=== PATIENT | female | born 1950 | race Two or more races ===

== ENCOUNTER 2021-02-28 17:39 | Inpatient (IN) | payer MEDICARE, OTHER ==
[~2021-02-28] VITALS: Ht 160 cm; Wt 70.3 kg
--- NOTE | 2021-02-28 17:50 | NUR ---
RT NOTE: PATIENT RECEIVED IN ER WITH PORTEX #[address] PATIENT PLACED ON MECHANICAL VENT. VENT SETTINGS: AC 18, VT 500, FI02 40%, +5 PEEP. VENT ALARMS SET AND AUDIBLE. AMBU BAG AT [facility].
[2021-02-28] MEDS ORDERED: *INS REG3 IJ (18:15)
[2021-02-28] MEDS ORDERED: ACET325T53 GT (18:15)
[2021-02-28] MEDS ORDERED: PANT40TA49 GT (18:15)
[2021-02-28] MEDS ORDERED: IPRA0.2S49 IH (18:15)
[2021-02-28] MEDS ORDERED: EPOE4000 IJ (18:15)
[2021-02-28] MEDS ORDERED: CHLO118L4 MM (18:15)
[2021-02-28] MEDS ORDERED: MICA100V3 IV (18:15)
[2021-02-28] MEDS ORDERED: LATA2.5D15 OP (18:15)
[2021-02-28] MEDS ORDERED: SEVE800T8 GT (18:15)
[2021-02-28] MEDS ORDERED: CEFT2.5V IV (18:15)
[2021-02-28] MEDS ORDERED: TOBR300A5 IH (18:15)
[2021-02-28] MEDS ORDERED: METR500T GT (18:15)
[2021-02-28] MEDS ORDERED: DORZ10DR10 OP (18:15)
[2021-02-28] MEDS ORDERED: ALBU1.257 IH (18:15)
[2021-02-28] MEDS ORDERED: METO-295 PO (18:15)
--- NOTE | 2021-02-28 18:16 | NUR ---
[id number] FRM DIALYSIS FOR NOTED HIGH BLOOD PRESSURE. UNABLE TO FINISH DIALYSIS. PT EYES CLOSED NON VERBAL. ON VENT O2 SAT 100%. PLACED ON RAW STOCK DRIER TENDER, SR. PT SEEN & EVAL'D BY DR. THAO. WILL CONT TO MONITOR.
[2021-02-28] MEDS ORDERED: CEFEPIME 1 GM in IV D5W 50 ML IV ONE (18:30)
[2021-02-28] MEDS ORDERED: VANCOMYCIN 1 GM in IV D5W 250 ML IV ONE (18:30)
[2021-02-28 19:21] LABS: CALCIUM, SERUM 9.6 mg/dL (8.5-10.1); CARBON DIOXIDE 28 mmol/L (21-32); CHLORIDE 99 mmol/L (98-107); CREATININE 1.8 mg/dL (0.6-1.3); GLUCOSE 145 mg/dL (74-106); POTASSIUM 3.5 mmol/L (3.5-5.1); SODIUM SERUM 139 mmol/L (136-145); UREA NITROGEN, BLOOD 35 mg/dL (7-18)
[2021-02-28 19:27] LABS: ALANINE AMINOTRANSFERASE 11 U/L (12-78); ALBUMIN 2.3 g/dL (3.4-5.0); ALKALINE PHOSPHATASE 263 U/L (46-116); ASPARTATE AMINOTRANSFERASE 17 U/L (15-37); BILIRUBIN,DIRECT 0.2 mg/dL (0.0-0.2); BILIRUBIN,TOTAL 0.6 mg/dL (0.2-1.0); TOTAL PROTEIN, SERUM 7.9 g/dL (6.4-8.2)
[2021-02-28 19:46] LABS: BASOPHILS % (AUTO) 0.1 % (0.0-2.0); EOSINOPHILS % (AUTO) 0.2 % (0.0-6.0); HEMATOCRIT 26 % (33-45); HEMOGLOBIN 8.2 g/dL (11.5-14.8); LYMPHOCYTES # (AUTO) 0.4 /CMM (0.8-4.8); LYMPHOCYTES % (AUTO) 1.6 % (20.0-44.0); MEAN CORPUSCULAR HGB CONC 32 g/dl (31.0-36.0); MEAN CORPUSCULAR VOLUME 91 fL (82-100); MONOCYTES # (AUTO) 0.2 /CMM (0.1-1.30); NEUTROPHILS # (AUTO) 23.5 /CMM (1.8-8.9); NEUTROPHILS % (AUTO) 97.1 % (43.0-81.0); PLATELET COUNT (AUTO) 383 /CMM (150-450); RED BLOOD CELL COUNT(AUTO) 2.88 MIL/uL (4.0-5.2); WHITE BLOOD COUNT (AUTO) 24.2 K/uL (4.3-11.0)
--- NOTE | 2021-02-28 19:48 | NUR ---
DR MARTINEZ PAGED PER DR THAO
[2021-02-28 20:10] LABS: BAND % (MANUAL) 4 % (0.0-5.0); LYMPHOCYTES % (MANUAL) 2 % (16-48); MONOCYTES % (MANUAL) 1 % (0-11.0); NEUTROPHILS % (MANUAL) 93 (42-76)
[2021-02-28] MEDS ORDERED: ACETAMINOPHEN 650 MG/20.3 ML UDC ONE (20:18)
[2021-02-28] MEDS ORDERED: ACETAMINOPHEN SUSP 80 MG/0.8 ML BOTTLE GT ONE (20:30)
[2021-02-28] MEDS ORDERED: IV NS 0.9% 1,000 ML BAG IV ONE (20:30)
--- NOTE | 2021-02-28 20:36 | NUR ---
MEDICATED FOR FEVER PER ERMD ORDER, PT RESHMA WELL. PT STABLE, RR EVEN & UNLABORED. ON TELE, SR. WILL CONT TO MONITOR.
[2021-02-28 21:54] LABS: BILIRUBIN,URINE NEGATIVE (NEGATIVE); COLOR,URINE YELLOW (YELLOW); LEUKOCYTE ESTERASE ,URINE MODERATE (NEGATIVE); NITRITE, URINE NEGATIVE (NEGATIVE); PROTEIN,URINE >=300 mg/dl (NEGATIVE); UGLUCOSE NEGATIVE (NEGATIVE); UROBILINOGEN,URINE 0.2 EU/dL (0.2)
[2021-02-28 21:59] LABS: BACTERIA,URINE 4+ /HPF (None Seen); SQUAMOUS EPITHELIAL CELL,UR 0-2 /HPF (None Seen); WBC,URINE 21-50 /HPF (0-3)
--- NOTE | 2021-02-28 22:08 | NUR ---
CALLED FLOOR TO GIVEN REPORT, RN NOT AVAILABLE.
--- NOTE | 2021-02-28 22:16 | NUR ---
REPORT GIVEN TO NIMA REDDY FOR OTIS.
[2021-02-28] MEDS ORDERED: EPOETIN ALFA (4000 UNIT) 4,000 UNIT/ML VIAL IJ SCH (23:00)
[2021-02-28] MEDS ORDERED: TEMAZEPAM 15 MG CAPSULE GT PRN (23:30)
[2021-02-28] MEDS ORDERED: ONDANSETRON HCL/PF 4 MG/2 ML VIAL IVP PRN (23:30)
[2021-03-01] VITALS: BP 143/46
[2021-03-01] MEDS ORDERED: ALBUTEROL HALF STRENGTH 1.25 MG/3 ML VIAL.NEB IH SCH
[2021-03-01] MEDS ORDERED: IPRATROPIUM NEB FS 0.5 MG/2.5 ML AMPUL.NEB IH SCH
--- NOTE | 2021-03-01 03:11 | NUR ---
RN notes Admitted a 71 yr old female from ER via stretcher with BP of 143/46, RR 26, HR 85 and an elevated temperature of 100.8. Tylenol was given at ER. On vent, tolerating well. No distress noted. Breathing even and unlabored. Obtunded. No physical manifestation of pain or discomfort. Skin assessment done. Noted with large sacrum pressure sore. Bed bath given. Kept clean and dry. Will endorse to next shift for continuity of care
[2021-03-01 04:00] VITALS: BP 145/28
[2021-03-01] MEDS: NEPRO 1,000 ML BOTTLE GT PRN (05:05)
[2021-03-01 06:43] LABS: BASOPHILS # (AUTO) 0.1 /CMM (0.0-0.2); BASOPHILS % (AUTO) 0.3 % (0.0-2.0); EOSINOPHILS % (AUTO) 0.3 % (0.0-6.0); HEMATOCRIT 22 % (33-45); HEMOGLOBIN 7.1 g/dL (11.5-14.8); LYMPHOCYTES # (AUTO) 1.5 /CMM (0.8-4.8); LYMPHOCYTES % (AUTO) 5.2 % (20.0-44.0); MEAN CORPUSCULAR HGB CONC 32 g/dl (31.0-36.0); MEAN CORPUSCULAR VOLUME 89 fL (82-100); MONOCYTES # (AUTO) 1.6 /CMM (0.1-1.30); MONOCYTES % (AUTO) 5.6 % (2.0-12.0); NEUTROPHILS # (AUTO) 25.5 /CMM (1.8-8.9); NEUTROPHILS % (AUTO) 88.6 % (43.0-81.0); PLATELET COUNT (AUTO) 337 /CMM (150-450); WHITE BLOOD COUNT (AUTO) 28.8 K/uL (4.3-11.0)
[2021-03-01 07:28] LABS: CALCIUM, SERUM 9.2 mg/dL (8.5-10.1); CARBON DIOXIDE 28 mmol/L (21-32); CHLORIDE 100 mmol/L (98-107); CREATININE 2.2 mg/dL (0.6-1.3); GLUCOSE 139 mg/dL (74-106); MAGNESIUM 2.3 mg/dL (1.8-2.4); PHOSPHORUS 1.9 mg/dL (2.5-4.9); POTASSIUM 3.2 mmol/L (3.5-5.1); SODIUM SERUM 134 mmol/L (136-145); UREA NITROGEN, BLOOD 39 mg/dL (7-18)
[2021-03-01 07:29] LABS: CHOLESTEROL 87 mg/dL (<200); HDL CHOLESTEROL 25 mg/dL (40-60); LDL 32 mg/dL (0-99); THYROID STIMULATING HORMONE 1.112 uIU/mL (0.358-3.74); TRIGLYCERIDES 278 mg/dL (30-150)
[2021-03-01] MEDS ORDERED: PANTOPRAZOLE 40 MG TABLET.DR PO SCH (07:30)
[2021-03-01] MEDS: IPRATROPIUM NEB FS 0.5 MG/2.5 ML AMPUL.NEB NEB SCH ×3 (07:51→19:59)
[2021-03-01] MEDS: ALBUTEROL FS 2.5 MG/3 ML VIAL.NEB NEB SCH ×3 (07:52→19:59)
[2021-03-01 08:00] VITALS: BP 144/33
[2021-03-01] MEDS ORDERED: POTASSIUM CHLORIDE 20 MEQ TAB.PRT.SR PO ONE (08:00)
[2021-03-01 08:52] LABS: IRON, SERUM 15 ug/dl (50-175); TOTAL IRON BINDING CAPACITY 92 ug/dl (250-450)
[2021-03-01] MEDS ORDERED: CEFEPIME 1 GM in IV D5W 50 ML IV SCH ×2 (09:00→18:00)
[2021-03-01] MEDS: HEPARIN SODIUM, PORCINE 5000 UNITS/1 ML VIAL SQ SCH ×2 (09:00→21:41)
[2021-03-01] MEDS: METOCLOPRAMIDE HCL 10 MG TABLET PO SCH ×3 (09:40→17:40)
[2021-03-01] MEDS: SEVELAMER CARBONATE 800 MG POWD.PACK GT SCH ×3 (09:40→17:39)
[2021-03-01] MEDS: CHLORHEXIDINE GLUCONATE 15 ML UDC MM SCH ×2 (09:40→17:38)
[2021-03-01] MEDS: DORZOLAMIDE OPTH 2% 10 ML BOTTLE OP SCH ×2 (09:41→17:39)
[2021-03-01] MEDS ORDERED: POTASSIUM CHLORIDE 20 MEQ POWDER PACKET GT ONE (10:00)
--- NOTE | 2021-03-01 10:20 | NUR ---
RN NOTE HELD HEPARIN HGB 7.1
[2021-03-01 12:00] VITALS: BP 161/44
[2021-03-01] MEDS ORDERED: HYDR100T27 PO (12:20)
[2021-03-01] MEDS ORDERED: ISOS20TA8 PO (12:20)
[2021-03-01] MEDS ORDERED: AMLO-213 PO (12:20)
[2021-03-01] MEDS ORDERED: MINO2.5T PO (12:20)
[2021-03-01] MEDS ORDERED: CARV25TA2 PO (12:20)
[2021-03-01] MEDS ORDERED: CLON0.2T PO (12:20)
[2021-03-01 16:00] VITALS: BP 164/40
[2021-03-01] MEDS ORDERED: NEUTRA PHOS 1 POWD.PACKET GT ONE (16:00)
--- NOTE | 2021-03-01 16:34 | NUR ---
RN NOTE CONTACTED MD TO RECONCILE MEDICATIONS. NO BP MEDS ON MAR
--- NOTE | 2021-03-01 17:46 | NUR ---
RT END OF THE SHIFT REPORT, PT. 71 Y OLD FEMALE TRACH PORTEX # 7 ON VENT WITH NOTED SETTINGS, ALARMS ARE SET AND FUNCTIONAL, EQUAL CHEST RISE NOTED, VENT PLUGGED INTO RED OUTLET, AMBU BAG REMAIN AT THE BEDSIDE. B/S DIMINISHED BILATERALLY TX'S GIVEN INLINE RESHMA. WELL NO ADVERSE REACTION NOTED. FAMILY MEMBER AT THE BEDSIDE. SUCTIONED FOR MINIMAL AMOUNT OF SECRETIONS, NO DISTRESS NOTED T/O DAY HME CHANGED, STEAM PIPE FITTER DONE, PT. RESHMA. VENT SETTINGS WITH NO CHANGES. REPORT WILL BE PASS TO SUPERVISOR RECORDS CHANGE. Addendum: 03/01/21 at 1749 by TYSON REA RT Amended: Links added.
[2021-03-01] MEDS: AMLODIPINE BESYLATE 10 MG TABLET PO SCH (18:52)
[2021-03-01] MEDS: hydrALAZINE HCL 50 MG TABLET PO SCH (18:53)
[2021-03-01] MEDS ORDERED: MINOXIDIL (2.5MG) 2.5 MG TABLET PO PRN (19:00)
[2021-03-01 20:00] VITALS: BP_SYST 151; BP_DIAS 56; BP_DIAS 72
[2021-03-01] MEDS ORDERED: VANCOMYCIN HCL 0.75 GM in IV D5W 250 ML IV SCH (20:00)
[2021-03-01] MEDS ORDERED: MEROPENEM 500 MG in IV NS 0.9% 50 ML IV ONE (21:00)
[2021-03-01] MEDS: CARVEDILOL 12.5 MG TABLET PO SCH (21:39)
--- NOTE | 2021-03-01 21:40 | NUR ---
RN NOTES, PATIENT ENDORSED TO JOSÉ LUIS IN STABLE CONDITION FOR CONTINUATION OF CARE.
[2021-03-01] MEDS: LATANOPROST EYE DROP 0.005% 2.5 ML BOTTLE OP SCH (21:41)
--- NOTE | 2021-03-01 21:45 | NUR ---
RN NOTE RECEIVED PT IN BED, PT OPENS HER EYES TO TOUCH, ON VENT VIA TRACH SATING 100%, PT HAS G TUBE FEEDING NEPRO AT 40 ML/HR CHECKED FOR REPLACEMENT, SAFETY MEASURES IN PLACE.
[2021-03-01] MEDS ORDERED: MEROPENEM 500 MG VIAL IV ONE (22:16)
--- NOTE | 2021-03-01 23:02 | NUR ---
rn note received lab for blood cx gram negative kulwinder, informed dr scott, no new order at this time.
[2021-03-02] VITALS (8 sets, daily range): BP systolic 125–173; BP diastolic 31–62
[2021-03-02] MEDS: IPRATROPIUM NEB FS 0.5 MG/2.5 ML AMPUL.NEB NEB SCH ×4 (01:58→20:15)
[2021-03-02] MEDS: ALBUTEROL FS 2.5 MG/3 ML VIAL.NEB NEB SCH ×4 (01:58→20:15)
[2021-03-02 06:32] LABS: BASOPHILS # (AUTO) 0.1 /CMM (0.0-0.2); BASOPHILS % (AUTO) 0.4 % (0.0-2.0); EOSINOPHILS % (AUTO) 0.7 % (0.0-6.0); HEMATOCRIT 22 % (33-45); LYMPHOCYTES # (AUTO) 1.5 /CMM (0.8-4.8); LYMPHOCYTES % (AUTO) 10.7 % (20.0-44.0); MEAN CORPUSCULAR HGB CONC 32 g/dl (31.0-36.0); MEAN CORPUSCULAR VOLUME 89 fL (82-100); MONOCYTES # (AUTO) 1.3 /CMM (0.1-1.30); MONOCYTES % (AUTO) 8.9 % (2.0-12.0); NEUTROPHILS # (AUTO) 11.5 /CMM (1.8-8.9); NEUTROPHILS % (AUTO) 79.3 % (43.0-81.0); PLATELET COUNT (AUTO) 350 /CMM (150-450); RED BLOOD CELL COUNT(AUTO) 2.47 MIL/uL (4.0-5.2); WHITE BLOOD COUNT (AUTO) 14.5 K/uL (4.3-11.0)
[2021-03-02 06:47] LABS: CALCIUM, SERUM 9.2 mg/dL (8.5-10.1); CARBON DIOXIDE 27 mmol/L (21-32); CHLORIDE 103 mmol/L (98-107); CREATININE 2.7 mg/dL (0.6-1.3); GLUCOSE 92 mg/dL (74-106); MAGNESIUM 2.5 mg/dL (1.8-2.4); POTASSIUM 4.1 mmol/L (3.5-5.1); SODIUM SERUM 140 mmol/L (136-145); UREA NITROGEN, BLOOD 50 mg/dL (7-18)
--- NOTE | 2021-03-02 06:49 | NUR ---
RN NOTE RECEIVED LAB RESULT HGB 7.0, INFORMED DR VANCE NO NEW ORDER.
--- NOTE | 2021-03-02 07:18 | NUR ---
RN REPORT GIVEN TO ONCOMING SHIFT FOR OTIS.
[2021-03-02] MEDS: PANTOPRAZOLE 40 MG/PACK PACK GT SCH (08:20)
[2021-03-02] MEDS: CHLORHEXIDINE GLUCONATE 15 ML UDC MM SCH ×2 (08:20→16:32)
[2021-03-02] MEDS: CARVEDILOL 12.5 MG TABLET PO SCH ×2 (08:21→20:14)
[2021-03-02] MEDS: SEVELAMER CARBONATE 800 MG POWD.PACK GT SCH ×3 (08:21→17:31)
[2021-03-02] MEDS: hydrALAZINE HCL 50 MG TABLET PO SCH ×3 (08:21→17:29)
[2021-03-02] MEDS: ISOSORBIDE DINITRATE (20MG) 20 MG TABLET PO SCH ×3 (08:21→17:29)
[2021-03-02] MEDS: METOCLOPRAMIDE HCL 10 MG TABLET PO SCH ×3 (08:21→17:32)
[2021-03-02] MEDS: DORZOLAMIDE OPTH 2% 10 ML BOTTLE OP SCH ×2 (08:23→16:33)
[2021-03-02] MEDS: HEPARIN SODIUM, PORCINE 5000 UNITS/1 ML VIAL SQ SCH ×2 (08:27→20:38)
--- NOTE | 2021-03-02 09:19 | NUR ---
RN OPENING NOTE RECEIVED REPORT FROM PM NURSE.PATIENT IN BED.AWAKE.NON VERBAL.TRACH TO VENT DEPENDANT.BREATHING EVEN AND NORMAL.NO SOB NO DISTRESS NOTED.TOLERATING SETTINGS WELL.IV LINE ON XIOMARA PICCLINE IS INTACT AND PATENT.ON GTF NEPRO@40ML/HR.BED IS LOW AND IN LOCKED POSITION.CALL LIGHT IN REACH.BED ALARM IS ON.SEX3.WILL CONTINUE TO MONITOR.
[2021-03-02 09:50] LABS: BAND % (MANUAL) 2 % (0.0-5.0); LYMPHOCYTES % (MANUAL) 9 % (16-48); MONOCYTES % (MANUAL) 7 % (0-11.0); MYELOCYTES % 1 % (0-0); NEUTROPHILS % (MANUAL) 81 (42-76)
[2021-03-02] MEDS: PROSOURCE / PROSTAT (PYXIS) 30 ML UDC GT SCH ×2 (12:48→16:32)
--- NOTE | 2021-03-02 13:00 | NUR ---
EN NOTE BLADER SCAN DONE.170ML.WILL CONTINUE TO MONITOR.
--- NOTE | 2021-03-02 16:00 | NUR ---
RN NOTE MADE AWARE ABOUT PATIENT HGB AND PLATELET COUNT .OK TO GIVE HEPARIN.WILL CONTINUE TO MONITOR.
[2021-03-02] MEDS: CLONIDINE HCL 0.1 MG TABLET PO PRN (16:32)
[2021-03-02] MEDS: NEPRO 1,000 ML BOTTLE GT PRN (17:15)
[2021-03-02] MEDS: AMLODIPINE BESYLATE 10 MG TABLET PO SCH (17:31)
--- NOTE | 2021-03-02 18:37 | NUR ---
RN CLOSING NOTE PATIENT IN BED.AWAKE.NON VERBAL.TRACH TO VENT DEPENDANT.BREATHING EVEN AND NORMAL.NO SOB NO DISTRESS NOTED.TOLERATING SETTINGS WELL.IV LINE ON XIOMARA PICCLINE IS INTACT AND PATENT.ON GTF NEPRO@40ML/HR.BED IS LOW AND IN LOCKED POSITION.CALL LIGHT IN REACH.BED ALARM IS ON.SRX3.FAMILY AT BEDSIDE.BP WAS HIGH.PRN BP MEDS GIVEN .BP 161/56.PROGRESSING EXPECTED.WOUND CULTURE COLLECTED FOR SACRAL WOUND.WILL ENDORSE TO PM NURSE FOR OTIS.
--- NOTE | 2021-03-02 19:20 | NUR ---
RN OPENING NOTE RECEIVED PATIENT IN BED RESTING ALERT ORIENTED XO NONVERBAL ON MECHANICAL VENT TRACH PORTEX #7 AC 18 TV 500 FIO2:40% PEEP 5 O2:100% IV SITE IS ON LEFT UPPER ARM PICC LINE INTACT PATENT ON G-TUBE FEEDING ON NEPRO 40CC/HR CHECKED PLACEMENT IN PLACE NO RESIDUAL NOTED, HEAD OF THE BED ELEVATED,SAFETY MEASURE IMPALEMENT BED IN LOW POSITION AND LOCKED CONTINUE TO MONITOR.
--- NOTE | 2021-03-02 20:00 | NUR ---
RN NOTE BLADDER SCAN DONE 0ML URINE IN BLADDER CONTINUE TO MONITOR.
--- NOTE | 2021-03-02 20:30 | NUR ---
RN NOTE LAB CALLED WITH REPORT PATIENT BLOOD CULTURE IS GRAM NEGATIVE BASILICUS NOTIFIED RILEY WALDEN WITH NO NEW ORDER CONTINUE TO MONITOR
[2021-03-02] MEDS: HYDROCODONE/APAP 5/325MG TABLET GT PRN (20:45)
[2021-03-02] MEDS ORDERED: MEROPENEM 500 MG in IV NS 0.9% 50 ML IV SCH (21:00)
[2021-03-02] MEDS: LATANOPROST EYE DROP 0.005% 2.5 ML BOTTLE OP SCH (21:25)
--- NOTE | 2021-03-02 23:11 | NUR ---
RN NOTE GAVE REPORT TO YOLANDE FOR CONTINUATION OF CARE.
--- NOTE | 2021-03-02 23:25 | NUR ---
RN NOTES, RECEIVED PATIENT FROM SALINA RN FOR CONTINUATION OF CARE, PATIENT ASLEEP AROUSABLE TO TACTILE STIMULI, ON MECHANICAL VENTILATOR WITH NO DISTRESS, WILL CONTINUE TO MONITOR CLOSELY.
[2021-03-03] VITALS (10 sets, daily range): BP systolic 102–168; BP diastolic 33–82
[2021-03-03] MEDS: CLONIDINE HCL 0.1 MG TABLET PO PRN
[2021-03-03] MEDS: IPRATROPIUM NEB FS 0.5 MG/2.5 ML AMPUL.NEB NEB SCH ×4 (02:16→20:05)
[2021-03-03] MEDS: ALBUTEROL FS 2.5 MG/3 ML VIAL.NEB NEB SCH ×4 (02:16→20:05)
[2021-03-03 06:43] LABS: CALCIUM, SERUM 9.4 mg/dL (8.5-10.1); CARBON DIOXIDE 28 mmol/L (21-32); CHLORIDE 103 mmol/L (98-107); CREATININE 3.2 mg/dL (0.6-1.3); GLUCOSE 129 mg/dL (74-106); POTASSIUM 4.7 mmol/L (3.5-5.1); SODIUM SERUM 142 mmol/L (136-145); UREA NITROGEN, BLOOD 63 mg/dL (7-18)
--- NOTE | 2021-03-03 06:45 | NUR ---
RN CLOSING NOTE, PATIENT ON MECHANICAL VENTILATOR, NONVERBAL ASLEEP, AROUSABLE TO TACTILE STIMULI, NO SIGNS OF RESP DISTRESS OR SOB, NSR IN TELE MONITOR THROUGHOUT THE NIGHT, NO SIGNIFICANT CHANGE IN CONDITION DURING THE NIGHT, ON Q8HR BLADDER SCAN WITH ORDER TO STRAIGHT CATH IF MORE THAN 300ML, SO FAR A SMALL AMOUNT OF URINE NOTED IN THE LAST CHECK, ALL SAFETY PRECAUTIONS IN PLACE, HOB ELEVATED AT ALL TIMES, WILL ENDORSE CONTINUITY OF CARE TO ONCOMING NURSE.
--- NOTE | 2021-03-03 08:00 | NUR ---
PATIENT OBSERVED IN BED, AWAKE, RESPONSIVE TO TOUCH, UNABLE TO VERBALIZE NEEDS, NEEDS ANTICIPATED, HOB ELEVATED FOR ASPIRATION PRECAUTION ON GT FEEDING PATENT UPON AUSCULTATION, LEFT UPPER ARM PICC LINE PATENT, ON HEMO DIALYSIS, ON TRACHEOSTOMY WITH MECHANICAL VENTILATOR, BREATHING EVEN AND UNLABORED, WILL CONTINUE TO MONITOR RESIDENT, BED LOW,CALL LIGHT WITHIN REACH, SAFETY MEASURES OBSERVED.
[2021-03-03] MEDS: SEVELAMER CARBONATE 800 MG POWD.PACK GT SCH ×3 (08:58→17:29)
[2021-03-03] MEDS: METOCLOPRAMIDE HCL 10 MG TABLET PO SCH ×3 (08:58→17:29)
[2021-03-03] MEDS: HEPARIN SODIUM, PORCINE 5000 UNITS/1 ML VIAL SQ SCH ×2 (09:00→21:00)
[2021-03-03] MEDS: PANTOPRAZOLE 40 MG/PACK PACK GT SCH (09:03)
[2021-03-03] MEDS: CHLORHEXIDINE GLUCONATE 15 ML UDC MM SCH ×2 (09:04→17:29)
[2021-03-03] MEDS: CARVEDILOL 12.5 MG TABLET PO SCH ×2 (09:05→20:58)
[2021-03-03] MEDS: hydrALAZINE HCL 50 MG TABLET PO SCH ×3 (09:06→17:30)
[2021-03-03] MEDS: ISOSORBIDE DINITRATE (20MG) 20 MG TABLET PO SCH ×3 (09:06→17:30)
[2021-03-03] MEDS: PROSOURCE / PROSTAT (PYXIS) 30 ML UDC GT SCH ×3 (09:08→17:29)
[2021-03-03] MEDS: DORZOLAMIDE OPTH 2% 10 ML BOTTLE OP SCH ×2 (09:20→17:40)
--- NOTE | 2021-03-03 09:38 | NUR ---
SUMI RN NOTE DR FABIAN NOTIFIED THAT YESTERDAY HG 7.0 ORDERED TO TRANSFUSE 1 UNIT PRBC ALSO ORDERED HOLD HEPARIN AT THIS TIME, WOUND CARE NURSE AT BEDSIDE NEW ORDER GIVEN ,HD NURSE AT BEDSIDE WILL START HD ORDERED WILL CONT TO MONITOR
--- NOTE | 2021-03-03 09:42 | NUR ---
WOUND CARE CONSULT: PT PRESENTS WITH SACRAL STAGE 4 ULCER AND MULTIPLE AREAS OF DISCOLORATION TO EXTREMITIES WELL RASHES TO ABDOMINAL/GROIN FOLDS, BUTTOCKS AND PERINEUM, PRESENT ON ADMISSION. DR CAREN MARTINEZ NOTIFIED OF SURGICAL CONSULT FOR SACRAL WOUND. RECOMMENDATIONS MADE FOR SKIN PROTECTION AND WOUND CARE. DISCUSSED WITH NURSING STAFF. FIRST STEP LOW AIRLOSS MATTRESS IS ON ORDER. MD IN AGREEMENT WITH PLAN OF CARE.
--- NOTE | 2021-03-03 10:00 | NUR ---
REFORESTATION WORKER NOTE UNABLE TO DO BLADDER SCAN ,PATIENT HAS HD AT THIS TIME
[2021-03-03] MEDS: DAKINS QUARTER STRENGTH (0.125%) 480 ML BOTTLE TOP SCH (10:57)
--- NOTE | 2021-03-03 11:50 | NUR ---
INTEGRATED LOGISTICS PROGRAMS DIRECTOR NOTE HD COMPLETED 1L OF FLUIDS REMOVED BP 120/78
--- NOTE | 2021-03-03 13:00 | NUR ---
POSTDOCTORAL RESEARCH ASSOCIATE NOTE US LT ARM DOING NOW PER MD ORDER NOTED PICC LINE IS NOT WORKING WELL OK TO REINSERT NEW LINE
[2021-03-03] MEDS: ACETAMINOPHEN 325 MG TABLET MC PRN (13:12)
--- NOTE | 2021-03-03 14:12 | NUR ---
RESTAURANT OPERATIONS MANAGER NOTE ASSESS BLOOD TRASNFUSION REACTION TEMP OF 102.8, HR OF 101 STOP INFUSION PER PROTOCOL, DR. BEACH, CAREN MADE AWARE, OK TO STOP INFUSION, ORDERED BLOOD TRANSFUSION REACTION WORK UP STAT, ORDER NOTED AND CARRIED OUT, PATIENT EVEN AND UNLABORED REACTION, NOT IN DISTRESS. WILL CONTINUE TO MONITOR, LEFT UPPER ARM ULTRASOUND DONE, MD AWARE WAITING FOR FURTHER ORDERS.
[2021-03-03] MEDS ORDERED: EPOETIN ALFA (10,000 UNIT) 10,000 UNIT/ML VIAL IV ONE (14:30)
[2021-03-03] MEDS ORDERED: EPOETIN ALFA (4000 UNIT) 4,000 UNIT/ML VIAL IJ SCH (15:00)
--- NOTE | 2021-03-03 15:21 | NUR ---
PER DR. BEACH HOLD DISCHARGE DUE TO FEVER DURING BLOOD TRANSFUSION AND WITH PRELIMINARY REPORT DVT LEFT UPPER ARM
[2021-03-03] MEDS ORDERED: GENTAMICIN 120 MG in IV D5W 100 ML IV ONE (16:00)
--- NOTE | 2021-03-03 16:45 | NUR ---
telephone installer note called to dr Fan notifyed that patient has tremors upper enormities order Ativan 1 mg ivp order carried out
--- NOTE | 2021-03-03 16:48 | NUR ---
CAREER RESOURCE SPECIALIST NOTE ATIVAN GIVEN ORDERED, BP OF 125/59, HR OF 89, 02 SAT OF 98, RESPIRATION OF 21, BREATHING EVEN AND UNLABORED, WILL CONTINUE TO MONITOR.
[2021-03-03] MEDS ORDERED: LORAZEPAM INJ 2 MG/ML VIAL IV ONE (17:00)
[2021-03-03] MEDS: AMLODIPINE BESYLATE 10 MG TABLET PO SCH (17:30)
--- NOTE | 2021-03-03 17:30 | NUR ---
telemedicine physician note mid line inserted on rt upper arm and old picc line on lt side removed ,dry dressing applied no bleeding noted
[2021-03-03] MEDS: CLOTRIMAZOLE 1% 15 GM TUBE TP SCH (17:40)
--- NOTE | 2021-03-03 18:29 | NUR ---
JACKHAMMER OPERATOR NOTE BLADDER SCAN OF 48CC DONE ORDERED.
[2021-03-03] MEDS ORDERED: ACETAMINOPHEN 325 MG TABLET MC PRN (18:30)
--- NOTE | 2021-03-03 18:30 | NUR ---
HIGH SPEED PRINTER OPERATOR NOTE Savanna LLANES. AT BEDSIDE, CHANGE ACETAMINOPHEN ORDER TO 625MG Q4H FOR MILD PAIN AND FEVER, ORDERS NOTED AND CARRIED OUT, ORDERED HOLD DISCHARGE AT THIS TIME.
--- NOTE | 2021-03-03 18:53 | NUR ---
FRUIT HARVESTER MACHINE OPERATOR NOTE PATIENT OBSERVED ON BED, AWAKE AND RESPONSIVE TO TOUCH, ON TELE MONITOR SR HR OF 89, TEMP OF 100.8, RESPIRATION OF 19, 02 SAT OF 98%, COOLING MEASURE DONE, CLARIFYING ACETAMINOPHEN ORDER PER PHARMACY RECOMMENDATION FOR FEVER WITH MD AWAITING ORDER. EVEN AND UNLABORED RESPIRATION, HOLD GT FEEDING FOR RESIDUAL, GT FEEDING PATENT, SAFETY MEASURES OBSERVED, CALL LIGHT WITHIN REACH , WILL CONTINUE TO MONITOR RESIDENT, WILL ENDORSE TO NEXT SHIFT,
--- NOTE | 2021-03-03 19:16 | NUR ---
WELDER FITTER APPRENTICE NOTE DVT ON LEFT UPPER ARM, NO BP TAKING ON LEFT ARM, PICC LINE NOT PATENT, MIDLINE INSERTED ON RIGHT UPPER ARM PATENT AND INFUSING WELL, WILL ENDORSE TO NEXT SHIFT.
[2021-03-03] MEDS ORDERED: ACETAMINOPHEN 650 MG/20.3 ML UDC GT PRN (19:30)
[2021-03-03] MEDS ORDERED: IBUPROFEN 400 MG TABLET GT PRN (19:30)
--- NOTE | 2021-03-03 20:00 | NUR ---
OLIVE PACKER NOTE PT IN BED OBTUNDED. NO FEVER NOTED. ON TELE SR. TOLERATING VENT/TRACH SETTINGS. NO DISTRESS OR DISCOMFORT NOTED. NO S/S OF PAIN NOTED. NEPRO GTF INFUSING AT 40 ML/HR, 0 ML RESIDUAL NOTED. KEPT HER DRY AND CLEAN. SIDE RAILS UP X 3 AND CALL LIGHT WITHIN REACH. WILL CONTINUE TO MONITOR HER.
[2021-03-03] MEDS: CEFEPIME 1 GM in IV D5W 50 ML IV SCH (20:25)
[2021-03-03] MEDS: LATANOPROST EYE DROP 0.005% 2.5 ML BOTTLE OP SCH (21:13)
--- NOTE | 2021-03-03 23:00 | NUR ---
REFRIGERATION LEAD NOTE BLADDER SCAN DONE 83 ML ONLY.
--- NOTE | 2021-03-03 23:35 | NUR ---
CHICKEN HANGER NOTE PT ENDORSE TO NURSE ORDONEZ FOR CONTINUE TO CARE FOR THE PT.
[2021-03-04] VITALS: BP 114/27
[2021-03-04] MEDS: ALBUTEROL FS 2.5 MG/3 ML VIAL.NEB NEB SCH ×4 (01:56→19:09)
[2021-03-04] MEDS: IPRATROPIUM NEB FS 0.5 MG/2.5 ML AMPUL.NEB NEB SCH ×4 (01:56→19:09)
[2021-03-04 04:00] VITALS: BP 124/30
--- NOTE | 2021-03-04 04:00 | NUR ---
bladder scan done no residual noted.
[2021-03-04] MEDS: NEPRO 1,000 ML BOTTLE GT PRN (05:58)
[2021-03-04] MEDS ORDERED: VANCOMYCIN POST DIALYSIS 500MG IV PRN (06:00)
[2021-03-04] MEDS ORDERED: GENTAMICIN 80 MG in IV D5W 50 ML IV PRN (06:00)
[2021-03-04 06:26] LABS: BASOPHILS # (AUTO) 0.1 /CMM (0.0-0.2); BASOPHILS % (AUTO) 0.3 % (0.0-2.0); EOSINOPHILS % (AUTO) 0.5 % (0.0-6.0); HEMATOCRIT 24 % (33-45); HEMOGLOBIN 7.5 g/dL (11.5-14.8); LYMPHOCYTES # (AUTO) 1.5 /CMM (0.8-4.8); MEAN CORPUSCULAR HGB CONC 31 g/dl (31.0-36.0); MEAN CORPUSCULAR VOLUME 91 fL (82-100); MONOCYTES # (AUTO) 1.4 /CMM (0.1-1.30); MONOCYTES % (AUTO) 5.6 % (2.0-12.0); NEUTROPHILS # (AUTO) 22.3 /CMM (1.8-8.9); NEUTROPHILS % (AUTO) 87.6 % (43.0-81.0); PLATELET COUNT (AUTO) 388 /CMM (150-450); RED BLOOD CELL COUNT(AUTO) 2.63 MIL/uL (4.0-5.2); WHITE BLOOD COUNT (AUTO) 25.5 K/uL (4.3-11.0)
[2021-03-04 07:01] LABS: CALCIUM, SERUM 9.3 mg/dL (8.5-10.1); CARBON DIOXIDE 26 mmol/L (21-32); CHLORIDE 101 mmol/L (98-107); CREATININE 2.5 mg/dL (0.6-1.3); GLUCOSE 150 mg/dL (74-106); MAGNESIUM 2.5 mg/dL (1.8-2.4); PHOSPHORUS 2.6 mg/dL (2.5-4.9); POTASSIUM 3.8 mmol/L (3.5-5.1); SODIUM SERUM 138 mmol/L (136-145); UREA NITROGEN, BLOOD 46 mg/dL (7-18)
--- NOTE | 2021-03-04 07:19 | NUR ---
report given to oncoming shift for tico.
--- NOTE | 2021-03-04 07:25 | NUR ---
RN OPENING NOTES RECEIVED PT IN BED. OBTUNDED. RESPONSIVE TO TOUCH. TOLERATING VENT SETTINGS WELL. NO SOB OR ANY S/S OF RESPIRATORY DISTRESS. HOB ELEVATED. GT CHECKED BY AUSCULTATION. TOLERATING FEEDING WELL. NASEEM MIDLINE INTACT AND PATENT. SAFETY MEASURES OBSERVED. CALL LIGHT WITHIN REACH. BED LOCKED AND IN LOWEST POSITION WITH SIDE RAILS UP X3. WILL CONTINUE TO MONITOR.
[2021-03-04 08:00] VITALS: BP 141/39
[2021-03-04] MEDS: CHLORHEXIDINE GLUCONATE 15 ML UDC MM SCH ×2 (08:47→17:05)
[2021-03-04] MEDS: SEVELAMER CARBONATE 800 MG POWD.PACK GT SCH ×3 (08:47→17:51)
[2021-03-04] MEDS: PANTOPRAZOLE 40 MG/PACK PACK GT SCH (08:47)
[2021-03-04] MEDS: METOCLOPRAMIDE HCL 10 MG TABLET PO SCH ×3 (08:47→17:51)
[2021-03-04] MEDS: DORZOLAMIDE OPTH 2% 10 ML BOTTLE OP SCH ×2 (08:49→17:05)
[2021-03-04] MEDS: PROSOURCE / PROSTAT (PYXIS) 30 ML UDC GT SCH ×3 (08:49→17:05)
[2021-03-04] MEDS: CLOTRIMAZOLE 1% 15 GM TUBE TP SCH ×2 (08:49→17:05)
[2021-03-04] MEDS: DAKINS QUARTER STRENGTH (0.125%) 480 ML BOTTLE TOP SCH (08:49)
[2021-03-04] MEDS: ISOSORBIDE DINITRATE (20MG) 20 MG TABLET PO SCH ×3 (09:00→17:00)
[2021-03-04] MEDS: HEPARIN SODIUM, PORCINE 5000 UNITS/1 ML VIAL SQ SCH ×2 (09:00→21:00)
[2021-03-04] MEDS: CARVEDILOL 12.5 MG TABLET PO SCH ×2 (11:25→21:00)
[2021-03-04] MEDS: hydrALAZINE HCL 50 MG TABLET PO SCH ×3 (11:26→17:00)
[2021-03-04 12:00] VITALS: BP 153/53
--- NOTE | 2021-03-04 12:00 | NUR ---
RN NOTES BLADDER SCAN DONE, 0ML NOTED.
[2021-03-04] MEDS: FLUCONAZOLE (100 MG) 100 MG TABLET PO SCH (12:33)
[2021-03-04 16:00] VITALS: BP 155/52
[2021-03-04] MEDS ORDERED: LIDOCAINE 1%-EPI 1:100,000 20 ML VIAL TP ONE (16:00)
--- NOTE | 2021-03-04 16:00 | NUR ---
RN NOTES PT STARTED HD. VS STABLE
--- NOTE | 2021-03-04 16:10 | NUR ---
RN NOTES OBTAINED CONSENT FOR HD CATH REMOVAL FROM THE DAUGHTER. CONSENT PLACED IN THE CHART.
--- NOTE | 2021-03-04 17:00 | NUR ---
RN NOTES HYDRALAZINE AND ISORDIL ON HOLD. PT ON HD. BP 124/75.
[2021-03-04] MEDS: AMLODIPINE BESYLATE 10 MG TABLET PO SCH (17:53)
--- NOTE | 2021-03-04 18:00 | NUR ---
RN NOTES HD DONE. VS STABLE. BP OF 129/77.
--- NOTE | 2021-03-04 19:40 | NUR ---
RECEIVED PT IN BED OBTUNDED, OPENS EYES TO TOUCH. PT IS ON VENT VIA TRACH WITH FIO2 35%.. SATING 98%.PT IS ON TUBE FEEDING NEPRO AT 40 ML/HR, CHECKED FOR REPLACEMENT AND NO RESIDUAL NOTED. SAFETY MEASURES IN PLACE. WILL CONTINUE WITH PLAN OF CARE.
--- NOTE | 2021-03-04 19:45 | NUR ---
RN CLOSING NOTES NO SIGNIFICANT CHANGES THROUGHOUT THE SHIFT. TOLERATING VENT SETTINGS WELL. NO SOB OR ANY DISTRESS. ALL DUE MEDS GIVEN. NEEDS ATTENDED. SAFETY MEASURES STILL IN PLACE. WILL ENDORSE TO NIGHT RN FOR OTIS.
[2021-03-04] MEDS: ACETAMINOPHEN 325 MG TABLET MC PRN (19:58)
[2021-03-04 20:00] VITALS: BP 155/64
[2021-03-04] MEDS: CEFEPIME 1 GM in IV D5W 50 ML IV SCH (20:10)
[2021-03-04] MEDS: LATANOPROST EYE DROP 0.005% 2.5 ML BOTTLE OP SCH (21:01)
--- NOTE | 2021-03-04 21:02 | NUR ---
HEPARIN NOT ADMINISTERED, PTs PERMACATH WILL BE REMOVED D/T PERSISTENT SEPSIS. DR ANABELL MUKHERJEE IS AWARE, PER DR MUKHERJEE IS OK TO HOLD HEPARIN.
--- NOTE | 2021-03-04 23:00 | NUR ---
bladder scan done 60 ml residual noted.
[2021-03-05] VITALS: BP 114/58
[2021-03-05] MEDS: ALBUTEROL FS 2.5 MG/3 ML VIAL.NEB NEB SCH ×4 (01:47→19:58)
[2021-03-05] MEDS: IPRATROPIUM NEB FS 0.5 MG/2.5 ML AMPUL.NEB NEB SCH ×4 (01:47→19:59)
[2021-03-05 04:00] VITALS: BP 116/54
--- NOTE | 2021-03-05 04:30 | NUR ---
bladder scan done, approximately 320 ml residual noted, straight cath performed.
[2021-03-05] MEDS: NEPRO 1,000 ML BOTTLE GT PRN (05:46)
[2021-03-05 06:45] LABS: BASOPHILS # (AUTO) 0.1 /CMM (0.0-0.2); BASOPHILS % (AUTO) 0.3 % (0.0-2.0); EOSINOPHILS % (AUTO) 0.2 % (0.0-6.0); HEMATOCRIT 24 % (33-45); HEMOGLOBIN 7.5 g/dL (11.5-14.8); LYMPHOCYTES % (AUTO) 5.7 % (20.0-44.0); MEAN CORPUSCULAR HGB CONC 31 g/dl (31.0-36.0); MEAN CORPUSCULAR VOLUME 91 fL (82-100); MONOCYTES # (AUTO) 1.9 /CMM (0.1-1.30); MONOCYTES % (AUTO) 5.3 % (2.0-12.0); NEUTROPHILS # (AUTO) 31.4 /CMM (1.8-8.9); NEUTROPHILS % (AUTO) 88.5 % (43.0-81.0); PLATELET COUNT (AUTO) 425 /CMM (150-450); RED BLOOD CELL COUNT(AUTO) 2.61 MIL/uL (4.0-5.2)
[2021-03-05 06:54] LABS: ALANINE AMINOTRANSFERASE 8 U/L (12-78); ALBUMIN 2.1 g/dL (3.4-5.0); ALKALINE PHOSPHATASE 183 U/L (46-116); ASPARTATE AMINOTRANSFERASE 14 U/L (15-37); BILIRUBIN,TOTAL 0.5 mg/dL (0.2-1.0); CARBON DIOXIDE 30 mmol/L (21-32); CHLORIDE 105 mmol/L (98-107); CREATININE 2.2 mg/dL (0.6-1.3); GLUCOSE 141 mg/dL (74-106); MAGNESIUM 2.3 mg/dL (1.8-2.4); PHOSPHORUS 2.2 mg/dL (2.5-4.9); POTASSIUM 3.4 mmol/L (3.5-5.1); SODIUM SERUM 144 mmol/L (136-145); TOTAL PROTEIN, SERUM 7.3 g/dL (6.4-8.2); UREA NITROGEN, BLOOD 34 mg/dL (7-18)
[2021-03-05 07:10] LABS: GENTAMICIN,RANDOM 2.3 ug/ml (4.0-8.0)
--- NOTE | 2021-03-05 07:20 | NUR ---
report given to oncoming shift for tico.
[2021-03-05 07:38] LABS: WHITE BLOOD COUNT (AUTO) 35.5 K/uL (4.3-11.0)
--- NOTE | 2021-03-05 08:42 | NUR ---
was notified re; wbc of 35.5 waiting for returning call back
[2021-03-05 08:59] LABS: LYMPHOCYTES % (MANUAL) 5 % (16-48); MONOCYTES % (MANUAL) 5 % (0-11.0); NEUTROPHILS % (MANUAL) 90 (42-76)
[2021-03-05] MEDS ORDERED: LIDOCAINE 1%-EPI 1:100,000 20 ML VIAL TP ONE (09:00)
[2021-03-05] MEDS: DAKINS QUARTER STRENGTH (0.125%) 480 ML BOTTLE TOP SCH (09:00)
[2021-03-05] MEDS: CHLORHEXIDINE GLUCONATE 15 ML UDC MM SCH ×2 (09:29→16:06)
[2021-03-05] MEDS: FLUCONAZOLE (100 MG) 100 MG TABLET PO SCH (09:30)
[2021-03-05] MEDS: CARVEDILOL 12.5 MG TABLET PO SCH ×2 (09:30→21:13)
[2021-03-05] MEDS: hydrALAZINE HCL 50 MG TABLET PO SCH ×3 (09:31→16:09)
[2021-03-05] MEDS: PANTOPRAZOLE 40 MG/PACK PACK GT SCH (09:31)
[2021-03-05] MEDS: ISOSORBIDE DINITRATE (20MG) 20 MG TABLET PO SCH ×3 (09:32→16:09)
[2021-03-05] MEDS: METOCLOPRAMIDE HCL 10 MG TABLET PO SCH ×3 (09:32→18:19)
[2021-03-05] MEDS: SEVELAMER CARBONATE 800 MG POWD.PACK GT SCH ×3 (09:33→18:18)
[2021-03-05] MEDS: CLOTRIMAZOLE 1% 15 GM TUBE TP SCH ×2 (09:34→16:34)
[2021-03-05] MEDS: Z GUARD REMEDY 2 OZ OINT TP PRN (09:35)
[2021-03-05] MEDS: DORZOLAMIDE OPTH 2% 10 ML BOTTLE OP SCH ×2 (09:36→16:34)
[2021-03-05] MEDS: HEPARIN SODIUM, PORCINE 5000 UNITS/1 ML VIAL SQ SCH ×2 (09:45→21:00)
[2021-03-05 11:37] VITALS: BP 150/37
[2021-03-05 12:07] VITALS: BP 130/40
[2021-03-05 16:00] VITALS: BP 166/71
[2021-03-05] MEDS: HYDROCODONE/APAP 5/325MG TABLET GT PRN (16:07)
[2021-03-05] MEDS: EPOETIN ALFA (4000 UNIT) 4,000 UNIT/ML VIAL IJ SCH (16:08)
[2021-03-05] MEDS: AMLODIPINE BESYLATE 10 MG TABLET PO SCH (18:20)
--- NOTE | 2021-03-05 19:30 | NUR ---
CERTIFIED ORTHOTIST PRACTICE MANAGER NOTE RECEIVED PATIENT IN BED. OBTUNDED, OPENS EYES. ON MECHANICAL VENT, SETTINGS: PORTEX#7, AC148, TV 500 FIO2 35% PEEP5. RESPIRATIONS ARE EVEN AND UNLABORED. NO S/S SOB NOTED. NO S/S PAIN AT THIS TIME. EXTERNAL TELE MONITOR READS SINUS RHYTHM HR 69. IN NO APPARENT DISTRESS. IV ACCESS IN XIOMARA MIDLINE AND RIGHT FOOT IV INTACT PATENT AND SALINE LOCKED. GTUBE IS PRESENT, RESIDUAL 650ML. NO FEEDING AT THIS TIME. BED IS LOW AND LOCKED, HOB ELEVATED IN SEMI FOWLERS, SIDE RIALS UP X2, CALL LIGHT WITHIN REACH. DAUGHTER AT BEDSIDE. WILL CONTINUE TO MONITOR THROUGHOUT SHIFT.
[2021-03-05 20:00] VITALS: BP 167/60
--- NOTE | 2021-03-05 20:00 | NUR ---
SEARCH MANAGER NOTE BLADDER SCAN SHOWS 0 ML.
[2021-03-05] MEDS: CEFEPIME 1 GM in IV D5W 50 ML IV SCH (21:10)
[2021-03-05] MEDS: ACETAMINOPHEN 325 MG TABLET MC PRN (21:13)
[2021-03-05] MEDS: LATANOPROST EYE DROP 0.005% 2.5 ML BOTTLE OP SCH (21:13)
--- NOTE | 2021-03-05 21:14 | NUR ---
DIRECTOR OF DONOR RELATIONS NOTE DID NOT ADMINISTER HEPARIN 5000 UNITS D/T PATIENT LOW H/H 7.5/24
--- NOTE | 2021-03-05 23:09 | NUR ---
LOCKSTITCH SLEEVE SETTER NOTE INFORMED BACK SHOE WORKER ANABELL MUKHERJEE DNP THAT PATIENT RESIDUAL IS 650ML. FEEDING HAS ALREADY BEEN HELD THROUGHOUT DAY SHIFT FOR EPISODES OF EMESIS. PATIENT IS ALSO ON REGLAN 5MG TID. TELEPHONE ORDER FOR CONNECT GTUBE TO LOW INTERMITTENT SUCTION. ORDER READ BACK NOTED AND CARRIED OUT.
[2021-03-06] VITALS: BP 156/57
[2021-03-06] MEDS: ALBUTEROL FS 2.5 MG/3 ML VIAL.NEB NEB SCH ×4 (02:06→19:55)
[2021-03-06] MEDS: IPRATROPIUM NEB FS 0.5 MG/2.5 ML AMPUL.NEB NEB SCH ×4 (02:06→19:55)
[2021-03-06 04:00] VITALS: BP 123/78
--- NOTE | 2021-03-06 04:00 | NUR ---
PHYSICIAN RELATIONS SPECIALIST NOTE BLADDER SCANNER 64ML.
[2021-03-06 05:59] LABS: BASOPHILS # (AUTO) 0.1 /CMM (0.0-0.2); BASOPHILS % (AUTO) 0.5 % (0.0-2.0); EOSINOPHILS % (AUTO) 0.6 % (0.0-6.0); HEMATOCRIT 24 % (33-45); HEMOGLOBIN 7.5 g/dL (11.5-14.8); LYMPHOCYTES # (AUTO) 1.6 /CMM (0.8-4.8); LYMPHOCYTES % (AUTO) 10.2 % (20.0-44.0); MEAN CORPUSCULAR HGB CONC 31 g/dl (31.0-36.0); MEAN CORPUSCULAR VOLUME 91 fL (82-100); MONOCYTES # (AUTO) 0.9 /CMM (0.1-1.30); MONOCYTES % (AUTO) 5.4 % (2.0-12.0); NEUTROPHILS # (AUTO) 13.2 /CMM (1.8-8.9); NEUTROPHILS % (AUTO) 83.3 % (43.0-81.0); PLATELET COUNT (AUTO) 428 /CMM (150-450); RED BLOOD CELL COUNT(AUTO) 2.66 MIL/uL (4.0-5.2); WHITE BLOOD COUNT (AUTO) 15.9 K/uL (4.3-11.0)
[2021-03-06 06:18] LABS: ALANINE AMINOTRANSFERASE 9 U/L (12-78); ALBUMIN 2.1 g/dL (3.4-5.0); ALKALINE PHOSPHATASE 167 U/L (46-116); ASPARTATE AMINOTRANSFERASE 15 U/L (15-37); BILIRUBIN,TOTAL 0.5 mg/dL (0.2-1.0); CALCIUM, SERUM 9.1 mg/dL (8.5-10.1); CARBON DIOXIDE 28 mmol/L (21-32); CHLORIDE 106 mmol/L (98-107); CREATININE 2.8 mg/dL (0.6-1.3); GLUCOSE 85 mg/dL (74-106); MAGNESIUM 2.5 mg/dL (1.8-2.4); PHOSPHORUS 3.4 mg/dL (2.5-4.9); POTASSIUM 3.5 mmol/L (3.5-5.1); SODIUM SERUM 147 mmol/L (136-145); TOTAL PROTEIN, SERUM 7.1 g/dL (6.4-8.2); UREA NITROGEN, BLOOD 41 mg/dL (7-18)
[2021-03-06 06:30] LABS: GENTAMICIN,RANDOM 2.2 ug/ml (4.0-8.0)
--- NOTE | 2021-03-06 06:36 | NUR ---
INTELLIGENT SYSTEMS ENGINEER NOTE PATIENT RESTING IN BED. OBTUNDED, OPENS EYES. REMAINS ON MECHANICAL VENT, NO CHANGES IN SETTINGS. NO RESP DISTRESS. NO S/S PAIN. TELE MONITOR READS SINUS RHYTHM. NO DISTRESS. IV ACCESS IN XIOMARA MIDLINE. GTUBE CONNECTED TO LOW INTERMITTENT SUCTION, OUTPUT 850ML, YELLOW GASTRIC FLUIDS UNTIL REACHED 800ML, NOW DARK GREEN GASTRIC FLUIDS. BED REMAINS LOW AND LOCKED, HOB ELEVATED IN SEMI FOWLERS, SIDE RIALS UP X2, CALL LIGHT WITHIN REACH.WILL ENDORSE TO ONCOMING SHIFT.
--- NOTE | 2021-03-06 07:15 | NUR ---
RN OPENING NOTE PATIENT RESTING IN BED IN SEMI-FOWLERS. PATIENT IS OBTUNDED AND OPENS EYES. PATIENT ON MECHANICAL VENT, WITH PROPER SETTINGS IN PLACE ORDERED. NO RESP DISTRESS, NO S/S PAIN NOTED. IV ACCESS IN XIOMARA MIDLINE INTACT AND PATENT. G-TUBE CONNECTED TO LOW INTERMITTENT SUCTION WITH 850 ML NOTED FROM DEPARTMENT STORE MANAGER. SAFETY PRECAUTIONS IMPLEMENTED, SIDE RAILS UP X2, BED LOCKED IN LOWEST POSITION, CALL LIGHT WITHIN REACH. WILL CONTINUE TO MONITOR AND PROVIDE CARE THROUGHOUT SHIFT.
[2021-03-06 08:00] VITALS: BP 165/72
[2021-03-06] MEDS: DAKINS QUARTER STRENGTH (0.125%) 480 ML BOTTLE TOP SCH (09:00)
[2021-03-06] MEDS: CLOTRIMAZOLE 1% 15 GM TUBE TP SCH ×2 (09:00→17:34)
[2021-03-06] MEDS: DORZOLAMIDE OPTH 2% 10 ML BOTTLE OP SCH ×2 (09:00→17:34)
[2021-03-06] MEDS: SEVELAMER CARBONATE 800 MG POWD.PACK GT SCH ×3 (10:02→17:33)
[2021-03-06] MEDS: PANTOPRAZOLE 40 MG/PACK PACK GT SCH (10:03)
[2021-03-06] MEDS: METOCLOPRAMIDE HCL 10 MG TABLET PO SCH ×3 (10:03→17:34)
[2021-03-06] MEDS: CHLORHEXIDINE GLUCONATE 15 ML UDC MM SCH ×2 (10:03→17:33)
[2021-03-06] MEDS: hydrALAZINE HCL 50 MG TABLET PO SCH ×3 (10:04→17:34)
[2021-03-06] MEDS: FLUCONAZOLE (100 MG) 100 MG TABLET PO SCH (10:05)
[2021-03-06] MEDS: CARVEDILOL 12.5 MG TABLET PO SCH (10:05)
[2021-03-06] MEDS: LINEZOLID 600 MG TABLET PO SCH ×2 (10:06→20:12)
[2021-03-06] MEDS: ISOSORBIDE DINITRATE (20MG) 20 MG TABLET PO SCH ×3 (10:06→17:33)
[2021-03-06] MEDS: HEPARIN SODIUM, PORCINE 5000 UNITS/1 ML VIAL SQ SCH ×2 (10:07→20:14)
[2021-03-06 12:00] VITALS: BP 133/59
--- NOTE | 2021-03-06 13:34 | NUR ---
Bladder scan performed = 139 mL
[2021-03-06 16:00] VITALS: BP 173/70
[2021-03-06] MEDS: AMLODIPINE BESYLATE 10 MG TABLET PO SCH (17:33)
[2021-03-06] MEDS: NEPRO 1,000 ML BOTTLE GT PRN (19:29)
--- NOTE | 2021-03-06 19:30 | NUR ---
RN NOTE RECEIVED PATIENT IN BED, OBTUNDED, IN NO S/SX OF ACUTE DISTRESS AT THIS TIME. ON TRACH TO MECHANICAL VENT WITH SETTINGS PRESCRIBED, SATURATION AT 97%, SR ON THE MONITOR, HR IS 70. NOTED IV SITE AT R FOOT 20G, AND NASEEM MIDLINE, ALL HUBS PATENT AND FLUSHING WELL, O S/S OF INFECTION OR INFILTRATION. NOTED GTUBE INTACT MINIMAL RESIDUAL NOTED, WITH TUBE FEEDING OF NEPRO AT 20 ML HR/HR. SAFETY MEASURES IMPLEMENTED. PATIENT BED ALARM IS ON. HEAD OF BED ELEVATED. BED IS LOCKED, IN LOWEST POSITION AND SIDE RAILS UP. CALL LIGHT WITHIN REACH OF THE PATIENT. WILL CONTINUE TO MONITOR AND REASSESS FOR ANY CHANGES.
--- NOTE | 2021-03-06 19:35 | NUR ---
RN CLOSING NOTE PATIENT IN BED IN SEMI-FOWLERS. PATIENT IS OBTUNDED AND OPENS EYES. PATIENT ON MECHANICAL VENT, WITH PROPER SETTINGS IN PLACE ORDERED. NO RESP DISTRESS, NO S/S PAIN NOTED. IV ACCESS IN XIOMARA MIDLINE INTACT AND PATENT. G-TUBE FEEDING RESTARTED AT 10 ML/HR PER MD ORDER. VERBAL ORDERS TO INCREASE FEEDING RATE BY 10 ML/HR EVERY 2 HRS TOLERATED. FEEDING INCREASED TO 2O ML/HR. SAFETY PRECAUTIONS IMPLEMENTED, SIDE RAILS UP X2, BED LOCKED IN LOWEST POSITION, CALL LIGHT WITHIN REACH. WILL ENDORSE CARE TO UPCOMING SHIFT.
[2021-03-06 20:00] VITALS: BP 161/64
--- NOTE | 2021-03-06 20:00 | NUR ---
RN NOTE BLADDER SCAN PERFORMED, RESULTED 22 ML.
[2021-03-06] MEDS: CEFEPIME 1 GM in IV D5W 50 ML IV SCH (20:11)
--- NOTE | 2021-03-06 21:00 | NUR ---
RN NOTE GTUBE RESIDUAL WAS CHECKED, TOTAL OF 50 ML WAS OBTAINED. TUBE FEEDING INCREASED TO 30 ML/HR.
[2021-03-06] MEDS: LABETALOL HCL (100MG) 100 MG TABLET PO SCH (21:11)
[2021-03-06] MEDS: LATANOPROST EYE DROP 0.005% 2.5 ML BOTTLE OP SCH (21:11)
--- NOTE | 2021-03-06 23:00 | NUR ---
RN NOTE GTUBE RESIDUAL WAS CHECKED, NO RESIDUAL WAS NOTED. TUBE FEEDING INCREASED TO 40 ML/HR. MOTOR VEHICLES SUPERVISOR AWARE.
[2021-03-07] VITALS: BP 153/58
[2021-03-07 04:00] VITALS: BP 175/62
--- NOTE | 2021-03-07 04:00 | NUR ---
RN NOTE BLADDER SCAN PERFORMED, RESULTED 125 ML.
[2021-03-07] MEDS: ALBUTEROL FS 2.5 MG/3 ML VIAL.NEB NEB SCH ×4 (04:16→19:40)
[2021-03-07] MEDS: IPRATROPIUM NEB FS 0.5 MG/2.5 ML AMPUL.NEB NEB SCH ×4 (04:17→19:40)
[2021-03-07] MEDS: CLONIDINE HCL 0.1 MG TABLET PO PRN (04:27)
[2021-03-07 06:44] LABS: BASOPHILS # (AUTO) 0.1 /CMM (0.0-0.2); BASOPHILS % (AUTO) 0.5 % (0.0-2.0); EOSINOPHILS % (AUTO) 0.5 % (0.0-6.0); HEMATOCRIT 25 % (33-45); LYMPHOCYTES # (AUTO) 1.4 /CMM (0.8-4.8); MEAN CORPUSCULAR HGB CONC 32 g/dl (31.0-36.0); MEAN CORPUSCULAR VOLUME 91 fL (82-100); MONOCYTES # (AUTO) 0.7 /CMM (0.1-1.30); NEUTROPHILS # (AUTO) 11.4 /CMM (1.8-8.9); PLATELET COUNT (AUTO) 450 /CMM (150-450); RED BLOOD CELL COUNT(AUTO) 2.79 MIL/uL (4.0-5.2); WHITE BLOOD COUNT (AUTO) 13.6 K/uL (4.3-11.0)
[2021-03-07 06:48] LABS: CALCIUM, SERUM 9.3 mg/dL (8.5-10.1); CARBON DIOXIDE 28 mmol/L (21-32); CHLORIDE 105 mmol/L (98-107); CREATININE 3.4 mg/dL (0.6-1.3); GLUCOSE 106 mg/dL (74-106); POTASSIUM 4.2 mmol/L (3.5-5.1); SODIUM SERUM 145 mmol/L (136-145); UREA NITROGEN, BLOOD 48 mg/dL (7-18)
[2021-03-07 08:00] VITALS: BP 172/67
--- NOTE | 2021-03-07 08:00 | NUR ---
RN OPENING NOTE RECEIVED PATIENT IN BED, OBTUNDED, NON VERBAL, ABLE TO RESPONDS PHYSICAL STIMULI. SKIN IS WARM TO TOUCH KEEP CLEAN/DRY, INTACT MIS LINE, ALSO INTACT G TUBE OSTOMY. PATIENT IN VENTILATOR, RESPIRATORY EVEN AND UNLABORED, NO DISTRESS OBSERVED. KEPT ELEVATED HOB FOR ENSURE AIRWAY AND ASPIRATION PRECAUTION, ALSO LOWEST BED POSITION FOE SAFETY. CALL LIGHT WITHIN REACH, WILL CONTINUE TO MONITOR.
[2021-03-07] MEDS: PANTOPRAZOLE 40 MG/PACK PACK GT SCH (08:39)
[2021-03-07] MEDS: CHLORHEXIDINE GLUCONATE 15 ML UDC MM SCH ×2 (08:39→17:21)
[2021-03-07] MEDS: hydrALAZINE HCL 50 MG TABLET PO SCH ×3 (08:40→17:21)
[2021-03-07] MEDS: LABETALOL HCL (100MG) 100 MG TABLET PO SCH ×2 (08:42→20:16)
[2021-03-07] MEDS: FLUCONAZOLE (100 MG) 100 MG TABLET PO SCH (08:42)
[2021-03-07] MEDS: SEVELAMER CARBONATE 800 MG POWD.PACK GT SCH ×3 (08:43→17:21)
[2021-03-07] MEDS: METOCLOPRAMIDE HCL 10 MG TABLET PO SCH ×3 (08:43→17:22)
[2021-03-07] MEDS: LINEZOLID 600 MG TABLET PO SCH ×2 (08:43→20:16)
[2021-03-07] MEDS: ISOSORBIDE DINITRATE (20MG) 20 MG TABLET PO SCH ×3 (08:43→17:22)
[2021-03-07] MEDS: HEPARIN SODIUM, PORCINE 5000 UNITS/1 ML VIAL SQ SCH ×2 (09:00→20:19)
[2021-03-07] MEDS: CLOTRIMAZOLE 1% 15 GM TUBE TP SCH ×2 (09:05→17:26)
[2021-03-07] MEDS: DORZOLAMIDE OPTH 2% 10 ML BOTTLE OP SCH ×2 (09:11→17:24)
--- NOTE | 2021-03-07 09:12 | NUR ---
PATIENT HBG LEVEL IS 8 IN THIS MORNING, MD AWARE AND HOLD HEPARIN.
[2021-03-07 12:00] VITALS: BP 161/65
[2021-03-07] MEDS: DAKINS QUARTER STRENGTH (0.125%) 480 ML BOTTLE TOP SCH (14:49)
[2021-03-07] MEDS: EPOETIN ALFA (4000 UNIT) 4,000 UNIT/ML VIAL IJ SCH (15:15)
[2021-03-07 16:00] VITALS: BP 161/62
[2021-03-07] MEDS: AMLODIPINE BESYLATE 10 MG TABLET PO SCH (17:30)
--- NOTE | 2021-03-07 18:28 | NUR ---
RN CLOSING NOTE PATIENT RESTING IN BED, DTR AT BED SIDE. DOES NO APPEARS DISTRESS OR DISCOMFORT. SKIN IS WARM TOUCH, KEEP CLEAN/DRY. PATIENT IN VENTILATOR, RESPIRATORY EVEN AND UNLABORED. KEPT ELEVATED HOB FOR ENSURE AIRWAY AND ASPIRATION PRECAUTION, ALSO LOWEST BED POSITION FOR SAFETY. CALL LIGHT WITHIN REACH, WILL ENDORSE COMPRESSION MOLDING MACHINE OPERATOR.
--- NOTE | 2021-03-07 19:15 | NUR ---
RN NOTE RECEIVED PATIENT IN BED, OBTUNDED, IN NO S/SX OF ACUTE DISTRESS AT THIS TIME. ON TRACH TO MECHANICAL VENT WITH SETTINGS PRESCRIBED, SATURATION AT 96%, SR ON THE MONITOR, HR IS 96. NOTED IV SITE AT R FOOT 20G, AND NASEEM MIDLINE, ALL HUBS PATENT AND FLUSHING WELL, NO S/S OF INFECTION OR INFILTRATION. NOTED GTUBE INTACT >100 RESIDUAL NOTED, WITH TUBE FEEDING OF NEPRO AT 40 ML HR/HR, STOPPED FOR NOW, WILL CONTINUE TO MONITOR RESIDUAL. SAFETY MEASURES IMPLEMENTED. PATIENT BED ALARM IS ON. HEAD OF BED ELEVATED. BED IS LOCKED, IN LOWEST POSITION AND SIDE RAILS UP. CALL LIGHT WITHIN REACH OF THE PATIENT. WILL CONTINUE TO MONITOR AND REASSESS FOR ANY CHANGES. Addendum: 03/07/21 at 2231 by RIO GOMEZ RN BLADDER SCAN PERFORMED, RESULTED 125 ML.
[2021-03-07 20:00] VITALS: BP 155/60
[2021-03-07] MEDS: CEFEPIME 1 GM in IV D5W 50 ML IV SCH (20:15)
--- NOTE | 2021-03-07 21:30 | NUR ---
RN NOTE RESIDUAL RECHECKED, <50 ML OUTPUT WAS NOTED. TUBE FEEDING OF NEPRO RESTARTED AT 20 ML/HR. WILL CONTINUE TO MONITOR.
[2021-03-07] MEDS: LATANOPROST EYE DROP 0.005% 2.5 ML BOTTLE OP SCH (22:08)
[2021-03-08] VITALS: BP 155/55
[2021-03-08] MEDS: ALBUTEROL FS 2.5 MG/3 ML VIAL.NEB NEB SCH ×4 (01:34→19:43)
[2021-03-08] MEDS: IPRATROPIUM NEB FS 0.5 MG/2.5 ML AMPUL.NEB NEB SCH ×4 (01:34→19:43)
[2021-03-08 04:00] VITALS: BP 156/59
--- NOTE | 2021-03-08 04:00 | NUR ---
RN NOTE BLADDER SCAN PERFORMED, RESULTED 139 ML.
[2021-03-08 06:16] LABS: BASOPHILS # (AUTO) 0.1 /CMM (0.0-0.2); BASOPHILS % (AUTO) 0.7 % (0.0-2.0); EOSINOPHILS % (AUTO) 0.7 % (0.0-6.0); HEMATOCRIT 23 % (33-45); HEMOGLOBIN 7.4 g/dL (11.5-14.8); LYMPHOCYTES # (AUTO) 1.4 /CMM (0.8-4.8); LYMPHOCYTES % (AUTO) 11.6 % (20.0-44.0); MEAN CORPUSCULAR HGB CONC 32 g/dl (31.0-36.0); MEAN CORPUSCULAR VOLUME 91 fL (82-100); MONOCYTES # (AUTO) 0.7 /CMM (0.1-1.30); MONOCYTES % (AUTO) 5.7 % (2.0-12.0); NEUTROPHILS # (AUTO) 9.8 /CMM (1.8-8.9); NEUTROPHILS % (AUTO) 81.3 % (43.0-81.0); PLATELET COUNT (AUTO) 453 /CMM (150-450); RED BLOOD CELL COUNT(AUTO) 2.56 MIL/uL (4.0-5.2)
[2021-03-08 06:40] LABS: BILIRUBIN,URINE NEGATIVE (NEGATIVE); COLOR,URINE YELLOW (YELLOW); LEUKOCYTE ESTERASE ,URINE TRACE (NEGATIVE); NITRITE, URINE NEGATIVE (NEGATIVE); PROTEIN,URINE >=300 mg/dl (NEGATIVE); UGLUCOSE NEGATIVE (NEGATIVE); UROBILINOGEN,URINE 0.2 EU/dL (0.2)
[2021-03-08 06:47] LABS: ALANINE AMINOTRANSFERASE 9 U/L (12-78); ALBUMIN 2.2 g/dL (3.4-5.0); ALKALINE PHOSPHATASE 136 U/L (46-116); ASPARTATE AMINOTRANSFERASE 14 U/L (15-37); BILIRUBIN,TOTAL 0.5 mg/dL (0.2-1.0); CALCIUM, SERUM 8.9 mg/dL (8.5-10.1); CARBON DIOXIDE 27 mmol/L (21-32); CHLORIDE 107 mmol/L (98-107); CREATININE 3.9 mg/dL (0.6-1.3); GLUCOSE 129 mg/dL (74-106); MAGNESIUM 2.6 mg/dL (1.8-2.4); PHOSPHORUS 3.9 mg/dL (2.5-4.9); POTASSIUM 4.1 mmol/L (3.5-5.1); SODIUM SERUM 146 mmol/L (136-145); TOTAL PROTEIN, SERUM 7.4 g/dL (6.4-8.2); UREA NITROGEN, BLOOD 56 mg/dL (7-18)
[2021-03-08 06:58] LABS: BACTERIA,URINE Few /HPF (None Seen); RBC,URINE NONE SEEN /HPF (0-2); SQUAMOUS EPITHELIAL CELL,UR Few /HPF (None Seen); YEAST,URINE Few /HPF (None Seen)
--- NOTE | 2021-03-08 07:35 | NUR ---
SUPERVISOR MACHINING NOTE RECEIVED PATIENT IN BED. OBTUNDED, OPENS EYES. ON [facility] VENT PORTEX #7 WITH SETTINGS AC 18 TV 500 FI02 35 PEEP 5. TELE READING SHOWS SR 70'S. IV ACCESS ON G TUBE NEPRO RUNNING AT 40 ML/HR. IV ACCESS ON NASEEM MIDLINE AND R FOOT #20 G, INTACT. SAFETY MEASURES MAINTAINED. BED IN LOWEST POSITION, BRAKES LOCKED. SIDE RAILS UP X2. CALL LIGHT WITHIN REACH. WILL CONTINUE PLAN OF CARE.
[2021-03-08 08:00] VITALS: BP 169/60
[2021-03-08] MEDS: hydrALAZINE HCL 50 MG TABLET PO SCH ×3 (08:56→17:01)
[2021-03-08] MEDS: LABETALOL HCL (100MG) 100 MG TABLET PO SCH ×2 (08:56→20:48)
[2021-03-08] MEDS: LINEZOLID 600 MG TABLET PO SCH ×2 (08:57→20:48)
[2021-03-08] MEDS: FLUCONAZOLE (100 MG) 100 MG TABLET PO SCH (08:57)
[2021-03-08] MEDS: METOCLOPRAMIDE HCL 10 MG TABLET PO SCH ×3 (08:57→17:00)
[2021-03-08] MEDS: PANTOPRAZOLE 40 MG/PACK PACK GT SCH (08:57)
[2021-03-08] MEDS: CHLORHEXIDINE GLUCONATE 15 ML UDC MM SCH ×2 (08:57→17:02)
[2021-03-08] MEDS: ISOSORBIDE DINITRATE (20MG) 20 MG TABLET PO SCH ×3 (08:57→17:00)
[2021-03-08] MEDS: DORZOLAMIDE OPTH 2% 10 ML BOTTLE OP SCH ×2 (08:57→17:01)
[2021-03-08] MEDS: SEVELAMER CARBONATE 800 MG POWD.PACK GT SCH ×3 (08:57→17:01)
[2021-03-08] MEDS: HEPARIN SODIUM, PORCINE 5000 UNITS/1 ML VIAL SQ SCH (08:58)
[2021-03-08] MEDS: CLOTRIMAZOLE 1% 15 GM TUBE TP SCH ×2 (09:06→17:06)
[2021-03-08] MEDS: DAKINS QUARTER STRENGTH (0.125%) 480 ML BOTTLE TOP SCH (09:06)
--- NOTE | 2021-03-08 09:20 | NUR ---
RN NOTE G TUBE RESIDUAL 90 ML. HELD FEEDING. WILL CONTINUE TO MONITOR THROUGHOUT THE SHIFT.
[2021-03-08 12:00] VITALS: BP 148/53
[2021-03-08] MEDS: ACETAMINOPHEN 325 MG TABLET MC PRN (12:30)
--- NOTE | 2021-03-08 12:30 | NUR ---
RN NOTE TEMP 100.2 F, ACETAMINOPHEN 650 MG VIA G TUBE GIVEN.
--- NOTE | 2021-03-08 12:50 | NUR ---
SPECIALTY DEVELOPMENT CONSULTANT NOTE G TUBE RESIDUAL 20 ML. RESTARTED FEEDING.
--- NOTE | 2021-03-08 12:59 | NUR ---
RN NOTE BLADDER SCAN 135 ML
--- NOTE | 2021-03-08 13:30 | NUR ---
RN NOTE TEMP 98.4 F WILL CONTINUE TO MONITOR
[2021-03-08] MEDS: NEPRO 1,000 ML BOTTLE GT PRN (14:21)
[2021-03-08 16:00] VITALS: BP 150/70
[2021-03-08] MEDS: AMLODIPINE BESYLATE 10 MG TABLET PO SCH (17:01)
--- NOTE | 2021-03-08 18:00 | NUR ---
USER EXPERIENCE LEAD CLOSING NOTE PATIENT IN BED. OBTUNDED, OPENS EYES. ON [facility] VENT PORTEX #7 WITH SAME SETTINGS AC 18 TV 500 FI02 35 PEEP 5. TELE READING SHOWS SR 80'S. ON G TUBE FEEDING, NEPRO RUNNING AT 40 ML/HR, 15 ML RESIDUAL. IV ACCESS ON NASEEM MIDLINE AND R FOOT #20 G, INTACT AND PATENT. ALL DUE MEDS GIVEN ORDERED. WOUND TREATMENT ORDERED. SUCTIONED NEEDED. DTR AT THE BEDSIDE. SAFETY MEASURES MAINTAINED. BED IN LOWEST POSITION, BRAKES LOCKED. SIDE RAILS UP X2. CALL LIGHT WITHIN REACH. WILL ENDORSE CONTINUITY OF CARE TO ONCOMING SHIFT.
[2021-03-08 20:00] VITALS: BP 138/53
[2021-03-08] MEDS: CEFEPIME 1 GM in IV D5W 50 ML IV SCH (20:00)
--- NOTE | 2021-03-08 20:00 | NUR ---
RN NOTE BLADDER SCAN 53 ML.
--- NOTE | 2021-03-08 20:00 | NUR ---
CLAY HOUSE WORKER OPENING NOTE RECEIVED PT IN BED. OBTUNDED, OPENS EYES. PT NOTED ON MECHANICAL VENT PORTEX #7 WITH SETTINGS AC 18 TV 500 FI02 35 PEEP 5. TELE READING SHOWS SR 80'S. NOTED ON GTUBE FEEDING, NEPRO RUNNING AT 40 ML/HR, NO RESIDUAL. IV ACCESS NOTED IN NASEEM MIDLINE AND RIGHT FOOT #20, INTACT AND PATENT. DTR AT THE BEDSIDE. SAFETY MEASURES MAINTAINED. BED IN LOWEST LOCKED POSITION, HOB ELEVATED, SIDE RAILS UP X2..CALL LIGHT WITHIN REACH. WILL CONTINUE WITH PLAN OF CARE.
[2021-03-08] MEDS: LATANOPROST EYE DROP 0.005% 2.5 ML BOTTLE OP SCH (23:54)
[2021-03-09] VITALS: BP 121/43
[2021-03-09] MEDS: IPRATROPIUM NEB FS 0.5 MG/2.5 ML AMPUL.NEB NEB SCH ×4 (01:59→19:56)
[2021-03-09] MEDS: ALBUTEROL FS 2.5 MG/3 ML VIAL.NEB NEB SCH ×4 (01:59→19:56)
[2021-03-09 04:00] VITALS: BP 113/56
--- NOTE | 2021-03-09 04:00 | NUR ---
RN NOTE BLADDER SCAN 127 ML. Addendum: 03/09/21 at 0621 by BRET RIVERA RN RN NOTE BLADDER SCAN PERFORMED, RESULTED 427 ML. STRAIGHT CATH PERFORMED PER ORDER. PT TOLERATED WELL.
[2021-03-09 05:54] LABS: BASOPHILS # (AUTO) 0.1 /CMM (0.0-0.2); BASOPHILS % (AUTO) 0.6 % (0.0-2.0); EOSINOPHILS % (AUTO) 1.4 % (0.0-6.0); HEMATOCRIT 25 % (33-45); LYMPHOCYTES # (AUTO) 1.3 /CMM (0.8-4.8); LYMPHOCYTES % (AUTO) 10.6 % (20.0-44.0); MEAN CORPUSCULAR HGB CONC 32 g/dl (31.0-36.0); MEAN CORPUSCULAR VOLUME 92 fL (82-100); MONOCYTES # (AUTO) 0.8 /CMM (0.1-1.30); MONOCYTES % (AUTO) 6.4 % (2.0-12.0); PLATELET COUNT (AUTO) 470 /CMM (150-450); RED BLOOD CELL COUNT(AUTO) 2.75 MIL/uL (4.0-5.2); WHITE BLOOD COUNT (AUTO) 12.4 K/uL (4.3-11.0)
[2021-03-09 06:34] LABS: ALANINE AMINOTRANSFERASE 7 U/L (12-78); ALBUMIN 2.3 g/dL (3.4-5.0); ALKALINE PHOSPHATASE 135 U/L (46-116); ASPARTATE AMINOTRANSFERASE 10 U/L (15-37); BILIRUBIN,TOTAL 0.5 mg/dL (0.2-1.0); CARBON DIOXIDE 26 mmol/L (21-32); CHLORIDE 106 mmol/L (98-107); CREATININE 4.2 mg/dL (0.6-1.3); GLUCOSE 134 mg/dL (74-106); MAGNESIUM 2.8 mg/dL (1.8-2.4); PHOSPHORUS 4.4 mg/dL (2.5-4.9); POTASSIUM 4.2 mmol/L (3.5-5.1); SODIUM SERUM 145 mmol/L (136-145); TOTAL PROTEIN, SERUM 7.8 g/dL (6.4-8.2); UREA NITROGEN, BLOOD 65 mg/dL (7-18)
--- NOTE | 2021-03-09 06:55 | NUR ---
DRILLER AND BROACHER CLOSING NOTE PT IS IN BED, OBTUNDED, AND OPENS EYES. PT ON MECHANICAL VENT PORTEX #7 WITH SETTINGS AC 18 TV 500 FI02 35 PEEP 5. TELE READING SHOWS SR 80'S. NOTED ON GTUBE FEEDING, NEPRO RUNNING AT 40 ML/HR. IV ACCESS IS INTACT, PATENT, AND FLUSHING WELL. ALL NEEDS HAVE BEEN MET. WOUND CARE ADMINISTERED PER ORDER. PT REPOSITIONED Q2H AND PRN. SAFETY MEASURES MAINTAINED AT ALL TIMES. BED IN LOWEST LOCKED POSITION, HOB ELEVATED, SIDE RAILS UP X2. CALL LIGHT WITHIN REACH. WILL ENDORSE TO ONCOMING NURSE FOR OTIS.
--- NOTE | 2021-03-09 08:12 | NUR ---
RN OPENING NOTES 113 PT IS IN BED SLEEPING, OBTUNDED, OPENS EYES TO VOICE SOUND AND EASILY AROUSED, ON MECHANICAL VENT PORTEX #7 WITH SETTINGS AC 18 TV 500 FI02 35 PEEP, 5. TELE READING FLUCTUATING BETWEEN SR 80 - 84 , G-TUBE FEEDING INTACT IN PLACE, NEPRO RUNNING AT 40 ML/HR. IV ACCESS INTACT, PATENT, FLUSHING WELL, SAFETY MEASURES INPLACE, BED IN LOWEST LOCKED POSITION, HOB ELEVATED, SIDE RAILS UP X2. CALL LIGHT WITHIN REACH. CONTINUE TO MONITOR AND READ BLADDER SCAN AT ORDERED TIMES, APPROPRIATE MEASURES CARRIED OUT IN A TIMELY MANNER.
[2021-03-09] MEDS: SEVELAMER CARBONATE 800 MG POWD.PACK GT SCH ×3 (08:41→17:28)
[2021-03-09] MEDS: PANTOPRAZOLE 40 MG/PACK PACK GT SCH (08:43)
[2021-03-09] MEDS: LABETALOL HCL (100MG) 100 MG TABLET PO SCH ×2 (08:43→20:04)
[2021-03-09] MEDS: METOCLOPRAMIDE HCL 10 MG TABLET PO SCH ×3 (08:44→17:31)
[2021-03-09] MEDS: ISOSORBIDE DINITRATE (20MG) 20 MG TABLET PO SCH ×3 (08:45→17:30)
[2021-03-09] MEDS: CHLORHEXIDINE GLUCONATE 15 ML UDC MM SCH ×2 (08:59→17:32)
[2021-03-09] MEDS: DAKINS QUARTER STRENGTH (0.125%) 480 ML BOTTLE TOP SCH (08:59)
[2021-03-09] MEDS: Z GUARD REMEDY 2 OZ OINT TP PRN (09:00)
[2021-03-09] MEDS: DORZOLAMIDE OPTH 2% 10 ML BOTTLE OP SCH ×2 (09:00→17:49)
[2021-03-09 09:03] VITALS: BP 145/79
[2021-03-09] MEDS: CLOTRIMAZOLE 1% 15 GM TUBE TP SCH ×2 (10:06→17:47)
[2021-03-09] MEDS: FLUCONAZOLE (100 MG) 100 MG TABLET PO SCH (10:41)
[2021-03-09] MEDS: LINEZOLID 600 MG TABLET PO SCH ×2 (10:42→20:04)
[2021-03-09] MEDS: hydrALAZINE HCL 50 MG TABLET PO SCH ×3 (10:43→17:29)
[2021-03-09 12:26] VITALS: BP 143/82
--- NOTE | 2021-03-09 14:51 | NUR ---
RN Mid Day Notes PATIENT BLADDER SCANNED TO MONITOR AMOUNT, 100ML NOTED ORDER TO STRAIGHT CATH IF 300ML OR MORE , BM X1 NOTED IN BRIEF WITH URINE OUTPUT NOTED, ON MECHANICAL VENT PORTEX #7 WITH SETTINGS AC 18 TV 500 FI02 35 PEEP, 5. TELE READING FLUCTUATING BETWEEN SR 82- 84 , G-TUBE FEEDING INTACT IN PLACE, NEPRO RUNNING AT 40 ML/HR. IV ACCESS INTACT, PATENT, FLUSHING WELL, SAFETY MEASURES INPLACE, BED IN LOWEST LOCKED POSITION, HOB ELEVATED, SIDE RAILS UP X2. CALL LIGHT WITHIN REACH. CONTINUE TO MONITOR AND FAMILY MEMBER DAUGHTER IS AT BED SIDE OVERSEEING CARE WELL.
[2021-03-09] MEDS: ACETAMINOPHEN 325 MG TABLET MC PRN (16:03)
[2021-03-09 16:06] VITALS: BP 148/60
[2021-03-09] MEDS: AMLODIPINE BESYLATE 10 MG TABLET PO SCH (17:31)
--- NOTE | 2021-03-09 18:13 | NUR ---
RN NOTES PATIENT G-TUBE IN PLACE,, NO SOB NOTED , TOLERATED WOUND CARE AND GEN CARE WELL, IV SITE INTACT AND PATENT FLUSHING WELL, SITE SHOWS NO S/S OF ANY IRRITATION NOR INFLAMMATION, TRACH IS INTACT AND FAMILY MEMBER DAUGHTER IS VISITING PATIENT AT THIS TIME, ALL MD ORDERS CARRIED OUT PT TOLERATED ALL MEDICATIONS WELL, FACIAL GRIMACE NOTED APPEARS TO BE IN PAIN AT TIMES , TEMPERATURE AXILLARY 98.8 AT THIS TIME, CONTINUING TO MONITOR TEMP NO SIGNIFICANT CHANGES OTHER THAN BASE LINE IS SHOWING TRENDING DOWN TO A MORE NORMAL LEVEL - WILL CONTINUE TO MONITOR, TYLENOL GIVEN PER PRN EFFECTIVE ,
[2021-03-09 20:00] VITALS: BP 128/51
[2021-03-09] MEDS: CEFEPIME 1 GM in IV D5W 50 ML IV SCH (20:00)
[2021-03-09] MEDS: HEPARIN SODIUM, PORCINE 5000 UNITS/1 ML VIAL SQ SCH (20:05)
--- NOTE | 2021-03-09 20:30 | NUR ---
BLADDER SCAN RENDERED, 14ML RESULTED.
[2021-03-09] MEDS: LATANOPROST EYE DROP 0.005% 2.5 ML BOTTLE OP SCH (22:27)
[2021-03-10] VITALS: BP 130/52
--- NOTE | 2021-03-10 01:29 | NUR ---
RN NOTE PT IN BED. OBTUNDED, OPENS EYES. ON MECHANICAL VENT TOLERATING SETTINGS WELL. NO SIGNS OF DISTRESS. TELE READING SHOWS SR 80'S. NOTED ON GTUBE FEEDING, NEPRO RUNNING AT 40 ML/HR, 15 ML RESIDUAL. IV ACCESS NOTED IN NASEEM MIDLINE AND RIGHT FOOT #20, INTACT AND PATENT. DTR AT THE BEDSIDE. SAFETY MEASURES MAINTAINED. BED IN LOWEST LOCKED POSITION, HOB ELEVATED, SIDE RAILS UP X2. CALL LIGHT WITHIN REACH. PATIENT COMFORTABLY RESTING IN BED. Addendum: 03/10/21 at 0131 by KASSANDRA JACKSON RN OPENING NOTE 1939
[2021-03-10] MEDS: ALBUTEROL FS 2.5 MG/3 ML VIAL.NEB NEB SCH ×4 (02:23→20:21)
[2021-03-10] MEDS: IPRATROPIUM NEB FS 0.5 MG/2.5 ML AMPUL.NEB NEB SCH ×4 (02:23→20:21)
[2021-03-10] MEDS: NEPRO 1,000 ML BOTTLE GT PRN (03:05)
[2021-03-10 04:00] VITALS: BP 126/50
--- NOTE | 2021-03-10 04:20 | NUR ---
BLADDER SCAN RENDERED, 109 RESULTED.
[2021-03-10 06:30] LABS: BASOPHILS # (AUTO) 0.1 /CMM (0.0-0.2); BASOPHILS % (AUTO) 0.5 % (0.0-2.0); EOSINOPHILS % (AUTO) 1.1 % (0.0-6.0); HEMATOCRIT 24 % (33-45); HEMOGLOBIN 7.5 g/dL (11.5-14.8); LYMPHOCYTES # (AUTO) 1.2 /CMM (0.8-4.8); LYMPHOCYTES % (AUTO) 8.4 % (20.0-44.0); MEAN CORPUSCULAR HGB CONC 31 g/dl (31.0-36.0); MEAN CORPUSCULAR VOLUME 93 fL (82-100); MONOCYTES # (AUTO) 0.7 /CMM (0.1-1.30); NEUTROPHILS # (AUTO) 11.8 /CMM (1.8-8.9); PLATELET COUNT (AUTO) 439 /CMM (150-450); RED BLOOD CELL COUNT(AUTO) 2.59 MIL/uL (4.0-5.2); WHITE BLOOD COUNT (AUTO) 13.8 K/uL (4.3-11.0)
--- NOTE | 2021-03-10 06:38 | NUR ---
RN NOTE PT IN BED. OBTUNDED. ON MECHANICAL VENT TOLERATING SETTINGS WELL. NO SIGNS OF DISTRESS. TELE READING SHOWS SR 80'S. GTUBE FEEDING, NEPRO RUNNING AT 40 ML/HR, 10 RESIDUAL NOTED. IV ACCESS NOTED IN NASEEM MIDLINE AND RIGHT FOOT #20, INTACT AND PATENT. SAFETY MEASURES MAINTAINED. ALL DUE MEDS GIVEN ORDERED. TURNED AND REPOSITIONED. BED IN LOWEST LOCKED POSITION, HOB ELEVATED, SIDE RAILS UP X2. CALL LIGHT WITHIN REACH. WILL ENDORSE TO AM SHIFT.
[2021-03-10 07:07] LABS: ALANINE AMINOTRANSFERASE 8 U/L (12-78); ALBUMIN 2.1 g/dL (3.4-5.0); ALKALINE PHOSPHATASE 121 U/L (46-116); ASPARTATE AMINOTRANSFERASE 12 U/L (15-37); BILIRUBIN,TOTAL 0.5 mg/dL (0.2-1.0); CALCIUM, SERUM 8.9 mg/dL (8.5-10.1); CARBON DIOXIDE 25 mmol/L (21-32); CHLORIDE 106 mmol/L (98-107); CREATININE 4.7 mg/dL (0.6-1.3); GLUCOSE 153 mg/dL (74-106); MAGNESIUM 2.8 mg/dL (1.8-2.4); PHOSPHORUS 4.5 mg/dL (2.5-4.9); POTASSIUM 4.3 mmol/L (3.5-5.1); SODIUM SERUM 146 mmol/L (136-145); TOTAL PROTEIN, SERUM 7.5 g/dL (6.4-8.2); UREA NITROGEN, BLOOD 73 mg/dL (7-18)
[2021-03-10 08:00] VITALS: BP 143/61
[2021-03-10] MEDS: SEVELAMER CARBONATE 800 MG POWD.PACK GT SCH ×3 (08:18→16:53)
[2021-03-10] MEDS: METOCLOPRAMIDE HCL 10 MG TABLET PO SCH ×3 (08:19→17:28)
[2021-03-10] MEDS: CLOTRIMAZOLE 1% 15 GM TUBE TP SCH ×2 (09:12→16:57)
[2021-03-10] MEDS: DORZOLAMIDE OPTH 2% 10 ML BOTTLE OP SCH ×2 (09:13→16:52)
[2021-03-10] MEDS: CHLORHEXIDINE GLUCONATE 15 ML UDC MM SCH ×2 (09:15→16:51)
[2021-03-10] MEDS: HEPARIN SODIUM, PORCINE 5000 UNITS/1 ML VIAL SQ SCH ×2 (09:15→20:31)
[2021-03-10] MEDS: DAKINS QUARTER STRENGTH (0.125%) 480 ML BOTTLE TOP SCH (09:15)
[2021-03-10] MEDS: Z GUARD REMEDY 2 OZ OINT TP PRN (09:16)
[2021-03-10] MEDS: hydrALAZINE HCL 50 MG TABLET PO SCH ×3 (09:17→16:52)
[2021-03-10] MEDS: FLUCONAZOLE (100 MG) 100 MG TABLET PO SCH (09:17)
[2021-03-10] MEDS: ISOSORBIDE DINITRATE (20MG) 20 MG TABLET PO SCH ×3 (09:17→16:52)
[2021-03-10] MEDS: PANTOPRAZOLE 40 MG/PACK PACK GT SCH (09:18)
[2021-03-10] MEDS: LINEZOLID 600 MG TABLET PO SCH ×2 (09:18→20:28)
[2021-03-10] MEDS: LABETALOL HCL (100MG) 100 MG TABLET PO SCH ×2 (09:18→20:29)
[2021-03-10 12:00] VITALS: BP 132/60
--- NOTE | 2021-03-10 13:08 | NUR ---
Bladder scan shows 0 ml. Curly Olson RN
[2021-03-10 16:00] VITALS: BP 152/62
[2021-03-10] MEDS: EPOETIN ALFA (4000 UNIT) 4,000 UNIT/ML VIAL IJ SCH (16:04)
[2021-03-10] MEDS: AMLODIPINE BESYLATE 10 MG TABLET PO SCH (17:28)
--- NOTE | 2021-03-10 18:56 | NUR ---
Bladder scan shows 312 ml. Straight catheter performed. Curly Olson RN
--- NOTE | 2021-03-10 19:45 | NUR ---
TELE/RN OPENING NOTE RECEIVED PATIENT RESTING IN BED. NON-VERBAL AT BASELINE. NO S/SX OF PAIN NOTED AT THIS TIME. CONTINUES ON MECHANICAL VENT WITH PATIENT TOLERATING SETTINGS WELL. IV ACCESS TO RIGHT UPPER ARM MIDLINE AND RIGHT FOOT #20G INTACT, PATENT AND SALINE FLUSHED. CONTINUES ON NEPRO @ 40ML/HR. NO S/SX OF RESIDUAL NOTED AT THIS TIME. FAMILY AT BEDSIDE. CALL LIGHT WITHIN REACH. FREQUENT SAFETY CHECKS MADE. ASPIRATION, FALL AND SAFETY PRECAUTIONS MAINTAINED. WILL CONTINUE TO MONITOR.
[2021-03-10 20:00] VITALS: BP 163/64
--- NOTE | 2021-03-10 20:15 | NUR ---
TELE/RN NOTE BLADDER SCAN AT 1999 SHOWED 157CC OF URINE. NO ABDOMINAL DISTENTION NOTED. WILL CONTINUE TO MONITOR.
[2021-03-10] MEDS: CEFEPIME 1 GM in IV D5W 50 ML IV SCH (20:28)
--- NOTE | 2021-03-10 21:00 | NUR ---
TELE/RN NOTE PATIENT NOTED WITH HIGH BP OF 163/64. ADMINISTERED ROUTINE BP MEDS WITH BP RECHECK 152/61. WILL CONTINUE TO MONITOR.
[2021-03-10] MEDS: LATANOPROST EYE DROP 0.005% 2.5 ML BOTTLE OP SCH (22:57)
[2021-03-11] VITALS: BP 147/60
[2021-03-11] MEDS: ALBUTEROL FS 2.5 MG/3 ML VIAL.NEB NEB SCH ×4 (01:41→19:54)
[2021-03-11] MEDS: IPRATROPIUM NEB FS 0.5 MG/2.5 ML AMPUL.NEB NEB SCH ×4 (01:41→19:54)
--- NOTE | 2021-03-11 03:02 | NUR ---
Bladder scan shows 90 ml. Curly Olson RN Addendum: 03/11/21 at 1744 by [facility] NIMA1 RN incorrect time Addendum: 03/11/21 at 1744 by [facility] RN1 RN [id number]
[2021-03-11 04:00] VITALS: BP 153/58
--- NOTE | 2021-03-11 04:30 | NUR ---
TELE/RN NOTE PATIENT BLADDER SCAN 557. STRAIGHT CATH PERFORMED WITH 500CC CLEAR YELLOW URINE. PATIENT TOLERATED WELL. WILL CONTINUE TO MONITOR.
[2021-03-11] MEDS: NEPRO 1,000 ML BOTTLE GT PRN (06:12)
--- NOTE | 2021-03-11 06:40 | NUR ---
TELE/RN CLOSING NOTE PATIENT CURRENTLY RESTING IN BED. NON-VERBAL AT BASELINE. NO S/SX OF PAIN NOTED AT THIS TIME. CONTINUES ON MECHANICAL VENT WITH PATIENT TOLERATING SETTINGS WELL. IV ACCESS TO RIGHT UPPER ARM MIDLINE AND RIGHT FOOT #20G INTACT, PATENT AND SALINE FLUSHED. CONTINUES ON NEPRO @ 40ML/HR. NO S/SX OF RESIDUAL NOTED AT THIS TIME. DRESSING TO SACRAL WOUND CHANGED THIS SHIFT. CALL LIGHT WITHIN REACH. FREQUENT SAFETY CHECKS MADE. ASPIRATION, FALL AND SAFETY PRECAUTIONS MAINTAINED. WILL ENDORSE PLAN OF CARE TO ONCOMING SHIFT.
[2021-03-11 08:00] VITALS: BP 163/61
[2021-03-11] MEDS: SEVELAMER CARBONATE 800 MG POWD.PACK GT SCH ×3 (09:04→17:47)
[2021-03-11] MEDS: CHLORHEXIDINE GLUCONATE 15 ML UDC MM SCH ×2 (09:04→17:45)
[2021-03-11] MEDS: PANTOPRAZOLE 40 MG/PACK PACK GT SCH (09:04)
[2021-03-11] MEDS: METOCLOPRAMIDE HCL 10 MG TABLET PO SCH ×3 (09:04→17:48)
[2021-03-11] MEDS: DORZOLAMIDE OPTH 2% 10 ML BOTTLE OP SCH ×2 (09:05→17:45)
[2021-03-11] MEDS: hydrALAZINE HCL 50 MG TABLET PO SCH ×3 (09:06→17:46)
[2021-03-11] MEDS: FLUCONAZOLE (100 MG) 100 MG TABLET PO SCH (09:06)
[2021-03-11] MEDS: LABETALOL HCL (100MG) 100 MG TABLET PO SCH ×2 (09:07→20:21)
[2021-03-11] MEDS: LINEZOLID 600 MG TABLET PO SCH ×2 (09:07→20:21)
[2021-03-11] MEDS: ISOSORBIDE DINITRATE (20MG) 20 MG TABLET PO SCH ×3 (09:07→17:46)
[2021-03-11] MEDS: HEPARIN SODIUM, PORCINE 5000 UNITS/1 ML VIAL SQ SCH ×2 (09:08→20:23)
[2021-03-11] MEDS: CLOTRIMAZOLE 1% 15 GM TUBE TP SCH ×2 (09:18→17:46)
[2021-03-11] MEDS: DAKINS QUARTER STRENGTH (0.125%) 480 ML BOTTLE TOP SCH (09:18)
--- NOTE | 2021-03-11 09:56 | NUR ---
SPOKE WITH FAMILY REGARDING HEMODIALYSIS LINE PLACEMENT; REFUSED AT THIS TIME. MARLENI PRINCE RN
--- NOTE | 2021-03-11 09:58 | NUR ---
SPOKE WITH DAYA REGARDING REFUSAL OF LINE PLACEMENT. HE WILL SPEAK WITH ORDERING PHYSICIAN, DOCTOR MICHELLE. MARLENI PRINCE RN
[2021-03-11 12:00] VITALS: BP 151/59
--- NOTE | 2021-03-11 13:43 | NUR ---
Bladder scan shows 0 ml. Curly Olson RN
[2021-03-11 16:00] VITALS: BP 151/55
[2021-03-11] MEDS: AMLODIPINE BESYLATE 10 MG TABLET PO SCH (17:48)
--- NOTE | 2021-03-11 18:46 | NUR ---
Patient bladder scan shows 176ml. Curly Olson RN
--- NOTE | 2021-03-11 19:00 | NUR ---
RN NOTE RECEIVED PATIENT IN BED, OBTUNDED, IN NO S/SX OF ACUTE DISTRESS AT THIS TIME. ON TRACH TO MECHANICAL VENT WITH SETTINGS PRESCRIBED, SATURATION AT 100%, SR ON THE MONITOR, HR IS 92. NOTED IV SITE AT R FOOT 20G, AND NASEEM MIDLINE, ALL HUBS PATENT AND FLUSHING WELL, NO S/S OF INFECTION OR INFILTRATION. NOTED GTUBE INTACT POSITIVE PLACEMENT NOTED, NO RESIDUAL, WITH TUBE FEEDING OF NEPRO AT 40 ML/HR. SAFETY MEASURES IMPLEMENTED. PATIENT BED ALARM IS ON. HEAD OF BED ELEVATED. BED IS LOCKED, IN LOWEST POSITION AND SIDE RAILS UP. CALL LIGHT WITHIN REACH OF THE PATIENT. WILL CONTINUE TO MONITOR AND REASSESS FOR ANY CHANGES.
[2021-03-11] MEDS: ACETAMINOPHEN 325 MG TABLET MC PRN (19:24)
[2021-03-11 20:00] VITALS: BP 146/59
--- NOTE | 2021-03-11 20:00 | NUR ---
RN NOTE BLADDER SCAN DONE ORDERED, RESULTED 308. STRAIGHT CATHETERIZATION DONE, NOTED 310 ML OF CLEAR, YELLOW OUTPUT.
[2021-03-11] MEDS: CEFEPIME 1 GM in IV D5W 50 ML IV SCH (20:20)
--- NOTE | 2021-03-11 21:15 | NUR ---
RN NOTE SEIZURE EPISODE NOTED <10 SECONDS AT 2100, AND >30 SECONDS AT 2115. PER DAUGHTER, PATIENT HAS NO HISTORY OF SEIZURES. NOTED THAT PATIENT HAD SEIZURE EPISODES SINCE YESTERDAY, DR WALDEN AWARE AND REFERRED PATIENT TO DR LESLIE FOR NEURO CONSULT. DR MORTON WAS NOTIFIED, ORDERS RECEIVED TO START PATIENT ON KEPPRA 500 MG Q12H IV. ROLLING CHAIR PUSHER MADE AWARE.
[2021-03-11] MEDS: LATANOPROST EYE DROP 0.005% 2.5 ML BOTTLE OP SCH (21:42)
[2021-03-11] MEDS ORDERED: LEVETIRACETAM (500MG) 500 MG/5 ML VIAL IV ONE (21:46)
[2021-03-11] MEDS ORDERED: LEVETIRACETAM (500MG) 500 MG in IV NS 0.9% 100 ML IV SCH (22:00)
[2021-03-12] VITALS: BP 148/55
[2021-03-12] MEDS: IPRATROPIUM NEB FS 0.5 MG/2.5 ML AMPUL.NEB NEB SCH ×4 (01:41→19:54)
[2021-03-12] MEDS: ALBUTEROL FS 2.5 MG/3 ML VIAL.NEB NEB SCH ×4 (01:41→19:54)
[2021-03-12 04:00] VITALS: BP 149/58
[2021-03-12 06:50] LABS: BASOPHILS # (AUTO) 0.1 /CMM (0.0-0.2); BASOPHILS % (AUTO) 0.8 % (0.0-2.0); EOSINOPHILS % (AUTO) 1.7 % (0.0-6.0); HEMATOCRIT 24 % (33-45); HEMOGLOBIN 7.7 g/dL (11.5-14.8); LYMPHOCYTES # (AUTO) 1.3 /CMM (0.8-4.8); LYMPHOCYTES % (AUTO) 9.2 % (20.0-44.0); MEAN CORPUSCULAR HGB CONC 31 g/dl (31.0-36.0); MEAN CORPUSCULAR VOLUME 94 fL (82-100); MONOCYTES # (AUTO) 0.8 /CMM (0.1-1.30); MONOCYTES % (AUTO) 5.8 % (2.0-12.0); NEUTROPHILS # (AUTO) 11.8 /CMM (1.8-8.9); NEUTROPHILS % (AUTO) 82.5 % (43.0-81.0); PLATELET COUNT (AUTO) 432 /CMM (150-450); RED BLOOD CELL COUNT(AUTO) 2.61 MIL/uL (4.0-5.2); WHITE BLOOD COUNT (AUTO) 14.3 K/uL (4.3-11.0)
[2021-03-12 07:37] LABS: CALCIUM, SERUM 9.2 mg/dL (8.5-10.1); CARBON DIOXIDE 25 mmol/L (21-32); CHLORIDE 107 mmol/L (98-107); CREATININE 5.3 mg/dL (0.6-1.3); GLUCOSE 120 mg/dL (74-106); POTASSIUM 4.6 mmol/L (3.5-5.1); SODIUM SERUM 147 mmol/L (136-145)
[2021-03-12 07:45] LABS: UREA NITROGEN, BLOOD 90 mg/dL (7-18)
--- NOTE | 2021-03-12 07:48 | NUR ---
RN OPENING NOTE RECEIVED PATIENT IN BED, AWAKE AND ABLE TO RESPONDS PHYSICAL STIMULI. SKIN IS WARM TO TOUCH KEEP CLEAN/DRY, INTACT MIDLINE SITE, PATIENT IN GTUBE AND RUNNING NEPRO AT 40 ML. RESPIRATORY EVEN AND UNLABORED WITH VENTILATOR, NO DISTRESS OBSERVED. KEPT ELEVATED HOB FOR ENSURE AIRWAY AND ASPIRATION PRECAUTION, ALSO LOWEST BED POSITION FOE SAFETY. CALL LIGHT WITHIN REACH, WILL CONTINUE TO MONITOR.
[2021-03-12 08:00] VITALS: BP 151/62
[2021-03-12] MEDS: CHLORHEXIDINE GLUCONATE 15 ML UDC MM SCH ×2 (08:18→17:16)
[2021-03-12] MEDS: SEVELAMER CARBONATE 800 MG POWD.PACK GT SCH ×3 (08:18→17:17)
[2021-03-12] MEDS: FLUCONAZOLE (100 MG) 100 MG TABLET PO SCH (08:19)
[2021-03-12] MEDS: LINEZOLID 600 MG TABLET PO SCH ×2 (08:19→20:28)
[2021-03-12] MEDS: hydrALAZINE HCL 50 MG TABLET PO SCH ×3 (08:19→17:17)
[2021-03-12] MEDS: METOCLOPRAMIDE HCL 10 MG TABLET PO SCH ×3 (08:20→17:16)
[2021-03-12] MEDS: PANTOPRAZOLE 40 MG/PACK PACK GT SCH (08:20)
[2021-03-12] MEDS: LABETALOL HCL (100MG) 100 MG TABLET PO SCH ×2 (08:20→20:28)
[2021-03-12] MEDS: ISOSORBIDE DINITRATE (20MG) 20 MG TABLET PO SCH ×3 (08:20→17:17)
[2021-03-12] MEDS: DAKINS QUARTER STRENGTH (0.125%) 480 ML BOTTLE TOP SCH (08:28)
[2021-03-12] MEDS: DORZOLAMIDE OPTH 2% 10 ML BOTTLE OP SCH ×2 (08:28→17:26)
[2021-03-12] MEDS: CLOTRIMAZOLE 1% 15 GM TUBE TP SCH ×2 (08:28→17:26)
[2021-03-12] MEDS: HEPARIN SODIUM, PORCINE 5000 UNITS/1 ML VIAL SQ SCH ×2 (08:33→20:44)
--- NOTE | 2021-03-12 08:38 | NUR ---
PATIENT HGB LEVEL 7.7 THIS MORNING, SAID OK TO GIVE IT HEPARIN AND ADMINISTERED. WILL CONTINUE TO MONITOR HGB LEVEL.
[2021-03-12] MEDS ORDERED: LEVETIRACETAM (500MG) 500 MG in IV NS 0.9% 100 ML IV SCH (10:00)
--- NOTE | 2021-03-12 10:20 | NUR ---
Bladder scan is done and residual 156ml.
[2021-03-12] MEDS: EPOETIN ALFA (4000 UNIT) 4,000 UNIT/ML VIAL IJ SCH (14:39)
--- NOTE | 2021-03-12 15:56 | NUR ---
Obtained sign of consent by DTR for debridement of sacral ulcer.
[2021-03-12 16:00] VITALS: BP 137/56
[2021-03-12] MEDS: AMLODIPINE BESYLATE 10 MG TABLET PO SCH (17:17)
[2021-03-12] MEDS: NEPRO 1,000 ML BOTTLE GT PRN (18:04)
--- NOTE | 2021-03-12 18:21 | NUR ---
RN CLOSING NOTE PATIENT RESTING IN BED, DOES NO APPEARS DISTRESS OR DISCOMFORT. SKIN IS WARM TOUCH, KEEP CLEAN/DRY, INTACT MIDLINE SITE. RESPIRATORY EVEN AND UNLABORED WITH VENTILATOR, O2SAT 100 %. PATIENT DONE EEG AND RECEIVED DILANTIN 1000MG FOR SEIZURE. KEPT ELEVATED HOB FOR ENSURE AIRWAY AND ASPIRATION PRECAUTION, ALSO LOWEST BED POSITION FOR SAFETY. DTR AT BED SIDE, CALL LIGHT WITHIN REACH, WILL ENDORSE SHOVEL OILER.
[2021-03-12] MEDS ORDERED: phenytoin SODIUM IV 1,000 MG in IV NS 0.9% 100 ML IV ONE (18:30)
--- NOTE | 2021-03-12 19:30 | NUR ---
RN NOTE RECEIVED PATIENT IN BED, DAUGHTER AT BEDSIDE, OBTUNDED, IN NO S/SX OF ACUTE DISTRESS AT THIS TIME. ON TRACH TO MECHANICAL VENT WITH SETTINGS PRESCRIBED, SATURATION AT 100%, SR ON THE MONITOR, HR IS 75. NOTED IV SITE AT R FOOT 20G, AND NASEEM MIDLINE, ALL HUBS PATENT AND FLUSHING WELL, NO S/S OF INFECTION OR INFILTRATION. NOTED GTUBE INTACT POSITIVE PLACEMENT NOTED, NO RESIDUAL, WITH TUBE FEEDING OF NEPRO AT 40 ML/HR. BLADDER SCAN DONE, RESULTED 315 ML/HR. STRAIGHT DONE ASEPTICALLY, NOTED 250 ML OF CLOUDY, YELLOW OUTPUT. SAFETY MEASURES IMPLEMENTED. PATIENT BED ALARM IS ON. HEAD OF BED ELEVATED. BED IS LOCKED, IN LOWEST POSITION AND SIDE RAILS UP. CALL LIGHT WITHIN REACH OF THE PATIENT. WILL CONTINUE TO MONITOR AND REASSESS FOR ANY CHANGES.
[2021-03-12] MEDS: CEFEPIME 1 GM in IV D5W 50 ML IV SCH (19:47)
[2021-03-12 20:00] VITALS: BP 126/57
--- NOTE | 2021-03-12 20:00 | NUR ---
RN NOTE BLADDDER SCAN RESULTED, 304 ML. STRAIGHT CATH DONE ASEPTICALLY, NOTED TOTAL 250 ML OF CLOUDY, YELLOW OUTPUT.
[2021-03-12] MEDS: LATANOPROST EYE DROP 0.005% 2.5 ML BOTTLE OP SCH (22:02)
[2021-03-13] VITALS: BP 109/42
[2021-03-13] MEDS: IPRATROPIUM NEB FS 0.5 MG/2.5 ML AMPUL.NEB NEB SCH ×4 (01:56→19:40)
[2021-03-13] MEDS: ALBUTEROL FS 2.5 MG/3 ML VIAL.NEB NEB SCH ×4 (01:56→19:40)
[2021-03-13 04:00] VITALS: BP 118/50
--- NOTE | 2021-03-13 07:30 | NUR ---
RN OPENING NOTE RECEIVED OBTUNDED PATIENT IN BED SEMIFOWLER'S, IN NO S/S OF ACUTE DISTRESS OR SOB AT THIS TIME. ON TRACH MECHANICAL VENT WITH SETTINGS PRESCRIBED, PORTEX 7, AC 18, TV 500, FIO2 35%, PEEP 5, SPO2 100%, SR HR 70s ON TELEBOX. IV SITE AT R FOOT 20G, AND NASEEM MIDLINE BOTH PATENT AND FLUSHING WELL, NO S/S OF INFECTION OR INFILTRATION. G-TUBE AUSCULTATED FOR POSITIVE PLACEMENT WITH NO RESIDUALS, TUBE FEEDING OF NEPRO AT 40 ML/HR, FLUSHED AND PATENT.PER ORDER, BLADDER SCAN FOR 1200, STRAIGHT CATH FOR URINE RETENTION GREATER THAN 300cc. ALL SAFETY MEASURES IMPLEMENTED. PATIENT BED ALARM IS ON. HEAD OF BED ELEVATED. BED IS LOCKED AND IN LOWEST POSITION AND SIDE RAILS UPx2. CALL LIGHT WITHIN REACH OF THE PATIENT. WILL CONTINUE TO MONITOR
[2021-03-13 08:00] VITALS: BP 118/50
[2021-03-13] MEDS: CHLORHEXIDINE GLUCONATE 15 ML UDC MM SCH ×2 (09:29→17:36)
[2021-03-13] MEDS: LABETALOL HCL (100MG) 100 MG TABLET PO SCH ×2 (09:30→20:54)
[2021-03-13] MEDS: SEVELAMER CARBONATE 800 MG POWD.PACK GT SCH ×3 (09:31→17:36)
[2021-03-13] MEDS: FLUCONAZOLE (100 MG) 100 MG TABLET PO SCH (09:31)
[2021-03-13] MEDS: ISOSORBIDE DINITRATE (20MG) 20 MG TABLET PO SCH ×3 (09:31→17:00)
[2021-03-13] MEDS: PANTOPRAZOLE 40 MG/PACK PACK GT SCH (09:32)
[2021-03-13] MEDS: hydrALAZINE HCL 50 MG TABLET PO SCH ×3 (09:32→17:00)
--- NOTE | 2021-03-13 09:32 | NUR ---
WOUND CARE CONSULT: PT SEEN FOR SKIN TEARS TO RT UPPER ARM AND RT FOREARM. PT NOTED TO HAVE FRAGILE SKIN WITH AREAS OF DISCOLORATION. RECOMMENDATIONS MADE FOR SKIN PROTECTION AND WOUND CARE. DISCUSSED WITH NURSING STAFF. PT FOLLOWED BY SURGICAL TEAM FOR SACRAL WOUND. MD IN AGREEMENT WITH PLAN OF CARE. PT IS ON FIRST STEP LOW AIRLOSS MATTRESS. Addendum: 03/13/21 at 0934 by BYRON LAZO WNDNU Amended: Links added.
[2021-03-13] MEDS: METOCLOPRAMIDE HCL 10 MG TABLET PO SCH ×3 (09:33→17:34)
[2021-03-13] MEDS: LINEZOLID 600 MG TABLET PO SCH ×2 (09:33→20:54)
[2021-03-13] MEDS: CLOTRIMAZOLE 1% 15 GM TUBE TP SCH ×2 (09:34→17:59)
[2021-03-13] MEDS: DAKINS QUARTER STRENGTH (0.125%) 480 ML BOTTLE TOP SCH (09:34)
[2021-03-13] MEDS: DORZOLAMIDE OPTH 2% 10 ML BOTTLE OP SCH ×2 (09:36→17:59)
[2021-03-13] MEDS: HEPARIN SODIUM, PORCINE 5000 UNITS/1 ML VIAL SQ SCH ×2 (09:39→21:22)
[2021-03-13 10:31] LABS: BASOPHILS # (AUTO) 0.1 /CMM (0.0-0.2); BASOPHILS % (AUTO) 0.7 % (0.0-2.0); EOSINOPHILS % (AUTO) 2.2 % (0.0-6.0); HEMATOCRIT 23 % (33-45); HEMOGLOBIN 7.2 g/dL (11.5-14.8); LYMPHOCYTES # (AUTO) 1.4 /CMM (0.8-4.8); LYMPHOCYTES % (AUTO) 11.2 % (20.0-44.0); MEAN CORPUSCULAR HGB CONC 31 g/dl (31.0-36.0); MEAN CORPUSCULAR VOLUME 96 fL (82-100); MONOCYTES # (AUTO) 0.8 /CMM (0.1-1.30); NEUTROPHILS # (AUTO) 10.2 /CMM (1.8-8.9); NEUTROPHILS % (AUTO) 79.9 % (43.0-81.0); PLATELET COUNT (AUTO) 411 /CMM (150-450); RED BLOOD CELL COUNT(AUTO) 2.42 MIL/uL (4.0-5.2); WHITE BLOOD COUNT (AUTO) 12.8 K/uL (4.3-11.0)
[2021-03-13 10:43] LABS: CARBON DIOXIDE 23 mmol/L (21-32); CHLORIDE 107 mmol/L (98-107); CREATININE 5.7 mg/dL (0.6-1.3); GLUCOSE 141 mg/dL (74-106); POTASSIUM 4.8 mmol/L (3.5-5.1); SODIUM SERUM 148 mmol/L (136-145)
[2021-03-13 10:45] LABS: UREA NITROGEN, BLOOD 97 mg/dL (7-18)
--- NOTE | 2021-03-13 11:00 | NUR ---
RN NOTE JOVITA VANCE, INFORMED OF PT BUN 97
[2021-03-13] MEDS: LORAZEPAM INJ 2 MG/ML VIAL IV PRN (11:06)
--- NOTE | 2021-03-13 11:10 | NUR ---
RN NOTE PER DR JAY, ADMIN 1MG ATIVAN
[2021-03-13 12:00] VITALS: BP 115/46
--- NOTE | 2021-03-13 13:37 | NUR ---
RN NOTE PER JOVITA VANCE, HOLD HYDRALIZINE 100MG AND ISOSORBIDE 20MG FOR PT BP OF 115/46
--- NOTE | 2021-03-13 15:00 | NUR ---
RN NOTE PT HANDOFF REPORT GIVEN TO NIMA GLASER. PT IN STABLE CONDITION, ON SAME VENT SETTING, SPO2 100%. ALL PT SAFETY PRECAUTIONS IN PLACE.
[2021-03-13 16:00] VITALS: BP 112/29
[2021-03-13] MEDS ORDERED: PHENYTOIN SODIUM IV 100 MG/2ML VIAL IV SCH (17:00)
[2021-03-13] MEDS: PHENYTOIN SODIUM IV 100 MG/2ML VIAL IV SCH (17:36)
--- NOTE | 2021-03-13 17:52 | NUR ---
TELE/RN NOTES DR. JAY ORDER VIMPAT 200MG IV X1 NOW AND VIMPAT 100MG EVERY 12 HOUR AT 2100 AND 0900. NOTED AND CARRIED OUT.
[2021-03-13] MEDS: AMLODIPINE BESYLATE 10 MG TABLET PO SCH (17:59)
[2021-03-13] MEDS ORDERED: LACOSAMIDE 200 MG in IV NS 0.9% 100 ML IV ONE (18:00)
--- NOTE | 2021-03-13 19:00 | NUR ---
RN NOTE RECEIVED PATIENT IN BED, DAUGHTER AT BEDSIDE, OBTUNDED, IN NO S/SX OF ACUTE DISTRESS AT THIS TIME. ON TRACH TO MECHANICAL VENT WITH SETTINGS PRESCRIBED, SATURATION AT 100%, SR ON THE MONITOR, HR IS 74. NOTED IV SITE AT R FOOT 20G, AND NASEEM MIDLINE, ALL HUBS PATENT AND FLUSHING WELL, NO S/S OF INFECTION OR INFILTRATION. NOTED GTUBE INTACT POSITIVE PLACEMENT NOTED, NO RESIDUAL, WITH TUBE FEEDING OF NEPRO AT 40 ML/HR. BLADDER SCAN DONE, RESULTED 64 ML. SAFETY MEASURES IMPLEMENTED. PATIENT BED ALARM IS ON. HEAD OF BED ELEVATED. BED IS LOCKED, IN LOWEST POSITION AND SIDE RAILS UP. CALL LIGHT WITHIN REACH OF THE PATIENT. WILL CONTINUE TO MONITOR AND REASSESS FOR ANY CHANGES.
--- NOTE | 2021-03-13 19:28 | NUR ---
RN CLOSING NOTE PATIENT IS IN BED,OBTUNDED. PATIENT IS VENTILATOR DEPENDENT AT THE PRESCRIBED SETTING. PATIENT IN NO APPARENT RESPIRATORY DISTRESS NOTED. NO SIGN AND SYMPTOM OF PAIN NOTED AT THIS TIME. SEEN AND EXAMINED BY MD WITH ORDERS MADE AND CARRIED OUT. ALL DUE MEDICATIONS WAS GIVEN. KEPT PATIENT CLEAN AND DRY AT ALL TIMES. DEBRIDEMENT WAS DONE TODAY BY INDIRA VISUAL BASIC PROGRAMMER. SAFETY PRECAUTIONS WAS IN PLACED BED IN LOWEST POSITION. SIDE RAILS UP X2. CALL LIGHT WITHIN REACH. WILL ENDORSE TO AIRDOX FITTER RN FOR OTIS.
[2021-03-13] MEDS: CEFEPIME 1 GM in IV D5W 50 ML IV SCH (19:38)
[2021-03-13 20:00] VITALS: BP 122/51
[2021-03-13] MEDS ORDERED: LACOSAMIDE 200 MG in IV NS 0.9% 100 ML IV SCH (21:00)
[2021-03-13] MEDS: LACOSAMIDE 100 MG in IV NS 0.9% 50 ML IV SCH (21:22)
[2021-03-13] MEDS: LATANOPROST EYE DROP 0.005% 2.5 ML BOTTLE OP SCH (21:26)
[2021-03-13] MEDS: NEPRO 1,000 ML BOTTLE GT PRN (23:29)
[2021-03-14] VITALS: BP 116/50
[2021-03-14] MEDS: PHENYTOIN SODIUM IV 100 MG/2ML VIAL IV SCH ×3 (01:01→17:58)
[2021-03-14] MEDS: IPRATROPIUM NEB FS 0.5 MG/2.5 ML AMPUL.NEB NEB SCH ×4 (01:46→19:36)
[2021-03-14] MEDS: ALBUTEROL FS 2.5 MG/3 ML VIAL.NEB NEB SCH ×4 (01:46→19:36)
[2021-03-14 04:00] VITALS: BP 121/73
[2021-03-14 06:07] LABS: BASOPHILS # (AUTO) 0.1 /CMM (0.0-0.2); BASOPHILS % (AUTO) 0.8 % (0.0-2.0); EOSINOPHILS % (AUTO) 2.7 % (0.0-6.0); HEMATOCRIT 22 % (33-45); LYMPHOCYTES # (AUTO) 1.6 /CMM (0.8-4.8); LYMPHOCYTES % (AUTO) 13.7 % (20.0-44.0); MEAN CORPUSCULAR HGB CONC 31 g/dl (31.0-36.0); MEAN CORPUSCULAR VOLUME 95 fL (82-100); MONOCYTES # (AUTO) 0.8 /CMM (0.1-1.30); MONOCYTES % (AUTO) 6.9 % (2.0-12.0); NEUTROPHILS % (AUTO) 75.9 % (43.0-81.0); PLATELET COUNT (AUTO) 385 /CMM (150-450); WHITE BLOOD COUNT (AUTO) 11.8 K/uL (4.3-11.0)
[2021-03-14 06:51] LABS: CARBON DIOXIDE 24 mmol/L (21-32); CHLORIDE 107 mmol/L (98-107); CREATININE 5.8 mg/dL (0.6-1.3); GLUCOSE 101 mg/dL (74-106); SODIUM SERUM 146 mmol/L (136-145)
[2021-03-14 07:04] LABS: UREA NITROGEN, BLOOD 99 mg/dL (7-18)
[2021-03-14 07:08] LABS: HEMOGLOBIN 6.8 g/dL (11.5-14.8)
--- NOTE | 2021-03-14 07:15 | NUR ---
RN OPENING NOTE PATIENT RECEIVED IN BED RESTING IN HIGH FOWLERS POSITION. PATIENT OBTUNDED AND VENTILATOR DEPENDENT AT PRESCRIBED SETTINGS. NO APPARENT RESPIRATORY DISTRESS NOTED. NO SIGN AND SYMPTOM OF PAIN NOTED. G-TUBE FEEDING RUNNING NEPRO AT 40 ML/HR. SAFETY PRECAUTIONS IMPLEMENTED, SIDE RAILS UP X2, BED LOCKED IN LOWEST POSITION, CALL LIGHT WITHIN REACH. WILL CONTINUE TO MONITOR AND PROVIDE CARE THROUGHOUT SHIFT.
[2021-03-14 08:00] VITALS: BP 135/56
[2021-03-14] MEDS: hydrALAZINE HCL 50 MG TABLET PO SCH ×3 (08:44→17:00)
[2021-03-14] MEDS: METOCLOPRAMIDE HCL 10 MG TABLET PO SCH ×3 (08:44→18:02)
[2021-03-14] MEDS: ISOSORBIDE DINITRATE (20MG) 20 MG TABLET PO SCH ×3 (08:45→17:00)
[2021-03-14] MEDS: LINEZOLID 600 MG TABLET PO SCH ×2 (08:45→21:55)
[2021-03-14] MEDS: PANTOPRAZOLE 40 MG/PACK PACK GT SCH (08:46)
[2021-03-14] MEDS: FLUCONAZOLE (100 MG) 100 MG TABLET PO SCH (08:46)
[2021-03-14] MEDS: LABETALOL HCL (100MG) 100 MG TABLET PO SCH ×2 (08:47→21:00)
[2021-03-14] MEDS: CHLORHEXIDINE GLUCONATE 15 ML UDC MM SCH ×2 (08:47→18:00)
[2021-03-14] MEDS: SEVELAMER CARBONATE 800 MG POWD.PACK GT SCH ×3 (08:47→18:03)
[2021-03-14] MEDS: DORZOLAMIDE OPTH 2% 10 ML BOTTLE OP SCH ×2 (08:50→17:00)
[2021-03-14] MEDS: LACOSAMIDE 100 MG in IV NS 0.9% 50 ML IV SCH ×2 (08:57→21:23)
[2021-03-14] MEDS: HEPARIN SODIUM, PORCINE 5000 UNITS/1 ML VIAL SQ SCH ×2 (09:00→21:00)
[2021-03-14] MEDS ORDERED: LACOSAMIDE 100 MG in IV NS 0.9% 50 ML IV SCH (09:00)
[2021-03-14 09:39] LABS: EOSINOPHILS % (MANUAL) 3 % (0-4); LYMPHOCYTES % (MANUAL) 19 % (16-48); MONOCYTES % (MANUAL) 5 % (0-11.0); NEUTROPHILS % (MANUAL) 73 (42-76)
[2021-03-14] MEDS: DAKINS QUARTER STRENGTH (0.125%) 480 ML BOTTLE TOP SCH (09:52)
[2021-03-14] MEDS: CLOTRIMAZOLE 1% 15 GM TUBE TP SCH ×2 (09:52→17:00)
[2021-03-14 12:00] VITALS: BP 117/48
--- NOTE | 2021-03-14 13:24 | NUR ---
bladder scan = 120 ml
--- NOTE | 2021-03-14 13:42 | NUR ---
dr. frost at bedside talking to daughter,discussing tx/care,still refusing Hd ,family deciding about care.dr. bacon explained about comfort care if refused HD.PER FAMILY THEY ARE GOING TO DISCUSSED IT.
--- NOTE | 2021-03-14 13:44 | NUR ---
PER DR. MARTNIEZ HOLD BLOOD TRANSFUSION UNTIL THEY DECIDE GOAL OF CARE.
--- NOTE | 2021-03-14 13:45 | NUR ---
RAJIV WALDEN NP MADE AWARE.
[2021-03-14] MEDS: EPOETIN ALFA (4000 UNIT) 4,000 UNIT/ML VIAL IJ SCH (15:18)
[2021-03-14 16:00] VITALS: BP 124/53
[2021-03-14] MEDS: AMLODIPINE BESYLATE 10 MG TABLET PO SCH (18:00)
--- NOTE | 2021-03-14 18:54 | NUR ---
RN OPENING NOTE PATIENT IN BED RESTING IN r FOWLERS POSITION. PATIENT OBTUNDED AND VENTILATOR DEPENDENT AT PRESCRIBED SETTINGS. NO APPARENT RESPIRATORY DISTRESS NOTED. NO SIGN AND SYMPTOM OF PAIN NOTED. G-TUBE FEEDING RUNNING NEPRO AT 40 ML/HR. RESIDUAL OF 10 ML NOTED. PRBC HELD DUE TO MICHELLE ORDERS. WILL CONTINUE TO ENCOURAGE FAMILY TO ADDRESS GOALS. SAFETY PRECAUTIONS IMPLEMENTED, SIDE RAILS UP X2, BED LOCKED IN LOWEST POSITION, CALL LIGHT WITHIN REACH. WILL ENDORSE CARE TO UPCOMING SHIFT.
--- NOTE | 2021-03-14 19:30 | NUR ---
RN NOTE RECEIVED PATIENT IN BED IN SEMI-FOWLERS POSITION. DAUGHTER AT BEDSIDE. PATIENT OBTUNDED AND VENTILATOR DEPENDENT TOLERATING PRESCRIBED SETTINGS. NO RESPIRATORY DISTRESS NOTED. NO SIGN AND SYMPTOM OF PAIN NOTED. G-TUBE NEPRO FEEDING RUNNING AT 40 ML/HR. WILL CONTINUE TO ENCOURAGE FAMILY TO ADDRESS GOALS. SAFETY PRECAUTIONS IMPLEMENTED, SIDE RAILS UP X2, BED LOCKED IN LOWEST POSITION, CALL LIGHT WITHIN REACH.WILL CONT TO MONITOR PT.
[2021-03-14 20:00] VITALS: BP 116/51
[2021-03-14] MEDS: CEFEPIME 1 GM in IV D5W 50 ML IV SCH (20:00)
--- NOTE | 2021-03-14 20:05 | NUR ---
RN NOTE BLADDER SCAN COMPLETED 336 ML. WILL CATH PT PER MD ORDER
[2021-03-14] MEDS: LATANOPROST EYE DROP 0.005% 2.5 ML BOTTLE OP SCH (22:22)
[2021-03-15] VITALS (10 sets, daily range): BP systolic 117–154; BP diastolic 45–66
[2021-03-15] MEDS: PHENYTOIN SODIUM IV 100 MG/2ML VIAL IV SCH ×3 (00:11→18:30)
[2021-03-15] MEDS: ALBUTEROL FS 2.5 MG/3 ML VIAL.NEB NEB SCH ×4 (01:30→19:32)
[2021-03-15] MEDS: IPRATROPIUM NEB FS 0.5 MG/2.5 ML AMPUL.NEB NEB SCH ×4 (01:30→19:32)
--- NOTE | 2021-03-15 04:05 | NUR ---
RN NOTE BLADDER SCAN COMPLETED 82ML.
--- NOTE | 2021-03-15 04:21 | NUR ---
RN NOTE STARNILTON CATH PT 240ML OF YELLOW URINE.
[2021-03-15] MEDS: NEPRO 1,000 ML BOTTLE GT PRN (05:00)
[2021-03-15 06:26] LABS: BASOPHILS # (AUTO) 0.1 /CMM (0.0-0.2); BASOPHILS % (AUTO) 1.1 % (0.0-2.0); EOSINOPHILS % (AUTO) 3.1 % (0.0-6.0); HEMATOCRIT 22 % (33-45); LYMPHOCYTES # (AUTO) 1.5 /CMM (0.8-4.8); LYMPHOCYTES % (AUTO) 11.2 % (20.0-44.0); MEAN CORPUSCULAR HGB CONC 31 g/dl (31.0-36.0); MEAN CORPUSCULAR VOLUME 95 fL (82-100); MONOCYTES # (AUTO) 0.7 /CMM (0.1-1.30); MONOCYTES % (AUTO) 5.6 % (2.0-12.0); NEUTROPHILS # (AUTO) 10.2 /CMM (1.8-8.9); PLATELET COUNT (AUTO) 359 /CMM (150-450); RED BLOOD CELL COUNT(AUTO) 2.32 MIL/uL (4.0-5.2); WHITE BLOOD COUNT (AUTO) 12.9 K/uL (4.3-11.0)
[2021-03-15 06:47] LABS: CALCIUM, SERUM 8.9 mg/dL (8.5-10.1); CARBON DIOXIDE 23 mmol/L (21-32); CHLORIDE 106 mmol/L (98-107); CREATININE 6.1 mg/dL (0.6-1.3); GLUCOSE 107 mg/dL (74-106); POTASSIUM 5.4 mmol/L (3.5-5.1); SODIUM SERUM 146 mmol/L (136-145)
[2021-03-15 06:53] LABS: HEMOGLOBIN 6.7 g/dL (11.5-14.8)
--- NOTE | 2021-03-15 07:20 | NUR ---
RN OPENING NOTE PATIENT RECEIVED IN BED RESTING IN SEMI-FOWLERS POSITION. PATIENT OBTUNDED AND VENTILATOR DEPENDENT AT PRESCRIBED SETTINGS. NO APPARENT RESPIRATORY DISTRESS NOTED. NO SIGN AND SYMPTOM OF PAIN NOTED. RIGHT UPPER MIDLINE AND RIGHT FOOT #20 G INTACT AND PATENT. SAFETY PRECAUTIONS IMPLEMENTED, SIDE RAILS UP X2, BED LOCKED IN LOWEST POSITION, CALL LIGHT WITHIN REACH. WILL CONTINUE TO MONITOR AND PROVIDE CARE THROUGHOUT SHIFT.
[2021-03-15 07:28] LABS: UREA NITROGEN, BLOOD 109 mg/dL (7-18)
--- NOTE | 2021-03-15 07:30 | NUR ---
RN NOTE PT REMAINED STABLE DURING SHIFT. ENDORSED PT TO AM RN FOR CONT. OF CARE
[2021-03-15 08:12] LABS: EOSINOPHILS % (MANUAL) 2 % (0-4); LYMPHOCYTES % (MANUAL) 14 % (16-48); MONOCYTES % (MANUAL) 8 % (0-11.0); NEUTROPHILS % (MANUAL) 76 (42-76)
[2021-03-15] MEDS: HEPARIN SODIUM, PORCINE 5000 UNITS/1 ML VIAL SQ SCH ×2 (09:00→21:22)
[2021-03-15] MEDS: SEVELAMER CARBONATE 800 MG POWD.PACK GT SCH ×3 (09:09→21:04)
[2021-03-15] MEDS: PANTOPRAZOLE 40 MG/PACK PACK GT SCH (09:10)
[2021-03-15] MEDS: METOCLOPRAMIDE HCL 10 MG TABLET PO SCH ×3 (09:10→21:19)
[2021-03-15] MEDS: CHLORHEXIDINE GLUCONATE 15 ML UDC MM SCH ×3 (09:16→21:03)
[2021-03-15] MEDS: LACOSAMIDE 100 MG in IV NS 0.9% 50 ML IV SCH ×2 (09:16→21:01)
[2021-03-15] MEDS: DORZOLAMIDE OPTH 2% 10 ML BOTTLE OP SCH ×2 (09:17→17:00)
[2021-03-15] MEDS: hydrALAZINE HCL 50 MG TABLET PO SCH ×3 (09:18→21:03)
[2021-03-15] MEDS: FLUCONAZOLE (100 MG) 100 MG TABLET PO SCH (09:18)
[2021-03-15] MEDS: ISOSORBIDE DINITRATE (20MG) 20 MG TABLET PO SCH ×3 (09:18→21:17)
[2021-03-15] MEDS: DAKINS QUARTER STRENGTH (0.125%) 480 ML BOTTLE TOP SCH (09:19)
[2021-03-15] MEDS: CLOTRIMAZOLE 1% 15 GM TUBE TP SCH ×2 (09:19→17:00)
[2021-03-15] MEDS: LINEZOLID 600 MG TABLET PO SCH ×2 (09:19→21:19)
[2021-03-15] MEDS: LABETALOL HCL (100MG) 100 MG TABLET PO SCH ×2 (09:19→21:00)
--- NOTE | 2021-03-15 14:07 | NUR ---
bladder scan = 100 mL
--- NOTE | 2021-03-15 18:57 | NUR ---
RN OPENING NOTE PATIENT IN BED RESTING IN SEMI-FOWLERS POSITION. PATIENT OBTUNDED AND VENTILATOR DEPENDENT AT PRESCRIBED SETTINGS. NO APPARENT RESPIRATORY DISTRESS NOTED. NO SIGN AND SYMPTOM OF PAIN NOTED. RIGHT UPPER MIDLINE AND RIGHT FOOT #20 G INTACT AND PATENT. FAMILY AGREED WITH HEMODIALYSIS CATHETER INSERTION AND SIGNED CONSENT. RIGHT IJ DIALYSIS CATHETER 13 F INSERTED BY SPACE AND MISSILE DEFENSE OPERATIONS. DIALYSIS CURRENTLY ONGOING. PATIENT RECEIVED 1 UNIT PRBC AND TOLERATED WELL. SAFETY PRECAUTIONS IMPLEMENTED, SIDE RAILS UP X2, BED LOCKED IN LOWEST POSITION, CALL LIGHT WITHIN REACH. WILL ENDORSE CARE TO UPCOMING SHIFT.
[2021-03-15] MEDS: LATANOPROST EYE DROP 0.005% 2.5 ML BOTTLE OP SCH (21:22)
[2021-03-15] MEDS: CEFEPIME 1 GM in IV D5W 50 ML IV SCH (22:37)
[2021-03-16] VITALS: BP 145/56
[2021-03-16] MEDS: ALBUTEROL FS 2.5 MG/3 ML VIAL.NEB NEB SCH ×4 (01:01→20:03)
[2021-03-16] MEDS: IPRATROPIUM NEB FS 0.5 MG/2.5 ML AMPUL.NEB NEB SCH ×4 (01:01→20:03)
[2021-03-16] MEDS: PHENYTOIN SODIUM IV 100 MG/2ML VIAL IV SCH ×3 (01:09→18:00)
[2021-03-16] MEDS: AMLODIPINE BESYLATE 10 MG TABLET PO SCH ×3 (01:09→17:52)
[2021-03-16 04:00] VITALS: BP 123/48
[2021-03-16] MEDS: NEPRO 1,000 ML BOTTLE GT PRN (05:46)
[2021-03-16 06:50] LABS: BASOPHILS # (AUTO) 0.1 /CMM (0.0-0.2); EOSINOPHILS % (AUTO) 3.1 % (0.0-6.0); HEMATOCRIT 28 % (33-45); LYMPHOCYTES # (AUTO) 1.3 /CMM (0.8-4.8); LYMPHOCYTES % (AUTO) 11.1 % (20.0-44.0); MEAN CORPUSCULAR HGB CONC 32 g/dl (31.0-36.0); MEAN CORPUSCULAR VOLUME 92 fL (82-100); MONOCYTES # (AUTO) 0.8 /CMM (0.1-1.30); MONOCYTES % (AUTO) 6.9 % (2.0-12.0); NEUTROPHILS % (AUTO) 77.9 % (43.0-81.0); PLATELET COUNT (AUTO) 343 /CMM (150-450); RED BLOOD CELL COUNT(AUTO) 3.07 MIL/uL (4.0-5.2); WHITE BLOOD COUNT (AUTO) 11.5 K/uL (4.3-11.0)
--- NOTE | 2021-03-16 07:30 | NUR ---
ULTRASONIC TESTER AM NOTE PATIENT IN BED, RESTING IN SEMI-FOWLERS POSITION. OBTUNDED, WITH PORTEX 7 TO MECHANICAL VENT WITH SETTINGS ORDERED AC 18 TV 500 FIO2 35% PEEP 5, BREATHING EVEN AND UNLABORED. SINUS RHYTHM HR 73 ON MONITOR. NO SIGN AND SYMPTOM OF PAIN NOTED. RIGHT UPPER MIDLINE AND RIGHT FOOT #20 G INTACT AND PATENT. RIGHT IJ HD CATH PLACED ON 03/15, CD[facility], FOR DIALYSIS TODAY. SEE NURSING FLOWSHEET FOR SKIN ISSUES. GTF NEPRO ONGOING, CHECKED FOR PLACEMENT, O RESIDUAL. SAFETY PRECAUTIONS IMPLEMENTED, SIDE RAILS UP X2, BED LOCKED IN LOWEST POSITION, CALL LIGHT WITHIN REACH.
[2021-03-16 07:32] LABS: CALCIUM, SERUM 8.8 mg/dL (8.5-10.1); CARBON DIOXIDE 26 mmol/L (21-32); CHLORIDE 102 mmol/L (98-107); CREATININE 3.9 mg/dL (0.6-1.3); GLUCOSE 112 mg/dL (74-106); SODIUM SERUM 141 mmol/L (136-145); UREA NITROGEN, BLOOD 65 mg/dL (7-18)
[2021-03-16 08:00] VITALS: BP 149/68
[2021-03-16] MEDS: SEVELAMER CARBONATE 800 MG POWD.PACK GT SCH ×3 (08:27→17:44)
[2021-03-16] MEDS: METOCLOPRAMIDE HCL 10 MG TABLET PO SCH ×3 (08:28→17:47)
[2021-03-16] MEDS: FLUCONAZOLE (100 MG) 100 MG TABLET PO SCH (08:29)
[2021-03-16] MEDS: ISOSORBIDE DINITRATE (20MG) 20 MG TABLET PO SCH ×3 (08:29→17:47)
[2021-03-16] MEDS: LINEZOLID 600 MG TABLET PO SCH ×2 (08:29→21:12)
[2021-03-16] MEDS: PANTOPRAZOLE 40 MG/PACK PACK GT SCH (08:29)
[2021-03-16] MEDS: LABETALOL HCL (100MG) 100 MG TABLET PO SCH ×2 (08:29→21:12)
[2021-03-16] MEDS: hydrALAZINE HCL 50 MG TABLET PO SCH ×4 (08:30→17:46)
[2021-03-16] MEDS: HEPARIN SODIUM, PORCINE 5000 UNITS/1 ML VIAL SQ SCH (08:33)
[2021-03-16] MEDS ORDERED: KEY,NONCONTROL,TO KEEP IN PYXI 1 EA MC ONE (08:39)
[2021-03-16] MEDS: LACOSAMIDE 100 MG in IV NS 0.9% 50 ML IV SCH (08:52)
[2021-03-16] MEDS: DORZOLAMIDE OPTH 2% 10 ML BOTTLE OP SCH ×2 (09:02→18:00)
[2021-03-16] MEDS: CLOTRIMAZOLE 1% 15 GM TUBE TP SCH ×2 (09:26→18:01)
[2021-03-16] MEDS: DAKINS QUARTER STRENGTH (0.125%) 480 ML BOTTLE TOP SCH (09:27)
--- NOTE | 2021-03-16 09:30 | NUR ---
RN NOTES DUE MEDS GIVEN BLADDER SCAN = O ML
--- NOTE | 2021-03-16 10:30 | NUR ---
RN NOTES' PER DR. RAJIV WALDEN IS OKAY TO INSERT PROCTOR CATHETER, GARY DAUGHTER IS AWARE, BUT PER DR. Pj MARTINEZ NO PROCTOR CATHETER AT THIS TIME.
[2021-03-16 12:00] VITALS: BP 129/54
[2021-03-16 16:00] VITALS: BP 149/56
[2021-03-16] MEDS: CHLORHEXIDINE GLUCONATE 15 ML UDC MM SCH (17:47)
--- NOTE | 2021-03-16 19:00 | NUR ---
RN NOTE RECEIVED PATIENT IN BED RESTING OBTUNDED ON MECHANICAL VENT TRACH PORTEX #7 AC 500 FIO2:35% PEEP 5 O2:100% ON G-TUBE FEEDING NEPRO 40 CC/HR CHECKED PLACEMENT IN PLACE NO RESIDUAL NOTED,IV SITE IS ON RIGHT UPPER ARM MID LINE AND RIGHT FOOT RIGHT I J FOR HD INTACT PATENT INCONTINENT TO BOWEL/BLADDER HEAD OF THE BED ELEVATED SAFETY MEASURE IMPLEMENT CONTINUE TO MONITOR.
[2021-03-16 20:00] VITALS: BP 133/49
--- NOTE | 2021-03-16 20:10 | NUR ---
RN NOTE BLADDER SCAN DONE URINE ABOUT 220 CC IN BLADDER CONTINUE TO MONITOR.
[2021-03-16] MEDS: CEFEPIME 1 GM in IV D5W 50 ML IV SCH (20:11)
--- NOTE | 2021-03-16 20:17 | NUR ---
RT pt received on current vent settings. trached, portex 7. small white secretions suctioned via trach. vent plugged in to red outlet. spare trach at bedside. ambu bag at [facility]. no sob, no resp distress. will continue to monitor
[2021-03-16] MEDS ORDERED: LACOSAMIDE 50 MG TABLET GT SCH (21:00)
[2021-03-16] MEDS: LACOSAMIDE 50 MG TABLET GT SCH (21:11)
--- NOTE | 2021-03-16 21:55 | NUR ---
RN OPENING NOTES RECEIVED PT FROM NIMA DOWNING. FAMILY AT BEDSIDE. PT IS OBTUNDED, TRACH TO VENT TOLERATING SETTINGS. NO RESP DISTRESS NOTED. PORTEX7 AC 18 TV 500 FIO2 35% PEEP 5. PT ON TELE MONITOR, PRESENTS WITH NSR HR OF 68. IV LINES FLUSHED, ASEPTICALLY. NASEEM MIDLINE AND RIGHT FOOR #20. PT HAS HD CATH PRESENT RIJ. PT HAS GTUBE, AUSCULTATED, RESIDUAL 0, FLUSHED. GT FEEDING RUNNING @40CC/HR ORDERED. SAFETY MEASURES IN PLACE HOB ELEVATED SIDE RAILS UP X2 BED LOCKED IN LOWEST POSITION WITH BED ALARM ON. CALL LIGHT WITHIN REACH.
--- NOTE | 2021-03-16 22:00 | NUR ---
RN NOTE REPORT GIVEN TO JUAN PABLO HERRING FOR CONTINUATION OF CARE.
[2021-03-16] MEDS: LATANOPROST EYE DROP 0.005% 2.5 ML BOTTLE OP SCH (22:08)
[2021-03-16] MEDS: ACETAMINOPHEN 325 MG TABLET MC PRN (22:10)
[2021-03-17] VITALS: BP 134/52
[2021-03-17] MEDS: PHENYTOIN SODIUM IV 100 MG/2ML VIAL IV SCH ×3 (00:12→17:24)
--- NOTE | 2021-03-17 01:07 | NUR ---
RN NOTE @0010 PHENYTOIN LEVEL IS 27.1 ELEVATED, NOTED DOSE CHANGED FROM 100MG TO 150MG. PER DR JAY. NOTIFIED MICROWAVE ENGINEER AND NURS GEOMETRY TUTOR, JEANNE TO ADMINISTER ORDERED. WILL CONT TO MONITOR.
[2021-03-17] MEDS: IPRATROPIUM NEB FS 0.5 MG/2.5 ML AMPUL.NEB NEB SCH ×4 (01:54→19:31)
[2021-03-17] MEDS: ALBUTEROL FS 2.5 MG/3 ML VIAL.NEB NEB SCH ×4 (01:54→19:31)
[2021-03-17 04:00] VITALS: BP 145/56
--- NOTE | 2021-03-17 04:30 | NUR ---
RN NOTE BLADDER SCAN READS RESULT: 154ML NO STRAIGHT CATH AT THIS TIME
--- NOTE | 2021-03-17 06:45 | NUR ---
RN CLOSING NOTE NO SIGNIFICANT CHANGES IN PT CONDITION. PT HAD X2BM, GEN CARE ORAL CARE WOUND CARE ALL DONE. PT STILL ON SAME VENT SETTINGS. TOLERATING WELL. NO SOB OR RESP DISTRESS NOTED. NO S/S OF PAIN NOTED. ALL NEEDS ATTENDED. SAFETY MEASURES IN PLACE HOB ELEVATED SIDE RAILS UP X2 BED LOCKED IN LOWEST POSITION WITH BED ALARM ON. CALL LIGHT WITHIN REACH. WILL ENDORSE TO DAY SHIFT FOR CONTINUATION OF CARE.
[2021-03-17 08:00] VITALS: BP 172/91
--- NOTE | 2021-03-17 08:02 | NUR ---
SPIKE MACHINE HEATER OPENING NOTE PATIENT IS IN BED RESTING, PATIENT IS IN NO ACUTE DISTRESS. PATIENT IS ON TELE MONITOR READING SR 71.PATIENT IS ON TACHE AND VENT TOLERATING WELL. PATIENT HAS A G-TUBE. SAFETY PRECAUTIONS ARE ON, BED IS LOCKED IN THE LOWEST POSITION, SIDE RAILS ARE UP, CALL LIGHT WITHIN REACH, WILL CONTINUE TO MONITOR CLOSELY THROUGHOUT THE SHIFT.
[2021-03-17] MEDS: CHLORHEXIDINE GLUCONATE 15 ML UDC MM SCH ×2 (08:41→17:13)
[2021-03-17] MEDS: PANTOPRAZOLE 40 MG/PACK PACK GT SCH (08:41)
[2021-03-17] MEDS: SEVELAMER CARBONATE 800 MG POWD.PACK GT SCH ×3 (08:42→17:13)
[2021-03-17] MEDS: FLUCONAZOLE (100 MG) 100 MG TABLET PO SCH (08:43)
[2021-03-17] MEDS: ISOSORBIDE DINITRATE (20MG) 20 MG TABLET PO SCH ×3 (08:43→17:14)
[2021-03-17] MEDS: LABETALOL HCL (100MG) 100 MG TABLET PO SCH ×2 (08:43→20:51)
[2021-03-17] MEDS: hydrALAZINE HCL 50 MG TABLET PO SCH ×3 (08:43→17:13)
[2021-03-17] MEDS: LINEZOLID 600 MG TABLET PO SCH ×2 (08:44→20:52)
[2021-03-17] MEDS: METOCLOPRAMIDE HCL 10 MG TABLET PO SCH ×3 (08:44→17:13)
[2021-03-17] MEDS: LACOSAMIDE 50 MG TABLET GT SCH ×2 (08:45→20:53)
[2021-03-17] MEDS: CLOTRIMAZOLE 1% 15 GM TUBE TP SCH ×2 (09:15→18:42)
[2021-03-17] MEDS: DORZOLAMIDE OPTH 2% 10 ML BOTTLE OP SCH ×2 (09:15→18:41)
[2021-03-17] MEDS: DAKINS QUARTER STRENGTH (0.125%) 480 ML BOTTLE TOP SCH (09:15)
[2021-03-17 12:00] VITALS: BP 138/53
[2021-03-17] MEDS ORDERED: GENTAMICIN 120 MG in IV D5W 100 ML IV ONE (12:00)
--- NOTE | 2021-03-17 12:02 | NUR ---
SYSTEMS AUDITOR NOTE PATIENT HAD A BLADDER SCAN PERFORMED, URINE OUTPUT IS 0ML AT THE MOMENT, WILL REPEAT BLADDER SCAN EVERY 8HRS, IF OUTPUT MORE THEN 300CC PERFORM STRAIGHT CATHETERIZATION.
[2021-03-17] MEDS: NEPRO 1,000 ML BOTTLE GT PRN (13:30)
[2021-03-17] MEDS ORDERED: EPOETIN ALFA (4000 UNIT) 4,000 UNIT/ML VIAL SQ SCH (14:43)
--- NOTE | 2021-03-17 15:10 | NUR ---
LIFE TEACHER NOTE PATIENTS FAMILY REQUESTED ANOTHER BLADDER SCAN, 126CC WAS FOUND IN THE BLADDER, NO ON AND OUT CATHETER NEEDED AT THIS TIME.
[2021-03-17] MEDS: EPOETIN ALFA (4000 UNIT) 4,000 UNIT/ML VIAL SQ SCH (15:23)
[2021-03-17 16:00] VITALS: BP 143/56
[2021-03-17] MEDS ORDERED: PHENOBARBITAL SODIUM 1,000 MG in IV NS 0.9% 100 ML IV ONE (16:30)
[2021-03-17] MEDS: AMLODIPINE BESYLATE 10 MG TABLET PO SCH (17:14)
[2021-03-17] MEDS: PHENOBARBITAL 30 MG TABLET PO SCH (17:14)
--- NOTE | 2021-03-17 18:21 | NUR ---
RT END OF THE SHIFT REPORT, PT. 71 Y OLD FEMALE TRACH PORTEX # 7 ON VENT WITH NOTED SETTINGS, ALARMS ARE SET AND FUNCTIONAL, EQUAL CHEST RISE NOTED, VENT PLUGGED INTO RED OUTLET, AMBU BAG REMAIN AT THE BEDSIDE. B/S RALES BILATERALLY TX'S GIVEN INLINE RESHMA. WELL NO ADVERSE REACTION NOTED. FAMILY MEMBER AT THE BEDSIDE. SUCTIONED FOR MINIMAL AMOUNT OF YELLOW THICK SECRETIONS, NO DISTRESS NOTED T/O DAY HME CHANGED, LOBBY PORTER DONE, PT. RESHMA. VENT SETTINGS WITH NO CHANGES. REPORT WILL BE PASS TO BOILER CLEANER. Addendum: 03/17/21 at 1822 by TYSON REA RT Amended: Links added.
--- NOTE | 2021-03-17 18:47 | NUR ---
MITTEN SEWER CLOSING NOTE PATIENT IS IN BED RESTING, PATIENT IS IN NO ACUTE DISTRESS. PATIENT IS ON TELE MONITOR READING SR 70s. PATIENT IS ON TACHE AND VENT TOLERATING WELL. PATIENT HAS A G-TUBE FEEING, TOLERATING WELL. SAFETY PRECAUTIONS ARE ON, BED IS LOCKED IN THE LOWEST POSITION, SIDE RAILS ARE UP, CALL LIGHT WITHIN REACH, ENDORSE PATIENT TO PHYSICAL EDUCATION INSTRUCTOR NURSE FOR OTIS.
--- NOTE | 2021-03-17 19:20 | NUR ---
RN NOTE RECEIVED PATIENT IN BED RESTING OBTUNDED ON MECHANICAL VENT O2:100% ON G-TUBE FEEDING NEPRO 40CC/HR CHECKED PLACEMENT,IN PLACE NO RESIDUAL NOTED,IV SITE IS ON RIGHT FOOT AND RIGHT UPPER ARM MID LINE AND RIGHT IJ PERMCATH FOR HD INTACT PATENT,HEAD OF BED ELEVATED,SAFETY MEASURE IMPLEMENT,BED IN LOW POSITON AND LOCKED CONTINUE TO MONITOR.
[2021-03-17 20:00] VITALS: BP 139/57
--- NOTE | 2021-03-17 20:15 | NUR ---
RN NOTE BLADDER SCAN DONE MD ORDERED SHOWED 410 CC URINE IN BLADDER,DONE STRAIGHT CATHETER IN AND OUT AND COLLECTED 415 CC URINE,CONTINUE TO MONITOR
[2021-03-17] MEDS: LATANOPROST EYE DROP 0.005% 2.5 ML BOTTLE OP SCH (22:06)
[2021-03-18] VITALS: BP 123/49
[2021-03-18] MEDS: PHENYTOIN SODIUM IV 100 MG/2ML VIAL IV SCH ×3 (00:55→16:55)
[2021-03-18] MEDS: ALBUTEROL FS 2.5 MG/3 ML VIAL.NEB NEB SCH ×4 (01:41→19:46)
[2021-03-18] MEDS: IPRATROPIUM NEB FS 0.5 MG/2.5 ML AMPUL.NEB NEB SCH ×4 (01:41→19:46)
[2021-03-18 04:00] VITALS: BP 131/50
--- NOTE | 2021-03-18 04:10 | NUR ---
RN NOTE BLADDER SCAN DONE AT 04:00 AM URINE 0 ML SHOWED IN BLADDER NO STRAIGHT CATHETER REQUIRED CONTINUE TO MONITOR
[2021-03-18] MEDS ORDERED: GENTAMICIN 80 MG in IV D5W 50 ML IV PRN (06:00)
--- NOTE | 2021-03-18 06:27 | NUR ---
RN NOTE PATIENT REMAINS ON OBTUNDED ON MECHANICAL VENT NO SOB NO ACUTE DISTRESS NOTED,ALL DUE MEDS GIVEN MD ORDERED,ENDORSE NEXT COMING SHIFT FOR CONTINUATION OF CARE.
[2021-03-18 06:35] LABS: BASOPHILS # (AUTO) 0.1 /CMM (0.0-0.2); EOSINOPHILS % (AUTO) 3.3 % (0.0-6.0); HEMATOCRIT 26 % (33-45); HEMOGLOBIN 8.3 g/dL (11.5-14.8); LYMPHOCYTES # (AUTO) 1.6 /CMM (0.8-4.8); LYMPHOCYTES % (AUTO) 12.9 % (20.0-44.0); MEAN CORPUSCULAR HGB CONC 32 g/dl (31.0-36.0); MEAN CORPUSCULAR VOLUME 95 fL (82-100); MONOCYTES % (AUTO) 8.3 % (2.0-12.0); NEUTROPHILS # (AUTO) 9.1 /CMM (1.8-8.9); NEUTROPHILS % (AUTO) 74.5 % (43.0-81.0); PLATELET COUNT (AUTO) 329 /CMM (150-450); RED BLOOD CELL COUNT(AUTO) 2.78 MIL/uL (4.0-5.2); WHITE BLOOD COUNT (AUTO) 12.2 K/uL (4.3-11.0)
[2021-03-18 07:16] LABS: CALCIUM, SERUM 9.4 mg/dL (8.5-10.1); CARBON DIOXIDE 25 mmol/L (21-32); CHLORIDE 102 mmol/L (98-107); CREATININE 3.4 mg/dL (0.6-1.3); GLUCOSE 99 mg/dL (74-106); MAGNESIUM 2.7 mg/dL (1.8-2.4); PHOSPHORUS 3.7 mg/dL (2.5-4.9); POTASSIUM 4.1 mmol/L (3.5-5.1); SODIUM SERUM 142 mmol/L (136-145); UREA NITROGEN, BLOOD 57 mg/dL (7-18)
--- NOTE | 2021-03-18 07:30 | NUR ---
ELECTRICAL SIGN SERVICER OPENING NOTES RECEIVED PT IN BED ASLEEP IN NO ACUTE SIGNS OF DISTRESS. HOB ELEVATED. PT IS OBTUNDED WITH TRACH CONNECTED TO MECH VENT AT PRESCRIBED SETTINGS, TOLERATING SETTINGS WELL WITH NO SOB NOTED. ON TELE MONITOR WITH CURRENT READING OF NSR WITH HR ON THE 70'S, NO CARDIAC DISTRESS OBSERVED AT THIS TIME. ON NPO WITH G-TUBE FEED OF NEPHRO @ 40ML/HR, TOLERATING WELL. ASPIRATION PRECAUTIONS MAINTAINED. RIJ HD CATH IN PLACE. PIV ACCESS ON RIGHT FOOT G#20 AND MIDLINE ON NASEEM BOTH INTACT AND PATENT. SAFETY MEASURES IN PLACE: CALL LIGHT WITHIN REACH. BED LOCKED AND IN LOWEST POSITION WITH SIDE RAILS UP X3. WILL CONTINUE TO MONITOR.
[2021-03-18 08:00] VITALS: BP 135/52
[2021-03-18] MEDS: CHLORHEXIDINE GLUCONATE 15 ML UDC MM SCH ×2 (08:45→16:55)
[2021-03-18] MEDS: FLUCONAZOLE (100 MG) 100 MG TABLET PO SCH (08:45)
[2021-03-18] MEDS: SEVELAMER CARBONATE 800 MG POWD.PACK GT SCH ×3 (08:45→17:33)
[2021-03-18] MEDS: LACOSAMIDE 50 MG TABLET GT SCH ×2 (08:46→20:38)
[2021-03-18] MEDS: PANTOPRAZOLE 40 MG/PACK PACK GT SCH (08:46)
[2021-03-18] MEDS: LINEZOLID 600 MG TABLET PO SCH ×2 (08:47→20:39)
[2021-03-18] MEDS: METOCLOPRAMIDE HCL 10 MG TABLET PO SCH ×3 (08:47→17:34)
[2021-03-18] MEDS: PHENOBARBITAL 30 MG TABLET PO SCH ×2 (08:49→16:54)
[2021-03-18] MEDS: DORZOLAMIDE OPTH 2% 10 ML BOTTLE OP SCH ×2 (08:53→17:35)
[2021-03-18] MEDS: hydrALAZINE HCL 50 MG TABLET PO SCH ×3 (08:54→16:55)
[2021-03-18] MEDS: ISOSORBIDE DINITRATE (20MG) 20 MG TABLET PO SCH ×3 (08:54→16:56)
[2021-03-18] MEDS: LABETALOL HCL (100MG) 100 MG TABLET PO SCH ×2 (08:55→20:40)
[2021-03-18] MEDS: DAKINS QUARTER STRENGTH (0.125%) 480 ML BOTTLE TOP SCH (08:56)
[2021-03-18] MEDS: CLOTRIMAZOLE 1% 15 GM TUBE TP SCH ×2 (08:56→17:31)
[2021-03-18 12:00] VITALS: BP 129/55
[2021-03-18] MEDS ORDERED: NS 0.9% IV ONE (12:00)
[2021-03-18] MEDS ORDERED: COLISTIMETHATE SODIUM IV ONE (12:00)
--- NOTE | 2021-03-18 12:45 | NUR ---
RN NOTE BLADDER SCAN PERFORMED AT 1200, TOTAL OF 94 ML URINE SEEN. NO STRAIGHT CATH DONE.
[2021-03-18 16:00] VITALS: BP 148/53
--- NOTE | 2021-03-18 16:58 | NUR ---
RN NOTE EEG ROUTINE COMPLETED BY WIPER BLENDER
[2021-03-18] MEDS: AMLODIPINE BESYLATE 10 MG TABLET PO SCH (17:33)
--- NOTE | 2021-03-18 17:41 | NUR ---
RN NOTES PT. STARTED ON HEMODIALYSIS VIA RIGHT IJ HD CATHETER BY HD RN MELANI ALL BP MEDS HELD PER HD NURSE.
--- NOTE | 2021-03-18 18:34 | NUR ---
GLUELINE WORKER CLOSING NOTES PT IN BED LYING AT MODERATE HIGH BACKREST POSITION. OBTUNDED. DAUGHTER AT BEDSIDE. ON TRACH CONNECTED TO [facility], INCH VENT AT PRESCRIBED SETTINGS, TOLERATING SETTINGS WELL WITH NO SOB NOTED DURING SHIFT. PT ON ONGOING HEMODIALYSIS VIA RIJ HD CATH AT THIS TIME. PIV ACCESS ON RIGHT FOOT G#20 AND MIDLINE ON NASEEM BOTH INTACT, PATENT AND FLUSHES WELL. ON EXTERNAL CHILD SUPPORT OFFICER WITH CURRENT READING OF NSR WITH HR ON THE 70'S, NO CARDIAC DISTRESS NOTED. ON NPO WITH G-TUBE FEED OF NEPHRO @ 40ML/HR, TOLERATING WELL. ASPIRATION PRECAUTIONS MAINTAINED. PT TURNED AND REPOSITIONED Q 2HRS AND PRN. SAFETY MEASURES IN PLACE: CALL LIGHT WITHIN REACH. BED LOCKED AND IN LOWEST POSITION WITH SIDE RAILS UP X3. WILL ENDORSE OTIS TO ALUM OPERATOR NURSE
[2021-03-18 20:00] VITALS: BP 142/54
--- NOTE | 2021-03-18 20:00 | NUR ---
RN NOTE RECEIVED PT IN BED, OBTUNDED ON VENT VIA TRACH WITH FIO2 35% SATING 97%. PT OON TELE MONITOR SHOWING SR WITH HR IN 70s.WILL CONTINUE WITH PLAN OF CARE.
[2021-03-18] MEDS: NEPRO 1,000 ML BOTTLE GT PRN (20:43)
--- NOTE | 2021-03-18 20:45 | NUR ---
PT HAS URINE RESIDUAL OF 319, REMOVED 200 ML.
[2021-03-18] MEDS: LATANOPROST EYE DROP 0.005% 2.5 ML BOTTLE OP SCH (21:06)
[2021-03-19] VITALS: BP 146/60
[2021-03-19] MEDS ORDERED: COLISTIMETHATE SODIUM IV SCH
[2021-03-19] MEDS ORDERED: NS 0.9% IV SCH
[2021-03-19] MEDS: PHENYTOIN SODIUM IV 100 MG/2ML VIAL IV SCH ×3 (01:21→17:21)
[2021-03-19] MEDS: IPRATROPIUM NEB FS 0.5 MG/2.5 ML AMPUL.NEB NEB SCH ×4 (02:21→20:14)
[2021-03-19] MEDS: ALBUTEROL FS 2.5 MG/3 ML VIAL.NEB NEB SCH ×4 (02:21→20:14)
[2021-03-19 04:00] VITALS: BP 152/66
--- NOTE | 2021-03-19 04:00 | NUR ---
bladder scan done 48 ml residual noted.
[2021-03-19] MEDS: ACETAMINOPHEN 325 MG TABLET MC PRN ×2 (04:04→21:16)
--- NOTE | 2021-03-19 05:30 | NUR ---
PT TEMP AT 0400 WAS 100.8, TYLNOL 650 MG GIVEN , COOLING MEASURE PROVIDED, TEMP DROPPED TO 98.5.
--- NOTE | 2021-03-19 07:15 | NUR ---
REPORT GIVEN TO ONCOMING SHIFT FOR OTIS.
--- NOTE | 2021-03-19 07:20 | NUR ---
RN NOTE PATIENT OBSERVED IN BED OBTUNDED, HOB ELEVATED OF ASPIRATION PRECAUTION, AFEBRILE, ON TRACHEOSTOMY WITH MECHANICAL VENTILATOR , 98% O2SAT TOLERATING WELL, EVEN AND UNLABORED RESPIRATION, SR ON TELE MONITOR WITH HR OF 97 AT THIS TIME, ON GT FEEDING TOLERATING WELL WITH 10 CC OF RESIDUAL, PATENT UPON ASSESSMENT, SAFETY MEASURES OBSERVED, CALL LIGHT WITHIN REACH, BED WHEELS LOCK,WILL CONTINUE TO MONITOR RESIDENT
[2021-03-19 07:42] LABS: CALCIUM, SERUM 9.1 mg/dL (8.5-10.1); CARBON DIOXIDE 27 mmol/L (21-32); CHLORIDE 102 mmol/L (98-107); CREATININE 2.6 mg/dL (0.6-1.3); GLUCOSE 82 mg/dL (74-106); MAGNESIUM 2.3 mg/dL (1.8-2.4); PHOSPHORUS 2.3 mg/dL (2.5-4.9); POTASSIUM 4.1 mmol/L (3.5-5.1); SODIUM SERUM 140 mmol/L (136-145); UREA NITROGEN, BLOOD 39 mg/dL (7-18)
[2021-03-19 07:45] LABS: BASOPHILS # (AUTO) 0.1 /CMM (0.0-0.2); EOSINOPHILS % (AUTO) 2.9 % (0.0-6.0); HEMATOCRIT 25 % (33-45); HEMOGLOBIN 8.1 g/dL (11.5-14.8); LYMPHOCYTES # (AUTO) 1.9 /CMM (0.8-4.8); MEAN CORPUSCULAR HGB CONC 32 g/dl (31.0-36.0); MEAN CORPUSCULAR VOLUME 94 fL (82-100); MONOCYTES # (AUTO) 1.1 /CMM (0.1-1.30); MONOCYTES % (AUTO) 9.5 % (2.0-12.0); NEUTROPHILS # (AUTO) 8.2 /CMM (1.8-8.9); NEUTROPHILS % (AUTO) 70.6 % (43.0-81.0); PLATELET COUNT (AUTO) 339 /CMM (150-450); RED BLOOD CELL COUNT(AUTO) 2.69 MIL/uL (4.0-5.2); WHITE BLOOD COUNT (AUTO) 11.6 K/uL (4.3-11.0)
--- NOTE | 2021-03-19 07:49 | NUR ---
RT Pt received trached on mechanical ventilation with noted settings. Vent is plugged into red outlet, BVM, and spare trach (same size) by bedside. No SOB or respiratory distress noted Addendum: 03/19/21 at 1801 by CAITIE JOHNSON RT Amended: Links added.
[2021-03-19 08:00] VITALS: BP 145/66
[2021-03-19] MEDS: CHLORHEXIDINE GLUCONATE 15 ML UDC MM SCH ×2 (08:13→17:13)
[2021-03-19] MEDS: LABETALOL HCL (100MG) 100 MG TABLET PO SCH ×2 (08:14→21:17)
[2021-03-19] MEDS: SEVELAMER CARBONATE 800 MG POWD.PACK GT SCH ×3 (08:15→17:13)
[2021-03-19] MEDS: FLUCONAZOLE (100 MG) 100 MG TABLET PO SCH (08:15)
[2021-03-19] MEDS: hydrALAZINE HCL 50 MG TABLET PO SCH ×3 (08:15→17:15)
[2021-03-19] MEDS: LACOSAMIDE 50 MG TABLET GT SCH ×2 (08:16→21:16)
[2021-03-19] MEDS: PHENOBARBITAL 30 MG TABLET PO SCH ×2 (08:16→17:15)
[2021-03-19] MEDS: METOCLOPRAMIDE HCL 10 MG TABLET PO SCH ×3 (08:16→17:16)
[2021-03-19] MEDS: LINEZOLID 600 MG TABLET PO SCH ×2 (08:17→21:16)
[2021-03-19] MEDS: ISOSORBIDE DINITRATE (20MG) 20 MG TABLET PO SCH ×3 (08:17→17:16)
[2021-03-19] MEDS: PANTOPRAZOLE 40 MG/PACK PACK GT SCH (08:17)
[2021-03-19] MEDS: CLOTRIMAZOLE 1% 15 GM TUBE TP SCH ×2 (08:30→17:29)
[2021-03-19] MEDS: DAKINS QUARTER STRENGTH (0.125%) 480 ML BOTTLE TOP SCH (08:31)
[2021-03-19] MEDS: DORZOLAMIDE OPTH 2% 10 ML BOTTLE OP SCH ×2 (08:34→17:39)
--- NOTE | 2021-03-19 10:20 | NUR ---
RN NOTE SEEN BY [employer]SON [employer]RBINA ENTRY LEVEL BUSINESS ANALYST AT BEDSIDE, MADE AWARE REGARDING ORDER TO COLLECT U/A SPECIMEN, BLADDER SCAN OF 48 CC BUT UNABLE TO COLLECT. WILL CONTINUE TO MONITOR RESIDENT URINE AMOUNT THRU BLADDER SCAN PER ENTRY LEVEL BUSINESS ANALYST.
--- NOTE | 2021-03-19 10:42 | NUR ---
RN NOTE INFORMED DAUGHTER "JOHANA" REGARDING HD CATH PLACEMENT, PATIENT UNABLE TO GIVE CONSENT, DAUGHTER GAVE CONSENT VIA PHONE WITNESS BY TWO RN,
[2021-03-19] MEDS: PROSOURCE / PROSTAT (PYXIS) 30 ML UDC GT SCH ×2 (11:00→16:17)
[2021-03-19] MEDS ORDERED: LIDOCAINE HCL/MPF 1% 30 ML VIAL IJ ONE (11:26)
[2021-03-19] MEDS ORDERED: IOHEXOL 50 ML IV ONE (11:26)
[2021-03-19] MEDS ORDERED: HEPARIN SODIUM, PORCINE 1,000 UNIT/ML VIAL ONE (11:26)
[2021-03-19 12:00] VITALS: BP 138/52
--- NOTE | 2021-03-19 13:20 | NUR ---
RN NOTE PATIENT TRANSPORTED TO OR FOR PERMA HD CATH PLACEMENT, PATIENT VTS WNL, NOT IN DISTRESS, PRE-OP CHECK LIST DONE AND COMPLETED, AWAITING PATIENT TO RETURN
--- NOTE | 2021-03-19 13:20 | NUR ---
RN NOTE HOLD MEDICATION ORDERED, FOR PERMA CATH PLACEMENT, WILL CONTINUE TO MONITOR RESIDENT
--- NOTE | 2021-03-19 14:20 | NUR ---
RN NOTE PATIENT TRANSPORTED BACK FROM OR TO PATIENT ROOM, PACU NURSE AT BEDSIDE, PACU NURSE WILL CONTINUE TO MONITOR PATIENT AT THIS TIME. AWAITING REPORT/ENDORSEMENT.
--- NOTE | 2021-03-19 15:01 | NUR ---
RN NOTE RECEIVED REPORT FROM RECOVERY NURSE, PER OR MD ORDER OK TO RESUME GT FEEDING AND MEDICATION, PATIENT VTS WITHIN NORMAL LIMIT, BREATHING EVEN AND UNLABORED, WILL CONTINUE TO MONITOR RESIDENT.
[2021-03-19] MEDS: EPOETIN ALFA (4000 UNIT) 4,000 UNIT/ML VIAL SQ SCH (15:28)
[2021-03-19 16:00] VITALS: BP 127/74
[2021-03-19] MEDS: AMLODIPINE BESYLATE 10 MG TABLET PO SCH (17:16)
[2021-03-19] MEDS: Z GUARD REMEDY 2 OZ OINT TP PRN (17:30)
--- NOTE | 2021-03-19 18:49 | NUR ---
MAINFRAME ARCHITECT NOTE PATIENT OBSERVED IN BED, OBTUNDED, ON TRACHEOSTOMY WITH MECHANICAL VENTILATION, BREATHING EVEN AND UNLABORED, NO BOWEL DISTENTION NOTED, AFEBRILE THROUGHOUT THE SHIFT, ON GT FEEDING TOLERATING WELL WITH 0 RESIDUAL, S/P HD CATH PLACEMENT, NO S/S OF BLEEDING AT THIS TIME. WOUND TREATMENT DONE ORDERED, DUE MEDICATION GIVEN, UNABLE TO COLLECT SPECIMEN OF UA, WILL ENDORSE TO NEXT SHIFT, BED WHEELS LOCK, CALL LIGHT WITHIN REACH, SAFETY MEASURES OBSERVED Addendum: 03/19/21 at 1859 by JOSE DANIEL DONAHUE RN ON TELE MONITOR SR HR OF 71.
[2021-03-19 20:00] VITALS: BP 141/48
--- NOTE | 2021-03-19 20:00 | NUR ---
MONOMER RECOVERY SUPERVISOR NOTE RECEIVED PATIENT IN BED. PATIENT OBTUNDED. ON MECHANICAL VENT: PORTEX 7, AC 18 TV 500 PEEP 5. NO RESP DISTRESS AT THIS TIME. NO S/S PAIN AT THIS TIME. EXTERNAL TELE MONITOR READS SINUS RHYTHM. IN NO APPARENT DISTRESS. IV ACCESS IN NASEEM MIDLINE PATENT AND SALINE LOCKED. GTUBE IS PRESENT NO RESIDUAL RUNNING NEPRO@40ML/HR. DAUGHTER AT BEDSIDE. BED IS LOW AND LOCKED HOB ELEVATED IN SEMI FOWLERS, SIDE RAILS UP X2, CALL LIGHT WITHIN REACH. WILL CONTINUE TO MONITOR THROUGHOUT SHIFT.
--- NOTE | 2021-03-19 20:21 | NUR ---
RN NOTE BLADDER SCAN SHOWED 24ML.
[2021-03-19] MEDS: NS 0.9% IV SCH (20:24)
[2021-03-19] MEDS: COLISTIMETHATE SODIUM IV SCH (20:24)
[2021-03-19] MEDS: LATANOPROST EYE DROP 0.005% 2.5 ML BOTTLE OP SCH (21:16)
[2021-03-20] VITALS: BP 114/41
[2021-03-20] MEDS: PHENYTOIN SODIUM IV 100 MG/2ML VIAL IV SCH ×3 (00:07→16:37)
[2021-03-20] MEDS: ALBUTEROL FS 2.5 MG/3 ML VIAL.NEB NEB SCH ×4 (01:57→19:25)
[2021-03-20] MEDS: IPRATROPIUM NEB FS 0.5 MG/2.5 ML AMPUL.NEB NEB SCH ×4 (01:57→19:25)
[2021-03-20 04:00] VITALS: BP 117/43
--- NOTE | 2021-03-20 04:00 | NUR ---
RN NOTE BLADDER SCANNER SHOWED 0ML.
--- NOTE | 2021-03-20 06:16 | NUR ---
DARKROOM WORKER NOTE PATIENT RESTING IN BED. OBTUNDED. ON MECHANICAL VENT: NO CHANGES. NO RESP DISTRESS . NO S/S PAIN. TELE MONITOR READS SINUS RHYTHM. NO DISTRESS. IV IN NASEEM MIDLINE. GTUBE RUNNING NEPRO@40ML/HR. BED IS LOW AND LOCKED HOB ELEVATED IN SEMI FOWLERS, SIDE RAILS UP X2, CALL LIGHT WITHIN REACH. WILL ENDORSE TO ONCOMING SHIFT.
[2021-03-20 07:24] LABS: BASOPHILS # (AUTO) 0.1 /CMM (0.0-0.2); BASOPHILS % (AUTO) 0.9 % (0.0-2.0); EOSINOPHILS % (AUTO) 3.3 % (0.0-6.0); HEMATOCRIT 23 % (33-45); HEMOGLOBIN 7.2 g/dL (11.5-14.8); LYMPHOCYTES # (AUTO) 2.1 /CMM (0.8-4.8); LYMPHOCYTES % (AUTO) 16.7 % (20.0-44.0); MEAN CORPUSCULAR HGB CONC 32 g/dl (31.0-36.0); MEAN CORPUSCULAR VOLUME 98 fL (82-100); MONOCYTES # (AUTO) 1.3 /CMM (0.1-1.30); NEUTROPHILS # (AUTO) 8.7 /CMM (1.8-8.9); NEUTROPHILS % (AUTO) 69.1 % (43.0-81.0); PLATELET COUNT (AUTO) 314 /CMM (150-450); RED BLOOD CELL COUNT(AUTO) 2.33 MIL/uL (4.0-5.2); WHITE BLOOD COUNT (AUTO) 12.6 K/uL (4.3-11.0)
[2021-03-20 07:52] LABS: CALCIUM, SERUM 9.1 mg/dL (8.5-10.1); CARBON DIOXIDE 27 mmol/L (21-32); CHLORIDE 100 mmol/L (98-107); CREATININE 3.1 mg/dL (0.6-1.3); GLUCOSE 97 mg/dL (74-106); MAGNESIUM 2.4 mg/dL (1.8-2.4); PHOSPHORUS 3.3 mg/dL (2.5-4.9); POTASSIUM 4.3 mmol/L (3.5-5.1); SODIUM SERUM 139 mmol/L (136-145); UREA NITROGEN, BLOOD 53 mg/dL (7-18)
--- NOTE | 2021-03-20 07:55 | NUR ---
RN NOTE PATIENT IS IN BED WITH HOB AT SEMI FOWLERS POSITION. PATIENT IS ON TRACH/VENT WITH NO SIGNS OF LABORED BREATHING. PATIENT IS OBTUNDED. GTUBE IS IN PLACE. NASEEM MIDLINE IS PATENT AND INTACT. RFOOT IV ACCESS IS PATENT AND INTACT. BED IS LOCKED IN THE LOWEST POSITION, 3 GUARD RAILS RAISED, CALL BETANCUR WITHIN REACH AND ALL HOSPITAL SAFETY PRECAUTIONS ARE BEING FOLLOWED. WILL CONTINUE TO MONITOR THROUGHOUT SHIFT.
[2021-03-20 08:00] VITALS: BP 133/43
[2021-03-20] MEDS: CHLORHEXIDINE GLUCONATE 15 ML UDC MM SCH ×2 (08:15→16:39)
[2021-03-20] MEDS: LINEZOLID 600 MG TABLET PO SCH ×2 (08:16→21:27)
[2021-03-20] MEDS: METOCLOPRAMIDE HCL 10 MG TABLET PO SCH ×3 (08:16→17:06)
[2021-03-20] MEDS: LACOSAMIDE 50 MG TABLET GT SCH ×2 (08:16→21:28)
[2021-03-20] MEDS: PHENOBARBITAL 30 MG TABLET PO SCH ×2 (08:17→16:38)
[2021-03-20] MEDS: PANTOPRAZOLE 40 MG/PACK PACK GT SCH (08:17)
[2021-03-20] MEDS: SEVELAMER CARBONATE 800 MG POWD.PACK GT SCH ×3 (08:17→17:06)
[2021-03-20] MEDS: DORZOLAMIDE OPTH 2% 10 ML BOTTLE OP SCH ×2 (08:18→16:39)
[2021-03-20] MEDS: ISOSORBIDE DINITRATE (20MG) 20 MG TABLET PO SCH ×4 (08:25→16:38)
[2021-03-20] MEDS: hydrALAZINE HCL 50 MG TABLET PO SCH ×4 (08:27→16:39)
[2021-03-20] MEDS: LABETALOL HCL (100MG) 100 MG TABLET PO SCH ×2 (08:27→21:28)
[2021-03-20] MEDS: PROSOURCE / PROSTAT (PYXIS) 30 ML UDC GT SCH ×2 (09:50→16:40)
[2021-03-20] MEDS: CLOTRIMAZOLE 1% 15 GM TUBE TP SCH ×2 (09:50→16:39)
[2021-03-20] MEDS: DAKINS QUARTER STRENGTH (0.125%) 480 ML BOTTLE TOP SCH (09:50)
[2021-03-20] MEDS: NEPRO 1,000 ML BOTTLE GT PRN (10:46)
[2021-03-20 12:00] VITALS: BP 106/65
--- NOTE | 2021-03-20 12:34 | NUR ---
RN NOTE 22 CC NOTED VIA BLADDER SCAN.
[2021-03-20] MEDS ORDERED: SODI473S8 TOP (12:42)
[2021-03-20] MEDS ORDERED: COLI150V12 IV (12:42)
[2021-03-20] MEDS ORDERED: PHEN30TA40 PO (12:42)
[2021-03-20] MEDS ORDERED: Linezolid PO (12:42)
[2021-03-20] MEDS ORDERED: Nepro GT (12:42)
[2021-03-20] MEDS ORDERED: PHEN50VI4 IV (12:42)
[2021-03-20] MEDS ORDERED: LABE100T15 PO (12:42)
[2021-03-20] MEDS ORDERED: Prosource GT (12:42)
[2021-03-20] MEDS: ALBUMIN 25% 25 GM in PREMIX 1 EA IV PRN (13:47)
--- NOTE | 2021-03-20 13:48 | NUR ---
RN NOTE SPOKE WITH DAUGHTER IN REGARDS TO PNEUMO VACCINE. DAUGHTER REFUSED FOR PATIENT.
[2021-03-20] MEDS: LORAZEPAM INJ 2 MG/ML VIAL IV PRN (15:37)
[2021-03-20 16:00] VITALS: BP 111/58
[2021-03-20] MEDS ORDERED: NS 0.9% IV ONE (16:30)
[2021-03-20] MEDS ORDERED: PHENOBARBITAL SODIUM IV ONE (16:30)
[2021-03-20] MEDS: AMLODIPINE BESYLATE 10 MG TABLET PO SCH (17:07)
--- NOTE | 2021-03-20 19:12 | NUR ---
RN NOTE PATIENT IS IN BED WITH HOB AT SEMI FOWLERS POSITION. PATIENT IS ON TRACH/VENT WITH NO SIGNS OF LABORED BREATHING. PATIENT IS OBTUNDED. GTUBE IS IN PLACE. NASEEM MIDLINE IS PATENT AND INTACT. RFOOT IV ACCESS IS PATENT AND INTACT. BED IS LOCKED IN THE LOWEST POSITION, 3 GUARD RAILS RAISED, CALL BETANCUR WITHIN REACH AND ALL HOSPITAL SAFETY PRECAUTIONS ARE BEING FOLLOWED. ALL DUE MEDS GIVEN AND PATIENT REMAINED STABLE THROUGHOUT SHIFT. WILL ENDORSE TO DEAF INTERPRETER RN.
--- NOTE | 2021-03-20 19:40 | NUR ---
RN NOTE PATIENT IN BED, OBTUNDED. [facility] TOLERATING SETTINGS WELL. NO SIGNS OF RESPIRATORY DISTRESS. NO SIGNS OF PAIN. ON G-TUBE, NEPRO @ 40ML/HR RUNNING. NO RESIDUAL NOTED. HEAD OF BED ELEVATED. IV ACCESS NASEEM MIDLINE AND RIGHT FOOT #20 PATENT AND INTACT. DAUGHTER AT BEDSIDE. BED LOCKED AND IN LOWEST POSITION. CALL LIGHT WITHIN REACH. ALL NEEDS ANTICIPATED.
[2021-03-20] MEDS: NS 0.9% IV SCH (19:43)
[2021-03-20] MEDS: COLISTIMETHATE SODIUM IV SCH (19:43)
[2021-03-20 20:00] VITALS: BP 124/52
--- NOTE | 2021-03-20 20:14 | NUR ---
RT Pt with portex 7 cuffed trach recvd on vent settings of AC rate 18, VT 500, FiO2 35%, peep +5. pt recvd tx and tolerated well. Pt responsive when trach and mouth suctioned PRN. no respiratory distress or SOB noted at this time. Pt's daughter at bedside. Spare trach and ambu bag at bedside. Vent plugged into red outlet.
--- NOTE | 2021-03-20 20:46 | NUR ---
51 CC URINE NOTED VIA BLADDER SCAN.
[2021-03-20] MEDS: LATANOPROST EYE DROP 0.005% 2.5 ML BOTTLE OP SCH (21:40)
[2021-03-21] VITALS (12 sets, daily range): BP systolic 99–138; BP diastolic 39–57
[2021-03-21] MEDS: PHENYTOIN SODIUM IV 100 MG/2ML VIAL IV SCH ×3 (00:29→16:20)
[2021-03-21] MEDS: ALBUTEROL FS 2.5 MG/3 ML VIAL.NEB NEB SCH ×4 (01:41→19:20)
[2021-03-21] MEDS: IPRATROPIUM NEB FS 0.5 MG/2.5 ML AMPUL.NEB NEB SCH ×4 (01:41→19:20)
--- NOTE | 2021-03-21 04:24 | NUR ---
BLADDER SCAN DONE, 0 ML RESIDUAL NOTED.
--- NOTE | 2021-03-21 06:52 | NUR ---
RN NOTE PATIENT OBTUNDED IN BED. ON [facility] VENT TOLERATING SETTINGS WELL. NO SIGNS OF RESPIRATORY DISTRESS. NO SIGNS OF PAIN. ON G-TUBE, NEPRO @ 40ML/HR RUNNING. NO RESIDUAL NOTED. HEAD OF BED ELEVATED. IV ACCESS NASEEM MIDLINE AND RIGHT FOOT #20 PATENT AND INTACT. ALL DUE MEDS GIVEN ORDERED. TURNED AND REPOSITIONED. TOLERATED BED BATH. BED LOCKED AND IN LOWEST POSITION. CALL LIGHT WITHIN REACH. WILL ENDORSE TO AM SHIFT.
[2021-03-21 07:13] LABS: BASOPHILS # (AUTO) 0.1 /CMM (0.0-0.2); BASOPHILS % (AUTO) 0.9 % (0.0-2.0); EOSINOPHILS % (AUTO) 3.7 % (0.0-6.0); HEMATOCRIT 21 % (33-45); LYMPHOCYTES # (AUTO) 1.8 /CMM (0.8-4.8); LYMPHOCYTES % (AUTO) 15.9 % (20.0-44.0); MEAN CORPUSCULAR HGB CONC 32 g/dl (31.0-36.0); MEAN CORPUSCULAR VOLUME 97 fL (82-100); MONOCYTES # (AUTO) 1.3 /CMM (0.1-1.30); MONOCYTES % (AUTO) 11.4 % (2.0-12.0); NEUTROPHILS # (AUTO) 7.7 /CMM (1.8-8.9); NEUTROPHILS % (AUTO) 68.1 % (43.0-81.0); PLATELET COUNT (AUTO) 289 /CMM (150-450); RED BLOOD CELL COUNT(AUTO) 2.16 MIL/uL (4.0-5.2); WHITE BLOOD COUNT (AUTO) 11.4 K/uL (4.3-11.0)
[2021-03-21 07:17] LABS: HEMOGLOBIN 6.7 g/dL (11.5-14.8)
[2021-03-21 07:40] LABS: CALCIUM, SERUM 9.1 mg/dL (8.5-10.1); CARBON DIOXIDE 27 mmol/L (21-32); CHLORIDE 99 mmol/L (98-107); CREATININE 2.5 mg/dL (0.6-1.3); GLUCOSE 88 mg/dL (74-106); MAGNESIUM 2.2 mg/dL (1.8-2.4); PHOSPHORUS 2.9 mg/dL (2.5-4.9); SODIUM SERUM 136 mmol/L (136-145); UREA NITROGEN, BLOOD 48 mg/dL (7-18)
--- NOTE | 2021-03-21 07:45 | NUR ---
RN NOTE PATIENT IS IN BED WITH HOB AT SEMI FOWLERS POSITION. PATIENT IS ON TRACH/VENT WITH NO SIGNS OF LABORED BREATHING. PATIENT IS OBTUNDED. GT NEPRO IS IN PLACE AND HAS NO RESIDUAL. NASEEM MIDLINE IS PATENT AND INTACT, RFOOT#20 IS PATENT AND INTACT. BED IS LOCKED IN THE LOWEST POSITION, 3 GUARD RAILS RAISED, CALL BETANCUR WITHIN REACH, AND ALL HOSPITAL SAFETY PRECAUTIONS ARE BEING FOLLOWED. WILL CONTINUE TO MONITOR THROUGHOUT SHIFT.
[2021-03-21 07:52] LABS: BAND % (MANUAL) 1 % (0.0-5.0); EOSINOPHILS % (MANUAL) 1 % (0-4); LYMPHOCYTES % (MANUAL) 22 % (16-48); MONOCYTES % (MANUAL) 11 % (0-11.0); NEUTROPHILS % (MANUAL) 65 (42-76)
[2021-03-21] MEDS: CHLORHEXIDINE GLUCONATE 15 ML UDC MM SCH ×2 (08:17→16:19)
[2021-03-21] MEDS: hydrALAZINE HCL 50 MG TABLET PO SCH ×3 (08:18→16:20)
[2021-03-21] MEDS: PHENOBARBITAL 30 MG TABLET PO SCH ×2 (08:18→16:21)
[2021-03-21] MEDS: PANTOPRAZOLE 40 MG/PACK PACK GT SCH (08:18)
[2021-03-21] MEDS: LACOSAMIDE 50 MG TABLET GT SCH ×2 (08:18→20:43)
[2021-03-21] MEDS: LABETALOL HCL (100MG) 100 MG TABLET PO SCH ×2 (08:19→21:00)
[2021-03-21] MEDS: SEVELAMER CARBONATE 800 MG POWD.PACK GT SCH ×3 (08:19→17:41)
[2021-03-21] MEDS: METOCLOPRAMIDE HCL 10 MG TABLET PO SCH ×3 (08:19→17:40)
[2021-03-21] MEDS: ISOSORBIDE DINITRATE (20MG) 20 MG TABLET PO SCH ×3 (08:19→16:20)
[2021-03-21] MEDS: LINEZOLID 600 MG TABLET PO SCH ×2 (08:22→20:44)
[2021-03-21] MEDS: DAKINS QUARTER STRENGTH (0.125%) 480 ML BOTTLE TOP SCH (08:23)
[2021-03-21] MEDS: PROSOURCE / PROSTAT (PYXIS) 30 ML UDC GT SCH ×2 (08:23→16:22)
[2021-03-21] MEDS: DORZOLAMIDE OPTH 2% 10 ML BOTTLE OP SCH ×2 (08:23→17:41)
[2021-03-21] MEDS: CLOTRIMAZOLE 1% 15 GM TUBE TP SCH ×2 (08:23→17:41)
--- NOTE | 2021-03-21 13:40 | NUR ---
rn note 133 cc noted on bladder scan
[2021-03-21] MEDS: EPOETIN ALFA (4000 UNIT) 4,000 UNIT/ML VIAL SQ SCH (14:36)
[2021-03-21] MEDS: NEPRO 1,000 ML BOTTLE GT PRN (14:44)
[2021-03-21] MEDS: ACETAMINOPHEN 325 MG TABLET MC PRN ×2 (16:21→20:46)
--- NOTE | 2021-03-21 17:00 | NUR ---
RN NOTE PATIENT'S TEMPERATURE TAKEN 99.3 ADMINISTERED TYLENOL AND CHECKED TEMP AGAIN 99.1. HOLDING BLOOD TRANSFUSION UNTIL TEMPERATURE IS LOWER. FARM PRODUCTS SHIPPER AWARE.
[2021-03-21] MEDS: AMLODIPINE BESYLATE 10 MG TABLET PO SCH (17:41)
--- NOTE | 2021-03-21 18:46 | NUR ---
RN NOTE PATIENT IS IN BED WITH HOB AT SEMI FOWLERS POSITION. PATIENT IS ON TRACH/VENT WITH NO SIGNS OF LABORED BREATHING. PATIENT IS OBTUNDED. GT NEPRO IS IN PLACE AND HAS NO RESIDUAL. NASEEM MIDLINE IS PATENT AND INTACT WITH PRBC TRANSFUSING, RFOOT#20 IS PATENT AND INTACT. BED IS LOCKED IN THE LOWEST POSITION, 3 GUARD RAILS RAISED, CALL BETANCUR WITHIN REACH, AND ALL HOSPITAL SAFETY PRECAUTIONS ARE BEING FOLLOWED. ALL DUE MEDS GIVEN AND PATIENT REMAINED STABLE THROUGHOUT SHIFT. WILL ENDORSE TO POLICE LIEUTENANT PATROL RN.
--- NOTE | 2021-03-21 19:30 | NUR ---
RN NOTE RECEIVED PATIENT IS IN BED WITH HOB AT SEMI FOWLERS POSITION. DAUGHTER AT BEDSIDE. PATIENT ON TRACH/VENT WITH NO SIGNS OF RESPIRATORY DISTRESS. TOLERATING CURRENT VENT SETTINGS. PATIENT IS OBTUNDED. GT NEPRO IS IN PLACE AND HAS NO RESIDUAL. NASEEM MIDLINE IS PATENT AND INTACT WITH INFUSING PRBC AT THIS TIME. IV TO RT FOOT#20 IS PATENT AND INTACT. BED LOCKED AND IN THE LOWEST POSITION, SIDE RAILS UP X 2 CALL LIGHT WITHIN REACH, SAFETY PRECAUTIONS IN PLACE. WILL CONT. TO MONITOR PT.
--- NOTE | 2021-03-21 20:35 | NUR ---
RN NOTE BLADDER SCAN COMPLETED 315 ML WILL CATH PT. PER MD ORDER. I&O CATH COMPLETED REMOVED 200 ML OF YELLOW URINE.
[2021-03-21] MEDS: NS 0.9% IV SCH ×2 (20:44→21:00)
[2021-03-21] MEDS: COLISTIMETHATE SODIUM IV SCH ×2 (20:44→21:00)
--- NOTE | 2021-03-21 22:30 | NUR ---
RN NOTE SPOKE TO DAUGHTER REQUESTED 2200 BP MEDICATION TO BE HELD PER CURRENT B/P READING.
[2021-03-21] MEDS: LATANOPROST EYE DROP 0.005% 2.5 ML BOTTLE OP SCH (22:42)
--- NOTE | 2021-03-21 23:15 | NUR ---
RN NOTE RECHECKED TEMP. 99.4 AT THIS TIME.
[2021-03-22] VITALS: BP 124/44
[2021-03-22] MEDS: PHENYTOIN SODIUM IV 100 MG/2ML VIAL IV SCH ×3 (01:28→17:00)
[2021-03-22] MEDS: ALBUTEROL FS 2.5 MG/3 ML VIAL.NEB NEB SCH ×4 (02:02→19:40)
[2021-03-22] MEDS: IPRATROPIUM NEB FS 0.5 MG/2.5 ML AMPUL.NEB NEB SCH ×4 (02:02→19:40)
--- NOTE | 2021-03-22 03:45 | NUR ---
RN NOTE BLADDER SCAN COMPLETED 83 ML OF URINE.
[2021-03-22 04:00] VITALS: BP 132/40
[2021-03-22 06:39] LABS: BASOPHILS # (AUTO) 0.2 /CMM (0.0-0.2); BASOPHILS % (AUTO) 0.9 % (0.0-2.0); EOSINOPHILS % (AUTO) 3.6 % (0.0-6.0); HEMATOCRIT 23 % (33-45); HEMOGLOBIN 7.2 g/dL (11.5-14.8); LYMPHOCYTES # (AUTO) 2.2 /CMM (0.8-4.8); LYMPHOCYTES % (AUTO) 13.6 % (20.0-44.0); MEAN CORPUSCULAR HGB CONC 32 g/dl (31.0-36.0); MEAN CORPUSCULAR VOLUME 96 fL (82-100); MONOCYTES # (AUTO) 1.9 /CMM (0.1-1.30); MONOCYTES % (AUTO) 11.8 % (2.0-12.0); NEUTROPHILS # (AUTO) 11.4 /CMM (1.8-8.9); NEUTROPHILS % (AUTO) 70.1 % (43.0-81.0); PLATELET COUNT (AUTO) 299 /CMM (150-450); RED BLOOD CELL COUNT(AUTO) 2.34 MIL/uL (4.0-5.2); WHITE BLOOD COUNT (AUTO) 16.3 K/uL (4.3-11.0)
[2021-03-22 07:38] LABS: CALCIUM, SERUM 9.4 mg/dL (8.5-10.1); CARBON DIOXIDE 27 mmol/L (21-32); CHLORIDE 97 mmol/L (98-107); CREATININE 2.8 mg/dL (0.6-1.3); GLUCOSE 73 mg/dL (74-106); MAGNESIUM 2.4 mg/dL (1.8-2.4); PHOSPHORUS 3.1 mg/dL (2.5-4.9); POTASSIUM 4.4 mmol/L (3.5-5.1); SODIUM SERUM 134 mmol/L (136-145); UREA NITROGEN, BLOOD 64 mg/dL (7-18)
[2021-03-22 08:00] VITALS: BP 128/58
--- NOTE | 2021-03-22 08:00 | NUR ---
RN OPENING NOTES PT IN BED WITH TRACH TO VENT SETTING ORDERED. OBTUNDED. PT HAS G TUBE FEEDING ORDERED, NO RESIDUAL NOTED. KEEP HOB ELEVATED AT ALL TIMES. PT ON TELE MONITOR SR 70. RT UA MIDLINE INTACT AND FLUSHED WELL. HEMODIALYSIS CATHETER IN PLACE, TURN AND REPOSITION EVERY 2 HOURS. KEEP CLEAN AND DRY. CALL LIGHT WITHIN REACH. BED LOCKED AND LOWEST POSITION. WILL CONTINUE TO MONITOR
[2021-03-22] MEDS: METOCLOPRAMIDE HCL 10 MG TABLET PO SCH ×3 (08:57→17:47)
[2021-03-22] MEDS: LACOSAMIDE 50 MG TABLET GT SCH ×2 (08:57→20:31)
[2021-03-22] MEDS: LABETALOL HCL (100MG) 100 MG TABLET PO SCH ×2 (08:58→20:32)
[2021-03-22] MEDS: LINEZOLID 600 MG TABLET PO SCH ×2 (08:59→20:32)
[2021-03-22] MEDS: CHLORHEXIDINE GLUCONATE 15 ML UDC MM SCH ×2 (08:59→17:00)
[2021-03-22] MEDS: hydrALAZINE HCL 50 MG TABLET PO SCH ×3 (09:00→17:00)
[2021-03-22] MEDS: ISOSORBIDE DINITRATE (20MG) 20 MG TABLET PO SCH ×3 (09:00→17:00)
[2021-03-22] MEDS: PROSOURCE / PROSTAT (PYXIS) 30 ML UDC GT SCH ×2 (09:00→16:58)
[2021-03-22] MEDS: PANTOPRAZOLE 40 MG/PACK PACK GT SCH (09:03)
[2021-03-22] MEDS: SEVELAMER CARBONATE 800 MG POWD.PACK GT SCH ×3 (09:03→17:49)
[2021-03-22] MEDS: PHENOBARBITAL 30 MG TABLET PO SCH ×2 (09:16→17:47)
[2021-03-22] MEDS: DAKINS QUARTER STRENGTH (0.125%) 480 ML BOTTLE TOP SCH (09:21)
[2021-03-22] MEDS: CLOTRIMAZOLE 1% 15 GM TUBE TP SCH ×2 (09:22→17:05)
[2021-03-22] MEDS: DORZOLAMIDE OPTH 2% 10 ML BOTTLE OP SCH ×2 (09:24→17:03)
--- NOTE | 2021-03-22 10:41 | NUR ---
RN OPENING NOTES PT IN BED WITH TRACH TO VENT SETTING ORDERED. OBTUNDED. PT HAS G TUBE FEEDING ORDERED, NO RESIDUAL NOTED. KEEP HOB ELEVATED AT ALL TIMES. PT ON TELE MONITOR SR 70. OXYGEN SAT IS 94 ON 2L NC. UA MIDLINE INTACT AND FLUSHED WELL. HEMODIALYSIS CATHETER IN PLACE, TURN AND REPOSITION EVERY 2 HOURS. KEEP CLEAN AND DRY. CALL LIGHT WITHIN REACH. BED LOCKED AND LOWEST POSITION. WILL CONTINUE TO MONITOR. Addendum: 03/22/21 at 1127 by CLOVER JOLLY RN CORRECTION PATIENT WITH TRACH TO VENT SETTING ORDERED SATURATION 100% AT THIS TIME
[2021-03-22] MEDS: ACETAMINOPHEN 325 MG TABLET MC PRN (11:45)
--- NOTE | 2021-03-22 11:59 | NUR ---
BIOPROCESSING MANUFACTURING TECHNICIAN NOTE T 100.1 TYLENOL AND COOLING MEASURE PROVIDED, WILL F\U ,ON BLADDER SCANNER 13 ML OF URINE
[2021-03-22 12:00] VITALS: BP 127/42
--- NOTE | 2021-03-22 12:00 | NUR ---
NITRO MAN NOTE CARSON HERRING MENTAL MEASUREMENTS TEACHER AT BEDSIDE AWARE THAT HG TODAY 7.2 PATIENT C\O THAT BOTH FEET SLIGHTLY SWOLLEN , ALSO AWARE THAT T 100.1 TYLENOL GIVEN WILL CONT TO MONITOR
[2021-03-22 16:00] VITALS: BP 127/55
[2021-03-22] MEDS: AMLODIPINE BESYLATE 10 MG TABLET PO SCH (17:31)
--- NOTE | 2021-03-22 18:34 | NUR ---
HAT MARKER NOTE ALL NEEDS ATTENDED , WITH TRACH TO VENT SETTING ORDERED , KEEP CLEAN DRY , WILL CONT TO MONITOR CLOSELY
[2021-03-22 20:00] VITALS: BP 127/48
--- NOTE | 2021-03-22 20:00 | NUR ---
RN NOTE PT RECEIVED IN BED OBTUNDED ON VENT VIA TRACH SATING 100%.ON TELE MONITOR SHOWING SR IN 70s.DAUGHTER AT BED SIDE.
--- NOTE | 2021-03-22 20:30 | NUR ---
BLADDER SCAN DONE NOTED 84 ML RESIDUAL.
[2021-03-22] MEDS: METRONIDAZOLE 500 MG TABLET PO SCH (20:32)
[2021-03-22] MEDS: LATANOPROST EYE DROP 0.005% 2.5 ML BOTTLE OP SCH (22:06)
[2021-03-23] VITALS (10 sets, daily range): BP systolic 94–127; BP diastolic 39–49
[2021-03-23] MEDS: PHENYTOIN SODIUM IV 100 MG/2ML VIAL IV SCH ×3 (01:07→16:24)
[2021-03-23] MEDS: ALBUTEROL FS 2.5 MG/3 ML VIAL.NEB NEB SCH ×4 (01:10→21:20)
[2021-03-23] MEDS: IPRATROPIUM NEB FS 0.5 MG/2.5 ML AMPUL.NEB NEB SCH ×4 (01:10→21:20)
[2021-03-23] MEDS: NEPRO 1,000 ML BOTTLE GT PRN (03:56)
--- NOTE | 2021-03-23 04:00 | NUR ---
BLADDER SCAN DONE NOTED 134 ML RESIDUAL.
[2021-03-23] MEDS: METRONIDAZOLE 500 MG TABLET PO SCH ×3 (04:24→21:46)
[2021-03-23 05:59] LABS: BASOPHILS # (AUTO) 0.1 /CMM (0.0-0.2); BASOPHILS % (AUTO) 0.7 % (0.0-2.0); EOSINOPHILS % (AUTO) 3.4 % (0.0-6.0); HEMATOCRIT 21 % (33-45); LYMPHOCYTES # (AUTO) 1.5 /CMM (0.8-4.8); LYMPHOCYTES % (AUTO) 9.1 % (20.0-44.0); MEAN CORPUSCULAR HGB CONC 32 g/dl (31.0-36.0); MEAN CORPUSCULAR VOLUME 97 fL (82-100); MONOCYTES % (AUTO) 12.6 % (2.0-12.0); NEUTROPHILS % (AUTO) 74.2 % (43.0-81.0); PLATELET COUNT (AUTO) 282 /CMM (150-450); RED BLOOD CELL COUNT(AUTO) 2.14 MIL/uL (4.0-5.2); WHITE BLOOD COUNT (AUTO) 16.2 K/uL (4.3-11.0)
[2021-03-23 06:33] LABS: CALCIUM, SERUM 9.7 mg/dL (8.5-10.1); CARBON DIOXIDE 22 mmol/L (21-32); CHLORIDE 96 mmol/L (98-107); CREATININE 3.2 mg/dL (0.6-1.3); GLUCOSE 76 mg/dL (74-106); MAGNESIUM 2.4 mg/dL (1.8-2.4); PHOSPHORUS 3.2 mg/dL (2.5-4.9); POTASSIUM 4.3 mmol/L (3.5-5.1); SODIUM SERUM 131 mmol/L (136-145); UREA NITROGEN, BLOOD 71 mg/dL (7-18)
--- NOTE | 2021-03-23 07:21 | NUR ---
RN NOTE REPORT GIVEN TO ONCOMING SHIFT FOR OTIS.
[2021-03-23 07:29] LABS: HEMOGLOBIN 6.7 g/dL (11.5-14.8)
--- NOTE | 2021-03-23 07:40 | NUR ---
RN NOTE PATIENT IS IN BED WITH HOB AT SEMI FOWLERS POSITION. PATIENT IS ON TRACH VENT WITH NO SIGNS OF LABORED BREATHING. PATIENT IS OBTUNDED. GTUBE IS IN PLACE. NASEEM MIDLINE IS PATENT AND INTACT. RFOOT 20g IS PATENT AND INTACT. BED IS LOCKED IN THE LOWEST POSITION, 3 GUARD RAILS RAISED, CALL BETANCUR WITHIN REACH, AND ALL HOSPITAL SAFETY PRECAUTIONS ARE BEING FOLLOWED. WILL CONTINUE TO MONITOR THROUGHOUT SHIFT.
--- NOTE | 2021-03-23 08:00 | NUR ---
RN NOTE NOTIFIED JOVITA BLACKMON OF PATIENT'S 6.7 HGB
[2021-03-23] MEDS: LACOSAMIDE 50 MG TABLET GT SCH ×2 (08:28→21:46)
[2021-03-23] MEDS: METOCLOPRAMIDE HCL 10 MG TABLET PO SCH ×3 (08:28→17:01)
[2021-03-23] MEDS: LINEZOLID 600 MG TABLET PO SCH ×2 (08:28→21:46)
[2021-03-23] MEDS: hydrALAZINE HCL 50 MG TABLET PO SCH ×3 (08:28→16:24)
[2021-03-23] MEDS: LABETALOL HCL (100MG) 100 MG TABLET PO SCH ×2 (08:29→21:00)
[2021-03-23] MEDS: ISOSORBIDE DINITRATE (20MG) 20 MG TABLET PO SCH ×3 (08:29→16:25)
[2021-03-23] MEDS: SEVELAMER CARBONATE 800 MG POWD.PACK GT SCH ×3 (08:29→17:01)
[2021-03-23] MEDS: PANTOPRAZOLE 40 MG/PACK PACK GT SCH (08:29)
[2021-03-23] MEDS: PHENOBARBITAL 30 MG TABLET PO SCH ×2 (08:29→16:23)
[2021-03-23] MEDS: CHLORHEXIDINE GLUCONATE 15 ML UDC MM SCH ×2 (08:29→16:24)
[2021-03-23] MEDS: PROSOURCE / PROSTAT (PYXIS) 30 ML UDC GT SCH ×2 (08:31→16:24)
[2021-03-23] MEDS: DAKINS QUARTER STRENGTH (0.125%) 480 ML BOTTLE TOP SCH (08:57)
[2021-03-23] MEDS: CLOTRIMAZOLE 1% 15 GM TUBE TP SCH ×2 (08:57→16:25)
[2021-03-23] MEDS: DORZOLAMIDE OPTH 2% 10 ML BOTTLE OP SCH ×2 (08:57→16:25)
[2021-03-23 09:53] LABS: LYMPHOCYTES % (MANUAL) 6 % (16-48); METAMYELOCYTES % 4 % (0-0); MONOCYTES % (MANUAL) 6 % (0-11.0); NEUTROPHILS % (MANUAL) 81 (42-76)
[2021-03-23 09:54] LABS: BAND % (MANUAL) 3 % (0.0-5.0)
--- NOTE | 2021-03-23 12:00 | NUR ---
RN NOTE BLADDER SCAN NOTED 0 CC OF URINE.
--- NOTE | 2021-03-23 16:00 | NUR ---
RN NOTE 1 UNIT PRBC BEING TRANSFUSED WITH DIALYSIS. FRONTEND ENGINEER AWARE.
[2021-03-23] MEDS: AMLODIPINE BESYLATE 10 MG TABLET PO SCH (17:01)
--- NOTE | 2021-03-23 18:00 | NUR ---
RN NOTE DAUGHTER IS REQUESTING TO HOLD BP MEDS FOR SYSTOLIC <125. WILL ENDORSE TO COMMUNICATION AND OUTREACH MANAGER RN.
--- NOTE | 2021-03-23 18:30 | NUR ---
RN NOTE PATIENT PRODUCED EMESIS WHEN CHANGING/TURNING. PATIENT SUCTIONED AND HAS NO SIGNS OF DISTRESS. CURRENTLY SATURATING 100%. 0 RESIDUAL NOTED FROM GTUBE. FEEDING LOWERED FROM 40 CC/HOUR TO 30 CC/HOUR. WILL ENDORSE TO BAGGAGE HANDLING SUPERVISOR RN.
--- NOTE | 2021-03-23 18:37 | NUR ---
RN NOTE PATIENT IS IN BED WITH HOB AT SEMI FOWLERS POSITION. PATIENT IS ON TRACH VENT WITH NO SIGNS OF LABORED BREATHING. PATIENT IS OBTUNDED. GTUBE IS IN PLACE. NASEEM MIDLINE IS PATENT AND INTACT. RFOOT 20g IS PATENT AND INTACT. BED IS LOCKED IN THE LOWEST POSITION, 3 GUARD RAILS RAISED, CALL BETANCUR WITHIN REACH, AND ALL HOSPITAL SAFETY PRECAUTIONS ARE BEING FOLLOWED. ALL DUE MEDS GIVEN AND PATIENT REMAINED STABLE THROUGHOUT SHIFT. WILL ENDORSE TO CERTIFIED NURSES AIDE RN.
[2021-03-23] MEDS: COLISTIMETHATE SODIUM IV SCH (20:19)
[2021-03-23] MEDS: NS 0.9% IV SCH (20:19)
[2021-03-23] MEDS: LATANOPROST EYE DROP 0.005% 2.5 ML BOTTLE OP SCH (21:47)
[2021-03-24] VITALS: BP 111/37
[2021-03-24] MEDS: PHENYTOIN SODIUM IV 100 MG/2ML VIAL IV SCH ×3 (01:16→17:13)
[2021-03-24] MEDS: ALBUTEROL FS 2.5 MG/3 ML VIAL.NEB NEB SCH ×4 (01:27→19:20)
[2021-03-24] MEDS: IPRATROPIUM NEB FS 0.5 MG/2.5 ML AMPUL.NEB NEB SCH ×4 (01:27→19:20)
[2021-03-24 04:00] VITALS: BP 95/32
[2021-03-24] MEDS: METRONIDAZOLE 500 MG TABLET PO SCH ×3 (05:17→20:48)
[2021-03-24] MEDS: ACETAMINOPHEN 325 MG TABLET MC PRN (05:17)
[2021-03-24] MEDS: NEPRO 1,000 ML BOTTLE GT PRN (05:21)
[2021-03-24 06:58] LABS: BASOPHILS # (AUTO) 0.1 /CMM (0.0-0.2); BASOPHILS % (AUTO) 0.5 % (0.0-2.0); EOSINOPHILS % (AUTO) 3.5 % (0.0-6.0); HEMATOCRIT 28 % (33-45); HEMOGLOBIN 8.9 g/dL (11.5-14.8); LYMPHOCYTES # (AUTO) 1.4 /CMM (0.8-4.8); LYMPHOCYTES % (AUTO) 11.3 % (20.0-44.0); MEAN CORPUSCULAR HGB CONC 32 g/dl (31.0-36.0); MEAN CORPUSCULAR VOLUME 96 fL (82-100); MONOCYTES # (AUTO) 1.7 /CMM (0.1-1.30); MONOCYTES % (AUTO) 13.9 % (2.0-12.0); NEUTROPHILS # (AUTO) 8.5 /CMM (1.8-8.9); NEUTROPHILS % (AUTO) 70.8 % (43.0-81.0); PLATELET COUNT (AUTO) 317 /CMM (150-450); RED BLOOD CELL COUNT(AUTO) 2.91 MIL/uL (4.0-5.2)
[2021-03-24 07:36] LABS: CALCIUM, SERUM 10.2 mg/dL (8.5-10.1); CARBON DIOXIDE 20 mmol/L (21-32); CHLORIDE 99 mmol/L (98-107); CREATININE 2.7 mg/dL (0.6-1.3); GLUCOSE 128 mg/dL (74-106); MAGNESIUM 2.6 mg/dL (1.8-2.4); PHOSPHORUS 2.9 mg/dL (2.5-4.9); POTASSIUM 3.9 mmol/L (3.5-5.1); SODIUM SERUM 136 mmol/L (136-145); UREA NITROGEN, BLOOD 56 mg/dL (7-18)
[2021-03-24 08:00] VITALS: BP 113/50
[2021-03-24] MEDS: METOCLOPRAMIDE HCL 10 MG TABLET PO SCH ×3 (08:37→17:05)
[2021-03-24] MEDS: PROSOURCE / PROSTAT (PYXIS) 30 ML UDC GT SCH ×2 (08:37→17:10)
[2021-03-24] MEDS: CHLORHEXIDINE GLUCONATE 15 ML UDC MM SCH ×2 (08:37→17:05)
[2021-03-24] MEDS: LACOSAMIDE 50 MG TABLET GT SCH ×2 (08:38→20:48)
[2021-03-24] MEDS: PHENOBARBITAL 30 MG TABLET PO SCH ×2 (08:38→17:05)
[2021-03-24] MEDS: hydrALAZINE HCL 50 MG TABLET PO SCH ×3 (08:38→17:00)
[2021-03-24] MEDS: LINEZOLID 600 MG TABLET PO SCH ×2 (08:38→20:48)
[2021-03-24] MEDS: PANTOPRAZOLE 40 MG/PACK PACK GT SCH (08:38)
[2021-03-24] MEDS: SEVELAMER CARBONATE 800 MG POWD.PACK GT SCH ×3 (08:38→17:05)
[2021-03-24] MEDS: ISOSORBIDE DINITRATE (20MG) 20 MG TABLET PO SCH ×3 (08:39→17:00)
[2021-03-24] MEDS: LABETALOL HCL (100MG) 100 MG TABLET PO SCH ×2 (08:39→20:48)
[2021-03-24] MEDS: DORZOLAMIDE OPTH 2% 10 ML BOTTLE OP SCH ×2 (08:39→17:10)
[2021-03-24] MEDS: CLOTRIMAZOLE 1% 15 GM TUBE TP SCH ×2 (08:40→17:11)
[2021-03-24] MEDS: DAKINS QUARTER STRENGTH (0.125%) 480 ML BOTTLE TOP SCH (08:40)
--- NOTE | 2021-03-24 08:57 | NUR ---
RN NOTE BP MEDS HELD PER DAUGHTERS REQUEST OF HOLDING BP MEDS WHEN SYSTOLIC <125. CURRENT BP IS 113/50. EXPLAINED TO DAUGHTER THE IMPORTANCE OF MEDICATION ADHERENCE.
--- NOTE | 2021-03-24 10:07 | NUR ---
RN NOTE NOTIFIED DR. BEACH ABOUT PATIENT REGURGITATING FEEDING.
[2021-03-24 12:00] VITALS: BP 107/45
--- NOTE | 2021-03-24 12:18 | NUR ---
RN NOTE BLADDER SCAN NOTED 23 CC.
[2021-03-24] MEDS: EPOETIN ALFA (4000 UNIT) 4,000 UNIT/ML VIAL SQ SCH (15:11)
[2021-03-24 16:00] VITALS: BP 125/56
--- NOTE | 2021-03-24 17:30 | NUR ---
RN NOTE ALL BP MEDS HELD PER DAUGHTER'S REQUEST. EXPLAINED THE IMPORTANCE OF MEDICATION ADHERENCE AND POTENTIAL SIDE EFFECT. DAUGHTER STILL REFUSED.
[2021-03-24] MEDS: AMLODIPINE BESYLATE 10 MG TABLET PO SCH (18:00)
--- NOTE | 2021-03-24 18:37 | NUR ---
RN NOTE PATIENT IS IN BED WITH HOB AT SEMI FOWLERS POSITION. PATIENT IS ON TRACH VENT WITH NO SIGNS OF LABORED BREATHING. PATIENT IS OBTUNDED. GTUBE IS IN PLACE. NASEEM MIDLINE IS PATENT AND INTACT. RFOOT 20g IS PATENT AND INTACT. BED IS LOCKED IN THE LOWEST POSITION, 3 GUARD RAILS RAISED, CALL BETANCUR WITHIN REACH, AND ALL HOSPITAL SAFETY PRECAUTIONS ARE BEING FOLLOWED. ALL DUE MEDS GIVEN EXCEPT BP MEDS PER DAUGHTER'S REQUEST AND PATIENT REMAINED STABLE THROUGHOUT SHIFT. WILL ENDORSE TO ADVERTISING VICE PRESIDENT RN.
--- NOTE | 2021-03-24 19:30 | NUR ---
RN NOTE RECEIVED PATINET IN BED RESTING OBTUNDED EYE CLOSED ON MECHANICAL VENT ON SETTING PORTEX #7 AC 18 TV 500 FIO2:35% PEEP 5 O2:100%,IV SITE IS ON LEFT UPPER ARM MIDLINE AND LEFT FOOT INTACT PATENT,ON G-TUBE FEEDING NEPRO 1.8 30CC/HR CHECKED PLACEMENT IN PLACE NO RESIDUAL NOTED,INCONTINENT TO BOWEL/BLADDER,SAFETY MEASURE IMPALEMENT,HEAD OF THE BED ELEVATED,BED IN LOW POSITION AND LOCKED,CONTINUE TO MONITOR.
[2021-03-24] MEDS: COLISTIMETHATE SODIUM IV SCH (19:51)
[2021-03-24] MEDS: NS 0.9% IV SCH (19:51)
[2021-03-24 20:00] VITALS: BP 139/51
--- NOTE | 2021-03-24 20:10 | NUR ---
RN NOTE BLADDER SCAN DONE URINE IN BLADDER IS 45 CC,CONTINUE TO MONITOR
[2021-03-24] MEDS: LATANOPROST EYE DROP 0.005% 2.5 ML BOTTLE OP SCH (21:15)
[2021-03-25] VITALS: BP 112/47
[2021-03-25] MEDS: ALBUTEROL FS 2.5 MG/3 ML VIAL.NEB NEB SCH ×4 (01:18→19:19)
[2021-03-25] MEDS: IPRATROPIUM NEB FS 0.5 MG/2.5 ML AMPUL.NEB NEB SCH ×4 (01:18→19:19)
[2021-03-25] MEDS: PHENYTOIN SODIUM IV 100 MG/2ML VIAL IV SCH ×3 (01:25→16:06)
[2021-03-25 04:00] VITALS: BP 116/43
--- NOTE | 2021-03-25 04:00 | NUR ---
RN NOTE BLADDER SCAN SHOWS O URINE IN BLADDER CONTINUE TO MONITOR.
[2021-03-25] MEDS: METRONIDAZOLE 500 MG TABLET PO SCH ×3 (05:02→20:31)
--- NOTE | 2021-03-25 07:16 | NUR ---
RN NOTE PATIENT REMAINS ON OBTUNDED NO SOB NOT ACUTE DISTRESS NOTED ALL DUE MEDS GIVEN MD ORDERED KEPT CLEAN AND DRY ALL THE TIME,ALL NEEDS MET.ENDORSE NEXT COMING SHIFT FOR CONTINUATION OF CARE.
[2021-03-25 08:00] VITALS: BP 135/42
--- NOTE | 2021-03-25 08:34 | NUR ---
RN NOTE HOLDING BP MEDS PER DAUGHTER'S REQUEST FOR BP 135/42
[2021-03-25] MEDS: METOCLOPRAMIDE HCL 10 MG TABLET PO SCH ×3 (08:41→17:01)
[2021-03-25] MEDS: PHENOBARBITAL 30 MG TABLET PO SCH ×2 (08:41→16:06)
[2021-03-25] MEDS: PANTOPRAZOLE 40 MG/PACK PACK GT SCH (08:41)
[2021-03-25] MEDS: ACETAMINOPHEN 325 MG TABLET MC PRN ×2 (08:41→20:57)
[2021-03-25] MEDS: SEVELAMER CARBONATE 800 MG POWD.PACK GT SCH ×3 (08:41→17:01)
[2021-03-25] MEDS: CLOTRIMAZOLE 1% 15 GM TUBE TP SCH ×2 (08:42→16:06)
[2021-03-25] MEDS: DAKINS QUARTER STRENGTH (0.125%) 480 ML BOTTLE TOP SCH (08:42)
[2021-03-25] MEDS: CHLORHEXIDINE GLUCONATE 15 ML UDC MM SCH ×2 (08:42→16:05)
[2021-03-25] MEDS: LINEZOLID 600 MG TABLET PO SCH ×2 (08:42→20:32)
[2021-03-25] MEDS: LACOSAMIDE 50 MG TABLET GT SCH ×2 (08:42→20:30)
[2021-03-25] MEDS: PROSOURCE / PROSTAT (PYXIS) 30 ML UDC GT SCH ×2 (08:43→16:05)
[2021-03-25] MEDS: DORZOLAMIDE OPTH 2% 10 ML BOTTLE OP SCH ×2 (08:43→16:06)
[2021-03-25] MEDS: hydrALAZINE HCL 50 MG TABLET PO SCH ×3 (08:43→16:06)
[2021-03-25] MEDS: LABETALOL HCL (100MG) 100 MG TABLET PO SCH ×2 (08:43→20:31)
[2021-03-25] MEDS: ISOSORBIDE DINITRATE (20MG) 20 MG TABLET PO SCH ×3 (08:43→16:06)
--- NOTE | 2021-03-25 09:43 | NUR ---
RN NOTE ADMINISTERED TYLENOL FOR TEMPERATURE OF 100.9 WILL CONTINUE TO MONITOR.
[2021-03-25 12:00] VITALS: BP 122/40
[2021-03-25] MEDS ORDERED: SILVER NITRATE APPLICATOR 1 EA BOX TP ONE (12:00)
--- NOTE | 2021-03-25 12:39 | NUR ---
RN NOTE 0 CC OF URINE NOTED ON BLADDER SCAN.
[2021-03-25 16:00] VITALS: BP 138/55
[2021-03-25] MEDS: ALBUMIN 25% 25 GM in PREMIX 1 EA IV PRN (16:35)
[2021-03-25] MEDS: AMLODIPINE BESYLATE 10 MG TABLET PO SCH (17:01)
--- NOTE | 2021-03-25 17:02 | NUR ---
RN NOTE HOLDING BP MEDS FOR BP 138/55 PER DAUGHTER'S REQUEST. EDUCATED DAUGHTER ON IMPORTANCE OF MEDICATION ADHERENCE AND POTENTIAL SIDE EFFECTS. DAUGHTER STILL REFUSED.
--- NOTE | 2021-03-25 19:08 | NUR ---
RN NOTE PATIENT IS IN BED WITH HOB AT SEMI FOWLERS POSITION. PATIENT IS ON TRACH VENT WITH NO SIGNS OF LABORED BREATHING. PATIENT IS OBTUNDED. GTUBE IS IN PLACE. NASEEM MIDLINE IS PATENT AND INTACT. RFOOT 20g IS PATENT AND INTACT. BED IS LOCKED IN THE LOWEST POSITION, 3 GUARD RAILS RAISED, CALL BETANCUR WITHIN REACH, AND ALL HOSPITAL SAFETY PRECAUTIONS ARE BEING FOLLOWED. ALL DUE MEDS GIVEN EXCEPT BP MEDS DUE TO DAUGHTERS REQUEST AND PATIENT REMAINED STABLE THROUGHOUT SHIFT. WILL ENDORSE TO LONG FILLER CIGAR ROLLER MACHINE RN.
[2021-03-25 20:00] VITALS: BP 147/64
--- NOTE | 2021-03-25 20:00 | NUR ---
RN NOTE RECEIVED PT IN BED, OBTUNDED ON VENT VIA TRACH WITH FIO2 35% SATING 100%. PT ON TELE MONITOR SHOWING SR WITH HR IN 80s.WILL CONTINUE WITH PLAN OF CARE.
[2021-03-25] MEDS: NS 0.9% IV SCH (20:05)
[2021-03-25] MEDS: COLISTIMETHATE SODIUM IV SCH (20:05)
--- NOTE | 2021-03-25 20:30 | NUR ---
bladder scan done showing 134 residual.
[2021-03-25] MEDS: LATANOPROST EYE DROP 0.005% 2.5 ML BOTTLE OP SCH (22:33)
[2021-03-25] MEDS: NEPRO 1,000 ML BOTTLE GT PRN (22:38)
[2021-03-26] VITALS: BP 128/50
[2021-03-26] MEDS: PHENYTOIN SODIUM IV 100 MG/2ML VIAL IV SCH ×3 (01:09→16:50)
[2021-03-26] MEDS: ALBUTEROL FS 2.5 MG/3 ML VIAL.NEB NEB SCH ×4 (01:58→19:48)
[2021-03-26] MEDS: IPRATROPIUM NEB FS 0.5 MG/2.5 ML AMPUL.NEB NEB SCH ×4 (01:58→19:48)
[2021-03-26 04:00] VITALS: BP 145/55
--- NOTE | 2021-03-26 04:00 | NUR ---
bladder scan done 12 ml residual noted.
[2021-03-26] MEDS: METRONIDAZOLE 500 MG TABLET PO SCH ×3 (04:21→20:42)
[2021-03-26] MEDS: ACETAMINOPHEN 325 MG TABLET MC PRN ×3 (04:21→20:48)
--- NOTE | 2021-03-26 05:00 | NUR ---
pt had temp 102.1 tylenol 650 mg given, cooling measure provided temp dropped to 99.6.
[2021-03-26 06:31] LABS: BASOPHILS # (AUTO) 0.1 K/uL (0.0-0.2); BASOPHILS % (AUTO) 0.7 % (0.0-2.0); EOSINOPHILS % (AUTO) 3.4 % (0.0-6.0); HEMATOCRIT 24 % (33-45); HEMOGLOBIN 7.6 g/dL (11.5-14.8); LYMPHOCYTES # (AUTO) 1.7 K/uL (0.8-4.8); LYMPHOCYTES % (AUTO) 13.5 % (20.0-44.0); MEAN CORPUSCULAR HGB CONC 33 g/dl (31.0-36.0); MEAN CORPUSCULAR VOLUME 96 fL (82-100); MONOCYTES # (AUTO) 1.4 K/uL (0.1-1.30); NEUTROPHILS # (AUTO) 9.2 K/uL (1.8-8.9); NEUTROPHILS % (AUTO) 71.4 % (43.0-81.0); PLATELET COUNT (AUTO) 328 K/uL (150-450); RED BLOOD CELL COUNT(AUTO) 2.45 MIL/uL (4.0-5.2); WHITE BLOOD COUNT (AUTO) 12.8 K/uL (4.3-11.0)
--- NOTE | 2021-03-26 07:10 | NUR ---
report given to oncoming shift for tico.
[2021-03-26 07:12] LABS: CARBON DIOXIDE 25 mmol/L (21-32); CHLORIDE 105 mmol/L (98-107); CREATININE 2.1 mg/dL (0.6-1.3); GLUCOSE 113 mg/dL (74-106); MAGNESIUM 2.4 mg/dL (1.8-2.4); PHOSPHORUS 1.6 mg/dL (2.5-4.9); POTASSIUM 3.5 mmol/L (3.5-5.1); SODIUM SERUM 144 mmol/L (136-145); UREA NITROGEN, BLOOD 44 mg/dL (7-18)
--- NOTE | 2021-03-26 07:30 | NUR ---
RN OPENING NOTE OBTUNDED VENT/TRACH PT ON VENT SETTINGS PER MD ORDER: TRACH P 7, AC 18, TV 500, FIO2 35%, PEEP 5, TOLERATING WELL, BREATHING EVEN AND UNLABORED, NO SOB OR RESP DISTRESS NOTED, SPO2 100%. PT IS OBTUNDED, SR ON TELEBOX IN 70s. PT CURRENTLY RUNNING NEPRO 1.8 @ 30ML/HR, TOLERATING WELL, NO RESIDUALS NOTED, AUSCULTATED FOR POSITIVE PLACEMENT, PATENT AND INTACT. PT SACRAL WOUND NOTED, COVERED IN CLEAN/DRY DRSG. PT HAS NASEEM MIDLINE SL, RT FOOT #20 SL, BOTH FLUSHED, PATENT AND INTACT. RT CHEST PERMACATH NOTED WELL. PT DUE BLADDER SCAN Q8H, WILL SCAN AT 1200. PT TEMP DOWN FROM 102.1 F TO 98.4 F. ALL PT SAFETY PRECAUTIONS IN PLACE, WILL CONT TO MONITOR
[2021-03-26 08:00] VITALS: BP 119/50
[2021-03-26] MEDS: SEVELAMER CARBONATE 800 MG POWD.PACK GT SCH ×3 (08:36→17:39)
[2021-03-26] MEDS: METOCLOPRAMIDE HCL 10 MG TABLET PO SCH ×3 (08:38→17:39)
[2021-03-26] MEDS: CHLORHEXIDINE GLUCONATE 15 ML UDC MM SCH ×2 (08:38→16:50)
[2021-03-26] MEDS: PANTOPRAZOLE 40 MG/PACK PACK GT SCH (08:38)
[2021-03-26] MEDS: PROSOURCE / PROSTAT (PYXIS) 30 ML UDC GT SCH ×2 (08:38→16:50)
[2021-03-26] MEDS: LACOSAMIDE 50 MG TABLET GT SCH ×2 (08:38→20:41)
[2021-03-26] MEDS: LABETALOL HCL (100MG) 100 MG TABLET PO SCH ×2 (08:39→20:43)
[2021-03-26] MEDS: LINEZOLID 600 MG TABLET PO SCH ×2 (08:39→20:43)
[2021-03-26] MEDS: PHENOBARBITAL 30 MG TABLET PO SCH ×2 (08:39→16:50)
[2021-03-26] MEDS: DORZOLAMIDE OPTH 2% 10 ML BOTTLE OP SCH ×2 (08:40→16:52)
[2021-03-26] MEDS: DAKINS QUARTER STRENGTH (0.125%) 480 ML BOTTLE TOP SCH (08:40)
[2021-03-26] MEDS: CLOTRIMAZOLE 1% 15 GM TUBE TP SCH ×2 (08:40→17:40)
[2021-03-26] MEDS: hydrALAZINE HCL 50 MG TABLET PO SCH ×3 (09:00→16:51)
[2021-03-26] MEDS: ISOSORBIDE DINITRATE (20MG) 20 MG TABLET PO SCH ×3 (09:00→16:51)
--- NOTE | 2021-03-26 09:45 | NUR ---
RN NOTE ISOSORBIDE AND HYDRALIZINE HELD FORF LOW DBP
[2021-03-26] MEDS ORDERED: K PHOS NEUTRAL 250 MG TABLET PO ONE (10:00)
[2021-03-26 12:00] VITALS: BP 106/51
--- NOTE | 2021-03-26 13:00 | NUR ---
RN NOTE BLADDER SCAN DENOTES 64 ML
[2021-03-26 16:00] VITALS: BP 164/65
[2021-03-26] MEDS: EPOETIN ALFA (4000 UNIT) 4,000 UNIT/ML VIAL SQ SCH (16:35)
[2021-03-26] MEDS: AMLODIPINE BESYLATE 10 MG TABLET PO SCH (17:39)
--- NOTE | 2021-03-26 19:00 | NUR ---
RN CLOSING NOTE NO CHANGES TO PT DURING SHIFT. SAME VENT SETTINGS PER MD ORDER. PT'S DAUGHTER BEDSIDE. PT'S GTF OF NEPRO 1.8 INCREASED AT 1800 TO GOAL RATE 40 ML/HR. BLADDER SCAN Q8H ENDORSED. ALL PT SAFETY PRECAUTIONS IN PLACE. OTIS ENDORSED TO BOOK MENDER RN
[2021-03-26 20:00] VITALS: BP 143/52
[2021-03-26] MEDS: COLISTIMETHATE SODIUM IV SCH (20:41)
[2021-03-26] MEDS: NS 0.9% IV SCH (20:41)
[2021-03-26] MEDS: LATANOPROST EYE DROP 0.005% 2.5 ML BOTTLE OP SCH (20:44)
[2021-03-26] MEDS: FLUCONAZOLE (100 MG) 100 MG TABLET PO SCH (20:47)
[2021-03-27] VITALS: BP 146/70
[2021-03-27] MEDS: IPRATROPIUM NEB FS 0.5 MG/2.5 ML AMPUL.NEB NEB SCH ×4 (01:45→20:16)
[2021-03-27] MEDS: ALBUTEROL FS 2.5 MG/3 ML VIAL.NEB NEB SCH ×4 (01:45→20:16)
[2021-03-27] MEDS: PHENYTOIN SODIUM IV 100 MG/2ML VIAL IV SCH ×3 (02:08→18:08)
--- NOTE | 2021-03-27 02:46 | NUR ---
RN notes Received patient laying in bed with eyes closed comfortably resting. Daughter was at bedside. On vent, settings well tolerated. No distress noted. Breathing even and unlabored. No physical manifestation of pain or discomfort. Bladder scan with 0 volume result at 1999. Noted with more than 500ml residual. Feeding held. Head of bed elevated. Informed MD with no new order. kept clean and dry. Will endorse to next shift for continuity of care.
[2021-03-27 04:00] VITALS: BP 151/60
[2021-03-27] MEDS: METRONIDAZOLE 500 MG TABLET PO SCH ×3 (05:02→20:47)
[2021-03-27 06:45] LABS: CALCIUM, SERUM 10.1 mg/dL (8.5-10.1); CARBON DIOXIDE 25 mmol/L (21-32); CHLORIDE 103 mmol/L (98-107); CREATININE 2.6 mg/dL (0.6-1.3); GLUCOSE 97 mg/dL (74-106); PHOSPHORUS 2.5 mg/dL (2.5-4.9); POTASSIUM 3.6 mmol/L (3.5-5.1); SODIUM SERUM 143 mmol/L (136-145); UREA NITROGEN, BLOOD 54 mg/dL (7-18)
--- NOTE | 2021-03-27 07:30 | NUR ---
RN OPENING NOTE OBTUNDED VENT/TRACH PT ON VENT SETTINGS PER MD ORDER: TRACH P 7, AC 18, TV 500, FIO2 35%, PEEP 5, TOLERATING WELL, BREATHING EVEN AND UNLABORED, NO SOB OR RESP DISTRESS NOTED, SPO2 100%. PT IS SR ON TELEBOX IN 70s. PT NEPRO CURRENTLY ON HOLD FOR EXCESS RESIDUALS, AUSCULTATED FOR POSITIVE PLACEMENT, PATENT AND INTACT. PT SACRAL WOUND NOTED, COVERED IN CLEAN/DRY DRSG. PT HAS NASEEM MIDLINE SL, RT FOOT #20 SL, BOTH FLUSHED, PATENT AND INTACT. RT CHEST PERMACATH NOTED WELL. PT DUE BLADDER SCAN Q8H, WILL SCAN AT 1200. ALL PT SAFETY PRECAUTIONS IN PLACE, WILL CONT TO MONITOR
[2021-03-27 08:00] VITALS: BP 137/33
--- NOTE | 2021-03-27 08:56 | NUR ---
RN NOTE OTIS ENDORSED TO RN YVONNE. ENDORSED TO CHECK GT RESIDUALS PRIOR TO RESUMING GT FEED. ALL PT SAFETY PRECAUTIONS IN PLACE
[2021-03-27] MEDS: PROSOURCE / PROSTAT (PYXIS) 30 ML UDC GT SCH ×2 (09:00→17:00)
[2021-03-27] MEDS: DAKINS QUARTER STRENGTH (0.125%) 480 ML BOTTLE TOP SCH (09:00)
[2021-03-27] MEDS: CLOTRIMAZOLE 1% 15 GM TUBE TP SCH ×2 (09:00→17:00)
[2021-03-27] MEDS: DORZOLAMIDE OPTH 2% 10 ML BOTTLE OP SCH ×2 (09:00→18:02)
[2021-03-27] MEDS: LACOSAMIDE 50 MG TABLET GT SCH ×2 (10:11→20:48)
[2021-03-27] MEDS: PHENOBARBITAL 30 MG TABLET PO SCH ×2 (10:11→18:00)
[2021-03-27] MEDS: LINEZOLID 600 MG TABLET PO SCH ×2 (10:12→20:47)
[2021-03-27] MEDS: METOCLOPRAMIDE HCL 10 MG TABLET PO SCH ×3 (10:12→18:07)
[2021-03-27] MEDS: FLUCONAZOLE (100 MG) 100 MG TABLET PO SCH (10:12)
[2021-03-27] MEDS: PANTOPRAZOLE 40 MG/PACK PACK GT SCH (10:12)
[2021-03-27] MEDS: ISOSORBIDE DINITRATE (20MG) 20 MG TABLET PO SCH ×3 (10:12→18:06)
[2021-03-27] MEDS: CHLORHEXIDINE GLUCONATE 15 ML UDC MM SCH ×2 (10:13→18:00)
[2021-03-27] MEDS: LABETALOL HCL (100MG) 100 MG TABLET PO SCH ×2 (10:15→20:45)
[2021-03-27] MEDS: hydrALAZINE HCL 50 MG TABLET PO SCH ×3 (10:15→18:07)
[2021-03-27 12:00] VITALS: BP 128/45
--- NOTE | 2021-03-27 16:53 | NUR ---
1000am. care taken over, residuals checked, still 250cc, tube feed HELD 12noon, bladder scanned, only 25cc 1500 HD initiated will check residual again when completed HD, and will go from there.
[2021-03-27] MEDS: AMLODIPINE BESYLATE 10 MG TABLET PO SCH (18:01)
[2021-03-27 18:30] VITALS: BP 127/52
--- NOTE | 2021-03-27 18:53 | NUR ---
completed HD, no output per HD nurse 1730 residual checked again, 15cc, tube feeding resumed at 40cc per hour
[2021-03-27 20:00] VITALS: BP 145/50
[2021-03-27] MEDS: NS 0.9% IV SCH (20:12)
[2021-03-27] MEDS: COLISTIMETHATE SODIUM IV SCH (20:12)
[2021-03-27] MEDS: LATANOPROST EYE DROP 0.005% 2.5 ML BOTTLE OP SCH (21:12)
[2021-03-27] MEDS: ACETAMINOPHEN 325 MG TABLET MC PRN (22:59)
[2021-03-28] VITALS: BP_SYST 133; BP_DIAS 50; BP_DIAS 52
[2021-03-28] MEDS: PHENYTOIN SODIUM IV 100 MG/2ML VIAL IV SCH ×3 (00:35→17:22)
[2021-03-28] MEDS: ALBUTEROL FS 2.5 MG/3 ML VIAL.NEB NEB SCH ×4 (01:39→20:21)
[2021-03-28] MEDS: IPRATROPIUM NEB FS 0.5 MG/2.5 ML AMPUL.NEB NEB SCH ×4 (01:39→20:21)
--- NOTE | 2021-03-28 03:41 | NUR ---
RN notes Patient in bed with daughter at bedside. Obtunted, no eye tracking noted. No distress noted. On vent tolerating well. Breathing even and unlabored. Treatment done for sacral pressure sore x 2. No physical manifestation of pain or discomfort. Noted with elevated temp at 21:00 100.7. Tylenol given 650mg. Temperature went down to 99.7 after 1 hour. 0 volume in the bladder scan noted at 20:00 and 04:00. Kept clean and dry. Will endorse to next shift for continuity of care.
[2021-03-28 04:00] VITALS: BP 127/59
[2021-03-28] MEDS: METRONIDAZOLE 500 MG TABLET PO SCH ×3 (04:37→21:22)
--- NOTE | 2021-03-28 07:25 | NUR ---
RN OPENING NOTES PATIENT RECEIVED IN BED RESTING IN SEMI-FOWLERS POSITION. PATIENT ON MECHANICAL VENT WITH APPROPRIATE SETTINGS. NO S/S OF PAIN SUCH FACIAL GRIMACING, MOANING OR GUARDING. R UPPER ARM MIDLINE AND RIGHT FOOT IV ACCESS INTACT AND PATENT. SAFETY PRECAUTIONS IMPLEMENTED, BED LOCKED IN LOW POSITION, SIDE RAILS UP X2, CALL LIGHT WITHIN REACH. WILL CONTINUE TO MONITOR AND PROVIDE CARE THROUGHOUT SHIFT.
[2021-03-28 08:00] VITALS: BP 130/46
[2021-03-28] MEDS: METOCLOPRAMIDE HCL 10 MG TABLET PO SCH ×3 (08:59→17:11)
[2021-03-28] MEDS: LINEZOLID 600 MG TABLET PO SCH ×2 (09:00→21:22)
[2021-03-28] MEDS: PANTOPRAZOLE 40 MG/PACK PACK GT SCH (09:00)
[2021-03-28] MEDS: CLOTRIMAZOLE 1% 15 GM TUBE TP SCH ×2 (09:00→17:13)
[2021-03-28] MEDS: DAKINS QUARTER STRENGTH (0.125%) 480 ML BOTTLE TOP SCH (09:00)
[2021-03-28] MEDS: PHENOBARBITAL 30 MG TABLET PO SCH ×2 (09:01→17:11)
[2021-03-28] MEDS: LACOSAMIDE 50 MG TABLET GT SCH ×2 (09:11→21:22)
[2021-03-28] MEDS: CHLORHEXIDINE GLUCONATE 15 ML UDC MM SCH ×2 (09:11→17:13)
[2021-03-28] MEDS: FLUCONAZOLE (100 MG) 100 MG TABLET PO SCH (09:11)
[2021-03-28] MEDS: ISOSORBIDE DINITRATE (20MG) 20 MG TABLET PO SCH ×3 (09:13→17:12)
[2021-03-28] MEDS: LABETALOL HCL (100MG) 100 MG TABLET PO SCH ×2 (09:13→21:00)
[2021-03-28] MEDS: DORZOLAMIDE OPTH 2% 10 ML BOTTLE OP SCH ×2 (09:20→17:28)
[2021-03-28] MEDS: PROSOURCE / PROSTAT (PYXIS) 30 ML UDC GT SCH ×2 (09:20→17:26)
[2021-03-28] MEDS: hydrALAZINE HCL 50 MG TABLET PO SCH ×3 (09:21→17:13)
[2021-03-28 10:09] LABS: BASOPHILS % (AUTO) 0.8 % (0.0-2.0); EOSINOPHILS % (AUTO) 5.6 % (0.0-6.0); HEMATOCRIT 23 % (33-45); HEMOGLOBIN 7.3 g/dL (11.5-14.8); LYMPHOCYTES % (AUTO) 15.2 % (20.0-44.0); MEAN CORPUSCULAR HGB CONC 31 g/dl (31.0-36.0); MEAN CORPUSCULAR VOLUME 98 fL (82-100); MONOCYTES % (AUTO) 8.7 % (2.0-12.0); NEUTROPHILS % (AUTO) 69.7 % (43.0-81.0); PLATELET COUNT (AUTO) 383 K/uL (150-450); RED BLOOD CELL COUNT(AUTO) 2.39 MIL/uL (4.0-5.2); WHITE BLOOD COUNT (AUTO) 12.4 K/uL (4.3-11.0)
[2021-03-28 10:10] LABS: BASOPHILS # (AUTO) 0.1 K/uL (0.0-0.2); LYMPHOCYTES # (AUTO) 1.9 K/uL (0.8-4.8); MONOCYTES # (AUTO) 1.1 K/uL (0.1-1.30); NEUTROPHILS # (AUTO) 8.6 K/uL (1.8-8.9)
[2021-03-28 10:21] LABS: CALCIUM, SERUM 9.9 mg/dL (8.5-10.1); CARBON DIOXIDE 26 mmol/L (21-32); CHLORIDE 108 mmol/L (98-107); GLUCOSE 100 mg/dL (74-106); SODIUM SERUM 145 mmol/L (136-145); UREA NITROGEN, BLOOD 37 mg/dL (7-18)
[2021-03-28 12:00] VITALS: BP 109/52
[2021-03-28] MEDS: ACETAMINOPHEN 325 MG TABLET MC PRN (13:15)
[2021-03-28] MEDS: EPOETIN ALFA (4000 UNIT) 4,000 UNIT/ML VIAL SQ SCH (15:37)
[2021-03-28 16:00] VITALS: BP 147/42
[2021-03-28] MEDS: AMLODIPINE BESYLATE 10 MG TABLET PO SCH (17:11)
--- NOTE | 2021-03-28 18:38 | NUR ---
90 ml of residual noted. feeding stopped for about 1 hour. patient then had big BM. rechecked residual and showed 40 ml. feeding restarted at 40 ml/hr. bladder scan = 162 mL
--- NOTE | 2021-03-28 18:47 | NUR ---
RN CLOSING NOTES PATIENT IN BED RESTING IN SEMI-FOWLERS POSITION. PATIENT ON MECHANICAL VENT WITH APPROPRIATE SETTINGS. NO S/S OF PAIN SUCH FACIAL GRIMACING, MOANING OR GUARDING. R UPPER ARM MIDLINE AND RIGHT FOOT IV ACCESS INTACT AND PATENT. SAFETY PRECAUTIONS IMPLEMENTED, BED LOCKED IN LOW POSITION, SIDE RAILS UP X2, CALL LIGHT WITHIN REACH. WILL ENDORSE CARE TO UPCOMING SHIFT.
[2021-03-28 20:00] VITALS: BP 127/48
[2021-03-28] MEDS: NS 0.9% IV SCH (20:30)
[2021-03-28] MEDS: COLISTIMETHATE SODIUM IV SCH (20:30)
--- NOTE | 2021-03-28 21:04 | NUR ---
MASTER AUTOMOTIVE TECHNICIAN OPENING NOTE PATIENT IN BED A/OX1. ON O2 VIA PORTEX; TOLERATING WELL WITH NO SOB. EXTERNAL VP SOFTWARE READS NSR AT 74. NO S/SX OF PAIN OR DISCOMFORT. GT PEG PATENT; NEPHRO @ 40ML/HR. NASEEM MIDLINE #18G S/L; PATENT AND INTACT. HD PERMACATH TO RCW; DRESSING KEPT C/D/I. DAUGHTER AT BEDSIDE. SAFETY MEASURES IN PLACE: BED IN LOWEST LOCKED POSITION, SIDE RAILS UPX2, CALL LIGHT WITHIN EASY REACH. PATIENT IN STABLE CONDITION WILL CONTINUE PLAN OF CARE.
[2021-03-28] MEDS: LATANOPROST EYE DROP 0.005% 2.5 ML BOTTLE OP SCH (22:17)
[2021-03-29] VITALS: BP 112/50
[2021-03-29] MEDS: ACETAMINOPHEN 325 MG TABLET MC PRN ×2 (00:16→20:51)
[2021-03-29] MEDS: PHENYTOIN SODIUM IV 100 MG/2ML VIAL IV SCH ×3 (00:18→16:18)
--- NOTE | 2021-03-29 00:30 | NUR ---
TILE LAYER HELPER NOTE - TEMP PATIENT NOTED WITH TEMP OF 99.2. ADMINISTERED TYLENOL ORDERED AT 0016 . CHARGE NURSE AWARE. NOTIFIED GAYANNE DAUGHTER. WILL CONTINUE TO REASSESS TEMPERATURE.
[2021-03-29] MEDS: ALBUTEROL FS 2.5 MG/3 ML VIAL.NEB NEB SCH ×4 (02:10→20:07)
[2021-03-29] MEDS: IPRATROPIUM NEB FS 0.5 MG/2.5 ML AMPUL.NEB NEB SCH ×4 (02:10→20:07)
[2021-03-29 04:00] VITALS: BP 151/63
[2021-03-29] MEDS: METRONIDAZOLE 500 MG TABLET PO SCH ×3 (05:24→20:50)
--- NOTE | 2021-03-29 06:59 | NUR ---
FINE UNHAIRER CLOSING NOTE PATIENT IN BED A/OX1. ON O2 VIA PORTEX; TOLERATING WELL WITH NO SOB. EXTERNAL BUFFET MANAGER READS NSR AT 74. NO S/SX OF PAIN OR DISCOMFORT. GT PEG PATENT; NEPHRO @ 40ML/HR. NASEEM MIDLINE #18G S/L; PATENT AND INTACT. HD PERMACATH TO RCW; DRESSING KEPT C/D/I. AFEBRILE. SAFETY MEASURES IN PLACE: BED IN LOWEST LOCKED POSITION, SIDE RAILS UPX2, CALL LIGHT WITHIN EASY REACH. PATIENT IN STABLE CONDITION WILL ENDORSE PLAN OF CARE TO MORNING RN.
[2021-03-29 08:00] VITALS: BP 142/53
[2021-03-29] MEDS: LABETALOL HCL (100MG) 100 MG TABLET PO SCH ×2 (09:20→21:00)
[2021-03-29] MEDS: hydrALAZINE HCL 50 MG TABLET PO SCH ×3 (09:20→16:19)
[2021-03-29] MEDS: PHENOBARBITAL 30 MG TABLET PO SCH ×2 (09:21→16:19)
[2021-03-29] MEDS: PANTOPRAZOLE 40 MG/PACK PACK GT SCH (09:21)
[2021-03-29] MEDS: FLUCONAZOLE (100 MG) 100 MG TABLET PO SCH (09:21)
[2021-03-29] MEDS: LACOSAMIDE 50 MG TABLET GT SCH ×2 (09:21→20:50)
[2021-03-29] MEDS: ISOSORBIDE DINITRATE (20MG) 20 MG TABLET PO SCH ×3 (09:21→16:18)
[2021-03-29] MEDS: LINEZOLID 600 MG TABLET PO SCH ×2 (09:22→20:50)
[2021-03-29] MEDS: CLOTRIMAZOLE 1% 15 GM TUBE TP SCH ×2 (09:22→17:10)
[2021-03-29] MEDS: CHLORHEXIDINE GLUCONATE 15 ML UDC MM SCH ×2 (09:23→16:18)
[2021-03-29] MEDS: METOCLOPRAMIDE HCL 10 MG TABLET PO SCH ×3 (09:23→17:10)
[2021-03-29] MEDS: DAKINS QUARTER STRENGTH (0.125%) 480 ML BOTTLE TOP SCH (09:24)
[2021-03-29] MEDS: DORZOLAMIDE OPTH 2% 10 ML BOTTLE OP SCH ×2 (09:24→16:20)
[2021-03-29] MEDS: PROSOURCE / PROSTAT (PYXIS) 30 ML UDC GT SCH ×2 (09:52→16:18)
[2021-03-29 12:11] VITALS: BP 139/46
--- NOTE | 2021-03-29 12:16 | NUR ---
obtuned, arousable on voices, on tactile stimuli. Opened eyes quickly, and closed them right away 1210 bladder scanned, 68cc, together 2rn checked at least 3 times, same amount of urine found in bladder
[2021-03-29 16:00] VITALS: BP 135/51
--- NOTE | 2021-03-29 16:00 | NUR ---
RN NOTE RECEIVED REPORT FROM NIMA PINEDA
[2021-03-29] MEDS: AMLODIPINE BESYLATE 10 MG TABLET PO SCH (17:10)
--- NOTE | 2021-03-29 17:50 | NUR ---
RT END OF THE SHIFT REPORT, PT. 71 Y OLD FEMALE TRACH PORTEX # 7 ON VENT WITH NOTED SETTINGS, ALARMS ARE SET AND FUNCTIONAL, EQUAL CHEST RISE NOTED, VENT PLUGGED INTO RED OUTLET, AMBU BAG REMAIN AT THE BEDSIDE. B/S RALES BILATERALLY TX'S GIVEN INLINE RESHMA. WELL NO ADVERSE REACTION NOTED. FAMILY MEMBER AT THE BEDSIDE. SUCTIONED FOR MINIMAL AMOUNT OF YELLOW THICK SECRETIONS, NO DISTRESS NOTED T/O DAY HME CHANGED, BIOLOGY SPECIALIST DONE, PT. RESHMA. VENT SETTINGS WITH NO CHANGES. REPORT WILL BE PASS TO CHEMICAL PROCESSING LABORER. Addendum: 03/29/21 at 1750 by TYSON REA RT Amended: Links added.
--- NOTE | 2021-03-29 18:29 | NUR ---
RN CLOSING NOTE PATIENT IN BED. NON VERBAL. [facility] VENT [place] #7 WITH SETTINGS AC 18 TV 500 FI02 35 PEEP 5%. NO SOB NOTED. NO S/S OF RESPIRATORY DISTRESS, SATURATING AT 100%. TELE READING SHOWS SR 71. IV ACCESS ON R FOOT #20 G, NASEEM MIDLINE #18, INTACT AND PATENT. RCW PERMA CATH C/D/I. GTF NEPRO RUNNING AT 40 ML/HR, 10 CC RESIDUAL, TOLERATING FEEDING WELL. ROUTINE MEDS WERE GIVEN ORDERED. DAUGHTER AT THE BEDSIDE. SAFETY MEASURES MAINTAINED. BED IN LOWEST POSITION, BRAKES LOCKED. SIDE RAILS UP X 2. CALL LIGHT WITHIN REACH. WILL ENDORSE CONTINUITY OF CARE TO ONCOMING SHIFT.
--- NOTE | 2021-03-29 19:35 | NUR ---
RN OPENING NOTE RECD PATIENT IN BED. NON VERBAL. TRACH TO [facility] VENT PORTEX #7 WITH SETTINGS AC 18 TV 500 FI02 35 PEEP 5%. NO SOB NOTED. NO S/S OF RESPIRATORY DISTRESS, SATURATING AT 100%. TELE READING SHOWS SR 71. IV ACCESS ON R FOOT #20 G, NASEEM MIDLINE #18, INTACT AND PATENT. FLUSHED ASEPTICALLY. RCW HD PERMA CATH C/D/I. GTF NEPRO RUNNING AT 40 ML/HR, 40 CC RESIDUAL, WILL PAUSE FEEDING FOR NOW. SAFETY MEASURES IN PLACE. HOB ELEVATED. BED IN LOWEST POSITION, BRAKES LOCKED. SIDE RAILS UP X 2. CONT TO MONITOR THROUGHOUT SHIFT.
[2021-03-29 20:00] VITALS: BP 124/46
[2021-03-29] MEDS: NS 0.9% IV SCH (20:50)
[2021-03-29] MEDS: COLISTIMETHATE SODIUM IV SCH (20:50)
--- NOTE | 2021-03-29 20:52 | NUR ---
RN NOTE- ABX PT HAS ABX ORDERED, COLISTIMETHATE SODIUM DUE @1999, CALLED [facility] SPOKE WITH MARLENE REGARDING ADMINISTRATION. PER ORDER OK TO CONT Q24H. IF PT HAS DIALYSIS THAT NIGHT, ENSURE ADMINISTRATION IS DONE STATUS POST DIALYSIS. NOTIFIED JOVITA PAREKH. SAYS CONTINUE ORDER.
--- NOTE | 2021-03-29 20:57 | NUR ---
RN NOTE TEMP PT TEMP IS 100.1 ADMINISTERING TYLENOL WITH ICE PACKS AND COOLING MEASURES APPLIED. WILL CONT TO MONITOR.
--- NOTE | 2021-03-29 21:30 | NUR ---
RN NOTE BLADDER SCAN READS AT 240ML AT THIS TIME. NO NEED FOR STRAIGHT CATH WILL CONT TO MONITOR
[2021-03-29] MEDS: LATANOPROST EYE DROP 0.005% 2.5 ML BOTTLE OP SCH (22:05)
--- NOTE | 2021-03-29 23:00 | NUR ---
RN NOTE RECEIVED PT FROM JUAN PABLO FOR OTIS.
--- NOTE | 2021-03-29 23:00 | NUR ---
REPORT GIVEN TO NIMA ORDONEZ FOR CONTINUATION OF CARE
[2021-03-30] VITALS: BP 118/45
[2021-03-30] MEDS: PHENYTOIN SODIUM IV 100 MG/2ML VIAL IV SCH ×3 (01:21→17:35)
[2021-03-30] MEDS: ALBUTEROL FS 2.5 MG/3 ML VIAL.NEB NEB SCH ×4 (01:50→20:35)
[2021-03-30] MEDS: IPRATROPIUM NEB FS 0.5 MG/2.5 ML AMPUL.NEB NEB SCH ×4 (01:50→20:35)
[2021-03-30 04:00] VITALS: BP 124/46
--- NOTE | 2021-03-30 04:00 | NUR ---
BLADDER SCAN DONE 310 RESIDUAL NOTED. REMOVED 100 ML.
[2021-03-30] MEDS: METRONIDAZOLE 500 MG TABLET PO SCH (04:38)
--- NOTE | 2021-03-30 07:22 | NUR ---
RN NOTE REPORT GIVEN TO ONCOMING SHIFT FOR OTIS.
--- NOTE | 2021-03-30 07:30 | NUR ---
EMPLOYEE RELATION MANAGER AM NOTE PATIENT IN BED, RESTING IN SEMI-FOWLERS POSITION. OBTUNDED, WITH PORTEX 7 CUFFED TO MECHANICAL VENT WITH SETTINGS ORDERED AC 18 TV 500 FIO2 35% PEEP 5, BREATHING EVEN AND UNLABORED. SINUS RHYTHM HR 67 ON MONITOR. NO SIGN AND SYMPTOM OF PAIN NOTED. RIGHT UPPER MIDLINE G20 AND RIGHT FOOT #20 G INTACT AND PATENT. BOTH SITES CLEAR. RIGHT CW PERMACATH WITH [employer] DRESSINGS. FOR DIALYSIS TODAY?. SEE NURSING FLOWSHEET FOR SKIN ISSUES. GTF NEPRO ONGOING, AT 40 ML/HR, CHECKED FOR PLACEMENT, O RESIDUAL. SAFETY PRECAUTIONS IMPLEMENTED, SIDE RAILS UP X2, BED LOCKED IN LOWEST POSITION, CALL LIGHT WITHIN REACH.
[2021-03-30 08:00] VITALS: BP 102/54
[2021-03-30] MEDS: CHLORHEXIDINE GLUCONATE 15 ML UDC MM SCH ×2 (08:42→17:29)
[2021-03-30] MEDS: METOCLOPRAMIDE HCL 10 MG TABLET PO SCH ×3 (08:43→17:27)
[2021-03-30] MEDS: PANTOPRAZOLE 40 MG/PACK PACK GT SCH (08:46)
[2021-03-30] MEDS: PROSOURCE / PROSTAT (PYXIS) 30 ML UDC GT SCH ×2 (08:46→17:27)
[2021-03-30] MEDS: LACOSAMIDE 50 MG TABLET GT SCH ×2 (08:46→21:24)
[2021-03-30] MEDS: PHENOBARBITAL 30 MG TABLET PO SCH ×2 (08:48→17:27)
[2021-03-30] MEDS: LINEZOLID 600 MG TABLET PO SCH (08:48)
[2021-03-30] MEDS: FLUCONAZOLE (100 MG) 100 MG TABLET PO SCH (08:48)
[2021-03-30] MEDS: DAKINS QUARTER STRENGTH (0.125%) 480 ML BOTTLE TOP SCH (08:49)
[2021-03-30] MEDS: DORZOLAMIDE OPTH 2% 10 ML BOTTLE OP SCH ×2 (08:51→17:34)
[2021-03-30] MEDS: CLOTRIMAZOLE 1% 15 GM TUBE TP SCH ×2 (08:55→17:28)
[2021-03-30] MEDS: ISOSORBIDE DINITRATE (20MG) 20 MG TABLET PO SCH ×3 (09:00→17:00)
[2021-03-30] MEDS: LABETALOL HCL (100MG) 100 MG TABLET PO SCH ×2 (09:00→21:24)
[2021-03-30] MEDS: hydrALAZINE HCL 50 MG TABLET PO SCH ×3 (09:00→17:00)
--- NOTE | 2021-03-30 09:30 | NUR ---
RN NOTES DUE MEDS GIVEN EXCEPT BP MEDS.
[2021-03-30 12:00] VITALS: BP 118/47
--- NOTE | 2021-03-30 12:00 | NUR ---
RN NOTES BLADDER SCAN = 1O9 ML
[2021-03-30 16:00] VITALS: BP 129/47
[2021-03-30] MEDS: AMLODIPINE BESYLATE 10 MG TABLET PO SCH (17:28)
--- NOTE | 2021-03-30 19:30 | NUR ---
RN OPENING NOTE RECD PATIENT IN BED. NON VERBAL. TRACH TO [facility] VENT PORTEX #7 WITH SETTINGS AC 18 TV 500 FI02 35 PEEP 5%. TOLERATING WELL. NO SOB NOTED. NO S/S OF RESPIRATORY DISTRESS, SATURATING AT 98%. TELE READING SHOWS SR 71. IV ACCESS ON R FOOT #20 G, NASEEM MIDLINE #18, INTACT AND PATENT. FLUSHED ASEPTICALLY. RCW HD PERMA CATH C/D/I. GTF NEPRO RUNNING AT 40 ML/HR, 0 CC RESIDUAL, SAFETY MEASURES IN PLACE. HOB ELEVATED. BED IN LOWEST POSITION, BRAKES LOCKED. SIDE RAILS UP X 2. CONT TO MONITOR THROUGHOUT SHIFT.
--- NOTE | 2021-03-30 19:46 | NUR ---
RN NOTES ALL NEEDS MET AT THIS TIME. PM CARE AND PRESCRIBED WOUND TREATMENT DONE EARLIER. TURNED AND REPOSITIONED Q 2 HOURS. HOB ELEVATED. RESTING COMFORTABLY. NO SIGNIFICANT CHANGE IN CONDITION. WILL ENDORSE TO NEXT SHIFT FOR OTIS. FOR DISCHARGE JESSI AT 1900
[2021-03-30 20:00] VITALS: BP 135/59
[2021-03-30] MEDS: LATANOPROST EYE DROP 0.005% 2.5 ML BOTTLE OP SCH (21:24)
--- NOTE | 2021-03-30 21:30 | NUR ---
RN NOTE ON BLADDER SCANNER, NOTED 120ML OF URINE. NO STRAIGHT CATH NEEDED AT THIS TIME
[2021-03-31] VITALS: BP 133/52
[2021-03-31] MEDS: PHENYTOIN SODIUM IV 100 MG/2ML VIAL IV SCH ×3 (00:57→17:48)
[2021-03-31] MEDS: ALBUTEROL FS 2.5 MG/3 ML VIAL.NEB NEB SCH ×3 (02:02→13:16)
[2021-03-31] MEDS: IPRATROPIUM NEB FS 0.5 MG/2.5 ML AMPUL.NEB NEB SCH ×3 (02:02→13:16)
[2021-03-31 04:00] VITALS: BP 136/50
[2021-03-31] MEDS: NEPRO 1,000 ML BOTTLE GT PRN (04:19)
--- NOTE | 2021-03-31 05:20 | NUR ---
RN NOTE BLADDER SCAN PRESENTS WITH 65ML
[2021-03-31] MEDS: ACETAMINOPHEN 325 MG TABLET MC PRN (05:22)
--- NOTE | 2021-03-31 05:40 | NUR ---
RN NOTE TEMP NOTED TO BE 100.0 CONSIDERING PT TEMP ELEVATED OFTEN, ADMIN OF TYLENOL PRN ORDERED IN ADDITION TO COOLING MEASURES WILL CONT TO MONITOR.
--- NOTE | 2021-03-31 07:15 | NUR ---
RN NOTE NO SIGNIFICANT CHANGES TO PT CONDITION, PT REMAINS IN BED NO DISTRESS ON SAME VENT SETTINGS TOLERATING WELL. HR ON TELE PRESENTS 73 WITH NSR. GT FEEDING RUNNING AT 40ML/HR ORDERED. ALL DUE MEDS GIVEN. BED BATH DONE. WOUND CARE DONE. SAFETY MEASURES IN PLACE. HOB ELEVATED. BED LOCKED IN LOWEST POSITION WITH BED ALARM ON. ALL LIGHT WITHIN REACH. WILL CONT TO MONITOR
--- NOTE | 2021-03-31 07:30 | NUR ---
RN OPENING NOTE OBTUNDED VENT/TRACH PT ON VENT SETTINGS PER MD ORDER: TRACH SH 7, AC 18, TV 500, FIO2 35%, PEEP 5, TOLERATING WELL, BREATHING EVEN AND UNLABORED, NO SOB OR RESP DISTRESS NOTED, SPO2 99%. PT IS SR ON TELEBOX IN 60s. PT NEPRO RUNNING @ 40 ML/HR, NO RESIDUALS NOTED, AUSCULTATED FOR POSITIVE PLACEMENT, PATENT AND INTACT. PT SACRAL WOUND NOTED, COVERED IN CLEAN/DRY DRSG. PT HAS NASEEM MIDLINE SL, RT FOOT #20 SL, BOTH FLUSHED, PATENT AND INTACT. RT CHEST PERMACATH NOTED WELL. PT DUE BLADDER SCAN Q8H, WILL SCAN AT 1200. ALL PT SAFETY PRECAUTIONS IN PLACE, WILL CONT TO MONITOR
[2021-03-31 08:00] VITALS: BP 143/55
[2021-03-31] MEDS: LACOSAMIDE 50 MG TABLET GT SCH (08:46)
[2021-03-31] MEDS: PHENOBARBITAL 30 MG TABLET PO SCH ×2 (08:46→17:49)
[2021-03-31] MEDS: ISOSORBIDE DINITRATE (20MG) 20 MG TABLET PO SCH ×3 (08:47→17:00)
[2021-03-31] MEDS: METOCLOPRAMIDE HCL 10 MG TABLET PO SCH ×3 (08:47→17:52)
[2021-03-31] MEDS: CHLORHEXIDINE GLUCONATE 15 ML UDC MM SCH ×2 (08:48→17:50)
[2021-03-31] MEDS: LABETALOL HCL (100MG) 100 MG TABLET PO SCH (08:48)
[2021-03-31] MEDS: PANTOPRAZOLE 40 MG/PACK PACK GT SCH (08:48)
[2021-03-31] MEDS: CLOTRIMAZOLE 1% 15 GM TUBE TP SCH ×2 (08:49→17:52)
[2021-03-31] MEDS: DAKINS QUARTER STRENGTH (0.125%) 480 ML BOTTLE TOP SCH (08:49)
[2021-03-31] MEDS: DORZOLAMIDE OPTH 2% 10 ML BOTTLE OP SCH ×2 (08:50→17:50)
[2021-03-31] MEDS: PROSOURCE / PROSTAT (PYXIS) 30 ML UDC GT SCH ×2 (08:52→17:51)
[2021-03-31] MEDS: hydrALAZINE HCL 50 MG TABLET PO SCH ×3 (09:00→17:00)
[2021-03-31 12:00] VITALS: BP 103/39
--- NOTE | 2021-03-31 13:00 | NUR ---
RN NOTE PT BLADDER SCAN 75ML
[2021-03-31 16:00] VITALS: BP 126/61
[2021-03-31 17:00] VITALS: BP 108/48
[2021-03-31] MEDS: EPOETIN ALFA (4000 UNIT) 4,000 UNIT/ML VIAL SQ SCH (17:49)
[2021-03-31] MEDS: AMLODIPINE BESYLATE 10 MG TABLET PO SCH (17:52)
--- NOTE | 2021-03-31 19:15 | NUR ---
RN CLOSING NOTE NO CHANGES TO PT DURING SHIFT. PT ON SAME VENT SETTINGS PER MD ORDER, NO SOB OR RESP DISTRESS NOTED, BREATHING EVEN AND UNLABORED. ALL PT SAFETY PRECAUTIONS IN PLACE. PT SON AND DAUGHTER BEDSIDE. PT READY FOR DISCHARGE TO SNF, AWAITING AMBULANCE PICKUP. OTIS ENDORSED TO RN
--- NOTE | 2021-03-31 19:30 | NUR ---
OVERHEAD CRANE INSPECTOR OPENING NOTES PATIENT IN BED WITH FAMILY AT BEDSIDE, NON-VERBAL. TRACH TO [facility] VENT PORTEX #7 WITH SETTINGS AC 18 TV 500 FI02 35 PEEP 5%. NO S/S OF RESPIRATORY DISTRESS OR SOB NOTED, SATURATING AT 100%. NASEEM MIDLINE #18, INTACT AND PATENT. GT RUNNING NEPRO @ 40 ML/HR. SAFETY MEASURES IN PLACE. HOB ELEVATED. BED IN LOWEST POSITION, BRAKES LOCKED. SIDE RAILS UP X 2. PATIENT AWAITING DISCHARGE, WILL CONTINUE TO MONITOR
--- NOTE | 2021-03-31 19:45 | NUR ---
SCREEN REPAIRER CRUSHERCAREER RESOURCE TECHNICIAN NOTES PATIENT PICKED UP IN STABLE CONDITION FOR TRANSPORT, REPORT GIVEN TO EMT'S. FAMILY AT BEDSIDE. PATIENT SUCTIONED BEFORE DISCHARGE BY RT, GT FEEDING DISCONNECTED AND LOCKED. NASEEM MIDLINE INTACT AND PATENT. DISCHARGE PAPERS GIVEN TO EMT'S
== END 2021-03-31 19:45 | DRG 981 ==
LOC: ER 17:41 → TELE1 21:48
PROVIDERS: ADMIT Nurse Practitioner Acute Care; ATTEND Internal Medicine
PROC: 5A1955Z Respiratory Ventilation, Greater than 96 Consecutive Hours (ICD-10-PCS; principal; 2021-02-28)
PROC: 5A1D70Z Performance of Urinary Filtration, Intermittent, Less than 6 Hours Per Day (ICD-10-PCS; 2021-03-03)
PROC: 30233N1 Transfusion of Nonautologous Red Blood Cells into Peripheral Vein, Percutaneous Approach (ICD-10-PCS; 2021-03-03)
PROC: 05H533Z Insertion of Infusion Device into Right Subclavian Vein, Percutaneous Approach (ICD-10-PCS; 2021-03-03)
PROC: B546ZZA Ultrasonography of Right Subclavian Vein, Guidance (ICD-10-PCS; 2021-03-03)
PROC: 05PYX3Z Removal of Infusion Device from Upper Vein, External Approach (ICD-10-PCS; 2021-03-05)
PROC: 0KBP0ZZ Excision of Left Hip Muscle, Open Approach (ICD-10-PCS; 2021-03-13)
PROC: 0KBN0ZZ Excision of Right Hip Muscle, Open Approach (ICD-10-PCS; 2021-03-13)
PROC: 05HM33Z Insertion of Infusion Device into Right Internal Jugular Vein, Percutaneous Approach (ICD-10-PCS; 2021-03-15)
PROC: B543ZZA Ultrasonography of Right Jugular Veins, Guidance (ICD-10-PCS; 2021-03-15)
PROC: 0JH63XZ Insertion of Tunneled Vascular Access Device into Chest Subcutaneous Tissue and Fascia, Percutaneous Approach (ICD-10-PCS; 2021-03-19)
PROC: 02HV33Z Insertion of Infusion Device into Superior Vena Cava, Percutaneous Approach (ICD-10-PCS; 2021-03-19)
PROC: B548ZZA Ultrasonography of Superior Vena Cava, Guidance (ICD-10-PCS; 2021-03-19)
DX: T80.211A Bloodstream infection due to central venous catheter, initial encounter (principal); L89.154 Pressure ulcer of sacral region, stage 4; N18.6 End stage renal disease; G93.41 Metabolic encephalopathy; R65.20 Severe sepsis without septic shock; I50.31 Acute diastolic (congestive) heart failure; J15.6 Pneumonia due to other Gram-negative bacteria; A41.52 Sepsis due to Pseudomonas; N39.0 Urinary tract infection, site not specified; I13.11 Hypertensive heart and chronic kidney disease without heart failure, with stage 5 chronic kidney disease, or end stage renal disease; D68.59 Other primary thrombophilia; Z99.11 Dependence on respirator [ventilator] status; E44.0 Moderate protein-calorie malnutrition; I13.2 Hypertensive heart and chronic kidney disease with heart failure and with stage 5 chronic kidney disease, or end stage renal disease; I16.1 Hypertensive emergency; B37.89 Other sites of candidiasis; Z16.21 Resistance to vancomycin; E11.22 Type 2 diabetes mellitus with diabetic chronic kidney disease; Z99.2 Dependence on renal dialysis; D63.8 Anemia in other chronic diseases classified elsewhere; E11.43 Type 2 diabetes mellitus with diabetic autonomic (poly)neuropathy; I16.0 Hypertensive urgency; K21.9 Gastro-esophageal reflux disease without esophagitis; Z93.0 Tracheostomy status; Z93.1 Gastrostomy status; H40.9 Unspecified glaucoma; G40.901 Epilepsy, unspecified, not intractable, with status epilepticus; R13.10 Dysphagia, unspecified; Z86.73 Personal history of transient ischemic attack (TIA), and cerebral infarction without residual deficits; Z20.822 Contact with and (suspected) exposure to COVID-19; E88.09 Other disorders of plasma-protein metabolism, not elsewhere classified; M62.50 Muscle wasting and atrophy, not elsewhere classified, unspecified site; K31.84 Gastroparesis; Z68.27 Body mass index [BMI] 27.0-27.9, adult; B95.2 Enterococcus as the cause of diseases classified elsewhere; I05.0 Rheumatic mitral stenosis
CPT/HCPCS: 31720; 36415; 70450-TC; 71045-TC; 74018; 80048-TC; 80053-TC; 80061-TC; 80076-TC; 80170-TC; 80185-TC; 80202-TC; 81001; 83540-TC; 83605-TC; 83735-TC; 84100-TC; 84443-TC; 84484-TC; 85025-TC; 85730-TC; 86706; 86850-TC; 87040-TC; 87070-TC; 87081-TC; 87086-TC; 87186-TC; 87340; 90935-TC; 93307-TC; 93971-TC; 94002-TC; 94003-TC; 94760-TC; 94762-TC; 94799-TC; 95819-TC; 99082-TC; A4216; A4217; A4623; A6253; A6403; A7526; C1750; C1757; C1769; C1894; C9803; G0378; J0690; J0692; J0770; J0885; J1165; J1580; J1644; J1953; J2060; J2185; J2405; J2560; J2704; J3370; J3490; J7030; J7040; J7050; J7060; J8597; P9016; P9047; Q9967

== ENCOUNTER 2021-08-07 19:16 | Inpatient (IN) | payer MEDICARE, OTHER ==
[~2021-08-07] VITALS: Ht 160 cm; Wt 65.3 kg
[~2021-08-07 19:16] MED LIST: *INS REG3 IJ; ACET325T53 GT; ALBU1.257 IH; AMLO-213 PO; CARV25TA2 PO; CHLO118L4 MM; CLON0.2T PO; COLI150V12 IV; DORZ10DR10 OP; EPOE4000 IJ; HYDR100T27 PO; IPRA0.2S49 IH; ISOS20TA8 PO; LABE100T15 PO; LATA2.5D15 OP; Linezolid PO; METO-295 PO; MINO2.5T PO; Nepro GT; PANT40TA49 GT; PHEN30TA40 PO; PHEN50VI4 IV; Prosource GT; SEVE800T8 GT; SODI473S8 TOP
--- NOTE | 2021-08-07 20:00 | NUR ---
PT BIBRA C/O AB NORMAL LABS S/P MISSING DIALYSIS TODAY. PER EMS, PT MISSED DIALYSIS TODAY D/T BEING D/C FROM THE HOSPITAL AND MISSING HER APPT. PT AAOX0 BREATHING EVENLY AND UNLABORED. VENT SETTINGS 14RATE TV 500 FIO2 30% +5 PEEP. UPON ASSESSMENT, PT HAS RT PERMA CATH, VENT TRACH, PROCTOR CATH, AND RECTAL TUBE. PT ATTACHED TO MONITOR AND POX. PT GIVEN BLANKET AND CALL LIGHT WITHIN REACH.
--- NOTE | 2021-08-07 20:15 | NUR ---
RT pt placed on mechanical vent with settings from facility. settings: AC 14 500 30% +5. trach, portex 7. vent plugged in to red outlet. moderate thick secretions suctioned via trach. ambu bag at bedside. spare trach at bedside. no sob, no resp distress. will continue to monitor
--- NOTE | 2021-08-07 20:38 | NUR ---
BLOOD OBTAINED AND SENT TO LAB
[2021-08-07 20:58] LABS: BASOPHILS # (AUTO) 0.1 K/uL (0.0-0.2); BASOPHILS % (AUTO) 0.2 % (0.0-2.0); EOSINOPHILS % (AUTO) 0.6 % (0.0-6.0); LYMPHOCYTES # (AUTO) 1.6 K/uL (0.8-4.8); LYMPHOCYTES % (AUTO) 6.5 % (20.0-44.0); MEAN CORPUSCULAR HGB CONC 33 g/dl (31.0-36.0); MEAN CORPUSCULAR VOLUME 94 fL (82-100); MONOCYTES # (AUTO) 2.2 K/uL (0.1-1.30); MONOCYTES % (AUTO) 8.8 % (2.0-12.0); NEUTROPHILS # (AUTO) 21.3 K/uL (1.8-8.9); NEUTROPHILS % (AUTO) 83.9 % (43.0-81.0); PLATELET COUNT (AUTO) 430 K/uL (150-450); RED BLOOD CELL COUNT(AUTO) 2.16 MIL/uL (4.0-5.2); WHITE BLOOD COUNT (AUTO) 25.4 K/uL (4.3-11.0)
[2021-08-07 20:59] LABS: HEMATOCRIT 20 % (33-45); HEMOGLOBIN 6.7 g/dL (11.5-14.8)
--- NOTE | 2021-08-07 21:23 | NUR ---
MOVESHEET SUBMITTED AND NURSING SUP ASKED FOR BED
[2021-08-07 21:32] LABS: CALCIUM, SERUM 10.5 mg/dL (8.5-10.1); CARBON DIOXIDE 29 mmol/L (21-32); CHLORIDE 88 mmol/L (98-107); CREATININE 2.5 mg/dL (0.6-1.3); GLUCOSE 152 mg/dL (74-106); POTASSIUM 3.3 mmol/L (3.5-5.1); SODIUM SERUM 129 mmol/L (136-145); UREA NITROGEN, BLOOD 64 mg/dL (7-18)
--- NOTE | 2021-08-07 21:43 | NUR ---
CALLED [facility] PAGED RASHEED
[2021-08-07 22:07] LABS: EOSINOPHILS % (MANUAL) 1 % (0-4); LYMPHOCYTES % (MANUAL) 7 % (16-48); MONOCYTES % (MANUAL) 6 % (0-11.0); NEUTROPHILS % (MANUAL) 86 (42-76)
--- NOTE | 2021-08-07 22:13 | NUR ---
COVID SWAB SENT TO LAB
--- NOTE | 2021-08-07 22:16 | NUR ---
called son x 2 but no answer. trying to obtain consent for blood transfusion.
--- NOTE | 2021-08-07 22:58 | NUR ---
SPOKE TO DAUGHTERARSALAN WITH NIMA BARRAZA FOR VERBAL BLOOD CONSENT.
--- NOTE | 2021-08-07 22:59 | NUR ---
DAUGHTER ON PHONE CALL, SECOND RN FOR VERBAL BLOOD CONSENT.
[2021-08-07] MEDS ORDERED: ONDANSETRON HCL/PF 4 MG/2 ML VIAL IVP PRN (23:00)
[2021-08-07] MEDS ORDERED: ZOLPIDEM TARTRATE 5 MG TABLET PO PRN (23:00)
[2021-08-07] MEDS ORDERED: ACETAMINOPHEN 325 MG TABLET PO PRN (23:00)
[2021-08-07] MEDS ORDERED: MAG HYDROX/AL HYDROX/SIMETH 30 ML UDC PO PRN (23:00)
[2021-08-07] MEDS ORDERED: MAGNESIUM HYDROXIDE 30 ML UDC PO PRN (23:00)
[2021-08-07] MEDS ORDERED: MINOXIDIL (2.5MG) 2.5 MG TABLET PO PRN (23:30)
[2021-08-07] MEDS ORDERED: PHENYTOIN SODIUM IV 100 MG/2ML VIAL IV SCH (23:30)
[2021-08-08] MEDS ORDERED: IPRATROPIUM NEB FS 0.5 MG/2.5 ML AMPUL.NEB IH SCH
--- NOTE | 2021-08-08 00:13 | NUR ---
RT no neb tx given, pending pcr
--- NOTE | 2021-08-08 01:10 | NUR ---
TEMP 101.7 AUXILLARY MD AWARE. VERBAL ORDER OF 650MG TYLENNOL, NOTED AND CARRIED OUT.
--- NOTE | 2021-08-08 01:10 | NUR ---
STARTED BLOOD TRANSFUSION WITH SECOND RN, RONNA FOR VERIFICATION. INITIAL V/S 79HR 153/58 BP, 100% SP02, 14 RR. TEMP 101.7. PUMP SET TO 75ML/HR
--- NOTE | 2021-08-08 01:25 | NUR ---
15 MINUTE V/S 47HR, 14RR, 100% SPO2, 142/49, TEMP 101.3. INCREASED TO 100MLS/HR
[2021-08-08] MEDS ORDERED: ACETAMINOPHEN 325 MG TABLET MC ONE (01:30)
--- NOTE | 2021-08-08 01:53 | NUR ---
RECIEVED BED 119-1
--- NOTE | 2021-08-08 01:55 | NUR ---
30 MIN V/S CHECK: 71HR, 100%, 14RR, 123/49, 101.1 TEMP. INCREASED TO 120MLS/HR
--- NOTE | 2021-08-08 02:15 | NUR ---
GAVE REPORT TO NIMA PATE FOR OTIS
--- NOTE | 2021-08-08 02:25 | NUR ---
PT TRANSPORTED WITH RT VIS ACLS PROTOCOL
[2021-08-08 02:30] VITALS: BP 116/65
--- NOTE | 2021-08-08 02:30 | NUR ---
RN ADMITTING NOTE RECEIVED PATIENT FROM ER VIA GURNEY ACCOMPANIED BY 2 ER STAFF AND TRANSFERRED TO BED VIA 2 PERSON ASSIST. PT IS NON OBTUNDED, IN NO SIGN OF ACUTE DISTRESS, SATURATION AT 100% ON TRACH CONNECTED TO MECHANICAL VENTILATOR WITH PRESCRIBED SETTINGS:AC 14, TV 500, FIO2 30%, PEEP 5. COMPREHENSIVE PHYSICAL ASSESSMENT AND PATIENT CARE DONE. WOUNDS NOTED AT SACRUM, R ELBOW, AND R BIG TOE, REDNESS AT PERINEUM, PERIANAL AREA AND B HEELS, AND ECCHYMOSIS AT R ARM, WOUND CONSULT REQUESTED. NOTED IV LINE AT L HAND 20G, AND R HAND 22G, PATENT AND FLUSHING WELL, NO S/S OF INFECTION OR INFILTRATION NOTED WITH ONGOING BLOOD TRANSFUSION OF 1 UNIT PRBC STARTED FROM ER, NO TRANSFUSION REACTIONS NOTED, PER MODESTA HERRING PATIENT HAS TEMP OF 101.7 DEGREES CELSIUS PRIOR TO PRBC INFUSION, MD WAS AWARE AND HAS ORDERED TYLENOL 650 MG VIA GT. PROCTOR CATHETER CONNECTED TO URINE BAG IN PLACE, DRAINING TO A CLEAR, YELLOW OUTPUT, MINIMAL AMOUNT NOTED. RECTAL TUBE IN PLACE, DRAINING TO A SOFT, DARK BROWN OUTPUT. SAFETY MEASURES AND ISOLATION PRECAUTION IN PLACE, CALL LIGHT WITHIN REACH OF PATIENT, BED ON LOWEST POSITION, SIDE RAILS UP. WILL CONTINUE MONITOR AND ASSESS THROUGHOUT THE SHIFT. WILL CARRY OUT MD ORDERS ACCORDINGLY. OIL SPOT WASHER MADE AWARE.
--- NOTE | 2021-08-08 02:46 | NUR ---
RT pt transferred to floor with no complications. vent plugged in to red outlet. hob 30 degrees. ambu bag at bedside. spare trach at bedside. will continue to monitor.
[2021-08-08] MEDS ORDERED: CLONIDINE HCL 0.1 MG TABLET PO PRN (03:00)
[2021-08-08 04:00] VITALS: BP 147/61
[2021-08-08] MEDS: NEPRO 1,000 ML BOTTLE GT PRN (04:00)
[2021-08-08] MEDS ORDERED: AMLODIPINE BESYLATE 10 MG TABLET PO ONE (06:00)
--- NOTE | 2021-08-08 07:32 | NUR ---
RN NOTE TELEPHONE CALL TO PHARMACY REGARDING DILANTIN SCHEDULED FOR 2329 GIVEN AT 0352 PATIENT WAS TRANSFERRED TO UNIT LATE. SPOKE WITH TAL, STATED THEY WILL ADJUST THE TIME THE MEDICATION SHOULD BE GIVEN Q8H. Addendum: 08/08/21 at 0735 by RIO GOMEZ RN LU HERRING WAS ADVISED.
[2021-08-08] MEDS: IPRATROPIUM NEB FS 0.5 MG/2.5 ML AMPUL.NEB IH SCH ×3 (07:46→18:00)
[2021-08-08 08:00] VITALS: BP 161/52
--- NOTE | 2021-08-08 08:00 | NUR ---
RN Note: Pt received asleep, non verbal, open eyes to tactile stimuli. On vent-trac, settings tolerating well. No breathing distress noted. No s/s of pain & discomfort noted. Aspiration precautions observed. G-tube feeding running, tolerating well with no residual noted. Flexi-seal intact. F/C intact, with oliguric. Right chest wall HD cath I/D/C. IV site I/D/C, saline lock. Safety measures observed. Continue to monitor.
[2021-08-08] MEDS: SEVELAMER CARBONATE 800 MG TABLET PO SCH ×3 (08:35→17:41)
[2021-08-08] MEDS: CHLORHEXIDINE GLUCONATE 15 ML UDC MM SCH ×2 (08:35→17:55)
[2021-08-08] MEDS: LABETALOL HCL (100MG) 100 MG TABLET PO SCH ×2 (08:36→21:13)
[2021-08-08] MEDS: hydrALAZINE HCL 50 MG TABLET PO SCH ×3 (08:36→17:00)
[2021-08-08] MEDS: PANTOPRAZOLE 40 MG TABLET.DR PO SCH (08:37)
[2021-08-08] MEDS: CARVEDILOL 12.5 MG TABLET PO SCH ×2 (08:37→21:13)
[2021-08-08] MEDS: METOCLOPRAMIDE HCL 10 MG TABLET PO SCH ×3 (08:37→17:42)
[2021-08-08] MEDS: PHENOBARBITAL 30 MG TABLET PO SCH ×2 (08:37→17:42)
[2021-08-08] MEDS: ISOSORBIDE DINITRATE (20MG) 20 MG TABLET PO SCH ×3 (08:44→17:00)
[2021-08-08] MEDS: DAKINS QUARTER STRENGTH (0.125%) 480 ML BOTTLE TOP SCH (08:44)
[2021-08-08] MEDS: PROSOURCE / PROSTAT (PYXIS) 30 ML UDC GT SCH ×2 (08:45→17:55)
[2021-08-08] MEDS: DORZOLAMIDE OPTH 2% 10 ML BOTTLE OP SCH ×2 (08:46→17:42)
[2021-08-08] MEDS ORDERED: COLISTIMETHATE SODIUM 150 MG CBA VIAL IV SCH ×2 (09:00)
[2021-08-08] MEDS ORDERED: LINEZOLID 600 MG PO SCH (09:00)
[2021-08-08 09:56] LABS: BASOPHILS # (AUTO) 0.1 K/uL (0.0-0.2); BASOPHILS % (AUTO) 0.3 % (0.0-2.0); EOSINOPHILS % (AUTO) 0.4 % (0.0-6.0); HEMATOCRIT 23 % (33-45); HEMOGLOBIN 7.6 g/dL (11.5-14.8); LYMPHOCYTES # (AUTO) 1.4 K/uL (0.8-4.8); LYMPHOCYTES % (AUTO) 6.7 % (20.0-44.0); MEAN CORPUSCULAR HGB CONC 34 g/dl (31.0-36.0); MEAN CORPUSCULAR VOLUME 93 fL (82-100); MONOCYTES # (AUTO) 1.8 K/uL (0.1-1.30); MONOCYTES % (AUTO) 9.1 % (2.0-12.0); NEUTROPHILS % (AUTO) 83.5 % (43.0-81.0); PLATELET COUNT (AUTO) 348 K/uL (150-450); RED BLOOD CELL COUNT(AUTO) 2.44 MIL/uL (4.0-5.2); WHITE BLOOD COUNT (AUTO) 20.3 K/uL (4.3-11.0)
[2021-08-08] MEDS ORDERED: EPOETIN ALFA (4000 UNIT) 4,000 UNIT/ML VIAL IJ SCH (10:00)
[2021-08-08 10:34] LABS: CHOLESTEROL 96 mg/dL (<200); HDL CHOLESTEROL 21 mg/dL (40-60); LDL 28 mg/dL (0-99); TRIGLYCERIDES 146 mg/dL (30-150)
[2021-08-08 10:39] LABS: CALCIUM, SERUM 9.7 mg/dL (8.5-10.1); CARBON DIOXIDE 26 mmol/L (21-32); CHLORIDE 90 mmol/L (98-107); CREATININE 2.8 mg/dL (0.6-1.3); GLUCOSE 157 mg/dL (74-106); MAGNESIUM 2.8 mg/dL (1.8-2.4); PHOSPHORUS 2.2 mg/dL (2.5-4.9); POTASSIUM 3.1 mmol/L (3.5-5.1); SODIUM SERUM 128 mmol/L (136-145); UREA NITROGEN, BLOOD 69 mg/dL (7-18)
[2021-08-08 12:00] VITALS: BP 116/52
[2021-08-08] MEDS: PHENYTOIN SODIUM IV 100 MG/2ML VIAL IV SCH ×2 (13:21→21:14)
[2021-08-08] MEDS: EPOETIN ALFA-EPBX 4,000 UNIT/ML VIAL IV SCH (14:30)
[2021-08-08] MEDS: ACETAMINOPHEN 325 MG TABLET PO PRN (14:54)
[2021-08-08] MEDS ORDERED: EPOETIN ALFA (10,000 UNIT) 10,000 UNIT/ML VIAL IV ONE (15:00)
[2021-08-08] MEDS ORDERED: MEROPENEM 1 G in IV NS 0.9% 100 ML IV SCH (15:30)
[2021-08-08 16:00] VITALS: BP 122/53
[2021-08-08] MEDS ORDERED: EPOETIN ALFA-EPBX 2,000 UNIT/ML VIAL IV ONE (16:00)
[2021-08-08] MEDS ORDERED: VANCOMYCIN 1 GM in IV D5W 250 ML IV ONE (16:00)
[2021-08-08] MEDS ORDERED: VANCOMYCIN 500 MG in IV D5W 100 ML IV PRN (16:00)
[2021-08-08] MEDS: MEROPENEM 500 MG in IV NS 0.9% 50 ML IV SCH (16:28)
[2021-08-08] MEDS: AMLODIPINE BESYLATE 10 MG TABLET PO SCH (17:48)
--- NOTE | 2021-08-08 17:57 | NUR ---
RN Note: HTN medications not given for 1699, due to ongoing hemodialysis. BP 105/42.
--- NOTE | 2021-08-08 18:24 | NUR ---
RN Note: Rectal replaced with new rectal tube & bag.
--- NOTE | 2021-08-08 19:30 | NUR ---
RN OPENING NOTES: RECEIVED PT A/OX0 IN BED IN NO S/SX OF ACUTE DISTRESS AT THIS TIME. NO SOB NOTED. PATIENT'S BREATHING IS EVEN AND UNLABORED. PATIENT ON MECHANICAL VENT; SETTINGS PRESCRIBED; PT TOLERATED WELL. AMBU BAG AT BED SIDE ALARMS SET PER PROTOCOL AND AUDIBLE. VENT PLUGGED IN TO RED OUTLET. PT HAS G TUBE FLUSHING AND PATENT; SITE CLEAN DRY AND INTACT; NO RESIDUAL NOTED; CONNECTED TO GTUBE FEEDING OF NEPRO @40CC/HR;TOLERATES WELL. NOTED IV SITE ON L HAND # 20 AND R HAND #20; BOTH PATENT, INTACT AND FLUSHING WELL; NO S/S OF INFECTION OR INFILTRATION. PT ALSO HAS R SUBC. PEMACATH SECURED AND INTACT NO SIGNS OF INFECTION. PROCTOR CATH IN PLACE,NO URINE OUTPUT NOTED AT THE TIME OF RECEIVED. WITH FLEXISEAL SECURED AND INTACT DRAINING 50CC OF OUTPUT AT THE TIME OF RECEIVED. SAFETY MEASURES HAVE BEEN PROVIDED AND IMPLEMENTED. PATIENT BED ALARM IS ON. HEAD OF BED ELEVATED. BED IS LOCKED, IN LOWEST POSITION AND SIDE RAILS UP. CALL LIGHT WITHIN REACH OF THE PATIENT. APPLICABLE ISOLATION PRECAUTIONS IN PLACE. WILL CONTINUE TO MONITOR AND REASSESS FOR ANY CHANGES AND WILL CARRY OUT ANY ONGOING AND ACTIVE MD ORDER.
[2021-08-08 20:00] VITALS: BP 125/63
--- NOTE | 2021-08-08 20:08 | NUR ---
RECEIVED PT TRACH PORTEX 7 ON VENT WITH THE SETTINGS OF AC 14, VT 500,FIO2 30%. PEEP 5. PT IS AWAKE AND OBTUNDED .NO RESP DISTRESS NOTED AT THIS TIME.. PT TOLERATING VENT SETTINGS. VENT ALARMS SET AND AUDIBLE. AMBU BAG AT BEDSIDE. WILL CONTINUE TO MONITOR T/O SHIFT.
--- NOTE | 2021-08-08 20:08 | NUR ---
BREATHING TX NOT GIVEN DUE TO PENDING PCR COVID TEST RESULT. NIMA HUFF NOTIFIED. NO RESPIRATORY DISTRESS NOTED AT THIS TIME. SPO2 100%
[2021-08-08] MEDS: LATANOPROST EYE DROP 0.005% 2.5 ML BOTTLE OP SCH (21:33)
--- NOTE | 2021-08-08 22:45 | NUR ---
RN NOTES FAMILY CALLED (ART-[phone]) PROVIDED GENERAL UPDATES ; BASIC TX AND V/S. ADVISED TO CALL IN THE AM IF NEED SPECIFIC INFO FROM , FAMILY ACKNOWLEDGED. ADVISED THAT RN WILL GIVE A CALL IF THERE'S ANY SIGNIFICANT UPDATES OR CHANGES TO PT. ART ACKNOWLEDGED.
[2021-08-09] VITALS: BP 128/58
[2021-08-09] MEDS: ACETAMINOPHEN 325 MG TABLET PO PRN ×2 (00:14→16:53)
--- NOTE | 2021-08-09 00:15 | NUR ---
RN NOTES NOTED PT'S TEMP IS AT 100.1@0000; PRN MEDICATION GIVEN AND COOLING MEASURES RENDERED. ELEVATOR ERECTOR HELPER MADE AWARE. WILL CONTINUE TO MONITOR AND ASSESS THROUGHOUT THE SHIFT. Addendum: 08/09/21 at 0155 by CHAKA CRUZ RN @0130- PT'S TEMP AT 99.1. WILL CONTINUE COOLING MEASURES AND MONITOR FOR ANY CHANGES.
[2021-08-09 04:00] VITALS: BP 124/50
--- NOTE | 2021-08-09 04:00 | NUR ---
RN NOTES PATIENT REMAINED TO BE IN NO SIGNS OF ACUTE RESPIRATORY DISTRESS , VITAL SIGNS STABLE AT THIS TIME. REGULAR TURNING AND REPOSITIONING DONE Q2H AND SUCTIONING RENDERED.. AM PATIENT CARE DONE AND WOUND CARE. WILL CONTINUE TO MONITOR AND REASSESS FOR ANY CHANGES THROUGHOUT THE SHIFT.
[2021-08-09] MEDS: PHENYTOIN SODIUM IV 100 MG/2ML VIAL IV SCH ×3 (05:35→20:27)
--- NOTE | 2021-08-09 06:56 | NUR ---
RN CLOSING NOTE: PATIENT REMAINS IN ROOM IN NO SIGNS OF RESPIRATORY DISTRESS, PATIENT STILL ON MECH VENT; SETTINGS PRESCRIBED;;TOLERATING WELL SATURATING @ >95% SP02. SAFETY MEASURES IMPLEMENTED, BED IN LOWEST POSITION, LOCKED, SIDE RAILS UP, CALL LIGHT WITHIN REACH. ALL NEEDS AND ORDERS ADDRESSED DURING THE SHIFT. IV ACCESS MAINTAINED INTACT, SECURED AND FLUSHING WELL. ALL DUE MEDS GIVEN ORDERED & SCHEDULED ; PATIENT TOLERATED WELL. PATIENT KEPT CLEAN AND COMFORTABLE WITHIN THE SHIFT. PATIENT ENDORSED TO INCOMING SHIFT RN WITH STABLE VITAL SIGN AND FOR CONTINUITY OF CARE.
[2021-08-09] MEDS: IPRATROPIUM NEB FS 0.5 MG/2.5 ML AMPUL.NEB IH SCH ×4 (07:07→18:00)
[2021-08-09 07:22] LABS: BASOPHILS % (AUTO) 0.2 % (0.0-2.0); EOSINOPHILS % (AUTO) 0.5 % (0.0-6.0); HEMATOCRIT 24 % (33-45); HEMOGLOBIN 7.8 g/dL (11.5-14.8); LYMPHOCYTES # (AUTO) 1.3 K/uL (0.8-4.8); LYMPHOCYTES % (AUTO) 5.9 % (20.0-44.0); MEAN CORPUSCULAR HGB CONC 33 g/dl (31.0-36.0); MEAN CORPUSCULAR VOLUME 95 fL (82-100); MONOCYTES # (AUTO) 1.7 K/uL (0.1-1.30); MONOCYTES % (AUTO) 7.9 % (2.0-12.0); NEUTROPHILS # (AUTO) 18.3 K/uL (1.8-8.9); NEUTROPHILS % (AUTO) 85.5 % (43.0-81.0); PLATELET COUNT (AUTO) 363 K/uL (150-450); RED BLOOD CELL COUNT(AUTO) 2.49 MIL/uL (4.0-5.2); WHITE BLOOD COUNT (AUTO) 21.4 K/uL (4.3-11.0)
[2021-08-09 08:00] VITALS: BP 126/55
--- NOTE | 2021-08-09 08:00 | NUR ---
ZIPPER SETTER LOCKSTITCH NOTES PATIENT RECEIVED IN ROOM, WITH NO SIGNS OF RESPIRATORY DISTRESS, PATIENT STILL ON MECH VENT; SETTINGS PRESCRIBED; TOLERATING WELL SATURATING @ >96 % SP02. g-TUBE IN PLACE RUNNING 30 CC/HR NEPHRO. IV ACCESS MAINTAINED INTACT, SECURED AND FLUSHING WELL. PROCTOR ALSO PATENT AND IN PLACE WITH ANNA COLOR URINE, SAFETY MEASURES IMPLEMENTED, BED IN LOWEST POSITION AND LOCKED, SIDE RAILS UP, CALL LIGHT WITHIN REACH. WILL CONTINUE TO MONITOR
[2021-08-09 08:09] LABS: CALCIUM, SERUM 8.8 mg/dL (8.5-10.1); CARBON DIOXIDE 25 mmol/L (21-32); CHLORIDE 107 mmol/L (98-107); CREATININE 0.7 mg/dL (0.6-1.3); GLUCOSE 190 mg/dL (74-106); MAGNESIUM 1.9 mg/dL (1.8-2.4); PHOSPHORUS 2.7 mg/dL (2.5-4.9); POTASSIUM 3.4 mmol/L (3.5-5.1); SODIUM SERUM 140 mmol/L (136-145); UREA NITROGEN, BLOOD 15 mg/dL (7-18)
[2021-08-09 08:13] LABS: VANCOMYCIN,RANDOM 0 ug/ml (18-26)
[2021-08-09] MEDS: SEVELAMER CARBONATE 800 MG TABLET PO SCH ×3 (08:34→17:55)
[2021-08-09] MEDS: LABETALOL HCL (100MG) 100 MG TABLET PO SCH ×2 (08:35→20:27)
[2021-08-09] MEDS: ISOSORBIDE DINITRATE (20MG) 20 MG TABLET PO SCH ×3 (08:35→16:54)
[2021-08-09] MEDS: CARVEDILOL 12.5 MG TABLET PO SCH ×2 (08:36→20:28)
[2021-08-09] MEDS: PANTOPRAZOLE 40 MG TABLET.DR PO SCH (08:36)
[2021-08-09] MEDS: hydrALAZINE HCL 50 MG TABLET PO SCH ×2 (08:36→12:42)
[2021-08-09] MEDS: PHENOBARBITAL 30 MG TABLET PO SCH ×2 (08:37→16:54)
[2021-08-09] MEDS: CHLORHEXIDINE GLUCONATE 15 ML UDC MM SCH ×2 (08:38→16:54)
[2021-08-09] MEDS: METOCLOPRAMIDE HCL 10 MG TABLET PO SCH ×3 (08:50→17:55)
[2021-08-09] MEDS: PROSOURCE / PROSTAT (PYXIS) 30 ML UDC GT SCH ×2 (09:00→16:54)
[2021-08-09] MEDS: DORZOLAMIDE OPTH 2% 10 ML BOTTLE OP SCH ×2 (09:16→16:55)
[2021-08-09] MEDS: DAKINS QUARTER STRENGTH (0.125%) 480 ML BOTTLE TOP SCH (09:17)
[2021-08-09] MEDS: LATANOPROST EYE DROP 0.005% 2.5 ML BOTTLE OP SCH (09:17)
[2021-08-09] MEDS ORDERED: POTASSIUM CHLORIDE 20 MEQ TAB.PRT.SR PO SCH (09:30)
--- NOTE | 2021-08-09 10:34 | NUR ---
RN NOTES ROUND MADE, VITAL SIGNS STABLE, PT IS COMFORTABLE IN BED NO SIGNS OF DISTRESS AT THIS TIME, SPOKE WITH DAUGHTER AND INFORMED ABOUT PATIENT STATUS , WILL CONTINUE TO MONITOR
[2021-08-09] MEDS: NEPRO 1,000 ML BOTTLE GT PRN (11:59)
[2021-08-09 12:00] VITALS: BP 91/52
--- NOTE | 2021-08-09 12:00 | NUR ---
INSPECTOR RAW QUARTZ NOTES RIGHT HAND IV HL IS INTACT AND FLUSHING WELL WITH 3 ML OF NS, SPOKE WITH PHARMACY ABOUT DILANTIN DOSE 150 MG IV AND STATED IS SAFE TO GIVE DILANTIN, BP 111/45
--- NOTE | 2021-08-09 12:59 | NUR ---
SIMULATION EDUCATOR NOTES FLUSH AGAIN WELL HL ON THE RIGHT HAND AND GIVEN DILANTIN 150 MG OVER 3 MIN WILL MONITOR
--- NOTE | 2021-08-09 13:20 | NUR ---
LABORER SHAFT SINKING NOTES RIGHT HAND HL CHECKED AND FLUSHED AGAIN, NOTED HL IS LEAKING TRIED TO INSERT NEW IV LINE BUT PATIENT IS HARD STICK, PER PARMJIT NOWAK RN MUSIC MINISTER IS OK TO INSERT MIDLINE
--- NOTE | 2021-08-09 15:01 | NUR ---
CHURCH WORKER NOTES LEFT UPPER MIDLINE INSERTED WILL CONTINUE TO MONITOR
--- NOTE | 2021-08-09 15:25 | NUR ---
SMASHER NOTES ROUND MADE, MULTIPLE BRUISES NOTED ON LEFT ARM, GENTLE CARE PROVIDED, WOUND CONSULT PLACED
--- NOTE | 2021-08-09 15:33 | NUR ---
LONG TERM CARE PHLEBOTOMIST NOTES RECHECK BLOOD PRESSURE 125/55
[2021-08-09 16:00] VITALS: BP 129/55
--- NOTE | 2021-08-09 16:24 | NUR ---
rn tele note spoke with Bert gaines rn manpower development advisor notified that wbc 21.4 and also notified that earlier bp 91/52 stated that will adjust bp Meds also reported that bp [id number] ok to give isosorbide via g tube , notified that family wants to speak with him stated that spoke with son today , will cont to monitor
[2021-08-09] MEDS: MEROPENEM 500 MG in IV NS 0.9% 50 ML IV SCH (16:29)
[2021-08-09 17:16] LABS: BAND % (MANUAL) 1 % (0.0-5.0); LYMPHOCYTES % (MANUAL) 6 % (16-48); MONOCYTES % (MANUAL) 7 % (0-11.0); NEUTROPHILS % (MANUAL) 86 (42-76)
[2021-08-09] MEDS: AMLODIPINE BESYLATE 10 MG TABLET PO SCH (18:00)
--- NOTE | 2021-08-09 18:20 | NUR ---
manager telecom note patient has t 99.9 cooling measure given
--- NOTE | 2021-08-09 18:34 | NUR ---
RN CLOSING NOTE: PATIENT IS IN BED WITH NO SIGNS OF RESPIRATORY DISTRESS, REMAIN ON MECH VENT WITH SETTINGS PRESCRIBED, TOLERATING WELL SATURATING 100%. XIOMARA MIDLINE IN PLACE AND FLUSHING WELL, GENTLE CARE PROVIDED TO MULTIPLE BRUISING ON BOTH ARMS, ALL DUE MEDS GIVEN ORDERED & SCHEDULED, AMLODIPINE HOLD AT THIS TIME BECAUSE BP 99/34, RECTAL TUBE ALSO IN PLACE AND FLUSHING WELL, G TUBE RUNNING WELL WITH NO RESIDUAL NOTICED, TRACH INTER CANULA CHANGED, SUCTION DONE, ORAL CARE PERFORMED. PATIENT KEPT CLEAN AND COMFORTABLE WITHIN THE SHIFT. SAFETY MEASURES IMPLEMENTED, BED IN LOWEST POSITION, LOCKED, SIDE RAILS UP, CALL LIGHT WITHIN REACH. WILL ENDORSE TO INCOMING SHIFT RN
--- NOTE | 2021-08-09 19:49 | NUR ---
RN NOTE PATIENT OBTUNDED IN BED, OPENS EYES. ON TRACH TO VENT, TOLERATING SETTINGS WELL. NO S/S OF ACUTE RESPIRATORY DISTRESS. PATIENT COMFORTABLE, NO S/S OF DISCOMFORT. NOTED WITH FLEXISEAL AND PROCTOR CATH, PATENT AND DRAINING VIA GRAVITY. G-TUBE RUNNING NEPRO @40CC/HR, NO RESIDUAL NOTED. LEFT UPPER ARM MIDLINE PATENT AND INTACT. RIGHT SUB PERMACATH NOTED, DRESSING DRY AND INTACT. BED LOCKED AND IN LOWEST POSITION. CALL LIGHT WITHIN REACH. ALL NEEDS ANTICIPATED.
[2021-08-09 20:00] VITALS: BP 126/50
[2021-08-10] VITALS: BP 130/54
[2021-08-10 04:00] VITALS: BP 117/48
[2021-08-10] MEDS: PHENYTOIN SODIUM IV 100 MG/2ML VIAL IV SCH ×3 (04:37→20:30)
[2021-08-10] MEDS: IPRATROPIUM NEB FS 0.5 MG/2.5 ML AMPUL.NEB IH SCH ×4 (06:00→17:04)
[2021-08-10 06:46] LABS: BASOPHILS % (AUTO) 0.2 % (0.0-2.0); HEMATOCRIT 21 % (33-45); HEMOGLOBIN 7.1 g/dL (11.5-14.8); LYMPHOCYTES # (AUTO) 1.3 K/uL (0.8-4.8); LYMPHOCYTES % (AUTO) 8.1 % (20.0-44.0); MEAN CORPUSCULAR HGB CONC 33 g/dl (31.0-36.0); MEAN CORPUSCULAR VOLUME 94 fL (82-100); MONOCYTES # (AUTO) 1.3 K/uL (0.1-1.30); MONOCYTES % (AUTO) 8.4 % (2.0-12.0); NEUTROPHILS # (AUTO) 13.1 K/uL (1.8-8.9); NEUTROPHILS % (AUTO) 82.3 % (43.0-81.0); PLATELET COUNT (AUTO) 356 K/uL (150-450); RED BLOOD CELL COUNT(AUTO) 2.25 MIL/uL (4.0-5.2); WHITE BLOOD COUNT (AUTO) 15.9 K/uL (4.3-11.0)
--- NOTE | 2021-08-10 07:03 | NUR ---
RN NOTE PATIENT OBTUNDED IN BED, OPENS EYES. ON TRACH TO VENT, TOLERATING SETTINGS WELL. NO S/S OF ACUTE RESPIRATORY DISTRESS. FLEXISEAL OUTPUT 300CC AND PROCTOR CATH OUTPUT 200CC DARK ANNA URINE. G-TUBE RUNNING NEPRO @40CC/HR, NO RESIDUAL NOTED. LEFT UPPER ARM MIDLINE PATENT AND INTACT. RIGHT SUB PERMACATH NOTED, DRESSING DRY AND INTACT. BED LOCKED AND IN LOWEST POSITION. CALL LIGHT WITHIN REACH. TURNED AND REPOSITIONED Q2H. WILL ENDORSE TO AM SHIFT.
[2021-08-10 07:10] LABS: CALCIUM, SERUM 10.1 mg/dL (8.5-10.1); CARBON DIOXIDE 24 mmol/L (21-32); CHLORIDE 93 mmol/L (98-107); CREATININE 2.2 mg/dL (0.6-1.3); GLUCOSE 178 mg/dL (74-106); MAGNESIUM 2.6 mg/dL (1.8-2.4); POTASSIUM 3.2 mmol/L (3.5-5.1); SODIUM SERUM 131 mmol/L (136-145); UREA NITROGEN, BLOOD 56 mg/dL (7-18)
[2021-08-10 08:00] VITALS: BP 106/42
[2021-08-10] MEDS: METOCLOPRAMIDE HCL 10 MG TABLET PO SCH ×3 (08:00→17:41)
[2021-08-10] MEDS: SEVELAMER CARBONATE 800 MG TABLET PO SCH ×3 (08:00→17:41)
[2021-08-10] MEDS: CARVEDILOL 12.5 MG TABLET PO SCH ×2 (09:00→20:31)
[2021-08-10] MEDS: ISOSORBIDE DINITRATE (20MG) 20 MG TABLET PO SCH ×3 (09:00→17:41)
[2021-08-10] MEDS: LABETALOL HCL (100MG) 100 MG TABLET PO SCH ×2 (09:00→20:30)
--- NOTE | 2021-08-10 09:23 | NUR ---
WOUND CARE CONSULT: REVIEWED CHART, NURSING DOCUMENTATION AND PHOTOS WHICH INDICATE DRY WOUND TO RT GREAT TOE, LARGE STAGE 4 SACRAL ULCER AND WOUNDS TO RT ELBOW AND LEFT KNEE, PRESENT ON ADMISSION. DR CAREN MARTINEZ AND DR STEWART NOTIFIED OF SURGICAL AND DPM CONSULTS. RECOMMENDATIONS MADE FOR SKIN PROTECTION AND WOUND CARE. DISCUSSED WITH NURSING STAFF. PT IS ON [place] ISOFLEX LOW AIRLOSS BED. MD IN AGREEMENT WITH PLAN OF CARE.
[2021-08-10] MEDS ORDERED: NEUTRA PHOS 1 POWD.PACKET PO ONE (10:30)
[2021-08-10] MEDS: CHLORHEXIDINE GLUCONATE 15 ML UDC MM SCH ×2 (10:58→17:47)
[2021-08-10] MEDS: PHENOBARBITAL 30 MG TABLET PO SCH ×2 (11:02→17:41)
[2021-08-10] MEDS: PROSOURCE / PROSTAT (PYXIS) 30 ML UDC GT SCH ×2 (11:02→17:00)
[2021-08-10] MEDS: PANTOPRAZOLE 40 MG TABLET.DR PO SCH (11:02)
[2021-08-10] MEDS: DAKINS QUARTER STRENGTH (0.125%) 480 ML BOTTLE TOP SCH (11:03)
[2021-08-10] MEDS: DORZOLAMIDE OPTH 2% 10 ML BOTTLE OP SCH ×2 (11:03→17:52)
[2021-08-10] MEDS: POTASSIUM CL. PREMIX PERIPHER. 50 ML IV SCH ×3 (11:21→14:47)
--- NOTE | 2021-08-10 11:28 | NUR ---
RT HHN tx not given due to pending PCR. No SOB or respiratory distress noted.
[2021-08-10 12:00] VITALS: BP 106/35
[2021-08-10 16:00] VITALS: BP 133/49
[2021-08-10] MEDS: MEROPENEM 500 MG in IV NS 0.9% 50 ML IV SCH (17:40)
[2021-08-10] MEDS: AMLODIPINE BESYLATE 10 MG TABLET PO SCH (17:41)
--- NOTE | 2021-08-10 19:37 | NUR ---
CHANGE OF SHIFT REPORT PT RESTING COMFORTABLY IN BED WITH EYES CLOSED. NO S/S OR C/O PAIN OR DISTRESS NOTED. SIDE RAILS UPX2, CALL LIGHT LEFT WITHIN REACH. PT KEPT CLEAN, DRY AND COMFORTABLE. NO SIGNIFICANT CHANGES SINCE PREVIOUS SHIFT. WILL GIVE REPORT TO FREDDIE HERRING.
[2021-08-10 20:00] VITALS: BP 126/59
--- NOTE | 2021-08-10 20:07 | NUR ---
RN NOTE PATIENT OBTUNDED IN BED, OPENS EYES. ON TRACH TO VENT, TOLERATING SETTINGS WELL. NO S/S OF ACUTE RESPIRATORY DISTRESS. FLEXISEAL AND PROCTOR CATH INTACT, DRAINING VIA GRAVITY. G-TUBE RUNNING NEPRO @40CC/HR, NO RESIDUAL NOTED. LEFT UPPER ARM MIDLINE PATENT AND INTACT. RIGHT SUB PERMACATH NOTED, DRESSING DRY AND INTACT. TURNED AND REPOSITIONED. BED LOCKED AND IN LOWEST POSITION. CALL LIGHT WITHIN REACH.
[2021-08-10] MEDS: ACETAMINOPHEN 325 MG TABLET PO PRN (20:30)
[2021-08-10] MEDS: LATANOPROST EYE DROP 0.005% 2.5 ML BOTTLE OP SCH (22:29)
[2021-08-11] VITALS: BP 122/55
--- NOTE | 2021-08-11 02:01 | NUR ---
RT' HHN TREATMENT WAS NOT GIVEN DUE TO PENDING PCR RESULT. WI
--- NOTE | 2021-08-11 02:03 | NUR ---
RT HHN TREATMENT WAS NOT GIVEN DUE TP PENDING PCR RESULT. Addendum: 08/11/21 at 0204 by RASHMI ZELAYA RT Amended: Links added.
[2021-08-11] MEDS: NEPRO 1,000 ML BOTTLE GT PRN (03:41)
[2021-08-11 04:00] VITALS: BP 117/53
[2021-08-11] MEDS: PHENYTOIN SODIUM IV 100 MG/2ML VIAL IV SCH ×3 (04:39→22:02)
[2021-08-11] MEDS: IPRATROPIUM NEB FS 0.5 MG/2.5 ML AMPUL.NEB IH SCH ×4 (06:00→20:54)
--- NOTE | 2021-08-11 07:02 | NUR ---
RN NOTE PATIENT OBTUNDED IN BED, OPENS EYES. ON TRACH TO VENT, TOLERATING SETTINGS WELL. NO S/S OF ACUTE RESPIRATORY DISTRESS. FLEXISEAL 200CC OUTPUT AND PROCTOR CATH 25CC. G-TUBE RUNNING NEPRO @40CC/HR, NO RESIDUAL NOTED. LEFT UPPER ARM MIDLINE PATENT AND INTACT. RIGHT SUB PERMACATH NOTED, DRESSING DRY AND INTACT. TURNED AND REPOSITIONED. TOLERATED BED BATH WELL. BED LOCKED AND IN LOWEST POSITION. CALL LIGHT WITHIN REACH. WILL ENDORSE TO AM SHIFT.
[2021-08-11 07:23] LABS: CALCIUM, SERUM 10.4 mg/dL (8.5-10.1); CARBON DIOXIDE 22 mmol/L (21-32); CHLORIDE 97 mmol/L (98-107); CREATININE 1.6 mg/dL (0.6-1.3); GLUCOSE 155 mg/dL (74-106); MAGNESIUM 2.6 mg/dL (1.8-2.4); PHOSPHORUS 2.7 mg/dL (2.5-4.9); POTASSIUM 4.9 mmol/L (3.5-5.1); SODIUM SERUM 131 mmol/L (136-145); UREA NITROGEN, BLOOD 44 mg/dL (7-18)
--- NOTE | 2021-08-11 07:45 | NUR ---
RN OPENING NOTES Patient seen comfortably lying in bed, no apparent distress noted, respirations even and unlabored, no SOB, no grimacing. Call light left within reach, safety precautions in place, brakes locked, side rails up X 2, will monitor closely for any changes.
[2021-08-11 08:00] VITALS: BP 119/50
[2021-08-11] MEDS: PHENOBARBITAL 30 MG TABLET PO SCH ×2 (09:38→17:23)
[2021-08-11] MEDS: SEVELAMER CARBONATE 800 MG TABLET PO SCH ×3 (09:38→17:23)
[2021-08-11] MEDS: CHLORHEXIDINE GLUCONATE 15 ML UDC MM SCH ×2 (09:38→17:23)
[2021-08-11] MEDS: PANTOPRAZOLE 40 MG TABLET.DR PO SCH (09:38)
[2021-08-11] MEDS: METOCLOPRAMIDE HCL 10 MG TABLET PO SCH ×3 (09:38→17:23)
[2021-08-11] MEDS: ISOSORBIDE DINITRATE (20MG) 20 MG TABLET PO SCH ×3 (09:39→17:00)
[2021-08-11] MEDS: CARVEDILOL 12.5 MG TABLET PO SCH ×2 (09:39→22:01)
[2021-08-11] MEDS: LABETALOL HCL (100MG) 100 MG TABLET PO SCH ×2 (09:39→22:01)
[2021-08-11] MEDS: DAKINS QUARTER STRENGTH (0.125%) 480 ML BOTTLE TOP SCH (09:50)
[2021-08-11] MEDS: DORZOLAMIDE OPTH 2% 10 ML BOTTLE OP SCH ×2 (09:50→19:12)
[2021-08-11] MEDS: PROSOURCE / PROSTAT (PYXIS) 30 ML UDC GT SCH ×2 (09:51→17:23)
[2021-08-11 11:35] LABS: BASOPHILS % (AUTO) 0.2 % (0.0-2.0); EOSINOPHILS % (AUTO) 1.2 % (0.0-6.0); HEMATOCRIT 22 % (33-45); HEMOGLOBIN 7.3 g/dL (11.5-14.8); LYMPHOCYTES # (AUTO) 1.2 K/uL (0.8-4.8); LYMPHOCYTES % (AUTO) 7.3 % (20.0-44.0); MEAN CORPUSCULAR HGB CONC 33 g/dl (31.0-36.0); MEAN CORPUSCULAR VOLUME 96 fL (82-100); MONOCYTES # (AUTO) 1.4 K/uL (0.1-1.30); MONOCYTES % (AUTO) 8.9 % (2.0-12.0); NEUTROPHILS # (AUTO) 13.2 K/uL (1.8-8.9); NEUTROPHILS % (AUTO) 82.4 % (43.0-81.0); PLATELET COUNT (AUTO) 399 K/uL (150-450); RED BLOOD CELL COUNT(AUTO) 2.32 MIL/uL (4.0-5.2); WHITE BLOOD COUNT (AUTO) 16.1 K/uL (4.3-11.0)
[2021-08-11 12:00] VITALS: BP 116/54
[2021-08-11 14:54] LABS: LYMPHOCYTES % (MANUAL) 4 % (16-48); MONOCYTES % (MANUAL) 4 % (0-11.0); NEUTROPHILS % (MANUAL) 92 (42-76)
[2021-08-11 16:00] VITALS: BP 107/47
[2021-08-11] MEDS: EPOETIN ALFA-EPBX 4,000 UNIT/ML VIAL IV SCH (16:16)
[2021-08-11] MEDS: MEROPENEM 500 MG in IV NS 0.9% 50 ML IV SCH (17:23)
[2021-08-11] MEDS: AMLODIPINE BESYLATE 10 MG TABLET PO SCH (18:00)
--- NOTE | 2021-08-11 18:36 | NUR ---
RN CLOSING NOTES Patient in bed, responsive to verbal and tactile stimuli, no apparent distress noted, no SOB, respirations even and unlabored, no grimacing. Due medications given via gtube per MD order, tolerating well. Aspiration and seizure precautions observed, frequent visual checks rendered, frequent repositioning done, all needs anticipated, kept clean and dry, call light left within reach, safety precautions in place, brakes locked, side rails up X 2, will endorse to next shift for continuity of care.
--- NOTE | 2021-08-11 19:30 | NUR ---
RN NOTE RECEIVED PT IN BED. WITH DAUGHTER AT BEDSIDE. PT WITH TRACH CONNECTED TO VENT, TOLERATING SETTINGS WITH O2SAT AT 100%. NO S/SX OF DISTRESS. GT PATENT AND IN PLACA, ON GT FEEDING OF NEPRO AT 40ML/HR. NO RESIDUALS NOTED. HOB ELEVATED. ON TELE MONITORING SHOWS SR WITH HR 70S. NO SIGNS OF PAIN NOTED. FLEXISEAL IN PLACE, WITH PROCTOR IN PLACE, NO OUTPUT NOTED AT THIS TIME, WILL CONTINUE TO MONITOR.
[2021-08-11 20:00] VITALS: BP 113/34
[2021-08-11] MEDS: LATANOPROST EYE DROP 0.005% 2.5 ML BOTTLE OP SCH (22:52)
[2021-08-12] VITALS (10 sets, daily range): BP systolic 108–139; BP diastolic 30–62
[2021-08-12] MEDS: IPRATROPIUM NEB FS 0.5 MG/2.5 ML AMPUL.NEB IH SCH ×4 (01:10→20:06)
[2021-08-12] MEDS: PHENYTOIN SODIUM IV 100 MG/2ML VIAL IV SCH ×3 (05:42→22:14)
[2021-08-12] MEDS: NEPRO 1,000 ML BOTTLE GT PRN (05:42)
--- NOTE | 2021-08-12 07:15 | NUR ---
RN NOTE PT REMAINS IN BED. NOT IN ANY DISTRESS. TOLERATES VENT SETTINGS. O2 SAT AT 100%. TOLERATES GT FEEDING AT 40ML/HR. KEPT HOB ELEVATED NO RESIDUALS NOTED. MIDLINE REMAIN PATENT AND INTACT, RCHEST HD CATH INTACT. NO URINE OUTPUT. FLEXISEAL WITH BM. PT WILL HAVE THORACENTESIS TODAY AND HD. ENDORSED TO NEXT SHIFT NURSE FOR OTIS,.
[2021-08-12 07:35] LABS: BASOPHILS % (AUTO) 0.3 % (0.0-2.0); EOSINOPHILS % (AUTO) 1.3 % (0.0-6.0); HEMATOCRIT 21 % (33-45); LYMPHOCYTES # (AUTO) 1.6 K/uL (0.8-4.8); LYMPHOCYTES % (AUTO) 9.2 % (20.0-44.0); MEAN CORPUSCULAR HGB CONC 33 g/dl (31.0-36.0); MEAN CORPUSCULAR VOLUME 96 fL (82-100); MONOCYTES # (AUTO) 1.5 K/uL (0.1-1.30); MONOCYTES % (AUTO) 8.5 % (2.0-12.0); NEUTROPHILS # (AUTO) 13.9 K/uL (1.8-8.9); NEUTROPHILS % (AUTO) 80.7 % (43.0-81.0); PLATELET COUNT (AUTO) 421 K/uL (150-450); RED BLOOD CELL COUNT(AUTO) 2.21 MIL/uL (4.0-5.2); WHITE BLOOD COUNT (AUTO) 17.2 K/uL (4.3-11.0)
--- NOTE | 2021-08-12 07:35 | NUR ---
BALLOON MAKER OPENING NOTE RECEIVED PT IN BED OBTUNDED ON MECHANICAL VENTILATOR P#7, AC 14, TB 500, AND PEEP 5 WITH O2 SATURATION OF 100%. PT SHOWING NO S/SX OF ACUTE RESPIRATORY DISTRESS AT THIS TIME. PT IS RECEIVING NEPRO G-TUBE FEEDING AT 40ML/HR. PT HAS A XIOMARA MIDLINE FLUSHED, PATENT WITH DRESSING IN TACT, AND A RIGHT SUBCLAVIAN HD CATHETER. PT HAS A PROCTOR AND RECTAL TUBE. SAFETY MEASURES IN PLACE WITH BED IN LOWEST LOCKED POSITION, CALL LIGHT WITHIN REACH AND CLINICAL ALARMS SET TO THE PRESCRIBED SETTINGS.
[2021-08-12 07:48] LABS: HEMOGLOBIN 6.9 g/dL (11.5-14.8)
--- NOTE | 2021-08-12 07:51 | NUR ---
RN NOTE RECEIVED CRITICAL LAB VALUE, HEMOGLOBIN 6.9. MD NOTIFIED.
[2021-08-12] MEDS: METOCLOPRAMIDE HCL 10 MG TABLET PO SCH ×3 (08:17→17:43)
[2021-08-12] MEDS: SEVELAMER CARBONATE 800 MG TABLET PO SCH ×3 (08:17→17:43)
[2021-08-12] MEDS: DORZOLAMIDE OPTH 2% 10 ML BOTTLE OP SCH ×2 (08:17→17:47)
[2021-08-12] MEDS: CHLORHEXIDINE GLUCONATE 15 ML UDC MM SCH ×2 (08:17→17:43)
[2021-08-12] MEDS: PANTOPRAZOLE 40 MG TABLET.DR PO SCH (08:17)
[2021-08-12] MEDS: LABETALOL HCL (100MG) 100 MG TABLET PO SCH ×3 (08:18→22:16)
[2021-08-12] MEDS: CARVEDILOL 12.5 MG TABLET PO SCH ×3 (08:18→22:17)
[2021-08-12] MEDS: PHENOBARBITAL 30 MG TABLET PO SCH ×2 (08:18→17:43)
[2021-08-12] MEDS: ISOSORBIDE DINITRATE (20MG) 20 MG TABLET PO SCH ×4 (08:19→17:00)
[2021-08-12] MEDS: PROSOURCE / PROSTAT (PYXIS) 30 ML UDC GT SCH ×2 (08:20→17:47)
[2021-08-12] MEDS: DAKINS QUARTER STRENGTH (0.125%) 480 ML BOTTLE TOP SCH (08:20)
[2021-08-12 09:37] LABS: CALCIUM, SERUM 10.5 mg/dL (8.5-10.1); CARBON DIOXIDE 22 mmol/L (21-32); CHLORIDE 94 mmol/L (98-107); CREATININE 2.1 mg/dL (0.6-1.3); GLUCOSE 121 mg/dL (74-106); POTASSIUM 5.1 mmol/L (3.5-5.1); SODIUM SERUM 130 mmol/L (136-145); UREA NITROGEN, BLOOD 68 mg/dL (7-18)
[2021-08-12 11:35] LABS: LYMPHOCYTES % (MANUAL) 11 % (16-48); METAMYELOCYTES % 1 % (0-0); MONOCYTES % (MANUAL) 8 % (0-11.0); NEUTROPHILS % (MANUAL) 80 (42-76)
[2021-08-12] MEDS ORDERED: DEXTROSE 50%-WATER 50 ML DISP.SYRIN IV PRN (14:00)
[2021-08-12] MEDS: BLOOD SUGAR DIAGNOSTIC 1 EACH STRIP IN SCH ×2 (17:43→23:36)
[2021-08-12] MEDS: MEROPENEM 500 MG in IV NS 0.9% 50 ML IV SCH (17:43)
[2021-08-12] MEDS: AMLODIPINE BESYLATE 10 MG TABLET PO SCH (17:44)
--- NOTE | 2021-08-12 19:00 | NUR ---
TAPPER HELPER CLOSING NOTE PT S/P THORACENTESIS, WITH 30ML REMOVED AND SENT TO THE LAB. PT HAS NO EVIDENCE OF BLEEDING OR S/SX OF RESPIRATORY DISTRESS. PT RECEIVED HEMODIALYSIS WITH 1700ML FLUID REMOVED. PT RECEIVE 1 UNIT PRBC DURING DIALYSIS. DAUGHTER AT THE BEDSIDE AND KEPT UP TO DATE WITH PLAN OF CARE. PT TURNED Q2H PER PROTOCOL AND PT KEPT CLEAN AND DRY. SAFETY MEASURES IN PLACE WITH BED IN LOWEST LOCKED POSITION, CALL LIGHT WITHIN REACH AND SIDE RAILS UP X3. WILL ENDORSE TO NEXT SHIFT FOR CONTINUITY OF CARE.
--- NOTE | 2021-08-12 19:30 | NUR ---
RN OPENING NOTE RECEIVED PATIENT IN BED, OBTUNDED. ON MECHANICAL VENT. PORTEX#7, AC 14, TV 500 FIO2 30%, PEEP 5. RESPIRATIONS ARE EVEN AND UNLABORED. NO S/S SOB. NO S/S PAIN. EXTERNAL TELE MONITOR READS SINUS RHYTHM. IN NO APPARENT DISTRESS. IV ACCESS IN XIOMARA MIDLINE SALINE LOCKED. PROCTOR CATHETER IS PRESENT, DRAINING TO GRAVITY. GTUBE PRESENT, NO RESIDUAL, RUNNING NEPRO@40ML/R. FLEXISEAL PRESENT. BED IS LOW AND LOCKED, HOB ELEVATED IN HIGH FOWLERS, SIDE RIALS UP X2. DAUGHTER AT BEDSIDE.
[2021-08-12] MEDS: LATANOPROST EYE DROP 0.005% 2.5 ML BOTTLE OP SCH (22:25)
[2021-08-12] MEDS: INSULIN REGULAR, HUMAN 100 UNIT/ML 3 ML VIAL SQ PRN (23:40)
[2021-08-13] VITALS (7 sets, daily range): BP systolic 122–165; BP diastolic 35–75
[2021-08-13] MEDS: IPRATROPIUM NEB FS 0.5 MG/2.5 ML AMPUL.NEB IH SCH ×4 (01:03→20:03)
[2021-08-13] MEDS: BLOOD SUGAR DIAGNOSTIC 1 EACH STRIP IN SCH ×3 (05:29→17:55)
[2021-08-13] MEDS: PHENYTOIN SODIUM IV 100 MG/2ML VIAL IV SCH ×3 (05:29→21:31)
[2021-08-13] MEDS: INSULIN REGULAR, HUMAN 100 UNIT/ML 3 ML VIAL SQ PRN ×2 (05:38→18:26)
--- NOTE | 2021-08-13 06:25 | NUR ---
RN CLOSING NOTE PATIENT RESTING IN BED, OBTUNDED. REMAINS ON MECHANICAL VENT. NO CHANGES IN SETTINGS. NO RESP DISTRESS. NO S/S PAIN. TELE MONITOR IS SINUS RHYTHM. NO DISTRESS. IV ACCESS IN XIOMARA MIDLINE SALINE LOCKED. PROCTOR CATHETER, DRAINING TO GRAVITY, NO OUTPUT. GTUBE RUNNING NEPRO@40ML/R. FLEXISEAL NO OUTPUT. BED REMAINS LOW AND LOCKED, HOB ELEVATED IN HIGH FOWLERS, SIDE RIALS UP X2. WILL ENDORSE TO ONCOMING SHIFT.
[2021-08-13 07:08] LABS: BASOPHILS % (AUTO) 0.3 % (0.0-2.0); EOSINOPHILS % (AUTO) 1.3 % (0.0-6.0); HEMATOCRIT 27 % (33-45); HEMOGLOBIN 8.8 g/dL (11.5-14.8); LYMPHOCYTES # (AUTO) 1.5 K/uL (0.8-4.8); LYMPHOCYTES % (AUTO) 9.5 % (20.0-44.0); MEAN CORPUSCULAR HGB CONC 33 g/dl (31.0-36.0); MEAN CORPUSCULAR VOLUME 95 fL (82-100); MONOCYTES # (AUTO) 1.4 K/uL (0.1-1.30); MONOCYTES % (AUTO) 9.1 % (2.0-12.0); NEUTROPHILS # (AUTO) 12.4 K/uL (1.8-8.9); NEUTROPHILS % (AUTO) 79.8 % (43.0-81.0); PLATELET COUNT (AUTO) 422 K/uL (150-450); RED BLOOD CELL COUNT(AUTO) 2.81 MIL/uL (4.0-5.2); WHITE BLOOD COUNT (AUTO) 15.6 K/uL (4.3-11.0)
[2021-08-13 07:16] LABS: CARBON DIOXIDE 25 mmol/L (21-32); CHLORIDE 97 mmol/L (98-107); CREATININE 1.6 mg/dL (0.6-1.3); GLUCOSE 126 mg/dL (74-106); POTASSIUM 4.1 mmol/L (3.5-5.1); SODIUM SERUM 132 mmol/L (136-145); UREA NITROGEN, BLOOD 47 mg/dL (7-18)
[2021-08-13] MEDS: PANTOPRAZOLE 40 MG TABLET.DR PO SCH (08:29)
[2021-08-13] MEDS: SEVELAMER CARBONATE 800 MG TABLET PO SCH ×3 (08:31→17:56)
[2021-08-13] MEDS: METOCLOPRAMIDE HCL 10 MG TABLET PO SCH ×3 (08:31→17:55)
[2021-08-13] MEDS: LABETALOL HCL (100MG) 100 MG TABLET PO SCH ×2 (08:32→21:30)
[2021-08-13] MEDS: ISOSORBIDE DINITRATE (20MG) 20 MG TABLET PO SCH ×3 (08:32→16:27)
[2021-08-13] MEDS: PHENOBARBITAL 30 MG TABLET PO SCH ×2 (08:33→16:27)
[2021-08-13] MEDS: CARVEDILOL 12.5 MG TABLET PO SCH ×2 (08:33→21:31)
[2021-08-13] MEDS: CHLORHEXIDINE GLUCONATE 15 ML UDC MM SCH ×2 (08:33→16:27)
[2021-08-13] MEDS: PROSOURCE / PROSTAT (PYXIS) 30 ML UDC GT SCH ×2 (08:40→16:32)
[2021-08-13] MEDS: DORZOLAMIDE OPTH 2% 10 ML BOTTLE OP SCH ×2 (08:41→16:33)
[2021-08-13] MEDS: DAKINS QUARTER STRENGTH (0.125%) 480 ML BOTTLE TOP SCH (08:42)
[2021-08-13] MEDS: ACETAMINOPHEN 325 MG TABLET PO PRN (10:14)
--- NOTE | 2021-08-13 10:24 | NUR ---
RN NOTE PT HAD 99.5 TEMP. GAVE PRN TYLENOL AND APPLIED ICE PACKS TO BOTH AXILLA.
[2021-08-13] MEDS: MEROPENEM 500 MG in IV NS 0.9% 50 ML IV SCH (16:30)
[2021-08-13] MEDS: NEPRO 1,000 ML BOTTLE GT PRN (16:33)
[2021-08-13] MEDS: EPOETIN ALFA-EPBX 4,000 UNIT/ML VIAL IV SCH (16:45)
[2021-08-13] MEDS: AMLODIPINE BESYLATE 10 MG TABLET PO SCH (17:55)
--- NOTE | 2021-08-13 18:51 | NUR ---
RN CLOSING NOTE NO NOTABLE CHANGES DURING SHIFT. PT IS ON A VENT AT PRESCRIBED SETTINGS WITH NO S/SX OF ACUTE RESPIRATORY DISTRESS. PT HAS A XIOMARA MIDLINE SALINE LOCK, FLUSHED, PATENT WITH DRESSING IN TACT. PT HAS NEPRO RUNNING @40ML/HR. FAMILY AT BEDSIDE, AND KEPT UP TO DATE WITH PLAN OF CARE. SAFETY MEASURES IN PLACE WITH BED IN LOWEST LOCKED POSITION, CALL LIGHT WITHIN REACH AND ALL NEEDS ATTENDED AT THIS TIME.
--- NOTE | 2021-08-13 19:35 | NUR ---
RN NOTE PT RECEIVED IN BED. FAMILY AT BEDSIDE. PT IS TRACH/VENT. TOLERATING VENT SETTINGS WELL WITH OXYGEN SATURATION 100%. PT IS OBTUNDED, NON-VERBAL. IV ACCESS NOTED ON LEFT UPPER ARM MIDLINE. LINE FLUSHED, PATENT, AND INTACT WITH NO SIGNS OF INFILTRATION. PROCTOR CATH NOTED. FLEXI SEAL NOTED. G-TUBE RUNNING NEPRO AT 40 ML/HR. NO RESIDUAL NOTED. ALL SAFETY MEASURES IMPLEMENTED. BED ALARM ON. BED LOCKED AND IN LOWEST POSITION. SIDE RAILS UP. WILL CONTINUE TO MONITOR AND ASSESS FOR ANY CHANGES DURING SHIFT.
[2021-08-13] MEDS: LATANOPROST EYE DROP 0.005% 2.5 ML BOTTLE OP SCH (21:32)
--- NOTE | 2021-08-13 22:25 | NUR ---
SCARF AND ANNEAL OPERATORHELP DESK OPERATOR NOTES PATIENT CAME IN AT THIS TIME VIA HOSPITAL BED. WITH TRACH AND VENT PATIENT IS OBTUNDED. NO S/S OF APPARENT DISTRESS. NOT EXHIBITING PAIN VIA FLACC. PATIENT HAS G-TUBE NOTED, RUNNING NEPRO AT 40ML/HR. PROCTOR CATHETER HAS NO NOTED OUTPUT AT THIS TIME, FLEXISEAL NOTED, DRAINING WELL.PATIENT HAS L. UA MIDLINE, NO IV FLUIDS RUNNING AT THIS TIME AND R. SUBCLAVIAN HD CATH NOTED IN PLACE. TELE MONITOR READING NSR AT 73. PATIENT NOTED TO HAVE BILA. ARM WOUNDS/DISCOLORATIONS. V/S FOLLOWS: 129/55, HR-75, RESP- 17 BPM, T- 98.3, AND SATURATION 100%. WILL CONTINUE WITH THE PLAN OF CARE.
[2021-08-14] MEDS: BLOOD SUGAR DIAGNOSTIC 1 EACH STRIP IN SCH ×4 (00:08→17:58)
[2021-08-14] MEDS: INSULIN REGULAR, HUMAN 100 UNIT/ML 3 ML VIAL SQ PRN ×3 (00:08→18:00)
--- NOTE | 2021-08-14 00:09 | NUR ---
ACADEMIC ADMINISTRATOR NOTE BS 122. NO COVERAGE GIVEN.
[2021-08-14] MEDS: IPRATROPIUM NEB FS 0.5 MG/2.5 ML AMPUL.NEB IH SCH ×4 (01:42→19:30)
[2021-08-14 04:07] VITALS: BP 131/65
[2021-08-14] MEDS: PHENYTOIN SODIUM IV 100 MG/2ML VIAL IV SCH ×3 (05:13→21:01)
--- NOTE | 2021-08-14 05:13 | NUR ---
supervisor telephone clerks note Phenytoin IV pushed over 3 minutes.
--- NOTE | 2021-08-14 07:15 | NUR ---
APICULTURE TEACHER OPENING NOTES RECEIVED PT IN BED LYING AT MODERATE HIGH BACK REST POSITION IN NO ACUTE SIGNS OF DISTRESS. PT IS OBTUNDED AND RESPONSIVE TO PAINFUL STIMULI. ON TRACH PORTEX # 7 CONNECTED TO MECHANICAL VENTILATOR AT SETTINGS OF AC TV 500, R 14, FI02 30% AND PEEP 5, SP02 100%. TELE-MONITOR SHOWS NSR WITH HR ON THE 80'S. G-TUBE FEEDING OF NEPRO AT 40ML/HR IN PROGRESS, TOLERATING WELL. ASPIRATION PRECAUTIONS MAINTAINED. XIOMARA MIDLINE INTACT, FLUSHED AND PATENT. RIGHT SUBCLAVIAN HD CATHETER IN PLACE WITH DRESSING C/D/I. PROCTOR IN PLACED WITH NO URINE OUTPUT NOTED AT THIS TIME. RECTAL FLEXI SEAL TUBE IN PLACE WITH BROWNISH WATERY STOOL NOTED. SAFETY MEASURES IN PLACE: BED IN LOWEST LOCKED POSITION, S/R UP X3 AND CALL LIGHT WITHIN REACH. WILL CONTINUE TO MONITOR PT ACCORDINGLY.
--- NOTE | 2021-08-14 07:23 | NUR ---
LEATHER SPLITTER CLOSING PATIENT IN BED. OBTUNDED. NO S/S OF APPARENT DISTRESS -- VENT DEPENDENT. NOT EXHIBITING PAIN VIA FLACC. TELE MONITOR READING NSR. ALL NEEDS ATTENDED. PROCTOR CATHETER HAS NO OUTPUT. FLEXISEAL HAS 100 ML OUTPUT. ALL SCHEDULED MEDICATION ADMINISTERED. NO IV FLUIDS RUNNING AT THIS TIME. SAFETY KEPT IN PLACE THE WHOLE SHIFT. REPORT GIVEN TO JOVAN FOR THE CONTINUITY OF CARE.
[2021-08-14 07:27] LABS: CALCIUM, SERUM 9.9 mg/dL (8.5-10.1); CARBON DIOXIDE 23 mmol/L (21-32); CHLORIDE 95 mmol/L (98-107); CREATININE 2.3 mg/dL (0.6-1.3); GLUCOSE 127 mg/dL (74-106); POTASSIUM 4.8 mmol/L (3.5-5.1); SODIUM SERUM 131 mmol/L (136-145); UREA NITROGEN, BLOOD 73 mg/dL (7-18)
[2021-08-14] MEDS: SEVELAMER CARBONATE 800 MG TABLET PO SCH ×3 (08:44→17:45)
[2021-08-14] MEDS: PANTOPRAZOLE 40 MG TABLET.DR PO SCH (08:44)
[2021-08-14] MEDS: METOCLOPRAMIDE HCL 10 MG TABLET PO SCH ×3 (08:44→17:45)
[2021-08-14] MEDS: PHENOBARBITAL 30 MG TABLET PO SCH ×2 (08:45→17:45)
[2021-08-14] MEDS: CHLORHEXIDINE GLUCONATE 15 ML UDC MM SCH ×2 (08:45→17:45)
[2021-08-14 08:56] VITALS: BP 90/40
[2021-08-14] MEDS: CARVEDILOL 12.5 MG TABLET PO SCH ×2 (09:00→21:00)
[2021-08-14] MEDS: ISOSORBIDE DINITRATE (20MG) 20 MG TABLET PO SCH ×3 (09:00→17:00)
[2021-08-14] MEDS: LABETALOL HCL (100MG) 100 MG TABLET PO SCH ×2 (09:00→21:00)
[2021-08-14] MEDS: DAKINS QUARTER STRENGTH (0.125%) 480 ML BOTTLE TOP SCH (09:34)
[2021-08-14] MEDS: DORZOLAMIDE OPTH 2% 10 ML BOTTLE OP SCH ×2 (09:34→17:56)
[2021-08-14] MEDS: PROSOURCE / PROSTAT (PYXIS) 30 ML UDC GT SCH ×2 (09:44→17:45)
--- NOTE | 2021-08-14 12:00 | NUR ---
RN NOTES PATIENT STARTED ON HEMODIALYSIS BY NIMA SOTO.
[2021-08-14] MEDS: ACETAMINOPHEN 325 MG TABLET PO PRN (12:51)
[2021-08-14] MEDS ORDERED: MISCELLANEOUS MED 1 EA EA XX ONE ×2 (13:00→14:30)
[2021-08-14] MEDS ORDERED: TOBRAMYCIN 120 MG in IV D5W 100 ML IV ONE (14:00)
--- NOTE | 2021-08-14 14:47 | NUR ---
RN NOTES HEMODIALYSIS DONE TODAY BY PIA HD NURSE VIA RCW PERMACATH WITH ZERO OUTPUT REPORTED. PT TOLERATED PROCEDURE. RIGHT CHEST WALL PERMACATH IN PLACE WITH NO ACTIVE BLEEDING NOTED. DRESSING C/D/I. WILL CONTINUE TO MONITOR.
[2021-08-14] MEDS: CEFTAZIDIME/AVIBACTAM 0.94 GM in IV NS 0.9% 100 ML IV SCH (15:11)
[2021-08-14 16:13] VITALS: BP 120/51
[2021-08-14] MEDS: AMPICILLIN /SULBACTAM 3 G in IV NS 0.9% 50 ML IJ SCH ×2 (16:15→17:40)
[2021-08-14] MEDS: AMLODIPINE BESYLATE 10 MG TABLET PO SCH (17:50)
--- NOTE | 2021-08-14 18:34 | NUR ---
ADJUNCT PSYCHOLOGY PROFESSOR CLOSING NOTES PT IN BED AWAKE AT THIS TIME. OBTUNDED, OPEN HER EYES AND RESPONSIVE TO PAIN STIMULI. HOB KEPT ELEVATED AT ALL TIMES. DAUGHTER AT BEDSIDE. PT WITH TRACH PORTEX # 7 CONNECTED TO MECHANICAL VENTILATOR AT SETTINGS OF AC TV 500, R 14, FI02 30% AND PEEP 5, SP02 99-100%, NO ACUTE RESPIRATORY DISTRESS NOTED. TELE-MONITOR SHOWS NSR WITH HR ON THE 70-80'S DURING SHIFT. G-TUBE IN PLACE WITH FEEDING OF NEPRO AT 40ML/HR IN PROGRESS, TOLERATING WELL. ASPIRATION PRECAUTIONS MAINTAINED. XIOMARA MIDLINE INTACT, FLUSHED AND PATENT. RIGHT SUBCLAVIAN HD CATHETER IN PLACE WITH DRESSING C/D/I. PROCTOR IN PLACED WITH 10ML CLEAR YELLOW URINE OUTPUT DURING SHIFT, PROCTOR CARE DONE. RECTAL FLEXI SEAL TUBE IN PLACE WITH BROWNISH SOFT TO WATERY STOOL NOTED. PT TURNED AND REPOSITIONED Q 2HRS AND PRN. KEPT CLEAN, DRY AND COMFORTABLE AT ALL TIMES. SAFETY MEASURES KEPT IN PLACE: BED IN LOWEST LOCKED POSITION, S/R UP X3 AND CALL LIGHT WITHIN REACH. WILL ENDORSED OTIS TO AIRCRAFT PAINTER NURSE.
--- NOTE | 2021-08-14 19:15 | NUR ---
RN NOTES: RECEIVE LYING ON BED, EYES CLOSE, OBTUNDED PATIENT, WHEN I STARTED TO CALL HIS NAME AND GREETED HIM , HE OPEN HIS EYES, DAUGHTER WAS AT BED SIDE, INTRODUCE MYSELF AND ORIENTED THEM TO UNIT AND STAFF, PATIENT IS ON CONTACT-DROPLET ISOLATION AWAITING FOR THE QUANTIFERON TEST RESULT, PATIENT IS VENTILATOR, TRACH PORTEX #7, AC=14 KI=439 PEEP=5 Fi02=30, ON FLEXISEAL, ON PROCTOR CATH- NO OUTPUT YET, ON PEG FEED, NEPHRO AT 40 ML/HR. HE HAS RIGHT SUBCLAVIAN HD CATH, HD DONE TODAY , NO OUTPUT.
[2021-08-14 20:00] VITALS: BP_SYST 123; BP_SYST 129; BP_DIAS 52
--- NOTE | 2021-08-14 20:18 | NUR ---
RN NOTES: -AT 1920; AFTER ENDORSEMENT F/U RIGHT AWAY IN C/S REGARDING ISO-SET UP AND ASK FOR ADDITIONAL GOWN, DROPLET/CONTACT ISOLATION OBSERVED.
--- NOTE | 2021-08-14 21:12 | NUR ---
RN NOTES: PATIENT BP-129/52 NE-69, RN-CN NOTIFIED LABETALOL AND CARVEDILOL NOT GIVEN AT THIS TIME DUE TO LOW DIASTOLIC PRESSURE.
--- NOTE | 2021-08-14 21:26 | NUR ---
RN NOTES: EXPLAINED TO DAUGHTER AT BED SIDE ANTI HYPERTENSIVE MEDS WAS NOT GIVEN DUE TO LOW DIASTOLIC PRESSURE, SHE EXPRESS HER APPRECIATION BECAUSE SHE SAID "LAST TIME HER BP WENT DOWN AND IM SO GLAD YOU NOTIFY ME".
[2021-08-14] MEDS: NEPRO 1,000 ML BOTTLE GT PRN (21:46)
[2021-08-14] MEDS: LATANOPROST EYE DROP 0.005% 2.5 ML BOTTLE OP SCH (22:06)
--- NOTE | 2021-08-14 22:36 | NUR ---
RN NOTES: TURNING AND REPOSITIONING DONE, DAUGHTER JUST LEFT, RT CAME NEBULIZATION RENDERED, AIRBORNE PRECAUTION OBSERVED.
[2021-08-15] VITALS: BP 120/46
[2021-08-15] MEDS: BLOOD SUGAR DIAGNOSTIC 1 EACH STRIP IN SCH ×4 (00:56→17:14)
--- NOTE | 2021-08-15 00:57 | NUR ---
RN NOTES: AT 0000 BLOOD SUGAR CHECKED-121, NO INSULIN PER SCALE, WILL CONTINUE TO MONITOR FOR ANY SIGN OF HYPER/HYPOGLYCEMIA.
[2021-08-15] MEDS: IPRATROPIUM NEB FS 0.5 MG/2.5 ML AMPUL.NEB IH SCH ×4 (02:13→19:41)
[2021-08-15 04:00] VITALS: BP 110/42
--- NOTE | 2021-08-15 04:43 | NUR ---
RN NOTES: TURNING AND REPOSITIONING DONE,SPONGE BATH RENDERED, PEG SITE CLEAN AND DRESSING CHANGE, SACRAL PS DRESSING DONE, OFF LOADED RIGHT AND LEFT HEEL, FLEXISEAL INTACT, HE PASS LIKE SEMI SOFT STOOL, DARK BROWN IN COLOR, TOTAL OUTPUT DRAINED IN [id number], SUCTIONING DONE, REPOSITIONED.
[2021-08-15] MEDS: PHENYTOIN SODIUM IV 100 MG/2ML VIAL IV SCH ×3 (05:11→20:26)
--- NOTE | 2021-08-15 06:26 | NUR ---
RN NOTES: AT 0600 BLOOD SUGAR CHECKED-113, NO INSULIN PER SCALE. REPOSITIONING DONE.
[2021-08-15 06:50] LABS: BASOPHILS % (AUTO) 0.2 % (0.0-2.0); EOSINOPHILS % (AUTO) 1.2 % (0.0-6.0); HEMATOCRIT 28 % (33-45); HEMOGLOBIN 8.3 g/dL (11.5-14.8); LYMPHOCYTES # (AUTO) 1.7 K/uL (0.8-4.8); LYMPHOCYTES % (AUTO) 8.5 % (20.0-44.0); MEAN CORPUSCULAR HGB CONC 30 g/dl (31.0-36.0); MEAN CORPUSCULAR VOLUME 103 fL (82-100); MONOCYTES # (AUTO) 1.8 K/uL (0.1-1.30); MONOCYTES % (AUTO) 9.2 % (2.0-12.0); NEUTROPHILS # (AUTO) 15.9 K/uL (1.8-8.9); NEUTROPHILS % (AUTO) 80.9 % (43.0-81.0); PLATELET COUNT (AUTO) 415 K/uL (150-450); RED BLOOD CELL COUNT(AUTO) 2.66 MIL/uL (4.0-5.2); WHITE BLOOD COUNT (AUTO) 19.7 K/uL (4.3-11.0)
[2021-08-15 06:51] LABS: CALCIUM, SERUM 9.3 mg/dL (8.5-10.1); CARBON DIOXIDE 23 mmol/L (21-32); CHLORIDE 99 mmol/L (98-107); CREATININE 1.8 mg/dL (0.6-1.3); GLUCOSE 121 mg/dL (74-106); MAGNESIUM 2.5 mg/dL (1.8-2.4); PHOSPHORUS 3.2 mg/dL (2.5-4.9); POTASSIUM 4.4 mmol/L (3.5-5.1); SODIUM SERUM 135 mmol/L (136-145); UREA NITROGEN, BLOOD 54 mg/dL (7-18)
--- NOTE | 2021-08-15 07:27 | NUR ---
RN NOTES: REPOSITIONED, ON MECHANICAL VENTILATOR,SPO2-100%, ON PEG TUBE PATENT ON NEPHRO AT 40 ML/HR, NASEEM-ML PATENT, RUC-HD PORT DRY DRESSING, NO DRAINAGE, PROCTOR CATH, VERY SCANTY URINE, FLEXISEAL WORKING, NEEDS ANTICIPATED. ENDORSED FOR CONTINUITY OF CARE.FOR NEPHRO F/U 08/16/21.
[2021-08-15 08:00] VITALS: BP 147/60
--- NOTE | 2021-08-15 08:14 | NUR ---
TELE/RN CASSANDRA NOTES RECEIVED PATIENT IN BED. OBTUNDED. PATIENT ON AIRBORNE PRECAUTION DUE TO POSSIBLE TB. ON MECHANICAL VENTILATOR,SPO2-100%, ON PEG TUBE PATENT ON NEPHRO AT 40 ML/HR, NASEEM-MIDLINE PATENT, RUC-HD PORT DRY DRESSING, NO DRAINAGE, PROCTOR CATH, VERY SCANTY URINE, FLEXISEAL WORKING. SAFETY PRECAUTIONS IN PLACED: BED LOCKED ON LOWEST POSITION, SIDE RAILS UPX3. WILL CONTINUE TO MONITOR PATIENT.
[2021-08-15] MEDS: CHLORHEXIDINE GLUCONATE 15 ML UDC MM SCH ×2 (09:45→17:11)
[2021-08-15] MEDS: PROSOURCE / PROSTAT (PYXIS) 30 ML UDC GT SCH ×2 (09:45→17:13)
[2021-08-15] MEDS: SEVELAMER CARBONATE 800 MG TABLET PO SCH ×3 (09:46→17:11)
[2021-08-15] MEDS: LABETALOL HCL (100MG) 100 MG TABLET PO SCH ×2 (09:46→20:27)
[2021-08-15] MEDS: PANTOPRAZOLE 40 MG TABLET.DR PO SCH (09:46)
[2021-08-15] MEDS: PHENOBARBITAL 30 MG TABLET PO SCH ×2 (09:47→17:13)
[2021-08-15] MEDS: METOCLOPRAMIDE HCL 10 MG TABLET PO SCH ×3 (09:47→17:13)
[2021-08-15] MEDS: ISOSORBIDE DINITRATE (20MG) 20 MG TABLET PO SCH ×3 (09:48→17:00)
[2021-08-15] MEDS: CARVEDILOL 12.5 MG TABLET PO SCH ×2 (09:48→21:00)
[2021-08-15] MEDS: DAKINS QUARTER STRENGTH (0.125%) 480 ML BOTTLE TOP SCH (09:52)
[2021-08-15] MEDS: DORZOLAMIDE OPTH 2% 10 ML BOTTLE OP SCH ×2 (09:55→17:14)
[2021-08-15 11:01] LABS: EOSINOPHILS % (MANUAL) 1 % (0-4); LYMPHOCYTES % (MANUAL) 6 % (16-48); MONOCYTES % (MANUAL) 5 % (0-11.0); NEUTROPHILS % (MANUAL) 88 (42-76)
[2021-08-15 12:00] VITALS: BP 146/57
[2021-08-15] MEDS: INSULIN REGULAR, HUMAN 100 UNIT/ML 3 ML VIAL SQ PRN (13:36)
[2021-08-15] MEDS: EPOETIN ALFA-EPBX 4,000 UNIT/ML VIAL IV SCH (15:00)
[2021-08-15 16:00] VITALS: BP 123/49
[2021-08-15] MEDS: AMLODIPINE BESYLATE 10 MG TABLET PO SCH (17:14)
[2021-08-15] MEDS: AMPICILLIN /SULBACTAM 3 G in IV NS 0.9% 50 ML IJ SCH (17:16)
--- NOTE | 2021-08-15 17:16 | NUR ---
TELE/RN NOTES- WITHHELD BP MEDS WITHHELD ISOSORBIDE 20MG AND AMLODIPINE 20MG PO DUE TO LOW BP OF 120/50, RR-75. WILL CONTINUE TO MONITOR.
--- NOTE | 2021-08-15 19:00 | NUR ---
TELE/RN CLOSING NOTES PATIENT TRANSFERRED TO ROOM 317. PATIENT IN BED. OBTUNDED. PATIENT ON AIRBORNE PRECAUTION DUE TO POSSIBLE TB. ON MECHANICAL VENTILATOR,SPO2-100%, ON PEG TUBE PATENT ON NEPHRO AT 40 ML/HR, NASEEM-MIDLINE PATENT, RUC-HD PORT DRY DRESSING, NO DRAINAGE, PROCTOR CATH, VERY SCANTY URINE, FLEXISEAL WORKING. SAFETY PRECAUTIONS IN PLACED: BED LOCKED IN LOWEST POSITION, SIDE RAILS UPX3. DAUGHTER AT BEDSIDE. WILL ENDORSE TO THE NEXT SHIFT FOR OTIS.
--- NOTE | 2021-08-15 19:40 | NUR ---
TELE/RN OPENING NOTES RECEIVED PATIENT IN BED. OBTUNDED. PATIENT ON AIRBORNE PRECAUTION DUE TO POSSIBLE TB. ON MECHANICAL VENTILATOR,SPO2-100%, TRACH P#7, AC-14, TV- 500 ,FI02-30 ON PEG TUBE PATENT ON NEPHRO AT 40 ML/HR, NASEEM-MIDLINE PATENT, RUC-HD PORT DRY DRESSING, NO DRAINAGE, PROCTOR CATH, VERY SMALL AMOUNT OF URINE URINE, FLEXISEAL WORKING. SAFETY PRECAUTIONS IN PLACED: BED LOCKED ON LOWEST POSITION, SIDE RAILS UPX3. WILL ENDORSED PATIENT ACCORDINGLY.
[2021-08-15 20:00] VITALS: BP 139/54
[2021-08-15] MEDS: ACETAMINOPHEN 325 MG TABLET PO PRN (20:28)
--- NOTE | 2021-08-15 20:30 | NUR ---
RN NOTES PATIENT NOTED WITH ELEVATED TEMP. AT 101.1 F, COOLING MEASURES DONE AND PRN ACETAMINOPHEN GIVEN ORDERED. TEMPERATURE WENT DOWN TO 98F AFTER 2 HRS.WILL CONTINUE TO MONITOR PATIENT
--- NOTE | 2021-08-15 22:00 | NUR ---
RN NOTES PATIENT BP =104/40 IS DECREASE, WITHHOLD CARVEDILOL MEDS AT [facility]. RECHECKED BP AFTER 1 HOUR BP IS 122/54. WILL CONTINUE TO MONITOR PATIENT
[2021-08-15] MEDS: LATANOPROST EYE DROP 0.005% 2.5 ML BOTTLE OP SCH (22:25)
[2021-08-16] VITALS (7 sets, daily range): BP systolic 99–142; BP diastolic 52–65
[2021-08-16] MEDS: BLOOD SUGAR DIAGNOSTIC 1 EACH STRIP IN SCH ×4 (00:15→17:44)
[2021-08-16] MEDS: INSULIN REGULAR, HUMAN 100 UNIT/ML 3 ML VIAL SQ PRN ×4 (00:17→17:51)
[2021-08-16] MEDS: IPRATROPIUM NEB FS 0.5 MG/2.5 ML AMPUL.NEB IH SCH ×4 (02:01→20:46)
[2021-08-16] MEDS: PHENYTOIN SODIUM IV 100 MG/2ML VIAL IV SCH ×3 (04:18→20:34)
[2021-08-16] MEDS: NEPRO 1,000 ML BOTTLE GT PRN (04:25)
--- NOTE | 2021-08-16 06:43 | NUR ---
TELE/RN CLOSING NOTES PATIENT IN BED. OBTUNDED. PATIENT ON AIRBORNE PRECAUTION DUE TO POSSIBLE TB. ON MECHANICAL VENTILATOR,SPO2-100%, TRACH P#7, AC-14, TV- 500 ,FI02-30 ON PEG TUBE PATENT ON NEPHRO AT 40 ML/HR,RESHMA. WELL.PT. WITH NASEEM-MIDLINE PATENT, RUC-HD PORT CLEAN DRY DRESSING IN PLACE, NO BLEEDING ON THE SITE. PT. WITH PROCTOR CATH, DRAINING VERY SMALL AMOUNT OF URINE, FLEXISEAL WORKING. SPONGE BATH DONE AND WOUND DRESSING WAS CHANGED.SUCTIONED SECRETIONS. KEPT PATIENT CLEAN AND DRY AT ALL TIMES. SAFETY PRECAUTIONS IN PLACED: BED LOCKED ON LOWEST POSITION, SIDE RAILS UPX3.WILL ENDORSED PATIENT TO DAY SHIFT NURSE FOR OTIS.
--- NOTE | 2021-08-16 07:30 | NUR ---
RN OPENING TELE NOTES RECEIVED PATIENT IN BED SLEEPING. OPEN HER EYES UPON TACTILE STIMULI. PATIENT ON AIRBORNE PRECAUTION DUE TO POSSIBLE TB. ON TELE MONITORING SR=69 .ON MECHANICAL VENTILATOR,SPO2-100%, TRACH P#7, AC-14, TV- 500 ,FI02-30 ON PEG TUBE PATENT ON NEPHRO AT 40 ML/HR, XIOMARA-MIDLINE PATENT, RUC-HD PORT DRY DRESSING, NO DRAINAGE. PROCTOR CATH, INTACT. FLEXISEAL WORKING. SAFETY PRECAUTIONS IN PLACED: BED LOCKED ON LOWEST POSITION, SIDE RAILS UPX3. WILL CONTINUE TO MONITOR.
[2021-08-16 07:32] LABS: CALCIUM, SERUM 9.4 mg/dL (8.5-10.1); CARBON DIOXIDE 22 mmol/L (21-32); CHLORIDE 99 mmol/L (98-107); CREATININE 2.4 mg/dL (0.6-1.3); GLUCOSE 141 mg/dL (74-106); MAGNESIUM 2.7 mg/dL (1.8-2.4); PHOSPHORUS 4.1 mg/dL (2.5-4.9); POTASSIUM 4.4 mmol/L (3.5-5.1); SODIUM SERUM 137 mmol/L (136-145)
[2021-08-16 07:33] LABS: UREA NITROGEN, BLOOD 82 mg/dL (7-18)
[2021-08-16] MEDS: PANTOPRAZOLE 40 MG TABLET.DR PO SCH (07:39)
[2021-08-16] MEDS: CHLORHEXIDINE GLUCONATE 15 ML UDC MM SCH ×2 (08:19→16:23)
[2021-08-16] MEDS: LABETALOL HCL (100MG) 100 MG TABLET PO SCH ×2 (08:21→20:34)
[2021-08-16] MEDS: SEVELAMER CARBONATE 800 MG TABLET PO SCH ×3 (08:23→17:45)
[2021-08-16] MEDS: METOCLOPRAMIDE HCL 10 MG TABLET PO SCH ×3 (08:23→17:46)
[2021-08-16] MEDS: PHENOBARBITAL 30 MG TABLET PO SCH ×2 (08:24→16:24)
[2021-08-16] MEDS: DAKINS QUARTER STRENGTH (0.125%) 480 ML BOTTLE TOP SCH (08:37)
[2021-08-16] MEDS: DORZOLAMIDE OPTH 2% 10 ML BOTTLE OP SCH ×2 (08:38→16:27)
[2021-08-16] MEDS: PROSOURCE / PROSTAT (PYXIS) 30 ML UDC GT SCH ×2 (08:43→16:26)
[2021-08-16] MEDS: ISOSORBIDE DINITRATE (20MG) 20 MG TABLET PO SCH ×3 (08:43→16:24)
[2021-08-16] MEDS ORDERED: TOBRAMYCIN 80 MG/2 ML VIAL IV SCH (09:00)
[2021-08-16] MEDS: CARVEDILOL 12.5 MG TABLET PO SCH ×2 (09:59→21:00)
[2021-08-16 12:49] LABS: BASOPHILS # (AUTO) 0.1 K/uL (0.0-0.2); BASOPHILS % (AUTO) 0.3 % (0.0-2.0); HEMATOCRIT 24 % (33-45); HEMOGLOBIN 7.7 g/dL (11.5-14.8); LYMPHOCYTES # (AUTO) 1.5 K/uL (0.8-4.8); LYMPHOCYTES % (AUTO) 8.3 % (20.0-44.0); MEAN CORPUSCULAR HGB CONC 32 g/dl (31.0-36.0); MEAN CORPUSCULAR VOLUME 98 fL (82-100); MONOCYTES # (AUTO) 1.4 K/uL (0.1-1.30); MONOCYTES % (AUTO) 7.6 % (2.0-12.0); NEUTROPHILS # (AUTO) 14.7 K/uL (1.8-8.9); NEUTROPHILS % (AUTO) 82.8 % (43.0-81.0); PLATELET COUNT (AUTO) 467 K/uL (150-450); RED BLOOD CELL COUNT(AUTO) 2.48 MIL/uL (4.0-5.2); WHITE BLOOD COUNT (AUTO) 17.7 K/uL (4.3-11.0)
[2021-08-16] MEDS: CEFTAZIDIME/AVIBACTAM 0.94 GM in IV NS 0.9% 100 ML IV SCH (15:21)
[2021-08-16] MEDS: AMPICILLIN /SULBACTAM 3 G in IV NS 0.9% 50 ML IJ SCH (15:48)
--- NOTE | 2021-08-16 16:00 | NUR ---
RN NOTES WOUND CARE DONE ORDERED.
[2021-08-16] MEDS: AMLODIPINE BESYLATE 10 MG TABLET PO SCH (17:46)
--- NOTE | 2021-08-16 18:30 | NUR ---
RN CLOSING TELE NOTES PATIENT IN BED SLEEPING. OPEN HER EYES UPON TACTILE STIMULI AND CALLING HER NAME IN [place] CITIZEN LANGUAGE. PATIENT ON AIRBORNE PRECAUTION DUE TO POSSIBLE TB. ON TELE MONITORING SR=78 .ON MECHANICAL VENTILATOR,SPO2-100%, TRACH P#7, AC-14, TV- 500 ,FI02-30 ON PEG TUBE PATENT ON NEPHRO AT 40 ML/HR, XIOMARA-MIDLINE PATENT, RUC-HD PORT DRY DRESSING, NO DRAINAGE. PROCTOR CATH, INTACT. FLEXISEAL WORKING. DAUGHTER AT HER BED SIDE. ALL DUE MEDS AND TREATMENTS DONE ORDERED. SAFETY PRECAUTIONS IN PLACED: BED LOCKED ON LOWEST POSITION, SIDE RAILS UPX3. WILL ENDORSE ONCOMING SHIFT FOR ANY OTIS.
--- NOTE | 2021-08-16 18:36 | NUR ---
RN NOTES HELD 9AM BP LABETOLOL FOR LOW BLOOD PRESSURE.
--- NOTE | 2021-08-16 19:40 | NUR ---
RN NOTES Received patient on her bed, daughter at bedside, vent dependent, not in distress, SR on tele monitor HR-79, G-tube feeding running @ 40 ml/hr, no residual, F/C draining small amount of urine, pt is an HD patient, Flexiseal in place, siderailsupxx2, will continue to monitor
--- NOTE | 2021-08-16 20:30 | NUR ---
RN NOTES Patient has temp. of 101.2 - Tylenol 650mg po given as ordered, applied cold compress
[2021-08-16] MEDS: ACETAMINOPHEN 325 MG TABLET PO PRN (20:36)
[2021-08-16] MEDS: LATANOPROST EYE DROP 0.005% 2.5 ML BOTTLE OP SCH (21:22)
--- NOTE | 2021-08-16 22:00 | NUR ---
RN NOTES COREG WAS NOT GIVEN BLOOD PRESSURE WENT DOWN TO 104/45,PER PT'S DAUGHTER WHO'S AT BEDSIDE TELL ME NOT TO GIVE THE MEDICINE
--- NOTE | 2021-08-16 22:30 | NUR ---
N NOTES Patient temp went down to 97.8
[2021-08-17] VITALS (8 sets, daily range): BP systolic 110–165; BP diastolic 33–62
[2021-08-17] MEDS: BLOOD SUGAR DIAGNOSTIC 1 EACH STRIP IN SCH ×4 (00:34→18:14)
[2021-08-17] MEDS: IPRATROPIUM NEB FS 0.5 MG/2.5 ML AMPUL.NEB IH SCH ×4 (02:00→19:00)
[2021-08-17] MEDS: PHENYTOIN SODIUM IV 100 MG/2ML VIAL IV SCH ×3 (04:44→20:53)
[2021-08-17] MEDS: NEPRO 1,000 ML BOTTLE GT PRN (04:49)
--- NOTE | 2021-08-17 06:32 | NUR ---
RN NOTES sleeping but arousable, not in distress, G-tube feeding running , no residual noted, m,orning care rendered, siderailsupx,2 pt. needs attended
[2021-08-17 06:35] LABS: BASOPHILS # (AUTO) 0.1 K/uL (0.0-0.2); BASOPHILS % (AUTO) 0.5 % (0.0-2.0); EOSINOPHILS % (AUTO) 1.4 % (0.0-6.0); HEMATOCRIT 23 % (33-45); HEMOGLOBIN 7.8 g/dL (11.5-14.8); LYMPHOCYTES # (AUTO) 1.7 K/uL (0.8-4.8); LYMPHOCYTES % (AUTO) 10.8 % (20.0-44.0); MEAN CORPUSCULAR HGB CONC 33 g/dl (31.0-36.0); MEAN CORPUSCULAR VOLUME 96 fL (82-100); MONOCYTES # (AUTO) 1.4 K/uL (0.1-1.30); MONOCYTES % (AUTO) 8.7 % (2.0-12.0); NEUTROPHILS # (AUTO) 12.7 K/uL (1.8-8.9); NEUTROPHILS % (AUTO) 78.6 % (43.0-81.0); PLATELET COUNT (AUTO) 472 K/uL (150-450); RED BLOOD CELL COUNT(AUTO) 2.43 MIL/uL (4.0-5.2); WHITE BLOOD COUNT (AUTO) 16.2 K/uL (4.3-11.0)
[2021-08-17 07:11] LABS: CALCIUM, SERUM 9.6 mg/dL (8.5-10.1); CARBON DIOXIDE 20 mmol/L (21-32); CHLORIDE 99 mmol/L (98-107); CREATININE 2.4 mg/dL (0.6-1.3); GLUCOSE 130 mg/dL (74-106); MAGNESIUM 2.6 mg/dL (1.8-2.4); PHOSPHORUS 4.3 mg/dL (2.5-4.9); POTASSIUM 4.4 mmol/L (3.5-5.1); SODIUM SERUM 136 mmol/L (136-145)
[2021-08-17 07:17] LABS: UREA NITROGEN, BLOOD 97 mg/dL (7-18)
--- NOTE | 2021-08-17 07:30 | NUR ---
RN OPENING NOTE RECEIVED PATIENT IN BED. OBTUNDED. PATIENT ON AIRBORNE PRECAUTION DUE TO POSSIBLE TB. ON MECHANICAL VENTILATOR, SPO2-100%, TRACH P#7, AC-14, TV- 500 ,FI02-30 ON PEG TUBE PATENT ON NEPHRO AT 40 ML/HR, NASEEM-MIDLINE PATENT, RUC-HD PORT DRY DRESSING, NO DRAINAGE, PROCTOR CATH, VERY SMALL AMOUNT OF URINE, FLEXISEAL WORKING. SAFETY PRECAUTIONS IN PLACE, BED LOCKED IN LOWEST POSITION, SIDE RAILS UPX3, CALL LIGHT AND TABLE IN REACH.
[2021-08-17 07:55] LABS: EOSINOPHILS % (MANUAL) 3 % (0-4); LYMPHOCYTES % (MANUAL) 12 % (16-48); MONOCYTES % (MANUAL) 7 % (0-11.0); MYELOCYTES % 1 % (0-0); NEUTROPHILS % (MANUAL) 77 (42-76)
[2021-08-17] MEDS: LABETALOL HCL (100MG) 100 MG TABLET PO SCH ×2 (09:00→20:54)
[2021-08-17] MEDS: CARVEDILOL 12.5 MG TABLET PO SCH ×2 (09:00→20:54)
[2021-08-17] MEDS: ISOSORBIDE DINITRATE (20MG) 20 MG TABLET PO SCH ×3 (09:00→19:00)
[2021-08-17] MEDS: PANTOPRAZOLE 40 MG TABLET.DR PO SCH (09:24)
[2021-08-17] MEDS: SEVELAMER CARBONATE 800 MG TABLET PO SCH ×3 (09:27→19:48)
[2021-08-17] MEDS: PHENOBARBITAL 30 MG TABLET PO SCH ×2 (09:27→19:48)
[2021-08-17] MEDS: CHLORHEXIDINE GLUCONATE 15 ML UDC MM SCH ×2 (09:27→18:34)
[2021-08-17] MEDS: METOCLOPRAMIDE HCL 10 MG TABLET PO SCH ×3 (09:27→19:48)
[2021-08-17] MEDS: PROSOURCE / PROSTAT (PYXIS) 30 ML UDC GT SCH ×2 (10:07→19:47)
[2021-08-17] MEDS: DAKINS QUARTER STRENGTH (0.125%) 480 ML BOTTLE TOP SCH (10:07)
[2021-08-17] MEDS: DORZOLAMIDE OPTH 2% 10 ML BOTTLE OP SCH ×2 (10:11→18:34)
[2021-08-17] MEDS ORDERED: DOSE PER PHARMACY MICAFUNGIN 1 EA IV SCH (12:00)
[2021-08-17] MEDS: INSULIN REGULAR, HUMAN 100 UNIT/ML 3 ML VIAL SQ PRN (13:00)
[2021-08-17] MEDS: MICAFUNGIN SODIUM 100 MG in IV NS 0.9% 100 ML IV SCH ×2 (14:14→18:33)
--- NOTE | 2021-08-17 18:51 | NUR ---
ELEVATOR TECHNICIAN CLOSING NOTES PT IN BED EYES CLOSED, NO S/S OF RESPIRATORY DISTRESS AT THIS TIME. OPENS HER EYES UPON TACTILE STIMULI AND CALLING HER NAME IN [place]UNG[place]IAN LANGUAGE. PT ON CONTACT PRECAUTIONS DUE TO PNA. ON TELE MONITORING SR=74 .ON MECHANICAL VENTILATOR, SPO2-100%, TRACH P#7, AC-14, TV- 500 ,FI02-30 ON PEG TUBE PATENT ON NEPHRO AT 40 ML/HR, XIOMARA-MIDLINE PATENT, RUC-HD PORT DRY DRESSING, NO DRAINAGE. HD COMPLETED TODAY WITH 2 L OUT. PT TOLERATED WELL, SITE IS INTACT, BP 136/50, P 72. PROCTOR CATH, INTACT. FLEXISEAL WORKING. DAUGHTER AT HER BED SIDE. ALL NEEDS MET AT THIS TIME. SAFETY PRECAUTIONS IN PLACE: BED LOCKED IN LOWEST POSITION, SIDE RAILS UPX3. WILL ENDORSE ONCOMING SHIFT FOR OTIS.
[2021-08-17] MEDS: AMLODIPINE BESYLATE 10 MG TABLET PO SCH (19:00)
--- NOTE | 2021-08-17 19:30 | NUR ---
isodyl and norvasc at 1700 and 1800 non-administered d/t patient currently receiving dialysis. Will receive 2100 blood pressure medications if BP is high at 2000.
[2021-08-17] MEDS: AMPICILLIN /SULBACTAM 3 G in IV NS 0.9% 50 ML IJ SCH (19:43)
--- NOTE | 2021-08-17 20:00 | NUR ---
Patient is alert to light pain, otherwise in bed eyes closed obtunded.On [facility] ventilator. settings checked. Tea colored urine to manuel, flexiseal in place. Reposition q2h, offloading bony prominences. Nepro currently running at 40cc/hr, HOB >40 degrees at all times. XIOMARA midline flushed and patent currently running IV ABX. R subclavian HD cath intact no s/s of bleeding. No signs of distress. Will continue to monitor.
[2021-08-17] MEDS: TOBRAMYCIN 80 MG in IV D5W 50 ML IV PRN (20:47)
[2021-08-17] MEDS: LATANOPROST EYE DROP 0.005% 2.5 ML BOTTLE OP SCH (22:25)
[2021-08-18] VITALS: BP 154/61
[2021-08-18] MEDS: BLOOD SUGAR DIAGNOSTIC 1 EACH STRIP IN SCH ×4 (00:20→17:19)
[2021-08-18] MEDS: INSULIN REGULAR, HUMAN 100 UNIT/ML 3 ML VIAL SQ PRN ×2 (00:22→12:40)
[2021-08-18] MEDS: IPRATROPIUM NEB FS 0.5 MG/2.5 ML AMPUL.NEB IH SCH ×4 (00:30→20:33)
[2021-08-18 04:00] VITALS: BP 134/56
--- NOTE | 2021-08-18 04:40 | NUR ---
Temp of 102.0 noted at 0400 vitals. PRN tylenol given for fever. Will recheck later. Patient already on ABX and blood cx pending. No signs of distress besides patient sweating.
[2021-08-18] MEDS: PHENYTOIN SODIUM IV 100 MG/2ML VIAL IV SCH ×3 (04:44→21:10)
[2021-08-18] MEDS: ACETAMINOPHEN 325 MG TABLET PO PRN (04:44)
[2021-08-18] MEDS: NEPRO 1,000 ML BOTTLE GT PRN (05:31)
--- NOTE | 2021-08-18 05:56 | NUR ---
Rechecked temp 100.1
--- NOTE | 2021-08-18 06:59 | NUR ---
Patient saturating well thought night -on vent. Suctioned PRN thin white sputum. Tolerating IV ABX well. Patient did have fever of 102 that went down to 98.2 after PRN tylenol admin. Otherwise no issues. Kept comfortable. Turn q2h kept clean and dry. offloading bony prominences. Only 7cc tea colored urine to manuel. Patient is HD.
--- NOTE | 2021-08-18 06:59 | NUR ---
temp down to 98.2
[2021-08-18 07:09] LABS: BASOPHILS # (AUTO) 0.1 K/uL (0.0-0.2); BASOPHILS % (AUTO) 0.5 % (0.0-2.0); HEMATOCRIT 24 % (33-45); LYMPHOCYTES # (AUTO) 1.8 K/uL (0.8-4.8); MEAN CORPUSCULAR HGB CONC 33 g/dl (31.0-36.0); MEAN CORPUSCULAR VOLUME 97 fL (82-100); MONOCYTES # (AUTO) 1.3 K/uL (0.1-1.30); MONOCYTES % (AUTO) 8.3 % (2.0-12.0); NEUTROPHILS # (AUTO) 11.9 K/uL (1.8-8.9); NEUTROPHILS % (AUTO) 78.2 % (43.0-81.0); PLATELET COUNT (AUTO) 492 K/uL (150-450); RED BLOOD CELL COUNT(AUTO) 2.52 MIL/uL (4.0-5.2); WHITE BLOOD COUNT (AUTO) 15.3 K/uL (4.3-11.0)
[2021-08-18 07:18] LABS: CALCIUM, SERUM 9.6 mg/dL (8.5-10.1); CARBON DIOXIDE 23 mmol/L (21-32); CHLORIDE 103 mmol/L (98-107); CREATININE 1.9 mg/dL (0.6-1.3); GLUCOSE 155 mg/dL (74-106); MAGNESIUM 2.6 mg/dL (1.8-2.4); PHOSPHORUS 2.7 mg/dL (2.5-4.9); POTASSIUM 3.8 mmol/L (3.5-5.1); SODIUM SERUM 140 mmol/L (136-145); UREA NITROGEN, BLOOD 57 mg/dL (7-18)
--- NOTE | 2021-08-18 07:30 | NUR ---
SCUBA DIVE TRAINING INSTRUCTOR OPENING NOTE RECEIVED PT IN BED WITH EYES CLOSED. NO SOB OR S/S OF RESPIRATORY DISTRESS NOTED. PT OPENS EYES UPON TACTILE STIMULI AND CALLING HER NAME IN [place] LANGUAGE. NO SOB OR S/S OF RESPIRATORY DISTRESS NOTED. PT ON CONTACT PRECAUTIONS DUE TO PNA. PT NOTED ON EXTERNAL MGMT SPECIALIST READING SR. PT NOTED ON MECHANICAL VENTILATOR, SPO2-100%, TRACH P#7, AC-14, TV- 500, FI02-30. PT WITH PEG TUBE NEPRO RUNNING AT 40 ML/HR, INTACT AND PATENT. XIOMARA-MIDLINE INTACT AND PATENT, RUC-HD PORT DRESSING C/D/I. PROCTOR CATH INTACT. FLEXISEAL INTACT. SAFETY PRECAUTIONS MAINTAINED. BED IN LOWEST LOCKED POSITION, HOB ELEVATED, SIDE RAILS UPX3. CALL LIGHT AND TABLE WITHIN REACH. WILL CONTINUE TO MONITOR.
[2021-08-18] MEDS: PANTOPRAZOLE 40 MG TABLET.DR PO SCH (08:20)
[2021-08-18] MEDS: SEVELAMER CARBONATE 800 MG TABLET PO SCH ×3 (08:20→18:18)
[2021-08-18] MEDS: METOCLOPRAMIDE HCL 10 MG TABLET PO SCH ×3 (08:20→18:18)
[2021-08-18] MEDS: CHLORHEXIDINE GLUCONATE 15 ML UDC MM SCH ×2 (08:34→16:06)
[2021-08-18] MEDS: PHENOBARBITAL 30 MG TABLET PO SCH ×2 (08:34→16:06)
[2021-08-18] MEDS: CARVEDILOL 12.5 MG TABLET PO SCH ×2 (08:35→21:00)
[2021-08-18] MEDS: ISOSORBIDE DINITRATE (20MG) 20 MG TABLET PO SCH ×3 (08:35→16:33)
[2021-08-18] MEDS: LABETALOL HCL (100MG) 100 MG TABLET PO SCH ×2 (08:36→21:00)
[2021-08-18] MEDS: PROSOURCE / PROSTAT (PYXIS) 30 ML UDC GT SCH ×2 (08:54→16:04)
[2021-08-18 09:28] VITALS: BP 106/44
[2021-08-18] MEDS: DAKINS QUARTER STRENGTH (0.125%) 480 ML BOTTLE TOP SCH (09:52)
[2021-08-18] MEDS: DORZOLAMIDE OPTH 2% 10 ML BOTTLE OP SCH ×2 (09:53→17:19)
[2021-08-18 12:00] VITALS: BP 113/43
[2021-08-18] MEDS: MICAFUNGIN SODIUM 100 MG in IV NS 0.9% 100 ML IV SCH (12:38)
[2021-08-18] MEDS: EPOETIN ALFA-EPBX 4,000 UNIT/ML VIAL IV SCH (15:05)
[2021-08-18] MEDS: CEFTAZIDIME/AVIBACTAM 0.94 GM in IV NS 0.9% 100 ML IV SCH (15:07)
[2021-08-18 16:00] VITALS: BP 115/52
[2021-08-18] MEDS ORDERED: EPOETIN ALFA-EPBX 10,000 UNIT/ML VIAL IV ONE (16:00)
[2021-08-18] MEDS: AMPICILLIN /SULBACTAM 3 G in IV NS 0.9% 50 ML IJ SCH (16:04)
[2021-08-18] MEDS: AMLODIPINE BESYLATE 10 MG TABLET PO SCH (17:20)
--- NOTE | 2021-08-18 19:00 | NUR ---
MOLDING LINE OPERATOR OPENING NOTE RECEIVED PT IN BED, AWAKE AND RESTING. PT'S DAUGHTER PRESENT. PT IS NONVERBAL, ON VENTILATION PORTEX #7, AC 14, TV 500, FIO2 30%, PEEP 5, EXTERNAL RESEARCH & ANALYTICS MANAGER SR @ 76, NO SOB OR RESPIRATORY DISTRESS NOTED, NO C/O PAIN AT THIS TIME. RESPIRATIONS EVEN AND UNLABORED. IV ACCESS NOTED IN LEFT UPPER ARM MIDLINE AND RIGHT SUBCLAVIAN HD CATH IN PLACE. . NGT IN PLACE, FLEXISEAL, AND PROCTOR CATHETER IN PLACE.FALL AND SAFETY MEASURES IN PLACE AND MAINTAINED AT ALL TIMES. BED ALARM, BED IN LOW AND LOCKED POSITION, HOB ELEVATED TO SEMI FOWLERS POSITION, CALL LIGHT AND TABLE WITHIN REACH. SIDE RAILS UP X2. WILL CONTINUE WITH PLAN OF CARE.
--- NOTE | 2021-08-18 19:00 | NUR ---
HOUSEKEEPER CLEANING COOKING CLOSING NOTE PT IS IN BED WITH EYES CLOSED. PT OPENS EYES UPON TACTILE STIMULI AND CALLING HER NAME IN [place] LANGUAGE. PT NOTED ON EXTERNAL LACEWORKER READING SR. PT NOTED ON MECHANICAL VENTILATOR, SPO2-100%, TRACH P#7, AC-14, TV- 500, FI02-30. NO SOB OR S/S OF RESPIRATORY DISTRESS NOTED. PT ON CONTACT PRECAUTIONS DUE TO PNA. PT WITH PEG TUBE NEPRO RUNNING AT 40 ML/HR, INTACT AND PATENT. XIOMARA-MIDLINE INTACT AND PATENT, RUC-HD PORT DRESSING C/D/I. PROCTOR CATH INTACT. FLEXISEAL INTACT. ALL NEEDS HAVE BEEN MET. SAFETY PRECAUTIONS MAINTAINED AT ALL TIMES. BED IN LOWEST LOCKED POSITION, HOB ELEVATED, SIDE RAILS UPX3. CALL LIGHT AND TABLE WITHIN REACH. WILL ENDORSE TO ONCOMING NURSE FOR OTIS.
[2021-08-18 20:00] VITALS: BP 137/61
--- NOTE | 2021-08-18 21:04 | NUR ---
PT'S FAMILY REFUSED BP MEDICATION
[2021-08-18] MEDS: LATANOPROST EYE DROP 0.005% 2.5 ML BOTTLE OP SCH (22:58)
[2021-08-19] VITALS: BP 136/66
[2021-08-19] MEDS: INSULIN REGULAR, HUMAN 100 UNIT/ML 3 ML VIAL SQ PRN ×2 (00:48→06:34)
[2021-08-19] MEDS: BLOOD SUGAR DIAGNOSTIC 1 EACH STRIP IN SCH ×4 (00:49→17:42)
[2021-08-19] MEDS: IPRATROPIUM NEB FS 0.5 MG/2.5 ML AMPUL.NEB IH SCH ×4 (02:04→19:41)
[2021-08-19 04:00] VITALS: BP 101/29
[2021-08-19 04:32] LABS: BASOPHILS # (AUTO) 0.1 K/uL (0.0-0.2); BASOPHILS % (AUTO) 0.5 % (0.0-2.0); EOSINOPHILS % (AUTO) 1.4 % (0.0-6.0); HEMATOCRIT 21 % (33-45); LYMPHOCYTES # (AUTO) 1.6 K/uL (0.8-4.8); LYMPHOCYTES % (AUTO) 13.6 % (20.0-44.0); MEAN CORPUSCULAR HGB CONC 33 g/dl (31.0-36.0); MEAN CORPUSCULAR VOLUME 96 fL (82-100); MONOCYTES # (AUTO) 0.8 K/uL (0.1-1.30); NEUTROPHILS # (AUTO) 9.2 K/uL (1.8-8.9); NEUTROPHILS % (AUTO) 77.5 % (43.0-81.0); PLATELET COUNT (AUTO) 457 K/uL (150-450); RED BLOOD CELL COUNT(AUTO) 2.21 MIL/uL (4.0-5.2); WHITE BLOOD COUNT (AUTO) 11.9 K/uL (4.3-11.0)
[2021-08-19 04:40] LABS: CALCIUM, SERUM 9.8 mg/dL (8.5-10.1); CARBON DIOXIDE 27 mmol/L (21-32); CHLORIDE 101 mmol/L (98-107); CREATININE 2.2 mg/dL (0.6-1.3); GLUCOSE 159 mg/dL (74-106); MAGNESIUM 2.5 mg/dL (1.8-2.4); PHOSPHORUS 3.1 mg/dL (2.5-4.9); POTASSIUM 3.9 mmol/L (3.5-5.1); SODIUM SERUM 139 mmol/L (136-145); UREA NITROGEN, BLOOD 75 mg/dL (7-18)
[2021-08-19] MEDS: PHENYTOIN SODIUM IV 100 MG/2ML VIAL IV SCH ×3 (05:00→21:22)
--- NOTE | 2021-08-19 05:06 | NUR ---
TYLER HELD AT THIS TIME. PT RECEIVING DIALYSIS AT THE MOMENT. WILL ENDORSE TO AM RN FOR OTIS.
--- NOTE | 2021-08-19 05:14 | NUR ---
CRITICAL LAB VALUE RECEIVED CRITICAL LAB VALUE FOR HGB 7.0 AND HCT 21. LAB VALUE REPORTED BY LIBAN FROM LAB. READ BACK PROVIDED. CAROLYNE, CHARGE NURSE AND DR VILLEGAS MADE AWARE. AWAITING ORDERS. WILL CONTINUE TO MONITOR.
--- NOTE | 2021-08-19 06:30 | NUR ---
CALENDER TENDER CLOSING NOTE PT IS AWAKE IN BED AT THIS TIME, ONGOING DIALYSIS, OUTPUT OF 2L. PT IS ON LAMINATOR HAND READING SR @76. PT REMAINED STABLE THROUGHOUT SHIFT. WILL ENDORSE TO AM RN FOR OTIS.
--- NOTE | 2021-08-19 07:26 | NUR ---
Per endorsement, patient's hemoglobin level is 7.0, patient seen comfortably lying in bed, no apparent distress noted, no s/s of bleeding, no unusual bleeding noted, no hematuria, no blood in stool, no unusual bruising noted, no bleeding gums, hospitalist made aware of the situation and acknowledged, will monitor closely for any changes.
--- NOTE | 2021-08-19 07:30 | NUR ---
Patient has an order for IV ATB (Tobramycin) to be given after hemodialysis session, called pharmacy to follow up and pharmacy said they will deliver, will follow up.
[2021-08-19 08:00] VITALS: BP 105/54
--- NOTE | 2021-08-19 08:00 | NUR ---
Patient's tobramycin trough still pending, called lab to follow up results, and results not ready yet. Addendum: 08/19/21 at 1858 by TADEO GALICIA RN Patient's tobramycin trough results still pending, lab was drawn yesterday at 1415, called lab to follow up results, and results not ready yet.
[2021-08-19] MEDS: PROSOURCE / PROSTAT (PYXIS) 30 ML UDC GT SCH ×2 (08:46→17:14)
[2021-08-19] MEDS: PANTOPRAZOLE 40 MG TABLET.DR PO SCH (08:46)
[2021-08-19] MEDS: PHENOBARBITAL 30 MG TABLET PO SCH ×2 (08:46→17:14)
[2021-08-19] MEDS: SEVELAMER CARBONATE 800 MG TABLET PO SCH ×3 (08:47→17:14)
[2021-08-19] MEDS: NEPRO 1,000 ML BOTTLE GT PRN (08:47)
[2021-08-19] MEDS: METOCLOPRAMIDE HCL 10 MG TABLET PO SCH ×3 (08:47→17:14)
[2021-08-19] MEDS: CHLORHEXIDINE GLUCONATE 15 ML UDC MM SCH ×2 (08:47→17:15)
[2021-08-19] MEDS: LABETALOL HCL (100MG) 100 MG TABLET PO SCH ×2 (09:00→21:23)
[2021-08-19] MEDS: CARVEDILOL 12.5 MG TABLET PO SCH ×2 (09:00→21:22)
[2021-08-19] MEDS: ISOSORBIDE DINITRATE (20MG) 20 MG TABLET PO SCH ×3 (09:00→17:14)
[2021-08-19] MEDS: DAKINS QUARTER STRENGTH (0.125%) 480 ML BOTTLE TOP SCH (09:18)
[2021-08-19] MEDS: DORZOLAMIDE OPTH 2% 10 ML BOTTLE OP SCH ×2 (09:18→17:42)
--- NOTE | 2021-08-19 12:00 | NUR ---
Called pharmacy and labs to follow up Tobramycin dosing and Tobramycin trough results, dosing and trough still pending, will follow up.
[2021-08-19] MEDS: MICAFUNGIN SODIUM 100 MG in IV NS 0.9% 100 ML IV SCH (12:54)
[2021-08-19] MEDS: AMPICILLIN /SULBACTAM 3 G in IV NS 0.9% 50 ML IJ SCH (15:05)
[2021-08-19 16:00] VITALS: BP 160/68
--- NOTE | 2021-08-19 16:00 | NUR ---
Called labs to follow up regarding Tobramycin trough results, and results are still pending, will follow up. Pharmacy made aware.
[2021-08-19] MEDS: Z GUARD REMEDY 2 OZ OINT TP PRN ×2 (16:02→17:13)
[2021-08-19] MEDS: AMLODIPINE BESYLATE 10 MG TABLET PO SCH (17:16)
--- NOTE | 2021-08-19 18:00 | NUR ---
Called laboratory for Tobramycin trough results spoke to Brad and he said he will double check and update the system once results are out, he also added that it was sent out to [facility]. Pharmacy made aware of the situation for Tobramycin dosing, spoke to Jeannine, verbalized understanding. Will endorse situation to next shift nurse.
--- NOTE | 2021-08-19 18:26 | NUR ---
RN CLOSING NOTES Patient in bed, responsive to tactile stimuli, breathing even and unlabored, no SOB, no apparent distress noted, no grimacing, remained afebrile during shift. Due medications given via gtube per MD order, tolerating well. Aspiration and seizure precautions observed, frequent visual checks rendered, frequent repositioning done. S/P hemodialysis this morning, no adverse effects noted, no s/s of bleeding at HD site, dressings dry and intact. All needs anticipated, kept clean and dry, call light left within reach, safety precautions in place, brakes locked, side rails up X 2, will endorse to next shift for continuity of care.
--- NOTE | 2021-08-19 19:00 | NUR ---
QUALITY CONTROL SUPERVISOR OPENING NOTE RECEIVED PT IN BED, AWAKE AND RESTING. PT'S DAUGHTER PRESENT. PT IS NONVERBAL, ON VENTILATION PORTEX #7, AC 14, TV 500, FIO2 30%, PEEP 5, EXTERNAL EMERGENCY ROOM RN SR @ 76, NO SOB OR RESPIRATORY DISTRESS NOTED, NO C/O PAIN AT THIS TIME. RESPIRATIONS EVEN AND UNLABORED. IV ACCESS NOTED IN LEFT UPPER ARM MIDLINE AND RIGHT SUBCLAVIAN HD CATH IN PLACE. . NGT IN PLACE, FLEXISEAL, AND PROCTOR CATHETER IN PLACE.FALL AND SAFETY MEASURES IN PLACE AND MAINTAINED AT ALL TIMES. BED ALARM, BED IN LOW AND LOCKED POSITION, HOB ELEVATED TO SEMI FOWLERS POSITION, CALL LIGHT AND TABLE WITHIN REACH. SIDE RAILS UP X2. WILL CONTINUE WITH PLAN OF CARE. Addendum: 08/19/21 at 2020 by KATHY LANDA RN QUALITY CONTROL SUPERVISOR OPENING NOTE RECEIVED PT IN BED, AWAKE AND RESTING. PT'S DAUGHTER PRESENT. PT IS NONVERBAL, ON VENTILATION PORTEX #7, AC 14, TV 500, FIO2 30%, PEEP 5, EXTERNAL EMERGENCY ROOM RN SR @ 78, NO SOB OR RESPIRATORY DISTRESS NOTED, NO C/O PAIN AT THIS TIME. RESPIRATIONS EVEN AND UNLABORED. IV ACCESS NOTED IN LEFT UPPER ARM MIDLINE AND RIGHT SUBCLAVIAN HD CATH IN PLACE. . PEG TUBE IN PLACE, FLEXISEAL, AND PROCTOR CATHETER IN PLACE. FALL AND SAFETY MEASURES IN PLACE AND MAINTAINED AT ALL TIMES. BED ALARM, BED IN LOW AND LOCKED POSITION, HOB ELEVATED TO SEMI FOWLERS POSITION, CALL LIGHT AND TABLE WITHIN REACH. SIDE RAILS UP X2. WILL CONTINUE WITH PLAN OF CARE.
[2021-08-19 20:00] VITALS: BP 144/55
[2021-08-19 21:06] LABS: OCCULT BLOOD STOOL NEGATIVE (NEGATIVE)
[2021-08-19] MEDS: LATANOPROST EYE DROP 0.005% 2.5 ML BOTTLE OP SCH (22:09)
[2021-08-20] VITALS: BP 124/54
--- NOTE | 2021-08-20 | NUR ---
BS 119. NO INSULIN ADMINISTERED PER SLIDING SCALE.
[2021-08-20] MEDS: BLOOD SUGAR DIAGNOSTIC 1 EACH STRIP IN SCH ×5 (00:56→23:21)
[2021-08-20] MEDS: INSULIN REGULAR, HUMAN 100 UNIT/ML 3 ML VIAL SQ PRN ×3 (00:59→12:02)
[2021-08-20] MEDS: IPRATROPIUM NEB FS 0.5 MG/2.5 ML AMPUL.NEB IH SCH ×4 (01:49→19:56)
[2021-08-20 04:00] VITALS: BP 147/50
[2021-08-20] MEDS: PHENYTOIN SODIUM IV 100 MG/2ML VIAL IV SCH ×3 (05:21→21:29)
[2021-08-20 06:16] LABS: BASOPHILS # (AUTO) 0.1 K/uL (0.0-0.2); BASOPHILS % (AUTO) 0.5 % (0.0-2.0); EOSINOPHILS % (AUTO) 1.3 % (0.0-6.0); HEMATOCRIT 23 % (33-45); HEMOGLOBIN 7.4 g/dL (11.5-14.8); LYMPHOCYTES # (AUTO) 1.8 K/uL (0.8-4.8); LYMPHOCYTES % (AUTO) 11.8 % (20.0-44.0); MEAN CORPUSCULAR HGB CONC 32 g/dl (31.0-36.0); MEAN CORPUSCULAR VOLUME 97 fL (82-100); MONOCYTES # (AUTO) 1.1 K/uL (0.1-1.30); MONOCYTES % (AUTO) 7.5 % (2.0-12.0); NEUTROPHILS # (AUTO) 12.2 K/uL (1.8-8.9); NEUTROPHILS % (AUTO) 78.9 % (43.0-81.0); PLATELET COUNT (AUTO) 476 K/uL (150-450); RED BLOOD CELL COUNT(AUTO) 2.37 MIL/uL (4.0-5.2); WHITE BLOOD COUNT (AUTO) 15.4 K/uL (4.3-11.0)
--- NOTE | 2021-08-20 06:30 | NUR ---
MACHINE SCALLOP CUTTER CLOSING NOTE PT REMAINED STABLE THROUGHOUT SHIFT. SR @ 66. WILL ENDORSE TO AM RN FOR OTIS.
[2021-08-20 07:00] LABS: CALCIUM, SERUM 10.1 mg/dL (8.5-10.1); CARBON DIOXIDE 26 mmol/L (21-32); CHLORIDE 104 mmol/L (98-107); CREATININE 1.8 mg/dL (0.6-1.3); GLUCOSE 129 mg/dL (74-106); MAGNESIUM 2.4 mg/dL (1.8-2.4); PHOSPHORUS 2.9 mg/dL (2.5-4.9); SODIUM SERUM 141 mmol/L (136-145); UREA NITROGEN, BLOOD 57 mg/dL (7-18)
--- NOTE | 2021-08-20 07:20 | NUR ---
RN NOTES Patient in bed, responsive to tactile stimuli, non-verbal, opens eyes. Breathing even and unlabored, no SOB, no apparent distress noted, no grimacing. Currently afebrile. Aspiration and seizure precautions observed. HD site w/ dressings dry and intact. Midline intact and patent. Safety precautions in place: call light within reach, brakes locked, side rails up X 2. Will continue to monitor.
[2021-08-20 08:00] VITALS: BP 148/60
[2021-08-20] MEDS: CHLORHEXIDINE GLUCONATE 15 ML UDC MM SCH ×2 (09:26→16:04)
[2021-08-20] MEDS: ISOSORBIDE DINITRATE (20MG) 20 MG TABLET PO SCH ×3 (09:26→16:10)
[2021-08-20] MEDS: LABETALOL HCL (100MG) 100 MG TABLET PO SCH ×2 (09:27→21:28)
[2021-08-20] MEDS: CARVEDILOL 12.5 MG TABLET PO SCH ×2 (09:28→21:28)
[2021-08-20] MEDS: DORZOLAMIDE OPTH 2% 10 ML BOTTLE OP SCH ×2 (09:30→16:08)
[2021-08-20] MEDS: SEVELAMER CARBONATE 800 MG TABLET PO SCH ×3 (09:53→17:41)
[2021-08-20] MEDS: METOCLOPRAMIDE HCL 10 MG TABLET PO SCH ×3 (09:53→17:34)
[2021-08-20] MEDS: PANTOPRAZOLE 40 MG TABLET.DR PO SCH (09:53)
[2021-08-20] MEDS: PROSOURCE / PROSTAT (PYXIS) 30 ML UDC GT SCH ×2 (09:55→16:04)
[2021-08-20] MEDS: DAKINS QUARTER STRENGTH (0.125%) 480 ML BOTTLE TOP SCH (09:56)
[2021-08-20] MEDS: PHENOBARBITAL 30 MG TABLET PO SCH ×2 (09:59→16:10)
--- NOTE | 2021-08-20 10:45 | NUR ---
RN NOTES SPOKE W/ PATIENT'S DTR AND UPDATED W/ PATIENT'S CURRENT CONDITION/PROGRESS.
--- NOTE | 2021-08-20 11:10 | NUR ---
RN NOTES PATIENT SEEN BY DR PASTOR TODAY.
[2021-08-20 12:00] VITALS: BP 127/60
[2021-08-20] MEDS: MICAFUNGIN SODIUM 100 MG in IV NS 0.9% 100 ML IV SCH (13:15)
[2021-08-20] MEDS: EPOETIN ALFA-EPBX 4,000 UNIT/ML VIAL IV SCH (14:35)
[2021-08-20] MEDS: CEFTAZIDIME/AVIBACTAM 0.94 GM in IV NS 0.9% 100 ML IV SCH (14:55)
--- NOTE | 2021-08-20 15:35 | NUR ---
RN NOTES DTR AT BEDSIDE. PATIENT WAS CLEANED AND REPOSITIONED IN BED. NOT IN ACUTE DISTRESS.
[2021-08-20 16:00] VITALS: BP 139/61
[2021-08-20] MEDS: NEPRO 1,000 ML BOTTLE GT PRN (16:04)
[2021-08-20] MEDS: AMPICILLIN /SULBACTAM 3 G in IV NS 0.9% 50 ML IJ SCH (16:04)
--- NOTE | 2021-08-20 16:44 | NUR ---
RN MS NOTES: Mao GAYLE with MICRO will be updating sensitivity results for AVYCAZ. Pending f/u re: SHELBY colon
[2021-08-20] MEDS: AMLODIPINE BESYLATE 10 MG TABLET PO SCH (17:34)
[2021-08-20] MEDS: ACETAMINOPHEN 325 MG TABLET PO PRN (17:35)
--- NOTE | 2021-08-20 18:40 | NUR ---
RN MS NOTES: STOOL SAMPLE COLLECT PER MD ORDER. STOOL LOOSE/MUSHY IN CONSISTENCY. SENT TO LAB
--- NOTE | 2021-08-20 19:30 | NUR ---
VISCOSE DEPARTMENT WORKER OPENING NOTEs RECEIVED PATIENT AWAKE RESTING IN BED WITH PATIENT'S DTR AT BEDSIDE. PT IS NONVERBAL. PATIENT IS ON A MECHANICAL VENT WITH THE SETTINGS FOLLOWED: AC 14, TV 500, FIO2 30%, PEEP 5 PATIENT'S IN NO RESPIRATORY DISTRESS AT THIS TIME.. PATIENT'S CONNECTED TO A TELE MONITOR SHOWING NO CARDIAC DISTRESS AT THIS TIME. LEFT UPPER ARM MIDLINE NOTED, WHICH IS INTACT, PATENT, AND FLUSHING WELL. RIGHT SUBCLAVIAN HD CATH IN PLACE. PATIENT'S ON A GT FEEDING RUNNING NEPRO AT 40 CC/HR. F/C & FLEXI-SEAL NOTED. PATIENT'S IN NO ACUTE DISTRESS AT THIS TIME. SAFETY MEASURES IN PLACE: BED LOCKED, BED ALARM ON, SIDE RAILS UPX3, AND CALL LIGHT WITHIN REACH OF THE PATIENT. WILL CONTINUE TO MONITOR THE PATIENT.
[2021-08-20 20:11] VITALS: BP 114/58
--- NOTE | 2021-08-20 20:21 | NUR ---
RT NOTE [facility]. Pt shows no signs of resp distress or sob. Trach is patent and secured. Pt sx'd for thick scant amt of clear secretions. Alarms are set and audible. ambu bag and emergency spare trach at bedside. Vent plugged into red outlet. Will continue to monitor closely. Addendum: 08/20/21 at 2021 by HERMELINDO PRUITT RT Amended: Links added.
[2021-08-20] MEDS: LATANOPROST EYE DROP 0.005% 2.5 ML BOTTLE OP SCH (21:29)
[2021-08-21 00:05] VITALS: BP 143/62
[2021-08-21] MEDS: IPRATROPIUM NEB FS 0.5 MG/2.5 ML AMPUL.NEB IH SCH ×4 (01:38→19:31)
[2021-08-21] MEDS: PHENYTOIN SODIUM IV 100 MG/2ML VIAL IV SCH ×3 (04:36→21:05)
[2021-08-21 05:00] VITALS: BP 158/59
[2021-08-21] MEDS: BLOOD SUGAR DIAGNOSTIC 1 EACH STRIP IN SCH ×3 (05:53→17:25)
--- NOTE | 2021-08-21 07:43 | NUR ---
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 PT IS OBTUNDED AND RESPONSIVE TO PAINFUL STIMULI. ON TRACH PORTEX # 7 CONNECTED TO MECHANICAL VENTILATOR AT SETTINGS OF AC TV 500, R 14, FI02 30% AND PEEP 5, SP02 100%. TELE-MONITOR SHOWS NSR WITH HR ON THE 70'S. G-TUBE FEEDING OF NEPRO AT 40ML/HR ONGOING, TOLERATING WELL. ASPIRATION PRECAUTIONS OBSERVED. XIOMARA MIDLINE INTACT, FLUSHED AND PATENT. RIGHT SUBCLAVIAN HD CATHETER IN PLACE WITH DRESSING C/D/I. PROCTOR IN PLACED WITH NO URINE OUTPUT NOTED AT THIS TIME. RECTAL FLEXI SEAL TUBE IN PLACE WITH BROWNISH WATERY STOOL NOTED. SAFETY MEASURES IN PLACE: BED IN LOWEST LOCKED POSITION, S/R UP X3 AND CALL LIGHT WITHIN REACH. ISOLATION PRECAUTIONS OBSERVED AT ALL TIMES. WILL CONTINUE TO MONITOR PT ACCORDINGLY.
[2021-08-21] MEDS: SEVELAMER CARBONATE 800 MG TABLET PO SCH ×3 (07:45→17:03)
[2021-08-21] MEDS: METOCLOPRAMIDE HCL 10 MG TABLET PO SCH ×3 (07:45→17:03)
[2021-08-21] MEDS: PANTOPRAZOLE 40 MG TABLET.DR PO SCH (07:45)
[2021-08-21 07:59] LABS: BASOPHILS # (AUTO) 0.1 K/uL (0.0-0.2); BASOPHILS % (AUTO) 0.6 % (0.0-2.0); EOSINOPHILS % (AUTO) 1.8 % (0.0-6.0); HEMATOCRIT 24 % (33-45); HEMOGLOBIN 7.6 g/dL (11.5-14.8); LYMPHOCYTES # (AUTO) 1.5 K/uL (0.8-4.8); LYMPHOCYTES % (AUTO) 9.3 % (20.0-44.0); MEAN CORPUSCULAR HGB CONC 32 g/dl (31.0-36.0); MEAN CORPUSCULAR VOLUME 97 fL (82-100); MONOCYTES % (AUTO) 6.1 % (2.0-12.0); NEUTROPHILS # (AUTO) 13.2 K/uL (1.8-8.9); NEUTROPHILS % (AUTO) 82.2 % (43.0-81.0); PLATELET COUNT (AUTO) 498 K/uL (150-450); RED BLOOD CELL COUNT(AUTO) 2.44 MIL/uL (4.0-5.2); WHITE BLOOD COUNT (AUTO) 16.1 K/uL (4.3-11.0)
[2021-08-21 08:00] VITALS: BP 165/63
[2021-08-21 08:50] LABS: CALCIUM, SERUM 10.4 mg/dL (8.5-10.1); CARBON DIOXIDE 25 mmol/L (21-32); CHLORIDE 103 mmol/L (98-107); CREATININE 2.4 mg/dL (0.6-1.3); GLUCOSE 145 mg/dL (74-106); MAGNESIUM 2.5 mg/dL (1.8-2.4); PHOSPHORUS 3.5 mg/dL (2.5-4.9); POTASSIUM 4.6 mmol/L (3.5-5.1); SODIUM SERUM 141 mmol/L (136-145); UREA NITROGEN, BLOOD 75 mg/dL (7-18)
[2021-08-21] MEDS: PROSOURCE / PROSTAT (PYXIS) 30 ML UDC GT SCH ×2 (09:21→16:26)
[2021-08-21] MEDS: CHLORHEXIDINE GLUCONATE 15 ML UDC MM SCH ×2 (09:21→16:38)
[2021-08-21] MEDS: PHENOBARBITAL 30 MG TABLET PO SCH ×2 (09:21→16:27)
[2021-08-21] MEDS: ISOSORBIDE DINITRATE (20MG) 20 MG TABLET PO SCH ×3 (09:25→17:03)
[2021-08-21] MEDS: CARVEDILOL 12.5 MG TABLET PO SCH ×2 (09:25→21:03)
[2021-08-21] MEDS: LABETALOL HCL (100MG) 100 MG TABLET PO SCH ×2 (09:25→21:04)
[2021-08-21] MEDS: DAKINS QUARTER STRENGTH (0.125%) 480 ML BOTTLE TOP SCH (09:40)
[2021-08-21] MEDS: DORZOLAMIDE OPTH 2% 10 ML BOTTLE OP SCH ×2 (09:40→17:00)
[2021-08-21 12:00] VITALS: BP 135/35
[2021-08-21] MEDS: INSULIN REGULAR, HUMAN 100 UNIT/ML 3 ML VIAL SQ PRN ×2 (12:10→17:28)
--- NOTE | 2021-08-21 12:10 | NUR ---
RN NOTES PT STARTED ON HEMODIALYSIS BY HD NURSE AGGIE. PT IN STABLE CONDITION.
[2021-08-21] MEDS: MICAFUNGIN SODIUM 100 MG in IV NS 0.9% 100 ML IV SCH (12:41)
--- NOTE | 2021-08-21 14:45 | NUR ---
RN NOTES HEMODIALYSIS FINISHED, WITH 1500ML UF. PER HD NURSE AGGIE, PT ONLY RECEIVED 2.5 HOURS OF TREATMENT TIME BECAUSE THE DIALYZER CLOTTED BECAUSE OF PT'S ELEVATED PLT. POST HD VITALS PER HD NURSE BP 94/34, P 76. NOT IN ACUTE DISTRESS. WILL CONTINUE TO MONITOR.
[2021-08-21 16:00] VITALS: BP 140/58
[2021-08-21] MEDS: AMPICILLIN /SULBACTAM 3 G in IV NS 0.9% 50 ML IJ SCH (16:18)
[2021-08-21] MEDS: AMLODIPINE BESYLATE 10 MG TABLET PO SCH (18:00)
--- NOTE | 2021-08-21 18:48 | NUR ---
COMPOSITION STONE APPLICATOR CLOSING NOTES PT IN BED LYING AT MODERATE HIGH BACK REST POSITION IN NO ACUTE SIGNS OF DISTRESS. PT IS RESPONSIVE TO TACTILE STIMULI, OPENS EYES, NON-VERBAL. ON TRACH PORTEX # 7 CONNECTED TO MECHANICAL VENTILATOR AT SETTINGS OF AC TV 500, R 14, FI02 30% AND PEEP 5, SP02 100%. TELE-MONITOR SHOWS NSR WITH HR ON 68. G-TUBE FEEDING OF NEPRO AT 40ML/HR ONGOING, TOLERATING WELL. ASPIRATION PRECAUTIONS OBSERVED. XIOMARA MIDLINE INTACT, FLUSHED AND PATENT. RIGHT SUBCLAVIAN HD CATHETER IN PLACE WITH DRESSING C/D/I. PROCTOR IN PLACED WITH NO URINE OUTPUT NOTED AT THIS TIME. RECTAL FLEXI SEAL TUBE IN PLACE WITH BROWNISH WATERY STOOL NOTED. SAFETY MEASURES IN PLACE: BED IN LOWEST LOCKED POSITION, S/R UP X3 AND CALL LIGHT WITHIN REACH. ISOLATION PRECAUTIONS OBSERVED AT ALL TIMES. WILL ENDORSE TO NEXT SHIFT.
--- NOTE | 2021-08-21 19:29 | NUR ---
SECURITY DEVELOPER OPENING NOTES RECEIVED PATIENT AWAKE RESTING IN BED WITH DTR AT BEDSIDE. PATIENT OPENS EYES AND IS NON-VERBAL. HAS A TRACH PORTEX # 7 CONNECTED TO MECHANICAL VENTILATOR WITH SETTINGS OF AC= 14, IP=357, FI02=30%, AND PEEP=5. PATIENT'S IN NO RESPIRATORY DISTRESS AT THIS TIME. PATIENT'S CONNECTED TO A TELE MONITOR SHOWING NO CARDIAC DISTRESS AT THIS TIME. ON A G-TUBE FEEDING OF NEPRO AT 40ML/HR ONGOING, TOLERATING WELL. ASPIRATION PRECAUTIONS OBSERVED. XIOMARA MIDLINE INTACT, PATENT, AND FLUSHING WELL. RIGHT SUBCLAVIAN HD CATHETER IN PLACE WITH DRESSING C/D/I. PROCTOR IN PLACE. RECTAL FLEXI SEAL TUBE IN PLACE. PATIENT'S IN NO ACUTE DISTRESS AT THIS TIME. SAFETY MEASURES IN PLACE: BED LOCKED, BED ALARM ON, S/R UP X3 AND CALL LIGHT WITHIN REACH OF THE PATIENT. ASPIRATION PRECAUTIONS OBSERVED. ISOLATION PRECAUTIONS OBSERVED AT ALL TIMES. WILL CONTINUE TO MONITOR THE PATIENT.
[2021-08-21 20:00] VITALS: BP_SYST 146; BP_SYST 153; BP_DIAS 63; BP_DIAS 68
[2021-08-21] MEDS: LATANOPROST EYE DROP 0.005% 2.5 ML BOTTLE OP SCH (21:05)
[2021-08-22] VITALS: BP 146/63
--- NOTE | 2021-08-22 00:19 | NUR ---
MS HERRING NOTES PATIENT'S BLOOD SUGAR AT THIS TIME WAS 94MG/Dl. WILL CONTINUE TO MONITOR THE PATIENT. Addendum: 08/22/21 at 0024 by SHUKRI HUERTA RN CONSTANTIN HERRING NOTES PATIENT'S BLOOD SUGAR AT THIS TIME WAS 94MG/Dl. WILL CONTINUE TO MONITOR THE PATIENT.
[2021-08-22] MEDS: BLOOD SUGAR DIAGNOSTIC 1 EACH STRIP IN SCH ×5 (00:21→23:44)
[2021-08-22] MEDS: ACETAMINOPHEN 325 MG TABLET PO PRN ×2 (00:38→15:57)
[2021-08-22] MEDS: IPRATROPIUM NEB FS 0.5 MG/2.5 ML AMPUL.NEB IH SCH ×4 (01:29→20:10)
[2021-08-22 04:00] VITALS: BP 104/63
[2021-08-22] MEDS: NEPRO 1,000 ML BOTTLE GT PRN (04:17)
[2021-08-22] MEDS: PHENYTOIN SODIUM IV 100 MG/2ML VIAL IV SCH ×3 (05:52→21:40)
--- NOTE | 2021-08-22 06:10 | NUR ---
INSIDE SALES RECRUITER NOTES PATIENT'S BLOOD SUGAR AT THIS TIME IS 105MG/DL. WILL CONTINUE TO MONITOR THE PATIENT.
[2021-08-22 06:51] LABS: BASOPHILS # (AUTO) 0.1 K/uL (0.0-0.2); BASOPHILS % (AUTO) 0.6 % (0.0-2.0); EOSINOPHILS % (AUTO) 1.4 % (0.0-6.0); HEMATOCRIT 23 % (33-45); HEMOGLOBIN 7.6 g/dL (11.5-14.8); LYMPHOCYTES # (AUTO) 1.7 K/uL (0.8-4.8); LYMPHOCYTES % (AUTO) 11.3 % (20.0-44.0); MEAN CORPUSCULAR HGB CONC 32 g/dl (31.0-36.0); MEAN CORPUSCULAR VOLUME 96 fL (82-100); MONOCYTES # (AUTO) 1.2 K/uL (0.1-1.30); NEUTROPHILS # (AUTO) 11.8 K/uL (1.8-8.9); NEUTROPHILS % (AUTO) 78.7 % (43.0-81.0); PLATELET COUNT (AUTO) 505 K/uL (150-450); RED BLOOD CELL COUNT(AUTO) 2.44 MIL/uL (4.0-5.2)
--- NOTE | 2021-08-22 07:20 | NUR ---
MANAGER WORKERS COMPENSATION OPENING NOTES PATIENT WAS SEEN AWAKE RESTING IN BED. PATIENT OPENS EYES AND IS NON-VERBAL. HAS A TRACH PORTEX # 7 CONNECTED TO MECHANICAL VENTILATOR WITH SETTINGS OF AC= 14, MO=295, FI02=30%, AND PEEP=5. PATIENT'S IN NO RESPIRATORY DISTRESS AT THIS TIME. PATIENT'S CONNECTED TO A TELE MONITOR SHOWING NO CARDIAC DISTRESS AT THIS TIME. ON A G-TUBE FEEDING OF NEPRO AT 40ML/HR ONGOING, TOLERATING WELL. ASPIRATION PRECAUTIONS OBSERVED. XIOMARA MIDLINE INTACT, PATENT, AND FLUSHING WELL. RIGHT SUBCLAVIAN HD CATHETER IN PLACE WITH DRESSING C/D/I. PROCTOR IN PLACE. RECTAL FLEXI SEAL TUBE IN PLACE. PATIENT'S IN NO ACUTE DISTRESS AT THIS TIME. SAFETY MEASURES IN PLACE: BED LOCKED, BED ALARM ON, S/R UP X3 AND CALL LIGHT WITHIN REACH OF THE PATIENT. ASPIRATION PRECAUTIONS OBSERVED. ISOLATION PRECAUTIONS OBSERVED AT ALL TIMES. ENDORSED CARE TO THE DAY SHIFT NURSE.
[2021-08-22] MEDS: SEVELAMER CARBONATE 800 MG TABLET PO SCH ×3 (07:39→18:00)
[2021-08-22] MEDS: PANTOPRAZOLE 40 MG TABLET.DR PO SCH (07:39)
[2021-08-22] MEDS: METOCLOPRAMIDE HCL 10 MG TABLET PO SCH ×3 (07:40→18:00)
--- NOTE | 2021-08-22 07:48 | NUR ---
JAPANESE PROFESSOR OPENING NOTES RECEIVED PT IN BED LYING AT MODERATE HIGH BACK REST POSITION IN NO ACUTE SIGNS OF DISTRESS. PT IS ASLEEP AND RESPONSIVE TO TACTILE STIMULI. ON TRACH PORTEX # 7 CONNECTED TO MECHANICAL VENTILATOR AT SETTINGS OF AC 14, TV 500, FI02 30% AND PEEP 5, SP02 100%. TELE-MONITOR SHOWS NSR WITH HR ON THE 70'S. G-TUBE FEEDING OF NEPRO AT 40ML/HR ONGOING, TOLERATING WELL. ASPIRATION PRECAUTIONS OBSERVED. XIOMARA MIDLINE INTACT, FLUSHED AND PATENT. RIGHT SUBCLAVIAN HD CATHETER IN PLACE WITH DRESSING C/D/I. PROCTOR IN PLACED WITH NO URINE OUTPUT NOTED AT THIS TIME. RECTAL FLEXI SEAL TUBE IN PLACE WITH BROWNISH WATERY STOOL NOTED. SAFETY MEASURES IN PLACE: BED IN LOWEST LOCKED POSITION, S/R UP X3 AND CALL LIGHT WITHIN REACH. ISOLATION PRECAUTIONS OBSERVED AT ALL TIMES. WILL CONTINUE TO MONITOR PT ACCORDINGLY.
[2021-08-22 07:55] LABS: CALCIUM, SERUM 10.1 mg/dL (8.5-10.1); CARBON DIOXIDE 26 mmol/L (21-32); CHLORIDE 101 mmol/L (98-107); GLUCOSE 120 mg/dL (74-106); MAGNESIUM 2.6 mg/dL (1.8-2.4); PHOSPHORUS 2.8 mg/dL (2.5-4.9); SODIUM SERUM 140 mmol/L (136-145); UREA NITROGEN, BLOOD 63 mg/dL (7-18)
[2021-08-22 08:00] VITALS: BP 150/59
--- NOTE | 2021-08-22 09:05 | NUR ---
RN NOTES PT STARTED ON HEMODIALYSIS BY HD NURSE TRAMAINE. PRE HD B/P 169/122, P 87. WILL CONTINUE TO MONITOR. Addendum: 08/22/21 at 1036 by PATRICIA WILSON RN WRONG ENTRY/WRONG PT
[2021-08-22] MEDS: PROSOURCE / PROSTAT (PYXIS) 30 ML UDC GT SCH ×2 (09:26→18:01)
[2021-08-22] MEDS: CHLORHEXIDINE GLUCONATE 15 ML UDC MM SCH ×2 (09:27→18:04)
[2021-08-22] MEDS: PHENOBARBITAL 30 MG TABLET PO SCH ×2 (09:28→18:00)
[2021-08-22] MEDS: DORZOLAMIDE OPTH 2% 10 ML BOTTLE OP SCH ×2 (09:28→18:01)
[2021-08-22] MEDS: ISOSORBIDE DINITRATE (20MG) 20 MG TABLET PO SCH ×3 (09:28→18:00)
[2021-08-22] MEDS: LABETALOL HCL (100MG) 100 MG TABLET PO SCH ×2 (09:29→21:40)
[2021-08-22] MEDS: CARVEDILOL 12.5 MG TABLET PO SCH ×2 (09:30→21:39)
[2021-08-22] MEDS: DAKINS QUARTER STRENGTH (0.125%) 480 ML BOTTLE TOP SCH (12:10)
[2021-08-22] MEDS: INSULIN REGULAR, HUMAN 100 UNIT/ML 3 ML VIAL SQ PRN ×3 (12:12→23:44)
[2021-08-22] MEDS: MICAFUNGIN SODIUM 100 MG in IV NS 0.9% 100 ML IV SCH (12:24)
[2021-08-22] MEDS: TOBRAMYCIN 80 MG in IV D5W 50 ML IV PRN (13:20)
[2021-08-22] MEDS: CEFTAZIDIME/AVIBACTAM 0.94 GM in IV NS 0.9% 100 ML IV SCH (15:43)
[2021-08-22] MEDS: EPOETIN ALFA-EPBX 4,000 UNIT/ML VIAL IV SCH (15:43)
[2021-08-22 16:00] VITALS: BP 156/70
[2021-08-22] MEDS: AMPICILLIN /SULBACTAM 3 G in IV NS 0.9% 50 ML IJ SCH (18:01)
[2021-08-22] MEDS: AMLODIPINE BESYLATE 10 MG TABLET PO SCH (18:04)
--- NOTE | 2021-08-22 18:49 | NUR ---
MENTAL HEALTH UNIT LEAD PSYCHOLOGIST CLOSING NOTES PT IN BED LYING AT MODERATE HIGH BACK REST POSITION IN NO ACUTE SIGNS OF DISTRESS. PT IS RESPONSIVE TO TACTILE STIMULI, OPENS EYES, NON-VERBAL. ON TRACH PORTEX # 7 CONNECTED TO MECHANICAL VENTILATOR AT SETTINGS OF AC TV 500, R 14, FI02 30% AND PEEP 5, SP02 100%. TELE-MONITOR SHOWS NSR WITH HR ON 68. G-TUBE FEEDING OF NEPRO AT 40ML/HR ONGOING, TOLERATING WELL. ASPIRATION PRECAUTIONS OBSERVED. XIOMARA MIDLINE INTACT, FLUSHED AND PATENT. RIGHT SUBCLAVIAN HD CATHETER IN PLACE WITH DRESSING C/D/I. PROCTOR IN PLACED WITH NO URINE OUTPUT NOTED AT THIS TIME. RECTAL FLEXI SEAL TUBE IN PLACE WITH BROWNISH WATERY STOOL NOTED. TURNED AND REPOSITIONERD [id number], WOUND TX DONE. SAFETY MEASURES IN PLACE: BED IN LOWEST LOCKED POSITION, S/R UP X3 AND CALL LIGHT WITHIN REACH. ISOLATION PRECAUTIONS OBSERVED AT ALL TIMES. WILL ENDORSE TO NEXT SHIFT.
[2021-08-22 20:00] VITALS: BP 161/83
--- NOTE | 2021-08-22 20:08 | NUR ---
RN NOTES RECEIVED PATIENT IN BED, VENTILATOR DEPENDENT, NO RESPIRATORY DISTRESS, CALM, GT FEEDING, NEPRO AT 40 ML/HR, TOLERATING WELL, RCW HD CATH, LAST HD 08/21/21, XIOMARA MIDLINE HEPLOC, FLEXI-SEAL, LIQUID STOOL, MULTIPLE WOUNDS NOTED, KEPT SAFE, WILL CONTINUE TO MONITOR.
[2021-08-22] MEDS: LATANOPROST EYE DROP 0.005% 2.5 ML BOTTLE OP SCH (21:42)
--- NOTE | 2021-08-23 00:22 | NUR ---
RN NOTE TYLENOL GIVEN FOR TEMP 100.8 WILL RECHECK TEMP AT A LATER TIME
[2021-08-23] MEDS: IPRATROPIUM NEB FS 0.5 MG/2.5 ML AMPUL.NEB IH SCH ×4 (01:26→20:01)
[2021-08-23 01:28] VITALS: BP 142/63
[2021-08-23] MEDS: ACETAMINOPHEN 325 MG TABLET PO PRN ×2 (01:51→21:32)
[2021-08-23] MEDS: PHENYTOIN SODIUM IV 100 MG/2ML VIAL IV SCH ×3 (04:13→21:33)
[2021-08-23] MEDS: NEPRO 1,000 ML BOTTLE GT PRN (04:26)
--- NOTE | 2021-08-23 05:03 | NUR ---
RT PT RECVD ON AC VENT SETTINGS RR 14 VT 500 30% FIO2, PEEP+5 WITH DAUGHTER AT BEDSIDE. TRACH IS PATENT AND SECURED. TX GIVEN AND PT RESHMA WELL. SUCTION DONE Q2 / PRN, PT DAUGHTER REQUESTED WE USE SUCTION CATHETER SHE BROUGHT INSTEAD OF XANDER FOR ORAL SUCTION. DAUGHTER ALSO ADDRESSED REDNESS UNDER TRACH TIE ON RIGHT SIDE. RN MELANIE INFORMED. LLOYD AND TRACH CARE DONE. AMBU BAG AND SPARE TRACH AT BEDSIDE, VENT PLUGGED INTO RED OUTLET WITH ALARMS ON AND AUDIBLE.
[2021-08-23] MEDS: BLOOD SUGAR DIAGNOSTIC 1 EACH STRIP IN SCH ×4 (05:36→23:55)
[2021-08-23] MEDS: INSULIN REGULAR, HUMAN 100 UNIT/ML 3 ML VIAL SQ PRN ×2 (05:37→11:51)
[2021-08-23 06:35] VITALS: BP 123/49
--- NOTE | 2021-08-23 06:39 | NUR ---
RN NOTES ALERT/AWAKE, NON-VERBAL, VENTILATOR DEPENDENT, SPO2 100%, NO DISTRESS, VS STABLE, 0400H TEMP 99.5 GIVEN TYLENOL, AT 0630 TEMP 97.7F, PROCTOR CATHETER, SCANT URINE OUTPUT, LIQUID STOOL DRAINING VIA FLEXI-SEAL, CDIFF NEGATIVE. BG STABLE, AT HS AND 0500, NO INSULIN COVERAGE GIVEN, CONTINUE ANTIBIOTICS, MONITOR FOR FEVER, MONITOR LABS.
--- NOTE | 2021-08-23 07:30 | NUR ---
COIL STRAPPER OPENING NOTE RECEIVED PT IN BED WITH EYES CLOSED. NO SOB OR S/S OF RESPIRATORY DISTRESS NOTED. PT OPENS EYES UPON TACTILE STIMULI AND CALLING HER NAME IN FAROESE LANGUAGE. NO SOB OR S/S OF RESPIRATORY DISTRESS NOTED. PT ON CONTACT PRECAUTIONS DUE TO PSEUDOMONAS OF THE SACRAL WOUND. PT NOTED ON EXTERNAL HEAT TREATMENT TECHNICIAN READING SR HR 82. PT NOTED ON MECHANICAL VENTILATOR, SPO2-100%, TRACH P#7, AC-14, TV- 500, FI02-30. PT WITH PEG TUBE NEPRO RUNNING AT 40 ML/HR, INTACT AND PATENT. XIOMARA-MIDLINE INTACT AND PATENT, RUC-HD PORT DRESSING C/D/I. PROCTOR CATH INTACT AND PATENT. FLEXISEAL INTACT AND PATENT. SAFETY PRECAUTIONS MAINTAINED. BED IN LOWEST LOCKED POSITION, HOB ELEVATED, SIDE RAILS UPX3. CALL LIGHT AND TABLE WITHIN REACH. WILL CONTINUE WITH PLANOF CARE.
[2021-08-23] MEDS: PANTOPRAZOLE 40 MG TABLET.DR PO SCH (08:08)
[2021-08-23] MEDS: PHENOBARBITAL 30 MG TABLET PO SCH ×2 (08:41→16:05)
[2021-08-23] MEDS: SEVELAMER CARBONATE 800 MG TABLET PO SCH ×3 (08:41→17:08)
[2021-08-23] MEDS: METOCLOPRAMIDE HCL 10 MG TABLET PO SCH ×3 (08:42→17:08)
[2021-08-23] MEDS: CARVEDILOL 12.5 MG TABLET PO SCH ×2 (08:43→21:33)
[2021-08-23] MEDS: ISOSORBIDE DINITRATE (20MG) 20 MG TABLET PO SCH ×3 (08:43→16:14)
[2021-08-23] MEDS: LABETALOL HCL (100MG) 100 MG TABLET PO SCH ×2 (08:43→21:32)
[2021-08-23] MEDS: CHLORHEXIDINE GLUCONATE 15 ML UDC MM SCH ×2 (08:45→17:19)
[2021-08-23] MEDS: DAKINS QUARTER STRENGTH (0.125%) 480 ML BOTTLE TOP SCH (08:46)
[2021-08-23] MEDS: PROSOURCE / PROSTAT (PYXIS) 30 ML UDC GT SCH ×2 (08:48→16:05)
[2021-08-23] MEDS: DORZOLAMIDE OPTH 2% 10 ML BOTTLE OP SCH ×2 (08:48→17:19)
[2021-08-23] MEDS: MICAFUNGIN SODIUM 100 MG in IV NS 0.9% 100 ML IV SCH (12:17)
[2021-08-23 12:40] LABS: CALCIUM, SERUM 10.1 mg/dL (8.5-10.1); CARBON DIOXIDE 25 mmol/L (21-32); CHLORIDE 101 mmol/L (98-107); CREATININE 2.5 mg/dL (0.6-1.3); GLUCOSE 138 mg/dL (74-106); SODIUM SERUM 139 mmol/L (136-145)
[2021-08-23 12:42] LABS: UREA NITROGEN, BLOOD 80 mg/dL (7-18)
--- NOTE | 2021-08-23 12:49 | NUR ---
RN NOTE RECEIVED LAB VALUE FOR BUN 80. LAB VALUE REPORTED BY SUJEY. READ BACK PROVIDED. CHARGE NURSE SHANA AND SURVEY OPERATIONS DIRECTOR DARBY MADE AWARE. AWAITING ORDERS. WILL CONTINUE TO MONITOR.
[2021-08-23] MEDS: AMPICILLIN /SULBACTAM 3 G in IV NS 0.9% 50 ML IJ SCH (15:07)
[2021-08-23 16:00] VITALS: BP 147/61
[2021-08-23] MEDS: AMLODIPINE BESYLATE 10 MG TABLET PO SCH (17:08)
--- NOTE | 2021-08-23 18:45 | NUR ---
SHIP PROPELLER FINISHER CLOSING NOTE PT IS IN BED AND OPENS EYES UPON TACTILE STIMULI AND CALLING HER NAME IN SOMALI LANGUAGE. NO SOB OR S/S OF RESPIRATORY DISTRESS NOTED. PT ON CONTACT PRECAUTIONS DUE TO PSEUDOMONAS OF THE SACRAL WOUND. PT NOTED ON EXTERNAL LONGWALL FOREMAN READING SR 82 BPM. PT NOTED ON MECHANICAL VENTILATOR WITH PRESCRIBED SETTINGS: SPO2-100%, TRACH P#7, AC-14, TV-500, FI02-30, PEEP-5. PT NOTED WITH GTUBE, NEPRO RUNNING AT 40 ML/HR, INTACT AND PATENT. IV ACCESS IN XIOMARA MIDLINE, INTACT AND PATENT. RCW HD CATH INTACT, DRESSING C/D/I. PROCTOR CATH IN PLACE. FLEXI-SEAL INTACT AND PATENT. ALL NEEDS HAVE BEEN MET. SAFETY PRECAUTIONS MAINTAINED AT ALL TIMES. BED IN LOWEST LOCKED POSITION, HOB ELEVATED, SIDE RAILS UP X3. CALL LIGHT AND TABLE WITHIN REACH. WILL ENDORSE TO ONCOMING NURSE FOR OTIS.
--- NOTE | 2021-08-23 19:30 | NUR ---
RN OPENING NOTE PATIENT IN BED, EYES CLOSED. PATIENT NON VERBAL. DTR.PATIENT IS CONNECTED TO [facility] VENT, TRACH PRESENT AC 14, TV 500, FI02 30, PEEP 5. TELE MONITOR READS SR 79 BPM. PATIENT HAS A FLEXISEAL AND PROCTOR CATH PRESENT DRAINING VIA GRAVITY. PATIENT ON GT NEPRO AT 40 ML/HR, TOLERATING WELL WITH RESIDUAL OF 10 ML, FLUSHED BACK. PATIENT HAS A XIOMARA MIDLINE 20 G , SL AND RCW HD CATH PRESENT. SAFETY MEASURES IN PLACE: BED LOCKED AND IN LOWEST POSITION, CALL LIGHT WITHIN REACH, SIDE RAILS UP. WILL MONITOR PATIENT CLOSELY, HOB ELEVATED.
[2021-08-23 20:10] LABS: BASOPHILS # (AUTO) 0.1 K/uL (0.0-0.2); BASOPHILS % (AUTO) 0.4 % (0.0-2.0); EOSINOPHILS % (AUTO) 1.5 % (0.0-6.0); HEMATOCRIT 22 % (33-45); LYMPHOCYTES # (AUTO) 1.4 K/uL (0.8-4.8); LYMPHOCYTES % (AUTO) 9.8 % (20.0-44.0); MEAN CORPUSCULAR HGB CONC 32 g/dl (31.0-36.0); MEAN CORPUSCULAR VOLUME 97 fL (82-100); MONOCYTES % (AUTO) 7.1 % (2.0-12.0); NEUTROPHILS # (AUTO) 11.7 K/uL (1.8-8.9); NEUTROPHILS % (AUTO) 81.2 % (43.0-81.0); PLATELET COUNT (AUTO) 517 K/uL (150-450); RED BLOOD CELL COUNT(AUTO) 2.25 MIL/uL (4.0-5.2); WHITE BLOOD COUNT (AUTO) 14.4 K/uL (4.3-11.0)
--- NOTE | 2021-08-23 20:24 | NUR ---
RT NOTE PT RECEIVED TRACHED ON MECHANICAL VENTILATION. CUFF INFLATED. HHN TX GIVEN, NO ADVERSE REACTIONS NOTED. SX DONE, TRACH SECURED AND PATENT. VENT PLUGGED TO RED OUTLET. ALARMS ON AND AUDIBLE. CONT. PULSE OX CONNECTED. NO SOB NOTED AT THIS TIME. WILL CONTINUE TO MONITOR. Addendum: 08/23/21 at 2024 by ALANA WOOD RT Amended: Links added.
[2021-08-23 20:26] VITALS: BP 138/57
--- NOTE | 2021-08-23 20:30 | NUR ---
RN NOTE NOTIFIED BY LAB THAT HGB 7.0 AND HCT 22. COMMUNICATED LAB VALUES TO DR. VILLEGAS, ORDERED 1 UNIT OF PRBC TO BE TRANSFUSED. WILL CONTINUE TO MONITOR PATIENT.
[2021-08-23] MEDS: LATANOPROST EYE DROP 0.005% 2.5 ML BOTTLE OP SCH (21:34)
--- NOTE | 2021-08-23 22:31 | NUR ---
RN NOTE LINE INSTALLATION SUPERVISOR NANCI CALLED AT [phone] TO NOTIFY NURSING THAT THERE IS NO AVAILABLE PERSONNEL AT THIS TIME TO DO TYPE AND SCREEN AND THAT THEY WOULD HAVE TO SEND OUT SPECIMEN TO [facility]. NOTIFIED DR. VILLEGAS OF SITUATION AT THIS TIME, NO NEW ORDERS AND SAID OKAY ON SITUATION. WILL MONITOR PATIENT CLOSELY.
--- NOTE | 2021-08-23 23:56 | NUR ---
RN NOTE BS 94 MG/DL. NO COVERAGE GIVEN. PATIENT ON CONTINUOUS TF.
[2021-08-24] VITALS (9 sets, daily range): BP systolic 122–175; BP diastolic 48–72
[2021-08-24] MEDS: IPRATROPIUM NEB FS 0.5 MG/2.5 ML AMPUL.NEB IH SCH ×4 (01:38→20:43)
[2021-08-24] MEDS: NEPRO 1,000 ML BOTTLE GT PRN (02:04)
[2021-08-24] MEDS: PHENYTOIN SODIUM IV 100 MG/2ML VIAL IV SCH ×3 (05:16→21:31)
[2021-08-24] MEDS: BLOOD SUGAR DIAGNOSTIC 1 EACH STRIP IN SCH ×3 (05:16→18:07)
--- NOTE | 2021-08-24 05:33 | NUR ---
RN NOTE PATIENT'S BS 113 MG/DL, NO COVERAGE GIVEN. WILL MONITOR PATIENT CLOSELY. PATIENT ON CONTINUOUS TUBE FEEDING.
--- NOTE | 2021-08-24 06:55 | NUR ---
RN CLOSING NOTE PATIENT IN BED, EYES CLOSED. PATIENT NON VERBAL, OPENS EYES WITH TOUCH. PATIENT IS CONNECTED TO [facility] VENT, TRACH PRESENT AC 14, TV 500, FI02 30, PEEP 5. TELE MONITOR READS SR 81 BPM. PATIENT HAS A FLEXISEAL AND PROCTOR CATH PRESENT DRAINING VIA GRAVITY. PATIENT ON GT NEPRO AT 40 ML/HR, TOLERATING WELL. PATIENT HAS A XIOMARA MIDLINE 20 G , SL AND RCW HD CATH PRESENT. FEVER MANAGED WITH TYLENOL AND COOLING MEASURES. SAFETY MEASURES IN PLACE: BED LOCKED AND IN LOWEST POSITION, CALL LIGHT WITHIN REACH, SIDE RAILS UP, HOB ELEVATED. ALL NEEDS MET AND ATTENDED. ALL ORDERS CARRIED OUT. WILL ENDORSE TO DAY SHIFT NURSE FOR OTIS.
[2021-08-24 07:28] LABS: BASOPHILS # (AUTO) 0.1 K/uL (0.0-0.2); BASOPHILS % (AUTO) 0.5 % (0.0-2.0); HEMATOCRIT 21 % (33-45); LYMPHOCYTES # (AUTO) 1.4 K/uL (0.8-4.8); LYMPHOCYTES % (AUTO) 8.5 % (20.0-44.0); MEAN CORPUSCULAR HGB CONC 32 g/dl (31.0-36.0); MEAN CORPUSCULAR VOLUME 96 fL (82-100); MONOCYTES # (AUTO) 1.3 K/uL (0.1-1.30); MONOCYTES % (AUTO) 8.1 % (2.0-12.0); NEUTROPHILS # (AUTO) 13.1 K/uL (1.8-8.9); NEUTROPHILS % (AUTO) 80.9 % (43.0-81.0); PLATELET COUNT (AUTO) 534 K/uL (150-450); RED BLOOD CELL COUNT(AUTO) 2.23 MIL/uL (4.0-5.2); WHITE BLOOD COUNT (AUTO) 16.1 K/uL (4.3-11.0)
--- NOTE | 2021-08-24 07:37 | NUR ---
RN OPENING NOTE PATIENT SLEEP IN BED RESTING. AWAKEN TO VERBAL STIMULI. NON-VERBAL. NO S/S OF PAIN NOTED AT THIS TIME. . PATIENT ON VENT, TRACH PRESENT AC 14, TV 500, FIO2 30, PEEP 5. IV ACCESS XIOMARA MIDLINE #20G SL AND RCW HD CATH. PATIENT HAS FLEXISEAL AND PROCTOR CATH. FALL AND SAFETY MEASURES IN PLACE, BED ALARM ON, BED IN LOW AND LOCK POSITION, CALL LIGHT AND TABLE WITHIN EASY REACH, SIDE RAILS UP X2. WILL CONTINUE TO MONITOR.
[2021-08-24 08:08] LABS: CALCIUM, SERUM 10.2 mg/dL (8.5-10.1); CARBON DIOXIDE 25 mmol/L (21-32); CHLORIDE 101 mmol/L (98-107); GLUCOSE 128 mg/dL (74-106); MAGNESIUM 2.7 mg/dL (1.8-2.4); PHOSPHORUS 3.6 mg/dL (2.5-4.9); POTASSIUM 4.4 mmol/L (3.5-5.1); SODIUM SERUM 141 mmol/L (136-145)
[2021-08-24 08:18] LABS: HEMOGLOBIN 6.9 g/dL (11.5-14.8)
[2021-08-24 08:19] LABS: CREATININE 2.9 mg/dL (0.6-1.3)
[2021-08-24 08:21] LABS: UREA NITROGEN, BLOOD 87 mg/dL (7-18)
[2021-08-24 08:46] LABS: IRON, SERUM 30 ug/dl (50-175); TOTAL IRON BINDING CAPACITY 122 ug/dl (250-450)
[2021-08-24] MEDS: PHENOBARBITAL 30 MG TABLET PO SCH ×2 (09:15→18:05)
[2021-08-24] MEDS: ISOSORBIDE DINITRATE (20MG) 20 MG TABLET PO SCH ×3 (09:16→17:00)
[2021-08-24] MEDS: PROSOURCE / PROSTAT (PYXIS) 30 ML UDC GT SCH ×2 (09:17→18:03)
[2021-08-24] MEDS: CARVEDILOL 12.5 MG TABLET PO SCH ×2 (09:17→20:24)
[2021-08-24] MEDS: LABETALOL HCL (100MG) 100 MG TABLET PO SCH ×2 (09:17→20:25)
[2021-08-24] MEDS: CHLORHEXIDINE GLUCONATE 15 ML UDC MM SCH ×2 (09:18→17:00)
[2021-08-24] MEDS: DORZOLAMIDE OPTH 2% 10 ML BOTTLE OP SCH ×2 (09:19→18:04)
[2021-08-24] MEDS: PANTOPRAZOLE 40 MG TABLET.DR PO SCH (09:24)
[2021-08-24] MEDS: SEVELAMER CARBONATE 800 MG TABLET PO SCH ×3 (09:24→18:05)
[2021-08-24] MEDS: DAKINS QUARTER STRENGTH (0.125%) 480 ML BOTTLE TOP SCH (09:24)
[2021-08-24] MEDS: METOCLOPRAMIDE HCL 10 MG TABLET PO SCH ×3 (09:25→18:05)
[2021-08-24] MEDS ORDERED: EPOETIN ALFA-EPBX 10,000 UNIT/ML VIAL IV ONE (15:00)
[2021-08-24] MEDS: CEFTAZIDIME/AVIBACTAM 0.94 GM in IV NS 0.9% 100 ML IV SCH (15:26)
[2021-08-24] MEDS: AMPICILLIN /SULBACTAM 3 G in IV NS 0.9% 50 ML IJ SCH (16:00)
[2021-08-24 16:59] LABS: EOSINOPHILS % (MANUAL) 3 % (0-4); LYMPHOCYTES % (MANUAL) 9 % (16-48); MONOCYTES % (MANUAL) 9 % (0-11.0); NEUTROPHILS % (MANUAL) 79 (42-76)
[2021-08-24] MEDS: AMLODIPINE BESYLATE 10 MG TABLET PO SCH (18:00)
[2021-08-24] MEDS: INSULIN REGULAR, HUMAN 100 UNIT/ML 3 ML VIAL SQ PRN (18:33)
--- NOTE | 2021-08-24 18:48 | NUR ---
RN CLOSING NOTE PATIENT SLEEP IN BED RESTING. AWAKEN TO VERBAL STIMULI. NON-VERBAL. FAMILY IN THE ROOM NO S/S OF PAIN NOTED AT THIS TIME. . PATIENT ON VENT, TRACH PRESENT AC 14, TV 500, FIO2 30, PEEP 5. IV ACCESS XIOMARA MIDLINE #20G SL AND RCW HD CATH. PATIENT HAS FLEXISEAL AND PROCTOR CATH. FALL AND SAFETY MEASURES IN PLACE, BED ALARM ON, BED IN LOW AND LOCK POSITION, CALL LIGHT AND TABLE WITHIN EASY REACH, SIDE RAILS UP X2. WILL ENDORSE TO CENTRAL OFFICE FRAME WIRER.
--- NOTE | 2021-08-24 19:40 | NUR ---
DRAPERY EXAMINER OPENING NOTES: RECEIVED PATIENT SLEEP IN BED COMFORTABLY, BED IN LOW POSITION, CALL LIGHTS WITHIN REACH, NO COMPLAIN OF PAIN AND DISCOMFORT AT THIS TIME, ACCOMPANIED BY FAMILY, PATIENT IS ON TELE MONITORING SR-81, NO COMPLAIN OF PAIN AND DISCOMFORT AT THIS TIME, NO FACIAL GRIMACING WAS OBSERVED, WITH HEMODIALYSIS DONE TODAY, 1800 OUTPUT, PATIENT WITH NASEEM MIDLINE WITH ONGOING BLOOD TRANSFUSION OF 1 PRBC FOR HGB 6.9 ON GT FEEDING OF NEPHRO 1.8 @40CC/HR INFUSING WELL, PATIENT HAS PROCTOR CATH 30CC URINE OUTPUT AND ON FLEXI SEAL, PATIENT KEPT CLEAN AND DRY, ALL NEEDS MET, WILL CONTINUE TO MONITOR.
[2021-08-24] MEDS ORDERED: TOBRAMYCIN 80 MG in IV NS 0.9% 50 ML IV PRN (21:00)
--- NOTE | 2021-08-24 21:45 | NUR ---
SCRAP DEALER NOTES: BLOOD TRANSFUSION DONE AT 2135 V/S ARE FOLLOWS: BP-172/66, P-83, RR-20, O2-100%, TEMP--98.3 NO SOB OR ANY ADVERSE REACTION NOTED.
[2021-08-24] MEDS: LATANOPROST EYE DROP 0.005% 2.5 ML BOTTLE OP SCH (23:41)
[2021-08-25] VITALS: BP 149/55
[2021-08-25] MEDS: ACETAMINOPHEN 325 MG TABLET PO PRN ×2 (00:46→21:53)
--- NOTE | 2021-08-25 00:46 | NUR ---
LEAD OXIDE MILL TENDER NOTES: PATIENT TEMP 100.4 PRN ACETAMINOPHEN 650MG GIVEN FOR FEVER
[2021-08-25] MEDS: IPRATROPIUM NEB FS 0.5 MG/2.5 ML AMPUL.NEB IH SCH ×4 (02:51→20:25)
[2021-08-25 04:00] VITALS: BP 137/56
[2021-08-25] MEDS: PHENYTOIN SODIUM IV 100 MG/2ML VIAL IV SCH ×3 (06:22→21:12)
[2021-08-25] MEDS: NEPRO 1,000 ML BOTTLE GT PRN (06:35)
[2021-08-25] MEDS: BLOOD SUGAR DIAGNOSTIC 1 EACH STRIP IN SCH ×4 (06:37→19:05)
[2021-08-25 07:22] LABS: CALCIUM, SERUM 9.6 mg/dL (8.5-10.1); CARBON DIOXIDE 24 mmol/L (21-32); CHLORIDE 101 mmol/L (98-107); CREATININE 1.8 mg/dL (0.6-1.3); GLUCOSE 145 mg/dL (74-106); MAGNESIUM 2.4 mg/dL (1.8-2.4); PHOSPHORUS 2.7 mg/dL (2.5-4.9); POTASSIUM 3.6 mmol/L (3.5-5.1); SODIUM SERUM 139 mmol/L (136-145); UREA NITROGEN, BLOOD 53 mg/dL (7-18)
[2021-08-25 07:36] LABS: BASOPHILS # (AUTO) 0.1 K/uL (0.0-0.2); BASOPHILS % (AUTO) 0.4 % (0.0-2.0); HEMATOCRIT 25 % (33-45); LYMPHOCYTES # (AUTO) 1.6 K/uL (0.8-4.8); LYMPHOCYTES % (AUTO) 9.7 % (20.0-44.0); MEAN CORPUSCULAR HGB CONC 32 g/dl (31.0-36.0); MEAN CORPUSCULAR VOLUME 94 fL (82-100); MONOCYTES # (AUTO) 1.4 K/uL (0.1-1.30); NEUTROPHILS # (AUTO) 12.6 K/uL (1.8-8.9); NEUTROPHILS % (AUTO) 78.9 % (43.0-81.0); PLATELET COUNT (AUTO) 572 K/uL (150-450); RED BLOOD CELL COUNT(AUTO) 2.67 MIL/uL (4.0-5.2)
--- NOTE | 2021-08-25 07:36 | NUR ---
SUSTAINABILITY DIRECTOR CLOSING NOTES: PATIENT SLEEP IN BED COMFORTABLY, BED IN LOW POSITION. CALL LIGHTS WITHIN REACH, NO COMPLAIN OF PAIN AND DISCOMFORT AT THIS TIME, NO FACIAL GRIMACING, ON GTUBE FEEDING NEPHRO 40ML/HR INFUSING WELL FLUSH 80 CC X2 TO KEEP PATENT AND FLOWING, PATIENT ON FLEXI WITH 400CC OUTPUT ON FOLY CATHETER WITH 300CC URINE OUTPUT, SACRAL DRESSING CH[place] [address] NO ADVERSE REACTION OBSERVED, PATIENT KEPT CLEAN AND DRY, ALL NEEDS MET, ENDORSE TO INCOMING SHIFT.
--- NOTE | 2021-08-25 07:46 | NUR ---
RN OPENING NOTE PATIENT SLEEP IN BED RESTING. AWAKEN TO VERBAL STIMULI. NON-VERBAL. NO S/S OF PAIN NOTED AT THIS TIME. . PATIENT ON VENT, TRACH PRESENT AC 14, TV 500, FIO2 30, PEEP 5. IV ACCESS XIOMARA MIDLINE #20G SL AND RCW HD CATH. PATIENT HAS FLEXISEAL AND PROCTOR CATH. FALL AND SAFETY MEASURES IN PLACE, BED ALARM ON, BED IN LOW AND LOCK POSITION, CALL LIGHT WITHIN EASY REACH, SIDE RAILS UP X2. WILL CONTINUE TO MONITOR.
[2021-08-25 08:00] VITALS: BP 137/55
[2021-08-25] MEDS: PROSOURCE / PROSTAT (PYXIS) 30 ML UDC GT SCH ×2 (08:26→18:03)
[2021-08-25] MEDS: PHENOBARBITAL 30 MG TABLET PO SCH ×2 (08:28→18:05)
[2021-08-25] MEDS: LABETALOL HCL (100MG) 100 MG TABLET PO SCH ×2 (08:28→20:30)
[2021-08-25] MEDS: SEVELAMER CARBONATE 800 MG TABLET PO SCH ×3 (08:28→18:04)
[2021-08-25] MEDS: PANTOPRAZOLE 40 MG TABLET.DR PO SCH (08:28)
[2021-08-25] MEDS: METOCLOPRAMIDE HCL 10 MG TABLET PO SCH ×3 (08:29→18:05)
[2021-08-25] MEDS: CARVEDILOL 12.5 MG TABLET PO SCH ×2 (08:29→20:29)
[2021-08-25] MEDS: DORZOLAMIDE OPTH 2% 10 ML BOTTLE OP SCH ×2 (08:30→18:03)
[2021-08-25] MEDS: ISOSORBIDE DINITRATE (20MG) 20 MG TABLET PO SCH ×3 (08:30→18:04)
[2021-08-25] MEDS: CHLORHEXIDINE GLUCONATE 15 ML UDC MM SCH ×2 (08:31→17:00)
[2021-08-25] MEDS: DAKINS QUARTER STRENGTH (0.125%) 480 ML BOTTLE TOP SCH (08:50)
[2021-08-25 10:33] LABS: LYMPHOCYTES % (MANUAL) 9 % (16-48); MONOCYTES % (MANUAL) 6 % (0-11.0); MYELOCYTES % 3 % (0-0); NEUTROPHILS % (MANUAL) 82 (42-76)
[2021-08-25 12:00] VITALS: BP 141/56
[2021-08-25] MEDS: INSULIN REGULAR, HUMAN 100 UNIT/ML 3 ML VIAL SQ PRN (12:44)
[2021-08-25] MEDS ORDERED: RXTOB XX (13:17)
[2021-08-25] MEDS ORDERED: CEFT2.5V IV (13:17)
[2021-08-25] MEDS ORDERED: AMPI3VIA IJ (13:17)
[2021-08-25] MEDS: EPOETIN ALFA-EPBX 4,000 UNIT/ML VIAL IV SCH (15:07)
[2021-08-25] MEDS: AMPICILLIN /SULBACTAM 3 G in IV NS 0.9% 50 ML IJ SCH (15:22)
[2021-08-25 16:00] VITALS: BP 129/58
--- NOTE | 2021-08-25 16:54 | NUR ---
RN NOTE DISCHARGE TRANSPORTATION CANCELLED. FAMILY FILING APPEALL. CM, CN, AND NOTIFIED. OKAYED FOR PT TO BE HELD FOR THE NIGHT. WILL CONTINUE TO MONITOR.
[2021-08-25] MEDS: AMLODIPINE BESYLATE 10 MG TABLET PO SCH (18:06)
--- NOTE | 2021-08-25 19:00 | NUR ---
RN NOTE PT ASLEEP IN BED RESTING. V/S STABLE. UNAROUSABLE AND OBTUNDED. VENT SETTINGS CHECKED. ON ROLLED GOLD PLATER. NO EDEMA PRESENT. FLEXISEAL PRESENT. F/C PRESENT. HD PLANNED FOR TOMORROW. BEDBOUND. SKIN ISSUES PRESENT. WOUND TX GIVEN. G/T PRESENT. NEPHRO RUNNING AT 40 ML/HR. IV PRESENT ON XIOMARA MIDLINE 20G. LABS AND ORDERS REVIEWED. SAFETY MEASURES IN PLACE. SIDE RAILS RAISED. BED LOWERED. CALL LIGHT WITHIN REACH. WILL CONTINUE TO MONITOR.
--- NOTE | 2021-08-25 19:40 | NUR ---
RN NOTE RECEIVED PATIENT IN BED RESTING OBTUNDED NONVERBAL ON MECHANICAL VENT ON G-TUBE FEEDING NEPHRO 40CC/HR CHECKED PLACEMENT IN PLACE NO RESIDUAL NOTED, ON PROCTOR CATHETER IN PLACE,NO URINE, ON RECTAL TUBE IN PLACE,IV SITE IS ON LEFT UPPER ARM INTACT PATENT,SAFETY MEASURE IMPLEMENT HEAD OF THE BED ELEVATED BED IN LOW POSITION AND LOCKED CONTINUE TO MONITOR.
[2021-08-25 20:00] VITALS: BP_SYST 100; BP_SYST 106; BP_DIAS 46
--- NOTE | 2021-08-25 21:00 | NUR ---
RN NOTE HELD BLOOD PRESSURE MEDICATION COREG AND LABETALOL BP 100/46 CONTINUE TO MONITOR.
[2021-08-25] MEDS: LATANOPROST EYE DROP 0.005% 2.5 ML BOTTLE OP SCH (21:53)
[2021-08-26] VITALS: BP_SYST 124; BP_SYST 128; BP_DIAS 38; BP_DIAS 40
--- NOTE | 2021-08-26 | NUR ---
RN NOTE BLOOD SUGAR IS 93 NOT REQUIRES INSULIN PER SLIDING SCALE.
--- NOTE | 2021-08-26 | NUR ---
DRIVEMATIC MACHINE OPERATOR NOTE BLOOD SUGAR 124. NO COVERAGE NEEDED.
[2021-08-26] MEDS: BLOOD SUGAR DIAGNOSTIC 1 EACH STRIP IN SCH ×4 (00:21→19:06)
[2021-08-26 04:00] VITALS: BP 124/40
[2021-08-26] MEDS: IPRATROPIUM NEB FS 0.5 MG/2.5 ML AMPUL.NEB IH SCH ×4 (04:20→20:01)
[2021-08-26] MEDS: PHENYTOIN SODIUM IV 100 MG/2ML VIAL IV SCH ×3 (04:55→21:33)
--- NOTE | 2021-08-26 06:00 | NUR ---
RN NOTE BLOOD SUGAR IS 124 NOT REQUIRES INSULIN PER SLIDING SCALE CONTINUE TO MONITOR
--- NOTE | 2021-08-26 07:04 | NUR ---
RN NOTE PATIENT REMAINS ON OBTUNDED EYES CLOSED ON MECHANICAL VENT ON G-TUBE FEEDING,NO SOB NOT ACUTE DISTRESS NOTED, RECTAL TUBE IN PLACE, PROCTOR IN PLACE,KEPT CLEAN AND DRY ALL THE TIME,TREATMENT FOR SACRAL WOUND DONE,REPOSITIONED EVERY 2 HOURS HEAD OF THE BED ELEVATED ENDORSE NEXT COMING SHIFT FOR CONTINUATION OF CARE.
[2021-08-26 07:28] LABS: BASOPHILS # (AUTO) 0.1 K/uL (0.0-0.2); BASOPHILS % (AUTO) 0.7 % (0.0-2.0); EOSINOPHILS % (AUTO) 2.5 % (0.0-6.0); HEMATOCRIT 24 % (33-45); HEMOGLOBIN 7.8 g/dL (11.5-14.8); LYMPHOCYTES # (AUTO) 1.8 K/uL (0.8-4.8); LYMPHOCYTES % (AUTO) 11.5 % (20.0-44.0); MEAN CORPUSCULAR HGB CONC 33 g/dl (31.0-36.0); MEAN CORPUSCULAR VOLUME 93 fL (82-100); MONOCYTES # (AUTO) 1.4 K/uL (0.1-1.30); MONOCYTES % (AUTO) 8.8 % (2.0-12.0); NEUTROPHILS # (AUTO) 11.9 K/uL (1.8-8.9); NEUTROPHILS % (AUTO) 76.5 % (43.0-81.0); PLATELET COUNT (AUTO) 571 K/uL (150-450); RED BLOOD CELL COUNT(AUTO) 2.55 MIL/uL (4.0-5.2); WHITE BLOOD COUNT (AUTO) 15.5 K/uL (4.3-11.0)
--- NOTE | 2021-08-26 07:49 | NUR ---
PT IS NONVERBAL, RESPONSIVE TO PAIN OR STIMULI, ON MECH VENT, NO RESPIRATORY DISTRESS NOTED, BREATHING IS EVEN AND NONLABORED, ON PROCTOR CATHETER AND FLEX SEAL. BED SAFETY LOCK ON, SIDE RAIL X2. SAFETY PRECAUTIONS MET.
[2021-08-26 08:00] VITALS: BP 159/70
[2021-08-26 08:15] LABS: CARBON DIOXIDE 23 mmol/L (21-32); CHLORIDE 100 mmol/L (98-107); CREATININE 2.3 mg/dL (0.6-1.3); GLUCOSE 174 mg/dL (74-106); POTASSIUM 4.2 mmol/L (3.5-5.1); SODIUM SERUM 138 mmol/L (136-145); UREA NITROGEN, BLOOD 73 mg/dL (7-18)
[2021-08-26] MEDS: LABETALOL HCL (100MG) 100 MG TABLET PO SCH ×2 (09:00→21:37)
[2021-08-26] MEDS: CHLORHEXIDINE GLUCONATE 15 ML UDC MM SCH ×2 (09:00→17:00)
[2021-08-26] MEDS: CARVEDILOL 12.5 MG TABLET PO SCH ×2 (09:00→21:36)
[2021-08-26] MEDS: PROSOURCE / PROSTAT (PYXIS) 30 ML UDC GT SCH ×2 (09:12→18:07)
[2021-08-26] MEDS: PHENOBARBITAL 30 MG TABLET PO SCH ×2 (09:14→18:07)
[2021-08-26] MEDS: SEVELAMER CARBONATE 800 MG TABLET PO SCH ×3 (09:17→18:21)
[2021-08-26] MEDS: METOCLOPRAMIDE HCL 10 MG TABLET PO SCH ×3 (09:17→18:23)
[2021-08-26] MEDS: PANTOPRAZOLE 40 MG TABLET.DR PO SCH (09:17)
[2021-08-26] MEDS: ISOSORBIDE DINITRATE (20MG) 20 MG TABLET PO SCH ×3 (09:31→18:08)
--- NOTE | 2021-08-26 09:33 | NUR ---
NURSE NOTE PT HAS ONGOING DIALYSIS, WILL CHECK BP AFTER TREATMENT. BP MED HELD AT THIS TIME.
[2021-08-26] MEDS: NEPRO 1,000 ML BOTTLE GT PRN (09:34)
[2021-08-26 09:46] LABS: BAND % (MANUAL) 1 % (0.0-5.0); EOSINOPHILS % (MANUAL) 4 % (0-4); LYMPHOCYTES % (MANUAL) 15 % (16-48); MONOCYTES % (MANUAL) 7 % (0-11.0); NEUTROPHILS % (MANUAL) 73 (42-76)
[2021-08-26] MEDS ORDERED: HEPARIN SODIUM, PORCINE 1000 UNIT/1 ML VIAL IV ONE (10:00)
[2021-08-26] MEDS ORDERED: HEPARIN SODIUM, PORCINE 1000 UNIT/1 ML VIAL IV PRN (10:00)
[2021-08-26] MEDS: DAKINS QUARTER STRENGTH (0.125%) 480 ML BOTTLE TOP SCH ×2 (10:26→18:09)
[2021-08-26] MEDS: DORZOLAMIDE OPTH 2% 10 ML BOTTLE OP SCH ×2 (10:29→18:12)
[2021-08-26 12:00] VITALS: BP_SYST 156; BP_SYST 178; BP_DIAS 60; BP_DIAS 62
[2021-08-26] MEDS: CEFTAZIDIME/AVIBACTAM 0.94 GM in IV NS 0.9% 100 ML IV SCH (15:51)
[2021-08-26 16:00] VITALS: BP_SYST 157; BP_SYST 178; BP_DIAS 62; BP_DIAS 65
[2021-08-26] MEDS: TOBRAMYCIN 80 MG in IV D5W 50 ML IV PRN (16:35)
[2021-08-26] MEDS: AMPICILLIN /SULBACTAM 3 G in IV NS 0.9% 50 ML IJ SCH (18:08)
[2021-08-26] MEDS: AMLODIPINE BESYLATE 10 MG TABLET PO SCH (18:22)
--- NOTE | 2021-08-26 19:12 | NUR ---
RN CLOSING NOTES PT IS NONVERBAL, RESPONSIVE TO PAIN OR STIMULI, ON MECH VENT, NO RESPIRATORY DISTRESS NOTED, BREATHING IS EVEN AND NONLABORED, ON PROCTOR CATHETER AND FLEX SEAL. 2L OF FLUID REMOVED FROM DIALYSIS TREATMENT. NO S/S OF LOW BP. ADMINISTERED ALL MEDS ORDERED. BED SAFETY LOCK ON, SIDE RAIL X2. SAFETY PRECAUTIONS MET. WILL HAND OFF PT TO HEAD STILL OPERATOR FOR CONTINUITY OF CARE.
[2021-08-26 20:00] VITALS: BP 147/60
--- NOTE | 2021-08-26 20:11 | NUR ---
SENIOR COUNSEL COMMERCIAL OPENING PATIENT IN BED. OBTUNDED, AROUSABLE TO PAINFUL STIMULI. NO S/S OF APPARENT DISTRESS, VENT DEPENDENT. NOT EXHIBITING PAIN VIA FLACC. PATIENT'S DAUGHTER IN ROOM WITH PATIENT. TELE READING SR 83. PROCTOR CATHETER AND FLEXISEAL NOTED IN PLACE. NO FLUIDS RUNNING AT THIS TIME. SAFETY IN PLACE. WILL FOLLOW THROUGH CARE PLAN.
[2021-08-26] MEDS: LATANOPROST EYE DROP 0.005% 2.5 ML BOTTLE OP SCH (21:42)
[2021-08-27] VITALS: BP 149/65
[2021-08-27] MEDS: INSULIN REGULAR, HUMAN 100 UNIT/ML 3 ML VIAL SQ PRN ×2 (00:20→06:28)
[2021-08-27] MEDS: BLOOD SUGAR DIAGNOSTIC 1 EACH STRIP IN SCH ×4 (00:20→18:06)
--- NOTE | 2021-08-27 01:02 | NUR ---
CABLE PULLER NOTE PATIENT HAVE LOW GRADE FEVER 100.3. INITIATED COOLING MEASURES.
[2021-08-27] MEDS: IPRATROPIUM NEB FS 0.5 MG/2.5 ML AMPUL.NEB IH SCH ×4 (01:44→20:02)
[2021-08-27] MEDS: ACETAMINOPHEN 325 MG TABLET PO PRN ×2 (03:10→21:23)
--- NOTE | 2021-08-27 03:10 | NUR ---
ASSOCIATE PROFESSOR OF BIBLICAL STUDIES NOTE RE-CHECKED PATIENT'S TEMPERATURE, NOW AT 101.1. COOLING MEASURE DID NOT WORK. TYLENOL ADMINISTERED. WILL CONTINUE TO MONITOR AND CONTINUE WITH COOLING MEASURES.
[2021-08-27 04:00] VITALS: BP 109/49
[2021-08-27] MEDS: PHENYTOIN SODIUM IV 100 MG/2ML VIAL IV SCH ×3 (05:10→21:24)
--- NOTE | 2021-08-27 05:46 | NUR ---
FAMILY LAWYER NOTE PATIENT DIAPHORETIC. SECOND TIME CHANGING HER GOWN AND LINENS. TEMPERATURE WENT DOWN TO 99F. CONTINUING WITH COOLING MEASURES.
--- NOTE | 2021-08-27 06:30 | NUR ---
BEAD TRIMMER NOTE BLOOD SUGAR 124. NO COVERAGE NEEDED.
--- NOTE | 2021-08-27 06:48 | NUR ---
DOCUMENTATION SUPERVISOR CLOSING NOTE PATIENT IN ROOM. OBTUNDED AND EYE OPENING TO DEEP PAIN. DIAPHORETIC. PATIENT NOT EXHIBITING ANY S/S OF APPARENT DISTRESS - VENT DEPENDENT. NOT EXHIBITING PAIN VIA FLACC. FEVER MANAGED WITH MEDICATION AND COOLING MEASURES. TELE MONITOR READING NSR IN THE 62. PROCTOR CATHETER HAS NO OUTPUT BEING PATIENT IS A DIALYSIS PATIENT. NO FLUIDS RUNNING AT THIS TIME. NEPRO RUNNING AT 40 ML/HR, TOLERATING WELL. ALL NEEDS ATTENDED. ALL SCHEDULED MEDICATIONS ADMINISTERED. SAFETY KEPT IN PLACE THE WHOLE SHIFT. WILL ENDORSE TO MORNING SHIFT RN FOR CONTINUITY OF CARE.
[2021-08-27 07:02] LABS: BASOPHILS # (AUTO) 0.1 K/uL (0.0-0.2); BASOPHILS % (AUTO) 0.6 % (0.0-2.0); EOSINOPHILS % (AUTO) 2.3 % (0.0-6.0); HEMATOCRIT 28 % (33-45); HEMOGLOBIN 8.8 g/dL (11.5-14.8); LYMPHOCYTES # (AUTO) 2.2 K/uL (0.8-4.8); LYMPHOCYTES % (AUTO) 14.1 % (20.0-44.0); MEAN CORPUSCULAR HGB CONC 31 g/dl (31.0-36.0); MEAN CORPUSCULAR VOLUME 96 fL (82-100); MONOCYTES # (AUTO) 1.5 K/uL (0.1-1.30); MONOCYTES % (AUTO) 9.6 % (2.0-12.0); NEUTROPHILS # (AUTO) 11.4 K/uL (1.8-8.9); NEUTROPHILS % (AUTO) 73.4 % (43.0-81.0); PLATELET COUNT (AUTO) 655 K/uL (150-450); RED BLOOD CELL COUNT(AUTO) 2.93 MIL/uL (4.0-5.2); WHITE BLOOD COUNT (AUTO) 15.6 K/uL (4.3-11.0)
--- NOTE | 2021-08-27 07:04 | NUR ---
COMPLIANCE MGR NOTE JUST RE-CHECKED PATIENT TEMPERATURE. WENT DOWN TO 97.5 NOW. WILL ENDORSE.
[2021-08-27 07:14] LABS: CARBON DIOXIDE 25 mmol/L (21-32); CHLORIDE 100 mmol/L (98-107); CREATININE 1.9 mg/dL (0.6-1.3); GLUCOSE 134 mg/dL (74-106); POTASSIUM 3.7 mmol/L (3.5-5.1); SODIUM SERUM 138 mmol/L (136-145); UREA NITROGEN, BLOOD 55 mg/dL (7-18)
--- NOTE | 2021-08-27 07:38 | NUR ---
SENIOR C SOFTWARE ENGINEER OPENING NOTE Patient in bed asleep, obtunded; opens eyes to deep pain. With Trach Portex 7 connected to mechanical ventilator with the following settings: AC TV 500, FIO2 35%, PEEP 5; tolerating settings well with no SOB noted, SPO2 at 100%. IV access on XIOMARA midline, intact and patent. G-tube in place running Nepro @40 ml/hr. Rectal tube and manuel catheter in place. On tele monitoring showing SR, HR on the 60's. Safety precautions in place: bed in low, locked position; siderails up x 2; call light within reach. Will continue to monitor.
[2021-08-27 08:00] VITALS: BP 131/37
[2021-08-27] MEDS: PANTOPRAZOLE 40 MG TABLET.DR PO SCH (08:07)
[2021-08-27] MEDS: METOCLOPRAMIDE HCL 10 MG TABLET PO SCH ×3 (08:07→17:08)
[2021-08-27] MEDS: PHENOBARBITAL 30 MG TABLET PO SCH ×2 (08:07→16:31)
[2021-08-27] MEDS: SEVELAMER CARBONATE 800 MG TABLET PO SCH ×3 (08:07→17:08)
[2021-08-27] MEDS: ISOSORBIDE DINITRATE (20MG) 20 MG TABLET PO SCH ×3 (08:09→16:31)
[2021-08-27] MEDS: CARVEDILOL 12.5 MG TABLET PO SCH ×2 (08:10→21:23)
[2021-08-27] MEDS: LABETALOL HCL (100MG) 100 MG TABLET PO SCH ×2 (08:11→21:24)
[2021-08-27] MEDS: CHLORHEXIDINE GLUCONATE 15 ML UDC MM SCH ×2 (08:13→16:32)
[2021-08-27] MEDS: PROSOURCE / PROSTAT (PYXIS) 30 ML UDC GT SCH ×2 (08:45→16:31)
[2021-08-27] MEDS: DORZOLAMIDE OPTH 2% 10 ML BOTTLE OP SCH ×2 (08:51→16:31)
[2021-08-27] MEDS ORDERED: DOSE PER PHARMACY MICAFUNGIN 1 EA XX PRN (10:00)
--- NOTE | 2021-08-27 12:00 | NUR ---
RN NOTE BS is 126, no insulin coverage as per sliding scale.
[2021-08-27 12:04] VITALS: BP 134/60
--- NOTE | 2021-08-27 12:46 | NUR ---
RN NOTE Patient has order for Micofungin Sodium IV but has to get blood culture before starting. Lab attempted drawing blood 2x but no success, tried drawing blood from midline but no blood came out. Dr. Mao was made aware and instructed to hold Micofungin until blood culture is done and to confirm with Dr. Lorenz. Call made to Dr. Lorenz's office and spoke to Dr Arnold, he said to hold Micofungin and ask lab to redraw blood.
[2021-08-27] MEDS: MICAFUNGIN SODIUM 100 MG in IV NS 0.9% 100 ML IV SCH (13:42)
[2021-08-27] MEDS: NEPRO 1,000 ML BOTTLE GT PRN (13:51)
--- NOTE | 2021-08-27 14:00 | NUR ---
RN NOTE Lab was able to redraw blood, Micafungin IV started, as per Dr. Arnold/ Dr. Lorenz order.
[2021-08-27] MEDS: EPOETIN ALFA-EPBX 4,000 UNIT/ML VIAL IV SCH (15:01)
[2021-08-27 16:00] VITALS: BP 125/67
[2021-08-27] MEDS: AMPICILLIN /SULBACTAM 3 G in IV NS 0.9% 50 ML IJ SCH (16:21)
[2021-08-27] MEDS: AMLODIPINE BESYLATE 10 MG TABLET PO SCH (17:08)
--- NOTE | 2021-08-27 18:34 | NUR ---
RN NOTE BS 89, no Insulin coverage per sliding scale.
--- NOTE | 2021-08-27 18:49 | NUR ---
CANTEEN OPERATOR CLOSING NOTE Patient in bed asleep, obtunded; opens eyes to deep pain. With Trach Portex 7 connected to mechanical ventilator with the following settings: AC TV 500, FIO2 35%, PEEP 5; tolerating settings well with no SOB noted, SPO2 at 100%. IV access on XIOMARA midline, intact, patent, and flushes well. G-tube in place running Nepro @40 ml/hr. Rectal tube and manuel catheter in place. On tele monitoring showing SR, HR on the 80's. Safety precautions maintained: bed in low, locked position; siderails up x 2; call light within reach. Will endorse to nightman nurse for OTIS.
--- NOTE | 2021-08-27 19:26 | NUR ---
WELLNESS EDUCATOR OPENING NOTE Patient in bed asleep, obtunded; opens eyes to deep pain. With Trach Portex 7 connected to mechanical ventilator with the following settings: AC TV 500, FIO2 35%, PEEP 5; tolerating settings well with no SOB noted, SPO2 at 100%. IV access on XIOMARA midline, intact, patent, and flushes well. G-tube in place running Nepro @40 ml/hr. Rectal tube and manuel catheter in place. On tele monitoring showing SR, HR on the 80's. Safety precautions maintained: bed in low, locked position; siderails up x 2; call light within reach. Will continue to monitor.
[2021-08-27 20:00] VITALS: BP 130/61
[2021-08-27] MEDS: LATANOPROST EYE DROP 0.005% 2.5 ML BOTTLE OP SCH (21:56)
--- NOTE | 2021-08-27 22:00 | NUR ---
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
[2021-08-28] VITALS: BP 121/59
[2021-08-28] MEDS: BLOOD SUGAR DIAGNOSTIC 1 EACH STRIP IN SCH ×5 (00:08→23:33)
[2021-08-28] MEDS: IPRATROPIUM NEB FS 0.5 MG/2.5 ML AMPUL.NEB IH SCH ×4 (01:55→20:21)
[2021-08-28 04:00] VITALS: BP 138/64
[2021-08-28] MEDS: PHENYTOIN SODIUM IV 100 MG/2ML VIAL IV SCH ×3 (05:12→21:29)
[2021-08-28] MEDS: INSULIN REGULAR, HUMAN 100 UNIT/ML 3 ML VIAL SQ PRN ×3 (05:53→17:19)
--- NOTE | 2021-08-28 06:31 | NUR ---
DISTRIBUTION SUPERINTENDENT closing NOTE Patient in bed asleep, obtunded; opens eyes to deep pain. With Trach Portex 7 connected to mechanical ventilator with the following settings: AC TV 500, FIO2 35%, PEEP 5; tolerating settings well with no SOB noted, SPO2 at 100%. IV access on XIOMARA midline, intact, patent, and flushes well. G-tube in place running Nepro @40 ml/hr. Rectal tube and manuel catheter in place. On tele monitoring showing SR all due meds given and tolerated well. pt does not have fever at this time.. Safety precautions maintained: bed in low, locked position; siderails up x 2; call light within reach. Will endorse care to day shift nurse.
--- NOTE | 2021-08-28 07:30 | NUR ---
MERCHANDISER SEASONAL OPENING NOTES RECEIVED PT IN BED LYING AT MODERATE HIGH BACK REST POSITION IN NO ACUTE SIGNS OF DISTRESS. ON TRACH PORTEX # 7 CONNECTED TO MECHANICAL VENTILATOR AT SETTINGS OF AC 14, TV 500, FI02 30% AND PEEP 5, SP02 100%. TELE-MONITOR SHOWS NSR WITH HR ON THE 70'S. G-TUBE FEEDING OF NEPRO AT 40ML/HR ONGOING, TOLERATING WELL. ASPIRATION PRECAUTIONS OBSERVED. XIOMARA MIDLINE INTACT, FLUSHED AND PATENT. RIGHT SUBCLAVIAN HD CATHETER IN PLACE WITH DRESSING C/D/I. PROCTOR IN PLACED WITH NO URINE OUTPUT NOTED AT THIS TIME. RECTAL FLEXI SEAL TUBE IN PLACE WITH BROWNISH WATERY STOOL NOTED. SAFETY MEASURES IN PLACE: BED IN LOWEST LOCKED POSITION, S/R UP X3 AND CALL LIGHT WITHIN REACH. ISOLATION PRECAUTIONS OBSERVED AT ALL TIMES. WILL CONTINUE TO MONITOR PT ACCORDINGLY.
[2021-08-28] MEDS: ISOSORBIDE DINITRATE (20MG) 20 MG TABLET PO SCH ×3 (09:00→17:18)
[2021-08-28] MEDS: LABETALOL HCL (100MG) 100 MG TABLET PO SCH ×2 (09:00→21:28)
[2021-08-28] MEDS: CARVEDILOL 12.5 MG TABLET PO SCH ×2 (09:00→21:28)
--- NOTE | 2021-08-28 09:10 | NUR ---
RN NOTES ALL B/P MEDS WITHELD, PT OR HEMODIALYSIS TODAY.
[2021-08-28] MEDS: PANTOPRAZOLE 40 MG TABLET.DR PO SCH (09:15)
[2021-08-28] MEDS: SEVELAMER CARBONATE 800 MG TABLET PO SCH ×3 (09:16→17:04)
[2021-08-28] MEDS: PROSOURCE / PROSTAT (PYXIS) 30 ML UDC GT SCH ×2 (09:16→16:56)
[2021-08-28] MEDS: METOCLOPRAMIDE HCL 10 MG TABLET PO SCH ×3 (09:16→17:04)
[2021-08-28] MEDS: PHENOBARBITAL 30 MG TABLET PO SCH ×2 (09:16→16:59)
[2021-08-28] MEDS: CHLORHEXIDINE GLUCONATE 15 ML UDC MM SCH ×2 (09:19→17:00)
[2021-08-28] MEDS: DORZOLAMIDE OPTH 2% 10 ML BOTTLE OP SCH ×2 (09:19→17:00)
[2021-08-28 09:26] LABS: BASOPHILS # (AUTO) 0.1 K/uL (0.0-0.2); BASOPHILS % (AUTO) 0.4 % (0.0-2.0); EOSINOPHILS % (AUTO) 2.4 % (0.0-6.0); HEMATOCRIT 27 % (33-45); HEMOGLOBIN 8.7 g/dL (11.5-14.8); LYMPHOCYTES # (AUTO) 1.5 K/uL (0.8-4.8); LYMPHOCYTES % (AUTO) 9.9 % (20.0-44.0); MEAN CORPUSCULAR HGB CONC 32 g/dl (31.0-36.0); MEAN CORPUSCULAR VOLUME 94 fL (82-100); MONOCYTES # (AUTO) 1.5 K/uL (0.1-1.30); MONOCYTES % (AUTO) 9.3 % (2.0-12.0); NEUTROPHILS # (AUTO) 12.2 K/uL (1.8-8.9); PLATELET COUNT (AUTO) 661 K/uL (150-450); WHITE BLOOD COUNT (AUTO) 15.7 K/uL (4.3-11.0)
[2021-08-28] MEDS: DAKINS QUARTER STRENGTH (0.125%) 480 ML BOTTLE TOP SCH (09:26)
[2021-08-28 09:42] LABS: ALANINE AMINOTRANSFERASE 69 U/L (12-78); ALBUMIN 1.8 g/dL (3.4-5.0); ALKALINE PHOSPHATASE 378 U/L (46-116); ASPARTATE AMINOTRANSFERASE 92 U/L (15-37); BILIRUBIN,TOTAL 0.5 mg/dL (0.2-1.0); CALCIUM, SERUM 9.8 mg/dL (8.5-10.1); CARBON DIOXIDE 26 mmol/L (21-32); CHLORIDE 99 mmol/L (98-107); CREATININE 2.5 mg/dL (0.6-1.3); GLUCOSE 167 mg/dL (74-106); POTASSIUM 3.8 mmol/L (3.5-5.1); SODIUM SERUM 138 mmol/L (136-145); TOTAL PROTEIN, SERUM 8.2 g/dL (6.4-8.2)
[2021-08-28 09:48] LABS: UREA NITROGEN, BLOOD 82 mg/dL (7-18)
[2021-08-28 10:20] LABS: EOSINOPHILS % (MANUAL) 4 % (0-4); LYMPHOCYTES % (MANUAL) 11 % (16-48); METAMYELOCYTES % 1 % (0-0); MONOCYTES % (MANUAL) 9 % (0-11.0); NEUTROPHILS % (MANUAL) 75 (42-76)
--- NOTE | 2021-08-28 11:10 | NUR ---
RN NOTES LEFT THORACENTESIS DONE, ONLY 30 ML OF PLEURAL FLUID REMOVED. SPECIMEN SENT TO LAB FOR PATHOLOGY.
--- NOTE | 2021-08-28 11:15 | NUR ---
RN NOTES PT WAS STARTED ON HEMODIALYSIS BY HD NURSE MARCH. PRE HD B/P 135/55, P 75.
[2021-08-28] MEDS: MICAFUNGIN SODIUM 100 MG in IV NS 0.9% 100 ML IV SCH (11:31)
--- NOTE | 2021-08-28 13:00 | NUR ---
RN NOTES MEDICATIONS NOT ADMINISTERED, PT IS STILL ONGOING WITH HEMODIALYSIS, B/P 106/58, P 68.
--- NOTE | 2021-08-28 14:15 | NUR ---
RN NOTES PT DONE WITH DIALYSIS, UF 1550ML, POST HD BP 130/48, P 69. PT TOLERATED PROCEDURE WELL.
[2021-08-28] MEDS: CEFTAZIDIME/AVIBACTAM 0.94 GM in IV NS 0.9% 100 ML IV SCH (14:55)
[2021-08-28] MEDS: AMPICILLIN /SULBACTAM 3 G in IV NS 0.9% 50 ML IJ SCH (16:59)
[2021-08-28] MEDS: AMLODIPINE BESYLATE 10 MG TABLET PO SCH (17:18)
--- NOTE | 2021-08-28 19:19 | NUR ---
HIGH VOLTAGE ELECTRICIAN OPENING NOTES PT IN BED LYING AT MODERATE HIGH BACK REST POSITION IN NO ACUTE SIGNS OF DISTRESS. PT OBTUNDED, OPEN EYES. ON TRACH PORTEX # 7 CONNECTED TO MECHANICAL VENTILATOR AT SETTINGS OF AC 14, TV 500, FI02 30% AND PEEP 5, SP02 100%. TELE-MONITOR SHOWS NSR WITH HR ON THE 70'S. G-TUBE FEEDING OF NEPRO AT 40ML/HR ONGOING, TOLERATING WELL. ASPIRATION PRECAUTIONS OBSERVED. XIOMARA MIDLINE INTACT, FLUSHED AND PATENT. RIGHT SUBCLAVIAN HD CATHETER IN PLACE WITH DRESSING C/D/I. PROCTOR IN PLACED WITH NO URINE OUTPUT NOTED AT THIS TIME. RECTAL FLEXI SEAL TUBE IN PLACE WITH BROWNISH WATERY STOOL NOTED. TURNED AND REPOSITIONED Q 2HOURS. SAFETY MEASURES IN PLACE: BED IN LOWEST LOCKED POSITION, S/R UP X3 AND CALL LIGHT WITHIN REACH. ISOLATION PRECAUTIONS OBSERVED AT ALL TIMES. WILL ENDORSE TO NEXT SHIFT.
--- NOTE | 2021-08-28 19:25 | NUR ---
SHUTTLER CAR NOTES PT IN BED LYING AT MODERATE HIGH BACK REST POSITION IN NO ACUTE SIGNS OF DISTRESS. PT OBTUNDED, OPEN EYES. ON TRACH PORTEX # 7 CONNECTED TO MECHANICAL VENTILATOR AT SETTINGS OF AC 14, TV 500, FI02 30% AND PEEP 5, SP02 100%. TELE-MONITOR SHOWS NSR WITH HR ON THE 70'S. G-TUBE FEEDING OF NEPRO AT 40ML/HR ONGOING, TOLERATING WELL. ASPIRATION PRECAUTIONS OBSERVED. XIOMARA MIDLINE INTACT, FLUSHED AND PATENT. RIGHT SUBCLAVIAN HD CATHETER IN PLACE WITH DRESSING C/D/I. PROCTOR IN PLACED WITH NO URINE OUTPUT NOTED AT THIS TIME. RECTAL FLEXI SEAL TUBE IN PLACE WITH BROWNISH WATERY STOOL NOTED. SAFETY MEASURES IN PLACE: BED IN LOWEST LOCKED POSITION, S/R UP X3 AND CALL LIGHT WITHIN REACH. ISOLATION PRECAUTIONS OBSERVED AT ALL TIMES. WILL CONTINUE TO MONITOR.
[2021-08-28 20:00] VITALS: BP 149/56
[2021-08-28] MEDS: LATANOPROST EYE DROP 0.005% 2.5 ML BOTTLE OP SCH (21:29)
[2021-08-28] MEDS: NEPRO 1,000 ML BOTTLE GT PRN (23:06)
[2021-08-28] MEDS: ACETAMINOPHEN 325 MG TABLET PO PRN (23:33)
--- NOTE | 2021-08-28 23:43 | NUR ---
DOCUMENT SCANNER NOTES PRN TYLENOL GIVEN FOR LOW GRADE FEVER WILL CONTINUE TO MONITOR.
[2021-08-29] VITALS: BP 143/58
[2021-08-29] MEDS: IPRATROPIUM NEB FS 0.5 MG/2.5 ML AMPUL.NEB IH SCH ×4 (01:44→20:22)
[2021-08-29 04:00] VITALS: BP_SYST 144
[2021-08-29] MEDS: PHENYTOIN SODIUM IV 100 MG/2ML VIAL IV SCH ×3 (04:47→22:02)
[2021-08-29] MEDS: BLOOD SUGAR DIAGNOSTIC 1 EACH STRIP IN SCH ×3 (06:03→18:33)
--- NOTE | 2021-08-29 06:57 | NUR ---
BANK TELLER MACHINE MECHANIC NOTES PT IN BED LYING AT MODERATE HIGH BACK REST POSITION IN NO ACUTE SIGNS OF DISTRESS. PT OBTUNDED, OPEN EYES. ON TRACH PORTEX # 7 CONNECTED TO MECHANICAL VENTILATOR AT SETTINGS OF AC 14, TV 500, FI02 30% AND PEEP 5, SP02 100%. TELE-MONITOR SHOWS NSR WITH HR ON THE 70'S. G-TUBE FEEDING OF NEPRO AT 40ML/HR ONGOING, TOLERATING WELL. ASPIRATION PRECAUTIONS OBSERVED. XIOMARA MIDLINE INTACT, FLUSHED AND PATENT. RIGHT SUBCLAVIAN HD CATHETER IN PLACE WITH DRESSING C/D/I. PROCTOR IN PLACED WITH NO URINE OUTPUT NOTED AT THIS TIME. RECTAL FLEXI SEAL TUBE IN PLACE WITH BROWNISH WATERY STOOL NOTED. SAFETY MEASURES IN PLACE: BED IN LOWEST LOCKED POSITION, S/R UP X3 AND CALL LIGHT WITHIN REACH. ISOLATION PRECAUTIONS OBSERVED AT ALL TIMES. WILL ENDORSE CARE TO DAY SHIFT NURSE.
[2021-08-29 07:02] LABS: BASOPHILS # (AUTO) 0.1 K/uL (0.0-0.2); BASOPHILS % (AUTO) 0.5 % (0.0-2.0); EOSINOPHILS % (AUTO) 2.3 % (0.0-6.0); HEMATOCRIT 26 % (33-45); HEMOGLOBIN 8.3 g/dL (11.5-14.8); LYMPHOCYTES # (AUTO) 1.9 K/uL (0.8-4.8); LYMPHOCYTES % (AUTO) 12.1 % (20.0-44.0); MEAN CORPUSCULAR HGB CONC 32 g/dl (31.0-36.0); MEAN CORPUSCULAR VOLUME 95 fL (82-100); MONOCYTES # (AUTO) 1.4 K/uL (0.1-1.30); MONOCYTES % (AUTO) 9.1 % (2.0-12.0); NEUTROPHILS # (AUTO) 11.7 K/uL (1.8-8.9); PLATELET COUNT (AUTO) 632 K/uL (150-450); RED BLOOD CELL COUNT(AUTO) 2.79 MIL/uL (4.0-5.2); WHITE BLOOD COUNT (AUTO) 15.4 K/uL (4.3-11.0)
[2021-08-29 07:17] LABS: CALCIUM, SERUM 9.4 mg/dL (8.5-10.1); CARBON DIOXIDE 25 mmol/L (21-32); CHLORIDE 101 mmol/L (98-107); CREATININE 1.7 mg/dL (0.6-1.3); GLUCOSE 141 mg/dL (74-106); MAGNESIUM 2.2 mg/dL (1.8-2.4); PHOSPHORUS 2.5 mg/dL (2.5-4.9); POTASSIUM 3.5 mmol/L (3.5-5.1); SODIUM SERUM 139 mmol/L (136-145); UREA NITROGEN, BLOOD 45 mg/dL (7-18)
[2021-08-29 08:00] VITALS: BP 149/60
--- NOTE | 2021-08-29 08:02 | NUR ---
RN OPENING NOTE PATIENT SLEEP IN BED RESTING. AWAKEN TO VERBAL STIMULI. NON-VERBAL. NO S/S OF PAIN NOTED AT THIS TIME. . PATIENT ON VENT, TRACH PRESENT PORTEX 7, AC 14, TV 500, FIO2 30, PEEP 5. IV ACCESS XIOMARA MIDLINE AND RCW HD CATH. PATIENT HAVE EXTERNAL ICT HELP DESK OFFICER WITH CURRENT READING OF S.R. PATIENT HAS FLEXI SEAL AND PROCTOR CATH. FALL AND SAFETY MEASURES IN PLACE, BED ALARM ON, BED IN LOW AND LOCK POSITION, CALL LIGHT WITHIN EASY REACH, SIDE RAILS UP X2. WILL CONTINUE TO MONITOR.
[2021-08-29] MEDS: SEVELAMER CARBONATE 800 MG TABLET PO SCH ×3 (08:42→18:42)
[2021-08-29] MEDS: PANTOPRAZOLE 40 MG TABLET.DR PO SCH (08:42)
[2021-08-29] MEDS: CHLORHEXIDINE GLUCONATE 15 ML UDC MM SCH ×2 (08:43→17:00)
[2021-08-29] MEDS: PROSOURCE / PROSTAT (PYXIS) 30 ML UDC GT SCH ×2 (08:43→18:45)
[2021-08-29] MEDS: DORZOLAMIDE OPTH 2% 10 ML BOTTLE OP SCH ×2 (08:43→18:42)
[2021-08-29] MEDS: PHENOBARBITAL 30 MG TABLET PO SCH ×2 (08:43→18:43)
[2021-08-29] MEDS: METOCLOPRAMIDE HCL 10 MG TABLET PO SCH ×3 (08:44→18:45)
[2021-08-29] MEDS: DAKINS QUARTER STRENGTH (0.125%) 480 ML BOTTLE TOP SCH (08:55)
[2021-08-29] MEDS: LABETALOL HCL (100MG) 100 MG TABLET PO SCH ×2 (08:56→23:19)
[2021-08-29] MEDS: CARVEDILOL 12.5 MG TABLET PO SCH ×2 (08:56→22:03)
[2021-08-29] MEDS: ISOSORBIDE DINITRATE (20MG) 20 MG TABLET PO SCH ×3 (08:56→18:44)
[2021-08-29 12:00] VITALS: BP 146/59
[2021-08-29] MEDS: MICAFUNGIN SODIUM 100 MG in IV NS 0.9% 100 ML IV SCH (13:38)
[2021-08-29] MEDS: TOBRAMYCIN 80 MG in IV D5W 50 ML IV PRN (15:27)
[2021-08-29] MEDS: EPOETIN ALFA-EPBX 4,000 UNIT/ML VIAL IV SCH (15:41)
[2021-08-29] MEDS: NEPRO 1,000 ML BOTTLE GT PRN (15:41)
[2021-08-29 16:00] VITALS: BP 151/73
[2021-08-29] MEDS: AMPICILLIN /SULBACTAM 3 G in IV NS 0.9% 50 ML IJ SCH (16:51)
[2021-08-29] MEDS: AMLODIPINE BESYLATE 10 MG TABLET PO SCH (18:44)
--- NOTE | 2021-08-29 19:30 | NUR ---
RN CLOSING NOTE PATIENT AWAKE IN BED RESTING, FAMILY IN ROOM. NON-VERBAL. NO S/S OF PAIN NOTED AT THIS TIME. PATIENT ON VENT, TRACH PRESENT PORTEX 7, AC 14, TV 500, FIO2 30, PEEP 5. IV ACCESS XIOMARA MIDLINE AND RCW HD CATH. PATIENT HAVE EXTERNAL BUSHER HELPER WITH CURRENT READING OF S.R. HR 81. PATIENT HAS FLEXI SEAL AND PROCTOR CATH. FALL AND SAFETY MEASURES IN PLACE, BED ALARM ON, BED IN LOW AND LOCK POSITION, CALL LIGHT WITHIN EASY REACH, SIDE RAILS UP X2. WILL ENDORSE TO ELECTRIC METER SETTER.
--- NOTE | 2021-08-29 19:45 | NUR ---
NIGHT TIME BABYSITTER OPENING NOTE PATIENT SLEEP IN BED RESTING, FAMILY IN ROOM. PATIENT IS OBTUNDED. AWAKEN TO VERBAL STIMULI. NON-VERBAL. NO S/S OF PAIN NOTED AT THIS TIME. . PATIENT ON VENT, TRACH PRESENT PORTEX 7, AC 14, TV 500, FIO2 30, PEEP 5. IV ACCESS XIOMARA MIDLINE AND RCW HD CATH. PATIENT HAVE EXTERNAL WAREHOUSE ORDER PULLER WITH CURRENT READING OF S.R. @81 BPM PATIENT HAS FLEXI SEAL AND PROCTOR CATH. FALL AND SAFETY MEASURES IN PLACE, BED ALARM ON, BED IN LOW AND LOCK POSITION, CALL LIGHT WITHIN EASY REACH, SIDE RAILS UP X2. WILL CONTINUE TO MONITOR.
[2021-08-29 20:00] VITALS: BP 138/80
--- NOTE | 2021-08-29 22:00 | NUR ---
RN NOTES PATIENT HAS TEMP. OF 100.4- TYLENOL 650MG GT WAS GIVEN , COOLING MEASURE APPLIED
[2021-08-29] MEDS: ACETAMINOPHEN 325 MG TABLET PO PRN (22:02)
[2021-08-29] MEDS: LATANOPROST EYE DROP 0.005% 2.5 ML BOTTLE OP SCH (22:03)
[2021-08-30] VITALS: BP_SYST 126; BP_DIAS 57; BP_DIAS 67
--- NOTE | 2021-08-30 | NUR ---
RN NOTES LATEST TEMP. 98.5
[2021-08-30] MEDS: BLOOD SUGAR DIAGNOSTIC 1 EACH STRIP IN SCH ×5 (00:13→23:32)
[2021-08-30] MEDS: INSULIN REGULAR, HUMAN 100 UNIT/ML 3 ML VIAL SQ PRN ×4 (00:15→23:35)
[2021-08-30] MEDS: IPRATROPIUM NEB FS 0.5 MG/2.5 ML AMPUL.NEB IH SCH ×4 (01:39→20:33)
[2021-08-30 04:00] VITALS: BP 159/69
[2021-08-30] MEDS: PHENYTOIN SODIUM IV 100 MG/2ML VIAL IV SCH ×3 (04:39→21:19)
--- NOTE | 2021-08-30 06:25 | NUR ---
MEDICAL RADIATION THERAPIST CLOSING NOTES PATIENT STILL ASLEEP IN BED RESTING. PATIENT IS OBTUNDED. AWAKEN TO VERBAL STIMULI. NON-VERBAL. STILL NO S/S OF PAIN NOTED AT THIS TIME. . PATIENT ON VENT, TRACH PRESENT PORTEX 7, AC 14, TV 500, FIO2 30, PEEP 5. IV ACCESS XIOMARA MIDLINE AND RCW HD CATH. PATIENT HAVE EXTERNAL TRADING ANALYST WITH CURRENT READING OF S.R. @81 BPM PATIENT HAS FLEXI SEAL AND PROCTOR CATH. FALL AND SAFETY MEASURES IN PLACE, BED ALARM ON, BED IN LOW AND LOCK POSITION, CALL LIGHT WITHIN EASY REACH, SIDE RAILS UP X2. WILL ENDORSE CONTINUITY OF CARE TO DAY SHIFT NURSE.
[2021-08-30 08:00] VITALS: BP 124/52
--- NOTE | 2021-08-30 08:08 | NUR ---
RN OPENING NOTE PATIENT SLEEP IN BED RESTING. AWAKEN TO VERBAL STIMULI. NON-VERBAL. NO S/S OF PAIN NOTED AT THIS TIME. PATIENT ON VENT, TRACH PRESENT PORTEX 7, AC 14, TV 500, FIO2 30, PEEP 5. IV ACCESS XIOMARA MIDLINE AND RCW HD CATH. PATIENT HAVE EXTERNAL BLOCK BOLTER MULE OPERATOR WITH CURRENT READING OF S.R., HR OF 81. PATIENT HAS FLEXI SEAL AND PROCTOR CATH. FALL AND SAFETY MEASURES IN PLACE, BED ALARM ON, BED IN LOW AND LOCK POSITION, CALL LIGHT WITHIN EASY REACH, SIDE RAILS UP X2. WILL CONTINUE TO MONITOR.
[2021-08-30] MEDS: DORZOLAMIDE OPTH 2% 10 ML BOTTLE OP SCH ×2 (08:49→18:31)
[2021-08-30] MEDS: PHENOBARBITAL 30 MG TABLET PO SCH ×2 (08:50→18:32)
[2021-08-30] MEDS: PROSOURCE / PROSTAT (PYXIS) 30 ML UDC GT SCH ×2 (08:50→18:32)
[2021-08-30] MEDS: SEVELAMER CARBONATE 800 MG TABLET PO SCH ×3 (08:50→18:31)
[2021-08-30] MEDS: PANTOPRAZOLE 40 MG TABLET.DR PO SCH (08:50)
[2021-08-30] MEDS: METOCLOPRAMIDE HCL 10 MG TABLET PO SCH ×3 (08:51→18:31)
[2021-08-30] MEDS: ISOSORBIDE DINITRATE (20MG) 20 MG TABLET PO SCH ×3 (08:51→17:00)
[2021-08-30] MEDS: CARVEDILOL 12.5 MG TABLET PO SCH ×2 (08:52→21:18)
[2021-08-30] MEDS: LABETALOL HCL (100MG) 100 MG TABLET PO SCH ×2 (08:53→21:18)
[2021-08-30] MEDS: CHLORHEXIDINE GLUCONATE 15 ML UDC MM SCH ×2 (08:54→17:00)
[2021-08-30] MEDS: DAKINS QUARTER STRENGTH (0.125%) 480 ML BOTTLE TOP SCH (08:55)
[2021-08-30] MEDS: MICAFUNGIN SODIUM 100 MG in IV NS 0.9% 100 ML IV SCH (10:11)
[2021-08-30 12:28] LABS: BASOPHILS # (AUTO) 0.1 K/uL (0.0-0.2); BASOPHILS % (AUTO) 0.6 % (0.0-2.0); EOSINOPHILS % (AUTO) 2.5 % (0.0-6.0); HEMATOCRIT 25 % (33-45); HEMOGLOBIN 7.9 g/dL (11.5-14.8); LYMPHOCYTES # (AUTO) 1.4 K/uL (0.8-4.8); LYMPHOCYTES % (AUTO) 8.7 % (20.0-44.0); MEAN CORPUSCULAR HGB CONC 32 g/dl (31.0-36.0); MEAN CORPUSCULAR VOLUME 95 fL (82-100); MONOCYTES # (AUTO) 1.5 K/uL (0.1-1.30); MONOCYTES % (AUTO) 9.3 % (2.0-12.0); NEUTROPHILS # (AUTO) 12.9 K/uL (1.8-8.9); NEUTROPHILS % (AUTO) 78.9 % (43.0-81.0); PLATELET COUNT (AUTO) 664 K/uL (150-450); RED BLOOD CELL COUNT(AUTO) 2.59 MIL/uL (4.0-5.2); WHITE BLOOD COUNT (AUTO) 16.4 K/uL (4.3-11.0)
[2021-08-30 13:35] LABS: CALCIUM, SERUM 9.8 mg/dL (8.5-10.1); CARBON DIOXIDE 22 mmol/L (21-32); CHLORIDE 97 mmol/L (98-107); CREATININE 2.2 mg/dL (0.6-1.3); GLUCOSE 132 mg/dL (74-106); POTASSIUM 4.1 mmol/L (3.5-5.1); SODIUM SERUM 137 mmol/L (136-145); UREA NITROGEN, BLOOD 65 mg/dL (7-18)
[2021-08-30 13:41] LABS: ALANINE AMINOTRANSFERASE 55 U/L (12-78); ALBUMIN 1.7 g/dL (3.4-5.0); ALKALINE PHOSPHATASE 323 U/L (46-116); ASPARTATE AMINOTRANSFERASE 73 U/L (15-37); BILIRUBIN,TOTAL 0.5 mg/dL (0.2-1.0); TOTAL PROTEIN, SERUM 8.1 g/dL (6.4-8.2)
[2021-08-30] MEDS: ACETAMINOPHEN 325 MG TABLET PO PRN (13:49)
[2021-08-30] MEDS: CEFTAZIDIME/AVIBACTAM 0.94 GM in IV NS 0.9% 100 ML IV SCH (14:42)
[2021-08-30 17:13] LABS: EOSINOPHILS % (MANUAL) 5 % (0-4); LYMPHOCYTES % (MANUAL) 10 % (16-48); MONOCYTES % (MANUAL) 6 % (0-11.0); NEUTROPHILS % (MANUAL) 79 (42-76)
[2021-08-30] MEDS: AMLODIPINE BESYLATE 10 MG TABLET PO SCH (18:00)
[2021-08-30] MEDS: AMPICILLIN /SULBACTAM 3 G in IV NS 0.9% 50 ML IJ SCH (18:32)
--- NOTE | 2021-08-30 18:54 | NUR ---
RN CLOSING NOTE PATIENT SLEEP IN BED RESTING. AWAKEN TO VERBAL STIMULI. NON-VERBAL. NO S/S OF PAIN NOTED AT THIS TIME. PATIENT ON VENT, TRACH PRESENT PORTEX 7, AC 14, TV 500, FIO2 30, PEEP 5. IV ACCESS XIOMARA MIDLINE AND RCW HD CATH. PATIENT HAVE EXTERNAL REGULATOR ASSEMBLER WITH CURRENT READING OF S.R., HR OF 81. PATIENT HAS FLEXI SEAL AND PROCTOR CATH. FALL AND SAFETY MEASURES IN PLACE, BED ALARM ON, BED IN LOW AND LOCK POSITION, CALL LIGHT WITHIN EASY REACH, SIDE RAILS UP X2. WILL GIVE REPORT TO NIGHT NURSE FOR OTIS
--- NOTE | 2021-08-30 19:20 | NUR ---
TAILERCPA OPENING NOTE PATIENT ASLEEP IN BED RESTING, FAMILY IN ROOM. PATIENT IS OBTUNDED. AWAKEN TO VERBAL STIMULI. NON-VERBAL. NO S/S OF PAIN NOTED AT THIS TIME. . PATIENT ON VENT, TRACH PRESENT PORTEX 7, AC 14, TV 500, FIO2 30, PEEP 5. IV ACCESS XIOMARA MIDLINE AND RCW HD CATH. PATIENT HAVE EXTERNAL INSTRUCTIONAL SUPPORT ASSISTANT WITH CURRENT READING OF S.R. @82 BPM PATIENT HAS FLEXI SEAL AND PROCTOR CATH. FALL AND SAFETY MEASURES IN PLACE, BED ALARM ON, BED IN LOW AND LOCK POSITION, CALL LIGHT WITHIN EASY REACH, SIDE RAILS UP X2. WILL CONTINUE TO MONITOR.
[2021-08-30 20:00] VITALS: BP 160/68
[2021-08-30 20:29] VITALS: BP 160/68
[2021-08-30] MEDS: LATANOPROST EYE DROP 0.005% 2.5 ML BOTTLE OP SCH (21:19)
--- NOTE | 2021-08-30 23:30 | NUR ---
upkeep mechanic notes Pt's blood sugar at midnight 108. Held regular insulin per level ordered. . No S/S of hypoglycemia noted. Will continue to monitor.
[2021-08-31] VITALS (8 sets, daily range): BP systolic 112–162; BP diastolic 49–68
[2021-08-31] MEDS: NEPRO 1,000 ML BOTTLE GT PRN (00:13)
[2021-08-31] MEDS: IPRATROPIUM NEB FS 0.5 MG/2.5 ML AMPUL.NEB IH SCH ×4 (03:05→19:59)
[2021-08-31] MEDS: BLOOD SUGAR DIAGNOSTIC 1 EACH STRIP IN SCH ×4 (05:26→23:22)
[2021-08-31] MEDS: PHENYTOIN SODIUM IV 100 MG/2ML VIAL IV SCH ×3 (05:26→21:37)
[2021-08-31] MEDS: INSULIN REGULAR, HUMAN 100 UNIT/ML 3 ML VIAL SQ PRN ×4 (05:27→23:23)
--- NOTE | 2021-08-31 06:46 | NUR ---
EXPRESS MANAGER CLOSING NOTES PATIENT STILL ASLEEP IN BED RESTING. PATIENT IS OBTUNDED. AWAKEN TO VERBAL STIMULI. NON-VERBAL. STILL NO S/S OF PAIN NOTED AT THIS TIME. . PATIENT ON VENT, TRACH PRESENT PORTEX 7, AC 14, TV 500, FIO2 30, PEEP 5. IV ACCESS XIOMARA MIDLINE AND RCW HD CATH. PATIENT HAVE EXTERNAL MOLD REPAIR TECHNICIAN WITH CURRENT READING OF S.R. @77 BPM PATIENT HAS FLEXI SEAL AND PROCTOR CATH. WOUND CARE PROVIDED ORDERED. PATIENT IS CLEAN. FALL AND SAFETY MEASURES IN PLACE, BED ALARM ON, BED IN LOW AND LOCK POSITION, CALL LIGHT WITHIN EASY REACH, SIDE RAILS UP X2. WILL ENDORSE CONTINUITY OF CARE TO DAY SHIFT NURSE.
[2021-08-31 07:18] LABS: BASOPHILS # (AUTO) 0.1 K/uL (0.0-0.2); BASOPHILS % (AUTO) 0.5 % (0.0-2.0); EOSINOPHILS % (AUTO) 2.9 % (0.0-6.0); HEMATOCRIT 25 % (33-45); LYMPHOCYTES # (AUTO) 1.7 K/uL (0.8-4.8); LYMPHOCYTES % (AUTO) 10.5 % (20.0-44.0); MEAN CORPUSCULAR HGB CONC 32 g/dl (31.0-36.0); MEAN CORPUSCULAR VOLUME 95 fL (82-100); MONOCYTES # (AUTO) 1.4 K/uL (0.1-1.30); MONOCYTES % (AUTO) 8.8 % (2.0-12.0); NEUTROPHILS # (AUTO) 12.5 K/uL (1.8-8.9); NEUTROPHILS % (AUTO) 77.3 % (43.0-81.0); PLATELET COUNT (AUTO) 636 K/uL (150-450); RED BLOOD CELL COUNT(AUTO) 2.67 MIL/uL (4.0-5.2); WHITE BLOOD COUNT (AUTO) 16.2 K/uL (4.3-11.0)
[2021-08-31 07:24] LABS: CALCIUM, SERUM 9.5 mg/dL (8.5-10.1); CARBON DIOXIDE 24 mmol/L (21-32); CHLORIDE 98 mmol/L (98-107); CREATININE 2.6 mg/dL (0.6-1.3); GLUCOSE 132 mg/dL (74-106); POTASSIUM 3.8 mmol/L (3.5-5.1); SODIUM SERUM 136 mmol/L (136-145)
[2021-08-31 07:27] LABS: UREA NITROGEN, BLOOD 83 mg/dL (7-18)
[2021-08-31 07:30] LABS: ALANINE AMINOTRANSFERASE 59 U/L (12-78); ALBUMIN 1.7 g/dL (3.4-5.0); ALKALINE PHOSPHATASE 350 U/L (46-116); ASPARTATE AMINOTRANSFERASE 78 U/L (15-37); BILIRUBIN,TOTAL 0.5 mg/dL (0.2-1.0); TOTAL PROTEIN, SERUM 7.9 g/dL (6.4-8.2)
--- NOTE | 2021-08-31 07:41 | NUR ---
MAIL CARRIER TECHNICIAN OPENING NOTES: RECEIVED REPORT AT PATIENT BEDSIDE. PATIENT'S EYES CLOSED, RR EVEN AND UNLABORED. OPENS EYES TO TOUCH ONLY. UNABLE TO COMMUNICATE NEEDS EFFECTIVELY R/T BASELINE MENTATION AND PRE-EXISTING DX. REPOSITIONED, HEELS FLOATED, CLEAN LINENS OBSERVED AND CHANGED JUST PRIOR TO SHIFT CHANGE, DRESSINGS CDI, ORAL CARE PROVIDED. PATIENT IN NAD AND VSS AT THIS TIME.
[2021-08-31] MEDS: DAKINS QUARTER STRENGTH (0.125%) 480 ML BOTTLE TOP SCH (09:12)
[2021-08-31] MEDS: DORZOLAMIDE OPTH 2% 10 ML BOTTLE OP SCH ×2 (09:13→17:54)
[2021-08-31] MEDS: SEVELAMER CARBONATE 800 MG TABLET PO SCH ×3 (09:13→17:55)
[2021-08-31] MEDS: PANTOPRAZOLE 40 MG TABLET.DR PO SCH (09:13)
[2021-08-31] MEDS: CARVEDILOL 12.5 MG TABLET PO SCH ×2 (09:13→21:38)
[2021-08-31] MEDS: PHENOBARBITAL 30 MG TABLET PO SCH ×2 (09:14→17:56)
[2021-08-31] MEDS: ISOSORBIDE DINITRATE (20MG) 20 MG TABLET PO SCH ×3 (09:15→17:55)
[2021-08-31] MEDS: LABETALOL HCL (100MG) 100 MG TABLET PO SCH ×2 (09:15→21:38)
[2021-08-31] MEDS: CHLORHEXIDINE GLUCONATE 15 ML UDC MM SCH ×2 (09:16→17:55)
[2021-08-31] MEDS: METOCLOPRAMIDE HCL 10 MG TABLET PO SCH ×3 (09:21→17:56)
[2021-08-31] MEDS: PROSOURCE / PROSTAT (PYXIS) 30 ML UDC GT SCH ×2 (09:23→17:54)
[2021-08-31] MEDS: MICAFUNGIN SODIUM 100 MG in IV NS 0.9% 100 ML IV SCH (10:41)
[2021-08-31] MEDS: ACETAMINOPHEN 325 MG TABLET PO PRN (12:27)
--- NOTE | 2021-08-31 14:25 | NUR ---
FRUIT TESTER NOTE PATIENT STARTED ON HEMODIALYSIS ORDERED. WILL CONTINUE TO MONITOR PATIENT.
[2021-08-31] MEDS: AMPICILLIN /SULBACTAM 3 G in IV NS 0.9% 50 ML IJ SCH (17:46)
[2021-08-31] MEDS: AMLODIPINE BESYLATE 10 MG TABLET PO SCH (17:59)
[2021-08-31] MEDS ORDERED: MINERAL OIL/PETROLATUM,WHITE 120 GM JAR TP PRN (18:00)
--- NOTE | 2021-08-31 19:18 | NUR ---
SHERIFF DETECTIVE CLOSING NOTES: HD COMPLETED AT APPROXIMATELY 1730. 300ML REMOVED. DAUGHTER AT BEDSIDE. COMPLETE CARE, BED BATH AND FULL LINEN CHANGE PROVIDED. PATIENT IN NAD AND VSS AT THIS TIME.
--- NOTE | 2021-08-31 19:20 | NUR ---
hack saw operator opening notes Received Pt from morning nurse. Pt is resting in bed comfortably accompanied by her daughter. Pt is obtunded and able to open eyes. Pt is on vent trach with O2 sat is 100%. No SOB. No S/S of distress noted. XIOMARA midline is clean and intact. RCW permacath is clean and intact. Gtube feeding is running nephro 40 ml/hr with 0 residual. Pt tolerated well. Herring is intact and draining dark yellow urine. Flexiseal is intact. Tele monitor showed SR HR at 74. Safety precautions is maintained. Bed at low position, brakes locked, side rails upX3, bed alarm is on and call light is within reach. Will continue to monitor.
[2021-08-31] MEDS: LATANOPROST EYE DROP 0.005% 2.5 ML BOTTLE OP SCH (21:48)
--- NOTE | 2021-08-31 23:24 | NUR ---
bank appraiser notes Pt's blood sugar HS 111. No coverage is given per level ordered. Will continue to monitor.
[2021-09-01] VITALS (7 sets, daily range): BP systolic 75–161; BP diastolic 5–72
[2021-09-01] MEDS: ACETAMINOPHEN 325 MG TABLET PO PRN ×2 (00:36→20:48)
--- NOTE | 2021-09-01 00:37 | NUR ---
ferryboat captain notes Pt's having fever 101.8. administered tylenol 650 mg/gtube for fever. cooling measures is applied. Will continue to monitor.
[2021-09-01] MEDS: NEPRO 1,000 ML BOTTLE GT PRN (00:42)
[2021-09-01] MEDS: IPRATROPIUM NEB FS 0.5 MG/2.5 ML AMPUL.NEB IH SCH ×4 (02:01→20:11)
[2021-09-01] MEDS: PHENYTOIN SODIUM IV 100 MG/2ML VIAL IV SCH ×3 (04:20→20:50)
[2021-09-01] MEDS: BLOOD SUGAR DIAGNOSTIC 1 EACH STRIP IN SCH ×4 (05:28→23:59)
[2021-09-01] MEDS: INSULIN REGULAR, HUMAN 100 UNIT/ML 3 ML VIAL SQ PRN ×3 (05:32→17:24)
--- NOTE | 2021-09-01 06:08 | NUR ---
home insurance agent notes Pt's daughter called. Spoke and informed Pt's daughter that Pt's stable. no fever. resting comfortably. O2 sat is 100% on mech. vent. No SOB. No S/S of distress noted. also informed Pt is clean, dry and comfortable. Wound care provided as ordered. Pt's daughter appreciate the info.
--- NOTE | 2021-09-01 06:48 | NUR ---
legal document specialist closing notes Pt is resting in bed comfortably. Pt is obtunded and able to open eyes. Pt is on vent trach with O2 sat is 100%. No SOB. No S/S of distress noted. VS is stable. afebrile. XIOMARA midline is clean and intact. RCW permacath is clean and intact. Gtube feeding is running nephro 40 ml/hr with 0 residual. Pt tolerated well. Herring is intact and draining dark yellow urine 10 ml. Flexiseal is intact and draining 900 ml. Tele monitor showed SR HR at 67. Safety precautions is maintained. Bed at low position, brakes locked, side rails upX3, bed alarm is on and call light is within reach. Will endorse to am nurse for OTIS.
--- NOTE | 2021-09-01 07:31 | NUR ---
CONTENT CREATION MANAGER OPENING NOTES RECEIVED PT IN BED WITH EYES CLOSE IN NO ACUTE SIGN SOF DISTRESS. HOB ELEVATED. PT IS OBTUNDED WITH TRACH PORTEX # 7 CONNECTED TO MECHANICAL VENTILATOR AT SETTINGS OF AC 14, TV 500, FI02 30% AND PEEP 5, SP02 100% AT THIS TIME. TELE-MONITOR SHOWS NSR WITH HR ON THE 70'S. G-TUBE IN PLACE WITH GTF OF NEPRO AT 40ML/HR ONGOING, TOLERATING WELL. ASPIRATION PRECAUTIONS OBSERVED. XIOMARA MIDLINE INTACT, FLUSHED AND PATENT. RIGHT SUBCLAVIAN HD CATHETER IN PLACE WITH DRESSING C/D/I. PROCTOR IN PLACED WITH NO URINE OUTPUT NOTED AT THIS TIME. RECTAL FLEXI SEAL TUBE IN PLACE WITH BROWNISH WATERY STOOL NOTED. SAFETY MEASURES IN PLACE: BED IN LOWEST LOCKED POSITION, S/R UP X3 AND CALL LIGHT WITHIN REACH. CONTACT PRECAUTIONS MAINTAINED. WILL CONTINUE TO MONITOR PT ACCORDINGLY..
[2021-09-01 07:36] LABS: ALANINE AMINOTRANSFERASE 58 U/L (12-78); ALKALINE PHOSPHATASE 378 U/L (46-116); ASPARTATE AMINOTRANSFERASE 79 U/L (15-37); BILIRUBIN,TOTAL 0.5 mg/dL (0.2-1.0); CALCIUM, SERUM 10.4 mg/dL (8.5-10.1); CARBON DIOXIDE 26 mmol/L (21-32); CHLORIDE 96 mmol/L (98-107); CREATININE 1.7 mg/dL (0.6-1.3); GLUCOSE 181 mg/dL (74-106); POTASSIUM 3.8 mmol/L (3.5-5.1); SODIUM SERUM 131 mmol/L (136-145); TOTAL PROTEIN, SERUM 7.9 g/dL (6.4-8.2); UREA NITROGEN, BLOOD 49 mg/dL (7-18)
[2021-09-01 07:40] LABS: BASOPHILS # (AUTO) 0.1 K/uL (0.0-0.2); BASOPHILS % (AUTO) 0.4 % (0.0-2.0); EOSINOPHILS % (AUTO) 1.4 % (0.0-6.0); HEMATOCRIT 26 % (33-45); HEMOGLOBIN 8.3 g/dL (11.5-14.8); LYMPHOCYTES % (AUTO) 9.9 % (20.0-44.0); MEAN CORPUSCULAR HGB CONC 32 g/dl (31.0-36.0); MEAN CORPUSCULAR VOLUME 94 fL (82-100); MONOCYTES % (AUTO) 9.7 % (2.0-12.0); NEUTROPHILS # (AUTO) 15.9 K/uL (1.8-8.9); NEUTROPHILS % (AUTO) 78.6 % (43.0-81.0); PLATELET COUNT (AUTO) 605 K/uL (150-450); RED BLOOD CELL COUNT(AUTO) 2.76 MIL/uL (4.0-5.2); WHITE BLOOD COUNT (AUTO) 20.2 K/uL (4.3-11.0)
[2021-09-01] MEDS: PANTOPRAZOLE 40 MG TABLET.DR PO SCH (07:46)
[2021-09-01 07:59] LABS: ALBUMIN 1.7 g/dL (3.4-5.0)
[2021-09-01] MEDS: TOBRAMYCIN 80 MG in IV D5W 50 ML IV PRN (08:46)
[2021-09-01] MEDS: PROSOURCE / PROSTAT (PYXIS) 30 ML UDC GT SCH ×2 (08:46→17:23)
[2021-09-01] MEDS: CHLORHEXIDINE GLUCONATE 15 ML UDC MM SCH ×2 (08:47→17:23)
[2021-09-01] MEDS: METOCLOPRAMIDE HCL 10 MG TABLET PO SCH ×3 (08:48→17:23)
[2021-09-01] MEDS: CARVEDILOL 12.5 MG TABLET PO SCH ×2 (08:48→20:49)
[2021-09-01] MEDS: SEVELAMER CARBONATE 800 MG TABLET PO SCH ×3 (08:48→17:23)
[2021-09-01] MEDS: ISOSORBIDE DINITRATE (20MG) 20 MG TABLET PO SCH ×3 (08:48→17:00)
[2021-09-01] MEDS: PHENOBARBITAL 30 MG TABLET PO SCH ×2 (08:49→17:23)
[2021-09-01] MEDS: DORZOLAMIDE OPTH 2% 10 ML BOTTLE OP SCH ×2 (08:49→17:32)
[2021-09-01] MEDS: LABETALOL HCL (100MG) 100 MG TABLET PO SCH ×2 (08:49→20:50)
[2021-09-01] MEDS: DAKINS QUARTER STRENGTH (0.125%) 480 ML BOTTLE TOP SCH (08:50)
[2021-09-01 09:16] LABS: BAND % (MANUAL) 1 % (0.0-5.0); EOSINOPHILS % (MANUAL) 1 % (0-4); LYMPHOCYTES % (MANUAL) 8 % (16-48); METAMYELOCYTES % 1 % (0-0); MONOCYTES % (MANUAL) 7 % (0-11.0); NEUTROPHILS % (MANUAL) 82 (42-76)
[2021-09-01] MEDS: MICAFUNGIN SODIUM 100 MG in IV NS 0.9% 100 ML IV SCH (10:57)
--- NOTE | 2021-09-01 14:34 | NUR ---
RN NOTES SPUTUM SPECIMEN COLLECTED BY RT FOR CULTURE. CALLED LAB TO PICK-UP SPECIMEN.
[2021-09-01] MEDS: NS 0.9% IV SCH (14:45)
[2021-09-01] MEDS: DAPTOMYCIN IV SCH (14:45)
[2021-09-01] MEDS: EPOETIN ALFA-EPBX 4,000 UNIT/ML VIAL IV SCH (14:45)
[2021-09-01] MEDS: AMPICILLIN /SULBACTAM 3 G in IV NS 0.9% 50 ML IJ SCH (15:50)
[2021-09-01] MEDS: CEFTAZIDIME/AVIBACTAM 0.94 GM in IV NS 0.9% 100 ML IV SCH (16:30)
[2021-09-01] MEDS: AMLODIPINE BESYLATE 10 MG TABLET PO SCH (17:17)
--- NOTE | 2021-09-01 17:17 | NUR ---
RN NOTES PT 'S BP THIS AFTERNOON WAS 134/51MMHG, PT'S DAUGHTER AT BEDSIDE AND REFUSED BP MEDS TO BE GIVEN STATED THAT IT'S DIASTOLIC WAS LOW. WILL CONTINUE TO MONITOR.
--- NOTE | 2021-09-01 18:41 | NUR ---
BLENDER / COOK CLOSING NOTES PT IN BED LYING AT MODERATE HIGH BACKREST POSITION. HOB ELEVATED. DAUGHTER PRESENT AT BEDSIDE. PT IS OBTUNDED AND OPEN EYES ON AND OFF. PT WITH TRACH PORTEX # 7 CONNECTED TO MECHANICAL VENTILATOR AT SETTINGS OF: AC TV 500, R 14 FI02 30% AND PEEP 5, TOLERATING SETTINGS WELL WITH NO ACUTE RESPIRATORY DISTRESS NOTED DURING THE DAY. STRICT CONTACT PRECAUTIONS MAINTAINED. TELE-MONITOR SHOWS NSR WITH HR ON THE 70'S, NO S/SX OF CARDIAC DISTRESS OBSERVED. G-TUBE IN PLACE WITH GTF OF NEPRO AT 40ML/HR IN PROGRESS, TOLERATING WELL. ASPIRATION PRECAUTIONS OBSERVED. XIOMARA MIDLINE INTACT, FLUSHED AND PATENT. RIGHT SUBCLAVIAN HD CATHETER( PERMACATH) IN PLACE WITH DRESSING C/D/I. PROCTOR IN PLACED WITH NO URINE OUTPUT NOTED. RECTAL FLEXI SEAL TUBE IN PLACE WITH BROWNISH WATERY STOOL NOTED. PT TURNED AND REPOSITIONED Q 2HRS AND PRN. KEPT CLEAN, DRY AND COMFORTABLE AT ALL TIMES. SAFETY MEASURES IN PLACE: BED IN LOWEST LOCKED POSITION, S/R UP X3 AND CALL LIGHT WITHIN REACH. WILL ENDORSE OTIS TO EYELET ROW MARKER NURSE.
--- NOTE | 2021-09-01 19:30 | NUR ---
RN NOTE PT RECEIVED IN BED. DAUGHTER AT BEDSIDE. PT IS TRACH/VENT WITH SETTINGS AT P #7, AC:14, TV: 500, FIO2:30%, AND PEEP 5. TOLERATING VENT SETTINGS WELL WITH OXYGEN SATURATION AT 100%. PT IS OBTUNDED/NON-VERBAL. ON APPLE PEELER OPERATOR SHOWING NSR. FLEXI-SEAL AND PROCTOR CATH NOTED. GT RUNNING NEPRO AT 40 ML/HR. TOLERATING WELL WITH NO RESIDUAL NOTED. IV ACCESS NOTED ON LET UPPER ARM MIDLINE, LINE FLUSHED, PATENT, AND INTACT WITH NO S/SX OF INFILTRATION. RIGHT UPPER CHEST WALL PERMACATH NOTED WELL. DRESSING INTACT. ALL SAFETY MEASURES IMPLEMENTED. BED ALARM ON. BED LOCKED AND IN LOWEST POSITION. SIDE RAILS UP. WILL CONTINUE TO MONITOR AND ASSESS FOR ANY CHANGES DURING SHIFT.
--- NOTE | 2021-09-01 20:50 | NUR ---
RN NOTE PT TEMPERATURE IS 100.0. TYLENOL ADMINISTERED VIA G-TUBE AND COOLING MEASURES PROVIDED. WILL RE-ASSESS.
--- NOTE | 2021-09-01 22:00 | NUR ---
RN NOTE PT TEMPERATURE NOW 99.2. WILL CONTINUE TO MONITOR AND ASSESS FOR ANY CHANGES DURING SHIFT.
[2021-09-01] MEDS: LATANOPROST EYE DROP 0.005% 2.5 ML BOTTLE OP SCH (22:17)
--- NOTE | 2021-09-01 23:50 | NUR ---
RN NOTE SPOKE WITH DR. BHATIA ABOUT MULTIPLE SYSTOLIC BLOOD PRESSURE READINGS IN HIGH 60'S-70'S. DR. BHATIA ORDERED PROAMATINE 10MG RIGHT NOW, FOLLOWED UP BY ONE BAG OF ALBUMIN 25%, THAN 500CC BOLUS OF 0.9% NS, FOLLOWED BY ANOTHER BAG OF ALBUMIN. ALBUMIN LEVEL WAS 1.7. TOTAL OF 2 BAGS OF ALBUMIN AND 500CC BOLUS. ORDER NOTED AND CARRIED OUT. WILL CONTINUE TO MONITOR AND ASSESS FOR ANY CHANGES.
[2021-09-02] MEDS ORDERED: ALBUMIN 25% 25 GM in PREMIX 1 EA IV SCH
[2021-09-02] MEDS: MIDODRINE HCL (5MG) 5 MG TABLET PO PRN (00:02)
[2021-09-02] MEDS ORDERED: ALBUMIN 25% 100 ML IV ONE (00:07)
[2021-09-02] MEDS ORDERED: IV NS 0.9% 500 ML IV ONE ×2 (00:30→01:00)
[2021-09-02] MEDS ORDERED: ALBUMIN 25% 25 GM in PREMIX 1 EA IV ONE (00:30)
[2021-09-02] MEDS: IPRATROPIUM NEB FS 0.5 MG/2.5 ML AMPUL.NEB IH SCH ×4 (02:00→20:27)
[2021-09-02 04:29] VITALS: BP 149/64
[2021-09-02] MEDS: PHENYTOIN SODIUM IV 100 MG/2ML VIAL IV SCH ×3 (06:00→21:54)
[2021-09-02] MEDS: BLOOD SUGAR DIAGNOSTIC 1 EACH STRIP IN SCH ×4 (06:20→23:56)
--- NOTE | 2021-09-02 06:46 | NUR ---
RN NOTE PT IN BED RESTING COMFORTABLY. PT IS TRACH/VENT WITH SETTINGS AT P #7, AC:14, TV: 500, FIO2:30%, AND PEEP 5. TOLERATING VENT SETTINGS WELL WITH OXYGEN SATURATION AT 100%. PT IS OBTUNDED/NON-VERBAL. FLEXI-SEAL OUTPUT WAS 450 ML. PROCTOR OUTPUT WAS 50 ML. GT RUNNING NEPRO AT 40 ML/HR. TOLERATING WELL WITH NO RESIDUAL NOTED. IV ACCESS NOTED ON LET UPPER ARM MIDLINE, LINE FLUSHED, PATENT, AND INTACT WITH NO S/SX OF INFILTRATION. ALL DUE MEDS GIVEN ORDERED. PT KEPT CLEAN AND COMFORTABLE. DRESSING INTACT. ALL SAFETY MEASURES IMPLEMENTED. BED ALARM ON. BED LOCKED AND IN LOWEST POSITION. SIDE RAILS UP. WILL ENDORSE TO MORNING SHIFT RN FOR OTIS.
--- NOTE | 2021-09-02 07:18 | NUR ---
SORT WORKER OPENING NOTES RECEIVED PT IN BED RESTING IN SEMI-FOWLERS POSITION. ON ROOM AIR, TOLERATING WELL, BREATHING EVEN AND UNLABORED. ON TELE MONITORING. IV SL IN RIGHT HAND G#22 INTACT, PATENT AND FLUSHES WELL. PERMACATH ON THE RIGHT CHEST WALL. SAFETY PRECAUTIONS MAINTAINED: BED LOCKED AND IN LOWEST POSITION, SIDE-RAILS UPx2. WILL CONTINUE TO MONITOR.
[2021-09-02] MEDS: PANTOPRAZOLE 40 MG TABLET.DR PO SCH (08:06)
[2021-09-02] MEDS: METOCLOPRAMIDE HCL 10 MG TABLET PO SCH ×3 (08:08→17:31)
[2021-09-02] MEDS: SEVELAMER CARBONATE 800 MG TABLET PO SCH ×3 (08:08→17:32)
[2021-09-02 08:09] LABS: BASOPHILS # (AUTO) 0.1 K/uL (0.0-0.2); BASOPHILS % (AUTO) 0.5 % (0.0-2.0); EOSINOPHILS % (AUTO) 1.7 % (0.0-6.0); HEMATOCRIT 25 % (33-45); HEMOGLOBIN 8.1 g/dL (11.5-14.8); LYMPHOCYTES % (AUTO) 10.8 % (20.0-44.0); MEAN CORPUSCULAR HGB CONC 32 g/dl (31.0-36.0); MEAN CORPUSCULAR VOLUME 94 fL (82-100); MONOCYTES # (AUTO) 1.8 K/uL (0.1-1.30); MONOCYTES % (AUTO) 10.1 % (2.0-12.0); NEUTROPHILS # (AUTO) 13.9 K/uL (1.8-8.9); NEUTROPHILS % (AUTO) 76.9 % (43.0-81.0); PLATELET COUNT (AUTO) 600 K/uL (150-450); RED BLOOD CELL COUNT(AUTO) 2.71 MIL/uL (4.0-5.2); WHITE BLOOD COUNT (AUTO) 18.1 K/uL (4.3-11.0)
[2021-09-02 08:21] LABS: ALANINE AMINOTRANSFERASE 40 U/L (12-78); ALKALINE PHOSPHATASE 298 U/L (46-116); ASPARTATE AMINOTRANSFERASE 36 U/L (15-37); BILIRUBIN,TOTAL 0.5 mg/dL (0.2-1.0); CALCIUM, SERUM 10.3 mg/dL (8.5-10.1); CARBON DIOXIDE 24 mmol/L (21-32); CHLORIDE 97 mmol/L (98-107); CREATININE 2.2 mg/dL (0.6-1.3); GLUCOSE 106 mg/dL (74-106); POTASSIUM 3.7 mmol/L (3.5-5.1); SODIUM SERUM 133 mmol/L (136-145); UREA NITROGEN, BLOOD 69 mg/dL (7-18)
[2021-09-02] MEDS: DORZOLAMIDE OPTH 2% 10 ML BOTTLE OP SCH ×2 (09:24→17:13)
[2021-09-02] MEDS: DAKINS QUARTER STRENGTH (0.125%) 480 ML BOTTLE TOP SCH (09:24)
[2021-09-02] MEDS: PROSOURCE / PROSTAT (PYXIS) 30 ML UDC GT SCH ×2 (09:25→17:03)
[2021-09-02] MEDS: LABETALOL HCL (100MG) 100 MG TABLET PO SCH ×2 (09:25→22:10)
[2021-09-02] MEDS: ISOSORBIDE DINITRATE (20MG) 20 MG TABLET PO SCH ×3 (09:26→17:02)
[2021-09-02] MEDS: CARVEDILOL 12.5 MG TABLET PO SCH ×2 (09:27→22:04)
[2021-09-02] MEDS: CHLORHEXIDINE GLUCONATE 15 ML UDC MM SCH ×2 (09:28→17:01)
[2021-09-02] MEDS: PHENOBARBITAL 30 MG TABLET PO SCH ×2 (09:30→17:01)
[2021-09-02] MEDS: MICAFUNGIN SODIUM 100 MG in IV NS 0.9% 100 ML IV SCH (11:03)
[2021-09-02 11:15] LABS: BAND % (MANUAL) 5 % (0.0-5.0); EOSINOPHILS % (MANUAL) 1 % (0-4); LYMPHOCYTES % (MANUAL) 8 % (16-48); METAMYELOCYTES % 3 % (0-0); MONOCYTES % (MANUAL) 8 % (0-11.0); NEUTROPHILS % (MANUAL) 75 (42-76)
[2021-09-02] MEDS: INSULIN REGULAR, HUMAN 100 UNIT/ML 3 ML VIAL SQ PRN ×2 (11:43→17:16)
--- NOTE | 2021-09-02 13:40 | NUR ---
RN NOTES PATIENT HAD HEMODIALYSIS VIA RIGHT CHEST PERMA CATH TOLERATED THE PROCEDURE WELL WITH 1700ML OUTPUT.
[2021-09-02] MEDS: NEPRO 1,000 ML BOTTLE GT PRN (14:31)
--- NOTE | 2021-09-02 15:36 | NUR ---
APS Report: VOLODYMYR made APS report Intake #Intake ID [id number].
[2021-09-02] MEDS: AMPICILLIN /SULBACTAM 3 G in IV NS 0.9% 50 ML IJ SCH (15:54)
[2021-09-02] MEDS: ACETAMINOPHEN 325 MG TABLET PO PRN ×2 (16:20→23:00)
--- NOTE | 2021-09-02 17:24 | NUR ---
RN NOTES PATIENT HAD HEMODIALYSIS TODAY, PER PHARMACIST RADHA, HOLD TOBRAMYCIN IV FOR NOW POST HD UNTIL RESULTS OF TOBRAMYCIN RANDOM RESULTS COMES OUT. WILL ENDORSE.
[2021-09-02] MEDS: AMLODIPINE BESYLATE 10 MG TABLET PO SCH (17:32)
--- NOTE | 2021-09-02 18:44 | NUR ---
MECHANICAL PROCESS ENGINEER CLOSING NOTES PT IN BED LYING AT MODERATE HIGH BACKREST POSITION. DAUGHTER PRESENT AT BEDSIDE. PT IS OBTUNDED AND OPEN EYES ON AND OFF. PT WITH TRACH PORTEX # 7 CONNECTED TO MECHANICAL VENTILATOR AT SETTINGS OF: AC TV 500, R 14 FI02 30% AND PEEP 5, TOLERATING SETTINGS WELL WITH NO ACUTE RESPIRATORY DISTRESS NOTED DURING THE DAY. STRICT CONTACT PRECAUTIONS MAINTAINED. TELE-MONITOR SHOWS SR WITH HR ON THE 60'S, NO S/SX OF CARDIAC DISTRESS OBSERVED. G-TUBE IN PLACE WITH GTF OF NEPRO AT 40ML/HR TOLERATING WELL. ASPIRATION PRECAUTIONS OBSERVED. XIOMARA MIDLINE INTACT AND PATENT. RIGHT CHEST HD CATHETER( PERMACATH) IN PLACE WITH DRESSING DRY AND INTACT,HEMODIALYSIS DONE TODAY,TOLERATED WELL.. PROCTOR IN PLACED WITH NO URINE OUTPUT NOTED. RECTAL FLEXI SEAL TUBE IN PLACE WITH BROWNISH WATERY STOOL NOTED. WOUND CARE DONE. PT TURNED AND REPOSITIONED Q 2HRS AND PRN. KEPT CLEAN, DRY AND COMFORTABLE AT ALL TIMES. SAFETY MEASURES IN PLACE: BED IN LOWEST LOCKED POSITION, S/R UP X3. WILL ENDORSE TO ELECTRIC LOCOMOTIVE FIRER/FIREMAN NURSE.
[2021-09-02 20:00] VITALS: BP 129/53
--- NOTE | 2021-09-02 20:00 | NUR ---
TOMBSTONE SETTER OPENING NOTES PATIENT IN BED WITH EYES CLOSED, PT IS OBTUNDED/NON-VERBAL, DAUGHTER AT BEDSIDE. PT IS HAS TRACH/VENT WITH SETTINGS AT P #7, AC:14, TV: 500, FIO2:30%, AND PEEP 5. TOLERATING VENT SETTINGS WELL WITH OXYGEN SATURATION AT 100%. PT ON EXTERNAL DITCH REPAIRER READING SINUS RHYTHM, HR: 76. FLEXI-SEAL AND PROCTOR CATH NOTED. GT INTACT AND RUNNING NEPRO AT 40 ML/HR. IV ACCESS NOTED ON LEFT UPPER ARM MIDLINE, INTACT AND FLUSHING WELL. RIGHT UPPER CHEST WALL PERMACATH NOTED WELL. SAFETY MEASURES IN PLACE: BED ALARM ON, BED LOCKED IN LOWEST POSITION, SIDE RAILS UP X 3. WILL CONTINUE TO MONITOR AND ASSESS FOR ANY CHANGES DURING SHIFT.
--- NOTE | 2021-09-02 23:00 | NUR ---
CODING CLERK NOTE PATIENT HAS TEMP OF 100.5. TYLENOL 650 MG GIVEN ORDERED. WILL CONTINUE TO MONITOR PATIENT
[2021-09-02] MEDS: LATANOPROST EYE DROP 0.005% 2.5 ML BOTTLE OP SCH (23:10)
[2021-09-03] VITALS: BP 114/58
[2021-09-03] MEDS: IPRATROPIUM NEB FS 0.5 MG/2.5 ML AMPUL.NEB IH SCH ×5 (01:43→20:11)
[2021-09-03 04:00] VITALS: BP 126/63
[2021-09-03] MEDS: PHENYTOIN SODIUM IV 100 MG/2ML VIAL IV SCH ×3 (05:07→21:10)
[2021-09-03] MEDS: ACETAMINOPHEN 325 MG TABLET PO PRN ×2 (05:07→23:54)
--- NOTE | 2021-09-03 05:10 | NUR ---
ACURA SALES CONSULTANT NOTE PT HAS TEMP OF 99.0. TYLENOL 650 MG GIVEN ORDERED. WILL CONTINUE TO MONITOR PATIENT
[2021-09-03] MEDS: BLOOD SUGAR DIAGNOSTIC 1 EACH STRIP IN SCH ×3 (06:34→17:20)
[2021-09-03] MEDS: INSULIN REGULAR, HUMAN 100 UNIT/ML 3 ML VIAL SQ PRN (06:35)
--- NOTE | 2021-09-03 07:24 | NUR ---
MAGAZINE REPAIRER CLOSING NOTES PATIENT IN BED WITH EYES CLOSED, PT IS OBTUNDED/NON-VERBAL, NO SIGNIFICANT CHANGES THROUGHOUT SHIFT OTHER THAN LOW GRADE FEVER. PT IS HAS TRACH/VENT WITH SETTINGS AT P #7, AC:14, TV: 500, FIO2:30%, AND PEEP 5, TOLERATING VENT SETTINGS WELL WITH OXYGEN SATURATION AT 100%. PT ON EXTERNAL CASH PERSON READING SINUS RHYTHM. FLEXI-SEAL AND PROCTOR CATH INTACT. GT INTACT AND RUNNING NEPRO AT 40 ML/HR. IV ACCESS ON LEFT UPPER ARM MIDLINE, INTACT AND SALINE LOCKED. RIGHT UPPER CHEST WALL PERMACATH NOTED WELL. MEDICATIONS GIVEN ORDERED, PT NEEDS MET THROUGHOUT SHIFT. WOUND CARE ON SACRUM COMPLETED. SAFETY MEASURES IN PLACE: BED ALARM ON, BED LOCKED IN LOWEST POSITION, SIDE RAILS UP X 3. ENDORSED TO DAY SHIFT NURSE FOR CONTINUITY OF CARE
--- NOTE | 2021-09-03 07:37 | NUR ---
AX SURVEY WORKER OPENING NOTES PATIENT IN BED WITH EYES CLOSED, PT IS OBTUNDED/NON-VERBAL. PT IS TRACH/VENT DEPENDANT WITH SETTINGS AT P #7, AC:14, TV: 500, FIO2:30%, AND PEEP 5, TOLERATING VENT SETTINGS WELL WITH OXYGEN SATURATION AT 100%. PT ON EXTERNAL FISCAL SPECIALIST READING SINUS RHYTHM 65 BPM. FLEXI-SEAL AND PROCTOR CATH INTACT. G-TUBE INTACT AND RUNNING NEPRO AT 40 ML/HR. XIOMARA MIDLINE, INTACT AND SALINE LOCKED. RIGHT UPPER CHEST WALL PERMCATH NOTED WELL. SAFETY PRECAUTIONS IN PLACE; BED IN LOW POSITION AND LOCKED, RAILS P X2, CALL LIGHT WITHIN REACH. WILL CONTINUE TO MONITOR PATIENT.
[2021-09-03 08:00] VITALS: BP 108/35
[2021-09-03] MEDS: SEVELAMER CARBONATE 800 MG TABLET PO SCH ×3 (08:36→17:18)
[2021-09-03] MEDS: PHENOBARBITAL 30 MG TABLET PO SCH ×2 (08:36→16:35)
[2021-09-03] MEDS: PANTOPRAZOLE 40 MG TABLET.DR PO SCH (08:36)
[2021-09-03] MEDS: METOCLOPRAMIDE HCL 10 MG TABLET PO SCH ×3 (08:36→17:18)
[2021-09-03] MEDS: PROSOURCE / PROSTAT (PYXIS) 30 ML UDC GT SCH ×2 (08:36→16:40)
[2021-09-03] MEDS: CHLORHEXIDINE GLUCONATE 15 ML UDC MM SCH ×2 (08:36→16:34)
[2021-09-03] MEDS: DORZOLAMIDE OPTH 2% 10 ML BOTTLE OP SCH ×2 (08:38→16:40)
[2021-09-03] MEDS: DAKINS QUARTER STRENGTH (0.125%) 480 ML BOTTLE TOP SCH (08:38)
[2021-09-03] MEDS: ISOSORBIDE DINITRATE (20MG) 20 MG TABLET PO SCH ×3 (08:49→16:35)
[2021-09-03] MEDS: CARVEDILOL 12.5 MG TABLET PO SCH ×2 (08:49→21:11)
[2021-09-03] MEDS: LABETALOL HCL (100MG) 100 MG TABLET PO SCH ×2 (08:50→21:12)
[2021-09-03 10:04] LABS: BASOPHILS # (AUTO) 0.1 K/uL (0.0-0.2); BASOPHILS % (AUTO) 0.4 % (0.0-2.0); EOSINOPHILS % (AUTO) 2.7 % (0.0-6.0); HEMATOCRIT 26 % (33-45); HEMOGLOBIN 8.3 g/dL (11.5-14.8); LYMPHOCYTES # (AUTO) 1.8 K/uL (0.8-4.8); LYMPHOCYTES % (AUTO) 11.1 % (20.0-44.0); MEAN CORPUSCULAR HGB CONC 32 g/dl (31.0-36.0); MEAN CORPUSCULAR VOLUME 94 fL (82-100); MONOCYTES # (AUTO) 1.6 K/uL (0.1-1.30); MONOCYTES % (AUTO) 9.9 % (2.0-12.0); NEUTROPHILS # (AUTO) 12.6 K/uL (1.8-8.9); NEUTROPHILS % (AUTO) 75.9 % (43.0-81.0); PLATELET COUNT (AUTO) 613 K/uL (150-450); RED BLOOD CELL COUNT(AUTO) 2.78 MIL/uL (4.0-5.2); WHITE BLOOD COUNT (AUTO) 16.5 K/uL (4.3-11.0)
[2021-09-03] MEDS: MICAFUNGIN SODIUM 100 MG in IV NS 0.9% 100 ML IV SCH (10:34)
[2021-09-03 10:48] LABS: ALANINE AMINOTRANSFERASE 42 U/L (12-78); ALKALINE PHOSPHATASE 355 U/L (46-116); ASPARTATE AMINOTRANSFERASE 62 U/L (15-37); BILIRUBIN,TOTAL 0.5 mg/dL (0.2-1.0); CALCIUM, SERUM 9.8 mg/dL (8.5-10.1); CARBON DIOXIDE 25 mmol/L (21-32); CHLORIDE 99 mmol/L (98-107); CREATININE 1.8 mg/dL (0.6-1.3); GLUCOSE 142 mg/dL (74-106); POTASSIUM 3.5 mmol/L (3.5-5.1); SODIUM SERUM 137 mmol/L (136-145); TOTAL PROTEIN, SERUM 8.2 g/dL (6.4-8.2); UREA NITROGEN, BLOOD 51 mg/dL (7-18)
[2021-09-03 12:00] VITALS: BP 140/45
[2021-09-03] MEDS: DAPTOMYCIN IV SCH (14:52)
[2021-09-03] MEDS: NS 0.9% IV SCH (14:52)
[2021-09-03] MEDS: EPOETIN ALFA-EPBX 4,000 UNIT/ML VIAL IV SCH (15:29)
[2021-09-03] MEDS: CEFTAZIDIME/AVIBACTAM 0.94 GM in IV NS 0.9% 100 ML IV SCH (15:30)
[2021-09-03 16:00] VITALS: BP 140/58
[2021-09-03] MEDS: AMLODIPINE BESYLATE 10 MG TABLET PO SCH (17:18)
[2021-09-03] MEDS: AMPICILLIN /SULBACTAM 3 G in IV NS 0.9% 50 ML IJ SCH (17:52)
--- NOTE | 2021-09-03 18:37 | NUR ---
DENTAL OFFICE MANAGER CLOSING NOTES PATIENT IN BED WITH EYES CLOSED, PT IS OBTUNDED/NON-VERBAL. PT IS TRACH/VENT DEPENDANT WITH SETTINGS AT P #7, AC:14, TV: 500, FIO2:30%, AND PEEP 5, TOLERATING VENT SETTINGS WELL WITH OXYGEN SATURATION AT 100%. PT ON EXTERNAL CHEF HEAD READING SINUS RHYTHM 70S BPM. FLEXI-SEAL AND PROCTOR CATH INTACT. G-TUBE INTACT AND RUNNING NEPRO AT 40 ML/HR. XIOMARA MIDLINE, INTACT AND SALINE LOCKED. RIGHT UPPER CHEST WALL PERMCATH NOTED WELL. ALL NEEDS ATTENDED DURING THE DAY. SAFETY PRECAUTIONS IN PLACE; BED IN LOW POSITION AND LOCKED, RAILS P X2, CALL LIGHT WITHIN REACH. WILL ENDORSE TO CHEMICAL LABORATORY CHIEF NURSE FOR OTIS.
[2021-09-03 19:58] VITALS: BP 134/56
--- NOTE | 2021-09-03 20:00 | NUR ---
BRAKE MACHINE OPERATOR OPENING NOTES: RECEIVED PATIENT SLEEP IN BED COMFORTABLY, BED IN LOW POSITION, CALL LIGHTS WITHIN REACH, NO COMPLAIN OF PAIN AND DISCOMFORT AT THIS TIME, NO FACIAL GRIMACING WAS OBSERVED, ON G TUBE FEEDING NEPHRO 1.8 @40ML PER HOUR INFUSING WELL, FLUSH WITH 50CC OF WATER Q6HR, ON FLEXISEAL NO LEAKAGE AND CLEAN ON PROCTOR CATHETER WITH 50ML URINE OUTPUT, PATIENT WAS TURN Q2H CURRENTLY ON RIGHT SIDE, WITH XIOMARA MIDLINE SL, WITH RT CHEST WALL PERMACATH, ON SCHEDULE DIALYSIS TOMM AT 0700AM, PATIENT KEPT CLEAN AND DRY, ALL NEEDS MET WILL CONTINUE TO MONITOR,
--- NOTE | 2021-09-03 21:00 | NUR ---
RN NOTES: PATIENT WAS NOTES WITH 100 DEGREE F, TEMP COLD COMPRESS GIVEN, BILATERAL, ARMPIT PROVIDED WILL ICE PACK WILL CONTINUE TO MONITOR.
[2021-09-03] MEDS: NEPRO 1,000 ML BOTTLE GT PRN (22:22)
[2021-09-03] MEDS: LATANOPROST EYE DROP 0.005% 2.5 ML BOTTLE OP SCH (22:26)
[2021-09-04] MEDS: BLOOD SUGAR DIAGNOSTIC 1 EACH STRIP IN SCH ×4 (00:24→17:25)
[2021-09-04] MEDS: IPRATROPIUM NEB FS 0.5 MG/2.5 ML AMPUL.NEB IH SCH ×4 (01:43→20:12)
[2021-09-04 03:58] VITALS: BP 112/46
[2021-09-04] MEDS: PHENYTOIN SODIUM IV 100 MG/2ML VIAL IV SCH ×3 (05:31→20:44)
--- NOTE | 2021-09-04 06:30 | NUR ---
RN NOTES: MIDODRINE 10 MG GIVEN FOR BP 90/51
[2021-09-04] MEDS: MIDODRINE HCL (5MG) 5 MG TABLET PO PRN (06:40)
[2021-09-04 06:51] LABS: CALCIUM, SERUM 9.6 mg/dL (8.5-10.1); CARBON DIOXIDE 26 mmol/L (21-32); CHLORIDE 97 mmol/L (98-107); CREATININE 2.2 mg/dL (0.6-1.3); GLUCOSE 151 mg/dL (74-106); POTASSIUM 3.4 mmol/L (3.5-5.1); SODIUM SERUM 136 mmol/L (136-145); UREA NITROGEN, BLOOD 66 mg/dL (7-18)
[2021-09-04 06:52] LABS: BASOPHILS # (AUTO) 0.1 K/uL (0.0-0.2); BASOPHILS % (AUTO) 0.6 % (0.0-2.0); EOSINOPHILS % (AUTO) 3.1 % (0.0-6.0); HEMATOCRIT 22 % (33-45); HEMOGLOBIN 7.2 g/dL (11.5-14.8); LYMPHOCYTES # (AUTO) 1.8 K/uL (0.8-4.8); LYMPHOCYTES % (AUTO) 10.7 % (20.0-44.0); MEAN CORPUSCULAR HGB CONC 33 g/dl (31.0-36.0); MEAN CORPUSCULAR VOLUME 94 fL (82-100); MONOCYTES # (AUTO) 1.2 K/uL (0.1-1.30); MONOCYTES % (AUTO) 7.5 % (2.0-12.0); NEUTROPHILS % (AUTO) 78.1 % (43.0-81.0); PLATELET COUNT (AUTO) 568 K/uL (150-450); RED BLOOD CELL COUNT(AUTO) 2.33 MIL/uL (4.0-5.2); WHITE BLOOD COUNT (AUTO) 16.7 K/uL (4.3-11.0)
[2021-09-04 06:57] LABS: ALANINE AMINOTRANSFERASE 86 U/L (12-78); ALBUMIN 1.8 g/dL (3.4-5.0); ALKALINE PHOSPHATASE 391 U/L (46-116); ASPARTATE AMINOTRANSFERASE 142 U/L (15-37); BILIRUBIN,TOTAL 0.4 mg/dL (0.2-1.0); TOTAL PROTEIN, SERUM 7.7 g/dL (6.4-8.2)
--- NOTE | 2021-09-04 07:15 | NUR ---
RN NOTES: ALBUMIN IV 100ML GIVEN FOR BP 98/48
[2021-09-04] MEDS: ALBUMIN 25% 25 GM in PREMIX 1 EA IV PRN (07:25)
--- NOTE | 2021-09-04 07:30 | NUR ---
MS TELE CLOSING NOTES: PATIENT WAS PLACED IN BED COMFORTABLY, BED IN LOW POSITION, CALL LIGHTS WITHIN REACH, NO COMPLAIN OF PAIN AND DISCOMFORT AT THIS TIME, ON G TUBE FEEDING NEPHRO 1.8 @40 ML /HR INFUSING WELL, PATIENT WITH FLEXISEAL, ON PROCTOR CATHETER 100CC URINE OUTPUT, WITH ONGOING DIALYSIS VITAL SIGN ARE MONITORED, PATIENT KEPT CLEAN AND DRY, DRESSING CHANGED, ALL NEEDS MET WILL ENDORSE TO INCOMING SHIFT.
--- NOTE | 2021-09-04 07:38 | NUR ---
RN NOTES: [id number]- NO INSULIN GIVEN PATIENT ON HEMODIALYSIS SCHEDULE
[2021-09-04 08:00] VITALS: BP 110/61
--- NOTE | 2021-09-04 08:07 | NUR ---
MATTRESS FINISHER OPENING NOTES RECEIVED Pt ASLEEP IN BED COMFORTABLY, NO SIGNS OF PAIN OR DISTRESS AT THIS TIME. NO FACIAL GRIMACING WAS NOTICED. Pt IS ON FLEXISEAL AND PROCTOR CATHETER, NO LEAKAGE NOTICED. Pt HAS XIOMARA MIDLINE SL, WITH RT CHEST WALL PERMACATH, Pt KEPT CLEAN AND DRY, ALL NEEDS MET AT THIS TIME, SAFETY ,MEASURES ARE IN PLACE; BED IS LOCKED AND IN LOWEST POSITION WITH 2 SIDE RAILS UP. WILL CONTINUE TO MONITOR THROUGHOUT THE SHIFT,
[2021-09-04] MEDS: CHLORHEXIDINE GLUCONATE 15 ML UDC MM SCH ×2 (08:52→17:12)
[2021-09-04] MEDS: PROSOURCE / PROSTAT (PYXIS) 30 ML UDC GT SCH ×2 (08:52→17:12)
[2021-09-04] MEDS: PHENOBARBITAL 30 MG TABLET PO SCH ×2 (08:53→17:12)
[2021-09-04] MEDS: SEVELAMER CARBONATE 800 MG TABLET PO SCH ×3 (08:53→17:17)
[2021-09-04] MEDS: PANTOPRAZOLE 40 MG TABLET.DR PO SCH (08:55)
[2021-09-04] MEDS: METOCLOPRAMIDE HCL 10 MG TABLET PO SCH ×3 (08:55→17:12)
[2021-09-04] MEDS: ISOSORBIDE DINITRATE (20MG) 20 MG TABLET PO SCH ×3 (08:57→17:13)
[2021-09-04] MEDS: LABETALOL HCL (100MG) 100 MG TABLET PO SCH ×2 (08:57→20:45)
[2021-09-04] MEDS: CARVEDILOL 12.5 MG TABLET PO SCH ×2 (08:57→20:46)
--- NOTE | 2021-09-04 08:57 | NUR ---
RN NOTES: MEDICATIONS NOT ADMINISTERING BP MEDS DUE TO Pt'S MORNING BP BEING 110/61 AND HR: 78. Pt CURRENTLY DOING HEMODIALYSIS WELL.
[2021-09-04] MEDS: DORZOLAMIDE OPTH 2% 10 ML BOTTLE OP SCH ×2 (09:00→17:14)
[2021-09-04] MEDS: DAKINS QUARTER STRENGTH (0.125%) 480 ML BOTTLE TOP SCH (09:00)
[2021-09-04] MEDS: INSULIN REGULAR, HUMAN 100 UNIT/ML 3 ML VIAL SQ PRN (09:22)
[2021-09-04] MEDS: TOBRAMYCIN 80 MG in IV D5W 50 ML IV PRN (11:28)
[2021-09-04 12:00] VITALS: BP 175/75
[2021-09-04] MEDS: ACETAMINOPHEN 325 MG TABLET PO PRN ×2 (12:22→20:44)
[2021-09-04] MEDS: AMPICILLIN /SULBACTAM 3 G in IV NS 0.9% 50 ML IJ SCH (15:50)
[2021-09-04 16:00] VITALS: BP 132/59
[2021-09-04] MEDS: AMLODIPINE BESYLATE 10 MG TABLET PO SCH (17:13)
--- NOTE | 2021-09-04 18:44 | NUR ---
LOAN DOCUMENTATION SPECIALIST CLOSING NOTES: Pt IS IN BED, NON-VERBAL AND OBTUNDED. NO SIGNS OF PAIN OR DISCOMFORT NOTICED AT THIS TIME. G TUBE FEEDING IS ON NEPHRO 1.8 AT 40mL/hr AND IS INFUSING WELL. Pt's FLEXISEAL, AND PROCTOR CATHETER AND ARE IN PLACE. Pt HAS A L UM MIDLINE SL THAT IS INTACT AND PATENT. A R CHEST WALL PERMCATH. Pt KEPT CLEAN AND DRY, ALL NEEDS MET AT THIS TIME AND WILL ENDORSE TO ONCOMING SHIFT. Addendum: 09/04/21 at 1854 by MARLEN LEW RN ALL SAFETY MEASURES ARE IN PLACE: BED IS LOCKED AND IN LOWEST POSITION, 2 SIDE RAILS UP CALL LIGHT IS WITHIN REACH. FAMILY MEMBER IS AT BEDSIDE.
--- NOTE | 2021-09-04 19:44 | NUR ---
LEVEL VIAL CURVATURE GAUGER OPENING NOTES: RECEIVED PT IN BED, WITH EYES CLOSED, FAMILY MEMBER AT [facility]. PT IS NONVERBAL AND OBTUNDED. NO SIGNS OF PAIN OR DISCOMFORT NOTICED AT THIS TIME. G TUBE FEEDING IS ON NEPHRO 1.8 AT 40 ML/HR. FLEXISEAL AND PROCTOR CATHETER AND ARE IN PLACE. IV ACCESS IS XIOMARA MIDLINE AND R CHEST WALL PERMACATH. IV IS INTACT, PATENT, AND FLUSHING WELL. SAFETY MEASURES IN PLACE: BED IS LOCKED, LOWEST POSITION, SIDE RAILS UPx2, AND BRAKES ON. CALL LIGHT AND TABLE WITHIN REACH. WILL CONTINUE TO MONITOR. Addendum: 09/05/21 at 0013 by WADE DEL TORO RN TELE MONITOR DETECTS SINUS RHYTHM WITH RATE OF 84.
[2021-09-04 20:00] VITALS: BP 158/66
[2021-09-04] MEDS: LATANOPROST EYE DROP 0.005% 2.5 ML BOTTLE OP SCH (20:47)
--- NOTE | 2021-09-04 23:15 | NUR ---
ADMINISTERED TYLENOL FOR FEVER. ALSO PROVIDED COOLING MEASURES. WILL CONTINUE TO MONITOR.
[2021-09-05] VITALS: BP 108/59
[2021-09-05] MEDS: BLOOD SUGAR DIAGNOSTIC 1 EACH STRIP IN SCH ×4 (00:04→18:45)
[2021-09-05] MEDS: INSULIN REGULAR, HUMAN 100 UNIT/ML 3 ML VIAL SQ PRN (00:09)
[2021-09-05] MEDS: IPRATROPIUM NEB FS 0.5 MG/2.5 ML AMPUL.NEB IH SCH ×4 (01:36→20:13)
[2021-09-05 04:00] VITALS: BP 110/61
[2021-09-05] MEDS: NEPRO 1,000 ML BOTTLE GT PRN (04:36)
[2021-09-05] MEDS: PHENYTOIN SODIUM IV 100 MG/2ML VIAL IV SCH ×3 (04:36→21:23)
--- NOTE | 2021-09-05 06:47 | NUR ---
MACHINE CLOTHING WORKER CLOSING NOTES: PT IN BED, WITH EYES CLOSED. PT IS NONVERBAL AND OBTUNDED. NO SIGNS OF PAIN OR DISCOMFORT NOTICED AT THIS TIME. G TUBE FEEDING IS ON NEPHRO 1.8 AT 40 ML/HR. TELE MONITOR DETECTS SINUS RHYTHM WITH RATE OF 75-85. FLEXISEAL AND PROCTOR CATHETER AND ARE IN PLACE. IV ACCESS IS XIOMARA MIDLINE AND R CHEST WALL PERMACATH. IV IS INTACT, PATENT, AND FLUSHING WELL. ALL NEEDS MET. PT KEPT CLEAN AND DRY. WOUND CARE PROVIDED. SAFETY MEASURES IN PLACE: BED IS LOCKED, LOWEST POSITION, SIDE RAILS UPx2, AND BRAKES ON. CALL LIGHT AND TABLE WITHIN REACH. WILL ENDORSE TO ONCOMING SHIFT FOR OTIS
[2021-09-05 07:07] LABS: BASOPHILS # (AUTO) 0.1 K/uL (0.0-0.2); BASOPHILS % (AUTO) 0.5 % (0.0-2.0); EOSINOPHILS % (AUTO) 2.7 % (0.0-6.0); HEMATOCRIT 25 % (33-45); HEMOGLOBIN 7.9 g/dL (11.5-14.8); LYMPHOCYTES % (AUTO) 10.5 % (20.0-44.0); MEAN CORPUSCULAR HGB CONC 32 g/dl (31.0-36.0); MEAN CORPUSCULAR VOLUME 94 fL (82-100); MONOCYTES # (AUTO) 1.9 K/uL (0.1-1.30); NEUTROPHILS # (AUTO) 14.6 K/uL (1.8-8.9); NEUTROPHILS % (AUTO) 76.3 % (43.0-81.0); PLATELET COUNT (AUTO) 582 K/uL (150-450); RED BLOOD CELL COUNT(AUTO) 2.61 MIL/uL (4.0-5.2); WHITE BLOOD COUNT (AUTO) 19.1 K/uL (4.3-11.0)
[2021-09-05 07:12] LABS: CALCIUM, SERUM 10.1 mg/dL (8.5-10.1); CARBON DIOXIDE 26 mmol/L (21-32); CHLORIDE 98 mmol/L (98-107); CREATININE 1.8 mg/dL (0.6-1.3); GLUCOSE 130 mg/dL (74-106); POTASSIUM 3.4 mmol/L (3.5-5.1); SODIUM SERUM 136 mmol/L (136-145); UREA NITROGEN, BLOOD 56 mg/dL (7-18)
[2021-09-05 07:18] LABS: ALANINE AMINOTRANSFERASE 79 U/L (12-78); ALBUMIN 2.2 g/dL (3.4-5.0); ALKALINE PHOSPHATASE 362 U/L (46-116); ASPARTATE AMINOTRANSFERASE 87 U/L (15-37); BILIRUBIN,TOTAL 0.5 mg/dL (0.2-1.0); TOTAL PROTEIN, SERUM 8.2 g/dL (6.4-8.2)
--- NOTE | 2021-09-05 07:59 | NUR ---
COOK RAILROAD OPENING NOTES: PT IN BED, RESTING. PT IS NONVERBAL, NO SOB, NO RR DISTRESS NOTED, ON TELE MONITOR READING SR HR 70, O2 100%, ON TRACH VENT. G TUBE FEEDING ON NEPHRO AT 40 ML/HR. FLEXISEAL AND PROCTOR CATHETER INTACT, IV ACCESS IN LEFT UPPER ARM MIDLINE AND RIGHT CHEST WALL PERMACATHETER IV IS INTACT. SAFETY PRECCAUTIONS MET, BED IS LOCKED, LOWEST POSITION, SIDE RAILS UPx2, AND BRAKES ON. CALL LIGHT AND TABLE WITHIN REACH.
[2021-09-05 08:25] VITALS: BP 124/37
[2021-09-05] MEDS: ISOSORBIDE DINITRATE (20MG) 20 MG TABLET PO SCH ×3 (09:00→17:47)
[2021-09-05] MEDS: CHLORHEXIDINE GLUCONATE 15 ML UDC MM SCH ×2 (09:17→17:47)
[2021-09-05] MEDS: PROSOURCE / PROSTAT (PYXIS) 30 ML UDC GT SCH ×2 (09:17→17:55)
[2021-09-05] MEDS: LABETALOL HCL (100MG) 100 MG TABLET PO SCH ×2 (09:19→21:23)
[2021-09-05] MEDS: PANTOPRAZOLE 40 MG TABLET.DR PO SCH (09:19)
[2021-09-05] MEDS: PHENOBARBITAL 30 MG TABLET PO SCH ×2 (09:19→17:47)
[2021-09-05] MEDS: SEVELAMER CARBONATE 800 MG TABLET PO SCH ×3 (09:19→18:28)
[2021-09-05] MEDS: METOCLOPRAMIDE HCL 10 MG TABLET PO SCH ×3 (09:20→18:28)
[2021-09-05] MEDS: CARVEDILOL 12.5 MG TABLET PO SCH ×2 (09:21→21:22)
[2021-09-05] MEDS: DAKINS QUARTER STRENGTH (0.125%) 480 ML BOTTLE TOP SCH (09:22)
[2021-09-05] MEDS: LATANOPROST EYE DROP 0.005% 2.5 ML BOTTLE OP SCH ×2 (09:24→22:10)
[2021-09-05] MEDS: DORZOLAMIDE OPTH 2% 10 ML BOTTLE OP SCH ×2 (09:44→17:48)
[2021-09-05] MEDS: ACETAMINOPHEN 325 MG TABLET PO PRN ×2 (10:25→20:05)
[2021-09-05] MEDS ORDERED: POTASSIUM CL. PREMIX PERIPHER. 50 ML IV SCH (10:30)
--- NOTE | 2021-09-05 11:45 | NUR ---
PT IN BED, TEMP 100.4, ADMINISTERED TYLENOL 650 MG PRN VIA G TUBE, PLACED 5 ICE PACK BAGS UNDER ARM, BEHIND NECK, ON CHEST, ON FACE WITH COLD WET CLOTH ON FOREHEAD. PT TEMP LOWERED TO 99.4 AT THIS TIME. WILL MONITOR CLOSELY.
[2021-09-05] MEDS: DAPTOMYCIN IV SCH (14:48)
[2021-09-05] MEDS: NS 0.9% IV SCH (14:48)
[2021-09-05 16:00] VITALS: BP 167/69
[2021-09-05] MEDS: EPOETIN ALFA-EPBX 4,000 UNIT/ML VIAL IV SCH (16:08)
[2021-09-05] MEDS: CEFTAZIDIME/AVIBACTAM 0.94 GM in IV NS 0.9% 100 ML IV SCH (16:15)
[2021-09-05] MEDS: AMPICILLIN /SULBACTAM 3 G in IV NS 0.9% 50 ML IJ SCH (17:48)
[2021-09-05] MEDS: AMLODIPINE BESYLATE 10 MG TABLET PO SCH (18:28)
--- NOTE | 2021-09-05 19:02 | NUR ---
ORACLE APPLICATION CONSULTANT CLOSING NOTES PT IS NONVERBAL , NO SOB, NO RR DISTRESS NOTED, ON TELE MONITOR READING SR HR 67, O2 100%, ON TRACH VENT. G TUBE FEEDING ON NEPHRO AT 40 ML/HR. FLEXI SEAL AND PROCTOR CATHETER INTACT, IV ACCESS IN LEFT UPPER ARM MIDLINE AND RIGHT CHEST WALL PERMACATHETER IV IS INTACT. SAFETY PRECAUTIONS MET, BED IS LOCKED, LOWEST POSITION, SIDE RAILS UPx2, AND BRAKES ON. CALL LIGHT AND TABLE WITHIN REACH. WILL ENDORSE TO NEXT SHIFT FOR CONTINUITY OF CARE.
--- NOTE | 2021-09-05 19:50 | NUR ---
BUSINESS PROPOSAL REP OPENING NOTES PATIENT IN BED WITH EYES CLOSED, PT IS OBTUNDED/NON-VERBAL, DAUGHTER AT BEDSIDE. PT IS HAS TRACH/VENT WITH SETTINGS AT P #7, AC:14, TV: 500, FIO2:30%, AND PEEP 5. TOLERATING VENT SETTINGS WELL WITH OXYGEN SATURATION AT 100%. PT ON EXTERNAL SPECIAL SERVICE REPRESENTATIVE READING SINUS RHYTHM, HR: 80. FLEXI-SEAL AND PROCTOR CATH NOTED AND IN PLACE. GT INTACT AND RUNNING NEPRO AT 40 ML/HR. IV ACCESS NOTED ON LEFT UPPER ARM MIDLINE, INTACT AND FLUSHING WELL. RIGHT UPPER CHEST WALL PERMACATH NOTED WELL. SAFETY MEASURES IN PLACE: BED ALARM ON, BED LOCKED IN LOWEST POSITION, SIDE RAILS UP X 3, HOB ELEVATED. WILL CONTINUE TO MONITOR AND ASSESS FOR ANY CHANGES DURING SHIFT.
[2021-09-05 20:00] VITALS: BP 168/67
--- NOTE | 2021-09-05 20:10 | NUR ---
COLLECTION CLERK NOTE PT NOTED WITH 101.2 FEVER. TYLENOL 650 MG GIVEN VIA GT TUBE. COOL CLOTH PLACED ON FOREHEAD AND ICE PACKS PLACED ON BODY. WILL CONTINUE TO MONITOR PATIENT
[2021-09-06] VITALS (8 sets, daily range): BP systolic 148–163; BP diastolic 58–79
[2021-09-06] MEDS: BLOOD SUGAR DIAGNOSTIC 1 EACH STRIP IN SCH ×4 (00:19→17:53)
[2021-09-06] MEDS: IPRATROPIUM NEB FS 0.5 MG/2.5 ML AMPUL.NEB IH SCH ×4 (01:58→19:21)
[2021-09-06] MEDS: PHENYTOIN SODIUM IV 100 MG/2ML VIAL IV SCH ×3 (05:17→21:54)
[2021-09-06] MEDS: ACETAMINOPHEN 325 MG TABLET PO PRN ×2 (05:57→20:07)
--- NOTE | 2021-09-06 06:00 | NUR ---
PRINTER APPRENTICE NOTES PT NOTED WITH TEMP OF 100.1, TYLENOL 650 MG GIVEN VIA GTUBE. WILL CONTINUE TO MONITOR PATIENT
[2021-09-06] MEDS: INSULIN REGULAR, HUMAN 100 UNIT/ML 3 ML VIAL SQ PRN (06:53)
[2021-09-06 07:01] LABS: CALCIUM, SERUM 9.7 mg/dL (8.5-10.1); CARBON DIOXIDE 27 mmol/L (21-32); CHLORIDE 96 mmol/L (98-107); CREATININE 2.2 mg/dL (0.6-1.3); GLUCOSE 134 mg/dL (74-106); POTASSIUM 3.9 mmol/L (3.5-5.1); SODIUM SERUM 135 mmol/L (136-145); UREA NITROGEN, BLOOD 79 mg/dL (7-18)
[2021-09-06 07:02] LABS: BASOPHILS # (AUTO) 0.1 K/uL (0.0-0.2); BASOPHILS % (AUTO) 0.6 % (0.0-2.0); EOSINOPHILS % (AUTO) 2.5 % (0.0-6.0); HEMATOCRIT 24 % (33-45); HEMOGLOBIN 7.9 g/dL (11.5-14.8); LYMPHOCYTES # (AUTO) 1.9 K/uL (0.8-4.8); LYMPHOCYTES % (AUTO) 10.1 % (20.0-44.0); MEAN CORPUSCULAR HGB CONC 32 g/dl (31.0-36.0); MEAN CORPUSCULAR VOLUME 94 fL (82-100); MONOCYTES # (AUTO) 1.7 K/uL (0.1-1.30); NEUTROPHILS # (AUTO) 14.8 K/uL (1.8-8.9); NEUTROPHILS % (AUTO) 77.8 % (43.0-81.0); PLATELET COUNT (AUTO) 569 K/uL (150-450)
[2021-09-06 07:07] LABS: ALANINE AMINOTRANSFERASE 76 U/L (12-78); ALKALINE PHOSPHATASE 364 U/L (46-116); ASPARTATE AMINOTRANSFERASE 89 U/L (15-37); BILIRUBIN,TOTAL 0.5 mg/dL (0.2-1.0); TOTAL PROTEIN, SERUM 8.1 g/dL (6.4-8.2)
--- NOTE | 2021-09-06 07:30 | NUR ---
WAVE SOLDER OFFBEARER CLOSING NOTES PATIENT IN BED WITH EYES CLOSED, PT IS OBTUNDED/NON-VERBAL. PT IS HAS TRACH/VENT WITH SETTINGS AT P #7, AC:14, TV: 500, FIO2:30%, AND PEEP 5, TOLERATING VENT SETTINGS WELL WITH OXYGEN SATURATION AT 100%. PT ON EXTERNAL COMMERCIAL LEASE ADMINISTRATOR READING SINUS RHYTHM. FLEXI-SEAL AND PROCTOR CATH INTACT. GT INTACT AND RUNNING NEPRO AT 40 ML/HR. IV ACCESS ON LEFT UPPER ARM MIDLINE, INTACT AND SALINE LOCKED. RIGHT UPPER CHEST WALL PERMACATH NOTED WELL. MEDICATIONS GIVEN ORDERED, PT NEEDS MET THROUGHOUT SHIFT. WOUND CARE ON SACRUM COMPLETED. SAFETY MEASURES IN PLACE: BED ALARM ON, BED LOCKED IN LOWEST POSITION, SIDE RAILS UP X 3, HOB ELEVATED. ENDORSED TO DAY SHIFT NURSE FOR CONTINUITY OF CARE
[2021-09-06] MEDS: METOCLOPRAMIDE HCL 10 MG TABLET PO SCH ×3 (08:00→17:52)
[2021-09-06] MEDS: LABETALOL HCL (100MG) 100 MG TABLET PO SCH ×3 (10:14→21:55)
[2021-09-06] MEDS: CHLORHEXIDINE GLUCONATE 15 ML UDC MM SCH ×2 (10:14→17:54)
[2021-09-06] MEDS: ISOSORBIDE DINITRATE (20MG) 20 MG TABLET PO SCH ×3 (10:14→17:52)
[2021-09-06] MEDS: PHENOBARBITAL 30 MG TABLET PO SCH ×2 (10:14→17:53)
[2021-09-06] MEDS: DAKINS QUARTER STRENGTH (0.125%) 480 ML BOTTLE TOP SCH (10:15)
[2021-09-06] MEDS: SEVELAMER CARBONATE 800 MG TABLET PO SCH ×3 (10:20→17:52)
[2021-09-06] MEDS: CARVEDILOL 12.5 MG TABLET PO SCH ×3 (10:20→21:55)
[2021-09-06] MEDS: PANTOPRAZOLE 40 MG TABLET.DR PO SCH (10:20)
[2021-09-06] MEDS: DORZOLAMIDE OPTH 2% 10 ML BOTTLE OP SCH ×2 (10:21→17:54)
[2021-09-06] MEDS: PROSOURCE / PROSTAT (PYXIS) 30 ML UDC GT SCH ×2 (10:21→17:54)
[2021-09-06] MEDS: AMPICILLIN /SULBACTAM 3 G in IV NS 0.9% 50 ML IJ SCH (16:20)
[2021-09-06] MEDS: AMLODIPINE BESYLATE 10 MG TABLET PO SCH (17:53)
--- NOTE | 2021-09-06 20:00 | NUR ---
MANAGER SECURITY OPENING NOTES PATIENT IN BED WITH EYES CLOSED, PT IS OBTUNDED/NON-VERBAL, DAUGHTER AT BEDSIDE. PT IS HAS TRACH/VENT WITH SETTINGS AT P #7, AC:14, TV: 500, FIO2:30%, AND PEEP 5. TOLERATING VENT SETTINGS WELL WITH OXYGEN SATURATION AT 100%. PT ON EXTERNAL YARN SIZER READING SINUS RHYTHM. FLEXI-SEAL AND PROCTOR CATH NOTED AND IN PLACE. GT INTACT AND RUNNING NEPRO AT 40 ML/HR. IV ACCESS NOTED ON LEFT UPPER ARM MIDLINE, INTACT AND FLUSHING WELL. RIGHT UPPER CHEST WALL PERMACATH NOTED WELL. SAFETY MEASURES IN PLACE: BED ALARM ON, BED LOCKED IN LOWEST POSITION, SIDE RAILS UP X 3, HOB ELEVATED. WILL CONTINUE TO MONITOR AND ASSESS FOR ANY CHANGES DURING SHIFT.
--- NOTE | 2021-09-06 20:10 | NUR ---
HORTICULTURE INSTRUCTOR NOTE PATIENT NOTED WITH TEMP OF 99.9. TYLENOL 650 MG GIVEN VIA G TUBE. ICE PACKS AND COOL CLOTHS ALSO PLACED ON BODY. WILL CONTINUE TO MONITOR PATIENT
--- NOTE | 2021-09-06 22:00 | NUR ---
RETAIL CUSTODIAL ASSOCIATE NOTE DID NOT ADMINISTER COREG AND LABETALOL BECAUSE BP WAS 114/47, HR: 71 WHEN I REASSESSED BP. WILL CONTINUE TO MONITOR PATIENT
[2021-09-06] MEDS: LATANOPROST EYE DROP 0.005% 2.5 ML BOTTLE OP SCH (22:45)
[2021-09-07] VITALS: BP 125/53
[2021-09-07] MEDS: BLOOD SUGAR DIAGNOSTIC 1 EACH STRIP IN SCH ×4 (00:30→18:26)
[2021-09-07] MEDS: INSULIN REGULAR, HUMAN 100 UNIT/ML 3 ML VIAL SQ PRN ×2 (00:35→06:56)
[2021-09-07] MEDS: IPRATROPIUM NEB FS 0.5 MG/2.5 ML AMPUL.NEB IH SCH ×5 (01:41→20:19)
[2021-09-07 04:00] VITALS: BP 142/64
[2021-09-07] MEDS: PHENYTOIN SODIUM IV 100 MG/2ML VIAL IV SCH ×3 (05:08→21:17)
--- NOTE | 2021-09-07 07:30 | NUR ---
MILLWRIGHT INSTRUCTOR OPENING NOTES RECEIVED PATIENT IN BED WITH EYES CLOSED, PT IS OBTUNDED/NON-VERBAL. PT HAS TRACH/VENT WITH SETTINGS AT P #7, AC:14, TV: 500, FIO2:30%, AND PEEP 5, TOLERATING VENT SETTINGS WELL WITH OXYGEN SATURATION AT 100%. ON TELEMONITOR CURRENTLY READING SINUS RHYTHM. WITH FLEXI-SEAL AND PROCTOR CATH INTACT. ON NEPRO FEEDING AT 40ML/HR VIA G-TUBE. WITH IV ACCESS ON LEFT UPPER ARM MIDLINE, INTACT AND SALINE LOCKED. WITH RIGHT UPPER CHEST WALL PERMACATH. SAFETY MEASURES IN PLACE: BED ALARM ON, BED LOCKED IN LOWEST POSITION, SIDE RAILS UP X 3, HOB ELEVATED. WILL CONTINUE TO MONITOR.
--- NOTE | 2021-09-07 07:33 | NUR ---
ASSISTANT ATHLETIC TRAINER CLOSING NOTES PATIENT IN BED WITH EYES CLOSED, PT IS OBTUNDED/NON-VERBAL. PT IS HAS TRACH/VENT WITH SETTINGS AT P #7, AC:14, TV: 500, FIO2:30%, AND PEEP 5, TOLERATING VENT SETTINGS WELL WITH OXYGEN SATURATION AT 100%. PT ON EXTERNAL FIELD SERVICE TECHNICIAN POULTRY READING SINUS RHYTHM. FLEXI-SEAL AND PROCTOR CATH INTACT. GT INTACT AND RUNNING NEPRO AT 40 ML/HR. IV ACCESS ON LEFT UPPER ARM MIDLINE, INTACT AND SALINE LOCKED. RIGHT UPPER CHEST WALL PERMACATH NOTED WELL. MEDICATIONS GIVEN ORDERED, PT NEEDS MET THROUGHOUT SHIFT. WOUND CARE COMPLETED. SAFETY MEASURES IN PLACE: BED ALARM ON, BED LOCKED IN LOWEST POSITION, SIDE RAILS UP X 3, HOB ELEVATED. ENDORSED TO DAY SHIFT NURSE FOR CONTINUITY OF CARE
[2021-09-07 07:43] LABS: BASOPHILS # (AUTO) 0.1 K/uL (0.0-0.2); BASOPHILS % (AUTO) 0.5 % (0.0-2.0); HEMATOCRIT 25 % (33-45); HEMOGLOBIN 8.1 g/dL (11.5-14.8); LYMPHOCYTES # (AUTO) 1.8 K/uL (0.8-4.8); LYMPHOCYTES % (AUTO) 9.8 % (20.0-44.0); MEAN CORPUSCULAR HGB CONC 32 g/dl (31.0-36.0); MEAN CORPUSCULAR VOLUME 93 fL (82-100); MONOCYTES # (AUTO) 1.6 K/uL (0.1-1.30); MONOCYTES % (AUTO) 8.9 % (2.0-12.0); NEUTROPHILS # (AUTO) 14.4 K/uL (1.8-8.9); NEUTROPHILS % (AUTO) 77.8 % (43.0-81.0); PLATELET COUNT (AUTO) 558 K/uL (150-450); RED BLOOD CELL COUNT(AUTO) 2.71 MIL/uL (4.0-5.2); WHITE BLOOD COUNT (AUTO) 18.5 K/uL (4.3-11.0)
[2021-09-07 08:07] LABS: ALANINE AMINOTRANSFERASE 94 U/L (12-78); ALBUMIN 1.9 g/dL (3.4-5.0); ALKALINE PHOSPHATASE 413 U/L (46-116); ASPARTATE AMINOTRANSFERASE 117 U/L (15-37); BILIRUBIN,TOTAL 0.5 mg/dL (0.2-1.0); CALCIUM, SERUM 10.3 mg/dL (8.5-10.1); CARBON DIOXIDE 25 mmol/L (21-32); CHLORIDE 96 mmol/L (98-107); CREATININE 2.7 mg/dL (0.6-1.3); GLUCOSE 134 mg/dL (74-106); POTASSIUM 4.1 mmol/L (3.5-5.1); SODIUM SERUM 135 mmol/L (136-145); TOTAL PROTEIN, SERUM 8.2 g/dL (6.4-8.2)
[2021-09-07 08:15] LABS: UREA NITROGEN, BLOOD 106 mg/dL (7-18)
[2021-09-07] MEDS: METOCLOPRAMIDE HCL 10 MG TABLET PO SCH ×3 (08:19→17:49)
[2021-09-07] MEDS: SEVELAMER CARBONATE 800 MG TABLET PO SCH ×3 (08:19→17:48)
[2021-09-07] MEDS: PROSOURCE / PROSTAT (PYXIS) 30 ML UDC GT SCH ×2 (08:19→16:52)
[2021-09-07] MEDS: PANTOPRAZOLE 40 MG TABLET.DR PO SCH (08:19)
[2021-09-07] MEDS: CHLORHEXIDINE GLUCONATE 15 ML UDC MM SCH ×2 (08:30→16:50)
[2021-09-07] MEDS: DORZOLAMIDE OPTH 2% 10 ML BOTTLE OP SCH ×2 (08:31→16:56)
[2021-09-07 08:33] VITALS: BP 150/77
[2021-09-07] MEDS: DAKINS QUARTER STRENGTH (0.125%) 480 ML BOTTLE TOP SCH (08:36)
[2021-09-07] MEDS: ISOSORBIDE DINITRATE (20MG) 20 MG TABLET PO SCH ×3 (09:00→18:47)
[2021-09-07] MEDS: LABETALOL HCL (100MG) 100 MG TABLET PO SCH ×2 (09:00→21:00)
[2021-09-07] MEDS: CARVEDILOL 12.5 MG TABLET PO SCH ×2 (09:00→21:17)
[2021-09-07] MEDS: PHENOBARBITAL 30 MG TABLET PO SCH ×2 (09:00→16:51)
[2021-09-07 09:46] LABS: EOSINOPHILS % (MANUAL) 2 % (0-4); LYMPHOCYTES % (MANUAL) 14 % (16-48); MONOCYTES % (MANUAL) 8 % (0-11.0); NEUTROPHILS % (MANUAL) 76 (42-76)
[2021-09-07] MEDS: ALBUMIN 25% 25 GM in PREMIX 1 EA IV PRN (11:17)
[2021-09-07 12:00] VITALS: BP 137/59
[2021-09-07] MEDS: NEPRO 1,000 ML BOTTLE GT PRN (12:17)
[2021-09-07] MEDS: DAPTOMYCIN IV SCH (15:13)
[2021-09-07] MEDS: NS 0.9% IV SCH (15:13)
[2021-09-07] MEDS: AMPICILLIN /SULBACTAM 3 G in IV NS 0.9% 50 ML IJ SCH (15:48)
[2021-09-07] MEDS: TOBRAMYCIN 80 MG in IV D5W 50 ML IV PRN (16:34)
[2021-09-07] MEDS: CEFTAZIDIME/AVIBACTAM 0.94 GM in IV NS 0.9% 100 ML IV SCH (17:09)
[2021-09-07 17:11] VITALS: BP 125/69
[2021-09-07] MEDS: AMLODIPINE BESYLATE 10 MG TABLET PO SCH (18:00)
--- NOTE | 2021-09-07 18:55 | NUR ---
HALL COORDINATOR CLOSING NOTES PATIENT IN BED WITH EYES CLOSED, PT IS OBTUNDED/NON-VERBAL. PT HAS TRACH/VENT WITH SETTINGS AT P #7, AC:14, TV: 500, FIO2:30%, AND PEEP 5, TOLERATING VENT SETTINGS WELL WITH OXYGEN SATURATION AT 100%. ON TELEMONITOR CURRENTLY READING SINUS RHYTHM. WITH FLEXI-SEAL AND PROCTOR CATH INTACT. ON NEPRO FEEDING AT 40ML/HR VIA G-TUBE. WITH IV ACCESS ON LEFT UPPER ARM MIDLINE, INTACT AND SALINE LOCKED. WITH RIGHT UPPER CHEST WALL PERMACATH. DUE MEDS GIVEN. SAFETY MEASURES IN PLACE: BED ALARM ON, BED LOCKED IN LOWEST POSITION, SIDE RAILS UP X 3, HOB ELEVATED. WILL ENDORSE TO NEXT SHIFT FOR OTIS.
--- NOTE | 2021-09-07 19:20 | NUR ---
FARMWORKER PULLET FARM OPENING NOTES PT IN BED, EYES CLOSED, OBTUNDED, NONVERBAL. PT ON TRACH/VENT AND TOLERATING WELL. IV SITE: XIOMARA MIDLINE INTACT/PATENT/FLUSHES WELL. PERMA-CATH ON R-CHEST WALL INTACT WITH DRESSING C/D/I. ON GTF NEPRO @40ML/HR. WITH F/C AND FLEXI-SEAL IN PLACE AND FUNCTIONING WELL. ON TELE MONITOR READING SR, HR 73. PT'S DAUGHTER AT BEDSIDE. SAFETY MEASURES IN PLACE, BED IN LOWEST LOCKED POSITION, S/R UPX2, CALL LIGHT WITHIN REACH. WILL CONT TO MONITOR.
[2021-09-07 20:00] VITALS: BP 129/54
--- NOTE | 2021-09-07 22:00 | NUR ---
RN NOTE TEMP 100.4. COOLING MEASURES DONE
[2021-09-07] MEDS: LATANOPROST EYE DROP 0.005% 2.5 ML BOTTLE OP SCH (22:01)
[2021-09-08] VITALS: BP 100/44
--- NOTE | 2021-09-08 | NUR ---
RN NOTE TEMP 99.3 AT THIS TIME
[2021-09-08] MEDS: BLOOD SUGAR DIAGNOSTIC 1 EACH STRIP IN SCH ×4 (00:04→18:33)
[2021-09-08] MEDS: IPRATROPIUM NEB FS 0.5 MG/2.5 ML AMPUL.NEB IH SCH ×4 (01:58→20:17)
[2021-09-08 04:00] VITALS: BP 134/49
--- NOTE | 2021-09-08 04:00 | NUR ---
RN NOTE TEMP 98.7
[2021-09-08] MEDS: PHENYTOIN SODIUM IV 100 MG/2ML VIAL IV SCH ×3 (05:07→21:18)
[2021-09-08 06:14] LABS: BASOPHILS # (AUTO) 0.1 K/uL (0.0-0.2); BASOPHILS % (AUTO) 0.4 % (0.0-2.0); EOSINOPHILS % (AUTO) 3.3 % (0.0-6.0); HEMATOCRIT 24 % (33-45); HEMOGLOBIN 7.7 g/dL (11.5-14.8); LYMPHOCYTES % (AUTO) 10.5 % (20.0-44.0); MEAN CORPUSCULAR HGB CONC 33 g/dl (31.0-36.0); MEAN CORPUSCULAR VOLUME 93 fL (82-100); MONOCYTES # (AUTO) 1.9 K/uL (0.1-1.30); MONOCYTES % (AUTO) 9.8 % (2.0-12.0); NEUTROPHILS # (AUTO) 14.6 K/uL (1.8-8.9); PLATELET COUNT (AUTO) 556 K/uL (150-450); RED BLOOD CELL COUNT(AUTO) 2.54 MIL/uL (4.0-5.2); WHITE BLOOD COUNT (AUTO) 19.2 K/uL (4.3-11.0)
--- NOTE | 2021-09-08 07:02 | NUR ---
RELATIONSHIP MANAGEMENT LEAD CLOSING NOTES PT RESTING COMFORTABLY IN BED, OBTUNDED, NONVERBAL. ON TRACH/VENT AND TOLERATING WELL. IV SITE: XIOMARA MIDLINE INTACT/PATENT/FLUSHES WELL. PERMA-CATH ON R-CHEST WALL INTACT WITH DRESSING C/D/I. ONGOING GTF NEPRO @40ML/HR, RESHMA. WELL. F/C IN PLACE, NO URINE. PT ANURIC. FLEXI-SEAL IN PLACE AND DRAINING WELL. TELE MONITOR READING SR, HR 64. NO ACUTE DISTRESS NOTED. SAFETY MEASURES MAINTAINED.
[2021-09-08 07:18] LABS: ALANINE AMINOTRANSFERASE 69 U/L (12-78); ALBUMIN 2.3 g/dL (3.4-5.0); ALKALINE PHOSPHATASE 352 U/L (46-116); ASPARTATE AMINOTRANSFERASE 68 U/L (15-37); BILIRUBIN,TOTAL 0.5 mg/dL (0.2-1.0); CALCIUM, SERUM 10.5 mg/dL (8.5-10.1); CARBON DIOXIDE 25 mmol/L (21-32); CHLORIDE 93 mmol/L (98-107); CREATININE 1.9 mg/dL (0.6-1.3); GLUCOSE 124 mg/dL (74-106); SODIUM SERUM 131 mmol/L (136-145); TOTAL PROTEIN, SERUM 8.4 g/dL (6.4-8.2); UREA NITROGEN, BLOOD 60 mg/dL (7-18)
[2021-09-08 08:16] VITALS: BP 163/63
[2021-09-08] MEDS: PANTOPRAZOLE 40 MG TABLET.DR PO SCH (08:46)
[2021-09-08] MEDS: CHLORHEXIDINE GLUCONATE 15 ML UDC MM SCH ×2 (08:46→16:47)
[2021-09-08] MEDS: CARVEDILOL 12.5 MG TABLET PO SCH ×2 (08:47→21:39)
[2021-09-08] MEDS: METOCLOPRAMIDE HCL 10 MG TABLET PO SCH ×3 (08:47→18:07)
[2021-09-08] MEDS: PHENOBARBITAL 30 MG TABLET PO SCH ×2 (08:47→16:48)
[2021-09-08] MEDS: SEVELAMER CARBONATE 800 MG TABLET PO SCH ×3 (08:47→18:07)
[2021-09-08] MEDS: ISOSORBIDE DINITRATE (20MG) 20 MG TABLET PO SCH ×3 (08:47→16:47)
[2021-09-08] MEDS: LABETALOL HCL (100MG) 100 MG TABLET PO SCH ×2 (08:48→21:40)
[2021-09-08] MEDS: DAKINS QUARTER STRENGTH (0.125%) 480 ML BOTTLE TOP SCH (08:48)
[2021-09-08] MEDS: PROSOURCE / PROSTAT (PYXIS) 30 ML UDC GT SCH ×2 (09:28→17:00)
[2021-09-08] MEDS: DORZOLAMIDE OPTH 2% 10 ML BOTTLE OP SCH ×2 (09:28→17:00)
--- NOTE | 2021-09-08 10:52 | NUR ---
Darek/ [facility]: VOLODYMYR received call from Karo Oswald Rony [phone] regarding neglect report filed by this SW due to wounds present at admission. Pt. comes from [facility] [phone]. Karo requested VOLODYMYR fax SOC [address] [facility] [phone]. VOLODYMYR [facility] SOC [facility] [phone] [facility] FAX [phone]. SW will remain available as needed.
[2021-09-08 12:00] VITALS: BP 104/52
[2021-09-08 12:55] LABS: EOSINOPHILS % (MANUAL) 5 % (0-4); LYMPHOCYTES % (MANUAL) 9 % (16-48); METAMYELOCYTES % 1 % (0-0); MONOCYTES % (MANUAL) 7 % (0-11.0); MYELOCYTES % 2 % (0-0); NEUTROPHILS % (MANUAL) 76 (42-76)
[2021-09-08] MEDS: EPOETIN ALFA-EPBX 4,000 UNIT/ML VIAL IV SCH (15:13)
[2021-09-08 16:00] VITALS: BP 116/48
[2021-09-08] MEDS: AMPICILLIN /SULBACTAM 3 G in IV NS 0.9% 50 ML IJ SCH (17:14)
[2021-09-08] MEDS: AMLODIPINE BESYLATE 10 MG TABLET PO SCH (18:07)
--- NOTE | 2021-09-08 19:45 | NUR ---
NUT BLANKER OPERATOR OPENING NOTES RECEIVED PATIENT SLEEP IN BED COMFORTABLY, AROUSABLE TO VERBAL AND TACTILE STIMULI, BED IN LOW POSITION, CALL LIGHTS WITHIN REACH, NO COMPLAIN OF PAIN AND DISCOMFORT AT THIS TIME, PATIENT ON FLEXISEAL WITH 50CC RETENTION, ON PROCTOR CATHETER WITH 100ML OUTPUT, PATIENT KEPT CLEAN AND DRY, ALL NEDDS MET WILL CONTINUE TO MONITOR.
[2021-09-08 20:00] VITALS: BP 123/49
[2021-09-08] MEDS: ACETAMINOPHEN 325 MG TABLET PO PRN (21:18)
--- NOTE | 2021-09-08 21:38 | NUR ---
RN NOTES: ACETAMINOPHEN 650 MG GIVEN GTUBE FOR TEMP-100.4 WILL CONTINUE TO MONITOR
[2021-09-08] MEDS: NEPRO 1,000 ML BOTTLE GT PRN (22:20)
[2021-09-08] MEDS: LATANOPROST EYE DROP 0.005% 2.5 ML BOTTLE OP SCH (22:43)
[2021-09-09] VITALS: BP 114/58
[2021-09-09] MEDS: BLOOD SUGAR DIAGNOSTIC 1 EACH STRIP IN SCH ×4 (00:12→17:36)
[2021-09-09] MEDS: IPRATROPIUM NEB FS 0.5 MG/2.5 ML AMPUL.NEB IH SCH ×4 (01:18→19:59)
[2021-09-09 04:24] VITALS: BP 140/65
[2021-09-09] MEDS: PHENYTOIN SODIUM IV 100 MG/2ML VIAL IV SCH ×3 (05:06→22:04)
[2021-09-09 05:51] VITALS: BP 140/59
--- NOTE | 2021-09-09 06:58 | NUR ---
RN CLOSING NOTES: PATIENT SLEEP IN BED COMFORTABLY, AROUSABLE TO STIMULI BED IN LOW POSITION CALL LIGHTS WITHIN REACH NO COMPLAIN OF PAIN OR ANY FACIAL GRIMACING WAS OBSERVED,HOB AT 45 DEGREE ON GTUBE FEEDING AT 40 ML PER HOUR INFUSING WELL, ON PROCTOR CATH, ON FLEXISEAL, , STOOL SPECIMEN TAKEN FORWARDED TO LAB. PATIENT ON SCHEDULE HEMODIALYSIS TODAY, PATIENT KEPT CLEAN AND DRY, ALL NEEDS MET ENDORSE TO INCOMING SHIFT.
[2021-09-09 08:00] VITALS: BP 134/50
[2021-09-09] MEDS: METOCLOPRAMIDE HCL 10 MG TABLET PO SCH ×3 (08:09→17:10)
[2021-09-09] MEDS: DAKINS QUARTER STRENGTH (0.125%) 480 ML BOTTLE TOP SCH (08:10)
[2021-09-09] MEDS: LABETALOL HCL (100MG) 100 MG TABLET PO SCH (08:10)
[2021-09-09] MEDS: DORZOLAMIDE OPTH 2% 10 ML BOTTLE OP SCH ×2 (08:10→16:45)
[2021-09-09] MEDS: PANTOPRAZOLE 40 MG TABLET.DR PO SCH (08:11)
[2021-09-09] MEDS: CARVEDILOL 12.5 MG TABLET PO SCH ×2 (08:11→21:00)
[2021-09-09] MEDS: PHENOBARBITAL 30 MG TABLET PO SCH ×2 (08:11→16:44)
[2021-09-09] MEDS: ISOSORBIDE DINITRATE (20MG) 20 MG TABLET PO SCH ×3 (08:12→16:46)
[2021-09-09] MEDS: PROSOURCE / PROSTAT (PYXIS) 30 ML UDC GT SCH ×2 (08:12→16:46)
[2021-09-09] MEDS: CHLORHEXIDINE GLUCONATE 15 ML UDC MM SCH ×2 (08:12→16:44)
[2021-09-09] MEDS: SEVELAMER CARBONATE 800 MG TABLET PO SCH ×3 (08:12→17:10)
[2021-09-09 08:52] LABS: BASOPHILS # (AUTO) 0.1 K/uL (0.0-0.2); BASOPHILS % (AUTO) 0.6 % (0.0-2.0); EOSINOPHILS % (AUTO) 2.5 % (0.0-6.0); HEMATOCRIT 24 % (33-45); HEMOGLOBIN 7.8 g/dL (11.5-14.8); LYMPHOCYTES # (AUTO) 1.7 K/uL (0.8-4.8); LYMPHOCYTES % (AUTO) 8.6 % (20.0-44.0); MEAN CORPUSCULAR HGB CONC 33 g/dl (31.0-36.0); MEAN CORPUSCULAR VOLUME 92 fL (82-100); MONOCYTES # (AUTO) 1.9 K/uL (0.1-1.30); MONOCYTES % (AUTO) 9.4 % (2.0-12.0); NEUTROPHILS # (AUTO) 15.8 K/uL (1.8-8.9); NEUTROPHILS % (AUTO) 78.9 % (43.0-81.0); PLATELET COUNT (AUTO) 507 K/uL (150-450); RED BLOOD CELL COUNT(AUTO) 2.58 MIL/uL (4.0-5.2)
[2021-09-09 09:15] LABS: ALANINE AMINOTRANSFERASE 70 U/L (12-78); ALBUMIN 2.1 g/dL (3.4-5.0); ALKALINE PHOSPHATASE 365 U/L (46-116); ASPARTATE AMINOTRANSFERASE 71 U/L (15-37); BILIRUBIN,TOTAL 0.6 mg/dL (0.2-1.0); CALCIUM, SERUM 10.3 mg/dL (8.5-10.1); CARBON DIOXIDE 26 mmol/L (21-32); CHLORIDE 91 mmol/L (98-107); CREATININE 2.4 mg/dL (0.6-1.3); GLUCOSE 131 mg/dL (74-106); POTASSIUM 4.3 mmol/L (3.5-5.1); SODIUM SERUM 130 mmol/L (136-145); TOTAL PROTEIN, SERUM 8.3 g/dL (6.4-8.2)
[2021-09-09 09:19] LABS: UREA NITROGEN, BLOOD 86 mg/dL (7-18)
--- NOTE | 2021-09-09 09:45 | NUR ---
RN NOTES SPOKE W/ PATIENT'S DTR GARY AND UPDATED W/ PATIENT'S PROGRESS/CONDITION.
--- NOTE | 2021-09-09 10:03 | NUR ---
RN NOTES DIALYSIS NURSE AT BEDSIDE TO DO HD FOR PATIENT.
[2021-09-09 10:31] LABS: BAND % (MANUAL) 1 % (0.0-5.0); EOSINOPHILS % (MANUAL) 1 % (0-4); LYMPHOCYTES % (MANUAL) 9 % (16-48); METAMYELOCYTES % 2 % (0-0); MONOCYTES % (MANUAL) 10 % (0-11.0); NEUTROPHILS % (MANUAL) 77 (42-76)
[2021-09-09] MEDS: INSULIN REGULAR, HUMAN 100 UNIT/ML 3 ML VIAL SQ PRN ×2 (11:10→17:37)
--- NOTE | 2021-09-09 13:58 | NUR ---
RN NOTES RECEIVED CALL FROM [facility], PATIENT POSITIVE FOR C. DIFF. DR. CARLOS MADE AWARE; PER MD, ID RECS ARE OKAY AT THE MOMENT. CHARGE NURSE AWARE. PATIENT CURRENTLY ON CONTACT PRECAUTIONS; STRICT HANDWASHING OBSERVED OF STAFF ASSIGNED.
--- NOTE | 2021-09-09 15:26 | NUR ---
RN NOTES FOLLOWED-UP IV ATB W/ PHARMACY.
[2021-09-09] MEDS: NS 0.9% IV SCH (15:32)
[2021-09-09] MEDS: DAPTOMYCIN IV SCH (15:32)
[2021-09-09 15:51] VITALS: BP 131/50
[2021-09-09] MEDS: CEFTAZIDIME/AVIBACTAM 0.94 GM in IV NS 0.9% 100 ML IV SCH ×2 (16:05→16:51)
[2021-09-09] MEDS: AMPICILLIN /SULBACTAM 3 G in IV NS 0.9% 50 ML IJ SCH (16:15)
[2021-09-09] MEDS: TOBRAMYCIN 80 MG in IV D5W 50 ML IV PRN (16:58)
--- NOTE | 2021-09-09 17:35 | NUR ---
TROLLEY COLLECTOR OPENING NOTE PATIENT RECEIVED AWAKE IN HER BED; PLEASANT DEMEANOR. TELE SR 80. NO S/S OF DISTRESS, BREATHING SYMMETRICAL, NO PAIN REPORTED. SAFETY MEASURES IN PLACE: BED AT LOWEST POSITION, RAILS UP X2; CALL BETANCUR WITHIN REACH. WILL CONTINUE TO MONITOR PATIENT THROUGHOUT SHIFT.
[2021-09-09] MEDS: VANCOMYCIN HCL 125 MG/2.5 ML ORAL.SUSP GT SCH (19:20)
--- NOTE | 2021-09-09 19:20 | NUR ---
RN NOTES BEDSIDE ENDORSEMENT AND REPORT GIVEN TO ELEN VASCULAR TECH RN. PATIENT IN BED RESTING, NOT IN ACUTE DISTRESS, OBTUNDED, OPENS EYES. S/P HD TODAY, 1L OUTPUT. DUE MEDS GIVEN TODAY. REPOSITIONED IN BED FOR COMFORT AND OFFLOADING. SAFETY MEASURES MAINTAINED. DTR AT BEDSIDE AT THIS TIME.
[2021-09-09 20:00] VITALS: BP 116/67
[2021-09-09] MEDS: ACETAMINOPHEN 325 MG TABLET PO PRN (22:04)
--- NOTE | 2021-09-09 22:26 | NUR ---
telecommunications facility examiner note patient's current bp is 116/67 with a pulse of 81. patient is unable to respond. patient's daughter was adamant about withholding her mother's bp meds as her mother has a phx of bp significantly dropping after administration of bp meds. this was discussed with charge nurse, maddison. bp med withheld.
--- NOTE | 2021-09-09 22:30 | NUR ---
MIDDLEWARE DEVELOPER NOTE PATIENT HAD A TEMP OF 100.1F @1999. MEASURES WERE TAKEN SUCH REMOVAL OF BLANKETS, ICE PACKS UNDER EACH ARM, AND TYLENOL PRN PER eMAR WAS ADMINISTERED. CURRENT TEMP IS 98.0F. WILL CONTINUE TO MONITOR PATIENT FOR ANY S/S OF HYPERTHERMIA OR INFECTION.
[2021-09-09] MEDS: LATANOPROST EYE DROP 0.005% 2.5 ML BOTTLE OP SCH (23:18)
[2021-09-10] VITALS: BP 105/48
[2021-09-10] MEDS: VANCOMYCIN HCL 125 MG/2.5 ML ORAL.SUSP GT SCH ×5 (00:18→23:48)
[2021-09-10] MEDS: BLOOD SUGAR DIAGNOSTIC 1 EACH STRIP IN SCH ×5 (00:31→23:48)
[2021-09-10] MEDS: INSULIN REGULAR, HUMAN 100 UNIT/ML 3 ML VIAL SQ PRN ×2 (00:32→06:33)
[2021-09-10] MEDS: IPRATROPIUM NEB FS 0.5 MG/2.5 ML AMPUL.NEB IH SCH ×4 (01:18→19:31)
[2021-09-10 04:00] VITALS: BP 126/52
[2021-09-10] MEDS: PHENYTOIN SODIUM IV 100 MG/2ML VIAL IV SCH ×3 (05:00→21:17)
--- NOTE | 2021-09-10 05:00 | NUR ---
CLINICAL STAFF EDUCATOR NOTES DILANTIN GIVEN ORDERED. @ 0500. RECORDED IN PAPER DEC. COMPUTER DOWNTIME MAINTENANCE ONGOING FROM [phone]
--- NOTE | 2021-09-10 07:02 | NUR ---
BENCH JEWELER CLOSING NOTE PATIENT ASLEEP IN BED. NO COMPLAINTS OF PAIN. NO S/S OF DISTRESS; BREATHING SYMMETRICAL. TELE SR 74. SAFETY MEASURES FOLLOWED: BED AT LOWEST POSITION, RAILS UP X2; CALL BETANCUR WITHIN REACH. WILL ENDORSE TO FOLLOWING SHIFT.
--- NOTE | 2021-09-10 07:37 | NUR ---
DIRECT OF REAL ESTATE OPENING NOTE RECEIVED PT ASLEEP IN BED, ABLE TO OPEN EYES. PT WITH TRACH VENT. NO S/SX OF DISTRESS, NO SOB. IV ACCESS NASEEM MIDLINE PATENT AND INTACT. PT WITH FLEXISEAL, PATENT AND INTACT. G-TUBE PATENT WITH NEPRHO 1.8 @40MLS/HR. SAFETY MEASURES IN PLACE WITH BED LOCKED AT LOW POSITION, SIDE RAILSUP X 2. WILL CONTINUE TO MONITOR PATIENT THROUGHOUT SHIFT.
[2021-09-10 08:00] VITALS: BP 110/48
[2021-09-10] MEDS: CHLORHEXIDINE GLUCONATE 15 ML UDC MM SCH ×2 (08:19→16:19)
[2021-09-10] MEDS: PHENOBARBITAL 30 MG TABLET PO SCH ×2 (08:19→16:19)
[2021-09-10] MEDS: PANTOPRAZOLE 40 MG TABLET.DR PO SCH (08:19)
[2021-09-10] MEDS: METOCLOPRAMIDE HCL 10 MG TABLET PO SCH ×3 (08:19→17:08)
[2021-09-10] MEDS: SEVELAMER CARBONATE 800 MG TABLET PO SCH ×3 (08:19→17:08)
[2021-09-10] MEDS: CARVEDILOL 12.5 MG TABLET PO SCH ×2 (08:20→20:11)
[2021-09-10] MEDS: PROSOURCE / PROSTAT (PYXIS) 30 ML UDC GT SCH ×2 (08:21→16:19)
[2021-09-10] MEDS: DAKINS QUARTER STRENGTH (0.125%) 480 ML BOTTLE TOP SCH (08:22)
[2021-09-10] MEDS: DORZOLAMIDE OPTH 2% 10 ML BOTTLE OP SCH ×2 (08:22→16:22)
[2021-09-10 09:13] LABS: BASOPHILS # (AUTO) 0.1 K/uL (0.0-0.2); BASOPHILS % (AUTO) 0.3 % (0.0-2.0); EOSINOPHILS % (AUTO) 2.2 % (0.0-6.0); HEMATOCRIT 24 % (33-45); HEMOGLOBIN 7.7 g/dL (11.5-14.8); LYMPHOCYTES # (AUTO) 1.6 K/uL (0.8-4.8); LYMPHOCYTES % (AUTO) 7.8 % (20.0-44.0); MEAN CORPUSCULAR HGB CONC 32 g/dl (31.0-36.0); MEAN CORPUSCULAR VOLUME 94 fL (82-100); MONOCYTES # (AUTO) 1.8 K/uL (0.1-1.30); MONOCYTES % (AUTO) 8.9 % (2.0-12.0); NEUTROPHILS # (AUTO) 16.6 K/uL (1.8-8.9); NEUTROPHILS % (AUTO) 80.8 % (43.0-81.0); PLATELET COUNT (AUTO) 498 K/uL (150-450); RED BLOOD CELL COUNT(AUTO) 2.53 MIL/uL (4.0-5.2); WHITE BLOOD COUNT (AUTO) 20.5 K/uL (4.3-11.0)
[2021-09-10 09:23] LABS: CALCIUM, SERUM 9.8 mg/dL (8.5-10.1); CARBON DIOXIDE 25 mmol/L (21-32); CHLORIDE 96 mmol/L (98-107); CREATININE 1.7 mg/dL (0.6-1.3); GLUCOSE 150 mg/dL (74-106); POTASSIUM 3.6 mmol/L (3.5-5.1); SODIUM SERUM 133 mmol/L (136-145); UREA NITROGEN, BLOOD 47 mg/dL (7-18)
[2021-09-10 09:29] LABS: ALANINE AMINOTRANSFERASE 56 U/L (12-78); ALKALINE PHOSPHATASE 354 U/L (46-116); ASPARTATE AMINOTRANSFERASE 55 U/L (15-37); BILIRUBIN,TOTAL 0.5 mg/dL (0.2-1.0); TOTAL PROTEIN, SERUM 8.2 g/dL (6.4-8.2)
[2021-09-10 11:12] LABS: BAND % (MANUAL) 1 % (0.0-5.0); EOSINOPHILS % (MANUAL) 6 % (0-4); LYMPHOCYTES % (MANUAL) 6 % (16-48); MONOCYTES % (MANUAL) 5 % (0-11.0); NEUTROPHILS % (MANUAL) 82 (42-76)
[2021-09-10 12:00] VITALS: BP 130/58
[2021-09-10] MEDS: EPOETIN ALFA-EPBX 4,000 UNIT/ML VIAL IV SCH (14:49)
[2021-09-10] MEDS: AMPICILLIN /SULBACTAM 3 G in IV NS 0.9% 50 ML IJ SCH (15:23)
[2021-09-10 15:59] VITALS: BP 139/62
[2021-09-10] MEDS: ARGININE/GLUTAMINE/CALCIUM BMB 1 EACH POWD.PACK GT SCH (17:00)
--- NOTE | 2021-09-10 18:08 | NUR ---
MARINE MECHANIC NOTES CALLED NUTRITION TO BRING UP NETTA POWDER PACKET @ 1700; STILL NOT AVAILABLE IN UNIT AT THIS TIME.
--- NOTE | 2021-09-10 18:34 | NUR ---
TRANSITIONAL CARE LIAISON CLOSING NOTES PT RESTING COMFORTABLY AT THIS TIME WITH DAUGHTERMAYELIN AT BEDSIDE. NO S/SX OF DISTRESS NOTED. PT KEPT COMFORTABLE AND DRY. ALL MEDS GIVEN ORDERED. ALL NEEDS MET, WOUND TREATMENTS DONE. SAFETY MEASURES MAINTAINED. PT TEMP 99.4 WILL ADMINISTER TYLENOL 650MG AND RECHECK TEMPERATURE AFTER 30 MINS.
[2021-09-10] MEDS: ACETAMINOPHEN 325 MG TABLET PO PRN (18:38)
[2021-09-10 20:00] VITALS: BP 123/49
[2021-09-10] MEDS: LATANOPROST EYE DROP 0.005% 2.5 ML BOTTLE OP SCH (21:29)
--- NOTE | 2021-09-10 23:03 | NUR ---
HELD 2100 Coreg per family request/refusal. B/P 123/49, HR 74.
[2021-09-11] VITALS: BP 139/54
[2021-09-11] MEDS: IPRATROPIUM NEB FS 0.5 MG/2.5 ML AMPUL.NEB IH SCH ×4 (02:06→19:48)
[2021-09-11 04:00] VITALS: BP 143/55
[2021-09-11] MEDS: PHENYTOIN SODIUM IV 100 MG/2ML VIAL IV SCH ×3 (04:59→21:49)
[2021-09-11] MEDS: ACETAMINOPHEN 325 MG TABLET PO PRN ×2 (04:59→20:17)
[2021-09-11] MEDS: NEPRO 1,000 ML BOTTLE GT PRN (05:42)
[2021-09-11] MEDS: VANCOMYCIN HCL 125 MG/2.5 ML ORAL.SUSP GT SCH ×3 (05:42→17:32)
[2021-09-11] MEDS: BLOOD SUGAR DIAGNOSTIC 1 EACH STRIP IN SCH ×3 (06:58→17:11)
--- NOTE | 2021-09-11 07:25 | NUR ---
Patient has been at baseline overnight. Highest temp 99.5. Still having liquid BMs. Very minimal urine output 15cc. Repositioned q2h. Kept clean and dry. No s/s of distress. O2 sats staying 99-100%.
--- NOTE | 2021-09-11 07:28 | NUR ---
RN CASE MANAGER HOSPICE OPENING NOTES RECEIVED PT IN BED, EYES CLOSED, OBTUNDED, NONVERBAL. PT ON TRACH/VENT AND TOLERATING WELL. BREATHING EVENLY AND NONLABORED IV SITE: XIOMARA MIDLINE INTACT/PATENT/FLUSHES WELL. PERMA-CATH ON R-CHEST WALL INTACT WITH DRESSING C/D/I. ON GTF NEPRO @40ML/HR. WITH F/C AND FLEXI-SEAL IN PLACE AND FUNCTIONING WELL. ON TELE MONITOR READING SR, HR 73. SAFETY MEASURES IN PLACE, BED IN LOWEST LOCKED POSITION, S/R UPX2, CALL LIGHT WITHIN REACH. WILL CONT TO MONITOR.
[2021-09-11 07:38] LABS: BASOPHILS # (AUTO) 0.1 K/uL (0.0-0.2); BASOPHILS % (AUTO) 0.7 % (0.0-2.0); EOSINOPHILS % (AUTO) 3.3 % (0.0-6.0); HEMATOCRIT 22 % (33-45); HEMOGLOBIN 7.2 g/dL (11.5-14.8); LYMPHOCYTES # (AUTO) 1.9 K/uL (0.8-4.8); LYMPHOCYTES % (AUTO) 9.5 % (20.0-44.0); MEAN CORPUSCULAR HGB CONC 34 g/dl (31.0-36.0); MEAN CORPUSCULAR VOLUME 92 fL (82-100); MONOCYTES # (AUTO) 1.6 K/uL (0.1-1.30); MONOCYTES % (AUTO) 8.2 % (2.0-12.0); NEUTROPHILS # (AUTO) 15.5 K/uL (1.8-8.9); NEUTROPHILS % (AUTO) 78.3 % (43.0-81.0); PLATELET COUNT (AUTO) 509 K/uL (150-450); RED BLOOD CELL COUNT(AUTO) 2.32 MIL/uL (4.0-5.2); WHITE BLOOD COUNT (AUTO) 19.8 K/uL (4.3-11.0)
[2021-09-11 07:44] LABS: CALCIUM, SERUM 9.9 mg/dL (8.5-10.1); CARBON DIOXIDE 26 mmol/L (21-32); CHLORIDE 95 mmol/L (98-107); CREATININE 2.2 mg/dL (0.6-1.3); GLUCOSE 119 mg/dL (74-106); POTASSIUM 3.8 mmol/L (3.5-5.1); SODIUM SERUM 133 mmol/L (136-145); UREA NITROGEN, BLOOD 66 mg/dL (7-18)
[2021-09-11 07:50] LABS: ALANINE AMINOTRANSFERASE 49 U/L (12-78); ALKALINE PHOSPHATASE 340 U/L (46-116); ASPARTATE AMINOTRANSFERASE 58 U/L (15-37); BILIRUBIN,TOTAL 0.5 mg/dL (0.2-1.0); TOTAL PROTEIN, SERUM 8.2 g/dL (6.4-8.2)
[2021-09-11 08:00] VITALS: BP 160/65
[2021-09-11] MEDS: PROSOURCE / PROSTAT (PYXIS) 30 ML UDC GT SCH ×2 (08:43→17:11)
[2021-09-11] MEDS: ZINC SULFATE 220 MG CAPSULE GT SCH (08:44)
[2021-09-11] MEDS: ASCORBIC ACID 500 MG TABLET GT SCH (08:44)
[2021-09-11] MEDS: CARVEDILOL 12.5 MG TABLET PO SCH ×2 (08:44→20:17)
[2021-09-11] MEDS: CHLORHEXIDINE GLUCONATE 15 ML UDC MM SCH ×2 (08:44→17:11)
[2021-09-11] MEDS: SEVELAMER CARBONATE 800 MG TABLET PO SCH ×3 (08:44→17:11)
[2021-09-11] MEDS: PANTOPRAZOLE 40 MG TABLET.DR PO SCH (08:44)
[2021-09-11] MEDS: METOCLOPRAMIDE HCL 10 MG TABLET PO SCH ×3 (08:44→17:11)
[2021-09-11] MEDS: PHENOBARBITAL 30 MG TABLET PO SCH ×2 (08:44→17:11)
[2021-09-11] MEDS: ARGININE/GLUTAMINE/CALCIUM BMB 1 EACH POWD.PACK GT SCH ×2 (08:45→17:00)
[2021-09-11] MEDS: DAKINS QUARTER STRENGTH (0.125%) 480 ML BOTTLE TOP SCH (08:49)
[2021-09-11] MEDS: DORZOLAMIDE OPTH 2% 10 ML BOTTLE OP SCH ×2 (08:49→17:00)
[2021-09-11 12:00] VITALS: BP 105/45
[2021-09-11] MEDS: INSULIN REGULAR, HUMAN 100 UNIT/ML 3 ML VIAL SQ PRN ×2 (12:17→17:14)
--- NOTE | 2021-09-11 13:22 | NUR ---
RN NOTES PATIENT IS POST DIALYSIS BP 122/50. PATIENT TOLERATED WILL. WILL CONTINUE TO MONITOR
[2021-09-11] MEDS: DAPTOMYCIN IV SCH (14:23)
[2021-09-11] MEDS: NS 0.9% IV SCH (14:23)
[2021-09-11] MEDS ORDERED: EPOETIN ALFA (10,000 UNIT) 10,000 UNIT/ML VIAL IV ONE (15:00)
[2021-09-11] MEDS: AMPICILLIN /SULBACTAM 3 G in IV NS 0.9% 50 ML IJ SCH (15:11)
[2021-09-11] MEDS: CEFTAZIDIME/AVIBACTAM 0.94 GM in IV NS 0.9% 100 ML IV SCH (15:48)
[2021-09-11 16:00] VITALS: BP 139/53
--- NOTE | 2021-09-11 18:26 | NUR ---
HOSE SUSPENDER CUTTER CLOSING NOTES PT IN BED, EYES CLOSED, OBTUNDED, NONVERBAL. PT ON TRACH/VENT AND TOLERATING WELL. BREATHING EVENLY AND NONLABORED IV SITE: XIOMARA MIDLINE INTACT/PATENT/FLUSHES WELL. PERMA-CATH ON R-CHEST WALL INTACT WITH DRESSING C/D/I. ON GTF NEPRO @40ML/HR. WITH F/C AND FLEXI-SEAL IN PLACE AND FUNCTIONING WELL. ON TELE MONITOR READING SR, HR 73. WOUND CARE PERFORMED DURING SHIFT. ALL MEDICATIONS GIVEN ORDERED. SAFETY MEASURES IN PLACE, BED IN LOWEST LOCKED POSITION, S/R UPX2, CALL LIGHT WITHIN REACH. WILL ENDORSE TO ONCOMING SHIFT.
--- NOTE | 2021-09-11 19:20 | NUR ---
CONTINUITY OF CARE Patient in bed, eyes closed, non verbal. On Mechanical vent, no s/s of respiratory distress. NASEEM midline patent and intact. Gtube feeding infusing. Herring cath in place, rectal tube with stool. Skin warm and. Daughter at bedside, participating with care.
[2021-09-11 20:00] VITALS: BP 144/62
[2021-09-11] MEDS: TOBRAMYCIN 80 MG in IV D5W 50 ML IV PRN (20:12)
--- NOTE | 2021-09-11 20:30 | NUR ---
TEMP 100.3 Cooling measure, Tylenol given. Will reassess intervention.
[2021-09-11] MEDS: LATANOPROST EYE DROP 0.005% 2.5 ML BOTTLE OP SCH (21:46)
[2021-09-12] VITALS (7 sets, daily range): BP systolic 101–134; BP diastolic 40–57
[2021-09-12] MEDS: VANCOMYCIN HCL 125 MG/2.5 ML ORAL.SUSP GT SCH ×5 (00:20→23:58)
[2021-09-12] MEDS: BLOOD SUGAR DIAGNOSTIC 1 EACH STRIP IN SCH ×5 (00:23→23:53)
[2021-09-12] MEDS: INSULIN REGULAR, HUMAN 100 UNIT/ML 3 ML VIAL SQ PRN ×2 (00:26→05:48)
--- NOTE | 2021-09-12 00:27 | NUR ---
ACCU CHECK BS 136mg/dl Given insulin regular 2units per sliding scale, co-signed by NIMA Guo.
[2021-09-12] MEDS: IPRATROPIUM NEB FS 0.5 MG/2.5 ML AMPUL.NEB IH SCH ×4 (01:48→20:26)
[2021-09-12] MEDS: PHENYTOIN SODIUM IV 100 MG/2ML VIAL IV SCH ×3 (05:36→20:23)
--- NOTE | 2021-09-12 05:49 | NUR ---
ACCU CHECK BS 145mg/dl Given insulin regular 2units per sliding scale, co-signed by NIMA Burger.
--- NOTE | 2021-09-12 06:18 | NUR ---
END OF SHIFT REPORT Patient is non verbal, opens eye. Trach intact, on Mechanical vent. Sinus rhythm in the Tele monitor HR 82. NASEEM midline intact. On IV/PO abx. Temp improved after cooling measure and Tylenol. Tolerating tube feeding at goal rater. Wound care done, turned and repositioned. Will endorse to oncoming RN.
--- NOTE | 2021-09-12 07:30 | NUR ---
PROPELLER LAYOUT WORKER OPENING NOTES RECEIVED PT IN BED, EYES CLOSED, OBTUNDED, NONVERBAL. PT ON TRACH/VENT AND TOLERATING WELL. BREATHING EVENLY AND NONLABORED WITH IV ACCESS AT XIOMARA MIDLINE INTACT/PATENT/FLUSHES WELL. PERMA-CATH ON R-CHEST WALL INTACT WITH DRESSING C/D/I. ON GT FEEDING NEPRO @40ML/HR. WITH F/C AND FLEXI-SEAL IN PLACE AND FUNCTIONING WELL. ON TELE MONITOR READING SR, HR 77BPM. SAFETY MEASURES IN PLACE, BED IN LOWEST LOCKED POSITION, S/R UPX2, CALL LIGHT WITHIN REACH. WILL CONTINUE TO MONITOR.
[2021-09-12] MEDS: ZINC SULFATE 220 MG CAPSULE GT SCH (08:05)
[2021-09-12] MEDS: SEVELAMER CARBONATE 800 MG TABLET PO SCH ×3 (08:05→17:10)
[2021-09-12] MEDS: PROSOURCE / PROSTAT (PYXIS) 30 ML UDC GT SCH ×2 (08:05→17:10)
[2021-09-12] MEDS: ARGININE/GLUTAMINE/CALCIUM BMB 1 EACH POWD.PACK GT SCH ×2 (08:05→17:10)
[2021-09-12] MEDS: PHENOBARBITAL 30 MG TABLET PO SCH ×2 (08:06→17:10)
[2021-09-12] MEDS: ASCORBIC ACID 500 MG TABLET GT SCH (08:06)
[2021-09-12] MEDS: METOCLOPRAMIDE HCL 10 MG TABLET PO SCH ×3 (08:06→17:10)
[2021-09-12] MEDS: PANTOPRAZOLE 40 MG TABLET.DR PO SCH (08:06)
[2021-09-12] MEDS: CHLORHEXIDINE GLUCONATE 15 ML UDC MM SCH ×2 (08:06→17:10)
[2021-09-12] MEDS: DORZOLAMIDE OPTH 2% 10 ML BOTTLE OP SCH ×2 (08:07→17:54)
[2021-09-12] MEDS: DAKINS QUARTER STRENGTH (0.125%) 480 ML BOTTLE TOP SCH (08:07)
[2021-09-12] MEDS: CARVEDILOL 12.5 MG TABLET PO SCH ×3 (09:00→20:49)
--- NOTE | 2021-09-12 09:30 | NUR ---
DIRECT CARE STAFFER OPENING NOTES RECEIVED PT IN BED, EYES CLOSED, OBTUNDED, NONVERBAL. PT ON TRACH/VENT AND TOLERATING WELL. BREATHING EVENLY AND NONLABORED WITH IV ACCESS AT XIOMARA MIDLINE INTACT AND PATENT. PERMA-CATH ON R-CHEST WALL INTACT WITH DRESSING C/D/I. GT FEEDING NEPRO @40ML/HR. WITH F/C AND FLEXI-SEAL IN PLACE. EXTERNAL ACADEMIC RECORDS SPECIALIST READING SR, HR 88 BPM. SAFETY PRECAUTIONS IN PLACE. BED IN LOWEST LOCKED POSITION, SIDE RAILS UP X2, CALL LIGHT AND TABLE WITHIN REACH. WILL CONTINUE TO MONITOR. Addendum: 09/12/21 at 1947 by MARILY PAPPAS RN TIME 1929 NOT 30
[2021-09-12] MEDS: NEPRO 1,000 ML BOTTLE GT PRN (10:43)
[2021-09-12] MEDS: EPOETIN ALFA-EPBX 4,000 UNIT/ML VIAL IV SCH (15:33)
[2021-09-12] MEDS: AMPICILLIN /SULBACTAM 3 G in IV NS 0.9% 50 ML IJ SCH (15:35)
[2021-09-12 15:39] LABS: BASOPHILS # (AUTO) 0.1 K/uL (0.0-0.2); BASOPHILS % (AUTO) 0.3 % (0.0-2.0); EOSINOPHILS % (AUTO) 2.4 % (0.0-6.0); HEMATOCRIT 25 % (33-45); HEMOGLOBIN 7.9 g/dL (11.5-14.8); LYMPHOCYTES # (AUTO) 2.4 K/uL (0.8-4.8); MEAN CORPUSCULAR HGB CONC 32 g/dl (31.0-36.0); MEAN CORPUSCULAR VOLUME 95 fL (82-100); MONOCYTES # (AUTO) 1.8 K/uL (0.1-1.30); MONOCYTES % (AUTO) 8.3 % (2.0-12.0); NEUTROPHILS # (AUTO) 16.7 K/uL (1.8-8.9); PLATELET COUNT (AUTO) 579 K/uL (150-450); RED BLOOD CELL COUNT(AUTO) 2.61 MIL/uL (4.0-5.2); WHITE BLOOD COUNT (AUTO) 21.4 K/uL (4.3-11.0)
[2021-09-12 15:55] LABS: ALANINE AMINOTRANSFERASE 82 U/L (12-78); ALBUMIN 2.1 g/dL (3.4-5.0); ALKALINE PHOSPHATASE 401 U/L (46-116); ASPARTATE AMINOTRANSFERASE 95 U/L (15-37); BILIRUBIN,TOTAL 0.4 mg/dL (0.2-1.0); CALCIUM, SERUM 10.1 mg/dL (8.5-10.1); CARBON DIOXIDE 28 mmol/L (21-32); CHLORIDE 97 mmol/L (98-107); CREATININE 1.9 mg/dL (0.6-1.3); GLUCOSE 135 mg/dL (74-106); POTASSIUM 3.7 mmol/L (3.5-5.1); SODIUM SERUM 136 mmol/L (136-145); TOTAL PROTEIN, SERUM 8.6 g/dL (6.4-8.2); UREA NITROGEN, BLOOD 63 mg/dL (7-18)
[2021-09-12 18:34] LABS: BAND % (MANUAL) 1 % (0.0-5.0); EOSINOPHILS % (MANUAL) 3 % (0-4); LYMPHOCYTES % (MANUAL) 18 % (16-48); MONOCYTES % (MANUAL) 7 % (0-11.0); NEUTROPHILS % (MANUAL) 71 (42-76)
--- NOTE | 2021-09-12 19:35 | NUR ---
VENEER TAPER CLOSING NOTES PT IN BED, EYES CLOSED, OBTUNDED, NONVERBAL. PT ON TRACH/VENT AND TOLERATING WELL. BREATHING EVENLY AND NONLABORED WITH IV ACCESS AT XIOMARA MIDLINE INTACT/PATENT/FLUSHES WELL. PERMA-CATH ON R-CHEST WALL INTACT WITH DRESSING C/D/I. ON GT FEEDING NEPRO @40ML/HR. WITH F/C AND FLEXI-SEAL IN PLACE AND FUNCTIONING WELL. ON TELE MONITOR READING SR, HR 79BPM. DUE MEDS GIVEN. SAFETY MEASURES IN PLACE, BED IN LOWEST LOCKED POSITION, S/R UPX2, CALL LIGHT WITHIN REACH. WILL ENDORSE TO NEXT SHIFT FOR OTIS.
[2021-09-12] MEDS: ACETAMINOPHEN 325 MG TABLET PO PRN (20:25)
--- NOTE | 2021-09-12 20:25 | NUR ---
RN NOTE TEMP 100.1. ADMINISTERED TYLENOL 650 MG VIA G-TUBE PRN FOR FEVER ORDERED. STARTED COOLING MEASURES. WILL CONTINUE TO MONITOR.
--- NOTE | 2021-09-12 20:50 | NUR ---
RN NOTE BLOOD PRESSURE 123/51 AND HR 86 BPM. COREG 25 MG HELD PER DAUGHTER REQUEST. EXPLAINED RISKS AND BENEFITS BUT STILL REFUSED.
[2021-09-12] MEDS: LATANOPROST EYE DROP 0.005% 2.5 ML BOTTLE OP SCH (21:44)
[2021-09-13] VITALS (7 sets, daily range): BP systolic 107–142; BP diastolic 46–62
[2021-09-13] MEDS: IPRATROPIUM NEB FS 0.5 MG/2.5 ML AMPUL.NEB IH SCH ×4 (02:26→20:09)
[2021-09-13] MEDS: PHENYTOIN SODIUM IV 100 MG/2ML VIAL IV SCH ×3 (04:43→20:55)
[2021-09-13] MEDS: VANCOMYCIN HCL 125 MG/2.5 ML ORAL.SUSP GT SCH ×4 (05:47→23:24)
[2021-09-13] MEDS: BLOOD SUGAR DIAGNOSTIC 1 EACH STRIP IN SCH ×4 (05:59→23:23)
--- NOTE | 2021-09-13 07:29 | NUR ---
COLLECTION TECHNICIAN OPENING NOTES RECEIVED Pt IN BED, WITH EYES CLOSED, OBTUNDED, AND NONVERBAL. Pt ON TRACH/VENT AND TOLERATING WELL. BREATHING IS EVEN AND UNLABORED WITH IV ACCESS AT NASEEM MIDLINE, IT IS INTACT AND PATENT. PERMA-CATH ON R-CHEST WALL INTACT. GT FEEDING NEPRO @40ML/HR. PROCTOR CATH AND AND FLEXI-SEAL NOTICED AND ARE IN PLACE. SAFETY MEASURES ARE IN PLACE, BED IS LOCKED AND IN LOWEST POSITION, SIDE RAILS UP X2, CALL LIGHT AND TABLE WITHIN REACH. WILL CONTINUE TO MONITOR THROUGHOUT THE SHIFT.
[2021-09-13] MEDS ORDERED: EPOETIN ALFA (10,000 UNIT) 10,000 UNIT/ML VIAL IV ONE (08:00)
[2021-09-13 08:03] LABS: BASOPHILS # (AUTO) 0.1 K/uL (0.0-0.2); BASOPHILS % (AUTO) 0.5 % (0.0-2.0); EOSINOPHILS % (AUTO) 2.6 % (0.0-6.0); HEMATOCRIT 24 % (33-45); HEMOGLOBIN 7.7 g/dL (11.5-14.8); LYMPHOCYTES # (AUTO) 2.4 K/uL (0.8-4.8); LYMPHOCYTES % (AUTO) 11.8 % (20.0-44.0); MEAN CORPUSCULAR HGB CONC 32 g/dl (31.0-36.0); MEAN CORPUSCULAR VOLUME 95 fL (82-100); MONOCYTES # (AUTO) 1.8 K/uL (0.1-1.30); MONOCYTES % (AUTO) 8.8 % (2.0-12.0); NEUTROPHILS # (AUTO) 15.4 K/uL (1.8-8.9); NEUTROPHILS % (AUTO) 76.3 % (43.0-81.0); PLATELET COUNT (AUTO) 583 K/uL (150-450); RED BLOOD CELL COUNT(AUTO) 2.55 MIL/uL (4.0-5.2); WHITE BLOOD COUNT (AUTO) 20.2 K/uL (4.3-11.0)
[2021-09-13] MEDS: PANTOPRAZOLE 40 MG TABLET.DR PO SCH (08:05)
[2021-09-13 08:22] LABS: CALCIUM, SERUM 10.5 mg/dL (8.5-10.1); CARBON DIOXIDE 25 mmol/L (21-32); CHLORIDE 96 mmol/L (98-107); CREATININE 2.2 mg/dL (0.6-1.3); GLUCOSE 118 mg/dL (74-106); POTASSIUM 4.1 mmol/L (3.5-5.1); SODIUM SERUM 137 mmol/L (136-145)
[2021-09-13 08:23] LABS: UREA NITROGEN, BLOOD 95 mg/dL (7-18)
[2021-09-13 08:27] LABS: ALANINE AMINOTRANSFERASE 62 U/L (12-78); ALKALINE PHOSPHATASE 356 U/L (46-116); ASPARTATE AMINOTRANSFERASE 61 U/L (15-37); BILIRUBIN,TOTAL 0.4 mg/dL (0.2-1.0); TOTAL PROTEIN, SERUM 8.4 g/dL (6.4-8.2)
[2021-09-13] MEDS: CHLORHEXIDINE GLUCONATE 15 ML UDC MM SCH ×2 (08:43→17:31)
[2021-09-13] MEDS: ASCORBIC ACID 500 MG TABLET GT SCH (08:43)
[2021-09-13] MEDS: SEVELAMER CARBONATE 800 MG TABLET PO SCH ×3 (08:43→17:31)
[2021-09-13] MEDS: ZINC SULFATE 220 MG CAPSULE GT SCH (08:44)
[2021-09-13] MEDS: PHENOBARBITAL 30 MG TABLET PO SCH ×2 (08:44→17:31)
[2021-09-13] MEDS: METOCLOPRAMIDE HCL 10 MG TABLET PO SCH ×3 (08:44→17:31)
[2021-09-13] MEDS: PROSOURCE / PROSTAT (PYXIS) 30 ML UDC GT SCH ×2 (08:48→17:33)
[2021-09-13] MEDS: ARGININE/GLUTAMINE/CALCIUM BMB 1 EACH POWD.PACK GT SCH ×2 (08:48→17:33)
[2021-09-13] MEDS: CARVEDILOL 12.5 MG TABLET PO SCH ×2 (08:51→21:00)
[2021-09-13] MEDS: DORZOLAMIDE OPTH 2% 10 ML BOTTLE OP SCH ×2 (09:17→18:01)
[2021-09-13] MEDS: DAKINS QUARTER STRENGTH (0.125%) 480 ML BOTTLE TOP SCH (09:18)
[2021-09-13] MEDS: INSULIN REGULAR, HUMAN 100 UNIT/ML 3 ML VIAL SQ PRN (11:48)
[2021-09-13] MEDS: NS 0.9% IV SCH (14:05)
[2021-09-13] MEDS: DAPTOMYCIN IV SCH (14:05)
[2021-09-13] MEDS: CEFTAZIDIME/AVIBACTAM 0.94 GM in IV NS 0.9% 100 ML IV SCH (15:16)
[2021-09-13] MEDS: AMPICILLIN /SULBACTAM 3 G in IV NS 0.9% 50 ML IJ SCH (17:31)
--- NOTE | 2021-09-13 19:19 | NUR ---
EQUITY DIRECTOR CLOSING NOTES Pt IN BED, EYES CLOSED, OBTUNDED, NONVERBAL. fAMILY IS AT BEDSIDE. Pt IS ON TRACH/VENT AND TOLERATING WELL. BREATHING EVENLY AND NONLABORED WITH IV ACCESS AT XIOMARA MIDLINE. IT IS INTACT/PATENT/FLUSHES WELL. PERMA-CATH ON R-CHEST WALL INTACT WITH DRESSING. ON GT FEEDING NEPRO @40ML/HR. WITH F/C AND FLEXI-SEAL IN PLACE AND FUNCTIONING WELL. ON TELE MONITOR READING SR, HR 80BPM. DUE MEDS GIVEN. SAFETY MEASURES IN PLACE, BED IN LOWEST LOCKED POSITION, S/R UPX2, CALL LIGHT WITHIN REACH. WILL ENDORSE TO NEXT SHIFT.
--- NOTE | 2021-09-13 20:15 | NUR ---
PAYLOADER MACHINE OPERATOR NOTES RECEIVED ON BED,EYES CLOSED,NON VERBAL,ON TRACH TO VENT AC-14,TV-500,FIO2-30%,PEEP-5,PORTEX #7,SETTINGS TOLERATED WELL.WITH GT FEEDING OF NEPRO AT 40ML/HR RATE,ON FLEXI SEAL FOR LOOSE BM,PROCTOR CATH,NO OUTPUT,ANURIC,ON HEMODIALYSIS MWF.ON SPECIALTY MATTRESS FOR WOUND MANAGEMENT,BILATERAL FOOT ON HEEL PROTECTOR.WITH [facility] MIDLINE FOR MEDS,RIGHT CHEST PERMA CATH FOR HD ACCESS.ISOLATION FOR C-DIFF,DAUGHTER AT BEDSIDE.REPOSITION Q 2 HOURS PER PROTOCOL.WILL CONTINUE TO MONITOR STATUS.
--- NOTE | 2021-09-13 20:31 | NUR ---
BUCK SWAMPER NOTES SR-82 ON TELE MONITOR
[2021-09-13] MEDS: ACETAMINOPHEN 325 MG TABLET PO PRN (21:48)
--- NOTE | 2021-09-13 21:48 | NUR ---
VALET RUNNER NOTES BODY TEMPERATURE OF 100.0.TYLENOL 650MG/GT GIVEN ORDERED
[2021-09-13] MEDS: LATANOPROST EYE DROP 0.005% 2.5 ML BOTTLE OP SCH (22:24)
--- NOTE | 2021-09-13 23:34 | NUR ---
NETWORK MGR NOTES ACCU-CHECK BLOOD SUGAR CHECK 113,NO INSULIN COVERAGE
[2021-09-14] VITALS (9 sets, daily range): BP systolic 87–147; BP diastolic 41–68
[2021-09-14] MEDS: IPRATROPIUM NEB FS 0.5 MG/2.5 ML AMPUL.NEB IH SCH ×5 (01:59→20:12)
[2021-09-14] MEDS: PHENYTOIN SODIUM IV 100 MG/2ML VIAL IV SCH ×3 (05:12→23:05)
[2021-09-14] MEDS: BLOOD SUGAR DIAGNOSTIC 1 EACH STRIP IN SCH ×3 (05:26→18:28)
[2021-09-14] MEDS: INSULIN REGULAR, HUMAN 100 UNIT/ML 3 ML VIAL SQ PRN ×3 (05:27→18:49)
--- NOTE | 2021-09-14 05:30 | NUR ---
SUPERINTENDENT STATIONS NOTES ACCU-CHECK BLOOD SUGAR CHECK 133,COVERED WITH HUMULIN R 2 UNITS PER SLIDING SCALE
[2021-09-14] MEDS: VANCOMYCIN HCL 125 MG/2.5 ML ORAL.SUSP GT SCH ×4 (05:38→23:06)
--- NOTE | 2021-09-14 06:35 | NUR ---
HOME HEALTH CARE SOCIAL WORKER NOTES NO SIGNIFICANT CHANGE IN STATUS,AFEBRILE 98.2,BLOOD PRESSURE 137/68,DAUGHTER AWARE OF PATIENT STATUS,THIS MORNING.WILL ENDORSE TO DAY NURSE FOR OTIS
[2021-09-14 07:04] LABS: BASOPHILS # (AUTO) 0.1 K/uL (0.0-0.2); BASOPHILS % (AUTO) 0.6 % (0.0-2.0); HEMATOCRIT 24 % (33-45); HEMOGLOBIN 7.8 g/dL (11.5-14.8); LYMPHOCYTES # (AUTO) 2.4 K/uL (0.8-4.8); LYMPHOCYTES % (AUTO) 11.5 % (20.0-44.0); MEAN CORPUSCULAR HGB CONC 32 g/dl (31.0-36.0); MEAN CORPUSCULAR VOLUME 96 fL (82-100); MONOCYTES # (AUTO) 1.8 K/uL (0.1-1.30); MONOCYTES % (AUTO) 8.3 % (2.0-12.0); NEUTROPHILS # (AUTO) 16.3 K/uL (1.8-8.9); NEUTROPHILS % (AUTO) 76.6 % (43.0-81.0); PLATELET COUNT (AUTO) 538 K/uL (150-450); RED BLOOD CELL COUNT(AUTO) 2.52 MIL/uL (4.0-5.2); WHITE BLOOD COUNT (AUTO) 21.2 K/uL (4.3-11.0)
[2021-09-14 07:15] LABS: CALCIUM, SERUM 10.1 mg/dL (8.5-10.1); CARBON DIOXIDE 24 mmol/L (21-32); CHLORIDE 96 mmol/L (98-107); CREATININE 2.7 mg/dL (0.6-1.3); GLUCOSE 145 mg/dL (74-106); PHOSPHORUS 4.7 mg/dL (2.5-4.9); POTASSIUM 4.4 mmol/L (3.5-5.1); SODIUM SERUM 136 mmol/L (136-145)
[2021-09-14 08:06] LABS: UREA NITROGEN, BLOOD 139 mg/dL (7-18)
[2021-09-14] MEDS: ARGININE/GLUTAMINE/CALCIUM BMB 1 EACH POWD.PACK GT SCH ×2 (08:29→16:31)
[2021-09-14] MEDS: CHLORHEXIDINE GLUCONATE 15 ML UDC MM SCH ×2 (08:29→16:30)
[2021-09-14] MEDS: PROSOURCE / PROSTAT (PYXIS) 30 ML UDC GT SCH ×2 (08:29→16:30)
[2021-09-14] MEDS: SEVELAMER CARBONATE 800 MG TABLET PO SCH ×3 (08:30→18:11)
[2021-09-14] MEDS: ASCORBIC ACID 500 MG TABLET GT SCH (08:30)
[2021-09-14] MEDS: ZINC SULFATE 220 MG CAPSULE GT SCH (08:30)
[2021-09-14] MEDS: PHENOBARBITAL 30 MG TABLET PO SCH ×2 (08:30→16:30)
[2021-09-14] MEDS: PANTOPRAZOLE 40 MG TABLET.DR PO SCH (08:30)
[2021-09-14] MEDS: DAKINS QUARTER STRENGTH (0.125%) 480 ML BOTTLE TOP SCH (08:32)
[2021-09-14] MEDS: METOCLOPRAMIDE HCL 10 MG TABLET PO SCH ×3 (08:33→18:11)
[2021-09-14] MEDS: DORZOLAMIDE OPTH 2% 10 ML BOTTLE OP SCH ×2 (08:50→16:31)
[2021-09-14] MEDS: CARVEDILOL 12.5 MG TABLET PO SCH ×2 (09:00→23:05)
--- NOTE | 2021-09-14 10:48 | NUR ---
CLAY ROASTER NOTES- BP MEDS COREG NOT GIVEN THIS AM DUE TO BP BEING 129/60
[2021-09-14 13:10] LABS: BAND % (MANUAL) 2 % (0.0-5.0); EOSINOPHILS % (MANUAL) 1 % (0-4); LYMPHOCYTES % (MANUAL) 7 % (16-48); MONOCYTES % (MANUAL) 8 % (0-11.0); MYELOCYTES % 3 % (0-0); NEUTROPHILS % (MANUAL) 79 (42-76)
[2021-09-14] MEDS: AMPICILLIN /SULBACTAM 3 G in IV NS 0.9% 50 ML IJ SCH (16:30)
[2021-09-14] MEDS: ACETAMINOPHEN 325 MG TABLET PO PRN (18:13)
--- NOTE | 2021-09-14 18:56 | NUR ---
SLIMER CLOSING NOTES Pt IN BED, EYES CLOSED, OBTUNDED, NONVERBAL. DAUGHTER IS AT BEDSIDE. Pt IS ON TRACH/VENT AND TOLERATING WELL, BREATHING IS EVEN AND NONLABORED. Pt IS CURRENTLY RECEIVING HEMODIALYSES AND TOLERATING WELL. WITH IV ACCESS AT [facility]. IT IS INTACT/PATENT/FLUSHES WELL. PERMA-CATH ON R-CHEST WALL INTACT WITH DRESSING. ON GT FEEDING NEPRO @40ML/HR. WITH F/C AND FLEXI-SEAL IN PLACE AND FUNCTIONING WELL. ON TELE MONITOR READING SR, HR 80BPM. DUE MEDS GIVEN. SAFETY MEASURES IN PLACE, BED IN LOWEST LOCKED POSITION, S/R UPX2, CALL LIGHT WITHIN REACH. WILL ENDORSE TO NEXT SHIFT.
--- NOTE | 2021-09-14 19:15 | NUR ---
security services specialist opening notes Received Pt from morning nurse. Pt is resting in bed comfortably accompanied by her daughter. Pt is obtunded and able to open eyes. Pt is on vent trach with O2 sat is 100%. No SOB. No S/S of distress noted. XIOMARA midline is clean and intact. RCW permacath is clean and intact. Pt is on HD at this time. Gtube feeding is running nephro 40 ml/hr with 0 residual. Pt tolerated well. Herring is intact and draining yellow urine. Flexiseal is intact. Tele monitor showed SR. Safety precautions is maintained. Bed at low position, brakes locked, side rails upX3, bed alarm is on and call light is within reach. Will continue to monitor.
--- NOTE | 2021-09-14 20:20 | NUR ---
it sales consultant notes Pt is done with dialysis with dialysis nurse NIMA Wells at the bedside. Pt is stable. Output 1 L. BP 98/46 and pulse 72. Pt's daughter at the bed side. Will continue to monitor.
[2021-09-14] MEDS: TOBRAMYCIN 80 MG in IV D5W 50 ML IV PRN (20:46)
[2021-09-14] MEDS: ALBUMIN 25% 25 GM in PREMIX 1 EA IV PRN (21:16)
[2021-09-14] MEDS: LATANOPROST EYE DROP 0.005% 2.5 ML BOTTLE OP SCH (23:08)
[2021-09-15] VITALS: BP 131/64
[2021-09-15] MEDS: BLOOD SUGAR DIAGNOSTIC 1 EACH STRIP IN SCH ×4 (00:07→18:22)
[2021-09-15] MEDS: INSULIN REGULAR, HUMAN 100 UNIT/ML 3 ML VIAL SQ PRN ×4 (00:11→18:23)
[2021-09-15] MEDS: IPRATROPIUM NEB FS 0.5 MG/2.5 ML AMPUL.NEB IH SCH ×4 (02:22→20:45)
[2021-09-15 04:00] VITALS: BP_SYST 132; BP_SYST 137; BP_DIAS 79
[2021-09-15] MEDS: PHENYTOIN SODIUM IV 100 MG/2ML VIAL IV SCH ×3 (04:04→21:28)
[2021-09-15] MEDS: NEPRO 1,000 ML BOTTLE GT PRN (04:10)
[2021-09-15] MEDS: VANCOMYCIN HCL 125 MG/2.5 ML ORAL.SUSP GT SCH ×3 (05:07→17:27)
--- NOTE | 2021-09-15 05:30 | NUR ---
distance education faculty liaison notes Pt's daughter asked to call her back. Called and spoke with Pt's daughter. informed Pt's daughter that Pt is resting in bed comfortably. VS is stable. No SOB. No S/s of distress noted. Pt is clean, dry and comfortable. Wound care provided. Pt's daughter appreciate the info.
--- NOTE | 2021-09-15 06:30 | NUR ---
boiler fitter closing notes Pt is resting in bed comfortably. Pt is obtunded and able to open eyes. Pt is on vent trach with O2 sat is 100%. No SOB. No S/S of distress noted. VS is stable. afebrile. XIOMARA midline is clean and intact. Routine meds were given as ordered. RCW permacath is clean and intact. Gtube feeding is running nephro 40 ml/hr with 0 residual. Pt tolerated well. Herring is intact. Flexiseal is intact. Tele monitor showed SR HR at 65. Wound care provided as ordered. Safety precautions is maintained. Bed at low position, brakes locked, side rails upX3, bed alarm is on and call light is within reach. Will endorse to am nurse for OTIS.
[2021-09-15 07:11] LABS: BASOPHILS # (AUTO) 0.1 K/uL (0.0-0.2); BASOPHILS % (AUTO) 0.3 % (0.0-2.0); EOSINOPHILS % (AUTO) 3.3 % (0.0-6.0); HEMATOCRIT 23 % (33-45); HEMOGLOBIN 7.4 g/dL (11.5-14.8); LYMPHOCYTES # (AUTO) 1.8 K/uL (0.8-4.8); LYMPHOCYTES % (AUTO) 8.9 % (20.0-44.0); MEAN CORPUSCULAR HGB CONC 32 g/dl (31.0-36.0); MEAN CORPUSCULAR VOLUME 96 fL (82-100); MONOCYTES # (AUTO) 1.6 K/uL (0.1-1.30); NEUTROPHILS # (AUTO) 15.9 K/uL (1.8-8.9); NEUTROPHILS % (AUTO) 79.5 % (43.0-81.0); PLATELET COUNT (AUTO) 516 K/uL (150-450); RED BLOOD CELL COUNT(AUTO) 2.42 MIL/uL (4.0-5.2)
--- NOTE | 2021-09-15 07:30 | NUR ---
HEAD OF SALES PROMOTION OPENING NOTE Patient lying in bed, asleep. Patient is non-verbal. On mechanical ventilator, breathing evenly and unlabored with the following settings: Portex 7, AC-14, TV-500, FiO2- 30%, PEEP-5. No s/s of distress noted. IV access on NASEEM midline, intact and patent.Herring catheter in place draining to an tabitha colored urine. Flexiseal in place and intact. Wound dressings dry and intact. On tele monitoring showing SR, HR on the 60's. Safety precautions in place: bed in low, locked position; siderails up x2; call light within reach. Will continue to monitor.
[2021-09-15 07:36] LABS: CALCIUM, SERUM 9.7 mg/dL (8.5-10.1); CARBON DIOXIDE 25 mmol/L (21-32); CHLORIDE 95 mmol/L (98-107); CREATININE 1.6 mg/dL (0.6-1.3); GLUCOSE 93 mg/dL (74-106); POTASSIUM 3.6 mmol/L (3.5-5.1); SODIUM SERUM 135 mmol/L (136-145); UREA NITROGEN, BLOOD 67 mg/dL (7-18)
--- NOTE | 2021-09-15 07:40 | NUR ---
RN NOTE Patient's Temp is 99.7, PRN Tylenol 650 mg given. Ice packs placed. Will continue to monitor patient.
[2021-09-15] MEDS: ACETAMINOPHEN 325 MG TABLET PO PRN ×2 (07:50→19:08)
[2021-09-15 08:00] VITALS: BP 136/49
[2021-09-15] MEDS: METOCLOPRAMIDE HCL 10 MG TABLET PO SCH ×3 (08:39→17:11)
[2021-09-15] MEDS: SEVELAMER CARBONATE 800 MG TABLET PO SCH ×3 (08:39→17:11)
[2021-09-15] MEDS: PANTOPRAZOLE 40 MG TABLET.DR PO SCH (08:39)
[2021-09-15] MEDS: PHENOBARBITAL 30 MG TABLET PO SCH ×2 (08:40→17:11)
[2021-09-15] MEDS: ASCORBIC ACID 500 MG TABLET GT SCH (08:40)
[2021-09-15] MEDS: CHLORHEXIDINE GLUCONATE 15 ML UDC MM SCH ×2 (08:40→17:11)
[2021-09-15] MEDS: ZINC SULFATE 220 MG CAPSULE GT SCH (08:40)
[2021-09-15] MEDS: CARVEDILOL 12.5 MG TABLET PO SCH ×2 (08:41→21:33)
[2021-09-15] MEDS: ARGININE/GLUTAMINE/CALCIUM BMB 1 EACH POWD.PACK GT SCH ×2 (08:43→17:11)
[2021-09-15] MEDS: PROSOURCE / PROSTAT (PYXIS) 30 ML UDC GT SCH ×2 (08:43→17:11)
[2021-09-15] MEDS: DORZOLAMIDE OPTH 2% 10 ML BOTTLE OP SCH ×2 (08:59→17:23)
[2021-09-15] MEDS: DAKINS QUARTER STRENGTH (0.125%) 480 ML BOTTLE TOP SCH (08:59)
--- NOTE | 2021-09-15 09:00 | NUR ---
RN NOTE Patient temp is 98. Will continue to monitor.
[2021-09-15 09:37] LABS: BAND % (MANUAL) 1 % (0.0-5.0); EOSINOPHILS % (MANUAL) 2 % (0-4); LYMPHOCYTES % (MANUAL) 11 % (16-48); METAMYELOCYTES % 2 % (0-0); MONOCYTES % (MANUAL) 1 % (0-11.0); MYELOCYTES % 2 % (0-0); NEUTROPHILS % (MANUAL) 81 (42-76)
[2021-09-15 12:00] VITALS: BP 117/64
[2021-09-15] MEDS: EPOETIN ALFA-EPBX 4,000 UNIT/ML VIAL IV SCH (15:05)
[2021-09-15] MEDS: CEFTAZIDIME/AVIBACTAM 0.94 GM in IV NS 0.9% 100 ML IV SCH (15:19)
[2021-09-15 16:00] VITALS: BP 152/52
[2021-09-15] MEDS ORDERED: VANC125C11 GT (16:24)
[2021-09-15] MEDS ORDERED: ASCO500T21 GT (16:24)
[2021-09-15] MEDS ORDERED: MIDO5TAB4 PO (16:24)
[2021-09-15] MEDS ORDERED: TOBR40VI2 IM/IV (16:24)
[2021-09-15] MEDS ORDERED: AMPI3VIA IJ (16:24)
[2021-09-15] MEDS ORDERED: CEFT2.5V IV (16:24)
[2021-09-15] MEDS: AMPICILLIN /SULBACTAM 3 G in IV NS 0.9% 50 ML IJ SCH (17:10)
--- NOTE | 2021-09-15 18:45 | NUR ---
RN NOTE Report given to Brittani of [place] at [facility].
--- NOTE | 2021-09-15 19:00 | NUR ---
Patient temp is 100.1, PRN Tylenol 650 mg given.
--- NOTE | 2021-09-15 19:50 | NUR ---
TOE LINING CLOSER CLOSING NOTE Patient lying in bed, eyes closed. Patient is non-verbal. On mechanical ventilator, breathing evenly and unlabored with the following settings: Portex 7, AC-14, TV-500, FiO2- 30%, PEEP-5. No s/s of distress noted. IV access on NASEEM midline, intact and patent. Herring catheter in place draining to an tabitha colored urine. Flexiseal in place and intact. Wound care done, as ordered. Due meds given. On tele monitoring showing SR, HR on the 60's. Safety precautions maintained: bed in low, locked position; siderails up x2; call light within reach. Will endorse to night time nanny nurse for OTIS.
--- NOTE | 2021-09-15 19:55 | NUR ---
ACOUSTICAL TILE CARPENTERS SUPERVISOR OPENING NOTES: RECEIVED PATIENT IN BED, NON VERBAL, OPENS EYES. NO S/S OF DISTRESS NOTED. NOT MOANING. DAUGHTER AT THE BEDSIDE AND AWARE OF D/C CANCELLED DUE TO TEMP 101.2. HOB ELEVATED AT ALL TIMES. GT FEEDING NEPRO RESUMED AT 40ML/HOUR, NO RESIDUAL NOTED. GT SITE DRESSING CHANGED. CHARGE NURSE LEONIE AWARE OF D/C CANCELLATION.BED IN LOWEST AND LOCKED POSITION. BED ALARM ON. HEELS OFFLOADED. Addendum: 09/15/21 at 2037 by FLORENTINO FLYNN RN EYES CLOSED.
[2021-09-15 20:00] VITALS: BP 136/49
--- NOTE | 2021-09-15 20:00 | NUR ---
GT FEEDING RESIDUAL CHECKED,NO RESIDUAL.
--- NOTE | 2021-09-15 20:38 | NUR ---
PATIENT ON TELE MONITOR ON SINUS 71. ON VENTILATOR, BREATHING EVEN AND UNLABORED.
--- NOTE | 2021-09-15 21:11 | NUR ---
INFORMED CHEF PASSENGER VESSEL TASIA RE: PATIENT'S TEMP OF 101.2 AND SNF DOES NOT WANT TO ACCEPT THE PATIENT.
--- NOTE | 2021-09-15 22:15 | NUR ---
PATIENT'S DAUGHTER REPORTED THAT RIGHT UPPER ARM MIDLINE TAPE ARE LOOSE, SHE'S SHOWING THE MIDLINE BY LIFTING THE RIGHT ARM. CHECKED THE LINE, MIDLINE'S CATHETER WAS COMPLETELY OUT.
[2021-09-15] MEDS: LATANOPROST EYE DROP 0.005% 2.5 ML BOTTLE OP SCH (23:19)
--- NOTE | 2021-09-15 23:28 | NUR ---
IV INSERTED TO THE RIGHT FOOT G22, WITH GOOD BLOOD RETURN, BY CHARGE NURSE LEONIE.
[2021-09-16] VITALS: BP 111/42
[2021-09-16] MEDS: ACETAMINOPHEN 325 MG TABLET PO PRN ×2 (00:55→21:00)
[2021-09-16] MEDS: VANCOMYCIN HCL 125 MG/2.5 ML ORAL.SUSP GT SCH ×4 (00:55→17:12)
--- NOTE | 2021-09-16 01:17 | NUR ---
GT FEEDING RESIDUAL=10ML ONLY.
[2021-09-16] MEDS: IPRATROPIUM NEB FS 0.5 MG/2.5 ML AMPUL.NEB IH SCH ×4 (02:33→20:07)
[2021-09-16 04:00] VITALS: BP 107/49
[2021-09-16] MEDS: PHENYTOIN SODIUM IV 100 MG/2ML VIAL IV SCH ×3 (05:39→21:01)
[2021-09-16] MEDS: BLOOD SUGAR DIAGNOSTIC 1 EACH STRIP IN SCH ×4 (06:43→17:56)
[2021-09-16 06:55] LABS: BASOPHILS # (AUTO) 0.1 K/uL (0.0-0.2); BASOPHILS % (AUTO) 0.5 % (0.0-2.0); HEMATOCRIT 24 % (33-45); HEMOGLOBIN 7.7 g/dL (11.5-14.8); MEAN CORPUSCULAR HGB CONC 32 g/dl (31.0-36.0); MEAN CORPUSCULAR VOLUME 97 fL (82-100); MONOCYTES # (AUTO) 1.9 K/uL (0.1-1.30); MONOCYTES % (AUTO) 9.2 % (2.0-12.0); NEUTROPHILS # (AUTO) 15.4 K/uL (1.8-8.9); NEUTROPHILS % (AUTO) 76.3 % (43.0-81.0); PLATELET COUNT (AUTO) 502 K/uL (150-450); RED BLOOD CELL COUNT(AUTO) 2.46 MIL/uL (4.0-5.2); WHITE BLOOD COUNT (AUTO) 20.2 K/uL (4.3-11.0)
[2021-09-16 07:11] LABS: CALCIUM, SERUM 10.1 mg/dL (8.5-10.1); CARBON DIOXIDE 23 mmol/L (21-32); CHLORIDE 93 mmol/L (98-107); CREATININE 2.1 mg/dL (0.6-1.3); GLUCOSE 120 mg/dL (74-106); POTASSIUM 3.7 mmol/L (3.5-5.1); SODIUM SERUM 132 mmol/L (136-145)
[2021-09-16 07:17] LABS: UREA NITROGEN, BLOOD 110 mg/dL (7-18)
--- NOTE | 2021-09-16 07:35 | NUR ---
GEOLOGICAL DRAFTER OPENING NOTES: RECEIVED PATIENT ON BED, NON VERBAL, EYES CLOSED, RESPONSIVE TO TACTILE STIMULI. ON MECHANICAL VENTILATOR WITH THE FOLLOWING SETTINGS: PORTEX 7, AC 14, TV 500, FIO2 30%, PEEEP 5. NO S/S OF DISTRESS NOTED. ON TELE MONITOR WITH NSR HR @66. IV ACCESS ON RIGHT FOOT INTACT AND PATENT. WITH G-TUBE INTACT AND PATENT, GT FEEDING NEPRO RUNNING AT 40ML/HOUR. HOB ELEVATED AT ALL TIMES. SAFETY MEASURES IN PLACE, BED IN LOWEST AND LOCKED POSITION. SR UP X2. HEELS OFFLOADED. WILL CONTINUE TO MONITOR.
[2021-09-16] MEDS: METOCLOPRAMIDE HCL 10 MG TABLET PO SCH ×3 (07:46→17:09)
[2021-09-16] MEDS: SEVELAMER CARBONATE 800 MG TABLET PO SCH ×3 (07:46→17:09)
[2021-09-16] MEDS: PANTOPRAZOLE 40 MG TABLET.DR PO SCH (07:46)
[2021-09-16 08:20] VITALS: BP 120/34
[2021-09-16] MEDS: ARGININE/GLUTAMINE/CALCIUM BMB 1 EACH POWD.PACK GT SCH ×2 (08:53→16:22)
[2021-09-16] MEDS: ZINC SULFATE 220 MG CAPSULE GT SCH (08:53)
[2021-09-16] MEDS: ASCORBIC ACID 500 MG TABLET GT SCH (08:53)
[2021-09-16] MEDS: PROSOURCE / PROSTAT (PYXIS) 30 ML UDC GT SCH ×2 (08:53→16:20)
[2021-09-16] MEDS: PHENOBARBITAL 30 MG TABLET PO SCH ×2 (08:53→16:20)
[2021-09-16] MEDS: CARVEDILOL 12.5 MG TABLET PO SCH ×2 (08:55→21:01)
[2021-09-16] MEDS: DORZOLAMIDE OPTH 2% 10 ML BOTTLE OP SCH ×2 (08:59→17:15)
[2021-09-16] MEDS: DAKINS QUARTER STRENGTH (0.125%) 480 ML BOTTLE TOP SCH (08:59)
[2021-09-16] MEDS: CHLORHEXIDINE GLUCONATE 15 ML UDC MM SCH ×2 (09:00→16:20)
[2021-09-16] MEDS: NEPRO 1,000 ML BOTTLE GT PRN (09:10)
[2021-09-16 10:32] LABS: LYMPHOCYTES % (MANUAL) 14 % (16-48); METAMYELOCYTES % 2 % (0-0); MONOCYTES % (MANUAL) 14 % (0-11.0); MYELOCYTES % 2 % (0-0); NEUTROPHILS % (MANUAL) 67 (42-76)
--- NOTE | 2021-09-16 10:50 | NUR ---
RN NOTES HEMODIALYSIS STARTED BY MARCH, HD NURSE, PRE HD B/P 126/51, P 70.
[2021-09-16 12:00] VITALS: BP 109/39
--- NOTE | 2021-09-16 13:50 | NUR ---
RN NOTES HEMODIALYSIS DONE, WITH UF 900ML. POST HD BP 134/47, P 83. HD TOLERATED WELL.
[2021-09-16] MEDS: TOBRAMYCIN 80 MG in IV D5W 50 ML IV PRN (14:05)
[2021-09-16] MEDS: AMPICILLIN /SULBACTAM 3 G in IV NS 0.9% 50 ML IJ SCH (15:52)
--- NOTE | 2021-09-16 15:55 | NUR ---
RN NOTES MIDLINE INSERTED BY PICC NIMA RIOS ON LEFT UPPER ARM. PROCEDURE TOLERATED WELL.
[2021-09-16] MEDS ORDERED: EPOETIN ALFA (10,000 UNIT) 10,000 UNIT/ML VIAL IV ONE (16:30)
[2021-09-16 16:33] VITALS: BP 138/48
--- NOTE | 2021-09-16 18:42 | NUR ---
MARKETING SERVICES VICE PRESIDENT CLOSING NOTES PT LYING ON BED, AT MODERATE HIGH BACKREST POSITION. PT IS OBTUNDED, OPENS EYES ON AND OFF. PT WITH TRACH PORTEX # 7 CONNECTED TO MECHANICAL VENTILATOR WITH SETTINGS OF: AC 14 TV 500, FI02 30%, PEEP 5, TOLERATING SETTINGS WELL WITH NO ACUTE RESPIRATORY DISTRESS NOTED THROUGHOUT THE SHIFT. AFEBRILE THROUGHOUT THE SHIFT. STRICT ISOLATION PRECAUTIONS OBSERVED. TELE-MONITOR SHOWS NSR WITH HR ON THE 70'S. G-TUBE IN PLACE WITH GTF OF NEPRO AT 40ML/HR IN PROGRESS, TOLERATING WELL. ASPIRATION PRECAUTIONS OBSERVED.MIDLINE ON LEFT UPPER ARM PATENT AND INTACT. RIGHT SUBCLAVIAN PERMACATH IN PLACE WITH DRESSING C/D/I. F/C INTACT. RECTAL FLEXI SEAL TUBE IN PLACE WITH BROWNISH WATERY STOOL NOTED. PT TURNED AND REPOSITIONED Q 2HRS AND PRN. KEPT CLEAN, DRY. SAFETY MEASURES IN PLACE: BED IN LOWEST LOCKED POSITION, S/R UP AND CALL LIGHT WITHIN REACH. WILL ENDORSE TO CONTRACTOR GENERAL BUILDING NURSE.
--- NOTE | 2021-09-16 19:10 | NUR ---
DIE MECHANIC OPENING NOTES: RECEIVED PATIENT IN BED, OPEN EYES OCCASIONALY, NON VERBAL. NO S/S OF DISTRESS NOTED. NOT IN PAIN, NO MOANING, APPEARS COMFORTABLE. HOB ELEVATED AT ALL TIMES. BED ALARM ON. BED IN LOWEST AND LOCKED POSITION. DAUGHTER AT THE BEDSIDE. CONTACT ISOLATION MAINTAINED AT ALL TIMES, DAUGHTER REMINDED, VERBALIZED UNDERSTANDING. WITH TRACH TO MECHANICAL VENT, WITH O2 SAT AT 100%. WITH PROCTOR CATH INTACT AND RECTAL TUBE INTACT. TF NEPRO AT 40ML/HOUR RUNNING. WILL CHECK THE RESIDUAL. HAD HD TODAY WITH 900CC OUTPUT PER REPORTS.
[2021-09-16 20:00] VITALS: BP 124/50
--- NOTE | 2021-09-16 20:18 | NUR ---
PATIENT IS ON TELE MONITORING SINUS 83.
[2021-09-16] MEDS: Z GUARD REMEDY 2 OZ OINT TP PRN (20:45)
[2021-09-16] MEDS: LATANOPROST EYE DROP 0.005% 2.5 ML BOTTLE OP SCH (23:25)
[2021-09-17] MEDS: MIDODRINE HCL (5MG) 5 MG TABLET PO PRN (00:05)
[2021-09-17] MEDS: VANCOMYCIN HCL 125 MG/2.5 ML ORAL.SUSP GT SCH ×5 (00:08→23:38)
[2021-09-17 00:53] VITALS: BP 113/50
--- NOTE | 2021-09-17 00:55 | NUR ---
blood sugar [id number]
--- NOTE | 2021-09-17 01:36 | NUR ---
GT SITE DRESSING CHANGED.
[2021-09-17] MEDS: IPRATROPIUM NEB FS 0.5 MG/2.5 ML AMPUL.NEB IH SCH ×4 (02:05→19:44)
[2021-09-17 04:00] VITALS: BP_SYST 119; BP_DIAS 43; BP_DIAS 46
[2021-09-17] MEDS: PHENYTOIN SODIUM IV 100 MG/2ML VIAL IV SCH ×3 (04:57→20:40)
[2021-09-17] MEDS: BLOOD SUGAR DIAGNOSTIC 1 EACH STRIP IN SCH ×5 (06:00→23:39)
--- NOTE | 2021-09-17 06:31 | NUR ---
LAY OUT FORMER CLOSING NOTES: PATIENT IS COMFORTABLE, NO MOANING, NO S/S OF DISTRESS NOTED. BED ALARM ON. BED IN LOWEST AND LOCKED POSITION. HOB ELEVATED AT ALL TIMES. TURNED AND REPOSITIONED Q 2 HOURS. HEELS OFFLOADED. WOUND TREATMENTS DONE. WITH PROCTOR CAHTETER INTACT. WITH RECTAL TUBE INTACT, BROWNISH LIQUIDY COLOR OUTPUT. ON TELE MONITOR SINUS RHYTHM 70 AT THIS TIME. WITH GT FEEDING NEPRO AT 40ML/HOUR RUNNING, NO RESIDUAL NOTED. WITH MECHANICAL VENT WITH O2 SAT OF 100%. BLOOD SUGAR [id number]=900. CONTACT ISOLATION PRECAUTIONS MAINTAINED AT ALL TIMES.
[2021-09-17 06:32] LABS: BASOPHILS # (AUTO) 0.1 K/uL (0.0-0.2); BASOPHILS % (AUTO) 0.4 % (0.0-2.0); EOSINOPHILS % (AUTO) 3.5 % (0.0-6.0); HEMATOCRIT 24 % (33-45); HEMOGLOBIN 7.6 g/dL (11.5-14.8); LYMPHOCYTES # (AUTO) 1.9 K/uL (0.8-4.8); LYMPHOCYTES % (AUTO) 9.1 % (20.0-44.0); MEAN CORPUSCULAR HGB CONC 32 g/dl (31.0-36.0); MEAN CORPUSCULAR VOLUME 96 fL (82-100); MONOCYTES # (AUTO) 2.1 K/uL (0.1-1.30); MONOCYTES % (AUTO) 10.1 % (2.0-12.0); NEUTROPHILS # (AUTO) 16.1 K/uL (1.8-8.9); NEUTROPHILS % (AUTO) 76.9 % (43.0-81.0); PLATELET COUNT (AUTO) 507 K/uL (150-450); RED BLOOD CELL COUNT(AUTO) 2.48 MIL/uL (4.0-5.2); WHITE BLOOD COUNT (AUTO) 20.9 K/uL (4.3-11.0)
[2021-09-17 06:36] LABS: CALCIUM, SERUM 9.5 mg/dL (8.5-10.1); CARBON DIOXIDE 27 mmol/L (21-32); CHLORIDE 95 mmol/L (98-107); CREATININE 1.6 mg/dL (0.6-1.3); GLUCOSE 137 mg/dL (74-106); MAGNESIUM 2.4 mg/dL (1.8-2.4); PHOSPHORUS 2.5 mg/dL (2.5-4.9); POTASSIUM 3.6 mmol/L (3.5-5.1); SODIUM SERUM 135 mmol/L (136-145); UREA NITROGEN, BLOOD 78 mg/dL (7-18)
--- NOTE | 2021-09-17 07:30 | NUR ---
WEATHERIZATION FIELD TECHNICIAN OPENING NOTES: RECEIVED PATIENT ON BED, NON VERBAL, EYES CLOSED, RESPONSIVE TO TACTILE STIMULI. ON MECHANICAL VENTILATOR WITH THE FOLLOWING SETTINGS: PORTEX 7, AC 14, TV 500, FIO2 30%, PEEEP 5. NO S/S OF DISTRESS NOTED. ON TELE MONITOR WITH NSR HR70 .XIOMARA MIDLINE INTACT AND PATENT. WITH G-TUBE INTACT AND PATENT, GT FEEDING NEPRO RUNNING AT 40ML/HOUR. HOB ELEVATED AT ALL TIMES. SAFETY MEASURES IN PLACE, BED IN LOWEST AND LOCKED POSITION. SR UP X2. HEELS OFFLOADED. WILL CONTINUE TO MONITOR.
[2021-09-17 08:00] VITALS: BP 122/49
[2021-09-17] MEDS: CARVEDILOL 12.5 MG TABLET PO SCH ×2 (09:00→20:47)
[2021-09-17] MEDS: PHENOBARBITAL 30 MG TABLET PO SCH ×2 (09:42→16:39)
[2021-09-17] MEDS: METOCLOPRAMIDE HCL 10 MG TABLET PO SCH ×3 (09:43→17:46)
[2021-09-17] MEDS: PROSOURCE / PROSTAT (PYXIS) 30 ML UDC GT SCH ×2 (09:44→16:40)
[2021-09-17] MEDS: ZINC SULFATE 220 MG CAPSULE GT SCH (09:44)
[2021-09-17] MEDS: DAKINS QUARTER STRENGTH (0.125%) 480 ML BOTTLE TOP SCH (09:46)
[2021-09-17] MEDS: CHLORHEXIDINE GLUCONATE 15 ML UDC MM SCH ×2 (09:47→16:40)
[2021-09-17] MEDS: DORZOLAMIDE OPTH 2% 10 ML BOTTLE OP SCH ×2 (09:47→16:41)
[2021-09-17] MEDS: PANTOPRAZOLE 40 MG TABLET.DR PO SCH (09:51)
[2021-09-17] MEDS: ARGININE/GLUTAMINE/CALCIUM BMB 1 EACH POWD.PACK GT SCH ×2 (09:58→16:40)
[2021-09-17] MEDS: ASCORBIC ACID 500 MG TABLET GT SCH (10:00)
[2021-09-17] MEDS: SEVELAMER CARBONATE 800 MG TABLET PO SCH ×3 (10:04→17:46)
[2021-09-17 12:00] VITALS: BP 120/65
[2021-09-17] MEDS: NEPRO 1,000 ML BOTTLE GT PRN (12:54)
[2021-09-17] MEDS: EPOETIN ALFA-EPBX 4,000 UNIT/ML VIAL IV SCH (15:27)
[2021-09-17] MEDS: CEFTAZIDIME/AVIBACTAM 0.94 GM in IV NS 0.9% 100 ML IV SCH (15:27)
[2021-09-17 16:00] VITALS: BP 113/41
[2021-09-17] MEDS: AMPICILLIN /SULBACTAM 3 G in IV NS 0.9% 50 ML IJ SCH (17:10)
--- NOTE | 2021-09-17 18:35 | NUR ---
DRAFTER APPRENTICE CLOSING NOTES: PATIENT ON BED, NON VERBAL, EYES CLOSED, RESPONSIVE TO TACTILE STIMULI. ON MECHANICAL VENTILATOR WITH THE FOLLOWING SETTINGS: PORTEX 7, AC 14, TV 500, FIO2 30%, PEEEP 5. NO S/S OF DISTRESS NOTED. ON TELE MONITOR WITH NSR HR70 .XIOMARA MIDLINE INTACT AND PATENT. WITH G-TUBE INTACT AND PATENT, GT FEEDING NEPRO RUNNING AT 40ML/HOUR. HOB ELEVATED AT ALL TIMES. ALL DUE MEDS AND TREATMENTS GIVEN ORDERED. SAFETY MEASURES IN PLACE, BED IN LOWEST AND LOCKED POSITION. SR UP X2. HEELS OFFLOADED. WILL ENDORSE INCOMING SHIFT FOR OTIS.
[2021-09-17 18:56] LABS: COLOR,URINE RED (YELLOW)
[2021-09-17 18:57] LABS: PH,URINE 7.5 (5.0-8.0); PROTEIN,URINE 4+ mg/dl (NEGATIVE); UGLUCOSE NEGATIVE (NEGATIVE)
[2021-09-17 18:58] LABS: BILIRUBIN,URINE NEGATIVE (NEGATIVE); UROBILINOGEN,URINE 0.2 EU/dL (0.2)
[2021-09-17 18:59] LABS: LEUKOCYTE ESTERASE ,URINE LARGE (NEGATIVE); NITRITE, URINE NEGATIVE (NEGATIVE)
[2021-09-17 19:00] LABS: BACTERIA,URINE 3+ /HPF (None Seen); RBC,URINE 21-50 /HPF (0-2); WBC,URINE 51-80 /HPF (0-3)
[2021-09-17 19:01] LABS: SQUAMOUS EPITHELIAL CELL,UR Few /HPF (None Seen); YEAST,URINE Many /HPF (None Seen)
--- NOTE | 2021-09-17 20:29 | NUR ---
MACHINE BOOKKEEPER OPENING NOTES: PATIENT ON BED, NON VERBAL, EYES CLOSED, RESPONSIVE TO TACTILE STIMULI. ON MECHANICAL VENTILATOR WITH THE FOLLOWING SETTINGS: PORTEX 7, AC 14, TV 500, FIO2 30%, PEEEP 5. NO S/S OF DISTRESS NOTED. ON TELE MONITOR WITH NSR HR70 .XIOMARA MIDLINE INTACT AND PATENT. WITH G-TUBE INTACT AND PATENT, GT FEEDING NEPRO RUNNING AT 40ML/HOUR. HOB ELEVATED AT ALL TIMES. SAFETY MEASURES IN PLACE, BED IN LOWEST AND LOCKED POSITION. SR UP X2. HEELS OFFLOADED. WILL CONTINUE TO MONITOR.
[2021-09-17 20:30] VITALS: BP 128/59
--- NOTE | 2021-09-17 20:49 | NUR ---
FITTER MECHANIC NOTES PT HAS BEEN HAVING EPISODES OF DECREASED BLOOD PRESSURE PER FAMILY DIDN'T WANT THE BLOOD PRESSURE MEDICATION GIVEN DUE THE PT IS SCHEDULED FOR DYALYSIS WELL TOMORROW MORNING. RISK AND BENEFITS EXPLAINED X3 REFUSED X3. WILL CONTINUE TO MONITOR
[2021-09-17] MEDS: LATANOPROST EYE DROP 0.005% 2.5 ML BOTTLE OP SCH (21:03)
[2021-09-17] MEDS: INSULIN REGULAR, HUMAN 100 UNIT/ML 3 ML VIAL SQ PRN (23:49)
[2021-09-18 00:27] VITALS: BP 121/47
[2021-09-18] MEDS: IPRATROPIUM NEB FS 0.5 MG/2.5 ML AMPUL.NEB IH SCH ×4 (02:02→20:02)
[2021-09-18 04:06] VITALS: BP 121/47
[2021-09-18] MEDS: PHENYTOIN SODIUM IV 100 MG/2ML VIAL IV SCH ×3 (04:14→20:39)
[2021-09-18] MEDS: ACETAMINOPHEN 325 MG TABLET PO PRN (04:14)
[2021-09-18] MEDS: BLOOD SUGAR DIAGNOSTIC 1 EACH STRIP IN SCH ×3 (05:36→18:24)
[2021-09-18] MEDS: INSULIN REGULAR, HUMAN 100 UNIT/ML 3 ML VIAL SQ PRN ×3 (05:37→12:41)
[2021-09-18] MEDS: VANCOMYCIN HCL 125 MG/2.5 ML ORAL.SUSP GT SCH ×4 (05:38→23:27)
--- NOTE | 2021-09-18 06:46 | NUR ---
POULTRY SERVICE TECHNICIAN OPENING NOTES: PATIENT ON BED, NON VERBAL, EYES CLOSED, RESPONSIVE TO TACTILE STIMULI. ON MECHANICAL VENTILATOR WITH THE FOLLOWING SETTINGS: PORTEX 7, AC 14, TV 500, FIO2 30%, PEEEP 5. NO S/S OF DISTRESS NOTED. ON TELE MONITOR WITH NSR HR70 .XIOMARA MIDLINE INTACT AND PATENT. WITH G-TUBE INTACT AND PATENT, GT FEEDING NEPRO RUNNING AT 40ML/HOUR. HOB ELEVATED AT ALL TIMES. SAFETY MEASURES IN PLACE, BED IN LOWEST AND LOCKED POSITION. SR UP X2. HEELS OFFLOADED. ALL DUE MEDS GIVEN PRN TYLENOL GIVEN FOR LOW GRADE FEVER.WILL ENDORSE CARE TO DAY SHIFT NURSE.
[2021-09-18 06:54] LABS: BASOPHILS # (AUTO) 0.1 K/uL (0.0-0.2); BASOPHILS % (AUTO) 0.3 % (0.0-2.0); EOSINOPHILS % (AUTO) 2.9 % (0.0-6.0); HEMATOCRIT 24 % (33-45); HEMOGLOBIN 7.6 g/dL (11.5-14.8); LYMPHOCYTES % (AUTO) 11.8 % (20.0-44.0); MEAN CORPUSCULAR HGB CONC 32 g/dl (31.0-36.0); MEAN CORPUSCULAR VOLUME 96 fL (82-100); MONOCYTES # (AUTO) 2.3 K/uL (0.1-1.30); MONOCYTES % (AUTO) 9.1 % (2.0-12.0); NEUTROPHILS # (AUTO) 19.1 K/uL (1.8-8.9); NEUTROPHILS % (AUTO) 75.9 % (43.0-81.0); PLATELET COUNT (AUTO) 582 K/uL (150-450); RED BLOOD CELL COUNT(AUTO) 2.45 MIL/uL (4.0-5.2); WHITE BLOOD COUNT (AUTO) 25.1 K/uL (4.3-11.0)
[2021-09-18 07:01] LABS: CALCIUM, SERUM 10.6 mg/dL (8.5-10.1); CARBON DIOXIDE 25 mmol/L (21-32); CHLORIDE 94 mmol/L (98-107); CREATININE 2.2 mg/dL (0.6-1.3); GLUCOSE 118 mg/dL (74-106); SODIUM SERUM 134 mmol/L (136-145)
[2021-09-18 07:06] LABS: UREA NITROGEN, BLOOD 121 mg/dL (7-18)
--- NOTE | 2021-09-18 07:54 | NUR ---
LINOLEUM INSTALLER OPENING NOTES: Pt IN BED, NON VERBAL, EYES CLOSED, ON MECHANICAL VENTILATOR WITH NO S/S OF DISTRESS NOTED. .XIOMARA MIDLINE INTACT AND PATENT. WITH G-TUBE INTACT AND PATENT, GT FEEDING NEPRO RUNNING AT 40ML/HOUR. HOB ELEVATED AT ALL TIMES. SAFETY MEASURES IN PLACE, BED IS LOCKED AND IN LOWEST POSITION. SR UP X2. HEELS OFFLOADED. SAFETY MEASURES IN PLACE, BED IS LOCKED AND IN LOWEST POSITION, SIDE RAILS UP X 2, BEDSIDE TABLE AND CALL LIGHT WITHIN REACH. WILL CONTINUE TO MONITOR.
[2021-09-18 08:41] LABS: EOSINOPHILS % (MANUAL) 1 % (0-4); LYMPHOCYTES % (MANUAL) 12 % (16-48); MONOCYTES % (MANUAL) 6 % (0-11.0); NEUTROPHILS % (MANUAL) 81 (42-76)
[2021-09-18] MEDS: PANTOPRAZOLE 40 MG TABLET.DR PO SCH (08:47)
[2021-09-18] MEDS: PROSOURCE / PROSTAT (PYXIS) 30 ML UDC GT SCH ×2 (08:47→17:45)
[2021-09-18] MEDS: ARGININE/GLUTAMINE/CALCIUM BMB 1 EACH POWD.PACK GT SCH ×2 (08:47→17:45)
[2021-09-18] MEDS: SEVELAMER CARBONATE 800 MG TABLET PO SCH ×3 (08:47→17:46)
[2021-09-18] MEDS: ASCORBIC ACID 500 MG TABLET GT SCH (08:48)
[2021-09-18] MEDS: PHENOBARBITAL 30 MG TABLET PO SCH ×2 (08:48→17:46)
[2021-09-18] MEDS: ZINC SULFATE 220 MG CAPSULE GT SCH (08:48)
[2021-09-18] MEDS: METOCLOPRAMIDE HCL 10 MG TABLET PO SCH ×3 (08:48→17:45)
[2021-09-18 08:49] VITALS: BP 132/62
[2021-09-18] MEDS: DORZOLAMIDE OPTH 2% 10 ML BOTTLE OP SCH ×2 (08:50→17:46)
[2021-09-18] MEDS: DAKINS QUARTER STRENGTH (0.125%) 480 ML BOTTLE TOP SCH (08:51)
[2021-09-18] MEDS: CARVEDILOL 12.5 MG TABLET PO SCH ×2 (09:00→21:00)
--- NOTE | 2021-09-18 09:05 | NUR ---
RT NOTE PT TRANSFERRED TO CT AND BACK TO 317 WITH NO COMPLICATIONS. RN CASH GUTIERREZ.
[2021-09-18] MEDS: CHLORHEXIDINE GLUCONATE 15 ML UDC MM SCH ×2 (09:22→17:45)
--- NOTE | 2021-09-18 09:23 | NUR ---
MOTION PICTURE COMMENTATOR NOTES- BP MEDS PT BP [id number]/62 AND HR WAS 70. Pt WILL BE HAVING DIALYSIS THIS AM THEREFORE BP MEDS HELD.
[2021-09-18 12:00] VITALS: BP 156/47
[2021-09-18] MEDS: PIPERACILLIN /TAZOBACTAM 2.25 G in IV D5W 50 ML IV SCH ×2 (13:10→21:00)
[2021-09-18 16:07] VITALS: BP 125/55
[2021-09-18] MEDS: TOBRAMYCIN 80 MG in IV D5W 50 ML IV PRN (17:57)
--- NOTE | 2021-09-18 18:42 | NUR ---
SKIVER COUNTER CLOSING NOTES: Pt IN BED, NON VERBAL, EYES CLOSED, ON MECHANICAL VENTILATOR WITH NO S/S OF DISTRESS NOTED.XIOMARA MIDLINE INTACT AND PATENT. WITH G-TUBE INTACT AND PATENT, GT FEEDING NEPRO RUNNING AT 40ML/HOUR. HOB ELEVATED AT ALL TIMES. Pt IS ON TELE MONITOR WITH 79 BPM. SAFETY MEASURES IN PLACE, BED IS LOCKED AND IN LOWEST POSITION. SR UP X2. BEDSIDE TABLE AND CALL LIGHT WITHIN REACH. DAUGHTER IS AT BEDSIDE. WILL ENDORSE TO ONCOMING SHIFT
[2021-09-18] MEDS: NEPRO 1,000 ML BOTTLE GT PRN (19:51)
[2021-09-18 20:00] VITALS: BP 123/45
--- NOTE | 2021-09-18 20:00 | NUR ---
RCEIVED PATIENT IN HER BED DAUGHTER AT THE BEDSIDE MOTHER NOT OPENING HER EYES AND IS NONVERBAL DAUGHTER COMMENTED THAT HER MOM HAS BEEN LIKE THIS FOR 1 YEAR AFTER THE STROKE AND THAT PRIOR SHE WAS WALKING WITH A WALKER AND TAKING SHOWERS MIDLINE PATENT PROCTOR CATH PRESENT NO UA SEEN PATIENT IS A HD PATIENT AND HAD HD TODAY ISOLATION D/T C-DIFF ON A TRACH TIES CHANGES AND THE GAUZE PEG FEEDING GOING AT 40 ML HR
[2021-09-18] MEDS: LATANOPROST EYE DROP 0.005% 2.5 ML BOTTLE OP SCH (22:16)
[2021-09-19] MEDS: BLOOD SUGAR DIAGNOSTIC 1 EACH STRIP IN SCH ×4 (00:08→17:48)
[2021-09-19] MEDS: IPRATROPIUM NEB FS 0.5 MG/2.5 ML AMPUL.NEB IH SCH ×4 (01:34→19:53)
[2021-09-19] MEDS: PHENYTOIN SODIUM IV 100 MG/2ML VIAL IV SCH ×3 (04:42→21:05)
[2021-09-19] MEDS: PIPERACILLIN /TAZOBACTAM 2.25 G in IV D5W 50 ML IV SCH ×3 (04:42→21:04)
--- NOTE | 2021-09-19 05:02 | NUR ---
CLOSING NOTES:NONVERBAL OBTUNDED STG4 ON HER SACRUM MEPLEX 9IN PL[address] FLEXICEL NOTED BROWN LOOSE STOOL PROCTOR NO URINE PATIENT ANURIC LAST HEMDIALYSIS 09/18 ASP PRECAUTIONS THIS 12 HOURS D/T INFUSING FEEDING VIA HER PEG. AFEBRILE COREG HELD AT 2100 D/T DTR'S WISHES
[2021-09-19] MEDS: VANCOMYCIN HCL 125 MG/2.5 ML ORAL.SUSP GT SCH ×3 (05:53→17:26)
--- NOTE | 2021-09-19 07:16 | NUR ---
SEAT MENDER OPENING NOTES: PT IN BED, NON VERBAL, OBTUNDED, EYES CLOSED. RESPONDS TO TACTILE STIMULUS. ON MECHANICAL VENTILATOR W/ SETTINGS TOLERATED, NO S/S OF RESPIRATORY DISTRESS. XIOMARA MIDLINE INTACT AND PATENT. G-TUBE INTACT AND PATENT, FEEDING OF NEPRO RUNNING AT 40ML/HOUR. HOB ELEVATED AT ALL TIMES, ASPIRATION PRECS OBSERVED. PROCTOR CATH IN PLACE, DRAINING YELLOW-COLORED URINE. HEELS OFFLOADED; DRESSING TO WOUND C/D/I, NO BLEEDING NOTED. SAFETY MEASURES IN PLACE: BED LOCKED AND IN LOWEST POSITION, SR UP X2, CALL LIGHT WITHIN REACH. WILL CONTINUE TO MONITOR.
[2021-09-19 07:23] LABS: BASOPHILS # (AUTO) 0.1 K/uL (0.0-0.2); BASOPHILS % (AUTO) 0.6 % (0.0-2.0); EOSINOPHILS % (AUTO) 2.5 % (0.0-6.0); HEMATOCRIT 21 % (33-45); LYMPHOCYTES # (AUTO) 2.1 K/uL (0.8-4.8); LYMPHOCYTES % (AUTO) 9.9 % (20.0-44.0); MEAN CORPUSCULAR HGB CONC 33 g/dl (31.0-36.0); MEAN CORPUSCULAR VOLUME 96 fL (82-100); MONOCYTES % (AUTO) 9.4 % (2.0-12.0); NEUTROPHILS # (AUTO) 16.2 K/uL (1.8-8.9); NEUTROPHILS % (AUTO) 77.6 % (43.0-81.0); PLATELET COUNT (AUTO) 502 K/uL (150-450); RED BLOOD CELL COUNT(AUTO) 2.21 MIL/uL (4.0-5.2); WHITE BLOOD COUNT (AUTO) 20.9 K/uL (4.3-11.0)
--- NOTE | 2021-09-19 07:38 | NUR ---
RN NOTES Serge IQBAL IN PATIENT ROOM W/ RN ASSIGNED. INFORMED MD ABOUT HGB OF 7.0; PER MD, CLARIFY W/ NEPHRO IF OKAY TO GIVE PRBC W/ DIALYSIS OR GIVE SEPARATELY.
[2021-09-19 08:06] LABS: CALCIUM, SERUM 9.4 mg/dL (8.5-10.1); CARBON DIOXIDE 23 mmol/L (21-32); CHLORIDE 94 mmol/L (98-107); CREATININE 1.9 mg/dL (0.6-1.3); GLUCOSE 131 mg/dL (74-106); POTASSIUM 3.7 mmol/L (3.5-5.1); SODIUM SERUM 131 mmol/L (136-145)
[2021-09-19 08:12] LABS: UREA NITROGEN, BLOOD 93 mg/dL (7-18)
[2021-09-19 08:13] VITALS: BP 123/44
[2021-09-19] MEDS: DAKINS QUARTER STRENGTH (0.125%) 480 ML BOTTLE TOP SCH (08:27)
[2021-09-19] MEDS: CHLORHEXIDINE GLUCONATE 15 ML UDC MM SCH ×2 (08:27→16:02)
[2021-09-19] MEDS: DORZOLAMIDE OPTH 2% 10 ML BOTTLE OP SCH ×2 (08:27→16:02)
[2021-09-19] MEDS: CARVEDILOL 12.5 MG TABLET PO SCH ×2 (08:32→21:45)
[2021-09-19] MEDS: PROSOURCE / PROSTAT (PYXIS) 30 ML UDC GT SCH ×2 (08:40→16:03)
[2021-09-19] MEDS: ZINC SULFATE 220 MG CAPSULE GT SCH (08:41)
[2021-09-19] MEDS: PANTOPRAZOLE 40 MG TABLET.DR PO SCH (08:41)
[2021-09-19] MEDS: SEVELAMER CARBONATE 800 MG TABLET PO SCH ×3 (08:41→17:26)
[2021-09-19] MEDS: ASCORBIC ACID 500 MG TABLET GT SCH (08:41)
[2021-09-19] MEDS: METOCLOPRAMIDE HCL 10 MG TABLET PO SCH ×3 (08:41→17:26)
[2021-09-19] MEDS: PHENOBARBITAL 30 MG TABLET PO SCH ×2 (08:41→16:02)
[2021-09-19] MEDS: ARGININE/GLUTAMINE/CALCIUM BMB 1 EACH POWD.PACK GT SCH ×2 (09:17→16:03)
[2021-09-19] MEDS: INSULIN REGULAR, HUMAN 100 UNIT/ML 3 ML VIAL SQ PRN ×2 (11:22→17:49)
--- NOTE | 2021-09-19 11:34 | NUR ---
RN NOTES DTR GARY AT BEDSIDE; INFORMED ABOUT PLAN OF CARE.
[2021-09-19 12:12] VITALS: BP 119/49
[2021-09-19] MEDS: CEFTAZIDIME/AVIBACTAM 0.94 GM in IV NS 0.9% 100 ML IV SCH (15:15)
--- NOTE | 2021-09-19 15:51 | NUR ---
RN NOTES RECEIVED EPOETIN SABINA FROM PHARMACY
[2021-09-19] MEDS: EPOETIN ALFA-EPBX 4,000 UNIT/ML VIAL IV SCH (15:55)
[2021-09-19 16:33] VITALS: BP_SYST 135; BP_SYST 147; BP_DIAS 43; BP_DIAS 64
--- NOTE | 2021-09-19 18:50 | NUR ---
PROTOTYPE MODEL MAKER CLOSING NOTES: PT IN BED, NON VERBAL, OBTUNDED, OPENS EYES TO TACTILE STIMULUS. CONTINUES ON MECHANICAL VENTILATOR W/ SETTINGS TOLERATED, NO S/S OF RESPIRATORY DISTRESS. XIOMARA MIDLINE INTACT AND PATENT. G-TUBE FEEDING OF NEPRO RUNNING AT 40ML/HOUR, FLUSHED DURING SHIFT. HOB ELEVATED AT ALL TIMES AND ASPIRATION PRECS OBSERVED. PROCTOR CATH INTACT, DRAINING YELLOW-COLORED URINE. DRESSING TO WOUND CHANGED TODAY, NOTED TO BE C/D/I, NO BLEEDING/DRAINAGE NOTED. FLEXI-SEAL IN PLACE W/ LIQUID STOOL NOTED. SAFETY MEASURES MAINTAINED: BED LOCKED AND IN LOWEST POSITION, SR UP X2, CALL LIGHT WITHIN REACH. WILL ENDORSE TO MAIL CALLER RN FOR OTIS.
--- NOTE | 2021-09-19 19:31 | NUR ---
MS TELE OPENING NOTES: RECEIVED PATIENT SLEEP IN BED COMFORTABLY, ACCOMPANIED BY FAMILY, BED IN LOW POSITION, CALL LIGHTS WITHIN REACH, NO COMPLAIN OF PAIN AND DISCOMFORT AT THIS TIME, NO FACIAL GRIMACING WAS OBSERVED, PATIENT WITH XIOMARA MIDLINE SL, AND RT PERMACATH, NO BLEEDING WAS OBSERVED, PATIENT ON GTUBE FEEDING NEPHRO AT 40ML PER HOUR INFUSING WELL, ON PROCTOR CATH WITH 50CC URINE OUTPUT, ON FLEXI SEAL, PATENT AND DRY, PATIENT KEPT CLEAN AND DRY, ALL NEEDS MET, WILL CONTINUE TO MONITOR.
[2021-09-19 20:00] VITALS: BP 147/46
[2021-09-19] MEDS: LATANOPROST EYE DROP 0.005% 2.5 ML BOTTLE OP SCH (22:02)
[2021-09-19 23:49] VITALS: BP 137/31
[2021-09-20] MEDS: VANCOMYCIN HCL 125 MG/2.5 ML ORAL.SUSP GT SCH ×4 (00:02→17:55)
--- NOTE | 2021-09-20 00:10 | NUR ---
RN NOTES: BLOOD SUGAR -116; NO INSULIN GIVEN PER SLIDING SCALE
[2021-09-20] MEDS: IPRATROPIUM NEB FS 0.5 MG/2.5 ML AMPUL.NEB IH SCH ×4 (01:57→20:14)
[2021-09-20] MEDS: NEPRO 1,000 ML BOTTLE GT PRN (02:34)
[2021-09-20] MEDS: ACETAMINOPHEN 325 MG TABLET PO PRN ×2 (04:33→16:44)
--- NOTE | 2021-09-20 04:34 | NUR ---
RN NOTES: PRN ACETAMINOPHEN 650MG GIVEN FOR TEMP-100.3 DEGREE, WILL CONTINUE TO MONITOR.
[2021-09-20 04:54] VITALS: BP 141/48
[2021-09-20] MEDS: PIPERACILLIN /TAZOBACTAM 2.25 G in IV D5W 50 ML IV SCH ×3 (05:02→21:03)
[2021-09-20] MEDS: PHENYTOIN SODIUM IV 100 MG/2ML VIAL IV SCH ×3 (05:03→21:03)
[2021-09-20] MEDS: BLOOD SUGAR DIAGNOSTIC 1 EACH STRIP IN SCH ×4 (06:00→18:07)
--- NOTE | 2021-09-20 06:20 | NUR ---
RN NOTES: BS-113 NO INSULIN GIVEN PER SLIDING SCALE
--- NOTE | 2021-09-20 06:39 | NUR ---
RN CLOSING NOTE PATIENT SLEEP IN BED COMFORTABLY, HOB AT 45 DEGREE, NO COMPLAIN OF PAIN AND DISCOMFORT AT THIS TIME, NO FACIAL GRIMACING WAS OBSERVED, NPO ON G TUBE FEEDING OF NEPHRO 40ML/HR INFUSING WELL, PATIENT ON FLEXI SEAL WITH 300CC OUTPUT, , ON PROCTOR CATHETER-100CC OUTPUT, TURNING POSITION Q2H DONE, SACRAL DRESSING CHANGES, DONE, WITH WET TO DRY DRESSING OF DAIKINS SOLUTION, WITH XIOMARA MIDLINE SL, ON TELEMONITORING SR--67, PATIENT KEPT CLEAN AND DRY, ALL NEEDS MET ENDORSE TO INCOMING SHIFT.
--- NOTE | 2021-09-20 07:18 | NUR ---
PHYSICAL PLANT EMPLOYEE OPENING NOTES: RECEIVED PATIENT ON BED. PATIENT IS NON-VERBAL, RESPONSIVE TO PAIN. PATIENT WITH TRACH TO VENT WITH NO SIGNS OF RESPIRATORY DISTRESS. PATIENT DOES NOT HAVE ANY SIGNS OF PAIN OR DISCOMFORT AT THIS TIME. WITH LEFT UPPAR ARM MIDLINE ON SALINE LOCK, PATENT AND INTACT. WITH RIGHT PERMACATH FOR HD ACCESS, WTIH DRESSING DRY AND INTACT. WITH FLEXI SEAL TO BAG, DRAINING WELL. WITH PROCTOR CATHETER TO URINE BAG, WITH LIGHT YELLOW URINE, DRAINING WELL. ON TELE MONITOR, WITH REGULAR SR AT 70-80'S. SAFETY MEASURES ENSURED WITH BED IN LOW AND LOCKED POSITION, SIDERAILS RAISED. CALL LIGHTS WITHIN REACH. WILL CONTINUE TO MONITOR PATIENT.
[2021-09-20] MEDS: PANTOPRAZOLE 40 MG TABLET.DR PO SCH (07:48)
[2021-09-20 08:00] VITALS: BP 145/54
--- NOTE | 2021-09-20 08:00 | NUR ---
HAND TAPPER NOTE SEEN BY DR. IQBAL. WILL CONTINUE TO MONITOR PATIENT.
[2021-09-20] MEDS: SEVELAMER CARBONATE 800 MG TABLET PO SCH ×3 (08:43→17:55)
[2021-09-20] MEDS: METOCLOPRAMIDE HCL 10 MG TABLET PO SCH ×3 (08:44→17:55)
[2021-09-20] MEDS: CARVEDILOL 12.5 MG TABLET PO SCH ×2 (09:49→21:00)
[2021-09-20] MEDS: ARGININE/GLUTAMINE/CALCIUM BMB 1 EACH POWD.PACK GT SCH ×2 (09:49→17:54)
[2021-09-20] MEDS: PROSOURCE / PROSTAT (PYXIS) 30 ML UDC GT SCH ×2 (09:49→17:54)
[2021-09-20] MEDS: DORZOLAMIDE OPTH 2% 10 ML BOTTLE OP SCH ×2 (09:50→18:04)
[2021-09-20] MEDS: ZINC SULFATE 220 MG CAPSULE GT SCH (09:50)
[2021-09-20] MEDS: CHLORHEXIDINE GLUCONATE 15 ML UDC MM SCH ×2 (09:50→16:44)
[2021-09-20] MEDS: ASCORBIC ACID 500 MG TABLET GT SCH (09:50)
[2021-09-20] MEDS: PHENOBARBITAL 30 MG TABLET PO SCH ×2 (09:50→17:54)
[2021-09-20] MEDS: DAKINS QUARTER STRENGTH (0.125%) 480 ML BOTTLE TOP SCH (09:51)
[2021-09-20 12:00] VITALS: BP 115/41
[2021-09-20 16:11] VITALS: BP 113/43
--- NOTE | 2021-09-20 18:54 | NUR ---
MS RN CLOSING NOTE PATIENT ALERT/ ORIENTED X 4. PATIENT ON ROOM AIR, WITH EQUAL AND UNLABORED BREATHING. WITH IV ACCESS ON THE RIGHT HAND G 20, IV ACCESS PATENT AND INTACT. PATIENT ABLE TO VERBALIZE NEEDS. NOT COMPLAINING OF ANY PAIN OR DISCOMFORT AT THIS TIME. PATIENT S/P RIGHT TKA WITH ELASTIC BANDAGE. WITH GOOD CIRCULATION ON THE FOOT. WITH NO MOTOR OR SENSORY DEFICIT NOTED. SAFETY MEASURES ENSURED WITH BED LOCKED, AND AT LOWEST POSITION. SIDE RAILS RAISED. CALL LIGHT WITHIN REACH AT ALL TIMES. WILL ENDORSE PATIETN FOR CONTINUITY OF CARE.
--- NOTE | 2021-09-20 19:33 | NUR ---
PLAN CHECKER OPENING NOTES: RECEIVED PATIENT SLEEP IN BED COMFORTABLY, BED IN LOW POSITION, CALL LIGHTS WITHIN REACH, NO COMPLAIN OF PAIN AND DISCOMFORT AT THIS TIME, ON TELE MONITORING SR-68 NO SYMPTOMS WAS OBSERVED, ON PROCTOR CATHETER, ON FLEXI SEAL CLEAN AND INTACT, NPO, GTUBE FEEDING OF NEPHRO @40ML PER HOUR INFUSING WELL , WITH IV LINE AT XIOMARA MIDLINE SL, WITH RIGHT PERMA CATHETER FOR DIALYSIS, CLEAN AND DRY, PATIENT KEPT CLEAN AND DRY, WILL CONTINUE TO MONITOR.
[2021-09-20 20:00] VITALS: BP 143/50
[2021-09-20 20:54] LABS: BASOPHILS # (AUTO) 0.1 K/uL (0.0-0.2); BASOPHILS % (AUTO) 0.5 % (0.0-2.0); HEMATOCRIT 25 % (33-45); HEMOGLOBIN 7.6 g/dL (11.5-14.8); LYMPHOCYTES # (AUTO) 1.5 K/uL (0.8-4.8); LYMPHOCYTES % (AUTO) 9.1 % (20.0-44.0); MEAN CORPUSCULAR HGB CONC 31 g/dl (31.0-36.0); MEAN CORPUSCULAR VOLUME 99 fL (82-100); MONOCYTES # (AUTO) 1.5 K/uL (0.1-1.30); MONOCYTES % (AUTO) 8.9 % (2.0-12.0); NEUTROPHILS # (AUTO) 12.9 K/uL (1.8-8.9); NEUTROPHILS % (AUTO) 77.5 % (43.0-81.0); PLATELET COUNT (AUTO) 471 K/uL (150-450); RED BLOOD CELL COUNT(AUTO) 2.49 MIL/uL (4.0-5.2); WHITE BLOOD COUNT (AUTO) 16.7 K/uL (4.3-11.0)
[2021-09-20 21:13] LABS: CALCIUM, SERUM 9.7 mg/dL (8.5-10.1); CARBON DIOXIDE 23 mmol/L (21-32); CHLORIDE 94 mmol/L (98-107); CREATININE 2.6 mg/dL (0.6-1.3); GLUCOSE 120 mg/dL (74-106); POTASSIUM 4.9 mmol/L (3.5-5.1); SODIUM SERUM 132 mmol/L (136-145)
[2021-09-20 21:17] LABS: UREA NITROGEN, BLOOD 135 mg/dL (7-18)
--- NOTE | 2021-09-20 21:50 | NUR ---
RN NOTES: RECEIVED A CALL FROM LAB( [facility]) ABOUT PT CRITICAL LAB RESULT FOR BUN-135, PREVIOUS RESULT AT 09/19 WAS 93, PATIENT WAS A ON HEMODIALYSIS SCHEDULE , DR MUKHERJEE WAS MADE AWARE
[2021-09-20 22:13] VITALS: BP 143/50
[2021-09-20] MEDS: LATANOPROST EYE DROP 0.005% 2.5 ML BOTTLE OP SCH (22:15)
--- NOTE | 2021-09-20 22:16 | NUR ---
RN NOTES: BLOOD PRESSURE 143/50 P-74 DAUGHTER REFUSE TO GIVE HER BLOOD PRESSURE MEDICATION. DUE TO SCHEDULE DIALYSIS TOMORROW IN AM IN AM PATIENT HAS HX OF LOW BLOOD PRESSURE DURING DIALYSIS PERIOD.
[2021-09-21] VITALS: BP 111/58
[2021-09-21] MEDS: VANCOMYCIN HCL 125 MG/2.5 ML ORAL.SUSP GT SCH ×4 (00:09→18:40)
--- NOTE | 2021-09-21 00:22 | NUR ---
RN NOTES: 0000 BLOOD SUGAR -12- NO INSULIN GIVEN OUT OF PARAMETERS PER SLIDING SCALE.
[2021-09-21] MEDS: IPRATROPIUM NEB FS 0.5 MG/2.5 ML AMPUL.NEB IH SCH ×4 (01:39→19:48)
[2021-09-21 04:00] VITALS: BP 118/60
[2021-09-21] MEDS: PIPERACILLIN /TAZOBACTAM 2.25 G in IV D5W 50 ML IV SCH ×3 (04:46→21:41)
[2021-09-21] MEDS: BLOOD SUGAR DIAGNOSTIC 1 EACH STRIP IN SCH ×4 (06:00→18:40)
[2021-09-21] MEDS: PHENYTOIN SODIUM IV 100 MG/2ML VIAL IV SCH ×3 (06:28→21:37)
--- NOTE | 2021-09-21 07:02 | NUR ---
RN NOTES: 0600 BLOOD SUGAR-118 NO INSULIN GIVEN PATIENT ON DIALYSIS SCHEDULE
[2021-09-21 07:09] LABS: BASOPHILS # (AUTO) 0.1 K/uL (0.0-0.2); BASOPHILS % (AUTO) 0.4 % (0.0-2.0); HEMATOCRIT 22 % (33-45); HEMOGLOBIN 7.2 g/dL (11.5-14.8); LYMPHOCYTES # (AUTO) 1.9 K/uL (0.8-4.8); LYMPHOCYTES % (AUTO) 10.3 % (20.0-44.0); MEAN CORPUSCULAR HGB CONC 32 g/dl (31.0-36.0); MEAN CORPUSCULAR VOLUME 97 fL (82-100); MONOCYTES # (AUTO) 1.4 K/uL (0.1-1.30); MONOCYTES % (AUTO) 7.6 % (2.0-12.0); NEUTROPHILS # (AUTO) 14.4 K/uL (1.8-8.9); NEUTROPHILS % (AUTO) 77.7 % (43.0-81.0); PLATELET COUNT (AUTO) 499 K/uL (150-450); WHITE BLOOD COUNT (AUTO) 18.5 K/uL (4.3-11.0)
[2021-09-21 07:26] LABS: CALCIUM, SERUM 10.3 mg/dL (8.5-10.1); CARBON DIOXIDE 23 mmol/L (21-32); CHLORIDE 91 mmol/L (98-107); CREATININE 2.7 mg/dL (0.6-1.3); GLUCOSE 120 mg/dL (74-106); POTASSIUM 4.2 mmol/L (3.5-5.1); SODIUM SERUM 131 mmol/L (136-145)
--- NOTE | 2021-09-21 07:28 | NUR ---
SCALE ADJUSTER CLOSING NOTE: PATIENT SLEEP IN BED COMFORTABLY, BED IN LOW POSITON, CALL LIGHTS WITHIN REACH, NO COMPLAIN OF PAIN AND DISCOMFORT AT THIS TIME, NO FACIAL GRIMACING WAS OBSERVED, PATIENT IS NONE VERBAL OBTUNDED, NPO ON G TUBE FEEDING OF NEPHRO AT 40ML PER HOUR INFUSING WELL, ON FLEXISEAL WITH 200 OUTPUT, ON PROCTOR CATHETER, PATENT AND DRAIN, PATIENTS SACRAL WOUND CLEANED, DRESSING CHANGE, KEPT, ON MECH VENT SATURATING WELL, ON TELE MONITORING AT SR-67 NO SYMPTOMS WAS OBSERVED, WITH XIOMARA MIDLINE, RIGHT PERMA CATH CLEAN AO BLEEDING ON THE SITE WAS OBSERVED, PATIENT KEPT CLEAN AND DRY, ALL NEEDS MET, ENDORSE TO INCOMING SHIFT.
[2021-09-21 07:31] LABS: UREA NITROGEN, BLOOD 142 mg/dL (7-18)
--- NOTE | 2021-09-21 07:36 | NUR ---
RN OPENING NOTE PT NONVERBAL. ON VENT TRACH, SETTING CHECKED. FLEXISEAL PRESENT. F/C PRESENT. ON BEDREST. SACRAL WOUND PRESENT AND WOUND CARE ORDERED. G TUBE PRESENT WITH NEPHRO RUNNING AT 40 ML/HR. IV PRESENT ON XIOMARA MIDLINE AND SALINE LOCKED. LABS AND ORDERS REVIEWED. SAFETY MEASURES IN PLACE. SIDE RAILS RAISED. BED LOWERED. CALL LIGHT WITHIN REACH. WILL CONTINUE TO MONITOR.
[2021-09-21 08:00] VITALS: BP 137/55
[2021-09-21] MEDS: CHLORHEXIDINE GLUCONATE 15 ML UDC MM SCH ×2 (08:19→17:00)
[2021-09-21] MEDS: SEVELAMER CARBONATE 800 MG TABLET PO SCH ×3 (08:19→18:40)
[2021-09-21] MEDS: ZINC SULFATE 220 MG CAPSULE GT SCH (08:20)
[2021-09-21] MEDS: PANTOPRAZOLE 40 MG TABLET.DR PO SCH (08:20)
[2021-09-21] MEDS: PHENOBARBITAL 30 MG TABLET PO SCH ×2 (08:20→18:40)
[2021-09-21] MEDS: METOCLOPRAMIDE HCL 10 MG TABLET PO SCH ×3 (08:20→18:40)
[2021-09-21] MEDS: ASCORBIC ACID 500 MG TABLET GT SCH (08:20)
[2021-09-21] MEDS: DAKINS QUARTER STRENGTH (0.125%) 480 ML BOTTLE TOP SCH (08:21)
[2021-09-21] MEDS: CARVEDILOL 12.5 MG TABLET PO SCH ×3 (08:21→21:37)
[2021-09-21] MEDS: PROSOURCE / PROSTAT (PYXIS) 30 ML UDC GT SCH ×2 (08:31→18:40)
[2021-09-21] MEDS: DORZOLAMIDE OPTH 2% 10 ML BOTTLE OP SCH ×2 (09:00→17:00)
[2021-09-21] MEDS: ARGININE/GLUTAMINE/CALCIUM BMB 1 EACH POWD.PACK GT SCH ×2 (09:00→18:39)
[2021-09-21 10:01] LABS: BAND % (MANUAL) 6 % (0.0-5.0); LYMPHOCYTES % (MANUAL) 10 % (16-48); METAMYELOCYTES % 1 % (0-0); MONOCYTES % (MANUAL) 4 % (0-11.0); MYELOCYTES % 1 % (0-0); NEUTROPHILS % (MANUAL) 78 (42-76)
[2021-09-21] MEDS: TOBRAMYCIN 80 MG in IV D5W 50 ML IV PRN (13:46)
[2021-09-21] MEDS ORDERED: EPOETIN ALFA-EPBX 10,000 UNIT/ML VIAL IV ONE (15:00)
[2021-09-21] MEDS: CEFTAZIDIME/AVIBACTAM 0.94 GM in IV NS 0.9% 100 ML IV SCH (15:37)
[2021-09-21 16:12] VITALS: BP 138/58
--- NOTE | 2021-09-21 18:56 | NUR ---
RN CLOSING NOTE PT NONVERBAL. ON VENT TRACH, SETTING CHECKED. FLEXISEAL PRESENT. F/C PRESENT. ON BEDREST. SACRAL WOUND PRESENT AND WOUND CARE ORDERED. G TUBE PRESENT WITH NEPHRO RUNNING AT 40 ML/HR. IV PRESENT ON XIOMARA MIDLINE AND SALINE LOCKED. LABS AND ORDERS REVIEWED. SAFETY MEASURES IN PLACE. SIDE RAILS RAISED. BED LOWERED. CALL LIGHT WITHIN REACH. WILL GIVE REPORT TO NIGHT NURSE FOR OTIS
--- NOTE | 2021-09-21 19:21 | NUR ---
INSTRUMENT CHECKER OPENING NOTES: PATIENT ON BED, NON VERBAL, EYES CLOSED, RESPONSIVE TO TACTILE STIMULI. ON MECHANICAL VENTILATOR WITH THE FOLLOWING SETTINGS: PORTEX 7, AC 14, TV 500, FIO2 30%, PEEEP 5. NO S/S OF DISTRESS NOTED. ON TELE MONITOR WITH NSR .XIOMARA MIDLINE INTACT AND PATENT. WITH G-TUBE INTACT AND PATENT, GT FEEDING NEPRO RUNNING AT 40ML/HOUR. HOB ELEVATED AT ALL TIMES. SAFETY MEASURES IN PLACE, BED IN LOWEST AND LOCKED POSITION. SR UP X2. HEELS OFFLOADED. WILL CONTINUE TO MONITOR. Addendum: 09/21/21 at 1923 by AURY MORSE RN PT WITH PROCTOR CATH AND FLEXISEAL INTACT WITH OUTPUT.
[2021-09-21 20:00] VITALS: BP 132/44
[2021-09-21] MEDS: ACETAMINOPHEN 325 MG TABLET PO PRN (21:38)
[2021-09-21] MEDS: LATANOPROST EYE DROP 0.005% 2.5 ML BOTTLE OP SCH (22:31)
[2021-09-22] VITALS: BP 112/42
[2021-09-22] MEDS: VANCOMYCIN HCL 125 MG/2.5 ML ORAL.SUSP GT SCH ×5 (00:20→23:15)
[2021-09-22] MEDS: BLOOD SUGAR DIAGNOSTIC 1 EACH STRIP IN SCH ×2 (00:20→05:30)
[2021-09-22] MEDS: IPRATROPIUM NEB FS 0.5 MG/2.5 ML AMPUL.NEB IH SCH ×4 (01:42→20:10)
[2021-09-22 04:00] VITALS: BP 106/44
[2021-09-22] MEDS: PIPERACILLIN /TAZOBACTAM 2.25 G in IV D5W 50 ML IV SCH ×3 (04:35→21:01)
[2021-09-22] MEDS: PHENYTOIN SODIUM IV 100 MG/2ML VIAL IV SCH ×3 (04:35→21:01)
[2021-09-22 06:22] LABS: BASOPHILS # (AUTO) 0.1 K/uL (0.0-0.2); BASOPHILS % (AUTO) 0.4 % (0.0-2.0); EOSINOPHILS % (AUTO) 3.2 % (0.0-6.0); HEMATOCRIT 25 % (33-45); HEMOGLOBIN 7.7 g/dL (11.5-14.8); LYMPHOCYTES # (AUTO) 1.5 K/uL (0.8-4.8); LYMPHOCYTES % (AUTO) 10.2 % (20.0-44.0); MEAN CORPUSCULAR HGB CONC 32 g/dl (31.0-36.0); MEAN CORPUSCULAR VOLUME 99 fL (82-100); MONOCYTES # (AUTO) 1.4 K/uL (0.1-1.30); MONOCYTES % (AUTO) 9.1 % (2.0-12.0); NEUTROPHILS # (AUTO) 11.7 K/uL (1.8-8.9); NEUTROPHILS % (AUTO) 77.1 % (43.0-81.0); PLATELET COUNT (AUTO) 453 K/uL (150-450); RED BLOOD CELL COUNT(AUTO) 2.47 MIL/uL (4.0-5.2); WHITE BLOOD COUNT (AUTO) 15.1 K/uL (4.3-11.0)
--- NOTE | 2021-09-22 06:33 | NUR ---
BEADING SAWYER OPENING NOTES: PATIENT ON BED, NON VERBAL, EYES CLOSED, RESPONSIVE TO TACTILE STIMULI. ON MECHANICAL VENTILATOR WITH THE FOLLOWING SETTINGS: PORTEX 7, AC 14, TV 500, FIO2 30%, PEEEP 5. NO S/S OF DISTRESS NOTED. ON TELE MONITOR WITH NSR .XIOMARA MIDLINE INTACT AND PATENT. WITH G-TUBE INTACT AND PATENT, GT FEEDING NEPRO RUNNING AT 40ML/HOUR. HOB ELEVATED AT ALL TIMES. PT WITH F/C NO OUTPUT NOTED PT ON DYALYSIS. PT WITH FLEXISEAL DRAINING STOOL. SAFETY MEASURES IN PLACE, BED IN LOWEST AND LOCKED POSITION. SR UP X2. HEELS OFFLOADED. WILL ENDORSE CARE TO DAY SHIFT NURSE.
[2021-09-22 06:53] LABS: CALCIUM, SERUM 10.1 mg/dL (8.5-10.1); CARBON DIOXIDE 21 mmol/L (21-32); CHLORIDE 95 mmol/L (98-107); CREATININE 1.9 mg/dL (0.6-1.3); GLUCOSE 118 mg/dL (74-106); POTASSIUM 3.9 mmol/L (3.5-5.1); SODIUM SERUM 132 mmol/L (136-145)
[2021-09-22 06:55] LABS: UREA NITROGEN, BLOOD 88 mg/dL (7-18)
[2021-09-22 08:00] VITALS: BP 121/44
[2021-09-22] MEDS: DORZOLAMIDE OPTH 2% 10 ML BOTTLE OP SCH ×2 (08:05→17:00)
[2021-09-22] MEDS: ARGININE/GLUTAMINE/CALCIUM BMB 1 EACH POWD.PACK GT SCH ×2 (08:05→17:42)
[2021-09-22] MEDS: PROSOURCE / PROSTAT (PYXIS) 30 ML UDC GT SCH ×2 (08:05→17:42)
[2021-09-22] MEDS: SEVELAMER CARBONATE 800 MG TABLET PO SCH ×3 (08:05→17:42)
[2021-09-22] MEDS: ASCORBIC ACID 500 MG TABLET GT SCH (08:05)
[2021-09-22] MEDS: PANTOPRAZOLE 40 MG TABLET.DR PO SCH (08:05)
[2021-09-22] MEDS: CHLORHEXIDINE GLUCONATE 15 ML UDC MM SCH ×2 (08:05→17:00)
[2021-09-22] MEDS: METOCLOPRAMIDE HCL 10 MG TABLET PO SCH ×3 (08:05→17:42)
[2021-09-22] MEDS: CARVEDILOL 12.5 MG TABLET PO SCH ×2 (08:05→21:00)
[2021-09-22] MEDS: PHENOBARBITAL 30 MG TABLET PO SCH ×2 (08:05→17:42)
[2021-09-22] MEDS: DAKINS QUARTER STRENGTH (0.125%) 480 ML BOTTLE TOP SCH (08:06)
[2021-09-22] MEDS: ZINC SULFATE 220 MG CAPSULE GT SCH (08:07)
--- NOTE | 2021-09-22 08:33 | NUR ---
WOUND CARE CONSULT: PT SEEN FOR ABDOMINAL FOLD RASH. RECOMMENDATIONS MADE AND DISCUSSED WITH NURSING STAFF. PT IS ON NETCONG ISOFLEX LOW AIRLOSS BED. MD IN AGREEMENT WITH PLAN OF CARE.
[2021-09-22] MEDS: NYSTATIN TOP POWDER 15 GM BOTTLE TP SCH ×2 (09:54→17:59)
[2021-09-22 10:22] LABS: BAND % (MANUAL) 1 % (0.0-5.0); EOSINOPHILS % (MANUAL) 6 % (0-4); LYMPHOCYTES % (MANUAL) 8 % (16-48); METAMYELOCYTES % 1 % (0-0); MONOCYTES % (MANUAL) 7 % (0-11.0); MYELOCYTES % 3 % (0-0); NEUTROPHILS % (MANUAL) 74 (42-76)
[2021-09-22 12:00] VITALS: BP 112/45
[2021-09-22] MEDS: EPOETIN ALFA-EPBX 4,000 UNIT/ML VIAL IV SCH (15:32)
[2021-09-22 16:00] VITALS: BP 121/51
--- NOTE | 2021-09-22 19:41 | NUR ---
CARE PROCESS MANAGER OPENING NOTES PT NONVERBAL. ON VENT TRACH, SETTING CHECKED. FLEXISEAL PRESENT. F/C PRESENT. ON BEDREST. G TUBE PRESENT WITH NEPHRO RUNNING AT 40 ML/HR. IV PRESENT ON XIOMARA MIDLINE AND SALINE LOCKED. SAFETY MEASURES IN PLACE. SIDE RAILS RAISED. BED LOWERED. CALL LIGHT WITHIN REACH. WILL CONTINUE TO MONITOR.
[2021-09-22 20:00] VITALS: BP 118/50
--- NOTE | 2021-09-22 21:02 | NUR ---
MANAGER STORE NOTES FAMILY IS REFUSING BP MEDS DUE TO PREVIOUS LOW BP AND SCHEDULED DIALYSIS TOMORROW RISK AND BENEFITS EXPLAINED X 3 REFUSED X3 WILL CONTINUE TO MONITOR.
[2021-09-22] MEDS: LATANOPROST EYE DROP 0.005% 2.5 ML BOTTLE OP SCH (21:06)
[2021-09-23] VITALS: BP 136/48
[2021-09-23] MEDS: ACETAMINOPHEN 325 MG TABLET PO PRN ×2 (01:54→16:28)
[2021-09-23] MEDS: IPRATROPIUM NEB FS 0.5 MG/2.5 ML AMPUL.NEB IH SCH ×4 (02:14→19:28)
[2021-09-23] MEDS: PHENYTOIN SODIUM IV 100 MG/2ML VIAL IV SCH ×3 (04:39→21:46)
[2021-09-23] MEDS: PIPERACILLIN /TAZOBACTAM 2.25 G in IV D5W 50 ML IV SCH ×3 (04:39→21:47)
[2021-09-23] MEDS: VANCOMYCIN HCL 125 MG/2.5 ML ORAL.SUSP GT SCH ×4 (05:57→23:56)
[2021-09-23 06:31] VITALS: BP 141/55
--- NOTE | 2021-09-23 06:43 | NUR ---
ARMOURED CAR ESCORT CLOSING NOTES PT NONVERBAL. ON VENT TRACH, SETTING CHECKED. FLEXISEAL PRESENT. F/C PRESENT. ON BEDREST. G TUBE PRESENT WITH NEPHRO RUNNING AT 40 ML/HR. IV PRESENT ON XIOMARA MIDLINE AND SALINE LOCKED. SAFETY MEASURES IN PLACE. SIDE RAILS RAISED. BED LOWERED. CALL LIGHT WITHIN REACH. WILL ENDORSE CARE TO DAY SHIFT NURSE.
--- NOTE | 2021-09-23 07:30 | NUR ---
ACOUSTICAL TILE CARPENTERS SUPERVISOR OPENING NOTES RECEIVED PATIENT IN BED WITH CLOSED EYES. OPENS EYES UPON TACTILE STIMULI. PT NONVERBAL. ON VENT TRACH, SETTING CHECKED. FLEXISEAL PRESENT. PROCTOR CATHETER PRESENT. ON BEDREST. G TUBE PRESENT WITH NEPHRO RUNNING AT 40 ML/HR. IV PRESENT ON XIOMARA MIDLINE AND SALINE LOCKED. SAFETY MEASURES IN PLACE. HEAD OF THE BED ELEVATED ALL THE TIMES FOR ASPIRATION PRECAUTION.SIDE RAILS RAISED. BED LOWERED. CALL LIGHT WITHIN REACH. WILL CONTINUE TO MONITOR.
[2021-09-23 08:00] VITALS: BP 146/54
[2021-09-23] MEDS: PANTOPRAZOLE 40 MG TABLET.DR PO SCH (08:00)
[2021-09-23] MEDS: SEVELAMER CARBONATE 800 MG TABLET PO SCH ×3 (08:01→18:14)
[2021-09-23] MEDS: METOCLOPRAMIDE HCL 10 MG TABLET PO SCH ×3 (08:01→17:24)
[2021-09-23] MEDS: ARGININE/GLUTAMINE/CALCIUM BMB 1 EACH POWD.PACK GT SCH ×2 (08:21→17:23)
[2021-09-23] MEDS: CHLORHEXIDINE GLUCONATE 15 ML UDC MM SCH ×2 (08:21→17:23)
[2021-09-23] MEDS: PROSOURCE / PROSTAT (PYXIS) 30 ML UDC GT SCH ×2 (08:21→17:23)
[2021-09-23] MEDS: ASCORBIC ACID 500 MG TABLET GT SCH (08:21)
[2021-09-23] MEDS: DAKINS QUARTER STRENGTH (0.125%) 480 ML BOTTLE TOP SCH (08:22)
[2021-09-23] MEDS: PHENOBARBITAL 30 MG TABLET PO SCH ×2 (08:22→17:24)
[2021-09-23] MEDS: DORZOLAMIDE OPTH 2% 10 ML BOTTLE OP SCH ×2 (08:23→17:23)
[2021-09-23] MEDS: NYSTATIN TOP POWDER 15 GM BOTTLE TP SCH ×2 (08:24→17:25)
[2021-09-23] MEDS: ZINC SULFATE 220 MG CAPSULE GT SCH (08:26)
[2021-09-23] MEDS: CARVEDILOL 12.5 MG TABLET PO SCH ×2 (09:00→21:46)
[2021-09-23 12:00] VITALS: BP 107/47
[2021-09-23] MEDS: CEFTAZIDIME/AVIBACTAM 0.94 GM in IV NS 0.9% 100 ML IV SCH (15:49)
[2021-09-23 16:00] VITALS: BP 113/49
--- NOTE | 2021-09-23 19:26 | NUR ---
ADVISOR TO COMMAND IN COMBAT CLOSING NOTES PATIENT IN BED WITH CLOSED EYES. OPENS EYES UPON TACTILE STIMULI. PT NONVERBAL. ON VENT TRACH, SETTING CHECKED. FLEXISEAL PRESENT. PROCTOR CATHETER PRESENT. ON BEDREST. G TUBE PRESENT WITH NEPHRO RUNNING AT 40 ML/HR. IV PRESENT ON XIOMARA MIDLINE AND SALINE LOCKED.ALL DUE MEDS AND TREATMENTS GIVEN ORDERED. SAFETY MEASURES IN PLACE. HEAD OF THE BED ELEVATED ALL THE TIMES FOR ASPIRATION PRECAUTION.SIDE RAILS RAISED. BED LOWERED. CALL LIGHT WITHIN REACH. WILL ENDORSE INCOMING SHIFT FOR OTIS..
--- NOTE | 2021-09-23 19:30 | NUR ---
SIGNALS COLLECTION TECHNICIAN NOTES SR-76 ON TELE MONITOR,ON BED,NO VERBAL,OPEN EYES,ON TRACH TO VENT,SETTINGS TOLERATED WELL,WITH LEFT UPPER ARM MIDLINE FOR MEDS,NEPRO FEEDING IN PROGRESS AT 40ML/HR RATE,NO RESIDUAL VOLUME NOTED,HOB ELEVATED FOR ASPIRATION PRECAUTION.FLEXISEAL IN PLACE DRAINING LIQUID STOOL,PROCTOR CATH IN PLACE DRAINING YELLOWISH SCANTY URINE OUTPUT,ON DIALYSIS.ISOLATION PRECAUTION FOR C-DIFF POSITIVE.ON SPECIALTY MATTRESS,DRESSING TO RIGHT HAND INTACT AND DRY.SACRAL WOUND DRESSING INTACT AND DRY.WILL CONTINUE TO MONITOR STATUS.DAUGHTER AT BEDSIDE.
[2021-09-23 20:00] VITALS: BP_SYST 148; BP_DIAS 57; BP_DIAS 60
[2021-09-23] MEDS: LATANOPROST EYE DROP 0.005% 2.5 ML BOTTLE OP SCH (22:38)
[2021-09-24] VITALS (8 sets, daily range): BP systolic 100–147; BP diastolic 42–72
--- NOTE | 2021-09-24 01:00 | NUR ---
FLAVORING MACHINE OPERATOR NOTES BODY TEMPERATURE OF 100.8,TYLENOL 650MG GIVEN PER GT FOR INCREASED TEMPERATURE,COOLING MEASURES STARTED.
[2021-09-24] MEDS: IPRATROPIUM NEB FS 0.5 MG/2.5 ML AMPUL.NEB IH SCH ×4 (01:22→20:25)
[2021-09-24] MEDS: ACETAMINOPHEN 325 MG TABLET PO PRN ×3 (01:40→23:05)
[2021-09-24] MEDS: NEPRO 1,000 ML BOTTLE GT PRN (01:46)
[2021-09-24] MEDS: PIPERACILLIN /TAZOBACTAM 2.25 G in IV D5W 50 ML IV SCH ×3 (04:53→22:13)
[2021-09-24] MEDS: PHENYTOIN SODIUM IV 100 MG/2ML VIAL IV SCH ×3 (04:58→22:12)
--- NOTE | 2021-09-24 05:07 | NUR ---
BAG MACHINE OPERATOR NOTES MIDLINE DRESSING CHANGE DONE
[2021-09-24] MEDS: VANCOMYCIN HCL 125 MG/2.5 ML ORAL.SUSP GT SCH ×4 (05:26→23:06)
--- NOTE | 2021-09-24 06:27 | NUR ---
RECYCLABLE MATERIALS DISTRIBUTOR NOTES NO SIGNIFICANT CHANGE IN STATUS.LATEST TEMP 98.6,FOR DISCHARGE PLANNING,AWAITING FOR [id number].
--- NOTE | 2021-09-24 07:30 | NUR ---
SHADE HANGER OPENING NOTES RECEIVED PATIENT IN BED WITH CLOSED EYES. OPENS EYES UPON TACTILE STIMULI. PT NONVERBAL. ON VENT TRACH, SETTING CHECKED. FLEXISEAL PRESENT. PROCTOR CATHETER PRESENT. ON BEDREST. G TUBE PRESENT WITH NEPHRO RUNNING AT 40 ML/HR. IV PRESENT ON XIOMARA MIDLINE AND SALINE LOCKED. SAFETY MEASURES IN PLACE. HEAD OF THE BED ELEVATED ALL THE TIMES FOR ASPIRATION PRECAUTION.SIDE RAILS RAISED. BED LOWERED. CALL LIGHT WITHIN REACH. WILL CONTINUE TO MONITOR
[2021-09-24] MEDS: SEVELAMER CARBONATE 800 MG TABLET PO SCH ×3 (08:14→17:12)
[2021-09-24] MEDS: PANTOPRAZOLE 40 MG TABLET.DR PO SCH (08:14)
[2021-09-24] MEDS: ZINC SULFATE 220 MG CAPSULE GT SCH (08:34)
[2021-09-24] MEDS: ASCORBIC ACID 500 MG TABLET GT SCH (08:34)
[2021-09-24] MEDS: METOCLOPRAMIDE HCL 10 MG TABLET PO SCH ×3 (08:34→17:12)
[2021-09-24] MEDS: DAKINS QUARTER STRENGTH (0.125%) 480 ML BOTTLE TOP SCH (08:35)
[2021-09-24] MEDS: PHENOBARBITAL 30 MG TABLET PO SCH ×2 (08:35→17:12)
[2021-09-24] MEDS: CHLORHEXIDINE GLUCONATE 15 ML UDC MM SCH ×2 (08:35→17:12)
[2021-09-24] MEDS: NYSTATIN TOP POWDER 15 GM BOTTLE TP SCH ×2 (08:36→17:15)
[2021-09-24] MEDS: ARGININE/GLUTAMINE/CALCIUM BMB 1 EACH POWD.PACK GT SCH ×2 (08:37→17:12)
[2021-09-24] MEDS: DORZOLAMIDE OPTH 2% 10 ML BOTTLE OP SCH ×2 (08:37→17:15)
[2021-09-24] MEDS: PROSOURCE / PROSTAT (PYXIS) 30 ML UDC GT SCH ×2 (08:37→17:13)
[2021-09-24] MEDS: CARVEDILOL 12.5 MG TABLET PO SCH ×2 (09:00→21:00)
[2021-09-24] MEDS: MIDODRINE HCL (5MG) 5 MG TABLET PO PRN (17:39)
--- NOTE | 2021-09-24 19:30 | NUR ---
RN CLOSING NOTES PATIENT IN BED WITH CLOSED EYES. OPENS EYES UPON TACTILE STIMULI. PT NONVERBAL. ON VENT TRACH, SETTING CHECKED. FLEXISEAL PRESENT. PROCTOR CATHETER PRESENT. ON BEDREST. G TUBE PRESENT WITH NEPHRO RUNNING AT 40 ML/HR. IV PRESENT ON XIOMARA MIDLINE AND SALINE LOCKED. SAFETY MEASURES IN PLACE. HEAD OF THE BED ELEVATED ALL THE TIMES FOR ASPIRATION PRECAUTION.ALL DUE MEDS AND TREATMENTS GIVEN ORDERED.SIDE RAILS RAISED. BED LOWERED. CALL LIGHT WITHIN REACH. WILL ENDORSE INCOMING SHIFT FOR OTIS.
--- NOTE | 2021-09-24 19:30 | NUR ---
workers' compensation claims supervisor opening notes Received Pt from morning nurse. Pt is resting in bed comfortably accompanied by her daughter. Pt is non verbal and able to open eyes. Pt is on vent trach with O2 sat is 100%. No SOB. No S/S of distress noted. XIOMARA midline is clean and intact. RCW permacath is clean and intact. Gtube feeding is running nephro 40 ml/hr with 0 residual. Pt tolerated well. Herring is intact and draining yellow urine. Flexiseal is intact. Tele monitor showed SR. Safety precautions is maintained. Bed at low position, brakes locked, side rails upX3, bed alarm is on and call light is within reach. Will continue to monitor.
--- NOTE | 2021-09-24 21:00 | NUR ---
RN notes Rechecked Pt's BP. BP 137/52 and pulse 82. Pt's daughter refuses BP meds. Pt's daughter sated " No BP meds tonight because it will drop in the morning!" Explained risks and benefits. Pt kep refusing. Will continue to monitor. Charge nurse is aware and informed.
--- NOTE | 2021-09-24 21:45 | NUR ---
RN notes Pt daughter Charlotte refused BP meds for PT despite explanation risks and benefits. BP 137/52. pulse 82. charge nurse is aware and informed.
[2021-09-24] MEDS: LATANOPROST EYE DROP 0.005% 2.5 ML BOTTLE OP SCH (22:18)
[2021-09-25] VITALS: BP 111/42
[2021-09-25] MEDS: IPRATROPIUM NEB FS 0.5 MG/2.5 ML AMPUL.NEB IH SCH ×4 (01:13→19:22)
[2021-09-25 04:00] VITALS: BP 121/49
[2021-09-25] MEDS: PIPERACILLIN /TAZOBACTAM 2.25 G in IV D5W 50 ML IV SCH ×3 (05:12→21:20)
[2021-09-25] MEDS: PHENYTOIN SODIUM IV 100 MG/2ML VIAL IV SCH ×3 (05:13→20:24)
[2021-09-25] MEDS: VANCOMYCIN HCL 125 MG/2.5 ML ORAL.SUSP GT SCH ×3 (05:14→17:03)
[2021-09-25] MEDS: NEPRO 1,000 ML BOTTLE GT PRN (05:33)
--- NOTE | 2021-09-25 06:40 | NUR ---
last model department supervisor closing notes Pt is resting in bed comfortably. Pt is non verbal and able to open eyes. Pt is on vent trach with O2 sat is 100%. No SOB. No S/S of distress noted. Routine meds were given as ordered. XIOMARA midline is clean and intact. RCW permacath is clean and intact. Gtube feeding is running nephro 40 ml/hr with 0 residual. VS is stable. Afebrile. Herring is intact and draining yellow urine. Flexiseal is intact. Tele monitor showed SR hr at 72. Wound care provided as ordered. Safety precautions is maintained. Bed at low position, brakes locked, side rails upX3, bed alarm is on and call light is within reach. Will endorse to am nurse for OTIS.
--- NOTE | 2021-09-25 07:32 | NUR ---
ENERGY INFRASTRUCTURE ENGINEER OPENING NOTES RECEIVED PT IN BED, EYES CLOSED, OBTUNDED, NONVERBAL. PT ON TRACH/VENT AND TOLERATING WELL. BREATHING EVENLY AND NONLABORED IV SITE: XIOMARA MIDLINE INTACT/PATENT/FLUSHES WELL. PERMA-CATH ON R-CHEST WALL INTACT WITH DRESSING C/D/I. ON GTF NEPRO @40ML/HR. WITH F/C AND FLEXI-SEAL IN PLACE AND FUNCTIONING WELL. ON TELE MONITOR READING SR, HR 73. SAFETY MEASURES IN PLACE, BED IN LOWEST LOCKED POSITION, S/R UPX2, CALL LIGHT WITHIN REACH. WILL CONT TO MONITOR.
[2021-09-25 08:00] VITALS: BP 102/29
[2021-09-25] MEDS: CARVEDILOL 12.5 MG TABLET PO SCH ×2 (08:09→20:24)
[2021-09-25] MEDS: MIDODRINE HCL (5MG) 5 MG TABLET PO PRN (08:44)
[2021-09-25] MEDS: PANTOPRAZOLE 40 MG TABLET.DR PO SCH (08:44)
[2021-09-25] MEDS: PHENOBARBITAL 30 MG TABLET PO SCH ×2 (08:44→17:03)
[2021-09-25] MEDS: SEVELAMER CARBONATE 800 MG TABLET PO SCH ×3 (08:44→17:03)
[2021-09-25] MEDS: ASCORBIC ACID 500 MG TABLET GT SCH (08:44)
[2021-09-25] MEDS: PROSOURCE / PROSTAT (PYXIS) 30 ML UDC GT SCH ×2 (08:44→17:00)
[2021-09-25] MEDS: METOCLOPRAMIDE HCL 10 MG TABLET PO SCH ×3 (08:44→17:03)
[2021-09-25] MEDS: CHLORHEXIDINE GLUCONATE 15 ML UDC MM SCH ×2 (08:44→17:03)
[2021-09-25] MEDS: ARGININE/GLUTAMINE/CALCIUM BMB 1 EACH POWD.PACK GT SCH ×2 (08:45→16:54)
[2021-09-25 08:53] LABS: HEMOGLOBIN 8.3 g/dL (11.5-14.8)
[2021-09-25] MEDS: DAKINS QUARTER STRENGTH (0.125%) 480 ML BOTTLE TOP SCH (08:53)
[2021-09-25] MEDS: NYSTATIN TOP POWDER 15 GM BOTTLE TP SCH ×2 (08:53→17:04)
[2021-09-25] MEDS: DORZOLAMIDE OPTH 2% 10 ML BOTTLE OP SCH ×2 (08:54→17:04)
[2021-09-25 12:00] VITALS: BP 122/43
--- NOTE | 2021-09-25 15:13 | NUR ---
RN NOTE DR MUKHERJEE AT BEDSIDE TO REINSERT MIDLINE, PREVIOUS MIDLINE DISLODGED. UNABLE TO REINSERT, GAVE NEW ORDER FOR PICC LINE, FAMILY GAVE CONSENT. LEFT UPPER ARM PICC LINE PLACE, PATIENT TOLERATED WELL. WILL CONTINUE TO MONITOR
[2021-09-25] MEDS: CEFTAZIDIME/AVIBACTAM 0.94 GM in IV NS 0.9% 100 ML IV SCH (15:35)
[2021-09-25] MEDS: EPOETIN ALFA (4000 UNIT) 4,000 UNIT/ML VIAL IV SCH (15:41)
[2021-09-25 16:00] VITALS: BP 107/41
[2021-09-25] MEDS: TOBRAMYCIN 80 MG in IV D5W 50 ML IV PRN (17:40)
--- NOTE | 2021-09-25 18:20 | NUR ---
ALBACORE FISHING BOAT CREWMAN CLOSING NOTES PT IN BED, EYES CLOSED, OBTUNDED, NONVERBAL. PT ON TRACH/VENT AND TOLERATING WELL. BREATHING EVENLY AND NONLABORED IV SITE: XIOMARA PICC INTACT/PATENT/FLUSHES WELL. PERMA-CATH ON R-CHEST WALL INTACT WITH DRESSING C/D/I. ON GTF NEPRO @40ML/HR. WITH F/C AND FLEXI-SEAL IN PLACE AND FUNCTIONING WELL. ON TELE MONITOR READING SR, HR 73. WOUND CARE PERFORMED DURING SHIFT. ALL MEDICATIONS GIVEN ORDERED. SAFETY MEASURES IN PLACE, BED IN LOWEST LOCKED POSITION, S/R UPX2, CALL LIGHT WITHIN REACH. WILL ENDORSE TO ONCOMING SHIFT.
--- NOTE | 2021-09-25 19:20 | NUR ---
TELE/RN OPENING NOTE RECEIVED PATIENT RESTING IN BED. NON-VERBAL, OPENS EYES. CONTINUES ON MECHANICAL VENT WITH PATIENT TOLERATING SETTINGS WELL. NO S/SX OF RESPIRATORY DISTRESS NOTED. IV ACCESS TO LEFT UPPER ARM PICC LINE INTACT, PATENT AND SALINE LOCKED. CONTINUES ON IV ABX. CONTINUES ON PROCTOR CATHETER DRAINING TO GRAVITY. CONTINUES ON RECTAL TUBE. CONTINUES ON GT FEED NEPRO AT 40ML/HR. NO RESIDUAL NOTED AT THIS TIME. DAUGHTER AT BEDSIDE. CALL LIGHT WITHIN REACH. ASPIRATION, FALL AND SAFETY PRECAUTIONS MAINTAINED. WILL CONTINUE TO MONITOR.
--- NOTE | 2021-09-25 19:22 | NUR ---
rt notes unable to scan meds. tx given.
[2021-09-25 20:00] VITALS: BP 128/45
--- NOTE | 2021-09-25 20:18 | NUR ---
TELE/RN NOTE PATIENT NOTED WITH FEVER OF 102.1. COOLING MEASURES INITIATED AND WILL ADMINISTER TYLENOL PER MD ORDERS. WILL RECHECK TEMP.
[2021-09-25] MEDS: ACETAMINOPHEN 325 MG TABLET PO PRN (20:25)
[2021-09-25] MEDS: LATANOPROST EYE DROP 0.005% 2.5 ML BOTTLE OP SCH (22:15)
[2021-09-26] VITALS: BP 109/36
[2021-09-26] MEDS: VANCOMYCIN HCL 125 MG/2.5 ML ORAL.SUSP GT SCH ×4 (00:40→17:21)
[2021-09-26] MEDS: IPRATROPIUM NEB FS 0.5 MG/2.5 ML AMPUL.NEB IH SCH ×4 (01:20→19:25)
[2021-09-26 04:00] VITALS: BP 106/34
[2021-09-26] MEDS: PHENYTOIN SODIUM IV 100 MG/2ML VIAL IV SCH ×3 (04:36→22:42)
[2021-09-26] MEDS: PIPERACILLIN /TAZOBACTAM 2.25 G in IV D5W 50 ML IV SCH ×3 (04:37→22:43)
[2021-09-26] MEDS: NEPRO 1,000 ML BOTTLE GT PRN (05:20)
--- NOTE | 2021-09-26 06:10 | NUR ---
TELE/RN CLOSING NOTE PATIENT CURRENTLY RESTING IN BED. NON-VERBAL, OPENS EYES. CONTINUES ON MECHANICAL VENT WITH PATIENT TOLERATING SETTINGS WELL. NO S/SX OF RESPIRATORY DISTRESS NOTED. IV ACCESS TO LEFT UPPER ARM PICC LINE INTACT, PATENT AND SALINE LOCKED. CONTINUES ON IV ABX. CONTINUES ON PROCTOR CATHETER DRAINING TO GRAVITY. CONTINUES ON RECTAL TUBE. CONTINUES ON GT FEED NEPRO AT 40ML/HR. NO RESIDUAL NOTED AT THIS TIME. CALL LIGHT WITHIN REACH. ASPIRATION, FALL AND SAFETY PRECAUTIONS MAINTAINED. WILL ENDORSE PLAN OF CARE TO ONCOMING SHIFT.
--- NOTE | 2021-09-26 07:37 | NUR ---
MEDICAL EDUCATION MANAGER OPENING NOTES RECEIVED Pt RESTING IN BED. NON-VERBAL. Pt IS ON MECHANICAL VENT WITH Pt TOLERATING SETTINGS WELL. NO SIGNS AND SYMPTOMS OF RESPIRATORY DISTRESS NOTED AT THIS TIME. IV ACCESS ON LEFT UPPER ARM PICC LINE IS PATENT AND INTACT, SALINE LOCK. Pt HAS A PROCTOR CATHETER, RECTAL TUBE AND CONTINUES ON GT FEEDING, NEPRO AT 40ML/HR. SAFETY MEASURES ARE IN PLACE: CALL LIGHT AND BEDSIDE TABLE ARE WITHIN REACH. ASPIRATION, FALL AND SAFETY PRECAUTIONS MAINTAINED. WILL CONTINUE TO MONITOR THROUGHOUT THE SHIFT.
[2021-09-26 08:00] VITALS: BP 111/42
[2021-09-26] MEDS: PANTOPRAZOLE 40 MG TABLET.DR PO SCH (08:46)
[2021-09-26] MEDS: PROSOURCE / PROSTAT (PYXIS) 30 ML UDC GT SCH ×2 (08:46→17:45)
[2021-09-26] MEDS: CHLORHEXIDINE GLUCONATE 15 ML UDC MM SCH ×2 (08:46→17:18)
[2021-09-26] MEDS: ARGININE/GLUTAMINE/CALCIUM BMB 1 EACH POWD.PACK GT SCH ×2 (08:46→17:18)
[2021-09-26] MEDS: ASCORBIC ACID 500 MG TABLET GT SCH (08:47)
[2021-09-26] MEDS: PHENOBARBITAL 30 MG TABLET PO SCH ×2 (08:47→17:19)
[2021-09-26] MEDS: METOCLOPRAMIDE HCL 10 MG TABLET PO SCH ×3 (08:47→17:19)
[2021-09-26] MEDS: SEVELAMER CARBONATE 800 MG TABLET PO SCH ×3 (08:47→17:19)
[2021-09-26] MEDS: DORZOLAMIDE OPTH 2% 10 ML BOTTLE OP SCH ×2 (08:48→17:20)
[2021-09-26] MEDS: DAKINS QUARTER STRENGTH (0.125%) 480 ML BOTTLE TOP SCH (08:49)
[2021-09-26] MEDS: CARVEDILOL 12.5 MG TABLET PO SCH ×2 (08:50→21:00)
--- NOTE | 2021-09-26 08:50 | NUR ---
RN NOTES- WITH HELP BP MEDS BLOOD PRESSURE MEDICATION NOT GIVEN THIS AM Pt's BP WAS 111/42, HEART RATE WAS 79. WILL CONTINUE TO MONITOR.
[2021-09-26] MEDS: NYSTATIN TOP POWDER 15 GM BOTTLE TP SCH ×2 (09:18→17:19)
[2021-09-26 09:19] LABS: BASOPHILS # (AUTO) 0.1 K/uL (0.0-0.2); BASOPHILS % (AUTO) 0.4 % (0.0-2.0); EOSINOPHILS % (AUTO) 2.5 % (0.0-6.0); HEMATOCRIT 23 % (33-45); HEMOGLOBIN 7.5 g/dL (11.5-14.8); LYMPHOCYTES # (AUTO) 1.9 K/uL (0.8-4.8); MEAN CORPUSCULAR HGB CONC 32 g/dl (31.0-36.0); MEAN CORPUSCULAR VOLUME 99 fL (82-100); MONOCYTES # (AUTO) 1.8 K/uL (0.1-1.30); MONOCYTES % (AUTO) 8.7 % (2.0-12.0); NEUTROPHILS # (AUTO) 16.5 K/uL (1.8-8.9); NEUTROPHILS % (AUTO) 79.4 % (43.0-81.0); PLATELET COUNT (AUTO) 498 K/uL (150-450); RED BLOOD CELL COUNT(AUTO) 2.32 MIL/uL (4.0-5.2); WHITE BLOOD COUNT (AUTO) 20.7 K/uL (4.3-11.0)
[2021-09-26] MEDS: ACETAMINOPHEN 325 MG TABLET PO PRN ×2 (10:28→18:33)
[2021-09-26 13:11] LABS: BAND % (MANUAL) 2 % (0.0-5.0); EOSINOPHILS % (MANUAL) 1 % (0-4); LYMPHOCYTES % (MANUAL) 11 % (16-48); MONOCYTES % (MANUAL) 7 % (0-11.0); NEUTROPHILS % (MANUAL) 79 (42-76)
[2021-09-26 16:00] VITALS: BP 136/56
--- NOTE | 2021-09-26 18:33 | NUR ---
SECTION GANG CLOSING NOTE Pt CURRENTLY RESTING IN BED. NON-VERBAL. DAUGHTER IS AT BEDSIDE. CONTINUES ON MECHANICAL VENT WITH PATIENT TOLERATING SETTINGS WELL. NO S/SX OF RESPIRATORY DISTRESS NOTED. IV ACCESS TO LEFT UPPER ARM PICC LINE. IV ACCESS IS PATENT AND INTACT,SL. CONTINUES ON PROCTOR CATHETER DRAINING TO GRAVITY. NEW RECTAL TUBE INSERTED TODAY INITIAL RECTAL TUBE CAME OUT. CONTINUES ON GT FEEDING NEPRO AT 40ML/HR. SAFETY MEASURES ARE IN PLACE: CALL LIGHT AND BEDSIDE TABLE ARE WITHIN REACH. BED IS LOCKED AND IN LOWEST POSITION. SIDE RAILS UP X3. WILL ENDORSE TO ONCOMING SHIFT.
--- NOTE | 2021-09-26 19:25 | NUR ---
CUFF MAKER OPENING NOTES: RECEIVED PATIENT ON BED, NON VERBAL, EYES CLOSED, RESPONSIVE TO TACTILE STIMULI. DAUGHTER AT BEDSIDE. PATIENT ON MECHANICAL VENTILATOR WITH THE FOLLOWING SETTINGS: PORTEX 7, AC 16, TV 500, FIO2 30%, PEEEP 5. NO S/S OF DISTRESS NOTED. ON TELE MONITOR WITH NSR .XIOMARA MIDLINE INTACT AND PATENT. WITH G-TUBE INTACT AND PATENT, GT FEEDING NEPRO RUNNING AT 40ML/HOUR. HOB ELEVATED AT ALL TIMES. SAFETY MEASURES IN PLACE, BED IN LOWEST AND LOCKED POSITION. SR UP X2. HEELS OFFLOADED. WILL CONTINUE TO MONITOR.
[2021-09-26 20:00] VITALS: BP 125/49
--- NOTE | 2021-09-26 21:00 | NUR ---
CERTIFIED CAREGIVER NOTES PATIENT'S DAUGHTER REFUSED FOR PATIENT TO RECEIVE CARVEDILOL. PATIENT BP 125/49 AND HR 77 EXPLAINED RISKS AND BENEFITS. DAUGHTER STILL REFUSED.
[2021-09-26 22:09] LABS: CALCIUM, SERUM 9.9 mg/dL (8.5-10.1); CARBON DIOXIDE 22 mmol/L (21-32); CHLORIDE 95 mmol/L (98-107); CREATININE 1.8 mg/dL (0.6-1.3); GLUCOSE 96 mg/dL (74-106); POTASSIUM 3.7 mmol/L (3.5-5.1); SODIUM SERUM 136 mmol/L (136-145); UREA NITROGEN, BLOOD 67 mg/dL (7-18)
[2021-09-26 22:20] LABS: ALANINE AMINOTRANSFERASE 36 U/L (12-78); ALBUMIN 1.8 g/dL (3.4-5.0); ALKALINE PHOSPHATASE 373 U/L (46-116); ASPARTATE AMINOTRANSFERASE 37 U/L (15-37); BILIRUBIN,TOTAL 0.4 mg/dL (0.2-1.0); MAGNESIUM 2.7 mg/dL (1.8-2.4); PHOSPHORUS 2.5 mg/dL (2.5-4.9); TOTAL PROTEIN, SERUM 7.6 g/dL (6.4-8.2)
[2021-09-26] MEDS: LATANOPROST EYE DROP 0.005% 2.5 ML BOTTLE OP SCH (23:58)
[2021-09-27] MEDS: VANCOMYCIN HCL 125 MG/2.5 ML ORAL.SUSP GT SCH ×4 (00:39→17:04)
[2021-09-27] MEDS: IPRATROPIUM NEB FS 0.5 MG/2.5 ML AMPUL.NEB IH SCH ×4 (02:11→19:48)
[2021-09-27] MEDS: PIPERACILLIN /TAZOBACTAM 2.25 G in IV D5W 50 ML IV SCH ×3 (05:05→21:33)
[2021-09-27] MEDS: PHENYTOIN SODIUM IV 100 MG/2ML VIAL IV SCH ×3 (05:05→21:34)
--- NOTE | 2021-09-27 07:17 | NUR ---
SOLID WASTE DISPOSAL MANAGER OPENING NOTES: PATIENT STILL ON BED, NON VERBAL, EYES CLOSED, RESPONSIVE TO TACTILE STIMULI. PATIENT ON MECHANICAL VENTILATOR WITH THE FOLLOWING SETTINGS: PORTEX 7, AC 16, TV 500, FIO2 30%, PEEEP 5. NO S/S OF DISTRESS NOTED. ON TELE MONITOR WITH NSR .XIOMARA MIDLINE INTACT AND PATENT. WITH G-TUBE INTACT AND PATENT, GT FEEDING NEPRO RUNNING AT 40ML/HOUR. WOUND CARE DONE. ALL NEEDS MET. HOB ELEVATED AT ALL TIMES. SAFETY MEASURES IN PLACE, BED IN LOWEST AND LOCKED POSITION. SR UP X2. HEELS OFFLOADED. WILL ENDORSE CONTINUITY OF CARE TO DAY SHIFT NURSE. Addendum: 09/27/21 at 0720 by MAYO JOSEPH RN SOLID WASTE DISPOSAL MANAGER CLOSING NOTES
--- NOTE | 2021-09-27 07:27 | NUR ---
SENIOR SOFTWARE TEST ENGINEER OPENING NOTES RECEIVED Pt RESTING IN BED. NON-VERBAL WITH EYES CLOSED. Pt IS ON MECHANICAL VENT WITH Pt TOLERATING SETTINGS WELL. NO SIGNS AND SYMPTOMS OF RESPIRATORY DISTRESS NOTED AT THIS TIME. IV ACCESS ON LEFT UPPER ARM PICC LINE IS PATENT AND INTACT, SALINE LOCK. Pt HAS A PROCTOR CATHETER, RECTAL TUBE AND CONTINUES ON GT FEEDING, NEPRO AT 40ML/HR. SAFETY MEASURES ARE IN PLACE: CALL LIGHT AND BEDSIDE TABLE ARE WITHIN REACH. ASPIRATION, FALL AND SAFETY PRECAUTIONS MAINTAINED. WILL CONTINUE TO MONITOR THROUGHOUT THE SHIFT.
[2021-09-27 08:00] VITALS: BP 115/39
--- NOTE | 2021-09-27 08:07 | NUR ---
INFORMATICA NOTES: BP Pt's BP THIS MORNING WAS 113/29. WHEN RETAKEN IT WAS 115/39. Dr. AND CHARGE NURSE NOTIFIED. WILL CONTINUE TO MONITOR.
[2021-09-27] MEDS: CARVEDILOL 12.5 MG TABLET PO SCH ×2 (09:00→21:00)
[2021-09-27] MEDS: CHLORHEXIDINE GLUCONATE 15 ML UDC MM SCH ×2 (09:02→17:03)
[2021-09-27] MEDS: ARGININE/GLUTAMINE/CALCIUM BMB 1 EACH POWD.PACK GT SCH ×2 (09:02→17:03)
[2021-09-27] MEDS: PROSOURCE / PROSTAT (PYXIS) 30 ML UDC GT SCH ×2 (09:02→17:03)
[2021-09-27] MEDS: PHENOBARBITAL 30 MG TABLET PO SCH ×2 (09:03→17:03)
[2021-09-27] MEDS: METOCLOPRAMIDE HCL 10 MG TABLET PO SCH ×3 (09:03→17:03)
[2021-09-27] MEDS: SEVELAMER CARBONATE 800 MG TABLET PO SCH ×3 (09:03→17:03)
[2021-09-27] MEDS: ASCORBIC ACID 500 MG TABLET GT SCH (09:03)
[2021-09-27] MEDS: PANTOPRAZOLE 40 MG TABLET.DR PO SCH (09:05)
[2021-09-27] MEDS: DAKINS QUARTER STRENGTH (0.125%) 480 ML BOTTLE TOP SCH (09:05)
[2021-09-27] MEDS: DORZOLAMIDE OPTH 2% 10 ML BOTTLE OP SCH ×2 (09:05→17:04)
[2021-09-27] MEDS: NYSTATIN TOP POWDER 15 GM BOTTLE TP SCH ×2 (09:06→17:04)
--- NOTE | 2021-09-27 09:06 | NUR ---
SENIOR COMPLIANCE ANALYST NOTED MORNING BP MEDS NOT GIVEN DUE TO Pt's BLOOD PRESSURE THIS AM.
[2021-09-27] MEDS ORDERED: IV NS 0.9% 250 ML IV ONE (09:30)
[2021-09-27] MEDS: ACETAMINOPHEN 325 MG TABLET PO PRN ×2 (10:31→21:33)
--- NOTE | 2021-09-27 10:35 | NUR ---
CAM SPECIALIST NOTES- FEVER Pt HAD A FEVER OF 101.0, TYLENOL WAS GIVEN. WILL CONTINUE TO MONITOR THROUGHOUT THE SHIFT.
--- NOTE | 2021-09-27 11:59 | NUR ---
MS HERRINGLOCAL DELIVERY TRUCK DRIVER NOTES:BP Pt's BP IS NOW 115/40 AFTER 250mL OF NS BOLUS GIVEN.
[2021-09-27 12:00] VITALS: BP 115/40
[2021-09-27] MEDS: CEFTAZIDIME/AVIBACTAM 0.94 GM in IV NS 0.9% 100 ML IV SCH (15:12)
[2021-09-27 16:19] VITALS: BP 117/43
--- NOTE | 2021-09-27 18:41 | NUR ---
MINERAL ENGINEER CLOSING NOTE Pt CURRENTLY RESTING IN BED. NON-VERBAL. DAUGHTER IS AT BEDSIDE. CONTINUES ON MECHANICAL VENT WITH PATIENT TOLERATING SETTINGS WELL. NO S/SX OF RESPIRATORY DISTRESS NOTED. IV ACCESS TO LEFT UPPER ARM PICC LINE. IV ACCESS IS PATENT AND INTACT,SL. CONTINUES ON PROCTOR CATHETER DRAINING TO GRAVITY. RECTAL TUBE OUTPUT IS 900 mL. CONTINUES ON GT FEEDING NEPRO AT 40ML/HR. SAFETY MEASURES ARE IN PLACE: CALL LIGHT AND BEDSIDE TABLE ARE WITHIN REACH. BED IS LOCKED AND IN LOWEST POSITION. SIDE RAILS UP X3. WILL ENDORSE TO ONCOMING SHIFT.
[2021-09-27 20:00] VITALS: BP_SYST 128; BP_SYST 135; BP_DIAS 51; BP_DIAS 53
[2021-09-27] MEDS: LATANOPROST EYE DROP 0.005% 2.5 ML BOTTLE OP SCH (21:34)
--- NOTE | 2021-09-27 22:05 | NUR ---
episodes of low B/P today and per family request hold 2100 coreg. BP stable 128/52. HR 80.
[2021-09-28] VITALS: BP 138/55
[2021-09-28] MEDS: VANCOMYCIN HCL 125 MG/2.5 ML ORAL.SUSP GT SCH ×5 (00:43→23:43)
[2021-09-28] MEDS: IPRATROPIUM NEB FS 0.5 MG/2.5 ML AMPUL.NEB IH SCH ×4 (01:53→19:42)
[2021-09-28 04:00] VITALS: BP 143/56
[2021-09-28] MEDS: PIPERACILLIN /TAZOBACTAM 2.25 G in IV D5W 50 ML IV SCH ×3 (05:21→12:30)
[2021-09-28] MEDS: PHENYTOIN SODIUM IV 100 MG/2ML VIAL IV SCH ×3 (05:21→21:01)
--- NOTE | 2021-09-28 06:51 | NUR ---
CLOTH BRUSHING AND SUEDING SUPERVISOR CLOSING NOTES Patient is Alert to touch only open eyes and is non-verbal. Had fever of 100.7 early in the night but temp went down to 97.9 and stayed in range (with PRN tylenol given and cooling measures). 600cc output very liquid brown stool to flexi seal. No urine output to manuel cath -pt is anuric. Wound care provided and wound pictures taken in chart. No non-verbal indicators of pain or discomfort. O2 at 100% via mechanical ventilator. G-tube feeding tolerated 5cc residual -scant.
[2021-09-28 07:37] LABS: BASOPHILS # (AUTO) 0.1 K/uL (0.0-0.2); BASOPHILS % (AUTO) 0.5 % (0.0-2.0); EOSINOPHILS % (AUTO) 3.8 % (0.0-6.0); HEMATOCRIT 26 % (33-45); HEMOGLOBIN 8.4 g/dL (11.5-14.8); LYMPHOCYTES # (AUTO) 1.6 K/uL (0.8-4.8); LYMPHOCYTES % (AUTO) 9.6 % (20.0-44.0); MEAN CORPUSCULAR HGB CONC 32 g/dl (31.0-36.0); MEAN CORPUSCULAR VOLUME 101 fL (82-100); MONOCYTES # (AUTO) 1.9 K/uL (0.1-1.30); MONOCYTES % (AUTO) 11.1 % (2.0-12.0); NEUTROPHILS # (AUTO) 12.5 K/uL (1.8-8.9); PLATELET COUNT (AUTO) 457 K/uL (150-450); RED BLOOD CELL COUNT(AUTO) 2.58 MIL/uL (4.0-5.2); WHITE BLOOD COUNT (AUTO) 16.7 K/uL (4.3-11.0)
[2021-09-28 08:00] VITALS: BP 155/54
[2021-09-28 08:27] LABS: ALANINE AMINOTRANSFERASE 55 U/L (12-78); ALBUMIN 1.6 g/dL (3.4-5.0); ALKALINE PHOSPHATASE 403 U/L (46-116); ASPARTATE AMINOTRANSFERASE 63 U/L (15-37); BILIRUBIN,TOTAL 0.4 mg/dL (0.2-1.0); CARBON DIOXIDE 23 mmol/L (21-32); CHLORIDE 91 mmol/L (98-107); CREATININE 2.5 mg/dL (0.6-1.3); GLUCOSE 111 mg/dL (74-106); MAGNESIUM 2.7 mg/dL (1.8-2.4); PHOSPHORUS 4.6 mg/dL (2.5-4.9); SODIUM SERUM 132 mmol/L (136-145); TOTAL PROTEIN, SERUM 7.6 g/dL (6.4-8.2)
[2021-09-28] MEDS: CARVEDILOL 12.5 MG TABLET PO SCH ×2 (09:00→21:00)
[2021-09-28] MEDS: DORZOLAMIDE OPTH 2% 10 ML BOTTLE OP SCH ×2 (09:00→17:16)
[2021-09-28] MEDS: METOCLOPRAMIDE HCL 10 MG TABLET PO SCH ×3 (09:02→17:49)
[2021-09-28] MEDS: PANTOPRAZOLE 40 MG TABLET.DR PO SCH (09:02)
[2021-09-28] MEDS: SEVELAMER CARBONATE 800 MG TABLET PO SCH ×3 (09:02→17:49)
[2021-09-28] MEDS: CHLORHEXIDINE GLUCONATE 15 ML UDC MM SCH ×2 (09:03→16:52)
[2021-09-28] MEDS: PHENOBARBITAL 30 MG TABLET PO SCH ×2 (09:03→16:52)
[2021-09-28] MEDS: ASCORBIC ACID 500 MG TABLET GT SCH (09:03)
[2021-09-28] MEDS: NYSTATIN TOP POWDER 15 GM BOTTLE TP SCH ×2 (09:04→17:16)
[2021-09-28] MEDS: DAKINS QUARTER STRENGTH (0.125%) 480 ML BOTTLE TOP SCH (09:04)
[2021-09-28] MEDS: PROSOURCE / PROSTAT (PYXIS) 30 ML UDC GT SCH ×2 (09:05→16:52)
[2021-09-28] MEDS: ARGININE/GLUTAMINE/CALCIUM BMB 1 EACH POWD.PACK GT SCH ×2 (09:06→16:52)
[2021-09-28 10:41] LABS: UREA NITROGEN, BLOOD 126 mg/dL (7-18)
[2021-09-28 12:30] VITALS: BP 138/54
[2021-09-28 12:50] LABS: OCCULT BLOOD STOOL NEGATIVE (NEGATIVE)
[2021-09-28] MEDS: CLOTRIMAZOLE 1% 15 GM TUBE TP SCH ×2 (13:00→17:00)
[2021-09-28] MEDS: EPOETIN ALFA (4000 UNIT) 4,000 UNIT/ML VIAL IV SCH (14:51)
[2021-09-28 16:00] VITALS: BP 126/47
[2021-09-28] MEDS: ACETAMINOPHEN 325 MG TABLET PO PRN (16:52)
--- NOTE | 2021-09-28 18:50 | NUR ---
RN OPENING NOTE PT NONVERBAL. ON VENT TRACH, SETTING CHECKED. FLEXISEAL PRESENT. F/C PRESENT. ON BEDREST. SACRAL WOUND PRESENT AND WOUND CARE ORDERED. G TUBE PRESENT WITH NEPHRO RUNNING AT 40 ML/HR. IV PRESENT ON XIMOARA MIDLINE AND SALINE LOCKED. LABS AND ORDERS REVIEWED. SAFETY MEASURES IN PLACE. SIDE RAILS RAISED. BED LOWERED. CALL LIGHT WITHIN REACH. WILL CONTINUE TO MONITOR.
--- NOTE | 2021-09-28 19:40 | NUR ---
custodial laborer opening notes Pt is resting in bed comfortably accompanied by her daughter Charlotte. Pt is non verbal and able to open eyes. Pt is on vent trach with O2 sat is 100%. No SOB. No S/S of distress noted. XIOMARA midline is clean and intact. RCW permacath is clean and intact. Gtube feeding is running nephro 40 ml/hr with 0 residual. Pt tolerated well. Herring is intact and draining yellow urine. Flexiseal is intact. Tele monitor showed SR hr at 83. Safety precautions is maintained. Bed at low position, brakes locked, side rails upX3, hob elevated, bed alarm is on and call light is within reach. Will continue to monitor.
[2021-09-28 20:00] VITALS: BP 135/53
--- NOTE | 2021-09-28 21:03 | NUR ---
RN notes Pt's daughter Charlotte at the bedside and refusing BP med coreg. Explained risks and benefits. Pt's daughter keep refusing. Pt daughter stated "It will drop blood pressure later!!" BP 135/53 and pulse 83. Will continue to monitor.
[2021-09-28] MEDS: LATANOPROST EYE DROP 0.005% 2.5 ML BOTTLE OP SCH (21:54)
[2021-09-29] VITALS: BP 145/65
[2021-09-29] MEDS: IPRATROPIUM NEB FS 0.5 MG/2.5 ML AMPUL.NEB IH SCH ×4 (01:41→19:42)
[2021-09-29 04:00] VITALS: BP 145/65
--- NOTE | 2021-09-29 04:00 | NUR ---
RN notes Wound care provided as ordered. Pt tolerated well.
[2021-09-29] MEDS: PHENYTOIN SODIUM IV 100 MG/2ML VIAL IV SCH ×3 (04:04→21:27)
[2021-09-29] MEDS: VANCOMYCIN HCL 125 MG/2.5 ML ORAL.SUSP GT SCH ×3 (05:10→17:41)
--- NOTE | 2021-09-29 06:30 | NUR ---
community education coordinator closing notes Pt is resting in bed comfortably. Pt is non verbal and able to open eyes. Pt is on vent trach with O2 sat is 100%. No SOB. No S/S of distress noted. Routine meds were given as ordered. XIOMARA midline is clean and intact. RCW permacath is clean and intact. Gtube feeding is running nephro 40 ml/hr with 0 residual. VS is stable. Afebrile. Herring is intact. Flexiseal is intact. Tele monitor showed SR hr at 67. Wound care provided as ordered. Safety precautions is maintained. Bed at low position, brakes locked, side rails upX3, bed alarm is on and call light is within reach. Will endorse to am nurse for OTIS
--- NOTE | 2021-09-29 07:40 | NUR ---
health services administrator OPENING NOTES RECEIVED PATIENT IN BED, ASLEEP. PATIENT IN NON-VERBAL ON VENT, TOLERATING VENT SETTINGS WELL AT THIS TIME. NO S/S OF PAIN SUCH FACIAL GRIMACING, MOANING OR GUARDING NOTED. XIOMARA MIDLINE CLEAN AND INTACT. RCW PRESENT. G-TUBE RUNNING NEPHRO AT 40 MLS/HR. PROCTOR CATH IN PLACE. FLEXISEAL DRAINING BROWN STOOL. SAFETY PRECAUTIONS IN PLACE; BED IN LOW POSITION AND LOCKED, RAILS UP X2, CALL LIGHT WITHIN REACH. WILL CONTINUE TO MONITOR PATIENT.
[2021-09-29 08:00] VITALS: BP 146/60
[2021-09-29] MEDS: CARVEDILOL 12.5 MG TABLET PO SCH ×2 (08:49→21:00)
[2021-09-29] MEDS: PHENOBARBITAL 30 MG TABLET PO SCH ×2 (09:13→16:54)
[2021-09-29] MEDS: METOCLOPRAMIDE HCL 10 MG TABLET PO SCH ×3 (09:13→17:40)
[2021-09-29] MEDS: SEVELAMER CARBONATE 800 MG TABLET PO SCH ×3 (09:13→17:40)
[2021-09-29] MEDS: ASCORBIC ACID 500 MG TABLET GT SCH (09:13)
[2021-09-29] MEDS: NYSTATIN TOP POWDER 15 GM BOTTLE TP SCH ×2 (09:14→16:55)
[2021-09-29] MEDS: CHLORHEXIDINE GLUCONATE 15 ML UDC MM SCH ×2 (09:14→16:30)
[2021-09-29] MEDS: PANTOPRAZOLE 40 MG TABLET.DR PO SCH (09:14)
[2021-09-29] MEDS: CLOTRIMAZOLE 1% 15 GM TUBE TP SCH ×2 (09:15→16:55)
[2021-09-29] MEDS: DAKINS QUARTER STRENGTH (0.125%) 480 ML BOTTLE TOP SCH (09:15)
[2021-09-29] MEDS: DORZOLAMIDE OPTH 2% 10 ML BOTTLE OP SCH ×2 (09:15→16:55)
[2021-09-29] MEDS: PROSOURCE / PROSTAT (PYXIS) 30 ML UDC GT SCH ×2 (09:17→16:54)
[2021-09-29] MEDS: ARGININE/GLUTAMINE/CALCIUM BMB 1 EACH POWD.PACK GT SCH ×2 (09:17→16:54)
[2021-09-29 12:00] VITALS: BP 130/46
[2021-09-29] MEDS: CHOLESTYRAMINE/ASPARTAME 4 G/PKT PACKET PO SCH ×2 (13:00→21:27)
--- NOTE | 2021-09-29 13:32 | NUR ---
KEYMODULE ASSEMBLY MACHINE TENDER NOTES DURING CHANGE PATIENT NOTED TO BE ACTIVELY BLEEDING FROM THE ANUS. PATIENT HAS A FLEXISEAL BUT THERE IS NO BLOOD IN THE BAG. CHARGE NURSE NOTIFIED AND MADE AWARE. STAT H&H ORDERED. NO NEW ORDERS.
[2021-09-29] MEDS: TOBRAMYCIN 80 MG in IV D5W 50 ML IV PRN (13:41)
--- NOTE | 2021-09-29 13:50 | NUR ---
ENGRAVING PRESS OPERATOR NOTES MADELAINE FROM OR ON THE FLOOR. WENT TO CHECK THE PATIENT. REMOVED FLEXISEAL. FOUND THE CAUSE OF BLEEDING. SURGICEL 2X3 ORDERED AND APPLIED BY MADELAINE HUSSEIN. GAUZE PACKING DONE AND IN PLACE. AWARE.
[2021-09-29 13:55] LABS: HEMOGLOBIN 7.6 g/dL (11.5-14.8)
[2021-09-29] MEDS ORDERED: CELLULOSE,OXIDIZED 1 PKT EACH MC STA (14:24)
[2021-09-29] MEDS ORDERED: SILVER NITRATE APPLICATOR 1 EA BOX TP STA (14:24)
[2021-09-29] MEDS ORDERED: CELLULOSE,OXIDIZED 1 EACH EACH MC ONE (14:30)
[2021-09-29] MEDS ORDERED: CELLULOSE,OXIDIZED 1 PKT EACH MC ONE (14:30)
[2021-09-29] MEDS: CEFTAZIDIME/AVIBACTAM 0.94 GM in IV NS 0.9% 100 ML IV SCH (15:12)
--- NOTE | 2021-09-29 15:30 | NUR ---
NAIL PROFESSIONAL NOTES HGB CAME BACK AT 7.6 MD NOTIFIED.
[2021-09-29 16:00] VITALS: BP 127/52
--- NOTE | 2021-09-29 18:30 | NUR ---
GEOPHYSICS TEACHER NOTES PATIENT NOTED WITH FEVER 100.3. WILL ADMINISTER PRN TYLENOL.
[2021-09-29] MEDS: ACETAMINOPHEN 325 MG TABLET PO PRN (18:42)
--- NOTE | 2021-09-29 19:00 | NUR ---
PAPER MACHINE TENDER OPENING NOTE RECEIVED PT IN BED, AWAKE AND RESTING. PT'S DAUGHTER PRESENT. PT IS NONVERBAL, ON EXTERNAL CLINICAL APPEALS SPECIALIST , NO SOB OR RESPIRATORY DISTRESS NOTED, NO C/O PAIN AT THIS TIME. RESPIRATIONS EVEN AND UNLABORED. IV ACCESS NOTED IN LEFT UPPER ARM PICCLINE AND RIGHT SUBCLAVIAN HD CATH IN PLACE. . NGT IN PLACE, FALL AND SAFETY MEASURES IN PLACE AND MAINTAINED AT ALL TIMES. BED ALARM, BED IN LOW AND LOCKED POSITION, HOB ELEVATED TO SEMI FOWLERS POSITION, CALL LIGHT AND TABLE WITHIN REACH. SIDE RAILS UP X2. WILL CONTINUE WITH PLAN OF CARE.
--- NOTE | 2021-09-29 19:00 | NUR ---
CARTON STAMPER CLOSING NOTES PATIENT REMAINS IN BED, ASLEEP. PATIENT IN NON-VERBAL ON VENT, TOLERATING VENT SETTINGS WELL DURING SHIFT. NO S/S OF PAIN SUCH FACIAL GRIMACING, MOANING OR GUARDING NOTED. XIOMARA MIDLINE CLEAN AND INTACT. RCW PRESENT. G-TUBE RUNNING NEPHRO AT 40 MLS/HR. PROCTOR CATH IN PLACE WITH 20 CC PRESENT. AT THIS TIME NO MORE BLOOD PRESENT. ALL NEEDS ATTENDED DURING THE DAY. SAFETY PRECAUTIONS IN PLACE; BED IN LOW POSITION AND LOCKED, RAILS UP X2, CALL LIGHT WITHIN REACH. WILL ENDORSE TO DETECTIVE LIEUTENANT NURSE FOR OTIS.
--- NOTE | 2021-09-29 21:39 | NUR ---
PT'S DAUGHTER REFUSED BP MEDICATION. WILL CONTINUE TO MONITOR
[2021-09-29] MEDS: LATANOPROST EYE DROP 0.005% 2.5 ML BOTTLE OP SCH (21:55)
[2021-09-30] VITALS (49 sets, daily range): BP systolic 77–133; BP diastolic 27–81
[2021-09-30] MEDS: VANCOMYCIN HCL 125 MG/2.5 ML ORAL.SUSP GT SCH ×4 (00:30→20:06)
[2021-09-30] MEDS: IPRATROPIUM NEB FS 0.5 MG/2.5 ML AMPUL.NEB IH SCH ×4 (01:28→19:27)
[2021-09-30] MEDS: PHENYTOIN SODIUM IV 100 MG/2ML VIAL IV SCH ×3 (05:54→21:46)
--- NOTE | 2021-09-30 06:30 | NUR ---
COMPUTER TECHNOLOGY TEACHER CLOSING NOTE PT REMAINED STABLE THROUGHOUT SHIFT. WILL ENDORSE TO ONCOMING RN FOR OTIS.
--- NOTE | 2021-09-30 07:09 | NUR ---
PATIENT FINANCIAL SPECIALIST OPENING NOTES RECEIVED PT IN BED, EYES CLOSED, OBTUNDED, NONVERBAL. PT ON TRACH/VENT AND TOLERATING WELL. BREATHING EVENLY AND NONLABORED IV SITE: XIOMARA PICC INTACT/PATENT/FLUSHES WELL. PERMA-CATH ON R-CHEST WALL INTACT WITH DRESSING C/D/I. ON GTF NEPRO @40ML/HR. WITH F/C IN PLACE AND FUNCTIONING WELL. ON TELE MONITOR READING SR, SAFETY MEASURES IN PLACE, BED IN LOWEST LOCKED POSITION, S/R UPX2, CALL LIGHT WITHIN REACH. WILL CONT TO MONITOR.
[2021-09-30 07:39] LABS: BASOPHILS # (AUTO) 0.1 K/uL (0.0-0.2); BASOPHILS % (AUTO) 0.5 % (0.0-2.0); EOSINOPHILS % (AUTO) 2.3 % (0.0-6.0); LYMPHOCYTES # (AUTO) 2.7 K/uL (0.8-4.8); MEAN CORPUSCULAR HGB CONC 32 g/dl (31.0-36.0); MEAN CORPUSCULAR VOLUME 99 fL (82-100); MONOCYTES # (AUTO) 1.9 K/uL (0.1-1.30); MONOCYTES % (AUTO) 9.7 % (2.0-12.0); NEUTROPHILS # (AUTO) 14.1 K/uL (1.8-8.9); NEUTROPHILS % (AUTO) 73.5 % (43.0-81.0); PLATELET COUNT (AUTO) 477 K/uL (150-450); WHITE BLOOD COUNT (AUTO) 19.2 K/uL (4.3-11.0)
[2021-09-30 08:06] LABS: RED BLOOD CELL COUNT(AUTO) 1.95 MIL/uL (4.0-5.2)
--- NOTE | 2021-09-30 08:07 | NUR ---
RN NOTE RECEIVED CALL FROM LAB CRITICAL VALUE HGB 6.2 AND HCT 19, RESULTS RELAYED TO MD WHO GAVE NEW ORDER FOR STAT 1 PRBC TRANSFUSION. FAMILY NOTIFIED EDUCATION PROVIDED. WILL CONTINUE TO MONITOR
--- NOTE | 2021-09-30 08:08 | NUR ---
RN NOTE NO SIGNS OF BLEEDING AT THIS TIME, AWATING TRANSFUSION
[2021-09-30 08:11] LABS: HEMOGLOBIN 6.2 g/dL (11.5-14.8)
[2021-09-30 08:12] LABS: HEMATOCRIT 19 % (33-45)
[2021-09-30] MEDS: PANTOPRAZOLE 40 MG TABLET.DR PO SCH (08:18)
[2021-09-30] MEDS: CHLORHEXIDINE GLUCONATE 15 ML UDC MM SCH ×2 (08:18→17:05)
[2021-09-30] MEDS: ASCORBIC ACID 500 MG TABLET GT SCH (08:18)
[2021-09-30] MEDS: PROSOURCE / PROSTAT (PYXIS) 30 ML UDC GT SCH ×2 (08:18→17:00)
[2021-09-30] MEDS: SEVELAMER CARBONATE 800 MG TABLET PO SCH ×3 (08:18→18:00)
[2021-09-30] MEDS: PHENOBARBITAL 30 MG TABLET PO SCH ×2 (08:18→17:00)
[2021-09-30] MEDS: CARVEDILOL 12.5 MG TABLET PO SCH ×2 (08:18→21:00)
[2021-09-30] MEDS: METOCLOPRAMIDE HCL 10 MG TABLET PO SCH ×3 (08:19→18:00)
[2021-09-30] MEDS: CHOLESTYRAMINE/ASPARTAME 4 G/PKT PACKET PO SCH ×2 (08:19→21:00)
[2021-09-30] MEDS: NYSTATIN TOP POWDER 15 GM BOTTLE TP SCH ×2 (08:35→17:05)
[2021-09-30] MEDS: DORZOLAMIDE OPTH 2% 10 ML BOTTLE OP SCH ×2 (08:36→17:04)
[2021-09-30] MEDS: DAKINS QUARTER STRENGTH (0.125%) 480 ML BOTTLE TOP SCH (08:36)
[2021-09-30] MEDS: CLOTRIMAZOLE 1% 15 GM TUBE TP SCH ×2 (08:36→17:04)
[2021-09-30] MEDS: MIDODRINE HCL (5MG) 5 MG TABLET PO PRN (08:39)
[2021-09-30 08:58] LABS: CALCIUM, SERUM 9.4 mg/dL (8.5-10.1); CARBON DIOXIDE 19 mmol/L (21-32); CHLORIDE 90 mmol/L (98-107); GLUCOSE 108 mg/dL (74-106); POTASSIUM 4.5 mmol/L (3.5-5.1); SODIUM SERUM 127 mmol/L (136-145)
[2021-09-30 08:59] LABS: CREATININE 2.3 mg/dL (0.6-1.3); MAGNESIUM 2.9 mg/dL (1.8-2.4); PHOSPHORUS 4.5 mg/dL (2.5-4.9); UREA NITROGEN, BLOOD 103 mg/dL (7-18)
[2021-09-30] MEDS: ARGININE/GLUTAMINE/CALCIUM BMB 1 EACH POWD.PACK GT SCH ×2 (09:00→17:00)
--- NOTE | 2021-09-30 10:00 | NUR ---
RN NOTE PATIENT NOTED TO BE ACTIVELY BLEEDING FROM RECTUM, NOTIFIED, VITALS BP 121/49, HR 89, O2 SAT 98% ON VENT. MD GAVE NEW ORDER TO TRANSFER TO ICU. TRANSFER VIA ACLS PROTOCOL. ORDERED 1 LITER NS, NM SCAN. SURGISEAL IN PLACE.
[2021-09-30] MEDS ORDERED: IV NS 0.9% 1,000 ML IV ONE (10:30)
[2021-09-30] MEDS ORDERED: CELLULOSE,OXIDIZED 1 PKT EACH MC ONE (11:00)
--- NOTE | 2021-09-30 11:27 | NUR ---
RN NOTE GAVE NEW ORDER FOR HGB AND HCT Q6HRS
--- NOTE | 2021-09-30 11:55 | NUR ---
RN NOTE STARTED TRANSFUSION, VITALS DOCUMENTED. WILL CONTINUE TO MONITOR
--- NOTE | 2021-09-30 13:55 | NUR ---
RN NOTE PATIENT POST TRASNFUSION, TOLERATED WELL. PATIENT TRANSFER BACK FROM PROCEDURE TO ICU, REPORT GIVEN
--- NOTE | 2021-09-30 14:00 | NUR ---
BRIM PLATER RECEIVED PT FROM [employer] [employer] CONNECTED TO VENT. PRBC #1 INFUSED. TOLERATED WELL. WILL TRANSFUSE 2ND UNIT WHEN AVAILABLE. BLEEDING FROM RECTUM NOTED. APPLIED SURGICEL, APPLIED BULKY DRESSING.
--- NOTE | 2021-09-30 14:39 | NUR ---
NM:GI BLEEDING WAS COMPLETED. TECH:RB
[2021-09-30] MEDS ORDERED: DESMOPRESSIN 20 MCG in IV NS 0.9% 50 ML IV ONE (15:00)
[2021-09-30] MEDS ORDERED: EPOETIN ALFA-EPBX 10,000 UNIT/ML VIAL IV ONE (15:30)
--- NOTE | 2021-09-30 16:00 | NUR ---
MAJOR ASSEMBLY INSPECTOR BP LABILE. WILL START PRESSOR IF NEEDED. PRBC NOT AVAILABLE YET.
[2021-09-30] MEDS: EPOETIN ALFA (4000 UNIT) 4,000 UNIT/ML VIAL IV SCH (16:32)
[2021-09-30] MEDS: NOREPINEPHRINE 8 MG in IV NS 0.9% 242 ML IV PRN (16:34)
--- NOTE | 2021-09-30 18:00 | NUR ---
SENIOR RD ENGINEER CALLED BLOOD BANK FOR UPDATE OF PRBC. NOT AVAILABLE YET. PT CONTINUES TO HAVE RECTAL BLEEDING. LEVO INFUSING. UPDATED SUJEY VILLEGAS DNP BY PHONE. GI TO BE CONTACTED.
[2021-09-30] MEDS ORDERED: IV NS 0.9% 500 ML BAG IV ONE (19:00)
[2021-09-30] MEDS ORDERED: PEG 3350/NA SULF,BICARB,CL/KCL 4,000 ML BOTTLE GT ONE (19:00)
--- NOTE | 2021-09-30 19:30 | NUR ---
ICU/RN: RECEIVED PT IN BED, EYES CLOSED, OBTUNDED, NONVERBAL. PT ON TRACH PORTEX #7 VENT SETTING ORDERED AC 14 TV 500 FIO2 30% PEEP 5 TOLERATING WELL. IV SITE: XIOMARA PICC INFUSING NS BOLUS. PERMA-CATH ON R-CHEST WALL INTACT DRESSING CDI. GTUBE CLAMPED. F/C IN PLACE SCANT TEA COLORED URINE DRAINING. TELE READING SR, SAFETY MEASURES IN PLACE, BED IN LOWEST LOCKED POSITION, S/R UPX2, CALL LIGHT WITHIN REACH. WILL CONT TO MONITOR.
--- NOTE | 2021-09-30 22:00 | NUR ---
ICU/RN: DR. MARTINEZ AT BEDSIDE TO EVALUATE PT.
[2021-09-30] MEDS: LATANOPROST EYE DROP 0.005% 2.5 ML BOTTLE OP SCH (22:17)
[2021-09-30 22:56] LABS: EOSINOPHILS % (MANUAL) 3 % (0-4); LYMPHOCYTES % (MANUAL) 17 % (16-48); METAMYELOCYTES % 1 % (0-0); MONOCYTES % (MANUAL) 7 % (0-11.0); MYELOCYTES % 1 % (0-0); NEUTROPHILS % (MANUAL) 71 (42-76)
[2021-10-01] VITALS (95 sets, daily range): BP systolic 80–158; BP diastolic 15–73
--- NOTE | 2021-10-01 00:27 | NUR ---
ICU/RN: PRBC TRANSFUSION COMPLETE. PER LAB NO CLS DIMENSION SPECIFICATION INSPECTOR AVAILABLE TO RELEASE SECOND UNIT UNTIL MORNING. UTILITY TENDER CARDING AND CHARGE ACCOUNT IDENTIFICATION CLERK AWARE.
--- NOTE | 2021-10-01 01:45 | NUR ---
ICU/RN: DIALYSIS NURSE AT BESIDE TO START HD.
[2021-10-01] MEDS: IPRATROPIUM NEB FS 0.5 MG/2.5 ML AMPUL.NEB IH SCH ×4 (01:47→19:33)
--- NOTE | 2021-10-01 03:07 | NUR ---
ICU/RN: HD STOPPED. NO FLUID REMOVED.
[2021-10-01] MEDS: VANCOMYCIN HCL 125 MG/2.5 ML ORAL.SUSP GT SCH ×4 (05:07→17:09)
[2021-10-01] MEDS: PHENYTOIN SODIUM IV 100 MG/2ML VIAL IV SCH ×3 (05:14→21:39)
[2021-10-01 05:16] LABS: BASOPHILS # (AUTO) 0.1 K/uL (0.0-0.2); BASOPHILS % (AUTO) 0.2 % (0.0-2.0); EOSINOPHILS % (AUTO) 0.1 % (0.0-6.0); HEMATOCRIT 23 % (33-45); HEMOGLOBIN 7.7 g/dL (11.5-14.8); LYMPHOCYTES # (AUTO) 1.6 K/uL (0.8-4.8); MEAN CORPUSCULAR HGB CONC 33 g/dl (31.0-36.0); MEAN CORPUSCULAR VOLUME 94 fL (82-100); MONOCYTES # (AUTO) 2.6 K/uL (0.1-1.30); MONOCYTES % (AUTO) 6.4 % (2.0-12.0); NEUTROPHILS # (AUTO) 36.6 K/uL (1.8-8.9); NEUTROPHILS % (AUTO) 89.3 % (43.0-81.0); PLATELET COUNT (AUTO) 461 K/uL (150-450)
[2021-10-01 05:38] LABS: ALANINE AMINOTRANSFERASE 127 U/L (12-78); ALBUMIN 1.5 g/dL (3.4-5.0); ALKALINE PHOSPHATASE 287 U/L (46-116); ASPARTATE AMINOTRANSFERASE 224 U/L (15-37); BILIRUBIN,TOTAL 0.5 mg/dL (0.2-1.0); CALCIUM, SERUM 8.8 mg/dL (8.5-10.1); CARBON DIOXIDE 15 mmol/L (21-32); CHLORIDE 94 mmol/L (98-107); CREATININE 1.9 mg/dL (0.6-1.3); GLUCOSE 203 mg/dL (74-106); MAGNESIUM 2.3 mg/dL (1.8-2.4); PHOSPHORUS 5.4 mg/dL (2.5-4.9); POTASSIUM 4.3 mmol/L (3.5-5.1); SODIUM SERUM 133 mmol/L (136-145); TOTAL PROTEIN, SERUM 6.5 g/dL (6.4-8.2)
[2021-10-01 05:54] LABS: WHITE BLOOD COUNT (AUTO) 40.9 K/uL (4.3-11.0)
--- NOTE | 2021-10-01 05:54 | NUR ---
ICU/RN: PT BOWEL PREP COMPLETE. BED BATH GIVEN AND LINENS CHANGED. PT TOLERATED WELL. WILL CONTINUE TO MONITOR.
[2021-10-01 05:56] LABS: UREA NITROGEN, BLOOD 82 mg/dL (7-18)
--- NOTE | 2021-10-01 06:33 | NUR ---
ICU/RN: MIGUELITO DELGADO MADE AWARE OF PT CRITICAL WBC 40.9. NO NEW ORDERS.
--- NOTE | 2021-10-01 07:40 | NUR ---
ICU/RN PT IS ON THE VENT /TRACH,FIO2-30%,SAT O2-100%.ON LEVOPHED DRIP.WITH RECTAL BLEED .NO ACTIVE BLEEDING AT THIS TIME H/H 7.7/.AFEBRILE. HR -85 BPM SINUS RHYTHM.PT IS OPEN HER EYES ,NOT TACKING, HAS HX OF CVA.BEDBOUND.G-TUBE CLAMPED.PT IS NPO.WAITING FOR COLONOSCOPY TODAY.F/C IN PLACE WITH MINIMAL AMOUNT OF TEA COLOR URINE.PT IS ANURIC ON HD .RIGHT CHEST HD CATH. SACRAL WOUND COVERED WITH DRESSING.SUCTION PROVIDED.REPOSITION FOR COMFORT.LABS REVIEW, AWARE.
[2021-10-01] MEDS: SEVELAMER CARBONATE 800 MG TABLET PO SCH ×3 (08:00→17:09)
[2021-10-01] MEDS: PROSOURCE / PROSTAT (PYXIS) 30 ML UDC GT SCH ×2 (08:07→16:05)
[2021-10-01] MEDS: ARGININE/GLUTAMINE/CALCIUM BMB 1 EACH POWD.PACK GT SCH ×2 (08:07→16:05)
[2021-10-01] MEDS: ASCORBIC ACID 500 MG TABLET GT SCH (08:07)
[2021-10-01] MEDS: CARVEDILOL 12.5 MG TABLET PO SCH ×2 (08:07→21:00)
[2021-10-01] MEDS: CHOLESTYRAMINE/ASPARTAME 4 G/PKT PACKET PO SCH ×2 (08:08→21:39)
[2021-10-01] MEDS: PHENOBARBITAL 30 MG TABLET PO SCH ×2 (08:08→16:04)
[2021-10-01] MEDS: METOCLOPRAMIDE HCL 10 MG/2 ML VIAL IV SCH ×2 (08:13→16:03)
[2021-10-01] MEDS: PANTOPRAZOLE 40 MG VIAL IV SCH (08:13)
[2021-10-01] MEDS: DORZOLAMIDE OPTH 2% 10 ML BOTTLE OP SCH ×2 (08:15→16:05)
[2021-10-01] MEDS: CLOTRIMAZOLE 1% 15 GM TUBE TP SCH ×2 (08:16→16:04)
[2021-10-01] MEDS: DAKINS QUARTER STRENGTH (0.125%) 480 ML BOTTLE TOP SCH (08:16)
[2021-10-01] MEDS: CHLORHEXIDINE GLUCONATE 15 ML UDC MM SCH ×2 (08:17→16:03)
[2021-10-01] MEDS: NYSTATIN TOP POWDER 15 GM BOTTLE TP SCH ×2 (08:17→16:03)
--- NOTE | 2021-10-01 09:05 | NUR ---
ICU/RN PT IS NPO.WAITING FOR COLONOSCOPY.G-TUBE MEDS ON HOLD .IV MEDS ARE GIVEN ORDERED.
[2021-10-01] MEDS: NOREPINEPHRINE 8 MG in IV NS 0.9% 242 ML IV PRN (10:18)
[2021-10-01] MEDS: TOBRAMYCIN 80 MG in IV D5W 50 ML IV PRN (13:08)
--- NOTE | 2021-10-01 13:10 | NUR ---
ICU/RN 1 UNIT PRBC GIVEN ORDERED.NO S/S OF REACTION.AFEBRILE. H/H ORDERED.
[2021-10-01 13:45] LABS: BAND % (MANUAL) 2 % (0.0-5.0); LYMPHOCYTES % (MANUAL) 4 % (16-48); MONOCYTES % (MANUAL) 6 % (0-11.0); NEUTROPHILS % (MANUAL) 88 (42-76)
[2021-10-01] MEDS: MICAFUNGIN SODIUM 100 MG in IV NS 0.9% 100 ML IV SCH (14:31)
[2021-10-01] MEDS ORDERED: DEXTROSE 50%-WATER 50 ML DISP.SYRIN IV PRN (15:00)
[2021-10-01 15:33] LABS: BASOPHILS # (AUTO) 0.2 K/uL (0.0-0.2); BASOPHILS % (AUTO) 0.6 % (0.0-2.0); EOSINOPHILS % (AUTO) 0.6 % (0.0-6.0); HEMATOCRIT 23 % (33-45); HEMOGLOBIN 7.7 g/dL (11.5-14.8); LYMPHOCYTES # (AUTO) 1.7 K/uL (0.8-4.8); MEAN CORPUSCULAR HGB CONC 33 g/dl (31.0-36.0); MEAN CORPUSCULAR VOLUME 90 fL (82-100); MONOCYTES # (AUTO) 2.2 K/uL (0.1-1.30); MONOCYTES % (AUTO) 7.8 % (2.0-12.0); NEUTROPHILS # (AUTO) 23.7 K/uL (1.8-8.9); PLATELET COUNT (AUTO) 343 K/uL (150-450); RED BLOOD CELL COUNT(AUTO) 2.57 MIL/uL (4.0-5.2); WHITE BLOOD COUNT (AUTO) 27.8 K/uL (4.3-11.0)
--- NOTE | 2021-10-01 15:45 | NUR ---
ICU/RN PM CARE PROVIDED. PT HAS YELLOW LIQUID STOOL.NO S/S OF BLEEDING NOTED.WOUND DRESSING DONE ORDERED.DUE MEDS ARE GIVEN.CONTINUE MONITORING
[2021-10-01] MEDS: CEFTAZIDIME/AVIBACTAM 0.94 GM in IV NS 0.9% 100 ML IV SCH (15:49)
[2021-10-01] MEDS: BLOOD SUGAR DIAGNOSTIC 1 EACH STRIP IN SCH (17:09)
[2021-10-01 18:26] LABS: HEMOGLOBIN 7.5 g/dL (11.5-14.8)
--- NOTE | 2021-10-01 18:40 | NUR ---
ICU/MACHINE GUNNER TALK TO DR LYONS AT BEDSIDE.COLONOSCOPY CANCELED.PT HAS NO ACTIVE BLEEDING. STILL ON LEVOPHED DRIP.CONTINUE MONITORING.
--- NOTE | 2021-10-01 19:30 | NUR ---
ICU/RN: RECEIVED PT IN BED, EYES CLOSED, OBTUNDED, NONVERBAL. PT ON TRACH PORTEX #7 VENT SETTING ORDERED AC 14 TV 500 FIO2 30% PEEP 0 TOLERATING WELL. IV SITE: XIOMARA PICC INFUSING NS LEVO @0.04MCG/KG/MIN. PERMA-CATH ON R-CHEST WALL INTACT DRESSING CDI. GTUBE CLAMPED. F/C IN PLACE SCANT TEA COLORED URINE DRAINING. TELE READING SR, SAFETY MEASURES IN PLACE, BED IN LOWEST LOCKED POSITION, S/R UPX2, CALL LIGHT WITHIN REACH. WILL CONT TO MONITOR.
[2021-10-01 20:09] LABS: LYMPHOCYTES % (MANUAL) 8 % (16-48); MONOCYTES % (MANUAL) 5 % (0-11.0); NEUTROPHILS % (MANUAL) 87 (42-76)
--- NOTE | 2021-10-01 21:30 | NUR ---
TELE/RN: DAUGHTER AT BEDSIDE GIVEN UPDATE. Addendum: 10/01/21 at 2157 by DAYA REY RN ICU/RN: NOT TELE
[2021-10-01] MEDS: LATANOPROST EYE DROP 0.005% 2.5 ML BOTTLE OP SCH (21:40)
--- NOTE | 2021-10-01 21:53 | NUR ---
ICU/RN: CRITICAL RESULTS GRAM POSITIVE COCCI IN BLOOD REPORTED TO ELLEN DELGADO. NO NEW ABX ORDERS. OK TO RESUME GTUBE FEEDING SINCE COLONOSCOPY WAS CANCELED.
[2021-10-02] VITALS (70 sets, daily range): BP systolic 91–183; BP diastolic 32–97
[2021-10-02] MEDS: METOCLOPRAMIDE HCL 10 MG/2 ML VIAL IV SCH ×3 (00:11→16:08)
[2021-10-02] MEDS: VANCOMYCIN HCL 125 MG/2.5 ML ORAL.SUSP GT SCH ×4 (00:11→17:13)
[2021-10-02] MEDS: BLOOD SUGAR DIAGNOSTIC 1 EACH STRIP IN SCH ×4 (00:12→17:05)
[2021-10-02] MEDS: NEPRO 1,000 ML BOTTLE GT PRN (00:56)
[2021-10-02] MEDS: ACETAMINOPHEN 325 MG TABLET PO PRN ×3 (00:56→21:35)
[2021-10-02] MEDS: IPRATROPIUM NEB FS 0.5 MG/2.5 ML AMPUL.NEB IH SCH ×4 (01:02→20:08)
[2021-10-02 04:42] LABS: BASOPHILS # (AUTO) 0.1 K/uL (0.0-0.2); BASOPHILS % (AUTO) 0.5 % (0.0-2.0); EOSINOPHILS % (AUTO) 1.4 % (0.0-6.0); HEMATOCRIT 22 % (33-45); HEMOGLOBIN 7.2 g/dL (11.5-14.8); LYMPHOCYTES # (AUTO) 1.6 K/uL (0.8-4.8); LYMPHOCYTES % (AUTO) 6.1 % (20.0-44.0); MEAN CORPUSCULAR HGB CONC 34 g/dl (31.0-36.0); MEAN CORPUSCULAR VOLUME 91 fL (82-100); MONOCYTES # (AUTO) 2.6 K/uL (0.1-1.30); MONOCYTES % (AUTO) 10.1 % (2.0-12.0); NEUTROPHILS # (AUTO) 21.2 K/uL (1.8-8.9); NEUTROPHILS % (AUTO) 81.9 % (43.0-81.0); PLATELET COUNT (AUTO) 344 K/uL (150-450); RED BLOOD CELL COUNT(AUTO) 2.35 MIL/uL (4.0-5.2); WHITE BLOOD COUNT (AUTO) 25.9 K/uL (4.3-11.0)
[2021-10-02 05:11] LABS: CALCIUM, SERUM 8.6 mg/dL (8.5-10.1); CARBON DIOXIDE 20 mmol/L (21-32); CHLORIDE 97 mmol/L (98-107); CREATININE 2.3 mg/dL (0.6-1.3); GLUCOSE 178 mg/dL (74-106); POTASSIUM 4.1 mmol/L (3.5-5.1); SODIUM SERUM 136 mmol/L (136-145)
[2021-10-02] MEDS: PHENYTOIN SODIUM IV 100 MG/2ML VIAL IV SCH ×3 (05:32→21:22)
[2021-10-02 05:38] LABS: UREA NITROGEN, BLOOD 84 mg/dL (7-18)
[2021-10-02] MEDS: INSULIN REGULAR, HUMAN 100 UNIT/ML 3 ML VIAL SQ PRN ×3 (05:49→18:21)
[2021-10-02] MEDS: CHOLESTYRAMINE/ASPARTAME 4 G/PKT PACKET PO SCH ×2 (08:31→21:11)
[2021-10-02] MEDS: CHLORHEXIDINE GLUCONATE 15 ML UDC MM SCH ×2 (08:31→17:05)
[2021-10-02] MEDS: PANTOPRAZOLE 40 MG VIAL IV SCH (08:31)
[2021-10-02] MEDS: ASCORBIC ACID 500 MG TABLET GT SCH (08:31)
[2021-10-02] MEDS: PHENOBARBITAL 30 MG TABLET PO SCH ×2 (08:31→17:14)
[2021-10-02] MEDS: ARGININE/GLUTAMINE/CALCIUM BMB 1 EACH POWD.PACK GT SCH ×2 (08:32→17:05)
[2021-10-02] MEDS: PROSOURCE / PROSTAT (PYXIS) 30 ML UDC GT SCH ×2 (08:32→17:05)
[2021-10-02] MEDS: DORZOLAMIDE OPTH 2% 10 ML BOTTLE OP SCH ×2 (08:33→14:24)
[2021-10-02] MEDS: NYSTATIN TOP POWDER 15 GM BOTTLE TP SCH ×2 (08:35→17:05)
[2021-10-02] MEDS: DAKINS QUARTER STRENGTH (0.125%) 480 ML BOTTLE TOP SCH (08:37)
[2021-10-02] MEDS: CLOTRIMAZOLE 1% 15 GM TUBE TP SCH ×2 (08:38→14:26)
[2021-10-02] MEDS: CARVEDILOL 12.5 MG TABLET PO SCH ×2 (08:38→21:34)
[2021-10-02] MEDS ORDERED: DAPTOMYCIN 500 MG in IV NS 0.9% 50 ML IV SCH (09:00)
[2021-10-02] MEDS: ALBUMIN 25% 25 GM in PREMIX 1 EA IV PRN (09:05)
[2021-10-02] MEDS: SEVELAMER CARBONATE 800 MG POWD.PACK GT SCH ×3 (09:06→17:13)
[2021-10-02] MEDS: NOREPINEPHRINE 8 MG in IV NS 0.9% 242 ML IV PRN (10:17)
[2021-10-02 13:55] LABS: BAND % (MANUAL) 1 % (0.0-5.0); EOSINOPHILS % (MANUAL) 2 % (0-4); LYMPHOCYTES % (MANUAL) 7 % (16-48); MONOCYTES % (MANUAL) 11 % (0-11.0); NEUTROPHILS % (MANUAL) 79 (42-76)
[2021-10-02] MEDS: MICAFUNGIN SODIUM 100 MG in IV NS 0.9% 100 ML IV SCH (14:23)
[2021-10-02] MEDS: MIDODRINE HCL (5MG) 5 MG TABLET PO PRN (14:25)
[2021-10-02] MEDS: EPOETIN ALFA (4000 UNIT) 4,000 UNIT/ML VIAL IV SCH (16:09)
--- NOTE | 2021-10-02 18:00 | NUR ---
ICU/RN PM CARE PROVIDED.WOUND DRESSING DONE ORDERED.PT HAS MULTIPLY LIQUID BM .DUE MEDS ARE GIVEN ORDERED.SUCTION PROVIDED.REPOSITION FOR COMFORT.
[2021-10-02 18:40] LABS: HEMOGLOBIN 6.8 g/dL (11.5-14.8)
--- NOTE | 2021-10-02 18:45 | NUR ---
ICU/RN H/H-6.8. NO ACTIVE BLEEDING .MD NOTIFIED.2 UNITS PRBC ORDERED.
[2021-10-02] MEDS ORDERED: VASOPRESSIN INJ 20 UNIT/ML VIAL ONE ×2 (19:57→20:09)
--- NOTE | 2021-10-02 20:00 | NUR ---
ICU/RN: RECEIVED PT IN BED, EYES CLOSED, OBTUNDED, NONVERBAL. PT ON TRACH PORTEX #7 VENT SETTING ORDERED AC 14 TV 500 FIO2 30% PEEP 0 TOLERATING WELL. IV SITE: XIOMARA PICC INTACT AND PATENT . PERMA-CATH ON R-CHEST WALL INTACT DRESSING, GTUBE NEPHRO 1.8 AT 40CC/HR F/C IN PLACE SCANT TEA COLORED URINE DRAINING. TELE READING SR, SAFETY MEASURES IN PLACE, BED IN LOWEST LOCKED POSITION, S/R UPX2, CALL LIGHT WITHIN REACH. DAUGHTER AT BEDSIDE MADE AWARE OF BLOOD TRANSFUSION ORDER OF 2 NITS PRBC V/S STABLE AFEBRILE.WILL CONT TO MONITOR.
--- NOTE | 2021-10-02 21:00 | NUR ---
DENTURES LAB TECHNICIAN NOTES DUE MEDS GIVEN ORDERED WITH ASE NOTED , TEMP CHECK 100.6 COOLING MEASURES APPLIED , TYLENOL 650MG GIVEN ORDERED WILL CONTINUE TO MONITOR PTS.
[2021-10-02] MEDS: TOBRAMYCIN 80 MG in IV D5W 50 ML IV PRN (21:05)
--- NOTE | 2021-10-02 21:30 | NUR ---
regulatory attorney notes spoke to marsha from [facility] re 2 units prbc ordered , she said she can issue 1 unit 0nly ,shes leaving at 10pm so nobody can issue the 2nd unit of prbc , elastic attacher zigzag sonia genao made aware . 2nd unit of prbc will be given [facility] elaine will endorse to rn day shift .
--- NOTE | 2021-10-02 21:59 | NUR ---
COMMUNITY OUTREACH ADVOCATE NOTES IST UNIT OF PRBC STARTED WITH NO ASE NOTED . CHECKED WITH RN RIO , TEMP AT THIS TIME IS 99.5 WILL CONTINUE TO MONITOR PTS.
[2021-10-02] MEDS: LATANOPROST EYE DROP 0.005% 2.5 ML BOTTLE OP SCH (22:27)
--- NOTE | 2021-10-02 22:32 | NUR ---
LAB AIDE. CHA PULLED OUT UNDER THIS PT NAME. NOT GIVEN.{ ACTUALLY FOR PT ROOM 251 NEED. }
[2021-10-03] VITALS (23 sets, daily range): BP systolic 90–132; BP diastolic 34–71
[2021-10-03] MEDS: VANCOMYCIN HCL 125 MG/2.5 ML ORAL.SUSP GT SCH ×4 (00:27→17:12)
[2021-10-03] MEDS: METOCLOPRAMIDE HCL 10 MG/2 ML VIAL IV SCH ×3 (00:27→15:01)
--- NOTE | 2021-10-03 00:40 | NUR ---
agricultural science professor notes ist unit prbc completed at 0040hrs , no ase noted.
[2021-10-03] MEDS: INSULIN REGULAR, HUMAN 100 UNIT/ML 3 ML VIAL SQ PRN ×4 (01:09→17:32)
[2021-10-03] MEDS: BLOOD SUGAR DIAGNOSTIC 1 EACH STRIP IN SCH ×4 (01:10→17:13)
--- NOTE | 2021-10-03 01:12 | NUR ---
agricultural science professor notes Blood sugar at 12 mn is 178 =3 units of regular insulin given per sliding scale ,pts on gt feeding.
[2021-10-03] MEDS: IPRATROPIUM NEB FS 0.5 MG/2.5 ML AMPUL.NEB IH SCH ×4 (01:44→20:42)
[2021-10-03] MEDS: PHENYTOIN SODIUM IV 100 MG/2ML VIAL IV SCH ×3 (04:48→22:25)
[2021-10-03 05:50] LABS: BASOPHILS # (AUTO) 0.1 K/uL (0.0-0.2); BASOPHILS % (AUTO) 0.4 % (0.0-2.0); EOSINOPHILS % (AUTO) 0.8 % (0.0-6.0); HEMATOCRIT 23 % (33-45); HEMOGLOBIN 7.5 g/dL (11.5-14.8); LYMPHOCYTES # (AUTO) 1.1 K/uL (0.8-4.8); LYMPHOCYTES % (AUTO) 6.3 % (20.0-44.0); MEAN CORPUSCULAR HGB CONC 33 g/dl (31.0-36.0); MEAN CORPUSCULAR VOLUME 92 fL (82-100); MONOCYTES # (AUTO) 1.7 K/uL (0.1-1.30); MONOCYTES % (AUTO) 9.7 % (2.0-12.0); NEUTROPHILS # (AUTO) 14.7 K/uL (1.8-8.9); NEUTROPHILS % (AUTO) 82.8 % (43.0-81.0); PLATELET COUNT (AUTO) 260 K/uL (150-450); RED BLOOD CELL COUNT(AUTO) 2.45 MIL/uL (4.0-5.2); WHITE BLOOD COUNT (AUTO) 17.7 K/uL (4.3-11.0)
[2021-10-03 05:53] LABS: ALANINE AMINOTRANSFERASE 53 U/L (12-78); ALBUMIN 1.5 g/dL (3.4-5.0); ALKALINE PHOSPHATASE 335 U/L (46-116); ASPARTATE AMINOTRANSFERASE 41 U/L (15-37); BILIRUBIN,TOTAL 0.4 mg/dL (0.2-1.0); CALCIUM, SERUM 8.3 mg/dL (8.5-10.1); CARBON DIOXIDE 22 mmol/L (21-32); CHLORIDE 100 mmol/L (98-107); CREATININE 1.6 mg/dL (0.6-1.3); GLUCOSE 173 mg/dL (74-106); MAGNESIUM 2.3 mg/dL (1.8-2.4); PHOSPHORUS 2.4 mg/dL (2.5-4.9); SODIUM SERUM 137 mmol/L (136-145); UREA NITROGEN, BLOOD 52 mg/dL (7-18)
[2021-10-03] MEDS: NEPRO 1,000 ML BOTTLE GT PRN (05:53)
--- NOTE | 2021-10-03 05:56 | NUR ---
silviculture forester notes Blood sugar at 6am is 166 =3 units of regular insulin given per sliding scale.
[2021-10-03 06:35] LABS: POTASSIUM 2.8 mmol/L (3.5-5.1)
--- NOTE | 2021-10-03 06:47 | NUR ---
RN NOTES RECEIVED CRITICAL LAB RESULT; K:2.8 . ONCERYN CONDE ( RAJIV, PROJECT LEAD) NOTIFIED. NO NEW ORDERS. PT FOLLOWED BY NEPHRO. CONSTRUCTION MILLWRIGHT MADE AWARE
--- NOTE | 2021-10-03 07:00 | NUR ---
RN NOTES ENDORSED TO AM SHIFT RN FOR OTIS.
--- NOTE | 2021-10-03 07:41 | NUR ---
RN NOTE PATIENT RECEIVED IN BED, ASLEEP. PATIENT ON MECHANICAL VENTILATION WITH NO SIGNS OF LABORED BREATHING AT THIS TIME AND SATURATING 100%. LEFT UA PICC IN PLACE, PATENT WITH NO SIGNS OF INFILTRATION. BED LOCKED AND IN LOWEST POSITION, CALL LIGHT WITHIN REACH, 3 SIDE RAILS UP. NO DISTRESS NOTED AT THIS TIME. WILL CONTINUE TO MONITOR.
[2021-10-03 08:06] LABS: LYMPHOCYTES % (MANUAL) 9 % (16-48); MONOCYTES % (MANUAL) 10 % (0-11.0); NEUTROPHILS % (MANUAL) 81 (42-76)
[2021-10-03] MEDS: CHLORHEXIDINE GLUCONATE 15 ML UDC MM SCH ×2 (08:36→17:12)
[2021-10-03] MEDS: ASCORBIC ACID 500 MG TABLET GT SCH (08:36)
[2021-10-03] MEDS: PHENOBARBITAL 30 MG TABLET PO SCH ×2 (08:36→17:12)
[2021-10-03] MEDS: SEVELAMER CARBONATE 800 MG POWD.PACK GT SCH ×3 (08:36→17:12)
[2021-10-03] MEDS: CHOLESTYRAMINE/ASPARTAME 4 G/PKT PACKET PO SCH ×2 (08:36→22:25)
[2021-10-03] MEDS: PANTOPRAZOLE 40 MG VIAL IV SCH (08:36)
[2021-10-03] MEDS: DORZOLAMIDE OPTH 2% 10 ML BOTTLE OP SCH ×2 (08:37→17:12)
[2021-10-03] MEDS: CARVEDILOL 12.5 MG TABLET PO SCH ×3 (08:38→22:25)
[2021-10-03] MEDS: NYSTATIN TOP POWDER 15 GM BOTTLE TP SCH ×2 (08:38→17:13)
[2021-10-03] MEDS: DAKINS QUARTER STRENGTH (0.125%) 480 ML BOTTLE TOP SCH (08:38)
[2021-10-03] MEDS: CLOTRIMAZOLE 1% 15 GM TUBE TP SCH ×2 (08:38→17:13)
[2021-10-03] MEDS: ARGININE/GLUTAMINE/CALCIUM BMB 1 EACH POWD.PACK GT SCH ×2 (08:45→17:12)
[2021-10-03] MEDS: PROSOURCE / PROSTAT (PYXIS) 30 ML UDC GT SCH ×2 (08:45→17:11)
[2021-10-03] MEDS: NS 0.9% IV SCH (09:11)
[2021-10-03] MEDS: DAPTOMYCIN IV SCH (09:11)
[2021-10-03] MEDS: POTASSIUM CL. PREMIX PERIPHER. 50 ML IV SCH ×4 (10:02→13:06)
[2021-10-03] MEDS: MICAFUNGIN SODIUM 100 MG in IV NS 0.9% 100 ML IV SCH (12:06)
[2021-10-03] MEDS: CEFTAZIDIME 1 G in IV D5W 50 ML IV SCH (14:25)
[2021-10-03] MEDS: ACETAMINOPHEN 325 MG TABLET PO PRN (17:39)
--- NOTE | 2021-10-03 19:36 | NUR ---
RN CLOSING NOTE PATIENT REMAINS IN BED, ASLEEP. PATIENT ON MECHANICAL VENTILATION WITH NO SIGNS OF LABORED BREATHING AT THIS TIME AND SATURATING 100%. LEFT UA PICC IN PLACE, PATENT WITH NO SIGNS OF INFILTRATION. BED LOCKED AND IN LOWEST POSITION, CALL LIGHT WITHIN REACH, 3 SIDE RAILS UP. NO DISTRESS NOTED AT THIS TIME. ALL NEEDS ATTENDED DURING SHIFT. WILL ENDORSE TO PERFORATOR LOADER NURSE.
[2021-10-03 20:03] LABS: HEMOGLOBIN 7.6 g/dL (11.5-14.8)
--- NOTE | 2021-10-03 22:30 | NUR ---
TRANSFER FROM ICU, OBTUNDED, VENTILATOR DEPENDENT, SPO2 100%, NO RESPIRATORY DISTRESS, NOT IN APPARENT PAIN, CALM. CHANGED DRESSING OF COCCYX, XIOMARA MIDLINE PATENT, RIGHT CHEST HD CATH, LAST HD 10/02/21, NO OUTPUT, CONTINUE MEDICATIONS, WOUND CARE.
[2021-10-03] MEDS: LATANOPROST EYE DROP 0.005% 2.5 ML BOTTLE OP SCH (22:46)
[2021-10-04] VITALS (7 sets, daily range): BP systolic 109–134; BP diastolic 39–63
[2021-10-04] MEDS: BLOOD SUGAR DIAGNOSTIC 1 EACH STRIP IN SCH ×5 (00:10→23:44)
[2021-10-04] MEDS: VANCOMYCIN HCL 125 MG/2.5 ML ORAL.SUSP GT SCH ×5 (00:10→23:44)
[2021-10-04] MEDS: METOCLOPRAMIDE HCL 10 MG/2 ML VIAL IV SCH ×4 (00:10→22:21)
[2021-10-04] MEDS: INSULIN REGULAR, HUMAN 100 UNIT/ML 3 ML VIAL SQ PRN ×3 (00:13→23:56)
[2021-10-04] MEDS: ACETAMINOPHEN 325 MG TABLET PO PRN ×2 (00:16→22:21)
[2021-10-04] MEDS: NEPRO 1,000 ML BOTTLE GT PRN ×2 (00:43→23:44)
[2021-10-04] MEDS: IPRATROPIUM NEB FS 0.5 MG/2.5 ML AMPUL.NEB IH SCH ×4 (01:46→19:54)
[2021-10-04] MEDS: PHENYTOIN SODIUM IV 100 MG/2ML VIAL IV SCH ×3 (04:57→22:21)
--- NOTE | 2021-10-04 06:02 | NUR ---
RN NOTES OBTUNDED, VENTILATOR ON CORRECT SETTING, NO RESPIRATORY DISTRESS, SPO2 100%, SUCTIONED PRN, ORAL CARE PERFORMED, WOUND CARE PERFORMED, XIOMARA MIDLINE HEPLOCK ONLY, FLUSHED, PEG TUBE FEEDING NEPRO AT 40 ML/HR, NO RESIDUAL, DETERMINED PLACEMENT, ACCUCHECK Q6HRS, BG AT 0600 116 NO COVERAGE, COREG NOT GIVEN PER DAUGHTER, HR GOES DOWN FROM 100S TO 74, CONTINUE WITH PLAN OF CARE, CONTINUE TOBRAMYCIN IV FOR SACRAL OSTEOMYELITIS AND EMPHYEMA X8 WEEKS, VANCOMYCIN VIA GT FOR CDIFF, CONTACT ENTERIC ISOLATION.
[2021-10-04 06:48] LABS: BASOPHILS # (AUTO) 0.1 K/uL (0.0-0.2); BASOPHILS % (AUTO) 0.3 % (0.0-2.0); EOSINOPHILS % (AUTO) 1.1 % (0.0-6.0); HEMATOCRIT 23 % (33-45); HEMOGLOBIN 7.4 g/dL (11.5-14.8); LYMPHOCYTES # (AUTO) 2.1 K/uL (0.8-4.8); LYMPHOCYTES % (AUTO) 10.3 % (20.0-44.0); MEAN CORPUSCULAR HGB CONC 33 g/dl (31.0-36.0); MEAN CORPUSCULAR VOLUME 94 fL (82-100); MONOCYTES % (AUTO) 10.1 % (2.0-12.0); NEUTROPHILS # (AUTO) 15.9 K/uL (1.8-8.9); NEUTROPHILS % (AUTO) 78.2 % (43.0-81.0); PLATELET COUNT (AUTO) 260 K/uL (150-450); RED BLOOD CELL COUNT(AUTO) 2.41 MIL/uL (4.0-5.2); WHITE BLOOD COUNT (AUTO) 20.3 K/uL (4.3-11.0)
[2021-10-04 07:53] LABS: CALCIUM, SERUM 8.8 mg/dL (8.5-10.1); CARBON DIOXIDE 20 mmol/L (21-32); CHLORIDE 98 mmol/L (98-107); CREATININE 1.9 mg/dL (0.6-1.3); GLUCOSE 119 mg/dL (74-106); MAGNESIUM 2.4 mg/dL (1.8-2.4); PHOSPHORUS 2.7 mg/dL (2.5-4.9); POTASSIUM 3.6 mmol/L (3.5-5.1); SODIUM SERUM 133 mmol/L (136-145)
--- NOTE | 2021-10-04 07:57 | NUR ---
REFUELING RAMPMAN OPENING NOTE Patient is obtunded. On mechanical ventilator Portex 7, with the following settings: AC 14; TV 500; FiO@ 30%; PEEP 0. Patient tolerating settings well. IV access on XIOMARA PICC, intact and patent. Right chest HD cath in place. Herring catheter in place. On GT feeding Nepro at 40 ml/hr. On tele monitoring showing SR, HR on the 70's. Safety precautions in place: bed in low, locked position; siderails up x 2; call light within reach. Will continue to monitor.
--- NOTE | 2021-10-04 08:40 | NUR ---
RN NOTE Received call from lulu Pastor for critical value. BUN 85. notified.
[2021-10-04 08:41] LABS: UREA NITROGEN, BLOOD 85 mg/dL (7-18)
[2021-10-04] MEDS: CARVEDILOL 12.5 MG TABLET PO SCH ×2 (09:00→21:00)
--- NOTE | 2021-10-04 09:00 | NUR ---
RN NOTE Patient's daughter refused BP meds for patient. Filiberto, Charge nurse aware.
[2021-10-04] MEDS: ASCORBIC ACID 500 MG TABLET GT SCH (09:09)
[2021-10-04] MEDS: SEVELAMER CARBONATE 800 MG POWD.PACK GT SCH ×3 (09:09→17:20)
[2021-10-04] MEDS: CHOLESTYRAMINE/ASPARTAME 4 G/PKT PACKET PO SCH ×2 (09:09→22:22)
[2021-10-04] MEDS: PANTOPRAZOLE 40 MG VIAL IV SCH (09:09)
[2021-10-04] MEDS: CHLORHEXIDINE GLUCONATE 15 ML UDC MM SCH ×2 (09:10→17:20)
[2021-10-04] MEDS: PHENOBARBITAL 30 MG TABLET PO SCH ×2 (09:10→17:20)
[2021-10-04] MEDS: PROSOURCE / PROSTAT (PYXIS) 30 ML UDC GT SCH ×2 (09:11→17:21)
[2021-10-04] MEDS: ARGININE/GLUTAMINE/CALCIUM BMB 1 EACH POWD.PACK GT SCH ×2 (09:12→17:21)
[2021-10-04] MEDS: DORZOLAMIDE OPTH 2% 10 ML BOTTLE OP SCH ×2 (09:13→17:38)
[2021-10-04] MEDS: NYSTATIN TOP POWDER 15 GM BOTTLE TP SCH ×2 (09:34→17:37)
[2021-10-04] MEDS: CLOTRIMAZOLE 1% 15 GM TUBE TP SCH ×2 (09:34→17:37)
[2021-10-04] MEDS: DAKINS QUARTER STRENGTH (0.125%) 480 ML BOTTLE TOP SCH (10:13)
--- NOTE | 2021-10-04 12:00 | NUR ---
RN NOTE Patient's BS is 110, no Insulin coverage needed. Addendum: 10/04/21 at 1317 by KIRSTIE COLES RN CORRECTION: BS is 127
[2021-10-04] MEDS: MICAFUNGIN SODIUM 100 MG in IV NS 0.9% 100 ML IV SCH (12:16)
[2021-10-04 18:24] LABS: HEMOGLOBIN 7.7 g/dL (11.5-14.8)
--- NOTE | 2021-10-04 18:28 | NUR ---
RN NOTE Patient's BS is 119, no Insulin coverage needed.
--- NOTE | 2021-10-04 18:57 | NUR ---
SUPERVISOR BILLPOSTING CLOSING NOTE Patient is obtunded. On mechanical ventilator Portex 7, with the following settings: AC 14; TV 500; FiO@ 30%; PEEP 0. Patient tolerating settings well. IV access on XIOMARA PICC; intact, patent, and flushes well. Right chest HD cath in place. Herring catheter in place, draining to an tabitha colored urine. On GT feeding Nepro at 40 ml/hr. On tele monitoring showing SR, HR on the 70's. Needs attended to. Due meds given. Wound care done, as ordered. Safety precautions maintained: bed in low, locked position; siderails up x 2; call light within reach. Will endorse to maintenance technician 2nd shift nurse for OTIS.
--- NOTE | 2021-10-04 20:00 | NUR ---
RECEIVED PATIENT IN BED, VENTILATOR DEPENDENT, NO RESPIRATORY DISTRESS, OBTUNDED, XIOMARA MIDLINE, PROCTOR CATHETER, PEG TUBE FEEDING, NO RESIDUAL, NEPRO AT 40 ML/HR, TOLERATING WELL, KEPT HOB ELEVATED, ASPIRATION PRECAUTION, CONTACT ISOLATION, CDIFF POSITIVE, WILL CONTINUE TO MONITOR.
[2021-10-04] MEDS: LATANOPROST EYE DROP 0.005% 2.5 ML BOTTLE OP SCH (22:22)
[2021-10-05] VITALS: BP 131/49
[2021-10-05] MEDS: IPRATROPIUM NEB FS 0.5 MG/2.5 ML AMPUL.NEB IH SCH ×4 (01:36→20:14)
[2021-10-05 04:00] VITALS: BP 153/75
[2021-10-05] MEDS: PHENYTOIN SODIUM IV 100 MG/2ML VIAL IV SCH ×3 (04:57→22:00)
[2021-10-05] MEDS: VANCOMYCIN HCL 125 MG/2.5 ML ORAL.SUSP GT SCH ×4 (05:01→23:01)
[2021-10-05] MEDS: BLOOD SUGAR DIAGNOSTIC 1 EACH STRIP IN SCH ×4 (05:01→23:01)
[2021-10-05] MEDS: INSULIN REGULAR, HUMAN 100 UNIT/ML 3 ML VIAL SQ PRN ×2 (06:25→17:28)
--- NOTE | 2021-10-05 07:02 | NUR ---
PATIENT STABLE ON VENTILATOR, NO RESPIRATORY DISTRESS, VS STABLE, TEMPERATURE FLUCTUATES, GIVEN TYLENOL TO KEEP TEMPERATURE BELOW 100F, WOUND CARE PERFORMED, PROCTOR CATHETER NO OUTPUT, PEG TUBE FEEDING NEPRO AT 40 ML/HR TOLERATED WELL, PER DR HUSAIN, PROGNOSIS NOT GOOD, RECOMMENDS BIO-ETHICS CONSULT.
[2021-10-05 07:11] LABS: CALCIUM, SERUM 8.7 mg/dL (8.5-10.1); CARBON DIOXIDE 18 mmol/L (21-32); CHLORIDE 97 mmol/L (98-107); CREATININE 2.3 mg/dL (0.6-1.3); GLUCOSE 122 mg/dL (74-106); POTASSIUM 3.8 mmol/L (3.5-5.1); SODIUM SERUM 134 mmol/L (136-145)
[2021-10-05 07:17] LABS: UREA NITROGEN, BLOOD 90 mg/dL (7-18)
--- NOTE | 2021-10-05 07:59 | NUR ---
MANAGER INTERFACE OPENING NOTE RECEIVED PATIENT IN BED, OBTUNDED, VENT DEPENDENT, TOLERATING VENT SETTINGS WELL AT THIS TIME. TELE MONITOR WITH A CURRENT READING OF SR 73. NO S/S OF DISTRESS. NO S/S OF PAIN SUCH FACIAL GRIMACING, MOANING OR GUARDING NOTED. PICC LINE PRESENT IN XIOMARA, FLUSHING WELL. R CHEST HD CATH PRESENT. PROCTOR CATH INTACT DRAINING ANNA COLOR URINE. PATIENT IS ON G-TUBE FEEDING NEPRO RUNNING AT 40 MLS/HR. SAFETY PRECAUTIONS IN PLACE; BED IN LOW POSITION AND LOCKED, RAILS UP X2, CALL LIGHT WITHIN REACH. WILL CONTINUE TO MONITOR PATIENT.
--- NOTE | 2021-10-05 08:40 | NUR ---
DENTAL FRONT OFFICE ASSISTANT NOTES LAB CALLED WITH A CRITICAL FOR HGB OF 4.6 MD NOTIFIED. ORDER FOR REDRAW TO DOUBLE CHECK. YESTERDAY AT 1800 HGB 7.7 NO BLEEDING NOTED. PER FIRE LOOKOUT NURSE PATIENT DID NOT BLEED EITHER.
[2021-10-05] MEDS: CARVEDILOL 12.5 MG TABLET PO SCH ×2 (09:00→21:00)
--- NOTE | 2021-10-05 09:00 | NUR ---
FILTER CHANGING TECHNICIAN NOTES CALLED LAB TO REDRAW AFTER TECH WAS NOT ABLE TO DRAW
[2021-10-05] MEDS: CHLORHEXIDINE GLUCONATE 15 ML UDC MM SCH ×2 (09:08→16:30)
[2021-10-05] MEDS: CHOLESTYRAMINE/ASPARTAME 4 G/PKT PACKET PO SCH ×2 (09:08→22:00)
[2021-10-05] MEDS: DAKINS QUARTER STRENGTH (0.125%) 480 ML BOTTLE TOP SCH (09:09)
[2021-10-05] MEDS: CLOTRIMAZOLE 1% 15 GM TUBE TP SCH ×2 (09:09→16:35)
[2021-10-05] MEDS: NYSTATIN TOP POWDER 15 GM BOTTLE TP SCH ×2 (09:09→16:35)
[2021-10-05] MEDS: DORZOLAMIDE OPTH 2% 10 ML BOTTLE OP SCH ×2 (09:10→16:35)
[2021-10-05 09:17] VITALS: BP 142/57
[2021-10-05] MEDS: DAPTOMYCIN IV SCH (09:27)
[2021-10-05] MEDS: NS 0.9% IV SCH (09:27)
--- NOTE | 2021-10-05 09:40 | NUR ---
REGISTRATION SPECIALIST NOTES CALLED LAB AGAIN FOR REDRAW. SOMEONE IS ON THE WAY.
[2021-10-05] MEDS: ASCORBIC ACID 500 MG TABLET GT SCH (09:54)
[2021-10-05] MEDS: SEVELAMER CARBONATE 800 MG POWD.PACK GT SCH ×3 (09:54→17:29)
[2021-10-05] MEDS: PANTOPRAZOLE 40 MG VIAL IV SCH (09:54)
[2021-10-05] MEDS: PHENOBARBITAL 30 MG TABLET PO SCH ×2 (09:54→16:34)
[2021-10-05] MEDS: METOCLOPRAMIDE HCL 10 MG/2 ML VIAL IV SCH ×3 (09:55→23:01)
[2021-10-05] MEDS: ARGININE/GLUTAMINE/CALCIUM BMB 1 EACH POWD.PACK GT SCH ×2 (09:56→16:34)
[2021-10-05] MEDS: PROSOURCE / PROSTAT (PYXIS) 30 ML UDC GT SCH ×2 (09:56→16:34)
--- NOTE | 2021-10-05 10:05 | NUR ---
BASIC SCIENCES DEAN NOTES HD NURSE IS HERE TO START HEMODIALYSIS. VS WNL BP 143/56 HR 72 SATURATION 100%
--- NOTE | 2021-10-05 10:10 | NUR ---
ANESTHESIA ASSISTANT NOTES CALLED LAB AGAIN AFTER NO ONE SHOWED UP. STILL WAITING.
[2021-10-05] MEDS ORDERED: EPOETIN ALFA (10,000 UNIT) 10,000 UNIT/ML VIAL IV ONE (10:30)
--- NOTE | 2021-10-05 10:34 | NUR ---
SIGN LETTERER NOTES [facility] CALLED WITH A CRITICAL OF TOBRAMYCIN OF 2.5 WILL NOTIFY
[2021-10-05 10:58] LABS: BASOPHILS # (AUTO) 0.1 K/uL (0.0-0.2); BASOPHILS % (AUTO) 1.1 % (0.0-2.0); EOSINOPHILS % (AUTO) 1.8 % (0.0-6.0); HEMATOCRIT 25 % (33-45); LYMPHOCYTES # (AUTO) 0.9 K/uL (0.8-4.8); LYMPHOCYTES % (AUTO) 6.9 % (20.0-44.0); MEAN CORPUSCULAR HGB CONC 32 g/dl (31.0-36.0); MEAN CORPUSCULAR VOLUME 94 fL (82-100); MONOCYTES # (AUTO) 1.1 K/uL (0.1-1.30); MONOCYTES % (AUTO) 8.1 % (2.0-12.0); NEUTROPHILS # (AUTO) 10.9 K/uL (1.8-8.9); NEUTROPHILS % (AUTO) 82.1 % (43.0-81.0); PLATELET COUNT (AUTO) 290 K/uL (150-450); RED BLOOD CELL COUNT(AUTO) 2.67 MIL/uL (4.0-5.2); WHITE BLOOD COUNT (AUTO) 13.3 K/uL (4.3-11.0)
--- NOTE | 2021-10-05 11:22 | NUR ---
CENTRIFUGE SEPARATOR TENDER NOTES REDRAW DONE. HGB AT 8 HTC AT 25 MD MADE AWARE
[2021-10-05] MEDS: MICAFUNGIN SODIUM 100 MG in IV NS 0.9% 100 ML IV SCH (11:37)
[2021-10-05 12:00] VITALS: BP 151/94
--- NOTE | 2021-10-05 12:56 | NUR ---
RADIO OPERATOR GROUND NOTES HD FINISHED. VS WNL: BP 152/63 HR 85 SATURATION 100%
[2021-10-05] MEDS: CEFTAZIDIME 1 G in IV D5W 50 ML IV SCH (15:12)
--- NOTE | 2021-10-05 15:49 | NUR ---
AREA ATTENDANT NOTES PER PHARMACY 1030 EPOETIN 10,000 UNITS IS NO LONGER ADMINISTERED. AT THIS TIME THE DOSE IS 4000 UNITS. WAITING FOR THE PHARMACY TO DELIVER THE MEDICATION.
[2021-10-05] MEDS: ACETAMINOPHEN 325 MG TABLET PO PRN (16:53)
[2021-10-05] MEDS: EPOETIN ALFA (4000 UNIT) 4,000 UNIT/ML VIAL IV SCH (16:56)
--- NOTE | 2021-10-05 16:58 | NUR ---
EPILEPSY PHYSICIAN NOTES PATIENT NOTED WITH FEVER 100.3 PRN TYLENOL ADMINISTERED.
--- NOTE | 2021-10-05 17:50 | NUR ---
DYSLEXIA TEACHER NOTES REASSESSED FEVER. PATIENT CONTINUED TO SWEAT AND BE PINK. FEVER 101.5 COOLING MEASURED APPLIED. SHEETS REMOVED, ICE BAGS APPLIED.
--- NOTE | 2021-10-05 18:40 | NUR ---
OPTICAL ENGINEER NOTES PATIENT LOOKS BETTER. REASSESSED TEMP. TEMP GOING DOWN 99.8
--- NOTE | 2021-10-05 18:48 | NUR ---
ENGINEERING DESIGN MANAGER CLOSING NOTE PATIENT REMAINS IN BED, OBTUNDED, VENT DEPENDENT, TOLERATING VENT SETTINGS WELL AT THIS TIME. TELE MONITOR WITH A CURRENT READING OF SR 93. NO S/S OF DISTRESS. NO S/S OF PAIN SUCH FACIAL GRIMACING, MOANING OR GUARDING NOTED. PICC LINE PRESENT IN XIOMARA, FLUSHING WELL. R CHEST HD CATH PRESENT. PROCTOR CATH INTACT DRAINING ANNA COLOR URINE WITH MINIMAL OUTPUT OF 20 MLS. PATIENT IS ON G-TUBE FEEDING NEPRO RUNNING AT 40 MLS/HR. ALL NEEDS ATTENDED DURING THE DAY. SAFETY PRECAUTIONS IN PLACE; BED IN LOW POSITION AND LOCKED, RAILS UP X2, CALL LIGHT WITHIN REACH. WILL ENDORSE TO COMPUTER SYSTEMS MANAGER NURSE FOR OTIS.
--- NOTE | 2021-10-05 19:20 | NUR ---
TELE/RN OPENING NOTE RECEIVED PATIENT RESTING IN BED. NON-VERBAL AT BASELINE. EYES OPEN. DAUGHTER AT BEDSIDE. PATIENT CONTINUES ON MECHANICAL VENTILATOR WITH PATIENT TOLERATING SETTINGS WELL. IV ACCESS TO LEFT UPPER ARM PICC LINE INTACT, PATENT AND SALINE LOCKED. CONTINUES ON IV ABX. RIGHT CHEST HD CATH IN PLACE. DRESSING IS CLEAN, DRY AND INTACT. PROCTOR CATHETER IN PLACE DRAINING ANNA COLORED URINE TO GRAVITY. CONTINUES WITH WOUND TX TO COCCYX. NEPRO RUNNING AT 40ML/HR. NO RESIDUAL NOTED AT THIS TIME. CONTINUES ON TELE MONITOR WITH CURRENT READING ST HR 103. CALL LIGHT WITHIN REACH. ASPIRATION, FALL AND SAFETY PRECAUTIONS MAINTAINED. WILL CONTINUE TO MONITOR.
[2021-10-05 20:00] VITALS: BP 122/69
[2021-10-05] MEDS: TOBRAMYCIN 80 MG in IV D5W 50 ML IV PRN (22:00)
[2021-10-05] MEDS: LATANOPROST EYE DROP 0.005% 2.5 ML BOTTLE OP SCH (22:45)
[2021-10-06] VITALS: BP 142/59
[2021-10-06] MEDS: IPRATROPIUM NEB FS 0.5 MG/2.5 ML AMPUL.NEB IH SCH ×4 (01:53→19:25)
[2021-10-06 04:00] VITALS: BP 142/46
[2021-10-06] MEDS: PHENYTOIN SODIUM IV 100 MG/2ML VIAL IV SCH ×3 (05:24→21:15)
[2021-10-06] MEDS: BLOOD SUGAR DIAGNOSTIC 1 EACH STRIP IN SCH ×4 (05:24→23:57)
[2021-10-06] MEDS: NEPRO 1,000 ML BOTTLE GT PRN (05:24)
[2021-10-06] MEDS: VANCOMYCIN HCL 125 MG/2.5 ML ORAL.SUSP GT SCH ×4 (05:24→23:02)
--- NOTE | 2021-10-06 06:10 | NUR ---
MS/RN CLOSING NOTE PATIENT CURRENTLY RESTING IN BED. NON-VERBAL AT BASELINE. CONTINUES ON MECHANICAL VENTILATOR WITH PATIENT TOLERATING SETTINGS WELL. IV ACCESS TO LEFT UPPER ARM PICC LINE INTACT, PATENT AND SALINE LOCKED. CONTINUES ON IV ABX. RIGHT CHEST HD CATH IN PLACE. DRESSING IS CLEAN, DRY AND INTACT. PROCTOR CATHETER IN PLACE DRAINING ANNA COLORED URINE TO GRAVITY. CONTINUES WITH WOUND TX TO COCCYX. NEPRO RUNNING AT 40ML/HR. NO RESIDUAL NOTED AT THIS TIME. CONTINUES ON TELE MONITOR WITH CURRENT READING SR 75. CALL LIGHT WITHIN REACH. ASPIRATION, FALL AND SAFETY PRECAUTIONS MAINTAINED. WILL ENDORSE PLAN OF CARE TO ONCOMING SHIFT.
[2021-10-06 06:34] LABS: BASOPHILS # (AUTO) 0.1 K/uL (0.0-0.2); BASOPHILS % (AUTO) 0.4 % (0.0-2.0); EOSINOPHILS % (AUTO) 2.2 % (0.0-6.0); HEMATOCRIT 24 % (33-45); HEMOGLOBIN 8.2 g/dL (11.5-14.8); LYMPHOCYTES # (AUTO) 1.5 K/uL (0.8-4.8); LYMPHOCYTES % (AUTO) 10.8 % (20.0-44.0); MEAN CORPUSCULAR HGB CONC 34 g/dl (31.0-36.0); MEAN CORPUSCULAR VOLUME 93 fL (82-100); MONOCYTES # (AUTO) 1.6 K/uL (0.1-1.30); MONOCYTES % (AUTO) 11.3 % (2.0-12.0); NEUTROPHILS # (AUTO) 10.6 K/uL (1.8-8.9); NEUTROPHILS % (AUTO) 75.3 % (43.0-81.0); PLATELET COUNT (AUTO) 292 K/uL (150-450); RED BLOOD CELL COUNT(AUTO) 2.61 MIL/uL (4.0-5.2)
[2021-10-06 07:01] LABS: CALCIUM, SERUM 8.6 mg/dL (8.5-10.1); CARBON DIOXIDE 22 mmol/L (21-32); CHLORIDE 95 mmol/L (98-107); CREATININE 1.7 mg/dL (0.6-1.3); GLUCOSE 117 mg/dL (74-106); POTASSIUM 3.3 mmol/L (3.5-5.1); SODIUM SERUM 131 mmol/L (136-145); UREA NITROGEN, BLOOD 56 mg/dL (7-18)
--- NOTE | 2021-10-06 07:45 | NUR ---
DIRECTOR RADIO OPENING NOTE RECEIVED PATIENT IN BED, ASLEEP, VENT DEPENDENT, TOLERATING VENT SETTINGS WELL AT THIS TIME. TELE MONITOR WITH A CURRENT READING OF SR 70. NO S/S OF DISTRESS. NO S/S OF PAIN SUCH FACIAL GRIMACING, MOANING OR GUARDING NOTED. PICC LINE PRESENT IN XIOMARA, FLUSHING WELL. R CHEST HD CATH PRESENT. PROCTOR CATH INTACT DRAINING ANNA COLOR URINE PER GRAVITY. PATIENT IS ON G-TUBE FEEDING NEPRO RUNNING AT 40 MLS/HR. SAFETY PRECAUTIONS IN PLACE; BED IN LOW POSITION AND LOCKED, RAILS UP X2, CALL LIGHT WITHIN REACH. WILL CONTINUE TO MONITOR PATIENT.
[2021-10-06 08:00] VITALS: BP 143/37
[2021-10-06] MEDS: ARGININE/GLUTAMINE/CALCIUM BMB 1 EACH POWD.PACK GT SCH ×2 (08:35→16:30)
[2021-10-06] MEDS: PROSOURCE / PROSTAT (PYXIS) 30 ML UDC GT SCH ×2 (08:35→16:30)
[2021-10-06] MEDS: NYSTATIN TOP POWDER 15 GM BOTTLE TP SCH ×2 (08:36→16:31)
[2021-10-06] MEDS: CLOTRIMAZOLE 1% 15 GM TUBE TP SCH ×2 (08:36→16:31)
[2021-10-06] MEDS: DORZOLAMIDE OPTH 2% 10 ML BOTTLE OP SCH ×2 (08:36→16:31)
[2021-10-06] MEDS: CARVEDILOL 12.5 MG TABLET PO SCH ×2 (08:37→21:00)
[2021-10-06] MEDS: DAKINS QUARTER STRENGTH (0.125%) 480 ML BOTTLE TOP SCH (08:37)
[2021-10-06] MEDS: PANTOPRAZOLE 40 MG VIAL IV SCH (08:41)
[2021-10-06] MEDS: METOCLOPRAMIDE HCL 10 MG/2 ML VIAL IV SCH ×2 (08:41→15:31)
[2021-10-06] MEDS: SEVELAMER CARBONATE 800 MG POWD.PACK GT SCH ×3 (08:45→17:45)
[2021-10-06] MEDS: CHLORHEXIDINE GLUCONATE 15 ML UDC MM SCH ×2 (08:45→16:30)
[2021-10-06] MEDS: ASCORBIC ACID 500 MG TABLET GT SCH (08:46)
[2021-10-06] MEDS: PHENOBARBITAL 30 MG TABLET PO SCH ×2 (08:46→16:30)
[2021-10-06] MEDS: CHOLESTYRAMINE/ASPARTAME 4 G/PKT PACKET PO SCH ×2 (08:46→22:12)
[2021-10-06] MEDS ORDERED: POTASSIUM CL. PREMIX PERIPHER. 50 ML IV SCH (10:30)
[2021-10-06] MEDS: MICAFUNGIN SODIUM 100 MG in IV NS 0.9% 100 ML IV SCH (11:38)
[2021-10-06 12:30] VITALS: BP 136/72
[2021-10-06 16:00] VITALS: BP 140/68
--- NOTE | 2021-10-06 18:25 | NUR ---
MINCING MACHINE OPERATOR NOTES PATIENT HAD HER 3RD LOOSE BOWEL MOVEMENT TODAY. WITH 3RD BOWEL MOVEMENT THERE WERE TRACES OF BRIGHT RED BLOOD. CLEANED THE PATIENT. NOTIFIED MD. AWAITING ORDERS.
[2021-10-06] MEDS ORDERED: CELLULOSE,OXIDIZED 1 EACH EACH MC ONE (18:30)
--- NOTE | 2021-10-06 18:56 | NUR ---
VENEER PRODUCTION MACHINE OPERATOR CLOSING NOTE PATIENT REMAINS IN BED, ASLEEP, VENT DEPENDENT, TOLERATING VENT SETTINGS WELL AT THIS TIME. TELE MONITOR WITH A CURRENT READING OF SR 83. NO S/S OF DISTRESS. NO S/S OF PAIN SUCH FACIAL GRIMACING, MOANING OR GUARDING NOTED. PICC LINE PRESENT IN XIOMARA, FLUSHING WELL. R CHEST HD CATH PRESENT. PROCTOR CATH INTACT DRAINING ANNA COLOR URINE PER GRAVITY. PATIENT IS ON G-TUBE FEEDING NEPRO RUNNING AT 40 MLS/HR. ALL NEEDS ATTENDED DURING THE DAY. SAFETY PRECAUTIONS IN PLACE; BED IN LOW POSITION AND LOCKED, RAILS UP X2, CALL LIGHT WITHIN REACH. WILL ENDORSE TO HANDLE BAR ASSEMBLER NURSE FOR OT[facility].
[2021-10-06] MEDS ORDERED: CELLULOSE,OXIDIZED 1 PKT EACH MC ONE (19:00)
--- NOTE | 2021-10-06 19:40 | NUR ---
home demonstrator opening notes Pt is resting in bed comfortably accompanied by her daughter Charlotte. Pt is non verbal and able to open eyes. Pt is on vent trach with O2 sat is 100%. No SOB. No S/S of distress noted. XIOMARA midline is clean and intact. RCW permacath is clean and intact. Gtube feeding is running nephro 40 ml/hr with 0 residual. Pt tolerated well. Herring is intact and no urine. Tele monitor showed SR hr at 80. Safety precautions is maintained. Bed at low position, brakes locked, side rails upX3, hob elevated, bed alarm is on and call light is within reach. Will continue to monitor.
[2021-10-06 20:00] VITALS: BP 153/56
--- NOTE | 2021-10-06 21:00 | NUR ---
RN notes Pt's BP 153/56. Pt's daughter at the bedside. Informed Pt's daughter about Pt's BP. Pt's daughter Charlotte refused to have BP meds. Pt daughter stated "No BP meds because it will drop in the morning!" Explained risks and benefits. Pt's daughter keep refusing. Will continue to monitor.
[2021-10-06] MEDS ORDERED: ACETAMINOPHEN 325 MG TABLET ONE (21:17)
[2021-10-06] MEDS: ACETAMINOPHEN 325 MG TABLET PO PRN (21:18)
--- NOTE | 2021-10-06 21:18 | NUR ---
RN notes Pt's temp 100 F. administered tylenol 650mg/gtube/prn for fever. cooling measures is applied. Will continue to monitor.
[2021-10-06] MEDS: LATANOPROST EYE DROP 0.005% 2.5 ML BOTTLE OP SCH (22:53)
--- NOTE | 2021-10-06 23:00 | NUR ---
RN notes Pt's temp is 98.4 F. No S/S of distress noted. Will continue to monitor.
[2021-10-07] VITALS: BP 151/54
[2021-10-07] MEDS: INSULIN REGULAR, HUMAN 100 UNIT/ML 3 ML VIAL SQ PRN ×4 (00:24→17:42)
[2021-10-07] MEDS: METOCLOPRAMIDE HCL 10 MG/2 ML VIAL IV SCH ×3 (00:26→17:07)
[2021-10-07] MEDS: IPRATROPIUM NEB FS 0.5 MG/2.5 ML AMPUL.NEB IH SCH ×4 (01:52→20:36)
[2021-10-07 04:00] VITALS: BP 165/59
--- NOTE | 2021-10-07 04:35 | NUR ---
RN notes Called and spoke with pt's daughter Charlotte regarding Pt's BP 165/59 and pulse 70. Pt's daughter Charlotte refuses BP meds/prn for Pt. Charlotte stated "No BP meds!" My mom is going for dialysis in the morning!" Please let the morning nurse knows!" Explained risks and benefits. Charlotte keep refusing.
[2021-10-07] MEDS: VANCOMYCIN HCL 125 MG/2.5 ML ORAL.SUSP GT SCH ×3 (05:14→18:22)
[2021-10-07] MEDS: PHENYTOIN SODIUM IV 100 MG/2ML VIAL IV SCH ×3 (05:16→21:03)
[2021-10-07] MEDS: BLOOD SUGAR DIAGNOSTIC 1 EACH STRIP IN SCH ×3 (06:11→17:41)
--- NOTE | 2021-10-07 06:16 | NUR ---
RN notes Pt's BS 105 no coverage is given per level ordered. No S/S of distress noted. Will continue to monitor.
[2021-10-07 06:29] LABS: CALCIUM, SERUM 8.3 mg/dL (8.5-10.1); CARBON DIOXIDE 19 mmol/L (21-32); CHLORIDE 92 mmol/L (98-107); CREATININE 1.9 mg/dL (0.6-1.3); GLUCOSE 98 mg/dL (74-106); POTASSIUM 3.6 mmol/L (3.5-5.1); SODIUM SERUM 127 mmol/L (136-145); UREA NITROGEN, BLOOD 79 mg/dL (7-18)
--- NOTE | 2021-10-07 06:30 | NUR ---
autocad electrical designer closing notes Pt is resting in bed comfortably. Pt is non verbal and able to open eyes. Pt is on vent trach with O2 sat is 100%. No SOB. No S/S of distress noted. Routine meds were given as ordered. XIOMARA midline is clean and intact. RCW permacath is clean and intact. Gtube feeding is running nephro 40 ml/hr with 0 residual. Herring is intact and draining 20 ml.Tele monitor showed SR hr at 71. Wound care provided as ordered. Safety precautions is maintained. Bed at low position, brakes locked, side rails upX3, bed alarm is on and call light is within reach. Will endorse to am nurse for OTIS
[2021-10-07 07:02] LABS: BASOPHILS % (AUTO) 0.3 % (0.0-2.0); EOSINOPHILS % (AUTO) 2.2 % (0.0-6.0); HEMATOCRIT 23 % (33-45); HEMOGLOBIN 7.7 g/dL (11.5-14.8); LYMPHOCYTES # (AUTO) 1.3 K/uL (0.8-4.8); LYMPHOCYTES % (AUTO) 9.5 % (20.0-44.0); MEAN CORPUSCULAR HGB CONC 34 g/dl (31.0-36.0); MEAN CORPUSCULAR VOLUME 94 fL (82-100); MONOCYTES # (AUTO) 1.5 K/uL (0.1-1.30); MONOCYTES % (AUTO) 10.6 % (2.0-12.0); NEUTROPHILS # (AUTO) 10.9 K/uL (1.8-8.9); NEUTROPHILS % (AUTO) 77.4 % (43.0-81.0); PLATELET COUNT (AUTO) 300 K/uL (150-450); RED BLOOD CELL COUNT(AUTO) 2.46 MIL/uL (4.0-5.2); WHITE BLOOD COUNT (AUTO) 14.1 K/uL (4.3-11.0)
--- NOTE | 2021-10-07 07:50 | NUR ---
RN OPENING NOTE- PT IN BED, ASLEEP, VENT DEPENDENT, TOLERATING VENT SETTINGS WELL AT THIS TIME. TELE MONITOR WITH A CURRENT READING OF SR 72. NO S/S OF DISTRESS. PICC LINE PRESENT IN XIOMARA. R CHEST HD CATH PRESENT. PROCTOR CATH INTACT DRAINING ANNA COLOR URINE PER GRAVITY. PATIENT IS ON G-TUBE FEEDING NEPRO RUNNING AT 40 MLS/HR. SAFETY PRECAUTIONS IN PLACE; BED IN LOW POSITION AND LOCKED, RAILS UP X2, CALL LIGHT WITHIN REACH. WILL CONTINUE TO MONITOR PATIENT.
[2021-10-07 08:16] VITALS: BP 145/61
[2021-10-07] MEDS: SEVELAMER CARBONATE 800 MG POWD.PACK GT SCH ×3 (08:41→17:07)
[2021-10-07] MEDS: DORZOLAMIDE OPTH 2% 10 ML BOTTLE OP SCH ×2 (08:42→17:15)
[2021-10-07] MEDS: ARGININE/GLUTAMINE/CALCIUM BMB 1 EACH POWD.PACK GT SCH ×2 (08:42→17:14)
[2021-10-07] MEDS: ASCORBIC ACID 500 MG TABLET GT SCH (08:42)
[2021-10-07] MEDS: PROSOURCE / PROSTAT (PYXIS) 30 ML UDC GT SCH ×2 (08:42→17:14)
[2021-10-07] MEDS: PANTOPRAZOLE 40 MG VIAL IV SCH (08:42)
[2021-10-07] MEDS: CHLORHEXIDINE GLUCONATE 15 ML UDC MM SCH ×2 (08:42→17:13)
[2021-10-07] MEDS: CARVEDILOL 12.5 MG TABLET PO SCH ×2 (08:42→21:00)
[2021-10-07] MEDS: PHENOBARBITAL 30 MG TABLET PO SCH ×2 (08:43→17:07)
[2021-10-07] MEDS: CHOLESTYRAMINE/ASPARTAME 4 G/PKT PACKET PO SCH ×2 (08:43→21:02)
[2021-10-07] MEDS: CLOTRIMAZOLE 1% 15 GM TUBE TP SCH ×2 (08:43→17:15)
[2021-10-07] MEDS: DAKINS QUARTER STRENGTH (0.125%) 480 ML BOTTLE TOP SCH (08:43)
[2021-10-07] MEDS: NYSTATIN TOP POWDER 15 GM BOTTLE TP SCH ×2 (08:43→17:15)
--- NOTE | 2021-10-07 08:44 | NUR ---
RN NOTE- SCANNING RX/ SCANNED ALL MORNING RX. ADMINISTERED. WHEN I CAME INTO [facility], COMPUTER BATTERY BEFORE INFO SAVED. . PLUGGED IN , RESTARTED. ALL DATA LOST. MARKED ADMINISTERED MANUALLY.
[2021-10-07] MEDS: DAPTOMYCIN IV SCH (09:37)
[2021-10-07] MEDS: NS 0.9% IV SCH (09:37)
[2021-10-07] MEDS: ACETAMINOPHEN 325 MG TABLET PO PRN (11:49)
--- NOTE | 2021-10-07 11:50 | NUR ---
RN NOTE- TEMP - 100.2 . TYLENOL 650 MG ADMINISTERED
[2021-10-07] MEDS: MICAFUNGIN SODIUM 100 MG in IV NS 0.9% 100 ML IV SCH (12:05)
[2021-10-07 12:15] VITALS: BP 151/75
--- NOTE | 2021-10-07 13:17 | NUR ---
RN NOTE- PT DIAPHORETIC, WARM. TEMP 100.6. NOTIFYING MD. COOLING MEASURES
[2021-10-07] MEDS ORDERED: CEFTAZIDIME/AVIBACTAM 0.94 GM in IV NS 0.9% 100 ML IV SCH (15:00)
--- NOTE | 2021-10-07 15:00 | NUR ---
RN NOTE- TEMP 98.7
[2021-10-07] MEDS: EPOETIN ALFA (4000 UNIT) 4,000 UNIT/ML VIAL IV SCH (15:20)
[2021-10-07 16:09] VITALS: BP 155/71
--- NOTE | 2021-10-07 18:00 | NUR ---
RN NOTE- HD RN AT BEDSIDE.
--- NOTE | 2021-10-07 18:51 | NUR ---
RN CLOSING NOTE- PT VENT DEPENDENT, TOLERATING VENT SETTINGS WELL AT THIS TIME. TELE MONITOR WITH A CURRENT READING OF SR 78 NO S/S OF DISTRESS. NO S/S OF PAIN SUCH FACIAL GRIMACING, MOANING OR GUARDING NOTED. PICC LINE PRESENT IN XIOMARA, FLUSHING WELL. R CHEST HD CATH PRESENT. PROCTOR CATH INTACT DRAINING ANNA COLOR URINE PER GRAVITY. PATIENT IS ON G-TUBE FEEDING NEPRO RUNNING AT 40 MLS/HR. ALL NEEDS ATTENDED DURING THE DAY. SAFETY PRECAUTIONS IN PLACE; BED IN LOW POSITION AND LOCKED, RAILS UP X2, CALL LIGHT WITHIN REACH.
[2021-10-07 20:00] VITALS: BP 117/50
--- NOTE | 2021-10-07 20:00 | NUR ---
YIELD IMPROVEMENT ENGINEER NOTES SR-86 ON TELE MONITOR,ON BED ON RIGHT SIDE POSITION,HE TREATMENT IN PROGRESS.HD NURSE AT BEDSIDE.WITH ON GOING GT FEEDING 40ML/HR RATE TOLERATED WELL,NO RESIDUAL VOLUME NOTED.ON TRACH TO VENT,SETTINGS TOLERATED WELL.HOB ELEVATED FDOR ASPIRATION PRECAUTION.PROCTOR CATH IN PLACE DRAINING ANNA COLORED URINE.WITH NOMAN PICC LINE FOR MEDS,RIGHT CHEST WALL HD FOR HD TREATMENT.ISOLATION PRECAUTION FOR C-DIFF POSITIVE AND VRE.WILL REPOSITION Q 2 HOURS PER PROTOCOL.
[2021-10-07] MEDS: NEPRO 1,000 ML BOTTLE GT PRN (21:00)
--- NOTE | 2021-10-07 21:00 | NUR ---
HYDROGRAPHICAL TECHNICAL OFFICER NOTES DUE BLOOD PRESSURE MEDICINE HELD PER DAUGHTER REQUEST,BP 117/50,HR-86
--- NOTE | 2021-10-07 21:52 | NUR ---
LOAN DOCUMENTS CLOSER NOTES HD TREATMENT TERMINATED PULLED OUT 982ML,PATIENT TOLERATED PROCEDURE WELL.BP-119/48,PULSE-87
[2021-10-07] MEDS: LATANOPROST EYE DROP 0.005% 2.5 ML BOTTLE OP SCH (22:47)
[2021-10-08] VITALS: BP 123/52
--- NOTE | 2021-10-08 | NUR ---
PREMIUM AUDITOR NOTES ACCU-CHECK BLOOD SUGAR CHECKED 111,NO INSULIN COVERAGE.
[2021-10-08] MEDS: VANCOMYCIN HCL 125 MG/2.5 ML ORAL.SUSP GT SCH ×4 (00:04→18:20)
[2021-10-08] MEDS: BLOOD SUGAR DIAGNOSTIC 1 EACH STRIP IN SCH ×4 (00:05→18:19)
[2021-10-08] MEDS: METOCLOPRAMIDE HCL 10 MG/2 ML VIAL IV SCH ×3 (00:06→18:17)
[2021-10-08] MEDS: IPRATROPIUM NEB FS 0.5 MG/2.5 ML AMPUL.NEB IH SCH ×4 (01:33→20:18)
[2021-10-08 04:00] VITALS: BP 154/52
[2021-10-08] MEDS: PHENYTOIN SODIUM IV 100 MG/2ML VIAL IV SCH ×3 (05:02→21:23)
--- NOTE | 2021-10-08 05:30 | NUR ---
AUTO MECHANIC SUPERVISOR NOTES MADE A PHONE CALL TO DAUGHTER GARY FOR PATIENT UPDATE.
--- NOTE | 2021-10-08 05:45 | NUR ---
ANALYTICAL TECH NOTES ACCU-CHECK BLOOD SUGAR CHECKED 113,NO INSULIN COVERAGE,GT FEEDING IN PROGRESS.
--- NOTE | 2021-10-08 06:32 | NUR ---
PROFESSIONAL PROGRAMMER ANALYST NOTES MORNING CARE RENDERED,NO BLEEDING ON SACRAL AREA,BM 2X,PROCTOR REMAINS AT 50ML ANNA COLORED URINE.NO SOB,AFEBRILE THRU OUT SHIFT,CENTRAL LINE CARE RENDERED ASEPTICALLY,IN NO ACUTE DISTRESS.WILL ENDORSE TO DAYSHIFT FOR OT[facility].
[2021-10-08 08:00] VITALS: BP 173/60
--- NOTE | 2021-10-08 08:00 | NUR ---
RN OPENING NOTE PT IN BED COMFORTABLY. VENT SETTINGS CHECKED AND TRACH IN PLACE. NO DISTRESS NOTED. NO PAIN NOTED. LABS AND ORDERS REVIEWED. SAFETY MEASURES IN PLACE. SIDE RAILS RAISED. BED LOWERED. CALL LIGHT WITHIN REACH. WILL CONTINUE TO MONITOR.
[2021-10-08] MEDS: CHOLESTYRAMINE/ASPARTAME 4 G/PKT PACKET PO SCH ×2 (08:03→21:22)
[2021-10-08] MEDS: SEVELAMER CARBONATE 800 MG POWD.PACK GT SCH ×3 (08:04→18:16)
[2021-10-08] MEDS: PANTOPRAZOLE 40 MG VIAL IV SCH (08:04)
[2021-10-08] MEDS: ARGININE/GLUTAMINE/CALCIUM BMB 1 EACH POWD.PACK GT SCH ×2 (08:04→18:19)
[2021-10-08] MEDS: CHLORHEXIDINE GLUCONATE 15 ML UDC MM SCH ×2 (08:05→18:19)
[2021-10-08] MEDS: PROSOURCE / PROSTAT (PYXIS) 30 ML UDC GT SCH ×2 (08:05→18:19)
[2021-10-08] MEDS: ASCORBIC ACID 500 MG TABLET GT SCH (08:05)
[2021-10-08] MEDS: DORZOLAMIDE OPTH 2% 10 ML BOTTLE OP SCH ×2 (08:06→18:53)
[2021-10-08] MEDS: PHENOBARBITAL 30 MG TABLET PO SCH ×2 (08:06→18:19)
[2021-10-08] MEDS: CARVEDILOL 12.5 MG TABLET PO SCH ×2 (08:06→21:00)
[2021-10-08] MEDS: CLOTRIMAZOLE 1% 15 GM TUBE TP SCH ×2 (08:07→18:54)
[2021-10-08] MEDS: NYSTATIN TOP POWDER 15 GM BOTTLE TP SCH ×2 (08:07→18:54)
[2021-10-08] MEDS: DAKINS QUARTER STRENGTH (0.125%) 480 ML BOTTLE TOP SCH (08:08)
[2021-10-08 09:26] LABS: CALCIUM, SERUM 9.6 mg/dL (8.5-10.1); CARBON DIOXIDE 21 mmol/L (21-32); CHLORIDE 94 mmol/L (98-107); CREATININE 1.4 mg/dL (0.6-1.3); GLUCOSE 128 mg/dL (74-106); MAGNESIUM 2.3 mg/dL (1.8-2.4); PHOSPHORUS 2.3 mg/dL (2.5-4.9); POTASSIUM 4.2 mmol/L (3.5-5.1); SODIUM SERUM 126 mmol/L (136-145); UREA NITROGEN, BLOOD 46 mg/dL (7-18)
[2021-10-08 09:45] LABS: BASOPHILS # (AUTO) 0.1 K/uL (0.0-0.2); BASOPHILS % (AUTO) 0.4 % (0.0-2.0); EOSINOPHILS % (AUTO) 1.2 % (0.0-6.0); HEMATOCRIT 24 % (33-45); HEMOGLOBIN 7.7 g/dL (11.5-14.8); LYMPHOCYTES # (AUTO) 1.6 K/uL (0.8-4.8); MEAN CORPUSCULAR HGB CONC 32 g/dl (31.0-36.0); MEAN CORPUSCULAR VOLUME 95 fL (82-100); MONOCYTES # (AUTO) 1.9 K/uL (0.1-1.30); MONOCYTES % (AUTO) 9.3 % (2.0-12.0); NEUTROPHILS # (AUTO) 16.3 K/uL (1.8-8.9); NEUTROPHILS % (AUTO) 81.1 % (43.0-81.0); PLATELET COUNT (AUTO) 331 K/uL (150-450); RED BLOOD CELL COUNT(AUTO) 2.53 MIL/uL (4.0-5.2); WHITE BLOOD COUNT (AUTO) 20.1 K/uL (4.3-11.0)
[2021-10-08 12:00] VITALS: BP 153/62
[2021-10-08] MEDS: MICAFUNGIN SODIUM 100 MG in IV NS 0.9% 100 ML IV SCH (13:34)
[2021-10-08] MEDS: TOBRAMYCIN 80 MG in IV D5W 50 ML IV PRN (14:36)
[2021-10-08] MEDS ORDERED: K PHOS NEUTRAL 250 MG TABLET PO ONE (15:30)
[2021-10-08 16:00] VITALS: BP 169/65
[2021-10-08 16:09] LABS: EOSINOPHILS % (MANUAL) 1 % (0-4); LYMPHOCYTES % (MANUAL) 11 % (16-48); MONOCYTES % (MANUAL) 10 % (0-11.0); NEUTROPHILS % (MANUAL) 78 (42-76)
--- NOTE | 2021-10-08 19:35 | NUR ---
HOME ENERGY INSPECTOR OPENING NOTE PATIENT RECEIVED ASLEEP. PATIENT CURRENTLY HAS DAUGHTER AT BEDSIDE PROVIDING SUPPORT. OBTUNDED. NO S/S OF DISTRESS, BREATHING BY VENT /S DIFFICULTY OR OBSTRUCTION. NURSE ANESTHESIA PROGRAM DIRECTOR REPORTS SR 79. SAFETY MEASURES IN PLACE: BED AT LOWEST POSITION, RAILS UP X2, CALL BETANCUR WITHIN REACH. WILL CONTINUE TO MONITOR PATIENT.
--- NOTE | 2021-10-08 19:46 | NUR ---
RN CLOSING NOTE PT IN BED COMFORTABLY. NO DISTRESS NOTED. NO PAIN NOTED. SAFETY MEASURES IN PLACE. SIDE RAILS RAISED. BED LOWERED. CALL LIGHT WITHIN REACH. WILL CONTINUE TO MONITOR.
[2021-10-08 20:44] VITALS: BP 151/94
[2021-10-08] MEDS: LATANOPROST EYE DROP 0.005% 2.5 ML BOTTLE OP SCH (21:39)
[2021-10-09] MEDS: VANCOMYCIN HCL 125 MG/2.5 ML ORAL.SUSP GT SCH ×4 (00:23→17:50)
[2021-10-09] MEDS: METOCLOPRAMIDE HCL 10 MG/2 ML VIAL IV SCH ×3 (00:24→17:48)
[2021-10-09] MEDS: BLOOD SUGAR DIAGNOSTIC 1 EACH STRIP IN SCH ×4 (00:26→18:18)
[2021-10-09] MEDS: IPRATROPIUM NEB FS 0.5 MG/2.5 ML AMPUL.NEB IH SCH ×4 (01:32→19:30)
[2021-10-09] MEDS: INSULIN REGULAR, HUMAN 100 UNIT/ML 3 ML VIAL SQ PRN ×2 (02:44→06:04)
[2021-10-09 04:23] VITALS: BP 147/58
[2021-10-09] MEDS: PHENYTOIN SODIUM IV 100 MG/2ML VIAL IV SCH ×2 (05:40→12:50)
--- NOTE | 2021-10-09 06:23 | NUR ---
TELE CLOSING NOTE PATIENT ASLEEP IN BED. OBTUNDED; EYE OPENING. NO S/S OF DISTRESS; BREATHING STABLE BY VENT NO DIFFICULTY OR OBSTRUCTION PRESENT. DATAPOWER DEVELOPER REPORTS SR 67. SAFETY MEASURES IN PLACE: BED AT LOWEST POSITION, RAILS UP X2, CALL BETANCUR WITHIN REACH. WILL ENDORSE TO NEXT SHIFT FOR [facility].
[2021-10-09 06:39] LABS: BASOPHILS # (AUTO) 0.1 K/uL (0.0-0.2); BASOPHILS % (AUTO) 0.4 % (0.0-2.0); EOSINOPHILS % (AUTO) 2.2 % (0.0-6.0); HEMATOCRIT 21 % (33-45); HEMOGLOBIN 7.1 g/dL (11.5-14.8); LYMPHOCYTES # (AUTO) 1.6 K/uL (0.8-4.8); LYMPHOCYTES % (AUTO) 10.2 % (20.0-44.0); MEAN CORPUSCULAR HGB CONC 33 g/dl (31.0-36.0); MEAN CORPUSCULAR VOLUME 94 fL (82-100); MONOCYTES # (AUTO) 1.8 K/uL (0.1-1.30); MONOCYTES % (AUTO) 11.5 % (2.0-12.0); NEUTROPHILS # (AUTO) 12.1 K/uL (1.8-8.9); NEUTROPHILS % (AUTO) 75.7 % (43.0-81.0); PLATELET COUNT (AUTO) 349 K/uL (150-450); RED BLOOD CELL COUNT(AUTO) 2.28 MIL/uL (4.0-5.2); WHITE BLOOD COUNT (AUTO) 15.9 K/uL (4.3-11.0)
[2021-10-09 07:14] LABS: CALCIUM, SERUM 9.2 mg/dL (8.5-10.1); CARBON DIOXIDE 19 mmol/L (21-32); CHLORIDE 95 mmol/L (98-107); CREATININE 1.8 mg/dL (0.6-1.3); GLUCOSE 93 mg/dL (74-106); PHOSPHORUS 3.6 mg/dL (2.5-4.9); POTASSIUM 4.2 mmol/L (3.5-5.1); SODIUM SERUM 128 mmol/L (136-145); UREA NITROGEN, BLOOD 76 mg/dL (7-18)
--- NOTE | 2021-10-09 07:30 | NUR ---
FURNACE ROOM SUPERVISOR OPENING NOTES RECEIVED PATIENT IN BED WITH EYES CLOSED, ABLE TO BE WAKEN. PATIENT IS NONVERBAL AT BASELINE. PATIENT ON MECHANICAL VENT SETTINGS: PORTEX 7, TV 500, FiO2 30%. NO S/S OF RESPIRATORY DISTRESS NOTED. TELE MONITOR SHOWS SR 69 BPM AT THIS TIME. XIOMARA PICC LINE. SAFETY MEASURES IN PLACE: HOB RAISED, BED AT LOWEST POSITION, RAILS UP X2, CALL BETANCUR WITHIN REACH. WILL CONTINUE TO MONITOR PATIENT.
[2021-10-09 08:00] VITALS: BP 158/56
[2021-10-09] MEDS: CHLORHEXIDINE GLUCONATE 15 ML UDC MM SCH ×2 (08:23→17:43)
[2021-10-09] MEDS: CHOLESTYRAMINE/ASPARTAME 4 G/PKT PACKET PO SCH (08:24)
[2021-10-09] MEDS: ASCORBIC ACID 500 MG TABLET GT SCH (08:24)
[2021-10-09] MEDS: PHENOBARBITAL 30 MG TABLET PO SCH ×2 (08:24→17:43)
[2021-10-09] MEDS: CARVEDILOL 12.5 MG TABLET PO SCH ×2 (08:25→21:00)
[2021-10-09] MEDS: PANTOPRAZOLE 40 MG/PACK PACK GT SCH (08:36)
--- NOTE | 2021-10-09 08:36 | NUR ---
SKI LIFT ATTENDANT NOTES DR. CARLOS AWARE OF PT'S LATEST LAB RESULTS, NO NEW ORDER GIVEN.
[2021-10-09] MEDS: ARGININE/GLUTAMINE/CALCIUM BMB 1 EACH POWD.PACK GT SCH ×2 (08:37→17:43)
[2021-10-09] MEDS: PROSOURCE / PROSTAT (PYXIS) 30 ML UDC GT SCH ×2 (08:37→17:43)
[2021-10-09] MEDS: DORZOLAMIDE OPTH 2% 10 ML BOTTLE OP SCH ×2 (08:39→17:47)
[2021-10-09] MEDS: CLOTRIMAZOLE 1% 15 GM TUBE TP SCH ×2 (08:40→17:47)
[2021-10-09] MEDS: DAKINS QUARTER STRENGTH (0.125%) 480 ML BOTTLE TOP SCH (08:40)
[2021-10-09] MEDS: NYSTATIN TOP POWDER 15 GM BOTTLE TP SCH ×2 (08:41→17:47)
[2021-10-09] MEDS: SEVELAMER CARBONATE 800 MG POWD.PACK GT SCH ×3 (09:00→17:43)
[2021-10-09] MEDS: NEPRO 1,000 ML BOTTLE GT PRN (09:01)
[2021-10-09 10:44] LABS: BAND % (MANUAL) 2 % (0.0-5.0); EOSINOPHILS % (MANUAL) 2 % (0-4); LYMPHOCYTES % (MANUAL) 14 % (16-48); MONOCYTES % (MANUAL) 12 % (0-11.0); NEUTROPHILS % (MANUAL) 70 (42-76)
[2021-10-09 12:00] VITALS: BP 126/52
[2021-10-09] MEDS: EPOETIN ALFA (4000 UNIT) 4,000 UNIT/ML VIAL IV SCH (15:52)
[2021-10-09 16:00] VITALS: BP 136/54
--- NOTE | 2021-10-09 18:55 | NUR ---
TIRE MAKER CLOSING NOTES RECEIVED PATIENT IN BED AWAKE. DIALYSIS NURSE AT BEDSIDE. PATIENT IS NONVERBAL AT BASELINE. PATIENT ON MECHANICAL VENT SETTINGS: PORTEX 7, TV 500, FiO2 30%. NO S/S OF RESPIRATORY DISTRESS NOTED. TELE MONITOR SHOWS SR 72 BPM AT THIS TIME. PEG TUBE IN PLACE WITH NEPRO RUNNING AT 40ML/HR. XIOMARA PICC LINE INTACT AND PATENT. F/C IN PLACE WITH SCANT YELLOW DRAINAGE. ALL ORDERS CARRIED OUT. ALL NEEDS MET. SAFETY MEASURES IN PLACE: HOB RAISED, BED AT LOWEST POSITION, RAILS UP X2, CALL BETANCUR WITHIN REACH. WILL ENDORSE TO THE BUSINESS OBJECTS ARCHITECT NURSE FOR OTIS.
--- NOTE | 2021-10-09 19:48 | NUR ---
TELE OPENING RN NOTE PATIENT AWAKE IN BED CURRENTLY RECEIVING DIALYSIS. DAUGHTER AT BEDSIDE FOR SUPPORT. OBTUNDED. NO S/S OF DISTRESS, BREATHING BY VENT. TELE SR 76. SAFETY MEASURES IN PLACE: BED AT LOWEST POSITION, RAILS UP X2, CALL BETANCUR WITHIN REACH. WILL CONTINUE TO MONITOR.
[2021-10-09] MEDS: ALBUMIN 25% 25 GM in PREMIX 1 EA IV PRN (19:58)
[2021-10-09] MEDS: LATANOPROST EYE DROP 0.005% 2.5 ML BOTTLE OP SCH (22:00)
[2021-10-10] MEDS: IPRATROPIUM NEB FS 0.5 MG/2.5 ML AMPUL.NEB IH SCH ×4 (01:21→20:18)
[2021-10-10] MEDS: PHENYTOIN SODIUM IV 100 MG/2ML VIAL IV SCH ×4 (01:39→20:53)
[2021-10-10] MEDS: CHOLESTYRAMINE/ASPARTAME 4 G/PKT PACKET PO SCH ×3 (01:39→20:53)
[2021-10-10] MEDS: METOCLOPRAMIDE HCL 10 MG/2 ML VIAL IV SCH ×4 (01:39→23:16)
[2021-10-10] MEDS: VANCOMYCIN HCL 125 MG/2.5 ML ORAL.SUSP GT SCH ×5 (01:47→23:16)
--- NOTE | 2021-10-10 02:00 | NUR ---
AIRFRAME DESIGN ENGINEER NOTE DIALYSIS NURSE FINISHED AT 0150. NURSE REPORTS +150cc GAINED BY PATIENT NURSE HAD TO USE ALBUMIN AND NORMAL SALINE TO SUSTAIN BP. POST DIALYSIS, PATIENT'S VITAL SIGNS WERE STABLE: BP 151/65, P 87, O2 100%, RESP 19, T 98.3. TELE SHOWS SR 86. MEDS 2100 MEDS AND ON HAD TO BE HELD D/T DIALYSIS. I SPOKE W MY CHARGE NURSE, LEONIE, AND I WAS FINE TO PROCEED TO ADMINISTER MEDS IMMEDIATELY POST DIALYSIS. PATIENT IS ALSO BEING MONITORED BY RT D/T A STANDING ORDER PER MD FOR ROUTINE TREATMENTS.
--- NOTE | 2021-10-10 05:10 | NUR ---
CUSTOMS ENTRY WRITER NOTE VANCO 0600 AND PHENYTOIN 0500 HELD D/T HAVING GIVEN PREVIOUS DOSES SCHEDULED FOR 2100 ON 10/09/21 AT 0200 10/10/21. NOTIFIED MY CHARGE NURSE, LEONIE. WILL ENDORSE TO FOLLOWING SHIFT THIS INFORMATION WELL TO RESUME REGULAR SCHEDULE MOVING FORWARD.
--- NOTE | 2021-10-10 06:02 | NUR ---
FEEDER ASSOCIATE CLOSING NOTE PATIENT IS ASLEEP IN BED. OBTUNDED. NO S/S OF DISTRESS; BREATHING ON VENT UNOBSTRUCTED. TELE MONITOR SR 79. SAFETY MEASURES IN PLACE: BED AT LOWEST POSITION, RAILS UP X2, CALL BETANCUR WITHIN REACH. WILL ENDORSE TO NEXT SHIFT FOR OT[facility].
[2021-10-10] MEDS: BLOOD SUGAR DIAGNOSTIC 1 EACH STRIP IN SCH ×5 (06:05→23:16)
[2021-10-10] MEDS: INSULIN REGULAR, HUMAN 100 UNIT/ML 3 ML VIAL SQ PRN (06:05)
--- NOTE | 2021-10-10 07:30 | NUR ---
SLAB GRINDER OPENING NOTES RECEIVED PATIENT IN BED WITH EYES CLOSED. OPENS EYES BY CALLING NAME OR TACTILE STIMULI. PATIENT IS NONVERBAL . PATIENT ON MECHANICAL VENT SETTINGS: PORTEX 7, TV 500, FiO2 30%. NO S/S OF RESPIRATORY DISTRESS NOTED. TELE MONITOR SHOWS SR 76 BPM AT THIS TIME. XIOMARA PICC LINE. SAFETY MEASURES IN PLACE: PROCTOR CATHETER INTACT. ON GTUBE FEEDING OF NEPRO AT 40 ML/HR.HOB RAISED, BED AT LOWEST POSITION, RAILS UP X2, CALL BETANCUR WITHIN REACH. WILL CONTINUE TO MONITOR PATIENT.
[2021-10-10 08:00] VITALS: BP 128/59
[2021-10-10 08:16] LABS: BASOPHILS % (AUTO) 0.2 % (0.0-2.0); EOSINOPHILS % (AUTO) 2.2 % (0.0-6.0); HEMATOCRIT 22 % (33-45); HEMOGLOBIN 7.3 g/dL (11.5-14.8); LYMPHOCYTES # (AUTO) 1.3 K/uL (0.8-4.8); LYMPHOCYTES % (AUTO) 9.1 % (20.0-44.0); MEAN CORPUSCULAR HGB CONC 33 g/dl (31.0-36.0); MEAN CORPUSCULAR VOLUME 94 fL (82-100); MONOCYTES # (AUTO) 1.4 K/uL (0.1-1.30); NEUTROPHILS # (AUTO) 11.2 K/uL (1.8-8.9); NEUTROPHILS % (AUTO) 78.5 % (43.0-81.0); PLATELET COUNT (AUTO) 313 K/uL (150-450); RED BLOOD CELL COUNT(AUTO) 2.34 MIL/uL (4.0-5.2); WHITE BLOOD COUNT (AUTO) 14.2 K/uL (4.3-11.0)
[2021-10-10] MEDS: SEVELAMER CARBONATE 800 MG POWD.PACK GT SCH ×3 (08:38→17:36)
[2021-10-10 08:45] LABS: CALCIUM, SERUM 8.5 mg/dL (8.5-10.1); CREATININE 1.2 mg/dL (0.6-1.3)
[2021-10-10] MEDS: CHLORHEXIDINE GLUCONATE 15 ML UDC MM SCH ×2 (09:00→17:37)
[2021-10-10] MEDS: DORZOLAMIDE OPTH 2% 10 ML BOTTLE OP SCH ×2 (09:00→17:47)
[2021-10-10] MEDS: CARVEDILOL 12.5 MG TABLET PO SCH ×2 (09:00→20:54)
[2021-10-10] MEDS: PANTOPRAZOLE 40 MG/PACK PACK GT SCH (09:00)
[2021-10-10] MEDS: ASCORBIC ACID 500 MG TABLET GT SCH (09:00)
[2021-10-10] MEDS: PHENOBARBITAL 30 MG TABLET PO SCH ×2 (09:00→17:37)
[2021-10-10] MEDS: DAKINS QUARTER STRENGTH (0.125%) 480 ML BOTTLE TOP SCH (09:01)
[2021-10-10] MEDS: NYSTATIN TOP POWDER 15 GM BOTTLE TP SCH ×2 (09:02→17:47)
[2021-10-10] MEDS: PROSOURCE / PROSTAT (PYXIS) 30 ML UDC GT SCH ×2 (09:05→17:48)
[2021-10-10] MEDS: ARGININE/GLUTAMINE/CALCIUM BMB 1 EACH POWD.PACK GT SCH ×2 (09:05→17:36)
[2021-10-10] MEDS: CLOTRIMAZOLE 1% 15 GM TUBE TP SCH ×2 (09:05→17:48)
[2021-10-10 12:00] VITALS: BP 137/53
[2021-10-10 16:00] VITALS: BP 126/48
[2021-10-10] MEDS: ACETAMINOPHEN 325 MG TABLET PO PRN (16:33)
[2021-10-10 16:51] LABS: LYMPHOCYTES % (MANUAL) 11 % (16-48); MONOCYTES % (MANUAL) 6 % (0-11.0); NEUTROPHILS % (MANUAL) 83 (42-76)
--- NOTE | 2021-10-10 18:30 | NUR ---
CRAYON SORTING MACHINE FEEDER OPENING NOTES PATIENT IN BED WITH EYES CLOSED. OPENS EYES BY CALLING NAME OR TACTILE STIMULI. PATIENT IS NONVERBAL . PATIENT ON MECHANICAL VENT SETTINGS: PORTEX 7, TV 500, FiO2 30%. NO S/S OF RESPIRATORY DISTRESS NOTED. TELE MONITOR SHOWS SR 80 BPM AT THIS TIME. XIOMARA PICC LINE INTACT.ALL DUE MEDS GIVEN ORDERED. SAFETY MEASURES IN PLACE: PROCTOR CATHETER INTACT. ON GTUBE FEEDING OF NEPRO AT 40 ML/HR.HOB RAISED, BED AT LOWEST POSITION, RAILS UP X2, CALL BETANCUR WITHIN REACH. DAUGHTER AT BED SIDE. WILL ENDORSE FOR OTIS.
[2021-10-10] MEDS: NEPRO 1,000 ML BOTTLE GT PRN (19:01)
--- NOTE | 2021-10-10 19:26 | NUR ---
RN OPENING NOTE PATIENT IN BED, PATIENT NONVERBAL AND OBTUNDED. DAUGHTER AT BEDSIDE. PATIENT IS ON MECH VENT, TOLERATING CURRENT SETTINGS. PATIENT'S TELE MONITOR READS 83 BPM. PATIENT HAS PROCTOR CATHETER DRAINING VIA GRAVITY. TF RUNNING NEPRO 40 ML/HR, TOLERATING WELL. XIOMARA PICC LINE, PATENT AND INTACT. DRESSING CHANGED BY TEO HERRING. SAFETY MEASURES IN PLACE: BED LOCKED AND IN LOWEST POSITION, CALL LIGHT WITHIN REACH, SIDE RAILS UP, HOB ELEVATED. WILL MONITOR PATIENT CLOSELY.
--- NOTE | 2021-10-10 21:00 | NUR ---
RN NOTE COREG HELD PER DTR'S REQUEST, BP 2522/62
[2021-10-10] MEDS: LATANOPROST EYE DROP 0.005% 2.5 ML BOTTLE OP SCH (21:09)
--- NOTE | 2021-10-10 21:30 | NUR ---
RN NOTE NOTIFIED MD REGARDING POTASSIUM LEVEL 3.0, MD ORDERED KCL 20 MEQ POWDER GT ONCE. WILL GIVE MED ONCE VERIFIED BY PHARMACY.
[2021-10-10] MEDS ORDERED: POTASSIUM CHLORIDE 20 MEQ POWDER PACKET GT ONE (22:00)
--- NOTE | 2021-10-10 23:29 | NUR ---
RN NOTE BS 117 MG/DL. NO COVERAGE GIVEN, ON CONTINUOUS GT FEEDING. WILL MONITOR FOR HYPOGLYCEMIA.
[2021-10-11] MEDS: IPRATROPIUM NEB FS 0.5 MG/2.5 ML AMPUL.NEB IH SCH ×4 (01:14→19:54)
[2021-10-11] MEDS: BLOOD SUGAR DIAGNOSTIC 1 EACH STRIP IN SCH ×4 (05:05→23:17)
[2021-10-11] MEDS: PHENYTOIN SODIUM IV 100 MG/2ML VIAL IV SCH ×3 (05:05→21:26)
[2021-10-11] MEDS: VANCOMYCIN HCL 125 MG/2.5 ML ORAL.SUSP GT SCH ×4 (05:05→23:03)
--- NOTE | 2021-10-11 05:46 | NUR ---
RN NOTE BS 97 MG/DL. NO COVERAGE GIVEN, ON CONTINUOUS GT FEEDING. WILL MONITOR FOR HYPOGLYCEMIA.
--- NOTE | 2021-10-11 07:06 | NUR ---
RN CLOSING NOTE PATIENT IN BED, PATIENT NONVERBAL AND OBTUNDED, OPENS EYES. PATIENT IS ON MECH VENT, TOLERATING CURRENT SETTINGS. PATIENT'S TELE MONITOR READS 70 BPM. PATIENT NOT IN ANY APPARENT DISTRESS. PATIENT HAS PROCTOR CATHETER PRESENT, NO OUTPUT. TF RUNNING NEPRO 40 ML/HR, TOLERATING WELL. XIOMARA PICC LINE, PATENT AND INTACT. SAFETY MEASURES IN PLACE: BED LOCKED AND IN LOWEST POSITION, CALL LIGHT WITHIN REACH, SIDE RAILS UP, HOB ELEVATED. ALL NEEDS MET AND ATTENDED, ALL ORDERS CARRIED OUT. ENDORSED TO DAY SHIFT NURSE FOR OTIS.
--- NOTE | 2021-10-11 07:30 | NUR ---
MEDIA PLANNER / BUYER CLOSING NOTES PATIENT IN BED WITH EYES CLOSED. OPENS EYES BY CALLING NAME OR TACTILE STIMULI. PATIENT IS NONVERBAL . PATIENT ON MECHANICAL VENT SETTINGS: PORTEX 7, TV 500, FiO2 30%. NO S/S OF RESPIRATORY DISTRESS NOTED. TELE MONITOR SHOWS SR 80 BPM AT THIS TIME. XIOMARA PICC LINE INTACT.ALL DUE MEDS GIVEN ORDERED. SAFETY MEASURES IN PLACE: PROCTOR CATHETER INTACT. ON GTUBE FEEDING OF NEPRO AT 40 ML/HR.HOB RAISED, BED AT LOWEST POSITION, RAILS UP X2, CALL BETANCUR WITHIN REACH. DAUGHTER AT BED SIDE. WILL ENDORSE FOR OTIS.
--- NOTE | 2021-10-11 07:35 | NUR ---
CAUSTIC PURIFICATION OPERATOR OPENING NOTES RECEIVED PATIENT IN BED WITH EYES CLOSED. OPENS EYES BY CALLING NAME OR TACTILE STIMULI. PATIENT IS NONVERBAL . PATIENT ON MECHANICAL VENT SETTINGS: PORTEX 7, TV 500, FiO2 30%. NO S/S OF RESPIRATORY DISTRESS NOTED. TELE MONITOR SHOWS SR 67 BPM AT THIS TIME. XIOMARA PICC LINE INTACT. SAFETY MEASURES IN PLACE: PROCTOR CATHETER INTACT. ON G-TUBE FEEDING OF NEPRO AT 40 ML/HR.HOB RAISED, BED AT LOWEST POSITION, RAILS UP X2, CALL BETANCUR WITHIN REACH. WILL CONTINUE TO MONITOR PATIENT.
[2021-10-11 07:58] LABS: BASOPHILS # (AUTO) 0.1 K/uL (0.0-0.2); BASOPHILS % (AUTO) 0.4 % (0.0-2.0); EOSINOPHILS % (AUTO) 1.9 % (0.0-6.0); HEMATOCRIT 24 % (33-45); HEMOGLOBIN 7.6 g/dL (11.5-14.8); LYMPHOCYTES # (AUTO) 1.5 K/uL (0.8-4.8); LYMPHOCYTES % (AUTO) 9.1 % (20.0-44.0); MEAN CORPUSCULAR HGB CONC 32 g/dl (31.0-36.0); MEAN CORPUSCULAR VOLUME 96 fL (82-100); MONOCYTES # (AUTO) 1.9 K/uL (0.1-1.30); MONOCYTES % (AUTO) 11.9 % (2.0-12.0); NEUTROPHILS # (AUTO) 12.2 K/uL (1.8-8.9); NEUTROPHILS % (AUTO) 76.7 % (43.0-81.0); PLATELET COUNT (AUTO) 367 K/uL (150-450); RED BLOOD CELL COUNT(AUTO) 2.44 MIL/uL (4.0-5.2)
[2021-10-11] MEDS: SEVELAMER CARBONATE 800 MG POWD.PACK GT SCH ×3 (07:59→18:30)
[2021-10-11] MEDS: METOCLOPRAMIDE HCL 10 MG/2 ML VIAL IV SCH ×3 (07:59→23:03)
[2021-10-11 08:00] VITALS: BP 142/57
[2021-10-11 08:42] LABS: CALCIUM, SERUM 9.1 mg/dL (8.5-10.1); CARBON DIOXIDE 21 mmol/L (21-32); CHLORIDE 96 mmol/L (98-107); CREATININE 1.6 mg/dL (0.6-1.3); GLUCOSE 99 mg/dL (74-106); MAGNESIUM 2.5 mg/dL (1.8-2.4); PHOSPHORUS 2.7 mg/dL (2.5-4.9); POTASSIUM 3.9 mmol/L (3.5-5.1); SODIUM SERUM 130 mmol/L (136-145); UREA NITROGEN, BLOOD 78 mg/dL (7-18)
[2021-10-11] MEDS: CARVEDILOL 12.5 MG TABLET PO SCH ×2 (09:00→21:00)
[2021-10-11] MEDS: NYSTATIN TOP POWDER 15 GM BOTTLE TP SCH ×2 (09:10→18:31)
[2021-10-11] MEDS: ARGININE/GLUTAMINE/CALCIUM BMB 1 EACH POWD.PACK GT SCH ×2 (09:10→18:32)
[2021-10-11] MEDS: PROSOURCE / PROSTAT (PYXIS) 30 ML UDC GT SCH ×2 (09:10→18:32)
[2021-10-11] MEDS: DORZOLAMIDE OPTH 2% 10 ML BOTTLE OP SCH ×2 (09:10→18:32)
[2021-10-11] MEDS: DAKINS QUARTER STRENGTH (0.125%) 480 ML BOTTLE TOP SCH ×2 (09:11→18:31)
[2021-10-11] MEDS: CHOLESTYRAMINE/ASPARTAME 4 G/PKT PACKET PO SCH ×2 (09:11→21:26)
[2021-10-11] MEDS: PHENOBARBITAL 30 MG TABLET PO SCH ×2 (09:11→18:30)
[2021-10-11] MEDS: CHLORHEXIDINE GLUCONATE 15 ML UDC MM SCH ×2 (09:11→18:30)
[2021-10-11] MEDS: PANTOPRAZOLE 40 MG/PACK PACK GT SCH (09:11)
[2021-10-11] MEDS: ASCORBIC ACID 500 MG TABLET GT SCH (09:11)
[2021-10-11] MEDS: CLOTRIMAZOLE 1% 15 GM TUBE TP SCH ×2 (09:11→18:32)
[2021-10-11 12:00] VITALS: BP 142/56
[2021-10-11] MEDS ORDERED: EPOETIN ALFA-EPBX 10,000 UNIT/ML VIAL IV ONE (15:00)
[2021-10-11 16:00] VITALS: BP 143/53
[2021-10-11] MEDS: ACETAMINOPHEN 325 MG TABLET PO PRN (16:55)
--- NOTE | 2021-10-11 19:00 | NUR ---
RN NOTES EPO NOT GIVEN , CHECKED WITH PHARMACY SINCE PATIENT IS GETTING DIALYSIS ON MWF.
--- NOTE | 2021-10-11 19:56 | NUR ---
PROBATE CLERK OPENING NOTES RECEIVED PATIENT IN BED WITH EYES CLOSED. OPENS EYES BY CALLING NAME OR TACTILE STIMULI. PATIENT IS NONVERBAL . PATIENT ON MECHANICAL VENT SETTINGS: PORTEX 7, TV 500, FiO2 30%. NO SOB OR S/S OF RESPIRATORY DISTRESS NOTED. TELE MONITOR SHOWS SR 70 BPM AT THIS TIME. XIOMARA PICC LINE INTACT. IV ACCESS XIOMARA PICC LINE SL. G-TUBE FEEDING NEPRO AT 40 ML/HR. SAFETY PRECAUTIONS MAINTAINED. BED IN LOWEST LOCKED POSITION, HOB ELEVATED, SIDE RAILS UP X3, AND CALL LIGHT AND TABLE WITHIN REACH. WILL CONTINUE WITH PLAN OF CARE.
[2021-10-11 20:00] VITALS: BP 143/53
--- NOTE | 2021-10-11 21:27 | NUR ---
RN NOTE PT DAUGHTER REFUSED COREG. HELD COREG. EXPLAINED RISKS AND BENEFITS. PT DAUGHTER STILL REFUSED.
[2021-10-11] MEDS: LATANOPROST EYE DROP 0.005% 2.5 ML BOTTLE OP SCH (21:32)
[2021-10-12] VITALS: BP 147/58
[2021-10-12] MEDS: IPRATROPIUM NEB FS 0.5 MG/2.5 ML AMPUL.NEB IH SCH ×4 (01:18→20:55)
[2021-10-12 04:00] VITALS: BP 148/65
[2021-10-12] MEDS: NEPRO 1,000 ML BOTTLE GT PRN (04:38)
[2021-10-12] MEDS: VANCOMYCIN HCL 125 MG/2.5 ML ORAL.SUSP GT SCH ×3 (05:01→17:13)
[2021-10-12] MEDS: PHENYTOIN SODIUM IV 100 MG/2ML VIAL IV SCH ×3 (05:01→21:03)
[2021-10-12] MEDS: BLOOD SUGAR DIAGNOSTIC 1 EACH STRIP IN SCH ×3 (05:14→17:12)
--- NOTE | 2021-10-12 06:38 | NUR ---
INDUSTRIAL BOILERMAKER CLOSING NOTES PATIENT IN BED WITH EYES CLOSED. OPENS EYES BY CALLING NAME OR TACTILE STIMULI. PATIENT IS NONVERBAL . PATIENT ON MECHANICAL VENT SETTINGS: PORTEX 7, TV 500, FiO2 30%. NO SOB OR S/S OF RESPIRATORY DISTRESS NOTED. TELE MONITOR SHOWS SR 74 BPM AT THIS TIME. XIOMARA PICC LINE SL, INTACT AND PATENT. G-TUBE FEEDING NEPRO AT 40 ML/HR. KEPT CLEAN AND DRY AT ALL TIMES. WOUND CARE DONE AND DRESSINGS C/D/I. ALL NEEDS MET AT THIS TIME. SAFETY PRECAUTIONS MAINTAINED. BED IN LOWEST LOCKED POSITION, HOB ELEVATED, SIDE RAILS UP X3, AND CALL LIGHT AND TABLE WITHIN REACH. WILL ENDORSE TO ONCOMING SHIFT FOR OTIS.
[2021-10-12 08:00] VITALS: BP 157/58
[2021-10-12 08:01] LABS: BASOPHILS # (AUTO) 0.1 K/uL (0.0-0.2); BASOPHILS % (AUTO) 0.5 % (0.0-2.0); EOSINOPHILS % (AUTO) 2.7 % (0.0-6.0); HEMATOCRIT 22 % (33-45); HEMOGLOBIN 7.2 g/dL (11.5-14.8); LYMPHOCYTES # (AUTO) 1.6 K/uL (0.8-4.8); LYMPHOCYTES % (AUTO) 10.4 % (20.0-44.0); MEAN CORPUSCULAR HGB CONC 33 g/dl (31.0-36.0); MEAN CORPUSCULAR VOLUME 96 fL (82-100); MONOCYTES # (AUTO) 1.6 K/uL (0.1-1.30); MONOCYTES % (AUTO) 10.8 % (2.0-12.0); NEUTROPHILS # (AUTO) 11.4 K/uL (1.8-8.9); NEUTROPHILS % (AUTO) 75.6 % (43.0-81.0); PLATELET COUNT (AUTO) 399 K/uL (150-450); RED BLOOD CELL COUNT(AUTO) 2.29 MIL/uL (4.0-5.2)
--- NOTE | 2021-10-12 08:08 | NUR ---
RN Note Patient received in bed obtunded, able to responds all stimuli. NO distress observed. Respiratory even and unlabored with ventilator. Skin is warm to touch, keep clean/dry. Continues tube feeding and intact on site. Call light within reach, kept elevated HOB for ensure airway and lower bed position for safety. Will continue to monitor.
[2021-10-12] MEDS: CHLORHEXIDINE GLUCONATE 15 ML UDC MM SCH ×2 (08:40→17:11)
[2021-10-12] MEDS: SEVELAMER CARBONATE 800 MG POWD.PACK GT SCH ×3 (08:40→17:15)
[2021-10-12] MEDS: PANTOPRAZOLE 40 MG/PACK PACK GT SCH (08:40)
[2021-10-12] MEDS: CHOLESTYRAMINE/ASPARTAME 4 G/PKT PACKET PO SCH ×2 (08:40→21:03)
[2021-10-12] MEDS: METOCLOPRAMIDE HCL 10 MG/2 ML VIAL IV SCH ×2 (08:41→15:30)
[2021-10-12] MEDS: ASCORBIC ACID 500 MG TABLET GT SCH (08:41)
[2021-10-12] MEDS: PHENOBARBITAL 30 MG TABLET PO SCH ×2 (08:41→17:11)
[2021-10-12] MEDS: PROSOURCE / PROSTAT (PYXIS) 30 ML UDC GT SCH ×2 (08:46→17:11)
[2021-10-12] MEDS: ACETAMINOPHEN 325 MG TABLET PO PRN (08:50)
[2021-10-12] MEDS: DORZOLAMIDE OPTH 2% 10 ML BOTTLE OP SCH ×2 (08:53→17:35)
[2021-10-12] MEDS: NYSTATIN TOP POWDER 15 GM BOTTLE TP SCH ×2 (08:54→17:16)
[2021-10-12] MEDS: CLOTRIMAZOLE 1% 15 GM TUBE TP SCH ×2 (08:54→17:16)
[2021-10-12] MEDS: CARVEDILOL 12.5 MG TABLET PO SCH ×2 (09:00→21:00)
[2021-10-12 09:30] LABS: CALCIUM, SERUM 8.5 mg/dL (8.5-10.1); CARBON DIOXIDE 21 mmol/L (21-32); CHLORIDE 94 mmol/L (98-107); GLUCOSE 88 mg/dL (74-106); POTASSIUM 4.2 mmol/L (3.5-5.1); SODIUM SERUM 129 mmol/L (136-145)
--- NOTE | 2021-10-12 10:00 | NUR ---
Patient had fever, given Tylenol. Rechecked temperature 97.8. Will continue to monitor.
[2021-10-12 10:25] LABS: UREA NITROGEN, BLOOD 94 mg/dL (7-18)
[2021-10-12 12:00] VITALS: BP 127/46
[2021-10-12] MEDS: ARGININE/GLUTAMINE/CALCIUM BMB 1 EACH POWD.PACK GT SCH ×2 (12:49→17:11)
[2021-10-12] MEDS: EPOETIN ALFA (4000 UNIT) 4,000 UNIT/ML VIAL IV SCH (15:30)
[2021-10-12 16:00] VITALS: BP 151/68
--- NOTE | 2021-10-12 18:55 | NUR ---
RN Closing Note Patient in bed her Daughter at bed side. No distress observed, respiratory even and unlabored with ventilator. Skin is warm to touch, keep clean/dry. Intact piccline and dressing. Kept elevated HOB for ensure airway and aspiration precaution, Also lower position of the bed for safety. Patient noted Hbg level 7.2 this morning, MD made aware. Call light within reach, all needs met. will endorse table games shift manager.
--- NOTE | 2021-10-12 19:15 | NUR ---
DRYWALL HANGER OPENING NOTE: RECEIVED REPORT AT PATIENT'S BEDSIDE. NO CHANGE FROM AM SHIFT CLOSING ASSESSMENT. PATIENT IN NAD AND STABLE AT THIS TIME. DAUGHTER REMAINS AT BEDSIDE. ONGOING MONITORING CONTINUES.
[2021-10-12 20:00] VITALS: BP 141/56
--- NOTE | 2021-10-12 20:41 | NUR ---
AGRICULTURE LABORER NOTE: ENTERED PATIENT'S ROOM. DAUGHTER IMMEDIATELY STATED, "SEE HER ARMS? THEY WEREN'T LIKE THIS YESTERDAY." (DAUGHTER MADE NO MENTION OF HER CONCERN OVER HER MOTHER'S ARMS WHEN AT BEDSIDE RECEIVING REPORT AND TALKING TO DAUGHTER AT BEDSIDE. PATIENT'S ARMS WERE EXPOSED DURING REPORT AND NOTED TO BE DISCOLORED PURPLE-NAVI/BLUISH AND BLEEDING PRECAUTIONS HAD BEEN IMPLEMENTED). " SHE ALSO HAS A TEMPERATURE OF 100. ARE YOU GOING TO GIVE HER MEDICINE NOW?" I EXPLAINED IMPLEMENTING COOLING MEASURES TO DAUGHTER AND I WILL GO OVER HER MOTHER'S VITAL SIGNS. DAUGHTER ALSO STATES EMPHATICALLY, "AND I DO NOT WANT ANY BLOOD PRESSURE MEDICATIONS GIVEN." I EXPLAINED TO THE DAUGHTER THERE ARE PARAMETERS IN PLACE AND THE PROCESS BY WHICH MEDICATIONS ARE ADMINISTERED. DAUGHTER STATED SHE DID NOT LIKE MY ATTITUDE. I ADDRESSED WITH THE DAUGHTER THAT ALL AM HER MOTHER'S ARMS WERE JUST THEY ARE NOW. WAS THIS ADDRESSED WITH THE AM NURSE? THE DAUGHTER AVOIDED THE QUESTION AND WENT BACK TO HER MOTHER'S TEMPERATURE. I LEFT THE ROOM, OBTAINED A THERMOMETER. TOOK PATIENT'S TEMPERATURE OF 100.9. ADMINISTERING TYLENOL PER ORDER NOW.
--- NOTE | 2021-10-12 20:42 | NUR ---
PUGGER HELPER NOTE: REPORTED OFF TO OLINDA HERRING. OLINDA GIVEN PREPARED, CRUSHED TYLENOL PER ORDER TO ADMINISTER TO PATIENT.
--- NOTE | 2021-10-12 21:00 | NUR ---
change of care report given to guillermo HERRING Addendum: 10/12/21 at 2251 by OLINDA AWAD RN received OTIS report from NIMA Feliciano
[2021-10-12] MEDS: LATANOPROST EYE DROP 0.005% 2.5 ML BOTTLE OP SCH (21:22)
--- NOTE | 2021-10-12 22:52 | NUR ---
received OTIS report from NIMA Feliciano Addendum: 10/12/21 at 2254 by OLINDA AWAD RN Amend time [phone]
--- NOTE | 2021-10-12 22:53 | NUR ---
Patient is resting in bed no signs of distress. Daughter also at bedside. Pt. is clean and dry. Tylenol was given for fever will reassess. Addendum: 10/12/21 at 2254 by OLINDA AWAD RN Amend time [id number]
--- NOTE | 2021-10-12 23:14 | NUR ---
temp down to 98.0
[2021-10-13] VITALS: BP 114/46
[2021-10-13] MEDS: VANCOMYCIN HCL 125 MG/2.5 ML ORAL.SUSP GT SCH ×4 (00:17→17:43)
[2021-10-13] MEDS: BLOOD SUGAR DIAGNOSTIC 1 EACH STRIP IN SCH ×4 (00:17→17:49)
[2021-10-13] MEDS: METOCLOPRAMIDE HCL 10 MG/2 ML VIAL IV SCH ×3 (00:17→17:22)
[2021-10-13 04:00] VITALS: BP 120/48
[2021-10-13] MEDS: IPRATROPIUM NEB FS 0.5 MG/2.5 ML AMPUL.NEB IH SCH ×4 (04:10→19:57)
[2021-10-13] MEDS: PHENYTOIN SODIUM IV 100 MG/2ML VIAL IV SCH ×3 (05:36→21:11)
[2021-10-13] MEDS: NEPRO 1,000 ML BOTTLE GT PRN (05:51)
--- NOTE | 2021-10-13 07:17 | NUR ---
CLOSING NOTES Patient has short fever at beginning of the night that responded to PRN tylenol. Patient did not have chills or sweats. Had x3 loose with soft particle BMs this shift. Wound care completed. No s/s of hypo or hyperglycemic reactions noted. SR in 70s on the tele monitor. Pt. is still obtunded, opening her mouth and eyes to touch only. Suctioned as needed. white thin sputum.
--- NOTE | 2021-10-13 07:25 | NUR ---
REPAIRER SCREEN CRUSHER OPENING NOTES RECEIVED PATIENT IN BED WITH EYES CLOSED, RESPONDS TO VERBAL AND PHYSICAL STIMULI. PATIENT IS NONVERBAL ON A MECHANICAL VENT WITH O2 SAT @ 100%. NO S/SX OF RESPIRATORY DISTRESS NOTED. TELE MONITOR SHOWS SR 62 BPM AT THIS TIME. XIOMARA PICC LINE INTACT AND PATENT. PEG TUBE INTACT AND PATENT WITH NEPHRO RUNNING @ 40ML/HR. SAFETY MEASURES IN PLACE: BED WHEELS LOCKED AND BED IN LOWEST POSITION WITH CALL LIGHT WITHIN REACH. WILL CONTINUE TO MONITOR PATIENT.
[2021-10-13 07:55] LABS: BASOPHILS # (AUTO) 0.1 K/uL (0.0-0.2); BASOPHILS % (AUTO) 0.5 % (0.0-2.0); EOSINOPHILS % (AUTO) 2.3 % (0.0-6.0); HEMOGLOBIN 7.2 g/dL (11.5-14.8); LYMPHOCYTES # (AUTO) 1.5 K/uL (0.8-4.8); LYMPHOCYTES % (AUTO) 9.6 % (20.0-44.0); MEAN CORPUSCULAR HGB CONC 32 g/dl (31.0-36.0); MEAN CORPUSCULAR VOLUME 96 fL (82-100); MONOCYTES # (AUTO) 1.7 K/uL (0.1-1.30); NEUTROPHILS # (AUTO) 11.8 K/uL (1.8-8.9); NEUTROPHILS % (AUTO) 76.6 % (43.0-81.0); PLATELET COUNT (AUTO) 401 K/uL (150-450); RED BLOOD CELL COUNT(AUTO) 2.31 MIL/uL (4.0-5.2); WHITE BLOOD COUNT (AUTO) 15.4 K/uL (4.3-11.0)
[2021-10-13 08:00] VITALS: BP 135/69
[2021-10-13 08:15] LABS: HEMATOCRIT 22 % (33-45)
[2021-10-13] MEDS: CHLORHEXIDINE GLUCONATE 15 ML UDC MM SCH ×2 (08:32→17:22)
[2021-10-13] MEDS: SEVELAMER CARBONATE 800 MG POWD.PACK GT SCH ×3 (08:33→17:22)
[2021-10-13] MEDS: PROSOURCE / PROSTAT (PYXIS) 30 ML UDC GT SCH ×2 (08:33→17:21)
[2021-10-13] MEDS: ASCORBIC ACID 500 MG TABLET GT SCH (08:33)
[2021-10-13] MEDS: PANTOPRAZOLE 40 MG/PACK PACK GT SCH (08:33)
[2021-10-13] MEDS: PHENOBARBITAL 30 MG TABLET PO SCH ×2 (08:33→17:22)
[2021-10-13] MEDS: CHOLESTYRAMINE/ASPARTAME 4 G/PKT PACKET PO SCH ×2 (08:33→21:11)
[2021-10-13] MEDS: CARVEDILOL 12.5 MG TABLET PO SCH ×2 (08:34→20:37)
[2021-10-13] MEDS: DORZOLAMIDE OPTH 2% 10 ML BOTTLE OP SCH ×2 (08:36→17:39)
[2021-10-13] MEDS: DAKINS QUARTER STRENGTH (0.125%) 480 ML BOTTLE TOP SCH (08:36)
[2021-10-13] MEDS: CLOTRIMAZOLE 1% 15 GM TUBE TP SCH ×2 (08:38→17:39)
[2021-10-13] MEDS: NYSTATIN TOP POWDER 15 GM BOTTLE TP SCH ×2 (08:38→17:39)
[2021-10-13 08:40] LABS: CALCIUM, SERUM 9.2 mg/dL (8.5-10.1); CARBON DIOXIDE 23 mmol/L (21-32); CHLORIDE 99 mmol/L (98-107); CREATININE 1.7 mg/dL (0.6-1.3); GLUCOSE 110 mg/dL (74-106); POTASSIUM 3.7 mmol/L (3.5-5.1); SODIUM SERUM 134 mmol/L (136-145)
[2021-10-13 08:53] LABS: UREA NITROGEN, BLOOD 93 mg/dL (7-18)
[2021-10-13] MEDS: ARGININE/GLUTAMINE/CALCIUM BMB 1 EACH POWD.PACK GT SCH ×2 (08:56→17:21)
[2021-10-13 12:00] VITALS: BP 130/50
[2021-10-13 16:00] VITALS: BP 138/54
[2021-10-13 17:13] LABS: BAND % (MANUAL) 2 % (0.0-5.0); EOSINOPHILS % (MANUAL) 2 % (0-4); LYMPHOCYTES % (MANUAL) 13 % (16-48); MONOCYTES % (MANUAL) 6 % (0-11.0); NEUTROPHILS % (MANUAL) 76 (42-76)
--- NOTE | 2021-10-13 18:54 | NUR ---
AIRCRAFT SERVICER CLOSING NOTES PATIENT IN BED WITH EYES CLOSED, RESPONDS TO VERBAL AND PHYSICAL STIMULI. PATIENT IS NONVERBAL ON A MECHANICAL VENT WITH O2 SAT @ 100%. NO S/SX OF RESPIRATORY DISTRESS NOTED. TELE MONITOR SHOWS SR 64 BPM AT THIS TIME. XIOMARA PICC LINE INTACT AND PATENT. PEG TUBE INTACT AND PATENT WITH NEPHRO RUNNING @ 40ML/HR. DAUGHTER REMAINS AT BEDSIDE WITH PATIENT. SAFETY MEASURES IN PLACE: BED WHEELS LOCKED AND BED IN LOWEST POSITION WITH CALL LIGHT WITHIN REACH. WILL ENDORSE TO THE CUSTOMER ACCOUNTS ADVISOR NURSE FOR OTIS.
[2021-10-13 20:00] VITALS: BP 136/49
--- NOTE | 2021-10-13 20:38 | NUR ---
PATIENT'S DAUGHTER SAID THAT SHE DOES NOT WANT THE COREG TO BE GIVEN TONIGHT REGARDLESS OF THE BP.
--- NOTE | 2021-10-13 21:10 | NUR ---
REPORTS GIVEN TO NIMA PRAKASH FOR CONTINUITY OF CARE.
[2021-10-13] MEDS: LATANOPROST EYE DROP 0.005% 2.5 ML BOTTLE OP SCH (21:11)
[2021-10-14] VITALS: BP 134/53
[2021-10-14] MEDS: VANCOMYCIN HCL 125 MG/2.5 ML ORAL.SUSP GT SCH ×5 (00:16→23:56)
[2021-10-14] MEDS: METOCLOPRAMIDE HCL 10 MG/2 ML VIAL IV SCH ×4 (00:16→23:56)
[2021-10-14] MEDS: BLOOD SUGAR DIAGNOSTIC 1 EACH STRIP IN SCH ×5 (00:17→23:56)
[2021-10-14] MEDS: ACETAMINOPHEN 325 MG TABLET PO PRN (01:10)
[2021-10-14] MEDS: IPRATROPIUM NEB FS 0.5 MG/2.5 ML AMPUL.NEB IH SCH ×4 (01:27→19:30)
[2021-10-14 04:00] VITALS: BP 122/39
[2021-10-14] MEDS: PHENYTOIN SODIUM IV 100 MG/2ML VIAL IV SCH ×3 (05:20→21:06)
--- NOTE | 2021-10-14 06:45 | NUR ---
RN CLOSING NOTES Patient is A&Ox1, moves eyes and mouth only when touched. Had low grade fever at 99.5 overnight and started to sweat PRN tylenol given and temp went down to 98.4. Patient changed frequently d/t C.diff infection and wound care provided. No residual tolerating feeding well. Suctioned PRN, O2 mostly staying at 100% on mech vent. No s/s of hypo or hyperglycemic reactions noted. SR in 60s and 70s on monitor overnight.
[2021-10-14 07:05] LABS: BASOPHILS # (AUTO) 0.1 K/uL (0.0-0.2); BASOPHILS % (AUTO) 0.4 % (0.0-2.0); EOSINOPHILS % (AUTO) 2.5 % (0.0-6.0); HEMATOCRIT 22 % (33-45); HEMOGLOBIN 7.3 g/dL (11.5-14.8); LYMPHOCYTES # (AUTO) 1.3 K/uL (0.8-4.8); LYMPHOCYTES % (AUTO) 8.7 % (20.0-44.0); MEAN CORPUSCULAR HGB CONC 33 g/dl (31.0-36.0); MEAN CORPUSCULAR VOLUME 96 fL (82-100); MONOCYTES # (AUTO) 1.6 K/uL (0.1-1.30); MONOCYTES % (AUTO) 10.4 % (2.0-12.0); NEUTROPHILS # (AUTO) 11.7 K/uL (1.8-8.9); PLATELET COUNT (AUTO) 407 K/uL (150-450); RED BLOOD CELL COUNT(AUTO) 2.31 MIL/uL (4.0-5.2)
[2021-10-14 07:24] LABS: CARBON DIOXIDE 22 mmol/L (21-32); CHLORIDE 97 mmol/L (98-107); CREATININE 2.2 mg/dL (0.6-1.3); GLUCOSE 104 mg/dL (74-106); POTASSIUM 3.9 mmol/L (3.5-5.1); SODIUM SERUM 133 mmol/L (136-145)
--- NOTE | 2021-10-14 07:25 | NUR ---
AREA MECHANIC OPENING NOTES PATIENT IS RESTING IN BED WITH EYES CLOSED, RESPONDS TO VERBAL AND PHYSICAL STIMULI. PATIENT IS NONVERBAL ON A MECHANICAL VENT WITH O2 SAT @ 100%. NO S/SX OF RESPIRATORY DISTRESS NOTED. TELE MONITOR SHOWS SR 64 BPM AT THIS TIME. XIOMARA PICC LINE INTACT AND PATENT. PEG TUBE INTACT AND PATENT WITH NEPHRO RUNNING @ 40ML/HR. SAFETY MEASURES IN PLACE: BED WHEELS LOCKED AND BED IN LOWEST POSITION WITH CALL LIGHT WITHIN REACH. WILL CONTINUE TO MONITOR PATIENT.
[2021-10-14 07:38] LABS: UREA NITROGEN, BLOOD 120 mg/dL (7-18)
[2021-10-14 08:00] VITALS: BP 131/52
[2021-10-14] MEDS: CARVEDILOL 12.5 MG TABLET PO SCH ×2 (08:16→21:00)
--- NOTE | 2021-10-14 08:16 | NUR ---
RN NOTES PATIENT IS SCHEDULED TO HAVE HEMODIALYSIS TODAY. WILL HOLD 0900 COREG MEDICATION FOR HIGH BLOOD PRESSURE.
[2021-10-14] MEDS: ASCORBIC ACID 500 MG TABLET GT SCH (08:19)
[2021-10-14] MEDS: PHENOBARBITAL 30 MG TABLET PO SCH ×2 (08:19→18:37)
[2021-10-14] MEDS: PROSOURCE / PROSTAT (PYXIS) 30 ML UDC GT SCH ×2 (08:20→18:36)
[2021-10-14] MEDS: PANTOPRAZOLE 40 MG/PACK PACK GT SCH (08:20)
[2021-10-14] MEDS: CHLORHEXIDINE GLUCONATE 15 ML UDC MM SCH ×2 (08:20→18:40)
[2021-10-14] MEDS: SEVELAMER CARBONATE 800 MG POWD.PACK GT SCH ×3 (08:20→18:36)
[2021-10-14] MEDS: CHOLESTYRAMINE/ASPARTAME 4 G/PKT PACKET PO SCH ×2 (08:21→21:06)
[2021-10-14] MEDS: DORZOLAMIDE OPTH 2% 10 ML BOTTLE OP SCH ×2 (08:32→17:00)
[2021-10-14] MEDS: LATANOPROST EYE DROP 0.005% 2.5 ML BOTTLE OP SCH (08:32)
[2021-10-14] MEDS: NYSTATIN TOP POWDER 15 GM BOTTLE TP SCH ×2 (08:32→17:00)
[2021-10-14] MEDS: CLOTRIMAZOLE 1% 15 GM TUBE TP SCH ×2 (08:33→17:00)
[2021-10-14] MEDS: DAKINS QUARTER STRENGTH (0.125%) 480 ML BOTTLE TOP SCH (08:33)
[2021-10-14] MEDS: ARGININE/GLUTAMINE/CALCIUM BMB 1 EACH POWD.PACK GT SCH ×2 (09:40→18:36)
[2021-10-14] MEDS ORDERED: NYST15PO3 TP (11:03)
[2021-10-14] MEDS ORDERED: CLOT15CR35 TP (11:03)
[2021-10-14 12:00] VITALS: BP 135/70
[2021-10-14 16:00] VITALS: BP 140/52
[2021-10-14] MEDS: EPOETIN ALFA (4000 UNIT) 4,000 UNIT/ML VIAL IV SCH (16:32)
--- NOTE | 2021-10-14 19:30 | NUR ---
COMMUNICATIONS TECH NOTES RECEIVED ON BED,APPEARS COMFORTABLE ON LEFT SIDE POSITION,BREATHING NON LABORED,ON TRACH TO VENT,SETTINGS TOLERATED WELL.WITH XIOMARA PICC LINE FOR MEDS,SACRAL WOUND DRESSING INTACT,WITH GT FEEDING OF NEPRO AT 40ML/HR RATE,TOLERATED WELL,5ML RESIDUAL VOLUME NOTED.DAUGHTER AT BEDSIDE.AWAITING FOR HD TREATMENT.WILL CONTINUE TO MONITOR STATUS.
--- NOTE | 2021-10-14 19:36 | NUR ---
SILK EXAMINER CLOSING NOTES PATIENT IS RESTING IN BED WITH EYES CLOSED, RESPONDS TO VERBAL AND PHYSICAL STIMULI. PATIENT IS NONVERBAL ON A MECHANICAL VENT WITH O2 SAT @ 100%. NO S/SX OF RESPIRATORY DISTRESS NOTED. TELE MONITOR SHOWS SR 62 BPM AT THIS TIME. XIOMARA PICC LINE INTACT AND PATENT. PEG TUBE INTACT AND PATENT WITH NEPHRO RUNNING @ 40ML/HR. ALL ORDERS CARRIED OUT. SAFETY MEASURES IN PLACE: BED WHEELS LOCKED AND BED IN LOWEST POSITION WITH CALL LIGHT WITHIN REACH. PENDING HEMODIALYSIS TODAY. WILL ENDORSE TO REHAB CONSULTANT NURSE FOR OTIS.
[2021-10-14 20:00] VITALS: BP 140/68
[2021-10-14] MEDS: ALBUMIN 25% 25 GM in PREMIX 1 EA IV PRN (22:38)
[2021-10-15] VITALS: BP 144/58
--- NOTE | 2021-10-15 00:55 | NUR ---
REGIONAL LOSS PREVENTION MANAGER NOTES COMPLETED 3 HOURS OF HD TREATMENT,PROCEDURE TOLERATED WELL.PULLED OUT 1108 ML.LATEST VITAL SIGHS OF BP-144/51,HR-82,ORAL TEMP-98.9,O2 SAT 100%.,RR-16
[2021-10-15] MEDS: IPRATROPIUM NEB FS 0.5 MG/2.5 ML AMPUL.NEB IH SCH ×4 (01:52→19:26)
[2021-10-15 04:00] VITALS: BP 156/54
--- NOTE | 2021-10-15 04:45 | NUR ---
SUBSTANCE ABUSE CLINICIAN NOTES ACCU-CHECK BLOOD SUGAR CHECK 87,NO INSULIN COVERAGE. GT FEEDING IN PROGRESS.
[2021-10-15] MEDS: BLOOD SUGAR DIAGNOSTIC 1 EACH STRIP IN SCH ×3 (05:03→19:45)
[2021-10-15] MEDS: PHENYTOIN SODIUM IV 100 MG/2ML VIAL IV SCH ×3 (05:03→20:50)
[2021-10-15] MEDS: VANCOMYCIN HCL 125 MG/2.5 ML ORAL.SUSP GT SCH ×3 (05:30→18:00)
--- NOTE | 2021-10-15 05:45 | NUR ---
APPLIANCE ASSEMBLER NOTES MADE CALL TO DAUGHTER GARY,GAVE UPDATE REGARDING PATIENT.
--- NOTE | 2021-10-15 06:45 | NUR ---
MINCEMEAT MAKER NOTES NO SIGNIFICANT CHANGE IN STATUS,AFEBRILE 98.8,POSSIBLE TRANSFER TO SNF TODAY,CASE MANAGEMENT LOOKING FOR A PLACE.IN NO ACUTE DISTRESS.
[2021-10-15 06:46] LABS: CALCIUM, SERUM 10.3 mg/dL (8.5-10.1); CREATININE 1.3 mg/dL (0.6-1.3); POTASSIUM 3.5 mmol/L (3.5-5.1)
--- NOTE | 2021-10-15 07:36 | NUR ---
RN OPENING NOTE PT NONVERBAL. ON VENT TRACH, SETTING CHECKED. BEDBOUND. SACRAL WOUND PRESENT AND WOUND CARE ORDERED. G TUBE PRESENT WITH NEPHRO RUNNING AT 40 ML/HR. IV PRESENT ON XIOMARA PICCLINE AND SALINE LOCKED. LABS AND ORDERS REVIEWED. SAFETY MEASURES IN PLACE. SIDE RAILS RAISED. BED LOWERED. CALL LIGHT WITHIN REACH. WILL CONTINUE TO MONITOR.
[2021-10-15 08:00] VITALS: BP 127/48
[2021-10-15] MEDS: METOCLOPRAMIDE HCL 10 MG/2 ML VIAL IV SCH ×2 (08:56→17:45)
[2021-10-15] MEDS: PROSOURCE / PROSTAT (PYXIS) 30 ML UDC GT SCH ×2 (08:56→17:00)
[2021-10-15] MEDS: ARGININE/GLUTAMINE/CALCIUM BMB 1 EACH POWD.PACK GT SCH ×2 (08:56→17:00)
[2021-10-15] MEDS: PANTOPRAZOLE 40 MG/PACK PACK GT SCH (08:56)
[2021-10-15] MEDS: ASCORBIC ACID 500 MG TABLET GT SCH (08:56)
[2021-10-15] MEDS: CHLORHEXIDINE GLUCONATE 15 ML UDC MM SCH ×2 (08:56→17:45)
[2021-10-15] MEDS: SEVELAMER CARBONATE 800 MG POWD.PACK GT SCH ×3 (08:56→17:45)
[2021-10-15] MEDS: CHOLESTYRAMINE/ASPARTAME 4 G/PKT PACKET PO SCH ×2 (08:57→20:49)
[2021-10-15] MEDS: CARVEDILOL 12.5 MG TABLET PO SCH ×2 (08:57→20:50)
[2021-10-15] MEDS: PHENOBARBITAL 30 MG TABLET PO SCH ×2 (08:57→17:45)
[2021-10-15] MEDS: DAKINS QUARTER STRENGTH (0.125%) 480 ML BOTTLE TOP SCH (08:57)
[2021-10-15] MEDS: CLOTRIMAZOLE 1% 15 GM TUBE TP SCH ×2 (08:58→19:09)
[2021-10-15] MEDS: DORZOLAMIDE OPTH 2% 10 ML BOTTLE OP SCH ×2 (08:58→19:09)
[2021-10-15] MEDS: NYSTATIN TOP POWDER 15 GM BOTTLE TP SCH ×2 (08:58→19:08)
[2021-10-15 08:59] LABS: BASOPHILS # (AUTO) 0.1 K/uL (0.0-0.2); BASOPHILS % (AUTO) 0.4 % (0.0-2.0); EOSINOPHILS % (AUTO) 1.7 % (0.0-6.0); HEMATOCRIT 24 % (33-45); HEMOGLOBIN 7.8 g/dL (11.5-14.8); LYMPHOCYTES # (AUTO) 1.5 K/uL (0.8-4.8); LYMPHOCYTES % (AUTO) 8.7 % (20.0-44.0); MEAN CORPUSCULAR HGB CONC 33 g/dl (31.0-36.0); MEAN CORPUSCULAR VOLUME 97 fL (82-100); MONOCYTES # (AUTO) 1.4 K/uL (0.1-1.30); MONOCYTES % (AUTO) 8.4 % (2.0-12.0); NEUTROPHILS # (AUTO) 13.6 K/uL (1.8-8.9); NEUTROPHILS % (AUTO) 80.8 % (43.0-81.0); PLATELET COUNT (AUTO) 440 K/uL (150-450); RED BLOOD CELL COUNT(AUTO) 2.48 MIL/uL (4.0-5.2); WHITE BLOOD COUNT (AUTO) 16.8 K/uL (4.3-11.0)
[2021-10-15 12:00] VITALS: BP 134/52
[2021-10-15] MEDS ORDERED: VANC125C11 GT (15:55)
--- NOTE | 2021-10-15 19:45 | NUR ---
RN OPENING NOTE PATIENT IN BED, PATIENT NONVERBAL AND OBTUNDED. DAUGHTER AT BEDSIDE. PATIENT IS ON MECH VENT, TOLERATING CURRENT SETTINGS. PATIENT'S TELE MONITOR READS 84 BPM. PATIENT HAS PROCTOR CATHETER IN PLACE. TF RUNNING NEPRO 40 ML/HR, TOLERATING WELL, NO RESIDUAL AT THIS TIME. XIOMARA PICC LINE, PATENT AND INTACT. PAIN NOT OBSERVED. SAFETY MEASURES IN PLACE: BED LOCKED AND IN LOWEST POSITION, CALL LIGHT WITHIN REACH, SIDE RAILS UP, HOB ELEVATED. WILL MONITOR PATIENT CLOSELY. Addendum: 10/16/21 at 0736 by BENEDICT ACOSTA RN NO PROCTOR IN PLACE: MISTAKE
--- NOTE | 2021-10-15 19:47 | NUR ---
RN CLOSING NOTE PT IN STABLE CONDITION. NEEDS MET. SAFETY MEASURES IN PLACE. SIDE RAILS RAISED. BED LOWERED. CALL LIGHT WITHIN REACH. REPORT GIVEN TO NIGHT NURSE FOR OTIS.
[2021-10-15 20:00] VITALS: BP 122/52
[2021-10-15] MEDS: ACETAMINOPHEN 325 MG TABLET PO PRN (20:50)
--- NOTE | 2021-10-15 20:50 | NUR ---
TYLENOL GIVEN FOR TEMP 99.8 F
[2021-10-15] MEDS: LATANOPROST EYE DROP 0.005% 2.5 ML BOTTLE OP SCH (21:04)
[2021-10-16] VITALS: BP 118/50
[2021-10-16] MEDS: METOCLOPRAMIDE HCL 10 MG/2 ML VIAL IV SCH ×3 (00:10→16:26)
[2021-10-16] MEDS: BLOOD SUGAR DIAGNOSTIC 1 EACH STRIP IN SCH ×4 (00:11→18:41)
[2021-10-16] MEDS: VANCOMYCIN HCL 125 MG/2.5 ML ORAL.SUSP GT SCH ×4 (00:11→18:16)
--- NOTE | 2021-10-16 00:30 | NUR ---
BS 79 MG/DL, GAVE JUICE THROUGH GT WILL RECHECK AT A LATER TIME
--- NOTE | 2021-10-16 01:00 | NUR ---
RN NOTE BS 88 MG/DL, ON CONTINUOUS TF, WILL CONTINUE TO MONITOR FOR HYPOGLYCEMIA.
[2021-10-16] MEDS: IPRATROPIUM NEB FS 0.5 MG/2.5 ML AMPUL.NEB IH SCH ×4 (01:14→20:28)
--- NOTE | 2021-10-16 01:46 | NUR ---
RN NOTE NOTIFIED BY LAB, THAT PATIENT'S BLOOD CX POSITIVE FOR GRAM POSITIVE COCCI FOR ONE BOTTLE, PATIENT CURRENTLY ON VANCOCIN ORAL. WILL ENDORSE TO MORNING SHIFT.
[2021-10-16 04:00] VITALS: BP 129/53
[2021-10-16] MEDS: PHENYTOIN SODIUM IV 100 MG/2ML VIAL IV SCH ×3 (05:25→21:38)
--- NOTE | 2021-10-16 05:53 | NUR ---
RN NOTE BS 91 MG/DL, ON CONTINUOUS TF
[2021-10-16 06:47] LABS: BASOPHILS # (AUTO) 0.1 K/uL (0.0-0.2); BASOPHILS % (AUTO) 0.6 % (0.0-2.0); EOSINOPHILS % (AUTO) 2.3 % (0.0-6.0); HEMATOCRIT 25 % (33-45); HEMOGLOBIN 8.1 g/dL (11.5-14.8); LYMPHOCYTES # (AUTO) 1.5 K/uL (0.8-4.8); LYMPHOCYTES % (AUTO) 9.2 % (20.0-44.0); MEAN CORPUSCULAR HGB CONC 32 g/dl (31.0-36.0); MEAN CORPUSCULAR VOLUME 97 fL (82-100); MONOCYTES # (AUTO) 1.6 K/uL (0.1-1.30); MONOCYTES % (AUTO) 9.9 % (2.0-12.0); NEUTROPHILS # (AUTO) 12.9 K/uL (1.8-8.9); PLATELET COUNT (AUTO) 467 K/uL (150-450); RED BLOOD CELL COUNT(AUTO) 2.59 MIL/uL (4.0-5.2); WHITE BLOOD COUNT (AUTO) 16.5 K/uL (4.3-11.0)
[2021-10-16 07:20] LABS: CALCIUM, SERUM 10.3 mg/dL (8.5-10.1); CARBON DIOXIDE 25 mmol/L (21-32); CHLORIDE 98 mmol/L (98-107); CREATININE 1.8 mg/dL (0.6-1.3); GLUCOSE 95 mg/dL (74-106); SODIUM SERUM 134 mmol/L (136-145)
[2021-10-16 07:30] LABS: UREA NITROGEN, BLOOD 82 mg/dL (7-18)
--- NOTE | 2021-10-16 07:30 | NUR ---
RN OPENING TELE NOTES RECEIVED PATIENT IN BED SLEEPING. OPEN HER EYES UPON TACTILE STIMULI. PATIENT ON AIRBORNE PRECAUTION DUE TO POSSIBLE TB. ON TELE MONITORING .ON MECHANICAL VENTILATOR,SPO2-100%, TRACH P#7, AC-14, TV- 500 ,FI02-30 ON PEG TUBE PATENT ON NEPHRO AT 40 ML/HR, XIOMARA-MIDLINE PATENT, RUC-HD PORT DRY DRESSING, NO DRAINAGE. SAFETY PRECAUTIONS IN PLACED: BED LOCKED ON LOWEST POSITION, SIDE RAILS UPX2. WILL CONTINUE TO MONITOR.
--- NOTE | 2021-10-16 07:31 | NUR ---
RN CLOSING NOTE PATIENT NOT IN ANY APPARENT DISTRESS. CURRENTLY TOLERATING MECH VENT SETTINGS. ALL NEEDS MET AND ATTENDED, ALL ORDERS CARRIED OUT. WOUND CARE RENDERED. ENDORSED TO DAY SHIFT NURSE FOR OTIS. Addendum: 10/16/21 at 0732 by BENEDICT ACOSTA RN SR 87 BPM
[2021-10-16] MEDS: SEVELAMER CARBONATE 800 MG POWD.PACK GT SCH ×3 (08:29→18:14)
[2021-10-16] MEDS: CARVEDILOL 12.5 MG TABLET PO SCH ×2 (09:00→21:00)
[2021-10-16] MEDS: CHOLESTYRAMINE/ASPARTAME 4 G/PKT PACKET PO SCH ×2 (09:17→21:38)
[2021-10-16] MEDS: PHENOBARBITAL 30 MG TABLET PO SCH ×2 (09:18→18:14)
[2021-10-16] MEDS: PROSOURCE / PROSTAT (PYXIS) 30 ML UDC GT SCH ×2 (09:18→18:15)
[2021-10-16] MEDS: ASCORBIC ACID 500 MG TABLET GT SCH (09:18)
[2021-10-16] MEDS: CHLORHEXIDINE GLUCONATE 15 ML UDC MM SCH ×2 (09:18→18:14)
[2021-10-16] MEDS: ARGININE/GLUTAMINE/CALCIUM BMB 1 EACH POWD.PACK GT SCH ×2 (09:18→18:14)
[2021-10-16] MEDS: PANTOPRAZOLE 40 MG/PACK PACK GT SCH (09:18)
[2021-10-16] MEDS: DORZOLAMIDE OPTH 2% 10 ML BOTTLE OP SCH ×2 (09:19→18:14)
[2021-10-16] MEDS: NYSTATIN TOP POWDER 15 GM BOTTLE TP SCH ×2 (09:19→18:14)
[2021-10-16] MEDS: DAKINS QUARTER STRENGTH (0.125%) 480 ML BOTTLE TOP SCH (09:20)
[2021-10-16] MEDS: CLOTRIMAZOLE 1% 15 GM TUBE TP SCH ×2 (09:21→18:15)
[2021-10-16] MEDS ORDERED: D5W IV ONE (09:25)
[2021-10-16 10:18] VITALS: BP 125/37
[2021-10-16] MEDS: EPOETIN ALFA (4000 UNIT) 4,000 UNIT/ML VIAL IV SCH (15:48)
[2021-10-16] MEDS ORDERED: NS 0.9% IV SCH (19:00)
[2021-10-16] MEDS ORDERED: DAPTOMYCIN IV SCH (19:00)
--- NOTE | 2021-10-16 19:00 | NUR ---
FEATURE WRITER CLOSING NOTES PATIENT IN BED SLEEPING. OPEN HER EYES UPON TACTILE STIMULI. PATIENT ON AIRBORNE PRECAUTION DUE TO POSSIBLE TB. ON TELE MONITORING .ON MECHANICAL VENTILATOR,SPO2-100%, TRACH P#7, AC-14, TV- 500 ,FI02-30 ON PEG TUBE PATENT ON NEPHRO AT 40 ML/HR, XIOMARA-MIDLINE PATENT, RUC-HD PORT DRY DRESSING, NO DRAINAGE. DIALYSYS DONE , 2 L OUTPUT.DUE MEDS AND TREATMENTS GIVEN ORDERED.SAFETY PRECAUTIONS IN PLACED: BED LOCKED ON LOWEST POSITION, SIDE RAILS UPX2. WILL ENDORSE INCOMING SHIFT FOR OTIS..
--- NOTE | 2021-10-16 19:27 | NUR ---
NETBACKUP ADMINISTRATOR OPENING NOTE PT NONVERBAL. ON VENT TRACH, SETTING CHECKED. BEDBOUND. G TUBE PRESENT WITH NEPHRO RUNNING AT 40 ML/HR. IV PRESENT ON XIOMARA PICCLINE AND SALINE LOCKED. SAFETY MEASURES IN PLACE. SIDE RAILS RAISED. BED LOWERED. CALL LIGHT WITHIN REACH. WILL CONTINUE TO MONITOR.
[2021-10-16 20:00] VITALS: BP 144/58
[2021-10-16] MEDS: ACETAMINOPHEN 325 MG TABLET PO PRN (21:38)
[2021-10-16] MEDS: LATANOPROST EYE DROP 0.005% 2.5 ML BOTTLE OP SCH (22:33)
[2021-10-17] VITALS: BP 123/44
[2021-10-17] MEDS: BLOOD SUGAR DIAGNOSTIC 1 EACH STRIP IN SCH ×2 (00:29→05:39)
[2021-10-17] MEDS: VANCOMYCIN HCL 125 MG/2.5 ML ORAL.SUSP GT SCH ×2 (00:29→05:13)
[2021-10-17] MEDS: METOCLOPRAMIDE HCL 10 MG/2 ML VIAL IV SCH ×2 (00:30→09:06)
[2021-10-17] MEDS: IPRATROPIUM NEB FS 0.5 MG/2.5 ML AMPUL.NEB IH SCH ×2 (01:21→07:24)
[2021-10-17 04:00] VITALS: BP 128/44
[2021-10-17] MEDS: PHENYTOIN SODIUM IV 100 MG/2ML VIAL IV SCH (05:14)
--- NOTE | 2021-10-17 06:46 | NUR ---
TRIMMING OPERATOR CLOSING NOTE PT NONVERBAL. ON VENT TRACH, SETTING CHECKED. BEDBOUND CURRENTLY NPO FOR CT OF THE ABDOMEN AND PELVIS W CONTRAST SINCE MIDNIGHT. IV PRESENT ON XIOMARA PICCLINE AND SALINE LOCKED. SAFETY MEASURES IN PLACE. ALL DUE MEDS GIVEN AND TOLERATED WELL.SIDE RAILS RAISED. BED LOWERED. CALL LIGHT WITHIN REACH. WILL ENDORSE CARE TO DAY SHIFT NURSE.
[2021-10-17 07:11] LABS: BASOPHILS # (AUTO) 0.1 K/uL (0.0-0.2); BASOPHILS % (AUTO) 0.7 % (0.0-2.0); EOSINOPHILS % (AUTO) 1.4 % (0.0-6.0); HEMATOCRIT 25 % (33-45); LYMPHOCYTES # (AUTO) 1.9 K/uL (0.8-4.8); LYMPHOCYTES % (AUTO) 10.2 % (20.0-44.0); MEAN CORPUSCULAR HGB CONC 32 g/dl (31.0-36.0); MEAN CORPUSCULAR VOLUME 98 fL (82-100); NEUTROPHILS # (AUTO) 14.2 K/uL (1.8-8.9); NEUTROPHILS % (AUTO) 76.7 % (43.0-81.0); PLATELET COUNT (AUTO) 464 K/uL (150-450); RED BLOOD CELL COUNT(AUTO) 2.55 MIL/uL (4.0-5.2); WHITE BLOOD COUNT (AUTO) 18.6 K/uL (4.3-11.0)
[2021-10-17 07:43] LABS: CALCIUM, SERUM 10.8 mg/dL (8.5-10.1); CARBON DIOXIDE 23 mmol/L (21-32); CHLORIDE 99 mmol/L (98-107); CREATININE 1.6 mg/dL (0.6-1.3); GLUCOSE 91 mg/dL (74-106); POTASSIUM 3.7 mmol/L (3.5-5.1); SODIUM SERUM 136 mmol/L (136-145); UREA NITROGEN, BLOOD 73 mg/dL (7-18)
[2021-10-17 08:00] VITALS: BP 124/56
[2021-10-17] MEDS: PANTOPRAZOLE 40 MG/PACK PACK GT SCH (09:04)
[2021-10-17] MEDS: CHLORHEXIDINE GLUCONATE 15 ML UDC MM SCH (09:04)
[2021-10-17] MEDS: CHOLESTYRAMINE/ASPARTAME 4 G/PKT PACKET PO SCH (09:04)
[2021-10-17 09:06] VITALS: BP 124/56
[2021-10-17] MEDS: ASCORBIC ACID 500 MG TABLET GT SCH (09:06)
[2021-10-17] MEDS: PHENOBARBITAL 30 MG TABLET PO SCH (09:06)
[2021-10-17] MEDS: CARVEDILOL 12.5 MG TABLET PO SCH (09:06)
[2021-10-17] MEDS: SEVELAMER CARBONATE 800 MG POWD.PACK GT SCH (09:06)
[2021-10-17] MEDS: PROSOURCE / PROSTAT (PYXIS) 30 ML UDC GT SCH (09:07)
[2021-10-17] MEDS: ARGININE/GLUTAMINE/CALCIUM BMB 1 EACH POWD.PACK GT SCH (09:07)
[2021-10-17] MEDS: DORZOLAMIDE OPTH 2% 10 ML BOTTLE OP SCH (09:07)
[2021-10-17] MEDS: CLOTRIMAZOLE 1% 15 GM TUBE TP SCH (09:08)
[2021-10-17] MEDS: DAKINS QUARTER STRENGTH (0.125%) 480 ML BOTTLE TOP SCH (09:08)
[2021-10-17] MEDS: NYSTATIN TOP POWDER 15 GM BOTTLE TP SCH (09:08)
== END 2021-10-17 11:00 | DRG 870 ==
LOC: ER 19:23 → MEDSG1 08-08 02:12 → TELE1 08-08 02:25 → TELE 08-13 22:23 → MED 08-15 18:21 → TELE 08-15 18:24 → ICU 09-30 10:56 → MED 10-03 21:05 → TELE 10-03 21:46 → UNDODISIN 10-17 10:15
PROVIDERS: ADMIT Family Medicine; ATTEND Internal Medicine
PROC: 30233N1 Transfusion of Nonautologous Red Blood Cells into Peripheral Vein, Percutaneous Approach (ICD-10-PCS; 2021-08-07)
PROC: 5A1955Z Respiratory Ventilation, Greater than 96 Consecutive Hours (ICD-10-PCS; principal; 2021-08-08)
PROC: 5A1D70Z Performance of Urinary Filtration, Intermittent, Less than 6 Hours Per Day (ICD-10-PCS; 2021-08-08)
PROC: 05HC33Z Insertion of Infusion Device into Left Basilic Vein, Percutaneous Approach (ICD-10-PCS; 2021-08-09)
PROC: 0W9B3ZZ Drainage of Left Pleural Cavity, Percutaneous Approach (ICD-10-PCS; 2021-08-12)
PROC: 05HB33Z Insertion of Infusion Device into Right Basilic Vein, Percutaneous Approach (ICD-10-PCS; 2021-09-08)
PROC: 05HA33Z Insertion of Infusion Device into Left Brachial Vein, Percutaneous Approach (ICD-10-PCS; 2021-09-16)
PROC: 02HV33Z Insertion of Infusion Device into Superior Vena Cava, Percutaneous Approach (ICD-10-PCS; 2021-09-26)
PROC: B548ZZA Ultrasonography of Superior Vena Cava, Guidance (ICD-10-PCS; 2021-09-26)
DX: A41.9 Sepsis, unspecified organism (principal); L89.154 Pressure ulcer of sacral region, stage 4; N18.6 End stage renal disease; J15.9 Unspecified bacterial pneumonia; J15.6 Pneumonia due to other Gram-negative bacteria; I50.33 Acute on chronic diastolic (congestive) heart failure; E43 Unspecified severe protein-calorie malnutrition; J96.21 Acute and chronic respiratory failure with hypoxia; R53.2 Functional quadriplegia; J86.9 Pyothorax without fistula; J69.0 Pneumonitis due to inhalation of food and vomit; G92.8 Other toxic encephalopathy; R57.1 Hypovolemic shock; D68.59 Other primary thrombophilia; N39.0 Urinary tract infection, site not specified; Z99.11 Dependence on respirator [ventilator] status; E87.1 Hypo-osmolality and hyponatremia; I13.2 Hypertensive heart and chronic kidney disease with heart failure and with stage 5 chronic kidney disease, or end stage renal disease; Z16.35 Resistance to multiple antimicrobial drugs; J98.11 Atelectasis; M46.28 Osteomyelitis of vertebra, sacral and sacrococcygeal region; B49 Unspecified mycosis; A04.72 Enterocolitis due to Clostridium difficile, not specified as recurrent; J90 Pleural effusion, not elsewhere classified; K62.5 Hemorrhage of anus and rectum; J95.851 Ventilator associated pneumonia; E11.22 Type 2 diabetes mellitus with diabetic chronic kidney disease; G40.909 Epilepsy, unspecified, not intractable, without status epilepticus; Z86.73 Personal history of transient ischemic attack (TIA), and cerebral infarction without residual deficits; Z93.0 Tracheostomy status; Z99.2 Dependence on renal dialysis; Z86.16 Personal history of COVID-19; K21.9 Gastro-esophageal reflux disease without esophagitis; D63.1 Anemia in chronic kidney disease; E11.43 Type 2 diabetes mellitus with diabetic autonomic (poly)neuropathy; Z20.822 Contact with and (suspected) exposure to COVID-19; Y95 Nosocomial condition; Z93.1 Gastrostomy status; Z85.3 Personal history of malignant neoplasm of breast; Z88.8 Allergy status to other drugs, medicaments and biological substances; Z79.51 Long term (current) use of inhaled steroids; Z79.4 Long term (current) use of insulin; Z79.899 Other long term (current) drug therapy; Z88.0 Allergy status to penicillin; Z79.2 Long term (current) use of antibiotics; I16.0 Hypertensive urgency; E87.6 Hypokalemia; E83.52 Hypercalcemia; F01.50 Vascular dementia, unspecified severity, without behavioral disturbance, psychotic disturbance, mood disturbance, and anxiety; E11.51 Type 2 diabetes mellitus with diabetic peripheral angiopathy without gangrene; Z74.09 Other reduced mobility; E11.65 Type 2 diabetes mellitus with hyperglycemia; H40.9 Unspecified glaucoma; I27.20 Pulmonary hypertension, unspecified; K31.84 Gastroparesis; K64.9 Unspecified hemorrhoids; M85.80 Other specified disorders of bone density and structure, unspecified site; Z86.19 Personal history of other infectious and parasitic diseases; S60.420A Blister (nonthermal) of right index finger, initial encounter; S40.821A Blister (nonthermal) of right upper arm, initial encounter; X58.XXXA Exposure to other specified factors, initial encounter; S51.002A Unspecified open wound of left elbow, initial encounter; R13.10 Dysphagia, unspecified; E11.69 Type 2 diabetes mellitus with other specified complication; B96.5 Pseudomonas (aeruginosa) (mallei) (pseudomallei) as the cause of diseases classified elsewhere; L27.1 Localized skin eruption due to drugs and medicaments taken internally; T36.0X5A Adverse effect of penicillins, initial encounter; Y92.89 Other specified places as the place of occurrence of the external cause; T50.995A Adverse effect of other drugs, medicaments and biological substances, initial encounter; N89.8 Other specified noninflammatory disorders of vagina; Y84.8 Other medical procedures as the cause of abnormal reaction of the patient, or of later complication, without mention of misadventure at the time of the procedure; Y92.009 Unspecified place in unspecified non-institutional (private) residence as the place of occurrence of the external cause
CPT/HCPCS: 31720; 36410; 36415; 36569; 71045-TC; 71250-TC; 72192-TC; 80048-TC; 80053-TC; 80061-TC; 80202-TC; 81001; 82272-TC; 82550-TC; 82962-TC; 83540-TC; 83605-TC; 83735-TC; 83880; 84100-TC; 84155-TC; 84484-TC; 85025-TC; 85027-TC; 85385-TC; 85610-TC; 85652-TC; 86140-TC; 86480; 86704; 86706; 86803; 86850-TC; 86880-TC; 87040-TC; 87070-TC; 87075-TC; 87081-TC; 87086-TC; 87102-TC; 87186-TC; 87806; 88108-TC; 88305-TC; 89051-TC; 90935-TC; 94002-TC; 94003-TC; 94640-TC; 94760-TC; 94762-TC; 94799-TC; 99082-TC; A4216; A4217; A4623; A6253; A6403; A7526; A9512; A9560; C9113; G0378; J0295; J0713; J0770; J0878; J0885; J1165; J1644; J1815; J2185; J2248; J2543; J2597; J2765; J3260; J3370; J3480; J3490; J7030; J7040; J7050; J7060; J8597; P9016; P9047; U0003

== ENCOUNTER 2021-10-17 10:50 | Inpatient (IN) | payer MEDICARE, OTHER ==
[~2021-10-17] VITALS: Ht 160 cm; Wt 79.6 kg
[~2021-10-17 10:50] MED LIST changes: +ASCO500T21 GT; +CLOT15CR35 TP; -COLI150V12 IV; -EPOE4000 IJ; +EPOE4000 IV; +LATA2.5D15 EACHEYE; -LATA2.5D15 OP; -Linezolid PO; +MIDO5TAB4 PO; +NYST15PO3 TP; +VANC125C11 GT
--- NOTE | 2021-10-17 13:00 | NUR ---
RN NOTE- INITIATED CARE OF PT FROM NIMA URIOSTEGUI. REPORT RECEIVED. PT STABLE. WILL MONITOR / ASSIST
--- NOTE | 2021-10-17 13:05 | NUR ---
RN NOTE- PT VS- 112/46, HR- M68, RR- 16, T- 98.6, O2 SATS 100%. PT OBTUNDED, COMFORTABLE IN NO APPARENT DISTRESS. NEEDS ATTENDED. ADMITTED TO SUBACUTE. DX- ANEMIA, RESP FAILURE, GERD, CRF, BREAST CA, CVA, COPD, DM. PT RECEIVES HD MWF. SHE IS ALLERGIC TO IRON / MAG SULFATE, PIPERACILLIN, TOZOBACTAM. SHE IS INCONTINENT. PT HAS GT NEPRO AT 400 CC /HR. XIOMARA PICC LINE IS PATENT. ACCU CHECKS PT TRENDING 90-110 STABLE. SACRAL WOUND PRESENT . PHOTOS TO BE TAKEN. SIDE RAILS UP, BED LOCKED, MONITOR, ASSIST. RT TO COMPLETE BREATHING TX PRN.
--- NOTE | 2021-10-17 13:23 | NUR ---
Pt's daughter Kiara informed about outpatient HD today. She agreed that pt will be transported for dialysis.
--- NOTE | 2021-10-17 13:35 | NUR ---
RN NOTE- PT LEFT UNIT FOR HD
[2021-10-17] MEDS ORDERED: DEXTROSE 50%-WATER 50 ML DISP.SYRIN IV PRN (16:19)
[2021-10-17] MEDS ORDERED: CARVEDILOL 12.5 MG TABLET PO SCH (16:19)
[2021-10-17] MEDS ORDERED: CHOLESTYRAMINE/ASPARTAME 4 G/PKT PACKET PO SCH (16:19)
[2021-10-17] MEDS ORDERED: MINOXIDIL (2.5MG) 2.5 MG TABLET PO PRN (16:19)
[2021-10-17] MEDS ORDERED: NEPRO 1,000 ML BOTTLE GT PRN (16:19)
[2021-10-17] MEDS: METOCLOPRAMIDE HCL 10 MG/2 ML VIAL IV SCH ×2 (16:19→23:57)
[2021-10-17] MEDS ORDERED: MIDODRINE HCL (5MG) 5 MG TABLET PO PRN (16:19)
[2021-10-17] MEDS ORDERED: EPOETIN ALFA (4000 UNIT) 4,000 UNIT/ML VIAL IV SCH (16:19)
[2021-10-17] MEDS ORDERED: ONDANSETRON HCL/PF 4 MG/2 ML VIAL IVP PRN (16:19)
[2021-10-17] MEDS ORDERED: CLONIDINE HCL 0.1 MG TABLET PO PRN (16:19)
[2021-10-17] MEDS ORDERED: NS 0.9% IV SCH (16:19)
[2021-10-17] MEDS ORDERED: DAPTOMYCIN IV SCH (16:19)
[2021-10-17] MEDS ORDERED: PANTOPRAZOLE 40 MG/PACK PACK GT SCH (16:19)
[2021-10-17] MEDS ORDERED: MAGNESIUM HYDROXIDE 30 ML UDC PO PRN (16:19)
[2021-10-17] MEDS ORDERED: MAG HYDROX/AL HYDROX/SIMETH 30 ML UDC PO PRN (16:19)
[2021-10-17] MEDS ORDERED: ACETAMINOPHEN 325 MG TABLET PO PRN (16:19)
[2021-10-17] MEDS ORDERED: MAG HYDROX/AL HYDROX/SIMETH 30 ML UDC GT PRN (16:25)
[2021-10-17] MEDS ORDERED: MAGNESIUM HYDROXIDE 30 ML UDC GT PRN (16:25)
[2021-10-17] MEDS ORDERED: MINOXIDIL (2.5MG) 2.5 MG TABLET GT PRN (16:26)
[2021-10-17] MEDS: PHENOBARBITAL 30 MG TABLET GT SCH (17:00)
[2021-10-17] MEDS: DORZOLAMIDE OPTH 2% 10 ML BOTTLE OP SCH (17:00)
[2021-10-17] MEDS: ARGININE/GLUTAMINE/CALCIUM BMB 1 EACH POWD.PACK GT SCH (17:00)
[2021-10-17] MEDS: PROSOURCE / PROSTAT (PYXIS) 30 ML UDC GT SCH (17:00)
[2021-10-17] MEDS: CHLORHEXIDINE GLUCONATE 15 ML UDC MM SCH (17:00)
--- NOTE | 2021-10-17 17:34 | NUR ---
NIMA NOTE- RETURNED FROM HD. 1 L REMOVED. VS STABLE Addendum: 10/17/21 at 1845 by CLARA BUTT RN ABOVE INFORMATION SHOULD READ 63.1 KG BEFORE HD, 62.1 KG AFTER HD.
[2021-10-17] MEDS: SEVELAMER CARBONATE 800 MG POWD.PACK GT SCH (18:00)
[2021-10-17] MEDS: VANCOMYCIN HCL 125 MG/2.5 ML ORAL.SUSP GT SCH ×2 (18:00→23:55)
--- NOTE | 2021-10-17 18:45 | NUR ---
RN CLOSING NOTE- PT IN BED, BATH GIVEN, DRESSING CHANGED TO SACRUM PER ORDERS, NEW KLAUS VALVE INSERTED FOR GT. GT RUNNING NEPRO AT 40/HR.VS STABLE, OXYGEN SATS AT 100%. SIDE RAILS UP, BED LOCKED . HOB RAISED, NEEDS ATTENDED. MONITOR / ASSIST
[2021-10-17] MEDS: IPRATROPIUM NEB FS 0.5 MG/2.5 ML AMPUL.NEB NEB SCH (19:30)
[2021-10-17 20:00] VITALS: BP 105/38
[2021-10-17] MEDS: CARVEDILOL 12.5 MG TABLET GT SCH (21:00)
[2021-10-17] MEDS: PHENYTOIN SODIUM IV 100 MG/2ML VIAL IV SCH (21:55)
[2021-10-17] MEDS: CLOTRIMAZOLE 1% 15 GM TUBE TP SCH ×3 (21:55)
[2021-10-17] MEDS: NYSTATIN TOP POWDER 15 GM BOTTLE TP SCH (21:55)
[2021-10-17] MEDS: MINERAL OIL/PETROLATUM,WHITE 120 GM JAR TP SCH (21:55)
[2021-10-17] MEDS: CHOLESTYRAMINE/ASPARTAME 4 G/PKT PACKET GT SCH (21:55)
[2021-10-17] MEDS ORDERED: IV NS 0.9% 250 ML IV ONE (22:00)
--- NOTE | 2021-10-17 22:00 | NUR ---
RN NOTE PATIENT NOTED WITH LOW BP, SPOKE TO RASHEED SELF WHO SAID TO PAGE DR. BEACH BECAUSE PATIENT IS A SUBACUTE PATIENT. PER DR. BEACH, GIVEN BOLUS OF 250 ML. ORDER CONFIRMED AND CARRIED OUT. WILL CONTINUE TO MONITOR PATIENT
[2021-10-17] MEDS: LATANOPROST EYE DROP 0.005% 2.5 ML BOTTLE OP SCH (22:05)
--- NOTE | 2021-10-18 | NUR ---
RN NOTE LAB CALLED REGARDING BLOOD CULTURE POSITIVE FOR GRAM POSITIVE COCCI
[2021-10-18 00:32] VITALS: BP 107/43
[2021-10-18] MEDS: IPRATROPIUM NEB FS 0.5 MG/2.5 ML AMPUL.NEB NEB SCH ×4 (01:30→19:15)
[2021-10-18] MEDS: NEPRO 1,000 ML BOTTLE GT PRN (03:03)
[2021-10-18 04:30] VITALS: BP 115/54
[2021-10-18] MEDS: PHENYTOIN SODIUM IV 100 MG/2ML VIAL IV SCH ×3 (05:06→21:34)
[2021-10-18] MEDS: VANCOMYCIN HCL 125 MG/2.5 ML ORAL.SUSP GT SCH ×3 (06:37→17:46)
[2021-10-18] MEDS: BLOOD SUGAR DIAGNOSTIC 1 EACH STRIP IN SCH ×3 (06:38→18:15)
--- NOTE | 2021-10-18 07:06 | NUR ---
RN CLOSING NOTE PATIENT SLEEPING IN BED, PT NON-VERBAL. PT ON VENTILATOR AND TOLERATING WELL, NO S/S OF DISTRESS OR SOB NOTED, BREATHING EVEN AND UNLABORED, SPO2: 100%. LEFT UPPER ARM PICC LINE INTACT AND SALINE LOCKED. MEDICATIONS GIVEN ORDERED, PT NEEDS MET THROUGHOUT SHIFT. LATEST VITAL SIGNS WNL. WOUND DRESSING ON SACRUM DONE, PHOTO TAKEN. GT FEEDING RUNNING NEPRO @ 40 ML/HR, PT TOLERATING WELL. SAFETY MEASURES IN PLACE: CALL LIGHT WITHIN REACH, SIDE RAILS UP X 3, BED LOCKED IN LOW POSITION, BED ALARM ON, HOB ELEVATED. WILL ENDORSE TO DAY SHIFT NURSE FOR CONTINUITY OF CARE
--- NOTE | 2021-10-18 07:57 | NUR ---
RN OPENING NOTE Patient in bed, sleeping. Patient is obtunded and non-verbal. On mechanical ventilator, tolerating settings well. No s/s of distress noted. IV access on XIOMARA PICC line, SL intact and patent. G-tube intact running Nepro at 40 ml/hr. Safety precautions in place: bed in low, locked position; siderails up x 2; call light within reach. Will continue to monitor.
[2021-10-18 08:00] VITALS: BP 110/40
[2021-10-18] MEDS: CARVEDILOL 12.5 MG TABLET GT SCH ×2 (09:00→21:00)
[2021-10-18] MEDS: CHLORHEXIDINE GLUCONATE 15 ML UDC MM SCH ×2 (09:21→17:46)
[2021-10-18] MEDS: METOCLOPRAMIDE HCL 10 MG/2 ML VIAL IV SCH ×2 (09:22→17:46)
[2021-10-18] MEDS: PANTOPRAZOLE 40 MG/PACK PACK GT SCH (09:22)
[2021-10-18] MEDS: PHENOBARBITAL 30 MG TABLET GT SCH ×2 (09:22→18:54)
[2021-10-18] MEDS: ASCORBIC ACID 500 MG TABLET GT SCH (09:22)
[2021-10-18] MEDS: CLOTRIMAZOLE 1% 15 GM TUBE TP SCH ×6 (09:23→21:34)
[2021-10-18] MEDS: CHOLESTYRAMINE/ASPARTAME 4 G/PKT PACKET GT SCH ×2 (09:23→21:33)
[2021-10-18] MEDS: SEVELAMER CARBONATE 800 MG POWD.PACK GT SCH ×3 (09:23→17:48)
[2021-10-18] MEDS: DORZOLAMIDE OPTH 2% 10 ML BOTTLE OP SCH ×2 (09:24→17:47)
[2021-10-18] MEDS: NYSTATIN TOP POWDER 15 GM BOTTLE TP SCH ×2 (09:26→21:50)
[2021-10-18] MEDS: DAKINS QUARTER STRENGTH (0.125%) 480 ML BOTTLE TOP SCH (09:27)
[2021-10-18] MEDS: MINERAL OIL/PETROLATUM,WHITE 120 GM JAR TP SCH ×2 (09:27→21:37)
[2021-10-18] MEDS: Z GUARD REMEDY 4 OZ OINT TP SCH (09:29)
[2021-10-18] MEDS: ARGININE/GLUTAMINE/CALCIUM BMB 1 EACH POWD.PACK GT SCH ×2 (09:58→17:47)
[2021-10-18] MEDS: PROSOURCE / PROSTAT (PYXIS) 30 ML UDC GT SCH ×2 (09:58→17:47)
[2021-10-18 10:22] VITALS: BP 110/40
[2021-10-18] MEDS: INSULIN REGULAR, HUMAN 100 UNIT/ML 3 ML VIAL SQ PRN (12:49)
[2021-10-18 16:00] VITALS: BP 131/59
[2021-10-18] MEDS: DAPTOMYCIN IV SCH (16:06)
[2021-10-18] MEDS: NS 0.9% IV SCH (16:06)
[2021-10-18] MEDS: ACETAMINOPHEN 160 MG/5 ML GT PRN (18:55)
--- NOTE | 2021-10-18 18:55 | NUR ---
RN NOTE Patient temp is 100, PRN Tylenol given.
--- NOTE | 2021-10-18 19:33 | NUR ---
RN CLOSING NOTE Patient in bed, sleeping. Patient is obtunded and non-verbal. On mechanical ventilator, tolerating settings well. No s/s of distress noted. IV access on XIOMARA PICC line, SL intact and patent. G-tube intact running Nepro at 40 ml/hr. Patient kept clean and dry. Due meds given. Safety precautions maintained: bed in low, locked position; siderails up x 2; call light within reach. Will endorse to shift mgr nurse for OTIS.
[2021-10-18 20:00] VITALS: BP 133/55
--- NOTE | 2021-10-18 20:03 | NUR ---
MS RN OPENING NOTE PATIENT ASLEEP AWAKE IN BED. OBTUNDED. NO S/S OF DISTRESS; BREATHING BY VENT. XIOMARA PICC PATENT. NEPRO 40ML/HR. SAFETY MEASURES IN PLACE: BED AT LOWEST POSITION, RAILS X2, CALL BETANCUR WITHIN REACH. WILL CONTINUE TO MONITOR.
[2021-10-18] MEDS: LATANOPROST EYE DROP 0.005% 2.5 ML BOTTLE OP SCH (21:38)
[2021-10-19] MEDS: BLOOD SUGAR DIAGNOSTIC 1 EACH STRIP IN SCH ×5 (00:44→23:37)
[2021-10-19] MEDS: VANCOMYCIN HCL 125 MG/2.5 ML ORAL.SUSP GT SCH ×5 (00:44→23:38)
[2021-10-19] MEDS: METOCLOPRAMIDE HCL 10 MG/2 ML VIAL IV SCH ×4 (00:48→23:36)
[2021-10-19] MEDS: PHENYTOIN SODIUM IV 100 MG/2ML VIAL IV SCH ×3 (06:05→21:59)
--- NOTE | 2021-10-19 06:59 | NUR ---
MS RN CLOSING NOTES PATIENT IS ASLEEP IN BED. OBTUNDED (EYE OPENING). NO S/S OF DISTRESS, BREATHING VIA VENT WITHOUT DIFFICULTY OR OBSTRUCTION. XIOMARA PICC INTACT AND PATENT. SAFETY MEASURES IN PLACE: BED AT LOWEST POSITION, RAILS UP X2, CALL BETANCUR WITHIN REACH. WILL ENDORSE TO NEXT SHIFT FOR OTIS.
--- NOTE | 2021-10-19 07:20 | NUR ---
RN OPENING NOTE- PATIENT ASLEEP. OBTUNDED. NO S/S OF DISTRESS. PT ON VENT. SATURATION 100%, NO SUCTIONING REQUIRED AT PRESENT. XIOMARA PICC PATENT. GT - NEPRO 40ML/HR. SAFETY MEASURES IN PLACE: BED AT LOWEST POSITION, RAILS X2, CALL BETANCUR WITHIN REACH. WILL CONTINUE TO MONITOR / ASSIST
[2021-10-19] MEDS: IPRATROPIUM NEB FS 0.5 MG/2.5 ML AMPUL.NEB NEB SCH ×3 (07:51→20:14)
[2021-10-19 08:00] VITALS: BP 131/53
[2021-10-19] MEDS: SEVELAMER CARBONATE 800 MG POWD.PACK GT SCH ×3 (08:19→18:18)
[2021-10-19] MEDS: PANTOPRAZOLE 40 MG/PACK PACK GT SCH (08:24)
[2021-10-19] MEDS: CHOLESTYRAMINE/ASPARTAME 4 G/PKT PACKET GT SCH ×2 (08:24→21:58)
[2021-10-19] MEDS: DORZOLAMIDE OPTH 2% 10 ML BOTTLE OP SCH ×2 (08:25→16:34)
[2021-10-19] MEDS: ASCORBIC ACID 500 MG TABLET GT SCH (08:25)
[2021-10-19] MEDS: CHLORHEXIDINE GLUCONATE 15 ML UDC MM SCH ×2 (08:25→16:32)
[2021-10-19] MEDS: CLOTRIMAZOLE 1% 15 GM TUBE TP SCH ×4 (08:26→22:00)
[2021-10-19] MEDS: CARVEDILOL 12.5 MG TABLET GT SCH ×2 (08:28→21:00)
[2021-10-19] MEDS: DAKINS QUARTER STRENGTH (0.125%) 480 ML BOTTLE TOP SCH (08:31)
[2021-10-19] MEDS: ARGININE/GLUTAMINE/CALCIUM BMB 1 EACH POWD.PACK GT SCH ×2 (09:19→16:31)
[2021-10-19] MEDS: PROSOURCE / PROSTAT (PYXIS) 30 ML UDC GT SCH ×2 (09:19→16:31)
[2021-10-19] MEDS: PHENOBARBITAL 30 MG TABLET GT SCH ×2 (09:30→16:47)
[2021-10-19] MEDS: Z GUARD REMEDY 4 OZ OINT TP SCH (09:31)
[2021-10-19] MEDS: MINERAL OIL/PETROLATUM,WHITE 120 GM JAR TP SCH ×2 (09:31→21:59)
[2021-10-19] MEDS: NYSTATIN TOP POWDER 15 GM BOTTLE TP SCH ×2 (09:31→21:00)
--- NOTE | 2021-10-19 10:48 | NUR ---
WOUND CARE CONSULT: PT FOLLOWED BY SURGICAL TEAM FOR WOUND TREATMENT. DEFER TO SURGICAL TEAM CURRENTLY ON CASE. DR CAREN MARTINEZ NOTIFIED OF PT ROOM NUMBER. PT IS ON ENRICO ISOFLEX LOW AIRLOSS BED. ALL SKIN PROTECTION MEASURES IN PLACE AND DISCUSSED WITH NURSING STAFF. MD IN AGREEMENT WITH PLAN OF CARE.
--- NOTE | 2021-10-19 12:09 | NUR ---
Intake Paperwork: Flight Attendant called & spoke with the resident's daughter, Landon Pascal [phone] to complete initial admission paperwork: (Patient Right's Acknowledgement, Documentation of Preferred Intensity of Care, Conditions of Admission, CDPH Agreement, and Voluntary Prior Express Consent form, Important Message from Medicare). Landon stated the pt. should remain Full Code :Maximum Treatment & CPR. Admission paperwork was placed into the resident's chart for family to sign upon their next visit. VOLODYMYR to notify pt.'s nurse. Landon stated that she along with her brother, Jake Pascal [phone] are both the Power of Switchboard Inspector the pt. VOLODYMYR requested advanced directive paperwork. Landon stated she will provide it to VOLODYMYR.
[2021-10-19] MEDS: INSULIN REGULAR, HUMAN 100 UNIT/ML 3 ML VIAL SQ PRN (12:15)
--- NOTE | 2021-10-19 13:18 | NUR ---
RN NOTE- PT GIVEN BATH AND LINENS CHANGED. DRESSING CHANGE TO DECUBITUS SACRUM. CLEANSED W NS, GAUZE PACKED, ABD DRESSING PLACED AND TAPED SECURELY,. TOLERATED WELL. FLOATED LIMBS, REPOSITIONED .
[2021-10-19] MEDS ORDERED: EPOETIN ALFA (4000 UNIT) 4,000 UNIT/ML VIAL IV PRN (15:17)
[2021-10-19 16:00] VITALS: BP 129/43
--- NOTE | 2021-10-19 18:58 | NUR ---
RN CLOSING NOTE- PATIENT ASLEEP. OBTUNDED. NO S/S OF DISTRESS. PT ON VENT. SATURATION 100%, NO SUCTIONING REQUIRED AT PRESENT. XIOMARA PICC PATENT. GT - NEPRO 40ML/HR. SAFETY MEASURES IN PLACE: BED AT LOWEST POSITION, RAILS X2, CALL BETANCUR WITHIN REACH. WILL CONTINUE TO MONITOR / ASSIST
--- NOTE | 2021-10-19 19:32 | NUR ---
MS RN OPENING NOTE PATIENT RECEIVED AWAKE IN BED. OBTUNDED (EYES OPEN). NO S/S OF DISTRESS, BREATHING ON VENT W/O DIFFICULTY. XIOMARA PICC PATENT. SAFETY MEASURES IN PLACE: BED AT LOWEST POSITION, RAILS UP X2, CALL BETANCUR WITHIN REACH. WILL CONTINUE TO MONITOR.
[2021-10-19] MEDS ORDERED: PHENYTOIN SODIUM IV 100 MG/2ML VIAL ONE (21:43)
[2021-10-19 22:00] VITALS: BP 139/54
[2021-10-19] MEDS: LATANOPROST EYE DROP 0.005% 2.5 ML BOTTLE OP SCH (22:00)
--- NOTE | 2021-10-20 01:05 | NUR ---
RN NOTE PATIENT IS NO LONGER ON TELE, BUT I AM STILL CLOSELY MONITORING HER. AFTER THE LAST CLEANER TOOK PATIENT'S VS COMING ON TO SHIFT SHE HAD A TEMP 99.7. HOWEVER SHE HAD ALREADY RECEIVED A DOSE OF TYLENOL. I CONTINUED TO MONITOR PATIENT. AT 0003 I CHECKED PATIENT'S TEMP AND SHE WAS AT 100.9. I TOOK SAFETY MEASURES: REMOVED BLANKETS AND PLACED ICE PACKS UNDER EACH ARM. UPON REASSESSMENT AT 0102 SHE REVEALED A TEMP OF 98.9. SHE IS ALTOGETHER STABLE SHOWING NO S/S OF DISTRESS. WILL CONTINUE TO MONITOR.
[2021-10-20] MEDS ORDERED: PHENYTOIN SODIUM IV 100 MG/2ML VIAL ONE (04:57)
[2021-10-20] MEDS: PHENYTOIN SODIUM IV 100 MG/2ML VIAL IV SCH ×3 (05:50→22:16)
[2021-10-20] MEDS: BLOOD SUGAR DIAGNOSTIC 1 EACH STRIP IN SCH ×4 (05:50→23:50)
[2021-10-20] MEDS: VANCOMYCIN HCL 125 MG/2.5 ML ORAL.SUSP GT SCH ×4 (05:50→23:26)
--- NOTE | 2021-10-20 06:56 | NUR ---
MS RN CLOSING NOTE PATIENT AWAKE IN BED. OBTUNDED. NO S/S OF DISTRESS, BREATHING BY VENT W/O DIFFICULTY. SAFETY MEASURES IN PLACE: BED AT LOWEST POSITION, RAILS UP X2, CALL BETANCUR WITHIN REACH. WILL ENDORSE TO NEXT SHIFT FOR OTIS.
[2021-10-20 07:53] LABS: BASOPHILS # (AUTO) 0.1 K/uL (0.0-0.2); BASOPHILS % (AUTO) 0.5 % (0.0-2.0); EOSINOPHILS % (AUTO) 1.7 % (0.0-6.0); HEMATOCRIT 23 % (33-45); HEMOGLOBIN 7.6 g/dL (11.5-14.8); LYMPHOCYTES # (AUTO) 1.6 K/uL (0.8-4.8); LYMPHOCYTES % (AUTO) 10.3 % (20.0-44.0); MEAN CORPUSCULAR HGB CONC 33 g/dl (31.0-36.0); MEAN CORPUSCULAR VOLUME 98 fL (82-100); MONOCYTES # (AUTO) 1.5 K/uL (0.1-1.30); MONOCYTES % (AUTO) 9.6 % (2.0-12.0); NEUTROPHILS # (AUTO) 12.3 K/uL (1.8-8.9); NEUTROPHILS % (AUTO) 77.9 % (43.0-81.0); PLATELET COUNT (AUTO) 461 K/uL (150-450); WHITE BLOOD COUNT (AUTO) 15.7 K/uL (4.3-11.0)
[2021-10-20 08:00] VITALS: BP 128/54
[2021-10-20 08:09] LABS: CALCIUM, SERUM 9.4 mg/dL (8.5-10.1); CARBON DIOXIDE 26 mmol/L (21-32); CHLORIDE 100 mmol/L (98-107); CREATININE 2.3 mg/dL (0.6-1.3); GLUCOSE 99 mg/dL (74-106); MAGNESIUM 2.9 mg/dL (1.8-2.4); PHOSPHORUS 3.3 mg/dL (2.5-4.9); POTASSIUM 3.4 mmol/L (3.5-5.1); SODIUM SERUM 138 mmol/L (136-145)
[2021-10-20 08:10] LABS: UREA NITROGEN, BLOOD 96 mg/dL (7-18)
[2021-10-20] MEDS ORDERED: IPRATROPIUM NEB FS 0.5 MG/2.5 ML AMPUL.NEB ONE (08:18)
[2021-10-20] MEDS: CHLORHEXIDINE GLUCONATE 15 ML UDC MM SCH ×2 (09:00→18:47)
[2021-10-20] MEDS: CARVEDILOL 12.5 MG TABLET GT SCH ×2 (09:00→21:00)
--- NOTE | 2021-10-20 09:00 | NUR ---
ov insulation foreman: notes allie (daughter) called and informed me that not to give any blood pressure medications and to call her when she is scheduled for hd tx.
[2021-10-20] MEDS: ASCORBIC ACID 500 MG TABLET GT SCH (09:18)
[2021-10-20] MEDS: PANTOPRAZOLE 40 MG/PACK PACK GT SCH (09:18)
[2021-10-20] MEDS: SEVELAMER CARBONATE 800 MG POWD.PACK GT SCH ×3 (09:18→18:48)
[2021-10-20] MEDS: CHOLESTYRAMINE/ASPARTAME 4 G/PKT PACKET GT SCH ×2 (09:18→22:16)
[2021-10-20] MEDS: DORZOLAMIDE OPTH 2% 10 ML BOTTLE OP SCH ×2 (09:19→18:48)
[2021-10-20] MEDS: CLOTRIMAZOLE 1% 15 GM TUBE TP SCH ×6 (09:20→21:00)
[2021-10-20] MEDS: NYSTATIN TOP POWDER 15 GM BOTTLE TP SCH ×2 (09:27→21:00)
[2021-10-20] MEDS: DAKINS QUARTER STRENGTH (0.125%) 480 ML BOTTLE TOP SCH (09:27)
[2021-10-20] MEDS: MINERAL OIL/PETROLATUM,WHITE 120 GM JAR TP SCH ×2 (09:27→21:00)
[2021-10-20] MEDS: ARGININE/GLUTAMINE/CALCIUM BMB 1 EACH POWD.PACK GT SCH ×2 (09:27→18:47)
[2021-10-20] MEDS: PROSOURCE / PROSTAT (PYXIS) 30 ML UDC GT SCH ×2 (09:27→18:47)
[2021-10-20] MEDS: Z GUARD REMEDY 4 OZ OINT TP SCH (09:28)
[2021-10-20] MEDS: METOCLOPRAMIDE HCL 10 MG/2 ML VIAL IV SCH ×2 (09:37→18:55)
--- NOTE | 2021-10-20 10:30 | NUR ---
sa farm boss: notes allie (daughter) notified and made aware re: hd tx between [id number]. pt to be picked up around 1300 this afternoon.
[2021-10-20] MEDS: PHENOBARBITAL 30 MG TABLET GT SCH ×2 (10:34→18:47)
[2021-10-20] MEDS: INSULIN REGULAR, HUMAN 100 UNIT/ML 3 ML VIAL SQ PRN ×2 (12:01→18:57)
--- NOTE | 2021-10-20 13:30 | NUR ---
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 report given to r.t. and crew. papers given to one of the crew.
--- NOTE | 2021-10-20 14:00 | NUR ---
director of securities and real estate: notes pt was picked up by ambulance with 1 r.t. to go to [facility] for hd tx at this time.
--- NOTE | 2021-10-20 16:49 | NUR ---
Advanced Directive: Pt.'s daughter, Landon [phone] dropped off pt.'s advanced healthcare directive. VOLODYMYR placed copy in the pt.'s chart. VOLODYMYR notified charge nurseElizabeth.
--- NOTE | 2021-10-20 18:30 | NUR ---
director of strategic marketing: notes pt back from renal. safely transferred pt back from [facility] to bed. kept comfortable. renal did not provide hd report, attempted to call 2x, but no answer. called sub acute, spoke to mayela (crystal) and made aware. per mayela renal is close and need to call back tomorrow to get an hd report. daughter visiting. pm care rendered by staff. sacral wound tx done as ordered. g-tube feeding reconnected. will continue to monitor.
[2021-10-20] MEDS: NS 0.9% IV SCH (18:56)
[2021-10-20] MEDS: DAPTOMYCIN IV SCH (18:56)
--- NOTE | 2021-10-20 19:15 | NUR ---
m/s supervisor plastering: notes daughter remains at bedside. report given to blank (penny) for continuity of care.
[2021-10-20 20:00] VITALS: BP 102/50
[2021-10-20] MEDS: IPRATROPIUM NEB FS 0.5 MG/2.5 ML AMPUL.NEB NEB SCH (21:10)
[2021-10-20] MEDS: LATANOPROST EYE DROP 0.005% 2.5 ML BOTTLE OP SCH (22:59)
[2021-10-21] VITALS: BP 117/45
[2021-10-21] MEDS ORDERED: ACETAMINOPHEN 650 MG/20.3 ML UDC ONE ×2 (00:26→17:41)
[2021-10-21] MEDS: ACETAMINOPHEN 160 MG/5 ML GT PRN (00:28)
[2021-10-21] MEDS: METOCLOPRAMIDE HCL 10 MG/2 ML VIAL IV SCH ×4 (00:35→23:16)
[2021-10-21] MEDS ORDERED: IPRATROPIUM NEB FS 0.5 MG/2.5 ML AMPUL.NEB ONE (00:42)
[2021-10-21] MEDS: IPRATROPIUM NEB FS 0.5 MG/2.5 ML AMPUL.NEB NEB SCH ×4 (01:05→20:21)
--- NOTE | 2021-10-21 02:24 | NUR ---
RT Medication not available on [employer], pulled from stocked meds. Scanned and administered during scheduled time.
[2021-10-21 04:00] VITALS: BP 104/57
[2021-10-21] MEDS: NEPRO 1,000 ML BOTTLE GT PRN (04:54)
[2021-10-21] MEDS: VANCOMYCIN HCL 125 MG/2.5 ML ORAL.SUSP GT SCH ×4 (05:00→23:16)
[2021-10-21] MEDS: PHENYTOIN SODIUM IV 100 MG/2ML VIAL IV SCH ×3 (05:01→20:49)
[2021-10-21] MEDS: BLOOD SUGAR DIAGNOSTIC 1 EACH STRIP IN SCH ×4 (05:29→23:28)
--- NOTE | 2021-10-21 07:30 | NUR ---
RN OPENING NOTES RECEIVED PATIENT RESTING IN BED, EYES CLOSED, NON-VERBAL. ON TRACH/VENT TOLERATING SETTING WELL. NO SIGNS OF ACUTE DISTRESS NOTED. SATURATION @100%, NO SOB NOTED. WITH IV ACCESS ON XIOMARA PICC LINE, INTACT AND PATENT, SL. ALSO WITH RCW PERMACATH NOTED, WITH DRESSING C/D/I. WITH G-TUBE INTACT AND PATENT, NEPRO @40ML/HR RUNNING, TOLERATED WELL. ASPIRATION PRECAUTIONS OBSERVED. SAFETY MEASURES IN PLACE. BED LOCKED AND IN LOWEST POSITION, SR UP X2, CALL LIGHT PLACED WITHIN EASY REACH. WILL CONTINUE TO MONITOR.
[2021-10-21] MEDS ORDERED: KEY,NONCONTROL,TO KEEP IN PYXI 1 EA MC ONE ×2 (08:26→09:35)
[2021-10-21] MEDS: CHLORHEXIDINE GLUCONATE 15 ML UDC MM SCH ×2 (08:30→16:24)
[2021-10-21] MEDS: ASCORBIC ACID 500 MG TABLET GT SCH (08:30)
[2021-10-21] MEDS: SEVELAMER CARBONATE 800 MG POWD.PACK GT SCH ×3 (08:30→17:04)
[2021-10-21] MEDS: PANTOPRAZOLE 40 MG/PACK PACK GT SCH (08:31)
[2021-10-21] MEDS: CHOLESTYRAMINE/ASPARTAME 4 G/PKT PACKET GT SCH ×2 (08:31→20:48)
[2021-10-21] MEDS: DORZOLAMIDE OPTH 2% 10 ML BOTTLE OP SCH ×2 (08:34→17:03)
[2021-10-21] MEDS: MINERAL OIL/PETROLATUM,WHITE 120 GM JAR TP SCH ×2 (08:35→20:49)
[2021-10-21] MEDS: DAKINS QUARTER STRENGTH (0.125%) 480 ML BOTTLE TOP SCH (08:36)
[2021-10-21] MEDS: CLOTRIMAZOLE 1% 15 GM TUBE TP SCH ×6 (08:37→20:51)
[2021-10-21] MEDS: PROSOURCE / PROSTAT (PYXIS) 30 ML UDC GT SCH ×2 (08:39→16:21)
[2021-10-21] MEDS: CARVEDILOL 12.5 MG TABLET GT SCH ×2 (08:39→20:01)
[2021-10-21] MEDS: Z GUARD REMEDY 4 OZ OINT TP SCH (08:41)
[2021-10-21] MEDS: NYSTATIN TOP POWDER 15 GM BOTTLE TP SCH ×2 (08:43→20:50)
[2021-10-21] MEDS: ARGININE/GLUTAMINE/CALCIUM BMB 1 EACH POWD.PACK GT SCH ×2 (09:34→16:21)
[2021-10-21] MEDS: PHENOBARBITAL 30 MG TABLET GT SCH ×2 (09:45→17:32)
[2021-10-21] MEDS: INSULIN REGULAR, HUMAN 100 UNIT/ML 3 ML VIAL SQ PRN (11:17)
--- NOTE | 2021-10-21 19:00 | NUR ---
RN CLOSING NOTES PATIENT ASLEEP IN BED, EYES CLOSED, NON-VERBAL. REMAINS ON TRACH/VENT TOLERATING SETTING WELL. NO SIGNS OF ACUTE DISTRESS NOTED. SATURATION @100%, NO SOB NOTED. WITH IV ACCESS ON XIOMARA PICC LINE, INTACT AND PATENT, SL. ALSO WITH RCW PERMACATH NOTED, WITH DRESSING C/D/I. WITH G-TUBE INTACT AND PATENT, NEPRO @40ML/HR RUNNING, TOLERATED WELL. ASPIRATION PRECAUTIONS OBSERVED. ALL DUE MEDS GIVEN, TOLERATED WELL. WOUND CARE TTREATMENT DONE. TURNED AND REPOSITIONED [id number]. SAFETY MEASURES IN PLACE. BED LOCKED AND IN LOWEST POSITION, SR UP X2, CALL LIGHT PLACED WITHIN EASY REACH. WILL ENDORSE TO NEXT SHIFT.
--- NOTE | 2021-10-21 19:51 | NUR ---
RN OPENING NOTES RECEIVED PT IN BED, OBTUNDED, DAUGHTER AT BEDSIDE. AOx1. ON TRACH AND TOLERATING WELL. NO SOB NOTED. NO S/SX OF RESPIRATORY DISTRESS NOTED. IV ACCESS XIOMARA PICC LINE AND HD PERMACATH. IV IS ARE INTACT, PATENT, AND FLUSHING WELL. SAFETY PRECAUTIONS IN PLACE: BED IN LOWEST, LOCKED POSITION, SIDERAILS UPx2, AND BRAKES ON. TABLE AND CALL LIGHT WITHIN REACH. WILL CONTINUE TO MONITOR.
[2021-10-21 20:00] VITALS: BP 106/45
[2021-10-21] MEDS: LATANOPROST EYE DROP 0.005% 2.5 ML BOTTLE OP SCH (20:49)
--- NOTE | 2021-10-21 21:04 | NUR ---
PATIENT'S DAUGHTER REQUESTED THAT BLOOD PRESSURE MEDICATION NOT BE GIVEN BECAUSE THE BLOOD PRESSURE DROPS SO LOW.
[2021-10-21 22:00] VITALS: BP 106/45
[2021-10-22] VITALS: BP 127/52
[2021-10-22] MEDS: IPRATROPIUM NEB FS 0.5 MG/2.5 ML AMPUL.NEB NEB SCH ×4 (02:17→19:30)
[2021-10-22] MEDS: PHENYTOIN SODIUM IV 100 MG/2ML VIAL IV SCH ×3 (04:57→21:55)
[2021-10-22] MEDS: VANCOMYCIN HCL 125 MG/2.5 ML ORAL.SUSP GT SCH ×4 (05:00→23:22)
[2021-10-22] MEDS: BLOOD SUGAR DIAGNOSTIC 1 EACH STRIP IN SCH ×4 (06:27→23:22)
--- NOTE | 2021-10-22 07:13 | NUR ---
REPORT GIVEN TO RN. PATIENT IS STABLE.
--- NOTE | 2021-10-22 07:23 | NUR ---
RN OPENING NOTES RECEIVED PT IN BED IN NO ACUTE SIGNS OF DISTRESS. HOB ELEVATED. PT IS OBTUNDED AND OPEN EYES AT TIMES. ON TRACH PORTEX #8 CONNECTED TO MECHANICAL VENT AT PRESCRIBED SETTINGS, NO ACUTE S/SX OF RESPIRATORY DISTRESS NOTED. XIOMARA PICC LINE AND RCW PERMACATH BOTH IN PLACED WITH DRESSINGS C/D/I. G-TUBE IN PLACE WITH FEEDING OF NEPRO @ 40ML/HR IN PROGRESS AND TOLERATING WELL. ASPIRATION PRECAUTIONS MAINTAINED. SAFETY PRECAUTIONS IN PLACE: BED IN LOWEST LOCKED POSITION, SIDE-RAILS UPx3. CALL LIGHT WITHIN REACH. WILL CONTINUE TO MONITOR.
[2021-10-22 08:00] VITALS: BP 119/54
[2021-10-22] MEDS: METOCLOPRAMIDE HCL 10 MG/2 ML VIAL IV SCH ×3 (08:56→23:23)
[2021-10-22] MEDS: CHOLESTYRAMINE/ASPARTAME 4 G/PKT PACKET GT SCH ×2 (08:56→21:54)
[2021-10-22] MEDS: PANTOPRAZOLE 40 MG/PACK PACK GT SCH (08:57)
[2021-10-22] MEDS: ASCORBIC ACID 500 MG TABLET GT SCH (08:57)
[2021-10-22] MEDS: SEVELAMER CARBONATE 800 MG POWD.PACK GT SCH ×3 (08:57→18:18)
[2021-10-22] MEDS: PHENOBARBITAL 30 MG TABLET GT SCH ×2 (08:58→17:00)
[2021-10-22] MEDS: CHLORHEXIDINE GLUCONATE 15 ML UDC MM SCH ×2 (08:58→17:00)
[2021-10-22] MEDS: DORZOLAMIDE OPTH 2% 10 ML BOTTLE OP SCH ×2 (08:59→17:00)
[2021-10-22] MEDS: PROSOURCE / PROSTAT (PYXIS) 30 ML UDC GT SCH ×2 (08:59→17:00)
[2021-10-22] MEDS: ARGININE/GLUTAMINE/CALCIUM BMB 1 EACH POWD.PACK GT SCH ×2 (09:00→17:00)
[2021-10-22] MEDS: CARVEDILOL 12.5 MG TABLET GT SCH ×2 (09:00→21:00)
[2021-10-22] MEDS: DAKINS QUARTER STRENGTH (0.125%) 480 ML BOTTLE TOP SCH (09:01)
[2021-10-22] MEDS: CLOTRIMAZOLE 1% 15 GM TUBE TP SCH ×6 (09:04→22:02)
[2021-10-22] MEDS: NYSTATIN TOP POWDER 15 GM BOTTLE TP SCH ×2 (09:06→21:00)
[2021-10-22] MEDS: MINERAL OIL/PETROLATUM,WHITE 120 GM JAR TP SCH ×2 (09:08→21:00)
[2021-10-22] MEDS: Z GUARD REMEDY 4 OZ OINT TP SCH (09:11)
[2021-10-22] MEDS: INSULIN REGULAR, HUMAN 100 UNIT/ML 3 ML VIAL SQ PRN ×2 (11:37→18:36)
--- NOTE | 2021-10-22 13:32 | NUR ---
RN NOTES PT PICKED-UP BY EMS VIA GURNEY FOR HD AT [facility] JUST NOW
--- NOTE | 2021-10-22 15:37 | NUR ---
Intake paperwork update: VOLODYMYR received voicemail by nurse yesterday around 1730 that Pt.'s daughter, Landon [phone] was at bedside to sign paperwork. However, VOLODYMYR is gone by 1630. VOLODYMYR called Charlotte just now and requested that she call VOLODYMYR upon her visit to sign documents. Charlotte informed of SW availability M-F 8 am -4:30 pm. Charlotte is agreeable.
--- NOTE | 2021-10-22 16:00 | NUR ---
Intake Paperwork: Computer Information Systems Instructor met with the resident's daughter, Landon Pascal [phone] to complete initial admission paperwork: (Patient Right's Acknowledgement, Documentation of Preferred Intensity of Care, Conditions of Admission, CDPH Agreement, and Voluntary Prior Express Consent form, Important Message from Medicare). SW provided patient's family with a copy of the Bill of Rights, & patient information guide. Landon stated the resident should remain Full Code :Maximum Treatment & CPR. Admission paperwork was placed into the resident's chart. Computer Information Systems Instructor educated Landon on Conservatorship and provided informational packets for her. Landon and her brother Jake are the DPOA. Landon has brought the advance directive and it has been filed in the chart.
--- NOTE | 2021-10-22 16:56 | NUR ---
VOLODYMYR called the pt.'s daughter, Charlotte and left voicemail to notify them that: A Sub-Acute employee tested positive for COVID-19 this week. Residents and staff will continue receiving response testing as outlined by [facility] Department of Public Health. We will continue to implement [facility] infection control protocols and continue screening employees before every shift. [facility] continues to follow infection control protocols and screen our residents and staff daily for symptoms.
--- NOTE | 2021-10-22 18:24 | NUR ---
RN NOTES PT RETURNED TO UNIT S/P HEMODIALYSIS FROM [facility]. PT AWAKE IN NO ACUTE SIGNS OF DISTRESS. TRANSFER TO BED AND MAINTAINED HOB ELEVATED.
[2021-10-22] MEDS: DAPTOMYCIN IV SCH (18:28)
[2021-10-22] MEDS: NS 0.9% IV SCH (18:28)
--- NOTE | 2021-10-22 19:06 | NUR ---
RN CLOSING NOTES PT IN BED AWAKE AT THIS WITH DAUGHTER AT BEDSIDE. HOB ELEVATED. PT IS OBTUNDED AND OPEN EYES AT TIMES. ON TRACH PORTEX #8 CONNECTED TO MECHANICAL VENT AT PRESCRIBED SETTINGS, NO ACUTE S/SX OF RESPIRATORY DISTRESS NOTED. XIOMARA PICC LINE AND RCW PERMACATH BOTH IN PLACED WITH DRESSINGS C/D/I. G-TUBE IN PLACE WITH FEEDING OF NEPRO @ 40ML/HR IN PROGRESS AND TOLERATING WELL. ASPIRATION PRECAUTIONS MAINTAINED. ALL NEEDS AND CARE PROVIDED WELL. SAFETY PRECAUTIONS IN PLACE: BED IN LOWEST LOCKED POSITION, SIDE-RAILS UPx3. CALL LIGHT WITHIN REACH. WILL ENDORSE OTIS TO EQUIPMENT VALIDATION SPECIALIST NURSE.
--- NOTE | 2021-10-22 19:40 | NUR ---
RN NOTE PATIENT RESTING COMFORTABLY IN BED. TOLERATING MECHANICAL VENT SETTINGS WELL. LEFT UPPER ARM PICC LINE IS SALINE LOCKED. CONTINUES ON IV ABX. CONTINUES ON NEPRO TUBE FEED AT 40ML/HR. NO RESIDUAL NOTED. DAUGHTER, GARY, AT BEDSIDE. WILL CONTINUE TO MONITOR.
[2021-10-22 20:00] VITALS: BP 110/61
[2021-10-22] MEDS: LATANOPROST EYE DROP 0.005% 2.5 ML BOTTLE OP SCH (21:55)
[2021-10-22] MEDS ORDERED: ACETAMINOPHEN 325 MG TABLET ONE (21:57)
[2021-10-22] MEDS ORDERED: ACETAMINOPHEN 650 MG/20.3 ML UDC ONE (21:59)
[2021-10-22 22:00] VITALS: BP 121/53
[2021-10-22] MEDS: ACETAMINOPHEN 160 MG/5 ML GT PRN (22:00)
[2021-10-23] MEDS ORDERED: IPRATROPIUM NEB FS 0.5 MG/2.5 ML AMPUL.NEB ONE (00:57)
[2021-10-23] MEDS: IPRATROPIUM NEB FS 0.5 MG/2.5 ML AMPUL.NEB NEB SCH ×4 (01:10→19:46)
[2021-10-23] MEDS: NEPRO 1,000 ML BOTTLE GT PRN (01:36)
[2021-10-23] MEDS: BLOOD SUGAR DIAGNOSTIC 1 EACH STRIP IN SCH ×3 (05:41→18:00)
[2021-10-23] MEDS: PHENYTOIN SODIUM IV 100 MG/2ML VIAL IV SCH ×3 (05:41→21:46)
[2021-10-23] MEDS: VANCOMYCIN HCL 125 MG/2.5 ML ORAL.SUSP GT SCH ×3 (05:41→18:52)
[2021-10-23] MEDS: SEVELAMER CARBONATE 800 MG POWD.PACK GT SCH ×3 (08:32→18:49)
[2021-10-23] MEDS: METOCLOPRAMIDE HCL 10 MG/2 ML VIAL IV SCH ×2 (08:33→16:19)
[2021-10-23] MEDS: CARVEDILOL 12.5 MG TABLET GT SCH ×2 (08:34→21:00)
[2021-10-23] MEDS: ARGININE/GLUTAMINE/CALCIUM BMB 1 EACH POWD.PACK GT SCH ×2 (08:34→17:00)
[2021-10-23] MEDS: PROSOURCE / PROSTAT (PYXIS) 30 ML UDC GT SCH ×2 (08:34→17:00)
[2021-10-23] MEDS: CHOLESTYRAMINE/ASPARTAME 4 G/PKT PACKET GT SCH ×2 (08:35→21:45)
[2021-10-23] MEDS: PANTOPRAZOLE 40 MG/PACK PACK GT SCH (08:36)
[2021-10-23] MEDS: CHLORHEXIDINE GLUCONATE 15 ML UDC MM SCH ×2 (08:37→17:00)
[2021-10-23] MEDS: ASCORBIC ACID 500 MG TABLET GT SCH (08:37)
[2021-10-23] MEDS: DAKINS QUARTER STRENGTH (0.125%) 480 ML BOTTLE TOP SCH (08:38)
[2021-10-23] MEDS: DORZOLAMIDE OPTH 2% 10 ML BOTTLE OP SCH ×2 (08:38→17:00)
[2021-10-23] MEDS: MINERAL OIL/PETROLATUM,WHITE 120 GM JAR TP SCH ×2 (08:39→21:46)
[2021-10-23] MEDS: NYSTATIN TOP POWDER 15 GM BOTTLE TP SCH ×2 (08:39→21:47)
[2021-10-23] MEDS: CLOTRIMAZOLE 1% 15 GM TUBE TP SCH ×6 (08:39→21:46)
[2021-10-23] MEDS: Z GUARD REMEDY 4 OZ OINT TP SCH (08:39)
[2021-10-23] MEDS: PHENOBARBITAL 30 MG TABLET GT SCH ×2 (08:40→21:45)
[2021-10-23 08:43] VITALS: BP 116/48
[2021-10-23] MEDS: INSULIN REGULAR, HUMAN 100 UNIT/ML 3 ML VIAL SQ PRN (12:47)
[2021-10-23] MEDS: MIDODRINE HCL (5MG) 5 MG TABLET GT PRN (15:43)
--- NOTE | 2021-10-23 15:43 | NUR ---
RN NOTES PATIENT BP IS 88/42. NO SIGNS OF RESPIRATORY DISTRESS. CAPILLARY REFILL < 3 SECONDS. NO SIGNS OF PAIN OR DISCOMFORT. PATIENT NONVERBAL AT BASELINE. PRN ORDER OF MIDODRINE HAS BEEN GIVEN TO INCREASE BLOOD PRESSURE. WILL CONTINUE TO MONITOR PATIENT STATUS
[2021-10-23 16:10] VITALS: BP 88/42
[2021-10-23 20:00] VITALS: BP 100/43
--- NOTE | 2021-10-23 20:00 | NUR ---
RN NOTE BP NOW 100/43, HR 81. NO S/SX OF DISTRESS NOTED. WILL CONTINUE TO MONITOR.
--- NOTE | 2021-10-23 21:00 | NUR ---
RN NOTE PATIENTS TEMP IS 100. FAMILY AT BEDSIDE. COOLING MEASURES INITIATED. TYLENOL PRN GIVEN VIA GT. WILL CONTINUE TO MONITOR.
[2021-10-23] MEDS ORDERED: PHENYTOIN SODIUM IV 100 MG/2ML VIAL ONE (21:41)
[2021-10-23] MEDS ORDERED: ACETAMINOPHEN 650 MG/20.3 ML UDC ONE (21:41)
[2021-10-23] MEDS: LATANOPROST EYE DROP 0.005% 2.5 ML BOTTLE OP SCH (21:47)
[2021-10-23 22:00] VITALS: BP 100/43
[2021-10-24] MEDS: BLOOD SUGAR DIAGNOSTIC 1 EACH STRIP IN SCH ×4 (00:06→18:59)
[2021-10-24] MEDS: METOCLOPRAMIDE HCL 10 MG/2 ML VIAL IV SCH ×3 (00:06→16:17)
[2021-10-24] MEDS: VANCOMYCIN HCL 125 MG/2.5 ML ORAL.SUSP GT SCH ×4 (00:06→18:27)
[2021-10-24] MEDS: INSULIN REGULAR, HUMAN 100 UNIT/ML 3 ML VIAL SQ PRN ×3 (00:17→12:34)
[2021-10-24] MEDS: IPRATROPIUM NEB FS 0.5 MG/2.5 ML AMPUL.NEB NEB SCH ×2 (02:07→19:05)
[2021-10-24] MEDS ORDERED: PHENYTOIN SODIUM IV 100 MG/2ML VIAL ONE (05:35)
[2021-10-24] MEDS: PHENYTOIN SODIUM IV 100 MG/2ML VIAL IV SCH ×3 (05:37→21:57)
[2021-10-24] MEDS: NEPRO 1,000 ML BOTTLE GT PRN (06:53)
[2021-10-24] MEDS: CARVEDILOL 12.5 MG TABLET GT SCH ×2 (08:18→21:58)
[2021-10-24] MEDS: CHLORHEXIDINE GLUCONATE 15 ML UDC MM SCH ×2 (08:22→17:00)
[2021-10-24] MEDS: CHOLESTYRAMINE/ASPARTAME 4 G/PKT PACKET GT SCH ×2 (08:22→21:57)
[2021-10-24] MEDS: MIDODRINE HCL (5MG) 5 MG TABLET GT PRN (08:23)
[2021-10-24] MEDS: ASCORBIC ACID 500 MG TABLET GT SCH (08:23)
[2021-10-24] MEDS: SEVELAMER CARBONATE 800 MG POWD.PACK GT SCH ×3 (08:23→18:27)
[2021-10-24] MEDS: DORZOLAMIDE OPTH 2% 10 ML BOTTLE OP SCH ×2 (08:28→17:00)
[2021-10-24] MEDS: CLOTRIMAZOLE 1% 15 GM TUBE TP SCH ×6 (08:32→21:59)
[2021-10-24] MEDS: MINERAL OIL/PETROLATUM,WHITE 120 GM JAR TP SCH ×2 (08:32→21:58)
[2021-10-24] MEDS: DAKINS QUARTER STRENGTH (0.125%) 480 ML BOTTLE TOP SCH (08:32)
[2021-10-24] MEDS: Z GUARD REMEDY 4 OZ OINT TP SCH (08:33)
[2021-10-24] MEDS: NYSTATIN TOP POWDER 15 GM BOTTLE TP SCH ×2 (08:33→21:59)
--- NOTE | 2021-10-24 08:45 | NUR ---
RN NOTE PATIENTS TEMP IS 100.4, COOLING MEASURES INITIATED. TYLENOL PRN GIVEN VIA GT. WILL CONTINUE TO MONITOR.
[2021-10-24 08:48] VITALS: BP 90/40
--- NOTE | 2021-10-24 09:30 | NUR ---
RN NOTES RECHECKED BP 100/45
[2021-10-24] MEDS: PROSOURCE / PROSTAT (PYXIS) 30 ML UDC GT SCH ×2 (09:34→17:00)
[2021-10-24] MEDS: PHENOBARBITAL 30 MG TABLET GT SCH ×2 (09:34→17:00)
[2021-10-24] MEDS: ACETAMINOPHEN 650 MG/20.3 ML UDC GT PRN (09:35)
[2021-10-24] MEDS: ARGININE/GLUTAMINE/CALCIUM BMB 1 EACH POWD.PACK GT SCH ×2 (09:35→17:00)
[2021-10-24] MEDS: PANTOPRAZOLE 40 MG/PACK PACK GT SCH (09:36)
--- NOTE | 2021-10-24 09:45 | NUR ---
RN NOTES RECHECKED PATIENT'S TEMP. 98.7. WILL CONTINUE TO MONITOR.
[2021-10-24] MEDS ORDERED: IPRATROPIUM NEB FS 0.5 MG/2.5 ML AMPUL.NEB ONE (09:57)
[2021-10-24 10:00] VITALS: BP 100/43
--- NOTE | 2021-10-24 14:03 | NUR ---
RN NOTES PATIENT WAS PICKED UP FOR DIALYSIS AT [facility]. LEFT UNIT IN STABLE CONDITION.
--- NOTE | 2021-10-24 18:25 | NUR ---
RN NOTES PATIENT CAME BACK FORM HD 800 ML OUT.
[2021-10-24] MEDS: DAPTOMYCIN IV SCH (18:27)
[2021-10-24] MEDS: NS 0.9% IV SCH (18:27)
--- NOTE | 2021-10-24 18:58 | NUR ---
RN CLOSING NOTES PT IN BED AWAKE AT THIS WITH DAUGHTER AT BEDSIDE. HOB ELEVATED. PT IS OBTUNDED AND OPEN EYES AT TIMES. ON TRACH PORTEX #8 CONNECTED TO MECHANICAL VENT AT PRESCRIBED SETTINGS, NO ACUTE S/SX OF RESPIRATORY DISTRESS NOTED. XIOMARA PICC LINE AND RCW PERMACATH BOTH IN PLACED WITH DRESSINGS C/D/I. G-TUBE IN PLACE WITH FEEDING OF NEPRO @ 40ML/HR IN PROGRESS AND TOLERATING WELL. ASPIRATION PRECAUTIONS MAINTAINED. ALL NEEDS AND CARE PROVIDED WELL. SAFETY PRECAUTIONS IN PLACE: BED IN LOWEST LOCKED POSITION, SIDE-RAILS UPx3. CALL LIGHT WITHIN REACH. WILL ENDORSE OTIS TO LEATHER PRODUCTION ARTISAN NURSE.
[2021-10-24 20:00] VITALS: BP 117/44
[2021-10-24] MEDS: LATANOPROST EYE DROP 0.005% 2.5 ML BOTTLE OP SCH (22:00)
[2021-10-25] VITALS (7 sets, daily range): BP systolic 73–108; BP diastolic 34–47
[2021-10-25] MEDS: VANCOMYCIN HCL 125 MG/2.5 ML ORAL.SUSP GT SCH ×4 (00:11→17:58)
[2021-10-25] MEDS: BLOOD SUGAR DIAGNOSTIC 1 EACH STRIP IN SCH ×4 (00:12→17:52)
[2021-10-25] MEDS: METOCLOPRAMIDE HCL 10 MG/2 ML VIAL IV SCH ×3 (00:13→15:30)
[2021-10-25] MEDS: IPRATROPIUM NEB FS 0.5 MG/2.5 ML AMPUL.NEB NEB SCH ×4 (00:42→19:30)
[2021-10-25] MEDS ORDERED: ACETAMINOPHEN 325 MG TABLET ONE (04:38)
[2021-10-25] MEDS ORDERED: MIDODRINE HCL (5MG) 5 MG TABLET ONE ×2 (04:38→09:49)
[2021-10-25] MEDS: MIDODRINE HCL (5MG) 5 MG TABLET GT PRN (04:41)
[2021-10-25] MEDS ORDERED: ACETAMINOPHEN 650 MG/20.3 ML UDC ONE (04:42)
[2021-10-25] MEDS: ACETAMINOPHEN 650 MG/20.3 ML UDC GT PRN (04:43)
[2021-10-25] MEDS: PHENYTOIN SODIUM IV 100 MG/2ML VIAL IV SCH ×3 (05:27→20:59)
[2021-10-25] MEDS: INSULIN REGULAR, HUMAN 100 UNIT/ML 3 ML VIAL SQ PRN ×2 (06:20→15:33)
--- NOTE | 2021-10-25 06:54 | NUR ---
SA RN NOTES AWAKE & NON VERBAL. NOT IN ANY DISTRESS. NO SOB NOTED. WITH SAME VENT SETTINGS. NO S/SX OF ANY PAIN OR DISCOMFORT AT THIS TIME. WITH GTF INFUSING WELL. WITH IV-HL PATENT & INTACT. AM CARE DONE. MONITORED ACCORDINGLY. CALL LIGHT WITHIN REACH. BED IN LOWEST POSITION. SR UP X3 WITH BED ALARM ON FOR SAFETY. WILL ENDORSE TO NEXT SHIFT.
--- NOTE | 2021-10-25 07:46 | NUR ---
RN OPENING NOTES RECEIVED Pt RESTING IN BED, EYES CLOSED, NON-VERBAL. ON TRACH/VENT TOLERATING SETTING WELL. NO SIGNS OF ACUTE DISTRESS NOTED. SATURATION @100%, NO SOB NOTED. Pt HAS IV ACCESS ON L UA PICC LINE, INTACT AND PATENT, SL. ALSO WITH RCW PERMACATH NOTED, WITH DRESSING C/D/I. Pt HAS A G-TUBE INTACT AND PATENT, NEPRO @40ML/HR RUNNING, AND TOLERATING WELL. ASPIRATION PRECAUTIONS OBSERVED. SAFETY MEASURES IN PLACE. BED IS LOCKED AND IN LOWEST POSITION, SIDE RAILS UP X2, CALL LIGHT AND BED SIDE TABLE PLACED WITHIN EASY REACH. WILL CONTINUE TO MONITOR THROUGHOUT THE SHIFT.
[2021-10-25] MEDS: SEVELAMER CARBONATE 800 MG POWD.PACK GT SCH ×3 (08:00→17:56)
[2021-10-25] MEDS: PHENOBARBITAL 30 MG TABLET GT SCH ×2 (09:00→17:57)
[2021-10-25] MEDS: MINERAL OIL/PETROLATUM,WHITE 120 GM JAR TP SCH ×2 (09:00→21:05)
[2021-10-25] MEDS: CHLORHEXIDINE GLUCONATE 15 ML UDC MM SCH ×2 (09:00→16:05)
[2021-10-25] MEDS: PANTOPRAZOLE 40 MG/PACK PACK GT SCH (09:00)
[2021-10-25] MEDS: ASCORBIC ACID 500 MG TABLET GT SCH (09:00)
[2021-10-25] MEDS: CLOTRIMAZOLE 1% 15 GM TUBE TP SCH ×6 (09:00→21:04)
[2021-10-25] MEDS ORDERED: IV NS 0.9% 250 ML IV ONE ×3 (09:30→17:13)
[2021-10-25] MEDS: PROSOURCE / PROSTAT (PYXIS) 30 ML UDC GT SCH ×2 (10:06→11:22)
[2021-10-25] MEDS: ARGININE/GLUTAMINE/CALCIUM BMB 1 EACH POWD.PACK GT SCH ×2 (10:06→11:22)
[2021-10-25 10:21] LABS: BASOPHILS # (AUTO) 0.1 K/uL (0.0-0.2); BASOPHILS % (AUTO) 0.4 % (0.0-2.0); EOSINOPHILS % (AUTO) 1.1 % (0.0-6.0); HEMATOCRIT 24 % (33-45); HEMOGLOBIN 7.9 g/dL (11.5-14.8); LYMPHOCYTES # (AUTO) 1.9 K/uL (0.8-4.8); LYMPHOCYTES % (AUTO) 9.9 % (20.0-44.0); MEAN CORPUSCULAR HGB CONC 33 g/dl (31.0-36.0); MEAN CORPUSCULAR VOLUME 96 fL (82-100); MONOCYTES # (AUTO) 2.2 K/uL (0.1-1.30); MONOCYTES % (AUTO) 11.9 % (2.0-12.0); NEUTROPHILS # (AUTO) 14.4 K/uL (1.8-8.9); NEUTROPHILS % (AUTO) 76.7 % (43.0-81.0); PLATELET COUNT (AUTO) 464 K/uL (150-450); RED BLOOD CELL COUNT(AUTO) 2.51 MIL/uL (4.0-5.2); WHITE BLOOD COUNT (AUTO) 18.7 K/uL (4.3-11.0)
[2021-10-25 10:24] LABS: CALCIUM, SERUM 8.9 mg/dL (8.5-10.1); CARBON DIOXIDE 27 mmol/L (21-32); CHLORIDE 93 mmol/L (98-107); CREATININE 1.5 mg/dL (0.6-1.3); GLUCOSE 150 mg/dL (74-106); POTASSIUM 3.1 mmol/L (3.5-5.1); SODIUM SERUM 131 mmol/L (136-145); UREA NITROGEN, BLOOD 44 mg/dL (7-18)
[2021-10-25 10:30] LABS: PHENOBARBITAL 3 ug/ml (15-39); PHENYTOIN (DILANTIN) 14.2 ug/ml (10.0-20.0)
[2021-10-25] MEDS ORDERED: POTASSIUM CHLORIDE 20 MEQ POWDER PACKET GT ONE (11:00)
[2021-10-25] MEDS: DAKINS QUARTER STRENGTH (0.125%) 480 ML BOTTLE TOP SCH (11:34)
[2021-10-25] MEDS: DORZOLAMIDE OPTH 2% 10 ML BOTTLE OP SCH ×2 (11:34→16:05)
[2021-10-25] MEDS: NYSTATIN TOP POWDER 15 GM BOTTLE TP SCH ×2 (11:35→21:04)
[2021-10-25] MEDS: Z GUARD REMEDY 4 OZ OINT TP SCH (11:35)
[2021-10-25] MEDS: CHOLESTYRAMINE/ASPARTAME 4 G/PKT PACKET GT SCH ×2 (11:42→20:58)
[2021-10-25] MEDS ORDERED: DOSE PER PHARMACY (MD SPECIFY MEDICATION) 1 EA IV PRN (13:30)
[2021-10-25] MEDS: CEFTAZIDIME 2 G in IV D5W 100 ML IV SCH (15:34)
--- NOTE | 2021-10-25 17:06 | NUR ---
RN NOTES: Pt WENT DOWN FOR CT OF ABD AND PELVIS AND WAS ACCOMPANIED BY STAFF.
[2021-10-25] MEDS ORDERED: IOHEXOL-300 100 ML VIAL IV ONE (17:13)
[2021-10-25] MEDS ORDERED: CT SWABBABLE VALVE TRANS SET 1 EA INFUS.SET MC ONE (17:13)
[2021-10-25 17:20] LABS: BILIRUBIN,DIRECT 0.4 mg/dL (0.0-0.2); BILIRUBIN,TOTAL 0.5 mg/dL (0.2-1.0)
--- NOTE | 2021-10-25 18:38 | NUR ---
RN CLOSING NOTES Pt IS IN BED ASLEEP AT THIS TIME. HOB ELEVATED. PT IS OBTUNDED AND OPEN THROUGHOUT THE DAY. Pt IS ON MECHANICAL VENT AT PRESCRIBED SETTINGS, NO ACUTE S/S OF RESPIRATORY DISTRESS NOTED. L UA PICC LINE AND RCW PERMACATH ARE IN PLACE WITH DRESSINGS C/D/I. G-TUBE IN PLACE WITH FEEDING OF NEPRO @ 40Ml/hr AND IS TOLERATING WELL. ASPIRATION PRECAUTIONS MAINTAINED. SAFETY PRECAUTIONS IN PLACE: BED IS LOCKED AND IN LOWEST POSITION, SIDE-RAILS UPx3. CALL LIGHT AND BEDSIDE TABLE ARE WITHIN REACH. WILL ENDORSE TO ONCOMING SHIFT
--- NOTE | 2021-10-25 19:30 | NUR ---
RN OPENING NOTES RECEIVED PT RESTING IN BED, EYES CLOSED, NON-VERBAL, EASILY AROUSABLE. ON TRACH/VENT TOLERATING SETTING WELL. NO SIGNS OF ACUTE DISTRESS NOTED. SATURATION @100%, NO SOB NOTED. PT HAS IV ACCESS ON L UA PICC LINE, INTACT AND PATENT, SL. ALSO WITH RCW PERMACATH NOTED, WITH DRESSING C/D/I. Pt HAS A G-TUBE INTACT AND PATENT, RUNNING NEPRO @40ML/HR, TOLERATING WELL. ASPIRATION PRECAUTIONS OBSERVED. SAFETY PRECAUTIONS IN PLACE. BED IN LOWEST LOCKED POSITION, HOB ELEVATED, SIDE RAILS UP X3, AND CALL LIGHT AND TABLE WITHIN REACH. WILL CONTINUE WITH PLAN OF CARE.
[2021-10-25] MEDS ORDERED: PHENYTOIN SODIUM IV 100 MG/2ML VIAL ONE (20:54)
[2021-10-25] MEDS: LATANOPROST EYE DROP 0.005% 2.5 ML BOTTLE OP SCH (21:00)
[2021-10-26] MEDS: BLOOD SUGAR DIAGNOSTIC 1 EACH STRIP IN SCH ×5 (00:14→23:55)
[2021-10-26] MEDS: VANCOMYCIN HCL 125 MG/2.5 ML ORAL.SUSP GT SCH ×5 (00:15→23:54)
[2021-10-26] MEDS: METOCLOPRAMIDE HCL 10 MG/2 ML VIAL IV SCH ×3 (00:40→21:32)
[2021-10-26] MEDS: CEFTAZIDIME 2 G in IV D5W 100 ML IV SCH (01:01)
[2021-10-26] MEDS: IPRATROPIUM NEB FS 0.5 MG/2.5 ML AMPUL.NEB NEB SCH ×4 (01:07→19:30)
[2021-10-26] MEDS ORDERED: ACETAMINOPHEN 650 MG/20.3 ML UDC ONE ×2 (01:36→21:53)
[2021-10-26] MEDS: ACETAMINOPHEN 650 MG/20.3 ML UDC GT PRN ×2 (01:37→21:54)
--- NOTE | 2021-10-26 01:37 | NUR ---
RN NOTE PT NOTED WITH FEVER OF 101.1. ADMINISTERED TYLENOL 650 MG VIA G TUBE ORDERED FOR FEVER. WILL CONTINUE TO MONITOR.
[2021-10-26] MEDS ORDERED: PHENYTOIN SODIUM IV 100 MG/2ML VIAL ONE (05:24)
[2021-10-26] MEDS: PHENYTOIN SODIUM IV 100 MG/2ML VIAL IV SCH ×3 (05:26→21:31)
[2021-10-26] MEDS: INSULIN REGULAR, HUMAN 100 UNIT/ML 3 ML VIAL SQ PRN ×3 (05:41→23:55)
--- NOTE | 2021-10-26 06:30 | NUR ---
RN CLOSING NOTES PT RESTING IN BED, EYES CLOSED, NON-VERBAL, EASILY AROUSABLE. ON TRACH/VENT TOLERATING SETTING WELL. NO SIGNS OF ACUTE DISTRESS NOTED. SATURATION @100%, NO SOB NOTED. PT HAS IV ACCESS ON L UA PICC LINE, INTACT AND PATENT, SL. ALSO WITH RCW PERMACATH NOTED, WITH DRESSING C/D/I. Pt HAS A G-TUBE INTACT AND PATENT, RUNNING NEPRO @40ML/HR, TOLERATING WELL. ASPIRATION PRECAUTIONS OBSERVED. ALL NEEDS MET AT THIS TIME. ALL DUE MEDICATIONS GIVEN. SAFETY PRECAUTIONS IN PLACE AT ALL TIMES. BED IN LOWEST LOCKED POSITION, HOB ELEVATED, SIDE RAILS UP X3, AND CALL LIGHT AND TABLE WITHIN REACH. WILL ENDORSE TO ONCOMING NURSE FOR OTIS.
[2021-10-26 10:00] VITALS: BP 107/41
[2021-10-26] MEDS: SEVELAMER CARBONATE 800 MG POWD.PACK GT SCH ×3 (10:05→17:49)
[2021-10-26] MEDS: ARGININE/GLUTAMINE/CALCIUM BMB 1 EACH POWD.PACK GT SCH ×2 (10:07→18:01)
[2021-10-26] MEDS: ASCORBIC ACID 500 MG TABLET GT SCH (10:08)
[2021-10-26] MEDS: CHLORHEXIDINE GLUCONATE 15 ML UDC MM SCH ×2 (10:08→17:48)
[2021-10-26] MEDS: PROSOURCE / PROSTAT (PYXIS) 30 ML UDC GT SCH ×2 (10:08→17:53)
[2021-10-26] MEDS: CHOLESTYRAMINE/ASPARTAME 4 G/PKT PACKET GT SCH ×2 (10:09→21:33)
[2021-10-26] MEDS: PANTOPRAZOLE 40 MG/PACK PACK GT SCH (10:09)
[2021-10-26] MEDS: DORZOLAMIDE OPTH 2% 10 ML BOTTLE OP SCH ×2 (10:11→18:04)
[2021-10-26] MEDS: DAKINS QUARTER STRENGTH (0.125%) 480 ML BOTTLE TOP SCH (10:12)
[2021-10-26] MEDS: MINERAL OIL/PETROLATUM,WHITE 120 GM JAR TP SCH ×2 (10:13→21:00)
[2021-10-26] MEDS: CLOTRIMAZOLE 1% 15 GM TUBE TP SCH ×6 (10:13→22:21)
[2021-10-26] MEDS: NYSTATIN TOP POWDER 15 GM BOTTLE TP SCH ×2 (10:15→21:37)
[2021-10-26] MEDS: Z GUARD REMEDY 4 OZ OINT TP SCH (10:16)
[2021-10-26] MEDS ORDERED: KEY,NONCONTROL,TO KEEP IN PYXI 1 EA MC ONE ×2 (11:22→17:59)
[2021-10-26] MEDS: PHENOBARBITAL 30 MG TABLET GT SCH ×2 (11:26→18:01)
[2021-10-26] MEDS: CEFTAZIDIME/AVIBACTAM 0.94 GM in IV NS 0.9% 100 ML IV SCH (14:29)
--- NOTE | 2021-10-26 15:00 | NUR ---
VOLODYMYR emailed pt.'s daughter, Charlotte the Flu, Covid-19 & Pneumonia vaccine informational sheets to [email or web address]. VOLODYMYR also emailed her the Sub-Acute visitation guidelines as recommended by [facility] Department of Public Health.
--- NOTE | 2021-10-26 15:02 | NUR ---
SS Note: VOLODYMYR called pt.'s daughter, Charlotte [phone] to discuss DC planing and Charlotte stated that she is interested in alf placement and is hopeful that she may be able to the pt. home some day. VOLODYMYR will be available to assist pt. with alf placement. CM has been involved in DC planning (see notes for details). VOLODYMYR emailed Charlotte at [email or web address] informational sheets about Flu, Pneumonia vaccines and Pfizer & moderna COVID-19 vaccines .
--- NOTE | 2021-10-26 16:37 | NUR ---
VOLODYMYR emailed the pt.'s daughter, Charlotte at [email or web address] to notify them that: Facility Update: Please note that a Sub-Acute employee tested positive for COVID-19 this weekend and a Sub-Acute pt. tested positive today. Residents and staff will continue receiving response testing as outlined by [facility] Department of Public Health. [facility] will continue to implement [facility] infection control protocols and continue screening employees before every shift. [facility] continues to follow infection control protocols and screen our residents and staff daily for symptoms.
--- NOTE | 2021-10-26 19:15 | NUR ---
RECEIVED PATIENT IN BED, OBTUNDED, NO S/S OF DISTRESS NOTED. DAUGHTER AT THE BEDSIDE. BED IN LOWEST AND LOCKED POSITION. BED ALARM ON. HOB ELEVATED AT ALL TIMES. WITH TF RUNNING AT40ML/HR. WITH TRACH ON MECHANICAL VENT. WITH O2 SAT 98%.
--- NOTE | 2021-10-26 19:20 | NUR ---
PATIENT'S PICC LINE RED PORT OCCLUDED.
--- NOTE | 2021-10-26 19:34 | NUR ---
RN CLOSING NOTES PATIENT AWAKE IN BED RESTING, OBTUNDED. NO S/S OF PAIN NOTED AT THIS TIME. ON VENT, NO DISTRESS OR SHORTNESS OF BREATH NOTED. IV ACCESS XIOMARA PICC LINE, INTACT, PATENT AND FLUSHING WELL. FALL AND SAFETY MEASURES IN PLACE, BED ALARM ON, BED IN LOW AND LOCK POSITION, CALL LIGHT AND TABLE WITHIN EASY REACH, SIDE RAILS UP X2. WILL ENDORSE TO SHELLFISH MEAT SEPARATOR OPERATOR.
[2021-10-26 20:00] VITALS: BP 115/48
[2021-10-26] MEDS: LATANOPROST EYE DROP 0.005% 2.5 ML BOTTLE OP SCH (21:38)
[2021-10-26 22:00] VITALS: BP 107/41
[2021-10-26] MEDS: DAPTOMYCIN IV SCH (22:53)
[2021-10-26] MEDS: NS 0.9% IV SCH (22:53)
[2021-10-27] MEDS: IPRATROPIUM NEB FS 0.5 MG/2.5 ML AMPUL.NEB NEB SCH ×4 (01:03→19:16)
[2021-10-27] MEDS: PHENYTOIN SODIUM IV 100 MG/2ML VIAL IV SCH ×3 (05:49→22:24)
[2021-10-27] MEDS: METOCLOPRAMIDE HCL 10 MG/2 ML VIAL IV SCH ×3 (05:49→18:57)
[2021-10-27] MEDS: VANCOMYCIN HCL 125 MG/2.5 ML ORAL.SUSP GT SCH ×3 (05:49→19:10)
[2021-10-27] MEDS: INSULIN REGULAR, HUMAN 100 UNIT/ML 3 ML VIAL SQ PRN ×3 (06:45→19:20)
[2021-10-27] MEDS: BLOOD SUGAR DIAGNOSTIC 1 EACH STRIP IN SCH ×3 (06:47→19:20)
--- NOTE | 2021-10-27 07:30 | NUR ---
RN NOTES PT IN BED, ASLEEP, RESPIRATIONS NORMAL AND NON LABORED, NO SIGN OF PAIN, ON VENT/TRACH, GT FEEDING INFUSING WELL, KEPT TRIP RIDER BED.
[2021-10-27 08:34] VITALS: BP 117/50
[2021-10-27] MEDS: DAKINS QUARTER STRENGTH (0.125%) 480 ML BOTTLE TOP SCH (09:19)
[2021-10-27] MEDS: SEVELAMER CARBONATE 800 MG POWD.PACK GT SCH ×3 (09:20→18:57)
[2021-10-27] MEDS: CLOTRIMAZOLE 1% 15 GM TUBE TP SCH ×6 (09:20→22:27)
[2021-10-27] MEDS: CHOLESTYRAMINE/ASPARTAME 4 G/PKT PACKET GT SCH ×2 (09:21→22:22)
[2021-10-27] MEDS: PANTOPRAZOLE 40 MG/PACK PACK GT SCH (09:21)
[2021-10-27] MEDS: DORZOLAMIDE OPTH 2% 10 ML BOTTLE OP SCH ×2 (09:21→18:57)
[2021-10-27] MEDS: CHLORHEXIDINE GLUCONATE 15 ML UDC MM SCH ×2 (09:21→18:57)
[2021-10-27] MEDS: MINERAL OIL/PETROLATUM,WHITE 120 GM JAR TP SCH ×2 (09:29→21:00)
[2021-10-27] MEDS: NYSTATIN TOP POWDER 15 GM BOTTLE TP SCH ×2 (09:29→21:00)
[2021-10-27] MEDS: PROSOURCE / PROSTAT (PYXIS) 30 ML UDC GT SCH ×2 (09:44→18:57)
[2021-10-27] MEDS: ARGININE/GLUTAMINE/CALCIUM BMB 1 EACH POWD.PACK GT SCH ×2 (09:45→18:57)
[2021-10-27] MEDS: ASCORBIC ACID 500 MG TABLET GT SCH (09:50)
[2021-10-27] MEDS: Z GUARD REMEDY 4 OZ OINT TP SCH (11:11)
[2021-10-27] MEDS ORDERED: KEY,NONCONTROL,TO KEEP IN PYXI 1 EA MC ONE ×2 (11:30→17:35)
[2021-10-27] MEDS: PHENOBARBITAL 30 MG TABLET GT SCH ×2 (11:32→18:57)
[2021-10-27 13:00] VITALS: BP 131/49
--- NOTE | 2021-10-27 13:45 | NUR ---
RN NOTES PT PICKED UP BY [facility]BULANCE PERSON[facility]EL FOR DIALYSIS, PT IN STABLE CONDITION.
[2021-10-27 18:30] VITALS: BP 89/35
--- NOTE | 2021-10-27 19:00 | NUR ---
RN NOTES PT CAME BACK FROM DIALYSIS AT 1815 VIA YOLANDA, ASSISTED TO BED, PM CARE PROVIDED, WOUND DRESSING AND TREATMENT DONE, VS CHECKED, PM MEDS GIVEN, DAUGHTER AT BEDSIDE, RT CAME AND CHECKED PT, TRACH CARE DONE, ALL NEEDS ATTENDED, AFEBRILE AT THIS TIME.
[2021-10-27] MEDS: MIDODRINE HCL (5MG) 5 MG TABLET GT PRN (19:09)
--- NOTE | 2021-10-27 19:25 | NUR ---
RECEIVED PATIENT IN BED HOB ELEVATED, OBTUNDED. NO S/S OF DISTRESS NOTED. NOT IN PAIN, COMFORTABLE. BED IN LOWEST AND LOCKED POSITION. DAUGHTER AT THE BEDSIDE. WITH TRACH INTACT CONNECTED TO MECHANICAL VENT, SATING 98%. WITH TF RUNNING AT 40ML/HOUR. CONTACT ISOLATION MAINTAINED.
[2021-10-27 20:00] VITALS: BP 106/93
[2021-10-27] MEDS ORDERED: PHENYTOIN SODIUM IV 100 MG/2ML VIAL ONE ×2 (22:16→22:20)
[2021-10-27] MEDS: LATANOPROST EYE DROP 0.005% 2.5 ML BOTTLE OP SCH (22:26)
[2021-10-28] MEDS: VANCOMYCIN HCL 125 MG/2.5 ML ORAL.SUSP GT SCH ×5 (00:29→23:50)
[2021-10-28] MEDS: METOCLOPRAMIDE HCL 10 MG/2 ML VIAL IV SCH ×4 (00:29→23:51)
[2021-10-28] MEDS: INSULIN REGULAR, HUMAN 100 UNIT/ML 3 ML VIAL SQ PRN ×2 (00:42→06:47)
[2021-10-28] MEDS: BLOOD SUGAR DIAGNOSTIC 1 EACH STRIP IN SCH ×5 (00:42→23:51)
[2021-10-28] MEDS: IPRATROPIUM NEB FS 0.5 MG/2.5 ML AMPUL.NEB NEB SCH ×2 (01:12→19:40)
[2021-10-28 04:00] VITALS: BP 105/37
[2021-10-28] MEDS ORDERED: PHENYTOIN SODIUM IV 100 MG/2ML VIAL ONE (05:07)
[2021-10-28] MEDS: PHENYTOIN SODIUM IV 100 MG/2ML VIAL IV SCH ×3 (05:13→20:51)
--- NOTE | 2021-10-28 05:26 | NUR ---
DRESSING ON THE G-SITE CHANGED, WITH SMALL AMOUNT OF DRAINAGE,YELLOWISH COLOR, WITH VERY SLIGHT SKIN IRRITATION AROUND THE STOMA. LEFT UPPER ARM PICC LINE DRESSING CHANGED, 2PORTS COVERED WITH GREEN CUROS. RED PORT STILL OCCLUDED, OTHER PORT WITH GOOD BLOOD RETURN,FLUSHED WITH 10CC NS AND EVERY USED. PATIENT RESTING COMFORTABLY, WITH THE HOB ELEVATED AT ALL TIMES. NO S/S OF DISTRESS NOTED. NOT IN PAIN. BED ALARM ON. BED IN LOWEST AND LOCKED POSITION. HEELS OFFLOADED AT ALL TIMES.. TURNED AND REPOSITIONED. NO GT FEEDING RESIDUAL. HAD BM, MEDIUM SIZE, SOFT BROWNISH COLOR STOOL.
--- NOTE | 2021-10-28 07:19 | NUR ---
RN OPENING NOTES PATIENT AWAKE IN BED RESTING, OBTUNDED. NO S/S OF PAIN NOTED AT THIS TIME. ON VENT, NO DISTRESS OR SHORTNESS OF BREATH NOTED. IV ACCESS XIOMARA PICC LINE, INTACT, PATENT AND FLUSHING WELL. FALL AND SAFETY MEASURES IN PLACE, BED ALARM ON, BED IN LOW AND LOCK POSITION, CALL LIGHT AND TABLE WITHIN EASY REACH, SIDE RAILS UP X2. WILL CONTINUE TO MONITOR PATIENT.
[2021-10-28 08:00] VITALS: BP 99/43
[2021-10-28] MEDS: NYSTATIN TOP POWDER 15 GM BOTTLE TP SCH ×2 (09:00→20:49)
[2021-10-28] MEDS: MINERAL OIL/PETROLATUM,WHITE 120 GM JAR TP SCH ×2 (09:00→20:49)
[2021-10-28] MEDS: CLOTRIMAZOLE 1% 15 GM TUBE TP SCH ×6 (09:00→20:49)
[2021-10-28] MEDS: Z GUARD REMEDY 4 OZ OINT TP SCH (09:00)
[2021-10-28] MEDS: DORZOLAMIDE OPTH 2% 10 ML BOTTLE OP SCH ×2 (09:00→17:00)
[2021-10-28] MEDS: DAKINS QUARTER STRENGTH (0.125%) 480 ML BOTTLE TOP SCH (09:00)
[2021-10-28] MEDS: PANTOPRAZOLE 40 MG/PACK PACK GT SCH (09:33)
[2021-10-28] MEDS: CHLORHEXIDINE GLUCONATE 15 ML UDC MM SCH ×2 (09:34→17:50)
[2021-10-28] MEDS: ARGININE/GLUTAMINE/CALCIUM BMB 1 EACH POWD.PACK GT SCH ×2 (09:37→17:50)
[2021-10-28] MEDS: PROSOURCE / PROSTAT (PYXIS) 30 ML UDC GT SCH ×2 (09:37→17:50)
[2021-10-28 10:00] VITALS: BP 99/43
[2021-10-28] MEDS ORDERED: KEY,NONCONTROL,TO KEEP IN PYXI 1 EA MC ONE ×3 (11:13→17:56)
[2021-10-28] MEDS: PHENOBARBITAL 30 MG TABLET GT SCH ×2 (11:23→17:57)
[2021-10-28] MEDS: CHOLESTYRAMINE/ASPARTAME 4 G/PKT PACKET GT SCH ×2 (11:24→20:49)
[2021-10-28] MEDS: SEVELAMER CARBONATE 800 MG POWD.PACK GT SCH ×3 (11:24→17:50)
[2021-10-28] MEDS: ASCORBIC ACID 500 MG TABLET GT SCH (11:24)
[2021-10-28] MEDS: CEFTAZIDIME/AVIBACTAM 0.94 GM in IV NS 0.9% 100 ML IV SCH (14:22)
[2021-10-28 16:00] VITALS: BP 98/37
--- NOTE | 2021-10-28 17:00 | NUR ---
SON ART WANTS TO TALK TO HVAC SPECIALIST AND BYPRODUCTS MAKER WHO RECOMMENDED TUBE FEEDING CHANGE. HVAC SPECIALIST ALREADY GONE FOR THE DAY. ENDORSED ACCORDINGLY. WILL FOLLOW UP TOMORROW.
[2021-10-28] MEDS: NS 0.9% IV SCH (17:11)
[2021-10-28] MEDS: DAPTOMYCIN IV SCH (17:11)
[2021-10-28] MEDS: ACETAMINOPHEN 650 MG/20.3 ML UDC GT PRN (17:45)
--- NOTE | 2021-10-28 19:00 | NUR ---
MS RN CLOSING NOTES: PATIENT ON BED, AWAKE, A/O X4, NO S/S OF DISTRESS NOTED. NO COMPLAIN OF PAIN. WITH LEFT HAND IMMOBILIZER WITH ABDOMINAL PERITONEAL DIALYSIS TUBE INTACT ON THE RLQ, DRESSING IS CLEAN, DRY AND INTACT. WITH LEFT ARM AV SHUNT NOT FUNCTIONING. BED IN LOWEST AND LOCKED POSITION. CALL LIGHT WITHIN REACH. WILL ENDORSE TO NEXT SHIFT FOR CONTINUITY OF CARE.
[2021-10-28] MEDS: LATANOPROST EYE DROP 0.005% 2.5 ML BOTTLE OP SCH (21:28)
[2021-10-28 23:16] VITALS: BP 115/42
[2021-10-29] VITALS (8 sets, daily range): BP systolic 86–127; BP diastolic 35–55
[2021-10-29] MEDS: INSULIN REGULAR, HUMAN 100 UNIT/ML 3 ML VIAL SQ PRN ×2 (00:04→05:32)
[2021-10-29] MEDS: IPRATROPIUM NEB FS 0.5 MG/2.5 ML AMPUL.NEB NEB SCH ×4 (01:43→19:46)
[2021-10-29] MEDS: ACETAMINOPHEN 650 MG/20.3 ML UDC GT PRN (02:02)
[2021-10-29] MEDS: VANCOMYCIN HCL 125 MG/2.5 ML ORAL.SUSP GT SCH ×3 (05:05→18:43)
[2021-10-29] MEDS: PHENYTOIN SODIUM IV 100 MG/2ML VIAL IV SCH ×3 (05:05→21:07)
[2021-10-29] MEDS: BLOOD SUGAR DIAGNOSTIC 1 EACH STRIP IN SCH ×3 (05:33→19:01)
--- NOTE | 2021-10-29 06:47 | NUR ---
RN CLOSING NOTE PATIENT AWAKE IN BED RESTING, OBTUNDED. NO S/S OF PAIN NOTED AT THIS TIME. ON VENT, NO DISTRESS OR SHORTNESS OF BREATH NOTED. IV ACCESS XIOMARA PICC LINE, INTACT, PATENT AND FLUSHING WELL. FALL AND SAFETY MEASURES IN PLACE, BED ALARM ON, BED IN LOW AND LOCK POSITION, CALL LIGHT AND TABLE WITHIN EASY REACH, SIDE RAILS UP X2. NO FEVER AT THIS TIME.WILL ENDORSE CARE TO DAY SHIFT NURSE.
--- NOTE | 2021-10-29 07:30 | NUR ---
RN OPENING NOTES PATIENT IN BED RESTING, OBTUNDED. NO S/S OF PAIN NOTED AT THIS TIME. ON VENT, NO DISTRESS OR SHORTNESS OF BREATH NOTED. IV ACCESS XIOMARA PICC LINE, INTACT, PATENT AND FLUSHING WELL. FALL AND SAFETY MEASURES IN PLACE, BED ALARM ON, BED IN LOW AND LOCK POSITION, CALL LIGHT AND TABLE WITHIN EASY REACH, SIDE RAILS UP X2. WILL CONTINUE TO MONITOR PATIENT.
[2021-10-29] MEDS: PANTOPRAZOLE 40 MG/PACK PACK GT SCH (08:08)
[2021-10-29] MEDS: METOCLOPRAMIDE HCL 10 MG/2 ML VIAL IV SCH ×2 (08:08→16:19)
[2021-10-29] MEDS: ASCORBIC ACID 500 MG TABLET GT SCH (08:08)
[2021-10-29] MEDS: CHLORHEXIDINE GLUCONATE 15 ML UDC MM SCH ×2 (08:08→18:41)
[2021-10-29] MEDS: PROSOURCE / PROSTAT (PYXIS) 30 ML UDC GT SCH ×2 (08:09→18:43)
[2021-10-29] MEDS: CHOLESTYRAMINE/ASPARTAME 4 G/PKT PACKET GT SCH ×2 (08:09→21:09)
[2021-10-29] MEDS: SEVELAMER CARBONATE 800 MG POWD.PACK GT SCH ×3 (08:09→18:41)
[2021-10-29] MEDS: DORZOLAMIDE OPTH 2% 10 ML BOTTLE OP SCH ×2 (08:32→17:00)
[2021-10-29] MEDS: MINERAL OIL/PETROLATUM,WHITE 120 GM JAR TP SCH ×2 (08:33→21:07)
[2021-10-29] MEDS: DAKINS QUARTER STRENGTH (0.125%) 480 ML BOTTLE TOP SCH (08:33)
[2021-10-29] MEDS: CLOTRIMAZOLE 1% 15 GM TUBE TP SCH ×6 (08:33→21:08)
[2021-10-29] MEDS: Z GUARD REMEDY 4 OZ OINT TP SCH (08:34)
[2021-10-29] MEDS: NYSTATIN TOP POWDER 15 GM BOTTLE TP SCH ×2 (08:34→21:08)
[2021-10-29] MEDS: ARGININE/GLUTAMINE/CALCIUM BMB 1 EACH POWD.PACK GT SCH ×2 (09:22→18:42)
[2021-10-29] MEDS: PHENOBARBITAL 30 MG TABLET GT SCH ×2 (09:22→18:42)
--- NOTE | 2021-10-29 12:35 | NUR ---
RN NOTES AMBULANCE PERSONNEL PICKED THE PT UP FOR HEMODIALYSIS. PATIENT NOT IN DISTRESS.
--- NOTE | 2021-10-29 13:25 | NUR ---
Spoke with pt's daughter Landon. Asked her if pt has received flu, pneumococcal, and Covid vaccines. She said her mother has not received any vaccine. Offered flu, pneumococcal, and Covid vaccines to her but she refused. Explained risks and benefits, but she still refused.
--- NOTE | 2021-10-29 14:07 | NUR ---
SS note: VOLODYMYR received call from pt.s daughter, Charlotte [phone] stating that when pt. returned from [facility] it appears pt. has not been suctioned and has phlegm on her neck and outh/face mask. Charlotte also stated she is concerned because pt. does not seem to be feeling well when she returns from HD. Charlotte reports, pt. allegedly shakes, appears weak after HD. VOLODYMYR validated Shirleyguero concerns. SW provided emotional support. Pt. is monitored at [facility]. VOLODYMYR called renal [phone] and spoke to Destini to discuss this. Destini stated that RT are required to stay with pt. during HD apt. for deep suctioning and if they need a break they need to inform a nurse to watch pt. Destini stated that she will ask the nurses at renal to provide education to pt.s family regarding post HD side effects & patient care. VOLODYMYR called [facility]: Call the car and asked to speak to management to ensure RT are providing suctioning to the pt. during the dialysis time period. VOLODYMYR was told to call back on 10/30/2020 around 12 pm as the physical security manager, Zuleika will be in at this time. VOLODYMYR also left call back number to be given to Zuleika. VOLODYMYR called Charlotte [phone] and discussed above stated information. Charlotte appreciated the follow up.
--- NOTE | 2021-10-29 14:10 | NUR ---
SS Note: SW discussed with pt.'s daughter, Krishna regarding no bed availability in our actual sub-acute unit and offered help with finding care home placement in alternate sub-acute or [facility]. Charlotte stated she will think about it and let this SW know. SW will remain available as needed.
--- NOTE | 2021-10-29 18:40 | NUR ---
RN NOTES PATIENT CAME BACK FROM HEMODIALYSIS ASSISTED BY AMBULANCE PERSONNELS. VITAL SIGNS CHECKED: STABLE.
--- NOTE | 2021-10-29 19:21 | NUR ---
RN OPENING NOTES PATIENT IN BED RESTING, OBTUNDED. NO S/S OF PAIN NOTED AT THIS TIME. ON VENT, NO DISTRESS OR SHORTNESS OF BREATH NOTED. IV ACCESS XIOMARA PICC LINE, INTACT, PATENT AND FLUSHING WELL. FALL AND SAFETY MEASURES IN PLACE, BED ALARM ON, BED IN LOW AND LOCK POSITION, CALL LIGHT AND TABLE WITHIN EASY REACH, SIDE RAILS UP X2. WILL CONTINUE TO MONITOR PATIENT. Addendum: 10/29/21 at 1934 by BRIAN KILPATRICK RN ERROR
--- NOTE | 2021-10-29 19:21 | NUR ---
RN CLOSING NOTES PATIENT IN BED RESTING, OBTUNDED. NO S/S OF PAIN NOTED AT THIS TIME. ON VENT, NO DISTRESS OR SHORTNESS OF BREATH NOTED. IV ACCESS XIOMARA PICC LINE, INTACT, PATENT AND FLUSHING WELL. FALL AND SAFETY MEASURES IN PLACE, BED ALARM ON, BED IN LOW AND LOCK POSITION, CALL LIGHT AND TABLE WITHIN EASY REACH, SIDE RAILS UP X2. WILL ENDORSE TO NEXT SHIFT FOR OTIS.
[2021-10-29] MEDS: MIDODRINE HCL (5MG) 5 MG TABLET GT PRN (20:49)
[2021-10-29] MEDS: LATANOPROST EYE DROP 0.005% 2.5 ML BOTTLE OP SCH (21:08)
[2021-10-30] VITALS: BP 100/42
[2021-10-30] MEDS: BLOOD SUGAR DIAGNOSTIC 1 EACH STRIP IN SCH ×4 (00:24→17:55)
[2021-10-30] MEDS: METOCLOPRAMIDE HCL 10 MG/2 ML VIAL IV SCH ×3 (00:24→16:50)
[2021-10-30] MEDS: VANCOMYCIN HCL 125 MG/2.5 ML ORAL.SUSP GT SCH ×4 (00:24→17:37)
[2021-10-30] MEDS: IPRATROPIUM NEB FS 0.5 MG/2.5 ML AMPUL.NEB NEB SCH ×4 (02:10→20:01)
[2021-10-30] MEDS ORDERED: ACETAMINOPHEN 650 MG/20.3 ML UDC ONE (05:27)
[2021-10-30] MEDS: PHENYTOIN SODIUM IV 100 MG/2ML VIAL IV SCH ×3 (05:29→23:22)
[2021-10-30] MEDS: ACETAMINOPHEN 650 MG/20.3 ML UDC GT PRN (05:29)
--- NOTE | 2021-10-30 06:36 | NUR ---
SA RN NOTES PT RESPONSIVE TACTILE STIMULI. NON VERBAL WITH SAME VENT SETTINGS. NOT IN ANY DISTRESS. NO SOB NOTED. NO S/SX OF ANY PAIN OR DISCOMFORT AT THIS TIME. WITH IV-HL PATENT & INTACT. WITH GTF INFUSING WELL. AM CARE DONE. MONITORED ACCORDINGLY. CALL LIGHT WITHIN REACH. BED IN LOWEST POSITION. SR UP X 3 WITH BED ALARM ON FOR SAFETY. WILL ENDORSE TO NEXT SHIFT.
[2021-10-30] MEDS ORDERED: KEY,NONCONTROL,TO KEEP IN PYXI 1 EA MC ONE (08:41)
[2021-10-30] MEDS: CHLORHEXIDINE GLUCONATE 15 ML UDC MM SCH ×2 (08:45→16:49)
[2021-10-30] MEDS: ASCORBIC ACID 500 MG TABLET GT SCH (08:46)
[2021-10-30] MEDS: CHOLESTYRAMINE/ASPARTAME 4 G/PKT PACKET GT SCH ×2 (08:46→23:15)
[2021-10-30] MEDS: PANTOPRAZOLE 40 MG/PACK PACK GT SCH (08:46)
[2021-10-30] MEDS: SEVELAMER CARBONATE 800 MG POWD.PACK GT SCH ×3 (08:46→17:37)
[2021-10-30] MEDS: PHENOBARBITAL 30 MG TABLET GT SCH ×2 (08:47→16:50)
[2021-10-30] MEDS: PROSOURCE / PROSTAT (PYXIS) 30 ML UDC GT SCH ×2 (08:56→16:49)
[2021-10-30] MEDS: ARGININE/GLUTAMINE/CALCIUM BMB 1 EACH POWD.PACK GT SCH ×2 (08:56→16:49)
[2021-10-30] MEDS: NYSTATIN TOP POWDER 15 GM BOTTLE TP SCH (09:00)
[2021-10-30] MEDS: CLOTRIMAZOLE 1% 15 GM TUBE TP SCH ×6 (09:00→21:00)
[2021-10-30] MEDS: NEPRO 1,000 ML BOTTLE GT PRN (09:14)
[2021-10-30] MEDS: DORZOLAMIDE OPTH 2% 10 ML BOTTLE OP SCH ×2 (11:01→18:38)
[2021-10-30] MEDS: INSULIN REGULAR, HUMAN 100 UNIT/ML 3 ML VIAL SQ PRN (11:35)
[2021-10-30] MEDS: MINERAL OIL/PETROLATUM,WHITE 120 GM JAR TP SCH ×2 (12:33→23:13)
[2021-10-30] MEDS: DAKINS QUARTER STRENGTH (0.125%) 480 ML BOTTLE TOP SCH (12:34)
[2021-10-30] MEDS: Z GUARD REMEDY 4 OZ OINT TP SCH (14:50)
[2021-10-30] MEDS: CEFTAZIDIME/AVIBACTAM 0.94 GM in IV NS 0.9% 100 ML IV SCH (14:51)
--- NOTE | 2021-10-30 15:34 | NUR ---
FOLLOW UP: VOLODYMYR called [facility]: Call the car and asked to speak to Zuleika. VOLODYMYR relayed compaint from family that pt. returns from HD with alot of secretions inthe neck and mouth and we mask as if she has not been suctioned. Zuleika checked and confirmed that insurance if paying for RT provided by transportation to stay with pt. during entire trip to provide suctioning. Zuleika stated she will call [facility] and address this matter. Per Zuleika, she will touch base with VOLODYMYR on Tuesday to see if there were any complaints for Tuesday's trip 10/31/2020. Noted. VOLODYMYR will remain available.
[2021-10-30] MEDS: NS 0.9% IV SCH (15:59)
[2021-10-30] MEDS: DAPTOMYCIN IV SCH (15:59)
--- NOTE | 2021-10-30 18:22 | NUR ---
RN CLOSING NOTES Patient in bed, no SOB, respirations even and unlabored, no shortness of breath, no nausea, no vomiting, abdominal bowel sound present in all quadrant, no grimacing when abdomen palpated. No bleeding noted, no unusual bruising, no hematuria, no blood in stool, no bleeding gums. Gastric tube remained patent, intact and in place during shift, placement verified by auscultation and aspiration of gastric residuals. All due medications given via gtube per MD order, tolerating well. No s/s of hypo or hyperglycemia, no tremors, no change in level of consciousness, insulin given per sliding scale as needed per MD order, tolerating well. Kept clean and dry, all needs attended, call light left within reach, aspiration precautions observed at all times, seizure precautions rendered, safety precautions in place, brakes locked, side rails up X 2, will endorse to next shift for continuity of care.
--- NOTE | 2021-10-30 19:50 | NUR ---
DISCHARGED INTO THE CARE OF HER SISTER PAPERS SIGNED PATIENT ABLE TO WALK TO THE W/C TAKEN TO A PRIVATE CAR HEP LOCJ REMOVED BY THE PATIENT SITE CLEAN AND DRY Addendum: 10/31/21 at 0143 by FLACO TRAMMELL RN CHARTED ON THEW WRONG PATENT
[2021-10-30 22:00] VITALS: BP 109/46
[2021-10-30] MEDS ORDERED: CHOLESTYRAMINE/ASPARTAME 4 G/PKT PACKET GT SCH (22:39)
[2021-10-30] MEDS: LATANOPROST EYE DROP 0.005% 2.5 ML BOTTLE OP SCH (22:42)
[2021-10-30] MEDS ORDERED: PHENYTOIN SODIUM IV 100 MG/2ML VIAL IV SCH (22:47)
[2021-10-31] MEDS: CLOTRIMAZOLE 1% 15 GM TUBE TP SCH ×7 (00:01→21:11)
[2021-10-31] MEDS: NYSTATIN TOP POWDER 15 GM BOTTLE TP SCH ×3 (00:02→21:02)
[2021-10-31] MEDS: METOCLOPRAMIDE HCL 10 MG/2 ML VIAL IV SCH ×3 (00:04→18:22)
[2021-10-31] MEDS: BLOOD SUGAR DIAGNOSTIC 1 EACH STRIP IN SCH ×4 (00:10→19:37)
[2021-10-31] MEDS: VANCOMYCIN HCL 125 MG/2.5 ML ORAL.SUSP GT SCH ×4 (00:13→18:27)
[2021-10-31] MEDS: IPRATROPIUM NEB FS 0.5 MG/2.5 ML AMPUL.NEB NEB SCH ×4 (02:13→19:38)
[2021-10-31 05:30] VITALS: BP 104/48
[2021-10-31] MEDS: PHENYTOIN SODIUM IV 100 MG/2ML VIAL IV SCH ×3 (05:37→21:18)
--- NOTE | 2021-10-31 05:44 | NUR ---
CLOSING NOTES: WILL OPEN EYES WHEN BEING CLEANED AND REPOSITIONED NONVERBAL MAX ASSIST TO BE TURNED THRU THE NIGHT TURNED TO SIDES STAGE 4 DECUB DRESSING CHANGED D/T STOOL SOFT STOOL BROWN IN COLOR TEEM 100'9 THIS AM
[2021-10-31] MEDS ORDERED: ACETAMINOPHEN 650 MG/20.3 ML UDC ONE (06:33)
[2021-10-31] MEDS: ACETAMINOPHEN 650 MG/20.3 ML UDC GT PRN ×2 (06:38→06:42)
--- NOTE | 2021-10-31 07:43 | NUR ---
RN OPENING NOTES Patient seen comfortably lying in bed, breathing even and unlabored, no SOB, no apparent distress noted, denies any pain or discomfort at this time, no grimacing. Call light left within reach, safety precautions in place, brakes locked, side rails up X 2, will monitor closely for any changes.
[2021-10-31] MEDS: CHLORHEXIDINE GLUCONATE 15 ML UDC MM SCH ×2 (08:08→18:23)
[2021-10-31] MEDS: CHOLESTYRAMINE/ASPARTAME 4 G/PKT PACKET GT SCH ×2 (08:08→21:00)
[2021-10-31] MEDS: SEVELAMER CARBONATE 800 MG POWD.PACK GT SCH ×3 (08:08→18:23)
[2021-10-31] MEDS: PANTOPRAZOLE 40 MG/PACK PACK GT SCH (08:08)
[2021-10-31] MEDS: ASCORBIC ACID 500 MG TABLET GT SCH (08:08)
[2021-10-31] MEDS: PROSOURCE / PROSTAT (PYXIS) 30 ML UDC GT SCH ×2 (08:09→18:24)
[2021-10-31] MEDS: ARGININE/GLUTAMINE/CALCIUM BMB 1 EACH POWD.PACK GT SCH ×2 (08:09→18:24)
[2021-10-31] MEDS: DORZOLAMIDE OPTH 2% 10 ML BOTTLE OP SCH ×2 (08:09→18:23)
[2021-10-31] MEDS: PHENOBARBITAL 30 MG TABLET GT SCH ×2 (08:33→18:27)
[2021-10-31] MEDS: Z GUARD REMEDY 4 OZ OINT TP SCH (08:49)
[2021-10-31] MEDS: MINERAL OIL/PETROLATUM,WHITE 120 GM JAR TP SCH ×2 (08:49→21:07)
[2021-10-31] MEDS: DAKINS QUARTER STRENGTH (0.125%) 480 ML BOTTLE TOP SCH (08:50)
[2021-10-31 08:54] VITALS: BP 101/41
[2021-10-31] MEDS: MIDODRINE HCL (5MG) 5 MG TABLET GT PRN (12:14)
[2021-10-31] MEDS: INSULIN REGULAR, HUMAN 100 UNIT/ML 3 ML VIAL SQ PRN (13:14)
--- NOTE | 2021-10-31 13:32 | NUR ---
Patient left unit for dialysis via [employer] transportation, no apparent distress noted, no shortness of breath, afebrile, vital signs within normal limits, no s/s of hypo/hyperglycemia, no tremors, no change in level of consciousness, patient appears clean, and comfortable. Dialysis site dressing dry and intact, no bleeding, no unusual drainage, no unusual smell noted, no redness. Daughter at bedside. Surgical mask provided to patient, extra blanket and hospital gown provided. Dialysis paperworks and facesheet in a folder handed to [facility] transportation crew.
--- NOTE | 2021-10-31 13:37 | NUR ---
Patient left unit for dialysis via [employer] transportation, no apparent distress noted, no shortness of breath, afebrile, vital signs within normal limits, no s/s of hypo/hyperglycemia, no tremors, no change in level of consciousness, patient appears clean, and comfortable. Dialysis site dressing dry and intact, no bleeding, no unusual drainage, no unusual smell noted, no redness. Daughter at bedside. Surgical mask provided to patient, extra blanket and hospital gown provided. Dialysis paperworks and facesheet in a folder handed to [facility] transportation crew. Patient left unit in stable condition at 1332pm.
[2021-10-31] MEDS ORDERED: KEY,NONCONTROL,TO KEEP IN PYXI 1 EA MC ONE (18:26)
--- NOTE | 2021-10-31 18:35 | NUR ---
Patient came back from dialysis around 183, no apparent distress noted, was noted to have wet gown, [employer] rendered care, hospital gown and diaper changed, vital signs within normal limits, afebrile, no s/s of hypo/hyperglycemia, no tremors, no change in level of consciousness. Per transportation, 600ml was removed from patient, tried to call dialysis center to verify but went straight to [facility], [facility] communication sheet was not returned and per transportation, nobody gave them a paper, daughter Charlotte witnessed the RN giving the paperworks to [facility] transportation crew this morning. Dialysis site dressing dry and intact, no bleeding, no unusual drainage, no unusual smell noted, no redness. Daughter at bedside with a lot of concerns regarding how dialysis center and transportation, will follow up.
--- NOTE | 2021-10-31 18:42 | NUR ---
Patient in bed, respirations even and unlabored, no shortness of breath, remained afebrile during shift, no bleeding noted, no unusual bruising, no hematuria, no blood in stool, no bleeding gums. Gastric tube remained patent, intact and in place during shift, placement verified by auscultation and aspiration of gastric residuals. All due medications given via gtube per MD order, tolerating well. Insulin given per sliding scale as needed per MD order no s/s of hypo or hyperglycemia, no change in level of consciousness, no tremors, tolerating well. All needs anticipated, kept clean and dry, aspiration precautions observed at all times, seizure precautions rendered, safety precautions in place, frequent visual checks done, brakes locked, padded side rails up X 2, call light left within reach, will endorse to next shift for continuity of care.
[2021-10-31 20:00] VITALS: BP_SYST 102; BP_SYST 97; BP_DIAS 54; BP_DIAS 60
--- NOTE | 2021-10-31 20:45 | NUR ---
RN NOTE RECEIVED PATIENT IN BED RESTING OBTUNDED,NON VERBAL, EYES CLOSED ON MECHANICAL VENT ON G-TUBE FEEDING NEPRO 40CC/HR CHECKED PLACEMENT IN PLACE,NO RESIDUAL NOTED,IV SITE IS LEFT FOREARM PICC LINE INTACT PATENT,SAFETY MEASURE IMPLEMENT BED IN LOW POSITION AND LOCKED,HEAD OF THE BED ELEVATED CONTINUE TO MONITOR
[2021-10-31] MEDS: LATANOPROST EYE DROP 0.005% 2.5 ML BOTTLE OP SCH (21:07)
[2021-10-31 22:00] VITALS: BP 115/49
[2021-11-01] VITALS: BP 115/49
[2021-11-01] MEDS: VANCOMYCIN HCL 125 MG/2.5 ML ORAL.SUSP GT SCH ×4 (00:07→18:17)
[2021-11-01] MEDS: BLOOD SUGAR DIAGNOSTIC 1 EACH STRIP IN SCH ×4 (00:08→18:46)
[2021-11-01] MEDS: METOCLOPRAMIDE HCL 10 MG/2 ML VIAL IV SCH ×3 (00:12→18:15)
[2021-11-01] MEDS: IPRATROPIUM NEB FS 0.5 MG/2.5 ML AMPUL.NEB NEB SCH ×3 (01:49→19:04)
[2021-11-01 04:00] VITALS: BP_SYST 102; BP_SYST 115; BP_DIAS 41; BP_DIAS 49
[2021-11-01] MEDS: NEPRO 1,000 ML BOTTLE GT PRN ×2 (04:59→16:28)
[2021-11-01] MEDS ORDERED: ACETAMINOPHEN 650 MG/20.3 ML UDC ONE (05:23)
[2021-11-01] MEDS: ACETAMINOPHEN 650 MG/20.3 ML UDC GT PRN (05:25)
[2021-11-01] MEDS: PHENYTOIN SODIUM IV 100 MG/2ML VIAL IV SCH ×3 (05:42→21:35)
--- NOTE | 2021-11-01 06:38 | NUR ---
RN NOTE PATIENT REMAINS OBTUNDED ON MECHANICAL VENT NOT ACUTE DISTRESS NOTED,HEAD OF THE BED ELEVATED,ALL DUE PO MEDS GIVEN VIA G-TUBE,KEPT CLEAN AND DRY ALL THE TIME,REPOSITIONED EVERY 2 HOURS,ALL NEEDS MET.PATIENT DAUGHTER CALLED, AND UPDATED HER STATUS,ENDORSE NEXT COMING SHIFT FOR CONTINUATION OF CARE.
--- NOTE | 2021-11-01 07:35 | NUR ---
RN OPENING NOTES Patient seen comfortably lying in bed, no SOB, no apparent distress noted, breathing even and unlabored, no grimacing. Call light left within reach, safety precautions in place, brakes locked, side rails up X 2, will monitor closely for any changes.
[2021-11-01 08:28] VITALS: BP 93/38
[2021-11-01] MEDS: SEVELAMER CARBONATE 800 MG POWD.PACK GT SCH ×3 (08:45→18:15)
[2021-11-01] MEDS: CHLORHEXIDINE GLUCONATE 15 ML UDC MM SCH ×2 (08:45→18:15)
[2021-11-01] MEDS: CHOLESTYRAMINE/ASPARTAME 4 G/PKT PACKET GT SCH ×2 (08:45→21:35)
[2021-11-01] MEDS: PANTOPRAZOLE 40 MG/PACK PACK GT SCH (08:45)
[2021-11-01] MEDS: DORZOLAMIDE OPTH 2% 10 ML BOTTLE OP SCH ×2 (08:46→18:16)
[2021-11-01] MEDS: ASCORBIC ACID 500 MG TABLET GT SCH (08:46)
[2021-11-01] MEDS: ARGININE/GLUTAMINE/CALCIUM BMB 1 EACH POWD.PACK GT SCH ×2 (08:49→18:17)
[2021-11-01] MEDS: PROSOURCE / PROSTAT (PYXIS) 30 ML UDC GT SCH ×2 (08:50→17:00)
[2021-11-01] MEDS: Z GUARD REMEDY 4 OZ OINT TP SCH (09:00)
[2021-11-01] MEDS: MINERAL OIL/PETROLATUM,WHITE 120 GM JAR TP SCH ×2 (09:00→21:34)
[2021-11-01] MEDS: CLOTRIMAZOLE 1% 15 GM TUBE TP SCH ×6 (09:00→21:38)
[2021-11-01] MEDS: PHENOBARBITAL 30 MG TABLET GT SCH ×2 (09:14→18:15)
[2021-11-01 16:01] VITALS: BP 99/36
[2021-11-01] MEDS: CEFTAZIDIME/AVIBACTAM 0.94 GM in IV NS 0.9% 100 ML IV SCH (16:03)
[2021-11-01] MEDS: NS 0.9% IV SCH (17:09)
[2021-11-01] MEDS: DAPTOMYCIN IV SCH (17:09)
[2021-11-01] MEDS: DAKINS QUARTER STRENGTH (0.125%) 480 ML BOTTLE TOP SCH (18:45)
[2021-11-01] MEDS: NYSTATIN TOP POWDER 15 GM BOTTLE TP SCH ×2 (18:46→21:34)
--- NOTE | 2021-11-01 19:45 | NUR ---
RN CLOSING NOTES Patient in bed, no shortness of breath, respirations even and unlabored, remained afebrile during shift, no bleeding noted, no unusual bruising, no hematuria, no blood in stool, no bleeding gums. Gastric tube remained patent, intact and in place during shift, placement verified by auscultation and aspiration of gastric residuals. Patient on tube feeding Nephro at 40cc/hr, tolerating well, no residual noted, no nausea, no vomiting, abdominal bowel sounds present in all quadrants, no grimacing when abdomen palpated. All due medications given via gtube per MD order, tolerating well. Insulin given per sliding scale as needed per MD order no s/s of hypo or hyperglycemia, no change in level of consciousness, no tremors, tolerating well. No episode of seizure during shift. Daughter has concerns regarding HD center and transportation, charge nurse Andrzej and charge nurse Ashely made aware and stated it concerns will be written down in the endorsement book for social media manager to follow up. All needs anticipated, kept clean and dry, aspiration precautions observed at all times, seizure precautions rendered, safety precautions in place, frequent visual checks done, brakes locked, padded side rails up X 2, call light left within reach, will endorse to next shift for continuity of care.
[2021-11-01 20:00] VITALS: BP 112/45
[2021-11-01] MEDS: LATANOPROST EYE DROP 0.005% 2.5 ML BOTTLE OP SCH (21:34)
[2021-11-02] VITALS: BP 107/41
[2021-11-02] MEDS: METOCLOPRAMIDE HCL 10 MG/2 ML VIAL IV SCH ×3 (00:20→17:45)
[2021-11-02] MEDS: BLOOD SUGAR DIAGNOSTIC 1 EACH STRIP IN SCH ×5 (00:20→23:57)
[2021-11-02] MEDS: VANCOMYCIN HCL 125 MG/2.5 ML ORAL.SUSP GT SCH ×4 (00:21→18:10)
[2021-11-02] MEDS ORDERED: ACETAMINOPHEN 650 MG/20.3 ML UDC ONE (00:53)
[2021-11-02] MEDS: ACETAMINOPHEN 650 MG/20.3 ML UDC GT PRN (00:54)
--- NOTE | 2021-11-02 00:55 | NUR ---
RN NOTE PATIENT NOTED WITH TEMP OF 99.6. TYLENOL 650 MG GIVEN VIA GTUBE. WILL CONTINUE TO MONITOR PATIENT
[2021-11-02] MEDS: IPRATROPIUM NEB FS 0.5 MG/2.5 ML AMPUL.NEB NEB SCH ×4 (01:44→20:18)
[2021-11-02 04:00] VITALS: BP 113/43
[2021-11-02] MEDS: PHENYTOIN SODIUM IV 100 MG/2ML VIAL IV SCH ×3 (05:40→21:12)
--- NOTE | 2021-11-02 07:24 | NUR ---
RN CLOSING NOTE PATIENT NON-VERBAL, PT SLEEPING, APPEARS COMFORTABLE, NO S/S OF PAIN NOTED. PT ON MECHANICAL VENT, NO S/S OF DISTRESS OR SOB NOTED, BREATHING EVEN AND UNLABORED, SPO2: 100%. XIOMARA PICC LINE INTACT AND FLUSHING WELL. GTUBE FEEDING RUNNING NEPRO @ 40 ML/HR, PT TOLERATING WELL. PATIENT TURNED Q2H, WOUND CARE AND HYGIENE PERFORMED THROUGHOUT SHIFT. WOUND PICTURES TAKEN AND PLACED IN CHART. NO SIGNIFICANT CHANGES THROUGHOUT SHIFT, MEDICATIONS GIVEN ORDERED. SAFETY MEASURES IN PLACE: CALL LIGHT WITHIN REACH, SIDE RAILS UP X 3, BED LOCKED IN LOW POSITION, BED ALARM ON. ENDORSED TO DAY SHIFT NURSE FOR CONTINUITY OF CARE
--- NOTE | 2021-11-02 07:51 | NUR ---
RN OPENING NOTE Patient in bed, asleep; non-verbal. On mechanical ventilator, tolerating settings well. No SOB or s/s of distress noted. IV access on XIOMARA PICC line, intact and patent. GT in place running Nepro at 40 ml/hr. RCW permacath present. Safety precautions in place: bed in low, locked position; siderails up x 2; call light within reach. Will continue to monitor.
[2021-11-02 08:43] VITALS: BP 107/43
[2021-11-02] MEDS ORDERED: KEY,NONCONTROL,TO KEEP IN PYXI 1 EA MC ONE ×2 (09:18→17:48)
[2021-11-02] MEDS: ASCORBIC ACID 500 MG TABLET GT SCH (09:22)
[2021-11-02] MEDS: CHLORHEXIDINE GLUCONATE 15 ML UDC MM SCH ×2 (09:22→17:46)
[2021-11-02] MEDS: PROSOURCE / PROSTAT (PYXIS) 30 ML UDC GT SCH ×2 (09:22→17:47)
[2021-11-02] MEDS: ARGININE/GLUTAMINE/CALCIUM BMB 1 EACH POWD.PACK GT SCH ×2 (09:22→17:47)
[2021-11-02] MEDS: PHENOBARBITAL 30 MG TABLET GT SCH ×2 (09:22→17:49)
[2021-11-02] MEDS: DORZOLAMIDE OPTH 2% 10 ML BOTTLE OP SCH ×2 (09:25→17:46)
[2021-11-02] MEDS: PANTOPRAZOLE 40 MG/PACK PACK GT SCH (09:26)
[2021-11-02] MEDS: CHOLESTYRAMINE/ASPARTAME 4 G/PKT PACKET GT SCH ×2 (09:27→21:09)
[2021-11-02] MEDS: SEVELAMER CARBONATE 800 MG POWD.PACK GT SCH ×3 (09:27→18:10)
[2021-11-02] MEDS: CLOTRIMAZOLE 1% 15 GM TUBE TP SCH ×6 (09:41→21:11)
[2021-11-02] MEDS: NYSTATIN TOP POWDER 15 GM BOTTLE TP SCH ×2 (09:41→21:10)
[2021-11-02] MEDS: MINERAL OIL/PETROLATUM,WHITE 120 GM JAR TP SCH ×2 (09:41→21:11)
[2021-11-02] MEDS: Z GUARD REMEDY 4 OZ OINT TP SCH (09:42)
[2021-11-02] MEDS: INSULIN REGULAR, HUMAN 100 UNIT/ML 3 ML VIAL SQ PRN (11:55)
--- NOTE | 2021-11-02 12:00 | NUR ---
RN NOTE Patient BS is 131, gave 2 units of Insulin per sliding scale.
[2021-11-02 15:58] VITALS: BP 116/52
--- NOTE | 2021-11-02 16:47 | NUR ---
SS note: VOLODYMYR received notice from charge nurse stating that pt.s daughter, Charlotte [phone] has concern. VOLODYMYR called Charlotte and she stated pt. came back from HD with wet gown possibly pt. was running a fever per Charlotte. VOLODYMYR called [facility] and spoke to nurse Elvira who confirmed that pt. temperature was within normal range on Tuesday. Charlotte stated she was not allowed to visit pt. in [facility] to car for pt. VOLODYMYR asked Elvira and Elvira stated a MD order from Dr. Robbins would be needed that it is a necessity. Elvira stated if [facility] wants to send extra gown for pt. to be changed at [facility] that would be a possibility. Charlotte is agreeable. SW notified MS3 nurse who will endorse it. Jamie stated she appreciated SW following up.
--- NOTE | 2021-11-02 18:00 | NUR ---
RN NOTE Patient BS is 120, no Insulin coverage needed.
--- NOTE | 2021-11-02 18:53 | NUR ---
RN CLOSING NOTE Patient in bed, asleep; non-verbal. On mechanical ventilator, tolerating settings well. No SOB or s/s of distress noted. IV access on XIOMARA PICC line, intact and patent. GT in place running Nepro at 40 ml/hr. RCW permacath present. Due meds given. Patient kept clean and dry. Safety precautions maintained: bed in low, locked position; siderails up x 2; call light within reach. Will endorse to tobacco warehouse manager nurse for OTIS.
--- NOTE | 2021-11-02 19:30 | NUR ---
RN OPENING NOTE RECEIVED PATIENT RESTING IN BED, EASILY AROUSABLE, NON VERBAL. PT ON MECHANICAL VENT, NO S/S OF DISTRESS OR SOB NOTED, BREATHING EVEN AND UNLABORED, SPO2: 100%. XIOMARA PICC LINE INTACT AND FLUSHING WELL. GTUBE FEEDING RUNNING NEPRO @ 40 ML/HR, PT TOLERATING WELL. SAFETY PRECAUTIONS IN PLACE. BED IN LOWEST LOCKED POSITION, HOB ELEVATED, SIDE RAILS UP X2, AND CALL LIGHT AND TABLE WITHIN REACH. WILL CONTINUE WITH PLAN OF CARE.
[2021-11-02 20:00] VITALS: BP 125/44
[2021-11-02] MEDS: LATANOPROST EYE DROP 0.005% 2.5 ML BOTTLE OP SCH (21:13)
[2021-11-03] MEDS: VANCOMYCIN HCL 125 MG/2.5 ML ORAL.SUSP GT SCH ×5 (00:03→23:42)
[2021-11-03] MEDS: METOCLOPRAMIDE HCL 10 MG/2 ML VIAL IV SCH ×3 (00:03→19:08)
[2021-11-03] MEDS: IPRATROPIUM NEB FS 0.5 MG/2.5 ML AMPUL.NEB NEB SCH ×3 (01:58→20:22)
[2021-11-03] MEDS: PHENYTOIN SODIUM IV 100 MG/2ML VIAL IV SCH ×3 (05:10→22:17)
[2021-11-03] MEDS: BLOOD SUGAR DIAGNOSTIC 1 EACH STRIP IN SCH ×3 (05:50→18:00)
[2021-11-03] MEDS: NEPRO 1,000 ML BOTTLE GT PRN (06:31)
--- NOTE | 2021-11-03 06:55 | NUR ---
RN CLOSING NOTE PATIENT RESTING IN BED, EASILY AROUSABLE, NON VERBAL. PT ON MECHANICAL VENT, NO S/S OF DISTRESS OR SOB NOTED, BREATHING EVEN AND UNLABORED, SPO2: 100%. XIOMARA PICC LINE INTACT AND FLUSHING WELL. GTUBE FEEDING RUNNING NEPRO @ 40 ML/HR, PT TOLERATING WELL. ALL NEEDS MET AT THIS TIME. SAFETY PRECAUTIONS IN PLACE AT ALL TIMES. BED IN LOWEST LOCKED POSITION, HOB ELEVATED, SIDE RAILS UP X2, AND CALL LIGHT AND TABLE WITHIN REACH. WILL ENDORSE TO ONCOMING NURSE FOR OTIS.
--- NOTE | 2021-11-03 08:23 | NUR ---
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 WOUND HAS FOUL ODOR, NECROTIC TISSUE AND UNDERMINING. BONE IS EXPOSED. WOUND TREATMENT ORDERS UPDATED. DISCUSSED WOUND CARE AND SKIN PROTECTION RECOMMENDATIONS WITH NURSING STAFF AND VEST BASTER. RECOMMEND SURGICAL CONSULT AND POSSIBLE SURGICAL DEBRIDEMENT. PT IS ON ENRICO ISOFLEX LOW AIRLOSS BED. IN AGREEMENT WITH PLAN OF CARE. Addendum: 11/03/21 at 0827 by BYRON LAZO WNDNU Amended: Links added.
[2021-11-03 08:43] VITALS: BP 96/40
[2021-11-03] MEDS ORDERED: DAKINS QUARTER STRENGTH (0.125%) 480 ML BOTTLE TOP SCH (09:00)
[2021-11-03] MEDS ORDERED: KEY,NONCONTROL,TO KEEP IN PYXI 1 EA MC ONE ×2 (09:47→16:57)
[2021-11-03] MEDS: PHENOBARBITAL 30 MG TABLET GT SCH ×2 (09:51→19:07)
[2021-11-03] MEDS: ARGININE/GLUTAMINE/CALCIUM BMB 1 EACH POWD.PACK GT SCH ×2 (09:51→19:07)
[2021-11-03] MEDS: CHOLESTYRAMINE/ASPARTAME 4 G/PKT PACKET GT SCH ×2 (09:51→21:18)
[2021-11-03] MEDS: PANTOPRAZOLE 40 MG/PACK PACK GT SCH (09:51)
[2021-11-03] MEDS: ASCORBIC ACID 500 MG TABLET GT SCH (09:51)
[2021-11-03] MEDS: PROSOURCE / PROSTAT (PYXIS) 30 ML UDC GT SCH ×2 (09:51→19:07)
[2021-11-03] MEDS: SEVELAMER CARBONATE 800 MG POWD.PACK GT SCH ×3 (09:52→19:08)
[2021-11-03] MEDS: CHLORHEXIDINE GLUCONATE 15 ML UDC MM SCH ×2 (09:53→19:08)
[2021-11-03] MEDS: MINERAL OIL/PETROLATUM,WHITE 120 GM JAR TP SCH ×2 (09:53→21:19)
[2021-11-03] MEDS: CLOTRIMAZOLE 1% 15 GM TUBE TP SCH ×6 (09:53→21:35)
[2021-11-03] MEDS: DORZOLAMIDE OPTH 2% 10 ML BOTTLE OP SCH ×2 (09:53→17:00)
[2021-11-03] MEDS: NYSTATIN TOP POWDER 15 GM BOTTLE TP SCH ×2 (09:53→21:20)
[2021-11-03] MEDS: Z GUARD REMEDY 4 OZ OINT TP SCH (09:54)
[2021-11-03 10:00] VITALS: BP 96/40
[2021-11-03] MEDS: INSULIN REGULAR, HUMAN 100 UNIT/ML 3 ML VIAL SQ PRN ×2 (13:08→19:40)
--- NOTE | 2021-11-03 13:44 | NUR ---
Pt's nurse said her daughter would like to speak with the doctor. Informed Dr Prescott and gave him the daughter's phone number. Also relayed the pt's son's note to Dr Prescott yesterday.
--- NOTE | 2021-11-03 19:48 | NUR ---
RN CLOSING NOTE PATIENT RESTING IN BED, EASILY AROUSABLE, NON VERBAL. PT ON MECHANICAL VENT, NO S/S OF DISTRESS OR SOB NOTED, BREATHING EVEN AND UNLABORED, SPO2: 100%. XIOMARA PICC LINE INTACT AND FLUSHING WELL. S/P HEMODIALYSIS. WOUND CARE DONE. DUE MEDS GIVEN. GTUBE FEEDING RUNNING NEPRO @ 40 ML/HR, PT TOLERATING WELL. SAFETY PRECAUTIONS IN PLACE. BED IN LOWEST LOCKED POSITION, HOB ELEVATED, SIDE RAILS UP X2, AND CALL LIGHT AND TABLE WITHIN REACH. WILL ENDORSE TO NEXT SHIFT FOR OTIS.
[2021-11-03 20:00] VITALS: BP 94/40
[2021-11-03] MEDS: LATANOPROST EYE DROP 0.005% 2.5 ML BOTTLE OP SCH (21:22)
[2021-11-03] MEDS ORDERED: PHENYTOIN SODIUM IV 100 MG/2ML VIAL ONE (21:56)
[2021-11-03 22:00] VITALS: BP 96/40
[2021-11-04] VITALS: BP 107/44
[2021-11-04] MEDS: BLOOD SUGAR DIAGNOSTIC 1 EACH STRIP IN SCH ×5 (00:04→23:53)
[2021-11-04] MEDS: METOCLOPRAMIDE HCL 10 MG/2 ML VIAL IV SCH ×4 (00:07→23:46)
[2021-11-04] MEDS: IPRATROPIUM NEB FS 0.5 MG/2.5 ML AMPUL.NEB NEB SCH ×4 (00:54→19:30)
[2021-11-04 04:00] VITALS: BP 97/38
[2021-11-04] MEDS ORDERED: PHENYTOIN SODIUM IV 100 MG/2ML VIAL ONE (05:07)
[2021-11-04] MEDS: PHENYTOIN SODIUM IV 100 MG/2ML VIAL IV SCH ×3 (05:09→21:19)
[2021-11-04] MEDS: VANCOMYCIN HCL 125 MG/2.5 ML ORAL.SUSP GT SCH ×4 (05:45→23:50)
--- NOTE | 2021-11-04 07:00 | NUR ---
RN NOTE CORRECTION OF CLOSING CHARTING ON 10/28/2021 RN CLOSING NOTES PATIENT AWAKE IN BED RESTING, OBTUNDED. NO S/S OF PAIN NOTED AT THIS TIME. ON VENT, NO DISTRESS OR SHORTNESS OF BREATH NOTED. IV ACCESS XIOMAAR PICC LINE, INTACT, PATENT AND FLUSHING WELL. FALL AND SAFETY MEASURES IN PLACE, BED ALARM ON, BED IN LOW AND LOCK POSITION, CALL LIGHT AND TABLE WITHIN EASY REACH, SIDE RAILS UP X2. WILL ENDORSE TO NEXT SHIFT FOR CONTINUITY OF CARE.
--- NOTE | 2021-11-04 07:00 | NUR ---
ending notes: ontuneded will open eyes when nurse talks loud 1 yellow mushy BM this 12 hours. highest temp orally 99.8 called the daughter this AM and undated her Asp precautions maintained
--- NOTE | 2021-11-04 07:18 | NUR ---
MS RN OPENING NOTES RECEIVE PATIENT AWAKE IN BED RESTING, OBTUNDED. NO S/S OF PAIN NOTED AT THIS TIME. ON VENT, NO DISTRESS OR SHORTNESS OF BREATH NOTED. IV ACCESS XIOMARA PICC LINE, INTACT, PATENT AND FLUSHING WELL. FALL AND SAFETY MEASURES IN PLACE, BED ALARM ON, BED IN LOW AND LOCK POSITION, CALL LIGHT AND TABLE WITHIN EASY REACH, SIDE RAILS UP X2. WILL CONTINUE TO MONITOR PATIENT.
[2021-11-04 08:00] VITALS: BP 89/40
[2021-11-04] MEDS: CHOLESTYRAMINE/ASPARTAME 4 G/PKT PACKET GT SCH ×2 (08:48→21:19)
[2021-11-04] MEDS: SEVELAMER CARBONATE 800 MG POWD.PACK GT SCH ×3 (08:48→18:16)
[2021-11-04] MEDS: ASCORBIC ACID 500 MG TABLET GT SCH (08:50)
[2021-11-04] MEDS: CHLORHEXIDINE GLUCONATE 15 ML UDC MM SCH ×2 (08:50→18:15)
[2021-11-04] MEDS: PANTOPRAZOLE 40 MG/PACK PACK GT SCH (08:51)
[2021-11-04] MEDS: DORZOLAMIDE OPTH 2% 10 ML BOTTLE OP SCH ×2 (08:52→17:00)
[2021-11-04] MEDS: PHENOBARBITAL 30 MG TABLET GT SCH ×2 (08:57→18:20)
[2021-11-04] MEDS: CLOTRIMAZOLE 1% 15 GM TUBE TP SCH ×6 (09:00→21:33)
[2021-11-04] MEDS: Z GUARD REMEDY 4 OZ OINT TP SCH (09:00)
[2021-11-04] MEDS: DAKINS HALF STRENGTH (0.25%) 480 ML BOTTLE TOP SCH (09:02)
[2021-11-04] MEDS: ARGININE/GLUTAMINE/CALCIUM BMB 1 EACH POWD.PACK GT SCH ×2 (09:02→18:13)
[2021-11-04] MEDS: PROSOURCE / PROSTAT (PYXIS) 30 ML UDC GT SCH ×2 (09:02→18:13)
[2021-11-04] MEDS: MINERAL OIL/PETROLATUM,WHITE 120 GM JAR TP SCH ×2 (09:03→21:23)
[2021-11-04] MEDS: NYSTATIN TOP POWDER 15 GM BOTTLE TP SCH ×2 (09:06→21:24)
[2021-11-04] MEDS: MIDODRINE HCL (5MG) 5 MG TABLET GT PRN (09:32)
--- NOTE | 2021-11-04 13:25 | NUR ---
MS RN NOTE SPOKE WITH FRUIT AND VEGETABLE CLASSER AND DISCUSSED RATE OF G-TUBE FEEDING. PATIENT CURRENTLY AT 40ML/HR DESPITE DIETARY AND NEPHRO RECOMMENDATION, BASED ON THE CORRESPONDENCE WITH FAMILY AND DISCIPLINES, THEY WANT TO KEEP IT AT THAT. WILL TALK TO PATIENT'S DAUGHTER TODAY WHEN SHE VISITS, IF THEY CHANGED THEIR MIND. WILL CONTINUE TO MONITOR PATIENT.
[2021-11-04] MEDS: ACETAMINOPHEN 650 MG/20.3 ML UDC GT PRN (15:07)
--- NOTE | 2021-11-04 15:23 | NUR ---
SS Note: SW received call from pt.'s son, Jake stating that the pt. was brought back from HD on 11/03/2021 until 7 pm when the pt.'s HD chair time ends at 4:45 pm. VOLODYMYR called an spoke to Fartun to make a complaint. Fartun offered to change transportation company and VOLODYMYR accepted. Per F[employer] they will call me back when they have alternate transportation company stating for tomorrow HD trip. Noted. VOLODYMYR called the pt.'s son Jake and notified him of change of transport company and he is agreeable. Art thanked VOLODYMYR. SW will remain available as needed.
[2021-11-04] MEDS ORDERED: D5W IV ONE (15:35)
[2021-11-04 16:00] VITALS: BP 110/43
--- NOTE | 2021-11-04 18:00 | NUR ---
MS RN NOTE SPOKE WITH DAUGHTER AND APPARENTLY, SHE AND HER BROTHER HAVE NOW AGREED TO INCREASE THE TUBE FEEDING TO 45 ML/HR PREVIOUSLY RECOMMENDED. SHE SAID THAT THE MD AND THE DIETITIAN ALREADY SPOKE WITH HER BROTHER AND THAT THEY HAVE DECIDED TO GO WITH THE INCREASE IN THE FEEDING RATE RECOMMENDED. TUBE FEEDING ADJUSTED RECOMMENDED. WILL ENDORSE ACCORDINGLY. WILL CONTINUE TO MONITOR PATIENT.
--- NOTE | 2021-11-04 19:10 | NUR ---
MS RN CLOSING NOTES PATIENT AWAKE IN BED RESTING, OBTUNDED. NO S/S OF PAIN NOTED AT THIS TIME. ON VENT, NO DISTRESS OR SHORTNESS OF BREATH NOTED. LATEST TEMPERATURE IS WNL. IV ACCESS XIOMARA PICC LINE, INTACT, PATENT AND FLUSHING WELL. FALL AND SAFETY MEASURES IN PLACE, BED ALARM ON, BED IN LOW AND LOCK POSITION, CALL LIGHT AND TABLE WITHIN EASY REACH, SIDE RAILS UP X2. CALL LIGHT WITHIN REACH. WILL ENDORSE PATIENT FOR CONTINUITY OF CARE.
[2021-11-04 20:00] VITALS: BP 107/48
[2021-11-04] MEDS: LATANOPROST EYE DROP 0.005% 2.5 ML BOTTLE OP SCH (21:23)
[2021-11-04 22:00] VITALS: BP 107/48
[2021-11-05] MEDS: IPRATROPIUM NEB FS 0.5 MG/2.5 ML AMPUL.NEB NEB SCH ×4 (01:00→19:42)
--- NOTE | 2021-11-05 04:05 | NUR ---
ENDING NOTES: DAUGHTER WHEN HERE IS GREAT ABOUT HELPING TO CARE FOR HER MOTHER. PATIENT IS OBTUNDED WILL OPEN EYES OCCASSIONALLY NON VERBAL LARGE SACRUM WOUND DRESSING CHANGES ORDERED. PEGS FEEDING INFUSING 45 ML HOUR NO RESIDUALS ASP PRECAUTIONS MAINTAINED THIS 12 HOURS
[2021-11-05] MEDS: PHENYTOIN SODIUM IV 100 MG/2ML VIAL IV SCH ×3 (05:15→21:17)
[2021-11-05] MEDS: VANCOMYCIN HCL 125 MG/2.5 ML ORAL.SUSP GT SCH ×4 (05:36→23:15)
[2021-11-05] MEDS: BLOOD SUGAR DIAGNOSTIC 1 EACH STRIP IN SCH ×4 (05:58→23:15)
[2021-11-05 08:00] VITALS: BP 91/40
--- NOTE | 2021-11-05 08:20 | NUR ---
ms rn received on bed, awake,non verbal patient, vent dependent,feeding going on,tolerated well, repositioned for comfort,all needs attended.
[2021-11-05] MEDS: CLOTRIMAZOLE 1% 15 GM TUBE TP SCH ×6 (09:00→21:17)
[2021-11-05] MEDS: DORZOLAMIDE OPTH 2% 10 ML BOTTLE OP SCH ×2 (09:00→18:44)
--- NOTE | 2021-11-05 10:10 | NUR ---
ms francis due meds given,tolerated well via g tube.
[2021-11-05] MEDS: CHLORHEXIDINE GLUCONATE 15 ML UDC MM SCH ×2 (11:02→18:13)
[2021-11-05] MEDS: ASCORBIC ACID 500 MG TABLET GT SCH (11:02)
[2021-11-05] MEDS: PANTOPRAZOLE 40 MG/PACK PACK GT SCH (11:03)
[2021-11-05] MEDS: CHOLESTYRAMINE/ASPARTAME 4 G/PKT PACKET GT SCH ×2 (11:03→21:16)
[2021-11-05] MEDS: SEVELAMER CARBONATE 800 MG POWD.PACK GT SCH ×3 (11:03→18:13)
[2021-11-05] MEDS: ARGININE/GLUTAMINE/CALCIUM BMB 1 EACH POWD.PACK GT SCH ×2 (11:22→18:12)
[2021-11-05] MEDS: PROSOURCE / PROSTAT (PYXIS) 30 ML UDC GT SCH ×2 (11:22→18:13)
[2021-11-05] MEDS: METOCLOPRAMIDE HCL 10 MG/2 ML VIAL IV SCH ×2 (11:22→18:13)
[2021-11-05] MEDS: PHENOBARBITAL 30 MG TABLET GT SCH ×2 (11:26→18:44)
--- NOTE | 2021-11-05 12:30 | NUR ---
ms francis bs - 151- coverage not given patient will be going to hd soon and pt will be disconnected to feeding,no s/s of hyoperkalemia.
[2021-11-05] MEDS: ALBUMIN 25% 25 GM in PREMIX 1 EA IV PRN (12:52)
--- NOTE | 2021-11-05 13:00 | NUR ---
s rn patient went to dialysis all needs attended.
[2021-11-05 16:00] VITALS: BP 110/51
--- NOTE | 2021-11-05 17:00 | NUR ---
ms rn patient came back from hd, hd was not performed due to low b/p.
[2021-11-05] MEDS: DAKINS HALF STRENGTH (0.25%) 480 ML BOTTLE TOP SCH (18:41)
[2021-11-05] MEDS: MINERAL OIL/PETROLATUM,WHITE 120 GM JAR TP SCH ×2 (18:41→21:17)
[2021-11-05] MEDS: NYSTATIN TOP POWDER 15 GM BOTTLE TP SCH ×2 (18:43→21:18)
[2021-11-05] MEDS: Z GUARD REMEDY 4 OZ OINT TP SCH (18:44)
--- NOTE | 2021-11-05 19:01 | NUR ---
RN NOTE SPOKE WITH DIETITIAN TODAY AND UPDATED RECOMMENDATIONS APPROVED BY DR. BEACH. ENDORSED ACCORDINGLY.
--- NOTE | 2021-11-05 19:12 | NUR ---
ms rn on bed, no distress noted.
--- NOTE | 2021-11-05 19:40 | NUR ---
RN NOTE RECEIVED PATIENT RESTING IN BED. DAUGHTER AT BEDSIDE. PATIENT OBTUNDED - CONTINUES ON MECHANICAL VENT WITH PATIENT TOLERATING SETTINGS WELL. CONTINUES ON TF JEVITY @ 45ML/HR. NO RESIDUAL NOTED. LEFT UPPER ARM PICC LINE IN PLACE AND SALINE LOCKED. STAGE 4 SACRUM WOUND DRESSING C/D/I. CALL LIGHT WITHIN REACH. ASPIRATION, FALL AND SAFETY PRECAUTIONS MAINTAINED. WILL CONTINUE TO MONITOR.
--- NOTE | 2021-11-05 20:48 | NUR ---
RT UNABLE TO SCAN BRACELET OR MEDICATION DUE TO COMPUTER MALFUNCTION. PATIENT MR# AND MEDICATION ENTERED MANUALLY.
[2021-11-05] MEDS: LATANOPROST EYE DROP 0.005% 2.5 ML BOTTLE OP SCH (21:18)
[2021-11-05] MEDS ORDERED: ACETAMINOPHEN 650 MG/20.3 ML UDC ONE (21:25)
[2021-11-05] MEDS: ACETAMINOPHEN 650 MG/20.3 ML UDC GT PRN (21:29)
[2021-11-05 22:00] VITALS: BP 114/52
[2021-11-06] MEDS: METOCLOPRAMIDE HCL 10 MG/2 ML VIAL IV SCH ×4 (00:11→23:36)
[2021-11-06] MEDS: IPRATROPIUM NEB FS 0.5 MG/2.5 ML AMPUL.NEB NEB SCH ×4 (01:48→20:32)
[2021-11-06] MEDS: PHENYTOIN SODIUM IV 100 MG/2ML VIAL IV SCH ×3 (04:46→20:14)
[2021-11-06] MEDS: BLOOD SUGAR DIAGNOSTIC 1 EACH STRIP IN SCH ×4 (05:39→23:39)
[2021-11-06] MEDS: VANCOMYCIN HCL 125 MG/2.5 ML ORAL.SUSP GT SCH ×4 (05:39→23:36)
[2021-11-06] MEDS: INSULIN REGULAR, HUMAN 100 UNIT/ML 3 ML VIAL SQ PRN ×3 (05:51→23:42)
--- NOTE | 2021-11-06 06:20 | NUR ---
RN NOTE PATIENT WITH INCREASED HR BETWEEN 90-110. SUCTIONED AND TEMP CHECKED. PATIENT AFEBRILE. WILL ADMINISTER PRN TYLENOL FOR PAIN.
[2021-11-06] MEDS: ACETAMINOPHEN 650 MG/20.3 ML UDC GT PRN (06:34)
--- NOTE | 2021-11-06 06:40 | NUR ---
RN NOTE PATENT RESTING IN BED. NO APPARENT DISTRESS NOTED. NO RESPIRATORY DISTRESS NOTED. CONTINUES ON GT FEED JEVITY AT 45ML/HR X 20HRS. WILL ENDORSE PLAN OF CARE TO ONCOMING SHIFT.
[2021-11-06 08:00] VITALS: BP 87/38
[2021-11-06] MEDS: SEVELAMER CARBONATE 800 MG POWD.PACK GT SCH ×3 (08:35→17:16)
[2021-11-06] MEDS: CHLORHEXIDINE GLUCONATE 15 ML UDC MM SCH ×2 (08:35→18:07)
[2021-11-06] MEDS: PANTOPRAZOLE 40 MG/PACK PACK GT SCH (08:35)
[2021-11-06] MEDS: CHOLESTYRAMINE/ASPARTAME 4 G/PKT PACKET GT SCH ×2 (08:36→20:14)
[2021-11-06] MEDS: PHENOBARBITAL 30 MG TABLET GT SCH ×2 (08:36→17:16)
[2021-11-06] MEDS: ASCORBIC ACID 500 MG TABLET GT SCH (08:36)
[2021-11-06] MEDS: PROSOURCE / PROSTAT (PYXIS) 30 ML UDC GT SCH ×3 (08:37→17:00)
[2021-11-06] MEDS: ARGININE/GLUTAMINE/CALCIUM BMB 1 EACH POWD.PACK GT SCH (08:37)
[2021-11-06] MEDS: DORZOLAMIDE OPTH 2% 10 ML BOTTLE OP SCH ×2 (09:37→17:16)
[2021-11-06] MEDS: MIDODRINE HCL (5MG) 5 MG TABLET GT PRN ×2 (09:37→09:39)
[2021-11-06] MEDS: DAKINS HALF STRENGTH (0.25%) 480 ML BOTTLE TOP SCH (10:09)
[2021-11-06] MEDS: MINERAL OIL/PETROLATUM,WHITE 120 GM JAR TP SCH ×2 (10:09→20:15)
[2021-11-06] MEDS: NYSTATIN TOP POWDER 15 GM BOTTLE TP SCH ×2 (10:10→20:16)
[2021-11-06] MEDS: CLOTRIMAZOLE 1% 15 GM TUBE TP SCH ×6 (10:10→20:16)
[2021-11-06 11:21] LABS: BASOPHILS # (AUTO) 0.1 K/uL (0.0-0.2); MONOCYTES # (AUTO) 3.1 K/uL (0.1-1.30)
[2021-11-06 11:30] LABS: CALCIUM, SERUM 9.9 mg/dL (8.5-10.1); CARBON DIOXIDE 18 mmol/L (21-32); CHLORIDE 93 mmol/L (98-107); CREATININE 2.7 mg/dL (0.6-1.3); GLUCOSE 333 mg/dL (74-106); POTASSIUM 4.6 mmol/L (3.5-5.1); SODIUM SERUM 129 mmol/L (136-145)
--- NOTE | 2021-11-06 11:33 | NUR ---
Received a call from laboratory spoke to Carole, regarding patients BUN which resulted to 148. Patient seen comfortably lying in bed, no apparent distress noted, afebrile, no s/s of fluid overload, no shortness of breath, patient was not able to complete her dialysis treatment yesterday hospitalist paged waiting for call back.
--- NOTE | 2021-11-06 11:33 | NUR ---
Received a call from laboratory spoke to Carole, regarding patients WBC which resulted to 46.6. Patient seen comfortably lying in bed, no apparent distress noted, afebrile, hospitalist paged waiting for call back. Addendum: 11/06/21 at 1936 by TADEO GALICIA RN WRONG DOCUMENTATION, DISREGARD PLEASE
[2021-11-06 11:36] LABS: UREA NITROGEN, BLOOD 148 mg/dL (7-18)
[2021-11-06 11:38] LABS: BASOPHILS % (AUTO) 0.1 % (0.0-2.0); HEMATOCRIT 27 % (33-45); HEMOGLOBIN 8.3 g/dL (11.5-14.8); LYMPHOCYTES # (AUTO) 1.3 K/uL (0.8-4.8); LYMPHOCYTES % (AUTO) 2.8 % (20.0-44.0); MEAN CORPUSCULAR HGB CONC 31 g/dl (31.0-36.0); MEAN CORPUSCULAR VOLUME 102 fL (82-100); MONOCYTES % (AUTO) 6.6 % (2.0-12.0); NEUTROPHILS # (AUTO) 42.1 K/uL (1.8-8.9); NEUTROPHILS % (AUTO) 90.5 % (43.0-81.0); PLATELET COUNT (AUTO) 501 K/uL (150-450); RED BLOOD CELL COUNT(AUTO) 2.66 MIL/uL (4.0-5.2)
--- NOTE | 2021-11-06 12:12 | NUR ---
Received a call from laboratory spoke to Holley, regarding patients WBC which resulted to 46.6. Patient seen comfortably lying in bed, no apparent distress noted, afebrile, hospitalist paged waiting for call back.
--- NOTE | 2021-11-06 12:13 | NUR ---
Received a call back from hospitalist, and was made aware that BUN was 148 today, patient was not able to complete dialysis yesterday, already left a call to [facility] ([facility], phone: [phone]) regarding the abnormal lab results, no s/s of fluid overload, no shortness of breath, respirations even and unlabored. Also informed that patient's WBC was 46.6 today, afebrile at this time, already called infectious disease MD (Dr. Lorenz, phone: [phone]), waiting for call back. Per hospitalist, no new orders from him at this time and to follow up with dialysis center and infectious disease MD, patient seen in bed lying comfortably, no apparent distress noted, daughter Charlotte made aware of the situation, verbalized understanding and gratitude.
[2021-11-06 12:21] LABS: NEUTROPHILS % (MANUAL) 85 (42-76); WHITE BLOOD COUNT (AUTO) 46.6 K/uL (4.3-11.0)
[2021-11-06 12:22] LABS: BAND % (MANUAL) 8 % (0.0-5.0); LYMPHOCYTES % (MANUAL) 3 % (16-48); METAMYELOCYTES % 1 % (0-0); MONOCYTES % (MANUAL) 2 % (0-11.0); MYELOCYTES % 1 % (0-0)
--- NOTE | 2021-11-06 12:30 | NUR ---
Received a call back from [facility], spoke to Joseluis HERRING, relayed patient's BUN which resulted to 148 and he said that he is not patient's regular nurse but no need for extra dialysis and will just follow patient's normal dialysis schedule treatment. made aware of the situation, and acknowledged. Daughter Charlotte informed, verbalized gratitude and understanding.
[2021-11-06] MEDS: Z GUARD REMEDY 4 OZ OINT TP SCH (14:16)
--- NOTE | 2021-11-06 14:25 | NUR ---
Received a call from Dr. Lorenz's office, spoke to Dr. Drummond ( covering for Dr. Lorenz today), WBC results (46.6) for today relayed, Dr. Drummond stated telephone orders as follows: 1. STAT blood culture, 2. STAT urinalysis and urine culture 3. STAT wound culture 4. STAT chest xray 5. STAT respiratory culture 6. Daptomycin pharmacy to dose and 7. Meropenem pharmacy to dose. Orders noted and carried out, patient lying comfortably in bed, no apparent distress noted, afebrile. made aware of orders and acknowledged, Daughter Charlotte at bedside and made aware of the situation.
[2021-11-06] MEDS ORDERED: [UNRECOGNIZED DRUG - REMARK] IV PRN (14:30)
[2021-11-06] MEDS ORDERED: [UNRECOGNIZED DRUG - REMARK] IV PRN (14:30)
[2021-11-06 16:00] VITALS: BP 88/45
[2021-11-06] MEDS: MEROPENEM 500 MG in IV NS 0.9% 50 ML IV SCH (17:16)
--- NOTE | 2021-11-06 17:35 | NUR ---
RN CLOSING NOTES Patient in bed, no shortness of breath, breathing even and unlabored, no s/s of fluid overload, afebrile, no bleeding noted, no unusual bruising, no hematuria, no blood in stool, no bleeding gums. Gastric tube remained patent, intact and in place during shift, placement verified by auscultation and aspiration of gastric residuals. All due medications given via gtube per MD order, tolerating well. No s/s of hypo or hyperglycemia, no change in level of consciousness, no tremors, tolerating well. All needs anticipated, kept clean and dry, aspiration precautions observed at all times, seizure precautions rendered, safety precautions in place, frequent visual checks done, brakes locked, padded side rails up X 2, call light left within reach, will endorse to next shift for continuity of care.
[2021-11-06] MEDS: NEPRO 1,000 ML BOTTLE GT PRN (18:23)
--- NOTE | 2021-11-06 19:40 | NUR ---
Received a call from laboratory spoke to Holley, regarding patients WBC which resulted to 46.6. Patient seen comfortably lying in bed, no apparent distress noted, afebrile, hospitalist paged waiting for call back. Addendum: 11/06/21 at 1942 by TADEO GALICIA RN WRONG DOCUMENTATION, DISREGARD PLEASE
--- NOTE | 2021-11-06 19:50 | NUR ---
RECEIVED PT IN BED, EYES CLOSED, RESTING COMFORTABLY, DAUGHTER AT BEDSIDE. NO S/SX OF RESPIRATORY DISTRESS NOTED. NO SOB NOTED. WILL CONTINUE TO MONITOR.
[2021-11-06] MEDS ORDERED: DAPTOMYCIN IV SCH (20:00)
[2021-11-06] MEDS ORDERED: NS 0.9% IV SCH (20:00)
[2021-11-06] MEDS: LATANOPROST EYE DROP 0.005% 2.5 ML BOTTLE OP SCH (21:20)
[2021-11-06 21:43] VITALS: BP 93/47
[2021-11-06 22:00] VITALS: BP 93/47
[2021-11-07] MEDS: IPRATROPIUM NEB FS 0.5 MG/2.5 ML AMPUL.NEB NEB SCH ×3 (01:58→19:39)
[2021-11-07] MEDS: PHENYTOIN SODIUM IV 100 MG/2ML VIAL IV SCH ×3 (04:21→21:26)
[2021-11-07] MEDS: MEROPENEM 500 MG in IV NS 0.9% 50 ML IV SCH ×2 (05:08→18:22)
[2021-11-07] MEDS: VANCOMYCIN HCL 125 MG/2.5 ML ORAL.SUSP GT SCH ×4 (05:08→23:40)
[2021-11-07] MEDS: MIDODRINE HCL (5MG) 5 MG TABLET GT PRN (05:26)
[2021-11-07] MEDS: BLOOD SUGAR DIAGNOSTIC 1 EACH STRIP IN SCH ×4 (06:20→23:40)
--- NOTE | 2021-11-07 06:57 | NUR ---
PATIENT BP SLIGHTLY LOW @0500. ADMINISTERED MIDODRINE. OTHERWISE PATIENT IS STABLE. Addendum: 11/07/21 at 0702 by WADE DEL TORO RN BP OF 84/34
--- NOTE | 2021-11-07 07:20 | NUR ---
ms rn received patient on bed, non verbal,opens eyes, fent dependent patient w/ g tube disconnected at this time. repositioned for comfort,all needs attended.
[2021-11-07 08:00] VITALS: BP 101/46
[2021-11-07] MEDS: Z GUARD REMEDY 4 OZ OINT TP SCH (09:00)
[2021-11-07] MEDS: METOCLOPRAMIDE HCL 10 MG/2 ML VIAL IV SCH ×3 (09:15→23:40)
[2021-11-07] MEDS: PANTOPRAZOLE 40 MG/PACK PACK GT SCH (09:15)
[2021-11-07] MEDS: ASCORBIC ACID 500 MG TABLET GT SCH (09:16)
[2021-11-07] MEDS: CHOLESTYRAMINE/ASPARTAME 4 G/PKT PACKET GT SCH ×2 (09:16→21:26)
[2021-11-07] MEDS: SEVELAMER CARBONATE 800 MG POWD.PACK GT SCH ×3 (09:16→18:21)
[2021-11-07] MEDS: ARGININE/GLUTAMINE/CALCIUM BMB 1 EACH POWD.PACK GT SCH (09:23)
[2021-11-07] MEDS: PROSOURCE / PROSTAT (PYXIS) 30 ML UDC GT SCH ×3 (09:23→18:21)
--- NOTE | 2021-11-07 09:45 | NUR ---
ms rn am meds given via g tube, tolerated well. am care done to patient, daughter at bedside.
[2021-11-07] MEDS: ALBUMIN 25% 25 GM in PREMIX 1 EA IV PRN (10:46)
[2021-11-07] MEDS: PHENOBARBITAL 30 MG TABLET GT SCH ×2 (11:00→18:21)
[2021-11-07] MEDS: CHLORHEXIDINE GLUCONATE 15 ML UDC MM SCH ×2 (11:00→18:21)
[2021-11-07] MEDS: ACETAMINOPHEN 650 MG/20.3 ML UDC GT PRN (12:21)
--- NOTE | 2021-11-07 12:30 | NUR ---
ms penny bs -193,did not give coverage, patient will be disconnected from , for hd outpatient. albumin started, midodrine given for b/p support in hd.
--- NOTE | 2021-11-07 13:15 | NUR ---
ms rn patient went to hd center via ambulance transport.
[2021-11-07] MEDS: CLOTRIMAZOLE 1% 15 GM TUBE TP SCH ×6 (15:20→21:27)
[2021-11-07] MEDS: MINERAL OIL/PETROLATUM,WHITE 120 GM JAR TP SCH ×2 (15:20→21:26)
[2021-11-07] MEDS: DORZOLAMIDE OPTH 2% 10 ML BOTTLE OP SCH ×2 (15:21→17:00)
[2021-11-07] MEDS: NYSTATIN TOP POWDER 15 GM BOTTLE TP SCH ×2 (15:22→21:27)
[2021-11-07] MEDS: DAKINS HALF STRENGTH (0.25%) 480 ML BOTTLE TOP SCH (17:59)
--- NOTE | 2021-11-07 18:06 | NUR ---
ms rn patient still in hd center at this time.
--- NOTE | 2021-11-07 18:45 | NUR ---
ms rn patient came back from center, bs-193 daughter refused to insulin coverage.
[2021-11-07 20:00] VITALS: BP 105/47
[2021-11-07] MEDS: LATANOPROST EYE DROP 0.005% 2.5 ML BOTTLE OP SCH (21:28)
[2021-11-07] MEDS: INSULIN REGULAR, HUMAN 100 UNIT/ML 3 ML VIAL SQ PRN (23:41)
[2021-11-08] VITALS (10 sets, daily range): BP systolic 101–121; BP diastolic 40–56
[2021-11-08] MEDS: IPRATROPIUM NEB FS 0.5 MG/2.5 ML AMPUL.NEB NEB SCH ×4 (01:41→19:30)
[2021-11-08] MEDS: PHENYTOIN SODIUM IV 100 MG/2ML VIAL IV SCH ×3 (05:25→21:45)
[2021-11-08] MEDS: VANCOMYCIN HCL 125 MG/2.5 ML ORAL.SUSP GT SCH ×4 (05:26→23:54)
[2021-11-08] MEDS: BLOOD SUGAR DIAGNOSTIC 1 EACH STRIP IN SCH ×4 (05:26→23:54)
[2021-11-08] MEDS: MEROPENEM 500 MG in IV NS 0.9% 50 ML IV SCH ×2 (05:26→17:50)
--- NOTE | 2021-11-08 07:30 | NUR ---
MS RN NOTES RECEIVED PATIENT IN BED, LAYING COMFORTABLY, PATIENT IS NON VERBAL, VENT DEPENDENT, TOLERATING SETTINGS WELL. WITH G-TUBE, FEEDING DISCONNECTED AT THIS TIME. REPOSITIONED FOR COMFORT. SAFETY MEASURES IN PLACE: WILL CONTINUE TO MONITOR.
[2021-11-08 07:52] LABS: BASOPHILS # (AUTO) 0.1 K/uL (0.0-0.2); BASOPHILS % (AUTO) 0.3 % (0.0-2.0); EOSINOPHILS % (AUTO) 0.9 % (0.0-6.0); HEMATOCRIT 24 % (33-45); HEMOGLOBIN 7.9 g/dL (11.5-14.8); LYMPHOCYTES # (AUTO) 1.2 K/uL (0.8-4.8); LYMPHOCYTES % (AUTO) 6.4 % (20.0-44.0); MEAN CORPUSCULAR HGB CONC 33 g/dl (31.0-36.0); MEAN CORPUSCULAR VOLUME 96 fL (82-100); MONOCYTES # (AUTO) 1.3 K/uL (0.1-1.30); MONOCYTES % (AUTO) 7.1 % (2.0-12.0); NEUTROPHILS # (AUTO) 15.9 K/uL (1.8-8.9); NEUTROPHILS % (AUTO) 85.3 % (43.0-81.0); PLATELET COUNT (AUTO) 421 K/uL (150-450); RED BLOOD CELL COUNT(AUTO) 2.52 MIL/uL (4.0-5.2); WHITE BLOOD COUNT (AUTO) 18.6 K/uL (4.3-11.0)
[2021-11-08 08:15] LABS: CALCIUM, SERUM 9.3 mg/dL (8.5-10.1); CARBON DIOXIDE 26 mmol/L (21-32); CHLORIDE 93 mmol/L (98-107); CREATININE 1.7 mg/dL (0.6-1.3); GLUCOSE 138 mg/dL (74-106); SODIUM SERUM 134 mmol/L (136-145)
[2021-11-08 08:18] LABS: UREA NITROGEN, BLOOD 86 mg/dL (7-18)
[2021-11-08] MEDS: METOCLOPRAMIDE HCL 10 MG/2 ML VIAL IV SCH ×3 (08:39→23:54)
[2021-11-08] MEDS: CHLORHEXIDINE GLUCONATE 15 ML UDC MM SCH ×2 (08:39→16:16)
[2021-11-08] MEDS: SEVELAMER CARBONATE 800 MG POWD.PACK GT SCH ×3 (08:39→17:49)
[2021-11-08] MEDS: PANTOPRAZOLE 40 MG/PACK PACK GT SCH (08:39)
[2021-11-08] MEDS: CHOLESTYRAMINE/ASPARTAME 4 G/PKT PACKET GT SCH ×2 (08:39→21:44)
[2021-11-08] MEDS: ASCORBIC ACID 500 MG TABLET GT SCH (08:39)
[2021-11-08] MEDS: ARGININE/GLUTAMINE/CALCIUM BMB 1 EACH POWD.PACK GT SCH (08:43)
[2021-11-08] MEDS: PROSOURCE / PROSTAT (PYXIS) 30 ML UDC GT SCH ×3 (08:43→16:15)
[2021-11-08] MEDS: DORZOLAMIDE OPTH 2% 10 ML BOTTLE OP SCH ×2 (08:47→16:16)
[2021-11-08] MEDS: MINERAL OIL/PETROLATUM,WHITE 120 GM JAR TP SCH ×2 (08:48→21:45)
[2021-11-08] MEDS: DAKINS HALF STRENGTH (0.25%) 480 ML BOTTLE TOP SCH (08:48)
[2021-11-08] MEDS: CLOTRIMAZOLE 1% 15 GM TUBE TP SCH ×6 (08:48→21:47)
[2021-11-08] MEDS: NYSTATIN TOP POWDER 15 GM BOTTLE TP SCH ×2 (08:48→21:47)
[2021-11-08] MEDS: Z GUARD REMEDY 4 OZ OINT TP SCH (08:49)
--- NOTE | 2021-11-08 09:00 | NUR ---
RN NOTES RECEIVED A CRITICAL LAB RESULT REPORTED BY SARAH. PROCALCITONIN 59.19. RESULT RELAYED TO ID DOCTOR DR. SPENCER, WITH ORDER TO REPEAT PROCALCITONIN TEST IN AM.
--- NOTE | 2021-11-08 09:38 | NUR ---
RN NOTES POTASSIUM RESULT OF 3.[address] BEACH.
[2021-11-08] MEDS: PHENOBARBITAL 30 MG TABLET GT SCH ×2 (09:42→16:15)
[2021-11-08] MEDS ORDERED: POTASSIUM CHLORIDE 20 MEQ POWDER PACKET GT ONE (10:00)
[2021-11-08] MEDS: NEPRO 1,000 ML BOTTLE GT PRN (10:10)
[2021-11-08 11:33] LABS: PHENYTOIN (DILANTIN) 14.3 ug/ml (10.0-20.0)
--- NOTE | 2021-11-08 11:55 | NUR ---
RN NOTES BLOOD SUGAR WAS 133. UPDATED ARSALAN (DAUGHTER) PER ARSALAN DO NOT GIVE INSULIN COVERAGE.
[2021-11-08] MEDS ORDERED: KEY,NONCONTROL,TO KEEP IN PYXI 1 EA MC ONE (16:07)
--- NOTE | 2021-11-08 19:02 | NUR ---
MS RN NOTES PATIENT IN BED, LAYING COMFORTABLY, PATIENT IS NON VERBAL, VENT DEPENDENT, TOLERATING SETTINGS WELL. WITH G-TUBE, FEEDING DISCONNECTED AT THIS TIME. REPOSITIONED FOR COMFORT. SAFETY MEASURES IN PLACE, WOUND CARE RENDERED. ALL NEEDS ATTENDED. ENDORSED TO NEXT SHIFT FOR OTIS.
--- NOTE | 2021-11-08 19:30 | NUR ---
RN NOTES RECEIVED PATIENT LAYING IN BED, NON-VERBAL, VENT DEPENDENT, G-TUBE RUNNING AT 45ML/HR, PT. IS TOLERATING FAIRLY, NOT IN DISTRESS, NO PAIN NOTED, BED IN LOCKED POSITION, [id number], WILL CONTINUE TO MONITOR
--- NOTE | 2021-11-08 20:00 | NUR ---
RN NOTES CALLED SUB ACUTE CHARGE NURSE REGARDING THEIR PICTURE DAY, PER CHARGE NURSE IT'S EVERY TUESDAY, CHARGE NURSE MADE AWARE
[2021-11-08] MEDS: LATANOPROST EYE DROP 0.005% 2.5 ML BOTTLE OP SCH (21:50)
[2021-11-09] MEDS: IPRATROPIUM NEB FS 0.5 MG/2.5 ML AMPUL.NEB NEB SCH ×4 (01:59→19:30)
[2021-11-09 04:00] VITALS: BP 102/41
[2021-11-09] MEDS: PHENYTOIN SODIUM IV 100 MG/2ML VIAL IV SCH ×3 (04:37→21:17)
[2021-11-09] MEDS: MEROPENEM 500 MG in IV NS 0.9% 50 ML IV SCH ×2 (05:23→17:56)
[2021-11-09] MEDS: BLOOD SUGAR DIAGNOSTIC 1 EACH STRIP IN SCH ×4 (05:23→23:41)
[2021-11-09] MEDS: VANCOMYCIN HCL 125 MG/2.5 ML ORAL.SUSP GT SCH ×4 (05:23→23:41)
--- NOTE | 2021-11-09 06:38 | NUR ---
RN NOTES PATIENT LAYING COMFORTABLY IN BED, NOT IN DISTRESS, G-TUBE FEEDING OFF AT THIS TIME AND WILL RESUME AT 1100AM, NO PAIN NOTED, MORNING CARE RENDERED, SAFETY MEASURES IN PLACE, PT. NEEDS ATTENDED
--- NOTE | 2021-11-09 07:52 | NUR ---
RN OPENING NOTE Patient in bed, asleep; obtunded and non-verbal. On mechanical ventilator, tolerating current settings well. No SOB or s/s of distress noted. IV access on XIOMARA PICC line, intact and patent. GT in place running Nepro at 45 ml/hr. Safety precautions in place: bed in low, locked position; siderails up x 2; call light within reach. Will continue to monitor.
[2021-11-09 08:00] VITALS: BP 104/40
[2021-11-09] MEDS ORDERED: KEY,NONCONTROL,TO KEEP IN PYXI 1 EA MC ONE ×2 (09:08→17:52)
[2021-11-09] MEDS: DAKINS HALF STRENGTH (0.25%) 480 ML BOTTLE TOP SCH (09:12)
[2021-11-09] MEDS: MINERAL OIL/PETROLATUM,WHITE 120 GM JAR TP SCH ×2 (09:12→21:20)
[2021-11-09] MEDS: NYSTATIN TOP POWDER 15 GM BOTTLE TP SCH ×2 (09:12→21:20)
[2021-11-09] MEDS: CLOTRIMAZOLE 1% 15 GM TUBE TP SCH ×6 (09:13→21:19)
[2021-11-09] MEDS: PHENOBARBITAL 30 MG TABLET GT SCH ×2 (09:15→17:55)
[2021-11-09] MEDS: PANTOPRAZOLE 40 MG/PACK PACK GT SCH (09:15)
[2021-11-09] MEDS: METOCLOPRAMIDE HCL 10 MG/2 ML VIAL IV SCH ×3 (09:15→23:41)
[2021-11-09] MEDS: CHLORHEXIDINE GLUCONATE 15 ML UDC MM SCH ×2 (09:15→17:55)
[2021-11-09] MEDS: CHOLESTYRAMINE/ASPARTAME 4 G/PKT PACKET GT SCH ×2 (09:16→21:17)
[2021-11-09] MEDS: ASCORBIC ACID 500 MG TABLET GT SCH (09:16)
[2021-11-09] MEDS: DORZOLAMIDE OPTH 2% 10 ML BOTTLE OP SCH ×2 (09:16→17:56)
[2021-11-09] MEDS: SEVELAMER CARBONATE 800 MG POWD.PACK GT SCH ×3 (09:16→17:55)
[2021-11-09] MEDS: PROSOURCE / PROSTAT (PYXIS) 30 ML UDC GT SCH ×3 (09:19→17:49)
[2021-11-09] MEDS: ARGININE/GLUTAMINE/CALCIUM BMB 1 EACH POWD.PACK GT SCH (09:19)
[2021-11-09] MEDS: Z GUARD REMEDY 4 OZ OINT TP SCH (09:20)
[2021-11-09] MEDS: ACETAMINOPHEN 650 MG/20.3 ML UDC GT PRN (10:41)
--- NOTE | 2021-11-09 10:41 | NUR ---
RN NOTE Patient's Temp is 100.1F, PRN Tylenol given. Will continue to monitor.
[2021-11-09] MEDS: INSULIN REGULAR, HUMAN 100 UNIT/ML 3 ML VIAL SQ PRN (11:52)
--- NOTE | 2021-11-09 14:55 | NUR ---
RN NOTE Received critical value from Mireya, from lab. Patient's procalcitonin is 49.64. JOVITA Neves aware.
[2021-11-09 16:00] VITALS: BP 96/42
[2021-11-09] MEDS: NEPRO 1,000 ML BOTTLE GT PRN (19:20)
--- NOTE | 2021-11-09 19:30 | NUR ---
RN OPENING NOTE RECEIVED PATIENT RESTING IN BED, EASILY AROUSABLE, NON VERBAL. PT ON MECHANICAL VENT, NO S/S OF DISTRESS OR SOB NOTED, BREATHING EVEN AND UNLABORED, SPO2: 100%. IV ACCESS XIOMARA PICC LINE INTACT AND PATENT. GTUBE FEEDING RUNNING NEPRO @ 45 ML/HR, PT TOLERATING WELL. SAFETY PRECAUTIONS IN PLACE. BED IN LOWEST LOCKED POSITION, HOB ELEVATED, SIDE RAILS UP X3, AND CALL LIGHT AND TABLE WITHIN REACH. WILL CONTINUE WITH PLAN OF CARE.
[2021-11-09 20:00] VITALS: BP 110/53
--- NOTE | 2021-11-09 20:02 | NUR ---
RN CLOSING NOTE Patient in bed, asleep; obtunded and non-verbal. On mechanical ventilator, tolerating current settings well. No SOB or s/s of distress noted. IV access on XIOMARA PICC line, intact and patent. GT in place running Nepro at 45 ml/hr. Due meds given. All needs attended to. Wound care done, as ordered. Safety precautions in place: bed in low, locked position; siderails up x 2; call light within reach. Will endorse to nightclub manager nurse for OTIS.
[2021-11-09] MEDS: LATANOPROST EYE DROP 0.005% 2.5 ML BOTTLE OP SCH (21:19)
[2021-11-10] VITALS: BP 123/53
[2021-11-10] MEDS: ACETAMINOPHEN 650 MG/20.3 ML UDC GT PRN (00:42)
--- NOTE | 2021-11-10 00:42 | NUR ---
RN NOTE PT NOTED WITH AXILLARY TEMP OF 100.9. ADMINISTERED TYLENOL FOR TEMP > 100.4 ORDERED. COOLING MEASURES IMPLEMENTED. WILL CONTINUE WITH PLAN OF CARE.
[2021-11-10] MEDS: IPRATROPIUM NEB FS 0.5 MG/2.5 ML AMPUL.NEB NEB SCH ×4 (02:10→19:09)
[2021-11-10 04:00] VITALS: BP 124/48
--- NOTE | 2021-11-10 04:08 | NUR ---
RN NOTE PT NOTED WITH SLIGHT BLEEDING TO THE LEFT EAR. CLEANSED WITH NS AND PAT DRY. REPOSITIONED TO OFFLOAD WEIGHT FROM THE LEFT EAR. PICTURE TAKEN AND PUT IN CHART. WILL CONTINUE WITH PLAN OF CARE.
[2021-11-10] MEDS: PHENYTOIN SODIUM IV 100 MG/2ML VIAL IV SCH ×3 (05:05→21:07)
[2021-11-10] MEDS: MEROPENEM 500 MG in IV NS 0.9% 50 ML IV SCH ×2 (05:06→18:17)
[2021-11-10] MEDS: BLOOD SUGAR DIAGNOSTIC 1 EACH STRIP IN SCH ×3 (05:06→18:10)
[2021-11-10] MEDS: VANCOMYCIN HCL 125 MG/2.5 ML ORAL.SUSP GT SCH ×4 (05:06→23:38)
--- NOTE | 2021-11-10 05:07 | NUR ---
RN NOTE BS 133. HELD INSULIN 2 UNITS SINCE PT IS NOT RECEIVING GTUBE FEEDING FROM 0500 TO 1100. WILL ENDORSE TO ONCOMING NURSE FOR OTIS.
--- NOTE | 2021-11-10 06:45 | NUR ---
RN CLOSING NOTE PATIENT RESTING IN BED, EASILY AROUSABLE, NON VERBAL. PT ON MECHANICAL VENT, NO S/S OF DISTRESS OR SOB NOTED, BREATHING EVEN AND UNLABORED, SPO2: 100%. IV ACCESS XIOMARA PICC LINE INTACT AND PATENT. GTUBE INTACT AND PATENT. ALL NEEDS MET AT THIS TIME. SAFETY PRECAUTIONS IN PLACE AT ALL TIMES. BED IN LOWEST LOCKED POSITION, HOB ELEVATED, SIDE RAILS UP X3, AND CALL LIGHT AND TABLE WITHIN REACH. WILL ENDORSE TO ONCOMING NURSE FOR OTIS.
[2021-11-10 08:00] VITALS: BP 110/65
--- NOTE | 2021-11-10 08:13 | NUR ---
WOUND CARE CONSULT: RECEIVED CONSULT FOR LEFT EAR ABRASION. PT NOTED TO HAVE TOWEL UNDER HER HEAD, ON TOP OF PILLOW CASE. DISCUSSED RECOMMENDATIONS FOR REMOVAL OF TOWEL WITH NURSE BUT NURSE STATED THAT PT'S DAUGHTER INSISTS ON TOWEL UNDER PT'S HEAD. DISCUSSED WITH CYLINDER LOADER AND DIRECTOR. RECOMMENDATIONS MADE FOR WOUND CARE AND SKIN PROTECTION. DISCUSSED WITH NURSING STAFF. MD IN AGREEMENT WITH PLAN OF CARE. Addendum: 11/10/21 at 0815 by BYRON LAZO WNDNU Amended: Links added.
[2021-11-10] MEDS: CHLORHEXIDINE GLUCONATE 15 ML UDC MM SCH ×2 (08:22→18:10)
[2021-11-10] MEDS: SEVELAMER CARBONATE 800 MG POWD.PACK GT SCH ×2 (08:23→12:11)
[2021-11-10] MEDS: ARGININE/GLUTAMINE/CALCIUM BMB 1 EACH POWD.PACK GT SCH (08:23)
[2021-11-10] MEDS: CHOLESTYRAMINE/ASPARTAME 4 G/PKT PACKET GT SCH ×2 (08:23→21:07)
[2021-11-10] MEDS: ASCORBIC ACID 500 MG TABLET GT SCH (08:23)
[2021-11-10] MEDS: PROSOURCE / PROSTAT (PYXIS) 30 ML UDC GT SCH ×3 (08:23→18:10)
[2021-11-10] MEDS: DORZOLAMIDE OPTH 2% 10 ML BOTTLE OP SCH ×2 (08:24→18:10)
[2021-11-10] MEDS ORDERED: KEY,NONCONTROL,TO KEEP IN PYXI 1 EA MC ONE ×2 (08:28→17:59)
[2021-11-10] MEDS: PANTOPRAZOLE 40 MG/PACK PACK GT SCH (08:30)
[2021-11-10] MEDS: PHENOBARBITAL 30 MG TABLET GT SCH ×2 (08:30→18:09)
[2021-11-10] MEDS: METOCLOPRAMIDE HCL 10 MG/2 ML VIAL IV SCH ×2 (08:49→18:16)
[2021-11-10] MEDS: DAKINS HALF STRENGTH (0.25%) 480 ML BOTTLE TOP SCH (11:48)
[2021-11-10] MEDS: NYSTATIN TOP POWDER 15 GM BOTTLE TP SCH ×2 (11:51→21:01)
[2021-11-10] MEDS: CLOTRIMAZOLE 1% 15 GM TUBE TP SCH ×6 (11:51→21:02)
[2021-11-10] MEDS: MINERAL OIL/PETROLATUM,WHITE 120 GM JAR TP SCH ×2 (11:51→21:02)
[2021-11-10] MEDS: BACITRACIN/POLYMYXIN B 15 GM TUBE TP SCH (11:52)
[2021-11-10] MEDS: Z GUARD REMEDY 4 OZ OINT TP SCH (11:52)
[2021-11-10] MEDS: MIDODRINE HCL (5MG) 5 MG TABLET GT PRN (13:18)
--- NOTE | 2021-11-10 13:30 | NUR ---
subacute coil spring assembler: notes pt for hd tx at renal [facility] dialysis and picked up by ambulance with 2 crew and 1 r.t. at this time.
--- NOTE | 2021-11-10 13:45 | NUR ---
subacute sizing machine tender: notes tato padgett (rd, product development engineer) faxed recommendation to discontinue sevelamer r/t hypophosphatemia, phos 2.6, discontinue vitamin c 500mg to reduce r/o oxalosis r/t oliguria, and start water flush 100cc bid. mayela (cn) from subacute made aware and relayed message to dr. barlow and with order okay with the recommendations. order carried out and acknowledged.
[2021-11-10 17:40] VITALS: BP 114/50
--- NOTE | 2021-11-10 17:40 | NUR ---
sub acute treasury associate: notes brought back by ambulance with 2 crew and 1 r.t. pt appears to be pale. bs dabae=649. r.t at bedside on standby. b/p taken 114/50, hr 87 with 100% on fio2 at 30%. re check b/p after 5 minutes 106/51, hr 87. daughter at bedside. per report teresa (rn) at renal dialysis center stopped her dialysis due to low b/p. called 3x and left message once to renal care ([phone]). cn made aware. nurses dialysis communication record was handed, but incomplete report. mayela arvizu) from [facility] made aware.
[2021-11-10 17:45] VITALS: BP 106/51
--- NOTE | 2021-11-10 17:45 | NUR ---
subacute parking officer: notes skin color back to normal. eyes open. hob elevated. daughter remains at bedside. will continue to monitor.
--- NOTE | 2021-11-10 18:00 | NUR ---
subacute brass cutter: notes pm care rendered. kept clean and dry. good pericare rendered. hob elevated. tube feeding re started. daughter remains at bedside. will continue to monitor.
[2021-11-10] MEDS: INSULIN REGULAR, HUMAN 100 UNIT/ML 3 ML VIAL SQ PRN (18:28)
--- NOTE | 2021-11-10 18:28 | NUR ---
subacute fabrication operator: notes daughter at bedside crying. emotional support rendered. insulin coverage for wp=[id number] not given per dtr request for now, will recheck bs at night. needs attended. will continue to monitor.
--- NOTE | 2021-11-10 19:10 | NUR ---
subacute fun house attendant: notes bedside report given to ayala (penny) for continuity of care.
--- NOTE | 2021-11-10 19:20 | NUR ---
RN notes Received Pt from morning nurse. Pt is resting in bed comfortably accompanied by her daughter (Charlotte). Pt is obtunded and able to open eyes. Pt is mec. vent with O2 sat is 100%. XIOMARA piccline is clean, intact and dry. Gtube feeding is intact and running nephro @ 45 ml/hr with 0 residual. Safety precautions is maintained. Bed at low position, brakes locked, side rails upX3, hob elevated, bed alarm is on and call light is within reach. Will continue to monitor.
[2021-11-10 20:00] VITALS: BP 108/47
[2021-11-10] MEDS: LATANOPROST EYE DROP 0.005% 2.5 ML BOTTLE OP SCH (21:01)
[2021-11-10] MEDS: NEPRO 1,000 ML BOTTLE GT PRN (23:43)
[2021-11-11] VITALS: BP 128/56
[2021-11-11] MEDS: BLOOD SUGAR DIAGNOSTIC 1 EACH STRIP IN SCH ×4 (00:14→18:35)
[2021-11-11] MEDS: INSULIN REGULAR, HUMAN 100 UNIT/ML 3 ML VIAL SQ PRN ×2 (00:15→05:42)
[2021-11-11 01:11] VITALS: BP 128/56
[2021-11-11] MEDS: METOCLOPRAMIDE HCL 10 MG/2 ML VIAL IV SCH ×3 (01:22→17:46)
[2021-11-11] MEDS: IPRATROPIUM NEB FS 0.5 MG/2.5 ML AMPUL.NEB NEB SCH ×4 (01:35→19:51)
[2021-11-11] MEDS: ACETAMINOPHEN 650 MG/20.3 ML UDC GT PRN ×2 (01:49→20:03)
[2021-11-11 04:00] VITALS: BP 101/42
[2021-11-11] MEDS: PHENYTOIN SODIUM IV 100 MG/2ML VIAL IV SCH ×3 (04:25→21:26)
[2021-11-11] MEDS: VANCOMYCIN HCL 125 MG/2.5 ML ORAL.SUSP GT SCH ×3 (05:18→17:47)
--- NOTE | 2021-11-11 05:43 | NUR ---
RN notes Pt's blood sugar is 116. No coverage is given. No S/S of hypoglycemia noted. Will continue to monitor.
[2021-11-11] MEDS: MEROPENEM 500 MG in IV NS 0.9% 50 ML IV SCH (05:50)
--- NOTE | 2021-11-11 06:10 | NUR ---
RN notes Informed and notify Pt's daughter Charlotte regarding Pt's XIOMARA Piccline is not working properly. Pt's daughter stated "Let someone check it first because it's hard!!" I know that!!" Staff also mentioned will endorse it to am nurse and will have them check it. Charge nurse is aware and informed.
--- NOTE | 2021-11-11 06:58 | NUR ---
RN notes Pt is resting in bed comfortably. Pt is obtunded and able to open eyes. Pt is mec. vent with O2 sat is 100%. VS is stable. Routine meds were given as ordered. XIOMARA piccline is clean, intact and dry. Gtube feeding is intact and running nephro @ 45 ml/hr with 0 residual. Wound care provided as ordered. Kept Pt clean, dry and comfortable. Safety precautions is maintained. Bed at low position, brakes locked, side rails upX3, hob elevated, bed alarm is on and call light is within reach. Benjamín endorse to am nurse for OTIS.
--- NOTE | 2021-11-11 07:55 | NUR ---
RN OPENING NOTES PATIENT AWAKE IN BED RESTING, PATIENT IS OBTUNDED, ABLE TO OPEN EYES. NO S/S OF PAIN NOTED AT THIS TIME. PATIENT ON VENT, NO DISTRESS NOTED. IV ACCESS XIOMARA PICC LINE INTACT, PATENT AND FLUSHING WELL. PATIENT HAVE A G TUBE IN PLACE, NEPRO AT 45ML/HR. FALL AND SAFETY MEASURES IN PLACE, BED ALARM ON, BED IN LOW AND LOCK POSITION, CALL LIGHT AND TABLE WITHIN EASY REACH, SIDE RAILS UP X2. WILL CONTINUE TO MONITOR.
[2021-11-11] MEDS: PROSOURCE / PROSTAT (PYXIS) 30 ML UDC GT SCH ×3 (09:37→17:48)
[2021-11-11] MEDS: CHOLESTYRAMINE/ASPARTAME 4 G/PKT PACKET GT SCH ×2 (09:38→21:26)
[2021-11-11] MEDS: CHLORHEXIDINE GLUCONATE 15 ML UDC MM SCH ×2 (09:38→17:41)
[2021-11-11] MEDS: PANTOPRAZOLE 40 MG/PACK PACK GT SCH (09:38)
[2021-11-11] MEDS: ARGININE/GLUTAMINE/CALCIUM BMB 1 EACH POWD.PACK GT SCH (09:39)
[2021-11-11] MEDS: DAKINS HALF STRENGTH (0.25%) 480 ML BOTTLE TOP SCH (09:40)
[2021-11-11] MEDS: MINERAL OIL/PETROLATUM,WHITE 120 GM JAR TP SCH ×2 (09:40→21:26)
[2021-11-11] MEDS: CLOTRIMAZOLE 1% 15 GM TUBE TP SCH ×6 (09:41→21:27)
[2021-11-11] MEDS: NYSTATIN TOP POWDER 15 GM BOTTLE TP SCH ×2 (09:41→21:27)
[2021-11-11] MEDS: DORZOLAMIDE OPTH 2% 10 ML BOTTLE OP SCH ×2 (09:44→17:59)
[2021-11-11 10:00] VITALS: BP 112/48
[2021-11-11] MEDS ORDERED: KEY,NONCONTROL,TO KEEP IN PYXI 1 EA MC ONE ×2 (10:37→10:39)
[2021-11-11] MEDS: PHENOBARBITAL 30 MG TABLET GT SCH ×2 (10:40→17:56)
[2021-11-11] MEDS: BACITRACIN/POLYMYXIN B 15 GM TUBE TP SCH (11:40)
[2021-11-11] MEDS: Z GUARD REMEDY 4 OZ OINT TP SCH (11:41)
--- NOTE | 2021-11-11 15:36 | NUR ---
Family Invite to IDT: VOLODYMYR called the pt.'s son, Art [phone] inviting them to participate in 11/13/2021 IDT Meeting. Art stated he is not bale to participate as he works at that time. SW informed him he can call pt.'s nurse to get briefing on what was discussed. Art is agreeable. SW will follow up as needed.
--- NOTE | 2021-11-11 19:05 | NUR ---
RN CLOSING NOTES PATIENT AWAKE IN BED RESTING, PATIENT IS OBTUNDED, ABLE TO OPEN EYES. NO S/S OF PAIN NOTED AT THIS TIME. PATIENT ON VENT, NO DISTRESS NOTED. IV ACCESS XIOMARA PICC LINE INTACT, PATENT AND FLUSHING WELL. PATIENT HAVE A G TUBE IN PLACE, NEPRO AT 45ML/HR. FALL AND SAFETY MEASURES IN PLACE, BED ALARM ON, BED IN LOW AND LOCK POSITION, CALL LIGHT AND TABLE WITHIN EASY REACH, SIDE RAILS UP X2. WILL ENDORSE TO VEGETABLE WORKER.
[2021-11-11 20:00] VITALS: BP 119/49
[2021-11-11] MEDS: LATANOPROST EYE DROP 0.005% 2.5 ML BOTTLE OP SCH (21:27)
[2021-11-12] VITALS: BP 110/49
[2021-11-12] MEDS: BLOOD SUGAR DIAGNOSTIC 1 EACH STRIP IN SCH ×4 (00:07→18:14)
[2021-11-12] MEDS: METOCLOPRAMIDE HCL 10 MG/2 ML VIAL IV SCH ×3 (00:07→16:19)
[2021-11-12] MEDS: VANCOMYCIN HCL 125 MG/2.5 ML ORAL.SUSP GT SCH ×4 (00:09→17:28)
[2021-11-12] MEDS: IPRATROPIUM NEB FS 0.5 MG/2.5 ML AMPUL.NEB NEB SCH ×4 (01:39→19:30)
[2021-11-12] MEDS: PHENYTOIN SODIUM IV 100 MG/2ML VIAL IV SCH ×3 (05:00→21:16)
--- NOTE | 2021-11-12 05:00 | NUR ---
SA RN NOTES PICC LINE UNABLE TO FLUSH. UNABLE TO GIVE MEDS THRU LINE. HOOK LOADER AWARE. WILL CONTINUE TO MONITOR.
[2021-11-12 05:03] VITALS: BP 103/48
--- NOTE | 2021-11-12 06:41 | NUR ---
SA RN NOTES PT OBTUNDED, NON VERBAL. AFEBRILE. NOT IN ANY DISTRESS. NO SOB NOTED. NO S/SX OF ANY PAIN OR DISCOMFORT AT THIS TIME. WITH GTF INFUSING WELL. KEPT ON ASPIRATION PREC AAT. AM CARE DONE. MONITORED ACCORDINGLY. CALL LIGHT WITHIN REACH. BED IN LOWEST POSITION. SR UP X 3 WITH BED ALARM ON FOR SAFETY. WILL ENDORSE TO NEXT SHIFT.
--- NOTE | 2021-11-12 07:30 | NUR ---
RN NOTES RECEIVED PT IN BED, OBTUNDED, NON VERBAL. FEBRILE, COOLING MEASURES PROVIDED. ON MECH VENT TOLERATING SETTINGS WELL. NOT IN ANY DISTRESS. NO SOB NOTED. NO S/SX OF ANY PAIN OR DISCOMFORT AT THIS TIME. WITH GTF INFUSING WELL. KEPT ON ASPIRATION PRECAUTIONS. SAFETY MEASURES IN PLACE: CALL LIGHT WITHIN REACH. BED IN LOWEST POSITION. SR UP X 3 WITH BED ALARM ON FOR SAFETY. WILL MONITOR ACCORDINGLY.
[2021-11-12 07:44] LABS: BASOPHILS # (AUTO) 0.1 K/uL (0.0-0.2); BASOPHILS % (AUTO) 0.4 % (0.0-2.0); EOSINOPHILS % (AUTO) 1.3 % (0.0-6.0); HEMATOCRIT 28 % (33-45); HEMOGLOBIN 8.9 g/dL (11.5-14.8); LYMPHOCYTES # (AUTO) 1.6 K/uL (0.8-4.8); LYMPHOCYTES % (AUTO) 7.9 % (20.0-44.0); MEAN CORPUSCULAR HGB CONC 32 g/dl (31.0-36.0); MEAN CORPUSCULAR VOLUME 99 fL (82-100); MONOCYTES # (AUTO) 1.7 K/uL (0.1-1.30); NEUTROPHILS % (AUTO) 82.4 % (43.0-81.0); PLATELET COUNT (AUTO) 420 K/uL (150-450); RED BLOOD CELL COUNT(AUTO) 2.83 MIL/uL (4.0-5.2); WHITE BLOOD COUNT (AUTO) 20.7 K/uL (4.3-11.0)
[2021-11-12 08:00] VITALS: BP 124/50
[2021-11-12] MEDS: ARGININE/GLUTAMINE/CALCIUM BMB 1 EACH POWD.PACK GT SCH (08:58)
[2021-11-12] MEDS: PANTOPRAZOLE 40 MG/PACK PACK GT SCH (08:58)
[2021-11-12] MEDS: PROSOURCE / PROSTAT (PYXIS) 30 ML UDC GT SCH ×3 (08:58→17:18)
[2021-11-12] MEDS: CHOLESTYRAMINE/ASPARTAME 4 G/PKT PACKET GT SCH ×2 (08:59→21:16)
[2021-11-12] MEDS: CHLORHEXIDINE GLUCONATE 15 ML UDC MM SCH ×2 (08:59→17:19)
[2021-11-12] MEDS: CLOTRIMAZOLE 1% 15 GM TUBE TP SCH ×6 (09:00→21:17)
[2021-11-12] MEDS: NYSTATIN TOP POWDER 15 GM BOTTLE TP SCH ×2 (09:00→21:17)
[2021-11-12] MEDS: DORZOLAMIDE OPTH 2% 10 ML BOTTLE OP SCH ×2 (09:00→17:28)
[2021-11-12] MEDS: MINERAL OIL/PETROLATUM,WHITE 120 GM JAR TP SCH ×2 (09:00→21:17)
[2021-11-12] MEDS: DAKINS HALF STRENGTH (0.25%) 480 ML BOTTLE TOP SCH (09:00)
[2021-11-12] MEDS: BACITRACIN/POLYMYXIN B 15 GM TUBE TP SCH (09:01)
[2021-11-12] MEDS: Z GUARD REMEDY 4 OZ OINT TP SCH (09:01)
[2021-11-12] MEDS ORDERED: KEY,NONCONTROL,TO KEEP IN PYXI 1 EA MC ONE ×2 (09:03→17:25)
[2021-11-12] MEDS: PHENOBARBITAL 30 MG TABLET GT SCH ×2 (09:06→17:28)
[2021-11-12] MEDS: ACETAMINOPHEN 650 MG/20.3 ML UDC GT PRN (09:41)
[2021-11-12] MEDS: NEPRO 1,000 ML BOTTLE GT PRN (09:50)
[2021-11-12 10:00] VITALS: BP 124/50
[2021-11-12] MEDS: ALBUMIN 25% 25 GM in PREMIX 1 EA IV PRN ×2 (10:54→11:54)
[2021-11-12] MEDS: MIDODRINE HCL (5MG) 5 MG TABLET GT SCH (12:22)
--- NOTE | 2021-11-12 13:17 | NUR ---
RN NOTES PATIENT WAS PICKED UP BY 2 EMT AND 1 RT FOR DIALYSIS TODAY. LEFT UNIT IN STABLE CONDITION. EXTRA BLANKET NAD GOWN PROVIDED.
--- NOTE | 2021-11-12 17:15 | NUR ---
RN NOTES PATIENT ARRIVED FROM HD. TRANSFERRED TO BED SAFELY. PLACED ON VENT SETTINGS ORDERED C/O RT. WOUND CARE DONE ORDERED. PM CARE DONE. KEPT PATIENT DRY AND COMFORTABLE.
[2021-11-12] MEDS: INSULIN REGULAR, HUMAN 100 UNIT/ML 3 ML VIAL SQ PRN (18:12)
--- NOTE | 2021-11-12 18:16 | NUR ---
RN NOTES NOTED REDNESS ON PATIENT'S RIGHT SIDE OF SCALP. WOUND CONSULT TRIGGERED.
--- NOTE | 2021-11-12 19:00 | NUR ---
RN NOTES ALL NEEDS ATTENDED AND MET. DUE MEDS GIVEN ORDERED. KEPT CLEAN AND DRY. ENDORSE TO ONCOMING SHIFT FOR OTIS.
[2021-11-12 20:00] VITALS: BP 111/45
[2021-11-12] MEDS: LATANOPROST EYE DROP 0.005% 2.5 ML BOTTLE OP SCH (21:18)
[2021-11-13] VITALS: BP 115/50
[2021-11-13] MEDS: IPRATROPIUM NEB FS 0.5 MG/2.5 ML AMPUL.NEB NEB SCH ×4 (01:30→20:20)
[2021-11-13] MEDS: METOCLOPRAMIDE HCL 10 MG/2 ML VIAL IV SCH ×3 (01:39→15:57)
[2021-11-13] MEDS: BLOOD SUGAR DIAGNOSTIC 1 EACH STRIP IN SCH ×5 (01:39→23:32)
[2021-11-13] MEDS: VANCOMYCIN HCL 125 MG/2.5 ML ORAL.SUSP GT SCH ×5 (01:39→23:25)
[2021-11-13 04:00] VITALS: BP 126/47
[2021-11-13] MEDS: PHENYTOIN SODIUM IV 100 MG/2ML VIAL IV SCH ×3 (05:33→20:15)
--- NOTE | 2021-11-13 06:24 | NUR ---
RN NOTES PT OBTUNDED, NON VERBAL. AFEBRILE. WITH SAME VENT SETTINGS. NOT IN ANY DISTRESS. NO SOB NOTED. NO S/SX OF ANY PAIN OR DISCOMFORT AT THIS TIME. WITH GTF INFUSING WELL. KEPT ON ASPIRATION PREC AAT. AM CARE DONE. MONITORED ACCORDINGLY. CALL LIGHT WITHIN REACH. BED IN LOWEST POSITION. SR UP X 3 WITH BED ALARM ON FOR SAFETY. WILL ENDORSE TO NEXT SHIFT.
--- NOTE | 2021-11-13 07:56 | NUR ---
MS RN OPENING NOTES RECEIVED PATIENT IN BED, ASLEEP, ON VENT. TOLERATING VENT SETTINGS WELL AT THIS TIME; BREATHING EVEN AND UNLABORED. NO S/SX OF PAIN AT THIS TIME. G-TUBE PRESENT RUNNING NEPRO @45 MLS/HR. SAFETY PRECAUTIONS IN PLACE; BED IN LOW POSITION AND LOCKED, RAILS UP X2, CALL LIGHT WITHIN REACH. WILL CONTINUE TO MONITOR PATIENT.
[2021-11-13 08:00] VITALS: BP 120/49
--- NOTE | 2021-11-13 08:07 | NUR ---
WOUND CARE CONSULT: RECEIVED CONSULT FOR RT SCALP REDNESS. PT PRESENTS WITH IRREGULARLY SHAPED DISCOLORATION OF SCALP ON RT SIDE OF HEAD, UNKNOWN ETIOLOGY. NO FLUCTUANCE, INDURATION, DRAINAGE OR TENDERNESS NOTED. RECOMMEND SURGICAL CONSULT. DR CAREN MARTINEZ NOTIFIED. DEFER TO SURGICAL TEAM. ALL SKIN PROTECTION MEASURES IN PLACE. MD IN AGREEMENT WITH PLAN OF CARE.
[2021-11-13] MEDS: PROSOURCE / PROSTAT (PYXIS) 30 ML UDC GT SCH ×3 (08:45→16:27)
[2021-11-13] MEDS: CHOLESTYRAMINE/ASPARTAME 4 G/PKT PACKET GT SCH ×2 (08:45→20:15)
[2021-11-13] MEDS: ARGININE/GLUTAMINE/CALCIUM BMB 1 EACH POWD.PACK GT SCH (08:45)
[2021-11-13] MEDS: PANTOPRAZOLE 40 MG/PACK PACK GT SCH (08:45)
[2021-11-13] MEDS: CHLORHEXIDINE GLUCONATE 15 ML UDC MM SCH ×2 (08:46→16:20)
[2021-11-13] MEDS: BACITRACIN/POLYMYXIN B 15 GM TUBE TP SCH (08:47)
[2021-11-13] MEDS: CLOTRIMAZOLE 1% 15 GM TUBE TP SCH ×6 (08:47→20:15)
[2021-11-13] MEDS: DORZOLAMIDE OPTH 2% 10 ML BOTTLE OP SCH ×2 (08:48→16:27)
[2021-11-13] MEDS: MINERAL OIL/PETROLATUM,WHITE 120 GM JAR TP SCH ×2 (08:48→20:12)
[2021-11-13] MEDS: DAKINS HALF STRENGTH (0.25%) 480 ML BOTTLE TOP SCH (08:48)
[2021-11-13] MEDS: NYSTATIN TOP POWDER 15 GM BOTTLE TP SCH ×2 (08:48→20:13)
[2021-11-13] MEDS: Z GUARD REMEDY 4 OZ OINT TP SCH (08:59)
[2021-11-13] MEDS: PHENOBARBITAL 30 MG TABLET GT SCH ×2 (09:34→16:24)
[2021-11-13] MEDS: ACETAMINOPHEN 650 MG/20.3 ML UDC GT PRN (10:43)
--- NOTE | 2021-11-13 10:48 | NUR ---
SUB ACUTE OVERFLOW RN NOTE PATIENT NOTED WITH FEVER 102. PRN TYLENOL ADMINISTERED. WILL REASSESS.
[2021-11-13] MEDS: MIDODRINE HCL (5MG) 5 MG TABLET GT SCH (11:04)
[2021-11-13 12:00] VITALS: BP 126/53
[2021-11-13] MEDS ORDERED: KEY,NONCONTROL,TO KEEP IN PYXI 1 EA MC ONE (16:21)
--- NOTE | 2021-11-13 16:21 | NUR ---
INTERDISCIPLINARY PLAN OF CARE CONFERENCE took place today. The patients son, Jake B. [phone] participated via phone conference. Dr. Cantor and Interdisciplinary team discussed the plan of care in detail. Current orders as well as treatments and medications were reviewed. The interdisciplinary team addressed art's questions. Art mentioned pt. has redness on scalp, per EMR, wound consult was completed and recommended surgical consult, Dr. Meng Robbins was made aware. Art mentioned he was in care plan meeting with Renal [phone] yesterday & communication sheet for dialysis needs improvement. SW spoke to charge nurse in [facility] and to nurseDanni and reinforced completion of communication sheet and to be sent with pt. every transport to HD. They are agreeable SW made HD communication binder with face sheet, Advanced health care directive and Nurse communication sheet to be sent with pt. and placed in next to pt.'s chart. SW will be available as needed.
--- NOTE | 2021-11-13 18:43 | NUR ---
MS RN CLOSING NOTES PATIENT REMAINS IN BED, ASLEEP, ON VENT. TOLERATING VENT SETTINGS WELL DURING SHIFT; BREATHING EVEN AND UNLABORED. NO S/SX OF PAIN DURING THE DAY. AFEBRILE AT THIS TIME. G-TUBE PRESENT RUNNING NEPRO @45 MLS/HR. ALL NEEDS ATTENDED DURING THE STEPHANIE. PATIENT CLEAN AND DRY. SAFETY PRECAUTIONS IN PLACE; BED IN LOW POSITION AND LOCKED, RAILS UP X2, CALL LIGHT WITHIN REACH. WILL ENDORSE TO HEEL BURNISHER NURSE FOR OTIS.
--- NOTE | 2021-11-13 19:30 | NUR ---
RN opening notes Pt is resting in bed comfortably. Pt is obtunded and able to open eyes. Pt is mec. vent with O2 sat is 100%. No SOB. No S/S of distress noted. XIOMARA piccline is clean, intact and dry. Gtube feeding is intact and running nephro @ 45 ml/hr with 0 residual. Safety precautions is maintained. Bed at low position, brakes locked, side rails upX3, hob elevated, bed alarm is on and call light is within reach. Will continue to monitor.
[2021-11-13] MEDS: NEPRO 1,000 ML BOTTLE GT PRN (19:59)
[2021-11-13 20:00] VITALS: BP 111/51
--- NOTE | 2021-11-13 20:00 | NUR ---
RN notes Received Pt with R temporal redness. Per Pt's daughter stated wound care nurse came. per Pt's daughter was told it's a birthmark but daughter said it is not a birthmark. Picture was taken by the other nurse. Will continue to monitor.
[2021-11-13] MEDS: LATANOPROST EYE DROP 0.005% 2.5 ML BOTTLE OP SCH (21:18)
--- NOTE | 2021-11-13 22:00 | NUR ---
RN notes Picture on R temporal redness is taken. Charge nurse is aware and informed.
[2021-11-13] MEDS: INSULIN REGULAR, HUMAN 100 UNIT/ML 3 ML VIAL SQ PRN (23:33)
[2021-11-14] VITALS (7 sets, daily range): BP systolic 113–153; BP diastolic 34–53
[2021-11-14] MEDS: METOCLOPRAMIDE HCL 10 MG/2 ML VIAL IV SCH ×3 (01:07→17:19)
[2021-11-14] MEDS: IPRATROPIUM NEB FS 0.5 MG/2.5 ML AMPUL.NEB NEB SCH ×4 (04:05→19:25)
[2021-11-14] MEDS: PHENYTOIN SODIUM IV 100 MG/2ML VIAL IV SCH ×3 (04:07→20:58)
[2021-11-14] MEDS: VANCOMYCIN HCL 125 MG/2.5 ML ORAL.SUSP GT SCH ×4 (05:10→23:51)
[2021-11-14] MEDS: BLOOD SUGAR DIAGNOSTIC 1 EACH STRIP IN SCH ×4 (05:20→23:51)
[2021-11-14] MEDS: INSULIN REGULAR, HUMAN 100 UNIT/ML 3 ML VIAL SQ PRN ×3 (05:20→17:22)
--- NOTE | 2021-11-14 06:30 | NUR ---
RN closing notes Pt is resting in bed comfortably. Pt is obtunded and able to open eyes. Pt is mec. vent with O2 sat is 100%. No SOB. No S/S of distress noted. XIOMARA piccline is clean, intact and dry. Gtube feeding is intact and running nephro @ 45 ml/hr with 0 residual. Routine meds were given as ordered. Wound care provided as ordered. Kept Pt clean, dry and comfortable. Safety precautions is maintained. Bed at low position, brakes locked, side rails upX3, hob elevated, bed alarm is on and call light is within reach. Will endorse to am nurse for OTIS.
[2021-11-14] MEDS: CHLORHEXIDINE GLUCONATE 15 ML UDC MM SCH ×2 (09:32→17:19)
[2021-11-14] MEDS: PROSOURCE / PROSTAT (PYXIS) 30 ML UDC GT SCH ×3 (09:33→17:19)
[2021-11-14] MEDS: ARGININE/GLUTAMINE/CALCIUM BMB 1 EACH POWD.PACK GT SCH (09:33)
[2021-11-14] MEDS: CHOLESTYRAMINE/ASPARTAME 4 G/PKT PACKET GT SCH ×2 (09:33→20:59)
[2021-11-14] MEDS: PANTOPRAZOLE 40 MG/PACK PACK GT SCH (09:33)
[2021-11-14] MEDS: MINERAL OIL/PETROLATUM,WHITE 120 GM JAR TP SCH ×2 (09:34→20:58)
[2021-11-14] MEDS: CLOTRIMAZOLE 1% 15 GM TUBE TP SCH ×6 (09:35→20:58)
[2021-11-14] MEDS: NYSTATIN TOP POWDER 15 GM BOTTLE TP SCH ×2 (09:36→20:59)
[2021-11-14] MEDS: BACITRACIN/POLYMYXIN B 15 GM TUBE TP SCH (09:36)
[2021-11-14] MEDS: Z GUARD REMEDY 4 OZ OINT TP SCH (09:37)
[2021-11-14] MEDS: DORZOLAMIDE OPTH 2% 10 ML BOTTLE OP SCH ×2 (09:37→17:28)
[2021-11-14] MEDS: DAKINS HALF STRENGTH (0.25%) 480 ML BOTTLE TOP SCH (09:37)
[2021-11-14] MEDS ORDERED: KEY,NONCONTROL,TO KEEP IN PYXI 1 EA MC ONE ×2 (09:40→17:14)
[2021-11-14] MEDS: PHENOBARBITAL 30 MG TABLET GT SCH ×2 (09:43→17:20)
--- NOTE | 2021-11-14 12:00 | NUR ---
RN NOTES PATIENT GLUCOSE LEVEL IS 133, PER SLIDING SCALE PATIENT SHOULD GET 2 UNITS OF INSULIN. PATIENT DAUGHTER IS AT BEDSIDE AND SHE REFUSED THE 2 UNITS OF INSULIN. DAUGHTER SAID PATIENT IS GOING FOR DIALYSIS TODAY AND SHE WILL BE DISCONNECT FROM THE G-TUBE FEEDING, SHE DOES NOT WANT HER MOTHER TO GET THE 2 UNITS OF INSULIN AT THIS MOMENT.
[2021-11-14] MEDS: ACETAMINOPHEN 650 MG/20.3 ML UDC GT PRN (13:04)
[2021-11-14] MEDS: MIDODRINE HCL (5MG) 5 MG TABLET GT PRN (13:04)
[2021-11-14] MEDS: MIDODRINE HCL (5MG) 5 MG TABLET GT SCH (13:39)
--- NOTE | 2021-11-14 13:39 | NUR ---
RN NOTES PATIENT MEDICATION MIDODRINE WAS GIVEN LATE BECAUSE PATIENT DAUGHTER REQUESTED TO BE GIVEN BEFORE PATIENT GO TO DIALYSIS. PATIENT IS NOT IN ROOM PATIENT WAS TAKEN TO DIALYSIS, VIA GURNEY WITH NO SIGNS OF DISTRESS.
--- NOTE | 2021-11-14 16:45 | NUR ---
RN NOTES PATIENT CAME BACK FROM DIALYSIS VIA GURNEY IN MEDICAL STABLE CONDITION. VITAL SIGNS, BP:115/53, P:98, R:29, T:98.4, O2: 99-100%. DIALYSIS TIME WAS CUT IN HALF BECAUSE PATIENT BP WAS 81/50 DURING DIALYSIS. PATIENT PREVIOUS WEIGHT WAS 59.7KG AND POST DIALYSIS WAS 59.55KG. WILL CONTINUE TO MONITOR.
--- NOTE | 2021-11-14 18:40 | NUR ---
RN NOTE PATIENT HAVE A DISCOLORATION ON THE RIGHT SIDE OF HEAD, NO SWELLING OR OTHER SYMPTOMS. FAMILY REQUESTING CT OF HEAD. SUBACUTE CHARGE NURSE INFORM AND INFORMED DOCTOR DERDERIAN. DOCTOR ORDERED CT OF HEAD. WILL CONTINUE TO MONITOR.
--- NOTE | 2021-11-14 19:30 | NUR ---
RN OPENING NOTE PATIENT LAYING IN BED WITH EYES CLOSED, PT NON VERBAL BUT ABLE TO OPEN EYES. PT ON VENT, NO S/S OF DISTRESS OR SOB NOTED, BREATHING EVEN AND UNLABORED. PATIENT ON GTUBE FEEDING RUNNING NEPRO @ 45 ML/HR. IV ACCESS ON XIOMARA PICC LINE INTACT AND FLUSHING WELL. SAFETY MEASURES IN PLACE: CALL LIGHT WITHIN REACH, SIDE RAILS UP X 3, HOB ELEVATED, BED LOCKED IN LOW POSITION, BED ALARM ON. WILL CONTINUE TO MONITOR PATIENT
[2021-11-14] MEDS: LATANOPROST EYE DROP 0.005% 2.5 ML BOTTLE OP SCH (21:20)
[2021-11-15] VITALS: BP 115/41
[2021-11-15] MEDS ORDERED: METOCLOPRAMIDE HCL 10 MG/2 ML VIAL ONE (01:34)
[2021-11-15] MEDS: METOCLOPRAMIDE HCL 10 MG/2 ML VIAL IV SCH ×3 (01:35→16:33)
--- NOTE | 2021-11-15 01:41 | NUR ---
RN NOTE XIOMARA PICC LINE NO LONGER FLUSHING, CONFIRMED BY CHARGE NURSE LEONIE. REGLAN 5 MG IV GIVEN LATE D/T ATTEMPTS TO INSERT NEW IV ACCESS. LEFT WRIST #24G IV INSERTED AND FLUSHING WELL
[2021-11-15] MEDS: IPRATROPIUM NEB FS 0.5 MG/2.5 ML AMPUL.NEB NEB SCH ×4 (01:58→20:07)
[2021-11-15] MEDS: ACETAMINOPHEN 650 MG/20.3 ML UDC GT PRN ×4 (02:05→20:33)
[2021-11-15 04:00] VITALS: BP 119/50
[2021-11-15] MEDS: PHENYTOIN SODIUM IV 100 MG/2ML VIAL IV SCH (05:00)
[2021-11-15] MEDS ORDERED: phenytoin SODIUM IV 250 MG/5 ML VIAL IV ONE (05:33)
--- NOTE | 2021-11-15 05:40 | NUR ---
RN NOTE PER CHARGE NURSE LEONIE, SHOULDN'T GIVE DILANTIN IN 24G IV ACCESS. CONTACTED DR. HUSSEIN AND RECEIVED NEW ONE TIME ORDER FOR DILANTIN TO BE GIVEN VIA GTUBE, PER . CONTACT PHARMACY FOR DOSAGE CONVERSION TO BE GIVEN VIA GTUBE. PER BILINGUAL EXECUTIVE ASSISTANT, GIVE DILANTIN 150 MG SUSPENSION VIA GTUBE. ORDER CONFIRMED AND CARRIED OUT
[2021-11-15] MEDS ORDERED: PHENYTOIN SUSP UDC 100 MG/4 ML UDC GT ONE (05:45)
[2021-11-15] MEDS: VANCOMYCIN HCL 125 MG/2.5 ML ORAL.SUSP GT SCH ×3 (06:19→17:00)
[2021-11-15] MEDS: BLOOD SUGAR DIAGNOSTIC 1 EACH STRIP IN SCH ×3 (06:19→17:58)
--- NOTE | 2021-11-15 07:00 | NUR ---
RN CLOSING NOTE PATIENT LAYING IN BED WITH EYES CLOSED, PT NON VERBAL BUT ABLE TO OPEN EYES. PT ON VENT, NO S/S OF DISTRESS OR SOB NOTED, BREATHING EVEN AND UNLABORED. PATIENT ON GTUBE FEEDING RUNNING NEPRO @ 45 ML/HR. IV ACCESS ON XIOMARA PICC LINE NOT FLUSHING. MEDICATIONS GIVEN ORDERED, PT NEEDS MET THROUGHOUT SHIFT, WOUND CARE DONE. SAFETY MEASURES IN PLACE: CALL LIGHT WITHIN REACH, SIDE RAILS UP X 3, HOB ELEVATED, BED LOCKED IN LOW POSITION, BED ALARM ON. ENDORSED TO DAY SHIFT NURSE FOR CONTINUITY OF CARE
[2021-11-15] MEDS: NEPRO 1,000 ML BOTTLE GT PRN (07:20)
--- NOTE | 2021-11-15 07:24 | NUR ---
RN OPENING NOTE- PT IN BED WITH EYES CLOSED, PT NON-VERBAL BUT ABLE TO OPEN EYES. PT ON VENT, NO S/S OF DISTRESS OR SOB NOTED, BREATHING EVEN AND NON-LABORED. PATIENT ON GTUBE FEEDING RUNNING NEPRO @ 45 ML/HR. XIOMARA PICC LINE REPORTEDLY NO LONGER PATENT. WILL DISCUSS W CHARGE AND CENTRAL LINE RN. SAFETY MEASURES IN PLACE: CALL LIGHT WITHIN REACH, SIDE RAILS UP X 3, HOB ELEVATED, BED LOCKED IN LOW POSITION, BED ALARM ON. WILL CONTINUE TO MONITOR PATIENT
[2021-11-15] MEDS ORDERED: KEY,NONCONTROL,TO KEEP IN PYXI 1 EA MC ONE ×4 (08:28→16:42)
--- NOTE | 2021-11-15 08:30 | NUR ---
RN NOTE- TEMP - 101.6 / TYLENOL 650 MG ADMINISTERED GT
[2021-11-15] MEDS: PHENOBARBITAL 30 MG TABLET GT SCH ×2 (08:33→16:42)
[2021-11-15] MEDS: MIDODRINE HCL (5MG) 5 MG TABLET GT SCH (08:33)
[2021-11-15] MEDS: PANTOPRAZOLE 40 MG/PACK PACK GT SCH (08:34)
[2021-11-15] MEDS: PROSOURCE / PROSTAT (PYXIS) 30 ML UDC GT SCH ×3 (08:40→16:57)
[2021-11-15] MEDS: ARGININE/GLUTAMINE/CALCIUM BMB 1 EACH POWD.PACK GT SCH (08:40)
[2021-11-15] MEDS: CHLORHEXIDINE GLUCONATE 15 ML UDC MM SCH ×2 (08:41→16:33)
[2021-11-15] MEDS: CHOLESTYRAMINE/ASPARTAME 4 G/PKT PACKET GT SCH ×2 (08:41→20:30)
[2021-11-15] MEDS ORDERED: ACETAMINOPHEN 650 MG/20.3 ML UDC ONE (08:44)
[2021-11-15] MEDS: MINERAL OIL/PETROLATUM,WHITE 120 GM JAR TP SCH ×2 (08:45→20:30)
[2021-11-15] MEDS: DAKINS HALF STRENGTH (0.25%) 480 ML BOTTLE TOP SCH (08:45)
[2021-11-15] MEDS: DORZOLAMIDE OPTH 2% 10 ML BOTTLE OP SCH ×2 (08:45→16:57)
[2021-11-15] MEDS: CLOTRIMAZOLE 1% 15 GM TUBE TP SCH ×6 (08:46→20:30)
[2021-11-15] MEDS: NYSTATIN TOP POWDER 15 GM BOTTLE TP SCH ×2 (08:46→20:30)
[2021-11-15] MEDS: Z GUARD REMEDY 4 OZ OINT TP SCH (08:46)
[2021-11-15] MEDS: BACITRACIN/POLYMYXIN B 15 GM TUBE TP SCH (09:19)
--- NOTE | 2021-11-15 09:30 | NUR ---
RN NOTE- T 102.0 ICE PACKS TO AXILLAE AND NECK AREAS. MONITOR
--- NOTE | 2021-11-15 10:25 | NUR ---
RN NOTE- TEMP 100.4
[2021-11-15] MEDS: INSULIN REGULAR, HUMAN 100 UNIT/ML 3 ML VIAL SQ PRN ×2 (11:51→17:58)
--- NOTE | 2021-11-15 12:20 | NUR ---
RN NOTE- DILANTIN 150 MG IVP DUE SOON. SPOKE W DR PALMER REGARDING CHANGING TO DILANTIN VIA GT. ORDERS GIVEN/ COMPLIED
[2021-11-15] MEDS: PHENYTOIN SUSP UDC 100 MG/4 ML UDC GT SCH ×2 (14:13→20:30)
--- NOTE | 2021-11-15 15:00 | NUR ---
RN NOTE- TEMP 101.8. ICE PACKS AND COOLING MEASURES APPLIED.
--- NOTE | 2021-11-15 16:20 | NUR ---
RN NOTE- TEMP 99.0, TO RADIOLOGY FOR CT SCAN HEAD
--- NOTE | 2021-11-15 18:00 | NUR ---
RN NOTE- CT HEAD UNREMARKABLE. TEMP 98.7, WOUND CRE COMPLETED TO SACRUM STAGE 4 - ESCHAR, UNDERMINING, PURULENCE,, ERYTHEMATOUS AT EDGES/ CLEANSED PER ORDERS W DAKINS / NS , PACKED W GAUZE AND COVERED W ABD DRESSINGS. PIV SITE #24G TO LT HAND DISLODGED AND REMOVED.
--- NOTE | 2021-11-15 18:25 | NUR ---
RN CLOSING NOTE- PT IN BED WITH EYES CLOSED, OBTUNDED. PT ON VENT, NO S/S OF DISTRESS OR SOB NOTED, BREATHING EVEN AND NON-LABORED. PATIENT ON GTUBE FEEDING RUNNING NEPRO @ 45 ML/HR. XIOMARA PICC LINE OCCLUDED. PICC LINE / MIDLINE RN TO ASSESS TUESDAY.CHANGED DILANTIN TO GT RX. AFEBRILE AT PRESENT,WOUND CARE COMPLETED SAFETY MEASURES IN PLACE: CALL LIGHT WITHIN REACH, SIDE RAILS UP X 3, HOB ELEVATED, BED LOCKED IN LOW POSITION, BED ALARM ON. WILL CONTINUE TO MONITOR PATIENT
--- NOTE | 2021-11-15 19:10 | NUR ---
RN OPENING NOTE RECEIVED PATIENT RESTING IN BED. OBTUNDED AT BASELINE. FAMILY AT BEDSIDE. CONTINUES ON MECHANICAL VENT WITH PATIENT TOLERATING SETTINGS WELL. NO IV ACCESS AT THIS TIME D/T PICC LINE OBSTRUCTION. NEW ORDER FOR MIDLINE IN AM. AWARE. CONTINUES ON GT FEED NEPRO @ 45ML/HR. NO RESIDUAL NOTED AT THIS TIME. FREQUENT REPOSITIONING FOR SACRAL WOUND. CALL LIGHT WITHIN REACH. ASPIRATION, FALL AND SAFETY PRECAUTIONS MAINTAINED. WILL CONTINUE TO MONITOR.
[2021-11-15 22:00] VITALS: BP 106/41
[2021-11-15] MEDS: LATANOPROST EYE DROP 0.005% 2.5 ML BOTTLE OP SCH (22:05)
[2021-11-16] MEDS: VANCOMYCIN HCL 125 MG/2.5 ML ORAL.SUSP GT SCH ×4 (00:34→17:20)
[2021-11-16] MEDS: BLOOD SUGAR DIAGNOSTIC 1 EACH STRIP IN SCH ×4 (00:34→17:29)
[2021-11-16] MEDS: IPRATROPIUM NEB FS 0.5 MG/2.5 ML AMPUL.NEB NEB SCH ×4 (02:14→20:14)
[2021-11-16] MEDS: METOCLOPRAMIDE HCL 10 MG/10 ML UDC GT SCH ×3 (05:00→22:05)
[2021-11-16] MEDS: PHENYTOIN SUSP UDC 100 MG/4 ML UDC GT SCH ×3 (05:02→22:03)
[2021-11-16] MEDS: ACETAMINOPHEN 650 MG/20.3 ML UDC GT PRN ×2 (05:05→11:20)
--- NOTE | 2021-11-16 06:00 | NUR ---
MS/RN CLOSING NOTE PATIENT CURRENTLY RESTING IN BED. OBTUNDED AT BASELINE. NO S/SX OF PAIN NOTED. CONTINUES ON MECHANICAL VENT WITH PATIENT TOLERATING SETTINGS WELL. NO IV ACCESS AT THIS TIME D/T PICC LINE OBSTRUCTION. MD/MIDLINE RN TO EVALUATE FOR MIDLINE INSERTION IN AM. MD AWARE. CONTINUES ON GT FEED NEPRO @ 45ML/HR X 20HRS. NO RESIDUAL NOTED AT THIS TIME. FREQUENT REPOSITIONING FOR SACRAL WOUND. CALL LIGHT WITHIN REACH. ASPIRATION, FALL AND SAFETY PRECAUTIONS MAINTAINED. WILL ENDORSE PLAN OF CARE TO ONCOMING SHIFT.
[2021-11-16] MEDS: NEPRO 1,000 ML BOTTLE GT PRN (07:10)
[2021-11-16 07:29] LABS: BASOPHILS % (AUTO) 0.3 % (0.0-2.0); EOSINOPHILS % (AUTO) 0.9 % (0.0-6.0); HEMATOCRIT 29 % (33-45); HEMOGLOBIN 9.2 g/dL (11.5-14.8); LYMPHOCYTES # (AUTO) 2.2 K/uL (0.8-4.8); LYMPHOCYTES % (AUTO) 14.1 % (20.0-44.0); MEAN CORPUSCULAR HGB CONC 32 g/dl (31.0-36.0); MEAN CORPUSCULAR VOLUME 98 fL (82-100); MONOCYTES # (AUTO) 1.5 K/uL (0.1-1.30); MONOCYTES % (AUTO) 9.6 % (2.0-12.0); NEUTROPHILS # (AUTO) 11.6 K/uL (1.8-8.9); NEUTROPHILS % (AUTO) 75.1 % (43.0-81.0); PLATELET COUNT (AUTO) 366 K/uL (150-450); RED BLOOD CELL COUNT(AUTO) 2.93 MIL/uL (4.0-5.2); WHITE BLOOD COUNT (AUTO) 15.5 K/uL (4.3-11.0)
[2021-11-16 07:33] LABS: CALCIUM, SERUM 8.9 mg/dL (8.5-10.1); CARBON DIOXIDE 19 mmol/L (21-32); CHLORIDE 90 mmol/L (98-107); CREATININE 3.1 mg/dL (0.6-1.3); GLUCOSE 114 mg/dL (74-106); POTASSIUM 3.9 mmol/L (3.5-5.1); SODIUM SERUM 129 mmol/L (136-145)
[2021-11-16 07:38] LABS: UREA NITROGEN, BLOOD 141 mg/dL (7-18)
--- NOTE | 2021-11-16 08:01 | NUR ---
OVERFLOW RN NOTES PATIENT CURRENTLY RESTING IN BED. OBTUNDED AT BASELINE. NO S/SX OF PAIN NOTED. CONTINUES ON MECHANICAL VENT WITH PATIENT TOLERATING SETTINGS WELL. NO IV ACCESS AT THIS TIME D/T PICC LINE OBSTRUCTION. PER REPORT MD/MIDLINE RN TO EVALUATE FOR MIDLINE INSERTION THIS AM. AWARE. CONTINUES ON GT FEED NEPRO @ 45ML/HR X 20HRS. NO RESIDUAL NOTED AT THIS TIME. FREQUENT REPOSITIONING FOR SACRAL WOUND. CALL LIGHT WITHIN REACH. ASPIRATION, FALL AND SAFETY PRECAUTIONS MAINTAINED. WILL CONTINUE TO MONITOR PATIENT
[2021-11-16] MEDS ORDERED: KEY,NONCONTROL,TO KEEP IN PYXI 1 EA MC ONE ×2 (09:18→16:42)
[2021-11-16] MEDS: PHENOBARBITAL 30 MG TABLET GT SCH ×2 (09:23→16:45)
[2021-11-16] MEDS: MIDODRINE HCL (5MG) 5 MG TABLET GT SCH (09:25)
[2021-11-16] MEDS: CHOLESTYRAMINE/ASPARTAME 4 G/PKT PACKET GT SCH ×2 (09:26→22:04)
[2021-11-16] MEDS: PANTOPRAZOLE 40 MG/PACK PACK GT SCH (09:26)
[2021-11-16] MEDS: CHLORHEXIDINE GLUCONATE 15 ML UDC MM SCH ×2 (09:27→16:30)
[2021-11-16] MEDS: PROSOURCE / PROSTAT (PYXIS) 30 ML UDC GT SCH ×3 (09:34→16:45)
[2021-11-16] MEDS: ARGININE/GLUTAMINE/CALCIUM BMB 1 EACH POWD.PACK GT SCH (09:34)
[2021-11-16] MEDS: MINERAL OIL/PETROLATUM,WHITE 120 GM JAR TP SCH ×2 (09:40→22:05)
[2021-11-16] MEDS: DAKINS HALF STRENGTH (0.25%) 480 ML BOTTLE TOP SCH (09:41)
[2021-11-16] MEDS: CLOTRIMAZOLE 1% 15 GM TUBE TP SCH ×3 (09:41)
[2021-11-16] MEDS: NYSTATIN TOP POWDER 15 GM BOTTLE TP SCH (09:41)
[2021-11-16] MEDS: DORZOLAMIDE OPTH 2% 10 ML BOTTLE OP SCH ×2 (09:42→16:31)
[2021-11-16] MEDS: Z GUARD REMEDY 4 OZ OINT TP SCH (09:42)
[2021-11-16] MEDS: BACITRACIN/POLYMYXIN B 15 GM TUBE TP SCH (09:42)
[2021-11-16 10:00] VITALS: BP 103/43
[2021-11-16] MEDS ORDERED: ALTEPLASE CATHFLO 2 MG/VIAL XX ONE (14:00)
--- NOTE | 2021-11-16 18:55 | NUR ---
SA OVERFLOW RN ALMA NOTES PATIENT REMAINS RESTING IN BED. OBTUNDED AT BASELINE. NO S/SX OF PAIN NOTED. CONTINUES ON MECHANICAL VENT WITH PATIENT TOLERATING SETTINGS WELL. IV ACCESS NURSE ON ROUTE FOR NEW LINE INSERTION OF PICC LINE. CONTINUES ON GT FEED NEPRO @ 45ML/HR X 20HRS. NO RESIDUAL NOTED AT THIS TIME. FREQUENT REPOSITIONING FOR SACRAL WOUND. DRESSING DRY CLEAN AND INTACT. ALL NEEDS ATTENDED DURING THE DAY. CALL LIGHT WITHIN REACH. ASPIRATION, FALL AND SAFETY PRECAUTIONS MAINTAINED. WILL ENDORSE FOR OTIS
--- NOTE | 2021-11-16 19:30 | NUR ---
SUBACUTE RN OPENING RECEIVED PATIENT OBTUNDED. DAUGHTER AT BEDSIDE. NO S/S OF APPARENT DISTRESS-- VENT DEPENDENT. NOT EXHIBITING PAIN VIA FLACC. NO FLUIDS RUNNING AT THIS TIME. SAFETY IN PLACE. WILL CONTINUE WITH PATIENT PLAN OF CARE.
--- NOTE | 2021-11-16 19:45 | NUR ---
subacute overflow rn nurse PICC line RN at bedside at this time.
[2021-11-16 20:00] VITALS: BP 96/40
[2021-11-16 20:35] VITALS: BP 88/40
[2021-11-16 22:00] VITALS: BP 96/40
[2021-11-16] MEDS: LATANOPROST EYE DROP 0.005% 2.5 ML BOTTLE OP SCH (22:06)
[2021-11-17] MEDS: VANCOMYCIN HCL 125 MG/2.5 ML ORAL.SUSP GT SCH ×4 (00:34→17:54)
[2021-11-17] MEDS: BLOOD SUGAR DIAGNOSTIC 1 EACH STRIP IN SCH ×4 (00:35→17:55)
[2021-11-17] MEDS: INSULIN REGULAR, HUMAN 100 UNIT/ML 3 ML VIAL SQ PRN (00:47)
[2021-11-17] MEDS: IPRATROPIUM NEB FS 0.5 MG/2.5 ML AMPUL.NEB NEB SCH ×4 (02:19→19:39)
[2021-11-17] MEDS: PHENYTOIN SUSP UDC 100 MG/4 ML UDC GT SCH ×3 (05:43→21:25)
[2021-11-17] MEDS: METOCLOPRAMIDE HCL 10 MG/10 ML UDC GT SCH ×3 (05:43→21:26)
--- NOTE | 2021-11-17 07:33 | NUR ---
ms rn note no significant change. report given to [facility] for continuity of care.
[2021-11-17 08:00] VITALS: BP 107/59
[2021-11-17] MEDS ORDERED: IPRATROPIUM NEB FS 0.5 MG/2.5 ML AMPUL.NEB ONE (08:01)
--- NOTE | 2021-11-17 08:20 | NUR ---
RN OPENING NOTE Patient is obtunded and non-verbal. On mechanical ventilator tolerating current settings well. Iv access on XIOMARA PICC line, intact and patent. G-tube in place running Nepro at 45 cc/hr. Safety precautions in place: bed in low, locked position; siderails up x 2; call light within reach. Will continue to monitor.
[2021-11-17] MEDS ORDERED: KEY,NONCONTROL,TO KEEP IN PYXI 1 EA MC ONE ×2 (09:06→17:49)
[2021-11-17] MEDS: CHLORHEXIDINE GLUCONATE 15 ML UDC MM SCH ×2 (09:12→17:54)
[2021-11-17] MEDS: PANTOPRAZOLE 40 MG/PACK PACK GT SCH (09:12)
[2021-11-17] MEDS: MIDODRINE HCL (5MG) 5 MG TABLET GT SCH (09:17)
[2021-11-17] MEDS: CHOLESTYRAMINE/ASPARTAME 4 G/PKT PACKET GT SCH ×2 (09:18→21:26)
[2021-11-17] MEDS: PHENOBARBITAL 30 MG TABLET GT SCH ×2 (09:19→17:54)
[2021-11-17] MEDS: ARGININE/GLUTAMINE/CALCIUM BMB 1 EACH POWD.PACK GT SCH (09:19)
[2021-11-17] MEDS: PROSOURCE / PROSTAT (PYXIS) 30 ML UDC GT SCH ×3 (09:19→17:54)
[2021-11-17] MEDS: DAKINS HALF STRENGTH (0.25%) 480 ML BOTTLE TOP SCH (09:20)
[2021-11-17] MEDS: BACITRACIN/POLYMYXIN B 15 GM TUBE TP SCH (09:21)
[2021-11-17] MEDS: MINERAL OIL/PETROLATUM,WHITE 120 GM JAR TP SCH ×2 (09:21→21:27)
[2021-11-17] MEDS: DORZOLAMIDE OPTH 2% 10 ML BOTTLE OP SCH ×2 (09:21→17:55)
--- NOTE | 2021-11-17 12:00 | NUR ---
RN NOTE Patient's BS is 115, no Insulin coverage per sliding scale.
--- NOTE | 2021-11-17 13:10 | NUR ---
RN NOTE Patient picked up by EMT for Dialysis at [facility].
--- NOTE | 2021-11-17 16:00 | NUR ---
RN NOTE Patient brought back to room 321-1 from dialysis.
[2021-11-17 16:39] VITALS: BP 115/63
--- NOTE | 2021-11-17 18:00 | NUR ---
RN NOTE Patient's BS is 96, no Insulin coverage needed per sliding scale.
--- NOTE | 2021-11-17 19:30 | NUR ---
SUBACUTE OVERFLOW RN OPENING RECEIVED PATIENT, EYES OPEN. DAUGHTER AT BEDSIDE. NO S/S OF APPARENT DISTRESS-- VENT DEPENDENT. NOT EXHIBITING PAIN VIA FLACC. G-TUBE RUNNING NEPRO @45CC/HR. L. UA PICC INTACT AND PATENT. CONTACT ISOLATION IN PLACE SAFETY IN PLACE. WILL CONTINUE WITH PATIENT PLAN OF CARE.
--- NOTE | 2021-11-17 19:40 | NUR ---
RN CLOSING NOTE Patient is obtunded and non-verbal. On mechanical ventilator tolerating current settings well. IV access on XIOMARA PICC line, intact and patent. G-tube in place running Nepro at 45 cc/hr. Patient kept clean and dry. Turned and repositioned every 2 hours. Due meds given. Safety precautions maintained: bed in low, locked position; siderails up x 2; call light within reach. Will endorse to maintenance technician 3rd shift nurse for OTIS.
[2021-11-17 20:00] VITALS: BP 123/50
[2021-11-17] MEDS: LATANOPROST EYE DROP 0.005% 2.5 ML BOTTLE OP SCH (21:27)
[2021-11-17] MEDS: EPOETIN ALFA-EPBX 4,000 UNIT/ML VIAL IV PRN (21:29)
[2021-11-17] MEDS: NEPRO 1,000 ML BOTTLE GT PRN (21:45)
[2021-11-17 22:34] VITALS: BP 123/50
[2021-11-18] MEDS: VANCOMYCIN HCL 125 MG/2.5 ML ORAL.SUSP GT SCH ×4 (00:02→18:19)
[2021-11-18] MEDS: BLOOD SUGAR DIAGNOSTIC 1 EACH STRIP IN SCH ×4 (00:09→18:12)
[2021-11-18] MEDS: INSULIN REGULAR, HUMAN 100 UNIT/ML 3 ML VIAL SQ PRN ×2 (00:10→06:00)
--- NOTE | 2021-11-18 00:10 | NUR ---
BLOOD SUGAR 93. NO COVERAGE NEEDED.
[2021-11-18] MEDS: IPRATROPIUM NEB FS 0.5 MG/2.5 ML AMPUL.NEB NEB SCH ×4 (03:11→20:04)
[2021-11-18] MEDS: METOCLOPRAMIDE HCL 10 MG/10 ML UDC GT SCH ×3 (05:57→20:46)
[2021-11-18] MEDS: PHENYTOIN SUSP UDC 100 MG/4 ML UDC GT SCH ×3 (05:57→20:50)
--- NOTE | 2021-11-18 07:37 | NUR ---
RN CLOSING REPORT GIVEN TO MICHAEL. NO SIGNIFICANT CHANGE.
--- NOTE | 2021-11-18 08:00 | NUR ---
RN Opening Note Patient received in bed, non verbal, no distress observed, able to responds physical stimuli. Respiratory even and unlabored on ventilator. Skin is warm to touch, keep clean/dry, intact piccline. Kept elevated HOB for ensure airway/aspiration precaution and remain lower position of the bed for safety. call light within reach, will continue to monitor.
[2021-11-18 08:20] VITALS: BP 117/48
[2021-11-18] MEDS: MIDODRINE HCL (5MG) 5 MG TABLET GT SCH (09:00)
[2021-11-18] MEDS: CHLORHEXIDINE GLUCONATE 15 ML UDC MM SCH ×2 (09:31→18:14)
[2021-11-18] MEDS: BACITRACIN/POLYMYXIN B 15 GM TUBE TP SCH (09:32)
[2021-11-18] MEDS: DAKINS HALF STRENGTH (0.25%) 480 ML BOTTLE TOP SCH (09:32)
[2021-11-18] MEDS: MINERAL OIL/PETROLATUM,WHITE 120 GM JAR TP SCH ×2 (09:33→20:51)
[2021-11-18] MEDS: DORZOLAMIDE OPTH 2% 10 ML BOTTLE OP SCH ×2 (09:34→17:00)
[2021-11-18] MEDS: CHOLESTYRAMINE/ASPARTAME 4 G/PKT PACKET GT SCH ×2 (09:39→20:47)
[2021-11-18] MEDS: PANTOPRAZOLE 40 MG/PACK PACK GT SCH (09:39)
[2021-11-18] MEDS: PROSOURCE / PROSTAT (PYXIS) 30 ML UDC GT SCH ×3 (09:45→17:00)
[2021-11-18] MEDS ORDERED: KEY,NONCONTROL,TO KEEP IN PYXI 1 EA MC ONE ×2 (09:48→18:17)
[2021-11-18] MEDS: PHENOBARBITAL 30 MG TABLET GT SCH ×2 (09:51→18:19)
[2021-11-18] MEDS: ARGININE/GLUTAMINE/CALCIUM BMB 1 EACH POWD.PACK GT SCH (09:53)
--- NOTE | 2021-11-18 13:59 | NUR ---
Family Invite to IDT: VOLODYMYR emailed the pt.'s Daughter, Charlotte at [email or web address] inviting them to participate in 11/20/2021 IDT Meeting. VOLODYMYR will follow up as needed.
[2021-11-18 16:13] VITALS: BP 98/43
--- NOTE | 2021-11-18 16:47 | NUR ---
Facility Update: [facility] notified family that: "A Sub-Acute employee tested positive for COVID today. Residents and staff will continue receiving response testing as outlined by [facility] Department of Public Health. [facility] will continue to implement [facility] infection control protocols and continue screening employees before every shift. [facility] continues to follow infection control protocols and screen our residents and staff daily for symptoms. It is anticipated that in the near future, visitors who show proof they are up to date (up to date means fully vaccinated an received a booster dose or fully vaccinated but not yet booster-eligible) on their COVID-19 vaccinations will not be required to provide proof of a negative test result prior to indoor visitation, because of this we are encouraging Sub-Acute families to get vaccinated and receive a booster if eligible".
--- NOTE | 2021-11-18 18:00 | NUR ---
RN Closing Note Patient is resting in bed, no distress observed. Patient is on trach and ventilator, respiratory even and unlabored. Skin is warm to touch, keep clean/dry, intact IV site. Kept elevated HOB for ensure airway and aspiration precaution, Also lower position of the bed for safety. No adverse reaction observed form antibiotics. Call light within reach, all needs met. will endorse maintenance mechanic 2nd shift.
--- NOTE | 2021-11-18 18:00 | NUR ---
DTR brought water proof mattress and signed belongs form.
--- NOTE | 2021-11-18 19:30 | NUR ---
MANAGER SIX SIGMA NOTES RECEIVED ON BED WITH OPEN EYES,DAUGHTER AT BEDSIDE,PATIENT APPEARS COMFORTABLE AT THE MOMENT ON TRACH TO VENT,SETTINGS TOLERATED WELL.WITH GT FEEDING OF NEPRO AT 45ML/HR RATE,TOLERATED WELL,FLUSHED WITH WATER 150ML Q 4HOURS TOLERATED.ON SPECIALTY MATTRESS FOR WOUND MANAGEMENT.REPOSITION PER PROTOCOL,WILL CONTINUE TO MONITOR STATUS.
[2021-11-18 20:00] VITALS: BP 104/37
[2021-11-18] MEDS: LATANOPROST EYE DROP 0.005% 2.5 ML BOTTLE OP SCH (20:51)
--- NOTE | 2021-11-18 23:30 | NUR ---
RN NOTES ACCU-CHECK BLOOD SUGAR CHECK 89,NO INSULIN COVERAGE,GT FEEDING IN PROGRESS.
[2021-11-19] VITALS: BP 119/46
[2021-11-19] MEDS: IPRATROPIUM NEB FS 0.5 MG/2.5 ML AMPUL.NEB NEB SCH ×4 (01:38→20:20)
[2021-11-19 04:00] VITALS: BP 100/45
[2021-11-19] MEDS: METOCLOPRAMIDE HCL 10 MG/10 ML UDC GT SCH ×3 (04:44→20:45)
[2021-11-19] MEDS: PHENYTOIN SUSP UDC 100 MG/4 ML UDC GT SCH ×3 (04:45→20:46)
--- NOTE | 2021-11-19 05:00 | NUR ---
RN NOTES MORNING CARE RENDERED.DRESSING CHANGED DONE SACRAL WOUNDS,PICTURES TAKEN PER SCHEDULED TO TAKE PICTURES.
--- NOTE | 2021-11-19 05:30 | NUR ---
RN NOTES ACCU-CHECK BLOOD SUGAR CHECK 99,NO INSULIN COVERAGE.
--- NOTE | 2021-11-19 06:00 | NUR ---
RN NOTES MADE A CALL TO DAUGHTER GARY,MADE AWARE OF LATEST VITALS SIGS.
[2021-11-19] MEDS: BLOOD SUGAR DIAGNOSTIC 1 EACH STRIP IN SCH ×5 (06:20→23:44)
[2021-11-19] MEDS: NEPRO 1,000 ML BOTTLE GT SCH (06:24)
--- NOTE | 2021-11-19 06:53 | NUR ---
SA RN NOTES NO SIGNIFICANT CHANGE IN STATUS,GT FEEDING TOLERATED WELL,NO DIARRHEA NOTED.ALL DUE MEDS ADMINISTERED,REPOSITIONED PER PROTOCOL,FOR HD TODAY.IN NO ACUTE DISTRESS.
[2021-11-19 08:12] VITALS: BP 105/52
[2021-11-19] MEDS: CHOLESTYRAMINE/ASPARTAME 4 G/PKT PACKET GT SCH ×2 (09:13→20:45)
[2021-11-19] MEDS: PHENOBARBITAL 30 MG TABLET GT SCH ×2 (09:13→18:34)
[2021-11-19] MEDS: PANTOPRAZOLE 40 MG/PACK PACK GT SCH (09:14)
[2021-11-19] MEDS: CHLORHEXIDINE GLUCONATE 15 ML UDC MM SCH ×2 (09:14→18:34)
[2021-11-19] MEDS: ARGININE/GLUTAMINE/CALCIUM BMB 1 EACH POWD.PACK GT SCH (09:21)
[2021-11-19] MEDS: PROSOURCE / PROSTAT (PYXIS) 30 ML UDC GT SCH ×3 (09:21→18:33)
[2021-11-19] MEDS: MINERAL OIL/PETROLATUM,WHITE 120 GM JAR TP SCH ×2 (09:44→20:46)
[2021-11-19] MEDS: DORZOLAMIDE OPTH 2% 10 ML BOTTLE OP SCH ×2 (09:44→18:33)
[2021-11-19] MEDS: DAKINS HALF STRENGTH (0.25%) 480 ML BOTTLE TOP SCH (09:44)
[2021-11-19] MEDS: BACITRACIN/POLYMYXIN B 15 GM TUBE TP SCH (09:45)
[2021-11-19] MEDS: MIDODRINE HCL (5MG) 5 MG TABLET GT SCH (11:14)
[2021-11-19 12:19] VITALS: BP 138/61
--- NOTE | 2021-11-19 13:06 | NUR ---
Patient left unit for dialysis via [facility] transportation around 1306pm, no apparent distress noted, no shortness of breath, afebrile, vital signs within normal limits, no s/s of hypo/hyperglycemia, no hypotension noted, no tremors, no change in level of consciousness, patient appears clean, and comfortable. Dialysis site dressing dry and intact, no bleeding, no unusual drainage, no unusual smell noted, no redness. Surgical mask provided to patient, extra blanket and hospital gown provided. Dialysis paperworks and facesheet in a folder handed to [facility] transportation crew.
--- NOTE | 2021-11-19 17:10 | NUR ---
Patient came back from dialysis around 1710pm, no apparent distress noted, vital signs within normal limits, afebrile, no s/s of hypo/hyperglycemia, no tremors, no change in level of consciousness. Per transportation, around 400ml was removed from patient, tried to call dialysis center to verify but went straight to voicemail, dialysis communication sheet was not returned. Patient was initially brought to ER of [facility], spoke to Gregorio ESPINOZA RN and he stated that patient was brought from dialysis center due to SBP 89, upon further assessment SBP was 105, patient was sent back to unit, vital signs taken and SBP was 125, daughter present at bedside, hospitalist paged and acknowledged situation, no new orders at this time. Dialysis site on right chest wall with dressing dry and intact, no bleeding, no unusual drainage, no unusual smell noted, no redness.
[2021-11-19] MEDS ORDERED: KEY,NONCONTROL,TO KEEP IN PYXI 1 EA MC ONE (17:13)
--- NOTE | 2021-11-19 19:03 | NUR ---
RN CLOSING NOTES Patient lying in bed, no shortness of breath, respirations even and unlabored, no apparent distress noted, no grimacing. Gastric tube remained patent, intact and in place during shift, placement verified by auscultation and aspiration of gastric residuals. All due medications given via gtube per MD order, tolerating well. No s/s of hypo or hyperglycemia, no tremors, no change in level of consciousness. Aspiration precautions observed at all times, kept head of bed elevated, all needs anticipated, kept clean and dry, safety precautions in place, seizure precautions observed at all times, frequent visual checks rendered, padded side rails up X 2, brakes locked, call light left within reach, will endorse to next shift for continuity of care
--- NOTE | 2021-11-19 19:30 | NUR ---
SA RN NOTES RECEIVED LAYING COMFORTABLY ON BED,NON VERBAL,OPEN EYES,VENT DEPENDENT,SETTINGS TOLERATED WELL,WITH GT FEEDING OF NEPRO AT 45ML/HR RATE TOLERATED WELL,NO DIARRHEA NOTED,PLACEMENT PATENT BY AUSCULTATION,NO RESIDUAL NOTED.WITH LEFT UPPER ARM PICC LINE FOR IV MEDS,DAUGHTER AT BEDSIDE,WILL REPOSITION PER PROTOCOL.WILL CONTINUE TO MONITOR STATUS.
[2021-11-19 20:00] VITALS: BP 131/50
[2021-11-19] MEDS ORDERED: IPRATROPIUM NEB FS 0.5 MG/2.5 ML AMPUL.NEB ONE (20:16)
--- NOTE | 2021-11-19 20:22 | NUR ---
RT stocked med given. timed med given. unable to pull ordered/active med. pulled stocked med, scanned timed med.
[2021-11-19] MEDS: LATANOPROST EYE DROP 0.005% 2.5 ML BOTTLE OP SCH (20:47)
[2021-11-20] VITALS (7 sets, daily range): BP systolic 93–111; BP diastolic 37–46
[2021-11-20] MEDS ORDERED: IPRATROPIUM NEB FS 0.5 MG/2.5 ML AMPUL.NEB ONE (01:39)
[2021-11-20] MEDS: IPRATROPIUM NEB FS 0.5 MG/2.5 ML AMPUL.NEB NEB SCH ×4 (01:42→20:27)
[2021-11-20] MEDS: PHENYTOIN SUSP UDC 100 MG/4 ML UDC GT SCH ×3 (04:29→22:12)
[2021-11-20] MEDS: METOCLOPRAMIDE HCL 10 MG/10 ML UDC GT SCH ×3 (04:29→22:12)
--- NOTE | 2021-11-20 05:30 | NUR ---
RN NOTES ACCU-CHECK BLOOD SUGAR CHECK 157,COVERED WITH HUMULIN 2 UNITS PER SLIDING SCALE.WILL RE START GT FEEDING AT 0700.
--- NOTE | 2021-11-20 05:45 | NUR ---
RN NOTES MADE A CALL TO DAUGHTER GARY,MADE AWARE OF PATIENT STATUS AND RELAYED LATEST VITALS AT 12MIDNIGHT AND 0400 WELL BLOOD SUGAR LEVEL.OKAY TO GIVE 2 UNITS COVERAGE FOR BLOOD SUGAR 0F 157 AT 0400 AM.
[2021-11-20] MEDS: BLOOD SUGAR DIAGNOSTIC 1 EACH STRIP IN SCH ×4 (05:49→23:49)
[2021-11-20] MEDS: INSULIN REGULAR, HUMAN 100 UNIT/ML 3 ML VIAL SQ PRN ×2 (05:53→17:50)
--- NOTE | 2021-11-20 06:19 | NUR ---
SA RN NOTES NO SIGNIFICANT CHANGE IN STATUS.AFEBRILE THRU OUT SHIFT,DRESSING CHANGE TO SACRAL WOUND DONE,GT FEEDING TOLERATED WELL,NO NAUSEA,VOMITING,DIARRHEA NOTED.REPOSITION PER PROTOCOL,KEPT WARM AND COMFORTABLE,IN NO ACUTE DISTRESS.
--- NOTE | 2021-11-20 08:06 | NUR ---
SA OVERFLOW RN OPENING NOTES PATIENT CURRENTLY RESTING IN BED. OBTUNDED AT BASELINE. NO S/SX OF PAIN NOTED. CONTINUES ON MECHANICAL VENT WITH PATIENT TOLERATING SETTINGS WELL. XIOMARA PICC IN PLACE AND INTACT. CONTINUES ON GT FEED NEPRO @ 45ML/HR X 20HRS. NO RESIDUAL NOTED AT THIS TIME. FREQUENT REPOSITIONING FOR SACRAL WOUND. CALL LIGHT WITHIN REACH. ASPIRATION, FALL AND SAFETY PRECAUTIONS MAINTAINED. WILL CONTINUE TO MONITOR PATIENT
[2021-11-20] MEDS ORDERED: KEY,NONCONTROL,TO KEEP IN PYXI 1 EA MC ONE ×2 (08:08→16:48)
[2021-11-20] MEDS: CHOLESTYRAMINE/ASPARTAME 4 G/PKT PACKET GT SCH ×2 (08:14→22:12)
[2021-11-20] MEDS: PHENOBARBITAL 30 MG TABLET GT SCH ×2 (08:14→16:53)
[2021-11-20] MEDS: PANTOPRAZOLE 40 MG/PACK PACK GT SCH (08:17)
[2021-11-20] MEDS: ARGININE/GLUTAMINE/CALCIUM BMB 1 EACH POWD.PACK GT SCH (08:17)
[2021-11-20] MEDS: PROSOURCE / PROSTAT (PYXIS) 30 ML UDC GT SCH ×3 (08:17→16:53)
[2021-11-20] MEDS: MIDODRINE HCL (5MG) 5 MG TABLET GT SCH (08:17)
[2021-11-20] MEDS: CHLORHEXIDINE GLUCONATE 15 ML UDC MM SCH ×2 (08:18→16:43)
[2021-11-20] MEDS: DAKINS HALF STRENGTH (0.25%) 480 ML BOTTLE TOP SCH (08:26)
[2021-11-20] MEDS: BACITRACIN/POLYMYXIN B 15 GM TUBE TP SCH (08:26)
[2021-11-20] MEDS: MINERAL OIL/PETROLATUM,WHITE 120 GM JAR TP SCH ×2 (08:26→21:00)
[2021-11-20] MEDS: DORZOLAMIDE OPTH 2% 10 ML BOTTLE OP SCH ×2 (08:27→16:44)
--- NOTE | 2021-11-20 15:38 | NUR ---
INTERDISCIPLINARY PLAN OF CARE CONFERENCE took place today. The patients son, Jake Marshall. [phone] participated via phone conference[address] Dr. Cantor and Interdisciplinary team discussed the plan of care in detail. Current orders as well as treatments and medications were reviewed. The interdisciplinary team addressed art's questions. Jake informed SW that Hx. of Breast Cancer Diagnoses is incorrect and he found out it was written while the pt. was at Center at [facility] for a very short time. Art clarified pt. never had diagnosis of Breast Cancer. Noted. Art stated the pt. has not has Flu, Pneumonia or COVID-19 vaccinations and refused for the pt. to receive them now.
--- NOTE | 2021-11-20 17:30 | NUR ---
During IDT, supervisor case loading recommended increasing GT feeding rate from Nepro 45 cc/hr x 18 hours to Nephro 1.8 at 60 cc/hr. x 12 hours and Prostat QID. Per policy and recommendations, GT feeding should be held 2 hours before and after Dilantin administration given Dilantin is given via GT Q 8 hours. Informed Danni HERRING to notify Dr. Prescott of dietary recommendation.
--- NOTE | 2021-11-20 18:51 | NUR ---
SA OVERFLOW RN CLOSING NOTES PATIENT CURRENTLY RESTING IN BED. OBTUNDED AT BASELINE, EYES OPEN. NO S/SX OF PAIN NOTED. CONTINUES ON MECHANICAL VENT WITH PATIENT TOLERATING SETTINGS WELL. XIOMARA PICC IN PLACE AND INTACT. GT FEED NEPRO @ 60ML/HR X 20HRS PER DIETARY. NO RESIDUAL NOTED. FREQUENT REPOSITIONING FOR SACRAL WOUND. ALL NEEDS ATTENDED DURING THE DAY. CALL LIGHT WITHIN REACH. ASPIRATION, FALL AND SAFETY PRECAUTIONS MAINTAINED. WILL ENDORSE TO COOK CANDY NURSE FOR OTIS.
--- NOTE | 2021-11-20 19:24 | NUR ---
SA OVERFLOW RN OPENING NOTE PATIENT IS ASLEEP IN BED. OBTUNDED (EYE OPENING). NO S/S OF DISTRESS, BREATHING BY VENT W/O DIFFICULTY. XIOMARA PICC INTACT. SAFETY MEASURES IN PLACE: BED AT LOWEST POSITION, RAILS UP X2, CALL BETANCUR WITHIN REACH. WILL CONTINUE TO MONITOR PATIENT.
[2021-11-20] MEDS: LATANOPROST EYE DROP 0.005% 2.5 ML BOTTLE OP SCH (22:13)
[2021-11-20] MEDS: NEPRO 1,000 ML BOTTLE GT SCH (23:21)
[2021-11-21] MEDS: IPRATROPIUM NEB FS 0.5 MG/2.5 ML AMPUL.NEB NEB SCH ×4 (01:59→19:45)
[2021-11-21 04:00] VITALS: BP 96/40
[2021-11-21] MEDS: BLOOD SUGAR DIAGNOSTIC 1 EACH STRIP IN SCH ×4 (05:20→23:24)
[2021-11-21] MEDS: METOCLOPRAMIDE HCL 10 MG/10 ML UDC GT SCH ×3 (05:20→21:06)
[2021-11-21] MEDS: PHENYTOIN SUSP UDC 100 MG/4 ML UDC GT SCH ×3 (05:20→21:06)
--- NOTE | 2021-11-21 06:41 | NUR ---
SA RN CLOSING NOTE PATIENT IS ASLEEP IN BED. OBTUNDED (EYE OPENING). NO S/S OF DISTRESS, BREATHING BY VENT W/O DIFFICULTY. XIOMARA PICC SL INTACT AND PATENT. SAFETY MEASURES IN PLACE: BED AT LOWEST POSITION, RAILS UP X2, CALL BETANCUR WITHIN REACH. WILL ENDORSE TO NEXT SHIFT FOR OTIS. SPOKE WITH DAUGHTER, GARY, THIS MORNING REGARDING HER MOTHER'S VS AND CURRENT HEALTH THROUGHOUT THE SHIFT. PATIENT'S TEMPERATURE HAS FLUCTUATED WHICH IS THE NORM FOR HER - GOAL IS TO ENSURE PROPER MEASURES ARE TAKEN AND TEMP DOES NOT EXCEED 100 F. PATIENT NEVER EXCEEDED 100 F, AND EVEN WHEN BEGINNING TO INCREASE, MEASURES WERE TAKEN TO REDUCE HER TEMP STARTING WITH NON-PHARM MEASURES, SUCH REMOVING BLANKETS, ETC. OTHERWISE, PATIENT IS WNL FOR HER AND STABLE.
--- NOTE | 2021-11-21 07:30 | NUR ---
SA OVERFLOW RN OPENING NOTE RECEIVED PATIENT ASLEEP ON BED, OBTUNDED (EYE OPENING). ON MECHANICAL VENT WITH NO SOB NOTED. NOT IN DISTRESS. WIITH LEFT UPPER ARM PICC LINE PATENT AND INTACT. SAFETY MEASURES IN PLACE: BED AT LOWEST POSITION, RAILS UP X2, CALL BETANCUR WITHIN REACH. WILL CONTINUE TO MONITOR.
[2021-11-21 08:00] VITALS: BP 97/43
[2021-11-21] MEDS ORDERED: KEY,NONCONTROL,TO KEEP IN PYXI 1 EA MC ONE ×2 (09:05→18:21)
[2021-11-21] MEDS: PHENOBARBITAL 30 MG TABLET GT SCH ×2 (09:09→18:27)
[2021-11-21] MEDS: PROSOURCE / PROSTAT (PYXIS) 30 ML UDC GT SCH ×3 (09:09→18:27)
[2021-11-21] MEDS: ARGININE/GLUTAMINE/CALCIUM BMB 1 EACH POWD.PACK GT SCH (09:09)
[2021-11-21] MEDS: CHLORHEXIDINE GLUCONATE 15 ML UDC MM SCH ×2 (09:10→18:27)
[2021-11-21] MEDS: MIDODRINE HCL (5MG) 5 MG TABLET GT SCH (09:10)
[2021-11-21] MEDS: PANTOPRAZOLE 40 MG/PACK PACK GT SCH (09:10)
[2021-11-21] MEDS: DORZOLAMIDE OPTH 2% 10 ML BOTTLE OP SCH ×2 (09:16→18:27)
[2021-11-21] MEDS: DAKINS HALF STRENGTH (0.25%) 480 ML BOTTLE TOP SCH (09:16)
[2021-11-21] MEDS: MINERAL OIL/PETROLATUM,WHITE 120 GM JAR TP SCH ×2 (09:17→21:07)
[2021-11-21] MEDS: BACITRACIN/POLYMYXIN B 15 GM TUBE TP SCH (09:17)
[2021-11-21 10:00] VITALS: BP 97/43
[2021-11-21] MEDS: CHOLESTYRAMINE/ASPARTAME 4 G/PKT PACKET GT SCH ×2 (12:02→21:06)
[2021-11-21] MEDS: ACETAMINOPHEN 650 MG/20.3 ML UDC GT PRN (13:08)
[2021-11-21] MEDS: INSULIN REGULAR, HUMAN 100 UNIT/ML 3 ML VIAL SQ PRN ×2 (14:15→23:27)
--- NOTE | 2021-11-21 19:17 | NUR ---
SA OVERFLOW RN CLOSING NOTE PATIENT ASLEEP ON BED, OBTUNDED (EYE OPENING). ON MECHANICAL VENT WITH NO SOB NOTED. NOT IN DISTRESS. STATUS POST HEMODIALYSIS WITH STABLE VITAL SIGNS. WIITH LEFT UPPER ARM PICC LINE PATENT AND INTACT. DUE MEDS GIVEN. SAFETY MEASURES IN PLACE: BED AT LOWEST POSITION, RAILS UP X2, CALL BETANCUR WITHIN REACH. WILL ENDORSE TO NEXT SHIFT FOR OTIS.
--- NOTE | 2021-11-21 19:30 | NUR ---
SA OVERFLOW RN OPENING NOTE RECEIVED PATIENT ASLEEP ON BED, OBTUNDED EASILY AROUSABLE. ON MECHANICAL VENT WITH NO SOB OR S/S OF RESPIRATORY DISTRESS NOTED.IV ACCESS XIOMARA PICC LINE INTACT AND PATENT. GTUBE RUNNING NEPRO @ 45 ML/HR, INTACT AND PATENT. SAFETY PRECAUTIONS IN PLACE. BED IN LOWEST LOCKED POSITION, HOB ELEVATED. SIDE RAILS UP X3, AND CALL LIGHT AND TABLE WITHIN REACH. WILL CONTINUE WITH PLAN OF CARE.
[2021-11-21 20:00] VITALS: BP 122/39
[2021-11-21] MEDS: LATANOPROST EYE DROP 0.005% 2.5 ML BOTTLE OP SCH (21:06)
[2021-11-22] MEDS: IPRATROPIUM NEB FS 0.5 MG/2.5 ML AMPUL.NEB NEB SCH ×4 (01:14→20:09)
[2021-11-22] MEDS: METOCLOPRAMIDE HCL 10 MG/10 ML UDC GT SCH ×3 (04:54→21:26)
[2021-11-22] MEDS: PHENYTOIN SUSP UDC 100 MG/4 ML UDC GT SCH ×3 (04:54→21:26)
[2021-11-22] MEDS: BLOOD SUGAR DIAGNOSTIC 1 EACH STRIP IN SCH ×3 (05:13→17:18)
[2021-11-22] MEDS: INSULIN REGULAR, HUMAN 100 UNIT/ML 3 ML VIAL SQ PRN ×3 (05:15→17:19)
--- NOTE | 2021-11-22 06:44 | NUR ---
SA OVERFLOW RN OPENING NOTE PATIENT ASLEEP ON BED, OBTUNDED EASILY AROUSABLE. ON MECHANICAL VENT WITH NO SOB OR S/S OF RESPIRATORY DISTRESS NOTED. IV ACCESS XIOMARA PICC LINE INTACT AND PATENT. GTUBE RUNNING NEPRO @ 45 ML/HR, INTACT AND PATENT. ALL NEEDS MET AT THIS TIME. SAFETY PRECAUTIONS IN PLACE AT ALL TIMES. BED IN LOWEST LOCKED POSITION, HOB ELEVATED. SIDE RAILS UP X3, AND CALL LIGHT AND TABLE WITHIN REACH. WILL ENDORSE TO ONCOMING NURSE FOR OTIS.
--- NOTE | 2021-11-22 07:29 | NUR ---
SUBACUTE OVERFLOW RN OPENING NOTE RECEIVED PATIENT IN BED, OBTUNDED. WITH EYES CLOSED. NO S/SX OF ACUTE DISTRESS. VENT-DEPENDENT; TOLERATING SETTINGS WELL. SO SIGNS OF PAIN VIA FLACC SCALE. IV ACCESS XIOMARA PICC PATENT AND INTACT. RCW PERMACATH PATENT AND INTACT. SAFETY MEASURES IN PLACE WITH BED LOCKED AND LOW POSITION WITH SIDE RAILS UP X 2. WILL CONTINUE TO MONITOR THROUGHOUT SHIFT.
[2021-11-22] MEDS ORDERED: KEY,NONCONTROL,TO KEEP IN PYXI 1 EA MC ONE ×2 (08:34→16:20)
[2021-11-22] MEDS: CHLORHEXIDINE GLUCONATE 15 ML UDC MM SCH ×2 (08:43→16:08)
[2021-11-22] MEDS: PHENOBARBITAL 30 MG TABLET GT SCH ×2 (08:43→16:27)
[2021-11-22] MEDS: MIDODRINE HCL (5MG) 5 MG TABLET GT SCH (08:44)
[2021-11-22] MEDS: PANTOPRAZOLE 40 MG/PACK PACK GT SCH (08:44)
[2021-11-22] MEDS: CHOLESTYRAMINE/ASPARTAME 4 G/PKT PACKET GT SCH ×2 (08:44→21:26)
[2021-11-22] MEDS: DORZOLAMIDE OPTH 2% 10 ML BOTTLE OP SCH ×2 (08:45→16:09)
[2021-11-22] MEDS: BACITRACIN/POLYMYXIN B 15 GM TUBE TP SCH (08:46)
[2021-11-22] MEDS: DAKINS HALF STRENGTH (0.25%) 480 ML BOTTLE TOP SCH (08:46)
[2021-11-22] MEDS: MINERAL OIL/PETROLATUM,WHITE 120 GM JAR TP SCH ×2 (08:47→21:27)
[2021-11-22] MEDS: PROSOURCE / PROSTAT (PYXIS) 30 ML UDC GT SCH ×3 (08:48→16:08)
[2021-11-22 08:52] VITALS: BP 97/43
[2021-11-22] MEDS: ARGININE/GLUTAMINE/CALCIUM BMB 1 EACH POWD.PACK GT SCH (08:54)
[2021-11-22] MEDS: ACETAMINOPHEN 650 MG/20.3 ML UDC GT PRN (13:18)
[2021-11-22 16:02] VITALS: BP 113/43
[2021-11-22] MEDS: NEPRO 1,000 ML BOTTLE GT SCH (16:37)
--- NOTE | 2021-11-22 18:24 | NUR ---
RN NOTE WOUND DRESSINGS/CHANGE DONE ASSISTED BY CECILIA ALLEN. KEPT PT CLEAN, DRY AND COMFORTABLE.
--- NOTE | 2021-11-22 18:38 | NUR ---
SUBACUTE OVERFLOW RN CLOSING NOTE PT IN BED WITH DAUGHTER AT BEDSIDE. NO S/SX OF ACUTE DISTRESS. NO SIGNIFICANT CHANGE DURING SHIFT. ALL NEEDS MET. PT TOLERATING VENT SETTINGS WELL. SAFETY MEASURES IN PLACE WITH BED LOCKED AND LOW. SIDE RAILS UP X 2. WILL ENDORSE CONTINUITY OF CARE TO ONCOMING SHIFT.
--- NOTE | 2021-11-22 19:47 | NUR ---
SUBACUTE OVERFLOW RN OPENING RECEIVED PATIENT IN BED WITH EYES CLOSED, DAUGHTER AT BEDSIDE. NO S/S OF APPARENT DISTRESS-- VENT DEPENDENT. NOT EXHIBITING PAIN VIA FLACC. NO FLUIDS RUNNING AT THIS TIME -- XIOMARA PICC INTACT AND PATENT-- FLUSHED WITH NS. SAFETY IN PLACE. ISOLATION IN PLACE. WILL CONTINUE WITH PATIENT'S PLAN OF CARE.
[2021-11-22 20:06] VITALS: BP 104/39
[2021-11-22 22:00] VITALS: BP 104/39
[2021-11-22] MEDS: LATANOPROST EYE DROP 0.005% 2.5 ML BOTTLE OP SCH (22:08)
[2021-11-23] MEDS: BLOOD SUGAR DIAGNOSTIC 1 EACH STRIP IN SCH ×4 (00:18→17:28)
[2021-11-23] MEDS: INSULIN REGULAR, HUMAN 100 UNIT/ML 3 ML VIAL SQ PRN (00:20)
[2021-11-23] MEDS: IPRATROPIUM NEB FS 0.5 MG/2.5 ML AMPUL.NEB NEB SCH ×4 (01:34→20:02)
[2021-11-23] MEDS: METOCLOPRAMIDE HCL 10 MG/10 ML UDC GT SCH ×3 (05:00→20:49)
[2021-11-23] MEDS: PHENYTOIN SUSP UDC 100 MG/4 ML UDC GT SCH ×3 (05:00→20:49)
--- NOTE | 2021-11-23 05:33 | NUR ---
SUBACUTE OVERFLOW RN NOTE PATIENT G-TUBE GOT OUT. INSERTED 30 fr of PROCTOR CATH RIGHT AWAY. MADE CHARGE NURSE AWARE. CHARGE NURSELEONIE CALLED SUBACUTE AND TALKED WITH CHARGE THERE ASHWIN. SINCE IT IS NOT URGENT PER CHARGE NURSES, SUBACUTE WILL CALL DOCTOR DERDERIAN FOR FURTHER INTERVENTION IN THE AM. WILL ENDORSE TO MORNING SHIFT RN.
--- NOTE | 2021-11-23 06:17 | NUR ---
SUBACUTE OVERFLOW TALKED WITH THE DAUGHTER AND INFORMED HER ABOUT THE G-TUBE DISLODGEMENT. DAUGHTER AWARE. WILL ENDORSE TO MORNING RN.
--- NOTE | 2021-11-23 07:26 | NUR ---
SUBACUTE RN NOTE REPORT GIVEN TO LIBAN FOR CONTINUITY OF CARE.
--- NOTE | 2021-11-23 07:30 | NUR ---
SUBACUTE OVERFLOW RN OPENING NOTE RECEIVED PATIENT IN BED, OBTUNDED WITH EYES CLOSED. NO S/SX OF ACUTE DISTRESS. VENT-DEPENDENT; TOLERATING SETTINGS WELL. SO SIGNS OF PAIN VIA FLACC SCALE. IV ACCESS XIOMARA PICC PATENT AND INTACT. RCW PERMACATH PATENT AND INTACT. PER BRUSH FABRICATION SUPERVISOR NURSE, G-TUBE WAS ACCIDENTALLY REMOVED; 30F PROCTOR CATHETER IN PLACE OF G-TUB SITE. SAFETY MEASURES IN PLACE WITH BED LOCKED AND LOW POSITION WITH SIDE RAILS UP X 2. WILL CONTINUE TO MONITOR THROUGHOUT SHIFT.
[2021-11-23 08:16] VITALS: BP 103/47
[2021-11-23] MEDS: MINERAL OIL/PETROLATUM,WHITE 120 GM JAR TP SCH ×2 (08:38→20:49)
[2021-11-23] MEDS: DORZOLAMIDE OPTH 2% 10 ML BOTTLE OP SCH ×2 (08:39→16:36)
[2021-11-23] MEDS: CHLORHEXIDINE GLUCONATE 15 ML UDC MM SCH ×2 (08:41→16:36)
[2021-11-23] MEDS: BACITRACIN/POLYMYXIN B 15 GM TUBE TP SCH (08:43)
[2021-11-23] MEDS: PHENOBARBITAL 30 MG TABLET GT SCH ×2 (08:52→16:31)
[2021-11-23] MEDS: PANTOPRAZOLE 40 MG/PACK PACK GT SCH (08:52)
[2021-11-23] MEDS: MIDODRINE HCL (5MG) 5 MG TABLET GT SCH (08:52)
[2021-11-23] MEDS: PROSOURCE / PROSTAT (PYXIS) 30 ML UDC GT SCH ×3 (08:52→16:31)
[2021-11-23] MEDS: ARGININE/GLUTAMINE/CALCIUM BMB 1 EACH POWD.PACK GT SCH (08:52)
[2021-11-23] MEDS: CHOLESTYRAMINE/ASPARTAME 4 G/PKT PACKET GT SCH ×2 (08:53→20:49)
[2021-11-23] MEDS: DAKINS HALF STRENGTH (0.25%) 480 ML BOTTLE TOP SCH (09:00)
--- NOTE | 2021-11-23 09:10 | NUR ---
RN NOTE SPOKE WITH DR. BETI BEACH; MADE AWARE G-TUBE WAS REMOVED AND 30F PROCTOR CATHETER WAS PLACED AT G-TUBE SITE. PER DR. BEACH, NURSE SHOULD PLACE BACK IN AND CHECK FOR PATENCY. WILL CLARIFY WITH CHARGE NURSE PROTOCOL.
--- NOTE | 2021-11-23 09:51 | NUR ---
RN NOTE NEW G-TUBE SIZE 22 REPLACED WITH CHARGE NURSE, SHANA THAPA. AMBREEN ORDERED STAT FOR PATENCY.
--- NOTE | 2021-11-23 09:54 | NUR ---
RN NOTE BS RECHECKED PER DAUGHTERS REQUEST. BS 128 AT THIS TIME.
[2021-11-23] MEDS ORDERED: DIATR MEGLU/DIATRIZOATE SODIUM 30 ML BOTTLE (GASTROGRAPHIN) ONE ×2 (10:07→15:00)
--- NOTE | 2021-11-23 12:11 | NUR ---
RN NOTE KUB RESULTS: There is no leak but there is a retrograde flow into the esophagus and no antegrade flow is seen. The lack of antegrade flow may be related to patient positioning. REINSERTED G-TUBE. ORDERED ADDITIONAL KUB FOR PATENCY CHECK PER DR. BEACH.
--- NOTE | 2021-11-23 13:14 | NUR ---
RN NOTE CALLED RADIOLOGY TO F/U REPEAT KUB. PER TECH, NO STAFF AVAILABLE UNTIL 1:30PM. WILL F/U.
[2021-11-23] MEDS ORDERED: KEY,NONCONTROL,TO KEEP IN PYXI 1 EA MC ONE (16:25)
[2021-11-23 16:38] VITALS: BP 113/52
--- NOTE | 2021-11-23 18:36 | NUR ---
SUBACUTE OVERFLOW RN CLOSING NOTE PT IN BED WITH DAUGHTER AT BEDSIDE. NO S/SX OF ACUTE DISTRESS. NO SIGNIFICANT CHANGE DURING SHIFT. ALL NEEDS MET. PT TOLERATING VENT SETTINGS WELL. G-TUBE PATENT AND INTACT WITH NEPRO RUNNING 45MLS/HR. SAFETY MEASURES IN PLACE WITH BED LOCKED AND LOW. SIDE RAILS UP X 2. WILL ENDORSE CONTINUITY OF CARE TO ONCOMING SHIFT.
--- NOTE | 2021-11-23 19:45 | NUR ---
RN OPENING NOTE PATIENT RESTING IN BED WITH EYES CLOSED, DAUGHTER AT BEDSIDE. PT NON-VERBAL AND OBTUNDED. PT ON MECHANICAL VENT AND TOLERATING WELL, NO S/S OF DISTRESS OR SOB NOTED, BREATHING EVEN AND UNLABORED. G TUBE IN PLACE AND RUNNING NEPRO @ 45 ML/HR, PT TOLERATING WELL. XIOMARA PICC LINE INTACT AND FLUSHING WELL. SAFETY MEASURES IN PLACE: CALL LIGHT WITHIN REACH, SIDE RAILS UP X 3, BED LOCKED IN LOW POSITION, BED ALARM ON, HOB ELEVATED. WILL CONTINUE TO MONITOR PATIENT
[2021-11-23 20:00] VITALS: BP 106/43
[2021-11-23] MEDS: LATANOPROST EYE DROP 0.005% 2.5 ML BOTTLE OP SCH (21:59)
[2021-11-24] MEDS: BLOOD SUGAR DIAGNOSTIC 1 EACH STRIP IN SCH ×5 (00:03→23:33)
[2021-11-24] MEDS: INSULIN REGULAR, HUMAN 100 UNIT/ML 3 ML VIAL SQ PRN ×4 (00:06→23:38)
[2021-11-24 00:30] VITALS: BP 119/50
[2021-11-24] MEDS: ACETAMINOPHEN 650 MG/20.3 ML UDC GT PRN (00:37)
--- NOTE | 2021-11-24 00:45 | NUR ---
RN NOTE PATIENT NOTED WITH TEMP OF 101.7. TYLENOL 650 MG GIVEN VIA GTUBE ORDERED. COOLING MEASURES PROVIDED. WILL CONTINUE TO MONITOR PATIENT
[2021-11-24] MEDS: IPRATROPIUM NEB FS 0.5 MG/2.5 ML AMPUL.NEB NEB SCH ×4 (02:02→19:30)
[2021-11-24 04:00] VITALS: BP 118/47
[2021-11-24] MEDS: METOCLOPRAMIDE HCL 10 MG/10 ML UDC GT SCH ×3 (05:00→21:11)
[2021-11-24] MEDS: PHENYTOIN SUSP UDC 100 MG/4 ML UDC GT SCH (05:01)
--- NOTE | 2021-11-24 06:58 | NUR ---
RN CLOSING NOTE PATIENT LAYING IN BED WITH EYES CLOSED, PT NON-VERBAL BUT ABLE TO OPEN EYES. PT ON VENT, NO S/S OF DISTRESS OR SOB NOTED, BREATHING EVEN AND UNLABORED, SPO2: 100%. PATIENT ON GTUBE FEEDING RUNNING NEPRO @ 45 ML/HR. MEDICATIONS GIVEN ORDERED, PT NEEDS MET THROUGHOUT SHIFT, SACRAL WOUND CARE DONE, PATIENT TURNED Q2H. SAFETY MEASURES IN PLACE: CALL LIGHT WITHIN REACH, SIDE RAILS UP X 3, HOB ELEVATED, BED LOCKED IN LOW POSITION, BED ALARM ON. WILL ENDORSE TO DAY SHIFT NURSE FOR CONTINUITY OF CARE
[2021-11-24 08:00] VITALS: BP 116/36
[2021-11-24] MEDS ORDERED: KEY,NONCONTROL,TO KEEP IN PYXI 1 EA MC ONE ×2 (08:34→17:51)
[2021-11-24] MEDS: PHENOBARBITAL 30 MG TABLET GT SCH ×2 (08:42→17:55)
[2021-11-24] MEDS: ARGININE/GLUTAMINE/CALCIUM BMB 1 EACH POWD.PACK GT SCH (08:42)
[2021-11-24] MEDS: CHLORHEXIDINE GLUCONATE 15 ML UDC MM SCH ×2 (08:42→17:47)
[2021-11-24] MEDS: PROSOURCE / PROSTAT (PYXIS) 30 ML UDC GT SCH ×3 (08:42→17:55)
[2021-11-24] MEDS: CHOLESTYRAMINE/ASPARTAME 4 G/PKT PACKET GT SCH ×2 (08:43→21:11)
[2021-11-24] MEDS: PANTOPRAZOLE 40 MG/PACK PACK GT SCH (08:43)
[2021-11-24] MEDS: MINERAL OIL/PETROLATUM,WHITE 120 GM JAR TP SCH ×2 (08:44→21:23)
[2021-11-24] MEDS: DORZOLAMIDE OPTH 2% 10 ML BOTTLE OP SCH ×2 (08:44→17:55)
[2021-11-24] MEDS: BACITRACIN/POLYMYXIN B 15 GM TUBE TP SCH (08:45)
[2021-11-24] MEDS: DAKINS HALF STRENGTH (0.25%) 480 ML BOTTLE TOP SCH (08:47)
[2021-11-24 10:00] VITALS: BP 116/36
[2021-11-24] MEDS: PHENYTOIN SODIUM IV 100 MG/2ML VIAL IV SCH ×2 (12:57→21:12)
[2021-11-24] MEDS: MIDODRINE HCL (5MG) 5 MG TABLET GT SCH (12:59)
--- NOTE | 2021-11-24 13:30 | NUR ---
RN NOTE PATIENT IS NOT IN ROOM, PATIENT WAS TAKEN FOR DIALYSIS.
--- NOTE | 2021-11-24 16:34 | NUR ---
new order received to increase current GTF rate.
--- NOTE | 2021-11-24 17:09 | NUR ---
RN NOTE PATIENT IS BACK IN HER ROOM FROM DIALYSIS, STABLE, WILL CONTINUE TO MONITOR.
[2021-11-24] MEDS: NEPRO 1,000 ML BOTTLE GT SCH (18:28)
--- NOTE | 2021-11-24 19:10 | NUR ---
RN NOTES LAB CALLED , PATIENT HAVE LACTIC ACID OF 2.2. DOCTOR WAS CALLED AT THE EPIC NUMBER, DOCTOR SAID NO NEW ORDER. CHARGE NURSE AWARE.
--- NOTE | 2021-11-24 19:30 | NUR ---
SA OVERFLOW RN OPENING NOTES RECEIVED PATIENT AWAKE IN BED RESTING, PATIENT IS OBTUNDED, ABLE TO OPEN EYES. NO S/S OF PAIN NOTED AT THIS TIME. PATIENT ON VENT, NO SOB OR S/S OF RESPIRATORY DISTRESS NOTED. IV ACCESS XIOMARA PICC LINE INTACT, PATENT AND FLUSHING WELL. G TUBE IN PLACE, NEPRO AT 50 ML/HR X18 HR. SAFETY PRECAUTIONS IN PLACE. BED IN LOWEST LOCKED POSITION, HOB ELEVATED, SIDE RAILS UP X3, AND CALL LIGHT AND TABLE WITHIN REACH. WILL CONTINUE WITH PLAN OF CARE.
[2021-11-24 20:00] VITALS: BP 100/48
[2021-11-24 21:05] LABS: BILIRUBIN,DIRECT 0.4 mg/dL (0.0-0.2); BILIRUBIN,TOTAL 0.6 mg/dL (0.2-1.0); CREATININE 2.1 mg/dL (0.6-1.3)
[2021-11-24] MEDS: LATANOPROST EYE DROP 0.005% 2.5 ML BOTTLE OP SCH (21:23)
[2021-11-24 22:00] VITALS: BP 100/48
--- NOTE | 2021-11-24 22:38 | NUR ---
RN NOTES LAB CALLED , PATIENT HAS LACTIC ACID OF 3.1. PSYCHIATRIC SECRETARY RAJIV WALDEN INFORMED. NO NEW ORDERS AT THIS TIME. CHARGE NURSE NOELLE INFORMED.
[2021-11-25] MEDS: IPRATROPIUM NEB FS 0.5 MG/2.5 ML AMPUL.NEB NEB SCH ×4 (02:02→19:57)
[2021-11-25] MEDS: PHENYTOIN SODIUM IV 100 MG/2ML VIAL IV SCH ×3 (04:28→21:15)
[2021-11-25] MEDS: METOCLOPRAMIDE HCL 10 MG/10 ML UDC GT SCH ×3 (04:28→21:14)
[2021-11-25] MEDS: BLOOD SUGAR DIAGNOSTIC 1 EACH STRIP IN SCH ×4 (05:10→23:58)
[2021-11-25] MEDS: INSULIN REGULAR, HUMAN 100 UNIT/ML 3 ML VIAL SQ PRN ×3 (05:13→17:35)
[2021-11-25 06:34] LABS: BASOPHILS # (AUTO) 0.1 K/uL (0.0-0.2); BASOPHILS % (AUTO) 0.5 % (0.0-2.0); EOSINOPHILS % (AUTO) 0.5 % (0.0-6.0); HEMATOCRIT 30 % (33-45); HEMOGLOBIN 9.5 g/dL (11.5-14.8); LYMPHOCYTES # (AUTO) 1.3 K/uL (0.8-4.8); LYMPHOCYTES % (AUTO) 8.1 % (20.0-44.0); MEAN CORPUSCULAR HGB CONC 32 g/dl (31.0-36.0); MEAN CORPUSCULAR VOLUME 97 fL (82-100); MONOCYTES # (AUTO) 1.8 K/uL (0.1-1.30); MONOCYTES % (AUTO) 10.9 % (2.0-12.0); PLATELET COUNT (AUTO) 330 K/uL (150-450); RED BLOOD CELL COUNT(AUTO) 3.08 MIL/uL (4.0-5.2); WHITE BLOOD COUNT (AUTO) 16.3 K/uL (4.3-11.0)
--- NOTE | 2021-11-25 06:48 | NUR ---
SA KIMBROUGH RN OPENING NOTES PATIENT AWAKE IN BED RESTING, PATIENT IS OBTUNDED, ABLE TO OPEN EYES. NO S/S OF PAIN NOTED AT THIS TIME. PATIENT ON VENT, NO SOB OR S/S OF RESPIRATORY DISTRESS NOTED. IV ACCESS XIOMARA PICC LINE INTACT, PATENT AND FLUSHING WELL. G TUBE IN PLACE, NEPRO AT 50 ML/HR X18 HR. ALL NEEDS MET AT THIS TIME. SAFETY PRECAUTIONS IN PLACE AT ALL TIMES. BED IN LOWEST LOCKED POSITION, HOB ELEVATED, SIDE RAILS UP X3, AND CALL LIGHT AND TABLE WITHIN REACH. WILL ENDORSE TO ONCOMING NURSE FOR OTIS. Addendum: 11/25/21 at 0649 by MARILY PAPPAS RN CLOSING NOTES
[2021-11-25 07:34] LABS: CALCIUM, SERUM 9.5 mg/dL (8.5-10.1); CARBON DIOXIDE 20 mmol/L (21-32); CHLORIDE 95 mmol/L (98-107); CREATININE 2.4 mg/dL (0.6-1.3); GLUCOSE 194 mg/dL (74-106); SODIUM SERUM 134 mmol/L (136-145)
[2021-11-25] MEDS: MIDODRINE HCL (5MG) 5 MG TABLET GT SCH (09:00)
[2021-11-25] MEDS: CHOLESTYRAMINE/ASPARTAME 4 G/PKT PACKET GT SCH ×2 (09:27→21:14)
[2021-11-25] MEDS: MINERAL OIL/PETROLATUM,WHITE 120 GM JAR TP SCH ×2 (09:32→21:17)
[2021-11-25] MEDS: CHLORHEXIDINE GLUCONATE 15 ML UDC MM SCH ×2 (09:32→17:06)
[2021-11-25] MEDS: PANTOPRAZOLE 40 MG/PACK PACK GT SCH (09:32)
[2021-11-25] MEDS: DAKINS HALF STRENGTH (0.25%) 480 ML BOTTLE TOP SCH (09:32)
[2021-11-25] MEDS: DORZOLAMIDE OPTH 2% 10 ML BOTTLE OP SCH ×2 (09:32→17:06)
[2021-11-25] MEDS: PROSOURCE / PROSTAT (PYXIS) 30 ML UDC GT SCH ×3 (09:33→17:06)
[2021-11-25] MEDS: BACITRACIN/POLYMYXIN B 15 GM TUBE TP SCH (09:33)
[2021-11-25] MEDS: ARGININE/GLUTAMINE/CALCIUM BMB 1 EACH POWD.PACK GT SCH (09:33)
[2021-11-25] MEDS ORDERED: KEY,NONCONTROL,TO KEEP IN PYXI 1 EA MC ONE ×2 (09:45→17:51)
[2021-11-25] MEDS: PHENOBARBITAL 30 MG TABLET GT SCH ×2 (09:48→17:00)
[2021-11-25 10:00] VITALS: BP 97/40
--- NOTE | 2021-11-25 10:00 | NUR ---
RN NOTES RECEIVED TWO CRITICAL LAB VALUES FROM LAB. BUN=92, POTASSIUM=2.7
[2021-11-25 10:01] LABS: POTASSIUM 2.7 mmol/L (3.5-5.1); UREA NITROGEN, BLOOD 92 mg/dL (7-18)
--- NOTE | 2021-11-25 10:15 | NUR ---
RN NOTES CHARGE NURSE ARCHANA AND DR. EDWARD MADE AWARE OF CRITICAL LAB VALUES. NEW ORDERS PROVIDED PER MD. WILL CARRY OUT ORDERS AND CONTINUE TO ASSESS PATIENT.
[2021-11-25] MEDS ORDERED: POTASSIUM CHLORIDE 20 MEQ POWDER PACKET GT ONE (11:30)
[2021-11-25 16:00] VITALS: BP 119/51
[2021-11-25] MEDS: ACETAMINOPHEN 650 MG/20.3 ML UDC GT PRN (17:11)
--- NOTE | 2021-11-25 19:30 | NUR ---
RN OPENING NOTES RECEIVED PATIENT IN BED RESTING, ALERT/OX0, PATIENT IS OBTUNDED, OPEN BOTH EYES. ON MECHANICAL VENT SETTING. IV ACCESS ON XIOMARA PICC INTACT AND PATENT. G TUBE IN PLACE, NEPRO AT 50 ML/HR X18 HR AND PT TOLERATED WELL. NO FACIAL GRIMACING NOTED. ALL SAFETY PRECAUTIONS IN PLACE. BED IN LOWEST POSITION AND LOCKED, HOB ELEVATED, SIDE RAILS UP X3, PLACE CALL LIGHT WITHIN REACH. FAMILY AT BEDSIDE. WILL CONTINUE TO MONITOR
[2021-11-25 20:00] VITALS: BP 97/44
[2021-11-25] MEDS: LATANOPROST EYE DROP 0.005% 2.5 ML BOTTLE OP SCH (21:18)
[2021-11-25 22:00] VITALS: BP 97/44
--- NOTE | 2021-11-26 00:01 | NUR ---
RN NOTES: BLOOD SUGAR 141, 2 UNITS OF REGULAR INSULIN GIVEN PER SLIDING SCALE. NO S/S OF HYPER/HYPOGLYCEMIA. WILL CONTINUE TO MONITOR
[2021-11-26] MEDS: IPRATROPIUM NEB FS 0.5 MG/2.5 ML AMPUL.NEB NEB SCH ×4 (01:16→20:18)
[2021-11-26] MEDS: NEPRO 1,000 ML BOTTLE GT SCH (01:55)
[2021-11-26] MEDS: METOCLOPRAMIDE HCL 10 MG/10 ML UDC GT SCH ×3 (05:15→21:31)
[2021-11-26] MEDS: PHENYTOIN SODIUM IV 100 MG/2ML VIAL IV SCH ×3 (05:15→21:31)
[2021-11-26] MEDS: BLOOD SUGAR DIAGNOSTIC 1 EACH STRIP IN SCH ×3 (05:16→18:45)
--- NOTE | 2021-11-26 06:49 | NUR ---
RN CLOSING NOTES PATIENT IN BED RESTING, ALERT/OX0, PATIENT IS OBTUNDED, OPEN BOTH EYES. ON MECHANICAL VENT SETTING AND PT TOLERATED WELL. IV ACCESS ON XIOMARA PICC INTACT AND PATENT. NO BLEEDING NOTED. G TUBE IN PLACE, NEPRO AT 50 ML/HR X18 HR AND PT TOLERATED WELL. NO FACIAL GRIMACING NOTED. AFEBRILE. ALL DUE MEDS GIVEN ORDERED. BLOOD SUGAR 129, NO COVERAGE NEEDED. ALL SAFETY PRECAUTIONS IN PLACE. BED IN LOWEST POSITION AND LOCKED, HOB ELEVATED, SIDE RAILS UP X3, PLACE CALL LIGHT WITHIN REACH. FAMILY AT BEDSIDE. WILL ENDORSE TO MORNING SHIFT NURSE.
[2021-11-26 08:00] VITALS: BP 105/46
--- NOTE | 2021-11-26 08:07 | NUR ---
RN OPENING NOTE Patient in bed with eyes closed. Patient is obtunded, non-verbal. On mechanical ventilator tolerating current settings well. IV access on XIOMARA PICC SL, intact and patent. RCW permcath in place. G-tube in place running Nepro at 50 cc/hr. Safety precautions in place: bed in low, locked position; siderails up x 2; call light within reach. Will continue to monitor.
[2021-11-26] MEDS ORDERED: KEY,NONCONTROL,TO KEEP IN PYXI 1 EA MC ONE ×2 (10:09→18:40)
[2021-11-26] MEDS: ARGININE/GLUTAMINE/CALCIUM BMB 1 EACH POWD.PACK GT SCH (10:13)
[2021-11-26] MEDS: PROSOURCE / PROSTAT (PYXIS) 30 ML UDC GT SCH ×3 (10:13→18:43)
[2021-11-26] MEDS: PHENOBARBITAL 30 MG TABLET GT SCH ×2 (10:13→18:43)
[2021-11-26] MEDS: PANTOPRAZOLE 40 MG/PACK PACK GT SCH (10:14)
[2021-11-26] MEDS: MIDODRINE HCL (5MG) 5 MG TABLET GT SCH (10:14)
[2021-11-26] MEDS: CHLORHEXIDINE GLUCONATE 15 ML UDC MM SCH ×2 (10:14→18:45)
[2021-11-26] MEDS: CHOLESTYRAMINE/ASPARTAME 4 G/PKT PACKET GT SCH ×2 (10:14→21:31)
[2021-11-26] MEDS: DAKINS HALF STRENGTH (0.25%) 480 ML BOTTLE TOP SCH (10:15)
[2021-11-26] MEDS: DORZOLAMIDE OPTH 2% 10 ML BOTTLE OP SCH ×2 (10:16→18:43)
[2021-11-26] MEDS: MINERAL OIL/PETROLATUM,WHITE 120 GM JAR TP SCH ×2 (10:16→21:32)
[2021-11-26] MEDS: BACITRACIN/POLYMYXIN B 15 GM TUBE TP SCH (10:16)
--- NOTE | 2021-11-26 11:00 | NUR ---
RN NOTE G-tube feeding turned off, will turn back on at 1700.
[2021-11-26] MEDS: INSULIN REGULAR, HUMAN 100 UNIT/ML 3 ML VIAL SQ PRN ×3 (12:22→18:52)
--- NOTE | 2021-11-26 13:30 | NUR ---
RN NOTE Patient brought to [facility] for Hemodialysis by EMT.
--- NOTE | 2021-11-26 16:30 | NUR ---
RN NOTE Patient brought back from Hemodialysis. VS as follows: BP 102/48; HR 82; RR 20; Temp 98.2.
[2021-11-26 17:00] VITALS: BP 102/48
--- NOTE | 2021-11-26 17:30 | NUR ---
RN NOTE G-tube feeding turned back on.
[2021-11-26] MEDS: EPOETIN ALFA-EPBX 4,000 UNIT/ML VIAL IV PRN (19:05)
--- NOTE | 2021-11-26 19:30 | NUR ---
RN CLOSING NOTE Patient in bed with eyes closed. Patient is obtunded, non-verbal. On mechanical ventilator tolerating current settings well. IV access on XIOMARA PICC SL, intact and patent. RCW permcath in place. G-tube in place running Nepro at 50 cc/hr. Patient kept clean and dry. Due meds given. Safety precautions in place: bed in low, locked position; siderails up x 2; call light within reach. Will endorse to maintenance technician 3rd shift nurse for OTIS.
[2021-11-26 20:00] VITALS: BP 114/37
--- NOTE | 2021-11-26 20:13 | NUR ---
MS OPENING NOTES: RECEIVED PATIENT SLEEP IN BED COMFORTABLY HOB AT 45 DEGREE NO COMPLAIN OF PAIN AND DISCOMFORT AT THIS TIME NO FACIAL GRIMACING WAS OBSERVED, PATIENT ON G TUBE FEEDING OF NEPRO 1.8@50CC PER HOUR INFUSING WELL, WITH XIOMARA PICC LINE SL, PATIENT ON MECHANICAL VENT SATURATING WELL. OBTUNDED WITH EYES OPENING, PATIENT KEPT CLEAN AND DRY ALL NEEDS MET WILL CONTINUE TO MONITOR.
[2021-11-26 20:15] VITALS: BP 101/43
[2021-11-26 22:11] VITALS: BP 101/43
[2021-11-26] MEDS: LATANOPROST EYE DROP 0.005% 2.5 ML BOTTLE OP SCH (22:17)
[2021-11-27] VITALS (7 sets, daily range): BP systolic 104–142; BP diastolic 42–78
[2021-11-27] MEDS: INSULIN REGULAR, HUMAN 100 UNIT/ML 3 ML VIAL SQ PRN ×4 (00:19→17:03)
[2021-11-27] MEDS: BLOOD SUGAR DIAGNOSTIC 1 EACH STRIP IN SCH ×4 (00:20→17:01)
[2021-11-27] MEDS: IPRATROPIUM NEB FS 0.5 MG/2.5 ML AMPUL.NEB NEB SCH ×5 (00:47→20:23)
[2021-11-27] MEDS: PHENYTOIN SODIUM IV 100 MG/2ML VIAL IV SCH ×3 (05:05→21:30)
[2021-11-27] MEDS: METOCLOPRAMIDE HCL 10 MG/10 ML UDC GT SCH ×3 (05:06→21:29)
[2021-11-27] MEDS: NEPRO 1,000 ML BOTTLE GT SCH (05:36)
--- NOTE | 2021-11-27 06:33 | NUR ---
MS RN CLOSING NOTES:- PATIENT SLEEP IN BED COMFORTABLY, AROUSABLE TO TACTILE STIMULI, OBTUNDED AND OPEN EYES, PATIENT, ON GTUBE FEEDING OF NEPRO 1.8 @50CC PER HOUR, WITH IV LINE AT XIOMARA PICC LINE SL,HOB AT 45 DEGREE ON MECHANICAL VENT SATURATING WELL, PATIENT ON PROCTOR CAT6H AT 800 CC URINE OUTPUT CLEAR YELLOW COLOR, PATIENT KEPT CLEAN AND DRY, SACRAL DRESSING CHANGE, ALL NEEDS MET, ENDORSE TO INCOMING SHIFT.
--- NOTE | 2021-11-27 07:20 | NUR ---
RN OPENING NOTES RECEIVED PATIENT IN BED, ASLEEP. REMAINS ON TRACH/VENT WITH CURRENT SETTINGS TOLERATED WELL. HOB ELEVATED AT ALL TIMES, ASPIRATION PRECAUTIONS OBSERVED. WITH PICC LINE ON XIOMARA, INTACT AND PATENT, SL. RCW PERMACATH INTACT AND PATENT. WITH GTUBE INTACT AND PATENT, FEEDING OF NEPRO @50ML/HR RUNNING, TOLERATING WELL. SAFETY MEASURES IN PLACE. BED LOCKED AND IN LOWEST POSITION, SR UP, CALL LIGHT PLACED WITHIN EASY REACH. WILL CONTINUE TO MONITOR.
[2021-11-27] MEDS: PROSOURCE / PROSTAT (PYXIS) 30 ML UDC GT SCH ×3 (08:33→16:25)
[2021-11-27] MEDS: CHOLESTYRAMINE/ASPARTAME 4 G/PKT PACKET GT SCH ×2 (08:33→21:28)
[2021-11-27] MEDS: PHENOBARBITAL 30 MG TABLET GT SCH ×2 (08:33→16:24)
[2021-11-27] MEDS: ARGININE/GLUTAMINE/CALCIUM BMB 1 EACH POWD.PACK GT SCH (08:33)
[2021-11-27] MEDS: CHLORHEXIDINE GLUCONATE 15 ML UDC MM SCH ×2 (08:33→16:26)
[2021-11-27] MEDS: PANTOPRAZOLE 40 MG/PACK PACK GT SCH (08:34)
[2021-11-27] MEDS: MIDODRINE HCL (5MG) 5 MG TABLET GT SCH (08:34)
[2021-11-27] MEDS: DORZOLAMIDE OPTH 2% 10 ML BOTTLE OP SCH ×2 (08:35→16:26)
[2021-11-27] MEDS: DAKINS HALF STRENGTH (0.25%) 480 ML BOTTLE TOP SCH (08:36)
[2021-11-27] MEDS: MINERAL OIL/PETROLATUM,WHITE 120 GM JAR TP SCH ×2 (08:36→21:30)
[2021-11-27] MEDS: BACITRACIN/POLYMYXIN B 15 GM TUBE TP SCH (08:37)
--- NOTE | 2021-11-27 14:14 | NUR ---
Latest Visitation Guidelines & Facility Update: VOLODYMYR emailed the pt.'s responsible libertarian, Art. via email that, " Facility Update: A [facility] employee tested positive for COVID-19 this week. Residents and staff will continue receiving response testing. We will continue to implement [facility] infection control protocols and continue screening employees before every shift. [facility] continues to follow infection control protocols and screen our residents and staff daily for symptoms". and updated family on the latest visitation guidelines and encouraged families to get COVID Booster. Addendum: 12/02/21 at 1247 by HARIKA HELM Correction: " Facility Update: No [facility] employee tested positive for COVID-19 this week. Residents and staff will continue receiving response testing. We will continue to implement [facility] infection control protocols and continue screening employees before every shift. [facility] continues to follow infection control protocols and screen our residents and staff daily for symptoms".
--- NOTE | 2021-11-27 18:51 | NUR ---
RN CLOSING NOTES PATIENT RESTING IN BED. NO SIGNS OF ACUTE DISTRESS NOTED. REMAINS ON MECHANICAL VENT WITH CURRENT SETTINGS: AC 14, TV 500, FIO2 30%, PEEP 5. NO SOB NOTED. SATURATION @100%. WITH PICC LINE ON XIOMARA, INTACT AND PATENT, SL. RCW PERMACATH INTACT AND PATENT, NO SIGNS OF BLEEDING NOTED. WITH G-TUBE INTACT AND PATENT, FEEDING OF NEPRO @50ML/HR RUNNING, TOLERATED WELL. ALL DUE MEDS GIVEN. HOB ELEVATED AT ALL TIMES, ASPIRATION PRECAUTIONS OBSERVED. SAFETY MEASURES IN PLACE. BED LOCKED AND IN LOWEST POSITION, SR UP, CALL LIGHT PLACED WITHIN EASY REACH. WILL ENDORSE TO NEXT SHIFT.
--- NOTE | 2021-11-27 20:01 | NUR ---
RN OPENING NOTES: RECEIVED PATIENT SLEEP IN BED ACCOMPANIED BY DAUGHTER, AROUSABLE TO TACTILE STIMULI, BED IN LOW POSITION CALL LIGHTS WITHIN REACH, NO FACIAL GRIMACING WAS OBSERVED, ON MECHANICAL VENT SATURATING WELL, HOB AT 45 DEGREE ON G TUBE FEEDING OF NEPRO 1.8@50ML PER HOUR INFUSING WELL, WITH XIOMARA PICC LINE SALINE LOCK, PATIENT CLEAN AND DRESSING CHANGE, ON DIALYSIS SCHEDULE TOMM. PATIENT KEPT CLEAN AND DRY ALL NEEDS MET WILL CONTINUE TO MONITOR
[2021-11-27] MEDS: LATANOPROST EYE DROP 0.005% 2.5 ML BOTTLE OP SCH (21:31)
--- NOTE | 2021-11-28 00:02 | NUR ---
RN NOTES: BS-126 NO INSULIN GIVEN PER SLIDING SCALE.
[2021-11-28 00:29] VITALS: BP 136/63
[2021-11-28] MEDS: IPRATROPIUM NEB FS 0.5 MG/2.5 ML AMPUL.NEB NEB SCH ×4 (02:24→19:32)
[2021-11-28 04:00] VITALS: BP 154/66
[2021-11-28] MEDS: PHENYTOIN SODIUM IV 100 MG/2ML VIAL IV SCH ×3 (05:43→20:47)
[2021-11-28] MEDS: METOCLOPRAMIDE HCL 10 MG/10 ML UDC GT SCH ×3 (05:43→20:47)
[2021-11-28] MEDS: BLOOD SUGAR DIAGNOSTIC 1 EACH STRIP IN SCH ×5 (06:00→23:59)
--- NOTE | 2021-11-28 06:03 | NUR ---
RN NOTES: BS-143 NO INSULIN GIVEN -PATIENT ON SCHEDULE DIALYSIS TODAY IN AM
--- NOTE | 2021-11-28 06:24 | NUR ---
MS RN CLOSING NOTES: PATIENT SLEEP IN BED COMFORTABLY, AROUSABLE TO TACTILE STIMULI, BED IN LOW POSITION, CALL LIGHTS WITHIN REACH, PT IS OBTUNDED OPEN EYES, ON NPO GTUBE FEEDING OF NEPRO 1.8@ 50 ML PER HOUR NO COMPLAIN OF PAIN AND DISCOMFORT AT THIS TIME, ON MECHANICAL VENT SATURATING WELL, WITH XIOMARA PICC LINE AND RCW PERMA CATHNO BLEEDING WAS OBSERVED, HOB AT 45 DEGREE ASPIRATION PRECAUTION, PATIENT KEPT CLEAN AND DRY ALL NEED MET, ENDORSE TO INCOMING SHIFT.
[2021-11-28 06:44] VITALS: BP 102/53
--- NOTE | 2021-11-28 07:35 | NUR ---
ms rn received on bed, non verbal patient ,vent dependent, adequate saturation noted, no sob,no s/s of pain at this time, noted to have a huge sacral decub, dressing intact, repositioned for comfort,all needs attended.
[2021-11-28 08:00] VITALS: BP 102/45
[2021-11-28 08:28] VITALS: BP 102/45
--- NOTE | 2021-11-28 10:00 | NUR ---
ms rn due meds given, via g tube,tolerated well w/o residual,all needs attended.
[2021-11-28] MEDS: MINERAL OIL/PETROLATUM,WHITE 120 GM JAR TP SCH ×2 (10:24→20:48)
[2021-11-28] MEDS: CHLORHEXIDINE GLUCONATE 15 ML UDC MM SCH ×2 (10:25→17:00)
[2021-11-28] MEDS: PANTOPRAZOLE 40 MG/PACK PACK GT SCH (10:25)
[2021-11-28] MEDS: CHOLESTYRAMINE/ASPARTAME 4 G/PKT PACKET GT SCH ×2 (10:25→20:47)
[2021-11-28] MEDS: PHENOBARBITAL 30 MG TABLET GT SCH ×2 (10:26→18:38)
[2021-11-28] MEDS: MIDODRINE HCL (5MG) 5 MG TABLET GT SCH (10:26)
[2021-11-28] MEDS: ARGININE/GLUTAMINE/CALCIUM BMB 1 EACH POWD.PACK GT SCH (10:27)
[2021-11-28] MEDS: PROSOURCE / PROSTAT (PYXIS) 30 ML UDC GT SCH ×3 (10:27→17:00)
[2021-11-28] MEDS: DORZOLAMIDE OPTH 2% 10 ML BOTTLE OP SCH ×2 (10:28→18:38)
[2021-11-28] MEDS: BACITRACIN/POLYMYXIN B 15 GM TUBE TP SCH (10:28)
[2021-11-28] MEDS: DAKINS HALF STRENGTH (0.25%) 480 ML BOTTLE TOP SCH (10:28)
--- NOTE | 2021-11-28 11:30 | NUR ---
ms rn bs- 199 - coverage not given, patient will be off feeding for hd, and patient has hx of hypoglycemia, will monitor patient, daughter is aware.
--- NOTE | 2021-11-28 12:00 | NUR ---
ms rn patient will have hd today, albumin given,for b/p support.
[2021-11-28] MEDS: ALBUMIN 25% 25 GM in PREMIX 1 EA IV PRN (13:00)
--- NOTE | 2021-11-28 13:55 | NUR ---
ms rn patient went for hd via ambulance, v/s stable, no s/s of distress, daughter at bed side.
--- NOTE | 2021-11-28 18:30 | NUR ---
ms rn patient came back from hd, due meds given, some meds not available left message to sub acute to bring meds.bs - 147 - daughter refused insulin due to hx of hypoglycemia,all needs attended.
--- NOTE | 2021-11-28 19:35 | NUR ---
RN OPENING NOTES RECEIVED PATIENT RESTING IN BED. A/O X 0, OBTUNDED. PATIENT ON MECH. VENT. TOLERATING SETTINGS WELL. NO SIGNS OR SYMPTOMS OF DISTRESS NOTED AT THIS TIME. NO COMPLAINS OF PAIN OR DISCOMFORT AT THIS TIME. G-TUBE INFUSING NEPRO 1.8 @ 50 CC/HR, TOLERATED WELL. IV ACCESS XIOMARA PICC LINE SL. IV ACCESS PATENT AND INTACT. SAFETY PRECAUTIONS ENFORCED WITH BED LOCKED AND AT LOWEST POSITION. SIDERAILS UP X2. CALL LIGHT WITHIN REACH AT ALL TIMES. WILL CONTINUE TO MONITOR PATIENT.
[2021-11-28 20:00] VITALS: BP 120/52
[2021-11-28] MEDS: LATANOPROST EYE DROP 0.005% 2.5 ML BOTTLE OP SCH (22:30)
[2021-11-29] MEDS: INSULIN REGULAR, HUMAN 100 UNIT/ML 3 ML VIAL SQ PRN ×3 (00:11→23:56)
[2021-11-29] MEDS: IPRATROPIUM NEB FS 0.5 MG/2.5 ML AMPUL.NEB NEB SCH ×4 (00:32→19:03)
[2021-11-29] MEDS: METOCLOPRAMIDE HCL 10 MG/10 ML UDC GT SCH ×3 (04:09→20:47)
[2021-11-29] MEDS: PHENYTOIN SODIUM IV 100 MG/2ML VIAL IV SCH ×3 (04:10→20:48)
--- NOTE | 2021-11-29 04:30 | NUR ---
RN NOTES CHECKED PATIENT'S BLOOD SUGAR IT WAS 60. INITIATED PROTOCOL GAVE ORANGE JUICE THROUGH G-TUBE. WILL CONTINUE TO MONITOR PATIENT.
--- NOTE | 2021-11-29 04:45 | NUR ---
RN NOTES RECHECKED PATIENT'S BLOOD SUGAR IT WAS 94. NO SIGNS AND SYMPTOMS OF HYPOGLYCEMIA. WILL CONTINUE TO MONITOR PATIENT.
[2021-11-29] MEDS: BLOOD SUGAR DIAGNOSTIC 1 EACH STRIP IN SCH ×4 (06:17→23:59)
--- NOTE | 2021-11-29 06:55 | NUR ---
RN CLOSING NOTES PATIENT STILL RESTING IN BED. A/O X 0, OBTUNDED. PATIENT ON MECH. VENT. TOLERATING SETTINGS WELL. NO SIGNS OR SYMPTOMS OF DISTRESS NOTED AT THIS TIME. NO COMPLAINS OF PAIN OR DISCOMFORT AT THIS TIME. G-TUBE INFUSING NEPRO 1.8 @ 50 CC/HR, TOLERATED WELL. IV ACCESS XIOMARA PICC LINE SL. IV ACCESS PATENT AND INTACT. SAFETY PRECAUTIONS ENFORCED WITH BED LOCKED AND AT LOWEST POSITION. SIDERAILS UP X2. CALL LIGHT WITHIN REACH AT ALL TIMES. WILL ENDORSE CONTINUITY OF CARE TO DAY SHIFT NURSE.
--- NOTE | 2021-11-29 07:42 | NUR ---
SUBACUTE OVERFLOW RN OPENING NOTE RECEIVED PATIENT IN BED, OBTUNDED WITH EYES CLOSED. NO S/SX OF ACUTE DISTRESS. VENT-DEPENDENT; TOLERATING SETTINGS WELL. SO SIGNS OF PAIN VIA FLACC SCALE. IV ACCESS XIOMARA PICC PATENT AND INTACT. RCW PERMACATH PATENT AND INTACT. PER BRANDS EDITOR NURSE, G-TUBE WAS ACCIDENTALLY REMOVED; 30F PROCTOR CATHETER IN PLACE OF G-TUB SITE. SAFETY MEASURES IN PLACE WITH BED LOCKED AND LOW POSITION WITH SIDE RAILS UP X 2. WILL CONTINUE TO MONITOR THROUGHOUT SHIFT.
[2021-11-29] MEDS: DORZOLAMIDE OPTH 2% 10 ML BOTTLE OP SCH ×2 (08:21→16:32)
[2021-11-29] MEDS: DAKINS HALF STRENGTH (0.25%) 480 ML BOTTLE TOP SCH (08:21)
[2021-11-29] MEDS: MINERAL OIL/PETROLATUM,WHITE 120 GM JAR TP SCH ×2 (08:22→21:12)
[2021-11-29] MEDS: CHLORHEXIDINE GLUCONATE 15 ML UDC MM SCH ×2 (08:22→16:30)
[2021-11-29] MEDS: BACITRACIN/POLYMYXIN B 15 GM TUBE TP SCH (08:22)
[2021-11-29] MEDS: PANTOPRAZOLE 40 MG/PACK PACK GT SCH (08:23)
[2021-11-29] MEDS: CHOLESTYRAMINE/ASPARTAME 4 G/PKT PACKET GT SCH ×2 (08:23→20:47)
[2021-11-29] MEDS: MIDODRINE HCL (5MG) 5 MG TABLET GT SCH (08:24)
[2021-11-29] MEDS ORDERED: KEY,NONCONTROL,TO KEEP IN PYXI 1 EA MC ONE ×2 (08:27→16:25)
[2021-11-29] MEDS: PHENOBARBITAL 30 MG TABLET GT SCH ×2 (08:29→16:30)
[2021-11-29] MEDS: ARGININE/GLUTAMINE/CALCIUM BMB 1 EACH POWD.PACK GT SCH (08:30)
[2021-11-29] MEDS: PROSOURCE / PROSTAT (PYXIS) 30 ML UDC GT SCH ×3 (08:34→16:31)
[2021-11-29 08:47] VITALS: BP 106/49
--- NOTE | 2021-11-29 15:00 | NUR ---
RN NOTE ELEVATED TEMP 100.9F ADMINISTERED TYLENOL 650MG LIQUID VIA G-TUBE. COOLING MEASURES GIVEN. WILL RETAKE TEMP. AFTER 30 MINS
--- NOTE | 2021-11-29 16:00 | NUR ---
RN NOTE TEMP DECREASED TO 99.9. MORE COOLING MEASURES GIVEN.
[2021-11-29 16:03] VITALS: BP 99/41
[2021-11-29 20:00] VITALS: BP 125/54
[2021-11-29] MEDS: LATANOPROST EYE DROP 0.005% 2.5 ML BOTTLE OP SCH (21:12)
[2021-11-30] VITALS: BP 117/76
[2021-11-30] MEDS: IPRATROPIUM NEB FS 0.5 MG/2.5 ML AMPUL.NEB NEB SCH ×4 (02:04→20:12)
[2021-11-30 04:00] VITALS: BP 105/48
[2021-11-30] MEDS: ACETAMINOPHEN 650 MG/20.3 ML UDC GT PRN ×2 (04:32→16:15)
[2021-11-30] MEDS: METOCLOPRAMIDE HCL 10 MG/10 ML UDC GT SCH ×3 (04:35→20:23)
[2021-11-30] MEDS: PHENYTOIN SODIUM IV 100 MG/2ML VIAL IV SCH ×3 (04:35→20:23)
[2021-11-30] MEDS: INSULIN REGULAR, HUMAN 100 UNIT/ML 3 ML VIAL SQ PRN ×3 (06:17→17:23)
--- NOTE | 2021-11-30 06:22 | NUR ---
New open area to back. wound care consult ordered. Picture taken put in chart.
[2021-11-30] MEDS: BLOOD SUGAR DIAGNOSTIC 1 EACH STRIP IN SCH ×3 (06:35→17:23)
--- NOTE | 2021-11-30 06:47 | NUR ---
Patient is responsive to pain only, but does twitch eyes and move mouth occasionally. Tolerated feeding well. No residual. Turned q2h. Kept clean and dry. Updated wound pictures taken and put in chart -wound care provided. XIOMARA PICC line patent and flushed. RCW permacath intact. Had 100.9 fever at 0400 but with cool bed bath and tylenol temp went down to 98.0 by 0500. Currently resting in bed Saturating well.
--- NOTE | 2021-11-30 07:24 | NUR ---
RN OPENING NOTES RECEIVED PATIENT IN BED AWAKE IN NO ACUTE SIGNS OF DISTRESS. HOB ELEVATED. PT IS OBTUNDED AND OPEN EYES WITH TRACH PORTEX #7 CONNECTED TO MECH VENT AT PRESCRIBED SETTINGS, TOLERATING CURRENT SETTINGS WITH NO SOB NOTED. PICC LINE ON XIOMARA, INTACT AND PATENT. RCW PERMACATH INTACT WITH DRESSING C/D/I. G-TUBE IN PLACE AND PATENT, FEEDING OF NEPRO @50ML/HR RUNNING, TOLERATING WELL. ASPIRATIONS PRECAUTIONS MAINTAINED. SAFETY MEASURES IN PLACED: BED LOCKED AND IN LOWEST POSITION, SR UP X3, CALL LIGHT WITHIN EASY REACH. WILL CONTINUE TO MONITOR PT.
--- NOTE | 2021-11-30 07:32 | NUR ---
WOUND CARE CONSULT: PT SEEN FOR MULTIPLE WOUNDS AND SKIN ISSUES. PT HAS SACRAL STAGE 4 ULCER, PRESENT ON ADMISSION WHICH MEASURES 12CM X 24CM X 3CM WITH BROWN NECROTIC TISSUE AND SOME RED GRANULATION TISSUE IN CENTER, MILD ODOR AND PURULENT DRAINAGE. DAKINS PACKING RECOMMENDED AND DISCUSSED WITH NURSING STAFF. RECOMMEND SURGICAL CONSULT AND DEBRIDEMENT. DR HE NOTIFIED. PT ALSO NOTED TO HAVE AREA OF DISCOLORATION TO LEFT EAR WHICH IS BROWN/BLACK IN COLOR, MEASURING 2.5CM X 1.5CM X UTD, NO DRAINAGE. PROTECT WITH FOAM DRESSING. THERE IS DISCOLORATION OVER SCARRING TO RT LATERAL KNEE, SCARRING TO LEFT LATERAL KNEE, DISCOLORATION OVER SCARRING TO LEFT UPPER BACK, NO DRAINAGE AND RT BUTTOCK DISCOLORATION OVER SCARRING. ALL AREAS ARE PROTECTED WITH FOAM DRESSING. 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 DUE TO MULTIPLE CO-MORBIDITIES, FURTHER SKIN BREAKDOWN MAY BE UNAVOIDABLE. SURGICAL CONSULT CALLED TO DR HE. DISCUSSED WITH NURSING STAFF, TAKE DOWN SORTER AND PROFESSIONAL SKATEBOARDER. IN AGREEMENT WITH PLAN OF CARE. Addendum: 11/30/21 at 0742 by BYRON BOUCHERU ADDITIONAL: LEFT UPPER BACK ABRASION OVER SCARRING MEASURES 3CM X 3CM X 0.1CM WITHOUT DRAINAGE. AREA IS PROTECTED WITH FOAM DRESSING.
[2021-11-30] MEDS: PANTOPRAZOLE 40 MG/PACK PACK GT SCH (08:31)
[2021-11-30] MEDS: ARGININE/GLUTAMINE/CALCIUM BMB 1 EACH POWD.PACK GT SCH (08:31)
[2021-11-30] MEDS: MIDODRINE HCL (5MG) 5 MG TABLET GT SCH (08:31)
[2021-11-30] MEDS: CHOLESTYRAMINE/ASPARTAME 4 G/PKT PACKET GT SCH ×2 (08:32→20:23)
[2021-11-30] MEDS: CHLORHEXIDINE GLUCONATE 15 ML UDC MM SCH ×2 (08:32→16:14)
[2021-11-30] MEDS: PROSOURCE / PROSTAT (PYXIS) 30 ML UDC GT SCH ×3 (08:33→16:15)
[2021-11-30] MEDS: PHENOBARBITAL 30 MG TABLET GT SCH ×2 (08:38→16:14)
[2021-11-30 08:39] VITALS: BP_SYST 97; BP_DIAS 34; BP_DIAS 46
[2021-11-30] MEDS: DAKINS HALF STRENGTH (0.25%) 480 ML BOTTLE TOP SCH (08:39)
[2021-11-30] MEDS: DORZOLAMIDE OPTH 2% 10 ML BOTTLE OP SCH ×2 (08:39→16:16)
[2021-11-30] MEDS: MINERAL OIL/PETROLATUM,WHITE 120 GM JAR TP SCH ×2 (08:39→20:23)
[2021-11-30] MEDS: BACITRACIN/POLYMYXIN B 15 GM TUBE TP SCH (08:40)
--- NOTE | 2021-11-30 12:48 | NUR ---
Family Meeting: SW called the pt.'s son, Art [phone] and left voicemail regarding family meeting to discuss care plan. SW left call back number. SW will follow up as needed.
--- NOTE | 2021-11-30 15:10 | NUR ---
Family Meeting: Meeting has been arranged for 5 :30pm with the pt.'s son, Jake possibly the patient's sister, Charlotte and DR. Garcia, staff mine warfare officer and Vinicio GEORGE as well as [facility] Director. All parties are agreeable and have been provided with conference call number. The pt.'s son Jake stated that the pt. is not receiving Albumin medication prior to dialysis. VOLODYMYR discussed with pt.'s nurse, Corey and he stated the will update the report for this pt. so that the medication is being given prior to dialysis. Per Art's request VOLODMYYR also called the firestopper installer's office and left voicemail that he would like to get in contact with [facility].
[2021-11-30 16:12] VITALS: BP 126/46
--- NOTE | 2021-11-30 16:34 | NUR ---
RN NOTES PT NOTED WITH ELEVATED TEMP OF 100.7F. PRN TYLENOL 650MG/20.4ML ADMINISTERED VIA G-TUBE- AT 1615. COOLING MEASURES DONE. WILL CONTINUE TO MONITOR PT.
--- NOTE | 2021-11-30 17:56 | NUR ---
RN NOTES BLOOD CULTURED COLLECTED BY THIRD HAND. SPUTUM SPECIMEN FOR CULTURE COLLECTED BY RT. URINE SPECIMEN FOR URINALYSIS AND CULTURE COLLECTED. CALLED LAB TO PICK-UP SPECIMENS.
[2021-11-30 18:34] LABS: BILIRUBIN,URINE SMALL (NEGATIVE); COLOR,URINE YELLOW (YELLOW); LEUKOCYTE ESTERASE ,URINE MODERATE (NEGATIVE); NITRITE, URINE POSITIVE (NEGATIVE); PROTEIN,URINE >=300 mg/dl (NEGATIVE); UGLUCOSE NEGATIVE (NEGATIVE); UROBILINOGEN,URINE 0.2 EU/dL (0.2)
--- NOTE | 2021-11-30 18:34 | NUR ---
SUB-ACUTE OVERFLOW RN CLOSING NOTES PATIENT IN BED LYING AT MODERATE HIGH BACKREST POSITION WITH DAUGHTER AT BEDSIDE. PT IS OBTUNDED AND OPEN EYES TO TACTILE AND PAIN STIMULI. PT WITH TRACH PORTEX #7 CONNECTED TO MECH VENT AT PRESCRIBED SETTINGS, TOLERATING CURRENT SETTINGS WELL WITH NO SOB NOTED. PICC LINE ON XIOMARA, INTACT AND PATENT. RCW PERMACATH INTACT WITH DRESSING C/D/I. G-TUBE IN PLACE AND PATENT, FEEDING OF NEPRO @50ML/HR IN PROGRESS, TOLERATING WELL. ASPIRATIONS PRECAUTIONS MAINTAINED. PT TURNED AND REPOSITIONED Q 2HRS AND PRN. KEPT CLEAN, DRY AND COMFORTABLE AT ALL TIMES. ALL NEEDS AND CARE PROVIDED WELL. SAFETY MEASURES IN PLACED: HOB KEPT ELEVATED AT ALL TIMES, BED LOCKED AND IN LOWEST POSITION, SR UP X3, CALL LIGHT WITHIN EASY REACH. WILL ENDORSE OTIS TO UTILITY FORESTER NURSE.
[2021-11-30 18:48] LABS: BACTERIA,URINE 3+ /HPF (None Seen); RBC,URINE 21-50 /HPF (0-2); SQUAMOUS EPITHELIAL CELL,UR 0-2 /HPF (None Seen); WBC,URINE 51-80 /HPF (0-3)
--- NOTE | 2021-11-30 19:45 | NUR ---
SUB-ACUTE OVERFLOW RN OPENING NOTES PATIENT IN BED LYING AT MODERATE HIGH BACKREST POSITION WITH DAUGHTER AT BEDSIDE. PT IS OBTUNDED AND OPEN EYES TO TACTILE AND PAIN STIMULI. PT WITH TRACH PORTEX #7 CONNECTED TO MECH VENT AT PRESCRIBED SETTINGS, TOLERATING CURRENT SETTINGS WELL WITH NO SOB NOTED. PICC LINE ON XIOMARA, INTACT AND PATENT. RCW PERMACATH INTACT WITH DRESSING C/D/I. G-TUBE IN PLACE AND PATENT, FEEDING OF NEPRO @50ML/HR IN PROGRESS, TOLERATING WELL. ASPIRATIONS PRECAUTIONS MAINTAINED. PT TURNED AND REPOSITIONED Q 2HRS AND PRN. KEPT CLEAN, DRY AND COMFORTABLE AT ALL TIMES. ALL NEEDS AND CARE PROVIDED WELL. SAFETY MEASURES IN PLACED: HOB KEPT ELEVATED AT ALL TIMES, BED LOCKED AND IN LOWEST POSITION, SR UP X3, CALL LIGHT WITHIN EASY REACH. WILL CONTINUE TO MONITOR.
[2021-11-30] MEDS: MIDODRINE HCL (5MG) 5 MG TABLET GT PRN (19:54)
[2021-11-30 20:00] VITALS: BP 96/42
[2021-11-30] MEDS: LATANOPROST EYE DROP 0.005% 2.5 ML BOTTLE OP SCH (21:39)
--- NOTE | 2021-11-30 22:24 | NUR ---
SUB-ACUTE OVERFLOW RN CLOSING NOTES PT BLOOS PRESSURE BELOW 90 PRN MIDRODRINE GIVEN. WILL CONTINUE TO MONITOR.
[2021-12-01] VITALS (7 sets, daily range): BP systolic 94–128; BP diastolic 47–75
[2021-12-01] MEDS: BLOOD SUGAR DIAGNOSTIC 1 EACH STRIP IN SCH ×4 (00:03→17:33)
[2021-12-01] MEDS: INSULIN REGULAR, HUMAN 100 UNIT/ML 3 ML VIAL SQ PRN ×3 (00:05→17:52)
[2021-12-01] MEDS: ACETAMINOPHEN 650 MG/20.3 ML UDC GT PRN ×3 (00:54→21:55)
[2021-12-01] MEDS: IPRATROPIUM NEB FS 0.5 MG/2.5 ML AMPUL.NEB NEB SCH ×4 (02:08→20:31)
[2021-12-01] MEDS: METOCLOPRAMIDE HCL 10 MG/10 ML UDC GT SCH ×3 (04:47→21:54)
[2021-12-01] MEDS: PHENYTOIN SODIUM IV 100 MG/2ML VIAL IV SCH ×3 (04:47→21:55)
[2021-12-01 07:09] LABS: CALCIUM, SERUM 8.9 mg/dL (8.5-10.1); CARBON DIOXIDE 20 mmol/L (21-32); CHLORIDE 99 mmol/L (98-107); CREATININE 2.1 mg/dL (0.6-1.3); GLUCOSE 139 mg/dL (74-106); POTASSIUM 3.6 mmol/L (3.5-5.1); SODIUM SERUM 135 mmol/L (136-145)
[2021-12-01 07:48] LABS: BASOPHILS # (AUTO) 0.1 K/uL (0.0-0.2); BASOPHILS % (AUTO) 0.3 % (0.0-2.0); EOSINOPHILS % (AUTO) 0.4 % (0.0-6.0); HEMATOCRIT 29 % (33-45); LYMPHOCYTES # (AUTO) 2.1 K/uL (0.8-4.8); LYMPHOCYTES % (AUTO) 9.7 % (20.0-44.0); MEAN CORPUSCULAR HGB CONC 31 g/dl (31.0-36.0); MEAN CORPUSCULAR VOLUME 97 fL (82-100); MONOCYTES # (AUTO) 2.1 K/uL (0.1-1.30); MONOCYTES % (AUTO) 9.3 % (2.0-12.0); NEUTROPHILS # (AUTO) 17.8 K/uL (1.8-8.9); NEUTROPHILS % (AUTO) 80.3 % (43.0-81.0); PLATELET COUNT (AUTO) 274 K/uL (150-450); RED BLOOD CELL COUNT(AUTO) 3.01 MIL/uL (4.0-5.2); WHITE BLOOD COUNT (AUTO) 22.1 K/uL (4.3-11.0)
--- NOTE | 2021-12-01 08:04 | NUR ---
SUB-ACUTE OVERFLOW RN CLOSING NOTES RECEIVED PATIENT IN BED, ASLEEP, OBTUNDED. PT WITH TRACH PORTEX #7 CONNECTED TO MECH VENT AT PRESCRIBED SETTINGS, TOLERATING CURRENT SETTINGS WELL WITH NO SOB NOTED. PICC LINE ON XIOMARA, INTACT AND PATENT. RCW PERMACATH INTACT WITH DRESSING C/D/I. G-TUBE IN PLACE AND PATENT, FEEDING OF NEPRO @50ML/HR IN PROGRESS, TOLERATING WELL. ASPIRATIONS PRECAUTIONS MAINTAINED. SAFETY MEASURES IN PLACED: HOB KEPT ELEVATED AT ALL TIMES, BED LOCKED AND IN LOWEST POSITION, SR UP X3, CALL LIGHT WITHIN EASY REACH. WILL CONTINUE TO MONITOR.
[2021-12-01] MEDS ORDERED: KEY,NONCONTROL,TO KEEP IN PYXI 1 EA MC ONE ×2 (08:08→17:20)
[2021-12-01] MEDS: PROSOURCE / PROSTAT (PYXIS) 30 ML UDC GT SCH ×3 (08:13→17:25)
[2021-12-01] MEDS: ARGININE/GLUTAMINE/CALCIUM BMB 1 EACH POWD.PACK GT SCH (08:13)
[2021-12-01] MEDS: CHLORHEXIDINE GLUCONATE 15 ML UDC MM SCH ×2 (08:13→17:00)
[2021-12-01] MEDS: PHENOBARBITAL 30 MG TABLET GT SCH ×2 (08:13→17:25)
[2021-12-01] MEDS: PANTOPRAZOLE 40 MG/PACK PACK GT SCH (08:14)
[2021-12-01] MEDS: CHOLESTYRAMINE/ASPARTAME 4 G/PKT PACKET GT SCH ×2 (08:15→21:55)
[2021-12-01] MEDS: MIDODRINE HCL (5MG) 5 MG TABLET GT SCH (08:15)
[2021-12-01] MEDS: MINERAL OIL/PETROLATUM,WHITE 120 GM JAR TP SCH ×2 (08:16→22:18)
[2021-12-01] MEDS: DAKINS HALF STRENGTH (0.25%) 480 ML BOTTLE TOP SCH (08:16)
[2021-12-01] MEDS: BACITRACIN/POLYMYXIN B 15 GM TUBE TP SCH (08:17)
[2021-12-01] MEDS: DORZOLAMIDE OPTH 2% 10 ML BOTTLE OP SCH ×2 (08:45→17:18)
[2021-12-01 10:00] LABS: UREA NITROGEN, BLOOD 110 mg/dL (7-18)
[2021-12-01] MEDS: ALBUMIN 25% 25 GM in PREMIX 1 EA IV PRN (13:05)
[2021-12-01 13:21] LABS: BILIRUBIN,DIRECT 0.5 mg/dL (0.0-0.2); BILIRUBIN,TOTAL 0.9 mg/dL (0.2-1.0)
[2021-12-01] MEDS ORDERED: DAKINS QUARTER STRENGTH (0.125%) 480 ML BOTTLE TOP SCH (14:00)
--- NOTE | 2021-12-01 14:00 | NUR ---
SUB ACUTE RN NOTES DUE TO FEVER DIALYSIS WAS CANCELLED TO DAY PER DR MARTINEZ.
--- NOTE | 2021-12-01 15:29 | NUR ---
SUB ACUTE RN NOTE PATIENT NOTED WITH FEVER 100.8. PRN TYLENOL ADMINISTERED. WILL REASSESS.
--- NOTE | 2021-12-01 19:23 | NUR ---
SUB-ACUTE OVERFLOW RN CLOSING NOTES PATIENT IN BED, ASLEEP, OBTUNDED. PT WITH TRACH PORTEX #7 CONNECTED TO MECH VENT AT PRESCRIBED SETTINGS, TOLERATING CURRENT SETTINGS WELL WITH NO SOB NOTED DURING THE DAY. PICC LINE ON XIOMARA, INTACT AND PATENT. RCW PERMACATH INTACT WITH DRESSING C/D/I. G-TUBE IN PLACE AND PATENT, FEEDING OF NEPRO @50ML/HR IN PROGRESS, TOLERATING WELL. ASPIRATIONS PRECAUTIONS MAINTAINED. SAFETY MEASURES IN PLACED: HOB KEPT ELEVATED AT ALL TIMES, BED LOCKED AND IN LOWEST POSITION, SR UP X3, CALL LIGHT WITHIN EASY REACH. WILL ENDORSE TO [employer] CONSULTANT NURSE FOR OTIS.
[2021-12-01] MEDS ORDERED: NEPRO 1,000 ML BOTTLE GT SCH (19:45)
--- NOTE | 2021-12-01 20:30 | NUR ---
RN OPENING NOTES: RECEIVED PATIENT SLEEP IN BED COMFORTABLY, BED IN LOW POSITION, CALL LIGHTS WITHIN REACH NO COMPLAIN OF PAIN AND DISCOMFORT AT THIS TIME, NO FACIAL GRIMACING WAS OBSERVED, PATIENT WAS ACCOMPANIED BY DAUGHTER WHEN RECEIVED, PATIENT ON NPO G TUBE FEEDING HOB AT 45 DEGREE, ASPIRATION PRECAUTION, ON NEPRO 1.8@50ML PER HOUR INFUSING WELL, ON WITH XIOMARA PICC LINE AND RCW PERMA CATH, PATIENT KEPT CLEAN AND DRY ALL NEEDS MET WILL CONTINUE TO MONITOR.
--- NOTE | 2021-12-01 21:45 | NUR ---
RN NOTES PATIENT WAS NOTED WITH TEMP OF 101- TYLENOL LIQUID 650 MG Q6H PRN FOR FEVER OVER 100.4 WAS GIVEN TSB DONE WILL CONTINUE TO MONITOR.
[2021-12-01] MEDS: LATANOPROST EYE DROP 0.005% 2.5 ML BOTTLE OP SCH (22:18)
[2021-12-02] VITALS: BP 100/45
[2021-12-02] MEDS: INSULIN REGULAR, HUMAN 100 UNIT/ML 3 ML VIAL SQ PRN ×2 (00:57→13:23)
[2021-12-02] MEDS: BLOOD SUGAR DIAGNOSTIC 1 EACH STRIP IN SCH ×4 (00:59→18:30)
[2021-12-02] MEDS: IPRATROPIUM NEB FS 0.5 MG/2.5 ML AMPUL.NEB NEB SCH ×4 (01:29→19:39)
[2021-12-02] MEDS: PHENYTOIN SODIUM IV 100 MG/2ML VIAL IV SCH ×3 (05:32→21:04)
[2021-12-02] MEDS: METOCLOPRAMIDE HCL 10 MG/10 ML UDC GT SCH ×3 (05:32→21:04)
--- NOTE | 2021-12-02 07:25 | NUR ---
MS RN CLOSING NOTES: PATIENT SLEEP IN BED COMFORTABLY, AROUSABLE TO TACTILE STIMULI, HOB AT 45 DEGREE,BED IN LOW POSITION, CALL LIGHTS WITHIN THE REACH NO COMPLAIN OF PAIN AND DISCOMFORT NO FACIAL GRIMACING WAS OBSERVED, NPO ON G TUBE FEEDING OF NEPRO 1.8@ 50 ML PER HOUR INFUSING WELL, WITH XIOMARA PICC LINE, RCW PERMACATH ON SCHEDULE DIALYSIS TODAY, PATIENT KEPT CLEAN AND DRY ALL DRESSING CHANGE, ALL NEEDS MET ENDORSE TO INCOMING SHIFT.
--- NOTE | 2021-12-02 07:30 | NUR ---
MS RN OPENING NOTES: PATIENT SLEEP IN BED COMFORTABLY, AROUSABLE TO TACTILE STIMULI, HOB AT 45 DEGREE,BED IN LOW POSITION, CALL LIGHTS WITHIN THE REACH NO COMPLAIN OF PAIN AND DISCOMFORT NO FACIAL GRIMACING WAS OBSERVED, ON G TUBE FEEDING OF NEPRO 1.8@ 45 ML PER HOUR INFUSING WELL, WITH XIOMARA PICC LINE, RCW PERMACATH ON SCHEDULE DIALYSIS TODAY.WILL CONTINUE TO MONITOR.
[2021-12-02 09:13] VITALS: BP 105/47
[2021-12-02] MEDS: CHLORHEXIDINE GLUCONATE 15 ML UDC MM SCH ×2 (09:15→16:39)
[2021-12-02] MEDS: CHOLESTYRAMINE/ASPARTAME 4 G/PKT PACKET GT SCH ×2 (09:16→21:04)
[2021-12-02] MEDS: PANTOPRAZOLE 40 MG/PACK PACK GT SCH (09:17)
[2021-12-02] MEDS: ARGININE/GLUTAMINE/CALCIUM BMB 1 EACH POWD.PACK GT SCH (09:21)
[2021-12-02] MEDS: PROSOURCE / PROSTAT (PYXIS) 30 ML UDC GT SCH ×3 (09:21→16:39)
[2021-12-02] MEDS: DORZOLAMIDE OPTH 2% 10 ML BOTTLE OP SCH ×2 (09:23→16:43)
[2021-12-02] MEDS: BACITRACIN/POLYMYXIN B 15 GM TUBE TP SCH (09:25)
[2021-12-02] MEDS: DAKINS HALF STRENGTH (0.25%) 480 ML BOTTLE TOP SCH (09:28)
[2021-12-02] MEDS: MINERAL OIL/PETROLATUM,WHITE 120 GM JAR TP SCH ×2 (09:31→21:24)
[2021-12-02] MEDS: MIDODRINE HCL (5MG) 5 MG TABLET GT PRN (09:33)
[2021-12-02] MEDS: MIDODRINE HCL (5MG) 5 MG TABLET GT SCH (09:34)
[2021-12-02] MEDS ORDERED: KEY,NONCONTROL,TO KEEP IN PYXI 1 EA MC ONE ×2 (09:56→16:34)
[2021-12-02] MEDS: PHENOBARBITAL 30 MG TABLET GT SCH ×2 (10:02→16:39)
[2021-12-02] MEDS: ALBUMIN 25% 25 GM in PREMIX 1 EA IV PRN (12:18)
[2021-12-02] MEDS: ACETAMINOPHEN 650 MG/20.3 ML UDC GT PRN ×2 (13:09→20:39)
--- NOTE | 2021-12-02 14:57 | NUR ---
Bioethics Meetin12/01/[address] 12/01/2021 from [id number]. Attendees : Jake Pascal, son and Durable Power of Gauge Inspector for Healthcare: [phone]; chip separator, Dr. Eben Garcia; RABIA Woods; Merchandise Presentation Manager, Anitha Howe & Sub-Acute SW, Bee Pérez. Dr. Garcia explored Arts plans regarding care & treatment of pt. and debridement, in particular. Art stated that the pt. has had 4 debridement procedures in the past at different hospitals and per Art, the pt.s overall condition has not improved. Dr. Garcia educated family that wound healing can be a lengthy process and debridement is expected to be an ongoing treatment. Jake expressed understanding and is ambivalent about agreeing for procedure. Art requested for a air cargo specialist to discuss treatment options with him. Vinicio is agreeable and stated he would notify Dr. Martinez to address this with Art. Jake was agreeable and thanked the team for the discussion of his mothers treatment plan. SW will remain available to support the family as needed. Addendum: 12/02/21 at 1534 by BEE HELM Correction: Vinicio is agreeable and stated he would notify Dr. Jerad Corey (head of the wound center)to address this with Art.
--- NOTE | 2021-12-02 15:30 | NUR ---
RN BLANCHE SHABAZZ THE SECURITIES SALES ASSOCIATE CALLED BACK AND STATED THE TRANSPORTATION FOR DIALYSIS WILL BE 14 TO 1430. PATIENT HAD NO FEVER TILL 1230. AFTER THAT THE FEVER SPIKED TO 101. TYLENOL GIVEN ORDERED. ALSO ALBUMIN 2 BOTTLES GIVEN ORDERED BEFORE DIALYSIS SO THE BLOOD PRESSURE WILL NOT DROP IN THE DIALYSIS CENTER. TRANSPORTATION DID NOT BROMINATION EQUIPMENT OPERATOR THE PATIENT SINCE FOR FEVER. CALLED DR MARTINEZ OFFICE THE PHONE NUMBER OF [phone] GOT FROM OFFICE. CALLED AND LEFT MASSAGE FOR DR MARTINEZ FOR THE PATIENT'S STATUS. NO RUTHANN BACK.
[2021-12-02 16:08] VITALS: BP 121/41
--- NOTE | 2021-12-02 16:30 | NUR ---
Family Invite to IDT: SW emailed the pt.'s son, Jake inviting them to participate in 12/04/2021 IDT Meeting. Art replied that he is not available at time of meeting and will not participate. Noted.
--- NOTE | 2021-12-02 19:30 | NUR ---
MS RN CLOSING NOTES: PATIENT SLEEP IN BED COMFORTABLY, AROUSABLE TO TACTILE STIMULI, HOB AT 45 DEGREE,BED IN LOW POSITION, CALL LIGHTS WITHIN THE REACH NO COMPLAIN OF PAIN AND DISCOMFORT NO FACIAL GRIMACING WAS OBSERVED, ON G TUBE FEEDING OF NEPRO 1.8@ 45 ML PER HOUR INFUSING WELL, WITH XIOMARA PICC LINE, RCW PERMACATH ALL DUE MEDS AND TREATMENT GIVEN ORDERED. WILL ENDORSE FOR OTIS.
--- NOTE | 2021-12-02 19:36 | NUR ---
RN NOTES: RECEIVED PATIENT SLEEP IN BED COMFORTABLY, ACCOMPANIED BY DAUGHTER, BED IN LOW POSITION, CALL LIGHTS WITHIN REACH, NO COMPLAIN OF PAIN AND DISCOMFORT AT THIS TIME, HOB AT 45 DEGREE TO REMAIN ALL THE TIME, NPO ON G TUBE FEEDING WITH NEPRO 1.8 AT 50CC PER HOUR INFUSING WELL, ON MECHANICAL VENT SATURATING WELL, PATIENT WITH WITH XIOMARA PICC LINE AND RCW PERMACATH, NO DIALYSIS DONE PER RN ANI DUE TO FEVER, PATIENT KEPT CLEAN AND DRY ALL NEEDS MET WILL CONTINUE TO MONITOR.
--- NOTE | 2021-12-02 19:53 | NUR ---
RT PT RECVD ON AC ORDERED VENT SETTINGS, TRACH IS PATENT AND SECURED. SUCTION DONE PRN, NEB TX GIVEN WITH NO ADVERSE REACTION. VENT IS PLUGGED INTO RED WALL OUTLET, WITH ALARMS ON AND AUDIBLE. AMBU BAG AND SPARE TRACH AT BEDSIDE. NO SOB OR RESPIRATORY DISTRESS NOTED AT THIS TIME. PT DAUGHTER IS BEDSIDE. WILL CONTINUE TO MONITOR.
[2021-12-02 20:00] VITALS: BP 143/61
[2021-12-02] MEDS: LATANOPROST EYE DROP 0.005% 2.5 ML BOTTLE OP SCH (21:24)
[2021-12-02 22:18] VITALS: BP 143/61
[2021-12-03] VITALS: BP 115/44
[2021-12-03] MEDS: INSULIN REGULAR, HUMAN 100 UNIT/ML 3 ML VIAL SQ PRN ×2 (00:07→17:21)
[2021-12-03] MEDS: BLOOD SUGAR DIAGNOSTIC 1 EACH STRIP IN SCH ×4 (00:08→17:42)
[2021-12-03] MEDS: IPRATROPIUM NEB FS 0.5 MG/2.5 ML AMPUL.NEB NEB SCH ×4 (01:54→19:24)
[2021-12-03 04:00] VITALS: BP 113/46
[2021-12-03] MEDS: METOCLOPRAMIDE HCL 10 MG/10 ML UDC GT SCH ×3 (05:21→21:30)
[2021-12-03] MEDS: PHENYTOIN SODIUM IV 100 MG/2ML VIAL IV SCH ×3 (05:21→21:30)
--- NOTE | 2021-12-03 06:37 | NUR ---
MS RN CLOSING NOTES PATIENT SLEEP IN BED COMFORTABLY, AROUSABLE TO TACTILE STIMULI, BED IN LOW POSITION, CALL LIGHTS WITHIN REACH, NO COMPLAIN OF PAIN AND DISCOMFORT AT THIS TIME,NO FACIAL GRIMACING WAS OBSERVED, HOB AT 45 DEGREE NPO ON G TUBE FEEDING WITH NEPRO 1.8 @45CC PER MINUTE, PATIENT ON MONITORING FOR FEVER, ACETAMINOPHEN GIVEN ONE TIME ON SHIFT PLUS TSB AND ICE PACK WAS, ON ARMPIT, PATIENT LAST TEMP AT 0545- 99.1, PATIENT KEPT CLEAN AND DRY WOUND CLEANSE AND CHANGE DRESSING PATIENT KEPT CLEAN AND DRY ALL NEEDS ENDORSE TO INCOMING SHIFT.
--- NOTE | 2021-12-03 07:34 | NUR ---
SUBACUTE OVERFLOW RN OPENING NOTE RECEIVED PATIENT IN BED, OBTUNDED WITH EYES CLOSED. NO S/SX OF ACUTE DISTRESS. VENT-DEPENDENT; TOLERATING SETTINGS WELL. SO SIGNS OF PAIN VIA FLACC SCALE. IV ACCESS XIOMARA PICC PATENT AND INTACT. RCW PERMACATH PATENT AND INTACT. SAFETY MEASURES IN PLACE WITH BED LOCKED AND LOW POSITION WITH SIDE RAILS UP X 2. WILL CONTINUE TO MONITOR THROUGHOUT SHIFT.
[2021-12-03] MEDS ORDERED: KEY,NONCONTROL,TO KEEP IN PYXI 1 EA MC ONE ×3 (08:02→16:46)
[2021-12-03] MEDS: PHENOBARBITAL 30 MG TABLET GT SCH ×2 (08:16→17:00)
[2021-12-03] MEDS: PROSOURCE / PROSTAT (PYXIS) 30 ML UDC GT SCH ×3 (08:16→17:00)
[2021-12-03] MEDS: CHOLESTYRAMINE/ASPARTAME 4 G/PKT PACKET GT SCH ×2 (08:16→21:30)
[2021-12-03] MEDS: CHLORHEXIDINE GLUCONATE 15 ML UDC MM SCH ×2 (08:17→17:08)
[2021-12-03] MEDS: BACITRACIN/POLYMYXIN B 15 GM TUBE TP SCH (08:17)
[2021-12-03] MEDS: MIDODRINE HCL (5MG) 5 MG TABLET GT SCH (08:18)
[2021-12-03] MEDS: PANTOPRAZOLE 40 MG/PACK PACK GT SCH (08:18)
[2021-12-03] MEDS: DORZOLAMIDE OPTH 2% 10 ML BOTTLE OP SCH ×2 (08:26→17:29)
[2021-12-03] MEDS: MINERAL OIL/PETROLATUM,WHITE 120 GM JAR TP SCH ×2 (08:26→21:00)
[2021-12-03] MEDS: DAKINS HALF STRENGTH (0.25%) 480 ML BOTTLE TOP SCH (08:26)
[2021-12-03] MEDS: ARGININE/GLUTAMINE/CALCIUM BMB 1 EACH POWD.PACK GT SCH (08:27)
[2021-12-03 10:00] VITALS: BP 104/44
[2021-12-03] MEDS: ALBUMIN 25% 25 GM in PREMIX 1 EA IV PRN (11:29)
[2021-12-03] MEDS: MIDODRINE HCL (5MG) 5 MG TABLET GT PRN (13:07)
--- NOTE | 2021-12-03 13:50 | NUR ---
RN NOTE UNABLE TO TRANSPORT PATIENT TO [facility] FOR HD D/T LOW BP PER TRANSPORTATION. I CALLED [facility] SPOKE WITH NIMA ROLLE AND PER AQUILINO, THEY ARE UNABLE TO DIALYZE WITH GIVEN BP. NO TEMP OR FEVER. VITALS 114/46 HR 78 RR [address] BEACH [address] MARTINEZ MADE AWARE.
--- NOTE | 2021-12-03 17:00 | NUR ---
RN NOTE PTS DAUGHTER REQUESTED IN AND OUT CATH D/T PT NOT DIALYZED SINCE TUESDAY;OBTAINED ORDER PER DR. BEACH FOR IN AND OUT CATHETER WITH OUTPUT OF 30 ML.
--- NOTE | 2021-12-03 18:56 | NUR ---
SUBACUTE OVERFLOW RN CLOSING NOTE PT IN BED WITH DAUGHTER AT BEDSIDE. NO S/SX OF ACUTE DISTRESS. NO SIGNIFICANT CHANGE DURING SHIFT. ALL NEEDS MET. PT TOLERATING VENT SETTINGS WELL. G-TUBE PATENT AND INTACT WITH NEPRO RUNNING 45MLS/HR. SAFETY MEASURES IN PLACE WITH BED LOCKED AND LOW. SIDE RAILS UP X 2. WILL ENDORSE CONTINUITY OF CARE TO ONCOMING SHIFT. Addendum: 12/03/21 at 1857 by LIBAN AVILA RN ERROR
--- NOTE | 2021-12-03 18:57 | NUR ---
SUBACUTE OVERFLOW RN CLOSING NOTE PT IN BED WITH DAUGHTER AT BEDSIDE. NO S/SX OF ACUTE DISTRESS. NO SIGNIFICANT CHANGE DURING SHIFT. ALL NEEDS MET. PT TOLERATING VENT SETTINGS WELL. G-TUBE PATENT AND INTACT WITH NEPRO RUNNING 50MLS/HR. SAFETY MEASURES IN PLACE WITH BED LOCKED AND LOW. SIDE RAILS UP X 2. WILL ENDORSE CONTINUITY OF CARE TO ONCOMING SHIFT.
--- NOTE | 2021-12-03 19:25 | NUR ---
RECEIVED PATIENT IN BED, OBTUNDED. NO S/S OF DISTRESS NOTED. NOT IN PAIN, NOT MOANING. BED ALARM ON. BED IN LOWEST AND LOCKED POSITION. HOB ELEVATED AT ALL TIMES. WITH DAUGHTER AT THE BEDSIDE. PER REPORT FROM PREVIOUS SHIFT PATIENT HAD BM 2X TODAY.
[2021-12-03 20:00] VITALS: BP 144/46
[2021-12-03] MEDS: LATANOPROST EYE DROP 0.005% 2.5 ML BOTTLE OP SCH (22:10)
[2021-12-03 22:33] VITALS: BP 144/46
[2021-12-04] VITALS: BP 123/47
[2021-12-04] MEDS: BLOOD SUGAR DIAGNOSTIC 1 EACH STRIP IN SCH ×4 (00:39→18:37)
[2021-12-04] MEDS: INSULIN REGULAR, HUMAN 100 UNIT/ML 3 ML VIAL SQ PRN ×3 (00:42→13:06)
[2021-12-04] MEDS: IPRATROPIUM NEB FS 0.5 MG/2.5 ML AMPUL.NEB NEB SCH ×4 (01:22→20:30)
[2021-12-04] MEDS ORDERED: ACETAMINOPHEN 650 MG/20.3 ML UDC ONE (02:01)
[2021-12-04] MEDS: ACETAMINOPHEN 650 MG/20.3 ML UDC GT PRN (02:02)
[2021-12-04 04:00] VITALS: BP 102/47
--- NOTE | 2021-12-04 05:44 | NUR ---
RN CLOSING NOTES: PATIENT RESTING COMFORTABLY IN BED, ASLEEP. NO S/S OF DISTRESS NOTED. NOT IN PAIN. NO MOANING. BED ALARM ON. BED IN LOWEST AND LOCKED POSITION. HOB ELEVATED AT ALL TIMES. HEELS OFFLOADED AT ALL TIMES. TURNED AND REPOSITIONED [id number]. LEFT EAR TREATMENT DONE.NOTED LEFT UPPER ARM PICC LINE TUBING OUT FOR ABOUT 2 INCHES LONG, STILL INTACT WITH DRESSING, DRESSING CHANGED ASEPTICALLY. G-TUBE DRESSING CHANGED. WITH TRACH INTACT CONNECTED TO THE MECHANICAL VENT. O2 SAT BEEN WNL. KEPT PATIENT CLEAN AND DRY.
[2021-12-04] MEDS: METOCLOPRAMIDE HCL 10 MG/10 ML UDC GT SCH ×3 (06:23→21:39)
[2021-12-04] MEDS: PHENYTOIN SODIUM IV 100 MG/2ML VIAL IV SCH ×3 (06:24→21:39)
--- NOTE | 2021-12-04 06:38 | NUR ---
INFORMED CAD DESIGN ENGINEER CARSON RE: TEMP 100, TYLENOL GIVEN PER GT AND WENT DOWN TO 99. SPOKE TO THE DAUGHTER EARLIER TODAY AND INFORMED THE TEMP.
--- NOTE | 2021-12-04 07:15 | NUR ---
SUBACUTE OVERFLOW RN OPENING NOTE RECEIVED PT IN BED OPENS EYES TO TOUCH. PATEINT WITH TRACH HOOKED TO MECH VENT WITH NO S/SX OF ACUTE DISTRESS. WITH PERMACATH ON THE RIGHT UPPER CHEST WITH DRESSING, DRY AND INTACT. WITH G-TUBE PATENT WITH ONGOING NEPHRO AT 50ML/HR TOLERATED WELL. WITH PICC LINE ON XIOMARA ON SALINE LOCK, PATENT AND INTACT. WITH STAGE 4 PRESSURE ULCER AND LEFT EAR LOBE, WITH DRESSING DRY AND INTACT. SAFETY MEASURES IN PLACE WITH BED LOCKED AND LOW. SIDE RAILS UP X 2. CALL LIGHT WITHIN REACH. WILL ECONTINUE TO MONITOR PATIENT.
--- NOTE | 2021-12-04 08:04 | NUR ---
RT PT RECVD ON AC ORDERED AC VENT SETTINGS, TRACH IS PATENT AND SECURED. SUCTION DONE PRN, NEB TX GIVEN WITH NO ADVERSE REACTION. VENT IS PLUGGED INTO RED WALL OUTLET, WITH ALARMS ON AND AUDIBLE. AMBU BAG AND SPARE TRACH AT BEDSIDE. NO SOB OR RESPIRATORY DISTRESS NOTED AT THIS TIME.
[2021-12-04 08:23] VITALS: BP 96/40
[2021-12-04] MEDS: CHOLESTYRAMINE/ASPARTAME 4 G/PKT PACKET GT SCH ×2 (09:20→21:39)
[2021-12-04] MEDS: CHLORHEXIDINE GLUCONATE 15 ML UDC MM SCH ×2 (09:20→17:00)
[2021-12-04] MEDS: PANTOPRAZOLE 40 MG/PACK PACK GT SCH (09:20)
[2021-12-04] MEDS: DORZOLAMIDE OPTH 2% 10 ML BOTTLE OP SCH ×2 (09:21→17:00)
[2021-12-04] MEDS: BACITRACIN/POLYMYXIN B 15 GM TUBE TP SCH (09:21)
[2021-12-04] MEDS: MINERAL OIL/PETROLATUM,WHITE 120 GM JAR TP SCH ×2 (09:21→21:40)
[2021-12-04] MEDS: PROSOURCE / PROSTAT (PYXIS) 30 ML UDC GT SCH ×3 (09:23→17:06)
[2021-12-04] MEDS: ARGININE/GLUTAMINE/CALCIUM BMB 1 EACH POWD.PACK GT SCH (09:23)
[2021-12-04] MEDS: PHENOBARBITAL 30 MG TABLET GT SCH ×2 (09:26→17:06)
[2021-12-04] MEDS: MIDODRINE HCL (5MG) 5 MG TABLET GT SCH (09:28)
--- NOTE | 2021-12-04 14:44 | NUR ---
SUBACUTE OVERFLOW RN NOTE SEEN BY ID CODING CONSULTANT. NO NEW ORDER AT THIS TIME. DRESSING CHANGE DONE ON THE WOUNDS, WILL CONTINUE TO MONITOR PATIENT.
[2021-12-04] MEDS ORDERED: DOSING PER PHARMACY-TOBRA INHALATION 1 EA XX PRN (15:30)
[2021-12-04] MEDS ORDERED: DOSE PER PHARMACY (MD SPECIFY MEDICATION) 1 EA XX PRN (15:30)
--- NOTE | 2021-12-04 15:45 | NUR ---
INTERDISCIPLINARY PLAN OF CARE CONFERENCE took place today. The patients son, Art B. [phone] Cantor and Interdisciplinary team discussed the plan of care in detail. Current orders as well as treatments and medications were reviewed. See team notes for details.
[2021-12-04 16:27] VITALS: BP_SYST 125; BP_SYST 90; BP_DIAS 40; BP_DIAS 85
[2021-12-04] MEDS: MIDODRINE HCL (5MG) 5 MG TABLET GT PRN (17:07)
--- NOTE | 2021-12-04 19:10 | NUR ---
RN OPENING NOTES: RECEIVED PATIENT IN BED, COMFORTABLE. NO S/S OF DISTRESS NOTED. NOT MOANING. EYES CLOSED. WITH TRACH INTACH CONNECTED TO THE MECHANICAL VENT, WITH O2 SAT 100%. BREATHING NOT LABORED. HOB ELEVATED. BED IN LOWEST AND LOCKED POSITION. DAUGHTER AT THE BEDSIDE. ON CONTACT ISOLATION, MAINTAINED AT ALL TIMES. WITH GT INTACT AND FEEDING RUNNING AT 45ML/HOUR.
--- NOTE | 2021-12-04 19:10 | NUR ---
SUBACUTE OVERFLOW RN CLOSING NOTE PT IN BED OPENS EYES TO TOUCH. PATIENT WITH TRACH HOOKED TO MECH VENT WITH NO S/SX OF ACUTE DISTRESS. WITH PERMACATH ON THE RIGHT UPPER CHEST WITH DRESSING, DRY AND INTACT. WITH G-TUBE PATENT WITH ONGOING NEPHRO AT 50ML/HR TOLERATED WELL. WITH PICC LINE ON XIOMARA ON SALINE LOCK, PATENT AND INTACT. WITH STAGE 4 PRESSURE ULCER AND LEFT EAR LOBE, WITH DRESSING DRY AND INTACT. SAFETY MEASURES IN PLACE WITH BED LOCKED AND LOW. SIDE RAILS UP X 2. CALL LIGHT WITHIN REACH. WILL ENDORSE TO NEXT SHIFT FOR CONTINUITY OF CARE.
[2021-12-04 20:00] VITALS: BP 105/56
[2021-12-04] MEDS ORDERED: COLISTIMETHATE SODIUM 150 MG in IV NS 0.9% 50 ML IV SCH (20:00)
--- NOTE | 2021-12-04 20:02 | NUR ---
PATIENT'S DAUGHTER REQUESTED THE RT, CALLED AND SHE SAID SHE WILL BE COMING TO SEE THE PATIENT.
--- NOTE | 2021-12-04 20:45 | NUR ---
WITH LOW GRADE FEVER TEMP=99.7, ICE PACKS PLACED ON BOTH AXILLAE. WILL RECHECK. HEELS OFFLOADED WITH PILLOWS. TURNED TO SIDE. AND WILL TURN AND REPOSITION Q2 HOURS.
[2021-12-04] MEDS ORDERED: TOBRAMYCIN 80 MG/2 ML VIAL INH SCH (21:00)
[2021-12-04 21:27] VITALS: BP 105/56
[2021-12-04] MEDS: LATANOPROST EYE DROP 0.005% 2.5 ML BOTTLE OP SCH (21:41)
[2021-12-05] VITALS: BP 122/48
[2021-12-05] MEDS: BLOOD SUGAR DIAGNOSTIC 1 EACH STRIP IN SCH ×3 (00:09→12:20)
[2021-12-05] MEDS: INSULIN REGULAR, HUMAN 100 UNIT/ML 3 ML VIAL SQ PRN ×3 (00:09→12:18)
[2021-12-05] MEDS: IPRATROPIUM NEB FS 0.5 MG/2.5 ML AMPUL.NEB NEB SCH ×3 (01:35→12:32)
[2021-12-05 04:00] VITALS: BP 108/40
[2021-12-05 04:22] VITALS: BP 108/40
[2021-12-05] MEDS: PHENYTOIN SODIUM IV 100 MG/2ML VIAL IV SCH ×2 (04:40→13:12)
[2021-12-05] MEDS: METOCLOPRAMIDE HCL 10 MG/10 ML UDC GT SCH ×2 (04:40→13:11)
--- NOTE | 2021-12-05 06:00 | NUR ---
RN CLOSING NOTES: PATIENT IN BED, OBTUNDED. NO S/S OF DISTRESS NOTED. NOT IN PAIN. BED IN LOWEST AND LOCKED POSITION. HOB ELEVATED AT ALL TIMES. HEELS OFFLOADED. TURNED AND REPOSITIONED Q2 HOURS. WOUND TREATMENT DONE. NO HD SINCE TUESDAY, JOVITA BYRD MADE AWARE LAST NIGHT. GT SITE DRESSING CHANGED. NO LEAKING ON THE G TUBE SITE.
[2021-12-05 06:24] LABS: BASOPHILS # (AUTO) 0.1 K/uL (0.0-0.2); BASOPHILS % (AUTO) 0.3 % (0.0-2.0); EOSINOPHILS % (AUTO) 0.2 % (0.0-6.0); HEMATOCRIT 28 % (33-45); HEMOGLOBIN 8.3 g/dL (11.5-14.8); LYMPHOCYTES # (AUTO) 1.4 K/uL (0.8-4.8); LYMPHOCYTES % (AUTO) 5.5 % (20.0-44.0); MEAN CORPUSCULAR HGB CONC 30 g/dl (31.0-36.0); MEAN CORPUSCULAR VOLUME 99 fL (82-100); MONOCYTES # (AUTO) 1.6 K/uL (0.1-1.30); MONOCYTES % (AUTO) 6.1 % (2.0-12.0); NEUTROPHILS # (AUTO) 23.3 K/uL (1.8-8.9); NEUTROPHILS % (AUTO) 87.9 % (43.0-81.0); PLATELET COUNT (AUTO) 338 K/uL (150-450); RED BLOOD CELL COUNT(AUTO) 2.78 MIL/uL (4.0-5.2); WHITE BLOOD COUNT (AUTO) 26.5 K/uL (4.3-11.0)
--- NOTE | 2021-12-05 07:30 | NUR ---
MS RN OPENING NOTES: PATIENT IN BED COMFORTABLE, AROUSABLE TO TACTILE STIMULI, HOB AT 45 DEGREE,BED IN LOW POSITION AND LOCKED. , CALL LIGHTS WITHIN THE REACH . NO FACIAL GRIMACING WAS OBSERVED, ON G TUBE FEEDING OF NEPRO 1.8@ 45 ML PER HOUR INFUSING WELL, WITH XIOMARA PICC LINE, RCW PERMACATH . ON VENT . NO RESPIRATORY DISTRESS NOTED.WILL CONTINUE TO MONITOR.
[2021-12-05] MEDS: BACITRACIN/POLYMYXIN B 15 GM TUBE TP SCH (09:02)
[2021-12-05] MEDS: CHLORHEXIDINE GLUCONATE 15 ML UDC MM SCH (09:02)
[2021-12-05] MEDS: MINERAL OIL/PETROLATUM,WHITE 120 GM JAR TP SCH (09:02)
[2021-12-05] MEDS: PANTOPRAZOLE 40 MG/PACK PACK GT SCH (09:02)
[2021-12-05] MEDS: ARGININE/GLUTAMINE/CALCIUM BMB 1 EACH POWD.PACK GT SCH (09:02)
[2021-12-05 09:03] VITALS: BP 92/30
[2021-12-05] MEDS: MIDODRINE HCL (5MG) 5 MG TABLET GT SCH (09:03)
[2021-12-05] MEDS: PROSOURCE / PROSTAT (PYXIS) 30 ML UDC GT SCH ×2 (09:03→13:11)
[2021-12-05] MEDS: DORZOLAMIDE OPTH 2% 10 ML BOTTLE OP SCH (09:04)
[2021-12-05] MEDS ORDERED: KEY,NONCONTROL,TO KEEP IN PYXI 1 EA MC ONE ×2 (09:45→09:49)
[2021-12-05] MEDS: PHENOBARBITAL 30 MG TABLET GT SCH (09:58)
[2021-12-05] MEDS: CHOLESTYRAMINE/ASPARTAME 4 G/PKT PACKET GT SCH (11:12)
--- NOTE | 2021-12-05 11:45 | NUR ---
RN NOTES CALLED DR SPENCER (ID) AT [id number] AND REPORTED THE PATIENT CONDITION AND WBC WHICH WAS ELEVATED TO 26.5 AND LOW BLOOD PRESSURE OF 92/30. SPOKE WITH AND THEY STATED THE ATB TREATMENT WILL NOT WORK AND THE PATIENT NEEDS THE WOUND DEBRIEDMENT , SINCE THE ATB FOR 2 DAYS WILL NOT FIX THE PATIENT ISSUE. I REPORTED THE PATIENT HAD DAILY FEVER FOR A WEEK AND NO DIALYSIS FOR A WEEK ALSO. STATED CHECK PATIENT CLOSELY FOR 24 HOURS AND CALL BACK IF HER SITUATION CHANGES.
--- NOTE | 2021-12-05 12:05 | NUR ---
RN NOTES CALLED DR MARTINEZ WITH THE NUMBER [phone] , THE MANAGER COMPLETIONS PAGED THE DOCTOR MICHELLE, AND THEY GET THE REASON FOR THE CALL, I GOT DISCONNECTED , NO CALL BACK
[2021-12-05] MEDS: ALBUMIN 25% 25 GM in PREMIX 1 EA IV PRN (12:26)
--- NOTE | 2021-12-05 12:30 | NUR ---
RN NOTES [facility] CALLED AND STATED THEY WILL PICK THE PATIENT UP FOR DIALYSIS AT 1300 TILL 1330 PM.I GAVE 200 ML ALBUMIN FOR LOW BP, STARTING 1230 PM ENDED TILL 1330 PM BUT STILL NOT HELPING. BP=89/29. ALSO NOTED WITH FEVER 101.3. TYLENOL 20 ML GIVEN .
[2021-12-05] MEDS: ACETAMINOPHEN 650 MG/20.3 ML UDC GT PRN (12:36)
--- NOTE | 2021-12-05 16:15 | NUR ---
RN NOTES DR EDWARD VISIT THE PATIENT AND SPOKE WITH THE DAUGHTER AND EXPLAINED THAT BECAUSE OF HER SEPSIS HER CONDITION WILL GET WORSE. OFFERED TO TRANSFER THE PATIENT TO ICU.
--- NOTE | 2021-12-05 16:15 | NUR ---
RN NOTES DR EDWARD CALLED AROUND 1600 AND ASKED ABOUT PATIENT CONDITION. REPORTED LOW BP AND FEVER EPISODE AND ELEVATED WHITE BLOOD CELL. HE STATED WILL VISIT THE PATIENT IN 7 MINUTES.
[2021-12-05 16:36] LABS: CALCIUM, SERUM 10.7 mg/dL (8.5-10.1); CARBON DIOXIDE 13 mmol/L (21-32); CHLORIDE 94 mmol/L (98-107); CREATININE 3.5 mg/dL (0.6-1.3); GLUCOSE 263 mg/dL (74-106); POTASSIUM 3.5 mmol/L (3.5-5.1); SODIUM SERUM 131 mmol/L (136-145)
[2021-12-05 16:39] LABS: UREA NITROGEN, BLOOD 226 mg/dL (7-18)
--- NOTE | 2021-12-05 17:10 | NUR ---
RN NOTES CALLED KARSTEN AT 1709 FROM ICU AND GAVE THE REPORT.
--- NOTE | 2021-12-05 17:30 | NUR ---
RN NOTES TRANSFER THE PATIENT TO ICU WITH DARIO AT 1730 , 2RT PRESENT DURING TRANSFER.
--- NOTE | 2021-12-05 20:13 | NUR ---
RN NOTES [facility] DIDNT TAKE THE PATIENT FOR DIALYSIS FOR LOW BLOOD PRESSURE OF 98/28.
--- NOTE | 2021-12-05 20:19 | NUR ---
RN NOTES DR LEDESMA ORDERED THE TRANSFER OF THE PATIENT TO ICU.
[2021-12-06] MEDS ORDERED: NUT.237L67 GT (08:28)
[2021-12-06] MEDS ORDERED: PANT40SU2 GT (08:28)
[2021-12-06] MEDS ORDERED: BLOO-668 IN (08:28)
[2021-12-06] MEDS ORDERED: MIDO10TA GT ×2 (08:28)
[2021-12-06] MEDS ORDERED: NUTR1PAC14 GT (08:28)
[2021-12-06] MEDS ORDERED: AMIN30LI2 GT (08:28)
[2021-12-06] MEDS ORDERED: ONDA4VIA52 IV (08:28)
[2021-12-06] MEDS ORDERED: PHEN15TA18 GT (08:28)
[2021-12-06] MEDS ORDERED: DEXT50DI8 IV (08:28)
[2021-12-06] MEDS ORDERED: CHOL4PAC9 GT (08:28)
[2021-12-06] MEDS ORDERED: [UNRECOGNIZED DRUG - CODE] IV (08:28)
[2021-12-06] MEDS ORDERED: MAGN400O6 GT (08:28)
[2021-12-06] MEDS ORDERED: BACI28.33 TP (08:28)
[2021-12-06] MEDS ORDERED: MAG30ORA GT (08:28)
[2021-12-06] MEDS ORDERED: IPRA0.2S9 IH (08:28)
[2021-12-06] MEDS ORDERED: PHEN50VI4 IV (08:28)
[2021-12-06] MEDS ORDERED: INSU100V28 SQ (08:28)
[2021-12-06] MEDS ORDERED: METO5SOL20 GT (08:28)
[2021-12-06] MEDS ORDERED: MINE454C11 TP (08:28)
== END 2021-12-05 17:10 | disposition short-term general hospital (02) | DRG 207 ==
LOC: MED 10:50 → SAOV 11:04
PROVIDERS: ADMIT Internal Medicine; ATTEND Internal Medicine
PROC: 5A1955Z Respiratory Ventilation, Greater than 96 Consecutive Hours (ICD-10-PCS; principal; 2021-10-17)
PROC: 4A00X4Z Measurement of Central Nervous Electrical Activity, External Approach (ICD-10-PCS; 2021-11-10)
PROC: 02HV33Z Insertion of Infusion Device into Superior Vena Cava, Percutaneous Approach (ICD-10-PCS; 2021-11-16)
PROC: B548ZZA Ultrasonography of Superior Vena Cava, Guidance (ICD-10-PCS; 2021-11-16)
DX: J96.20 Acute and chronic respiratory failure, unspecified whether with hypoxia or hypercapnia (principal); J15.6 Pneumonia due to other Gram-negative bacteria; L89.154 Pressure ulcer of sacral region, stage 4; N18.6 End stage renal disease; J86.9 Pyothorax without fistula; G93.41 Metabolic encephalopathy; D68.59 Other primary thrombophilia; M46.28 Osteomyelitis of vertebra, sacral and sacrococcygeal region; E44.0 Moderate protein-calorie malnutrition; I13.2 Hypertensive heart and chronic kidney disease with heart failure and with stage 5 chronic kidney disease, or end stage renal disease; N17.9 Acute kidney failure, unspecified; Z16.21 Resistance to vancomycin; Z16.24 Resistance to multiple antibiotics; Z43.1 Encounter for attention to gastrostomy; Z99.11 Dependence on respirator [ventilator] status; K21.9 Gastro-esophageal reflux disease without esophagitis; E11.69 Type 2 diabetes mellitus with other specified complication; B96.5 Pseudomonas (aeruginosa) (mallei) (pseudomallei) as the cause of diseases classified elsewhere; D63.1 Anemia in chronic kidney disease; D75.839 Thrombocytosis, unspecified; E11.22 Type 2 diabetes mellitus with diabetic chronic kidney disease; G40.909 Epilepsy, unspecified, not intractable, without status epilepticus; H40.9 Unspecified glaucoma; I05.0 Rheumatic mitral stenosis; I25.10 Atherosclerotic heart disease of native coronary artery without angina pectoris; I27.20 Pulmonary hypertension, unspecified; I50.9 Heart failure, unspecified; I70.0 Atherosclerosis of aorta; K80.20 Calculus of gallbladder without cholecystitis without obstruction; K82.8 Other specified diseases of gallbladder; M85.80 Other specified disorders of bone density and structure, unspecified site; Z87.440 Personal history of urinary (tract) infections; R13.10 Dysphagia, unspecified; Z20.822 Contact with and (suspected) exposure to COVID-19; Z85.3 Personal history of malignant neoplasm of breast; Z86.73 Personal history of transient ischemic attack (TIA), and cerebral infarction without residual deficits; Z88.0 Allergy status to penicillin; Z93.0 Tracheostomy status; Z99.2 Dependence on renal dialysis
CPT/HCPCS: 31720; 36415; 36569; 70450-TC; 71045-TC; 74018; 80048-TC; 80184; 80185-TC; 81001; 82247-TC; 82248-TC; 82565-TC; 82962-TC; 83605-TC; 83735-TC; 84100-TC; 85025-TC; 87040-TC; 87070-TC; 87086-TC; 87186-TC; 92507-TC; 92521; 94003-TC; 94760-TC; 94762-TC; 94799-TC; 95819-TC; 97110-TC; 97112-TC; 97530-TC; A4216; A4623; A6253; A6403; A7526; J0713; J0878; J0885; J1165; J1815; J2185; J2765; J2997; J7030; J7040; J7050; J7060; J8597; P9047; Q9963; Q9967; U0003

== ENCOUNTER 2021-11-19 16:52 | Emergency (ER) | payer MEDICARE, OTHER ==
[~2021-11-19] VITALS: Ht 160 cm; Wt 62.1 kg
[~2021-11-19 16:52] MED LIST changes: +EPOE4000 IJ; -EPOE4000 IV; -LATA2.5D15 EACHEYE; +LATA2.5D15 OP
[2021-11-19 17:04] VITALS: BP 105/50
--- NOTE | 2021-11-19 17:07 | NUR ---
SEEN AND EXAMINED BY DR ZELAYA. IN NO APPRARENT DISTRESS. SENT TO 3RD FLOOR IN STABLE CONDITION.
[2021-11-20] MEDS ORDERED: METOCLOPRAMIDE HCL 10 MG/10 ML UDC ONE (21:40)
== END 2021-11-19 17:11 | disposition short-term general hospital (02) ==
LOC: ER 17:11
DX: Z00.8 Encounter for other general examination (principal); I95.3 Hypotension of hemodialysis; K21.9 Gastro-esophageal reflux disease without esophagitis; E11.9 Type 2 diabetes mellitus without complications; Z88.1 Allergy status to other antibiotic agents; Z88.8 Allergy status to other drugs, medicaments and biological substances; Z79.899 Other long term (current) drug therapy; Z79.4 Long term (current) use of insulin; Z93.1 Gastrostomy status
CPT/HCPCS: J8597

== ENCOUNTER 2021-11-26 16:23 | Emergency (ER) | payer MEDICARE, OTHER ==
[~2021-11-26] VITALS: Ht 167.6 cm; Wt 65.8 kg
--- NOTE | 2021-11-26 16:30 | NUR ---
NADIA WELLS From Dialysis Center "was across the stret in dialysis from Sub Acute room 321 Had episode of low bp fpc through dialysis". Will continue to monitor the patient.
--- NOTE | 2021-11-26 16:31 | NUR ---
Medically Cleared by ER provider Mack CONDE to direct admit to sub-acute.
--- NOTE | 2021-11-26 16:37 | NUR ---
Patient discharged to home in stable condition. Written and verbal after care instructions given. Patient verbalizes understanding of instruction.
[2021-11-26 16:38] VITALS: BP 108/51
== END 2021-11-26 16:39 | disposition home or self-care (01) ==
LOC: ER 16:25
DX: I95.3 Hypotension of hemodialysis (principal); N19 Unspecified kidney failure; I10 Essential (primary) hypertension; J96.90 Respiratory failure, unspecified, unspecified whether with hypoxia or hypercapnia; K21.9 Gastro-esophageal reflux disease without esophagitis; E11.9 Type 2 diabetes mellitus without complications; Z86.73 Personal history of transient ischemic attack (TIA), and cerebral infarction without residual deficits; Z85.3 Personal history of malignant neoplasm of breast; Z88.0 Allergy status to penicillin; Z88.8 Allergy status to other drugs, medicaments and biological substances; Z88.9 Allergy status to unspecified drugs, medicaments and biological substances; Z79.84 Long term (current) use of oral hypoglycemic drugs; Z79.810 Long term (current) use of selective estrogen receptor modulators (SERMs); Z79.4 Long term (current) use of insulin; Z79.899 Other long term (current) drug therapy

== ENCOUNTER 2021-12-05 17:17 | Inpatient (IN) | payer MEDICARE, OTHER ==
[2021-12-05] VITALS (23 sets, daily range): BP systolic 82–133; BP diastolic 29–70
[~2021-12-05] VITALS: Ht 160 cm; Wt 96.2 kg
[~2021-12-05 17:17] MED LIST changes: -EPOE4000 IJ; +EPOE4000 IV; +IPRATROPIUM NEB FS 0.5 MG/2.5 ML AMPUL.NEB ONE; +LATA2.5D15 EACHEYE; -LATA2.5D15 OP
[2021-12-05] MEDS ORDERED: MAGNESIUM HYDROXIDE 30 ML UDC PO PRN ×2 (17:30→18:59)
[2021-12-05] MEDS ORDERED: ONDANSETRON HCL/PF 4 MG/2 ML VIAL IVP PRN ×2 (17:30→18:59)
[2021-12-05] MEDS ORDERED: ACETAMINOPHEN 325 MG TABLET PO PRN (17:30)
[2021-12-05] MEDS ORDERED: MAG HYDROX/AL HYDROX/SIMETH 30 ML UDC PO PRN ×2 (17:30→18:00)
[2021-12-05] MEDS ORDERED: CEFEPIME 1 GM VIAL IM SCH (17:30)
[2021-12-05] MEDS ORDERED: ZOLPIDEM TARTRATE 5 MG TABLET PO PRN (17:30)
[2021-12-05] MEDS ORDERED: ENOXAPARIN SODIUM 40 MG/0.4 ML DISP.SYRIN SQ SCH (18:00)
[2021-12-05] MEDS: COLISTIMETHATE SODIUM 150 MG in IV NS 0.9% 50 ML IV SCH (18:20)
[2021-12-05 18:38] LABS: MAGNESIUM 3.8 mg/dL (1.8-2.4); PHOSPHORUS 6.1 mg/dL (2.5-4.9)
[2021-12-05 18:49] LABS: THYROID STIMULATING HORMONE 4.915 uIU/mL (0.358-3.74)
[2021-12-05] MEDS: DAPTOMYCIN IV SCH (18:56)
[2021-12-05] MEDS: NS 0.9% IV SCH (18:56)
[2021-12-05] MEDS ORDERED: DEXTROSE 50%-WATER 50 ML DISP.SYRIN IV PRN (18:59)
--- NOTE | 2021-12-05 19:24 | NUR ---
Admitting notes Patient admitted from Sub acute overflow. Patient received obtunded and on mechanical vent setting with 02 of 97%. Vitals/weight assessed. Wound pictures taken and placed in chart. Wound consult initiated. Patient noted with left upper arm picc line and right chest wall perma cath for HD. Patient will be monitored. Patient remains NPO per MD orders. PRn levophed order obtained to keep SBP >60.
[2021-12-05] MEDS: CEFEPIME 1 GM in IV D5W 50 ML IV SCH (20:00)
[2021-12-05] MEDS: IPRATROPIUM NEB FS 0.5 MG/2.5 ML AMPUL.NEB NEB SCH (20:01)
[2021-12-05] MEDS: METOCLOPRAMIDE HCL 10 MG/10 ML UDC GT SCH (21:00)
[2021-12-05] MEDS: NOREPINEPHRINE 8 MG in IV NS 0.9% 242 ML IV PRN (21:15)
[2021-12-05] MEDS: ACETAMINOPHEN 650 MG/SUPP.RECT RC PRN (22:00)
[2021-12-05] MEDS: LATANOPROST EYE DROP 0.005% 2.5 ML BOTTLE OP SCH (22:00)
[2021-12-05] MEDS: BLOOD SUGAR DIAGNOSTIC 1 EACH STRIP IN SCH (23:37)
[2021-12-05] MEDS: INSULIN REGULAR, HUMAN 100 UNIT/ML 3 ML VIAL SQ PRN (23:42)
[2021-12-06] VITALS (109 sets, daily range): BP systolic 59–139; BP diastolic 26–59
[2021-12-06] MEDS: IPRATROPIUM NEB FS 0.5 MG/2.5 ML AMPUL.NEB NEB SCH ×4 (01:53→20:44)
--- NOTE | 2021-12-06 04:15 | NUR ---
SHRIMP CLEANER PT NOTED TO BECOME DAJA ON MONITOR. NO PULSE PALPABLE. COMPRESSIONS STARTED AND PT IMMEDIATELY NOTED NSR ON MONITOR WITH PULSES PALPABLE. THEN PT NOTED WITH IRREGULAR RHYTHM ON MONITOR. EKG DONE. JOVITA BLACKMON NOTIFIED WITH NEW ORDERS RECEIVED. Addendum: 12/06/21 at 0626 by BALDEMAR COUGHLIN RN FRANNY VEGA UPDATED ON PTS CONDITION
[2021-12-06] MEDS: METOCLOPRAMIDE HCL 10 MG/10 ML UDC GT SCH (04:28)
[2021-12-06 05:32] LABS: BASOPHILS # (AUTO) 0.2 K/uL (0.0-0.2); BASOPHILS % (AUTO) 0.6 % (0.0-2.0); EOSINOPHILS % (AUTO) 0.1 % (0.0-6.0); HEMATOCRIT 26 % (33-45); LYMPHOCYTES # (AUTO) 2.3 K/uL (0.8-4.8); LYMPHOCYTES % (AUTO) 7.7 % (20.0-44.0); MEAN CORPUSCULAR HGB CONC 31 g/dl (31.0-36.0); MEAN CORPUSCULAR VOLUME 99 fL (82-100); MONOCYTES # (AUTO) 1.7 K/uL (0.1-1.30); MONOCYTES % (AUTO) 5.7 % (2.0-12.0); NEUTROPHILS # (AUTO) 25.7 K/uL (1.8-8.9); NEUTROPHILS % (AUTO) 85.9 % (43.0-81.0); PLATELET COUNT (AUTO) 353 K/uL (150-450); RED BLOOD CELL COUNT(AUTO) 2.64 MIL/uL (4.0-5.2); WHITE BLOOD COUNT (AUTO) 29.9 K/uL (4.3-11.0)
[2021-12-06] MEDS: BLOOD SUGAR DIAGNOSTIC 1 EACH STRIP IN SCH ×4 (05:43→23:16)
[2021-12-06 06:24] LABS: ALANINE AMINOTRANSFERASE 43 U/L (12-78); ALBUMIN 2.2 g/dL (3.4-5.0); ALKALINE PHOSPHATASE 294 U/L (46-116); ASPARTATE AMINOTRANSFERASE 50 U/L (15-37); BILIRUBIN,TOTAL 1.3 mg/dL (0.2-1.0); CALCIUM, SERUM 10.8 mg/dL (8.5-10.1); CARBON DIOXIDE 11 mmol/L (21-32); CHLORIDE 92 mmol/L (98-107); CREATININE 3.7 mg/dL (0.6-1.3); GLUCOSE 125 mg/dL (74-106); MAGNESIUM 3.6 mg/dL (1.8-2.4); PHOSPHORUS 5.8 mg/dL (2.5-4.9); POTASSIUM 4.1 mmol/L (3.5-5.1); SODIUM SERUM 130 mmol/L (136-145); TOTAL PROTEIN, SERUM 7.5 g/dL (6.4-8.2)
[2021-12-06 06:32] LABS: THYROID STIMULATING HORMONE 4.769 uIU/mL (0.358-3.74)
[2021-12-06 06:36] LABS: UREA NITROGEN, BLOOD 239 mg/dL (7-18)
[2021-12-06 06:53] LABS: SERUM AMMONIA 21 umol/L (11-32)
--- NOTE | 2021-12-06 06:53 | NUR ---
FRATERNITY ADVISER CALLED LAB TO RUN TROPONIN STAT THEY HAD CANCELLED IT
[2021-12-06] MEDS ORDERED: PANTOPRAZOLE 40 MG TABLET.DR PO SCH (07:30)
--- NOTE | 2021-12-06 07:30 | NUR ---
SENIOR ERP CONSULTANT OPENING NOTES Patient is in bed and obtunded. On mechanical vent settings of peep 5, fi02 30 , ac 14, tv 500. No grimacing and moaning noted. Noted with temp of 99.5 Degree F and cooling measures applied.Will monitor closely for temperature.
[2021-12-06] MEDS ORDERED: INSU100V28 SQ (08:28)
[2021-12-06] MEDS ORDERED: CHOL4PAC9 GT (08:28)
[2021-12-06] MEDS ORDERED: AMIN30LI2 GT (08:28)
[2021-12-06] MEDS ORDERED: ONDA4VIA52 IV (08:28)
[2021-12-06] MEDS ORDERED: MAGN400O6 GT (08:28)
[2021-12-06] MEDS ORDERED: PHEN50VI4 IV (08:28)
[2021-12-06] MEDS ORDERED: NUT.237L67 GT (08:28)
[2021-12-06] MEDS ORDERED: MIDO10TA GT ×2 (08:28)
[2021-12-06] MEDS ORDERED: BACI28.33 TP (08:28)
[2021-12-06] MEDS ORDERED: BLOO-668 IN (08:28)
[2021-12-06] MEDS ORDERED: PANT40SU2 GT (08:28)
[2021-12-06] MEDS ORDERED: PHEN15TA18 GT (08:28)
[2021-12-06] MEDS ORDERED: MINE454C11 TP (08:28)
[2021-12-06] MEDS ORDERED: MAG30ORA GT (08:28)
[2021-12-06] MEDS ORDERED: METO5SOL20 GT (08:28)
[2021-12-06] MEDS ORDERED: DEXT50DI8 IV (08:28)
[2021-12-06] MEDS ORDERED: [UNRECOGNIZED DRUG - CODE] IV (08:28)
[2021-12-06] MEDS ORDERED: IPRA0.2S9 IH (08:28)
[2021-12-06] MEDS ORDERED: NUTR1PAC14 GT (08:28)
--- NOTE | 2021-12-06 08:30 | NUR ---
Received call from lab that troponin lab will be repeated prior to releasing the results. Results obtained and relayed to MD Lombardo. Per MD to check tropnin in 6 hours.
[2021-12-06] MEDS: CHLORHEXIDINE GLUCONATE 15 ML UDC MM SCH ×2 (08:42→17:00)
[2021-12-06] MEDS: ACETAMINOPHEN 650 MG/SUPP.RECT RC PRN ×2 (08:42→18:16)
[2021-12-06] MEDS: METOCLOPRAMIDE HCL 10 MG/2 ML VIAL IV SCH ×3 (08:44→21:21)
[2021-12-06] MEDS: DORZOLAMIDE OPTH 2% 10 ML BOTTLE OP SCH ×2 (08:44→18:16)
[2021-12-06] MEDS: PANTOPRAZOLE 40 MG VIAL IV SCH (08:44)
[2021-12-06] MEDS: MIDODRINE HCL (5MG) 5 MG TABLET GT SCH (08:45)
--- NOTE | 2021-12-06 08:45 | NUR ---
Patient noted with temp of 101.5 DEGREE.Rectal anti pyretic given. Cooling measures applied. Will monitor.
[2021-12-06] MEDS: ARGININE/GLUTAMINE/CALCIUM BMB 1 EACH POWD.PACK GT SCH (09:00)
[2021-12-06] MEDS ORDERED: APIXABAN 2.5 MG TABLET PO SCH (09:00)
[2021-12-06] MEDS: PROSOURCE / PROSTAT (PYXIS) 30 ML UDC GT SCH ×2 (09:00→17:00)
--- NOTE | 2021-12-06 09:00 | NUR ---
Noted with temp of 101.4, rectal tyelnol suppository given. Cooling measures applied
--- NOTE | 2021-12-06 09:15 | NUR ---
Patient's low intermittent suction to gastric tube turned off. No drainage at this time. Morning medications given and held suction
--- NOTE | 2021-12-06 09:46 | NUR ---
Straight in and out cath done for UA but unable to obtain urine.
--- NOTE | 2021-12-06 09:50 | NUR ---
Received order from MD Catnor for Lactic acid and ABG. RT made aware.
[2021-12-06] MEDS: ALBUMIN 25% 25 GM in PREMIX 1 EA IV PRN (11:01)
--- NOTE | 2021-12-06 12:04 | NUR ---
Per MD Lombardo to keep patient NPO as of now. Informed MD regarding concerns of family and per MD to still continue patient as NPO
[2021-12-06] MEDS ORDERED: HEPARIN INFUSION/D5W 500 ML IV PRN (12:30)
[2021-12-06] MEDS: NOREPINEPHRINE 8 MG in IV NS 0.9% 242 ML IV PRN ×2 (13:01→19:30)
[2021-12-06] MEDS: BACITRACIN/POLYMYXIN B 15 GM TUBE TP SCH (13:18)
[2021-12-06] MEDS: INSULIN REGULAR, HUMAN 100 UNIT/ML 3 ML VIAL SQ PRN ×2 (13:21→18:27)
[2021-12-06] MEDS: EPOETIN ALFA-EPBX 4,000 UNIT/ML VIAL IV PRN (13:41)
[2021-12-06 13:58] LABS: NEUTROPHILS % (MANUAL) 77 (42-76)
[2021-12-06 13:59] LABS: LYMPHOCYTES % (MANUAL) 10 % (16-48); METAMYELOCYTES % 2 % (0-0); MONOCYTES % (MANUAL) 9 % (0-11.0); MYELOCYTES % 2 % (0-0)
[2021-12-06 15:26] LABS: BILIRUBIN,DIRECT 1.7 mg/dL (0.0-0.2)
--- NOTE | 2021-12-06 15:40 | NUR ---
Heparin drip dc'd as orders per MD Henderson
[2021-12-06 15:54] LABS: ABG BASE EXCESS -5.6 mmol/L; ABG PCO2 30.8 mmHg (35.0-45.0); ABG PH 7.395 (7.350-7.450); ABG PO2 76.1 mmHg (75.0-100.0); AaDO2 101.6 mmHg; COHb 0.4 % (0.5-1.5); MetHb 0.1 % (0.0-1.5); O2Hb 95.5 % (94.0-97.0); SITE, ABG Right Radial; VENT MODE, BG ac14 400 +0 30%
[2021-12-06] MEDS: APIXABAN 2.5 MG TABLET PO SCH (18:14)
[2021-12-06] MEDS: COLISTIMETHATE SODIUM 150 MG in IV NS 0.9% 50 ML IV SCH (18:20)
--- NOTE | 2021-12-06 19:01 | NUR ---
NEW CAR SALESPERSON CLOSING NOTES Patient is in bed and obtunded. On mechanical vent settings of peep 0, fi02 30 , ac 14, tv 500. Patient did not have any bm during shift. No grimacing and moaning noted. Noted with temp of 101.2 and cooling measures applied and rectal suppository given for anti pyretic. Turned and repositioned q2h and prn. Endorsed to next shift to monitor.
[2021-12-06] MEDS: CEFEPIME 1 GM in IV D5W 50 ML IV SCH (19:30)
[2021-12-06] MEDS: LATANOPROST EYE DROP 0.005% 2.5 ML BOTTLE OP SCH (21:21)
[2021-12-07] VITALS (74 sets, daily range): BP systolic 51–157; BP diastolic 27–75
[2021-12-07] MEDS: IPRATROPIUM NEB FS 0.5 MG/2.5 ML AMPUL.NEB NEB SCH ×4 (02:14→20:09)
[2021-12-07] MEDS: ACETAMINOPHEN 650 MG/SUPP.RECT RC PRN ×2 (02:59→09:36)
[2021-12-07 04:33] LABS: BASOPHILS # (AUTO) 0.1 K/uL (0.0-0.2); BASOPHILS % (AUTO) 0.4 % (0.0-2.0); EOSINOPHILS % (AUTO) 0.3 % (0.0-6.0); HEMATOCRIT 25 % (33-45); HEMOGLOBIN 7.8 g/dL (11.5-14.8); LYMPHOCYTES % (AUTO) 9.7 % (20.0-44.0); MEAN CORPUSCULAR HGB CONC 31 g/dl (31.0-36.0); MEAN CORPUSCULAR VOLUME 96 fL (82-100); MONOCYTES # (AUTO) 2.1 K/uL (0.1-1.30); MONOCYTES % (AUTO) 9.7 % (2.0-12.0); NEUTROPHILS # (AUTO) 16.9 K/uL (1.8-8.9); NEUTROPHILS % (AUTO) 79.9 % (43.0-81.0); PLATELET COUNT (AUTO) 314 K/uL (150-450); RED BLOOD CELL COUNT(AUTO) 2.61 MIL/uL (4.0-5.2); WHITE BLOOD COUNT (AUTO) 21.1 K/uL (4.3-11.0)
[2021-12-07 04:59] LABS: CALCIUM, SERUM 10.1 mg/dL (8.5-10.1); CARBON DIOXIDE 18 mmol/L (21-32); CHLORIDE 98 mmol/L (98-107); CREATININE 1.9 mg/dL (0.6-1.3); GLUCOSE 105 mg/dL (74-106); MAGNESIUM 2.4 mg/dL (1.8-2.4); PHOSPHORUS 2.3 mg/dL (2.5-4.9); POTASSIUM 3.4 mmol/L (3.5-5.1); SODIUM SERUM 136 mmol/L (136-145); UREA NITROGEN, BLOOD 72 mg/dL (7-18)
[2021-12-07] MEDS: METOCLOPRAMIDE HCL 10 MG/2 ML VIAL IV SCH ×3 (05:05→21:14)
[2021-12-07] MEDS: BLOOD SUGAR DIAGNOSTIC 1 EACH STRIP IN SCH ×3 (05:05→17:41)
[2021-12-07] MEDS: NOREPINEPHRINE 8 MG in IV NS 0.9% 242 ML IV PRN ×4 (06:51→23:18)
--- NOTE | 2021-12-07 08:00 | NUR ---
rn notes received patient trachea/vent dependent, no acute respiratory distress, t-102.7F , on bedside monitor shows hr 98. patient has multiple wounds, seen wound nurse, picture taken, anuric, hd cath on right upper chest intact, picc line on left up arm has some resistance to flash. assist turn and reposition, gt intact, due medication administered via Gt, patient npo. will follow up.
[2021-12-07] MEDS ORDERED: POTASSIUM PHOSPHATE MM 15 MMOL in IV NS 0.9% 250 ML IV SCH (08:30)
[2021-12-07] MEDS: MIDODRINE HCL (5MG) 5 MG TABLET GT SCH (09:00)
--- NOTE | 2021-12-07 09:03 | NUR ---
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 SURGICAL AND DPM CONSULTS CALLED TO DR HE AND DR TALBERT. RECOMMENDATIONS MADE FOR SKIN PROTECTION AND WOUND CARE. DISCUSSED WITH NURSING STAFF. PT IS ON ENRICO ISOFLEX LOW AIRLOSS BED. 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 DUE TO MULTIPLE CO-MORBIDITIES, FURTHER SKIN BREAKDOWN MAY BE UNAVOIDABLE. IN AGREEMENT WITH PLAN OF CARE. Addendum: 12/07/21 at 0912 by BYRON LAZO WNDNU Amended: Links added.
[2021-12-07] MEDS: DAKINS HALF STRENGTH (0.25%) 480 ML BOTTLE TOP SCH (09:35)
[2021-12-07] MEDS: Z GUARD REMEDY 4 OZ OINT TP PRN (09:35)
--- NOTE | 2021-12-07 09:36 | NUR ---
rn notes administered Tylenol rectal sup for T-102.7 F.
[2021-12-07] MEDS: CHLORHEXIDINE GLUCONATE 15 ML UDC MM SCH ×2 (09:39→17:40)
[2021-12-07] MEDS: DORZOLAMIDE OPTH 2% 10 ML BOTTLE OP SCH ×2 (09:40→17:40)
[2021-12-07] MEDS: APIXABAN 2.5 MG TABLET PO SCH ×2 (09:45→18:16)
[2021-12-07] MEDS: PANTOPRAZOLE 40 MG VIAL IV SCH (09:51)
[2021-12-07] MEDS: BACITRACIN/POLYMYXIN B 15 GM TUBE TP SCH (09:53)
[2021-12-07] MEDS ORDERED: NEUTRA PHOS 1 POWD.PACKET GT ONE (10:00)
[2021-12-07] MEDS ORDERED: PHENOBARBITAL SODIUM 130 MG/ML VIAL IJ SCH (10:00)
[2021-12-07] MEDS ORDERED: PHENOBARBITAL 20 MG/5 ML UDC GT SCH (10:00)
[2021-12-07] MEDS ORDERED: POTASSIUM CL. PREMIX PERIPHER. 50 ML IV SCH (10:00)
[2021-12-07] MEDS: PHENYTOIN SODIUM IV 100 MG/2ML VIAL IV SCH ×2 (13:00→21:14)
[2021-12-07] MEDS ORDERED: PHENYTOIN SODIUM IV 100 MG/2ML VIAL IV SCH (13:00)
[2021-12-07] MEDS: NEPRO 1,000 ML BOTTLE GT SCH (13:01)
[2021-12-07] MEDS: PROSOURCE / PROSTAT (PYXIS) 30 ML UDC GT SCH ×2 (14:29→17:40)
[2021-12-07] MEDS: ARGININE/GLUTAMINE/CALCIUM BMB 1 EACH POWD.PACK GT SCH (14:29)
[2021-12-07] MEDS: METRONIDAZOLE 500 MG TABLET PO SCH ×2 (15:36→21:14)
[2021-12-07] MEDS ORDERED: PHENOBARBITAL 30 MG TABLET GT SCH (17:00)
[2021-12-07] MEDS: ACETAMINOPHEN 650 MG/20.3 ML UDC GT PRN (18:04)
--- NOTE | 2021-12-07 18:04 | NUR ---
RN NOTES T- 101.8F ADMINISTERED TYLENOL 650 ML VIA GT , DUE MEDICATION DONE, PM CARE DONE, BS-138MG/DL COVERAGE GIVEN, ASSIST TURN AND REPOSTION Q 2 HR. PATIENT ON COOLING MEASURE WELL, INFUSING LEVOPHED 0. 3MCG/KG/HR, ASSIST TURN AND REPOSTION Q 2 HR. RECTAL TUBE INTACT, PATIENT ANURIC. ENDORSED ONCOMING NURSE OTIS.
[2021-12-07] MEDS: COLISTIMETHATE SODIUM 150 MG in IV NS 0.9% 50 ML IV SCH (18:17)
[2021-12-07] MEDS: INSULIN REGULAR, HUMAN 100 UNIT/ML 3 ML VIAL SQ PRN (18:22)
--- NOTE | 2021-12-07 18:33 | NUR ---
YOUTH CARE PROFESSIONAL RECEIVED PT FROM ER VIA DARIO. REPORT RECEIVED FROM CEDRICK BENZ RN. PT AWAKE AND ALERT. NS BOLUS FINISHING. ANTIBIOTIC INFUSING. INSULIN DRIP INFUSING AT 4 UNITS/HR PER RIGHT ARM IV SITE. PT REMAINS NPO. STATED PAIN RELIEVED AFTER MED GIVEN IN ER. Addendum: 12/07/21 at 1951 by DEBORAH BASSETT RN [id number] above notes is wrong eatery.
[2021-12-07] MEDS: VANCOMYCIN HCL 125 MG/2.5 ML ORAL.SUSP PO SCH (19:14)
[2021-12-07] MEDS: DAPTOMYCIN IV SCH (19:15)
[2021-12-07] MEDS: NS 0.9% IV SCH (19:15)
--- NOTE | 2021-12-07 19:20 | NUR ---
RN OPENING NOTES RECEIVED PATIENT ON BED, SLEEPING, ON NASAL CANULA @ 2LPM, RESPIRATORY EVEN AND UNLABORED, NO S/S OF DISTRESS NOTED. REMAIN AFEBRILE. PATIENT NOTED WITH NASEEM PICC LINE, INTACT IN PLACED, FLUSHED WITH NS. RUNNING WITH POTASSIUM 10MEQ IN 0.45 NS 1L @ 50ML/HR. WITH GTUBE IN PLACED, VERIFIED PLACEMENT BY AUSCULTATION, WITH RESIDUAL OF 10 ML UPON ASPIRATION, RUNNING WITH GLUCERNA 1.2 @ 55 ML/HR. ALL SAFETY PRECAUTION PROVIDED, BED IN LOWEST POSITION, LOCKED. CONTINUE TO MONITOR. Addendum: 12/08/21 at 0745 by FLORIN AGUSTIN RN ERROR , WRONG PATIENT
--- NOTE | 2021-12-07 19:30 | NUR ---
RN OPENING NOTES RECEIVED PATIENT ON BED, SLEEPING, ON MECHANICAL VENTILATION SETTINGS TOLERATED WELL, RESPIRATORY EVEN AND UNLABORED, NOTED WITH FEVER 100.6 F, NO S/S OF DISTRESS NOTED. PATIENT NOTED WITH XIOMARA PICC LINE, INTACT IN PLACED, FLUSHED WITH NS WITH SOME RESISTANCE. RUNNING ON LEVOPED @ 0.3 mcg/kg/min. WITH GTUBE IN PLACED, VERIFIED PLACEMENT BY AUSCULTATION, WITH RESIDUAL OF 20 ML UPON ASPIRATION, RUNNING WITH NEPHRO @ 45 ML/HR, WITH RECTAL TUBE IN PLACE. ALL SAFETY PRECAUTION PROVIDED, BED IN LOWEST POSITION, LOCKED. CONTINUE TO MONITOR.
[2021-12-07] MEDS ORDERED: CEFEPIME 2 GM in IV D5W 50 ML IV SCH (20:00)
[2021-12-07] MEDS: PHENOBARBITAL 30 MG TABLET GT SCH (21:13)
[2021-12-07] MEDS: DAKINS QUARTER STRENGTH (0.125%) 480 ML BOTTLE TOP SCH (21:30)
[2021-12-07] MEDS: THERAHONEY GEL 1.5 OZ TUBE TP SCH (21:30)
--- NOTE | 2021-12-07 21:30 | NUR ---
RN NOTES [employer]ERAH[employer] AND [facility]UTION NOT AVAILABLE AT THIS TIME , WILL START TOMORROW, ALL WOUND DRESSING HAS BEEN CHANGED.
[2021-12-07] MEDS: LATANOPROST EYE DROP 0.005% 2.5 ML BOTTLE OP SCH (22:21)
[2021-12-08] VITALS (40 sets, daily range): BP systolic 81–136; BP diastolic 38–57
[2021-12-08] MEDS: BLOOD SUGAR DIAGNOSTIC 1 EACH STRIP IN SCH ×5 (00:31→23:17)
[2021-12-08] MEDS: VANCOMYCIN HCL 125 MG/2.5 ML ORAL.SUSP PO SCH ×5 (00:34→23:09)
[2021-12-08] MEDS: ACETAMINOPHEN 650 MG/20.3 ML UDC GT PRN ×2 (00:34→17:15)
[2021-12-08] MEDS: INSULIN REGULAR, HUMAN 100 UNIT/ML 3 ML VIAL SQ PRN ×5 (00:39→23:18)
[2021-12-08] MEDS: IPRATROPIUM NEB FS 0.5 MG/2.5 ML AMPUL.NEB NEB SCH ×4 (01:30→19:52)
[2021-12-08 04:54] LABS: CALCIUM, SERUM 9.9 mg/dL (8.5-10.1); CARBON DIOXIDE 15 mmol/L (21-32); CHLORIDE 97 mmol/L (98-107); CREATININE 2.3 mg/dL (0.6-1.3); MAGNESIUM 2.6 mg/dL (1.8-2.4); PHOSPHORUS 6.7 mg/dL (2.5-4.9); POTASSIUM 3.6 mmol/L (3.5-5.1); SODIUM SERUM 134 mmol/L (136-145)
[2021-12-08] MEDS: NOREPINEPHRINE 8 MG in IV NS 0.9% 242 ML IV PRN ×4 (04:54→21:03)
[2021-12-08 04:55] LABS: BASOPHILS # (AUTO) 0.1 K/uL (0.0-0.2); BASOPHILS % (AUTO) 0.5 % (0.0-2.0); EOSINOPHILS % (AUTO) 0.4 % (0.0-6.0); HEMATOCRIT 26 % (33-45); HEMOGLOBIN 7.7 g/dL (11.5-14.8); LYMPHOCYTES # (AUTO) 1.4 K/uL (0.8-4.8); MEAN CORPUSCULAR HGB CONC 29 g/dl (31.0-36.0); MEAN CORPUSCULAR VOLUME 102 fL (82-100); MONOCYTES % (AUTO) 6.8 % (2.0-12.0); NEUTROPHILS # (AUTO) 25.2 K/uL (1.8-8.9); NEUTROPHILS % (AUTO) 87.3 % (43.0-81.0); PLATELET COUNT (AUTO) 338 K/uL (150-450); RED BLOOD CELL COUNT(AUTO) 2.59 MIL/uL (4.0-5.2); WHITE BLOOD COUNT (AUTO) 28.9 K/uL (4.3-11.0)
[2021-12-08] MEDS: METOCLOPRAMIDE HCL 10 MG/2 ML VIAL IV SCH ×3 (05:12→20:14)
[2021-12-08] MEDS: PHENYTOIN SODIUM IV 100 MG/2ML VIAL IV SCH ×3 (05:12→20:15)
[2021-12-08] MEDS: METRONIDAZOLE 500 MG TABLET PO SCH (05:12)
[2021-12-08 05:40] LABS: GLUCOSE 371 mg/dL (74-106); UREA NITROGEN, BLOOD 93 mg/dL (7-18)
--- NOTE | 2021-12-08 07:15 | NUR ---
RN OPENING NOTES RECEIVED PATIENT ON BED, SLEEPING, ON MECHANICAL VENTILATION SETTINGS TOLERATED WELL, BREATHING EVEN AND UNLABORED, NO S/S OF DISTRESS NOTED. PATIENT NOTED WITH XIOMARA PICC LINE, INTACT IN PLACED, FLUSHED WITH NS RUNNING ON LEVOPED @ 0.3 mcg/kg/min. WITH GTUBE IN PLACED, VERIFIED PLACEMENT BY AUSCULTATION, WITH RESIDUAL OF 25 ML UPON ASPIRATION, RUNNING WITH NEPHRO @ 45 ML/HR, WITH RECTAL TUBE IN PLACE. ALL SAFETY PRECAUTION PROVIDED, HOB ELEVATED, BED IN LOWEST POSITION, LOCKED. WILL CONTINUE TO MONITOR PATIENT CLOSELY.
--- NOTE | 2021-12-08 07:28 | NUR ---
RN CLOSING NOTES PATIENT REMAIN STABLE THROUGH OUT SHIFT, RESPIRATORY EVEN AND UNLABORED, LATEST TEMPERAURE 99.2, COOLING MEASURE PROVIDED. NO S/S OF DISTRESS NOTED. STILL RUNNING ON LEVOPED @ 0.3 mcg/kg/min. BLOOD PRESSURE REMAIN TO DESIRED LEVEL. RUNNING WITH NEPHRO @ 45 ML/HR, HEAD OF BED KEPT ELEVATED. WITH RECTAL TUBE IN PLACE. ALL SAFETY PRECAUTION PROVIDED, BED IN LOWEST POSITION, LOCKED.
[2021-12-08] MEDS: PHENOBARBITAL 30 MG TABLET GT SCH ×2 (08:22→20:14)
[2021-12-08] MEDS: CHLORHEXIDINE GLUCONATE 15 ML UDC MM SCH ×2 (08:23→17:04)
[2021-12-08] MEDS: MIDODRINE HCL (5MG) 5 MG TABLET GT SCH (08:23)
[2021-12-08] MEDS: PANTOPRAZOLE 40 MG VIAL IV SCH (08:23)
[2021-12-08] MEDS: PROSOURCE / PROSTAT (PYXIS) 30 ML UDC GT SCH ×2 (08:23→17:04)
[2021-12-08] MEDS: ARGININE/GLUTAMINE/CALCIUM BMB 1 EACH POWD.PACK GT SCH (08:24)
[2021-12-08] MEDS: DORZOLAMIDE OPTH 2% 10 ML BOTTLE OP SCH ×2 (08:34→17:05)
[2021-12-08] MEDS: THERAHONEY GEL 1.5 OZ TUBE TP SCH (08:59)
[2021-12-08] MEDS: DAKINS QUARTER STRENGTH (0.125%) 480 ML BOTTLE TOP SCH (08:59)
[2021-12-08] MEDS: DAKINS HALF STRENGTH (0.25%) 480 ML BOTTLE TOP SCH (09:00)
[2021-12-08] MEDS: BACITRACIN/POLYMYXIN B 15 GM TUBE TP SCH (09:00)
[2021-12-08 09:17] LABS: BAND % (MANUAL) 2 % (0.0-5.0); LYMPHOCYTES % (MANUAL) 10 % (16-48); METAMYELOCYTES % 2 % (0-0); MONOCYTES % (MANUAL) 11 % (0-11.0); NEUTROPHILS % (MANUAL) 75 (42-76)
[2021-12-08] MEDS: MEROPENEM 500 MG in IV NS 0.9% 50 ML IV SCH (13:33)
[2021-12-08] MEDS: NEPRO 1,000 ML BOTTLE GT SCH (13:41)
[2021-12-08] MEDS: COLISTIMETHATE SODIUM 150 MG in IV NS 0.9% 50 ML IV SCH (17:04)
--- NOTE | 2021-12-08 19:05 | NUR ---
RECEIVED PATIENT OBTUNDED NON RESPONSIVE TO ANY STIMULI, ON MECHANICAL VENTILATION SETTINGS TOLERATED WELL, RESPIRATORY EVEN AND UNLABORED,NO S/S OF DISTRESS NOTED. NOTED WITH TEMP 100.1 F, COOLING BLANKET ON PLACE TELE MONITOR READS SINUS TACHY 112, PATIENT HAVE XIOMARA PICC LINE, DRESSING INTACT IN PLACED,WITH ONGOING LEVOPHED @ 0.2 mcg/kg/min. WITH GTUBE IN PLACED, VERIFIED PLACEMENT BY AUSCULTATION, WITH RESIDUAL OF 20 ML UPON ASPIRATION, WITH ONGOING NEPHRO @ 45 ML/HR, WITH RECTAL TUBE IN PLACE. ALL SAFETY PRECAUTION PROVIDED, BED IN LOWEST POSITION, LOCKED. CONTINUE TO MONITOR.
--- NOTE | 2021-12-08 19:08 | NUR ---
RN CLOSING NOTES NO SIGNIFICANT CHANGES THROUGHOUT SHIFT, PATIENT IN STABLE CONDITION. PATIENT REMAINS ON MECHANICAL VENTILATION SETTINGS TOLERATED WELL, BREATHING EVEN AND UNLABORED, NO S/S OF DISTRESS NOTED. PATIENT NOTED WITH XIOMARA PICC LINE, INTACT IN PLACED, FLUSHED WITH NS RUNNING ON LEVOPHED @ 0.2 mcg/kg/min. KEPT PATIENT CLEAN AND DRY, WOUND CARE RENDERED, TOLERATED WELL. ALL NEEDS ATTENDED. ALL SAFETY MEASURES IN PLACE, HOB ELEVATED, BED IN LOWEST POSITION, LOCKED. ENDORSED TO NAPPER TENDER NURSE FOR CONTUNUITY OF CARE.
[2021-12-08] MEDS: EPOETIN ALFA-EPBX 4,000 UNIT/ML VIAL IV PRN (19:47)
[2021-12-08] MEDS: LATANOPROST EYE DROP 0.005% 2.5 ML BOTTLE OP SCH (22:00)
[2021-12-09] VITALS (96 sets, daily range): BP systolic 62–140; BP diastolic 30–76
[2021-12-09] MEDS: ACETAMINOPHEN 650 MG/20.3 ML UDC GT PRN ×4 (00:31→19:04)
[2021-12-09] MEDS: IPRATROPIUM NEB FS 0.5 MG/2.5 ML AMPUL.NEB NEB SCH ×4 (02:26→19:26)
[2021-12-09] MEDS: NOREPINEPHRINE 8 MG in IV NS 0.9% 242 ML IV PRN ×3 (03:16→19:11)
[2021-12-09 04:10] LABS: BASOPHILS # (AUTO) 0.1 K/uL (0.0-0.2); BASOPHILS % (AUTO) 0.4 % (0.0-2.0); HEMATOCRIT 26 % (33-45); HEMOGLOBIN 7.7 g/dL (11.5-14.8); LYMPHOCYTES # (AUTO) 1.2 K/uL (0.8-4.8); LYMPHOCYTES % (AUTO) 3.9 % (20.0-44.0); MEAN CORPUSCULAR HGB CONC 29 g/dl (31.0-36.0); MEAN CORPUSCULAR VOLUME 102 fL (82-100); MONOCYTES # (AUTO) 1.4 K/uL (0.1-1.30); MONOCYTES % (AUTO) 4.5 % (2.0-12.0); NEUTROPHILS # (AUTO) 28.3 K/uL (1.8-8.9); NEUTROPHILS % (AUTO) 90.2 % (43.0-81.0); PLATELET COUNT (AUTO) 273 K/uL (150-450); RED BLOOD CELL COUNT(AUTO) 2.58 MIL/uL (4.0-5.2)
[2021-12-09] MEDS: PHENYTOIN SODIUM IV 100 MG/2ML VIAL IV SCH ×3 (04:53→20:11)
[2021-12-09] MEDS: METOCLOPRAMIDE HCL 10 MG/2 ML VIAL IV SCH ×3 (04:53→20:11)
[2021-12-09 04:56] LABS: CALCIUM, SERUM 9.1 mg/dL (8.5-10.1); CARBON DIOXIDE 18 mmol/L (21-32); CHLORIDE 98 mmol/L (98-107); CREATININE 1.6 mg/dL (0.6-1.3); MAGNESIUM 2.2 mg/dL (1.8-2.4); PHOSPHORUS 2.7 mg/dL (2.5-4.9); POTASSIUM 3.2 mmol/L (3.5-5.1); SODIUM SERUM 134 mmol/L (136-145); UREA NITROGEN, BLOOD 48 mg/dL (7-18)
[2021-12-09] MEDS: VANCOMYCIN HCL 125 MG/2.5 ML ORAL.SUSP PO SCH ×4 (05:20→23:19)
[2021-12-09 05:22] LABS: GLUCOSE 378 mg/dL (74-106)
[2021-12-09 05:23] LABS: WHITE BLOOD COUNT (AUTO) 31.4 K/uL (4.3-11.0)
[2021-12-09] MEDS: BLOOD SUGAR DIAGNOSTIC 1 EACH STRIP IN SCH ×4 (05:23→23:26)
[2021-12-09] MEDS: Z GUARD REMEDY 4 OZ OINT TP PRN (05:24)
[2021-12-09] MEDS: INSULIN REGULAR, HUMAN 100 UNIT/ML 3 ML VIAL SQ PRN ×4 (05:24→23:27)
--- NOTE | 2021-12-09 07:10 | NUR ---
RN OPENING NOTES RECEIVED PT IN BED, OBTUNDED. [facility], SETTINGS TOLERATED WELL. NO SOB OR ANY S/S OF DISTRESS NOTED. TEMP OF 101.3F, COOLING BLANKET IN PLACE. TELE MONITOR READS ST 110S. IV ACCESS ON XIOMARA PICC LINE INTACT AND PATENT. WITH ONGOING LEVOPHED @0.2 MCG/KG/MIN. GTUBE IN PLACE, VERIFIED PLACEMENT BY AUSCULTATION. WITH RESIDUAL OF 10 ML. ONGOING FEEDING OF NEPHRO @45 ML/HR. WITH RECTAL TUBE AND PROCTOR CATH IN PLACE. SAFETY PRECAUTION IMPLEMENTED. BED LOCKED AND IN LOWEST POSITION WITH SIDE RAILS UP X3. WILL CONTINUE TO MONITOR.
[2021-12-09] MEDS: PANTOPRAZOLE 40 MG VIAL IV SCH (07:39)
[2021-12-09] MEDS: MEROPENEM 500 MG in IV NS 0.9% 50 ML IV SCH (09:04)
[2021-12-09] MEDS: PROSOURCE / PROSTAT (PYXIS) 30 ML UDC GT SCH ×2 (09:04→16:34)
[2021-12-09] MEDS: CHLORHEXIDINE GLUCONATE 15 ML UDC MM SCH ×2 (09:04→16:35)
[2021-12-09] MEDS: PHENOBARBITAL 30 MG TABLET GT SCH ×2 (09:05→20:11)
[2021-12-09] MEDS: MIDODRINE HCL (5MG) 5 MG TABLET GT SCH (09:05)
[2021-12-09] MEDS: DAKINS HALF STRENGTH (0.25%) 480 ML BOTTLE TOP SCH (09:06)
[2021-12-09] MEDS: BACITRACIN/POLYMYXIN B 15 GM TUBE TP SCH (09:07)
[2021-12-09] MEDS: DAKINS QUARTER STRENGTH (0.125%) 480 ML BOTTLE TOP SCH (09:07)
[2021-12-09] MEDS: THERAHONEY GEL 1.5 OZ TUBE TP SCH (09:07)
[2021-12-09] MEDS: DORZOLAMIDE OPTH 2% 10 ML BOTTLE OP SCH ×2 (09:08→16:35)
[2021-12-09] MEDS: POTASSIUM CL. PREMIX PERIPHER. 50 ML IV SCH ×3 (10:08→12:09)
[2021-12-09] MEDS ORDERED: DEXTROSE 50%-WATER 50 ML DISP.SYRIN IV PRN (11:30)
[2021-12-09 11:41] LABS: LYMPHOCYTES % (MANUAL) 5 % (16-48); METAMYELOCYTES % 1 % (0-0); MONOCYTES % (MANUAL) 9 % (0-11.0); MYELOCYTES % 1 % (0-0); NEUTROPHILS % (MANUAL) 84 (42-76)
[2021-12-09] MEDS: ACETAMINOPHEN 650 MG/SUPP.RECT RC PRN (12:17)
[2021-12-09] MEDS: NEPRO 1,000 ML BOTTLE GT SCH (14:00)
[2021-12-09] MEDS: COLISTIMETHATE SODIUM 150 MG in IV NS 0.9% 50 ML IV SCH (18:27)
[2021-12-09] MEDS: NS 0.9% IV SCH (19:04)
[2021-12-09] MEDS: DAPTOMYCIN IV SCH (19:04)
--- NOTE | 2021-12-09 19:10 | NUR ---
RECEIVED PATIENT OBTUNDED NON RESPONSIVE TO ANY STIMULI, ON MECHANICAL VENTILATION SETTINGS TOLERATED WELL, RESPIRATORY EVEN AND UNLABORED,NO S/S OF DISTRESS NOTED. NOTED WITH TEMP 100.4 F, COOLING BLANKET ON PLACE TELE MONITOR READS SINUS TACHY 102, PATIENT HAVE XIOMARA PICC LINE, DRESSING INTACT IN PLACED,WITH ONGOING LEVOPHED @ 0.2 mcg/kg/min. WITH GTUBE IN PLACED, VERIFIED PLACEMENT BY AUSCULTATION, WITH RESIDUAL OF 40 ML UPON ASPIRATION, WITH ONGOING NEPHRO @ 45 ML/HR, WITH RECTAL TUBE IN PLACE. ALL SAFETY PRECAUTION PROVIDED, BED IN LOWEST POSITION, LOCKED. CONTINUE TO MONITOR.
--- NOTE | 2021-12-09 19:26 | NUR ---
RN NOTES NO SIGNIFICANT CHANGES THROUGHOUT THE SHIFT. COOLING MEASURES STILL IN PLACE. ALL DUE MEDS GIVEN. NEEDS ATTENDED. KEPT CLEAN AND COMFORTABLE. SAFETY MEASURES IMPLEMENTED. ENDORSED TO NIGHT RN FOR OTIS.
[2021-12-09] MEDS: LATANOPROST EYE DROP 0.005% 2.5 ML BOTTLE OP SCH (21:37)
[2021-12-09] MEDS: IV NS 0.9% 250 ML IV PRN (23:00)
[2021-12-10] VITALS (47 sets, daily range): BP systolic 81–159; BP diastolic 34–75
[2021-12-10] MEDS: ACETAMINOPHEN 650 MG/20.3 ML UDC GT PRN ×2 (00:22→06:15)
[2021-12-10] MEDS: IPRATROPIUM NEB FS 0.5 MG/2.5 ML AMPUL.NEB NEB SCH ×4 (00:48→19:38)
[2021-12-10] MEDS: NOREPINEPHRINE 8 MG in IV NS 0.9% 242 ML IV PRN ×4 (02:21→22:30)
[2021-12-10 04:50] LABS: CALCIUM, SERUM 9.7 mg/dL (8.5-10.1); CARBON DIOXIDE 16 mmol/L (21-32); CHLORIDE 101 mmol/L (98-107); CREATININE 1.8 mg/dL (0.6-1.3); POTASSIUM 3.2 mmol/L (3.5-5.1); SODIUM SERUM 137 mmol/L (136-145); UREA NITROGEN, BLOOD 64 mg/dL (7-18)
[2021-12-10] MEDS: METOCLOPRAMIDE HCL 10 MG/2 ML VIAL IV SCH ×3 (04:59→21:19)
[2021-12-10] MEDS: PHENYTOIN SODIUM IV 100 MG/2ML VIAL IV SCH ×3 (04:59→21:16)
[2021-12-10] MEDS: VANCOMYCIN HCL 125 MG/2.5 ML ORAL.SUSP PO SCH ×3 (05:29→17:28)
[2021-12-10] MEDS: BLOOD SUGAR DIAGNOSTIC 1 EACH STRIP IN SCH ×3 (05:35→17:28)
[2021-12-10] MEDS: INSULIN REGULAR, HUMAN 100 UNIT/ML 3 ML VIAL SQ PRN ×3 (05:37→18:00)
[2021-12-10 06:26] LABS: GLUCOSE 341 mg/dL (74-106)
--- NOTE | 2021-12-10 06:53 | NUR ---
PT ON BED STILL ON TRACH/VENT SETTING PER MD FIO2 30% SPO2 98-99% NO SIGN OF RESPIRATORY DISTRESS NOTED TELE MONITOR READS SINUS TACHY 100-120'S STILL FEBRILE WITH LATEST TEMP 101.[address]ILL ON PL[address] PRN ANTIPYRETIC DRUGS ALSO GIVEN, GTUBE WITH ONGOIGN NEPRO @ 45ML/HR TOLERATING WELL, WOUND TREATMENT DONE, STILL WITH FLEXISEAL BED ON LOWEST POSITION AND LOCKED SIDE RAILS UP X2 CALL LIGHT WITHIN REACH WILL CONT TO MONITOR
[2021-12-10] MEDS: PANTOPRAZOLE 40 MG/PACK PACK GT SCH (08:55)
[2021-12-10] MEDS: PHENOBARBITAL 30 MG TABLET GT SCH ×2 (08:56→21:15)
[2021-12-10] MEDS: MIDODRINE HCL (5MG) 5 MG TABLET GT SCH (08:56)
[2021-12-10] MEDS: MEROPENEM 500 MG in IV NS 0.9% 50 ML IV SCH (08:56)
[2021-12-10] MEDS: CHLORHEXIDINE GLUCONATE 15 ML UDC MM SCH ×2 (08:56→17:28)
[2021-12-10] MEDS: PROSOURCE / PROSTAT (PYXIS) 30 ML UDC GT SCH ×2 (08:57→17:28)
[2021-12-10] MEDS: DORZOLAMIDE OPTH 2% 10 ML BOTTLE OP SCH ×2 (08:59→17:29)
[2021-12-10] MEDS: DAKINS HALF STRENGTH (0.25%) 480 ML BOTTLE TOP SCH (08:59)
[2021-12-10] MEDS: BACITRACIN/POLYMYXIN B 15 GM TUBE TP SCH (09:00)
[2021-12-10] MEDS: DAKINS QUARTER STRENGTH (0.125%) 480 ML BOTTLE TOP SCH (09:00)
[2021-12-10] MEDS: THERAHONEY GEL 1.5 OZ TUBE TP SCH (09:00)
[2021-12-10] MEDS: POTASSIUM CL. PREMIX PERIPHER. 50 ML IV SCH ×3 (10:15→12:08)
[2021-12-10] MEDS ORDERED: ALBUMIN 25% 12.5 GM/50 ML BOTTLE IV ONE (13:00)
[2021-12-10] MEDS: ALBUMIN 25% 25 GM in PREMIX 1 EA IV PRN (15:07)
[2021-12-10] MEDS: COLISTIMETHATE SODIUM 150 MG in IV NS 0.9% 50 ML IV SCH (17:27)
[2021-12-10] MEDS: ACETAMINOPHEN 650 MG/SUPP.RECT RC PRN (21:19)
[2021-12-11] VITALS (96 sets, daily range): BP systolic 55–157; BP diastolic 25–78
[2021-12-11] MEDS: LATANOPROST EYE DROP 0.005% 2.5 ML BOTTLE OP SCH ×2 (00:25→21:23)
[2021-12-11] MEDS: VANCOMYCIN HCL 125 MG/2.5 ML ORAL.SUSP PO SCH ×5 (00:25→23:58)
[2021-12-11] MEDS: BLOOD SUGAR DIAGNOSTIC 1 EACH STRIP IN SCH ×5 (00:26→23:59)
[2021-12-11] MEDS: INSULIN REGULAR, HUMAN 100 UNIT/ML 3 ML VIAL SQ PRN ×4 (00:28→18:18)
[2021-12-11] MEDS: IPRATROPIUM NEB FS 0.5 MG/2.5 ML AMPUL.NEB NEB SCH ×4 (01:10→18:57)
[2021-12-11] MEDS: NOREPINEPHRINE 8 MG in IV NS 0.9% 242 ML IV PRN ×4 (01:45→10:43)
[2021-12-11 04:24] LABS: BASOPHILS # (AUTO) 0.1 K/uL (0.0-0.2); BASOPHILS % (AUTO) 0.3 % (0.0-2.0); EOSINOPHILS % (AUTO) 0.8 % (0.0-6.0); HEMATOCRIT 26 % (33-45); HEMOGLOBIN 7.4 g/dL (11.5-14.8); LYMPHOCYTES # (AUTO) 1.6 K/uL (0.8-4.8); MEAN CORPUSCULAR HGB CONC 28 g/dl (31.0-36.0); MEAN CORPUSCULAR VOLUME 103 fL (82-100); MONOCYTES # (AUTO) 2.1 K/uL (0.1-1.30); MONOCYTES % (AUTO) 5.1 % (2.0-12.0); NEUTROPHILS # (AUTO) 36.5 K/uL (1.8-8.9); NEUTROPHILS % (AUTO) 89.8 % (43.0-81.0); PLATELET COUNT (AUTO) 232 K/uL (150-450); RED BLOOD CELL COUNT(AUTO) 2.52 MIL/uL (4.0-5.2)
[2021-12-11 04:55] LABS: ALBUMIN 1.7 g/dL (3.4-5.0); BILIRUBIN,DIRECT 1.5 mg/dL (0.0-0.2); BILIRUBIN,TOTAL 1.9 mg/dL (0.2-1.0); TOTAL PROTEIN, SERUM 6.1 g/dL (6.4-8.2)
[2021-12-11 05:00] LABS: CALCIUM, SERUM 9.5 mg/dL (8.5-10.1); CARBON DIOXIDE 14 mmol/L (21-32); CHLORIDE 100 mmol/L (98-107); CREATININE 1.5 mg/dL (0.6-1.3); GLUCOSE 242 mg/dL (74-106); PHOSPHORUS 2.5 mg/dL (2.5-4.9); POTASSIUM 3.5 mmol/L (3.5-5.1); SODIUM SERUM 135 mmol/L (136-145); UREA NITROGEN, BLOOD 49 mg/dL (7-18)
[2021-12-11] MEDS: METOCLOPRAMIDE HCL 10 MG/2 ML VIAL IV SCH ×3 (05:16→21:09)
[2021-12-11] MEDS: PHENYTOIN SODIUM IV 100 MG/2ML VIAL IV SCH ×3 (05:18→21:09)
[2021-12-11 05:44] LABS: WHITE BLOOD COUNT (AUTO) 40.6 K/uL (4.3-11.0)
[2021-12-11] MEDS ORDERED: NOREPINEPHRINE 8MG/250ML RTU 250 ML IV ONE (06:26)
--- NOTE | 2021-12-11 07:12 | NUR ---
RN notes In bed, resting comfortably with no signs or symptoms of distress. Breathing even and unlabored. Vent setting well tolerated. No physical manifestation of pain or discomfort. Temperature 101.3, tylenol suppository administered rectally, with help. Temperature went down to 99.4. On levophed at 0.4mg/kg/min, maintains baseline blood pressure. Changed flexiseal with estimated bowel movement of 1600mls. Abnormal lab result called in by Lab, WBC 40. Daughter refused to give consent for wound debridement, explained risk and consequence. Wants to talk to MD first. Kept clean and dry. Endorsed to next shift for continuity of care.
--- NOTE | 2021-12-11 07:30 | NUR ---
TEAM SPORTS SALES ASSOCIATE NOTES Patient is in bed and obtunded. On mechanical vent settings of peep 0, fi02 30 , ac 14, tv 500.Received with cooling blanket on with temp of 99.5 degree F. HOB kept elevated. Per report to resume g tube feeding on medical writer's shift and was temporary on hold. Turned and repositioned q2h and prn. Will monitor.
[2021-12-11] MEDS: PROSOURCE / PROSTAT (PYXIS) 30 ML UDC GT SCH ×2 (08:41→17:28)
[2021-12-11] MEDS: DAKINS QUARTER STRENGTH (0.125%) 480 ML BOTTLE TOP SCH (08:42)
[2021-12-11] MEDS: THERAHONEY GEL 1.5 OZ TUBE TP SCH (08:43)
[2021-12-11] MEDS: BACITRACIN/POLYMYXIN B 15 GM TUBE TP SCH (08:43)
[2021-12-11] MEDS: DORZOLAMIDE OPTH 2% 10 ML BOTTLE OP SCH ×2 (08:44→17:28)
[2021-12-11] MEDS: DAKINS HALF STRENGTH (0.25%) 480 ML BOTTLE TOP SCH (08:45)
[2021-12-11] MEDS: CHLORHEXIDINE GLUCONATE 15 ML UDC MM SCH ×2 (09:20→17:40)
[2021-12-11] MEDS: MIDODRINE HCL (5MG) 5 MG TABLET GT SCH (09:20)
[2021-12-11] MEDS: PANTOPRAZOLE 40 MG/PACK PACK GT SCH (09:20)
[2021-12-11] MEDS: MEROPENEM 500 MG in IV NS 0.9% 50 ML IV SCH (09:22)
[2021-12-11] MEDS: PHENOBARBITAL 30 MG TABLET GT SCH ×2 (09:34→21:08)
[2021-12-11 11:52] LABS: BAND % (MANUAL) 6 % (0.0-5.0); EOSINOPHILS % (MANUAL) 2 % (0-4); LYMPHOCYTES % (MANUAL) 5 % (16-48); METAMYELOCYTES % 1 % (0-0); MONOCYTES % (MANUAL) 2 % (0-11.0); NEUTROPHILS % (MANUAL) 84 (42-76)
[2021-12-11] MEDS: HYDROCORTISONE SOD SUCCINATE 100 MG/2 ML VIAL IV SCH ×2 (12:30→21:09)
[2021-12-11] MEDS: NOREPINEPHRINE 32 MG in IV NS 0.9% 218 ML IV PRN (14:29)
[2021-12-11] MEDS: COLISTIMETHATE SODIUM 150 MG in IV NS 0.9% 50 ML IV SCH (17:39)
[2021-12-11] MEDS: DAPTOMYCIN IV SCH (18:41)
[2021-12-11] MEDS: NS 0.9% IV SCH (18:41)
[2021-12-11] MEDS: NEPRO 1,000 ML BOTTLE GT SCH (18:56)
[2021-12-11] MEDS ORDERED: EPOETIN ALFA-EPBX 10,000 UNIT/ML VIAL IV ONE (19:00)
--- NOTE | 2021-12-11 19:26 | NUR ---
BENCH MOLDER OPENING NOTES Patient is in bed and obtunded. On mechanical vent settings of peep 0, fi02 30 , ac 14, tv 500. On cooling blanket on with temp of 98.5 degree F. HOB kept elevated. g tube feeding running 45 ml/hour. Turned and repositioned q2h and prn. Endorsed to next shift.
--- NOTE | 2021-12-11 19:28 | NUR ---
COLLEGE ASSOCIATE CLOSING NOTES Patient is in bed and obtunded. On mechanical vent settings of peep 0, fi02 30 , ac 14, tv 500. On cooling blanket on with temp of 98.5 degree F. HOB kept elevated. g tube feeding running 45 ml/hour. Turned and repositioned q2h and prn. Endorsed to next shift.
[2021-12-11] MEDS: IV NS 0.9% 250 ML IV PRN (19:47)
--- NOTE | 2021-12-11 20:00 | NUR ---
ICU NOTES Received patient obtunded.Afebrile.Maintained on mechanical ventilation with same settings well tolerated no acute distress noted.ST low 100's.Levophed gtt infusing for BP support and will titrate accordingly.Gt feeding infusing checked residual 300 ml.Feeding held.Maintained HOB elevated.Anuric for HD in AM.Flexi seal in place with liquid stool.Turned and repositioned.
[2021-12-12] VITALS (89 sets, daily range): BP systolic 86–162; BP diastolic 36–75
--- NOTE | 2021-12-12 | NUR ---
ICU NOTES Patient feeding residual remains high.Feeding on hold.Blood sugar monitored 296 coverage given per sliding scale.Turned and repositioned to comfort.
[2021-12-12] MEDS: INSULIN REGULAR, HUMAN 100 UNIT/ML 3 ML VIAL SQ PRN ×5 (00:01→23:49)
[2021-12-12] MEDS: IPRATROPIUM NEB FS 0.5 MG/2.5 ML AMPUL.NEB NEB SCH ×4 (00:41→19:34)
[2021-12-12] MEDS: ACETAMINOPHEN 650 MG/SUPP.RECT RC PRN (03:52)
--- NOTE | 2021-12-12 04:00 | NUR ---
ICU NOTES. Patient resting in no acute distress.Feeding residual 30 ml.GT feeding restarted.AM care done. wound care done.Febrile tylenol supp administered and continuous cooling measures done.Turned and repositioned.
[2021-12-12 04:32] LABS: BASOPHILS # (AUTO) 0.1 K/uL (0.0-0.2); BASOPHILS % (AUTO) 0.3 % (0.0-2.0); EOSINOPHILS % (AUTO) 0.1 % (0.0-6.0); HEMATOCRIT 27 % (33-45); HEMOGLOBIN 7.6 g/dL (11.5-14.8); LYMPHOCYTES # (AUTO) 1.5 K/uL (0.8-4.8); LYMPHOCYTES % (AUTO) 3.1 % (20.0-44.0); MEAN CORPUSCULAR HGB CONC 28 g/dl (31.0-36.0); MEAN CORPUSCULAR VOLUME 105 fL (82-100); MONOCYTES # (AUTO) 2.1 K/uL (0.1-1.30); MONOCYTES % (AUTO) 4.5 % (2.0-12.0); NEUTROPHILS # (AUTO) 43.5 K/uL (1.8-8.9); PLATELET COUNT (AUTO) 259 K/uL (150-450); RED BLOOD CELL COUNT(AUTO) 2.61 MIL/uL (4.0-5.2)
[2021-12-12 04:43] LABS: CALCIUM, SERUM 10.6 mg/dL (8.5-10.1); CARBON DIOXIDE 12 mmol/L (21-32); CHLORIDE 100 mmol/L (98-107); CREATININE 1.7 mg/dL (0.6-1.3); GLUCOSE 326 mg/dL (74-106); MAGNESIUM 2.1 mg/dL (1.8-2.4); PHOSPHORUS 4.3 mg/dL (2.5-4.9); POTASSIUM 4.5 mmol/L (3.5-5.1); SODIUM SERUM 133 mmol/L (136-145); UREA NITROGEN, BLOOD 64 mg/dL (7-18)
[2021-12-12] MEDS: METOCLOPRAMIDE HCL 10 MG/2 ML VIAL IV SCH ×3 (05:08→21:10)
[2021-12-12] MEDS: HYDROCORTISONE SOD SUCCINATE 100 MG/2 ML VIAL IV SCH ×3 (05:08→21:10)
[2021-12-12] MEDS: VANCOMYCIN HCL 125 MG/2.5 ML ORAL.SUSP PO SCH ×4 (05:09→23:47)
[2021-12-12] MEDS: PHENYTOIN SODIUM IV 100 MG/2ML VIAL IV SCH ×3 (05:09→21:10)
[2021-12-12 05:20] LABS: WHITE BLOOD COUNT (AUTO) 47.3 K/uL (4.3-11.0)
[2021-12-12] MEDS: BLOOD SUGAR DIAGNOSTIC 1 EACH STRIP IN SCH ×4 (05:28→23:47)
[2021-12-12] MEDS: NOREPINEPHRINE 32 MG in IV NS 0.9% 218 ML IV PRN (06:39)
--- NOTE | 2021-12-12 07:02 | NUR ---
ICU END NOTE Patient status unchanged.All due medications administered.BP remains unstable Levophed gtt titrated accordingly. AM labs resulted WBC 47.3 called to no new orders received. No acute distress noted.
[2021-12-12 07:11] LABS: BAND % (MANUAL) 4 % (0.0-5.0); LYMPHOCYTES % (MANUAL) 6 % (16-48); MONOCYTES % (MANUAL) 3 % (0-11.0); NEUTROPHILS % (MANUAL) 87 (42-76)
[2021-12-12] MEDS: DAKINS HALF STRENGTH (0.25%) 480 ML BOTTLE TOP SCH (09:00)
[2021-12-12] MEDS: BACITRACIN/POLYMYXIN B 15 GM TUBE TP SCH (09:00)
[2021-12-12] MEDS: DORZOLAMIDE OPTH 2% 10 ML BOTTLE OP SCH ×2 (09:44→18:12)
[2021-12-12] MEDS: THERAHONEY GEL 1.5 OZ TUBE TP SCH (09:44)
[2021-12-12] MEDS: DAKINS QUARTER STRENGTH (0.125%) 480 ML BOTTLE TOP SCH (09:45)
[2021-12-12] MEDS: PANTOPRAZOLE 40 MG/PACK PACK GT SCH (10:06)
[2021-12-12] MEDS: CHLORHEXIDINE GLUCONATE 15 ML UDC MM SCH ×2 (10:06→18:11)
[2021-12-12] MEDS: MIDODRINE HCL (5MG) 5 MG TABLET GT SCH (10:06)
[2021-12-12] MEDS: MEROPENEM 500 MG in IV NS 0.9% 50 ML IV SCH (10:06)
[2021-12-12] MEDS: PHENOBARBITAL 30 MG TABLET GT SCH ×2 (10:06→21:10)
[2021-12-12] MEDS: PROSOURCE / PROSTAT (PYXIS) 30 ML UDC GT SCH ×2 (10:08→18:12)
[2021-12-12] MEDS: NEPRO 1,000 ML BOTTLE GT SCH (18:11)
[2021-12-12] MEDS: COLISTIMETHATE SODIUM 150 MG in IV NS 0.9% 50 ML IV SCH (18:14)
--- NOTE | 2021-12-12 19:17 | NUR ---
RELIGIOUS ASSISTANT CLOSING NOTES Patient is in bed and obtunded. On mechanical vent settings of peep 0, fi02 30 , ac 14, tv 500. On cooling blanket on with temp of 98.7 degree F. HOB kept elevated. g tube feeding running 45 ml/hour. Turned and repositioned q2h and prn. Endorsed to next shift. Last residual checked at 1800 and noted with 40 cc.
--- NOTE | 2021-12-12 20:00 | NUR ---
ICU NOTES Received patient obtunded with tract to vent on same vent settigs well tolerated.No acute distress noted.SR.VSS. On Levophed gtt for BP support and will titrate accordingly.GT feeding infusing residual 60 ml.Maintained HOB elevated.Flexi seal in place.Turned and repositioned off loading pressure points.
[2021-12-12] MEDS: LATANOPROST EYE DROP 0.005% 2.5 ML BOTTLE OP SCH (21:11)
[2021-12-13] VITALS (64 sets, daily range): BP systolic 91–121; BP diastolic 39–66
[2021-12-13] MEDS: IPRATROPIUM NEB FS 0.5 MG/2.5 ML AMPUL.NEB NEB SCH ×4 (01:20→20:02)
[2021-12-13 03:42] LABS: BASOPHILS # (AUTO) 0.1 K/uL (0.0-0.2); BASOPHILS % (AUTO) 0.2 % (0.0-2.0); EOSINOPHILS % (AUTO) 0.1 % (0.0-6.0); HEMATOCRIT 25 % (33-45); HEMOGLOBIN 7.1 g/dL (11.5-14.8); LYMPHOCYTES # (AUTO) 0.6 K/uL (0.8-4.8); MEAN CORPUSCULAR HGB CONC 29 g/dl (31.0-36.0); MEAN CORPUSCULAR VOLUME 104 fL (82-100); MONOCYTES # (AUTO) 1.3 K/uL (0.1-1.30); MONOCYTES % (AUTO) 4.6 % (2.0-12.0); NEUTROPHILS # (AUTO) 27.2 K/uL (1.8-8.9); NEUTROPHILS % (AUTO) 93.1 % (43.0-81.0); PLATELET COUNT (AUTO) 183 K/uL (150-450); WHITE BLOOD COUNT (AUTO) 29.2 K/uL (4.3-11.0)
[2021-12-13 04:31] LABS: CALCIUM, SERUM 9.7 mg/dL (8.5-10.1); CARBON DIOXIDE 19 mmol/L (21-32); CHLORIDE 101 mmol/L (98-107); CREATININE 1.4 mg/dL (0.6-1.3); PHOSPHORUS 3.2 mg/dL (2.5-4.9); POTASSIUM 3.2 mmol/L (3.5-5.1); SODIUM SERUM 136 mmol/L (136-145); UREA NITROGEN, BLOOD 49 mg/dL (7-18)
[2021-12-13 04:57] LABS: GLUCOSE 362 mg/dL (74-106)
[2021-12-13] MEDS: HYDROCORTISONE SOD SUCCINATE 100 MG/2 ML VIAL IV SCH ×3 (05:28→20:50)
[2021-12-13] MEDS: METOCLOPRAMIDE HCL 10 MG/2 ML VIAL IV SCH ×3 (05:29→20:50)
[2021-12-13] MEDS: PHENYTOIN SODIUM IV 100 MG/2ML VIAL IV SCH ×3 (05:29→20:50)
[2021-12-13] MEDS: VANCOMYCIN HCL 125 MG/2.5 ML ORAL.SUSP PO SCH ×3 (05:29→17:46)
[2021-12-13] MEDS: BLOOD SUGAR DIAGNOSTIC 1 EACH STRIP IN SCH ×3 (05:44→17:41)
[2021-12-13] MEDS: INSULIN REGULAR, HUMAN 100 UNIT/ML 3 ML VIAL SQ PRN ×3 (05:45→17:51)
--- NOTE | 2021-12-13 06:10 | NUR ---
END NOTES Patient status unchanged.VSS.SR.Tolerating vent settings and feeding.No acute distress noted. AM care done.Wound care done.Turned and repositioned q2 hrs off loading pressure points. Blood culture resulted Gram Negative Rods and Blood sugar from lab this morning [address]Daniel Jennings with orders received.Changed moderate SS to Aggressive SS.Will endorse to day shift for OTIS.
[2021-12-13] MEDS ORDERED: DEXTROSE 50%-WATER 50 ML DISP.SYRIN IV PRN (06:30)
--- NOTE | 2021-12-13 08:00 | NUR ---
rn notes Received patient vent dependent portex 7, fio2- 3%, patient has no acute respiratory distress, patient on Levophed 0.08 mcg/kg/hr. no residual, Wound care done.Turned and repositioned q2 hrs off loading pressure points. due medication administered, patient anuric, flexesel is intact, running Glucerna 45ml/hr. will follow up.
[2021-12-13] MEDS ORDERED: POTASSIUM CHLORIDE 20 MEQ POWDER PACKET PO ONE (08:30)
[2021-12-13] MEDS: PHENOBARBITAL 30 MG TABLET GT SCH ×2 (08:39→20:50)
[2021-12-13] MEDS: MIDODRINE HCL (5MG) 5 MG TABLET GT SCH (08:39)
[2021-12-13] MEDS: CHLORHEXIDINE GLUCONATE 15 ML UDC MM SCH ×2 (08:40→17:42)
[2021-12-13] MEDS: PROSOURCE / PROSTAT (PYXIS) 30 ML UDC GT SCH ×2 (08:41→17:43)
[2021-12-13] MEDS: DAKINS HALF STRENGTH (0.25%) 480 ML BOTTLE TOP SCH (08:42)
[2021-12-13] MEDS: DORZOLAMIDE OPTH 2% 10 ML BOTTLE OP SCH ×2 (08:42→17:42)
[2021-12-13] MEDS: THERAHONEY GEL 1.5 OZ TUBE TP SCH (08:42)
[2021-12-13] MEDS: MEROPENEM 500 MG in IV NS 0.9% 50 ML IV SCH (08:45)
[2021-12-13] MEDS: NOREPINEPHRINE 32 MG in IV NS 0.9% 218 ML IV PRN (09:43)
[2021-12-13] MEDS: PANTOPRAZOLE 40 MG/PACK PACK GT SCH (10:32)
--- NOTE | 2021-12-13 12:00 | NUR ---
rn notes patient stable, bs-343 mg/dl, coverage given, no residual, assist turn and repostion q 2 hr, edema bilateral arms, elevated using pillows. daughter next to the bed.
[2021-12-13] MEDS: NEPRO 1,000 ML BOTTLE GT SCH (14:40)
[2021-12-13] MEDS: COLISTIMETHATE SODIUM 150 MG in IV NS 0.9% 50 ML IV SCH (17:47)
--- NOTE | 2021-12-13 18:30 | NUR ---
rn notes patient stable bs-355 mg/dl coverage given, no respiratory distress. due medication administered, keep hob elevated for aspiration precaution. endorsed oncoming nurse follow plan of care.
[2021-12-13] MEDS: DAPTOMYCIN IV SCH (18:56)
[2021-12-13] MEDS: NS 0.9% IV SCH (18:56)
--- NOTE | 2021-12-13 19:15 | NUR ---
RN OPENING NOTES RECEIVED PATIENT ON BED, OBTUNDED, ON MECHANICAL VENTILATION SETTINGS TOLERATED WELL, RESPIRATORY EVEN AND UNLABORED, NO S/S OF DISTRESS NOTED. PATIENT NOTED WITH XIOMARA PICC LINE, INTACT IN PLACED, FLUSHED WITH NS. RUNNING ON LEVOPHED @ 0.05 mcg/kg/min. WITH GTUBE IN PLACED, VERIFIED PLACEMENT BY AUSCULTATION, WITH RESIDUAL OF 10 ML UPON ASPIRATION, RUNNING WITH NEPHRO @ 45 ML/HR, WITH RECTAL TUBE IN PLACE. ALL SAFETY PRECAUTION PROVIDED, BED IN LOWEST POSITION, LOCKED. CONTINUE TO MONITOR.
[2021-12-13] MEDS: IV NS 0.9% 250 ML IV PRN (19:48)
[2021-12-13] MEDS: LATANOPROST EYE DROP 0.005% 2.5 ML BOTTLE OP SCH (23:44)
[2021-12-14] VITALS (82 sets, daily range): BP systolic 66–172; BP diastolic 24–122
[2021-12-14] MEDS: VANCOMYCIN HCL 125 MG/2.5 ML ORAL.SUSP PO SCH ×4 (00:02→17:47)
[2021-12-14] MEDS: BLOOD SUGAR DIAGNOSTIC 1 EACH STRIP IN SCH ×5 (00:26→23:59)
[2021-12-14] MEDS: INSULIN REGULAR, HUMAN 100 UNIT/ML 3 ML VIAL SQ PRN ×5 (00:36→23:52)
[2021-12-14] MEDS: IPRATROPIUM NEB FS 0.5 MG/2.5 ML AMPUL.NEB NEB SCH ×4 (01:14→19:58)
--- NOTE | 2021-12-14 04:00 | NUR ---
RN NOTES PATIENT NOTED WITH TEMPERATURE- 100.3 F, COOLING MEASURE PROVIDED. ACETAMINOPHEN 650MG GIVEN VIA GTUBE. CONTINUE TO MONITOR.
[2021-12-14 04:14] LABS: BASOPHILS % (AUTO) 0.2 % (0.0-2.0); HEMATOCRIT 24 % (33-45); HEMOGLOBIN 7.2 g/dL (11.5-14.8); LYMPHOCYTES # (AUTO) 1.6 K/uL (0.8-4.8); LYMPHOCYTES % (AUTO) 8.1 % (20.0-44.0); MEAN CORPUSCULAR HGB CONC 30 g/dl (31.0-36.0); MEAN CORPUSCULAR VOLUME 102 fL (82-100); MONOCYTES # (AUTO) 1.3 K/uL (0.1-1.30); MONOCYTES % (AUTO) 6.4 % (2.0-12.0); NEUTROPHILS # (AUTO) 16.9 K/uL (1.8-8.9); NEUTROPHILS % (AUTO) 85.3 % (43.0-81.0); PLATELET COUNT (AUTO) 153 K/uL (150-450); RED BLOOD CELL COUNT(AUTO) 2.37 MIL/uL (4.0-5.2); WHITE BLOOD COUNT (AUTO) 19.8 K/uL (4.3-11.0)
[2021-12-14 04:32] LABS: CARBON DIOXIDE 18 mmol/L (21-32); CHLORIDE 102 mmol/L (98-107); CREATININE 1.5 mg/dL (0.6-1.3); GLUCOSE 340 mg/dL (74-106); MAGNESIUM 2.1 mg/dL (1.8-2.4); PHOSPHORUS 4.1 mg/dL (2.5-4.9); POTASSIUM 3.5 mmol/L (3.5-5.1); SODIUM SERUM 136 mmol/L (136-145); UREA NITROGEN, BLOOD 74 mg/dL (7-18)
--- NOTE | 2021-12-14 05:00 | NUR ---
R NOTES TEMPERATURE RECHECKED AND OBTAINED 99.8 F, CONTINUE WITH COOLING MEASURE. CONTINUE TO MONITOR.
[2021-12-14] MEDS: HYDROCORTISONE SOD SUCCINATE 100 MG/2 ML VIAL IV SCH ×3 (05:03→21:15)
[2021-12-14] MEDS: METOCLOPRAMIDE HCL 10 MG/2 ML VIAL IV SCH ×3 (05:03→21:16)
[2021-12-14] MEDS: PHENYTOIN SODIUM IV 100 MG/2ML VIAL IV SCH ×3 (05:04→21:15)
[2021-12-14] MEDS: ACETAMINOPHEN 650 MG/20.3 ML UDC GT PRN ×2 (05:20→09:25)
[2021-12-14 06:01] LABS: BAND % (MANUAL) 7 % (0.0-5.0); LYMPHOCYTES % (MANUAL) 14 % (16-48); METAMYELOCYTES % 1 % (0-0); MONOCYTES % (MANUAL) 1 % (0-11.0); NEUTROPHILS % (MANUAL) 77 (42-76)
--- NOTE | 2021-12-14 07:18 | NUR ---
RN CLOSING NOTES NO SIGNIFICANT CHANGES THROUGH OUT THE SHIFT, ON MECHANICAL VENTILATION SETTINGS TOLERATED WELL, RESPIRATORY EVEN AND UNLABORED, NO S/S OF DISTRESS NOTED. RUNNING ON LEVOPHED @ 0.1 mcg/kg/min. WITH GTUBE IN PLACED, RUNNING WITH NEPHRO @ 45 ML/HR, HEAD OF BED KEPT ELEVATED. ALL DUE MEDS GIVEN ORDERED. WITH RECTAL TUBE IN PLACE. ALL SAFETY PRECAUTION PROVIDED, BED IN LOWEST POSITION, LOCKED. CONTINUE TO MONITOR.
--- NOTE | 2021-12-14 08:00 | NUR ---
rn notes received patient vent setting fio2-30%,, bedside monitor shows SR. patient has T- 103.1 F, patient on cooling measure, due medication administered, no residual, no acute respiratory distress at this time, suction, mouth care done, RT bedside for breathing treatment, assist turn and reposition q 2 hr. infusing Levophed 0.1 mcg/kg/hr, on XIOMARA PICC line. seen hospitalist, and concentrator operator, patient scheduled Hd tomorrow. patient has edema bilateral hands. will follow up.
[2021-12-14] MEDS: MEROPENEM 500 MG in IV NS 0.9% 50 ML IV SCH (08:28)
[2021-12-14] MEDS: PANTOPRAZOLE 40 MG/PACK PACK GT SCH (08:30)
[2021-12-14] MEDS: MIDODRINE HCL (5MG) 5 MG TABLET GT SCH (08:30)
[2021-12-14] MEDS: CHLORHEXIDINE GLUCONATE 15 ML UDC MM SCH ×2 (08:30→16:49)
[2021-12-14] MEDS: THERAHONEY GEL 1.5 OZ TUBE TP SCH (08:31)
[2021-12-14] MEDS: DAKINS HALF STRENGTH (0.25%) 480 ML BOTTLE TOP SCH (08:32)
[2021-12-14] MEDS: DORZOLAMIDE OPTH 2% 10 ML BOTTLE OP SCH ×2 (08:33→16:43)
[2021-12-14] MEDS: PROSOURCE / PROSTAT (PYXIS) 30 ML UDC GT SCH ×2 (08:33→16:43)
[2021-12-14] MEDS: PHENOBARBITAL 30 MG TABLET GT SCH ×2 (08:34→21:14)
[2021-12-14] MEDS: NOREPINEPHRINE 32 MG in IV NS 0.9% 218 ML IV PRN (09:25)
--- NOTE | 2021-12-14 09:25 | NUR ---
RN NOTES ADMINISTERED TYLENOL 650 ML VIA GT FOR T-103.1F. HOSPITALIST AWARE OF, ALSO PATIENT ON COOLING MEASURE.
[2021-12-14] MEDS: MIDODRINE HCL (5MG) 5 MG TABLET PO SCH ×2 (12:36→20:35)
--- NOTE | 2021-12-14 13:00 | NUR ---
rn ntes bs-264 mg/dl coverage given. PM care done, dressing changed.
[2021-12-14] MEDS: NEPRO 1,000 ML BOTTLE GT SCH (14:37)
--- NOTE | 2021-12-14 15:38 | NUR ---
rn notes t-98.8F at this time, removed cooling measure, daughter next to the bed. assist turn and reposition q 2 hr. will follow up.
[2021-12-14] MEDS: COLISTIMETHATE SODIUM 150 MG in IV NS 0.9% 50 ML IV SCH (17:46)
--- NOTE | 2021-12-14 18:52 | NUR ---
rn notes patient stable no acute respiratory distress, suction, due medication administered, infusing Levophed 0.02 mcg/kg/hr intact on XIOMARA picc line intact, and TKO. running Nepro @45 ml/hr no residual, keep hob elevated for aspiration precaution. assist turn and reposition q 2 hr. flexisil intact. endorsed oncoming nurse tico.
--- NOTE | 2021-12-14 19:30 | NUR ---
RN NOTE RECEIVED PATIENT IN BED, EYES CLOSED, NON-VERBAL. UNABLE TO FOLLOW COMMANDS. BREATHING EVEN AND UNLABORED. NOTED WITH TRACH, ON VENT, SETTINGS OF AC 14, TV 500, FIO2 30, PEEP 0.0. SKIN WARM AND DRY. NOTED WITH LEFT UPPER ARM PICC LINE. CURRENTLY INFUSING NOREPINEPRINE AT 0.02 MCG/KG/MIN. TOLERATING WELL. NOTED WITH G-TUBE, CURRENTLY INFUSING NEPRO AT 45 CC/HR. NOTED WITH 250 ML RESIDUAL. HOB ELEVATED. 40 DEGREES. NOTED WITH RIGHT UPPER ARM PERMACATH, NO BLEEDING NOTED. NOTED WITH FLEXI-SEAL. DRAINING WELL, NO VISIBLE BLOOD NOTED. BED LOW, IN LOCKED POSITION, CALL LIGHT WITHIN REACH.
[2021-12-14] MEDS: LATANOPROST EYE DROP 0.005% 2.5 ML BOTTLE OP SCH (21:36)
[2021-12-14] MEDS: IV NS 0.9% 250 ML IV PRN (22:20)
[2021-12-15] VITALS (61 sets, daily range): BP systolic 80–167; BP diastolic 33–71
--- NOTE | 2021-12-15 00:03 | NUR ---
RN NOTE VANCOCIN HCL ORAL SOLN 125 MG/2.5 ML @ 12/15 0000 & 0600 Q6HRS NOT AVAILABLE IN ICU OMNICELL AND MEDICATION SHELF. FAXED MEDICATION ORDER SHEET TO [facility], PER THERAPY TECHNICIAN, MEDICATION IS NOT IN HAND CURRENTLY. MEDICATION NOT ADMINISTERED.
[2021-12-15] MEDS: IPRATROPIUM NEB FS 0.5 MG/2.5 ML AMPUL.NEB NEB SCH ×4 (01:05→19:37)
[2021-12-15 04:35] LABS: CALCIUM, SERUM 9.6 mg/dL (8.5-10.1); CARBON DIOXIDE 19 mmol/L (21-32); CHLORIDE 101 mmol/L (98-107); CREATININE 1.8 mg/dL (0.6-1.3); GLUCOSE 255 mg/dL (74-106); MAGNESIUM 2.2 mg/dL (1.8-2.4); PHOSPHORUS 4.9 mg/dL (2.5-4.9); POTASSIUM 3.8 mmol/L (3.5-5.1); SODIUM SERUM 137 mmol/L (136-145)
[2021-12-15 04:37] LABS: BASOPHILS % (AUTO) 0.1 % (0.0-2.0); HEMATOCRIT 25 % (33-45); HEMOGLOBIN 7.3 g/dL (11.5-14.8); LYMPHOCYTES # (AUTO) 1.2 K/uL (0.8-4.8); LYMPHOCYTES % (AUTO) 6.1 % (20.0-44.0); MEAN CORPUSCULAR HGB CONC 30 g/dl (31.0-36.0); MEAN CORPUSCULAR VOLUME 101 fL (82-100); MONOCYTES # (AUTO) 1.5 K/uL (0.1-1.30); NEUTROPHILS # (AUTO) 16.4 K/uL (1.8-8.9); NEUTROPHILS % (AUTO) 85.8 % (43.0-81.0); PLATELET COUNT (AUTO) 156 K/uL (150-450); RED BLOOD CELL COUNT(AUTO) 2.43 MIL/uL (4.0-5.2); WHITE BLOOD COUNT (AUTO) 19.1 K/uL (4.3-11.0)
[2021-12-15] MEDS: MIDODRINE HCL (5MG) 5 MG TABLET PO SCH ×3 (05:03→21:13)
[2021-12-15] MEDS: METOCLOPRAMIDE HCL 10 MG/2 ML VIAL IV SCH ×3 (05:03→21:12)
[2021-12-15] MEDS: PHENYTOIN SODIUM IV 100 MG/2ML VIAL IV SCH ×3 (05:03→21:12)
[2021-12-15] MEDS: HYDROCORTISONE SOD SUCCINATE 100 MG/2 ML VIAL IV SCH ×3 (05:03→21:12)
[2021-12-15] MEDS: BLOOD SUGAR DIAGNOSTIC 1 EACH STRIP IN SCH ×4 (05:15→23:23)
[2021-12-15] MEDS: VANCOMYCIN HCL 125 MG/2.5 ML ORAL.SUSP PO SCH ×5 (05:16→23:14)
[2021-12-15 05:18] LABS: UREA NITROGEN, BLOOD 96 mg/dL (7-18)
[2021-12-15] MEDS: INSULIN REGULAR, HUMAN 100 UNIT/ML 3 ML VIAL SQ PRN ×4 (05:26→23:24)
--- NOTE | 2021-12-15 07:33 | NUR ---
RN OPENING NOTE RECEIVED PATIENT IN BED, EYES CLOSED, NON-VERBAL. UNABLE TO FOLLOW COMMANDS. BREATHING EVEN AND UNLABORED. NOTED WITH TRACH, ON VENT, SETTINGS OF AC 14, TV 500, FIO2 30, PEEP 0.0. SKIN WARM AND DRY. IV ACCESS NOTED ON LEFT UPPER ARM PICC LINE. AND RIGHT UPPER CHEST WALL PERM CATH. CURRENTLY INFUSING NOREPINEPRINE AT 0.06 MCG/KG/MIN. TOLERATING WELL. NOTED WITH G-TUBE, CURRENTLY INFUSING NEPRO AT 45CC/HR. NOTED WITH 20 ML RESIDUAL. HOB ELEVATED. 40 DEGREES. SAFETY MEASURE IN PLACE. BED LOCKED IN THE LOWEST POSITION WITH 2 SIDE RAILS UP, CALL LIGHT WITHIN REACH AND BED ALARM ACTIVATED.
[2021-12-15] MEDS: MEROPENEM 500 MG in IV NS 0.9% 50 ML IV SCH (08:05)
[2021-12-15] MEDS: DAKINS HALF STRENGTH (0.25%) 480 ML BOTTLE TOP SCH (08:06)
[2021-12-15] MEDS: THERAHONEY GEL 1.5 OZ TUBE TP SCH (08:06)
[2021-12-15] MEDS: DORZOLAMIDE OPTH 2% 10 ML BOTTLE OP SCH ×2 (08:07→17:42)
[2021-12-15] MEDS: PHENOBARBITAL 30 MG TABLET GT SCH ×2 (08:11→21:12)
[2021-12-15] MEDS: PANTOPRAZOLE 40 MG/PACK PACK GT SCH (08:11)
[2021-12-15] MEDS: CHLORHEXIDINE GLUCONATE 15 ML UDC MM SCH ×2 (08:11→17:41)
[2021-12-15] MEDS: PROSOURCE / PROSTAT (PYXIS) 30 ML UDC GT SCH ×2 (09:12→17:41)
[2021-12-15] MEDS: NOREPINEPHRINE 8 MG in IV NS 0.9% 242 ML IV PRN (10:09)
--- NOTE | 2021-12-15 10:10 | NUR ---
RN NOTE LEVOPHED BAG CHANGED, CONCENTRATION NOTED TO HAVE CHANGED FORM 32 TO 8MG. PATIENT WEIGHT 192 CONVERTED TO 88KG. RATE 0.06 INTAKE 10.56MLS/HR.
[2021-12-15 13:00] LABS: BAND % (MANUAL) 2 % (0.0-5.0); LYMPHOCYTES % (MANUAL) 5 % (16-48); METAMYELOCYTES % 2 % (0-0); MONOCYTES % (MANUAL) 11 % (0-11.0); MYELOCYTES % 1 % (0-0); NEUTROPHILS % (MANUAL) 79 (42-76)
[2021-12-15] MEDS: COLISTIMETHATE SODIUM 150 MG in IV NS 0.9% 50 ML IV SCH (17:41)
[2021-12-15] MEDS: NEPRO 1,000 ML BOTTLE GT SCH (17:56)
--- NOTE | 2021-12-15 18:50 | NUR ---
RN CLOSING NOTE PATIENT IN BED, EYES CLOSED, NON-VERBAL. UNABLE TO FOLLOW COMMANDS. BREATHING EVEN AND UNLABORED. NOTED WITH TRACH, ON VENT, SETTINGS OF AC 14, TV 500, FIO2 30, PEEP 0.0. SKIN WARM AND DRY. IV ACCESS NOTED ON LEFT UPPER ARM PICC LINE. AND RIGHT UPPER CHEST WALL PERM CATH. CURRENTLY INFUSING NOREPINEPRINE AT 0.03 MCG/KG/MIN. TOLERATING WELL CURRENT BP 111/50 MAP74. NOTED WITH G-TUBE, CURRENTLY INFUSING NEPRO AT 45CC/HR NO RESIDUAL TOLERATING WELL. HOB ELEVATED. 40 DEGREES. WOUND CARE DONE, SCHEDULED MEDICATIONS GIVEN. SAFETY MEASURE IN PLACE. BED LOCKED IN THE LOWEST POSITION WITH 2 SIDE RAILS UP, CALL LIGHT WITHIN REACH AND BED ALARM ACTIVATED. WILL ENDORSE TO NIGHT NURSE FOR OTIS.
[2021-12-15] MEDS: DAPTOMYCIN IV SCH (19:01)
[2021-12-15] MEDS: NS 0.9% IV SCH (19:01)
--- NOTE | 2021-12-15 19:15 | NUR ---
RECEIVED PATIENT OBTUNDED OPEN EYES TO STIMULI, ON MECHANICAL VENTILATION SETTINGS TOLERATED WELL, RESPIRATORY EVEN AND UNLABORED,NO S/S OF DISTRESS NOTED. NOTED WITH TEMP 98.7 F, TELE MONITOR READS SINUS RHYTHM 80'S, PATIENT HAVE XIOMARA PICC LINE, DRESSING INTACT IN PLACED,WITH ONGOING LEVOPHED @ 0.03 mcg/kg/min. WITH GTUBE IN PLACED, VERIFIED PLACEMENT BY AUSCULTATION, WITH RESIDUAL OF 10 ML UPON ASPIRATION, WITH ONGOING NEPHRO @ 45 ML/HR, WITH RECTAL TUBE IN PLACE. ALL SAFETY PRECAUTION PROVIDED, BED IN LOWEST POSITION, LOCKED. CONTINUE TO MONITOR.
[2021-12-15] MEDS: LATANOPROST EYE DROP 0.005% 2.5 ML BOTTLE OP SCH (21:13)
[2021-12-16] VITALS (95 sets, daily range): BP systolic 66–147; BP diastolic 28–69
[2021-12-16] MEDS: IV NS 0.9% 250 ML IV PRN (01:01)
[2021-12-16] MEDS: IPRATROPIUM NEB FS 0.5 MG/2.5 ML AMPUL.NEB NEB SCH ×4 (01:46→19:18)
[2021-12-16] MEDS: HYDROCORTISONE SOD SUCCINATE 100 MG/2 ML VIAL IV SCH ×3 (04:30→20:50)
[2021-12-16] MEDS: METOCLOPRAMIDE HCL 10 MG/2 ML VIAL IV SCH ×3 (04:30→20:49)
[2021-12-16] MEDS: PHENYTOIN SODIUM IV 100 MG/2ML VIAL IV SCH ×3 (04:31→20:49)
[2021-12-16] MEDS: MIDODRINE HCL (5MG) 5 MG TABLET PO SCH ×3 (04:31→20:49)
[2021-12-16] MEDS: VANCOMYCIN HCL 125 MG/2.5 ML ORAL.SUSP PO SCH ×4 (05:32→23:15)
[2021-12-16] MEDS: BLOOD SUGAR DIAGNOSTIC 1 EACH STRIP IN SCH ×4 (05:47→23:22)
[2021-12-16] MEDS: INSULIN REGULAR, HUMAN 100 UNIT/ML 3 ML VIAL SQ PRN ×4 (05:48→23:23)
--- NOTE | 2021-12-16 07:22 | NUR ---
PT ON BED STILL ON TRACH/VENT SETTING PER MD FIO2 30% SPO2 98-99% NO SIGN OF RESPIRATORY DISTRESS NOTED TELE MONITOR READS SINUS RHYTHM 90'S STILL ON LEVOPHED @ 0.03 MCG/KG/MIN INSUFING VIA XIOMARA PICC, GTUBE WITH ONGOING NEPRO @ 45ML/HR TOLERATING WELL, WOUND TREATMENT DONE, STILL WITH FLEXISEAL, BED ON LOWEST POSITION AND LOCKED SIDE RAILS UP X2 CALL LIGHT WITHIN REACH WILL CONT TO MONITOR
--- NOTE | 2021-12-16 07:30 | NUR ---
RN NOTES PT FOUND SEMI FOWLERS DISPLAYING NO S/S OF DISTRESS, FLACC = 0 AND BILATERAL RISE AND FALL OF THE CHEST OBSERVED. TRACHEOSTOMY DRESSING IS CLEAN AND DRY. L UA PICC IS PATIENT AND INTACT. R UPPER CHEST PERMACATH DRESSING IS CLEAN AND DRY. FLEXISEAL IS INTACT, BAG BELOW PATIENT DRAINING BY GRAVITY. VSS, RN WILL MONITOR AND TREAT THROUGHOUT SHIFT. SAFETY MEASURES IN PLACE, BED LOCKED AND IN LOWEST POSITION, SIDE RAILS UPX2, CALL LIGHT WITHIN REACH, BED ALARM ARMED.
[2021-12-16] MEDS: PANTOPRAZOLE 40 MG/PACK PACK GT SCH (07:47)
[2021-12-16] MEDS: PROSOURCE / PROSTAT (PYXIS) 30 ML UDC GT SCH ×2 (09:20→17:02)
[2021-12-16] MEDS: PHENOBARBITAL 30 MG TABLET GT SCH ×2 (09:20→20:49)
[2021-12-16] MEDS: MEROPENEM 500 MG in IV NS 0.9% 50 ML IV SCH (09:20)
[2021-12-16] MEDS: DAKINS HALF STRENGTH (0.25%) 480 ML BOTTLE TOP SCH (09:20)
[2021-12-16] MEDS: CHLORHEXIDINE GLUCONATE 15 ML UDC MM SCH ×2 (09:20→17:03)
[2021-12-16] MEDS: THERAHONEY GEL 1.5 OZ TUBE TP SCH (09:21)
[2021-12-16] MEDS: DORZOLAMIDE OPTH 2% 10 ML BOTTLE OP SCH ×2 (09:22→17:04)
[2021-12-16] MEDS: NOREPINEPHRINE 8 MG in IV NS 0.9% 242 ML IV PRN (09:50)
[2021-12-16] MEDS: COLISTIMETHATE SODIUM 150 MG in IV NS 0.9% 50 ML IV SCH (17:51)
[2021-12-16] MEDS: NEPRO 1,000 ML BOTTLE GT SCH (18:04)
--- NOTE | 2021-12-16 19:10 | NUR ---
RN NOTES PT FOUND SEMI FOWLERS DISPLAYING NO S/S OF DISTRESS, FLACC = 0 AND BILATERAL RISE AND FALL OF THE CHEST OBSERVED. TRACHEOSTOMY DRESSING IS CLEAN AND DRY. L UA PICC IS PATIENT AND INTACT. R UPPER CHEST PERMACATH DRESSING IS CLEAN AND DRY. FLEXISEAL IS INTACT, BAG BELOW PATIENT DRAINING BY GRAVITY. SBAR AND REPORT GIVEN TO TEAM CDL DRIVER RN, ALL QUESTIONS ANSWERED. SAFETY MEASURES IN PLACE, BED LOCKED AND IN LOWEST POSITION, SIDE RAILS UPX2, CALL LIGHT WITHIN REACH, BED ALARM ARMED. PT ENDORSED IN STABLE CONDITION FOR OTIS.
--- NOTE | 2021-12-16 19:15 | NUR ---
RECEIVED PATIENT OBTUNDED OPEN EYES TO STIMULI, ON MECHANICAL VENTILATION SETTINGS TOLERATED WELL, RESPIRATORY EVEN AND UNLABORED,NO S/S OF DISTRESS NOTED. NOTED WITH TEMP 99 F, TELE MONITOR READS SINUS RHYTHM 90'S, PATIENT HAVE XIOMARA PICC LINE, DRESSING INTACT IN PLACED,WITH ONGOING LEVOPHED @ 0.01 mcg/kg/min. WITH GTUBE IN PLACED, VERIFIED PLACEMENT BY AUSCULTATION, WITH RESIDUAL OF 10 ML UPON ASPIRATION, WITH ONGOING NEPHRO @ 45 ML/HR, WITH RECTAL TUBE IN PLACE. ALL SAFETY PRECAUTION PROVIDED, BED IN LOWEST POSITION, LOCKED. CONTINUE TO MONITOR.
[2021-12-16] MEDS: LATANOPROST EYE DROP 0.005% 2.5 ML BOTTLE OP SCH (21:49)
[2021-12-17] VITALS (95 sets, daily range): BP systolic 58–180; BP diastolic 28–77
[2021-12-17] MEDS: IPRATROPIUM NEB FS 0.5 MG/2.5 ML AMPUL.NEB NEB SCH ×4 (01:13→19:21)
[2021-12-17] MEDS: MIDODRINE HCL (5MG) 5 MG TABLET PO SCH ×3 (04:50→21:11)
[2021-12-17] MEDS: METOCLOPRAMIDE HCL 10 MG/2 ML VIAL IV SCH ×3 (04:50→21:08)
[2021-12-17] MEDS: HYDROCORTISONE SOD SUCCINATE 100 MG/2 ML VIAL IV SCH ×3 (04:50→21:06)
[2021-12-17] MEDS: PHENYTOIN SODIUM IV 100 MG/2ML VIAL IV SCH ×3 (04:51→21:10)
[2021-12-17] MEDS: IV NS 0.9% 250 ML IV PRN (05:05)
[2021-12-17] MEDS: VANCOMYCIN HCL 125 MG/2.5 ML ORAL.SUSP PO SCH ×4 (05:05→23:51)
[2021-12-17] MEDS: BLOOD SUGAR DIAGNOSTIC 1 EACH STRIP IN SCH ×4 (05:12→23:48)
[2021-12-17] MEDS: INSULIN REGULAR, HUMAN 100 UNIT/ML 3 ML VIAL SQ PRN ×3 (05:23→23:51)
--- NOTE | 2021-12-17 06:54 | NUR ---
PT ON BED STILL ON TRACH/VENT SETTING PER MD FIO2 30% SPO2 98-99% NO SIGN OF RESPIRATORY DISTRESS NOTED TELE MONITOR READS SINUS RHYTHM 90'S STILL ON LEVOPHED @ 0.02 MCG/KG/MIN INSUFING VIA XIOMARA PICC, GTUBE WITH ONGOING NEPRO @ 45ML/HR TOLERATING WELL, WOUND TREATMENT DONE, STILL WITH FLEXISEAL, BED ON LOWEST POSITION AND LOCKED SIDE RAILS UP X2 CALL LIGHT WITHIN REACH WILL CONT TO MONITOR
--- NOTE | 2021-12-17 07:15 | NUR ---
RN NOTES PT FOUND SEMI FOWLERS DISPLAYING NO S/S OF DISTRESS, FLACC = 0 AND BILATERAL RISE AND FALL OF THE CHEST OBSERVED. TRACHEOSTOMY DRESSING IS CLEAN AND DRY. L UA PICC IS PATIENT AND INTACT. R UPPER CHEST PERMACATH DRESSING IS CLEAN AND DRY. FLEXISEAL IS INTACT, BAG BELOW PATIENT DRAINING BY GRAVITY. VSS, RN WILL MONITOR AND TREAT THROUGHOUT SHIFT. SAFETY MEASURES IN PLACE, BED LOCKED AND IN LOWEST POSITION, SIDE RAILS UPX2, CALL LIGHT WITHIN REACH, BED ALARM ARMED. Addendum: 12/17/21 at 0844 by TRISTAN ELIZALDE RN 100 CC RESIDUAL FOUND.
[2021-12-17] MEDS: PANTOPRAZOLE 40 MG/PACK PACK GT SCH (08:04)
[2021-12-17 08:22] LABS: BASOPHILS # (AUTO) 0.1 K/uL (0.0-0.2); BASOPHILS % (AUTO) 0.4 % (0.0-2.0); EOSINOPHILS % (AUTO) 0.1 % (0.0-6.0); HEMATOCRIT 28 % (33-45); LYMPHOCYTES # (AUTO) 0.9 K/uL (0.8-4.8); LYMPHOCYTES % (AUTO) 4.4 % (20.0-44.0); MEAN CORPUSCULAR HGB CONC 29 g/dl (31.0-36.0); MEAN CORPUSCULAR VOLUME 105 fL (82-100); MONOCYTES # (AUTO) 1.1 K/uL (0.1-1.30); MONOCYTES % (AUTO) 5.4 % (2.0-12.0); NEUTROPHILS # (AUTO) 18.6 K/uL (1.8-8.9); NEUTROPHILS % (AUTO) 89.7 % (43.0-81.0); PLATELET COUNT (AUTO) 166 K/uL (150-450); RED BLOOD CELL COUNT(AUTO) 2.62 MIL/uL (4.0-5.2); WHITE BLOOD COUNT (AUTO) 20.8 K/uL (4.3-11.0)
[2021-12-17] MEDS: MEROPENEM 500 MG in IV NS 0.9% 50 ML IV SCH (08:23)
[2021-12-17] MEDS: PHENOBARBITAL 30 MG TABLET GT SCH ×2 (08:23→21:11)
[2021-12-17] MEDS: THERAHONEY GEL 1.5 OZ TUBE TP SCH (08:23)
[2021-12-17] MEDS: CHLORHEXIDINE GLUCONATE 15 ML UDC MM SCH ×2 (08:23→17:23)
[2021-12-17] MEDS: DORZOLAMIDE OPTH 2% 10 ML BOTTLE OP SCH ×2 (08:23→17:22)
[2021-12-17] MEDS: DAKINS HALF STRENGTH (0.25%) 480 ML BOTTLE TOP SCH (08:23)
[2021-12-17] MEDS: PROSOURCE / PROSTAT (PYXIS) 30 ML UDC GT SCH ×2 (08:23→17:23)
[2021-12-17 08:36] LABS: CALCIUM, SERUM 8.2 mg/dL (8.5-10.1); CARBON DIOXIDE 20 mmol/L (21-32); CHLORIDE 102 mmol/L (98-107); CREATININE 1.7 mg/dL (0.6-1.3); GLUCOSE 185 mg/dL (74-106); SODIUM SERUM 137 mmol/L (136-145)
[2021-12-17 08:49] LABS: UREA NITROGEN, BLOOD 91 mg/dL (7-18)
[2021-12-17] MEDS: NOREPINEPHRINE 8 MG in IV NS 0.9% 242 ML IV PRN (10:11)
[2021-12-17] MEDS: ALBUMIN 25% 25 GM in PREMIX 1 EA IV PRN (10:35)
[2021-12-17] MEDS ORDERED: EPOETIN ALFA-EPBX 10,000 UNIT/ML VIAL IV ONE (15:00)
[2021-12-17] MEDS: COLISTIMETHATE SODIUM 150 MG in IV NS 0.9% 50 ML IV SCH (17:22)
--- NOTE | 2021-12-17 17:30 | NUR ---
TRANSFER OF CARE PT REASSIGNED TO NIMA RODAS FOR OTIS. SBAR AND REPORT GIVEN. ALL QUESTIONS ANSWERED.
--- NOTE | 2021-12-17 17:30 | NUR ---
RN NOTES RECEIVED PT ON BED , VENT/TRACH DEPENDENT, TOLERATING VENT SETTING WELL, O2 SAT WNL, ON LEVO DRIP AT .01 MCG/KG/MIN RUNNING VIA L UPPER ARM PICC LINE , SITE CLEAN, DRY AND INTACT, CONTINUE TO MONITOR
--- NOTE | 2021-12-17 18:25 | NUR ---
RN NOTES NO SIGNFICANT CHANGES NOTED , WILL ENDORSE TO AGRICULTURAL REAL ESTATE AGENT NURSE FOR CONTINUITY OF CARE .
[2021-12-17] MEDS: NS 0.9% IV SCH (18:53)
[2021-12-17] MEDS: DAPTOMYCIN IV SCH (18:53)
--- NOTE | 2021-12-17 20:15 | NUR ---
RN NOTE RECEIVED PT IN BED. NOT IN ANY DISTRESS. TOLERATING VENT SETTINGS. O2 SAT AT 98% PT DAUGHTER AT BEDSIDE. PT OFF WITH PRESSORS. GT PATENT AND INTACT, GT FEEDING OF NEPRO AT 45ML/HR. NO RESIDUALS WERE NOTED. FLUSHED WITH WATER. PICC LINE PATENT AND INTACT. ALL SAFETY MEASURES IN PLACE PER PROTOCOL. WILL CONTINUE TO MONITOR.
[2021-12-17] MEDS: LATANOPROST EYE DROP 0.005% 2.5 ML BOTTLE OP SCH (21:32)
[2021-12-17] MEDS: NEPRO 1,000 ML BOTTLE GT SCH (22:28)
[2021-12-18] VITALS (89 sets, daily range): BP systolic 82–129; BP diastolic 30–68
[2021-12-18] MEDS: IPRATROPIUM NEB FS 0.5 MG/2.5 ML AMPUL.NEB NEB SCH ×4 (01:23→19:41)
[2021-12-18] MEDS: IV NS 0.9% 250 ML IV PRN (04:31)
[2021-12-18] MEDS: HYDROCORTISONE SOD SUCCINATE 100 MG/2 ML VIAL IV SCH ×2 (04:53→17:31)
[2021-12-18] MEDS: METOCLOPRAMIDE HCL 10 MG/2 ML VIAL IV SCH ×3 (04:55→21:30)
[2021-12-18] MEDS: PHENYTOIN SODIUM IV 100 MG/2ML VIAL IV SCH ×3 (04:58→21:30)
[2021-12-18] MEDS: MIDODRINE HCL (5MG) 5 MG TABLET PO SCH ×3 (05:00→21:31)
[2021-12-18] MEDS: VANCOMYCIN HCL 125 MG/2.5 ML ORAL.SUSP PO SCH ×4 (05:17→23:35)
[2021-12-18] MEDS: INSULIN REGULAR, HUMAN 100 UNIT/ML 3 ML VIAL SQ PRN ×3 (05:24→23:37)
[2021-12-18] MEDS: BLOOD SUGAR DIAGNOSTIC 1 EACH STRIP IN SCH ×4 (05:40→23:35)
--- NOTE | 2021-12-18 06:52 | NUR ---
RN NOTE PT CONTINUE WITH VENT SETTINGS, TOLERATING WELL. NO S/SX OF DISTRESS. LEVOPHED RESTARTED DUE TO LOW BP, NOW RUNNING AT 0.01MCG/KG/MIN, INFUSING WELL. SR ON TELE MONITOR. PT TOLERATES GT FEEDING, KEPT HOB ELEVATED. NO SSX OF ASPIRATION. FSBS 201. INSULIN COVERAGE GIVEN ORDERED. CHANGED RECTAL TUBE, INTACT. LATEST TEMP 99.6. COOLING MEASURES APPLIED. WOUND TX WERE DONE, TURNED AND REPOSITIONED. KEPT CLEAN AND DRY. WILL ENDORSE TO NEXT SHIFT NURSE FOR OTIS.
--- NOTE | 2021-12-18 08:00 | NUR ---
RN NOTES RECEIVED PATIENT NO S/SX OF DISTRESS, ON TRACH/VENT DEPENDENT, INFUSING LEVOPHED 0.01MCG/KG/MIN, AND TKO 10ML/HR INTACT. TELE MONITOR SHOWS 88- SR, T-99.1F. PT TOLERATES GT FEEDING WELL, NO RESIDUAL, KEPT HOB ELEVATED. TURNED AND REPOSITIONED Q 2 HR. WILL FOLLOW UP.
[2021-12-18] MEDS: CHLORHEXIDINE GLUCONATE 15 ML UDC MM SCH ×2 (09:28→17:32)
[2021-12-18] MEDS: PHENOBARBITAL 30 MG TABLET GT SCH ×2 (09:29→21:31)
[2021-12-18] MEDS: MEROPENEM 500 MG in IV NS 0.9% 50 ML IV SCH (09:29)
[2021-12-18] MEDS: DAKINS HALF STRENGTH (0.25%) 480 ML BOTTLE TOP SCH (09:30)
[2021-12-18] MEDS: DORZOLAMIDE OPTH 2% 10 ML BOTTLE OP SCH ×2 (09:30→17:32)
[2021-12-18] MEDS: THERAHONEY GEL 1.5 OZ TUBE TP SCH (09:30)
[2021-12-18] MEDS: PROSOURCE / PROSTAT (PYXIS) 30 ML UDC GT SCH ×2 (09:31→17:31)
[2021-12-18] MEDS: PANTOPRAZOLE 40 MG/PACK PACK GT SCH (09:33)
[2021-12-18 09:43] LABS: BAND % (MANUAL) 1 % (0.0-5.0); LYMPHOCYTES % (MANUAL) 2 % (16-48); METAMYELOCYTES % 1 % (0-0); MONOCYTES % (MANUAL) 13 % (0-11.0); MYELOCYTES % 1 % (0-0); NEUTROPHILS % (MANUAL) 82 (42-76)
[2021-12-18] MEDS ORDERED: DAPTOMYCIN 500 MG in IV NS 0.9% 50 ML IV SCH (12:00)
[2021-12-18] MEDS: NOREPINEPHRINE 8 MG in IV NS 0.9% 242 ML IV PRN (12:15)
--- NOTE | 2021-12-18 13:02 | NUR ---
RN NOTES BS-172 MG/DL COVERAGE GIVEN, DUE MEDICATION ADMINISTERED WELL. ASSIST TURN AND REPOSTION Q 2 HR.
[2021-12-18] MEDS: COLISTIMETHATE SODIUM 150 MG in IV NS 0.9% 50 ML IV SCH (17:32)
--- NOTE | 2021-12-18 18:30 | NUR ---
RN NOTES PATIENT STABLE HAS NO ACUTE RESPIRATORY DISTRESS. PATIENT ON LEVOPHED 0.01 MCG/KG/MIN. DUE MEDICATION ADMINISTERED, BS-85 MG/DL, PM CARE DONE, NOUTH CARE, SUCTION. ASIST TURN AND REPOSTION Q 2 HR, ENDORSED ONCOMING NURSE OTIS.
--- NOTE | 2021-12-18 20:00 | NUR ---
ICU NOTES Received patient resting in no acute distress.tolerating vent settings.VS stable.SR.On Levophed gtt low dose for BP support.GT feeding infusing with small residual.Maintain HOB elevated Turned and repositioned. Flexi seal in place with liquid stool.Kept clean and dry.
[2021-12-18] MEDS: LATANOPROST EYE DROP 0.005% 2.5 ML BOTTLE OP SCH (21:31)
[2021-12-19] VITALS (93 sets, daily range): BP systolic 85–125; BP diastolic 35–92
[2021-12-19] MEDS: IPRATROPIUM NEB FS 0.5 MG/2.5 ML AMPUL.NEB NEB SCH ×4 (01:05→20:02)
[2021-12-19] MEDS: IV NS 0.9% 250 ML IV PRN (03:32)
[2021-12-19] MEDS: METOCLOPRAMIDE HCL 10 MG/2 ML VIAL IV SCH ×3 (05:28→21:20)
[2021-12-19] MEDS: BLOOD SUGAR DIAGNOSTIC 1 EACH STRIP IN SCH ×4 (05:28→23:47)
[2021-12-19] MEDS: MIDODRINE HCL (5MG) 5 MG TABLET PO SCH ×3 (05:29→21:20)
[2021-12-19] MEDS: PHENYTOIN SODIUM IV 100 MG/2ML VIAL IV SCH ×3 (05:29→21:20)
[2021-12-19] MEDS: VANCOMYCIN HCL 125 MG/2.5 ML ORAL.SUSP PO SCH ×4 (05:29→23:47)
[2021-12-19] MEDS: NEPRO 1,000 ML BOTTLE GT SCH (05:55)
--- NOTE | 2021-12-19 06:25 | NUR ---
ICU END NOTES Patient resting eyes open in no acute distress.SR.BP WNL Levophed gtt titrated off.Tolerating vent settings well.Tolerating gt feeding.No significant changes noted during the shift.All due medications administered.AM care done.Wound care done.Turned and repositioned Q 2hrs off loading pressure points.
--- NOTE | 2021-12-19 07:30 | NUR ---
RN OPENING NOTE PT OBSERVED IN BED WITH HOB SEMI FOWLERS. PT IS ON MECHANICAL VENT WITH ALL PRESCRIBED SETTINGS TOLERATING WELL WITH NO SIGNS OF DISTRESS OR LABORED BREATHING O2SAT 100%. PT IS NON VERBAL. GTUBE IN PLACE WITH POSITIVE PLACEMENT INFUSING WITH NEPR @ 45ML/HR. PT IS ANURIC AND IS SCHEDULED FOR HD TODAY; FLEXISEAL IS IN PLACE. IV ACCESS L UA PICC INFUSING WITH LEVO @ 0.01 MCG/HR AND R SUBCLAVIAN PERMACATH FOR HD. BED IS LOCKED IN LOWEST POSITION AND ALL HOSPITAL SAFETY PRECAUTIONS ARE IN PLACE. WILL CONTINUE TO MONITOR THIS SHIFT.
[2021-12-19] MEDS: CHLORHEXIDINE GLUCONATE 15 ML UDC MM SCH ×2 (08:26→17:30)
[2021-12-19] MEDS: PANTOPRAZOLE 40 MG/PACK PACK GT SCH (08:26)
[2021-12-19] MEDS: HYDROCORTISONE SOD SUCCINATE 100 MG/2 ML VIAL IV SCH ×2 (08:26→17:30)
[2021-12-19] MEDS: PHENOBARBITAL 30 MG TABLET GT SCH ×2 (08:27→21:20)
[2021-12-19] MEDS: MEROPENEM 500 MG in IV NS 0.9% 50 ML IV SCH (08:27)
[2021-12-19] MEDS: DAKINS HALF STRENGTH (0.25%) 480 ML BOTTLE TOP SCH (08:34)
[2021-12-19] MEDS: DORZOLAMIDE OPTH 2% 10 ML BOTTLE OP SCH ×2 (08:34→17:28)
[2021-12-19] MEDS: THERAHONEY GEL 1.5 OZ TUBE TP SCH (08:34)
[2021-12-19] MEDS: PROSOURCE / PROSTAT (PYXIS) 30 ML UDC GT SCH ×2 (08:35→17:27)
[2021-12-19] MEDS: INSULIN REGULAR, HUMAN 100 UNIT/ML 3 ML VIAL SQ PRN ×3 (12:16→23:50)
--- NOTE | 2021-12-19 12:16 | NUR ---
RN NOTE PT BS 118. PER SLIDING SCALE, NO COVERAGE NEEDED AT THIS TIME.
--- NOTE | 2021-12-19 12:26 | NUR ---
RN NOTE PT TEMP 100.2. WILL GIVE TYLENOL AND REASSESS.
[2021-12-19] MEDS: ACETAMINOPHEN 650 MG/20.3 ML UDC GT PRN (12:27)
[2021-12-19] MEDS: NYSTATIN (PYXIS) 500,000 UNIT/5 ML ORAL.SUSP PO SCH ×2 (14:03→17:30)
[2021-12-19] MEDS: COLISTIMETHATE SODIUM 150 MG in IV NS 0.9% 50 ML IV SCH (17:34)
[2021-12-19] MEDS: NOREPINEPHRINE 8 MG in IV NS 0.9% 242 ML IV PRN (18:33)
[2021-12-19] MEDS: NS 0.9% IV SCH (18:54)
[2021-12-19] MEDS: DAPTOMYCIN IV SCH (18:54)
--- NOTE | 2021-12-19 19:42 | NUR ---
RN CLOSING NOTE PT IS IN BED WITH HOB SEMI FOWLERS. PT IS ON MECHANICAL VENT WITH ALL PRESCRIBED SETTINGS TOLERATING WELL WITH NO SIGNS OF DISTRESS OR LABORED BREATHING O2SAT 100%. PT IS NON VERBAL. GTUBE IN PLACE WITH POSITIVE PLACEMENT INFUSING WITH NEPR @ 45ML/HR. PT IS ANURIC AND DID NOT HAVE HD TODAY. FLEXISEAL IS IN PLACE. IV ACCESS L UA PICC INFUSING WITH LEVO @ 0.01 MCG/HR AND R SUBCLAVIAN PERMACATH FOR HD. BED IS LOCKED IN LOWEST POSITION AND ALL HOSPITAL SAFETY PRECAUTIONS ARE IN PLACE. WILL ENDORSE TO SUPERVISOR PLEATING NURSE FOR OTIS.
--- NOTE | 2021-12-19 20:00 | NUR ---
ICU NOTES Patient resting in no acute distress.Maintain on same vent settings well tolerated.SR .VS stable. Patient On Levophed gtt low dose for BP support.Continue on same gt feeding well tolerated.HOB elevated to prevent aspiration.NS at tko infusing to XIOMARA PICC LIINE.Site intact.Flexi seal in place with liquid stool.Turned and repositioned off loading pressure points.
[2021-12-19] MEDS: LATANOPROST EYE DROP 0.005% 2.5 ML BOTTLE OP SCH (21:21)
--- NOTE | 2021-12-19 23:00 | NUR ---
ICU NOTES Patient had HD X 2 HRS.No output only done cleaning.Tolerated procedure well.
[2021-12-20] VITALS (83 sets, daily range): BP systolic 86–137; BP diastolic 36–66
[2021-12-20] MEDS: IPRATROPIUM NEB FS 0.5 MG/2.5 ML AMPUL.NEB NEB SCH ×4 (01:28→20:19)
--- NOTE | 2021-12-20 02:00 | NUR ---
ICU NOTES Patient remains stable.AM care done.Oral care done.Wound care done.Tolerating procedure well.No distress noted.Turned and repositioned.
[2021-12-20] MEDS: IV NS 0.9% 250 ML IV PRN (03:39)
[2021-12-20] MEDS: PHENYTOIN SODIUM IV 100 MG/2ML VIAL IV SCH ×3 (05:36→21:14)
[2021-12-20] MEDS: METOCLOPRAMIDE HCL 10 MG/2 ML VIAL IV SCH ×3 (05:36→21:14)
[2021-12-20] MEDS: BLOOD SUGAR DIAGNOSTIC 1 EACH STRIP IN SCH ×4 (05:37→23:40)
[2021-12-20] MEDS: VANCOMYCIN HCL 125 MG/2.5 ML ORAL.SUSP PO SCH ×4 (05:37→23:36)
[2021-12-20] MEDS: MIDODRINE HCL (5MG) 5 MG TABLET PO SCH ×3 (05:37→21:14)
--- NOTE | 2021-12-20 06:15 | NUR ---
END NOTE Patient resting in no acute distress.Continue same vent settings and GT feeding.SR.All due medications administered.Tried to stop Levophed gtt but Blood Pressure drop to 86/38. Levophed gtt restarted at same rate 0.01 mcg.Blood sugar wnl.Turned and repositioned.
--- NOTE | 2021-12-20 07:30 | NUR ---
RN NOTES PT FOUND SEMI FOWLERS DISPLAYING NO S/S OF DISTRESS, FLACC = 0 AND BILATERAL RISE AND FALL OF THE CHEST OBSERVED. 20 ML RESIDUAL FOUND VIA PEG ASPIRATION. TRACHEOSTOMY DRESSING IS CLEAN AND DRY. L UA PICC IS PATIENT AND INTACT. R UPPER CHEST PERMACATH DRESSING IS CLEAN AND DRY. FLEXISEAL IS INTACT, BAG BELOW PATIENT DRAINING BY GRAVITY. VSS, RN WILL MONITOR AND TREAT THROUGHOUT SHIFT. SAFETY MEASURES IN PLACE, BED LOCKED AND IN LOWEST POSITION, SIDE RAILS UPX2, CALL LIGHT WITHIN REACH, BED ALARM ARMED.
[2021-12-20] MEDS: PANTOPRAZOLE 40 MG/PACK PACK GT SCH (07:36)
[2021-12-20] MEDS: NYSTATIN (PYXIS) 500,000 UNIT/5 ML ORAL.SUSP PO SCH ×3 (08:27→17:21)
[2021-12-20] MEDS: PHENOBARBITAL 30 MG TABLET GT SCH ×2 (08:27→21:14)
[2021-12-20] MEDS: MEROPENEM 500 MG in IV NS 0.9% 50 ML IV SCH (08:27)
[2021-12-20] MEDS: DORZOLAMIDE OPTH 2% 10 ML BOTTLE OP SCH ×2 (08:27→17:21)
[2021-12-20] MEDS: DAKINS HALF STRENGTH (0.25%) 480 ML BOTTLE TOP SCH (08:27)
[2021-12-20] MEDS: HYDROCORTISONE SOD SUCCINATE 100 MG/2 ML VIAL IV SCH ×2 (08:27→17:21)
[2021-12-20] MEDS: PROSOURCE / PROSTAT (PYXIS) 30 ML UDC GT SCH ×2 (08:27→17:21)
[2021-12-20] MEDS: CHLORHEXIDINE GLUCONATE 15 ML UDC MM SCH ×2 (08:27→17:21)
[2021-12-20] MEDS: THERAHONEY GEL 1.5 OZ TUBE TP SCH (08:28)
[2021-12-20] MEDS: NEPRO 1,000 ML BOTTLE GT SCH (08:40)
--- NOTE | 2021-12-20 09:25 | NUR ---
MD VISIT MD DID ROUNDS, SPOKE TO RN ABOUT BP. MD GAVE ORDERS: ALBUMIN 25% IN 100ML ONCE.
[2021-12-20] MEDS ORDERED: ALBUMIN 25% 25 GM in PREMIX 1 EA IV ONE ×2 (10:00→14:00)
[2021-12-20] MEDS: NOREPINEPHRINE 8 MG in IV NS 0.9% 242 ML IV PRN (12:32)
[2021-12-20] MEDS: INSULIN REGULAR, HUMAN 100 UNIT/ML 3 ML VIAL SQ PRN ×3 (12:39→23:41)
[2021-12-20] MEDS: COLISTIMETHATE SODIUM 150 MG in IV NS 0.9% 50 ML IV SCH (17:21)
--- NOTE | 2021-12-20 19:05 | NUR ---
RN NOTES PT FOUND SEMI FOWLERS DISPLAYING NO S/S OF DISTRESS, FLACC = 0 AND BILATERAL RISE AND FALL OF THE CHEST OBSERVED. 10 ML RESIDUAL FOUND VIA PEG ASPIRATION. TRACHEOSTOMY DRESSING IS CLEAN AND DRY. L UA PICC IS PATIENT AND INTACT. R UPPER CHEST PERMACATH DRESSING IS CLEAN AND DRY. FLEXISEAL IS INTACT (REINSERTED IN SHIFT), BAG BELOW PATIENT DRAINING BY GRAVITY. SBAR AND REPORT GIVEN TO BARN BOSS RN, ALL QUESTIONS ANSWERED. SAFETY MEASURES IN PLACE, BED LOCKED AND IN LOWEST POSITION, SIDE RAILS UPX2, CALL LIGHT WITHIN REACH, BED ALARM ARMED. PT ENDORSED IN STABLE CONDITION FOR OTIS
--- NOTE | 2021-12-20 19:20 | NUR ---
RECEIVED PATIENT OBTUNDED OPEN EYES TO STIMULI, ON MECHANICAL VENTILATION SETTINGS TOLERATED WELL, RESPIRATORY EVEN AND UNLABORED,NO S/S OF DISTRESS NOTED. NOTED WITH TEMP 98.1 F, TELE MONITOR READS SINUS RHYTHM 80'S, PATIENT HAVE XIOMARA PICC LINE, DRESSING INTACT IN PLACED,PATENT AND FLUSHED WITH GTUBE IN PLACED, VERIFIED PLACEMENT BY AUSCULTATION, WITH RESIDUAL OF 10 ML UPON ASPIRATION, WITH ONGOING NEPHRO @ 45 ML/HR, WITH RECTAL TUBE IN PLACE. ALL SAFETY PRECAUTION PROVIDED, BED IN LOWEST POSITION, LOCKED. CONTINUE TO MONITOR.
[2021-12-20] MEDS: LATANOPROST EYE DROP 0.005% 2.5 ML BOTTLE OP SCH (22:06)
[2021-12-21] VITALS (53 sets, daily range): BP systolic 87–131; BP diastolic 30–61
[2021-12-21] MEDS: IPRATROPIUM NEB FS 0.5 MG/2.5 ML AMPUL.NEB NEB SCH ×4 (01:00→19:48)
[2021-12-21] MEDS: PHENYTOIN SODIUM IV 100 MG/2ML VIAL IV SCH ×3 (04:23→21:17)
[2021-12-21] MEDS: METOCLOPRAMIDE HCL 10 MG/2 ML VIAL IV SCH ×3 (04:23→21:18)
[2021-12-21] MEDS: MIDODRINE HCL (5MG) 5 MG TABLET PO SCH ×3 (04:32→21:18)
[2021-12-21] MEDS: VANCOMYCIN HCL 125 MG/2.5 ML ORAL.SUSP PO SCH ×4 (05:57→23:13)
[2021-12-21] MEDS: BLOOD SUGAR DIAGNOSTIC 1 EACH STRIP IN SCH ×4 (06:03→23:23)
[2021-12-21] MEDS: INSULIN REGULAR, HUMAN 100 UNIT/ML 3 ML VIAL SQ PRN ×4 (06:03→23:25)
--- NOTE | 2021-12-21 06:53 | NUR ---
PT ON BED STILL ON TRACH/VENT SETTING PER MD FIO2 30% SPO2 98-99% NO SIGN OF RESPIRATORY DISTRESS NOTED TELE MONITOR READS SINUS RHYTHM 90'S GTUBE WITH ONGOING NEPRO @ 45ML/HR TOLERATING WELL, WOUND TREATMENT DONE, STILL WITH FLEXISEAL, WOUND TREATMENT DONE NO SIGNIFICANT CHNAGES ON CONDITION NOTED,BED ON LOWEST POSITION AND LOCKED SIDE RAILS UP X2 CALL LIGHT WITHIN REACH WILL CONT TO MONITOR
[2021-12-21] MEDS: PANTOPRAZOLE 40 MG/PACK PACK GT SCH (07:35)
[2021-12-21] MEDS: PROSOURCE / PROSTAT (PYXIS) 30 ML UDC GT SCH ×2 (08:16→17:04)
[2021-12-21] MEDS: THERAHONEY GEL 1.5 OZ TUBE TP SCH (08:17)
[2021-12-21] MEDS: HYDROCORTISONE SOD SUCCINATE 100 MG/2 ML VIAL IV SCH ×2 (08:17→17:05)
[2021-12-21] MEDS: CHLORHEXIDINE GLUCONATE 15 ML UDC MM SCH ×2 (08:17→17:05)
[2021-12-21] MEDS: DORZOLAMIDE OPTH 2% 10 ML BOTTLE OP SCH ×2 (08:17→17:05)
[2021-12-21] MEDS: MEROPENEM 500 MG in IV NS 0.9% 50 ML IV SCH (08:17)
[2021-12-21] MEDS: PHENOBARBITAL 30 MG TABLET GT SCH ×2 (08:17→21:17)
[2021-12-21] MEDS: NYSTATIN (PYXIS) 500,000 UNIT/5 ML ORAL.SUSP PO SCH ×3 (08:17→17:05)
[2021-12-21] MEDS: DAKINS HALF STRENGTH (0.25%) 480 ML BOTTLE TOP SCH (08:17)
[2021-12-21] MEDS: NEPRO 1,000 ML BOTTLE GT SCH (09:01)
--- NOTE | 2021-12-21 10:23 | NUR ---
PEEP OF +[address] LARA. Addendum: 12/21/21 at 1023 by EVERT BENTLEY RT Amended: Links added.
--- NOTE | 2021-12-21 14:10 | NUR ---
MD COMMUNICATION RN INFORMED DR BEACH OF PT'S BP. GAVE ORDERS, FLORINEF 0.1 MG TIMES ONE NOW. HOLD TRANSFER. RN ACKNOWLEDGED AND WILL EXECUTE ORDERS DIRECTED.
[2021-12-21] MEDS ORDERED: FLUDROCORTISONE 0.1 MG TABLET PO ONE (14:30)
[2021-12-21] MEDS ORDERED: EPOETIN ALFA-EPBX 10,000 UNIT/ML VIAL IV ONE (15:00)
[2021-12-21 15:13] LABS: BASOPHILS # (AUTO) 0.1 K/uL (0.0-0.2); BASOPHILS % (AUTO) 0.4 % (0.0-2.0); EOSINOPHILS % (AUTO) 0.3 % (0.0-6.0); HEMATOCRIT 22 % (33-45); LYMPHOCYTES % (AUTO) 4.8 % (20.0-44.0); MEAN CORPUSCULAR HGB CONC 30 g/dl (31.0-36.0); MEAN CORPUSCULAR VOLUME 104 fL (82-100); MONOCYTES # (AUTO) 1.3 K/uL (0.1-1.30); NEUTROPHILS # (AUTO) 18.7 K/uL (1.8-8.9); NEUTROPHILS % (AUTO) 88.5 % (43.0-81.0); PLATELET COUNT (AUTO) 280 K/uL (150-450); RED BLOOD CELL COUNT(AUTO) 2.17 MIL/uL (4.0-5.2); WHITE BLOOD COUNT (AUTO) 21.2 K/uL (4.3-11.0)
--- NOTE | 2021-12-21 15:30 | NUR ---
NURSES NOTES NO HD TODAY, PHARMACY INFORMED (THEY WERE IN THE UNIT). RN WILL NOT GIVE RETACRIT
[2021-12-21 15:38] LABS: HEMOGLOBIN 6.6 g/dL (11.5-14.8)
--- NOTE | 2021-12-21 15:40 | NUR ---
CRITICAL SHAPER OPERATOR INFORMED MD OF CRITICAL LAB VALUES: HBG IS 6.6 AND HCT IS 22. MD GAVE ORDERS, INFUSE 1 UNIT OF [facility]. RN ACKNOWLEDGED AND WILL ENTER ORDERS DIRECTED.
[2021-12-21 16:17] LABS: BAND % (MANUAL) 1 % (0.0-5.0); LYMPHOCYTES % (MANUAL) 3 % (16-48); MONOCYTES % (MANUAL) 4 % (0-11.0); NEUTROPHILS % (MANUAL) 92 (42-76)
[2021-12-21] MEDS: COLISTIMETHATE SODIUM 150 MG in IV NS 0.9% 50 ML IV SCH (17:06)
[2021-12-21] MEDS: NS 0.9% IV SCH (19:20)
[2021-12-21] MEDS: DAPTOMYCIN IV SCH (19:20)
--- NOTE | 2021-12-21 19:20 | NUR ---
RN NOTES PT FOUND SEMI FOWLERS DISPLAYING NO S/S OF DISTRESS, FLACC = 0 AND BILATERAL RISE AND FALL OF THE CHEST OBSERVED. 60+ ML RESIDUAL FOUND VIA PEG ASPIRATION. TRACHEOSTOMY DRESSING IS CLEAN AND DRY. L UA PICC IS PATIENT AND INTACT. R UPPER CHEST PERMACATH DRESSING IS CLEAN AND DRY. FLEXISEAL IS INTACT, BAG BELOW PATIENT DRAINING BY GRAVITY. SBAR AND REPORT GIVEN TO BINGO FLOATER RN, ALL QUESTIONS ANSWERED. SAFETY MEASURES IN PLACE, BED LOCKED AND IN LOWEST POSITION, SIDE RAILS UPX2, CALL LIGHT WITHIN REACH, BED ALARM ARMED. PT ENDORSED IN STABLE CONDITION FOR OTIS
--- NOTE | 2021-12-21 19:50 | NUR ---
RN NOTE RECEIVED PATIENT IN BED, NON-VERBAL, EYES CLOSED, NON-AROUSABLE. BREATHING EVEN AND UNLABORED. ON TRACH, VENT SETTINGS AC: 14, FIO2 30%, VT 500, PEEP 5. TOLERATING WELL. OXYGEN SATURATION OF 98 PERCENT. HOB ELEVATED 35 DEGREES. NO DISTRESS NOTED. SKIN WARM AND DRY. NOTED WITH LEFT UPPER ARM PICC LINE, PATENT, AND RIGHT UPPER CHEST PERMACATH, INTACT, NO BLEEDING NOTED. NOTED WITH G-TUBE IN PLACE. RESIDUAL OF ABOUT 180 CC. FLEXI-SEAL PRESENT. DRAINING BY GRAVITY. NO VISIBLE BLOOD NOTED IN COLLECTION BAG. ASSISTED WITH TURNING AND REPOSITIONING. DAUGHTER AT BEDSIDE. BED LOW, IN LOCKED POSITION, WILL CONTINUE TO MONITOR.
[2021-12-21] MEDS: LATANOPROST EYE DROP 0.005% 2.5 ML BOTTLE OP SCH (21:47)
--- NOTE | 2021-12-21 22:40 | NUR ---
RN NOTE TRANSFUSED 1 UNIT [facility] PER MD ORDER. NO ADVERSE REACTIONS NOTED. VITAL SIGNS DOCUMENTED. TRANSFUSION COMPLETED. WILL CONTINUE TO MONITOR FOR ADVERSE REACTIONS.
[2021-12-21] MEDS: IV NS 0.9% 250 ML IV PRN (23:00)
[2021-12-22] VITALS (18 sets, daily range): BP systolic 88–118; BP diastolic 40–66
[2021-12-22] MEDS: IPRATROPIUM NEB FS 0.5 MG/2.5 ML AMPUL.NEB NEB SCH ×4 (01:20→19:20)
[2021-12-22 04:34] LABS: CREATINE KINASE, TOTAL 7 U/L (26-192)
[2021-12-22 04:37] LABS: ALANINE AMINOTRANSFERASE 53 U/L (12-78); ALBUMIN 1.6 g/dL (3.4-5.0); ALKALINE PHOSPHATASE 285 U/L (46-116); ASPARTATE AMINOTRANSFERASE 75 U/L (15-37); BILIRUBIN,TOTAL 1.2 mg/dL (0.2-1.0); CALCIUM, SERUM 7.9 mg/dL (8.5-10.1); CARBON DIOXIDE 23 mmol/L (21-32); CHLORIDE 103 mmol/L (98-107); CREATININE 1.6 mg/dL (0.6-1.3); GLUCOSE 79 mg/dL (74-106); POTASSIUM 2.9 mmol/L (3.5-5.1); SODIUM SERUM 140 mmol/L (136-145); TOTAL PROTEIN, SERUM 5.3 g/dL (6.4-8.2); UREA NITROGEN, BLOOD 71 mg/dL (7-18)
[2021-12-22] MEDS: MIDODRINE HCL (5MG) 5 MG TABLET PO SCH ×3 (04:51→20:30)
[2021-12-22] MEDS: PHENYTOIN SODIUM IV 100 MG/2ML VIAL IV SCH ×3 (04:51→20:31)
[2021-12-22] MEDS: METOCLOPRAMIDE HCL 10 MG/2 ML VIAL IV SCH ×3 (04:52→20:31)
[2021-12-22] MEDS: BLOOD SUGAR DIAGNOSTIC 1 EACH STRIP IN SCH ×4 (05:23→23:52)
[2021-12-22] MEDS: VANCOMYCIN HCL 125 MG/2.5 ML ORAL.SUSP PO SCH ×4 (05:37→23:53)
[2021-12-22 06:30] LABS: BASOPHILS % (AUTO) 0.2 % (0.0-2.0); EOSINOPHILS % (AUTO) 0.4 % (0.0-6.0); HEMATOCRIT 27 % (33-45); HEMOGLOBIN 8.1 g/dL (11.5-14.8); LYMPHOCYTES # (AUTO) 1.8 K/uL (0.8-4.8); LYMPHOCYTES % (AUTO) 9.1 % (20.0-44.0); MEAN CORPUSCULAR HGB CONC 30 g/dl (31.0-36.0); MEAN CORPUSCULAR VOLUME 98 fL (82-100); MONOCYTES # (AUTO) 1.2 K/uL (0.1-1.30); MONOCYTES % (AUTO) 6.2 % (2.0-12.0); NEUTROPHILS # (AUTO) 16.6 K/uL (1.8-8.9); NEUTROPHILS % (AUTO) 84.1 % (43.0-81.0); PLATELET COUNT (AUTO) 274 K/uL (150-450); RED BLOOD CELL COUNT(AUTO) 2.73 MIL/uL (4.0-5.2); WHITE BLOOD COUNT (AUTO) 19.8 K/uL (4.3-11.0)
--- NOTE | 2021-12-22 07:56 | NUR ---
RN OPENING NOTE PT OBSERVED IN BED WITH HOB SEMI FOWLERS. PT IS ON MECHANICAL VENT WITH ALL PRESCRIBED SETTINGS TOLERATING WELL WITH NO SIGNS OF DISTRESS OR LABORED BREATHING O2SAT 100%. PT IS NON VERBAL. GTUBE IN PLACE WITH POSITIVE PLACEMENT INFUSING WITH NEPR0 @ 45ML/HR. PT IS ANURIC AND IS SCHEDULED FOR HD TODAY; FLEXISEAL IS IN PLACE. IV ACCESS L UA PICC AND R SUBCLAVIAN PERMACATH FOR HD. BED IS LOCKED IN LOWEST POSITION AND ALL HOSPITAL SAFETY PRECAUTIONS ARE IN PLACE. WILL CONTINUE TO MONITOR THIS SHIFT.
[2021-12-22] MEDS: PANTOPRAZOLE 40 MG/PACK PACK GT SCH (08:21)
[2021-12-22] MEDS: PHENOBARBITAL 30 MG TABLET GT SCH ×2 (09:44→20:30)
[2021-12-22] MEDS: PROSOURCE / PROSTAT (PYXIS) 30 ML UDC GT SCH ×2 (09:46→17:32)
[2021-12-22] MEDS: CHLORHEXIDINE GLUCONATE 15 ML UDC MM SCH ×2 (09:47→17:32)
[2021-12-22] MEDS: HYDROCORTISONE SOD SUCCINATE 100 MG/2 ML VIAL IV SCH ×2 (09:47→17:31)
[2021-12-22] MEDS: DORZOLAMIDE OPTH 2% 10 ML BOTTLE OP SCH ×2 (09:47→17:32)
[2021-12-22] MEDS: DAKINS HALF STRENGTH (0.25%) 480 ML BOTTLE TOP SCH (09:48)
[2021-12-22] MEDS: NYSTATIN (PYXIS) 500,000 UNIT/5 ML ORAL.SUSP PO SCH ×3 (09:48→17:31)
[2021-12-22] MEDS: THERAHONEY GEL 1.5 OZ TUBE TP SCH (09:48)
[2021-12-22] MEDS: ALBUMIN 25% 25 GM in PREMIX 1 EA IV PRN (10:09)
[2021-12-22] MEDS: POTASSIUM CHLORIDE 20 MEQ POWDER PACKET GT SCH ×2 (10:20→10:21)
--- NOTE | 2021-12-22 12:00 | NUR ---
RN NOTE PT BS 81. PER SLIDING SCALE, NO COVERAGE NEEDED AT THIS TIME.
[2021-12-22] MEDS: MEROPENEM 500 MG in IV NS 0.9% 50 ML IV SCH (12:52)
[2021-12-22] MEDS ORDERED: POTASSIUM CL. PREMIX PERIPHER. 50 ML IV SCH (13:00)
[2021-12-22] MEDS: EPOETIN ALFA-EPBX 4,000 UNIT/ML VIAL IV PRN (13:48)
[2021-12-22] MEDS: INSULIN REGULAR, HUMAN 100 UNIT/ML 3 ML VIAL SQ PRN ×3 (15:21→23:58)
--- NOTE | 2021-12-22 16:05 | NUR ---
RN NOTE PT IS STABLE AT THIS TIME AND TRANSFERRED TO [facility] ROOM 112. REPORT GIVEN AT BEDSIDE TO NIMA PAREDES. ALL MEDICATIONS AND CHART TRANSFERRED WITH PT.
--- NOTE | 2021-12-22 16:24 | NUR ---
RN NOTE RECEIVED PT FROM ICU. PATIENT IS STABLE AT TIME OF RECEIVING PATIENT. PT IS ON MECHANICAL VENT WITH ALL PRESCRIBED SETTINGS TOLERATING WELL WITH NO SIGNS OF DISTRESS OR LABORED BREATHING O2SAT 100%. PT IS NON VERBAL. GTUBE IN PLACE WITH POSITIVE PLACEMENT INFUSING WITH NEPR0 @ 45ML/HR. FLEXISEAL IS IN PLACE. IV ACCESS L UA PICC AND R SUBCLAVIAN PERMACATH FOR HD. BED IS LOCKED IN LOWEST POSITION AND ALL HOSPITAL SAFETY PRECAUTIONS ARE IN PLACE. WILL CONTINUE TO MONITOR THIS SHIFT.
[2021-12-22] MEDS: COLISTIMETHATE SODIUM 150 MG in IV NS 0.9% 50 ML IV SCH (18:16)
--- NOTE | 2021-12-22 18:47 | NUR ---
RN CLOSING NOTE PATIENT REMAINED STABLE THROUGHOUT SHIFT.PT IS ON MECHANICAL VENT WITH ALL PRESCRIBED SETTINGS TOLERATING WELL WITH NO SIGNS OF DISTRESS OR LABORED BREATHING O2SAT 100%. PT IS NON VERBAL. GTUBE IN PLACE WITH POSITIVE PLACEMENT INFUSING WITH NEPR0 @ 45ML/HR. FLEXISEAL IS IN PLACE. IV ACCESS L UA PICC AND R SUBCLAVIAN PERMACATH FOR HD. BOTH INTACT AND PATENT. PT HAS FLEXI SEAL IN PLACE INTACT AND PATENT WITH 50ML OF SOFT BROWN STOOL. ALL MEDS ADM PER MD ORDER. ALL NEEDS MET. FAMILY IS AT BEDSIDE. BED IS LOCKED IN LOWEST POSITION AND ALL HOSPITAL SAFETY PRECAUTIONS ARE IN PLACE. WILL ENDORSE TO CASINO ACCOUNTANT RN.
--- NOTE | 2021-12-22 19:30 | NUR ---
RN NOTE RECEIVED PATIENT IN BED RESTING OBTUNDED ON MECHANICAL VENT ON G-TUBE FEEDING NEPRO 45CC/HR G-TUBE IN PLACE NO RESIDUAL NOTED,RECTAL TUBE IN PLACE,IV SITE IS ON LEFT UPPER ARM PICC LINE AND RIGHT UPPER CHEST PERM CATH FOR HD INTACT PATENT,SAFETY MEASURE IMPLEMENT HEAD OF THE BED ELEVATED,BED IN LOW POSITION AND LOCKED,CONTINUE TO MONITOR.
[2021-12-22] MEDS: LATANOPROST EYE DROP 0.005% 2.5 ML BOTTLE OP SCH (21:38)
[2021-12-23] VITALS: BP 112/54
[2021-12-23] MEDS: IPRATROPIUM NEB FS 0.5 MG/2.5 ML AMPUL.NEB NEB SCH ×4 (01:18→19:27)
[2021-12-23] MEDS: NEPRO 1,000 ML BOTTLE GT SCH ×2 (01:28→10:07)
[2021-12-23 04:00] VITALS: BP 112/32
[2021-12-23] MEDS: METOCLOPRAMIDE HCL 10 MG/2 ML VIAL IV SCH ×3 (04:59→21:16)
[2021-12-23] MEDS: PHENYTOIN SODIUM IV 100 MG/2ML VIAL IV SCH ×3 (04:59→21:12)
[2021-12-23] MEDS: MIDODRINE HCL (5MG) 5 MG TABLET PO SCH ×3 (05:21→21:17)
[2021-12-23] MEDS: VANCOMYCIN HCL 125 MG/2.5 ML ORAL.SUSP PO SCH ×4 (06:20→23:53)
[2021-12-23] MEDS: BLOOD SUGAR DIAGNOSTIC 1 EACH STRIP IN SCH ×4 (06:20→23:54)
--- NOTE | 2021-12-23 06:54 | NUR ---
RN NOTE PATIENT REMAINS OBTUNDED ON MECHANICAL VENT ON G-TUBE NEPRO 65CC/HR TOLERATED WELL NO RESIDUAL NOTED,RECTAL TUBE IN PLACE ALL DUE MEDS GIVEN MD ORDERED KEPT CLEAN AND DRY ALL THE TIME,REPOSITIONED EVERY 2 HOURS,DAUGHTER CALLED 2 TIMES,UPDATES GIVEN TO HER,HEAD OF THE BED ELEVATED ALL THE TIME,BED IN LOW POSITION AND LOCKED,ENDORSE NEXT COMING SHIFT FOR CONTINUATION OF CARE.
--- NOTE | 2021-12-23 07:30 | NUR ---
SQL PROGRAMMER NOTE RECEIVED PATIENT IN BED WITH CLOSED EYES. OBTUNDED .ON MECHANICAL VENT. PATIENT ON CHILD NEUROLOGIST READING SR. PATIENT IS ON G-TUBE FEEDING OF NEPRO 45CC/HR. G-TUBE IN PLACE .NO RESIDUAL NOTED,RECTAL TUBE IN PLACE,IV SITE IS ON LEFT UPPER ARM PICC LINE AND RIGHT UPPER CHEST PERM CATH FOR HD INTACT PATENT. SAFETY MEASURE IN PLACE. KEPT HEAD OF THE BED ELEVATED. BED LOCKED IN THE LOWEST POSITION . TABLE AND CALL LIGHT IN REACH. WILL CONTINUE TO MONITOR.
[2021-12-23 07:31] LABS: CALCIUM, SERUM 8.5 mg/dL (8.5-10.1); CREATININE 1.3 mg/dL (0.6-1.3); POTASSIUM 3.7 mmol/L (3.5-5.1)
[2021-12-23] MEDS: PANTOPRAZOLE 40 MG/PACK PACK GT SCH (07:31)
[2021-12-23 08:00] VITALS: BP 99/48
[2021-12-23] MEDS: MEROPENEM 500 MG in IV NS 0.9% 50 ML IV SCH (08:42)
[2021-12-23] MEDS: NYSTATIN (PYXIS) 500,000 UNIT/5 ML ORAL.SUSP PO SCH ×3 (08:55→16:26)
[2021-12-23] MEDS: HYDROCORTISONE SOD SUCCINATE 100 MG/2 ML VIAL IV SCH ×2 (08:55→16:26)
[2021-12-23] MEDS: PROSOURCE / PROSTAT (PYXIS) 30 ML UDC GT SCH ×2 (08:56→16:26)
[2021-12-23] MEDS: DORZOLAMIDE OPTH 2% 10 ML BOTTLE OP SCH ×2 (08:56→16:27)
[2021-12-23] MEDS: PHENOBARBITAL 30 MG TABLET GT SCH ×2 (08:56→21:11)
[2021-12-23] MEDS: DAKINS HALF STRENGTH (0.25%) 480 ML BOTTLE TOP SCH (08:58)
[2021-12-23] MEDS: THERAHONEY GEL 1.5 OZ TUBE TP SCH (08:59)
[2021-12-23] MEDS: CHLORHEXIDINE GLUCONATE 15 ML UDC MM SCH ×2 (09:02→16:26)
[2021-12-23 12:00] VITALS: BP 101/50
--- NOTE | 2021-12-23 13:25 | NUR ---
RN NOTES ELENA CALLED AND CONFIRMED PATIENT WILL BE PICKED UP AT 1240 PM TOMORROW BY [facility] WITH PHONE NUMBER [phone]
[2021-12-23 16:00] VITALS: BP 91/45
[2021-12-23] MEDS: INSULIN REGULAR, HUMAN 100 UNIT/ML 3 ML VIAL SQ PRN (17:16)
[2021-12-23] MEDS: COLISTIMETHATE SODIUM 150 MG in IV NS 0.9% 50 ML IV SCH (17:53)
--- NOTE | 2021-12-23 18:43 | NUR ---
SPRAY MIXER CLOSING NOTE PATIENT IN BED WITH CLOSED EYES. OBTUNDED .ON MECHANICAL VENT. PATIENT ON SENIOR CONTROLS ENGINEER READING SR. PATIENT IS ON G-TUBE FEEDING OF NEPRO 45CC/HR. G-TUBE IN PLACE .NO RESIDUAL NOTED,RECTAL TUBE IN PLACE,IV SITE IS ON LEFT UPPER ARM PICC LINE AND RIGHT UPPER CHEST PERM CATH FOR HD INTACT PATENT.ALL DUE MEDS AND TREATMENTS GIVEN ORDERED. SAFETY MEASURE IN PLACE. KEPT HEAD OF THE BED ELEVATED. BED LOCKED IN THE LOWEST POSITION . TABLE AND CALL LIGHT IN REACH. WILL ENDORSE FOR OTIS.
[2021-12-23] MEDS: NS 0.9% IV SCH (18:49)
[2021-12-23] MEDS: DAPTOMYCIN IV SCH (18:49)
--- NOTE | 2021-12-23 19:28 | NUR ---
PT RCVD TRACH[facility] WITH PORTEX [facility] WITH THE SETTINGS OF AC 14, VT 500, FIO2 30% PEEP 5. TRACH IS PATENT AND SECURED. PT IS OBTUNDED. Q6 BREATHING TX GIVEN PER MD'S ORDER. NO ADVERSE REACTION NOTED. SUCTIONED SMALL AMOUNT OF WHITE THIN SECRETIONS. VENT IS PLUGGED INTO RED WALL OUTLET AND VENT ALARMS ARE ON AND AUDIBLE. NO RESPIRATORY DISTRESS NOTED AT THIS TIME. WILL CONTINUE TO MONITOR T/O SHIFT.
--- NOTE | 2021-12-23 19:35 | NUR ---
RN NOTES RECEIVED PATIENT SLEEPING BUT AROUSABLE TO PAINFUL STIMULI, OBTUNDED, DAUGHTER AT BEDSIDE, SR ON TLE MONITOR HR-73, WITH FLEXI SEAL IN PLACE, G-TUBE FEEDING RUINING AT 45 ML/HR, NOT IN DISTRESS, NO PAIN NOTED, SIDERALUPX2, WILL CONTINUE TO MONITOR
[2021-12-23 20:00] VITALS: BP 114/50
[2021-12-23] MEDS: LATANOPROST EYE DROP 0.005% 2.5 ML BOTTLE OP SCH (21:18)
[2021-12-24] VITALS: BP 98/50
[2021-12-24] MEDS: INSULIN REGULAR, HUMAN 100 UNIT/ML 3 ML VIAL SQ PRN ×2 (00:04→17:23)
[2021-12-24] MEDS: IPRATROPIUM NEB FS 0.5 MG/2.5 ML AMPUL.NEB NEB SCH ×4 (01:31→20:09)
[2021-12-24 04:00] VITALS: BP 101/45
[2021-12-24] MEDS: PHENYTOIN SODIUM IV 100 MG/2ML VIAL IV SCH ×3 (04:09→22:08)
[2021-12-24] MEDS: MIDODRINE HCL (5MG) 5 MG TABLET PO SCH ×3 (04:09→22:11)
[2021-12-24] MEDS: METOCLOPRAMIDE HCL 10 MG/2 ML VIAL IV SCH ×3 (04:10→22:09)
[2021-12-24] MEDS: BLOOD SUGAR DIAGNOSTIC 1 EACH STRIP IN SCH ×3 (06:02→17:18)
[2021-12-24] MEDS: VANCOMYCIN HCL 125 MG/2.5 ML ORAL.SUSP PO SCH ×3 (06:02→17:18)
--- NOTE | 2021-12-24 06:03 | NUR ---
RN NOTES RECEIVED PATIENT SLEEPING BUT AROUSABLE TO PAINFUL STIMULI, OBTUNDED, DAUGHTER AT BEDSIDE, SR ON TLE MONITOR HR-73, WITH FLEXI SEAL IN PLACE, G-TUBE FEEDING RUINING AT 45 ML/HR, NOT IN DISTRESS, NO PAIN NOTED, SIDERALUPCinda, WILL CONTINUE TO MONITOR Addendum: 12/24/21 at 0623 by JOCELYN SAENZ RN RIGHT TIME AND DATE 193412/23/21
--- NOTE | 2021-12-24 06:23 | NUR ---
RN NOTES PT STILL OBTUNDED, MORNING CARE RENDERED, NOT IN DISTRESS, NO PAIN NOTED, PT. NEEDS ATTENDED
--- NOTE | 2021-12-24 07:33 | NUR ---
ENVIRONMENTAL STUDIES FACULTY MEMBER OPENING NOTE RECEIVED PATIENT IN BED, OBTUNDED. ON MECHANICAL VENT PORTEX #7, SETTINGS ARE AC 14, TV 500, 30% FIO2, AND PEEP OF 5. PATIENT ON PARTY PLAN SALES UNIT SALES LEADER READING SR. PATIENT IS ON G-TUBE FEEDING OF NEPRO 45CC/HR. G-TUBE IN PLACE. RECTAL TUBE IN PLACE, IV SITE IS ON LEFT UPPER ARM PICC LINE AND RIGHT UPPER CHEST PERM CATH FOR HD INTACT. SAFETY MEASURES IN PLACE. KEPT HEAD OF THE BED ELEVATED. BED LOCKED IN THE LOWEST POSITION. TABLE AND CALL LIGHT WITHIN REACH. WILL CONTINUE TO MONITOR.
[2021-12-24 08:00] VITALS: BP 106/33
[2021-12-24] MEDS: NYSTATIN (PYXIS) 500,000 UNIT/5 ML ORAL.SUSP PO SCH ×3 (09:26→16:36)
[2021-12-24] MEDS: PHENOBARBITAL 30 MG TABLET GT SCH ×2 (09:27→22:08)
[2021-12-24] MEDS: CHLORHEXIDINE GLUCONATE 15 ML UDC MM SCH ×2 (09:27→16:36)
[2021-12-24] MEDS: HYDROCORTISONE SOD SUCCINATE 100 MG/2 ML VIAL IV SCH ×2 (09:27→13:06)
[2021-12-24] MEDS: PROSOURCE / PROSTAT (PYXIS) 30 ML UDC GT SCH ×2 (09:27→16:25)
[2021-12-24] MEDS: DORZOLAMIDE OPTH 2% 10 ML BOTTLE OP SCH ×2 (09:28→16:37)
[2021-12-24] MEDS: DAKINS HALF STRENGTH (0.25%) 480 ML BOTTLE TOP SCH (09:29)
[2021-12-24] MEDS: THERAHONEY GEL 1.5 OZ TUBE TP SCH (09:30)
[2021-12-24] MEDS: PANTOPRAZOLE 40 MG/PACK PACK GT SCH (09:30)
[2021-12-24] MEDS: MEROPENEM 500 MG in IV NS 0.9% 50 ML IV SCH (10:19)
[2021-12-24 12:00] VITALS: BP 92/33
[2021-12-24 16:00] VITALS: BP 98/32
[2021-12-24] MEDS: NEPRO 1,000 ML BOTTLE GT SCH (16:24)
[2021-12-24] MEDS: COLISTIMETHATE SODIUM 150 MG in IV NS 0.9% 50 ML IV SCH (17:23)
--- NOTE | 2021-12-24 18:34 | NUR ---
FULFILLMENT COORDINATOR CLOSING NOTE PATIENT REMAINED STABLE THROUGHOUT THE SHIFT. NO SIGNIFICANT CHANGES ARE NOTED. VITAL SIGNS RECORDED. AFEBRILE AT THE END OF SHIFT. ALL MEDICATIONS ADMINISTERED ORDERED. PATIENT HAS NO S/S OF ACUTE DISTRESS. BREATHING WAS UNLABORED, AND EXPANDS EQUALLY. WOUND DONE. PATIENT KEPT CLEAN AND DRY. WILL ENDORSE TO UPCOMING SHIFT FOR OTIS.
[2021-12-24 20:00] VITALS: BP 115/57
--- NOTE | 2021-12-24 20:00 | NUR ---
SOCK BOARDER OPENING NOTE PATIENT IN BED WITH EYES CLOSED, OBTUNDED, DAUGHTER AT BEDSIDE. PATIENT ON MECHANICAL VENT [place] #7, SETTINGS ARE AC 14, TV 500, 30% FIO2, AND PEEP OF 5, NO S/S OF DISTRESS OR SOB NOTED, BREATHING EVEN AND UNLABORED. PATIENT ON MIRROR INSTALLER READING SR, HR: 76. PATIENT IS ON G-TUBE FEEDING OF NEPRO @ 45 ML/HR. RECTAL TUBE IN PLACE AND DRAINING WELL. IV ACCESS ON LEFT UPPER ARM PICC LINE INTACT AND SALINE LOCKED, RIGHT UPPER CHEST PERM CATH FOR HD INTACT. SAFETY MEASURES IN PLACE: HOB ELEVATED, BED LOCKED IN THE LOWEST POSITION, SIDE RAILS UP X 3, BED ALARM ON. WILL CONTINUE TO MONITOR.
[2021-12-24] MEDS: LATANOPROST EYE DROP 0.005% 2.5 ML BOTTLE OP SCH (22:11)
[2021-12-25] VITALS: BP 124/53
[2021-12-25] MEDS: VANCOMYCIN HCL 125 MG/2.5 ML ORAL.SUSP PO SCH ×5 (00:10→23:41)
[2021-12-25] MEDS: BLOOD SUGAR DIAGNOSTIC 1 EACH STRIP IN SCH ×5 (00:30→23:41)
[2021-12-25] MEDS: IPRATROPIUM NEB FS 0.5 MG/2.5 ML AMPUL.NEB NEB SCH ×4 (01:04→20:30)
[2021-12-25 04:00] VITALS: BP 110/47
[2021-12-25] MEDS: PHENYTOIN SODIUM IV 100 MG/2ML VIAL IV SCH ×3 (05:03→21:19)
[2021-12-25] MEDS: MIDODRINE HCL (5MG) 5 MG TABLET PO SCH ×3 (05:03→23:27)
[2021-12-25] MEDS: METOCLOPRAMIDE HCL 10 MG/2 ML VIAL IV SCH ×3 (05:03→21:27)
--- NOTE | 2021-12-25 07:25 | NUR ---
H[employer]CHOOL SOCIAL STUDIES TEACHER OPENING NOTES RECEIVED PATIENT IN BED WITH EYES CLOSED, OBTUNDED. PATIENT REMAINS ON MECHANICAL VENT [place] #7, SETTINGS ARE AC 14, TV 500, [id number]% , AND PEEP OF 5, NO S/S OF DISTRESS OR SOB NOTED, BREATHING EVEN AND UNLABORED. PATIENT ON MACHINE PECAN GATHERER READING SR, HR @82. IV ACCESS ON LEFT UPPER ARM PICC LINE INTACT AND SALINE LOCKED, RIGHT UPPER CHEST PERM CATH FOR HD INTACT, DRESSING CLEAN AND DRY. WITH G-TUBE, INTACT AND PATENT, G-TUBE FEEDING OF NEPRO @ 45 ML/HR, NO RESIDUAL NOTED. RECTAL TUBE IN PLACE, WITH LIQUID BROWNISH STOOL. SAFETY MEASURES IN PLACE: HOB ELEVATED, BED LOCKED AND IN LOWEST POSITION, SIDE RAILS UP X 3, BED ALARM ON. WILL CONTINUE TO MONITOR PATIENT.
--- NOTE | 2021-12-25 07:26 | NUR ---
WOUND CARE CONSULT: PT SEEN FOR LEFT THIGH EXCORIATION WITH SOME DISCOLORATION OVER SCARRING. NO DRAINAGE, FLUCTUANCE OR ERYTHEMA NOTED. RECOMMENDATIONS MADE FOR SKIN PROTECTION. DISCUSSED WITH NURSING STAFF AND SURGICAL TEAM CURRENTLY ON CASE. IN AGREEMENT WITH PLAN OF CARE. Addendum: 12/25/21 at 0727 by BYRON LAZO [id number] Amended: Links added.
--- NOTE | 2021-12-25 07:30 | NUR ---
ENROBER TENDER OPENING NOTES RECEIVED PATIENT IN BED WITH EYES CLOSED, OBTUNDED. REMAINS ON MECHANICAL VENT PORTEX #7, WITH THE CURRENT SETTINGS OF: AC 14, TV 500, FIO2 30%, PEEP 5, NO S/S OF DISTRESS OR SOB NOTED, BREATHING EVEN AND UNLABORED. PATIENT ON MEMBERSHIP SALES ADVISOR READING SR, HR @82. WITH G-TUBE INTACT, ON G-TUBE FEEDING OF NEPRO @ 45 ML/HR, NO RESIDUAL NOTED. RECTAL TUBE IN PLACE WITH LIQUID BROWNISH STOOL. IV ACCESS ON LEFT UPPER ARM PICC LINE INTACT AND SALINE LOCKED. RIGHT UPPER CHEST PERMACATH FOR HD INTACT, WITH DRESSING CLEAN AND DRY. SAFETY MEASURES IN PLACE. HOB ELEVATED, BED IN LOCKED LOWEST POSITION, SIDE RAILS UP X 3, BED ALARM ON. WILL CONTINUE TO MONITOR.
--- NOTE | 2021-12-25 07:30 | NUR ---
PPA TEACHER CLOSING NOTE PATIENT IN BED WITH EYES CLOSED, OBTUNDED. PATIENT ON MECHANICAL VENT PORTEX #7, SETTINGS ARE AC 14, TV 500, 30% FIO2, AND PEEP OF 5, NO S/S OF DISTRESS OR SOB NOTED, BREATHING EVEN AND UNLABORED. PATIENT ON MACHINE BUILDER READING SR, HR: 86. PATIENT IS ON G-TUBE FEEDING OF NEPRO @ 45 ML/HR. RECTAL TUBE CHANGED DUE TO LEAKING. IV ACCESS ON LEFT UPPER ARM PICC LINE INTACT AND SALINE LOCKED, RIGHT UPPER CHEST PERM CATH FOR HD INTACT. MEDICATIONS GIVEN ORDERED, PT NEEDS MET THROUGHOUT SHIFT. PATIENT TURNED Q2H AND WOUND CARE COMPLETED. SAFETY MEASURES IN PLACE: HOB ELEVATED, BED LOCKED IN THE LOWEST POSITION, SIDE RAILS UP X 3, BED ALARM ON. ENDORSED TO DAY SHIFT NURSE FOR CONTINUITY OF CARE
[2021-12-25 08:00] VITALS: BP 108/47
[2021-12-25] MEDS: CHLORHEXIDINE GLUCONATE 15 ML UDC MM SCH ×2 (08:54→16:46)
[2021-12-25] MEDS: PROSOURCE / PROSTAT (PYXIS) 30 ML UDC GT SCH ×2 (08:54→16:47)
[2021-12-25] MEDS: HYDROCORTISONE SOD SUCCINATE 100 MG/2 ML VIAL IV SCH (08:54)
[2021-12-25] MEDS: PHENOBARBITAL 30 MG TABLET GT SCH ×2 (08:54→21:17)
[2021-12-25] MEDS: PANTOPRAZOLE 40 MG/PACK PACK GT SCH (08:54)
[2021-12-25] MEDS: MEROPENEM 500 MG in IV NS 0.9% 50 ML IV SCH (08:57)
[2021-12-25] MEDS: THERAHONEY GEL 1.5 OZ TUBE TP SCH (08:59)
[2021-12-25] MEDS: DORZOLAMIDE OPTH 2% 10 ML BOTTLE OP SCH ×2 (09:00→16:47)
[2021-12-25] MEDS: DAKINS HALF STRENGTH (0.25%) 480 ML BOTTLE TOP SCH (10:56)
[2021-12-25] MEDS: INSULIN REGULAR, HUMAN 100 UNIT/ML 3 ML VIAL SQ PRN ×2 (11:36→17:17)
[2021-12-25 12:00] VITALS: BP 100/37
[2021-12-25 13:25] LABS: CALCIUM, SERUM 8.5 mg/dL (8.5-10.1); CARBON DIOXIDE 23 mmol/L (21-32); CHLORIDE 105 mmol/L (98-107); CREATININE 1.4 mg/dL (0.6-1.3); GLUCOSE 166 mg/dL (74-106); POTASSIUM 3.6 mmol/L (3.5-5.1); SODIUM SERUM 141 mmol/L (136-145); UREA NITROGEN, BLOOD 61 mg/dL (7-18)
[2021-12-25 16:00] VITALS: BP 103/33
[2021-12-25] MEDS: COLISTIMETHATE SODIUM 150 MG in IV NS 0.9% 50 ML IV SCH (17:03)
[2021-12-25] MEDS: NS 0.9% IV SCH (18:55)
[2021-12-25] MEDS: DAPTOMYCIN IV SCH (18:55)
--- NOTE | 2021-12-25 18:55 | NUR ---
RN NOTES PATIENT'S DAUGHTER ASKED TO DO ANOTHER BLADDER SCAN FOR THE PATIENT, NOTED WITH MAXIMUM OF 400 ML URINE. RAJIV WALDEN MADE AWARE WITH ORDER TO INSERT INDWELING F/C. DAUGHTER MADE AWRE REGARDING MD'S ORDER AND AGREED. F/C 16 FR INSERTED WITH CLUDY URINE OUTPUT OF 50 CC. WILL CONTINUE TO MONITOR.
--- NOTE | 2021-12-25 19:00 | NUR ---
DISTRICT EXTENSION SERVICE AGENT CLOSING NOTES PATIENT RESTING IN BED WITH EYES CLOSED, OBTUNDED. REMAINS ON TRACH/MECHANICAL VENT, WITH THE CURRENT SETTINGS OF: AC 14, TV 500, FIO2 30%, PEEP 5, NO S/S OF DISTRESS OR SOB NOTED, BREATHING EVEN AND UNLABORED. PATIENT ON SCHEDULE SUPERVISOR READING SR, HR @73. WITH G-TUBE INTACT, ON G-TUBE FEEDING OF NEPRO @ 45 ML/HR, NO RESIDUAL NOTED. RECTAL TUBE IN PLACE WITH LIQUID BROWNISH STOOL. F/C INTACT. IV ACCESS ON LEFT UPPER ARM PICC LINE INTACT AND SALINE LOCKED. RIGHT UPPER CHEST PERMACATH FOR HD INTACT, WITH DRESSING CLEAN AND DRY. ALL DUE MEDS GIVEN. WOUND TREATMENT DONE. TURNED AND REPOSITIONED [id number]. SAFETY MEASURESMAINTAINED. HOB ELEVATED, BED IN LOCKED LOWEST POSITION, SIDE RAILS UP X 3, BED ALARM ON. WILL ENDORSE TO NEXT SHIFT FOR OTIS.
[2021-12-25 20:00] VITALS: BP 109/30
--- NOTE | 2021-12-25 20:37 | NUR ---
ALFREDO/RN AT INITIAL, PATIENT WAS IN BED EYES CLOSED, APPEAR COMFORTABLE, NO DISTRESS NOTED, ON MECHANICAL VENTILATOR, G TUBE FEEDING INFUSING, NO RESIDUAL NOTE, HOB ELEVATED, NEEDS ATTENDED, WILL MONITOR.
[2021-12-25] MEDS: NEPRO 1,000 ML BOTTLE GT SCH (21:09)
[2021-12-25] MEDS: LATANOPROST EYE DROP 0.005% 2.5 ML BOTTLE OP SCH (21:41)
[2021-12-26] VITALS (28 sets, daily range): BP systolic 83–198; BP diastolic 14–88
[2021-12-26] MEDS: IPRATROPIUM NEB FS 0.5 MG/2.5 ML AMPUL.NEB NEB SCH ×4 (02:26→19:52)
--- NOTE | 2021-12-26 04:21 | NUR ---
ALFREDO/RN BP RUNNING LOW, AT 0400 BP 90/28, NOTIFIED PITER PASTOR DNP, NO ORDER WAS RECEIVED. WILL MONITOR PATIENT.
[2021-12-26] MEDS: PHENYTOIN SODIUM IV 100 MG/2ML VIAL IV SCH ×3 (04:32→21:18)
[2021-12-26] MEDS: MIDODRINE HCL (5MG) 5 MG TABLET PO SCH ×3 (04:32→21:19)
[2021-12-26] MEDS: METOCLOPRAMIDE HCL 10 MG/2 ML VIAL IV SCH ×3 (04:35→21:17)
[2021-12-26] MEDS: VANCOMYCIN HCL 125 MG/2.5 ML ORAL.SUSP PO SCH ×4 (06:12→23:17)
[2021-12-26] MEDS: BLOOD SUGAR DIAGNOSTIC 1 EACH STRIP IN SCH ×4 (06:12→23:16)
--- NOTE | 2021-12-26 06:39 | NUR ---
ALFREDO/RN/ PATIENT IN BED EYES CLOSED, COMFORTABLE, NO DISTRESS NOTED, HOB ELEVATED, G TUBE FEEDING INFUSING, NO RESIDUAL NOTED, MORNING CARE WAS DONE AT AROUND 05:00, GOOD SKIN CARE DONE, WOUND DRESSING PER ORDER WAS DONE WOUND DRESSINGS WERE DIRTY AND, REPOSITIONED TO COMFORT, ALL NEEDS ATTENDED AT THIS TIME, WILL CONTINUE TO MONITOR.
--- NOTE | 2021-12-26 07:30 | NUR ---
RN OPENING NOTE PATIENT RECEIVED IN BED, OBTUNDED. PATIENT ON MECHANICAL VENTILATOR SATURATING 98% ON BEDSIDE MONITOR. RECTAL TUBE IN PLACE, PROCTOR CATH IN PLACE. G TUBE IN PLACE RUNNING NEPRO AT 45 CC/HR. LEFT UA PICC LINE AND RIGHT CW PERMACATH IN PLACE. NO SIGNS OF ACUTE DISTRESS NOTED AT THIS TIME. BED LOCKED AND IN LOWEST POSITION, 2 SIDE RAILS UP, CALL LIGHT WITHIN REACH. WILL CONTINUE TO MONITOR.
[2021-12-26] MEDS: CHLORHEXIDINE GLUCONATE 15 ML UDC MM SCH ×2 (08:06→17:18)
[2021-12-26] MEDS: PANTOPRAZOLE 40 MG/PACK PACK GT SCH (08:06)
[2021-12-26] MEDS: HYDROCORTISONE SOD SUCCINATE 100 MG/2 ML VIAL IV SCH (08:06)
[2021-12-26] MEDS: PROSOURCE / PROSTAT (PYXIS) 30 ML UDC GT SCH ×2 (08:06→17:18)
[2021-12-26] MEDS: PHENOBARBITAL 30 MG TABLET GT SCH ×2 (08:06→21:18)
[2021-12-26] MEDS: DAKINS HALF STRENGTH (0.25%) 480 ML BOTTLE TOP SCH (08:07)
[2021-12-26] MEDS: THERAHONEY GEL 1.5 OZ TUBE TP SCH (08:07)
[2021-12-26] MEDS: DORZOLAMIDE OPTH 2% 10 ML BOTTLE OP SCH ×2 (08:07→17:19)
[2021-12-26] MEDS: MEROPENEM 500 MG in IV NS 0.9% 50 ML IV SCH (08:27)
[2021-12-26] MEDS: ALBUMIN 25% 25 GM in PREMIX 1 EA IV PRN (09:41)
--- NOTE | 2021-12-26 11:22 | NUR ---
RN NOTE HD STOPPED, BLOOD PRESSURE GRADUALLY LOWERED TO 88/33, NO FLUID REMOVED. BLOOD PRESSURE 102/36 AT THIS TIME. MIDODRINE DUE AT 1300 FOR BP SUPPORT. WILL CONTINUE TO MONITOR.
[2021-12-26 12:02] LABS: CALCIUM, SERUM 8.2 mg/dL (8.5-10.1); CARBON DIOXIDE 19 mmol/L (21-32); CHLORIDE 105 mmol/L (98-107); CREATININE 1.5 mg/dL (0.6-1.3); GLUCOSE 101 mg/dL (74-106); POTASSIUM 3.7 mmol/L (3.5-5.1); SODIUM SERUM 141 mmol/L (136-145); UREA NITROGEN, BLOOD 70 mg/dL (7-18)
[2021-12-26] MEDS: INSULIN REGULAR, HUMAN 100 UNIT/ML 3 ML VIAL SQ PRN ×2 (12:37→17:56)
[2021-12-26] MEDS ORDERED: NOREPINEPHRINE 8 MG in IV NS 0.9% 242 ML IV PRN (16:30)
--- NOTE | 2021-12-26 16:50 | NUR ---
RN NOTES PATIENT TRANSFERRED TO THE ICU AT THIS TIME ON DX OF HYPOTENSION AFTER DIALYSIS, BP- 96/37, P-76, O2-100 % ROOM AIR. NO ACUTE RESPIRATORY DISTRESS. PATIENT ON BEDSIDE MONITOR SR, ON PROCTOR, AND FLEXALEXLE.IV ACCESS ON XIOMARA PICC LINE INTACT. ASSIST TURN AND REPOSTION Q 2 HR, WILL FOLLOW UP. Addendum: 12/26/21 at 1927 by DEBORAH BASSETT RN upper notes noted patient room air wrong enter, patient trachea/vent dependent..
--- NOTE | 2021-12-26 16:57 | NUR ---
RN NOTE PATIENT UNSTABLE. BLOOD PRESSURE 85/14, 89/33. RILEY WALDEN MADE AWARE. MIDODRINE AND ALBUMIN PREVIOUSLY GIVEN FOR BP SUPPORT. ORDERED TO TRANSFER TO ICU FOR LEVOPHED DRIP. PATIENT TRANSFERRED TO ROOM 252 AND REPORT GIVEN TO DEBORAH HERRING.
--- NOTE | 2021-12-26 17:00 | NUR ---
rn notes Levophed not started because bp 102/41, p-71. will monitoring.
[2021-12-26] MEDS: COLISTIMETHATE SODIUM 150 MG in IV NS 0.9% 50 ML IV SCH (17:19)
[2021-12-26] MEDS: NEPRO 1,000 ML BOTTLE GT SCH (17:46)
[2021-12-26] MEDS: IV NS 0.9% 250 ML IV PRN (18:00)
--- NOTE | 2021-12-26 18:30 | NUR ---
RN NOTES BS-202MG/DL, COVERAGE GIVEN, PM MEDICATION ADMINISTERED, PM CARE DONE STARTED NEPRO @45CC/HR INTACT, ASSIST TURN AND REPOSTION Q 2 HR, PROCTOR HAS NO OUTPUT, FLEXESEAL INTACT. ENDORSED ONCOMING NURSE OTIS
[2021-12-26] MEDS: NOREPINEPHRINE 8 MG in IV NS 0.9% 242 ML IV PRN ×2 (19:40→21:30)
[2021-12-26] MEDS: LATANOPROST EYE DROP 0.005% 2.5 ML BOTTLE OP SCH (21:19)
[2021-12-27] VITALS (86 sets, daily range): BP systolic 80–140; BP diastolic 38–66
[2021-12-27] MEDS: IPRATROPIUM NEB FS 0.5 MG/2.5 ML AMPUL.NEB NEB SCH ×4 (01:43→19:11)
[2021-12-27] MEDS: VANCOMYCIN HCL 125 MG/2.5 ML ORAL.SUSP PO SCH ×4 (05:27→23:18)
[2021-12-27] MEDS: BLOOD SUGAR DIAGNOSTIC 1 EACH STRIP IN SCH ×4 (05:28→23:18)
[2021-12-27] MEDS: METOCLOPRAMIDE HCL 10 MG/2 ML VIAL IV SCH ×3 (05:28→21:13)
[2021-12-27] MEDS: MIDODRINE HCL (5MG) 5 MG TABLET PO SCH ×3 (05:28→21:13)
[2021-12-27] MEDS: PHENYTOIN SODIUM IV 100 MG/2ML VIAL IV SCH ×3 (05:28→21:13)
--- NOTE | 2021-12-27 07:30 | NUR ---
RN NOTES PT FOUND SEMI FOWLERS DISPLAYING NO S/S OF DISTRESS, FLACC = 0 AND BILATERAL RISE AND FALL OF THE CHEST OBSERVED. HOB PLACED AT 35 DEGREES. TRACH DRESSING IS CLEAN AND DRY. L UA PICC IS PATIENT AND INTACT. 50 ML RESIDUAL MEASURED. FLEXISEAL IS BELOW PATIENT DRAINING BY GRAVITY. FC BELOW PATIENT DRAINING BY GRAVITY. VSS, RN WILL MONITOR AND TREAT THROUGHOUT SHIFT. SAFETY MEASURE IN PLACE, BED LOCKED AND IN LOWEST POSITION, SIDE RAILS UPX2, CALL LIGHT WITHIN REACH, BED ALARM ARMED.
[2021-12-27] MEDS: PANTOPRAZOLE 40 MG/PACK PACK GT SCH (07:39)
[2021-12-27] MEDS: HYDROCORTISONE SOD SUCCINATE 100 MG/2 ML VIAL IV SCH (08:33)
[2021-12-27] MEDS: CHLORHEXIDINE GLUCONATE 15 ML UDC MM SCH ×2 (08:33→17:12)
[2021-12-27] MEDS: PHENOBARBITAL 30 MG TABLET GT SCH ×2 (08:33→21:13)
[2021-12-27] MEDS: MEROPENEM 500 MG in IV NS 0.9% 50 ML IV SCH (08:33)
[2021-12-27] MEDS: PROSOURCE / PROSTAT (PYXIS) 30 ML UDC GT SCH ×2 (08:34→17:12)
[2021-12-27] MEDS: THERAHONEY GEL 1.5 OZ TUBE TP SCH (08:35)
[2021-12-27] MEDS: DORZOLAMIDE OPTH 2% 10 ML BOTTLE OP SCH ×2 (08:35→17:12)
[2021-12-27] MEDS: DAKINS HALF STRENGTH (0.25%) 480 ML BOTTLE TOP SCH (08:35)
[2021-12-27] MEDS: ACETAMINOPHEN 650 MG/20.3 ML UDC GT PRN (08:41)
[2021-12-27] MEDS: INSULIN REGULAR, HUMAN 100 UNIT/ML 3 ML VIAL SQ PRN ×3 (12:06→23:19)
[2021-12-27] MEDS: COLISTIMETHATE SODIUM 150 MG in IV NS 0.9% 50 ML IV SCH (17:12)
[2021-12-27] MEDS: NEPRO 1,000 ML BOTTLE GT SCH (17:12)
[2021-12-27] MEDS: IV NS 0.9% 250 ML IV PRN (18:14)
[2021-12-27] MEDS: NS 0.9% IV SCH (18:35)
[2021-12-27] MEDS: DAPTOMYCIN IV SCH (18:35)
--- NOTE | 2021-12-27 19:00 | NUR ---
RAW CHEESE WORKER NOTE RECEIVED PATIENT IN BED RESTING OBTUNDED ON MECHANICAL VENT O2:100% IV SITE IS ON LEFT UPPER ARM PICC LINE INTACT PATENT AND RIGHT CHEST WALL PERM-CATH FOR HD,RECTAL TUBE IN PLACE AND PROCTOR CATHETER IN PLACE,PT HAS MULTIPLIES WOUNDS ON SACRUM AND LEFT/BIGHT HIPS,SAFETY MEASURE IMPLEMENT,BED IN LOW POSITION AND LOCKED HEAD OF THE BED ELEVATED,ON G-TUBE FEEDING NEPRO @45CC/HR CHECKED PLACEMENT IN PLACE NO OUTPUT NOTED CONTINUE TO MONITOR.
--- NOTE | 2021-12-27 19:05 | NUR ---
RN NOTES PT FOUND SEMI FOWLERS DISPLAYING NO S/S OF DISTRESS, FLACC = 0 AND BILATERAL RISE AND FALL OF THE CHEST OBSERVED. HOB PLACED AT 35 DEGREES. TRACH DRESSING IS CLEAN AND DRY. L UA PICC IS PATIENT AND INTACT. 20 ML RESIDUAL MEASURED. FLEXISEAL IS BELOW PATIENT DRAINING BY GRAVITY. FC BELOW PATIENT DRAINING BY GRAVITY. SBAR AND REPORT GIVEN TO VALET CASHIER RN, ALL QUESTIONS ANSWERED. SAFETY MEASURE IN PLACE, BED LOCKED AND IN LOWEST POSITION, SIDE RAILS UPX2, CALL LIGHT WITHIN REACH, BED ALARM ARMED. PT ENDORSED IN STABLE CONDITION FOR OTIS.
[2021-12-27] MEDS: NOREPINEPHRINE 8 MG in IV NS 0.9% 242 ML IV PRN (19:13)
[2021-12-27] MEDS: LATANOPROST EYE DROP 0.005% 2.5 ML BOTTLE OP SCH (21:40)
[2021-12-28] VITALS (49 sets, daily range): BP systolic 72–133; BP diastolic 37–60
[2021-12-28] MEDS: IPRATROPIUM NEB FS 0.5 MG/2.5 ML AMPUL.NEB NEB SCH ×4 (01:43→19:49)
[2021-12-28] MEDS: METOCLOPRAMIDE HCL 10 MG/2 ML VIAL IV SCH ×3 (04:13→21:58)
[2021-12-28] MEDS: PHENYTOIN SODIUM IV 100 MG/2ML VIAL IV SCH ×3 (04:14→21:59)
[2021-12-28] MEDS: MIDODRINE HCL (5MG) 5 MG TABLET PO SCH ×3 (04:14→21:57)
[2021-12-28] MEDS: ACETAMINOPHEN 650 MG/20.3 ML UDC GT PRN ×2 (04:54→12:16)
[2021-12-28 05:09] LABS: BASOPHILS # (AUTO) 0.2 K/uL (0.0-0.2); BASOPHILS % (AUTO) 1.4 % (0.0-2.0); HEMATOCRIT 23 % (33-45); LYMPHOCYTES # (AUTO) 1.8 K/uL (0.8-4.8); LYMPHOCYTES % (AUTO) 10.3 % (20.0-44.0); MEAN CORPUSCULAR HGB CONC 31 g/dl (31.0-36.0); MEAN CORPUSCULAR VOLUME 98 fL (82-100); MONOCYTES # (AUTO) 1.2 K/uL (0.1-1.30); MONOCYTES % (AUTO) 6.8 % (2.0-12.0); NEUTROPHILS # (AUTO) 13.7 K/uL (1.8-8.9); NEUTROPHILS % (AUTO) 79.5 % (43.0-81.0); PLATELET COUNT (AUTO) 240 K/uL (150-450); RED BLOOD CELL COUNT(AUTO) 2.33 MIL/uL (4.0-5.2); WHITE BLOOD COUNT (AUTO) 17.2 K/uL (4.3-11.0)
[2021-12-28] MEDS: VANCOMYCIN HCL 125 MG/2.5 ML ORAL.SUSP PO SCH ×4 (05:41→23:46)
[2021-12-28] MEDS: BLOOD SUGAR DIAGNOSTIC 1 EACH STRIP IN SCH ×4 (05:46→23:46)
--- NOTE | 2021-12-28 07:16 | NUR ---
RN NOTE PATIENT REMAINS ON OBTUNDED ON MECHANICAL VENT NO SOB NOT ACUTE DISTRESS NOTED ALL DUE MEDS GIVEN MD ORDERED KEPT CLEAN AND DRY ALL THE TIME,REPOSITIONED EVERY 2 HOURS WOUND TREATMENT DONE,HEAD OF THE BED ELEVATED ALL NEEDS MET ENDORSE NEXT COMING SHIFT FOR CONTINUATION OF CARE.
--- NOTE | 2021-12-28 07:35 | NUR ---
RN NOTE RECIVED LAB HGB 7.0 PROVIDER MADE AWARE NO NEW ORDERS.
--- NOTE | 2021-12-28 07:43 | NUR ---
RN OPENING NOTE RECEIVED PATIENT IN BED RESTING OBTUNDED ON MECHANICAL VENT O2:100% IV SITE IS ON LEFT UPPER ARM PICC LINE INTACT PATENT AND RIGHT CHEST WALL PERM-CATH FOR HD,RECTAL TUBE IN PLACE AND PROCTOR CATHETER IN PLACE. G TUBE RUNNING NEPRO 45ML/HR. NOREPI RUNNING 0.01MCG/KG/MIN. PT HAS MULTIPLIES WOUNDS ON SACRUM AND LEFT/BIGHT HIPS,SAFETY MEASURE IMPLEMENT,BED IN LOW POSITION AND LOCKED HEAD OF THE BED ELEVATED.
[2021-12-28] MEDS: PANTOPRAZOLE 40 MG/PACK PACK GT SCH (08:05)
[2021-12-28] MEDS: CHLORHEXIDINE GLUCONATE 15 ML UDC MM SCH ×2 (08:06→17:37)
[2021-12-28] MEDS: HYDROCORTISONE SOD SUCCINATE 100 MG/2 ML VIAL IV SCH ×3 (08:06→21:57)
[2021-12-28] MEDS: MEROPENEM 500 MG in IV NS 0.9% 50 ML IV SCH (08:06)
[2021-12-28] MEDS: PHENOBARBITAL 30 MG TABLET GT SCH ×2 (08:07→21:56)
[2021-12-28] MEDS: PROSOURCE / PROSTAT (PYXIS) 30 ML UDC GT SCH ×2 (08:07→17:45)
[2021-12-28] MEDS: DAKINS HALF STRENGTH (0.25%) 480 ML BOTTLE TOP SCH (08:08)
[2021-12-28] MEDS: DORZOLAMIDE OPTH 2% 10 ML BOTTLE OP SCH ×2 (08:09→17:57)
[2021-12-28] MEDS: THERAHONEY GEL 1.5 OZ TUBE TP SCH (08:09)
[2021-12-28] MEDS: INSULIN REGULAR, HUMAN 100 UNIT/ML 3 ML VIAL SQ PRN ×3 (12:19→23:55)
[2021-12-28] MEDS: COLISTIMETHATE SODIUM 150 MG in IV NS 0.9% 50 ML IV SCH (17:54)
[2021-12-28] MEDS: NEPRO 1,000 ML BOTTLE GT SCH (18:52)
--- NOTE | 2021-12-28 19:02 | NUR ---
RN CLOSING NOTE PATIENT IN BED RESTING OBTUNDED ON MECHANICAL VENT O2:100% IV SITE IS ON LEFT UPPER ARM PICC LINE INTACT PATENT AND RIGHT CHEST WALL PERM-CATH FOR HD,RECTAL TUBE IN PLACE AND PROCTOR CATHETER IN PLACE. G TUBE RUNNING NEPRO 45ML/HR. . PT HAS MULTIPLIES WOUNDS ON SACRUM AND LEFT/BIGHT HIPS. WOUND CARE DONE ALL SCHEDULED MEDICATIONS GIVEN. SAFETY MEASURE IMPLEMENT,BED IN LOW POSITION AND LOCKED HEAD OF THE BED ELEVATED. WILL ENDORSE TO NIGHT NURSE FOR OTIS.
--- NOTE | 2021-12-28 19:45 | NUR ---
RN NOTE PATIENT OBTUNDED IN BED WITH HEAD OF BED ELEVATED. ON MECH VENT, TOLERATING SETTINGS WELL. O2 SAT 99%. PROCTOR CATH AND FLEXI SEAL IN PLACE, DRAINING VIA GRAVITY. ON G-TUBE, NEPRO @ 45 CC/HR, NOTED WITH 10CC RESIDUAL. HEAD OF BED KEPT ELEVATED. XIOMARA PICC LINE PATENT AND INTACT. RCW PERMACATH NOTED, DRESSING DRY AND INTACT. BED LOCKED AND IN LOWEST POSITION. CALL LIGHT WITHIN REACH. ALL NEEDS ANTICIPATED.
[2021-12-28] MEDS: LATANOPROST EYE DROP 0.005% 2.5 ML BOTTLE OP SCH (22:00)
[2021-12-28] MEDS: IV NS 0.9% 250 ML IV PRN (22:55)
[2021-12-29] VITALS (50 sets, daily range): BP systolic 81–152; BP diastolic 29–62
[2021-12-29] MEDS: IPRATROPIUM NEB FS 0.5 MG/2.5 ML AMPUL.NEB NEB SCH ×4 (01:12→19:24)
[2021-12-29] MEDS ORDERED: MIDODRINE HCL (5MG) 5 MG TABLET ONE (04:07)
[2021-12-29] MEDS: MIDODRINE HCL (5MG) 5 MG TABLET PO SCH ×3 (04:09→20:57)
[2021-12-29] MEDS: HYDROCORTISONE SOD SUCCINATE 100 MG/2 ML VIAL IV SCH ×3 (04:19→20:57)
[2021-12-29] MEDS: METOCLOPRAMIDE HCL 10 MG/2 ML VIAL IV SCH ×3 (04:21→20:57)
[2021-12-29] MEDS: PHENYTOIN SODIUM IV 100 MG/2ML VIAL IV SCH ×3 (04:23→20:57)
[2021-12-29] MEDS: VANCOMYCIN HCL 125 MG/2.5 ML ORAL.SUSP PO SCH ×4 (05:02→23:17)
[2021-12-29] MEDS: BLOOD SUGAR DIAGNOSTIC 1 EACH STRIP IN SCH ×4 (05:02→23:28)
[2021-12-29] MEDS: INSULIN REGULAR, HUMAN 100 UNIT/ML 3 ML VIAL SQ PRN ×4 (05:04→23:30)
[2021-12-29 05:24] LABS: BASOPHILS # (AUTO) 0.1 K/uL (0.0-0.2); BASOPHILS % (AUTO) 0.3 % (0.0-2.0); EOSINOPHILS % (AUTO) 0.1 % (0.0-6.0); HEMATOCRIT 23 % (33-45); HEMOGLOBIN 7.1 g/dL (11.5-14.8); MEAN CORPUSCULAR HGB CONC 31 g/dl (31.0-36.0); MEAN CORPUSCULAR VOLUME 98 fL (82-100); MONOCYTES # (AUTO) 0.9 K/uL (0.1-1.30); MONOCYTES % (AUTO) 4.6 % (2.0-12.0); NEUTROPHILS # (AUTO) 17.6 K/uL (1.8-8.9); PLATELET COUNT (AUTO) 210 K/uL (150-450); RED BLOOD CELL COUNT(AUTO) 2.34 MIL/uL (4.0-5.2); WHITE BLOOD COUNT (AUTO) 19.5 K/uL (4.3-11.0)
--- NOTE | 2021-12-29 06:38 | NUR ---
RN NOTE PATIENT OBTUNDED, TOLERATING MECH VENT SETTINGS WELL. O2 SAT 100%. NO SIGNIFICANT CHANGES DURING THIS SHIFT. ALL DUE MEDS GIVEN ORDERED. TURNED AND REPOSITIONED Q2H AND PRN. PROCTOR CATH OUTPUT 5CC, FLEXI SEAL NOTED WITH 350CC BROWN LIQUID STOOL. ONGOING GTUBE FEEDING NEPRO @ 45CC/HR. BED LOCKED AND IN LOWEST POSITION. CALL LIGHT WITHIN REACH. WILL ENDORSE TO AM SHIFT.
--- NOTE | 2021-12-29 07:42 | NUR ---
RN OPENING NOTES RECEIVED PATIENT IN BED RESTING OBTUNDED ON MECHANICAL VENT O2:100% IV SITE IS ON LEFT UPPER ARM PICC LINE INTACT PATENT AND RIGHT CHEST WALL PERM-CATH FOR HD,RECTAL TUBE IN PLACE AND PROCTOR CATHETER IN PLACE. G TUBE RUNNING NEPRO 45ML/HR. STRICT ISOLATION PRECAUTIONS PLACED PT HAS MULTIPLIES WOUNDS ON SACRUM AND LEFT/BIGHT HIPS,SAFETY MEASURE IMPLEMENT,BED IN LOW POSITION AND LOCKED HEAD OF THE BED ELEVATED.
[2021-12-29] MEDS: PHENOBARBITAL 30 MG TABLET GT SCH ×2 (08:43→20:57)
[2021-12-29] MEDS: MEROPENEM 500 MG in IV NS 0.9% 50 ML IV SCH (08:43)
[2021-12-29] MEDS: PANTOPRAZOLE 40 MG/PACK PACK GT SCH (08:50)
[2021-12-29] MEDS: CHLORHEXIDINE GLUCONATE 15 ML UDC MM SCH ×2 (08:50→17:27)
[2021-12-29] MEDS: DORZOLAMIDE OPTH 2% 10 ML BOTTLE OP SCH ×2 (08:50→17:28)
[2021-12-29] MEDS: THERAHONEY GEL 1.5 OZ TUBE TP SCH (08:51)
[2021-12-29] MEDS: DAKINS HALF STRENGTH (0.25%) 480 ML BOTTLE TOP SCH (08:51)
[2021-12-29] MEDS: PROSOURCE / PROSTAT (PYXIS) 30 ML UDC GT SCH ×2 (08:53→17:28)
[2021-12-29] MEDS: ALBUMIN 25% 25 GM in PREMIX 1 EA IV PRN (09:26)
--- NOTE | 2021-12-29 11:40 | NUR ---
RN NOTE DIALYSIS NURSE BENNETT COMPLETED HD. PER MD ORDERS SHE DID NOT REMOVE ANY FLUIDS. PT STABLE. WILL CONTINUE TO MONITOR
[2021-12-29] MEDS: COLISTIMETHATE SODIUM 150 MG in IV NS 0.9% 50 ML IV SCH (17:28)
[2021-12-29] MEDS: DAPTOMYCIN IV SCH (18:49)
[2021-12-29] MEDS: NS 0.9% IV SCH (18:49)
--- NOTE | 2021-12-29 18:57 | NUR ---
RN CLOSING NOTE PATIENT IN BED RESTING OBTUNDED ON MECHANICAL VENT O2:100% IV SITE IS ON LEFT UPPER ARM PICC LINE INTACT PATENT AND RIGHT CHEST WALL PERM-CATH FOR HD,RECTAL TUBE IN PLACE 400CC OUTPUT AND PROCTOR CATHETER IN PLACE WITH 0 OUTPUT. G TUBE RUNNING NEPRO 45ML/HR. . PT HAS MULTIPLIES WOUNDS ON SACRUM AND LEFT/BIGHT HIPS. WOUND CARE DONE ALL SCHEDULED MEDICATIONS GIVEN. SAFETY MEASURE IMPLEMENT,BED IN LOW POSITION AND LOCKED HEAD OF THE BED ELEVATED. WILL ENDORSE TO NIGHT NURSE FOR OTIS.
--- NOTE | 2021-12-29 19:10 | NUR ---
RECEIVED PATIENT OBTUNDED OPEN EYES TO STIMULI, ON MECHANICAL VENTILATION SETTINGS TOLERATED WELL, RESPIRATORY EVEN AND UNLABORED,NO S/S OF DISTRESS NOTED. NOTED WITH TEMP 98.3 F, TELE MONITOR READS SINUS RHYTHM 80'S, PATIENT HAVE XIOMARA PICC LINE, DRESSING INTACT IN PLACED,PATENT AND FLUSHED WITH GTUBE IN PLACED, VERIFIED PLACEMENT BY AUSCULTATION, WITH RESIDUAL OF 10 ML UPON ASPIRATION, WITH ONGOING NEPHRO @ 45 ML/HR, WITH RECTAL TUBE IN PLACE. WITH PROCTOR CATHETER IN PLACE NO URINE OUT PUT ALL SAFETY PRECAUTION PROVIDED, BED IN LOWEST POSITION, LOCKED. CONTINUE TO MONITOR.
[2021-12-29] MEDS: EPOETIN ALFA-EPBX 4,000 UNIT/ML VIAL IV PRN (19:23)
[2021-12-29] MEDS: LATANOPROST EYE DROP 0.005% 2.5 ML BOTTLE OP SCH (21:31)
[2021-12-29] MEDS: NEPRO 1,000 ML BOTTLE GT SCH (22:25)
[2021-12-30] VITALS (43 sets, daily range): BP systolic 91–135; BP diastolic 37–68
[2021-12-30] MEDS: IPRATROPIUM NEB FS 0.5 MG/2.5 ML AMPUL.NEB NEB SCH ×4 (00:58→20:28)
[2021-12-30 04:25] LABS: BASOPHILS # (AUTO) 0.1 K/uL (0.0-0.2); BASOPHILS % (AUTO) 0.3 % (0.0-2.0); EOSINOPHILS % (AUTO) 0.2 % (0.0-6.0); HEMATOCRIT 22 % (33-45); LYMPHOCYTES # (AUTO) 0.8 K/uL (0.8-4.8); LYMPHOCYTES % (AUTO) 4.3 % (20.0-44.0); MEAN CORPUSCULAR HGB CONC 31 g/dl (31.0-36.0); MEAN CORPUSCULAR VOLUME 100 fL (82-100); MONOCYTES # (AUTO) 0.9 K/uL (0.1-1.30); MONOCYTES % (AUTO) 4.4 % (2.0-12.0); NEUTROPHILS # (AUTO) 17.6 K/uL (1.8-8.9); NEUTROPHILS % (AUTO) 90.8 % (43.0-81.0); PLATELET COUNT (AUTO) 188 K/uL (150-450); RED BLOOD CELL COUNT(AUTO) 2.18 MIL/uL (4.0-5.2); WHITE BLOOD COUNT (AUTO) 19.4 K/uL (4.3-11.0)
[2021-12-30 04:31] LABS: CALCIUM, SERUM 8.5 mg/dL (8.5-10.1); CARBON DIOXIDE 23 mmol/L (21-32); CHLORIDE 106 mmol/L (98-107); CREATININE 1.5 mg/dL (0.6-1.3); GLUCOSE 176 mg/dL (74-106); MAGNESIUM 2.2 mg/dL (1.8-2.4); PHOSPHORUS 4.5 mg/dL (2.5-4.9); POTASSIUM 3.2 mmol/L (3.5-5.1); SODIUM SERUM 141 mmol/L (136-145); UREA NITROGEN, BLOOD 69 mg/dL (7-18)
[2021-12-30 04:32] LABS: HEMOGLOBIN 6.6 g/dL (11.5-14.8)
[2021-12-30] MEDS: IV NS 0.9% 250 ML IV PRN (04:37)
[2021-12-30] MEDS ORDERED: MIDODRINE HCL (5MG) 5 MG TABLET ONE (04:55)
[2021-12-30] MEDS: HYDROCORTISONE SOD SUCCINATE 100 MG/2 ML VIAL IV SCH ×3 (04:58→21:52)
[2021-12-30] MEDS: PHENYTOIN SODIUM IV 100 MG/2ML VIAL IV SCH ×3 (04:58→21:55)
[2021-12-30] MEDS: METOCLOPRAMIDE HCL 10 MG/2 ML VIAL IV SCH ×3 (04:58→21:54)
[2021-12-30] MEDS: MIDODRINE HCL (5MG) 5 MG TABLET PO SCH ×3 (04:58→21:57)
--- NOTE | 2021-12-30 05:44 | NUR ---
REPORTED TO HOSPITALIST BELL HOLE DIGGER DR. IQBAL THAT PT HGB IS 6.6 HCT 22 WITH ORDER TO TRANSFUSE 1 UNIT PRBC NOTED AND CARRIED OUT
[2021-12-30] MEDS: BLOOD SUGAR DIAGNOSTIC 1 EACH STRIP IN SCH ×3 (05:53→17:19)
[2021-12-30] MEDS: INSULIN REGULAR, HUMAN 100 UNIT/ML 3 ML VIAL SQ PRN ×3 (05:54→17:24)
[2021-12-30] MEDS: VANCOMYCIN HCL 125 MG/2.5 ML ORAL.SUSP PO SCH ×3 (06:06→17:19)
[2021-12-30] MEDS: PANTOPRAZOLE 40 MG/PACK PACK GT SCH (07:07)
[2021-12-30] MEDS: PHENOBARBITAL 30 MG TABLET GT SCH ×2 (08:34→21:57)
[2021-12-30] MEDS: PROSOURCE / PROSTAT (PYXIS) 30 ML UDC GT SCH ×2 (08:34→16:41)
[2021-12-30] MEDS: MEROPENEM 500 MG in IV NS 0.9% 50 ML IV SCH (08:34)
[2021-12-30] MEDS: CHLORHEXIDINE GLUCONATE 15 ML UDC MM SCH ×2 (08:34→16:40)
[2021-12-30] MEDS: DAKINS HALF STRENGTH (0.25%) 480 ML BOTTLE TOP SCH (08:35)
[2021-12-30] MEDS: THERAHONEY GEL 1.5 OZ TUBE TP SCH (08:35)
[2021-12-30] MEDS: DORZOLAMIDE OPTH 2% 10 ML BOTTLE OP SCH ×2 (08:36→16:40)
--- NOTE | 2021-12-30 09:22 | NUR ---
1PRBC AUDIO/VISUAL MANAGER FROM LAB, V/S CHECKED AND RECORDED, BLOOD TRANSFUSION VERIFICATION DONE WITH OTHER NURSES, WILL CONT TO MONITOR
[2021-12-30] MEDS ORDERED: NOREPINEPHRINE 8 MG in IV NS 0.9% 242 ML IV PRN (10:30)
--- NOTE | 2021-12-30 13:10 | NUR ---
PT COMPLETED BLOOD TRANSFUSION OF 1 PRBC WITH CURRENT V/S TEMP 99.1F 115/50 92 RR 21 SPO2 100% NO SIGN OF TRANSFUSION REACTION NOTED, DAUGHTER AT BEDSIDE, NO SOB NOTED WILL CONT TO MONITOR
[2021-12-30] MEDS: COLISTIMETHATE SODIUM 150 MG in IV NS 0.9% 50 ML IV SCH (17:19)
--- NOTE | 2021-12-30 18:00 | NUR ---
patient received to room 119-1 vitals taken and recorded daughter at bed side left picc line in place with no signs of redness or swelling noted telemetry applied and shows SR 80's patient will continue to assess and evlauate
--- NOTE | 2021-12-30 18:22 | NUR ---
TRANSFER PT TO ROOM 119-1 VIA ACLS PROTOCOL PT ACCOMPANIED BY RT AND 2 RNS, PT STILL OBTUNDED, ON TRACH/VENT SETTING PER MD FIO2 30% SPO2 98% NO SOB NOTED, TELE MONITOR READS SINUS RHYTHM LAST BP FROM ICU 113/53 ALL MEDICATION AND STUFF BRING TO [facility] UNIT, REPORT GIVEN TO MS HILTON RN FOR OTIS
--- NOTE | 2021-12-30 20:00 | NUR ---
RN NOTE RECEIVED PT ON VENT, NOT IN ANY DISTRESS. PT DAUGHTER AT BEDSIDE. PT OBTUNDED. NO SIGNS OF PAIN NOTED. SR ON TELE MONITOR. GT PATENT AND IN PLACE. MINIMAL RESIDUALS NOTED. ON NEPRO AT 45ML/HR. KEPT HOB ELEVATED. PT WITH PICC ON LA. FLUSHES WELL. NO S/SX OF INFECTION. RCW HD CATH INTACT. PROCTOR AND FLEXISEAL IN PLACE. WILL CONTINUE TO MONITOR.
[2021-12-30] MEDS: LATANOPROST EYE DROP 0.005% 2.5 ML BOTTLE OP SCH (22:15)
[2021-12-31] VITALS: BP 121/56
[2021-12-31] MEDS: VANCOMYCIN HCL 125 MG/2.5 ML ORAL.SUSP PO SCH ×4 (00:32→17:39)
[2021-12-31] MEDS: BLOOD SUGAR DIAGNOSTIC 1 EACH STRIP IN SCH ×4 (00:36→17:39)
[2021-12-31] MEDS: INSULIN REGULAR, HUMAN 100 UNIT/ML 3 ML VIAL SQ PRN ×4 (00:37→18:26)
[2021-12-31] MEDS: NEPRO 1,000 ML BOTTLE GT SCH (01:24)
[2021-12-31] MEDS: IPRATROPIUM NEB FS 0.5 MG/2.5 ML AMPUL.NEB NEB SCH ×4 (02:02→20:31)
[2021-12-31 04:00] VITALS: BP 105/53
[2021-12-31] MEDS: HYDROCORTISONE SOD SUCCINATE 100 MG/2 ML VIAL IV SCH ×3 (05:39→21:36)
[2021-12-31] MEDS: METOCLOPRAMIDE HCL 10 MG/2 ML VIAL IV SCH ×3 (05:41→21:36)
[2021-12-31] MEDS: PHENYTOIN SODIUM IV 100 MG/2ML VIAL IV SCH ×3 (05:42→21:37)
[2021-12-31] MEDS: MIDODRINE HCL (5MG) 5 MG TABLET PO SCH ×3 (05:45→21:42)
[2021-12-31 07:18] LABS: CALCIUM, SERUM 8.5 mg/dL (8.5-10.1); CARBON DIOXIDE 20 mmol/L (21-32); CHLORIDE 105 mmol/L (98-107); CREATININE 1.7 mg/dL (0.6-1.3); GLUCOSE 146 mg/dL (74-106); MAGNESIUM 2.5 mg/dL (1.8-2.4); PHOSPHORUS 4.9 mg/dL (2.5-4.9); POTASSIUM 3.6 mmol/L (3.5-5.1); SODIUM SERUM 140 mmol/L (136-145)
--- NOTE | 2021-12-31 07:18 | NUR ---
RN NOTE PT CONTINUE WITH VENT SETTINGS, TOLERATED. NO S/SX OF DISTRESS NOTED. VS STABLE, REMAIN AFEBRILE. TOLERATES GT FEEDING OF NEPRO. NO RESIDUALS WERE NOTED. KEPT HOB ELEVATED. PT ANURIC. PROCTOR CATH REMAIN IN PLACE. FLEXISEAL IN PLACE WITH WATERY STOOL. WOUND TX WERE DONE ORDERED. TURNED AND REPOSITIONED. ENDORSED TO NEXT SHIFT NURSE FOR OTIS.
[2021-12-31 07:22] LABS: BASOPHILS # (AUTO) 0.1 K/uL (0.0-0.2); BASOPHILS % (AUTO) 0.3 % (0.0-2.0); EOSINOPHILS % (AUTO) 0.5 % (0.0-6.0); HEMATOCRIT 31 % (33-45); HEMOGLOBIN 9.6 g/dL (11.5-14.8); LYMPHOCYTES % (AUTO) 9.8 % (20.0-44.0); MEAN CORPUSCULAR HGB CONC 31 g/dl (31.0-36.0); MEAN CORPUSCULAR VOLUME 97 fL (82-100); MONOCYTES # (AUTO) 1.2 K/uL (0.1-1.30); MONOCYTES % (AUTO) 5.8 % (2.0-12.0); NEUTROPHILS # (AUTO) 17.6 K/uL (1.8-8.9); NEUTROPHILS % (AUTO) 83.6 % (43.0-81.0); PLATELET COUNT (AUTO) 182 K/uL (150-450); RED BLOOD CELL COUNT(AUTO) 3.17 MIL/uL (4.0-5.2)
[2021-12-31] MEDS: IV NS 0.9% 250 ML IV PRN (07:23)
[2021-12-31 07:45] LABS: UREA NITROGEN, BLOOD 92 mg/dL (7-18)
[2021-12-31 08:00] VITALS: BP 119/48
[2021-12-31] MEDS: ALBUMIN 25% 25 GM in PREMIX 1 EA IV PRN (08:34)
[2021-12-31] MEDS: PANTOPRAZOLE 40 MG/PACK PACK GT SCH (08:34)
[2021-12-31] MEDS: PHENOBARBITAL 30 MG TABLET GT SCH ×2 (08:34→21:41)
[2021-12-31] MEDS: PROSOURCE / PROSTAT (PYXIS) 30 ML UDC GT SCH ×2 (08:50→17:39)
[2021-12-31] MEDS: DORZOLAMIDE OPTH 2% 10 ML BOTTLE OP SCH ×2 (08:50→17:39)
[2021-12-31] MEDS: CHLORHEXIDINE GLUCONATE 15 ML UDC MM SCH ×2 (08:50→17:39)
[2021-12-31] MEDS: THERAHONEY GEL 1.5 OZ TUBE TP SCH (08:51)
[2021-12-31] MEDS: DAKINS HALF STRENGTH (0.25%) 480 ML BOTTLE TOP SCH (08:51)
[2021-12-31] MEDS ORDERED: ALTEPLASE CATHFLO 2 MG/VIAL XX ONE ×4 (09:00→12:00)
--- NOTE | 2021-12-31 10:00 | NUR ---
RN NOTE PER HD NURSE BENNETT DIALYSIS UNABLE TO BEGIN DUE TO CLOGGED HD PORT. ALTEPLASE GIVEN. WILL REATTEMPTED TOMORROW.
--- NOTE | 2021-12-31 10:34 | NUR ---
Female patient asleep and non responsive. Trached portex 7 cuffed midline and airway patent. Backup trach and ambu bag bedside. Vent plugged into red outlet. Addendum: 12/31/21 at 1036 by WELLINGTON CISNEROS RT Amended: Links added.
[2021-12-31] MEDS: MEROPENEM 500 MG in IV NS 0.9% 50 ML IV SCH (11:03)
[2021-12-31 12:00] VITALS: BP 110/46
[2021-12-31 13:06] LABS: BAND % (MANUAL) 1 % (0.0-5.0); LYMPHOCYTES % (MANUAL) 9 % (16-48); MONOCYTES % (MANUAL) 5 % (0-11.0); NEUTROPHILS % (MANUAL) 83 (42-76); REACTIVE LYMPHOCYTES 2 % (0-0)
[2021-12-31 16:00] VITALS: BP 125/50
[2021-12-31] MEDS: COLISTIMETHATE SODIUM 150 MG in IV NS 0.9% 50 ML IV SCH (17:39)
--- NOTE | 2021-12-31 18:47 | NUR ---
RN CLOSING NOTE PATIENT IN BED RESTING OBTUNDED ON MECHANICAL VENT O2:100% IV SITE IS ON LEFT UPPER ARM PICC LINE INTACT PATENT AND RIGHT CHEST WALL PERM-CATH FOR HD,RECTAL TUBE IN PLACE AND PROCTOR CATHETER IN PLACE WITH 0 OUTPUT. G TUBE RUNNING NEPRO 45ML/HR. . PT HAS MULTIPLIES WOUNDS ON SACRUM AND LEFT/BIGHT HIPS. WOUND CARE DONE ALL SCHEDULED MEDICATIONS GIVEN. SAFETY MEASURE IMPLEMENT,BED IN LOW POSITION AND LOCKED HEAD OF THE BED ELEVATED. WILL ENDORSE TO NIGHT NURSE FOR OTIS.
[2021-12-31] MEDS: NS 0.9% IV SCH (19:23)
[2021-12-31] MEDS: DAPTOMYCIN IV SCH (19:23)
--- NOTE | 2021-12-31 19:30 | NUR ---
SERVICES ACCOUNT MANAGER NOTE RECEIVED PATIENT IN BED, OBTUNDED AND ON MECHANICAL VENT O2:100% IV SITE IS ON LEFT UPPER ARM PICC LINE AND RIGHT CHEST WALL PERM-CATH FOR HD, BOTH INTACT AND PATENT.RECTAL TUBE IN PLACE AND PROCTOR CATHETER IN PLACE WITH 0 OUTPUT. G TUBE RUNNING NEPRO 45ML/HR. PT HAS MULTIPLE WOUNDS ON SACRUM AND LEFT/RIGHT HIPS. ALL SAFETY MEASURES IMPLEMENTED, BED IN LOW POSITION AND KEPT HEAD OF THE BED ELEVATED. WILL CONTINUE TO MONITOR.
[2021-12-31 20:00] VITALS: BP 118/55
[2021-12-31] MEDS: LATANOPROST EYE DROP 0.005% 2.5 ML BOTTLE OP SCH (22:22)
[2022-01-01] VITALS: BP 148/64
[2022-01-01] MEDS: BLOOD SUGAR DIAGNOSTIC 1 EACH STRIP IN SCH ×4 (00:23→17:17)
[2022-01-01] MEDS: VANCOMYCIN HCL 125 MG/2.5 ML ORAL.SUSP PO SCH ×4 (00:25→17:01)
[2022-01-01] MEDS: INSULIN REGULAR, HUMAN 100 UNIT/ML 3 ML VIAL SQ PRN ×2 (00:26→06:13)
[2022-01-01] MEDS: IPRATROPIUM NEB FS 0.5 MG/2.5 ML AMPUL.NEB NEB SCH ×4 (01:37→19:49)
[2022-01-01 04:00] VITALS: BP 140/67
[2022-01-01] MEDS: MIDODRINE HCL (5MG) 5 MG TABLET PO SCH ×3 (05:45→21:39)
[2022-01-01] MEDS: HYDROCORTISONE SOD SUCCINATE 100 MG/2 ML VIAL IV SCH ×3 (05:45→17:01)
[2022-01-01] MEDS: PHENYTOIN SODIUM IV 100 MG/2ML VIAL IV SCH ×3 (05:46→21:40)
[2022-01-01] MEDS: METOCLOPRAMIDE HCL 10 MG/2 ML VIAL IV SCH ×3 (05:46→21:39)
[2022-01-01 06:35] LABS: BASOPHILS % (AUTO) 0.1 % (0.0-2.0); EOSINOPHILS % (AUTO) 0.5 % (0.0-6.0); HEMATOCRIT 29 % (33-45); LYMPHOCYTES # (AUTO) 1.4 K/uL (0.8-4.8); LYMPHOCYTES % (AUTO) 6.8 % (20.0-44.0); MEAN CORPUSCULAR HGB CONC 31 g/dl (31.0-36.0); MEAN CORPUSCULAR VOLUME 98 fL (82-100); MONOCYTES # (AUTO) 0.9 K/uL (0.1-1.30); MONOCYTES % (AUTO) 4.4 % (2.0-12.0); NEUTROPHILS # (AUTO) 18.2 K/uL (1.8-8.9); NEUTROPHILS % (AUTO) 88.2 % (43.0-81.0); PLATELET COUNT (AUTO) 151 K/uL (150-450); RED BLOOD CELL COUNT(AUTO) 2.98 MIL/uL (4.0-5.2); WHITE BLOOD COUNT (AUTO) 20.6 K/uL (4.3-11.0)
--- NOTE | 2022-01-01 06:50 | NUR ---
RN CLOSING NOTES PT REMAINS IN BED SLEEPING. PT IS OBTUNDED, ON MECHANICAL VENT O2:100%. IV IS ON LEFT UPPER ARM PICC LINE, INTACT AND PATENT AND RIGHT CHEST WALL PERM-CATH FOR HD, RECTAL TUBE IN PLACE AND PROCTOR CATHETER IN PLACE DRAINING WELL, WITH YELLOW URINE. G TUBE FEEDING IS NEPRO AT 45ML/HR. . PT HAS WOUNDS ON SACRUM AND LEFT AND RIGHT HIPS. WOUND CARE DONE. KEPT PT CLEAN, DRY AND COMFORTABLE. ALL SCHEDULED MEDICATIONS GIVEN. SAFETY MEASURES IMPLEMENTED ,BED IN LOWEST POSITION AND LOCKED HEAD OF THE BED ELEVATED. WILL ENDORSE TO AM SHIFT NURSE FOR OTIS.
[2022-01-01 07:05] LABS: CALCIUM, SERUM 8.5 mg/dL (8.5-10.1); CARBON DIOXIDE 18 mmol/L (21-32); CHLORIDE 104 mmol/L (98-107); CREATININE 1.8 mg/dL (0.6-1.3); GLUCOSE 149 mg/dL (74-106); MAGNESIUM 2.6 mg/dL (1.8-2.4); PHOSPHORUS 5.2 mg/dL (2.5-4.9); POTASSIUM 3.6 mmol/L (3.5-5.1); SODIUM SERUM 140 mmol/L (136-145)
[2022-01-01 07:15] LABS: UREA NITROGEN, BLOOD 104 mg/dL (7-18)
--- NOTE | 2022-01-01 07:26 | NUR ---
RN OPENING NOTE PATIENT RECEIVED IN BED, OBTUNDED, EYES CLOSED. PATIENT ON MECHANICAL VENTILATOR WITH FIO2 OF 30%. PROCTOR CATHETER IN PLACE, NO OVERNIGHT OUTPUT. G TUBE IN PLACE RUNNING NEPRO AT 45 CC/HR. LEFT UA PICC LINE IN PLACE, REPORTED FROM PINKING SEWING MACHINE OPERATOR TO ONLY HAVE ONE WORKING LUMEN. RIGHT SUBCLAVIAN HD CATH IN PLACE. NO SIGNS OF ACUTE DISTRESS NOTED AT THIS TIME. BED LOCKED AND IN LOWEST POSITION, CALL LIGHT WITHIN REACH, 3 SIDE RAILS UP. WILL CONTINUE TO MONITOR.
[2022-01-01 08:00] VITALS: BP 160/68
[2022-01-01] MEDS: PANTOPRAZOLE 40 MG/PACK PACK GT SCH (08:37)
[2022-01-01] MEDS: PROSOURCE / PROSTAT (PYXIS) 30 ML UDC GT SCH ×2 (08:37→17:17)
[2022-01-01] MEDS: CHLORHEXIDINE GLUCONATE 15 ML UDC MM SCH ×2 (08:37→17:01)
[2022-01-01] MEDS: MEROPENEM 500 MG in IV NS 0.9% 50 ML IV SCH (08:37)
[2022-01-01] MEDS: PHENOBARBITAL 30 MG TABLET GT SCH ×2 (08:37→21:39)
[2022-01-01] MEDS: THERAHONEY GEL 1.5 OZ TUBE TP SCH (08:38)
[2022-01-01] MEDS: DAKINS HALF STRENGTH (0.25%) 480 ML BOTTLE TOP SCH (08:38)
[2022-01-01] MEDS: DORZOLAMIDE OPTH 2% 10 ML BOTTLE OP SCH ×2 (08:38→17:02)
--- NOTE | 2022-01-01 09:04 | NUR ---
RN NOTE MIDLINE PLACED IN RIGHT AC, PATENT AND FLUSHING. WILL CONTINUE TO MONITOR.
[2022-01-01] MEDS ORDERED: ALTEPLASE CATHFLO 2 MG/VIAL XX ONE ×3 (10:00→12:00)
[2022-01-01 12:00] VITALS: BP 136/61
--- NOTE | 2022-01-01 14:18 | NUR ---
RN NOTE ALTEPLASE GIVEN THIS AM BY HD NURSE MARCH.
[2022-01-01 16:00] VITALS: BP 125/56
[2022-01-01] MEDS: COLISTIMETHATE SODIUM 150 MG in IV NS 0.9% 50 ML IV SCH (17:02)
--- NOTE | 2022-01-01 19:30 | NUR ---
RN opening notes Received Pt resting in bed accompanied by Pt's daughter. Pt is obtunded. [facility] with O2 sat is 100%. No SOB. No S/S of distress noted. R subclavian HD cat is in placed. XIOMARA PICC line is intact. RAC midline# 18 is intact. Herring cath is in placed. Flexiseal is in placed. Tele monitor showed SR. Gtube feeding is running nephro @ 45 ml/hr with 0 residual. Safety precautions is maintained. Bed at low position, brakes locked, side rails upX3, hob elevated and call light is within reach. Will continue to monitor.
[2022-01-01 20:00] VITALS: BP 109/52
[2022-01-01] MEDS: LATANOPROST EYE DROP 0.005% 2.5 ML BOTTLE OP SCH (21:57)
[2022-01-02] VITALS: BP 119/84
[2022-01-02] MEDS: VANCOMYCIN HCL 125 MG/2.5 ML ORAL.SUSP PO SCH ×5 (00:16→23:33)
[2022-01-02] MEDS: BLOOD SUGAR DIAGNOSTIC 1 EACH STRIP IN SCH ×5 (00:23→23:34)
[2022-01-02] MEDS: INSULIN REGULAR, HUMAN 100 UNIT/ML 3 ML VIAL SQ PRN ×3 (00:26→23:35)
[2022-01-02] MEDS: NEPRO 1,000 ML BOTTLE GT SCH (02:32)
[2022-01-02 04:00] VITALS: BP 122/58
[2022-01-02] MEDS: IPRATROPIUM NEB FS 0.5 MG/2.5 ML AMPUL.NEB NEB SCH ×4 (04:03→20:07)
[2022-01-02] MEDS: PHENYTOIN SODIUM IV 100 MG/2ML VIAL IV SCH ×3 (04:16→21:32)
[2022-01-02] MEDS: METOCLOPRAMIDE HCL 10 MG/2 ML VIAL IV SCH ×3 (04:16→21:32)
[2022-01-02] MEDS: MIDODRINE HCL (5MG) 5 MG TABLET PO SCH ×3 (05:06→21:36)
--- NOTE | 2022-01-02 06:40 | NUR ---
RN closing notes Pt is resting in bed comfortbaly. Pt is obtunded. On mec. vent with O2 sat is 100%. No SOB. No S/S of distress noted. VS is stable. Routine meds were given as ordered. R subclavian HD cath is in placed. XIOMARA PICC line is intact. RAC midline# 18 is intact. Herring cath is in placed. Flexiseal is in placed with output 420 ml. Tele monitor showed SR hr at 64. Gtube feeding is running nephro @ 45 ml/hr with 0 residual. Wound care provided as ordered. Kept Pt clean, dry and comfortable. Safety precautions is maintained. Bed at low position, brakes locked, side rails upX3, hob elevated and call light is within reach. Will endorse to am nurse for OTIS.
--- NOTE | 2022-01-02 07:30 | NUR ---
TD RN NOTE RECEIVED PATIENT IN BED, OBTUNDED, WITH PROTEX 7 TO MECHANICAL VENT AC 14 TV 500 FIO2 30 SATING 100%. NO DISTRESS, RESPIRATION UNLABORED, SR,HR 88 ON MONITOR, NO SIGNS OF PAIN, IV SITE IS ON LEFT UPPER ARM PICC LINE [ONLY PURPLE PORT WORKING], RAC MIDLINE AND RIGHT CHEST WALL PERM-CATH FOR HD, BOTH INTACT AND PATENT, CDI DRESSING. ONGOING GTF NEPRO AT 45 ML/HR, CHECKED FOR PLACEMENT, O RESIDUAL,RECTAL TUBE IN PLACE AND PROCTOR CATHETER IN PLACE WITH 0 OUTPUT. PT HAS MULTIPLE WOUNDS ON SACRUM AND LEFT/RIGHT HIPS. REFER TO NURSING ASSESSMENT. WILL DO PRESCRIBED WOUND TREATMENT IN A WHILE. TURN AND REPOSITION Q 2 HOURS. OFF LOADING, ALL SAFETY MEASURES IMPLEMENTED, BED IN LOW POSITION AND KEPT HEAD OF THE BED ELEVATED. CALL LIGHT WITHIN REACH. WILL CONTINUE TO MONITOR.
[2022-01-02 08:00] VITALS: BP 140/88
[2022-01-02] MEDS: PANTOPRAZOLE 40 MG/PACK PACK GT SCH (08:01)
[2022-01-02] MEDS: MEROPENEM 500 MG in IV NS 0.9% 50 ML IV SCH (08:38)
[2022-01-02] MEDS: HYDROCORTISONE SOD SUCCINATE 100 MG/2 ML VIAL IV SCH ×2 (08:39→17:38)
[2022-01-02] MEDS: CHLORHEXIDINE GLUCONATE 15 ML UDC MM SCH ×2 (08:39→17:38)
[2022-01-02] MEDS: PROSOURCE / PROSTAT (PYXIS) 30 ML UDC GT SCH ×2 (08:40→17:31)
[2022-01-02] MEDS: PHENOBARBITAL 30 MG TABLET GT SCH ×2 (08:40→21:33)
[2022-01-02] MEDS: DORZOLAMIDE OPTH 2% 10 ML BOTTLE OP SCH ×2 (08:58→17:38)
[2022-01-02] MEDS: THERAHONEY GEL 1.5 OZ TUBE TP SCH (08:59)
[2022-01-02] MEDS: DAKINS HALF STRENGTH (0.25%) 480 ML BOTTLE TOP SCH (08:59)
--- NOTE | 2022-01-02 09:30 | NUR ---
RN NOTES DUE MEDS GIVEN
[2022-01-02 12:00] VITALS: BP 138/72
--- NOTE | 2022-01-02 13:30 | NUR ---
RN NOTES PROAMATINE NOT ADMINISTERED, BP 138/72
[2022-01-02 16:00] VITALS: BP 120/78
[2022-01-02 16:03] LABS: BASOPHILS % (AUTO) 0.1 % (0.0-2.0); EOSINOPHILS % (AUTO) 1.2 % (0.0-6.0); HEMATOCRIT 29 % (33-45); HEMOGLOBIN 9.1 g/dL (11.5-14.8); LYMPHOCYTES # (AUTO) 0.9 K/uL (0.8-4.8); MEAN CORPUSCULAR HGB CONC 32 g/dl (31.0-36.0); MEAN CORPUSCULAR VOLUME 95 fL (82-100); MONOCYTES # (AUTO) 0.7 K/uL (0.1-1.30); MONOCYTES % (AUTO) 3.2 % (2.0-12.0); NEUTROPHILS # (AUTO) 19.8 K/uL (1.8-8.9); NEUTROPHILS % (AUTO) 91.5 % (43.0-81.0); PLATELET COUNT (AUTO) 158 K/uL (150-450); WHITE BLOOD COUNT (AUTO) 21.6 K/uL (4.3-11.0)
[2022-01-02 16:20] LABS: CARBON DIOXIDE 18 mmol/L (21-32); CHLORIDE 102 mmol/L (98-107); GLUCOSE 159 mg/dL (74-106); MAGNESIUM 2.5 mg/dL (1.8-2.4); PHOSPHORUS 5.7 mg/dL (2.5-4.9); POTASSIUM 3.4 mmol/L (3.5-5.1); SODIUM SERUM 137 mmol/L (136-145)
[2022-01-02 16:30] LABS: UREA NITROGEN, BLOOD 121 mg/dL (7-18)
--- NOTE | 2022-01-02 16:34 | NUR ---
RN NOTES CRITICAL RESULT BUN 121. CARSON BLACKMON NP AWARE. PT FOR HD.
--- NOTE | 2022-01-02 17:37 | NUR ---
RN NOTES CRITICAL RESULT BUN [address] FALCON AND CARSON BLACKMON BUS PERSON INFORMED.
[2022-01-02] MEDS: ALBUMIN 25% 25 GM in PREMIX 1 EA IV PRN (17:39)
--- NOTE | 2022-01-02 19:40 | NUR ---
TD RN CLOSING NOTE PATIENT IN BED, OBTUNDED, WITH PROTEX 7 TO MECHANICAL VENT AC 14 TV 500 FIO2 30 SATING 100%. NO DISTRESS, RESPIRATION UNLABORED, SR,HR 88 ON MONITOR, NO SIGNS OF PAIN, IV SITE IS ON LEFT UPPER ARM PICC LINE [ONLY PURPLE PORT WORKING], RAC MIDLINE AND RIGHT CHEST WALL PERM-CATH FOR HD, BOTH INTACT AND PATENT, CDI DRESSING. ONGOING GTF NEPRO AT 45 ML/HR, CHECKED FOR PLACEMENT, O RESIDUAL,RECTAL TUBE IN PLACE AND PROCTOR CATHETER IN PLACE WITH 0 OUTPUT. PT HAS MULTIPLE WOUNDS ON SACRUM AND LEFT/RIGHT HIPS. REFER TO NURSING ASSESSMENT. PRESCRIBED WOUND TREATMENT AND PM CARE DONE EARLIER. TURNED AND REPOSITIONED Q 2 HOURS. OFF LOADING, ALL SAFETY MEASURES IMPLEMENTED, BED IN LOW POSITION AND KEPT HEAD OF THE BED ELEVATED. CALL LIGHT WITHIN REACH. ALL NEEDS MET AT THIS TIME. WILL ENDORSE TO NEXT SHIFT FOR OTIS.
[2022-01-02 20:00] VITALS: BP 129/37
--- NOTE | 2022-01-02 20:17 | NUR ---
RN NOTE PT DONE WITH DIALYSIS. REMOVED 1L. R CHEST HD CATH INTACT. PT ON VENT, NOT IN ANY DISTRESS. RT AT BEDSIDE. PT DAUGHTER AT BEDSIDE. SR ON TELE MONITOR HR 76. GT PATENT AND INPLACE. ON FEEDING OF NEPRO AT 45ML/HR. NO RESIDUALS NOTED. KEPT HOB ELEVATED. PROCTOR AND FLEXISEAL IN PLACE. WOUND DRESSING INTACT. WILL CONTINUE TO MONITOR.
[2022-01-02] MEDS: COLISTIMETHATE SODIUM 150 MG in IV NS 0.9% 50 ML IV SCH (20:32)
[2022-01-02] MEDS: NS 0.9% IV SCH (21:29)
[2022-01-02] MEDS: DAPTOMYCIN IV SCH (21:29)
[2022-01-02] MEDS: LATANOPROST EYE DROP 0.005% 2.5 ML BOTTLE OP SCH (21:48)
[2022-01-02] MEDS ORDERED: EPOETIN ALFA (10,000 UNIT) 10,000 UNIT/ML VIAL ONE (23:28)
[2022-01-02] MEDS: EPOETIN ALFA-EPBX 4,000 UNIT/ML VIAL IV PRN (23:43)
[2022-01-03] VITALS (25 sets, daily range): BP systolic 65–178; BP diastolic 26–76
[2022-01-03] MEDS: IPRATROPIUM NEB FS 0.5 MG/2.5 ML AMPUL.NEB NEB SCH ×4 (02:17→20:08)
[2022-01-03] MEDS: NEPRO 1,000 ML BOTTLE GT SCH (03:47)
[2022-01-03] MEDS: IV NS 0.9% 250 ML IV PRN (03:47)
[2022-01-03] MEDS: MIDODRINE HCL (5MG) 5 MG TABLET PO SCH ×3 (05:26→21:51)
[2022-01-03] MEDS: BLOOD SUGAR DIAGNOSTIC 1 EACH STRIP IN SCH ×4 (05:27→23:29)
[2022-01-03] MEDS: METOCLOPRAMIDE HCL 10 MG/2 ML VIAL IV SCH ×3 (05:27→21:50)
[2022-01-03] MEDS: PHENYTOIN SODIUM IV 100 MG/2ML VIAL IV SCH ×3 (05:28→21:49)
[2022-01-03] MEDS: VANCOMYCIN HCL 125 MG/2.5 ML ORAL.SUSP PO SCH ×4 (05:29→23:30)
--- NOTE | 2022-01-03 06:43 | NUR ---
RN NOTE PT CONTINUE WITH VENT SETTINGS, TOLERATING. NO S/SX OF DISTRESS NOTED. TOLERATES GT FEEDING OF NEPRO RUNNING AT 45ML/HR. NO RESIDUALS WERE NOTED. KEPT HOB ELEVATED. IV ON XIOMARA AND RAC REMIAN INTACT AND PATENT. HD CATH IN PLACE, NO BLEEDING NOTED. PT ANURIC. PROCTOR CATH REMAIN IN PLACE. FLEXISEAL IN PLACE WITH WATERY STOOL. WOUND TX WERE DONE ORDERED. TURNED AND REPOSITIONED. WILL ENDORSE TO NEXT SHIFT NURSE FOR OTIS.
[2022-01-03 07:16] LABS: BASOPHILS # (AUTO) 0.1 K/uL (0.0-0.2); BASOPHILS % (AUTO) 0.3 % (0.0-2.0); EOSINOPHILS % (AUTO) 2.1 % (0.0-6.0); HEMATOCRIT 25 % (33-45); LYMPHOCYTES # (AUTO) 1.5 K/uL (0.8-4.8); LYMPHOCYTES % (AUTO) 7.9 % (20.0-44.0); MEAN CORPUSCULAR HGB CONC 32 g/dl (31.0-36.0); MEAN CORPUSCULAR VOLUME 95 fL (82-100); MONOCYTES # (AUTO) 0.6 K/uL (0.1-1.30); MONOCYTES % (AUTO) 3.2 % (2.0-12.0); NEUTROPHILS # (AUTO) 16.4 K/uL (1.8-8.9); NEUTROPHILS % (AUTO) 86.5 % (43.0-81.0); PLATELET COUNT (AUTO) 154 K/uL (150-450); RED BLOOD CELL COUNT(AUTO) 2.63 MIL/uL (4.0-5.2)
[2022-01-03 07:26] LABS: CARBON DIOXIDE 19 mmol/L (21-32); CHLORIDE 104 mmol/L (98-107); CREATININE 1.6 mg/dL (0.6-1.3); GLUCOSE 84 mg/dL (74-106); MAGNESIUM 2.3 mg/dL (1.8-2.4); PHOSPHORUS 4.5 mg/dL (2.5-4.9); POTASSIUM 3.1 mmol/L (3.5-5.1); SODIUM SERUM 137 mmol/L (136-145)
[2022-01-03 07:35] LABS: UREA NITROGEN, BLOOD 93 mg/dL (7-18)
[2022-01-03] MEDS: MEROPENEM 500 MG in IV NS 0.9% 50 ML IV SCH (09:02)
[2022-01-03] MEDS: PANTOPRAZOLE 40 MG/PACK PACK GT SCH (09:02)
[2022-01-03] MEDS: HYDROCORTISONE SOD SUCCINATE 100 MG/2 ML VIAL IV SCH ×2 (09:02→17:32)
[2022-01-03] MEDS: CHLORHEXIDINE GLUCONATE 15 ML UDC MM SCH ×2 (09:02→17:28)
[2022-01-03] MEDS: DORZOLAMIDE OPTH 2% 10 ML BOTTLE OP SCH ×2 (09:03→17:28)
[2022-01-03] MEDS: PHENOBARBITAL 30 MG TABLET GT SCH ×2 (09:03→21:48)
[2022-01-03] MEDS: PROSOURCE / PROSTAT (PYXIS) 30 ML UDC GT SCH ×2 (09:03→17:29)
[2022-01-03] MEDS: DAKINS HALF STRENGTH (0.25%) 480 ML BOTTLE TOP SCH (09:03)
[2022-01-03] MEDS: THERAHONEY GEL 1.5 OZ TUBE TP SCH (09:04)
[2022-01-03] MEDS: COLISTIMETHATE SODIUM 150 MG in IV NS 0.9% 50 ML IV SCH (17:34)
--- NOTE | 2022-01-03 18:00 | NUR ---
RN NOTE PATIENTS BP IS 74/26. MADE AWARE
--- NOTE | 2022-01-03 18:20 | NUR ---
RN NOTE PATIENT TRANSFERRED TO ICU
[2022-01-03] MEDS: NOREPINEPHRINE 8 MG in IV NS 0.9% 242 ML IV PRN (19:24)
--- NOTE | 2022-01-03 19:30 | NUR ---
RN NOTE PT TRANSFERRED TO ICU DUE TO LOW BP, NOTED WITH BP 73/59 HR 72, LEVOPHED STARTED ORDERED. WITH PICC LINE ON XIOMARA AND ML ON RAC. PT OBTUNDED. VENT SETTINGS, AC 30 TV500 FIO2 30%. O2 SAT AT 95%. NO DISTRESS NOTED. GT IN PLACE. NEPRO FEEDING RESTARTED AT 45ML/HR. RECTAL TUBE AND PROCOTR CATH IN PLACE. WILL CONTINUE TO MONITOR.
[2022-01-03 21:38] LABS: BASOPHILS # (AUTO) 0.1 K/uL (0.0-0.2); BASOPHILS % (AUTO) 0.4 % (0.0-2.0); EOSINOPHILS % (AUTO) 1.2 % (0.0-6.0); HEMATOCRIT 30 % (33-45); HEMOGLOBIN 9.3 g/dL (11.5-14.8); LYMPHOCYTES # (AUTO) 1.3 K/uL (0.8-4.8); LYMPHOCYTES % (AUTO) 3.1 % (20.0-44.0); MEAN CORPUSCULAR HGB CONC 31 g/dl (31.0-36.0); MEAN CORPUSCULAR VOLUME 98 fL (82-100); MONOCYTES # (AUTO) 1.2 K/uL (0.1-1.30); MONOCYTES % (AUTO) 2.9 % (2.0-12.0); NEUTROPHILS # (AUTO) 37.9 K/uL (1.8-8.9); NEUTROPHILS % (AUTO) 92.4 % (43.0-81.0); PLATELET COUNT (AUTO) 202 K/uL (150-450); RED BLOOD CELL COUNT(AUTO) 3.09 MIL/uL (4.0-5.2)
[2022-01-03 21:54] LABS: CALCIUM, SERUM 8.1 mg/dL (8.5-10.1); CARBON DIOXIDE 18 mmol/L (21-32); CHLORIDE 104 mmol/L (98-107); CREATININE 1.8 mg/dL (0.6-1.3); GLUCOSE 140 mg/dL (74-106); MAGNESIUM 1.8 mg/dL (1.8-2.4); PHOSPHORUS 4.6 mg/dL (2.5-4.9); POTASSIUM 3.2 mmol/L (3.5-5.1); SODIUM SERUM 136 mmol/L (136-145)
[2022-01-03 22:00] LABS: UREA NITROGEN, BLOOD 100 mg/dL (7-18)
--- NOTE | 2022-01-03 22:00 | NUR ---
RN NOTE PT WBC 41.NOTIFIED INDEPENDENT AGENT MUSIC EDUCATION DR IQBAL. PT AFEBRILE. WITH ONGOING ATBS. NO ORDER AT THIS TIME.
[2022-01-03] MEDS: LATANOPROST EYE DROP 0.005% 2.5 ML BOTTLE OP SCH (22:14)
[2022-01-03 22:17] LABS: BAND % (MANUAL) 4 % (0.0-5.0); EOSINOPHILS % (MANUAL) 1 % (0-4); LYMPHOCYTES % (MANUAL) 5 % (16-48); MONOCYTES % (MANUAL) 3 % (0-11.0); NEUTROPHILS % (MANUAL) 87 (42-76)
[2022-01-03] MEDS: INSULIN REGULAR, HUMAN 100 UNIT/ML 3 ML VIAL SQ PRN (23:29)
[2022-01-04] VITALS (84 sets, daily range): BP systolic 80–168; BP diastolic 29–71
[2022-01-04] MEDS: IPRATROPIUM NEB FS 0.5 MG/2.5 ML AMPUL.NEB NEB SCH ×4 (02:24→20:08)
[2022-01-04] MEDS: MIDODRINE HCL (5MG) 5 MG TABLET PO SCH ×3 (04:46→21:07)
[2022-01-04] MEDS: PHENYTOIN SODIUM IV 100 MG/2ML VIAL IV SCH ×3 (05:01→20:55)
[2022-01-04] MEDS: METOCLOPRAMIDE HCL 10 MG/2 ML VIAL IV SCH ×3 (05:03→20:57)
[2022-01-04] MEDS: NEPRO 1,000 ML BOTTLE GT SCH (05:06)
[2022-01-04 05:07] LABS: BASOPHILS # (AUTO) 0.1 K/uL (0.0-0.2); BASOPHILS % (AUTO) 0.2 % (0.0-2.0); EOSINOPHILS % (AUTO) 1.6 % (0.0-6.0); HEMATOCRIT 25 % (33-45); HEMOGLOBIN 7.6 g/dL (11.5-14.8); LYMPHOCYTES % (AUTO) 6.7 % (20.0-44.0); MEAN CORPUSCULAR HGB CONC 31 g/dl (31.0-36.0); MEAN CORPUSCULAR VOLUME 97 fL (82-100); MONOCYTES # (AUTO) 1.2 K/uL (0.1-1.30); MONOCYTES % (AUTO) 4.2 % (2.0-12.0); NEUTROPHILS # (AUTO) 25.9 K/uL (1.8-8.9); NEUTROPHILS % (AUTO) 87.3 % (43.0-81.0); PLATELET COUNT (AUTO) 172 K/uL (150-450); RED BLOOD CELL COUNT(AUTO) 2.54 MIL/uL (4.0-5.2); WHITE BLOOD COUNT (AUTO) 29.6 K/uL (4.3-11.0)
[2022-01-04 05:26] LABS: CALCIUM, SERUM 8.1 mg/dL (8.5-10.1); CARBON DIOXIDE 18 mmol/L (21-32); CHLORIDE 103 mmol/L (98-107); CREATININE 1.8 mg/dL (0.6-1.3); GLUCOSE 119 mg/dL (74-106); MAGNESIUM 2.3 mg/dL (1.8-2.4); PHOSPHORUS 4.7 mg/dL (2.5-4.9); POTASSIUM 3.1 mmol/L (3.5-5.1); SODIUM SERUM 138 mmol/L (136-145)
[2022-01-04] MEDS: VANCOMYCIN HCL 125 MG/2.5 ML ORAL.SUSP PO SCH ×4 (05:43→23:47)
[2022-01-04] MEDS: BLOOD SUGAR DIAGNOSTIC 1 EACH STRIP IN SCH ×4 (05:46→23:47)
[2022-01-04 05:54] LABS: UREA NITROGEN, BLOOD 99 mg/dL (7-18)
--- NOTE | 2022-01-04 07:30 | NUR ---
RN NOTES PT FOUND SEMI FOWLERS DISPLAYING NO S/S OF DISTRESS, FLACC = 0 AND BILATERAL RISE AND FALL OF THE CHEST OBSERVED. TRACH DRESSING IS CLEAN AND DRY. L UA PICC DRESSING IS CLEAN AND DRY. R AC ML IS PATIENT AND INTACT. FELXISEAL IS BELOW PATIENT DRAINING BY GRAVITY. PROCTOR CATH BELOW PATIENT DRAINING BY GRAVITY. PEG DRESSING IS CLEAN AND DRY. RN WILL MONITOR AND TREAT THROUGHOUT SHIFT. SAFETY MEASURES IN PLACE, BED LOCKED AND IN LOWEST POSITION, SIDE RAILS UPX2, CALL LIGHT WITHIN REACH, BED ALARM ARMED.
--- NOTE | 2022-01-04 07:30 | NUR ---
RN CLOSING NOTES LEVOPHED RESTARTED PER PROTOCOL, PT BP IN 80S. CURRENTLY ON 0.02MCG/KG/MIN. NO DISTRESS NOTED. PT TOLERATES VENT SETTINGS SATING 100%. CONTINUE ON GT FEEDING OF NEPRO AT 45ML/HR. NO RESIDUALS. KEPT HOB ELEVATED. WOUND CARE DONE ORDERED. TURNED AND REPOSITIONED. NO URINE OUTPUT. PT WITH WATERY STOOL, FLEXISEAL REMAIN IN PLACE. PT AFEBRILE. ENDORSED TO NEXT SHIFT NURSE FOR OTIS.
[2022-01-04] MEDS: PANTOPRAZOLE 40 MG/PACK PACK GT SCH (07:52)
[2022-01-04] MEDS: MEROPENEM 500 MG in IV NS 0.9% 50 ML IV SCH (08:57)
[2022-01-04] MEDS: PHENOBARBITAL 30 MG TABLET GT SCH ×2 (08:58→20:59)
[2022-01-04] MEDS: CHLORHEXIDINE GLUCONATE 15 ML UDC MM SCH ×2 (08:58→17:42)
[2022-01-04] MEDS: DAKINS HALF STRENGTH (0.25%) 480 ML BOTTLE TOP SCH (08:58)
[2022-01-04] MEDS: DORZOLAMIDE OPTH 2% 10 ML BOTTLE OP SCH ×2 (08:58→17:42)
[2022-01-04] MEDS: THERAHONEY GEL 1.5 OZ TUBE TP SCH (08:58)
[2022-01-04] MEDS: HYDROCORTISONE SOD SUCCINATE 100 MG/2 ML VIAL IV SCH ×4 (08:58→20:58)
[2022-01-04] MEDS: PROSOURCE / PROSTAT (PYXIS) 30 ML UDC GT SCH ×2 (09:05→17:42)
[2022-01-04] MEDS: POTASSIUM CL. PREMIX PERIPHER. 50 ML IV SCH ×3 (11:14→12:13)
[2022-01-04] MEDS: INSULIN REGULAR, HUMAN 100 UNIT/ML 3 ML VIAL SQ PRN ×3 (12:18→23:50)
[2022-01-04] MEDS: COLISTIMETHATE SODIUM 150 MG in IV NS 0.9% 50 ML IV SCH (18:36)
--- NOTE | 2022-01-04 19:10 | NUR ---
RN OPENING NOTES RECEIVED PATIENT ON BED, SLEEPING, ON MECHANICAL VENTILATION SETTINGS TOLERATED WELL, RESPIRATORY EVEN AND UNLABORED, REMAIN AFEBRILE. NO S/S OF DISTRESS NOTED. PATIENT NOTED WITH XIOMARA PICC LINE, RAC MID LINE, INTACT IN PLACED, FLUSHED WITH NS. RUNNING ON LEVOPHED @ 0.01 mcg/kg/min. WITH GTUBE IN PLACED, VERIFIED PLACEMENT BY AUSCULTATION, NO RESIDUAL NOTED UPON ASPIRATION, RUNNING WITH NEPHRO @ 45 ML/HR, WITH PROCTOR CATHETER AND RECTAL TUBE IN PLACE, DRAINING WELL VIA GRAVITY. ALL SAFETY PRECAUTION PROVIDED, BED IN LOWEST POSITION, LOCKED. CONTINUE TO MONITOR.
--- NOTE | 2022-01-04 19:24 | NUR ---
RN NOTES PT FOUND SEMI FOWLERS DISPLAYING NO S/S OF DISTRESS, FLACC = 0 AND BILATERAL RISE AND FALL OF THE CHEST OBSERVED. TRACH DRESSING IS CLEAN AND DRY. L UA PICC DRESSING IS CLEAN AND DRY. R AC ML IS PATIENT AND INTACT. FELXISEAL IS BELOW PATIENT DRAINING BY GRAVITY. PROCTOR CATH BELOW PATIENT DRAINING BY GRAVITY. PEG DRESSING IS CLEAN AND DRY. SBAR AND REPORT GIVEN TO MANAGER ADMINISTRATION RN, ALL QUESTIONS ANSWERED. SAFETY MEASURES IN PLACE, BED LOCKED AND IN LOWEST POSITION, SIDE RAILS UPX2, CALL LIGHT WITHIN REACH, BED ALARM ARMED. PT ENDORSED IN STABLE CONDITION FOR OTIS.
[2022-01-04] MEDS: NS 0.9% IV SCH (19:31)
[2022-01-04] MEDS: DAPTOMYCIN IV SCH (19:31)
[2022-01-04] MEDS: IV NS 0.9% 250 ML IV PRN (19:42)
[2022-01-04] MEDS: LATANOPROST EYE DROP 0.005% 2.5 ML BOTTLE OP SCH (21:28)
[2022-01-05] VITALS (69 sets, daily range): BP systolic 79–135; BP diastolic 30–66
[2022-01-05] MEDS: IPRATROPIUM NEB FS 0.5 MG/2.5 ML AMPUL.NEB NEB SCH ×4 (01:55→20:21)
[2022-01-05 04:26] LABS: BASOPHILS % (AUTO) 0.1 % (0.0-2.0); EOSINOPHILS % (AUTO) 0.1 % (0.0-6.0); HEMATOCRIT 25 % (33-45); HEMOGLOBIN 7.8 g/dL (11.5-14.8); LYMPHOCYTES % (AUTO) 2.5 % (20.0-44.0); MEAN CORPUSCULAR HGB CONC 31 g/dl (31.0-36.0); MEAN CORPUSCULAR VOLUME 97 fL (82-100); MONOCYTES # (AUTO) 0.8 K/uL (0.1-1.30); MONOCYTES % (AUTO) 2.2 % (2.0-12.0); NEUTROPHILS # (AUTO) 37.3 K/uL (1.8-8.9); NEUTROPHILS % (AUTO) 95.1 % (43.0-81.0); PLATELET COUNT (AUTO) 234 K/uL (150-450); RED BLOOD CELL COUNT(AUTO) 2.62 MIL/uL (4.0-5.2)
[2022-01-05] MEDS: PHENYTOIN SODIUM IV 100 MG/2ML VIAL IV SCH ×3 (04:34→22:14)
[2022-01-05] MEDS: HYDROCORTISONE SOD SUCCINATE 100 MG/2 ML VIAL IV SCH ×3 (04:36→22:08)
[2022-01-05] MEDS: METOCLOPRAMIDE HCL 10 MG/2 ML VIAL IV SCH ×3 (04:36→22:08)
[2022-01-05] MEDS: MIDODRINE HCL (5MG) 5 MG TABLET PO SCH ×3 (04:38→22:09)
[2022-01-05 04:41] LABS: CALCIUM, SERUM 8.7 mg/dL (8.5-10.1); CARBON DIOXIDE 16 mmol/L (21-32); CHLORIDE 100 mmol/L (98-107); GLUCOSE 287 mg/dL (74-106); MAGNESIUM 2.2 mg/dL (1.8-2.4); POTASSIUM 3.8 mmol/L (3.5-5.1); SODIUM SERUM 135 mmol/L (136-145)
[2022-01-05 04:47] LABS: UREA NITROGEN, BLOOD 113 mg/dL (7-18)
[2022-01-05 04:48] LABS: WHITE BLOOD COUNT (AUTO) 39.2 K/uL (4.3-11.0)
--- NOTE | 2022-01-05 05:00 | NUR ---
RN NOTES PATIENT NOTED WITH DISLODGED RAC MID LINE, NO BLEEDING NOTED. CHARGE NURSE MADE AWARE.
[2022-01-05] MEDS: NEPRO 1,000 ML BOTTLE GT SCH (05:06)
[2022-01-05] MEDS: VANCOMYCIN HCL 125 MG/2.5 ML ORAL.SUSP PO SCH ×3 (05:17→17:55)
[2022-01-05] MEDS: BLOOD SUGAR DIAGNOSTIC 1 EACH STRIP IN SCH ×4 (06:02→23:51)
[2022-01-05] MEDS: INSULIN REGULAR, HUMAN 100 UNIT/ML 3 ML VIAL SQ PRN ×4 (06:03→23:50)
--- NOTE | 2022-01-05 06:30 | NUR ---
RN NOTES PAGED DR. IQBAL REGARDING WBC-39.2 AND BUN- 113, WAITIMG FOR CALL BACK.
--- NOTE | 2022-01-05 07:09 | NUR ---
RN NOTES RN OPENING NOTES NO SIGNIFICANT CHANGES THROUGH OUT THE SHIFT, RESPIRATORY EVEN AND UNLABORED, REMAIN AFEBRILE. NO S/S OF DISTRESS NOTED. RUNNING ON LEVOPHED @ 0.01 mcg/kg/min. GTUBE RUNNING WITH NEPHRO @ 45 ML/HR, HEAD OF BED KEPT ELEVATED. WITH PROCTOR CATHETER AND RECTAL TUBE IN PLACE, DRAINING WELL VIA GRAVITY. ALL DUE MEDS GIVEN ORDERED. ALL SAFETY PRECAUTION PROVIDED, BED IN LOWEST POSITION, LOCKED. ENDORSED TO NEXT SHIFT.
[2022-01-05] MEDS: NOREPINEPHRINE 8 MG in IV NS 0.9% 242 ML IV PRN (07:11)
[2022-01-05] MEDS: PANTOPRAZOLE 40 MG/PACK PACK GT SCH (07:56)
--- NOTE | 2022-01-05 08:10 | NUR ---
RN NOTE HD STARTED
[2022-01-05] MEDS: ALBUMIN 25% 25 GM in PREMIX 1 EA IV PRN (08:55)
[2022-01-05] MEDS: PROSOURCE / PROSTAT (PYXIS) 30 ML UDC GT SCH ×2 (09:05→17:51)
[2022-01-05] MEDS: DORZOLAMIDE OPTH 2% 10 ML BOTTLE OP SCH ×2 (09:05→17:52)
[2022-01-05] MEDS: CHLORHEXIDINE GLUCONATE 15 ML UDC MM SCH ×2 (09:05→17:52)
[2022-01-05] MEDS: DAKINS HALF STRENGTH (0.25%) 480 ML BOTTLE TOP SCH (09:05)
[2022-01-05] MEDS: PHENOBARBITAL 30 MG TABLET GT SCH ×2 (09:05→22:08)
[2022-01-05] MEDS: MEROPENEM 500 MG in IV NS 0.9% 50 ML IV SCH (09:05)
[2022-01-05] MEDS: THERAHONEY GEL 1.5 OZ TUBE TP SCH (09:06)
--- NOTE | 2022-01-05 12:00 | NUR ---
RN NOTE HD FINISHED, NO FLUID REMOVED
[2022-01-05] MEDS: EPOETIN ALFA-EPBX 4,000 UNIT/ML VIAL IV PRN (14:23)
[2022-01-05 16:18] LABS: NEUTROPHILS % (MANUAL) 94 (42-76)
[2022-01-05 16:19] LABS: LYMPHOCYTES % (MANUAL) 3 % (16-48); MONOCYTES % (MANUAL) 3 % (0-11.0)
[2022-01-05] MEDS: COLISTIMETHATE SODIUM 150 MG in IV NS 0.9% 50 ML IV SCH (17:55)
--- NOTE | 2022-01-05 19:16 | NUR ---
RN NOTES PT FOUND SEMI FOWLERS DISPLAYING NO S/S OF DISTRESS, FLACC = 0 AND BILATERAL RISE AND FALL OF THE CHEST OBSERVED. TRACH DRESSING IS CLEAN AND DRY. L UA PICC DRESSING IS CLEAN AND DRY. R AC ML IS PATIENT AND INTACT. FELXISEAL IS BELOW PATIENT DRAINING BY GRAVITY. PROCTOR CATH BELOW PATIENT DRAINING BY GRAVITY. PEG DRESSING IS CLEAN AND DRY. SBAR AND REPORT GIVEN TO CORDUROY CUTTING SUPERVISOR RN, ALL QUESTIONS ANSWERED. SAFETY MEASURES IN PLACE, BED LOCKED AND IN LOWEST POSITION, SIDE RAILS UPX2, CALL LIGHT WITHIN REACH, BED ALARM ARMED. PT ENDORSED IN STABLE CONDITION FOR OTIS.
--- NOTE | 2022-01-05 19:46 | NUR ---
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 received the pt rest in bed. trach to vent. portex#7,ac 14,tv 500, fio2 30%. sat 100%. no acute distress noted. slitter helper showing nsr. iv lt upper arm picc line. rt subclavian perma cath. hob elevated, gt intact. nephro 45ml/h, levophed 0.01mcg/kg/min, multiple wound noted. Flexi seal intact.will continue to monitor vitals.
[2022-01-05] MEDS: LATANOPROST EYE DROP 0.005% 2.5 ML BOTTLE OP SCH (22:16)
[2022-01-06] VITALS (47 sets, daily range): BP systolic 107–155; BP diastolic 43–81
[2022-01-06] MEDS: VANCOMYCIN HCL 125 MG/2.5 ML ORAL.SUSP PO SCH ×5 (00:21→23:49)
[2022-01-06] MEDS: IPRATROPIUM NEB FS 0.5 MG/2.5 ML AMPUL.NEB NEB SCH ×4 (02:02→19:33)
[2022-01-06] MEDS: IV NS 0.9% 250 ML IV PRN (03:48)
[2022-01-06] MEDS: NEPRO 1,000 ML BOTTLE GT SCH ×2 (03:51→03:58)
[2022-01-06] MEDS: HYDROCORTISONE SOD SUCCINATE 100 MG/2 ML VIAL IV SCH ×3 (04:29→21:37)
[2022-01-06] MEDS: METOCLOPRAMIDE HCL 10 MG/2 ML VIAL IV SCH ×3 (04:29→21:38)
[2022-01-06] MEDS: PHENYTOIN SODIUM IV 100 MG/2ML VIAL IV SCH ×3 (04:29→21:39)
[2022-01-06] MEDS: MIDODRINE HCL (5MG) 5 MG TABLET PO SCH ×3 (04:30→21:38)
[2022-01-06 04:34] LABS: BASOPHILS # (AUTO) 0.1 K/uL (0.0-0.2); BASOPHILS % (AUTO) 0.2 % (0.0-2.0); EOSINOPHILS % (AUTO) 0.3 % (0.0-6.0); HEMATOCRIT 25 % (33-45); HEMOGLOBIN 7.9 g/dL (11.5-14.8); LYMPHOCYTES # (AUTO) 0.9 K/uL (0.8-4.8); LYMPHOCYTES % (AUTO) 3.5 % (20.0-44.0); MEAN CORPUSCULAR HGB CONC 32 g/dl (31.0-36.0); MEAN CORPUSCULAR VOLUME 96 fL (82-100); MONOCYTES # (AUTO) 0.9 K/uL (0.1-1.30); MONOCYTES % (AUTO) 3.5 % (2.0-12.0); NEUTROPHILS # (AUTO) 24.4 K/uL (1.8-8.9); NEUTROPHILS % (AUTO) 92.5 % (43.0-81.0); PLATELET COUNT (AUTO) 174 K/uL (150-450); RED BLOOD CELL COUNT(AUTO) 2.61 MIL/uL (4.0-5.2); WHITE BLOOD COUNT (AUTO) 26.3 K/uL (4.3-11.0)
[2022-01-06 04:41] LABS: CALCIUM, SERUM 8.7 mg/dL (8.5-10.1); CARBON DIOXIDE 19 mmol/L (21-32); CHLORIDE 103 mmol/L (98-107); CREATININE 1.6 mg/dL (0.6-1.3); GLUCOSE 232 mg/dL (74-106); MAGNESIUM 2.2 mg/dL (1.8-2.4); PHOSPHORUS 4.8 mg/dL (2.5-4.9); POTASSIUM 3.2 mmol/L (3.5-5.1); SODIUM SERUM 140 mmol/L (136-145)
[2022-01-06 04:42] LABS: BAND % (MANUAL) 2 % (0.0-5.0); LYMPHOCYTES % (MANUAL) 4 % (16-48); MONOCYTES % (MANUAL) 4 % (0-11.0); NEUTROPHILS % (MANUAL) 90 (42-76)
[2022-01-06 05:14] LABS: UREA NITROGEN, BLOOD 93 mg/dL (7-18)
[2022-01-06] MEDS: INSULIN REGULAR, HUMAN 100 UNIT/ML 3 ML VIAL SQ PRN ×4 (05:51→23:48)
[2022-01-06] MEDS: BLOOD SUGAR DIAGNOSTIC 1 EACH STRIP IN SCH ×4 (06:53→23:49)
--- NOTE | 2022-01-06 06:54 | NUR ---
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 SAT 99%. NO ACUTE DISTRESS NOTED. SMOOTH STUCCO RESURFACER SHOWING NSR. IV LT UPPER ARM PICC LINE. TKO RUNNING. LEVOPHED OFF SINCE 0200. GT FEEDING TOLERATED WELL. FLEXI SEAL INTACT. S FEBRILE. FC PATENT. WOUND DRESSING DONE PER ORDERED. HOB ELEVATED. TURN AND REPOSITION Q2H. AT THIS TIME BP IS 128/64. WILL MONITOR VITALS.
[2022-01-06] MEDS ORDERED: POTASSIUM CHLORIDE 20 MEQ TAB.PRT.SR PO ONE (07:00)
[2022-01-06] MEDS: PANTOPRAZOLE 40 MG/PACK PACK GT SCH (07:50)
[2022-01-06] MEDS: PHENOBARBITAL 30 MG TABLET GT SCH ×2 (08:41→21:38)
[2022-01-06] MEDS: CHLORHEXIDINE GLUCONATE 15 ML UDC MM SCH ×2 (08:41→17:05)
[2022-01-06] MEDS: MEROPENEM 500 MG in IV NS 0.9% 50 ML IV SCH (08:41)
[2022-01-06] MEDS: PROSOURCE / PROSTAT (PYXIS) 30 ML UDC GT SCH ×2 (08:42→17:05)
[2022-01-06] MEDS: THERAHONEY GEL 1.5 OZ TUBE TP SCH (08:42)
[2022-01-06] MEDS: DAKINS HALF STRENGTH (0.25%) 480 ML BOTTLE TOP SCH (08:43)
[2022-01-06] MEDS: DORZOLAMIDE OPTH 2% 10 ML BOTTLE OP SCH ×2 (08:43→17:05)
[2022-01-06] MEDS: COLISTIMETHATE SODIUM 150 MG in IV NS 0.9% 50 ML IV SCH (17:40)
[2022-01-06] MEDS ORDERED: DOPamine 400 MG in IV D5W 250 ML IV PRN (18:30)
[2022-01-06] MEDS: DAPTOMYCIN IV SCH (18:54)
[2022-01-06] MEDS: NS 0.9% IV SCH (18:54)
--- NOTE | 2022-01-06 19:09 | NUR ---
PT ON BED STILL ON TRACH/VENT SETTING PER MD FIO2 30% SPO2 98-99% NO SIGN OF RESPIRATORY DISTRESS NOTED TELE MONITOR READS SINUS RHYTHM 70'S GTUBE WITH ONGOING NEPRO @ 45ML/HR TOLERATING WELL, WOUND TREATMENT DONE, STILL WITH FLEXISEAL, WOUND TREATMENT DONE NO SIGNIFICANT CHANGES ON CONDITION NOTED,BED ON LOWEST POSITION AND LOCKED SIDE RAILS UP X2 CALL LIGHT WITHIN REACH WILL CONT TO MONITOR
--- NOTE | 2022-01-06 19:25 | NUR ---
agricultural consultant. initial assessment. received the pt rest in bed. open eyes does not follow commands. virtual reality specialist showing nsr. iv lt upper arm picc line. tko running. gt feeding nephro 45 ml/h. portex #7,ac 14, tv 500,fio2 30%,sat 99%, no acute distress noted. rt subclavian hd cath FLEXI SEAL INTACT. WILL CONTINUE TO MONITOR VITALS.
[2022-01-06] MEDS: LATANOPROST EYE DROP 0.005% 2.5 ML BOTTLE OP SCH (21:37)
[2022-01-07] VITALS (36 sets, daily range): BP systolic 108–135; BP diastolic 39–68
[2022-01-07] MEDS: IPRATROPIUM NEB FS 0.5 MG/2.5 ML AMPUL.NEB NEB SCH ×4 (01:21→19:43)
[2022-01-07] MEDS: IV NS 0.9% 250 ML IV PRN (02:56)
[2022-01-07] MEDS: NEPRO 1,000 ML BOTTLE GT SCH (03:38)
[2022-01-07 04:14] LABS: BASOPHILS # (AUTO) 0.1 K/uL (0.0-0.2); BASOPHILS % (AUTO) 0.3 % (0.0-2.0); EOSINOPHILS % (AUTO) 0.7 % (0.0-6.0); HEMATOCRIT 25 % (33-45); HEMOGLOBIN 7.8 g/dL (11.5-14.8); LYMPHOCYTES % (AUTO) 4.5 % (20.0-44.0); MEAN CORPUSCULAR HGB CONC 31 g/dl (31.0-36.0); MEAN CORPUSCULAR VOLUME 96 fL (82-100); MONOCYTES # (AUTO) 0.8 K/uL (0.1-1.30); MONOCYTES % (AUTO) 3.8 % (2.0-12.0); NEUTROPHILS # (AUTO) 19.1 K/uL (1.8-8.9); NEUTROPHILS % (AUTO) 90.7 % (43.0-81.0); PLATELET COUNT (AUTO) 151 K/uL (150-450); RED BLOOD CELL COUNT(AUTO) 2.59 MIL/uL (4.0-5.2); WHITE BLOOD COUNT (AUTO) 21.1 K/uL (4.3-11.0)
[2022-01-07 04:34] LABS: BAND % (MANUAL) 2 % (0.0-5.0); LYMPHOCYTES % (MANUAL) 5 % (16-48); NEUTROPHILS % (MANUAL) 88 (42-76)
[2022-01-07 04:35] LABS: MONOCYTES % (MANUAL) 3 % (0-11.0)
[2022-01-07 04:49] LABS: CALCIUM, SERUM 8.4 mg/dL (8.5-10.1); CARBON DIOXIDE 21 mmol/L (21-32); CHLORIDE 104 mmol/L (98-107); CREATININE 1.6 mg/dL (0.6-1.3); GLUCOSE 164 mg/dL (74-106); MAGNESIUM 2.1 mg/dL (1.8-2.4); PHOSPHORUS 4.8 mg/dL (2.5-4.9); POTASSIUM 3.6 mmol/L (3.5-5.1); SODIUM SERUM 140 mmol/L (136-145)
[2022-01-07 04:55] LABS: UREA NITROGEN, BLOOD 104 mg/dL (7-18)
--- NOTE | 2022-01-07 05:28 | NUR ---
agricultural economist. am care given.remaining same vent settings tolerated well. sat 98%. no acute distress noted. quick service technician showing nsr,gt feeding tolerated well. hob elevated.turn nad reposition q2h. will continue to monitor vitals.
[2022-01-07] MEDS: METOCLOPRAMIDE HCL 10 MG/2 ML VIAL IV SCH ×3 (06:11→21:28)
[2022-01-07] MEDS: PHENYTOIN SODIUM IV 100 MG/2ML VIAL IV SCH ×3 (06:11→21:28)
[2022-01-07] MEDS: MIDODRINE HCL (5MG) 5 MG TABLET PO SCH ×3 (06:12→21:27)
[2022-01-07] MEDS: VANCOMYCIN HCL 125 MG/2.5 ML ORAL.SUSP PO SCH ×4 (06:13→23:15)
[2022-01-07] MEDS: HYDROCORTISONE SOD SUCCINATE 100 MG/2 ML VIAL IV SCH ×3 (06:13→16:58)
[2022-01-07] MEDS: BLOOD SUGAR DIAGNOSTIC 1 EACH STRIP IN SCH ×4 (06:13→23:15)
[2022-01-07] MEDS: INSULIN REGULAR, HUMAN 100 UNIT/ML 3 ML VIAL SQ PRN ×3 (06:16→23:17)
[2022-01-07] MEDS: PANTOPRAZOLE 40 MG/PACK PACK GT SCH (07:48)
--- NOTE | 2022-01-07 08:00 | NUR ---
RN NOTES RECEIVED PATIENT TRACHEA/VENT DEPENDENT. no acute respiratory distress, total care,, suction, mouth care done, vss, patient has multiple wounds, generalized edema. GT intact running Nepro @45 ml/hr, residual is 5 ml. due medication administered. NASEEM picc line intact, infusing TKO. patient anuric, rectal tube intact. keep hob elevated for aspiration precaution, assist turn and reposition q 2 hr. will follow up.
[2022-01-07] MEDS: CHLORHEXIDINE GLUCONATE 15 ML UDC MM SCH ×2 (08:01→16:58)
[2022-01-07] MEDS: PHENOBARBITAL 30 MG TABLET GT SCH ×2 (08:01→21:27)
[2022-01-07] MEDS: DAKINS HALF STRENGTH (0.25%) 480 ML BOTTLE TOP SCH (08:01)
[2022-01-07] MEDS: MEROPENEM 500 MG in IV NS 0.9% 50 ML IV SCH (08:02)
[2022-01-07] MEDS: PROSOURCE / PROSTAT (PYXIS) 30 ML UDC GT SCH ×2 (08:02→16:55)
[2022-01-07] MEDS: THERAHONEY GEL 1.5 OZ TUBE TP SCH (08:02)
[2022-01-07] MEDS: DORZOLAMIDE OPTH 2% 10 ML BOTTLE OP SCH ×2 (08:03→16:55)
--- NOTE | 2022-01-07 09:00 | NUR ---
RN NOTES PATIENT GETTING HEMODIALYSIS AT THIS TIME .
[2022-01-07] MEDS: ALBUMIN 25% 25 GM in PREMIX 1 EA IV PRN (09:58)
--- NOTE | 2022-01-07 10:00 | NUR ---
RN NOTES Patient has right side slightly increased in the right lung since the previous exam. Decreased left pleural effusion. per radiology result.
--- NOTE | 2022-01-07 12:00 | NUR ---
rn notes finished hemodialysis at this time, no output just cleaning, per md order. patient has generalized edema, dressing changed, running Nepro 45ml/hr intact. keep hob elevated, bs-87 mg/dl. infusing tko on XIOMARA picc line intact. assist turn and reposition q 2 hr.
[2022-01-07] MEDS: COLISTIMETHATE SODIUM 150 MG in IV NS 0.9% 50 ML IV SCH (17:28)
--- NOTE | 2022-01-07 17:40 | NUR ---
RN NOTES TRANSFERRED PATIENT TO THE [facility]IT WITH STABLE CONDITION, DUE MEDICATION ADMINISTERED, VSS, BS-160MG COVERAGE GIVEN. BEDSIDE REPORT GIVEN CHARGE NURSE FOLLOW PLAN OF CARE.
--- NOTE | 2022-01-07 18:00 | NUR ---
patient received from icu to room 114-1 chronic V/T patient telemetry applied with SR rate of 74 . picc line in place on left arm with no signs of redness or swelling noted. patient had a HD today no out put vitals taken temp 97.9f resp 20, obtunded. daughter at bed side and update her condition. patient has a multiple wound on sacrum left hip buttock and ears gt tube with nephro at 45ml/hr no residual noted will continue to assess and evaluate
--- NOTE | 2022-01-07 20:14 | NUR ---
RN NOTE PATIENT OBTUNDED, ON TRACH TO VENT, TOLERATING SETTINGS WELL. O2 SAT 95%. ON TELE, SR ON MONITOR. G-TUBE PATENT AND INTACT WITH NEPRO @ 45ML/HR, NO RESIDUAL NOTED. XIOMARA PICC LINE IN PLACE, NO REDNESS OR SWELLING. RIGHT SUBCLAVIAN HD CATHETER NOTED, DRESSING DRY AND INTACT. DAUGHTER AT BEDSIDE. BED LOCKED AND IN LOWEST POSITION. CALL LIGHT WITHIN REACH. WILL CONTINUE TO MONITOR.
[2022-01-07] MEDS: LATANOPROST EYE DROP 0.005% 2.5 ML BOTTLE OP SCH (21:29)
[2022-01-08] VITALS: BP 118/56
[2022-01-08] MEDS: IPRATROPIUM NEB FS 0.5 MG/2.5 ML AMPUL.NEB NEB SCH ×4 (01:19→19:41)
[2022-01-08 04:00] VITALS: BP 125/52
[2022-01-08] MEDS: METOCLOPRAMIDE HCL 10 MG/2 ML VIAL IV SCH ×3 (05:10→21:34)
[2022-01-08] MEDS: PHENYTOIN SODIUM IV 100 MG/2ML VIAL IV SCH ×3 (05:10→21:30)
[2022-01-08] MEDS: INSULIN REGULAR, HUMAN 100 UNIT/ML 3 ML VIAL SQ PRN ×2 (05:11→17:59)
[2022-01-08] MEDS: BLOOD SUGAR DIAGNOSTIC 1 EACH STRIP IN SCH ×3 (05:11→17:59)
[2022-01-08] MEDS: MIDODRINE HCL (5MG) 5 MG TABLET PO SCH ×3 (05:11→21:37)
[2022-01-08] MEDS: VANCOMYCIN HCL 125 MG/2.5 ML ORAL.SUSP PO SCH ×3 (05:11→17:21)
[2022-01-08 06:50] LABS: BASOPHILS % (AUTO) 0.1 % (0.0-2.0); EOSINOPHILS % (AUTO) 1.6 % (0.0-6.0); HEMATOCRIT 25 % (33-45); HEMOGLOBIN 8.1 g/dL (11.5-14.8); LYMPHOCYTES # (AUTO) 1.7 K/uL (0.8-4.8); LYMPHOCYTES % (AUTO) 10.1 % (20.0-44.0); MEAN CORPUSCULAR HGB CONC 32 g/dl (31.0-36.0); MEAN CORPUSCULAR VOLUME 97 fL (82-100); MONOCYTES % (AUTO) 5.8 % (2.0-12.0); NEUTROPHILS # (AUTO) 14.1 K/uL (1.8-8.9); NEUTROPHILS % (AUTO) 82.4 % (43.0-81.0); PLATELET COUNT (AUTO) 138 K/uL (150-450); RED BLOOD CELL COUNT(AUTO) 2.63 MIL/uL (4.0-5.2); WHITE BLOOD COUNT (AUTO) 17.1 K/uL (4.3-11.0)
--- NOTE | 2022-01-08 07:00 | NUR ---
RN NOTES recived pt on bed , no acute respiratory distress, total care,, suction, mouth care done, vss, patient has multiple wounds, generalized edema. GT intact running Nepro @45 ml/hr, no residual noted, unable to flush left upper arm picc line ports , patient anuric, rectal tube intact. keep HOB elevated for aspiration precaution, sr up x3, call light within easy reach, bed locked and in lowest position, continue to Monitor.
--- NOTE | 2022-01-08 07:16 | NUR ---
RN NOTE PATIENT OBTUNDED, ON TRACH TO VENT, TOLERATING SETTINGS WELL. O2 SAT 98%. G-TUBE PATENT AND INTACT WITH NEPRO @ 45ML/HR, 5CC RESIDUAL NOTED. KEPT CLEAN AND DRY, TURNED AND REPOSITIONED. DUE MEDS GIVEN ORDERED. BED LOCKED AND IN LOWEST POSITION. CALL LIGHT WITHIN REACH. ENDORSED TO AM SHIFT.
[2022-01-08 07:21] LABS: CALCIUM, SERUM 8.8 mg/dL (8.5-10.1); CREATININE 1.3 mg/dL (0.6-1.3); MAGNESIUM 2.3 mg/dL (1.8-2.4); PHOSPHORUS 3.9 mg/dL (2.5-4.9); POTASSIUM 3.8 mmol/L (3.5-5.1)
[2022-01-08 08:00] VITALS: BP 123/49
[2022-01-08] MEDS: PANTOPRAZOLE 40 MG/PACK PACK GT SCH (08:52)
[2022-01-08] MEDS: MEROPENEM 500 MG in IV NS 0.9% 50 ML IV SCH (08:53)
[2022-01-08] MEDS: CHLORHEXIDINE GLUCONATE 15 ML UDC MM SCH ×2 (08:53→16:25)
[2022-01-08] MEDS: DORZOLAMIDE OPTH 2% 10 ML BOTTLE OP SCH ×2 (08:53→16:25)
[2022-01-08] MEDS: THERAHONEY GEL 1.5 OZ TUBE TP SCH (08:54)
[2022-01-08] MEDS: DAKINS HALF STRENGTH (0.25%) 480 ML BOTTLE TOP SCH (08:54)
--- NOTE | 2022-01-08 08:55 | NUR ---
RN NOTES PT RECEIVING HD , MORNING MEDS HELD FOR NOW
[2022-01-08] MEDS: PHENOBARBITAL 30 MG TABLET GT SCH ×2 (09:36→21:29)
[2022-01-08] MEDS: HYDROCORTISONE SOD SUCCINATE 100 MG/2 ML VIAL IV SCH ×2 (09:36→16:25)
[2022-01-08] MEDS: PROSOURCE / PROSTAT (PYXIS) 30 ML UDC GT SCH ×2 (09:37→16:26)
[2022-01-08] MEDS ORDERED: ALTEPLASE CATHFLO 2 MG/VIAL XX ONE ×3 (11:30→12:30)
[2022-01-08 12:00] VITALS: BP 121/52
--- NOTE | 2022-01-08 14:00 | NUR ---
RN NOTES UNABLE TO CLEAR THE THE PICC LINE PORTS WITH ALTEPLASE . RAJIV DEVULCANIZER OPERATOR NOTIFIED, PICC LINE D/LUKASZ PER DEVULCANIZER OPERATOR ORDER, NEW IV SITE STARTED ON LEFT FOREARM G 20 .
[2022-01-08] MEDS: NEPRO 1,000 ML BOTTLE GT SCH (14:43)
[2022-01-08 16:00] VITALS: BP 105/50
[2022-01-08] MEDS: COLISTIMETHATE SODIUM 150 MG in IV NS 0.9% 50 ML IV SCH (17:20)
--- NOTE | 2022-01-08 18:00 | NUR ---
RN NOTE NO SIGNIFICANT CHANGES NOTED ON THIS SHIFT, PATIENT OBTUNDED, ON TRACH TO VENT, TOLERATING SETTINGS WELL. O2 SAT 98%. G-TUBE PATENT AND INTACT WITH NEPRO @ 45ML/HR, KEPT CLEAN AND DRY, TURNED AND REPOSITIONED. DUE MEDS GIVEN ORDERED. BED LOCKED AND IN LOWEST POSITION. CALL LIGHT WITHIN REACH. ENDORSED TO PM SHIFT.
--- NOTE | 2022-01-08 19:30 | NUR ---
RN OPENING NOTES RECEIVED PT ON BED, OBTUNDED. ON TRACH TO VENT, TOLERATING SETTINGS WELL WITH O2 SAT OF 100%. NO S/SX OF ACUTE DISTRESS NOTED. NO SOB NOTED. NOTED WITH LFA, #20G, INTACT, PATENT AND FLUSHES WELL. NO INFILTRATION NOTED AT SITE. PT HAS MULTIPLE WOUNDS, AND GENERALIZED EDEMA. GT FEEDING INTACT, RUNNING NEPRO AT 45 ML/HR. NO RESIDUAL NOTED. SAFETY MEASURES PROVIDED. KEPT HOB ELEVATED FOR ASPIRATION PRECAUTION. BED IN LOWEST POSITION, LOCKED. SR UP X 3, CALL LIGHT WITHIN REACH. WILL CONTINUE TO MONITOR.
[2022-01-08] MEDS: DAPTOMYCIN IV SCH (19:53)
[2022-01-08] MEDS: NS 0.9% IV SCH (19:53)
[2022-01-08 20:00] VITALS: BP 116/34
[2022-01-08] MEDS: ACETAMINOPHEN 650 MG/20.3 ML UDC GT PRN (20:21)
[2022-01-08] MEDS: LATANOPROST EYE DROP 0.005% 2.5 ML BOTTLE OP SCH (21:37)
[2022-01-09] VITALS (9 sets, daily range): BP systolic 81–119; BP diastolic 23–42
[2022-01-09] MEDS: BLOOD SUGAR DIAGNOSTIC 1 EACH STRIP IN SCH ×5 (00:37→23:47)
[2022-01-09] MEDS: VANCOMYCIN HCL 125 MG/2.5 ML ORAL.SUSP PO SCH ×5 (00:42→23:32)
[2022-01-09] MEDS: INSULIN REGULAR, HUMAN 100 UNIT/ML 3 ML VIAL SQ PRN ×4 (00:48→23:47)
[2022-01-09] MEDS: IPRATROPIUM NEB FS 0.5 MG/2.5 ML AMPUL.NEB NEB SCH ×4 (01:46→19:34)
[2022-01-09] MEDS: PHENYTOIN SODIUM IV 100 MG/2ML VIAL IV SCH ×3 (04:16→21:34)
[2022-01-09] MEDS: METOCLOPRAMIDE HCL 10 MG/2 ML VIAL IV SCH ×3 (04:16→21:35)
[2022-01-09] MEDS: MIDODRINE HCL (5MG) 5 MG TABLET PO SCH ×3 (04:18→21:33)
--- NOTE | 2022-01-09 07:30 | NUR ---
CONCERT SINGER NOTES PT IN BED, ASLEEP, NO SIGN OF PAIN OR DISTRESS, AFEBRILE AT THIS TIME, GT FEEDING INFUSING WELL, KEPT WARM AND COMFORTABLE.
--- NOTE | 2022-01-09 07:34 | NUR ---
GRAINING MACHINE OPERATOR CLOSING NOTES NO SIGNIFICANT CHANGES NOTED THROUGHOUT THE SHIFT. PT ON TRACH VENT, WITH 02 SAT OF 100%, TOLERATING WELL. PT IS OBTUNDED, HAS IV LINE AT LFA #20, INTACT, PATENT AND FLUSHES WELL. NO INFILTRATION NOTED AT THE SITE. PT ON GT FEEDING RUNNING NEPRO AT 45 ML/HR. NO RESIDUAL NOTED. RECTAL TUBE INTACT. ALL DUE MEDS GIVEN. ALL NEEDS ATTENDED TO. KEPT PT CLEAN AND DRY. ALL DUE MEDS GIVEN ORDERED. ALL NEEDS ATTENDED TO. KEPT HOB ELEVATED FOR ASPIRATION PRECAUTION. SAFETY MEASURES FOLLOWED. BED IN LOWEST POSITION, LOCKED IN PLACE. BED ALARM ON. CALL LIGHT WITHIN REACH. WILL ENDORSE TO AM SHIFT FOR OTIS.
[2022-01-09] MEDS: PROSOURCE / PROSTAT (PYXIS) 30 ML UDC GT SCH ×2 (08:10→17:16)
[2022-01-09] MEDS: CHLORHEXIDINE GLUCONATE 15 ML UDC MM SCH ×2 (08:11→17:16)
[2022-01-09] MEDS: MEROPENEM 500 MG in IV NS 0.9% 50 ML IV SCH (08:11)
[2022-01-09] MEDS: PHENOBARBITAL 30 MG TABLET GT SCH ×2 (08:11→21:32)
[2022-01-09] MEDS: HYDROCORTISONE SOD SUCCINATE 100 MG/2 ML VIAL IV SCH ×2 (08:11→17:17)
[2022-01-09] MEDS: PANTOPRAZOLE 40 MG/PACK PACK GT SCH (08:11)
[2022-01-09] MEDS: DAKINS HALF STRENGTH (0.25%) 480 ML BOTTLE TOP SCH (08:12)
[2022-01-09] MEDS: THERAHONEY GEL 1.5 OZ TUBE TP SCH (08:13)
[2022-01-09] MEDS: DORZOLAMIDE OPTH 2% 10 ML BOTTLE OP SCH ×2 (08:14→19:17)
[2022-01-09] MEDS ORDERED: DOPamine 400 MG/D5W 250 ML RTU BAG IV ONE (12:30)
--- NOTE | 2022-01-09 14:11 | NUR ---
NAVY SEAL NOTES NOTED PT'S LATEST BP 92/25 HR 72, PT'S DIASTOLIC BP IS ON THE 20'S SINCE THIS MORNING, DR. WALDEN INFORMED, NO NEW ORDER PER MD, PT RESTING COMFORTABLY, NO SIGN OF PAIN OR DISTRESS.
[2022-01-09] MEDS: DOPamine 400 MG in IV D5W 250 ML IV PRN (15:39)
--- NOTE | 2022-01-09 15:41 | NUR ---
SPECTACLE TRUER NOTES BP 81/23 HR 82, DOPAMINE DRIP STARTED PER PROTOCOL, ORDERED NEW PICC LINE PLACEMENT.
[2022-01-09] MEDS: NEPRO 1,000 ML BOTTLE GT SCH (16:12)
--- NOTE | 2022-01-09 19:00 | NUR ---
ASSEMBLER TRIM NOTES PT IN BED, RESTING, NO SIGN OF PAIN OR DISTRESS, DAUGHTER AT BEDSIDE, BP IMPROVING, PM CARE PROVIDED, WOUND DRESSING DONE, REPOSITIONED FOR COMFORT, PICC LINE PLACED AT LEFT UPPER ARM, AWAITING PLACEMENT CONFIRMATION THROUGH CXR, ALL NEEDS ATTENDED.
--- NOTE | 2022-01-09 19:30 | NUR ---
RN NOTES RECEIVED PT A/OX0 IN BED RESTING COMFORTABLY. PT'S DAUGHTER AT THE BEDSIDE. PATIENT IN NO S/SX OF ACUTE DISTRESS AT THIS TIME. PATIENT ON MECHANICAL VENT; SETTINGS PRESCRIBED; PT TOLERATED WELL. AMBU BAG AT BED SIDE ALARMS SET PER PROTOCOL AND AUDIBLE. VENT PLUGGED IN TO RED OUTLET. NO DISTRESS NOTED. PATIENT ON TELE MONITORING READING SINUS RHYTHM. G TUBE FLUSHING AND PATENT; SITE CLEAN DRY AND INTACT; NO RESIDUAL NOTED; CONNECTED TO GTUBE FEEDING OF NEPRO@45CC/HR;TOLERATES WELL. NOTED IV SITE ON L FA#20 PATENT, INTACT AND FLUSHING WELL; NO S/S OF INFECTION OR INFILTRATION. NEW PICC LINE ON THE R UA FLUSHING BUT WAITING FOR PLACEMENT CONFIRMATION VIA CXR. WITH FLEXISEAL SECURED AND INTACT DRAINING SMALL TO MOD AMOUNT OF OUTPUT. SAFETY MEASURES HAVE BEEN PROVIDED AND IMPLEMENTED. PATIENT BED ALARM IS ON. HEAD OF BED ELEVATED. BED IS LOCKED, IN LOWEST POSITION AND SIDE RAILS UP. CALL LIGHT WITHIN REACH OF THE PATIENT. APPLICABLE ISOLATION PRECAUTIONS IN PLACE. WILL CONTINUE TO MONITOR AND REASSESS FOR ANY CHANGES AND WILL CARRY OUT ANY ONGOING AND ACTIVE MD ORDER.
[2022-01-09] MEDS: COLISTIMETHATE SODIUM 150 MG in IV NS 0.9% 50 ML IV SCH (21:20)
[2022-01-09] MEDS: LATANOPROST EYE DROP 0.005% 2.5 ML BOTTLE OP SCH (21:36)
[2022-01-10] VITALS: BP 126/59
[2022-01-10] MEDS: IPRATROPIUM NEB FS 0.5 MG/2.5 ML AMPUL.NEB NEB SCH ×4 (01:35→20:14)
[2022-01-10 04:00] VITALS: BP 130/62
[2022-01-10] MEDS: METOCLOPRAMIDE HCL 10 MG/2 ML VIAL IV SCH ×3 (04:08→21:48)
[2022-01-10] MEDS: PHENYTOIN SODIUM IV 100 MG/2ML VIAL IV SCH ×3 (04:08→21:49)
[2022-01-10] MEDS: MIDODRINE HCL (5MG) 5 MG TABLET PO SCH ×3 (04:28→21:48)
[2022-01-10] MEDS: VANCOMYCIN HCL 125 MG/2.5 ML ORAL.SUSP PO SCH ×3 (05:33→17:09)
[2022-01-10] MEDS: BLOOD SUGAR DIAGNOSTIC 1 EACH STRIP IN SCH ×3 (05:33→17:09)
[2022-01-10] MEDS: INSULIN REGULAR, HUMAN 100 UNIT/ML 3 ML VIAL SQ PRN ×3 (05:37→17:52)
--- NOTE | 2022-01-10 06:35 | NUR ---
RN CLOSING NOTE: PATIENT REMAINS IN ROOM IN NO SIGNS OF RESPIRATORY DISTRESS, PATIENT STILL ON MECH VENT; SETTINGS PRESCRIBED;TOLERATING WELL SATURATING @ >95% SP02. SAFETY MEASURES IMPLEMENTED, BED IN LOWEST POSITION, LOCKED, SIDE RAILS UP, CALL LIGHT WITHIN REACH. ALL NEEDS AND ORDERS ADDRESSED DURING THE SHIFT. IV ACCESS MAINTAINED INTACT, SECURED AND FLUSHING WELL. ALL DUE MEDS GIVEN ORDERED & SCHEDULED ; PATIENT TOLERATED WELL.OL PATIENT KEPT CLEAN AND COMFORTABLE WITHIN THE SHIFT. PATIENT ENDORSED TO INCOMING SHIFT RN WITH STABLE VITAL SIGN AND FOR CONTINUITY OF CARE.
--- NOTE | 2022-01-10 07:30 | NUR ---
RN OPENING NOTE PT OBSERVED IN BED WITH HOB >30 DEGREES. PT IS ON MECHANICAL VENT WITH ALL PRESCRIBED SETTINGS TOLERATING WELL WITH NO DISTRESS OR LABORED BREATHING. PT IS A/OX1 AND OBTUNDED. GTUBE IS IN PLACE WITH POSITIVE PLACEMENT INFUSING WITH JEVITY @45ML/HR. PT IS ANURIC. FLEXISEAL IS IN PLACE. IV ACCESS R UA PICC LINE. BED IS LOCKED IN LOWEST POSITION X2 BED RAILS UP WILL CONTINUE TO MONITOR THIS SHIFT.
[2022-01-10 08:00] VITALS: BP 80/35
[2022-01-10] MEDS ORDERED: DOPamine 400 MG in IV D5W 250 ML IV PRN (08:00)
--- NOTE | 2022-01-10 08:00 | NUR ---
RN NOTE PT RESTARTED ON DOPAMINE @5MCG/HR.
[2022-01-10] MEDS: PANTOPRAZOLE 40 MG/PACK PACK GT SCH (08:19)
[2022-01-10] MEDS: DOPamine 400 MG in IV D5W 250 ML IV PRN (08:19)
[2022-01-10] MEDS: PHENOBARBITAL 30 MG TABLET GT SCH ×2 (08:29→21:47)
[2022-01-10] MEDS: MEROPENEM 500 MG in IV NS 0.9% 50 ML IV SCH (08:29)
[2022-01-10] MEDS: PROSOURCE / PROSTAT (PYXIS) 30 ML UDC GT SCH ×2 (08:30→16:16)
[2022-01-10] MEDS: CHLORHEXIDINE GLUCONATE 15 ML UDC MM SCH ×2 (08:32→16:17)
[2022-01-10] MEDS: HYDROCORTISONE SOD SUCCINATE 100 MG/2 ML VIAL IV SCH ×2 (08:32→17:00)
[2022-01-10] MEDS: THERAHONEY GEL 1.5 OZ TUBE TP SCH (08:33)
[2022-01-10] MEDS: DAKINS HALF STRENGTH (0.25%) 480 ML BOTTLE TOP SCH (08:33)
[2022-01-10] MEDS: DORZOLAMIDE OPTH 2% 10 ML BOTTLE OP SCH ×2 (08:33→16:20)
[2022-01-10 12:00] VITALS: BP 65/30
[2022-01-10 16:00] VITALS: BP 66/35
--- NOTE | 2022-01-10 17:00 | NUR ---
RN NOTE NO IV ACCESS AT THIS TIME CAN NOT GIVE HYDROCORTISONE.
--- NOTE | 2022-01-10 19:00 | NUR ---
RN NOTE R FEMORAL PICC LINE DOUBLE LUMEN PLACED. PATENT AND FLUSHING WELL.
--- NOTE | 2022-01-10 19:35 | NUR ---
RN OPENING NOTES, RECEIVED PT IN BED, A/0X0, OBTUNDED. ON MECHANICAL VENT SETTINGS TOLERATING WELL. IV ACCESS ON RT FEMORAL PICC INFUSING DOPAMINE 5MCG/HR AND PT TOLERATED WELL. NO FACIAL GRIMACING NOTED NO ACUTE DISTRESS. GTUBE FEEDING WITH JEVITY @45ML/HR. NO RESIDUAL NOTED. PT IS ANURIC. FLEXISEAL ON PLACE WITH OUTPUT. ALL SAFETY MEASURES IN PLACE. BED IN LOCKED AND LOWEST POSITION. SIDE RAILS UP X3, PLACE CALL LIGHT WITH IN REACH. WILL CONTINUE TO MONITOR
--- NOTE | 2022-01-10 19:45 | NUR ---
RN CLOSING NOTE PT OBSERVED IN BED WITH HOB >30 DEGREES. PT IS ON MECHANICAL VENT WITH ALL PRESCRIBED SETTINGS TOLERATING WELL WITH NO DISTRESS OR LABORED BREATHING. PT IS A/OX1 AND OBTUNDED. GTUBE IS IN PLACE WITH POSITIVE PLACEMENT INFUSING WITH JEVITY @45ML/HR. PT IS ANURIC. FLEXISEAL IS IN PLACE. IV ACCESS R FEMORAL PICC LINE INFUSING WITH 5MCG/HR OF DOPAMINE. BED IS LOCKED IN LOWEST POSITION X2 BED RAILS UP WILL ENDORSE TO ELECTRONICS DETAIL DRAFTSPERSON NURSE FOR OTIS.
[2022-01-10] MEDS: DAPTOMYCIN IV SCH (19:49)
[2022-01-10] MEDS: NS 0.9% IV SCH (19:49)
[2022-01-10] MEDS: COLISTIMETHATE SODIUM 150 MG in IV NS 0.9% 50 ML IV SCH (19:55)
[2022-01-10 20:00] VITALS: BP 83/27
[2022-01-10] MEDS: LATANOPROST EYE DROP 0.005% 2.5 ML BOTTLE OP SCH (22:04)
[2022-01-11] VITALS (27 sets, daily range): BP systolic 70–152; BP diastolic 28–58
[2022-01-11] MEDS: VANCOMYCIN HCL 125 MG/2.5 ML ORAL.SUSP PO SCH ×5 (00:31→23:48)
[2022-01-11] MEDS: DOPamine 400 MG in IV D5W 250 ML IV PRN ×2 (00:41→14:52)
[2022-01-11] MEDS: BLOOD SUGAR DIAGNOSTIC 1 EACH STRIP IN SCH ×5 (01:02→23:53)
--- NOTE | 2022-01-11 01:03 | NUR ---
RN NOTES: BLOOD SUGAR 115. NO COVERAGE NEEDED. NO S/S OF HYPER/HYPOGLYCEMIA. WILL CONTINUE TO MONITOR
[2022-01-11] MEDS: IPRATROPIUM NEB FS 0.5 MG/2.5 ML AMPUL.NEB NEB SCH ×4 (01:20→19:54)
[2022-01-11] MEDS: METOCLOPRAMIDE HCL 10 MG/2 ML VIAL IV SCH ×3 (05:07→21:11)
[2022-01-11] MEDS: MIDODRINE HCL (5MG) 5 MG TABLET PO SCH ×3 (05:07→22:04)
[2022-01-11] MEDS: PHENYTOIN SODIUM IV 100 MG/2ML VIAL IV SCH ×3 (05:07→21:18)
--- NOTE | 2022-01-11 05:27 | NUR ---
RN NOTES: BLOOD SUGAR 106. NO COVERAGE NEEDED. NO S/S OF HYPER/HYPOGLYCEMIA.
--- NOTE | 2022-01-11 06:40 | NUR ---
RN CLOSING NOTES, PT IN BED, A/0 X 0, OBTUNDED. ON MECHANICAL VENT SETTINGS TOLERATING WELL. IV ACCESS ON RT FEMORAL PICC INFUSING DOPAMINE 5MCG/HR AND PT TOLERATED WELL. NO FACIAL GRIMACING NOTED NO ACUTE DISTRESS. GTUBE FEEDING WITH JEVITY @45ML/HR. NO RESIDUAL NOTED. PT IS ANURIC. FLEXISEAL ON PLACE WITH OUTPUT 100CC. ALL DUE MEDS GIVEN PER ORDERED. ALL SAFETY MEASURES IN PLACE. BED IN LOCKED AND LOWEST POSITION. SIDE RAILS UP X3, PLACE CALL LIGHT WITH IN REACH. WILL ENDORSE TO MORNING SHIFT NURSE.
[2022-01-11 06:49] LABS: BASOPHILS # (AUTO) 0.1 K/uL (0.0-0.2); BASOPHILS % (AUTO) 0.4 % (0.0-2.0); EOSINOPHILS % (AUTO) 2.1 % (0.0-6.0); HEMATOCRIT 22 % (33-45); LYMPHOCYTES # (AUTO) 1.7 K/uL (0.8-4.8); MEAN CORPUSCULAR HGB CONC 32 g/dl (31.0-36.0); MEAN CORPUSCULAR VOLUME 96 fL (82-100); MONOCYTES # (AUTO) 1.3 K/uL (0.1-1.30); MONOCYTES % (AUTO) 5.3 % (2.0-12.0); NEUTROPHILS # (AUTO) 20.5 K/uL (1.8-8.9); NEUTROPHILS % (AUTO) 85.2 % (43.0-81.0); PLATELET COUNT (AUTO) 166 K/uL (150-450); RED BLOOD CELL COUNT(AUTO) 2.27 MIL/uL (4.0-5.2)
[2022-01-11 06:53] LABS: CARBON DIOXIDE 17 mmol/L (21-32); CHLORIDE 101 mmol/L (98-107); CREATININE 1.9 mg/dL (0.6-1.3); GLUCOSE 184 mg/dL (74-106); POTASSIUM 4.2 mmol/L (3.5-5.1); SODIUM SERUM 136 mmol/L (136-145)
[2022-01-11 07:04] LABS: CALCIUM, SERUM 7.6 mg/dL (8.5-10.1)
[2022-01-11 07:05] LABS: UREA NITROGEN, BLOOD 111 mg/dL (7-18)
[2022-01-11] MEDS: NEPRO 1,000 ML BOTTLE GT SCH (07:18)
[2022-01-11] MEDS: PANTOPRAZOLE 40 MG/PACK PACK GT SCH (08:24)
[2022-01-11] MEDS: PHENOBARBITAL 30 MG TABLET GT SCH ×2 (08:25→21:09)
[2022-01-11] MEDS: HYDROCORTISONE SOD SUCCINATE 100 MG/2 ML VIAL IV SCH ×3 (08:25→21:11)
[2022-01-11] MEDS: MEROPENEM 500 MG in IV NS 0.9% 50 ML IV SCH (08:25)
[2022-01-11] MEDS: CHLORHEXIDINE GLUCONATE 15 ML UDC MM SCH ×2 (08:26→18:00)
[2022-01-11] MEDS: DORZOLAMIDE OPTH 2% 10 ML BOTTLE OP SCH ×2 (08:27→17:00)
[2022-01-11] MEDS: THERAHONEY GEL 1.5 OZ TUBE TP SCH (09:09)
[2022-01-11] MEDS: DAKINS HALF STRENGTH (0.25%) 480 ML BOTTLE TOP SCH (09:09)
[2022-01-11] MEDS: PROSOURCE / PROSTAT (PYXIS) 30 ML UDC GT SCH ×2 (09:09→17:00)
--- NOTE | 2022-01-11 11:30 | NUR ---
ICU/RN CHECK BP ON THE LEFT UPPER ARM 81/41,HR-85.NO DISTRESS .RILEY WALDEN NOTIFIED.PT IS ON CONTINUOUS DOPAMINE DRIP .KEEP PATIENT IN [facility] .
[2022-01-11] MEDS: INSULIN REGULAR, HUMAN 100 UNIT/ML 3 ML VIAL SQ PRN ×3 (13:07→23:54)
--- NOTE | 2022-01-11 16:46 | NUR ---
RN NOTE PATIENT BLOOD PRESSURE NOTED TO BE 72/36 MANUAL BP. REASSESSED BY CHARGED NURSE WITH READING OF 75/40 AND 70/45
[2022-01-11] MEDS: COLISTIMETHATE SODIUM 150 MG in IV NS 0.9% 50 ML IV SCH (18:00)
--- NOTE | 2022-01-11 19:00 | NUR ---
RN NOTE PATIENT TRANSFERRED TO ICU, PLACED IN ROOM 261 DUE TO DECREASE OF B/P. PATIENT TRANSFERRED PER HOSPITAL PROTOCOL.
--- NOTE | 2022-01-11 19:15 | NUR ---
ICU/INSPECTOR SOLDERING RECIEVED PT FROM [facility]. PT PLACED ON MONITOR, PT'S BP IS 70'S. PT IS ON DOPA. WILL CALL MD FOR LEVO SINCE PT IS IN ICU NOW.
--- NOTE | 2022-01-11 19:45 | NUR ---
ICU/DYER AND WASHER OBTAIN A ORDER FOR LEVO, CHARGE NURSE PUT ORDER IN COMPUTER. FOR BP LOWER THAN 80'S
--- NOTE | 2022-01-11 20:10 | NUR ---
ICU/TROLLEY WIRE INSTALLER DAUGHTER AT BEDSIDE.
--- NOTE | 2022-01-11 20:20 | NUR ---
ICU/RIDING DOUBLE DECREASED DOPA TO 4MCG/KG/MIN FOR STABLE BP 90/39. WILL CONTINUE TO MONITOR THIS PT'S BP.
[2022-01-11] MEDS: NOREPINEPHRINE 8 MG in IV NS 0.9% 242 ML IV PRN (20:31)
--- NOTE | 2022-01-11 20:37 | NUR ---
ICU/POLICE ARTIST LEVO STARTED FOR LOW BP 78/33. WILL CONTINUE TO MONITOR THIS PT'S BP.
--- NOTE | 2022-01-11 20:50 | NUR ---
ICU/STEAM CONDITIONER FILLING STABLE BP OF 152/58, DOPA WAS DC/D. ONLY LEVO IS CURRENTLY RUNNING. WILL CONTINUE TO MONITOR THIS PT'S BP. DAUGHTER REMAINS AT BEDSIDE, WRITING DOWN VITAL SIGNS. CHARGE NURSE MADE AWARE.
[2022-01-11] MEDS: LATANOPROST EYE DROP 0.005% 2.5 ML BOTTLE OP SCH (22:04)
[2022-01-12] VITALS (98 sets, daily range): BP systolic 68–144; BP diastolic 34–60
[2022-01-12] MEDS: IPRATROPIUM NEB FS 0.5 MG/2.5 ML AMPUL.NEB NEB SCH ×4 (02:04→19:09)
[2022-01-12] MEDS: MIDODRINE HCL (5MG) 5 MG TABLET PO SCH ×3 (04:26→21:11)
[2022-01-12] MEDS: HYDROCORTISONE SOD SUCCINATE 100 MG/2 ML VIAL IV SCH ×3 (04:28→21:10)
[2022-01-12] MEDS: METOCLOPRAMIDE HCL 10 MG/2 ML VIAL IV SCH ×3 (04:28→21:10)
[2022-01-12] MEDS: PHENYTOIN SODIUM IV 100 MG/2ML VIAL IV SCH ×3 (04:28→21:10)
[2022-01-12] MEDS: NEPRO 1,000 ML BOTTLE GT SCH (04:41)
[2022-01-12] MEDS: VANCOMYCIN HCL 125 MG/2.5 ML ORAL.SUSP PO SCH ×4 (05:43→23:30)
[2022-01-12] MEDS: INSULIN REGULAR, HUMAN 100 UNIT/ML 3 ML VIAL SQ PRN ×4 (05:48→23:53)
[2022-01-12] MEDS: BLOOD SUGAR DIAGNOSTIC 1 EACH STRIP IN SCH ×4 (05:48→23:41)
--- NOTE | 2022-01-12 07:07 | NUR ---
WOUND CARE CONSULT: PT SEEN ON REQUEST OF HOSPITALIST FOR LEFT EAR WOUND. LEFT EAR NOTED TO HAVE SOME NECROTIC TISSUE BUT MOSTLY PINK TISSUE, NO ODOR NOTED. REVIEWED WOUND TREATMENT ORDERS (RECENTLY UPDATED BY SURGICAL TEAM) WITH NURSING STAFF. WILL SEE PRN. CONDE IN AGREEMENT WITH PLAN OF CARE.
--- NOTE | 2022-01-12 07:30 | NUR ---
OPENING NOTE: REPORT RECEIVED FROM SERGIO PARHAM. PT OBTUNDED, TRACH VENT PATIENT. PT HAS MULTIPLE WOUNDS, PER REPORT ALL WOUND CARE WAS DONE DURING BATH EARLY THIS AM, WILL CONTINUE TO MONITOR AND CHANGE NEEDED PER MD ORDERS. LEVOPHED INFUSING PER MD ORDERS, CURRENTLY INFUSING AT 0.06 MCG/KG/MIN. PT CHECKED ON HOURLY AND PRN BY NURSING STAFF.
[2022-01-12] MEDS: PROSOURCE / PROSTAT (PYXIS) 30 ML UDC GT SCH ×2 (09:00→17:00)
[2022-01-12] MEDS: PANTOPRAZOLE 40 MG/PACK PACK GT SCH (09:31)
[2022-01-12] MEDS: PHENOBARBITAL 30 MG TABLET GT SCH ×2 (09:31→21:11)
[2022-01-12] MEDS: CHLORHEXIDINE GLUCONATE 15 ML UDC MM SCH ×2 (09:32→18:00)
[2022-01-12] MEDS: MEROPENEM 500 MG in IV NS 0.9% 50 ML IV SCH (09:32)
[2022-01-12] MEDS: DAKINS HALF STRENGTH (0.25%) 480 ML BOTTLE TOP SCH (09:33)
[2022-01-12] MEDS: DORZOLAMIDE OPTH 2% 10 ML BOTTLE OP SCH ×2 (09:33→18:00)
[2022-01-12] MEDS: THERAHONEY GEL 1.5 OZ TUBE TP SCH (09:34)
[2022-01-12] MEDS: IV NS 0.9% 250 ML IV PRN (09:59)
[2022-01-12] MEDS: CEFTAZIDIME 1 G in IV D5W 50 ML IV SCH (17:59)
[2022-01-12] MEDS: COLISTIMETHATE SODIUM 150 MG in IV NS 0.9% 50 ML IV SCH (18:34)
--- NOTE | 2022-01-12 18:42 | NUR ---
END OF SHIFT NOTE: PT HAD A FAIRLY UNEVENTFUL SHIFT. LEVOPHED GTT INFUSING PER MD ORDERS, CURRENTLY AT 0.02 MCG/KG/MIN. PT'S DAUGHTER WAS HERE FOR A WHILE TODAY, APPEARS SUPPORTIVE, NO DIFFICULTIES WITH HER TODAY.NO HD TODAY PER FREDDIE RN, REMOTE INPATIENT CODER. PT CHECKED ON HOURLY AND PRN BY NURSING STAFF.
--- NOTE | 2022-01-12 19:05 | NUR ---
RECEIVED PATIENT OBTUNDED OPEN EYES TO STIMULI, ON MECHANICAL VENTILATION SETTINGS TOLERATED WELL, RESPIRATORY EVEN AND UNLABORED,NO S/S OF DISTRESS NOTED. TELE MONITOR READS SINUS RHYTHM 60'S, PATIENT HAVE RFEM PICC DRESSING INTACT IN PLACED,PATENT AND FLUSHED WITH ONGOING LEVOPHED @ 0.02 MCG/KG/MIN WILL TITRATE PER PROTOCOL, PT HAVE GTUBE IN PLACED, VERIFIED PLACEMENT BY AUSCULTATION, WITH RESIDUAL OF 5 ML UPON ASPIRATION, WITH ONGOING NEPHRO @ 45 ML/HR, WITH RECTAL TUBE IN PLACE. ALL SAFETY PRECAUTION PROVIDED, BED IN LOWEST POSITION, LOCKED. CONTINUE TO MONITOR.
[2022-01-12] MEDS: METRONIDAZOLE 500MG/ NS 100ML 500 MG in PREMIX 1 EA IV SCH ×2 (19:07→23:31)
[2022-01-12] MEDS: DAPTOMYCIN IV SCH (19:41)
[2022-01-12] MEDS: NS 0.9% IV SCH (19:41)
[2022-01-12] MEDS: NOREPINEPHRINE 8 MG in IV NS 0.9% 242 ML IV PRN (20:06)
[2022-01-12] MEDS: LATANOPROST EYE DROP 0.005% 2.5 ML BOTTLE OP SCH (21:44)
[2022-01-13] VITALS (98 sets, daily range): BP systolic 98–147; BP diastolic 39–64
[2022-01-13] MEDS: IPRATROPIUM NEB FS 0.5 MG/2.5 ML AMPUL.NEB NEB SCH ×4 (02:06→19:34)
--- NOTE | 2022-01-13 03:25 | NUR ---
HD SESSION DONE. NO SSx OF ANY DISTRESS NOTED AT THIS TIME
[2022-01-13 04:02] LABS: BASOPHILS % (AUTO) 0.1 % (0.0-2.0); EOSINOPHILS % (AUTO) 0.1 % (0.0-6.0); HEMATOCRIT 21 % (33-45); LYMPHOCYTES # (AUTO) 0.9 K/uL (0.8-4.8); LYMPHOCYTES % (AUTO) 3.2 % (20.0-44.0); MEAN CORPUSCULAR HGB CONC 32 g/dl (31.0-36.0); MEAN CORPUSCULAR VOLUME 96 fL (82-100); MONOCYTES # (AUTO) 0.6 K/uL (0.1-1.30); MONOCYTES % (AUTO) 2.1 % (2.0-12.0); NEUTROPHILS # (AUTO) 27.7 K/uL (1.8-8.9); NEUTROPHILS % (AUTO) 94.5 % (43.0-81.0); PLATELET COUNT (AUTO) 150 K/uL (150-450); RED BLOOD CELL COUNT(AUTO) 2.21 MIL/uL (4.0-5.2); WHITE BLOOD COUNT (AUTO) 29.2 K/uL (4.3-11.0)
[2022-01-13 04:08] LABS: HEMOGLOBIN 6.8 g/dL (11.5-14.8)
[2022-01-13 04:25] LABS: CARBON DIOXIDE 18 mmol/L (21-32); CHLORIDE 99 mmol/L (98-107); CREATININE 2.2 mg/dL (0.6-1.3); GLUCOSE 233 mg/dL (74-106); PHOSPHORUS 6.7 mg/dL (2.5-4.9); POTASSIUM 4.1 mmol/L (3.5-5.1); SODIUM SERUM 133 mmol/L (136-145)
[2022-01-13 04:34] LABS: UREA NITROGEN, BLOOD 130 mg/dL (7-18)
[2022-01-13] MEDS: MIDODRINE HCL (5MG) 5 MG TABLET PO SCH ×3 (04:34→21:12)
[2022-01-13] MEDS: HYDROCORTISONE SOD SUCCINATE 100 MG/2 ML VIAL IV SCH ×3 (04:34→21:14)
[2022-01-13] MEDS: METOCLOPRAMIDE HCL 10 MG/2 ML VIAL IV SCH ×3 (04:34→21:12)
[2022-01-13] MEDS: PHENYTOIN SODIUM IV 100 MG/2ML VIAL IV SCH ×3 (04:34→21:12)
--- NOTE | 2022-01-13 05:11 | NUR ---
REPORTED TO HOSPITALIST ONCALL DR CAREN MAYNARD THAT PT HGB 6.8 HCT 21 WITH ORDER TO TRANSFUSE 1 PRBC WITH HD NOTED AND CARRIED OUT
[2022-01-13 05:16] LABS: BAND % (MANUAL) 3 % (0.0-5.0); LYMPHOCYTES % (MANUAL) 5 % (16-48); MONOCYTES % (MANUAL) 3 % (0-11.0); MYELOCYTES % 1 % (0-0); NEUTROPHILS % (MANUAL) 88 (42-76)
[2022-01-13] MEDS: VANCOMYCIN HCL 125 MG/2.5 ML ORAL.SUSP PO SCH ×3 (05:25→18:17)
[2022-01-13] MEDS: METRONIDAZOLE 500MG/ NS 100ML 500 MG in PREMIX 1 EA IV SCH ×3 (05:25→18:15)
[2022-01-13] MEDS: BLOOD SUGAR DIAGNOSTIC 1 EACH STRIP IN SCH ×3 (05:30→18:10)
[2022-01-13] MEDS: INSULIN REGULAR, HUMAN 100 UNIT/ML 3 ML VIAL SQ PRN ×3 (05:34→18:28)
[2022-01-13] MEDS: NEPRO 1,000 ML BOTTLE GT SCH (07:18)
--- NOTE | 2022-01-13 07:23 | NUR ---
RN NOTES: RECEIVED PT. ASLEEP, NO SSx OF ANY DISTRESS NOTED AT THIS TIME. WILL CONTINUE TO MONITOR PT.
--- NOTE | 2022-01-13 08:28 | NUR ---
AT THE UNIT WAS NOTIFIED RELATED TO REPORT FROM SENIOR INTERNAL AUDITORCOIL WRAPPER THAT PT.'S DAUGHTER REQUESTING ABDOMINAL XRAY FOR PT., DR. LARA NO NEW ORDER NOTED.
--- NOTE | 2022-01-13 08:39 | NUR ---
DR. LARA AT THE UNIT , MADE AWARE RELATED TO BLOOD BANK'S DEPT REPORT FROM [facility]-STAFF RELATED TO PT.'S BLOOD TYPE ANTIBODIES HX, DR. LARA STATED TO SEND THE SPECIMEN TO [facility] FOR TESTING CONFIRMATION AND MD AWARE OF THAT IT WOULD TAKE 24-48HRS FOR THE RESULT,; RN RELAYED THE MD MESSAGE BACK TO [facility]-BLOOD BANK STAFF.
[2022-01-13] MEDS: PANTOPRAZOLE 40 MG/PACK PACK GT SCH (08:49)
[2022-01-13] MEDS: PHENOBARBITAL 30 MG TABLET GT SCH ×2 (09:03→21:12)
[2022-01-13] MEDS: CHLORHEXIDINE GLUCONATE 15 ML UDC MM SCH ×2 (09:03→16:55)
[2022-01-13] MEDS: PROSOURCE / PROSTAT (PYXIS) 30 ML UDC GT SCH ×2 (09:04→16:55)
[2022-01-13] MEDS: DORZOLAMIDE OPTH 2% 10 ML BOTTLE OP SCH ×2 (09:12→17:00)
[2022-01-13] MEDS: DAKINS HALF STRENGTH (0.25%) 480 ML BOTTLE TOP SCH (09:12)
[2022-01-13] MEDS: THERAHONEY GEL 1.5 OZ TUBE TP SCH (09:16)
[2022-01-13] MEDS: IV NS 0.9% 250 ML IV PRN (09:36)
--- NOTE | 2022-01-13 15:25 | NUR ---
RN NOTES: FLAGYL IV DOSE AT 12NOON, UNABLE TO ADMINISTER, PT. ON DIALYSIS FROM 12:25-15:25; PER CHARGE NURSE JUST SKIP THE MISSED 12NOON DOSE AND ADMINISTER THE 1800 SCHEDULED.
[2022-01-13] MEDS: COLISTIMETHATE SODIUM 150 MG in IV NS 0.9% 50 ML IV SCH (18:18)
--- NOTE | 2022-01-13 18:55 | NUR ---
LEFT A MESSAGE TO DR. HUSSEIN RELATED TO PT.'S DAUGHTER REQUEST OF DOCTOR TO CALL THE PT'S SON-ART. AWAITING FOR A RESPONSE. ENDORSED TO SAFETY ADMINISTRATORSUBSCRIPTION CREW LEADER FOR F/U.
--- NOTE | 2022-01-13 18:57 | NUR ---
PT. ASLEEP, NO SIGNIFICANT CHANGES NOTED , ENDORSED TO DELANO FOR CONTINUITY OF CARE.
[2022-01-13] MEDS: NOREPINEPHRINE 8 MG in IV NS 0.9% 242 ML IV PRN (21:22)
[2022-01-13] MEDS: LATANOPROST EYE DROP 0.005% 2.5 ML BOTTLE OP SCH (21:38)
[2022-01-14] VITALS (86 sets, daily range): BP systolic 85–155; BP diastolic 31–65
[2022-01-14] MEDS: VANCOMYCIN HCL 125 MG/2.5 ML ORAL.SUSP PO SCH ×5 (00:41→23:04)
[2022-01-14] MEDS: BLOOD SUGAR DIAGNOSTIC 1 EACH STRIP IN SCH ×5 (00:41→23:43)
[2022-01-14] MEDS: METRONIDAZOLE 500MG/ NS 100ML 500 MG in PREMIX 1 EA IV SCH ×5 (00:41→23:04)
[2022-01-14] MEDS: INSULIN REGULAR, HUMAN 100 UNIT/ML 3 ML VIAL SQ PRN ×5 (00:43→23:43)
[2022-01-14] MEDS: IPRATROPIUM NEB FS 0.5 MG/2.5 ML AMPUL.NEB NEB SCH ×4 (02:26→19:27)
[2022-01-14 04:04] LABS: BASOPHILS % (AUTO) 0.1 % (0.0-2.0); EOSINOPHILS % (AUTO) 0.1 % (0.0-6.0); HEMATOCRIT 22 % (33-45); LYMPHOCYTES # (AUTO) 0.7 K/uL (0.8-4.8); LYMPHOCYTES % (AUTO) 2.2 % (20.0-44.0); MEAN CORPUSCULAR HGB CONC 32 g/dl (31.0-36.0); MEAN CORPUSCULAR VOLUME 95 fL (82-100); MONOCYTES # (AUTO) 0.7 K/uL (0.1-1.30); MONOCYTES % (AUTO) 2.2 % (2.0-12.0); NEUTROPHILS # (AUTO) 28.7 K/uL (1.8-8.9); NEUTROPHILS % (AUTO) 95.4 % (43.0-81.0); PLATELET COUNT (AUTO) 144 K/uL (150-450)
[2022-01-14 04:13] LABS: WHITE BLOOD COUNT (AUTO) 30.1 K/uL (4.3-11.0)
[2022-01-14 04:14] LABS: HEMOGLOBIN 6.9 g/dL (11.5-14.8)
[2022-01-14 04:16] LABS: CARBON DIOXIDE 20 mmol/L (21-32); CHLORIDE 101 mmol/L (98-107); CREATININE 1.8 mg/dL (0.6-1.3); GLUCOSE 205 mg/dL (74-106); PHOSPHORUS 5.2 mg/dL (2.5-4.9); POTASSIUM 3.6 mmol/L (3.5-5.1); SODIUM SERUM 135 mmol/L (136-145)
[2022-01-14 04:21] LABS: BAND % (MANUAL) 2 % (0.0-5.0); LYMPHOCYTES % (MANUAL) 2 % (16-48); MONOCYTES % (MANUAL) 2 % (0-11.0); NEUTROPHILS % (MANUAL) 94 (42-76)
[2022-01-14 04:28] LABS: UREA NITROGEN, BLOOD 99 mg/dL (7-18)
[2022-01-14] MEDS: NEPRO 1,000 ML BOTTLE GT SCH (05:12)
[2022-01-14] MEDS: METOCLOPRAMIDE HCL 10 MG/2 ML VIAL IV SCH ×3 (05:18→21:19)
[2022-01-14] MEDS: HYDROCORTISONE SOD SUCCINATE 100 MG/2 ML VIAL IV SCH ×3 (05:18→21:18)
[2022-01-14] MEDS: PHENYTOIN SODIUM IV 100 MG/2ML VIAL IV SCH ×3 (05:18→21:18)
[2022-01-14] MEDS: MIDODRINE HCL (5MG) 5 MG TABLET PO SCH ×3 (05:18→21:19)
--- NOTE | 2022-01-14 07:30 | NUR ---
REPORT RECEIVED FROM SOILA HERRING. NO SIGNIFICANT EVENTS OVERNIGHT PER REPORT. ALSO PER REPORT ALL DRESSING CHANGES WERE DONE AT 0530 AM TODAY. PT CHECKED ON HOURLY AND PRN BY NURSING STAFF.
[2022-01-14] MEDS ORDERED: MAGNESIUM HYDROXIDE 30 ML UDC GT PRN (08:00)
[2022-01-14] MEDS: CHLORHEXIDINE GLUCONATE 15 ML UDC MM SCH ×2 (09:13→18:04)
[2022-01-14] MEDS: PHENOBARBITAL 30 MG TABLET GT SCH ×2 (09:14→21:19)
[2022-01-14] MEDS: PROSOURCE / PROSTAT (PYXIS) 30 ML UDC GT SCH ×2 (09:14→18:03)
[2022-01-14] MEDS: PANTOPRAZOLE 40 MG/PACK PACK GT SCH (09:14)
[2022-01-14] MEDS: THERAHONEY GEL 1.5 OZ TUBE TP SCH (09:15)
[2022-01-14] MEDS: DORZOLAMIDE OPTH 2% 10 ML BOTTLE OP SCH ×2 (09:15→18:04)
[2022-01-14] MEDS: DAKINS HALF STRENGTH (0.25%) 480 ML BOTTLE TOP SCH (09:15)
[2022-01-14] MEDS: IV NS 0.9% 250 ML IV PRN (09:38)
[2022-01-14] MEDS: CEFTAZIDIME 1 G in IV D5W 50 ML IV SCH (18:00)
[2022-01-14] MEDS: COLISTIMETHATE SODIUM 150 MG in IV NS 0.9% 50 ML IV SCH (18:31)
--- NOTE | 2022-01-14 18:35 | NUR ---
END OF SHIFT NOTE: PT HAD A FAIRLY UNEVENTFUL SHIFT. RECTAL TUBE CAME OUT AT ONE TIME TODAY, WAS REINSERTED, DRESSINGS CHANGED AT THAT TIME. PT'S DAUGHTER VISITED FOR A WHILE TODAY, APPEARED SUPPORTIVE, VERY PLEASANT TOWARD NURSING STAFF. LEVOPHED GTT STOPPED AT 0900 THIS AM,. PT CHECKED ON HOURLY AND PRN BY NURSING STAFF.
--- NOTE | 2022-01-14 19:05 | NUR ---
RECEIVED PATIENT OBTUNDED OPEN EYES TO STIMULI, ON MECHANICAL VENTILATION SETTINGS TOLERATED WELL, RESPIRATORY EVEN AND UNLABORED,NO S/S OF DISTRESS NOTED. TELE MONITOR READS SINUS RHYTHM 70'S, PATIENT HAVE RFEM PICC DRESSING INTACT IN PLACED,PATENT AND FLUSHED PT HAVE GTUBE IN PLACED, VERIFIED PLACEMENT BY AUSCULTATION, WITH RESIDUAL OF 5 ML UPON ASPIRATION, WITH ONGOING NEPHRO @ 45 ML/HR, WITH RECTAL TUBE IN PLACE. ALL SAFETY PRECAUTION PROVIDED, BED IN LOWEST POSITION, LOCKED. CONTINUE TO MONITOR.
[2022-01-14] MEDS: NS 0.9% IV SCH (19:46)
[2022-01-14] MEDS: DAPTOMYCIN IV SCH (19:46)
[2022-01-14] MEDS: LATANOPROST EYE DROP 0.005% 2.5 ML BOTTLE OP SCH (22:00)
[2022-01-15] VITALS (80 sets, daily range): BP systolic 72–148; BP diastolic 31–67
[2022-01-15] MEDS: IPRATROPIUM NEB FS 0.5 MG/2.5 ML AMPUL.NEB NEB SCH ×4 (01:16→19:25)
[2022-01-15 04:12] LABS: EOSINOPHILS % (AUTO) 0.1 % (0.0-6.0); MEAN CORPUSCULAR HGB CONC 32 g/dl (31.0-36.0); MEAN CORPUSCULAR VOLUME 96 fL (82-100); MONOCYTES # (AUTO) 0.6 K/uL (0.1-1.30); MONOCYTES % (AUTO) 2.7 % (2.0-12.0); NEUTROPHILS # (AUTO) 22.5 K/uL (1.8-8.9); NEUTROPHILS % (AUTO) 93.2 % (43.0-81.0); PLATELET COUNT (AUTO) 107 K/uL (150-450); RED BLOOD CELL COUNT(AUTO) 2.12 MIL/uL (4.0-5.2); WHITE BLOOD COUNT (AUTO) 24.1 K/uL (4.3-11.0)
[2022-01-15 04:32] LABS: CALCIUM, SERUM 7.8 mg/dL (8.5-10.1); CARBON DIOXIDE 17 mmol/L (21-32); CHLORIDE 103 mmol/L (98-107); CREATININE 1.9 mg/dL (0.6-1.3); GLUCOSE 229 mg/dL (74-106); PHOSPHORUS 5.3 mg/dL (2.5-4.9); POTASSIUM 3.4 mmol/L (3.5-5.1); SODIUM SERUM 139 mmol/L (136-145)
[2022-01-15] MEDS: NOREPINEPHRINE 8 MG in IV NS 0.9% 242 ML IV PRN (04:33)
[2022-01-15 04:44] LABS: HEMATOCRIT 20 % (33-45); HEMOGLOBIN 6.5 g/dL (11.5-14.8)
[2022-01-15 04:48] LABS: UREA NITROGEN, BLOOD 111 mg/dL (7-18)
[2022-01-15] MEDS: METOCLOPRAMIDE HCL 10 MG/2 ML VIAL IV SCH ×3 (05:03→21:20)
[2022-01-15] MEDS: PHENYTOIN SODIUM IV 100 MG/2ML VIAL IV SCH ×3 (05:03→21:19)
[2022-01-15] MEDS: HYDROCORTISONE SOD SUCCINATE 100 MG/2 ML VIAL IV SCH ×3 (05:03→21:19)
[2022-01-15] MEDS: MIDODRINE HCL (5MG) 5 MG TABLET PO SCH ×3 (05:15→21:19)
[2022-01-15] MEDS: METRONIDAZOLE 500MG/ NS 100ML 500 MG in PREMIX 1 EA IV SCH ×4 (05:15→23:53)
[2022-01-15] MEDS: VANCOMYCIN HCL 125 MG/2.5 ML ORAL.SUSP PO SCH ×4 (05:15→23:53)
--- NOTE | 2022-01-15 05:20 | NUR ---
REPORTED TO DR CAREN MAYNARD ABOUT THE HGB 6.5 AND HCT 20 AND PT BLOOD FOR TRANSFUSION IS STILL PENDING DUE TO PT HAVE ANTIBOTIES ON HER BLOOD AND THE BLOOD BANK SENDING SPECIMEN TO [facility], PER DR FABIAN TRANSFUSE BLOOD ONCE AVAILABLE
[2022-01-15] MEDS: BLOOD SUGAR DIAGNOSTIC 1 EACH STRIP IN SCH ×3 (05:25→17:22)
[2022-01-15] MEDS: INSULIN REGULAR, HUMAN 100 UNIT/ML 3 ML VIAL SQ PRN ×3 (05:37→17:23)
[2022-01-15] MEDS: PROSOURCE / PROSTAT (PYXIS) 30 ML UDC GT SCH ×2 (08:57→16:10)
[2022-01-15] MEDS: PHENOBARBITAL 30 MG TABLET GT SCH ×2 (08:57→21:19)
[2022-01-15] MEDS: PANTOPRAZOLE 40 MG/PACK PACK GT SCH (08:57)
[2022-01-15] MEDS: THERAHONEY GEL 1.5 OZ TUBE TP SCH (08:58)
[2022-01-15] MEDS: DAKINS HALF STRENGTH (0.25%) 480 ML BOTTLE TOP SCH (08:58)
[2022-01-15] MEDS: DORZOLAMIDE OPTH 2% 10 ML BOTTLE OP SCH ×2 (08:58→16:10)
[2022-01-15] MEDS: CHLORHEXIDINE GLUCONATE 15 ML UDC MM SCH ×2 (09:01→16:10)
[2022-01-15] MEDS ORDERED: POTASSIUM CL. PREMIX PERIPHER. 50 ML IV SCH (10:00)
--- NOTE | 2022-01-15 10:15 | NUR ---
HEMODIALYSIS TERMINATED DUE TO PT HD CATH IS CLOGGING PER HD NURSE IT IS VERY HIGH RISK FOR CLOTTING, MADE AWARE PT IS IN STABLE CONDITION V/S CHECKED AND RECORDED WILL CONT TO MONITOR THE PT
--- NOTE | 2022-01-15 11:35 | NUR ---
BLOOD WAS DOORKEEPER TO BLOOD BANK, VERIFICATION OF BLOOD VS THE PT WAS DONE BY 2 NURSES V/S CHECKED AND RECORDED STARTED BLOOD TRANSFUSION @ 60ML/HR WILL INCREASE TOLERATED TO RUN NOT MORE THAN 4 HRS
--- NOTE | 2022-01-15 12:00 | NUR ---
BLOOD TRANSFUSION OF PRBC ONGOING V/S CHECKED AND RECORDED NO SIGN OF SOB OF RESPIRATORY DISTRESS NOTED, NO TRANSFUSION REACTION NOTED WILL CONT TO MONITOR THE PT
[2022-01-15 12:56] LABS: BAND % (MANUAL) 1 % (0.0-5.0); LYMPHOCYTES % (MANUAL) 5 % (16-48); MONOCYTES % (MANUAL) 2 % (0-11.0); NEUTROPHILS % (MANUAL) 92 (42-76)
[2022-01-15] MEDS: NEPRO 1,000 ML BOTTLE GT SCH (13:38)
--- NOTE | 2022-01-15 14:30 | NUR ---
BLOOD TRANSFUION COMPLETED, V/S CHECKED AND RECORDED NO RESPIRATORY DISTRESS NOTED , NO TRANSFUSION REACTION NOTED WILL CONT TO MONITOR THE PT
[2022-01-15] MEDS: IV NS 0.9% 250 ML IV PRN (15:00)
[2022-01-15] MEDS: COLISTIMETHATE SODIUM 150 MG in IV NS 0.9% 50 ML IV SCH (17:12)
[2022-01-15] MEDS: EPOETIN ALFA-EPBX 4,000 UNIT/ML VIAL IV PRN (17:28)
--- NOTE | 2022-01-15 19:35 | NUR ---
RN NOTES RECEIVED PT FOR CONTINUITY OF CARE. PATIENT A/OX0 IN NO S/SX OF ACUTE DISTRESS AT THIS TIME; CURRENTLY ON MECHANICAL VENT; SETTING PRESCRIBED, WITH 02 SAT 100% AT THIS TIME. WITH IV ACCESS ON R FEMORAL PICC PATENT, INTACT AND FLUSHING WELL. PT OFF PRESSORS AT THIS TIME. WITH GTUBE FEEDING RUNNING PRESCRIBED. WILL ENSURE SAFETY MEASURES WITHIN THE SHIFT. PATIENT BED ALARM IS ON. HEAD OF BED ELEVATED. BED IS LOCKED, IN LOWEST POSITION AND SIDE RAILS UP. CALL LIGHT WITHIN REACH OF THE PATIENT. APPLICABLE ISOLATION PRECAUTIONS IN PLACE. WILL CONTINUE TO MONITOR AND REASSESS FOR ANY CHANGES AND WILL CARRY OUT ANY ONGOING AND ACTIVE MD ORDER.
[2022-01-15] MEDS: LATANOPROST EYE DROP 0.005% 2.5 ML BOTTLE OP SCH (21:19)
[2022-01-16] VITALS (24 sets, daily range): BP systolic 80–105; BP diastolic 34–44
[2022-01-16] MEDS: BLOOD SUGAR DIAGNOSTIC 1 EACH STRIP IN SCH ×4 (00:06→18:00)
[2022-01-16] MEDS: INSULIN REGULAR, HUMAN 100 UNIT/ML 3 ML VIAL SQ PRN ×2 (00:09→05:18)
[2022-01-16] MEDS: IPRATROPIUM NEB FS 0.5 MG/2.5 ML AMPUL.NEB NEB SCH ×4 (01:09→20:34)
[2022-01-16] MEDS: VANCOMYCIN HCL 125 MG/2.5 ML ORAL.SUSP PO SCH ×3 (05:07→18:00)
[2022-01-16] MEDS: METRONIDAZOLE 500MG/ NS 100ML 500 MG in PREMIX 1 EA IV SCH ×3 (05:07→18:00)
[2022-01-16] MEDS: MIDODRINE HCL (5MG) 5 MG TABLET PO SCH ×4 (05:08→21:57)
[2022-01-16] MEDS: PHENYTOIN SODIUM IV 100 MG/2ML VIAL IV SCH ×3 (05:09→21:58)
[2022-01-16] MEDS: HYDROCORTISONE SOD SUCCINATE 100 MG/2 ML VIAL IV SCH ×3 (05:09→21:57)
[2022-01-16] MEDS: METOCLOPRAMIDE HCL 10 MG/2 ML VIAL IV SCH ×3 (05:09→21:58)
[2022-01-16 05:15] LABS: BASOPHILS # (AUTO) 0.1 K/uL (0.0-0.2); BASOPHILS % (AUTO) 0.5 % (0.0-2.0); EOSINOPHILS % (AUTO) 0.2 % (0.0-6.0); HEMATOCRIT 24 % (33-45); HEMOGLOBIN 7.9 g/dL (11.5-14.8); LYMPHOCYTES # (AUTO) 1.2 K/uL (0.8-4.8); LYMPHOCYTES % (AUTO) 5.3 % (20.0-44.0); MEAN CORPUSCULAR HGB CONC 32 g/dl (31.0-36.0); MEAN CORPUSCULAR VOLUME 95 fL (82-100); MONOCYTES # (AUTO) 0.8 K/uL (0.1-1.30); MONOCYTES % (AUTO) 3.4 % (2.0-12.0); NEUTROPHILS # (AUTO) 21.2 K/uL (1.8-8.9); NEUTROPHILS % (AUTO) 90.6 % (43.0-81.0); PLATELET COUNT (AUTO) 99 K/uL (150-450); RED BLOOD CELL COUNT(AUTO) 2.58 MIL/uL (4.0-5.2); WHITE BLOOD COUNT (AUTO) 23.5 K/uL (4.3-11.0)
[2022-01-16 05:38] LABS: CALCIUM, SERUM 7.2 mg/dL (8.5-10.1); CARBON DIOXIDE 19 mmol/L (21-32); CHLORIDE 103 mmol/L (98-107); CREATININE 1.9 mg/dL (0.6-1.3); GLUCOSE 156 mg/dL (74-106); MAGNESIUM 1.9 mg/dL (1.8-2.4); PHOSPHORUS 5.2 mg/dL (2.5-4.9); POTASSIUM 3.3 mmol/L (3.5-5.1); SODIUM SERUM 136 mmol/L (136-145)
[2022-01-16 05:44] LABS: UREA NITROGEN, BLOOD 111 mg/dL (7-18)
--- NOTE | 2022-01-16 05:57 | NUR ---
RN NOTES CRITICAL LAB RECEIVED : BUN 111,WILL ENDORSE TO AM SHIFT. TELECOMMUNICATIONS CABLE JOINTER WELL AWARE.
--- NOTE | 2022-01-16 06:49 | NUR ---
RN CLOSING NOTE: PATIENT REMAINS IN ROOM IN NO SIGNS OF RESPIRATORY DISTRESS, PATIENT STILL ON MECH VENT; SETTINGS PRESCRIBED;TOLERATING WELL SATURATING @ >95% SP02. SAFETY MEASURES IMPLEMENTED, BED IN LOWEST POSITION, LOCKED, SIDE RAILS UP, CALL LIGHT WITHIN REACH. ALL NEEDS AND ORDERS ADDRESSED DURING THE SHIFT. IV ACCESS MAINTAINED INTACT, SECURED AND FLUSHING WELL. ALL DUE MEDS GIVEN ORDERED & SCHEDULED ; PATIENT TOLERATED WELL. PT STILL OFF PRESSORS; ABLE TO MAINTAIN SBP >80. ALSO HAS ON GOING TUBE FEEDING PRESCRIBED; TOLERATED WELL. PATIENT KEPT CLEAN AND COMFORTABLE WITHIN THE SHIFT. PATIENT ENDORSED TO INCOMING SHIFT RN FOR CONTINUITY OF CARE.
[2022-01-16 07:28] LABS: LYMPHOCYTES % (MANUAL) 6 % (16-48); MONOCYTES % (MANUAL) 2 % (0-11.0); NEUTROPHILS % (MANUAL) 92 (42-76)
--- NOTE | 2022-01-16 07:30 | NUR ---
OPENING NOTE: REPORT RECEIVED FROM DARIA HERRING. NO SIGNIFICANT CHANGES OVERNIGHT PER REPORT. ALL DRESSING CHANGES DONE THIS AM DURING BATH PER REPORT. PT REMAINS OFF LEVOPHED SINCE YESTERDAY AFTERNOON. PT CHECKED ON HOURLY AND PRN BY NURSING STAFF.
[2022-01-16] MEDS: PHENOBARBITAL 30 MG TABLET GT SCH ×2 (08:40→21:56)
[2022-01-16] MEDS: CHLORHEXIDINE GLUCONATE 15 ML UDC MM SCH ×2 (08:40→16:58)
[2022-01-16] MEDS: PANTOPRAZOLE 40 MG/PACK PACK GT SCH (08:40)
[2022-01-16] MEDS: PROSOURCE / PROSTAT (PYXIS) 30 ML UDC GT SCH ×2 (08:42→16:57)
[2022-01-16] MEDS: DAKINS HALF STRENGTH (0.25%) 480 ML BOTTLE TOP SCH (08:44)
[2022-01-16] MEDS: DORZOLAMIDE OPTH 2% 10 ML BOTTLE OP SCH ×2 (08:44→17:00)
[2022-01-16] MEDS: THERAHONEY GEL 1.5 OZ TUBE TP SCH (08:44)
--- NOTE | 2022-01-16 09:41 | NUR ---
PT TRANSPORTED TO ROOM 114-1 VIA BED WITH RT AND RN AT BEDSIDE USING ACLS PROTOCOL. BEDSIDE REPORT GIVEN TO LIANG RN. ALL BELONGINGS AND MEDS SENT WITH PATIENT. PT SETTLED IN NEW ROOM. LIANG RN AT BEDSIDE WHEN EDGER AUTOMATIC LEFT THE ROOM.
--- NOTE | 2022-01-16 10:10 | NUR ---
patient received to room 114-1 non verbal vent /trach. FIO2 30% TV 500 AC 14 daughter at bed side vitals taken and recorded b/p 95/[address] will continue to assess and evaluate . update patient s condition to daughter
[2022-01-16] MEDS: ALBUMIN 25% 25 GM in PREMIX 1 EA IV PRN (11:46)
[2022-01-16] MEDS ORDERED: ALTEPLASE CATHFLO 2 MG/VIAL XX ONE (14:00)
--- NOTE | 2022-01-16 15:28 | NUR ---
RECEIVED PT FROM ICU, DIALYSIS ORDERED, 500 ML REMOVED , TRACH INTACT FIO2 30%, TV 500AC 14 AND DAUGHTER IS IN ROOM , RECTAL TUBE IN PLACE, G-TUBE INTACT FLUSHING AND INPLACE, NO SOB NOTED, NO ADVERSE SIDE EFFECTS NOTED, B/P LOW 84-95 SYSTOLIC RANGE AND DIASTOLIC RANGE FLUCTUATES BETWEEN 34-38 RANGE, MEDICATIONS ON ORDER DURING DIAYLSIS HELD DUE TO DIALYSIS, WILL CONTINUE MEDICATION CARE ONCE DIALYSIS IS COMPLETD.
[2022-01-16] MEDS: CEFTAZIDIME 1 G in IV D5W 50 ML IV SCH (16:58)
[2022-01-16] MEDS: COLISTIMETHATE SODIUM 150 MG in IV NS 0.9% 50 ML IV SCH (18:00)
--- NOTE | 2022-01-16 18:45 | NUR ---
PT GEN SEAL FOR FECES FELL OUT OF ANUS HOLE AND ANUS SHOWS S/S OF IRRITATION, SLIGHT BLEEDING AND REDNESS NOTED, VERY TENDER TO TOUCH, AT THIS TIME TO ELIMINATE SKIN IRRITATIN OR INFECTION ADVISED TO PLACE PT IN BRIEFS AND USE CHUCKS FOR VOID AND FECES, EXPLAINED TO DAUGHTER FOR RIGHT NOW WE WILL ALLOW ANUS AND GEN AREA TO AIR DRY OUT AND TRY TO AVOID FURTHER IRRITATION AT THIS TIME, TRACH INTACT FIO2 30%, TV 500AC 14 AND DAUGHTER IS IN ROOM PRESENT AND AWARE OF SITUATION, G-TUBE INTACT FLUSHING AND INPLACE, NO SOB NOTED, NO ADVERSE SIDE EFFECTS NOTED, B/P LOW 82-94 SYSTOLIC RANGE AND DIASTOLIC RANGE FLUCTUATES BETWEEN 32-38 RANGE, NO ADVERSE SIDE EFFECTS NOTED FROM ABT OR ANY OTHER AT THIS TIME, PATIENT GIVEN BED BATH, CLEANED, GEN AREA CLEANED AND GEN SEAL ANAL TUBE REMOVED DUE TO IT HAD FALLEN OUT OF AREA AND WAS NOT SAFE DUE TO INFECTION CONTROL TO REPLACE AT THIS TIME, AREA WILL AIR DRY AND RELAX FROM ANY SKIN PRESSURE OF THESE DEVICES AT THIS TIME DUE TO IRRITATION AND SLIGHT BLEEDING NOTED. FAMILY AND DOUGHMAKER RN AWARE.
[2022-01-16] MEDS: NS 0.9% IV SCH (19:00)
[2022-01-16] MEDS: DAPTOMYCIN IV SCH (19:00)
--- NOTE | 2022-01-16 19:40 | NUR ---
RN NOTES RECEIVED PT FOR CONTINUITY OF CARE. PATIENT A/OX0 IN NO S/SX OF ACUTE DISTRESS AT THIS TIME; CURRENTLY ON MECHANICAL VENT; SETTING PRESCRIBED, WITH 02 SAT 100% AT THIS TIME. WITH IV ACCESS ON R FEMORAL PICC PATENT, INTACT AND FLUSHING WELL. WITH GTUBE FEEDING RUNNING PRESCRIBED, NO RESIDUAL AT THIS TIME. RECEIVED WIT NO FLEXISEAL,WILL TRY REINSERTION WITHIN THE SHIFT. WILL ENSURE SAFETY MEASURES WITHIN THE SHIFT. PATIENT BED ALARM IS ON. HEAD OF BED ELEVATED. BED IS LOCKED, IN LOWEST POSITION AND SIDE RAILS UP. CALL LIGHT WITHIN REACH OF THE PATIENT. APPLICABLE ISOLATION PRECAUTIONS IN PLACE. WILL CONTINUE TO MONITOR AND REASSESS FOR ANY CHANGES AND WILL CARRY OUT ANY ONGOING AND ACTIVE MD ORDER.
[2022-01-16] MEDS ORDERED: DOPamine 400 MG in IV D5W 250 ML IV PRN ×4 (20:00)
[2022-01-16] MEDS: LATANOPROST EYE DROP 0.005% 2.5 ML BOTTLE OP SCH (21:58)
[2022-01-16] MEDS: NEPRO 1,000 ML BOTTLE GT SCH (22:24)
[2022-01-17] VITALS (7 sets, daily range): BP systolic 81–115; BP diastolic 35–55
--- NOTE | 2022-01-17 | NUR ---
RN NOTES NO NOTED RESIDUAL FROM THE PT'S FEEDING VIA GTUBE, BUT + ORAL SECRETION WITH FEEDING CONSISTENCY. FEEDING TURN OFF AT THIS TIME. V/S WNL, BREATHING REMAIN NON LABORED. UTILITY MECHANIC SUPERVISOR MADE AWARE AND ONCERYN CONDE (DR. FABIAN) MADE AWARE AND ACKNOWLEDGED. WILL CONTINUE TO ASSESS AND MONITOR. THROUGHOUT THE SHIFT.
[2022-01-17] MEDS: VANCOMYCIN HCL 125 MG/2.5 ML ORAL.SUSP PO SCH ×4 (00:36→17:34)
[2022-01-17] MEDS: METRONIDAZOLE 500MG/ NS 100ML 500 MG in PREMIX 1 EA IV SCH ×4 (00:36→17:34)
[2022-01-17] MEDS: BLOOD SUGAR DIAGNOSTIC 1 EACH STRIP IN SCH ×4 (00:40→18:17)
[2022-01-17] MEDS: INSULIN REGULAR, HUMAN 100 UNIT/ML 3 ML VIAL SQ PRN ×2 (00:42→05:59)
[2022-01-17] MEDS: IPRATROPIUM NEB FS 0.5 MG/2.5 ML AMPUL.NEB NEB SCH ×4 (03:55→20:28)
[2022-01-17] MEDS: MIDODRINE HCL (5MG) 5 MG TABLET PO SCH ×3 (05:34→21:14)
[2022-01-17] MEDS: PHENYTOIN SODIUM IV 100 MG/2ML VIAL IV SCH ×3 (05:35→21:15)
[2022-01-17] MEDS: METOCLOPRAMIDE HCL 10 MG/2 ML VIAL IV SCH ×3 (05:35→21:14)
[2022-01-17] MEDS: HYDROCORTISONE SOD SUCCINATE 100 MG/2 ML VIAL IV SCH ×3 (05:35→21:14)
--- NOTE | 2022-01-17 06:38 | NUR ---
RN CLOSING NOTE: PATIENT REMAINS IN ROOM IN NO SIGNS OF RESPIRATORY DISTRESS, PATIENT STILL ON MECH VENT; SETTINGS PRESCRIBED;TOLERATING WELL SATURATING @ >95% SP02. SBP MAINTAINED >80 ALL THROUGHOUT THE SHIFT. FEEDING HELD AT THIS TIME. FLEXISEAL PLACED; SECURED, PATENT AND INTACT. SAFETY MEASURES IMPLEMENTED, BED IN LOWEST POSITION, LOCKED, SIDE RAILS UP, CALL LIGHT WITHIN REACH. ALL NEEDS AND ORDERS ADDRESSED DURING THE SHIFT. IV ACCESS MAINTAINED INTACT, SECURED AND FLUSHING WELL. ALL DUE MEDS GIVEN ORDERED & SCHEDULED ; PATIENT TOLERATED WELL.OL PATIENT KEPT CLEAN AND COMFORTABLE WITHIN THE SHIFT. PATIENT ENDORSED TO INCOMING SHIFT RN WITH STABLE VITAL SIGN AND FOR CONTINUITY OF CARE.
--- NOTE | 2022-01-17 07:35 | NUR ---
BRITTANY RN NOTES: RECEIVED PATIENT ON BED, OBTUNDED. ON MECHANICAL VENTILATION SETTINGS TOLERATED WELL. RESPIRATORY EVEN AND UNLABORED, NO SOB NOTED. REMAIN AFEBRILE. NO S/S OF DISTRESS NOTED. NOTED WITH RIGHT FEMORAL PICC LINE INTACT PATENT, FLUSHED WITH NS. NO INFILTRATION NOTED AT SITE. RIGHT SUBCLAVIAN HD CATHETER, NO BLEEDING AT SITE. G-TUBE INPLACE, INTACT. VERIFIED PLACEMENT VIA AUSCULTATION, . NO RESIDUAL NOTED UPON ASPIRATION, FEEDING ON HOLD TILL CHEST X RAY DONE ORDERED.-. KEEP HEAD OF BED ELEVATED. SAFETY MEASURE PROVIDED. BED IN LOWEST POSITION, LOCKED. BED ALARM ARMED. CONTINUE TO MONITOR.
[2022-01-17] MEDS: ALBUMIN 25% 25 GM in PREMIX 1 EA IV PRN (08:20)
[2022-01-17] MEDS: PANTOPRAZOLE 40 MG/PACK PACK GT SCH (09:35)
[2022-01-17] MEDS: PHENOBARBITAL 30 MG TABLET GT SCH ×2 (09:36→21:13)
[2022-01-17] MEDS: CHLORHEXIDINE GLUCONATE 15 ML UDC MM SCH ×2 (09:36→17:33)
[2022-01-17] MEDS: THERAHONEY GEL 1.5 OZ TUBE TP SCH (09:38)
[2022-01-17] MEDS: PROSOURCE / PROSTAT (PYXIS) 30 ML UDC GT SCH ×2 (09:38→17:13)
[2022-01-17] MEDS: DAKINS HALF STRENGTH (0.25%) 480 ML BOTTLE TOP SCH (09:38)
[2022-01-17] MEDS: DORZOLAMIDE OPTH 2% 10 ML BOTTLE OP SCH ×2 (09:42→17:13)
--- NOTE | 2022-01-17 11:00 | NUR ---
RN NOTES: DIALYSIS COMPLETED, PER DIALYSIS NURSE BP REMAIN STABLE WITH 1.5 .LITER OUT,DAUGHTER AT BEDSIDE MADE AWARE
--- NOTE | 2022-01-17 15:57 | NUR ---
RN NOTES: PROVIDED CARE FOR PATIENT, RECTAL TUBE DISLODGED, REPLACED NO bm NOTED AT THIS TIME, SCRAL WOUND CARE AND BACK WOUND CARE DONE,ALSO NOTED WITH gt SITE WOUND SPOKE TO DR BEACH WITH ORDER OF WOUND CONSULT, WILL MONITOR THE PATIOENT
[2022-01-17] MEDS: COLISTIMETHATE SODIUM 150 MG in IV NS 0.9% 50 ML IV SCH (17:13)
--- NOTE | 2022-01-17 19:41 | NUR ---
ALFREDO RN CLOSING NOTES: PATIENT REMAINS IN ROOM IN NO SIGNS OF RESPIRATORY DISTRESS, PATIENT STILL ON MECH VENT; SETTINGS PRESCRIBED;TOLERATING WELL SATURATING @ >95% SP02. SBP MAINTAINED >80 all shift,FLEXISEAL PLACED; SECURED, PATENT AND INTACT. SAFETY MEASURES IMPLEMENTED, BED IN LOWEST POSITION, LOCKED, SIDE RAILS UP, CALL LIGHT WITHIN REACH. ALL NEEDS AND ORDERS ADDRESSED DURING THE SHIFT.right femoral picc line IV ACCESS MAINTAINED INTACT, SECURED AND FLUSHING WELL. ALL DUE MEDS GIVEN ORDERED & SCHEDULED ; PATIENT TOLERATED WELL.OL PATIENT KEPT CLEAN AND COMFORTABLE WITHIN THE SHIFT. PATIENT ENDORSED TO INCOMING SHIFT RN WITH STABLE VITAL SIGN AND FOR CONTINUITY OF CARE.
[2022-01-17] MEDS: LATANOPROST EYE DROP 0.005% 2.5 ML BOTTLE OP SCH (21:25)
[2022-01-18] VITALS: BP 109/53
[2022-01-18] MEDS: BLOOD SUGAR DIAGNOSTIC 1 EACH STRIP IN SCH ×4 (00:04→17:36)
[2022-01-18] MEDS: METRONIDAZOLE 500MG/ NS 100ML 500 MG in PREMIX 1 EA IV SCH ×4 (00:04→18:20)
[2022-01-18] MEDS: VANCOMYCIN HCL 125 MG/2.5 ML ORAL.SUSP PO SCH ×4 (00:04→17:50)
--- NOTE | 2022-01-18 00:35 | NUR ---
RN NOTE CALLED BRICK AND TILE MAKING MACHINE OPERATOR DR. CAREN MAYNARD TO NOTIFY HIM THAT PATIENT IS ON GTUBE FEEDING RUNNING NEPRO@45ML. WAS INFORMED BY DAY SHIFT THAT PATIENT HAS FEEDING COMING OUT OF HER MOUTH WHEN LAYING. RESIDUAL AT BEGINNING OF SHIFT WAS 300ML. FEEDING HELD. 0000 RESIDUAL CHECKED NOW 400ML. BLOOD SUGAR CHECK 146. FOR THIS BLOOD SUGAR IT WOULD BE 2 UNIT PER SLIDING SCALE RECEIVED ORDER FROM DR. FABIAN TO CONTINUE TO HOLD FEEDING AND TO HOLD INSULIN DOSE. READ BACK NOTED AND CARRIED OUT.
[2022-01-18] MEDS: INSULIN REGULAR, HUMAN 100 UNIT/ML 3 ML VIAL SQ PRN ×2 (00:40→05:57)
[2022-01-18] MEDS: IPRATROPIUM NEB FS 0.5 MG/2.5 ML AMPUL.NEB NEB SCH ×4 (01:56→20:04)
[2022-01-18 04:00] VITALS: BP 115/41
[2022-01-18] MEDS: HYDROCORTISONE SOD SUCCINATE 100 MG/2 ML VIAL IV SCH ×3 (05:21→21:00)
[2022-01-18] MEDS: MIDODRINE HCL (5MG) 5 MG TABLET PO SCH ×3 (05:22→22:06)
[2022-01-18] MEDS: METOCLOPRAMIDE HCL 10 MG/2 ML VIAL IV SCH ×3 (05:23→21:00)
[2022-01-18] MEDS: PHENYTOIN SODIUM IV 100 MG/2ML VIAL IV SCH ×3 (05:24→21:00)
--- NOTE | 2022-01-18 07:30 | NUR ---
TD RN AM NOTE RECEIVED PATIENT IN BED, OBTUNDED, WITH PORTEX 7 TO MECHANICAL VENT AC 14 TV 500 FIO2 30 PEEP 0 SATING 100. NO DISTRESS, BREATHING EVEN AND UNLABORED, SR,HR 76 ON MONITOR, NO GRIMACINGS/SIGNS OF PAIN, RIGHT CHEST WALL PERM-CATH FOR HD, CDI DRESSING, RT FEMORAL PICC LINE, DRESSINGS CHANGED, FLUSHES WELL, BOTH SITES CLEAR.GTF NEPRO AT 45 ML/HR - HELD, CHECKED FOR PLACEMENT, 175 RESIDUAL, MD AWARE, GT ON HOLD. RECTAL TUBE IN PLACE, WILL IRRIGATE LATER. O OUTPUT. PT HAS MULTIPLE WOUNDS ON SACRUM AND LEFT/RIGHT HIPS. REFER TO NURSING FLOWSHEET/ASSESSMENT. WILL DO PRESCRIBED WOUND TREATMENT IN A WHILE. TURN AND REPOSITION Q 2 HOURS. OFF LOADING, ALL SAFETY MEASURES IMPLEMENTED, BED IN LOW POSITION AND KEPT HEAD OF BED ELEVATED. CALL LIGHT WITHIN REACH. WILL CONTINUE TO MONITOR.
--- NOTE | 2022-01-18 07:46 | NUR ---
RN CLOSING NOTE PATIENT IS OBTUNDED. ON MECHANICAL VENT. NO CHANGES IN SETTINGS. NO RESPIRATORY DISTRESS. NO S/S PAIN NOTED. SINUS RHYTHM ON THE MONITOR. ADMINISTERED ABX ORDERED. WOUND CARE DONE ORDERED. PHOTOS TAKEN AND PLACED IN CHART. NEPRO FEEDING HELD AT BEGINNING OF SHIFT D/T HIGH RESIDUAL. NO INSULIN GIVEN D/T HELD FEEDING. NO S/S HYPOGLYCEMIA. NO HYPOTENSION. PENDING HD, WOUND CONSULT. SAFETY MEASURES IN PLACE.
[2022-01-18 08:00] VITALS: BP 105/52
[2022-01-18] MEDS: PANTOPRAZOLE 40 MG/PACK PACK GT SCH (08:57)
[2022-01-18] MEDS: PHENOBARBITAL 30 MG TABLET GT SCH ×2 (08:57→21:00)
[2022-01-18] MEDS: CHLORHEXIDINE GLUCONATE 15 ML UDC MM SCH ×2 (08:58→16:48)
[2022-01-18] MEDS: PROSOURCE / PROSTAT (PYXIS) 30 ML UDC GT SCH ×2 (08:58→16:50)
[2022-01-18] MEDS: DAKINS HALF STRENGTH (0.25%) 480 ML BOTTLE TOP SCH (08:59)
[2022-01-18] MEDS: THERAHONEY GEL 1.5 OZ TUBE TP SCH (08:59)
[2022-01-18] MEDS: DORZOLAMIDE OPTH 2% 10 ML BOTTLE OP SCH ×2 (08:59→16:49)
--- NOTE | 2022-01-18 09:30 | NUR ---
RN NOTES DUE MEDS GIVEN
--- NOTE | 2022-01-18 10:13 | NUR ---
WOUND CARE CONSULT: PT SEEN FOR RT ARM SKIN TEAR AND G TUBE SITE WOUND. THERE IS DISCOLORATION AROUND G TUBE STOMA WITH OPEN WOUND. DISCUSSED WITH SURGICAL TEAM CURRENTLY ON CASE. DEFER TO SURGICAL TEAM.
[2022-01-18 10:55] LABS: CALCIUM, SERUM 7.8 mg/dL (8.5-10.1); CARBON DIOXIDE 18 mmol/L (21-32); CHLORIDE 104 mmol/L (98-107); CREATININE 1.4 mg/dL (0.6-1.3); GLUCOSE 108 mg/dL (74-106); POTASSIUM 3.3 mmol/L (3.5-5.1); SODIUM SERUM 135 mmol/L (136-145); UREA NITROGEN, BLOOD 77 mg/dL (7-18)
[2022-01-18 12:00] VITALS: BP 94/43
--- NOTE | 2022-01-18 14:37 | NUR ---
BRITTANY RN AM NOTE RECEIVED PATIENT IN BED, OBTUNDED, WITH PORTEX 7 TO MECHANICAL VENT AC 14 TV 500 FIO2 30 PEEP 0 SATING 100. NO DISTRESS, BREATHING EVEN AND UNLABORED, SR,HR 76 ON MONITOR, NO GRIMACINGS/SIGNS OF PAIN, RIGHT CHEST WALL PERM-CATH FOR HD, CDI DRESSING, RT FEMORAL PICC LINE, DRESSINGS CHANGED, FLUSHES WELL, BOTH SITES CLEAR.GTF NEPRO AT 45 ML/HR - HELD, CHECKED FOR PLACEMENT, 175 RESIDUAL, RECTAL TUBE IN PLACE, WILL IRRIGATE LATER. O OUTPUT. PT HAS MULTIPLE WOUNDS ON SACRUM AND LEFT/RIGHT HIPS. REFER TO NURSING FLOWSHEET/ASSESSMENT. WILL DO PRESCRIBED WOUND TREATMENT IN A WHILE. TURN AND REPOSITION Q 2 HOURS. OFF LOADING, ALL SAFETY MEASURES IMPLEMENTED, BED IN LOW POSITION AND KEPT HEAD OF THE BED ELEVATED. CALL LIGHT WITHIN REACH. WILL CONTINUE TO MONITOR. Addendum: 01/18/22 at 1442 by MELISSA LOCO RN CORRECTION TIME SHOULD BE 0730
[2022-01-18 16:00] VITALS: BP 109/55
[2022-01-18] MEDS: CEFTAZIDIME 1 G in IV D5W 50 ML IV SCH (16:49)
[2022-01-18] MEDS: IV NS 0.9% 250 ML IV PRN (16:53)
[2022-01-18] MEDS: COLISTIMETHATE SODIUM 150 MG in IV NS 0.9% 50 ML IV SCH (17:43)
[2022-01-18] MEDS: NS 0.9% IV SCH (18:44)
[2022-01-18] MEDS: DAPTOMYCIN IV SCH (18:44)
--- NOTE | 2022-01-18 18:58 | NUR ---
TD RN CLOSING NOTE PATIENT IN BED, RESTING, DAUGHTER AT BEDSIDE. OBTUNDED, WITH PORTEX 7 TO MECHANICAL VENT AC 14 TV 500 FIO2 30 PEEP 0 SATING 100. NO DISTRESS, BREATHING EVEN AND UNLABORED, SR,HR 76 ON MONITOR, NO GRIMACINGS/SIGNS OF PAIN, RIGHT CHEST WALL PERM-CATH FOR HD, CDI DRESSING, RT FEMORAL PICC LINE, DRESSINGS CHANGED, FLUSHES WELL, BOTH SITES CLEAR.GTF NEPRO AT 20 ML/HR - CHECKED FOR PLACEMENT, 40 ML RESIDUAL. RECTAL TUBE IN PLACE, IRRIGATED EARLIER. 500 ML OUTPUT. PT HAS MULTIPLE WOUNDS ON SACRUM AND LEFT/RIGHT HIPS. PRESCRIBED WOUND TREATMENT DONE AND PM CARE DONE. TURNED AND REPOSITIONED Q 2 HOURS. OFF LOADING, ALL SAFETY MEASURES IMPLEMENTED, BED IN LOW POSITION AND KEPT HEAD OF BED ELEVATED. CALL LIGHT WITHIN REACH. ALL NEEDS MET. TURNED AND REPOSITIONED Q 2H OURS. WILL ENDORSE TO NEXT SHIFT FOR OITS.
[2022-01-18 20:00] VITALS: BP 100/40
--- NOTE | 2022-01-18 21:45 | NUR ---
PATIENT STARTING HD AT THIS TIME, BLOOD PRESSURE AT THIS TIME 100/39, MIDODRINE GIVEN, ALBUMIN WILL BE ADMINISTER BY HD NURSE, WILL CONTINUE TO MONITOR CLOSELY.
[2022-01-18] MEDS: LATANOPROST EYE DROP 0.005% 2.5 ML BOTTLE OP SCH (22:00)
[2022-01-18] MEDS: ALBUMIN 25% 25 GM in PREMIX 1 EA IV PRN (22:02)
[2022-01-19] VITALS: BP 92/48
[2022-01-19] MEDS: BLOOD SUGAR DIAGNOSTIC 1 EACH STRIP IN SCH ×5 (00:40→23:25)
[2022-01-19] MEDS: INSULIN REGULAR, HUMAN 100 UNIT/ML 3 ML VIAL SQ PRN ×3 (00:41→15:09)
--- NOTE | 2022-01-19 01:00 | NUR ---
HD DONE AT THIS ANABELL,E WITH BP WNL, MAINTAINING BLOOD PRESSURE, PATIENT TOLERATED WELL.
[2022-01-19] MEDS: METRONIDAZOLE 500MG/ NS 100ML 500 MG in PREMIX 1 EA IV SCH ×5 (01:10→17:53)
[2022-01-19] MEDS: VANCOMYCIN HCL 125 MG/2.5 ML ORAL.SUSP PO SCH ×4 (01:10→17:21)
[2022-01-19] MEDS: IPRATROPIUM NEB FS 0.5 MG/2.5 ML AMPUL.NEB NEB SCH ×4 (01:26→19:43)
[2022-01-19 04:00] VITALS: BP 103/49
[2022-01-19] MEDS: HYDROCORTISONE SOD SUCCINATE 100 MG/2 ML VIAL IV SCH ×3 (05:46→17:21)
[2022-01-19] MEDS: METOCLOPRAMIDE HCL 10 MG/2 ML VIAL IV SCH ×3 (05:46→21:59)
[2022-01-19] MEDS: MIDODRINE HCL (5MG) 5 MG TABLET PO SCH ×3 (05:46→22:02)
[2022-01-19] MEDS: PHENYTOIN SODIUM IV 100 MG/2ML VIAL IV SCH ×3 (05:47→22:00)
[2022-01-19 07:08] LABS: BASOPHILS % (AUTO) 0.1 % (0.0-2.0); EOSINOPHILS % (AUTO) 0.9 % (0.0-6.0); HEMATOCRIT 24 % (33-45); HEMOGLOBIN 7.6 g/dL (11.5-14.8); LYMPHOCYTES # (AUTO) 1.8 K/uL (0.8-4.8); LYMPHOCYTES % (AUTO) 8.2 % (20.0-44.0); MEAN CORPUSCULAR HGB CONC 32 g/dl (31.0-36.0); MEAN CORPUSCULAR VOLUME 97 fL (82-100); MONOCYTES # (AUTO) 1.1 K/uL (0.1-1.30); MONOCYTES % (AUTO) 4.8 % (2.0-12.0); NEUTROPHILS # (AUTO) 19.1 K/uL (1.8-8.9); PLATELET COUNT (AUTO) 130 K/uL (150-450); RED BLOOD CELL COUNT(AUTO) 2.48 MIL/uL (4.0-5.2); WHITE BLOOD COUNT (AUTO) 22.2 K/uL (4.3-11.0)
--- NOTE | 2022-01-19 07:20 | NUR ---
REPORT GIVEN TO JACQUELIN HERRING FOR CONTINUATION OF CARE.
--- NOTE | 2022-01-19 07:37 | NUR ---
RN CLOSING NOTES PATIENT OBTUNDED, CONT ON MECHANICAL VENTILATOR, NO SOB/ACUTE DISTRESS, SR HR 6-70S DURING THE NIGHT, WOUND TX DONE, HD LAST NIGHT, MAINTAINING BLOOD PRESSURE WNL, SAFETY MEASURES IN PLACED, UPDATE GIVEN TO DAUGHTER OVER THE PHONE BUTTON RECLAIMER, BED ON LOWEST LOCKED POSITION, SIDE RAILS UP X2, WILL ENDORSE CONTINUITY OF CARE TO ONCOMING NURSE.
[2022-01-19 08:00] VITALS: BP 118/52
--- NOTE | 2022-01-19 08:00 | NUR ---
RN OPENING NOTE PATIENT RECEIVED IN BED, OBTUNDED. PATIENT ON MECHANICAL VENTILATOR WITH NO SIGNS OF LABORED BREATHING AT THIS TIME. FLEXI SEAL IN PLACE. G TUBE IN PLACE RUNNING NEPRO AT 30CC/HR, GOAL TO INCREASE TO 45CC/HR. RIGHT FEMORAL PICC LINE AND RIGHT CW PERMACATH IN PLACE. BP STABLE AT 98/48. NO SIGNS OF ACUTE DISTRESS NOTED. BED LOCKED AND IN LOWEST POSITION, CALL LIGHT WITHIN REACH, 2 SIDE RAILS UP. WILL CONTINUE TO MONITOR.
[2022-01-19] MEDS: DAKINS HALF STRENGTH (0.25%) 480 ML BOTTLE TOP SCH (09:26)
[2022-01-19] MEDS: THERAHONEY GEL 1.5 OZ TUBE TP SCH (09:26)
[2022-01-19] MEDS: DORZOLAMIDE OPTH 2% 10 ML BOTTLE OP SCH ×2 (09:27→17:22)
--- NOTE | 2022-01-19 09:30 | NUR ---
RN NOTE PATIENT TURNED AND REPOSITIONED. WILL CONTINUE TO MONITOR.
--- NOTE | 2022-01-19 09:30 | NUR ---
RN NOTE PATIENT ORAL SUCTIONED, MOUTH CLEANED WITH CHLORHEXIDINE MOUTH WASH ORDERED. FACE CLEANED AND WASHED BY VENKAT ALLEN.
[2022-01-19] MEDS: PHENOBARBITAL 30 MG TABLET GT SCH ×2 (09:33→22:00)
[2022-01-19] MEDS: PANTOPRAZOLE 40 MG/PACK PACK GT SCH (09:33)
[2022-01-19] MEDS: CHLORHEXIDINE GLUCONATE 15 ML UDC MM SCH ×2 (09:33→17:21)
[2022-01-19] MEDS: PROSOURCE / PROSTAT (PYXIS) 30 ML UDC GT SCH ×2 (09:33→17:22)
--- NOTE | 2022-01-19 11:30 | NUR ---
RN NOTE KANDI PARKS AT BEDSIDE TO SEE GTUBE WOUND WITH NECROTIC TISSUE. RECOMMENDS GI CONSULT.
--- NOTE | 2022-01-19 11:45 | NUR ---
RN NOTE PATIENT TURNED AND REPOSITIONED. WASHCLOTH PLACED BETWEEN PATIENT'S LEG CHANGED BY VENKAT ALLEN.
[2022-01-19 12:00] VITALS: BP 123/52
--- NOTE | 2022-01-19 12:00 | NUR ---
RN NOTE PATIENT HAS A WOUND WITH NECROTIC TISSUE AROUND GTUBE. LAW PROFESSOR NOWAK AT BEDSIDE. ORDER TO HOLD FEEDING FOR NOW AND TO ORDER A GI CONSULT.
--- NOTE | 2022-01-19 12:15 | NUR ---
RN NOTE HIGH RESIDUAL NOTED. TUBE FEEDING HELD PER ORDER. 180CC RESIDUAL TAKEN OUT AND DISCARDED.
--- NOTE | 2022-01-19 13:31 | NUR ---
ALFREDO RN NOTE CALLED TO DR GEOFFREY JERNIGAN ,NOTIFIED THAT PATIENT HAS GI CONSULT FOR G TUBE STOMA WOUND AND HIGH RESIDUAL, STATED THAT WILL COME WHEN HAVE CHANCE
--- NOTE | 2022-01-19 14:30 | NUR ---
RN NOTE PATIENT TURNED AND REPOSITIONED. WILL CONTINUE TO MONITOR.
[2022-01-19] MEDS: ALBUMIN 25% 25 GM in PREMIX 1 EA IV PRN (15:09)
[2022-01-19 16:00] VITALS: BP 111/42
--- NOTE | 2022-01-19 16:49 | NUR ---
RN NOTE INSULIN HELD PER DAUGHTER REQUEST.
--- NOTE | 2022-01-19 17:00 | NUR ---
RN NOTE PATIENT TURNED AND REPOSITIONED. WOUND CARE PERFORMED EARLIER TODAY. DAUGHTER AT BEDSIDE.
--- NOTE | 2022-01-19 17:50 | NUR ---
RN NOTE HD COMPLETED. BP STABLE. NO FLUID REMOVED.
--- NOTE | 2022-01-19 18:20 | NUR ---
RN NOTE PICC LINE DRESSING NOTED TO BE SOILED. INITIATED TO CHANGE THE DRESSING. PICC LINE SITE NOTED TO BE DRAINING SMALL AMOUNT OF PURULENT DRAINAGE AND BLOOD. PICTURE TAKEN, PUT IN CHART AND SENT TO JOVITA NOWAK. DRESSING DONE WITH STERILE TECHNIQUE. WILL CONTINUE TO MONITOR.
--- NOTE | 2022-01-19 18:39 | NUR ---
RN CLOSING NOTE PATIENT REMAINS IN BED, OBTUNDED. PATIENT ON MECHANICAL VENTILATOR WITH NO SIGNS OF LABORED BREATHING AT THIS TIME, FIO2 30%. FLEXI SEAL IN PLACE. G TUBE IN PLACE, FEEDING HELD PER RESIN MIXER NOWAK ORDER. RIGHT FEMORAL PICC LINE AND RIGHT CW PERMACATH IN PLACE. NO SIGNS OF ACUTE DISTRESS NOTED. ALL NEEDS ATTENDED DURING SHIFT. BED LOCKED AND IN LOWEST POSITION, CALL LIGHT WITHIN REACH, 2 SIDE RAILS UP. WILL ENDORSE TO MEDIA PLANNER / BUYER NURSE.
[2022-01-19] MEDS: COLISTIMETHATE SODIUM 150 MG in IV NS 0.9% 50 ML IV SCH (18:53)
[2022-01-19 20:00] VITALS: BP 132/57
--- NOTE | 2022-01-19 20:00 | NUR ---
RN NOTE RECEIVED PT, DAUGHTER AT BEDSIDE. PT OBTUNDED ON MECH VENT. NO SIGNS OF DISTRESS NOTED. GT IN PLACE, FEEDING ON HOLD PER MD ORDER. AWAITING FOR GI CONSULT. R FEMORAL PICC IN PLACE, DRESSING INTACT. FLUSHES WELL. HD CATH INTACT. WILL CONTINUE TO MONITOR.
[2022-01-19] MEDS: LATANOPROST EYE DROP 0.005% 2.5 ML BOTTLE OP SCH (22:23)
--- NOTE | 2022-01-19 23:30 | NUR ---
RN NOTE FSBS 127. NO INSULIN COVERAGE
[2022-01-20] VITALS: BP 106/45
[2022-01-20] MEDS: METRONIDAZOLE 500MG/ NS 100ML 500 MG in PREMIX 1 EA IV SCH ×5 (00:14→23:53)
[2022-01-20] MEDS: VANCOMYCIN HCL 125 MG/2.5 ML ORAL.SUSP PO SCH ×5 (00:14→23:52)
[2022-01-20] MEDS: IPRATROPIUM NEB FS 0.5 MG/2.5 ML AMPUL.NEB NEB SCH ×4 (01:12→19:41)
[2022-01-20 04:00] VITALS: BP 113/48
[2022-01-20] MEDS: PHENYTOIN SODIUM IV 100 MG/2ML VIAL IV SCH ×3 (05:33→21:26)
[2022-01-20] MEDS: METOCLOPRAMIDE HCL 10 MG/2 ML VIAL IV SCH ×3 (05:33→21:26)
[2022-01-20] MEDS: MIDODRINE HCL (5MG) 5 MG TABLET PO SCH ×3 (05:34→21:26)
[2022-01-20] MEDS: BLOOD SUGAR DIAGNOSTIC 1 EACH STRIP IN SCH ×3 (05:36→17:41)
--- NOTE | 2022-01-20 06:17 | NUR ---
RN NOTE PT FSBS 69. FEEDING STILL ON HOLD. NOTIFIED DR BHATIA, ORDERED TO GIVE D50 IVP ONE TIME.
[2022-01-20] MEDS ORDERED: DEXTROSE 50%-WATER 50 ML DISP.SYRIN IVP ONE (06:30)
--- NOTE | 2022-01-20 07:11 | NUR ---
RN NOTE D50 IVP GIVEN ORDERED. NO SIGNS OF DISTRESS NOTED. CONTINUE WITH FEEDING ON HOLD. GT SITE NOTED WITH OPEN WOUND/NECROTIC TISSUE. MINIMAL RESIDUALS NOTED. WOUND TX DONE ORDERED. PT ANURIC, GENERALIZED EDEMA NOTED. WILL ENDORSE TO NEXT SHIFT NURSE FOR OTIS.
--- NOTE | 2022-01-20 07:38 | NUR ---
RN NOTE FSBS 124
[2022-01-20 08:00] VITALS: BP 109/52
--- NOTE | 2022-01-20 08:00 | NUR ---
RN NOTES RECEIVED PATIENT TRACHEA/VENT DEPENDENT, FIO2-30%. PATIENTS EYES IS OBTUNDED. NO ACUTE RESPIRATORY DISTRESS, PATIENT FEEDING IS HELD SINCE 01/20/20 BECAUSE OF NECROTIC TISSUE SURROUNDING GT AREA. PATIENT HAS GI CONSULTATION. DUE MEDICATION ADMINISTERED , ASSIST TURN AND REPOSTION. PATIENT ANURIC BECAUSE OF HD. WILL FOLLOW UP.
--- NOTE | 2022-01-20 09:30 | NUR ---
rn notes patient getting HD at this time, bp 109/52, p-58, t-97.8F. will follow up.
[2022-01-20] MEDS: ALBUMIN 25% 25 GM in PREMIX 1 EA IV PRN (09:34)
[2022-01-20] MEDS: PHENOBARBITAL 30 MG TABLET GT SCH ×2 (09:35→21:25)
[2022-01-20] MEDS: PANTOPRAZOLE 40 MG/PACK PACK GT SCH (09:35)
[2022-01-20] MEDS: CHLORHEXIDINE GLUCONATE 15 ML UDC MM SCH ×2 (09:35→17:45)
[2022-01-20] MEDS: DORZOLAMIDE OPTH 2% 10 ML BOTTLE OP SCH ×2 (09:36→17:46)
[2022-01-20] MEDS: HYDROCORTISONE SOD SUCCINATE 100 MG/2 ML VIAL IV SCH ×2 (09:36→17:45)
[2022-01-20] MEDS: DAKINS HALF STRENGTH (0.25%) 480 ML BOTTLE TOP SCH (09:37)
[2022-01-20] MEDS: THERAHONEY GEL 1.5 OZ TUBE TP SCH (09:38)
[2022-01-20] MEDS: PROSOURCE / PROSTAT (PYXIS) 30 ML UDC GT SCH ×2 (09:39→17:43)
--- NOTE | 2022-01-20 09:40 | NUR ---
rn notes patients bp 80/42 , administering albumin during dialysis.
[2022-01-20 12:00] VITALS: BP 100/44
--- NOTE | 2022-01-20 12:00 | NUR ---
rn notes finished hemodialysis at this time, output was 450 ml. patient bp 100/44, p-63. bs-72 mg/dl. assist turn and reposition q 2 hr.
[2022-01-20 15:25] LABS: BASOPHILS % (AUTO) 0.2 % (0.0-2.0); EOSINOPHILS % (AUTO) 0.9 % (0.0-6.0); HEMATOCRIT 24 % (33-45); HEMOGLOBIN 7.5 g/dL (11.5-14.8); LYMPHOCYTES # (AUTO) 0.9 K/uL (0.8-4.8); LYMPHOCYTES % (AUTO) 5.3 % (20.0-44.0); MEAN CORPUSCULAR HGB CONC 31 g/dl (31.0-36.0); MEAN CORPUSCULAR VOLUME 98 fL (82-100); MONOCYTES # (AUTO) 1.2 K/uL (0.1-1.30); MONOCYTES % (AUTO) 6.7 % (2.0-12.0); NEUTROPHILS # (AUTO) 15.1 K/uL (1.8-8.9); NEUTROPHILS % (AUTO) 86.9 % (43.0-81.0); PLATELET COUNT (AUTO) 64 K/uL (150-450); RED BLOOD CELL COUNT(AUTO) 2.44 MIL/uL (4.0-5.2); WHITE BLOOD COUNT (AUTO) 17.4 K/uL (4.3-11.0)
[2022-01-20 15:46] LABS: CALCIUM, SERUM 7.5 mg/dL (8.5-10.1); POTASSIUM 3.3 mmol/L (3.5-5.1)
[2022-01-20 16:00] VITALS: BP 104/39
[2022-01-20 16:06] LABS: BAND % (MANUAL) 4 % (0.0-5.0); LYMPHOCYTES % (MANUAL) 5 % (16-48); NEUTROPHILS % (MANUAL) 88 (42-76)
[2022-01-20 16:07] LABS: EOSINOPHILS % (MANUAL) 1 % (0-4); MONOCYTES % (MANUAL) 2 % (0-11.0)
[2022-01-20] MEDS: COLISTIMETHATE SODIUM 150 MG in IV NS 0.9% 50 ML IV SCH (17:42)
[2022-01-20] MEDS: CEFTAZIDIME 1 G in IV D5W 50 ML IV SCH (17:43)
--- NOTE | 2022-01-20 18:23 | NUR ---
rn notes pm care done, suction, mouth care, due medication administered, infusing Flagyl 100ml/hr on right femoral picc line intact. Assist turn and reposition, bs-113 mg/dl patient npo because of necrotic tissue at GT opening area. patient has generalized edema, and multiple wounds. daughter next to the bed. endorsed oncoming nurse tico.
--- NOTE | 2022-01-20 19:39 | NUR ---
RN NOTE PT SEEN BY DR HALE. PER OK TO RESTART FEEDING.
[2022-01-20] MEDS: DAPTOMYCIN IV SCH (19:52)
[2022-01-20] MEDS: NS 0.9% IV SCH (19:52)
[2022-01-20] MEDS: NEPRO 1,000 ML BOTTLE GT SCH (19:58)
[2022-01-20 20:00] VITALS: BP 123/45
--- NOTE | 2022-01-20 20:30 | NUR ---
RN NOTE RESTARTED GT FEEDING. GT PATENT AND IN PLACE, KEPT HOB ELEVATED. FAMILY AT BEDSIDE. R FEMORAL PICC LINE IN INTACT AND PATENT, DUE ATB GIVEN ORDERED. TURNED AND REPOSITIONED. WILL CONTINUE TO MONITOR.
[2022-01-20] MEDS: LATANOPROST EYE DROP 0.005% 2.5 ML BOTTLE OP SCH (21:26)
[2022-01-21] VITALS: BP 123/49
[2022-01-21] MEDS: BLOOD SUGAR DIAGNOSTIC 1 EACH STRIP IN SCH ×5 (00:03→23:40)
[2022-01-21] MEDS: IPRATROPIUM NEB FS 0.5 MG/2.5 ML AMPUL.NEB NEB SCH ×4 (01:15→19:44)
[2022-01-21 04:00] VITALS: BP 124/51
[2022-01-21] MEDS: MIDODRINE HCL (5MG) 5 MG TABLET PO SCH ×3 (05:30→21:45)
[2022-01-21] MEDS: PHENYTOIN SODIUM IV 100 MG/2ML VIAL IV SCH ×3 (05:30→21:42)
[2022-01-21] MEDS: METRONIDAZOLE 500MG/ NS 100ML 500 MG in PREMIX 1 EA IV SCH ×4 (05:31→23:40)
[2022-01-21] MEDS: METOCLOPRAMIDE HCL 10 MG/2 ML VIAL IV SCH ×3 (05:31→21:42)
[2022-01-21] MEDS: VANCOMYCIN HCL 125 MG/2.5 ML ORAL.SUSP PO SCH ×4 (05:31→23:40)
--- NOTE | 2022-01-21 07:04 | NUR ---
RN CLOSING NOTES PATIENT REMAINS IN BED, OBTUNDED. PATIENT ON MECHANICAL VENTILATOR WITH NO SIGNS OF LABORED BREATHING, FIO2 30%. FLEXI SEAL IN PLACE. G TUBE IN PLACE, TOLERATING GT FEEDING WITH 30ML RESIDUALS. KEPT HOB ELEVATED. . NO SIGNS OF DISTRESS NOTED. ALL DUE MEDS GIVEN. BED LOCKED AND IN LOWEST POSITION, REMAIN AFEBRILE. WILL ENDORSE TO WAREHOUSE SUPERVISOR NURSE.
[2022-01-21 07:11] LABS: BASOPHILS % (AUTO) 0.2 % (0.0-2.0); EOSINOPHILS % (AUTO) 1.2 % (0.0-6.0); HEMATOCRIT 27 % (33-45); HEMOGLOBIN 8.1 g/dL (11.5-14.8); LYMPHOCYTES # (AUTO) 1.8 K/uL (0.8-4.8); LYMPHOCYTES % (AUTO) 11.3 % (20.0-44.0); MEAN CORPUSCULAR HGB CONC 30 g/dl (31.0-36.0); MEAN CORPUSCULAR VOLUME 101 fL (82-100); MONOCYTES # (AUTO) 1.1 K/uL (0.1-1.30); MONOCYTES % (AUTO) 7.2 % (2.0-12.0); NEUTROPHILS # (AUTO) 12.7 K/uL (1.8-8.9); NEUTROPHILS % (AUTO) 80.1 % (43.0-81.0); PLATELET COUNT (AUTO) 114 K/uL (150-450); RED BLOOD CELL COUNT(AUTO) 2.64 MIL/uL (4.0-5.2); WHITE BLOOD COUNT (AUTO) 15.8 K/uL (4.3-11.0)
--- NOTE | 2022-01-21 07:30 | NUR ---
RN NOTES PT FOUND SEMI FOWLERS DISPLAYING NO S/S OF DISTRESS, FLACC = 0 AND BILATERAL RISE AND FALL OF THE CHEST OBSERVED. PEG RESIDUAL = 10 ML, PEG DRESSING IS CLEAN AND DRY. L FEMORAL TRIPLE LUMEN IS PATIENT AND INTACT. R CW HD CATH IS CLEAN AND DRY. PROCTOR CATH BELOW PATIENT DRAINING BY GRAVITY. FLEXISEAL RESERVOIR IS BELOW PATIENT DRAINING BY GRAVITY. VSS, RN WILL MONITOR AND TREAT THROUGHOUT SHIFT. SAFETY MEASURES IN PLACE, BED LOCKED AND IN LOWEST POSITION, SIDE RAILS UPX2, CALL LIGHT WITHIN REACH, BED ALARM ARMED.
[2022-01-21 07:54] LABS: CALCIUM, SERUM 7.9 mg/dL (8.5-10.1); CREATININE 1.1 mg/dL (0.6-1.3); MAGNESIUM 1.8 mg/dL (1.8-2.4); POTASSIUM 3.3 mmol/L (3.5-5.1)
[2022-01-21 08:00] VITALS: BP 130/73
[2022-01-21] MEDS: DAKINS HALF STRENGTH (0.25%) 480 ML BOTTLE TOP SCH (08:16)
[2022-01-21] MEDS: CHLORHEXIDINE GLUCONATE 15 ML UDC MM SCH ×2 (08:16→17:49)
[2022-01-21] MEDS: HYDROCORTISONE SOD SUCCINATE 100 MG/2 ML VIAL IV SCH ×2 (08:16→17:49)
[2022-01-21] MEDS: PHENOBARBITAL 30 MG TABLET GT SCH ×2 (08:16→21:42)
[2022-01-21] MEDS: PANTOPRAZOLE 40 MG/PACK PACK GT SCH (08:16)
[2022-01-21] MEDS: DORZOLAMIDE OPTH 2% 10 ML BOTTLE OP SCH ×2 (08:16→17:50)
[2022-01-21] MEDS: PROSOURCE / PROSTAT (PYXIS) 30 ML UDC GT SCH ×2 (08:16→17:49)
[2022-01-21] MEDS: THERAHONEY GEL 1.5 OZ TUBE TP SCH (08:17)
[2022-01-21] MEDS ORDERED: POTASSIUM CHLORIDE 20 MEQ POWDER PACKET GT SCH (10:00)
[2022-01-21] MEDS: ALBUMIN 25% 25 GM in PREMIX 1 EA IV PRN (10:33)
--- NOTE | 2022-01-21 11:24 | NUR ---
Dr Robbins at bedside, updated on pt's labs,VS, ordered to alternate PUF and HD. HD today then UF x 2 days then back to HD X1 day UFX 2 days.
[2022-01-21 12:00] VITALS: BP 103/70
[2022-01-21] MEDS ORDERED: POTASSIUM CHLORIDE 20 MEQ TAB.PRT.SR PO ONE (12:00)
[2022-01-21 16:00] VITALS: BP 98/46
[2022-01-21] MEDS: COLISTIMETHATE SODIUM 150 MG in IV NS 0.9% 50 ML IV SCH (17:50)
--- NOTE | 2022-01-21 19:17 | NUR ---
RN NOTES PT FOUND SEMI FOWLERS DISPLAYING NO S/S OF DISTRESS, FLACC = 0 AND BILATERAL RISE AND FALL OF THE CHEST OBSERVED. PEG RESIDUAL = 10 ML, PEG DRESSING IS CLEAN AND DRY. L FEMORAL TRIPLE LUMEN IS PATIENT AND INTACT, DRESSING CHANGED. R CW HD CATH IS CLEAN AND DRY. PROCTOR CATH BELOW PATIENT DRAINING BY GRAVITY. FLEXISEAL RESERVOIR IS BELOW PATIENT DRAINING BY GRAVITY. SBAR AND REPORT GIVEN TO PHYSICIAN LOCUMS URGENT CARE RN, ALL QUESTIONS ANSWERED. SAFETY MEASURES IN PLACE, BED LOCKED AND IN LOWEST POSITION, SIDE RAILS UPX2, CALL LIGHT WITHIN REACH, BED ALARM ARMED. PT ENDORSED IN STABLE CONDITION FOR OTIS.
--- NOTE | 2022-01-21 19:45 | NUR ---
RN NOTE PT TOLERATING VENT SETTINGS, NO RESP DISTRESS NOTED. RT AT BEDSIDE, DAUGHTER AT BEDSIDE. PT GT PATENT AND IN PLACE, NOTED WITH 80 ML RESIDUALS, KEPT HOB ELEVATED. NO SIGNS OF ASPIRATION. FLEXISEAL IN PLACE. WILL CONTINUE TO MONITOR.
[2022-01-21 20:00] VITALS: BP 133/59
[2022-01-21] MEDS: LATANOPROST EYE DROP 0.005% 2.5 ML BOTTLE OP SCH (22:03)
[2022-01-21] MEDS: INSULIN REGULAR, HUMAN 100 UNIT/ML 3 ML VIAL SQ PRN (23:42)
[2022-01-22] VITALS: BP 111/41
[2022-01-22] MEDS: IPRATROPIUM NEB FS 0.5 MG/2.5 ML AMPUL.NEB NEB SCH ×4 (01:20→20:24)
[2022-01-22] MEDS: IV NS 0.9% 250 ML IV PRN (03:24)
[2022-01-22] MEDS: NEPRO 1,000 ML BOTTLE GT SCH (03:25)
[2022-01-22 04:00] VITALS: BP 113/40
[2022-01-22] MEDS: PHENYTOIN SODIUM IV 100 MG/2ML VIAL IV SCH ×3 (05:10→21:34)
[2022-01-22] MEDS: METOCLOPRAMIDE HCL 10 MG/2 ML VIAL IV SCH ×3 (05:10→21:34)
[2022-01-22] MEDS: VANCOMYCIN HCL 125 MG/2.5 ML ORAL.SUSP PO SCH ×4 (05:11→23:55)
[2022-01-22] MEDS: MIDODRINE HCL (5MG) 5 MG TABLET PO SCH ×3 (05:11→21:36)
[2022-01-22] MEDS: METRONIDAZOLE 500MG/ NS 100ML 500 MG in PREMIX 1 EA IV SCH ×4 (05:16→23:55)
[2022-01-22] MEDS: BLOOD SUGAR DIAGNOSTIC 1 EACH STRIP IN SCH ×3 (05:33→18:27)
--- NOTE | 2022-01-22 07:01 | NUR ---
RN CLOSING NOTES PT TOLERATING VENT SETTINGS, NOT IN ANY DISTRESS. NO SIGNIFICANT CHANGES, VS WNL. CONTINUE ON GT FEEDING, NOTED WITH 30 ML RESIDUALS, KEPT HOB ELEVATED. WOUND TX DONE ORDERED, TURNED AND REPOSITIONED. ENDORSED TO NEXT SHIFT NURSE FOR OTIS.
--- NOTE | 2022-01-22 07:15 | NUR ---
RN OPENING NOTE RECEIVED PT IN BED, OBTUNDED. PT TOLERATING VENT SETTINGS, NO RESP DISTRESS NOTED. PT GT PATENT AND IN PLACE, KEPT HOB ELEVATED. NO SIGNS OF ASPIRATION. FLEXISEAL IN PLACE. WILL CONTINUE TO MONITOR THROUGHOUT SHIFT. ALL SAFETY MEASURES IN PLACE, SR UP X3, BED IN LOWEST LOCKED POSITION. WILL CONTINUE TO MONITOR THROUGHOUT SHIFT.
[2022-01-22 07:33] LABS: BASOPHILS % (AUTO) 0.1 % (0.0-2.0); EOSINOPHILS % (AUTO) 1.7 % (0.0-6.0); HEMATOCRIT 25 % (33-45); MEAN CORPUSCULAR HGB CONC 31 g/dl (31.0-36.0); MEAN CORPUSCULAR VOLUME 99 fL (82-100); MONOCYTES # (AUTO) 0.9 K/uL (0.1-1.30); MONOCYTES % (AUTO) 5.8 % (2.0-12.0); NEUTROPHILS # (AUTO) 12.3 K/uL (1.8-8.9); NEUTROPHILS % (AUTO) 79.4 % (43.0-81.0); PLATELET COUNT (AUTO) 122 K/uL (150-450); RED BLOOD CELL COUNT(AUTO) 2.57 MIL/uL (4.0-5.2); WHITE BLOOD COUNT (AUTO) 15.5 K/uL (4.3-11.0)
[2022-01-22 08:08] VITALS: BP 105/41
[2022-01-22 08:40] LABS: CALCIUM, SERUM 7.6 mg/dL (8.5-10.1); CREATININE 1.1 mg/dL (0.6-1.3); MAGNESIUM 1.7 mg/dL (1.8-2.4); PHOSPHORUS 3.8 mg/dL (2.5-4.9); POTASSIUM 3.8 mmol/L (3.5-5.1)
[2022-01-22] MEDS: THERAHONEY GEL 1.5 OZ TUBE TP SCH (08:59)
[2022-01-22] MEDS: DAKINS HALF STRENGTH (0.25%) 480 ML BOTTLE TOP SCH (09:00)
[2022-01-22] MEDS: DORZOLAMIDE OPTH 2% 10 ML BOTTLE OP SCH ×2 (09:00→18:23)
[2022-01-22] MEDS: CHLORHEXIDINE GLUCONATE 15 ML UDC MM SCH ×2 (09:10→18:23)
[2022-01-22] MEDS: PANTOPRAZOLE 40 MG/PACK PACK GT SCH (09:10)
[2022-01-22] MEDS: PHENOBARBITAL 30 MG TABLET GT SCH (09:10)
[2022-01-22] MEDS: HYDROCORTISONE SOD SUCCINATE 100 MG/2 ML VIAL IV SCH (09:11)
[2022-01-22] MEDS: PROSOURCE / PROSTAT (PYXIS) 30 ML UDC GT SCH ×2 (09:11→18:22)
[2022-01-22] MEDS: ALBUMIN 25% 25 GM in PREMIX 1 EA IV PRN (09:12)
--- NOTE | 2022-01-22 11:13 | NUR ---
RN NOTES PT WAS NOT ABLE TO FULLY COMPLETE HD. 2 HOURS LOGGED. BP IS 94/45 HR IS 65. ULTRA FILTRATION AMOUNT 350 ML.
[2022-01-22] MEDS: INSULIN REGULAR, HUMAN 100 UNIT/ML 3 ML VIAL SQ PRN (11:37)
[2022-01-22 12:00] VITALS: BP 97/44
[2022-01-22 16:00] VITALS: BP 86/39
[2022-01-22] MEDS: CEFTAZIDIME 1 G in IV D5W 50 ML IV SCH (18:26)
[2022-01-22] MEDS: COLISTIMETHATE SODIUM 150 MG in IV NS 0.9% 50 ML IV SCH (18:31)
--- NOTE | 2022-01-22 19:08 | NUR ---
RN NOTES MANUAL BP TAKEN. BP- 84/34. SPOKE WITH PARMJIT NOWAK NP. ORDERED TO GIVE 250ML BOLUS OF NS. WILL CHECK VITALS AFTER BOLUS IS COMPLETE.
[2022-01-22] MEDS: NS 0.9% IV SCH (19:45)
[2022-01-22] MEDS: DAPTOMYCIN IV SCH (19:45)
[2022-01-22 20:00] VITALS: BP 91/35
--- NOTE | 2022-01-22 20:06 | NUR ---
RN CLOSING NOTES PT OBTUNDED WITH DAUGHTER AT BEDSIDE. PT TOLERATING VENT SETTINGS, NOT IN ANY DISTRESS. SECOND BOLUS OF 250ML NS COMPLETE PER HAND MARKER PARMJIT NOWAK. CONTINUE ON GT FEEDING, NOTED WITH 30 ML RESIDUALS, KEPT HOB ELEVATED. WOUND TX DONE ORDERED, TURNED AND REPOSITIONED. ALL MEDS GIVEN. ALL SAFETY MEASURES IN PLACE, BED IN LOWEST LOCKED POSITION, SR UP X3, ENDORSED TO DARIA HERRING FOR OTIS.
[2022-01-22] MEDS: LATANOPROST EYE DROP 0.005% 2.5 ML BOTTLE OP SCH (21:48)
--- NOTE | 2022-01-22 22:18 | NUR ---
RN NOTES RECEIVED PT FOR CONTINUITY OF CARE. PATIENT A/OX0 IN NO S/SX OF ACUTE DISTRESS AT THIS TIME; CURRENTLY ON MECHANICAL VENT; SETTING PRESCRIBED, WITH 02 SAT 100% AT THIS TIME. WITH IV ACCESS ON L SUBCLAVIAN TRIPLE LUMEN CATH PATENT, INTACT AND FLUSHING WELL. WITH GTUBE FEEDING RUNNING PRESCRIBED, NO RESIDUAL AT THIS TIME. WITH FLEXISEAL SECURED AND INTACT. WILL ENSURE SAFETY MEASURES WITHIN THE SHIFT. PATIENT BED ALARM IS ON. HEAD OF BED ELEVATED. BED IS LOCKED, IN LOWEST POSITION AND SIDE RAILS UP. CALL LIGHT WITHIN REACH OF THE PATIENT. APPLICABLE ISOLATION PRECAUTIONS IN PLACE. WILL CONTINUE TO MONITOR AND REASSESS FOR ANY CHANGES AND WILL CARRY OUT ANY ONGOING AND ACTIVE MD ORDER. Addendum: 01/22/22 at 2219 by CHAKA CRUZ RN NOTES FOR 1929
[2022-01-23] VITALS (7 sets, daily range): BP systolic 55–91; BP diastolic 25–47
[2022-01-23] MEDS: BLOOD SUGAR DIAGNOSTIC 1 EACH STRIP IN SCH ×4 (00:14→17:59)
[2022-01-23] MEDS: INSULIN REGULAR, HUMAN 100 UNIT/ML 3 ML VIAL SQ PRN ×3 (00:17→18:15)
[2022-01-23] MEDS: IPRATROPIUM NEB FS 0.5 MG/2.5 ML AMPUL.NEB NEB SCH ×4 (02:03→19:52)
[2022-01-23] MEDS: METRONIDAZOLE 500MG/ NS 100ML 500 MG in PREMIX 1 EA IV SCH ×3 (05:41→17:57)
[2022-01-23] MEDS: PHENYTOIN SODIUM IV 100 MG/2ML VIAL IV SCH ×3 (05:41→21:12)
[2022-01-23] MEDS: METOCLOPRAMIDE HCL 10 MG/2 ML VIAL IV SCH ×3 (05:41→21:12)
[2022-01-23] MEDS: MIDODRINE HCL (5MG) 5 MG TABLET PO SCH ×3 (05:50→21:14)
[2022-01-23] MEDS: VANCOMYCIN HCL 125 MG/2.5 ML ORAL.SUSP PO SCH ×3 (05:54→17:59)
[2022-01-23 06:23] LABS: BASOPHILS % (AUTO) 0.3 % (0.0-2.0); EOSINOPHILS % (AUTO) 1.9 % (0.0-6.0); HEMATOCRIT 21 % (33-45); LYMPHOCYTES # (AUTO) 1.8 K/uL (0.8-4.8); LYMPHOCYTES % (AUTO) 12.1 % (20.0-44.0); MEAN CORPUSCULAR HGB CONC 32 g/dl (31.0-36.0); MEAN CORPUSCULAR VOLUME 99 fL (82-100); MONOCYTES # (AUTO) 0.6 K/uL (0.1-1.30); MONOCYTES % (AUTO) 4.1 % (2.0-12.0); NEUTROPHILS # (AUTO) 12.3 K/uL (1.8-8.9); NEUTROPHILS % (AUTO) 81.6 % (43.0-81.0); PLATELET COUNT (AUTO) 100 K/uL (150-450); RED BLOOD CELL COUNT(AUTO) 2.12 MIL/uL (4.0-5.2); WHITE BLOOD COUNT (AUTO) 15.1 K/uL (4.3-11.0)
--- NOTE | 2022-01-23 06:37 | NUR ---
RN CLOSING NOTE: PATIENT REMAINS IN ROOM IN NO SIGNS OF RESPIRATORY DISTRESS, PATIENT STILL ON MECH VENT; SETTINGS PRESCRIBED;TOLERATING WELL SATURATING @ >95% SP02. SBP MAINTAINED >80 ALL THROUGHOUT THE SHIFT. SAFETY MEASURES IMPLEMENTED, BED IN LOWEST POSITION, LOCKED, SIDE RAILS UP, CALL LIGHT WITHIN REACH. ALL NEEDS AND ORDERS ADDRESSED DURING THE SHIFT. IV ACCESS MAINTAINED INTACT, SECURED AND FLUSHING WELL. ALL DUE MEDS GIVEN ORDERED & SCHEDULED ; PATIENT TOLERATED WELL.OL PATIENT KEPT CLEAN AND COMFORTABLE WITHIN THE SHIFT. PATIENT ENDORSED TO INCOMING SHIFT RN WITH STABLE VITAL SIGN AND FOR CONTINUITY OF CARE.
[2022-01-23 06:44] LABS: CALCIUM, SERUM 7.6 mg/dL (8.5-10.1); CREATININE 1.1 mg/dL (0.6-1.3); MAGNESIUM 1.7 mg/dL (1.8-2.4); PHOSPHORUS 3.9 mg/dL (2.5-4.9); POTASSIUM 3.6 mmol/L (3.5-5.1)
[2022-01-23 06:48] LABS: HEMOGLOBIN 6.6 g/dL (11.5-14.8)
--- NOTE | 2022-01-23 06:51 | NUR ---
RN NOTES CRITICAL LAB RECEIVED; HGB LEVEL, 6.6. WILL NOTIFY ONCERYN CONDE & WILL ENDORSE TO AM SHIFT FOR FOLLOW THROUGH. AM LABORER POULTRY HATCHERY MADE AWARE.
--- NOTE | 2022-01-23 07:30 | NUR ---
TD RN AM NOTES ECEIVED PATIENT IN BED, OBTUNDED, WITH PORTEX 7 TO MECHANICAL VENT AC 14 TV 500 FIO2 30 PEEP 0 SATING 100%. NO DISTRESS, BREATHING EVEN AND UNLABORED, SR,HR 69 ON MONITOR, NO GRIMACINGS/SIGNS OF PAIN, WITH IV ACCESS ON L SUBCLAVIAN TRIPLE LUMEN CATH PATENT, INTACT AND FLUSHING WELL. RIGHT CHEST WALL HD CATH WITH CDI DRESSING. BOTH SITES CLEAR. GTF FEEDING RUNNING AT 45 ML/HR. CHECKED FOR PLACEMENT, 45 ML RESIDUAL,. RECTAL TUBE IN PLACE, WILL IRRIGATE LATER. 100 ML OUTPUT. PT HAS MULTIPLE WOUNDS ON SACRUM AND LEFT/RIGHT HIPS. REFER TO NURSING FLOWSHEET/ASSESSMENT. WILL DO PRESCRIBED WOUND TREATMENT IN A WHILE. APPLICABLE ISOLATION PRECAUTIONS IN PLACE. TURN AND REPOSITION Q 2 HOURS. OFF LOADING, ALL SAFETY MEASURES IMPLEMENTED, BED IN LOW POSITION AND KEPT HEAD OF BED ELEVATED. CALL LIGHT WITHIN REACH. WILL CONTINUE TO MONITOR. FOR HEMODIALYSIS TODAY
[2022-01-23] MEDS: EPOETIN ALFA-EPBX 4,000 UNIT/ML VIAL IV PRN (08:32)
[2022-01-23] MEDS: ALBUMIN 25% 25 GM in PREMIX 1 EA IV PRN (08:32)
[2022-01-23] MEDS ORDERED: PHENOBARBITAL 30 MG TABLET GT SCH (09:00)
[2022-01-23] MEDS ORDERED: HYDROCORTISONE SOD SUCCINATE 100 MG/2 ML VIAL IV SCH (09:00)
[2022-01-23] MEDS: DOPamine 400 MG in IV D5W 250 ML IV PRN ×2 (09:15→16:41)
--- NOTE | 2022-01-23 09:15 | NUR ---
RN NOTES BP 63/36. STARTED DOPAMINE DRIP AT 5MCG/HR
[2022-01-23] MEDS: IV NS 0.9% 250 ML IV PRN (09:16)
[2022-01-23] MEDS: CHLORHEXIDINE GLUCONATE 15 ML UDC MM SCH ×2 (09:29→17:56)
[2022-01-23] MEDS ORDERED: ALBUMIN 25% 25 GM in PREMIX 1 EA IV ONE (09:30)
--- NOTE | 2022-01-23 09:30 | NUR ---
RN NOTES DUE MEDS GIVEN
[2022-01-23] MEDS: PANTOPRAZOLE 40 MG/PACK PACK GT SCH (09:31)
[2022-01-23] MEDS: PROSOURCE / PROSTAT (PYXIS) 30 ML UDC GT SCH ×2 (09:31→17:56)
[2022-01-23] MEDS: THERAHONEY GEL 1.5 OZ TUBE TP SCH (09:36)
[2022-01-23] MEDS: DAKINS HALF STRENGTH (0.25%) 480 ML BOTTLE TOP SCH (09:36)
[2022-01-23] MEDS: DORZOLAMIDE OPTH 2% 10 ML BOTTLE OP SCH ×2 (09:36→17:57)
--- NOTE | 2022-01-23 09:40 | NUR ---
RN NOTES HD COMPLETED WITH 1500ML. BP 91/47.
[2022-01-23] MEDS: NEPRO 1,000 ML BOTTLE GT SCH (12:23)
--- NOTE | 2022-01-23 16:41 | NUR ---
RN NOTES BP 55/25. DOPAMINE RESTARTED 5MCG/HR
--- NOTE | 2022-01-23 17:13 | NUR ---
RN NOTES BP RECEHECKED
[2022-01-23 17:33] LABS: OCCULT BLOOD STOOL POSITIVE (NEGATIVE)
[2022-01-23] MEDS: COLISTIMETHATE SODIUM 150 MG in IV NS 0.9% 50 ML IV SCH (17:58)
--- NOTE | 2022-01-23 19:19 | NUR ---
TD RN CLOSING NOTES PATIENT IN BED, RESTING, DAUGHTER AT BEDSIDE. OBTUNDED, WITH PORTEX 7 TO MECHANICAL VENT AC 14 TV 500 FIO2 30 PEEP 0 SATING 100%. NO DISTRESS, BREATHING EVEN AND UNLABORED, SR,HR 69 ON MONITOR, NO GRIMACINGS/SIGNS OF PAIN, RIGHT CHEST WALL PERM-CATH FOR HD, CDI DRESSING, IV ACCESS ON L SUBCLAVIAN TRIPLE LUMEN CATH PATENT, INTACT AND FLUSHING WELL. RIGHT CHEST WALL HD CATH WITH CDI DRESSING. BOTH SITES CLEAR. GTF FEEDING RUNNING AT 25 ML/HR GOAL 45 ML. CHECKED FOR PLACEMENT, 45 ML RESIDUAL,. RECTAL TUBE IN PLACE, 300ML OUTPUT. MULTIPLE WOUNDS ON SACRUM AND LEFT/RIGHT HIPS. REFER TO NURSING FLOWSHEET/ASSESSMENT. PRESCRIBED WOUND TREATMENT DONE. PM CARE DONE. APPLICABLE ISOLATION PRECAUTIONS IN PLACE. TURN AND REPOSITION Q 2 HOURS. OFF LOADING, ALL SAFETY MEASURES IMPLEMENTED, BED IN LOW POSITION AND KEPT HEAD OF BED ELEVATED. CALL LIGHT WITHIN REACH. WILL ENDORSE TO NEXT SHIFT FOR [facility]IS. FOR HEMODIALYSIS TOMORROW. ONGOING DOPAMINE DRIP AT 5 MCG/ML. BP 79/51
--- NOTE | 2022-01-23 19:35 | NUR ---
RN NOTES RECEIVED PT FOR CONTINUITY OF CARE. PATIENT A/OX0 IN NO S/SX OF ACUTE DISTRESS AT THIS TIME; CURRENTLY ON MECHANICAL VENT; SETTING PRESCRIBED, WITH 02 SAT 100% AT THIS TIME. WITH IV ACCESS ON L SUBCLAVIAN TRIPLE LUMEN CATH PATENT, INTACT AND FLUSHING WELL. WITH GTUBE FEEDING RUNNING PRESCRIBED, NO RESIDUAL AT THIS TIME. WITH FLEXISEAL SECURED AND INTACT. WILL ENSURE SAFETY MEASURES WITHIN THE SHIFT. PATIENT BED ALARM IS ON. HEAD OF BED ELEVATED. BED IS LOCKED, IN LOWEST POSITION AND SIDE RAILS UP. CALL LIGHT WITHIN REACH OF THE PATIENT. APPLICABLE ISOLATION PRECAUTIONS IN PLACE. WILL CONTINUE TO MONITOR AND REASSESS FOR ANY CHANGES AND WILL CARRY OUT ANY ONGOING AND ACTIVE MD ORDER.
--- NOTE | 2022-01-23 20:30 | NUR ---
RN NOTES RESIDUAL OF 5CC LAST 1999, ATR THIS TIME NOTED ORAL SECRETIONS WITH FEEDING CONSISTENCY. HELD FEEDING AND NOTIFIED LIV CONDE (TASIA,JOVITA). MANAGER WORKERS COMPENSATION MADE AWARE. WILL CONTINUE TO MONITOR AND ASSESS THROUGHOUT THE SHIFT.
[2022-01-23] MEDS: LATANOPROST EYE DROP 0.005% 2.5 ML BOTTLE OP SCH (21:56)
[2022-01-24] VITALS (27 sets, daily range): BP systolic 69–120; BP diastolic 29–49
[2022-01-24] MEDS: VANCOMYCIN HCL 125 MG/2.5 ML ORAL.SUSP PO SCH ×2 (00:02→05:06)
[2022-01-24] MEDS: METRONIDAZOLE 500MG/ NS 100ML 500 MG in PREMIX 1 EA IV SCH ×2 (00:02→05:10)
--- NOTE | 2022-01-24 01:00 | NUR ---
RN NOTES PT'S SBP <80 SINCE 0000, DOPAMINE BEEN RUNNING PRESCRIBED. LIV CONDE MADE AWARE (JOVITA DOZIER) AND WENT TO SEE PT. LIV CONDE ORDER TO TRANSFER PT IN ICU. WILL CARRY OUT MD ORDER.
--- NOTE | 2022-01-24 01:10 | NUR ---
RN NOTES CALLED PT'S DAUGHTER TO ADVISED ABOUT PT STATUS UPDATE, PT WILL BE TRANSFERRED TO ICU SBP REMAINS <80 WITH DOPAMINE RUNNING PRESCRIBED. DAUGHTER ACKNOWLEDGED.
[2022-01-24] MEDS ORDERED: NOREPINEPHRINE 32 MG in IV NS 0.9% 218 ML IV PRN ×2 (01:30→02:00)
[2022-01-24] MEDS: IPRATROPIUM NEB FS 0.5 MG/2.5 ML AMPUL.NEB NEB SCH ×2 (01:33→07:58)
[2022-01-24] MEDS: INSULIN REGULAR, HUMAN 100 UNIT/ML 3 ML VIAL SQ PRN (01:35)
[2022-01-24] MEDS: BLOOD SUGAR DIAGNOSTIC 1 EACH STRIP IN SCH ×2 (01:35→05:37)
--- NOTE | 2022-01-24 01:45 | NUR ---
RN NOTES TRANSFERRED PT TO ICU RM 253, BEDSIDE REPORT GIVEN TO NIMA PATE FOR OTIS. FIRER PORTABLE BOILER WELL AWARE.
[2022-01-24] MEDS ORDERED: NOREPINEPHRINE 4 MG/4 ML AMPUL IV ONE (01:57)
--- NOTE | 2022-01-24 02:00 | NUR ---
RN NOTE RECEIVED PATIENT FROM [facility] VIA MEDICAL BED ACCOMPANIED BY DARIA HERRING AND COUNTER HELP [place], PATIENT OBTUNDED, IN NO ACUTE DISTRESS, ON TRACH PORTEX#7 CONNECTED TO TO MECHANICAL VENT WITH SETTINGS PRESCRIBED: AC 14, TV 500, FIO2 35%, PEEP 0, TOLERATING WELL, SATURATION AT 96%, SR ON THE MONITOR, HR IS 82. NOTED SUBCLAVIAN TLC, ALL HUBS PATENT AND FLUSHING WELL WITH DOPAMINE INFUSING AT 5 MCG/KG/MIN. HD CATH IN PLACE AT R UPPER CHEST, NO SIGN OF INFECTION OR BLEEDING NOTED. NOTED GTUBE INTACT POSITIVE PLACEMENT NOTED, TUBE FEEDING ON HOLD. SAFETY MEASURES IMPLEMENTED. PATIENT BED ALARM IS ON. HEAD OF BED ELEVATED. BED IS LOCKED, IN LOWEST POSITION AND SIDE RAILS UP. WILL CONTINUE TO MONITOR AND REASSESS FOR ANY CHANGES.
[2022-01-24] MEDS: HYDROCORTISONE SOD SUCCINATE 100 MG/2 ML VIAL IV SCH ×2 (02:41→08:58)
[2022-01-24] MEDS: DOPamine 400 MG in IV D5W 250 ML IV PRN (03:50)
[2022-01-24] MEDS: METOCLOPRAMIDE HCL 10 MG/2 ML VIAL IV SCH (04:21)
[2022-01-24] MEDS: MIDODRINE HCL (5MG) 5 MG TABLET PO SCH (04:44)
--- NOTE | 2022-01-24 05:06 | NUR ---
RN NOTE DUE MEDS VIA GT NON ADMINISTERED, PT + VOMITING, TUBE FEEDING HELD PER [facility] RN PRIOR TO TRANSFER TO ICU FOR THE SAME REASON, DR CLARKE AWARE
[2022-01-24] MEDS: PHENYTOIN SODIUM IV 100 MG/2ML VIAL IV SCH (05:10)
[2022-01-24] MEDS ORDERED: ATROPINE SULFATE INJ 1 MG/ML VIAL IV ONE (07:00)
--- NOTE | 2022-01-24 07:30 | NUR ---
RN NOTES PT FOUND SEMI FOWLERS, FLACC = 0 AND BILATERAL RISE AND FALL OF THE CHEST OBSERVED. DARK BROWN SUBSTANCE SLOWLY OOZING FROM PT'S MOUTH. R CHEST WALL HD CATH DRESSING IS CLEAN AND DRY. L SUBCLAVIAN TRIPLE LUMEN CATH IS PATIENT AND INTACT SANS BLOOD RETURN. FLEXISEAL RESERVOIR IS BELOW PATIENT DRAINING BY GRAVITY. PT V/S ARE HIGHLY UNSTABLE, RN WILL CLOSELY MONITOR AND TREAT THROUGHOUT SHIFT. SAFETY MEASURES IN PLACE, BED LOCKED AND IN LOWEST POSITION, SIDE RAILS UPX2, CALL LIGHT WITHIN REACH, BED ALARM ARMED.
[2022-01-24 08:27] LABS: BASOPHILS # (AUTO) 0.1 K/uL (0.0-0.2); BASOPHILS % (AUTO) 0.1 % (0.0-2.0); EOSINOPHILS % (AUTO) 0.2 % (0.0-6.0); HEMATOCRIT 35 % (33-45); HEMOGLOBIN 10.1 g/dL (11.5-14.8); LYMPHOCYTES # (AUTO) 4.1 K/uL (0.8-4.8); LYMPHOCYTES % (AUTO) 6.1 % (20.0-44.0); MEAN CORPUSCULAR HGB CONC 29 g/dl (31.0-36.0); MEAN CORPUSCULAR VOLUME 103 fL (82-100); MONOCYTES # (AUTO) 2.2 K/uL (0.1-1.30); MONOCYTES % (AUTO) 3.3 % (2.0-12.0); NEUTROPHILS # (AUTO) 60.3 K/uL (1.8-8.9); NEUTROPHILS % (AUTO) 90.3 % (43.0-81.0); PLATELET COUNT (AUTO) 211 K/uL (150-450)
[2022-01-24 08:47] LABS: WHITE BLOOD COUNT (AUTO) 66.8 K/uL (4.3-11.0)
[2022-01-24 09:44] LABS: BAND % (MANUAL) 11 % (0.0-5.0); LYMPHOCYTES % (MANUAL) 5 % (16-48); METAMYELOCYTES % 3 % (0-0); MONOCYTES % (MANUAL) 2 % (0-11.0); MYELOCYTES % 3 % (0-0); NEUTROPHILS % (MANUAL) 76 (42-76)
--- NOTE | 2022-01-24 09:45 | NUR ---
RN NOTE RN WAS CLEANING REMAINS WHEN PRIMARY RN HEARD THAT FAMILY ARRIVED. RN COMMUNICATED, QUITE AUDIBLY, THAT FAMILY WAS NOT TO ENTER THE ROOM. SON AND DAUGHTER ENTERED ROOM SHORTLY AFTER AND WAS VISIBLY AND AUDIBLY UPSET. SON SHOUTED AT PRIMARY RN. RN ATTEMPTED TO EXPLAIN THAT PATIENT HAS BEEN PRONOUNCED BY EMERGENCY ROOM PHYSICIAN. FAMILY ASKED WITH FORCE WHY SHE WASN'T ON THE MONITOR. RN TAUGHT SON WHERE AND HOW TO FEEL FOR FEMORAL PULSE. FAMILY ASKED WITH FORCE WHY PT'S MOUTH WAS STILL MOVING, RN ATTEMPTED TO EXPLAIN THAT THAT IS A NATURAL BUT RARE OCCURRENCE THAT PT'S HEART IS NO LONGER BEATING. JOVITA NOWAK ATTEMPTED TO TALK TO FAMILY, FAMILY REFUSED.
--- NOTE | 2022-01-24 10:00 | NUR ---
[facility] # IS [id number]
--- NOTE | 2022-01-24 10:10 | NUR ---
RN NOTE RN WAS IN PT ROOM ASSESSING THE SUCTION OF FLUID FROM PEG. RN NOTICED PT HR INCREASED TO 105. SUSPICIOUS OF EVENT, RN CLOSELY MONITORED PT HEART RATE. TACHYCARDIA QUICKLY ENDED, HR DROPPED TO 30'S AND THEN ASYSTOLE. RN CALLED RADHA BLUE, PLACED CHEST COMPRESSIONS BOARD UNDERNEATH PT AND STARTED CPR. SOON OTHER STAFF ARRIVED AND TOOK OVER FOR CHEST COMPRESSIONS TO ALLOW PRIMARY RN TO PUSH MEDICATIONS. SEE REPORT FOR SPECIFIC MEDICATIONS, PULSE CHECKS AND TIMES. PT ACHIEVED ROSC. WHILE RN WAS CLEANING AND REPLACING LEADS, PT PULSE VANISHED AGAIN. RN CALLED SECOND RADHA LINDQUIST. SEE SECOND SHEET FOR SPECIFIC MEDICATIONS, PULSE CHECKS AND TIMES. ER DR. GUTIERREZ PRONOUNCED PT AT 0940, APPROXIMATELY 35 MIN OF CODE BLUE.
--- NOTE | 2022-01-24 10:30 | NUR ---
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 AFTER PROVIDING BASIC HISTORY, AGE, DIAGNOSIS, REPORT OF NO SX WITHIN 24 HRS, Dandre ROJAS STATED THAT PT IS NOT A TONYA'S CASE. RN ACKNOWLEDGED.
[2022-01-24] MEDS ORDERED: SODIUM BICARBONATE SYR 50 MEQ/50 ML DISP.SYRIN IV ONE (10:31)
[2022-01-24] MEDS ORDERED: CALCIUM CHLORIDE 1,000 MG/10 ML DISP.SYRIN IV ONE (10:31)
[2022-01-24] MEDS ORDERED: EPINEPHRINE (1:10,000) SYRINGE 1 MG/10 ML DISP.SYRIN IVP ONE (10:31)
--- NOTE | 2022-01-24 14:20 | NUR ---
RN NOTE MORTUARY SERVICE ARRIVEDCONNIE FROM [facility] IS COLLECTING REMAINS. FACE SHEET PROVIDED, REP SIGNED RECORD OF FORM.
--- NOTE | 2022-01-24 14:33 | NUR ---
RN NOTE [facility] RE[facility], FAMILY AND SECURITY.
[2022-01-24] MEDS ORDERED: ATROPINE SULFATE 1 MG/10 ML DISP.SYRIN IV ONE (15:24)
== END 2022-01-24 15:25 | DRG 870 ==
LOC: ICU 17:17 → TELE1 12-22 16:13 → ICU 12-26 16:29 → TELE-TD 12-30 18:10 → ICU 01-03 18:35 → TELE1 01-07 17:28 → TELE-TD 01-08 01:55 → TELE1 01-09 07:01 → TELE-TD 01-09 17:40 → ICU 01-11 18:52 → TELE-TD 01-16 09:41 → ICU 01-24 01:34
PROVIDERS: ADMIT Student in an Organized Health Care Education/Training Program; ATTEND Nurse Practitioner Family
PROC: 5A1955Z Respiratory Ventilation, Greater than 96 Consecutive Hours (ICD-10-PCS; principal; 2021-12-05)
PROC: 5A1D70Z Performance of Urinary Filtration, Intermittent, Less than 6 Hours Per Day (ICD-10-PCS; 2021-12-06)
PROC: 02HV33Z Insertion of Infusion Device into Superior Vena Cava, Percutaneous Approach (ICD-10-PCS; 2021-12-07)
PROC: B548ZZA Ultrasonography of Superior Vena Cava, Guidance (ICD-10-PCS; 2021-12-07)
PROC: 30233N1 Transfusion of Nonautologous Red Blood Cells into Peripheral Vein, Percutaneous Approach (ICD-10-PCS; 2021-12-21)
PROC: 05HD33Z Insertion of Infusion Device into Right Cephalic Vein, Percutaneous Approach (ICD-10-PCS; 2022-01-01)
PROC: 05H933Z Insertion of Infusion Device into Right Brachial Vein, Percutaneous Approach (ICD-10-PCS; 2022-01-10)
PROC: 02HV33Z Insertion of Infusion Device into Superior Vena Cava, Percutaneous Approach (ICD-10-PCS; 2022-01-10)
PROC: B548ZZA Ultrasonography of Superior Vena Cava, Guidance (ICD-10-PCS; 2022-01-10)
PROC: 05H633Z Insertion of Infusion Device into Left Subclavian Vein, Percutaneous Approach (ICD-10-PCS; 2022-01-22)
PROC: B547ZZA Ultrasonography of Left Subclavian Vein, Guidance (ICD-10-PCS; 2022-01-22)
PROC: 5A2204Z Restoration of Cardiac Rhythm, Single (ICD-10-PCS; 2022-01-24)
DX: A41.50 Gram-negative sepsis, unspecified (principal); L89.154 Pressure ulcer of sacral region, stage 4; N18.6 End stage renal disease; G93.41 Metabolic encephalopathy; I21.A1 Myocardial infarction type 2; R65.21 Severe sepsis with septic shock; I26.99 Other pulmonary embolism without acute cor pulmonale; J69.0 Pneumonitis due to inhalation of food and vomit; J96.21 Acute and chronic respiratory failure with hypoxia; J86.9 Pyothorax without fistula; J95.851 Ventilator associated pneumonia; A04.72 Enterocolitis due to Clostridium difficile, not specified as recurrent; D68.59 Other primary thrombophilia; M46.28 Osteomyelitis of vertebra, sacral and sacrococcygeal region; Z16.35 Resistance to multiple antimicrobial drugs; Z99.11 Dependence on respirator [ventilator] status; E44.0 Moderate protein-calorie malnutrition; G93.1 Anoxic brain damage, not elsewhere classified; E87.2 Acidosis; E27.40 Unspecified adrenocortical insufficiency; J90 Pleural effusion, not elsewhere classified; J98.11 Atelectasis; T82.41XA Breakdown (mechanical) of vascular dialysis catheter, initial encounter; G40.909 Epilepsy, unspecified, not intractable, without status epilepticus; E11.69 Type 2 diabetes mellitus with other specified complication; E83.39 Other disorders of phosphorus metabolism; E87.6 Hypokalemia; H40.9 Unspecified glaucoma; R13.10 Dysphagia, unspecified; I48.0 Paroxysmal atrial fibrillation; K21.9 Gastro-esophageal reflux disease without esophagitis; D63.8 Anemia in other chronic diseases classified elsewhere; Z93.0 Tracheostomy status; Z88.0 Allergy status to penicillin; Z93.1 Gastrostomy status; Z99.2 Dependence on renal dialysis; Z85.3 Personal history of malignant neoplasm of breast; Z86.73 Personal history of transient ischemic attack (TIA), and cerebral infarction without residual deficits; Y95 Nosocomial condition; E11.22 Type 2 diabetes mellitus with diabetic chronic kidney disease; Z74.09 Other reduced mobility; E86.1 Hypovolemia; E88.09 Other disorders of plasma-protein metabolism, not elsewhere classified; D69.6 Thrombocytopenia, unspecified; E11.43 Type 2 diabetes mellitus with diabetic autonomic (poly)neuropathy; K31.84 Gastroparesis; I12.9 Hypertensive chronic kidney disease with stage 1 through stage 4 chronic kidney disease, or unspecified chronic kidney disease; I70.0 Atherosclerosis of aorta; Y84.9 Medical procedure, unspecified as the cause of abnormal reaction of the patient, or of later complication, without mention of misadventure at the time of the procedure; Y92.89 Other specified places as the place of occurrence of the external cause; B37.9 Candidiasis, unspecified; M20.42 Other hammer toe(s) (acquired), left foot; M20.41 Other hammer toe(s) (acquired), right foot; L89.896 Pressure-induced deep tissue damage of other site; L89.616 Pressure-induced deep tissue damage of right heel; L89.216 Pressure-induced deep tissue damage of right hip; Z86.16 Personal history of COVID-19; B96.89 Other specified bacterial agents as the cause of diseases classified elsewhere; L89.120 Pressure ulcer of left upper back, unstageable; L98.9 Disorder of the skin and subcutaneous tissue, unspecified; I46.9 Cardiac arrest, cause unspecified; Z86.19 Personal history of other infectious and parasitic diseases; Y92.230 Patient room in hospital as the place of occurrence of the external cause; Y71.2 Prosthetic and other implants, materials and accessory cardiovascular devices associated with adverse incidents; Y84.8 Other medical procedures as the cause of abnormal reaction of the patient, or of later complication, without mention of misadventure at the time of the procedure; R33.9 Retention of urine, unspecified
CPT/HCPCS: 31720; 36410; 36415; 36569; 36600; 71045-TC; 74018; 80048-TC; 80053-TC; 80076-TC; 82140-TC; 82248-TC; 82272-TC; 82533; 82550-TC; 82803-TC; 82962-TC; 83605-TC; 83735-TC; 84100-TC; 84443-TC; 84484-TC; 85025-TC; 85610-TC; 85730-TC; 86706; 86850-TC; 87040-TC; 87070-TC; 87081-TC; 87186-TC; 87340; 90935-TC; 92950-TC; 93307-TC; 94003-TC; 94760-TC; 94762-TC; 94799-TC; 99082-TC; A4216; A4217; A4623; A6253; A6403; A7526; C9113; G0378; J0171; J0461; J0692; J0713; J0770; J0878; J0885; J1165; J1265; J1644; J1650; J1720; J1815; J2185; J2405; J2765; J2997; J3480; J3490; J7030; J7040; J7042; J7050; J7060; P9016; P9047